=== PATIENT | male | born 1950 | race Caucasian/White ===

== ENCOUNTER → 2022-10-07 08:53 | Outpatient (BNVA) | payer MEDICARE, SELFPAY | PROVIDERS: PCP Internal Medicine; Visit Provider Orthopaedic Surgery | DX: M54.50 Low back pain, unspecified (principal) | CPT/HCPCS: 99212 ==

== ENCOUNTER 2022-11-15 12:48 | Outpatient (AMB) | payer MEDICARE, SELFPAY ==
--- NOTE | 2022-11-15 13:08 | HO.SPINEOV ---
Intake Intake Visit Reasons: leg pain Intake Note: Mr. Thompson is here today c/o leg pain. MRI done @ [facility]. Supervisor Glycerin Required: No Allergies No Known Allergies Allergy (Verified 10/07/22 09:07) Assessment & Plan Assessment & Plan (1) Low back pain: Code(s): M54.50 - Low back pain, unspecified Plan Dear Dr Gutierres, Thank you for referring Mr Thompson to our office today. This is a very nice 72-year-old diabetic gentleman with heart transplant, complicated medical history including recent surgery on a nonhealing ulcer on his left foot with partial osteotomy, recent DVT on Eliquis who had a previous L4-5 decompression with Coflex device [place] [address] Mckeon. He had reasonably good results for about a year or more until in the last year so he started to develop progressive back pain going down both legs, left greater than right with standing and walking. He has an overlapping diagnosis of severe neuropathy both axonal and sensory in his upper lower extremities any has baseline bilateral footdrop as well as diffuse weakness of the legs. The pain that he gets going down his legs is distinctly different than his neuropathy and only occurs when he is standing and walking. A follow-up MRI showed that he has recurrent stenosis at L4-5 with spondylolisthesis and progression of/worsening of facet arthropathy at L4-5 despite the CoFlex device. He came today to see us for evaluation. The patient also reports numbness and neuropathy in his hands. He had a previous history of anterior cervical fusion done many years ago. He is also reporting worsening of the numbness of his hands as well as increased balance issues. PMH: As outlined above he is a fairly extensive history mostly relating to his diabetes, his A1c is currently around 9. He had recent debridement of nonhealing left foot ulcer which was infected. He was in the hospital on IV antibiotics for a few weeks, had the surgery and was subsequently discharged. He is no longer on antibiotics. He was diagnosed with a DVT in the left lower extremity back in August and remains on Eliquis for this. He has peripheral vascular disease and had an angioplasty back in August of 2022 as well. He had a previous history of coronary bypasses and heart attacks and that left him with significant dysfunction which ultimately led to his heart transplant at the [facility]. As mentioned he has had back surgery and neck surgery. He also has a history of hypertension. Social hx: Quit smoking in 1997 Medications: Amlodipine, Eliquis, duloxetine, fludrocortisone, gabapentin, insulin, lorazepam, mycophenolate, pantoprazole, prednisone, rosuvastatin, sucralfate, tack really miss and trazodone Allergies: None Physical exam: He has extensive weakness in his bilateral lower extremities. His left iliopsoas is about a 2/5, right iliopsoas is 3/5. Quadriceps are 4-5. He has no discernible function of his tibialis source gastrocnemius. Reflexes diffusely absent lower extremities. In his upper extremities he also has diffuse weakness in the proximal muscle groups in significant hand weakness which I would rate is 3/5 with atrophy of his hands. Imaging review: He has a lumbar MRI done at [facility] showing postoperative changes at L4-5 with significant facet arthropathy and degenerative spondylolisthesis with moderate to severe central canal stenosis. Impression: 72-year-old gentleman with complicated medical history including uncontrolled diabetes, heart transplant, significant diabetic neuropathies in the upper and lower extremities, previous L4-5 decompression with a Coflex device which appears to be failing and headache in their direction of instability based on the MRI showing increased facet arthropathy with ongoing spondylolisthesis with a patient who is demonstrating significant back pain going down both legs, left greater than right with standing and walking. His situation is difficult because of his medical issues. The nonhealing ulcer which was recently debrided is a concern given that any surgery we would consider would likely involve spinal fusion with instrumentation. He was recently in the hospital on IV antibiotics for this so we would like to give this some time to heal up before we consider offering surgery. He would also need to have some kind of medical clearance from his cardiac team at the [facility]. Also, he is complaining of some myelopathic symptoms and has significant weakness of his hands with a new feelings of gait imbalance. He has a previous history of ACDF so would like to get a cervical MRI to rule out that there is any residual stenosis. We will see him back in about 6 weeks to re-evaluate after the MRI is done. I will also get standing flexion-extension x-rays. Dr. Copeland saw the patient and agrees with the plan as outlined above. Thank you for allowing us to care for your patient. The total time spent with this visit with this patient was 60 minutes reviewing history, physical exam, lumbar MRI imaging review, and implementation of treatment plan or further diagnostic testing Abraham Copeland MD,PhD [facility] Orders: Orders XR lumbar spine 4V min Today M54.50 - Low back pain, unspecified Coding Level of Care Code New Pt Level 5 (50697) Diagnoses Low back pain M54.50
== END 2022-11-15 13:59 | disposition home or self-care (01) ==
PROVIDERS: PCP Internal Medicine; Visit Provider Physician Assistant
DX: M54.50 Low back pain, unspecified (principal)
CPT/HCPCS: 99205

== ENCOUNTER 2022-11-15 12:48 | Outpatient (REF) | payer MEDICARE, SELFPAY ==
--- NOTE | ~2022-11-15 | XR_ITS ---
EXAMINATION: XR LUMBOSACRAL SPINE WITH OBLIQUES CLINICAL INFORMATION: Low back pain COMPARISON: None available. TECHNIQUE: AP, and lateral views of the lumbar spine, flexion and extension. FINDINGS: Patient is status post placement of fixation device between spinal processes of L4 on L5. There is straightening of lumbar lordosis with grade 1 anterior listhesis of L4 over L5 and narrowing of T12-L1. On flexion and extension views there is no instability. Pedicles are preserved. Soft tissues are unremarkable. XR/XR lumbar spine 4V min IMPRESSION: Postsurgical changes at the level of L4-L5 with grade 1 anterolisthesis of L4 over L5.
== END 2022-11-15 12:49 | disposition home or self-care (01) ==
LOC: HO.HOSX 12:48
PROVIDERS: PCP Internal Medicine; Visit Provider Physician Assistant
DX: M54.50 Low back pain, unspecified (principal)
CPT/HCPCS: 72110; 99202

== ENCOUNTER 2022-12-23 13:41 | Outpatient (REF) | payer MEDICARE, SELFPAY ==
--- NOTE | ~2022-12-23 | MR_ITS ---
EXAMINATION: MR CERVICAL SPINE WITHOUT AND WITH CONTRAST CLINICAL INFORMATION: Neuropathy in hands and legs, neck cracks, symptoms for couple of years. COMPARISON: None available. TECHNIQUE: MRI of the cervical spine was obtained using routine sequences with and without contrast. Intravenous contrast: Gadavist 10 mL. FINDINGS: The visualized posterior fossa is unremarkable. Preservation of the normal cervical lordosis. Trace retrolisthesis at C6-C7 and minimal grade 1 anterolisthesis at C4-C5. Sequelae of anterior spinal fixation at C3-C4 with associated susceptibility artifact slightly limiting evaluation. No abnormal bone marrow signal or enhancement. The remaining vertebral body heights are preserved. Multilevel disc desiccation without significant disc height loss. The spinal cord is normal in caliber. No abnormal cord signal. No intramedullary enhancement. C2-C3: Disc osteophyte complex and bilateral facet arthrosis. No significant spinal canal or neural foraminal narrowing. C3-C4: Disc osteophyte complex, bilateral uncovertebral hypertrophy, and bilateral facet arthrosis. Mild left neural foraminal narrowing. Patent spinal canal. C4-C5: Disc osteophyte complex, bilateral uncovertebral hypertrophy, and bilateral facet arthrosis. No significant spinal canal stenosis. Mild right neural foraminal narrowing. C5-C6: Disc osteophyte complex with superimposed central disc protrusion with mass effect on the cord. No significant spinal canal stenosis or neural foraminal narrowing. C6-C7: Disc osteophyte complex, bilateral uncovertebral hypertrophy, and bilateral facet arthrosis. No significant spinal canal stenosis. Mild left neural foraminal narrowing. C7-T1: No significant spinal canal or neural foraminal narrowing. The paravertebral soft tissues are unremarkable. The visualized lung apices are clear. MR/MR cervical spine wo/w con IMPRESSION: Sequelae of C3-C4 ACDF with patent spinal canal at this level. There is a disc osteophyte complex at C5-C6 with central disc protrusion causing mass effect on the cord at this level. Mild neural foraminal narrowing is identified at C3-C4 and the left, C4-C5 on the right, and C6-C7 on the left.
[2022-12-23] MEDS: gadobutroL 10 ML VIAL IVPUSH (15:18)
== END 2022-12-23 13:42 | disposition home or self-care (01) ==
LOC: HO.MRI 13:41
PROVIDERS: PCP Internal Medicine; Visit Provider Physician Assistant
DX: G95.9 Disease of spinal cord, unspecified (principal)
CPT/HCPCS: 72156; A9585

== ENCOUNTER 2022-12-27 13:27 | Outpatient (AMB) | payer MEDICARE, SELFPAY ==
--- NOTE | 2022-12-27 13:34 | A.SPINEOV_ITS ---
Intake Intake Visit Reasons: 6 weeks f/up MRI Intake Note: Mr. Thompson is here today for a 6wk follow up and discuss MRI results. Allergist Required: No Allergies No Known Allergies Allergy (Verified 10/07/22 09:07) Assessment & Plan Assessment & Plan (1) Low back pain: Code(s): M54.50 - Low back pain, unspecified (2) Lumbar stenosis: Code(s): M48.061 - Spinal stenosis, lumbar region without neurogenic claudication Plan Mr Thompson is here in follow-up today. Please see my previous note for the specifics of his problem. He underwent a cervical MRI and this is not show any residual spinal cord compression so we have ruled out myelopathy. In terms of his gait and difficulty standing and walking with neurogenic symptoms going down his legs, we have established that he has residual stenosis at L4-5 despite the CoFlex device and his x-ray shows suggestions of instability with standing. Typically this is a patient that Dr. Copeland would offer intervention, usually L4-5 OLIF versus trans Kambin approach. However, I have reservations about his medical history. Since the last time we met, he tells me that he has been cleared from the vascular surgery standpoint with the nonhealing ulcer on his left foot. I looked at it today and it does look for the part most part healed. There are no signs of infection, redness or any pain around the area. With regard to the DVT and the Eliquis, he tells me that his PCP Dr. Chen has taken him off Eliquis because he has been treated for 3 months for the DVT. The only blood thinner he is currently on his Plavix, and he is on that for preventative purposes for his peripheral vascular disease. He did have an angioplasty back in August but did not have a stent. I told him that in order for us to do surgery he would have to be off that 7-10 days as well as a period of time after surgery. Obviously, we would keep him on his heart transplant medicines, so this would potentially increase his risk for infection. I will need to discuss the situation with Dr. Copeland again to see if he is willing to take on this case given all the peripheral medical issues. Once I hear back from Dr. Copeland and have a chance to review the films I will call the patient to finalize a plan. Total amount of time spent in this visit was 20 minutes in discussion of symptoms, lumbar imaging results and subsequent plan of care Abraham Copeland MD,PhD [facility] Coding Level of Care Code Est Pt Level 3 (80343) Diagnoses Low back pain M54.50 Lumbar stenosis M48.061
== END 2022-12-27 14:46 | disposition home or self-care (01) ==
PROVIDERS: PCP Internal Medicine; Visit Provider Physician Assistant
DX: M54.50 Low back pain, unspecified (principal); M48.061 Spinal stenosis, lumbar region without neurogenic claudication
CPT/HCPCS: 99213

== ENCOUNTER → 2022-12-27 13:27 | Outpatient (BNVA) | payer MEDICARE, SELFPAY | PROVIDERS: PCP Internal Medicine; Visit Provider Physician Assistant | DX: M48.061 Spinal stenosis, lumbar region without neurogenic claudication (principal); M54.50 Low back pain, unspecified | CPT/HCPCS: 99212 ==

== ENCOUNTER 2023-01-06 10:58 | Outpatient (REF) | payer MEDICARE, SELFPAY ==
[2023-01-06 12:15] LABS: Estimated Average Glucose 137 mg/dL; Hemoglobin A1C 129.8015 umol/L; Hemoglobin A1c % 6.4 % (<6.0)
== END 2023-01-06 10:59 | disposition home or self-care (01) ==
LOC: HO.LAB 10:58
PROVIDERS: PCP Internal Medicine; Visit Provider Physician Assistant
DX: E11.9 Type 2 diabetes mellitus without complications (principal)
CPT/HCPCS: 36415; 83036

== ENCOUNTER 2023-01-27 07:35 | Outpatient (AMB) | payer MEDICARE, SELFPAY ==
--- NOTE | 2023-01-27 07:49 | MHC.OFFVIS ---
Intake Intake Visit Reasons: Pre-Rt Shld Intake Note: Mr. Thompson presents with complaints of progressively worsening right shoulder pain. He describes his pain as sharp in nature. He denies any weakness. Most of the pain is along the lateral and superior aspects of his shoulder. His pain has gotten worse over the last few years in spite of continued non operative treatments. He has done physical therapy for 12 weeks over the last 6 months which aggravated his pain. He has also tried Tylenol which gives him minimal relief. He is not able to take anti-inflammatory medicines. He has had injections which gave him only temporary relief. Allergies No Known Allergies Allergy (Verified 10/07/22 09:07) Medication List - Last Reconciled 01/27/23 by Nirmal Gutierres MD amlodipine 5 mg PO DAILY apixaban (Eliquis) 5 mg PO BID duloxetine 20 mg PO BID fludrocortisone 0.1 mg PO DAILY gabapentin 300 mg PO TID insulin lispro (Humalog U-100 Insulin) subcut lorazepam (Ativan) 1 mg PO TID PRN mycophenolate sodium 720 mg PO BID pantoprazole 40 mg PO BID pen needle, diabetic (BD Ultra-Fine Short Pen Needle) As directed prednisone 5 mg PO DAILY rosuvastatin 20 mg PO BEDTIME sucralfate 1 g PO BID tacrolimus 2 mg PO BID trazodone 200 mg PO BEDTIME PRN PFSH Medical History (Updated 01/27/23 @ 07:49 by Nirmal Gutierres MD) Hx of deep venous thrombosis Immune disorder High cholesterol High blood pressure Acid reflux Surgical History (Updated 10/07/22 @ 09:10 by PEARL Bates) Hx of heart transplant Social History (Updated 10/07/22 @ 09:11 by PEARL Bates) Current occupational status: disabled 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 Physical Exam Const Other: Well-nourished well-developed very friendly male awake alert and oriented x3 in no acute distress Lungs - clear to auscultation bilaterally with symmetric expansion Cardiovascular exam - regular rate and rhythm Abdominal exam - soft nontender nondistended Extrem Other: Bilateral upper extremity examination shows good capillary refill, no skin lesions noted, normal sensation light touch Right shoulder examination shows decreased range of motion when compared to his left shoulder, 4+ out of 5 strength with supraspinatus testing, positive impingement signs, tenderness over his acromioclavicular joint, no instability Results Reviewed Results Reviewed: X-rays of the patient's right shoulder show severe acromioclavicular joint narrowing, a type 3 acromion, no acute bony abnormalities MRI of the patient's right shoulder show severe acromioclavicular joint narrowing, a type 3 acromion, signal change within the supraspinatus tendon due to rotator cuff tendinosis versus a small full-thickness tear Assessment & Plan Assessment & Plan (1) Impingement of right shoulder: Code(s): M25.811 - Other specified joint disorders, right shoulder Plan Mr. Thompson presents with right shoulder pain due to impingement syndrome, acromioclavicular joint arthritis and rotator cuff tendinosis versus a small tear. I had a lengthy discussion with the patient regarding the treatment options. At this point he has failed continued non operative treatments. The risks and benefits of right shoulder surgery were discussed at length with the patient. The patient wishes to proceed with surgery. Surgery will most likely involve right shoulder diagnostic arthroscopy with distal clavicle excision and acromioplasty. The patient will be given a prescription for pain medicine at the time of his surgery. He will follow-up as instructed. Feel free to call me at any time should questions regarding his orthopedic management arise. I spent 22 minutes in reviewing the patient's records and imaging studies, seeing the patient and documenting in the medical record. Coding Level of Care Code Est Pt Level 2 (85909) Diagnoses Impingement of right shoulder M25.811
== END 2023-01-27 08:01 | disposition home or self-care (01) ==
PROVIDERS: PCP Internal Medicine; Visit Provider Orthopaedic Surgery
DX: M25.811 Other specified joint disorders, right shoulder (principal)
CPT/HCPCS: 99212

== ENCOUNTER → 2023-01-27 07:35 | Outpatient (BNVA) | payer MEDICARE, SELFPAY | PROVIDERS: PCP Internal Medicine; Visit Provider Orthopaedic Surgery | DX: M25.811 Other specified joint disorders, right shoulder (principal) | CPT/HCPCS: 99212 ==

== ENCOUNTER 2023-02-13 06:07 | Day surgery (SDC) | payer MEDICARE, SELFPAY ==
[2023-02-07 11:25] VITALS: BMI 33.2
--- NOTE | 2023-02-07 13:27 | P.CONAN_ITS ---
Documented by User: Maribell Nielsen NP 02/08/23 13:15 HPI - Anesthesia Eval Consult details Narrative: 72yo M for Right Shoulder Arthroscopy,distal clavical excision,acromialplasty,capsular release manipulation Heart transplant 2012 for ischemic cardiomyopathy. Cardiac optimized. Prednisone 5mg daily, prograf, myfortid for immunsuppression. Last cardiology office visit 11/2022. Cardiac stable. Low Mg, started on supplement. Follows vascular for LLE DVT and bilat LE wounds. Per , DVT resolved and off eliquis and LE wounds healed. Plavix for hx LLE DVT 08/2022 - ok to hold per cardiology Case reviewed with Dr Jordan and Dr Arreguin Anesthesia Pre-Procedure Meds Is the patient on any of the following meds?: Dulaglutide (Trulicity) (Last dose 02/05/23) PMFSH Active Problems Active Problems: All Active Problems (Updated 02/07/23 @ 11:41 by Alicia Donato RN) Impingement of right shoulder (Acute) Diabetes (Acute) Lumbar stenosis (Acute) Low back pain (Acute) Past Medical History Medical History (Updated 02/08/23 @ 13:14 by Maribell Nielsen NP) Cataract Amputation of toe Hx of thrombosis History of positive PPD Erosive gastropathy Colon polyp Erectile dysfunction Microscopic hematuria Immunosuppressed status Unsteady gait Ischemic cardiomyopathy DAY (generalized anxiety disorder) Dyslipidemia CHD (congenital heart disease) Amputated toe of left foot Chronic kidney disease Sleep apnea Headache Left foot drop Back pain Depression Osteopenia Dry eye Tremor Dysautonomia Insomnia Neck pain Presbyesophagus Esophageal dysmotility BPH (benign prostatic hyperplasia) Hyperparathyroidism Guillain-Kyburz syndrome Leukopenia Back pain Neuropathy PVD (peripheral vascular disease) Myocardial infarction Cellulitis History of COVID-19 Hx MRSA infection Diabetes Hx of deep venous thrombosis Immune disorder High cholesterol High blood pressure Acid reflux Surgical History Surgical History (Updated 02/08/23 @ 13:14 by Maribell Nielsen NP) Hx of squamous cell carcinoma excision Hx of cataract surgery Status post arterial stent History of esophagogastroduodenoscopy (EGD) H/O angioplasty AICD (automatic cardioverter/defibrillator) present History of lumbar fusion Hx of cervical spine surgery History of left ventricular assist device (LVAD) Hx of CABG Hx of heart transplant Social History Social History (Updated 10/07/22 @ 09:11 by PEARL Bates) Are you a primary rn progressive care unit to a significant other at home: No Do you presently have visiting nurse or other home services: No Patient Tobacco Use Status: Never used Tobacco Use of substances other than those prescribed or required for medical reasons: No Have you been hit, kicked, punched, or otherwise hurt by someone within the past year? 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 Meds Allergies Allergy/AdvReac Type Severity Reaction Status Date / Time No Known Allergies Allergy Verified 10/07/22 09:07 Active Medications: Current Medications Cefazolin Sodium/Dextrose (Ancef) 2 gm in 50 mls @ 100 mls/hr IV PREOP ONE Stop: 02/10/23 00:30 Home Medications Medication Instructions Recorded Confirmed Last Taken Type amlodipine 5 mg tablet 10 mg PO DAILY 10/07/22 02/07/23 02/13/23 History duloxetine 20 mg capsule,delayed 40 mg PO BEDTIME 10/07/22 02/07/23 Unknown History release fludrocortisone 0.1 mg tablet 0.1 mg PO DAILY 10/07/22 02/07/23 02/13/23 History gabapentin 300 mg capsule 300 mg PO TID 10/07/22 02/07/23 02/13/23 History insulin lispro 100 unit/mL subcut TID 10/07/22 01/27/23 Unknown History subcutaneous cartridge (Humalog U-100 Insulin) mycophenolate sodium 360 mg 360 mg PO BID 10/07/22 02/07/23 02/13/23 History tablet,delayed release pantoprazole 40 mg tablet,delayed 40 mg PO BID 10/07/22 02/07/23 02/13/23 History release pen needle, diabetic 31 gauge x #1,200 ea 10/07/22 01/27/23 Unknown History /16 (BD Ultra-Fine Short Pen Needle) prednisone 5 mg tablet 5 mg PO DAILY 10/07/22 02/07/23 02/13/23 History rosuvastatin 20 mg tablet 20 mg PO BEDTIME 10/07/22 02/07/23 Unknown History tacrolimus 1 mg capsule, 2 mg PO BID 10/07/22 02/07/23 Unknown History immediate-release trazodone 100 mg tablet 200 mg PO BEDTIME PRN Insomnia 10/07/22 02/07/23 Unknown History aspirin 81 mg tablet,delayed 81 mg PO DAILY 02/07/23 02/07/23 Unknown History release clopidogrel 75 mg tablet 75 mg PO DAILY 02/07/23 02/07/23 02/12/23 History dulaglutide 1.5 mg/0.5 mL 1.5 mg subcut QWEEK 02/07/23 02/07/23 02/05/23 History subcutaneous pen injector (Trulicity) insulin degludec 200 unit/mL (3 40 unit subcut BID 02/07/23 02/07/23 Unknown History mL) subcutaneous pen (Tresiba FlexTouch U-200 insulin) tacrolimus 0.5 mg capsule, 0.5 mg PO BEDTIME 02/07/23 02/07/23 02/13/23 History immediate-release valsartan 02/13/23 02/13/23 History Exam Exam Date and Time: February 07, 2023 1327 Height,Weight and Vital Signs: Height 5 ft 9 in Weight 102.058 kg Pertinent Lab Results Pertinent Lab Results: Labs from outside facility 11/28/22 Na 144 K 3.6 Cl 101 CO2 31 Bun 20 Creat 1.23 (H) Mg 1.5 (L) WBC 6.58 Hgb 11.6 (L) Hct 36.4 (L) Plt 151 A1C 6.6 on 01/16/23 per Endocrine office visit note Narrative Narrative: ECHO 12/2022 Nml LV size and systolic function. LVEF 60% Nml RV size and systolic function Unable to estimate PASP d/t insufficient tricuspid regurg EKG 11/2022 NSR @ 91 RBBB No significant change c/w 05/2022 Cardiac cath 2020 No significant angiographic epicardial coronary disease Mild paucity of LAD tertiary vessels with dimished flow velocity in the LAD during coronary angiography. There were transient ST segment elevations during the left coronary injections without any patient complaints of chest or back discomfort nor change in heart rate or blood pressure. Assessment and Plan Assessment Anesthesia Assessment: Chart Reviewed Documented by User: Kamar Diaz MD 02/13/23 09:33 HPI - Anesthesia Eval Anesthesia Pre-Procedure Meds If Yes to any meds - educate patient: Pt education - increased risk of aspiration PMFSH Past Medical History Medical History (Updated 02/08/23 @ 13:14 by Maribell Nielsen NP) Cataract Amputation of toe Hx of thrombosis History of positive PPD Erosive gastropathy Colon polyp Erectile dysfunction Microscopic hematuria Immunosuppressed status Unsteady gait Ischemic cardiomyopathy DAY (generalized anxiety disorder) Dyslipidemia CHD (congenital heart disease) Amputated toe of left foot Chronic kidney disease Sleep apnea Headache Left foot drop Back pain Depression Osteopenia Dry eye Tremor Dysautonomia Insomnia Neck pain Presbyesophagus Esophageal dysmotility BPH (benign prostatic hyperplasia) Hyperparathyroidism Guillain-Kyburz syndrome Leukopenia Back pain Neuropathy PVD (peripheral vascular disease) Myocardial infarction Cellulitis History of COVID-19 Hx MRSA infection Diabetes Hx of deep venous thrombosis Immune disorder High cholesterol High blood pressure Acid reflux Family History Family history of problems with anesthesia: No Surgical History Surgical History (Updated 02/08/23 @ 13:14 by Maribell Nielsen NP) Hx of squamous cell carcinoma excision Hx of cataract surgery Status post arterial stent History of esophagogastroduodenoscopy (EGD) H/O angioplasty AICD (automatic cardioverter/defibrillator) present History of lumbar fusion Hx of cervical spine surgery History of left ventricular assist device (LVAD) Hx of CABG Hx of heart transplant History of Problems with Anesthesia: No Social History Social History (Updated 10/07/22 @ 09:11 by PEARL Bates) Are you a primary rn progressive care unit to a significant other at home: No Do you presently have visiting nurse or other home services: No Patient Tobacco Use Status: Never used Tobacco Use of substances other than those prescribed or required for medical reasons: No Have you been hit, kicked, punched, or otherwise hurt by someone within the past year? 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 Meds Allergies Allergy/AdvReac Type Severity Reaction Status Date / Time No Known Allergies Allergy Verified 10/07/22 09:07 Home Medications Medication Instructions Recorded Confirmed Last Taken Type amlodipine 5 mg tablet 10 mg PO DAILY 10/07/22 02/07/23 02/13/23 History duloxetine 20 mg capsule,delayed 40 mg PO BEDTIME 10/07/22 02/07/23 Unknown History release fludrocortisone 0.1 mg tablet 0.1 mg PO DAILY 10/07/22 02/07/23 02/13/23 History gabapentin 300 mg capsule 300 mg PO TID 10/07/22 02/07/23 02/13/23 History insulin lispro 100 unit/mL subcut TID 10/07/22 01/27/23 Unknown History subcutaneous cartridge (Humalog U-100 Insulin) mycophenolate sodium 360 mg 360 mg PO BID 10/07/22 02/07/23 02/13/23 History tablet,delayed release pantoprazole 40 mg tablet,delayed 40 mg PO BID 10/07/22 02/07/23 02/13/23 History release pen needle, diabetic 31 gauge x #1,200 ea 10/07/22 01/27/23 Unknown History 5/16 (BD Ultra-Fine Short Pen Needle) prednisone 5 mg tablet 5 mg PO DAILY 10/07/22 02/07/23 02/13/23 History rosuvastatin 20 mg tablet 20 mg PO BEDTIME 10/07/22 02/07/23 Unknown History tacrolimus 1 mg capsule, 2 mg PO BID 10/07/22 02/07/23 Unknown History immediate-release trazodone 100 mg tablet 200 mg PO BEDTIME PRN Insomnia 10/07/22 02/07/23 Unknown History aspirin 81 mg tablet,delayed 81 mg PO DAILY 02/07/23 02/07/23 Unknown History release clopidogrel 75 mg tablet 75 mg PO DAILY 02/07/23 02/07/23 02/12/23 History dulaglutide 1.5 mg/0.5 mL 1.5 mg subcut QWEEK 1002/07/23 02/05/23 History subcutaneous pen injector (Trulicity) insulin degludec 200 unit/mL (3 40 unit subcut BID 02/07/23 02/07/23 Unknown History mL) subcutaneous pen (Tresiba FlexTouch U-200 insulin) tacrolimus 0.5 mg capsule, 0.5 mg PO BEDTIME 02/07/23 02/07/23 02/13/23 History immediate-release valsartan 02/13/23 02/13/23 History Exam Airway Mallampati Class: II TM Dist: <=3cm Neck ROM: Full Denture: Upper and Lower Heart: ok. see above Lungs: ok Assessment and Plan Assessment Anesthesia Assessment: Anesthesia Plan Discussed Final Anesthetic Review Family History of Problems with Anesthesia: No History of Problems with Anesthesia: No NPO: Yes ASA Class: IV Final Preanesthetic Review: No Changes in Pt Med Stat, Meds/Allgs Chart Reviewed, Consent Obtained/Reviewed and Anes Risks/Benef Reviewed Patient Risk: High Procedure Risk: Intermediate Anesthetic Plan Anesthetic Plan: GA, Regional Block and Agree w/ Assess. and Plan Disposition: Standard PACU
[2023-02-13] VITALS (13 sets, daily range): BP systolic 109–156; BP diastolic 58–88; PULSE 84–96; RESP 15–18; TEMP 36.2–37.1; O2SAT 92–98
[2023-02-13 06:33] LABS: Hematocrit 39.4 % (42.0-52.0); Hemoglobin 12.5 g/dl (14.0-18.0); Mean Corpuscular HGB Conc 31.7 g/dl (31.0-36.0); Mean Corpuscular Hemoglobin 26.5 pg (27.0-33.0); Mean Corpuscular Volume 83.5 fL (80.0-98.0); Mean Platelet Volume 9.2 fL (9.4-12.4); Platelet Count 149 X10*3/uL (160-400); Red Blood Count 4.72 X10*6/uL (4.60-5.80); Red Cell Distribution Width 15.7 % (11.0-16.0); White Blood Count 6.3 X10*3/uL (4.8-10.8)
[2023-02-13 06:51] LABS: Anion Gap 15 (12-20); Blood Urea Nitrogen 17 mg/dL (9-16); Calcium 9.1 mg/dL (8.4-10.2); Carbon Dioxide 31 mmol/L (22-29); Chloride 102 mmol/L (96-108); Creatinine Clr Calc Pharmacy 68.7; Estimated Glomerular Filt Rate > 60; Glucose Fasting 118 mg/dL (60-99); Potassium 3.3 mmol/L (3.3-5.1); Sodium 145 mmol/L (135-145)
[2023-02-13] MEDS: Lactated Ringers 1,000 ML 100 ML IVCONT (06:51)
--- NOTE | 2023-02-13 09:46 | P.BOP_ITS ---
Brief Operative Note Date of Service: 02/13/23 Pre-op diagnosis: Right shoulder acromioclavicular joint arthritis, right shoulder impingement syndrome, right shoulder adhesive capsulitis Post-op diagnosis: same Procedure: Right shoulder diagnostic arthroscopy with right shoulder arthroscopic distal clavicle excision, right shoulder arthroscopic acromioplasty, right shoulder arthroscopic anterior capsular release, right shoulder manipulation under anesthesia Implants: none Surgeon: Nirmal Gutierres MD Anesthesia: GLMA and regional Was an Destination Specialist used for this Procedure?: No Estimated blood loss (mL): 10 Pathology: none sent Condition: stable Disposition: PACU
--- NOTE | 2023-02-13 09:48 | P.OP_ITS ---
Operative Note Operative Note Date of Service: 02/13/23 Narrative: After the patient was identified as Tony Thompson and their right shoulder was initialed by myself the patient was brought to the holding area where a right shoulder interscalene regional block was performed by the anesthesiologist in routine fashion. The patient was then brought to the operating room where general anesthesia was induced by the anesthesiologist in routine fashion. The patient was given 2 g of IV Ancef preoperatively for infection prophylaxis. Examination under anesthesia of the patient's right shoulder showed decreased passive range of motion when compared to the left shoulder. The patient's right shoulder had passive forward flexion to 110 degrees compared to 170 degrees, external rotation to 30 degrees compared to 60 degrees, and internal rotation to 40 degrees compared to 50 degrees. The patient was gently positioned in the beach chair position with all bony prominences well padded. The patient's right shoulder region and upper extremity were prepped and draped in sterile fashion. A formal time-out was completed. A #11 scalpel blade was used to make a posterior portal 2 cm inferior and 1 cm medial to the posterolateral corner of the acromion. Blunt trocar technique was used to enter the glenohumeral joint in routine fashion. An anterior portal was made just lateral to the coracoid process after proper positioning was confirmed using a spinal needle. Diagnostic arthroscopy showed minimal degenerative changes of the glenoid and humeral head articular surfaces. There was no evidence of rotator cuff tearing. There was no evidence of injury to the biceps tendon or its insertion onto the glenoid. There was inflammation of the anterior joint capsule consistent with adhesive capsulitis. The ArthroCare Wand was then used to perform an anterior capsular release between the inferior border of the biceps tendon and the superior border of the subscapularis tendon. The arthroscope was then placed from the posterior portal into the subacromial space. A lateral portal was made 2 fingerbreadths lateral to the anterior lateral corner of the acromion. The ArthroCare Wand was used to ablate soft tissues along the undersurface of the acromion as well as to excise the coracoacromial ligament. There was a sharp spur along the undersurface of the acromion which was removed using the hooded bur. The arthroscope was then placed into the lateral portal and the acromiop lasty was completed with the bur in the posterior portal using the posterior aspect of the acromion as a cutting block. The ArthroCare Wand was then brought in through the anterior portal and was used to ablate soft tissues along the acromioclavicular joint and distal clavicle. The posterior and superior ligamentous structures were left intact. A distal clavicle excision of 8 mm was performed using the fluted bur. Any remaining bursal tissue was removed using the arthroscopic shaver. The subacromial space was irrigated and then drained. All arthroscopic instruments were removed. A gentle manipulation under anesthesia was then performed. Full passive range of motion was easily obtained. The 3 portals were closed with 3-0 nylon interrupted suture. The subacromial space was injected with Marcaine. Dry sterile dressing was placed over all incisions. The patient's right upper extremity was placed into a sling. The patient was awoken and extubated in the operating room. The patient was transferred to the recovery room in stable condition.
[2023-02-13] MEDS: cefTRIAXone sodium 1 GM in 0.9 % Sodium Chloride 50 ML IV (10:58)
== END 2023-02-13 13:58 | disposition home or self-care (01) ==
PROVIDERS: Anesthesiology; PCP Internal Medicine; Visit Provider Orthopaedic Surgery
PROC: (CPT 29805; principal; 2023-02-13 07:30)
DX: M75.01 Adhesive capsulitis of right shoulder (principal); M19.011 Primary osteoarthritis, right shoulder; M75.41 Impingement syndrome of right shoulder; E11.22 Type 2 diabetes mellitus with diabetic chronic kidney disease; I13.0 Hypertensive heart and chronic kidney disease with heart failure and stage 1 through stage 4 chronic kidney disease, or unspecified chronic kidney disease; N18.30 Chronic kidney disease, stage 3 unspecified; I50.9 Heart failure, unspecified; E78.5 Hyperlipidemia, unspecified; G47.30 Sleep apnea, unspecified; K21.9 Gastro-esophageal reflux disease without esophagitis; I25.2 Old myocardial infarction; Z95.1 Presence of aortocoronary bypass graft; Z95.810 Presence of automatic (implantable) cardiac defibrillator; Z86.718 Personal history of other venous thrombosis and embolism; Z86.14 Personal history of Methicillin resistant Staphylococcus aureus infection; Z79.01 Long term (current) use of anticoagulants; Z79.4 Long term (current) use of insulin; Z79.899 Other long term (current) drug therapy; Z79.82 Long term (current) use of aspirin
CPT/HCPCS: 29824; 29825; 29826; 36415; 80048; 85027; J0171; J0690; J0696; J2371; J2795; J3010

== ENCOUNTER → 2023-02-13 06:07 | Outpatient (BNV) | payer MEDICARE, SELFPAY | PROVIDERS: PCP Internal Medicine; Visit Provider Orthopaedic Surgery | DX: M75.41 Impingement syndrome of right shoulder (principal) | CPT/HCPCS: 29824; 29825; 29826 ==

== ENCOUNTER 2023-02-23 11:57 | Outpatient (REF) | payer MEDICARE, SELFPAY ==
--- NOTE | ~2023-02-23 | XR_ITS ---
EXAMINATION: XR SHOULDER, RIGHT CLINICAL INFORMATION: Pain in right shoulder COMPARISON: None available. TECHNIQUE: AP and transscapular Y views only of the right shoulder. FINDINGS: Widening of the acromioclavicular interval measuring 15 mm. There are is mild hypertrophic change at the acromioclavicular joint. Glenohumeral alignment is preserved. Faint calcification lateral to the acromion. Dextroscoliosis in the imaged upper thoracic spine with degenerative changes. 2 punctate radiodensities in the upper right paramediastinal region, possibly external to the patient of indeterminate etiology. Dedicated views of the chest recommended for further evaluation. XR/XR shoulder RT min 2V IMPRESSION: Degenerative changes right shoulder. 2 punctate radiodensities in the upper right paramediastinal region, possibly external to the patient of indeterminate etiology. Dedicated views of the chest recommended for further evaluation.
== END 2023-02-23 11:58 | disposition home or self-care (01) ==
LOC: HO.HOSX 11:57
PROVIDERS: Visit Provider Orthopaedic Surgery
DX: M25.511 Pain in right shoulder (principal); Z47.89 Encounter for other orthopedic aftercare; Z79.899 Other long term (current) drug therapy; Z98.890 Other specified postprocedural states
CPT/HCPCS: 73030; 99212

== ENCOUNTER 2023-02-23 12:51 | Outpatient (AMB) | payer MEDICARE, SELFPAY ==
--- NOTE | 2023-02-23 12:55 | MHC.OFFVIS ---
Intake Intake Visit Reasons: PO-Rt Shld 02/13 DR Intake Note: Tony 72 yr old male presents today for his P/O visit for his right shoulder from DOS 02/[address] Gutierres. States he has mild pain and discomfort. He denies any fevers or chills. He continues with his range of motion exercises. Allergies No Known Allergies Allergy (Verified 02/23/23 13:04) Medication List - Last Reconciled 02/23/23 by Nirmal Gutierres MD amlodipine 10 mg PO DAILY aspirin 81 mg PO DAILY clopidogrel 75 mg PO DAILY dulaglutide (Trulicity) 1.5 mg subcut QWEEK duloxetine 40 mg PO BEDTIME fludrocortisone 0.1 mg PO DAILY gabapentin 300 mg PO TID insulin degludec (Tresiba FlexTouch U-200 insulin) 40 units subcut BID insulin lispro (Humalog U-100 Insulin) subcut TID morphine ER (MS Contin) 15 mg PO Q12H mycophenolate sodium 360 mg PO BID oxycodone 10 mg (2 x 5 mg) PO Q4H PRN pantoprazole 40 mg PO BID pen needle, diabetic (BD Ultra-Fine Short Pen Needle) As directed prednisone 5 mg PO DAILY rosuvastatin 20 mg PO BEDTIME tacrolimus 0.5 mg PO BEDTIME tacrolimus 2 mg PO BID trazodone 200 mg PO BEDTIME PRN [valsartan ] PFSH Medical History Cataract Amputation of toe Hx of thrombosis History of positive PPD Erosive gastropathy Colon polyp Erectile dysfunction Microscopic hematuria Immunosuppressed status Unsteady gait Ischemic cardiomyopathy DAY (generalized anxiety disorder) Dyslipidemia CHD (congenital heart disease) Amputated toe of left foot Chronic kidney disease Sleep apnea Headache Left foot drop Back pain Depression Osteopenia Dry eye Tremor Dysautonomia Insomnia Neck pain Presbyesophagus Esophageal dysmotility BPH (benign prostatic hyperplasia) Hyperparathyroidism Guillain-Hernando syndrome Leukopenia Back pain Neuropathy PVD (peripheral vascular disease) Myocardial infarction Cellulitis History of COVID-19 Hx MRSA infection Diabetes Hx of deep venous thrombosis Immune disorder High cholesterol High blood pressure Acid reflux Surgical History Hx of squamous cell carcinoma excision Hx of cataract surgery Status post arterial stent History of esophagogastroduodenoscopy (EGD) H/O angioplasty AICD (automatic cardioverter/defibrillator) present History of lumbar fusion Hx of cervical spine surgery History of left ventricular assist device (LVAD) Hx of CABG Hx of heart transplant Social History Are you a primary career and guidance counselor to a significant other at home: No Do you presently have visiting nurse or other home services: No Patient Tobacco Use Status: Never used Tobacco Current occupational status: disabled 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 Thompson is doing well after undergoing right shoulder arthroscopic surgery on 02/13/2023. His sutures were removed and Steri-Strips placed over his incisions. He will continue with his home stretching program. He does not wish to go to formal physical therapy. The do's and don'ts of lifting were discussed at length with the patient. He will contact me prior to his follow-up appointment in 6 weeks should any questions or concerns arise. Feel free to call me at any time should questions regarding his orthopedic management arise. Plan Mr. Thompson Orders: Orders XR shoulder RT min 2V Today M25.511 - Pain in right shoulder Coding Level of Care Code Global (06559) Diagnoses Right shoulder pain M25.511
== END 2023-02-23 13:24 | disposition home or self-care (01) ==
PROVIDERS: PCP Internal Medicine; Visit Provider Orthopaedic Surgery
DX: M25.511 Pain in right shoulder (principal)
CPT/HCPCS: 99024

== ENCOUNTER 2023-04-03 12:21 | Outpatient (AMB) | payer MEDICARE, SELFPAY ==
--- NOTE | 2023-04-03 12:27 | MHC.OFFVIS ---
Intake Intake Visit Reasons: PO-Right Shld 02/13 with Xray Intake Note: Tony 72 yr old male presents today for his P/O visit for his right shoulder from DOS 02/[address] Gutierres. He reports moderate discomfort in his right shoulder. He denies any fevers or chills. He states that approximately 1 week ago he was reaching for an object with his right arm when he had increased discomfort along the superior aspect of his shoulder. He denies any fevers or chills. Allergies No Known Allergies Allergy (Verified 04/03/23 12:32) Medication List - Last Reconciled 04/03/23 by Nirmal Gutierres MD amlodipine 10 mg PO DAILY aspirin 81 mg PO DAILY clopidogrel 75 mg PO DAILY dulaglutide (Trulicity) 1.5 mg subcut QWEEK duloxetine 40 mg PO BEDTIME fludrocortisone 0.1 mg PO DAILY gabapentin 300 mg PO TID insulin degludec (Tresiba FlexTouch U-200 insulin) 25 units subcut BID insulin lispro (Humalog U-100 Insulin) 10 - 20 units subcut TIDAC mycophenolate sodium 360 mg PO BID oxycodone 10 mg (2 x 5 mg) PO Q4H PRN pantoprazole 40 mg PO BID pen needle, diabetic (BD Ultra-Fine Short Pen Needle) As directed prednisone 5 mg PO DAILY rosuvastatin 20 mg PO BEDTIME tacrolimus 0.5 mg PO BEDTIME tacrolimus 2 mg PO BID trazodone 200 mg PO BEDTIME PRN valsartan 160 mg PO DAILY PFSH Medical History (Updated 02/27/23 @ 11:53 by Brandi Scott RN) Cataract Amputation of toe Hx of thrombosis History of positive PPD Erosive gastropathy Colon polyp Erectile dysfunction Microscopic hematuria Immunosuppressed status Unsteady gait Ischemic cardiomyopathy ADY (generalized anxiety disorder) Dyslipidemia CHD (congenital heart disease) Chronic kidney disease Sleep apnea Headache Left foot drop Back pain Depression Osteopenia Dry eye Tremor Dysautonomia Insomnia Neck pain Presbyesophagus Esophageal dysmotility BPH (benign prostatic hyperplasia) Hyperparathyroidism Guillain-[place] syndrome Leukopenia Neuropathy PVD (peripheral vascular disease) Myocardial infarction Cellulitis History of COVID-19 Hx MRSA infection Diabetes Hx of deep venous thrombosis Immune disorder High cholesterol High blood pressure Acid reflux Surgical History (Updated 02/27/23 @ 11:40 by Brandi Scott RN) Hx of shoulder surgery Hx of squamous cell carcinoma excision Hx of cataract surgery Status post arterial stent History of esophagogastroduodenoscopy (EGD) H/O angioplasty AICD (automatic cardioverter/defibrillator) present History of lumbar fusion Hx of cervical spine surgery History of left ventricular assist device (LVAD) Hx of CABG Hx of heart transplant Social History Are you a primary healthcare recruiter to a significant other at home: No Do you presently have visiting nurse or other home services: No Patient Tobacco Use Status: Former Tobacco user Quit Date: 1997 Tobacco use type: Cigarette Current occupational status: disabled 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 Thompson continues to do fairly well after undergoing right shoulder arthroscopic surgery on 02/13/2023. He does remain somewhat stiff. He will continue with his home physical therapy exercises. I discussed with the patient the fact that his discomfort should continue to improve over the next few months. He will contact me prior to his follow-up appointment in 2 months should any questions or concerns arise. Feel free to call me at any time should questions regarding his orthopedic management arise. The Coding Level of Care Code Global (98569) Diagnoses Right shoulder pain M25.511
== END 2023-04-03 13:01 | disposition home or self-care (01) ==
PROVIDERS: PCP Internal Medicine; Visit Provider Orthopaedic Surgery
DX: M25.511 Pain in right shoulder (principal)
CPT/HCPCS: 99024

== ENCOUNTER → 2023-04-03 12:21 | Outpatient (BNVA) | payer MEDICARE, SELFPAY | PROVIDERS: PCP Internal Medicine; Visit Provider Orthopaedic Surgery | DX: M25.511 Pain in right shoulder (principal) | CPT/HCPCS: 99212 ==

== ENCOUNTER 2023-05-15 08:38 | Inpatient (IN) | payer MEDICARE, SELFPAY ==
[2023-02-27 11:47] VITALS: BP 124/62; PULSE 92; RESP 20; O2SAT 98; BMI 34.0
--- NOTE | 2023-02-27 12:03 | HO.ANESPROP2 ---
HPI - Anesthesia Eval Consult details Narrative: Rescheduled to 04/2022 72yo M for?L4-5, OLIF (Transkambin Lumbar Interbody Fusion) s/p Right Shoulder Arthroscopy, etc 01/2023 with GA-ETT and block Heart transplant 2012 for ischemic cardiomyopathy. Cardiac optimized. Prednisone 5mg daily, prograf, myfortid for immunsuppression. Last cardiology office visit 11/2022. Cardiac stable. Low Mg, started on supplement. Follows vascular for LLE DVT and bilat LE wounds. DVT resolved and off eliquis and LE wounds healed. Plavix for hx LLE DVT 08/2022 - ok to hold per cardiology Slight congestion with rare cough No CP/SOB with very minimal activity d/t LE pain FBS ~ 100 ARNULFO but pt denies Anesthesia Pre-Procedure Meds Is the patient on any of the following meds?: Dulaglutide (Trulicity) (Planned last dose 03/05/23) If Yes to any meds - educate patient: Pt education - increased risk of aspiration and Pt education - possibility of cancelled proc at provider's discretion PMFSH Active Problems Active Problems: All Active Problems (Updated 02/27/23 @ 11:53 by Brandi Scott RN) Right shoulder pain (Acute) Impingement of right shoulder (Acute) Diabetes (Acute) Lumbar stenosis (Acute) Low back pain (Acute) Past Medical History Medical History (Updated 02/27/23 @ 11:53 by Brandi Scott RN) Cataract Amputation of toe Hx of thrombosis History of positive PPD Erosive gastropathy Colon polyp Erectile dysfunction Microscopic hematuria Immunosuppressed status Unsteady gait Ischemic cardiomyopathy DAY (generalized anxiety disorder) Dyslipidemia CHD (congenital heart disease) Chronic kidney disease Sleep apnea Headache Left foot drop Back pain Depression Osteopenia Dry eye Tremor Dysautonomia Insomnia Neck pain Presbyesophagus Esophageal dysmotility BPH (benign prostatic hyperplasia) Hyperparathyroidism Guillain-[place] syndrome Leukopenia Neuropathy PVD (peripheral vascular disease) Myocardial infarction Cellulitis History of COVID-19 Hx MRSA infection Diabetes Hx of deep venous thrombosis Immune disorder High cholesterol High blood pressure Acid reflux Family History Family history of problems with anesthesia: No Surgical History Surgical History (Updated 02/27/23 @ 11:40 by Brandi Scott RN) Hx of shoulder surgery Hx of squamous cell carcinoma excision Hx of cataract surgery Status post arterial stent History of esophagogastroduodenoscopy (EGD) H/O angioplasty AICD (automatic cardioverter/defibrillator) present History of lumbar fusion Hx of cervical spine surgery History of left ventricular assist device (LVAD) Hx of CABG Hx of heart transplant History of Problems with Anesthesia: No Social History Are you a primary career technical supervisor to a significant other at home: No Do you presently have visiting nurse or other home services: No Patient Tobacco Use Status: Former Tobacco user Quit Date: 1997 Tobacco use type: Cigarette Use of substances other than those prescribed or required for medical reasons: No Have you been hit, kicked, punched, or otherwise hurt by someone within the past year? 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 Meds Allergies Allergy/AdvReac Type Severity Reaction Status Date / Time No Known Allergies Allergy Verified 02/23/23 13:04 Home Medications Medication Instructions Recorded Confirmed Last Taken Type amlodipine 5 mg tablet 10 mg PO DAILY 10/07/22 02/27/23 02/13/23 History duloxetine 20 mg capsule,delayed 40 mg PO BEDTIME 10/07/22 02/27/23 Unknown History release fludrocortisone 0.1 mg tablet 0.1 mg PO DAILY 10/07/22 02/27/23 02/13/23 History gabapentin 300 mg capsule 300 mg PO TID 10/07/22 02/27/23 02/13/23 History insulin lispro 100 unit/mL 10 - 20 unit subcut TIDAC 10/07/22 02/27/23 Unknown History subcutaneous cartridge (Humalog U-100 Insulin) mycophenolate sodium 360 mg 360 mg PO BID 10/07/22 02/27/23 02/13/23 History tablet,delayed release pantoprazole 40 mg tablet,delayed 40 mg PO BID 10/07/22 02/27/23 02/13/23 History release pen needle, diabetic 31 gauge x #1,200 ea 10/07/22 02/23/23 Unknown History 5/16 (BD Ultra-Fine Short Pen Needle) prednisone 5 mg tablet 5 mg PO DAILY 10/07/22 02/27/23 02/13/23 History rosuvastatin 20 mg tablet 20 mg PO BEDTIME 10/07/22 02/27/23 Unknown History tacrolimus 1 mg capsule, 2 mg PO BID 10/07/22 02/27/23 Unknown History immediate-release trazodone 100 mg tablet 200 mg PO BEDTIME PRN Insomnia 10/07/22 02/27/23 Unknown History aspirin 81 mg tablet,delayed 81 mg PO DAILY 02/07/23 02/27/23 Unknown History release clopidogrel 75 mg tablet 75 mg PO DAILY 02/07/23 02/27/23 02/12/23 History dulaglutide 1.5 mg/0.5 mL 1.5 mg subcut QWEEK 02/07/23 02/27/23 02/05/23 History subcutaneous pen injector (Trulicity) insulin degludec 200 unit/mL (3 25 unit subcut BID 02/07/23 02/27/23 Unknown History mL) subcutaneous pen (Tresiba FlexTouch U-200 insulin) tacrolimus 0.5 mg capsule, 0.5 mg PO BEDTIME 02/07/23 02/27/23 02/13/23 History immediate-release valsartan 160 mg tablet 160 mg PO DAILY 02/27/23 02/27/23 Unknown History Exam Exam Date and Time: February 27, 2023 1203 Height,Weight and Vital Signs: Height 5 ft 9 in Weight 104.326 kg Last Vital Signs Pulse 92 02/27/23 11:47 Resp 20 02/27/23 11:47 BP 124/62 02/27/23 11:47 Pulse Ox 98 02/27/23 11:47 O2 Del Method Room Air 02/27/23 11:47 Pertinent Lab Results Pertinent Lab Results: Laboratory Tests 02/13/23 06:28 WBC 6.3 Hgb 12.5 L Hct 39.4 L Plt Count 149 L Sodium 145 Potassium 3.3 Chloride 102 Carbon Dioxide 31 H BUN 17 H Creatinine 1.16 Narrative Narrative: ECHO 12/2022 Nml LV size and systolic function. LVEF 60% Nml RV size and systolic function Unable to estimate PASP d/t insufficient tricuspid regurg EKG 11/2022 NSR @ 91 RBBB No significant change c/w 05/2022 Cardiac cath 2020 No significant angiographic epicardial coronary disease Mild paucity of LAD tertiary vessels with dimished flow velocity in the LAD during coronary angiography. There were transient ST segment elevations during the left coronary injections without any patient complaints of chest or back discomfort nor change in heart rate or blood pressure. Airway Mallampati Class: II TM Dist: <=3cm Neck ROM: Full Denture: Upper and Lower Heart: RRR Lungs: CTAB Assessment and Plan Final Anesthetic Review Family History of Problems with Anesthesia: No History of Problems with Anesthesia: No
[2023-05-01 12:57] VITALS: BP 137/65; PULSE 89; RESP 20; O2SAT 97; BMI 32.3
--- NOTE | 2023-05-01 13:09 | P.CONAN_ITS ---
Documented by User: Maribell Nielsen NP 05/12/23 09:48 HPI - Anesthesia Eval Consult details Narrative: 72yo M for?L4-5, OLIF (Transkambin Lumbar Interbody Fusion), 05/15/23 Previously rescheduled d/t pna. Hospitalized at [facility] for 3 days followed by 10 days at [facility]. Repeat CXR at [facility] is WNL s/p Right Shoulder Arthroscopy, etc 01/2023 with GA-ETT and block Heart transplant 2012 for ischemic cardiomyopathy. Cardiac optimized. Prednisone 5mg daily, prograf, myfortid for immunsuppression. Last cardiology office visit 11/2022. Cardiac stable. Low Mg, started on supplement. Follows vascular for LLE DVT and bilat LE wounds. DVT resolved and off eliquis and LE wounds healed. Plavix for hx LLE DVT 08/2022 - ok to hold per cardiology Slight congestion with rare cough No CP/SOB with very minimal activity d/t LE pain FBS ~ 100 ARNULFO but pt denies Anesthesia Pre-Procedure Meds Is the patient on any of the following meds?: Dulaglutide (Trulicity) (Planned last dose 05/07/22) If Yes to any meds - educate patient: Pt education - increased risk of aspiration and Pt education - possibility of cancelled proc at provider's discretion PMFSH Active Problems Active Problems: All Active Problems (Updated 05/01/23 @ 13:05 by Brandi Scott RN) Right shoulder pain (Acute) Impingement of right shoulder (Acute) Diabetes (Acute) Lumbar stenosis (Acute) Low back pain (Acute) Past Medical History Medical History Pneumonia Cataract Amputation of toe Hx of thrombosis History of positive PPD Erosive gastropathy Colon polyp Erectile dysfunction Microscopic hematuria Immunosuppressed status Unsteady gait Ischemic cardiomyopathy DAY (generalized anxiety disorder) Dyslipidemia CHD (congenital heart disease) Chronic kidney disease Sleep apnea Headache Left foot drop Back pain Depression Osteopenia Dry eye Tremor Dysautonomia Insomnia Neck pain Presbyesophagus Esophageal dysmotility BPH (benign prostatic hyperplasia) Hyperparathyroidism Guillain-[place] syndrome Leukopenia Neuropathy PVD (peripheral vascular disease) Myocardial infarction Cellulitis History of COVID-19 Hx MRSA infection Diabetes Hx of deep venous thrombosis Immune disorder High cholesterol High blood pressure Acid reflux Family History Family history of problems with anesthesia: No Surgical History Surgical History Hx of shoulder surgery Hx of squamous cell carcinoma excision Hx of cataract surgery Status post arterial stent History of esophagogastroduodenoscopy (EGD) H/O angioplasty AICD (automatic cardioverter/defibrillator) present History of lumbar fusion Hx of cervical spine surgery History of left ventricular assist device (LVAD) Hx of CABG Hx of heart transplant History of Problems with Anesthesia: No Social History Social History Are you a primary acute care nursing assistant to a significant other at home: No Do you presently have visiting nurse or other home services: No Comment: neuropathy/back pain-uses walker Patient Tobacco Use Status: Former Tobacco user Quit Date: 1997 Tobacco use type: Cigarette Years Smoked: 20 Use of substances other than those prescribed or required for medical reasons: No Have you been hit, kicked, punched, or otherwise hurt by someone within the past year? 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 Meds Allergies Allergy/AdvReac Type Severity Reaction Status Date / Time No Known Allergies Allergy Verified 05/15/23 08:45 Home Medications Medication Instructions Recorded Confirmed Last Taken Type amlodipine 5 mg tablet 10 mg PO QAM 10/07/22 05/15/23 05/15/23 History duloxetine 20 mg capsule,delayed 40 mg PO BEDTIME 10/07/22 05/15/23 Unknown History release fludrocortisone 0.1 mg tablet 0.1 mg PO QAM 10/07/22 05/15/23 05/15/23 History gabapentin 300 mg capsule 300 mg PO TID 10/07/22 05/15/23 02/13/23 History insulin lispro 100 unit/mL 10 - 20 unit subcut TIDAC 10/07/22 05/15/23 05/14/23 10:00 History subcutaneous cartridge (Humalog 8 units U-100 Insulin) mycophenolate sodium 360 mg 360 mg PO BID 10/07/22 05/15/23 05/15/23 History tablet,delayed release pantoprazole 40 mg tablet,delayed 40 mg PO BID 10/07/22 05/15/23 05/15/23 History release pen needle, diabetic 31 gauge x #1,200 ea 10/07/22 05/01/23 Unknown History 08/30 (BD Ultra-Fine Short Pen Needle) prednisone 5 mg tablet 5 mg PO QAM 10/07/22 05/15/23 05/15/23 History rosuvastatin 20 mg tablet 20 mg PO BEDTIME 10/07/22 05/15/23 Unknown History tacrolimus 1 mg capsule, 2 mg PO BID 10/07/22 05/15/23 Unknown History immediate-release trazodone 100 mg tablet 200 mg PO BEDTIME PRN Insomnia 10/07/22 05/15/23 Unknown History aspirin 81 mg tablet,delayed 81 mg PO QAM 02/07/23 05/15/23 05/14/23 History release clopidogrel 75 mg tablet 75 mg PO QAM 02/07/23 05/15/23 05/07/23 History dulaglutide 1.5 mg/0.5 mL 1.5 mg subcut QWEEK 02/07/23 05/15/23 05/07/23 History subcutaneous pen injector (Trulicity) insulin degludec 200 unit/mL (3 25 unit subcut QAM 02/07/23 05/15/23 05/14/23 History mL) subcutaneous pen (Tresiba FlexTouch U-200 insulin) tacrolimus 0.5 mg capsule, 0.5 mg PO BEDTIME 02/07/23 05/15/23 05/15/23 History immediate-release valsartan 160 mg tablet 160 mg PO QAM 02/27/23 05/15/23 Unknown History cholecalciferol (vitamin D3) 25 25 mcg PO QAM 05/01/23 05/15/23 Unknown History mcg (1,000 unit) capsule (Vitamin D3) cyanocobalamin (vitamin B-12) 1,000 mcg PO QAM 05/01/23 05/15/23 Unknown History 1,000 mcg tablet (Vitamin B-12) insulin degludec 200 unit/mL (3 20 unit subcut BEDTIME 05/01/23 05/15/23 05/14/23 22:00 History mL) subcutaneous pen (Tresiba 20 units FlexTouch U-200 insulin) magnesium oxide 400 mg (241.3 mg 400 mg PO BID 05/01/23 05/15/23 Unknown History magnesium) tablet Exam Exam Date and Time: February 27, 2023 1203 Height,Weight and Vital Signs: Height 5 ft 9 in Weight 99.337 kg Last Vital Signs Pulse 89 05/01/23 12:57 Resp 20 05/01/23 12:57 BP 137/65 05/01/23 12:57 Pulse Ox 97 05/01/23 12:57 O2 Del Method Room Air 05/01/23 12:57 Pertinent Lab Results Pertinent Lab Results: Laboratory Tests 02/27/23 12:36 Blood Type A Positive Antibody Screen NEGATIVE Laboratory Tests 02/13/23 06:28 WBC 6.3 Hgb 12.5 L Hct 39.4 L Plt Count 149 L Sodium 145 Potassium 3.3 Chloride 102 Carbon Dioxide 31 H BUN 17 H Creatinine 1.16 Narrative Narrative: CXR 04/2023 FINDINGS: The patient is status post median sternotomy. The lungs are well expanded. There are interstitial increased interstitial markings without focal consolidation. No pleural effusion. The cardiomediastinal silhouette is within normal limits. Calcification of the thoracic aorta is indicative of atherosclerotic disease. Multilevel degenerative changes of the thoracic spine are seen. XR/XR chest 2V IMPRESSION: No acute cardiopulmonary disease. ECHO 12/2022 Nml LV size and systolic function. LVEF 60% Nml RV size and systolic function Unable to estimate PASP d/t insufficient tricuspid regurg EKG 11/2022 NSR @ 91 RBBB No significant change c/w 05/2022 Cardiac cath 2020 No significant angiographic epicardial coronary disease Mild paucity of LAD tertiary vessels with dimished flow velocity in the LAD during coronary angiography. There were transient ST segment elevations during the left coronary injections without any patient complaints of chest or back discomfort nor change in heart rate or blood pressure. Airway Mallampati Class: II TM Dist: <=3cm Neck ROM: Full Denture: Upper and Lower Heart: RRR Lungs: CTAB Assessment and Plan Assessment Anesthesia Assessment: Chart Reviewed (Seen in PAT prior to reschedule) Final Anesthetic Review Family History of Problems with Anesthesia: No History of Problems with Anesthesia: No Documented by User: Maddie Shukla MD 05/15/23 09:59 PMFSH Past Medical History Medical History Pneumonia Cataract Amputation of toe Hx of thrombosis History of positive PPD Erosive gastropathy Colon polyp Erectile dysfunction Microscopic hematuria Immunosuppressed status Unsteady gait Ischemic cardiomyopathy DAY (generalized anxiety disorder) Dyslipidemia CHD (congenital heart disease) Chronic kidney disease Sleep apnea Headache Left foot drop Back pain Depression Osteopenia Dry eye Tremor Dysautonomia Insomnia Neck pain Presbyesophagus Esophageal dysmotility BPH (benign prostatic hyperplasia) Hyperparathyroidism Guillain-[place] syndrome Leukopenia Neuropathy PVD (peripheral vascular disease) Myocardial infarction Cellulitis History of COVID-19 Hx MRSA infection Diabetes Hx of deep venous thrombosis Immune disorder High cholesterol High blood pressure Acid reflux Surgical History Surgical History Hx of shoulder surgery Hx of squamous cell carcinoma excision Hx of cataract surgery Status post arterial stent History of esophagogastroduodenoscopy (EGD) H/O angioplasty AICD (automatic cardioverter/defibrillator) present History of lumbar fusion Hx of cervical spine surgery History of left ventricular assist device (LVAD) Hx of CABG Hx of heart transplant Social History Social History Are you a primary acute care nursing assistant to a significant other at home: No Do you presently have visiting nurse or other home services: No Comment: neuropathy/back pain-uses walker Patient Tobacco Use Status: Former Tobacco user Quit Date: 1997 Tobacco use type: Cigarette Years Smoked: 20 Use of substances other than those prescribed or required for medical reasons: No Have you been hit, kicked, punched, or otherwise hurt by someone within the past year? 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 Meds Allergies Allergy/AdvReac Type Severity Reaction Status Date / Time No Known Allergies Allergy Verified 05/15/23 08:45 Home Medications Medication Instructions Recorded Confirmed Last Taken Type amlodipine 5 mg tablet 10 mg PO QAM 10/07/22 05/15/23 05/15/23 History duloxetine 20 mg capsule,delayed 40 mg PO BEDTIME 10/07/22 05/15/23 Unknown History release fludrocortisone 0.1 mg tablet 0.1 mg PO QAM 10/07/22 05/15/23 05/15/23 History gabapentin 300 mg capsule 300 mg PO TID 10/07/22 05/15/23 02/13/23 History insulin lispro 100 unit/mL 10 - 20 unit subcut TIDAC 10/07/22 05/15/23 05/14/23 10:00 History subcutaneous cartridge (Humalog 8 units U-100 Insulin) mycophenolate sodium 360 mg 360 mg PO BID 10/07/22 05/15/23 05/15/23 History tablet,delayed release pantoprazole 40 mg tablet,delayed 40 mg PO BID 10/07/22 05/15/23 05/15/23 History release pen needle, diabetic 31 gauge x #1,200 ea 10/07/22 05/01/23 Unknown History 5/16 (BD Ultra-Fine Short Pen Needle) prednisone 5 mg tablet 5 mg PO QAM 10/07/22 05/15/23 05/15/23 History rosuvastatin 20 mg tablet 20 mg PO BEDTIME 10/07/22 05/15/23 Unknown History tacrolimus 1 mg capsule, 2 mg PO BID 10/07/22 05/15/23 Unknown History immediate-release trazodone 100 mg tablet 200 mg PO BEDTIME PRN Insomnia 10/07/22 05/15/23 Unknown History aspirin 81 mg tablet,delayed 81 mg PO QAM 02/07/23 05/15/23 05/14/23 History release clopidogrel 75 mg tablet 75 mg PO QAM 02/07/23 05/15/23 05/07/23 History dulaglutide 1.5 mg/0.5 mL 1.5 mg subcut QWEEK 02/07/23 05/15/23 05/07/23 History subcutaneous pen injector (Trulicity) insulin degludec 200 unit/mL (3 25 unit subcut QAM 02/07/23 05/15/23 05/14/23 History mL) subcutaneous pen (Tresiba FlexTouch U-200 insulin) tacrolimus 0.5 mg capsule, 0.5 mg PO BEDTIME 02/07/23 05/15/23 05/15/23 History immediate-release valsartan 160 mg tablet 160 mg PO QAM 02/27/23 05/15/23 Unknown History cholecalciferol (vitamin D3) 25 25 mcg PO QAM 05/01/23 05/15/23 Unknown History mcg (1,000 unit) capsule (Vitamin D3) cyanocobalamin (vitamin B-12) 1,000 mcg PO QAM 05/01/23 05/15/23 Unknown History 1,000 mcg tablet (Vitamin B-12) insulin degludec 200 unit/mL (3 20 unit subcut BEDTIME 05/01/23 05/15/23 05/14/23 22:00 History mL) subcutaneous pen (Tresiba 20 units FlexTouch U-200 insulin) magnesium oxide 400 mg (241.3 mg 400 mg PO BID 05/01/23 05/15/23 Unknown History magnesium) tablet Assessment and Plan Assessment Anesthesia Assessment: Anesthesia Plan Discussed Final Anesthetic Review ASA Class: III Final Preanesthetic Review: No Changes in Pt Med Stat, Meds/Allgs Chart Reviewed, Consent Obtained/Reviewed and Anes Risks/Benef Reviewed Patient Risk: Intermediate Procedure Risk: Intermediate Anesthetic Plan Anesthetic Plan: GA Disposition: Standard PACU
[2023-05-15] VITALS (10 sets, daily range): BP systolic 120–178; BP diastolic 55–88; PULSE 81–94; RESP 14–20; TEMP 36.1–36.4; O2SAT 94–98; BMI 33.1
--- NOTE | ~2023-05-15 | FL_ITS ---
EXAMINATION: XR FLUOROSCOPY WITH IMAGES CLINICAL INFORMATION: OLIF. COMPARISON: Lumbosacral spine radiographs dated 11/15/2022. TECHNIQUE: Fluoroscopy Supervised By: Dr. Last Copeland. Fluoroscopy Time: 1.0. Cumulative Dose: 95.2 mGy. DAP: 24.17 Gycm2. Images: 5. FINDINGS: The submitted images show placement posterior fixator rods, pedicular screws and a disc spacer at L4-L5. An interspinous fixator device at the L4-L5 level is unchanged in position from 11/15/2022. FL/FL guidance in OR IMPRESSION: Intraoperative fluoroscopic guidance is provided during L4-L5 posterior fusion and discectomies. Please see the patient's Operative Report for full procedural details.
--- NOTE | ~2023-05-15 | XR_ITS ---
EXAMINATION: XR CHEST CLINICAL INFORMATION: Pneumonia COMPARISON: None available. TECHNIQUE: 2 views of the chest were obtained. FINDINGS: The patient is status post median sternotomy. The lungs are well expanded. There are interstitial increased interstitial markings without focal consolidation. No pleural effusion. The cardiomediastinal silhouette is within normal limits. Calcification of the thoracic aorta is indicative of atherosclerotic disease. Multilevel degenerative changes of the thoracic spine are seen. XR/XR chest 2V IMPRESSION: No acute cardiopulmonary disease.
--- NOTE | 2023-05-15 07:25 | P.HPSUR_ITS ---
Pre-Procedural Eval Section A - 24 Hr Update-Section A only Date of Service: 05/15/23 The patient is an INPATIENT: No Changes since office visit: No Cold of Flu in the past 2 weeks, No New Medical Problems, No Changes in Medication and No Patient answered all questions The patient has been examined within 24 hours of the surgical procedure. The History & Physical has been completed within 30 days and I have reviewed it.: No Section B - Complete if H&P > 30 days Chief Complaint: Spinal stenosis, lumbar region without neurogenic Allergies: Allergies Allergy/AdvReac Type Severity Reaction Status Date / Time No Known Allergies Allergy Verified 04/03/23 12:32 Review of Systems Sugical H&P ROS: Negative: Constitution, Cardiovascular, Respiratory, Neurological, Psychiatric, Hem-Onc, Allergic/Immunologic, Gastrointestinal, Genitourinary, Musculoskeletal, Integumentary, Endocrine and Eyes/Ears/Nose/Thro at Exam Surgical H&P Exam: Not Evaluated: HEENT, Not Evaluated: Heart, Not Evaluated: Lungs, Not Evaluated: Extremities, Not Evaluated: Abdomen, Not Evaluated: Skin and Not Evaluated: Neurological Plan Diagnosis/Plan: Unchanged L4-5 Oblique lumbar interbody fusion Time Spent With Patient Time: Total time managing care of this patient today _7___ minutes.
--- OUTSIDE RECORDS SUMMARY | 2023-05-15 08:50 | XMS_ITS | Continuity of Care Document ---
Author Name Unknown Organization [facility] Address [address] [place] [address]- Care Team Providers Care Paleobotanist Name Role Phone Not on Staff, PCP Primary Care Physician Unavail able Encounter [facility] Date(s): 08/25/21 - 09/24/21 [facility] [address] [place] [id number] Allergies, Adverse Reactions, Alerts Substance Reaction Severity Status lisinopril Active Immunizations Given and Recorded Vaccine Date Status Refusal Reason SARS-CoV-2 (COVID-19) mRNA BNT-162b2 vac 01/15/21 Recorded SARS-CoV-2 (COVID-19) mRNA BNT-162b2 vac 06/13/20 Recorded SARS-CoV-2 (COVID-19) mRNA BNT-162b2 vac 05/17/20 Recorded influenza virus vaccine, inactivated 02/12/14 Quinn rded influenza virus vaccine, inactivated 01/17/10 Give n influenza virus vaccine, inactivated 1 02/21/08 Gi randi Influenza Virus Vaccine (oldterm) 2 01/24/06 Given Influenza Inactive (IM) (oldterm) 02/17/05 Given Pneumococcal Vacc (oldterm) 3 07/14/04 Given 1Result Comment: Lot # [id number] Exp. #) SEP 23 2Admin Note: Pt states he received this seasons flu vaccine at [place]. 3Admin Note: Patient states he received pneumovax in 2004 at [place]. Medications aspirin 81 mg oral delayed release tablet 81 mg, 1, tablet, By Mouth, Daily, # 30 tablet, Refills 0, Tot. Refills 0, Maintenance, 06/08/21 11:45:00 EST, Route to Pharmacy Electronically, [facility]/pharmacy #[id number], Partial fill upon patient request if the prescription is for a schedule II opioid drug... Start Date: 06/08/21 Stop Date: 07/08/21 Status: Ordered gabapentin 600 mg oral tablet TAKE 1 TABLET BY MOUTH 3 TIMES DAILY FOR 90 DAYS. Start Date: 06/01/21 Status: Ordered HumaLOG Cartridge 100 units/mL injectable solution See Instructions, Insert cartridge into Inpen device, inject 16 units subq 3x a day with meals, Maxdaily dose 48 units, E11.65, # 30 mL, 6 Refills, Maintenance, 08/03/21 10:25:00 EDT, [facility], 175, cm, 07/26/21 8:27:00 EDT, Height, 75, k... Start Date: 08/03/21 Status: Ordered mycophenolic acid 360 mg oral delayed release tablet 1 tablet = 360 mg, By Mouth, 2 times a day Start Date: 06/22/21 Status: Ordered pantoprazole 40 mg oral delayed release tablet 1 tablet = 40 mg, By Mouth, Daily, # 90 tablet, 0 Refills, Maintenance, 06/08/21 11:47:00 EST, CR Tablet, 175, cm, 06/08/21 7:53:00 EST, Height, 75, kg, 06/01/21 21:45:00 EST, Dry Weight Start Date: 06/08/21 Stop Date: 09/06/21 Status: Ordered predniSONE 5 mg oral tablet 1 tablet = 5 mg, By Mouth, Daily, 0 Refills, Maintenance, 04/07/17 12:50:00 Start Date: 04/07/17 Status: Ordered rosuvastatin 20 mg oral tablet 1 tablet = 20 mg, By Mouth, Daily, 0 Refills, Maintenance, 04/07/17 12:49:42 Start Date: 04/07/17 Status: Ordered tacrolimus 1 mg oral capsule 2.5 capsule = 2.5 mg, By Mouth, 2 times a day, 3 in the AM & 3 in the Evening, Maintenance, 06/22/21 15:17:00 EST, ; Start Date: 06/22/21 Status: Ordered traZODone 100 mg oral tablet 200 mg, 2, tablet, By Mouth, Daily at bedtime, PRN, # 60 tablet, Refills 5, Tot. Refills 5, Maintenance, Insomnia, 05/27/19 16:08:00 EST, Route to Pharmacy Electronically, [facility]/pharmacy #[id number], 175, cm, 12/05/18 15:23:00 EDT, Height, 84.5, kg, 05/22/18... Start Date: 05/27/19 Stop Date: 11/23/19 Status: Ordered Tresiba 100 units/mL subcutaneous solution = 100 units, Subcutaneous Infusion, Daily, 0 Refills, Maintenance, 07/26/21 8:47:00 EDT, Partial fill upon patient request if the prescription is for a schedule II opioid drug. Start Date: 07/26/21 Status: Ordered Problem List Condition Effective Dates Status Health Status Inform ant Adjustment Disorder with Mix ed Anxiety and Depressed Mood(Confirmed) Active Coronary artery disease(Confirmed) Active Diabetes mellitus(Confirmed) Active GERD (gastroesophageal reflu x disease)(Confirmed) Active DAY (generalized anxiety disorder)(Confirmed) Active Heart transplant status(Confirmed) Active Immunosuppressed status(Confirmed) Active Ischemic cardiomyopathy(Confirmed) Active Peripheral neuropathy(Confirmed) Active Mild somatic symptom disorde r with predominant pain(Confirmed) Active Social History Social History Type Response Smoking Status Former smoker, quit more than 30 days ago entered on: 06/01/21 Sex
--- OUTSIDE RECORDS SUMMARY | 2023-05-15 08:50 | XMS_ITS | Continuity of Care Document ---
Author Name Unknown Organization [facility] Address [address] [place] [address]- Care Team Providers Care Hothouse Worker Name Role Phone Dung Chen MD Primary Care Physician Encounter [facility] Date(s): 02/02/23 - 03/04/23 [facility] [address] [place], [place] [address] Allergies, Adverse Reactions, Alerts Substance Reaction Severity Status lisinopril Active Immunizations Given and Recorded Vaccine Date Status Refusal Reason influenza virus vaccine, inactivated 02/06/23 Quinn rded influenza virus vaccine, inactivated 02/02/22 Quinn rded influenza virus vaccine, inactivated 01/07/21 Quinn rded influenza virus vaccine, inactivated 01/13/20 Quinn rded influenza virus vaccine, inactivated 02/06/19 Quinn rded influenza virus vaccine, inactivated 01/14/16 Quinn rded influenza virus vaccine, inactivated 12/31/14 Quinn rded influenza virus vaccine, inactivated 02/12/14 Quinn rded influenza virus vaccine, inactivated 01/24/14 Quinn rded influenza virus vaccine, inactivated 03/27/12 Quinn rded influenza virus vaccine, inactivated 05/04/11 Quinn rded influenza virus vaccine, inactivated 01/22/10 Quinn rded influenza virus vaccine, inactivated 01/17/10 Give n influenza virus vaccine, inactivated 1 02/21/08 Gi randi influenza virus vaccine, inactivated 01/22/07 Quinn rded influenza virus vaccine, inactivated 03/07/06 Quinn rded SARS-CoV-2(COVID-19)mRNA-LNP vac([id number]) 02/06/23 Recorded tetanus/diphtheria/pertussis, acel(Tdap) 2 12/08/22 Given tetanus/diphtheria/pertussis, acel(Tdap) 03/27/12 Recorded pneumococcal 20-valent conjugate vaccine 3 12/08/22 Given [id number] 12y+ bivalent booster vax 04/15/22 Recorded SARS-CoV-2 mRNA ([id number]) vax 07/18/21 Recorded SARS-CoV-2 (COVID-19) mRNA BNT-162b2 vac 01/15/21 Recorded SARS-CoV-2 (COVID-19) mRNA BNT-162b2 vac 06/13/20 Recorded SARS-CoV-2 (COVID-19) mRNA BNT-162b2 vac 05/17/20 Recorded hepatitis B adult vaccine 03/27/12 Recorded Hepatitis A Adult Vaccine 03/27/12 Recorded pneumococcal 23-valent vaccine 01/24/12 Recorded pneumococcal 23-valent vaccine 03/02/04 Recorded Influenza Virus Vaccine (oldterm) 4 01/24/06 Given Influenza Inactive (IM) (oldterm) 02/17/05 Given tetanus-diphtheria toxoids (Td) 08/31/04 Recorded Pneumococcal Vacc (oldterm) 5 07/14/04 Given 1Result Comment: Lot # [id number] Exp. #) SEP 23 2Result Comment: [facility] [id number] 3Result Comment: [facility] [id number] 4Admin Note: Pt states he received this seasons flu vaccine at [place]. 5Admin Note: Patient states he received pneumovax in 2004 at [place]. Medications amLODIPine 10 mg oral tablet 10 mg, 1, tablet, By Mouth, Daily, # 90 tablet, Refills 3, Tot. Refills 3, Maintenance, 11/03/22 11:30:00 EDT, Route to Pharmacy Electronically, [facility] ([facility] ), Partial fill upon patient request if the prescription is for... Start Date: 11/03/22 Status: Ordered aspirin 81 mg oral delayed release tablet 81 mg, 1, tablet, By Mouth, Daily, # 30 tablet, Refills 0, Tot. Refills 0, Maintenance, 06/08/21 11:45:00 EST, Route to Pharmacy Electronically, [facility]/pharmacy #[id number], Partial fill upon patient request if the prescription is for a schedule II opioid drug... Start Date: 06/08/21 Stop Date: 07/08/21 Status: Ordered duloxetine 20 mg oral enteric coated capsule 2 capsule = 40 mg, By Mouth, Daily at bedtime, 0 Refills, Maintenance, 09/27/21 10:35:00 EDT, [facility], Partial fill upon patient request if the prescription is for a schedule II opioid drug. Start Date: 09/27/21 Status: Ordered fludrocortisone 0.1 mg oral tablet 0 Refills, Maintenance, 09/25/21 10:17:00 EDT, Partial fill upon patient request if the prescription is for a schedule II opioid drug. Start Date: 09/25/21 Status: Ordered fluticasone 50 mcg/inh nasal spray 1 sprays, Nares, Both, Daily, # 3 each, 3 Refills, Maintenance, 01/19/23 18:26:00 EDT, [facility] [place],[facility], Partial fill upon patient request if the prescription is for a schedule II opioid drug., 1 sprays Nares, Both Daily, 173, cm, 10/0... Start Date: 01/19/23 Status: Ordered gabapentin 600 mg oral tablet 1 tablet = 600 mg, By Mouth, 3 times a day, # 270 tablet, 0 Refills, Maintenance, 11/03/22 11:28:00EDT, Tablet, Partial fill upon patient request if the prescription is for a schedule II opioid drug. Start Date: 11/03/22 Status: Ordered Humalog Cartridge 100 units/mL subcutaneous injection See Instructions, INSERT CARTRIDGE INTO INPEN DEVICE AND INJECT SUBCUTANEOUSLY 16 UNITS 3 TIMES DAILY WITH MEALS - MAX DAILY DOSE: 48 UNITS, # 45 mL, 3 Refills, Maintenance, 08/23/22 12:58:00 EDT, [facility] ([facility]), 176, cm... Start Date: 08/23/22 Status: Ordered insulin degludec (concentrated) 200 units/mL subcutaneous solution See Instructions, 30 units in the AM and 30 units in the PM 30 days supply, # 75 mL, 3 Refills, Maintenance, 10/15/22 10:03:00 EDT, [facility], Partial fill upon patient request if the prescription is for a schedule II opioid drug., 173... Start Date: 10/15/22 Status: Ordered mycophenolic acid 360 mg oral delayed release tablet See Instructions, 2 tablet By Mouth 2 times a day Start Date: 06/22/21 Status: Ordered oxyCODONE 5 mg oral capsule 1 capsule = 5 mg, By Mouth, Every 4 hours, PRN for pain, 0 Refills, Maintenance, 03/03/23 12:56:00 EST, Capsule, Partial fill upon patient request if the prescription is for a schedule II opioid drug. Start Date: 03/03/23 Status: Ordered pantoprazole 40 mg oral delayed release tablet 1 tablet, By Mouth, 2 times a day, # 180 tablet, 3 Refills, Maintenance, 08/17/22 7:40:00 EDT, 176,cm, 07/19/22 11:16:00 EDT, Height, 101.1, kg, 05/02/22 16:03:00 EST, Dry Weight Start Date: 08/17/22 Status: Ordered Plavix 75 mg oral tablet 75 mg, 1, tablet, By Mouth, Daily, Refills 0, Maintenance, 01/12/23 14:56:00 EDT, Partial fill uponpatient request if the prescription is for a schedule II opioid drug. Start Date: 01/12/23 Status: Ordered predniSONE 5 mg oral tablet [...] Status: Ordered traZODone 100 mg oral tablet 2, tablet, By Mouth, Daily at bedtime, PRN, # 180 tablet, Refills 3, Maintenance, NEEDED FOR INSOMNIA, 10/12/22 22:48:00 EDT, Route to Pharmacy Electronically, [facility]), 173, cm, 10/12/22 19:31:00 EDT, Height, 106.... Start Date: 10/12/22 Status: Ordered Trulicity Pen 0.75 mg/0.5 mL subcutaneous solution 0.5 mL = 0.75 mg, Subcutaneous Injection, Every week, rotate injection sites, # 6 mL, 0 Refills, Maintenance, 12/08/22 11:17:00 EDT, Solution, [facility] ([facility]), Partial fillupon patient request if the prescription is for a s... Start Date: 12/08/22 Status: Ordered valsartan 160 mg oral tablet 160 mg, 1, tablet, By Mouth, Daily, # 90 tablet, Refills 0, Tot. Refills 0, Maintenance, 02/12/23 22:19:00 EDT, Route to Pharmacy Electronically, [facility]/pharmacy #[id number], Partial fill upon patient requestif the prescription is for a schedule II opioid eran. Start Date: 02/12/23 Status: Ordered Problem List Condition Confirmation Course Effective Dates Status Health Status Informant Unsteady gait Confirmed Active Amputated toe of left foot Confirmed Active AICD (automatic cardioverter/defibrillato r) present Confirmed 06/21/05 Active BPH - [facility] Confirmed 03/14/21 Active Chronic kidney disease stage 3 Confirmed 05/17/11 Active CAD; s/p CABG 1997, [place] 2006 w/stent; heart transplant 04/30 Confirmed Active DVT, lower extremity Confirmed Active Diabetes mellitus with PVD; stents; [facility] [place] [facility] Confirmed Active Diabetes mellitus with cataract Confirmed Active Dysautonomia Confirmed 10/19/18 Active Dry eyes Confirmed 11/18/16 Active Erectile dysfunction Confirmed 06/21/05 Active Erosive gastropathy - 08/05 EGD; normal EGD 12/06 Confirmed 07/29/20 Active Esophageal dysmotility Confirmed 07/21/20 Active Diabetic foot ulcer; Dr Ralph Confirmed Active Gastroesophageal reflux disease Confirmed 06/21/05 Active DAY (generalized anxiety disorder) Confirmed Active Glaucoma suspect Confirmed 07/15/13 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 Active History of depression Confirmed 12/17/15 Active Heart transplant status 1 Confirmed Active Headache Confirmed 01/24/14 Active History of SCC in situ; [facility] Confirmed 11/06/20 Active History of venous thrombosis - R IJ complete, partial on L; AC x3mo Confirmed 05/13/13 Active Hyperparathyroidism Confirmed 06/07/21 Active Hypertension Confirmed Active Immunosuppressed status Confirmed Active Insomnia Confirmed 07/17/19 Active Ischemic cardiomyopathy Confirmed Active Left foot drop Confirmed 08/25/14 Active Leukopenia Confirmed 07/10/21 Active Low back pain Confirmed 06/15/15 Active Microscopic hematuria; [facility] Confirmed Active Neck pain Confirmed 08/29/19 Active Neuropathy due to diabetes mellitus Confirmed 10/11/10 Active Nonproliferative diabetic retinopathy Confirmed Active H/o positive PPD, s/p 9mo INH Confirmed 03/07/06 Active Obese class I Confirmed Active Obstructive sleep apnea syndrome Confirmed 09/08/11 Active Osteopenia - minimal, on DXA 08/01 Confirmed 08/08/16 Active Peripheral neuropathy Confirmed Active Colon polyp Confirmed Active Presbyesophagus Confirmed 07/21/20 Active Pure hypercholesterolemia Confirmed 06/21/05 Active Tremor - Neurology at [facility] Confirmed 02/07/18 Active Type 2 DM with renal manifestations; [facility] Confirmed 05/04/16 Active 1EF 20-25% prior to transplant Social History Social History Type Response Smoking Status Former smoker, quit more than 30 days ago entered on: 10/24/22 Sex Patient Care team information Care Team Personnel Name: Nenita Song Position: [facility] RN Supv Member Role: Primary Care Nurse Name: Sherice Mariscal RN Position: [facility] RN Member Role: Primary Care Nurse Name: Najma Michael RN Position: [facility] RN Member Role: Primary Care Nurse Name: Mallory Masterson NP Position: Reference Physician Member Role: Primary Care Nurse Address: Address: [address] [place] [address]- Name: Scarlet Rosenthal RN Position: [facility] SN RN Member Role: Primary Care Nurse Name: Dung Chen MD Position: [facility] Physician - Primary Care Member Role: PCP Address: Address: [address] [place] [address]- Name: Heydi Oviedo RN Position: [facility] Hospital Hunter Guide Member Role: Primary Care Nurse Name: Sandra Cat Position: [facility] Outreach Member Role: Lifetime Consulting Physician Name: Nicki Garcia RN Position: [facility] RN Member Role: Primary Care Nurse Name: Vane Davalos RN Position: [facility] RN Member Role: Primary Care Nurse Name: Belinda Stevenson RN Position: [facility] SN RN Member Role: Primary Care Nurse Name: Luis Peters MD Position: [facility] Renal MD Member Role: Lifetime Consulting Physician Address: Address: [address] [facility] [place] [address]- [place] Name: Zulma Martinez MD Position: [facility] Cardiology MD Member Role: Lifetime Consulting Physician Address: Address: [address] [facility] [address] [place] [address]- [place] Name: Evelyn Jean-Baptiste RN Position: S RN Member Role: Primary Care Nurse Name: Hilda Mcdonald RN Position: [facility] RN Member Role: Primary Care Nurse Care Team Related Persons Name: LUCIA BATEMAN Address: home [address] [place] [address]
--- OUTSIDE RECORDS SUMMARY | 2023-05-15 08:50 | XMS_ITS | Continuity of Care Document ---
Author Name Unknown Organization [facility] Address [address] [place] [address]- Care Team Providers Care Manager Field Name Role Phone Dung Chen MD Primary Care Physician Encounter [facility] Date(s): 11/03/22 - 11/10/22 [facility] [address] [place], [place] [address] Attending Physician: Dung Chen MD Allergies, Adverse Reactions, Alerts Substance Reaction Severity Status lisinopril Active Immunizations Given and Recorded Vaccine Date Status Refusal Reason SARS-CoV-2 mRNA ([id number]) vax 07/18/21 Recorded SARS-CoV-2 (COVID-19) mRNA BNT-162b2 vac 01/15/21 Recorded SARS-CoV-2 (COVID-19) mRNA BNT-162b2 vac 06/13/20 Recorded SARS-CoV-2 (COVID-19) mRNA BNT-162b2 vac 05/17/20 Recorded influenza virus vaccine, inactivated 01/07/21 Quinn rded [...] influenza virus vaccine, inactivated 03/07/06 Quinn rded hepatitis B adult vaccine 03/27/12 Recorded Hepatitis A Adult Vaccine 03/27/12 Recorded tetanus/diphtheria/pertussis, acel(Tdap) 03/27/12 Recorded pneumococcal 23-valent vaccine 01/24/12 Recorded pneumococcal 23-valent vaccine 03/02/04 Recorded Influenza Virus Vaccine (oldterm) 2 01/24/06 Given Influenza Inactive (IM) (oldterm) 02/17/05 Given tetanus-diphtheria toxoids (Td) 08/31/04 Recorded Pneumococcal Vacc (oldterm) 3 07/14/04 Given 1Result Comment: Lot # [id number] Exp. #) SEP 23 2Admin Note: Pt states he received this seasons flu vaccine at [place]. 3Admin Note: Patient states he received pneumovax in 2004 at [place]. Medications amLODIPine 10 mg oral tablet 10 mg, 1, tablet, By Mouth, Daily, # 90 tablet, Refills 3, Tot. Refills 3, Maintenance, 11/03/22 11:30:00 EDT, Route to Pharmacy Electronically, [facility] ([facility] Partial fill upon patient request if the prescription is for... Start Date: 11/03/22 Status: Ordered apixaban Starter Pack 5 mg oral tablet = 10 mg, By Mouth, 2 times a day, first dose on 10/15 at 2100, # 1 pack/packet, 0 Refills, Maintenance, 10/15/22 10:04:00 EDT, Tablet, [facility], Partial fill upon patient request if theprescription is for a schedule II opioid drug., 173... Start Date: 10/15/22 Status: Ordered aspirin 81 mg oral delayed release tablet 81 mg, 1, tablet, By Mouth, Daily, # 30 tablet, Refills 0, Tot. Refills 0, Maintenance, 06/08/21 11:45:00 EST, Route to Pharmacy Electronically, [facility]/pharmacy #[id number], Partial fill upon patient request if the prescription is for a schedule II opioid drug... Start Date: 06/08/21 Stop Date: 07/08/21 Status: Ordered Basic Metabolic Panel Basic Metabolic Panel, See Instructions, # 1 each, Refills 0, Tot. Refills 0, Maintenance, Please send results to Dr. Dung Chen ICD: N18.30 please obtain within 1 week of 09/12/22, 09/12/22 13:25:00 EDT, Supply Start Date: 09/12/22 Status: Ordered duloxetine 20 mg oral enteric coated capsule 1 capsule = 20 mg, By Mouth, 2 times a day, # 60 capsule, 0 Refills, Maintenance, 09/27/21 10:35:00EDT, EC Capsule, Partial fill upon patient request if the prescription is for a schedule II opioid drug. Start Date: 09/27/21 Status: Ordered Fioricet oral capsule 1 capsule, By Mouth, Every 6 hours, PRN Headache, # 24 capsule, 0 Refills, Maintenance, 04/12/22 19:33:00 EST, Capsule, [facility]/pharmacy #[id number], Partial fill upon patient request if the prescription is for a schedule II opioid drug., 1 capsule By Mouth Natasha... Start Date: 04/12/22 Status: Ordered fludrocortisone 0.1 mg oral tablet 0 Refills, Maintenance, 09/25/21 10:17:00 EDT, Partial fill upon patient request if the prescription is for a schedule II opioid drug. Start Date: 09/25/21 Status: Ordered fluticasone 50 mcg/inh nasal spray 0 Refills, Maintenance, 09/25/21 10:17:00 EDT, Partial fill upon patient request if the prescription is for a schedule II opioid drug. Start Date: 09/25/21 Status: Ordered Freestyle Nona 2 [place] Freestyle Nona 2 [place], See Instructions, # 1 each, Refills 0, Tot. Refills 0, Maintenance, Use to monitor blood glucose, scan sensor upon waking, before meals and at bedtime. E11.65, 10/25/22 9:50:00 EDT, Supply Start Date: 10/25/22 Status: Ordered Freestyle Nona 2 Sensors Freestyle Nona 2 Sensors, See Instructions, # 2 each, Refills 11, Tot. Refills 11, Maintenance, Use to monitor blood glucose, scan sensor upon waking, before meals and at bedtime. E11.65, 10/25/22 9:49:00 EDT, Supply, 173, cm, 10/24/22 17:27:00 EDT,... Start Date: 10/25/22 Status: Ordered Freestyle Nona Monitor Freestyle Nona Monitor, See Instructions, # 1 each, Refills 0, Tot. Refills 0, Maintenance, Use with Freestyle 14 day Sensor to monitor Blood Glucose. E11.65, 06/21/21 13:57:00 EST, Supply, 175, cm,06/08/21 7:53:00 EST, Height, 75, kg, 06/01/21 21:... Start Date: 06/21/21 Status: Ordered Freestyle Nona Sensor See Instructions, # 2 each, Refills 13, Tot. Refills 13, Maintenance, e11.65, use with freestyle nona 14 day reader for frequent glucose monitoring, change every 14 days, 28 day supply, 03/11/22 13:56:00 EST, Supply, 175.3, cm, 01/03/22 13:47:00 EDT,... Start Date: 03/11/22 Status: Ordered gabapentin 600 mg oral tablet [...] Maintenance, 08/23/22 12:58:00 EDT, [facility] ([facility]), 176, cm... Start Date: 08/23/22 Status: Ordered insulin degludec (concentrated) 200 units/mL subcutaneous solution See Instructions, 20 units in the AM and 30 units in the PM 30 days supply, # 75 mL, 3 Refills, Maintenance, 10/15/22 10:03:00 EDT, [facility], Partial fill upon patient request if the prescription is for a schedule II opioid drug., 173... Start Date: 10/15/22 Status: Ordered mycophenolic acid 360 mg oral delayed release tablet 2 tablet = 720 mg, By Mouth, 2 times a day Start Date: 06/22/21 Status: Ordered pantoprazole 40 mg oral delayed release tablet 1 tablet, By Mouth, 2 times a day, # 180 tablet, 3 Refills, Maintenance, 08/17/22 7:40:00 EDT, 176,cm, 07/19/22 11:16:00 EDT, Height, 101.1, kg, 05/02/22 16:03:00 EST, Dry Weight Start Date: 08/17/22 Status: Ordered Pen [place], 31 G x 8 mm BD Ultra Fine III See Instructions, # 300 each, Refills 6, Tot. Refills 6, Maintenance, use as directed for Type 2 Diabetes Mellitus for 5 injections per day E11.9, 12/09/21 9:52:00 EDT, Supply, 175.3, cm, 12/06/21 7:36:00 EDT, Height, 95.3, kg, 12/06/21 7:36:00 EDT... Start Date: 12/09/21 Stop Date: 08/31/23 Status: Ordered Pen [place], 32 G x 4 mm BD Ultra Fine III Maintenance, 09/25/21 10:18:00 EDT, Supply Start Date: 09/25/21 Status: Ordered predniSONE 5 mg oral tablet 1 tablet = 5 mg, By Mouth, Daily, 0 Refills, Maintenance, 04/07/17 12:50:00 Start Date: 04/07/17 Status: Ordered rosuvastatin 20 mg oral tablet 1 tablet = 20 mg, By Mouth, Daily, 0 Refills, Maintenance, 04/07/17 12:49:42 Start Date: 04/07/17 Status: Ordered Rx: Physical Therapy Rx: Physical Therapy, See Instructions, # 1 each, Refills 0, Tot. Refills 0, Maintenance, Rx: Physical Therapy Dx: Frequent falls, deconditioning, 06/08/22 9:25:00 EST, Supply Start Date: 06/08/22 Status: Ordered tacrolimus 1 mg oral capsule [...] 10/12/22 22:48:00 EDT, Route to Pharmacy Electronically, [facility] ([facility]), 173, cm, 10/12/22 19:31:00 EDT, Height, 106.... Start Date: 10/12/22 Status: Ordered Vitamin D3 50,000 intl units oral capsule 1 capsule = 1,250 mcg, By Mouth, Every week, # 8 capsule, 0 Refills, Maintenance, 06/08/22 12:19:00EST, Capsule, [id number], Partial fill upon patient request if the prescription is for a schedule II opioid drug., 176, cm, 06/08/22 12:04:00 E... Start Date: 06/08/22 Stop Date: 08/03/22 Status: Ordered Problem List Condition Confirmation Course Effective Dates Status Health Status Informant Unsteady gait Confirmed Active AICD (automatic cardioverter/defibrillato r) present Confirmed 06/21/05 Active BPH - [facility] Confirmed 03/14/21 Active BMI 33.0-33.9,adult Confirmed Active Chronic kidney disease stage 3 Confirmed 05/17/11 Active CAD; s/p CABG 1997, [place] 2006 w/stent; heart transplant 04/30 Confirmed Active DVT, lower extremity Confirmed Active Diabetes mellitus with PVD; stents; [facility] [place] [facility] Confirmed Active Diabetes mellitus with cataract Confirmed Active Dysautonomia Confirmed 10/19/18 Active Dry eyes Confirmed 11/18/16 Active Erectile dysfunction Confirmed 06/21/05 Active Erosive gastropathy - 08/05 EGD; normal EGD 12/06 Confirmed 07/29/20 Active Esophageal dysmotility Confirmed 07/21/20 Active Gastroesophageal reflux disease Confirmed 06/21/05 Active [...] Confirmed 05/13/13 Active Hyperparathyroidism Confirmed 06/07/21 Active Immunosuppressed status Confirmed Active Insomnia Confirmed 07/17/19 Active Ischemic cardiomyopathy Confirmed Active Left foot drop Confirmed 08/25/14 Active Leukopenia Confirmed 07/10/21 Active Low back pain Confirmed 06/15/15 Active Microscopic hematuria; [facility] Confirmed Active Neck pain Confirmed 08/29/19 Active Neuropathy due to diabetes mellitus Confirmed 10/11/10 Active H/o positive PPD, 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 INH Confirmed 03/07/06 Active Obese class I Confirmed Active Obstructive sleep apnea syndrome Confirmed 09/08/11 Active Osteopenia - minimal, on DXA 08/01 Confirmed 08/08/16 Active Peripheral neuropathy Confirmed Active Colon polyp Confirmed Active Presbyesophagus Confirmed 07/21/20 Active Pure hypercholesterolemia Confirmed 06/21/05 Active Tremor - Neurology at [facility] Confirmed 02/07/18 Active Type 2 DM with renal manifestations; [facility] Confirmed 05/04/16 Active 1EF 20-25% prior to transplant Vital Signs Most recent to oldest [Reference Range]: 1 Height 173 cm (11/03/22 10:31 AM) Weight 104.6 kg (11/03/22 10:31 AM) Oxygen Saturation [94-100 %] 99 % (11/03/22 10:31 AM) Pulse Rate [55-90 bpm] 103 bpm *H* (11/03/22 10:31 AM) Body Mass Index [18.5-24.99 kg/m2] 34.95 kg/m2 *>HHI* (11/03/22 10:31 AM) Blood Pressure [90-138/55-84 mm Hg] 129/ 73mm Hg (11/03/22 10:31 AM) Blood pressure sites Arm, right (11/03/22 10:31 AM) Social History Social History Type Response Smoking Status Former smoker, quit more than 30 days ago entered on: 10/24/22 Sex Patient Care team information Care Team Personnel Name: Siri Franklin Position: S RN Member Role: Primary Care Nurse Name: Nenita Song Position: S RN Supv Member Role: Primary Care Nurse Name: Sherice Mariscal RN Position: S RN Member Role: Primary Care Nurse Name: Najma Michael RN Position: S RN Member Role: Primary Care Nurse Name: Mallory Masterson NP Position: Reference Physician Member Role: Primary Care Nurse Address: Address: [address] [place] [phone]- [place] Name: Scarlet Rosenthal RN Position: [facility] SN RN Member Role: Primary Care Nurse Name: Khurram Hansen RN Position: [facility] RN Member Role: Primary Care Nurse Name: Dung Chen MD Position: [facility] Physician - Primary Care Member Role: PCP Address: Address: [address] [place] [phone]- [place] Name: Heydi Oviedo RN Position: [facility] Hospital Staffing Coordinator Member Role: Primary Care Nurse Name: Sandra Cat Position: [facility] Outreach Member Role: Lifetime Consulting Physician Name: Nicki Garcia RN Position: [facility] RN Member Role: Primary Care Nurse Name: Vane Davalos RN Position: [facility] RN Member Role: Primary Care Nurse Name: Luis Peters MD Position: [facility] Renal MD Member Role: Lifetime Consulting Physician Address: Address: [address] [facility], [place] [address]- [place] Name: Zulma Martinez MD Position: [facility] Cardiology MD Member Role: Lifetime Consulting Physician Address: Address: [address] [place] [address] [place] [phone]- [place] Name: Evelyn Jean-Baptiste RN Position: [facility] RN Member Role: Primary Care Nurse Name: Hilda Mcdonald RN Position: [facility] RN Member Role: Primary Care Nurse Care Team Related Persons Name: LUCIA BATEMAN Address: [address] [place] [address]
--- OUTSIDE RECORDS SUMMARY | 2023-05-15 08:50 | XMS_ITS | Continuity of Care Document ---
Author Name Unknown Organization [facility] Address [address] [place] [address]- Care Team Providers Care Mailing Machine Assistant Name Role Phone Dung Chen MD Primary Care Physician Encounter [facility] [place] Date(s): 01/08/20 - 02/07/20 [facility] [address] [place] [phone] [facility] Allergies, Adverse Reactions, Alerts Substance Reaction Severity Status lisinopril Active Immunizations Given and Recorded Vaccine Date Status Refusal Reason influenza virus vaccine, inactivated 02/12/14 Quinn rded influenza virus vaccine, inactivated 01/17/10 Give n influenza virus vaccine, inactivated 1 02/21/08 Gi randi Influenza Virus Vaccine (oldterm) 2 01/24/06 Given Influenza Inactive (IM) (oldterm) 02/17/05 Given Pneumococcal Vacc (oldterm) 3 07/14/04 Given 1Result Comment: Lot # [id number] Exp. #) SEP 23 2Admin Note: Pt states he received this seasons flu vaccine at [place]. 3Admin Note: Patient states he received pneumovax in 2004 at [place]. Medications aspirin 81 mg oral tablet 1 tablet = 81 mg, By Mouth, Daily, # 30 tablet, 0 Refills, Maintenance, 04/07/17 12:54:17, Tablet Start Date: 04/07/17 Status: Ordered Calcium And Vitamin D Combination By Mouth, 2 times a day, 0 Refills, Maintenance, 04/07/17 12:53:55 Start Date: 04/07/17 Status: Ordered diabetic shoes diabetic shoes, See Instructions, # 2 each, Refills 0, Tot. Refills 0, Maintenance, please include shoe inserts, 08/09/17 14:44:27 EDT, Compound Start Date: 08/09/17 Status: Ordered duloxetine 60 mg oral enteric coated capsule 1 capsule = 60 mg, By Mouth, 2 times a day, # 60 capsule, 5 Refills, Maintenance, 06/09/19 9:51:00 EST, EC Capsule, [facility] #[id number], 175, cm, 12/05/18 15:23:00 EDT, Height, 84.5, kg, 05/22/18 9:29:00 EST, Dry Weight Start Date: 06/09/19 Stop Date: 12/06/19 Status: Ordered Freestyle amalia 14-day reader Freestyle amalia 14-day reader, See Instructions, # 1 each, Refills 1, Tot. Refills 1, Maintenance, Used to test SM BG up to 4 times daily. Use with freestyle amalia sensors. For T2 DM/T11, 05/22/18 10:40:38 EST, Compound Start Date: 05/22/18 Status: Ordered Freestyle amalia 14-day sensors Freestyle amalia 14-day sensors, See Instructions, # 2 each, Refills 11, Tot. Refills 11, Maintenance, Used to test SM BG up to 5 times daily. Change sensor every 14 days. For T2 DM/T11., 05/22/18 10:40:42 EST, Compound Start Date: 05/22/18 Status: Ordered Freestyle Precision luis antonio-test strips Freestyle Precision luis antonio-test strips, See Instructions, # 150 each, Refills 11, Tot. Refills 11, Maintenance, Used to test SM BG up to 5 times daily. For T2 DM/e11, 05/22/18 10:40:45 EST, Compound Start Date: 05/22/18 Status: Ordered Humalog Kwik Pen 100 units/mL subcutaneous injection See Instructions, 10-22 units , subcutaneous infusion, 3 times a day before meals, 0 Refills, Maintenance, 04/07/17 12:50:16 EST Start Date: 04/07/17 Status: Ordered magnesium oxide 400 mg oral tablet TAKE 1 TABLET BY MOUTH TWICE A DAY Start Date: 04/07/17 Status: Ordered mycophenolic acid 360 mg oral delayed release tablet 2 tablet = 720 mg, By Mouth, 2 times a day, # 120 tablet, 0 Refills, Maintenance, 04/07/17 12:49:56, EC Tablet Start Date: 04/07/17 Status: Ordered OneTouch Verio Test Strips See Instructions, # 300 each, Refills 3, Tot. Refills 11, Maintenance, use to test blood sugar 3x day for T2DM E11.9. 90 day supply, 10/15/18 12:55:17 EDT, Compound Start Date: 10/15/18 Status: Ordered Plavix 75 mg oral tablet 75 mg, 1, tablet, By Mouth, Daily, # 90 tablet, Refills 3, Tot. Refills 3, Maintenance, 01/28/20 14:36:00 EDT, Route to Pharmacy Electronically, [facility]/pharm[facility] #[id number], 176, cm, 01/06/20 19:56:00 EDT, Height, 94.72, kg, 10/09/19 14:08:00 EDT, Dry Weight Start Date: 01/28/20 Stop Date: 01/22/21 Status: Ordered predniSONE 5 mg oral tablet 1 tablet = 5 mg, By Mouth, Daily, 0 Refills, Maintenance, 04/07/17 12:50:00 Start Date: 04/07/17 Status: Ordered rosuvastatin 20 mg oral tablet 1 tablet = 20 mg, By Mouth, Daily, 0 Refills, Maintenance, 04/07/17 12:49:42 Start Date: 04/07/17 Status: Ordered tacrolimus 1 mg oral capsule 3 capsule = 3 mg, By Mouth, Every 12 hours, # 180 capsule, 0 Refills, Maintenance, 12/05/18 15:24:26 EDT, Capsule Start Date: 12/05/18 Status: Ordered traZODone 100 mg oral tablet 200 mg, 2, tablet, By Mouth, Daily at bedtime, PRN, # 60 tablet, Refills 5, Tot. Refills 5, Maintenance, Insomnia, 05/27/19 16:08:00 EST, Route to Pharmacy Electronically, [facility]/pharmacy #[id number], 175, cm, 12/05/18 15:23:00 EDT, Height, 84.5, kg, 05/22/18... Start Date: 05/27/19 Stop Date: 11/23/19 Status: Ordered Problem List Condition Effective Dates Status Health Status Inform ant Adjustment Disorder with Mix ed Anxiety and Depressed Mood(Confirmed) Active Coronary artery disease(Confirmed) Active Hypercalcemia(Confirmed) Active Ischemic cardiomyopathy(Confirmed) Active Mild somatic symptom disorde r with predominant pain(Confirmed) Active Social History Social History Type Response Smoking Status Former smoker; [employer] user in household: No; Other: Quit 1997; entered on: 03/08/17 Sex
--- OUTSIDE RECORDS SUMMARY | 2023-05-15 08:50 | XMS_ITS | Patient Health Record ---
Author Name Unknown [facility] Address [address] [place] [address] Care Team Providers Care Kiln Placer Name Role Phone Dung Chen MD Primary Care Provider Unavail able Magdy Gutiérrez Unavailable [phone] ALLERGIES Allergen (clinical drug ingredient) Drug/Non Drug Allergy documented on EMR Reaction Allergy Type Onset Date Status lisinopril Lisinopril cough Drug Allergy Activ e RESULTS Component Value Reference Range Notes HEMOGLOBIN A1C (GLYCOHEMOGLO BIN) Reviewed date:09/22/2022 02:49:54 PM Interpretation: Performing Lab: Notes/Report: TOTAL HEMOGLOBIN (HGBA1C) HEMOGLOBIN A1C (HH) HEMOGLOBIN A1C % (HH) 7 ESTIMATED AVG GLUCOSE REASON FOR REFERRAL No Information MEDICATIONS Medication SIG (Take, Route, Frequency, Duration) Notes Start Date End Date Status Extra Depth Orthopedic Shoes (1 Pair) with Customized Heat Molded Multidensity Innersoles (3 Pair) as directed Dx: IDDM/Polyneuropathy (E10.42), Hammertoe Foot Deformity (M20.41,M20.42), Preulcerative Skin Lesion(s) (L85.1) 09/22/2022 Active Losartan Potassium 50 MG Active Calcium + D 600-200 MG-UNIT 1 tablet with food Orally Once a day Active Vitamin D 82265 1 tablet Orally Once a day Active Aspirin 81 MG 1 tablet Orally Once a day for 30 day(s) Active Vitamin C 500 MG 1 tablet Orally twic e a day Active Tacrolimus 9 Orally Twice a day Active predniSONE 5 MG 1 tablet with food o r milk Orally Once a day Active Omeprazole 20 MG 1 capsule Orally Onc e a day for 30 day(s) Active NovoLOG Active Primidone Not-Taking Multivitamins Orally Active Plavix Not-Taking Lantus 100 UNIT/ML 0.02 ml Subcutaneous Once a day for 30 day(s) Active Klor-Con Not-Taking Cilostazol Active Crestor 20 MG 1 tablet Orally Once a day Active Iodosorb 0.9 % as directed External ly Apply to ulceration daily with dry sterile dressing for 30 days 05/05/2022 Active CellCept 1500 Orally Twice a day Active Vitamin E 400 UNIT 1 capsule Orally twi ce a day Active IMMUNIZATIONS Vaccine Route Administration Date Status Comme nts COVID-19 Pfizer BioNTech Vaccine Unknown 05/17/2020 Adm inistered COVID-19 Pfizer BioNTech Vaccine Unknown 06/13/2020 Adm inistered Influenza Unknown 02/03/2015 Administered Influenza Unknown 03/01/2016 Administered Influenza Unknown 03/02/2017 Administered Influenza Unknown 03/02/2017 Refused Influenza Unknown 02/13/2018 Administered Influenza Unknown 02/01/2019 Administered Pneumococcal Unknown 02/03/2015 Administered Pneumococcal Unknown 04/24/2016 Administered SOCIAL HISTORY Tobacco Use: Social History Observation Description Date Details (start date - stop date) Former Smoker NA - 08/30/1997 Sex Assigned At : Social History Observation Description Sex Assigned At Unknown Tobacco Use/Smoking Question Answer Notes Are you a: former smoker When did you stop smoking? 08/30/1997 Additional Findings: Tobacco Non-User Ex-cigaret te smoker amount unknown Alcohol Screen Question Answer Notes Did you have a drink containing alcohol in the p ast year? No Points 0 Interpretation Negative Tobacco use other than smoking: Question Answer Notes Are you an other tobacco user? 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) Active confirmed Chronic ulcer o f foot (699155896) Problem Type 1 diabetes mellitus with diabetic peripheral angiopathy without gangrene (E10.51) Active confirmed 06653491 Problem Ulcer of left foot with fat layer exposed (L97.522) Active confirmed 155880157 VITAL SIGNS Height 5ft 9in in 09/22/2022 Weight 220 lbs 09/22/2022 BMI 32.48 kg/m2 09/22/2022 PROCEDURES Procedure Date Ordered Date Performed Result Body Sit e 99599-OVAKMHP NAIL, 6 OR MORE 09/22/2022 N/A 82353-BOJM SKIN LESIONS, 2 TO 4 09/22/2022 N/A Encounters Encounter Location Date Provider Diagnosis [address] [address] [facility] [address] [address] [facility] [address] [address] 09/22/[facility]22 Magdy Gutiérrez Type 1 diabetes mellitus with diabetic polyneuropathy E10.42 ; Tinea unguium B35.1 ; Non-pressure chronic ulcer of right heel and 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 L97.412 ; Type 1 diabetes mellitus with diabetic peripheral angiopathy without gangrene E10.51 ; Other hammer toe(s) (acquired), right foot M20.41 ; Other hammer toe(s) (acquired), left foot M20.42 and Ulcer of left foot with fat layer exposed L97.[address] [address] 12/20/2022 [facility] [address] [address] 12/22/2022 Magdy Gutiérrez ASSESSMENTS Encounter Date Diagnosis Assessment Notes Treatment Notes Treatment Clinical Notes 09/22/2022 Type 1 diabetes mellitus with diabetic polyneuropathy (ICD-10 - E10.42) 09/22/2022 Tinea unguium (ICD-1 0 - B35.1) 09/22/2022 Non-pressure chronic ulcer of right heel and 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 (ICD-10 - L97.412) 09/22/2022 Type 1 diabetes mellitus with diabetic peripheral angiopathy without gangrene (ICD-10 - E10.51) 09/22/2022 Other hammer toe(s) (acquired), right foot (ICD-10 - M20.41) Patient Educated with: DIABETIC FOOT CARE INSTRUCTIONS.pdf (DIABETIC FOOT CARE INSTRUCTIONS.pdf ) 09/22/2022 Other hammer toe(s) (acquired), left foot (ICD-10 - M20.42) 09/22/2022 Ulcer of left foot with fat layer exposed (ICD-10 - L97.522) PLAN OF TREATMENT Pending Test Test Name Order Date Hemoglobin A1c 12/03/2014 61227-WRZBIAF NAIL, 6 OR MORE 12/03/2014 42819-WUPPRCQ NAIL, 6 OR MORE 05/26/2014 52159-IGIBOCC NAIL, 6 OR MORE 09/10/2014 64035-JHDSOHG NAIL, 6 OR MORE 06/13/2013 21687-OHKABZN NAIL, 6 OR MORE 09/11/2013 33774-WNTKQLX NAIL, 6 OR MORE 12/04/2013 80700-QHOOICF NAIL, 6 OR MORE 03/05/2014 98522-ZEFOFGZ NAIL, 6 OR MORE 03/04/2015 50464-EGHBVIF NAIL, 6 OR MORE 05/28/2015 46538-ZOQVREA NAIL, 6 OR MORE 08/27/2015 83895-CHVUTIP NAIL, 6 OR MORE 11/26/2015 99303-ZVAGJSF NAIL, 6 OR MORE 02/25/2016 94451-HJOJXSI NAIL, 6 OR MORE 06/01/2016 76828-NCBHCLC NAIL, 6 OR MORE 08/31/2016 71759-IJSOHHD NAIL, 6 OR MORE 12/01/2016 40404-FLHGCNF NAIL, 6 OR MORE 03/02/2017 22081-GLKUETZ NAIL, 6 OR MORE 06/01/2017 91597-ZWFNENH NAIL, 6 OR MORE 08/31/2017 10339-KRCNULL NAIL, 6 OR MORE 11/30/2017 15448-ANFLTSY NAIL, 6 OR MORE 03/12/2018 87474-TLPRFYH NAIL, 6 OR MORE 06/11/2018 02017-UNAZNBF NAIL, 6 OR MORE 09/05/2018 40947-EDJWFAK NAIL, 6 OR MORE 11/26/2018 92261-FNUUJYI NAIL, 6 OR MORE 02/25/2019 34719-WXVMXML NAIL, 6 OR MORE 05/27/2019 74718-AFCDOGE NAIL, 6 OR MORE 08/26/2019 92160-VUHKIST NAIL, 6 OR MORE 11/25/2019 52934-AYJGKNN NAIL, 6 OR MORE 02/27/2020 10769-BHVZQUO NAIL, 6 OR MORE 05/28/2020 48778-HBLQGDZ NAIL, 6 OR MORE 08/27/2020 55225-IZAVPGY NAIL, 6 OR MORE 12/03/2020 59402-PMACQLI NAIL, 6 OR MORE 03/04/2021 06490-QPBBMJU NAIL, 6 OR MORE 07/26/2021 85245-ZYVTRCQ NAIL, 6 OR MORE 11/04/2021 33666-TAPALOP NAIL, 6 OR MORE 02/03/2022 62170-AGUMFHE NAIL, 6 OR MORE 05/05/2022 34431-TZNFIEW NAIL, 6 OR MORE 09/22/2022 84344-FOLELJY NAIL, 6 OR MORE 03/21/2013 34503-Ghyfsvrm Plate 03/21/2013 00961-Pskdxxlc Plate Each Additional 08/2012 24298-CZAD SKIN LESIONS, 2 TO 4 11/25/19 93864-MQDI SKIN LESIONS, 2 TO 4 09/23/19 23 04874-VUHW SKIN LESIONS, 2 TO 4 03/21/20 46127-RRWA SKIN LESIONS, 2 TO 4 05/05/19 23 29047-HHZD SKIN LESIONS, 2 TO 4 02/04/20 97382-OOPP SKIN LESIONS, 2 TO 4 11/05/19 84716-KYHL SKIN LESIONS, 2 TO 4 07/27/19 43869-UCME SKIN LESIONS, 2 TO 4 03/04/20 92837-EWEG SKIN LESIONS, 2 TO 4 12/04/19 10892-LXGK SKIN LESIONS, 2 TO 4 08/28/19 87395-BTWW SKIN LESIONS, 2 TO 4 05/28/19 81514-FEMU SKIN LESIONS, 2 TO 4 02/27/20 53208-TGUI SKIN LESIONS, 2 TO 4 08/26/19 12597-OVNA SKIN LESIONS, 2 TO 4 05/27/19 83325-YBXR SKIN LESIONS, 2 TO 4 11/11/20 19 47577-VIJP SKIN LESIONS, 2 TO 4 11/27/19 19 97348-BTGK SKIN LESIONS, 2 TO 4 09/06/19 19 42876-OSGI SKIN LESIONS, 2 TO 4 06/11/19 19 81377-GSNO SKIN LESIONS, 2 TO 4 03/12/20 18 25765-OBLS SKIN LESIONS, 2 TO 4 12/01/19 18 50018-NTYA SKIN LESIONS, 2 TO 4 09/01/19 18 23910-AXBY SKIN LESIONS, 2 TO 4 06/01/19 18 48780-KFMU SKIN LESIONS, 2 TO 4 03/02/20 17 64824-LXQD SKIN LESIONS, 2 TO 4 12/02/19 17 05053-ZPFX SKIN LESIONS, 2 TO 4 06/01/19 17 73347-FPPU SKIN LESIONS, 2 TO 4 09/01/19 17 78962-RNKB SKIN LESIONS, 2 TO 4 02/25/20 16 03454-ZJAS SKIN LESIONS, 2 TO 4 11/26/19 16 96258-NIIN SKIN LESIONS, 2 TO 4 08/27/19 16 94135-GLFN SKIN LESIONS, 2 TO 4 05/28/19 16 98663-VJCF SKIN LESIONS, 2 TO 4 03/05/20 14 22142-RHKY SKIN LESIONS, 2 TO 4 12/05/19 14 70031-VXID SKIN LESIONS, 2 TO 4 09/12/19 14 14441-JZSD SKIN LESIONS, 2 TO 4 06/13/19 14 13263-GIJZ SKIN LESIONS, 2 TO 4 09/11/19 15 07013-JYMN SKIN LESIONS, 2 TO 4 05/26/19 15 98219-UWMZ SKIN LESIONS, 2 TO 4 12/04/19 15 79039-AQEN SKIN LESIONS, 2 TO 4 03/04/20 15 47417-Rtxs. Subungual Hematoma 0 Insurance Providers Payer Name Payer Address Payer Phone Subscriber Number Group Number Insured Name Patient Relationship to Insured Coverage Start Date Coverage End Date Medicare National [employer] [address] [place] [address] [id number] Tony Thompson Self - patient is the insured 5 [employer] Secondary to Medicare [address] [place] [address] [id number] Tony Thompson Self - patient is the insured MEDICAL (GENERAL) HISTORY Medical History History ICD Code angina cholesterol diabetic heart disease chicken pox vascular grafts transfusions reflux covid-19 Surgical History Surgery Date(Month/Year) tripple by pass 08/1997 LVAD 01/2012 Heart transplant 03/2013 cataract surgery 09/2014,12/2014 heart surgery unspecified 04/19/15 Stent left knee 07/2018 neck surgery 11/2019 Stent left knee 12/10/19 back surgery 09/21/20 Hospitalization History Reason Date(Month/Year) [facility]- dehydrated, passed out, blood clot in leg 08/2022 [facility], Fell 04/30/22 [facility] in [place] for 8 days 07/03/21 [facility] [place], Covid relate d issues 06/24/21 [facility] [place]id 06/08 [facility], Covid 04/26/21 [facility], ENG 07/2020 [facility] Issues with Diabetes 2020 [facility] stent left knee 12/10/19 [facility] Neck surgery 11/2019 [facility] F[facility] 05/2019 [facility], stent left knee 07/2018 [facility] lower back and leg pain 11/22/17 Colonoscopy 09/2016 Heart transplant in [place] 04/19/15 [facility] -heart transplant 04/16-05/10/13 [facility] blood clots in the pump for 10 day stay 01/2013
--- OUTSIDE RECORDS SUMMARY | 2023-05-15 08:50 | XMS_ITS | Continuity of Care Document ---
Author Name Unknown Organization [facility] Address [address] [place] [address]- Care Team Providers Care Grocery Stocker Name Role Phone Dung Chen MD Primary Care Physician Encounter [facility] Date(s): 06/11/19 - 06/21/19 [facility] [address] [place] [address]- [facility] Attending Physician: Scott Mcintosh Admitting Physician: AdmtrScott Referring Physician: [id number] Allergies, Adverse Reactions, Alerts Substance Reaction Severity [...] he received this seasons flu vaccine at [place]. 3Admin Note: Patient states he received pneumovax in 2004 at [place]. Medications aspirin 81 mg oral tablet 1 [...] Refills, Maintenance, 06/09/19 9:51:00 EST, EC Capsule, [facility]/pharmacy #[id number], 175, cm, 12/05/18 15:23:00 EDT, Height, [...] Pen 100 units/mL subcutaneous injection See Instructions, Inject up to 30 units SC 3 times daily with meals.for T2DM/E11. 90 days, # 75 mL,3 Refills, Maintenance, 05/22/18 10:02:30 EST, Solution Start Date: 05/22/18 Status: Ordered Humalog Kwik Pen 100 units/mL subcutaneous injection See Instructions, 20-22 units , subcutaneous infusion, 3 times a day before meals, 0 Refills, Maintenance, 04/07/17 12:50:16 Start Date: 04/07/17 Status: Ordered Lantus Inj Subcutaneous Infusion, 0 Refills, Maintenance, 12/05/18 15:24:03 EDT Start Date: 12/05/18 Status: Ordered magnesium oxide 400 mg oral [...] EDT, Compound Start Date: 10/15/18 Status: Ordered predniSONE 5 mg oral tablet 1 tablet = 5 mg, By Mouth, Daily, 0 Refills, Maintenance, 04/07/17 12:50:00 Start Date: 04/07/17 Status: Ordered Prograf 1 mg oral capsule See Instructions, 3.5 BID Start Date: 04/07/17 Status: Ordered rosuvastatin 20 [...] 05/27/19 16:08:00 EST, Route to Pharmacy Electronically, [facility]/pharmacy #[id number], 175, cm, 12/05/18 15:23:00 EDT, Height, [...]
--- OUTSIDE RECORDS SUMMARY | 2023-05-15 08:50 | XMS_ITS | Continuity of Care Document ---
Author Name Unknown Organization [facility] Address [address] [place] [address]- Care Team Providers Care Edge Cutting Machine Operator Name Role Phone Dung Chen MD Primary Care Physician [phone] Encounter [facility] Date(s): 03/13/23 - 04/12/23 [facility] [address] [place], [place] [address] Allergies, Adverse Reactions, Alerts [...] virus vaccine, inactivated 03/07/06 Quinn rded SARS-CoV-2(COVID-19)mRNA-LNP vac([id number]) 02/06/23 Recorded tetanus/diphtheria/pertussis, acel(Tdap) 2 12/08/22 Given tetanus/diphtheria/pertussis, acel(Tdap) 03/27/12 Recorded pneumococcal 20-valent conjugate vaccine 3 12/08/22 Given NMVI-[id number] 12y+ bivalent booster vax 04/15/22 Recorded SARS-CoV-2 mRNA (ihdevtm-isbp-vjsvy) vax 07/18/21 Recorded SARS-CoV-2 (COVID-19) mRNA BNT-162b2 [...] 2795CA Exp. #) SEP 23 2Result Comment: [facility] [id number] 3Result Comment: [facility] [id number] 4Admin Note: Pt states he received this seasons flu vaccine at [place]. 5Admin Note: Patient states he received pneumovax in 2004 at [place]. Medications Albuterol 0.083% inhalation roger Refills 0, Maintenance, 03/20/23 8:54:00 EST Start Date: 03/20/23 Status: Ordered amLODIPine 10 mg oral tablet 10 mg, 1, tablet, By Mouth, Daily, # 90 tablet, Refills 3, Tot. Refills 3, Maintenance, 11/03/22 11:30:00 EDT, Route to Pharmacy Electronically, [facility] ([facility] ), Partial fill upon patient request if the prescription is for... Start Date: 11/03/22 Status: Ordered Anoro Ellipta 62.5 mcg-25 mcg/inh inhalation powder INHALE 1 PUFF INTO THE LUNGS DAILY Start Date: 03/20/23 Status: Ordered aspirin 81 mg oral delayed release tablet 81 mg, 1, tablet, By Mouth, Daily, # 30 tablet, Refills 0, Tot. Refills 0, Maintenance, 06/08/21 11:45:00 EST, Route to Pharmacy Electronically, [facility]/pharmacy #[id number], Partial fill upon patient request if the prescription is for a schedule II opioid drug... Start Date: 06/08/21 Stop Date: 07/08/21 Status: Ordered benzonatate 100 mg oral capsule TAKE 1 CAPSULE BY MOUTH 3 TIMES A DAY FOR 10 DAYS Start Date: 03/20/23 Status: Ordered duloxetine 20 mg oral enteric [...] 3 Refills, Maintenance, 01/19/23 18:26:00 EDT, [facility] [place],[facility], Partial fill upon patient request [...] opioid drug. Start Date: 11/03/22 Status: Ordered insulin lispro 100 u/ml subcutaneous injection 2-10 units, Subcutaneous Injection, 3 times a day before meals, << Sliding Scale Comments >> 150 - 199 2 units Call if less than 70 200 - 249 4 units 250 - 299 6 units 300 - 349 8 units 350 - 399 10 units Call if greater than 400 <<... Start Date: 03/06/23 Status: Ordered magnesium oxide 400 mg oral tablet 1 tablet = 400 mg, By Mouth, 2 times a day, 0 Refills, Maintenance, 03/20/23 9:12:00 EST, Partial fill upon patient request if the prescription is for a schedule II opioid drug. Start Date: 03/20/23 Status: Ordered mycophenolic acid 360 mg oral delayed release tablet 1 tablet = 360 mg, By Mouth, 2 times a day, Maintenance, 03/06/23 14:46:00 EST, EC Tablet Start Date: 03/06/23 Status: Ordered oxyCODONE 5 mg oral capsule [...] 2, tablet, By Mouth, Daily at bedtime, Maintenance, 03/06/23 14:41:00 EST Start Date: 03/06/23 Status: Ordered Tresiba FlexTouch 200 units/mL subcutaneous solution 0 Refills, Maintenance, 03/20/23 8:54:00 EST, Partial fill upon patient request if the prescriptionis for a schedule II opioid drug. Start Date: 03/20/23 Status: Ordered Trulicity Pen 0.75 mg/0.5 mL subcutaneous solution 0.5 mL = 0.75 mg, Subcutaneous Injection, Every week, rotate injection sites, # 6 mL, 0 Refills, Maintenance, 12/08/22 11:17:00 EDT, Solution, [facility] ([facility]), Partial fillupon patient request if the prescription is for a s... Start Date: 12/08/22 Status: Ordered valsartan 160 mg oral tablet 160 mg, 1, tablet, By Mouth, Daily, # 90 tablet, Refills 0, Tot. Refills 0, Maintenance, 03/12/23 21:14:00 EST, Route to Pharmacy Electronically, [facility], Partial fill upon patient request if the prescription is for a schedule II opioid Start Date: 03/12/23 Status: Ordered Problem List Condition Confirmation Course Effective Dates Status Health Status Informant Unsteady gait Confirmed Active Amputated toe of left foot Confirmed Active Weakness generalized Confirmed Active AICD (automatic cardioverter/defibrillato r) present Confirmed 06/21/05 Active BPH - [facility] Confirmed 03/14/21 Active Chronic kidney disease stage 3 Confirmed 05/17/11 Active CAD; s/p CABG 1997, [place] 2006 w/stent; heart transplant 04/30 Confirmed Active Diabetes mellitus with PVD; stents; [facility] Confirmed Active Diabetes mellitus with cataract Confirmed Active Rhinovirus infection Confirmed Active Dysautonomia Confirmed 10/19/18 Active Dry eyes Confirmed 11/18/16 Active Erectile dysfunction Confirmed 06/21/05 Active Esophageal dysmotility Confirmed 07/21/20 Active Diabetic foot ulcer; Dr Ralph Confirmed Active Gastroesophageal reflux disease Confirmed 06/21/05 Active DAY (generalized anxiety disorder) Confirmed Active Glaucoma suspect Confirmed 07/15/13 Active History of depression Confirmed 12/17/15 Active Heart transplant status 1 Confirmed Active History of DVT of lower extremity Confirmed Active History of venous thrombosis - R IJ complete, partial on L; AC x3mo Confirmed 05/13/13 Active Hyperparathyroidism Confirmed 06/07/21 Active Hypertension Confirmed Active Hypokalemia Confirmed Active Hypomagnesemia Confirmed Active Immunosuppressed status Confirmed Active Insomnia Confirmed 07/17/19 Active Ischemic cardiomyopathy Confirmed Active Left foot drop Confirmed 08/25/14 Active Leukopenia Confirmed 07/10/21 Active Low back pain Confirmed 06/15/15 Active Microscopic hematuria; [facility] Confirmed Active Neck pain Confirmed 08/29/19 Active Large fiber neuropathy Confirmed Active Neuropathy due to diabetes mellitus Confirmed 10/11/10 Active Nonproliferative diabetic retinopathy Confirmed Active H/o positive PPD, s/p 9mo INH Confirmed 03/07/06 Active Obese class I Confirmed Active Obstructive sleep apnea syndrome Confirmed 09/08/11 Active Osteopenia - minimal, on DXA 08/01 Confirmed 08/08/16 Active Peripheral neuropathy Confirmed Active Pneumonia Confirmed Active Colon polyp Confirmed Active Presbyesophagus Confirmed 07/21/20 Active Pure hypercholesterolemia Confirmed 06/21/05 Active Diabetic nephropathy associated with type 2 diabetes mellitus Confirmed Active Low serum vitamin B12 Confirmed Active Tremor - Neurology at [facility] Confirmed 02/07/18 Active Type 2 DM with renal manifestations; [facility] Confirmed 05/04/16 Active Vitamin D deficiency Confirmed Active 1EF 20-25% prior to transplant Social History Social History Type Response Smoking Status Former smoker, quit more than 30 days ago entered on: 10/24/22 Sex Patient Care team information Care Team Personnel Name: Nenita Song Position: [facility] RN Supv Member Role: Primary Care Nurse Name: Sherice Mariscal RN Position: [facility] RN Member Role: Primary Care Nurse Name: Najma Michael RN Position: [facility] RN Member Role: Primary Care Nurse Name: Mallory Masterson NP Position: Reference Physician Member Role: Primary Care Nurse Address: Address: [address] [place] [phone] [place] Name: Scarlet Rosenthal RN Position: [facility] SN RN Member Role: Primary Care Nurse Name: Dung Chen MD Position: [facility] Physician - Primary Care Member Role: PCP Address: Address: [address] [place] [phone]- [place] Name: Heydi Oviedo RN Position: [facility] Hospital Phosphatic Fertilizer Supervisor Member Role: Primary Care Nurse Name: Mercy Veliz RN Position: [facility] RN Member Role: Primary Care Nurse Name: Sandra Cta Position: [facility] Outreach Member Role: Lifetime Consulting Physician Name: Nicki Garcia RN Position: [facility] RN Member Role: Primary Care Nurse Name: Vane Davalos RN Position: [facility] RN Member Role: Primary Care Nurse Name: Belinda Stevenson RN Position: [facility] SN RN Member Role: Primary Care Nurse Name: Luis Peters MD Position: [facility] Renal MD Member Role: Lifetime Consulting Physician Address: Address: [address] [facility], [place] [address]- Name: Zulma Martinez MD Position: [facility] Cardiology MD Member Role: Lifetime Consulting Physician Address: Address: [address] [place] [address]- Name: Evelyn Jean-Baptiste RN Position: [facility] RN Member Role: Primary Care Nurse Name: Hilda Mcdonald RN Position: [facility] RN Member Role: Primary Care Nurse Care Team Related Persons Name: LUCIA BATEMAN Address: home [address] [place] [address]
--- OUTSIDE RECORDS SUMMARY | 2023-05-15 08:50 | XMS_ITS | Continuity of Care Document ---
Author Name Unknown Organization [facility] Address [address] [place] [address]- Care Team Providers Care Mechanical Cad Drafter Name Role Phone Dung Chen MD Primary Care Physician Encounter [facility] Date(s): 02/03/23 - 03/05/23 [facility] [address] [place], [place] [address] Allergies, Adverse Reactions, Alerts Substance Reaction [...] virus vaccine, inactivated 03/07/06 Quinn rded SARS-CoV-2(COVID-19)mRNA-LNP vac([id number]) 02/06/23 Recorded tetanus/diphtheria/pertussis, acel(Tdap) 2 12/08/22 Given tetanus/diphtheria/pertussis, acel(Tdap) 03/27/12 Recorded pneumococcal 20-valent conjugate vaccine 3 12/08/22 Given [id number] 12y+ bivalent booster vax 04/15/22 Recorded SARS-CoV-2 mRNA ([id number]) vax 07/18/21 Recorded SARS-CoV-2 (COVID-19) mRNA BNT-162b2 [...] [id number] Exp. #) SEP 23 2Result Comment: [facility] [id number] 3Result Comment: [facility] [id number] 4Admin Note: Pt states he received this seasons flu vaccine at [facility]. 5Admin Note: Patient states he received pneumovax in 2004 at [facility]. Medications amLODIPine 10 mg oral tablet 10 [...] 06/08/21 11:45:00 EST, Route to Pharmacy Electronically, [facility]/pharmacy #[id number], Partial fill upon patient request if the [...] 3 Refills, Maintenance, 01/19/23 18:26:00 EDT, [facility], Partial fill upon patient request [...] Maintenance, 08/23/22 12:58:00 EDT, [facility] ([facility]), 176, cm... Start Date: 08/23/22 Status: Ordered insulin degludec (concentrated) 200 units/mL subcutaneous solution See Instructions, 30 units in the AM and 30 units in the PM 30 days supply, # 75 mL, 3 Refills, Maintenance, 10/15/22 10:03:00 EDT, [facility], Partial fill upon patient request [...] 10/12/22 22:48:00 EDT, Route to Pharmacy Electronically, [facility] ([facility]), 173, cm, 10/12/22 19:31:00 EDT, Height, 106.... Start Date: 10/12/22 Status: Ordered Trulicity Pen 0.75 mg/0.5 mL subcutaneous solution 0.5 mL = 0.75 mg, Subcutaneous Injection, Every week, rotate injection sites, # 6 mL, 0 Refills, Maintenance, 12/08/22 11:17:00 EDT, Solution, [facility] ([facility]), Partial fillupon patient request if the prescription is for a s... Start Date: 12/08/22 Status: Ordered valsartan 160 mg oral tablet 160 mg, 1, tablet, By Mouth, Daily, # 90 tablet, Refills 0, Tot. Refills 0, Maintenance, 02/12/23 22:19:00 EDT, Route to Pharmacy Electronically, [facility]/pharmacy #[id number], Partial fill upon patient requestif the prescription is for a schedule II opioid channing.Erik. Start Date: 02/12/23 Status: Ordered Problem List Condition Confirmation Course Effective Dates Status Health Status Informant Unsteady gait Confirmed Active Amputated toe of left foot Confirmed Active AICD (automatic cardioverter/defibrillato r) present Confirmed 06/21/05 Active BPH - [facility] Confirmed 03/14/21 Active Chronic kidney disease stage 3 Confirmed 05/17/11 Active CAD; s/p CABG 1997, [place] 2006 w/stent; heart transplant 04/30 Confirmed Active Diabetes mellitus with PVD; stents; [facility] Confirmed Active Diabetes mellitus with [...] transplant status 1 Confirmed Active History of venous thrombosis - R IJ complete, partial on L; AC x3mo Confirmed 05/13/13 Active Hyperparathyroidism Confirmed 06/07/21 Active Hypertension Confirmed Active Immunosuppressed status Confirmed Active Insomnia Confirmed 07/17/19 Active Ischemic cardiomyopathy Confirmed Active Left foot drop Confirmed 08/25/14 Active Leukopenia Confirmed 07/10/21 Active Low back pain Confirmed 06/15/15 Active Microscopic hematuria; [facility] Confirmed Active Neck pain Confirmed 08/29/19 Active Neuropathy due to diabetes mellitus Confirmed 6/27/11 Active Nonproliferative diabetic retinopathy Confirmed Active H/o positive PPD, s/p 9mo INH Confirmed 03/07/06 Active Obese class I Confirmed Active Obstructive sleep apnea syndrome Confirmed 09/08/11 Active Osteopenia - minimal, on DXA 08/01 Confirmed 08/08/16 Active Peripheral neuropathy Confirmed Active Colon polyp Confirmed Active Presbyesophagus Confirmed 07/21/20 Active Pure hypercholesterolemia Confirmed 06/21/05 Active Tremor - Neurology at [facility] Confirmed 02/07/18 Active Type 2 DM with renal manifestations; [facility] Confirmed 05/04/16 Active 1EF 20-25% prior to transplant Social History Social History Type Response Smoking Status Former smoker, quit more than 30 days ago entered on: 10/24/22 Sex Patient Care team information Care Team Personnel Name: Nenita Song Position: [facility] RN Supv Member Role: Primary Care Nurse Name: Sherice Mariscal RN Position: [facility] RN Member Role: Primary Care Nurse Name: Najma Michael RN Position: [facility] RN Member Role: Primary Care Nurse Name: Mallory Masterson NP Position: Reference Physician Member Role: Primary Care Nurse Address: Address: [address] [place] [address]- [place] Name: Scarlet Rosenthal RN Position: [facility] SN RN Member Role: Primary Care Nurse Name: Dung Chen MD Position: [facility] Physician - Primary Care Member Role: PCP Address: Address: [address] [address]- [place] Name: Heydi Oviedo RN Position: [facility] Hospital Bonding Equipment Operator Member Role: Primary Care Nurse Name: Mercy Veliz RN Position: [facility] RN Member Role: Primary Care Nurse Name: Sandra Cat Position: [facility] Outreach Member Role: Lifetime Consulting Physician Name: Nicki Garcia RN Position: [facility] RN Member Role: Primary Care Nurse Name: Vane Davalos RN Position: [facility] RN Member Role: Primary Care Nurse Name: Belinda Stevenson RN Position: [facility] SN RN Member Role: Primary Care Nurse Name: Luis Peters MD Position: [facility] Renal MD Member Role: Lifetime Consulting Physician Address: Address: [address] [facility] [address] [facility] [place] [address]- [place] Name: Zulma Martinez MD Position: [facility] Cardiology MD Member Role: Lifetime Consulting Physician Address: Address: [address] [place] [address]- Name: Evelyn Jean-Baptiste RN Position: [facility] RN Member Role: Primary Care Nurse Name: Hilda Mcdonald RN Position: [facility] RN Member Role: Primary Care Nurse Care Team Related Persons Name: LUCIA BATEMAN Address: [place] [address]
--- OUTSIDE RECORDS SUMMARY | 2023-05-15 08:51 | XMS_ITS | Continuity of Care Document ---
Author Name Unknown Organization [facility] Address [address] [place] [address]- Care Team Providers Care Director Radio News Name Role Phone Dung Chen MD Primary Care Physician [phone] Encounter [facility] Date(s): 05/24/22 - 06/23/22 [facility] [address] [place] [address] Allergies, Adverse Reactions, Alerts Substance Reaction Severity Status lisinopril Active Immunizations Given and Recorded Vaccine Date Status Refusal Reason SARS-CoV-2 mRNA ([id number]) vax 07/18/21 Recorded SARS-CoV-2 (COVID-19) mRNA BNT-162b2 [...] he received this seasons flu vaccine at [facility]. 3Admin Note: Patient states he received pneumovax in 2004 at [facility]. Medications amLODIPine 5 mg oral tablet 5 mg, 1, tablet, By Mouth, Daily, # 90 tablet, Refills 1, Tot. Refills 1, Maintenance, 05/12/22 11:54:00 EST, Route to Pharmacy Electronically, [facility] ([facility] ), Partial fill upon patient request if the prescription is for a... Start Date: 05/12/22 Status: Ordered aspirin 81 mg oral delayed release tablet 81 mg, 1, tablet, By Mouth, Daily, # 30 tablet, Refills 0, Tot. Refills 0, Maintenance, 06/08/21 11:45:00 EST, Route to Pharmacy Electronically, [facility]/pharmacy #[id number], Partial fill upon patient request if the prescription is for a schedule II opioid drug... Start Date: 06/08/21 Stop Date: 07/08/21 Status: Ordered doxycycline monohydrate 100 mg oral tablet 1 tablet = 100 mg, By Mouth, 2 times a day, for 7 days, as needed for cellulitis, # 14 tablet, 0 Refills, Acute 06/24/22 10:57:00 EST, 06/17/22 10:57:00 EST, [facility]/pharmacy #[id number], Partial fill upon patient request if the prescription is for a schedule I... Start Date: 06/17/22 Stop Date: 06/24/22 Status: Ordered duloxetine 20 mg oral enteric [...] 0 Refills, Maintenance, 04/12/22 19:33:00 EST, Capsule, [id number], Partial fill upon patient [...] Start Date: 09/25/21 Status: Ordered Freestyle Nona Monitor Freestyle Nona [...] EDT,... Start Date: 03/11/22 Status: Ordered gabapentin 300 mg oral capsule 1, capsule, By Mouth, 3 times a day, # 270 capsule, Refills 5, Tot. Refills 5, 02/03/22 9:07:00 EDT, Route to Pharmacy Electronically, [facility] ([facility]), 175.3, cm, 01/03/22 13:47:00 EDT, Height, 95.3, kg, 12/06/21 7:36:00 ED... Start Date: 02/03/22 Status: Ordered Humalog Kwik Pen 100 units/mL subcutaneous injection See Instructions, e11.65, use as back up to failed inpen device. following sliding scale, up to 16 units subcutaneously three times a day with meals. max daily dose 48 units, # 15 mL, 1 Refills, Acute 10/17/22 15:26:00 EDT, 04/19/22 15:24:00 EST, [facility]... Start Date: 04/19/22 Stop Date: 10/17/22 Status: Ordered insulin degludec (concentrated) 200 units/mL subcutaneous solution See Instructions, 42 units in the AM and 52 units in the PM 90 days supply, # 75 mL, 3 Refills, Maintenance, 05/24/22 12:19:00 EST, [facility] ([facility] ), Partial fill upon patient request if the prescription is for a schedule II... Start Date: 05/24/22 Status: Ordered mycophenolic acid 360 mg oral delayed release tablet 2 tablet = 720 mg, By Mouth, 2 times a day Start Date: 06/22/21 Status: Ordered pantoprazole 40 mg oral delayed release tablet 1 tablet = 40 mg, By Mouth, 2 times a day, # 180 tablet, 1 Refills, Maintenance, 04/03/22 17:37:00 EST, 175.3, cm, 01/03/22 13:47:00 EDT, Height, 95.3, kg, 12/06/21 7:36:00 EDT, Dry Weight Start Date: 04/03/22 Status: Ordered Pen Morenci, 31 G x 8 mm BD Ultra Fine III See Instructions, # 300 each, Refills 6, Tot. Refills 6, Maintenance, use as directed for Type 2 Diabetes Mellitus for 5 injections per day E11.9, 12/09/21 9:52:00 EDT, Supply, 175.3, cm, 12/06/21 7:36:00 EDT, Height, 95.3, kg, 12/06/21 7:36:00 EDT... Start Date: 12/09/21 Stop Date: 08/31/23 Status: Ordered Pen Morenci, 32 G x 4 mm BD Ultra [...] at bedtime, PRN, # 180 tablet, Refills 1, Tot. Refills 1, Maintenance, Insomnia, 05/12/22 11:54:00 EST, Route to Pharmacy Electronically, [facility] ([facility] ), 175, cm, 05/12/22 11:49:00 EST, H... Start Date: 05/12/22 Status: Ordered Vitamin D3 50,000 intl units oral capsule 1 capsule = 1,250 mcg, By Mouth, Every week, # 8 capsule, 0 Refills, Maintenance, 06/08/22 12:19:00EST, Capsule, [facility]/pharmacy #[id number], Partial fill upon patient request if the prescription is for a schedule II opioid drug., 176, cm, 06/08/22 12:04:00 E... Start Date: 06/08/22 Stop Date: 08/03/22 Status: Ordered Problem List Condition Confirmation Course Effective Dates Status Health Status Informant AICD (automatic cardioverter/defibrillato r) present Confirmed 06/21/05 Active BPH - [facility] Confirmed 03/14/21 Active Chronic kidney disease stage 3 Confirmed 05/17/11 Active CAD; s/p CABG 1997, [place] 2006 w/stent; heart transplant 04/30 Confirmed Active Diabetes mellitus with PVD; stents; [facility] Confirmed Active Diabetes mellitus with cataract Confirmed [...] back pain Confirmed 06/15/15 Active Microscopic hematuria; [facility] Confirmed Active Neck pain Confirmed 08/29/19 [...] Confirmed 06/21/05 Active Tremor - Neurology at [facility] Confirmed 02/07/18 Active Type 2 DM with renal manifestations; [facility] Confirmed 05/04/16 Active 1EF 20-25% prior to transplant Social History Social History Type Response Smoking Status Former smoker, quit more than 30 days ago entered on: 06/01/21 Sex Patient Care team information Care Team Personnel Name: Nenita Song Position: [facility] RN Supv Member Role: Primary Care Nurse Name: Najma Michael RN Position: [facility] RN Member Role: Primary Care Nurse Name: Mallory Masterson NP Position: Reference Physician Member Role: Primary Care Nurse Address: Address: [address] [place] [address]- [place] Name: Scarlet Rosenthal RN Position: [facility] RN Member Role: Primary Care Nurse Name: Dung Chen MD Position: [facility] Primary Care Physician Member Role: PCP Address: Address: [address] [address]- [place] Name: Heydi Oviedo RN Position: [facility] Hospital Concrete Engineer Member Role: Primary Care Nurse Name: Sandra Cat Position: [facility] Outreach Member Role: Lifetime Consulting Physician Name: Luis Peters MD Position: [facility] Renal MD Member Role: Lifetime Consulting Physician Address: Address: [address] [facility] [address] [facility] [place] [address]- [place] Name: Zulma Martinez MD Position: [facility] Cardiology MD Member Role: Lifetime Consulting Physician Address: Address: [address] [facility] [address] [place] [address]- [place] Name: Evelyn Jean-Baptiste RN Position: [facility] RN Member Role: Primary Care Nurse Name: Hilda Mcdonald RN Position: [facility] RN Member Role: Primary Care Nurse Care Team Related Persons Name: LUCIA BATEMAN Address: home [address] [place] [address]
--- OUTSIDE RECORDS SUMMARY | 2023-05-15 08:51 | XMS_ITS | Continuity of Care Document ---
Author Name Unknown Organization [facility] Address [address] [place] [address]- Care Team Providers Care Economic Geographer Name Role Phone Dung Chen MD Primary Care Physician Encounter [facility] [place] Date(s): 01/05/23 - 02/04/23 [facility] [address] [place], [place] [address] Allergies, Adverse Reactions, Alerts Substance Reaction Severity Status lisinopril Active Immunizations Given and Recorded Vaccine Date Status Refusal Reason tetanus/diphtheria/pertussis, acel(Tdap) 1 12/08/22 Given tetanus/diphtheria/pertussis, acel(Tdap) 03/27/12 Recorded pneumococcal 20-valent conjugate vaccine 2 12/08/22 Given [id number] 12y+ bivalent booster vax 04/15/22 Recorded influenza virus vaccine, inactivated 02/02/22 Quinn rded [...] 01/17/10 Give n influenza virus vaccine, inactivated 3 02/21/08 Gi randi influenza virus vaccine, inactivated 01/22/07 Quinn rded influenza virus vaccine, inactivated 03/07/06 Quinn rded SARS-CoV-2 mRNA ([id number]) vax 07/18/21 Recorded SARS-CoV-2 (COVID-19) mRNA BNT-162b2 [...] Vacc (oldterm) 5 07/14/04 Given 1Result Comment: [facility] [id number] 2Result Comment: [facility] [id number] 3Result Comment: Lot # [id number] Exp. #) SEP 23 4Admin Note: Pt states he received this seasons flu vaccine at [place]. 5Admin Note: Patient states he received pneumovax in 2004 at [place]. Medications amLODIPine 10 mg oral tablet 10 mg, 1, tablet, By Mouth, Daily, # 90 tablet, Refills 3, Tot. Refills 3, Maintenance, 11/03/22 11:30:00 EDT, Route to Pharmacy Electronically, [facility] ([facility] ), Partial fill upon patient request if the prescription is for... Start Date: 11/03/22 Status: Ordered aspirin 81 mg oral delayed release tablet 81 mg, 1, tablet, By Mouth, Daily, # 30 tablet, Refills 0, Tot. Refills 0, Maintenance, 06/08/21 11:45:00 EST, Route to Pharmacy Electronically, [facility]/pharmacy #[id number], Partial fill upon patient request if the [...] 3 Refills, Maintenance, 01/19/23 18:26:00 EDT, Nasal [place],[facility], Partial fill upon patient request if the prescription is for a schedule II opioid drug., 1 sprays Nares, Both Daily, 173, cm, 100... Start Date: 01/19/23 Status: Ordered Freestyle Nona 2 [place] Freestyle Nona 2 [place], See Instructions, # 1 each, Refills 0, Tot. Refills 0, Maintenance, Use to monitor blood glucose, scan sensor upon waking, before meals and at bedtime. E11, 10/25/22 9:50:00 EDT, Supply Start Date: 10/25/22 Status: Ordered Freestyle Nona 2 Sensors Freestyle Nona 2 Sensors, See Instructions, # 2 each, Refills 11, Tot. Refills 11, Maintenance, Use to monitor blood glucose, scan sensor upon waking, before meals and at bedtime. E11, 10/25/22 9:49:00 EDT, Supply, 173, cm, 10/24/22 17:27:00 EDT,... Start Date: 10/25/22 Status: Ordered Freestyle Nona Monitor Freestyle Nona Monitor, See Instructions, # 1 each, Refills 0, Tot. Refills 0, Maintenance, Use with Freestyle 14 day Sensor to monitor Blood Glucose. E1165, 06/21/21 13:57:00 EST, Supply, 175, cm,06/08/21 7:53:00 [...] Maintenance, 08/23/22 12:58:00 EDT, [facility] ([facility]), 176, cm... Start Date: 08/23/22 Status: Ordered insulin degludec (concentrated) 200 units/mL subcutaneous solution See Instructions, 30 units in the AM and 30 units in the PM 30 days supply, # 75 mL, 3 Refills, Maintenance, 10/15/22 10:03:00 EDT, [facility], Partial fill upon patient request if the prescription is for a schedule II opioid drug., 173... Start Date: 10/15/22 Status: Ordered magnesium oxide 400 mg oral tablet 1 tablet = 400 mg, By Mouth, 2 times a day, 0 Refills, Maintenance, 12/08/22 10:48:00 EDT, Partial fill upon patient request if the prescription is for a schedule II opioid drug. Start Date: 12/08/22 Status: Ordered mycophenolic acid 360 mg oral [...] Weight Start Date: 08/17/22 Status: Ordered Pen [place], 31 G x 8 mm BD Ultra Fine III See Instructions, # 300 each, Refills 6, Tot. Refills 6, Maintenance, use as directed for Type 2 Diabetes Mellitus for 5 injections per day E11.9, 12/09/21 9:52:00 EDT, Supply, 175.3, cm, 12/06/21 7:36:00 EDT, Height, 95.3, kg, 12/06/21 7:36:00 EDT... Start Date: 12/09/21 Stop Date: 08/31/23 Status: Ordered Pen [place], 32 G x 4 mm BD Ultra Fine III Maintenance, 09/25/21 10:18:00 EDT, Supply Start Date: 09/25/21 Status: Ordered Plavix 75 mg oral tablet [...] Route to Pharmacy Electronically, [facility] ([facility]), 173, cm, 10/12/22 19:31:00 EDT, Height, 106.... Start Date: 10/12/22 Status: Ordered Trulicity Pen 0.75 mg/0.5 mL subcutaneous solution 0.5 mL = 0.75 mg, Subcutaneous Injection, Every week, rotate injection sites, # 6 mL, 0 Refills, Maintenance, 12/08/22 11:17:00 EDT, Solution, [facility] ([facility]), Partial fillupon patient request if the prescription is for a s... Start Date: 12/08/22 Status: Ordered Trulicity Pen 1.5 mg/0.5 mL subcutaneous solution 0.5 mL = 1.5 mg, Subcutaneous Injection, Every week, rotate injection sites, # 6 mL, 3 Refills, Maintenance, 01/16/23 8:02:00 EDT, Solution, [facility], Partial fill upon patient request if the prescription is for a schedule II opioid drug.,... Start Date: 01/16/23 Status: Ordered valsartan 80 mg oral tablet 80 mg, 1, tablet, By Mouth, Daily, # 90 tablet, Refills 0, Tot. Refills 0, Maintenance, 01/08/23 10:37:00 EDT, Route to Pharmacy Electronically, [facility], Partial fill upon patient requestif the prescription is for a schedule II opioid channing... Start Date: 01/08/23 Status: Ordered Vitamin D3 50,000 intl units oral capsule 1 capsule = 1,250 mcg, By Mouth, Every week, # 8 capsule, 0 Refills, Maintenance, 06/08/22 12:19:00EST, Capsule, [facility]/pharmacy #[id number], Partial fill upon patient request if the prescription is for a schedule II opioid drug., 176, cm, 06/08/22 12:04:00 E... Start Date: 06/08/22 Stop Date: 08/03/22 Status: Ordered Problem List Condition Confirmation Course Effective Dates Status Health Status Informant Unsteady gait Confirmed Active Amputated toe of left foot Confirmed Active AICD (automatic cardioverter/defibrillato r) present Confirmed 06/21/05 Active BPH - [facility] Confirmed 03/14/21 Active Chronic kidney disease stage 3 Confirmed 05/17/11 Active CAD; s/p CABG 1997, [place] 2006 w/stent; heart transplant 04/30 Confirmed Active DVT, lower extremity Confirmed Active Diabetes mellitus with PVD; stents; [facility] [place] [facility] Confirmed Active Diabetes mellitus [...] 01/24/14 Active History of SCC in situ; [place] [facility] Confirmed 11/06/20 Active History of venous thrombosis - R IJ complete, partial on L; AC x3mo Confirmed 05/13/13 Active Hyperparathyroidism Confirmed 06/07/21 Active Hypertension Confirmed Active Immunosuppressed status Confirmed Active Insomnia Confirmed 07/17/19 Active Ischemic cardiomyopathy Confirmed Active Left foot drop Confirmed 08/25/14 Active Leukopenia Confirmed 07/10/21 Active Low back pain Confirmed 06/15/15 Active Microscopic hematuria; [facility] Confirmed Active Neck pain Confirmed 08/29/19 Active Neuropathy due to diabetes mellitus Confirmed 10/11/10 Active Nonproliferative diabetic retinopathy Confirmed Active H/o positive PPD, s/p 9mo INH Confirmed 03/07/06 Active Obstructive sleep apnea syndrome Confirmed 09/08/11 Active Osteopenia - minimal, on DXA 08/01 Confirmed 08/08/16 Active Peripheral neuropathy Confirmed Active Colon polyp Confirmed Active Presbyesophagus Confirmed 07/21/20 Active Pure hypercholesterolemia Confirmed 06/21/05 Active Severe obesity (BMI 35.0-39.9) with comorbidity Confirmed Active Tremor - Neurology at [facility] Confirmed 02/07/18 Active Type 2 DM with renal manifestations; [facility] Confirmed 05/04/16 Active 1EF 20-25% prior to transplant Social History Social History Type Response Smoking Status Former smoker, quit more than 30 days ago entered on: 10/24/22 Sex Patient Care team information Care Team Personnel Name: Nenita Song Position: [facility] RN Supv Member Role: Primary Care Nurse Name: Sherice Mariscal RN Position: S RN Member Role: Primary Care Nurse Name: Najma Michael RN Position: [facility] RN Member Role: Primary Care Nurse Name: Mallory Masterson NP Position: Reference Physician Member Role: Primary Care Nurse Address: Address: [address] [place] [address]- [place] Name: Scarlet Rosenthal RN Position: [facility] SN RN Member Role: Primary Care Nurse Name: Dung Chen MD Position: [facility] Physician - Primary Care Member Role: PCP Address: Address: [address] [address]- [place] Name: Heydi Oviedo RN Position: [facility] Risk Management Manager Member Role: Primary Care Nurse Name: Sandra Cat Position: [facility] Outreach Member Role: Lifetime Consulting Physician Name: Nicki Garcia RN Position: [facility] RN Member Role: Primary Care Nurse Name: Vane Davalos RN Position: [facility] RN Member Role: Primary Care Nurse Name: Belinda Stevenson RN Position: [facility] SN RN Member Role: Primary Care Nurse Name: Luis Peters MD Position: [facility] Renal MD Member Role: Lifetime Consulting Physician Address: Address: [address] [facility] [place] [address]- [place] Name: Zulma Martinez MD Position: [facility] Cardiology MD Member Role: Lifetime Consulting Physician Address: Address: [address] [address]- [place] Name: Evelyn Jean-Baptiste RN Position: [facility] RN Member Role: Primary Care Nurse Name: Hilda Mcdonald RN Position: [facility] RN Member Role: Primary Care Nurse Care Team Related Persons Name: LUCIA BATEMAN Address: home [address] [place] [address]
--- OUTSIDE RECORDS SUMMARY | 2023-05-15 08:51 | XMS_ITS | Continuity of Care Document ---
Author Name Unknown Organization [facility] Address [address] [place] [address]- Care Team Providers Care Rehabilitation Manager Name Role Phone Gustavo CALLOWAY, Dung Primary Care Physician Encounter [facility] [place] Date(s): 07/06/20 - 07/13/20 [facility] [address] [place] [id number] Attending Physician: Tavon VIDES, Alicia Whitley Admitting Physician: Tavon VIDES, Alicia Whitley Referring Physician: Dung Chen MD Allergies, Adverse Reactions, [...] he received this seasons flu vaccine at [place]. 3Admin Note: Patient states he received pneumovax in 2004 at [place]. Medications aspirin 81 mg oral tablet 1 [...] Refills, Maintenance, 06/09/19 9:51:00 EST, EC Capsule, [facility]/pharmacy #[id number], 175, cm, 12/05/18 15:23:00 EDT, Height, [...] sensor every 14 days. For T2 DM/T11., 06/08/20 10:59:00 EST, Compound, 176, cm, 04/01/20 11:26:00 ES... Start Date: 06/08/20 Status: Ordered Freestyle Precision luis antonio-test strips Freestyle Precision luis antonio-test strips, See Instructions, # 150 each, Refills 11, Tot. Refills 11, Maintenance, Used to test SM BG up to 5 times daily. For T2 DM/e11, 05/22/18 10:40:45 EST, Compound Start Date: 05/22/18 Status: Ordered gabapentin 300 mg oral capsule 300 mg, 1, capsule, By Mouth, 3 times a day, # 90 capsule, Refills 5, Tot. Refills 5, Maintenance, 05/19/20 10:59:00 EST, Route to Pharmacy Electronically, [facility]/pharmacy #[id number], Partial fill upon patient request if the prescription is for a schedule II... Start Date: 05/19/20 Status: Ordered Humalog Kwik Pen 100 units/mL [...] 01/28/20 14:36:00 EDT, Route to Pharmacy Electronically, [facility]/pharmacy #[id number], 176, cm, 01/06/20 19:56:00 EDT, Height, [...] 05/27/19 16:08:00 EST, Route to Pharmacy Electronically, [facility]/pharmacy #[id number], 175, cm, 12/05/18 15:23:00 EDT, Height, [...]
--- OUTSIDE RECORDS SUMMARY | 2023-05-15 08:51 | XMS_ITS | Continuity of Care Document ---
Author Name Unknown Organization [facility] Address [address] [place] [address]- Care Team Providers Care Local Hazmat Driver Name Role Phone Dung Chen MD Primary Care Physician Encounter [facility] Date(s): 02/08/23 - 03/10/23 [facility] [address] [place] [id number] Allergies, Adverse Reactions, Alerts [...] virus vaccine, inactivated 03/07/06 Quinn rded SARS-CoV-2(COVID-19)mRNA-LNP vac([id number]) 02/06/23 Recorded tetanus/diphtheria/pertussis, acel(Tdap) 2 12/08/22 Given tetanus/diphtheria/pertussis, acel(Tdap) 03/27/12 Recorded pneumococcal 20-valent conjugate vaccine 3 12/08/22 Given [id number] 12y+ bivalent booster vax 04/15/22 Recorded SARS-CoV-2 mRNA (rbmroiv-[id number]) vax 07/18/21 Recorded SARS-CoV-2 (COVID-19) mRNA BNT-162b2 [...] [id number] Exp. #) SEP 23 2Result Comment: [facility] [id number] 3Result Comment: [facility] [id number] 4Admin Note: Pt states he received this seasons flu vaccine at [place]. 5Admin Note: Patient states he received pneumovax in 2004 at [place]. Medications amLODIPine 10 mg oral tablet 10 [...] 11:45:00 EST, Route to Pharmacy Electronically, [facility]/pharmacy #[id number], Partial fill upon patient request if the [...] 3 Refills, Maintenance, 01/19/23 18:26:00 EDT, Nasal [place],[facility], Partial fill upon patient request [...] 400 <<... Start Date: 03/06/23 Status: Ordered mycophenolic acid 360 mg oral [...] 14:41:00 EST Start Date: 03/06/23 Status: Ordered Trulicity Pen 0.75 mg/0.5 mL subcutaneous solution 0.5 mL = 0.75 mg, Subcutaneous Injection, Every week, rotate injection sites, # 6 mL, 0 Refills, Maintenance, 12/08/22 11:17:00 EDT, Solution, [facility] ([facility]), Partial fillupon patient request if the prescription is for a s... Start Date: 12/08/22 Status: Ordered valsartan 160 mg oral tablet 160 mg, 1, tablet, By Mouth, Daily, # 90 tablet, Refills 0, Tot. Refills 0, Maintenance, 02/12/23 22:19:00 EDT, Route to Pharmacy Electronically, [facility]/pharmacy #[id number], Partial fill upon patient requestif the prescription is for a schedule II opioid channing... Start Date: 02/12/23 Status: Ordered Problem List Condition Confirmation Course Effective Dates Status Health Status Informant Unsteady gait Confirmed Active Amputated toe of left foot Confirmed Active Weakness generalized Confirmed Active AICD (automatic cardioverter/defibrillato r) present Confirmed 06/21/05 Active BPH - [facility] Confirmed 03/14/21 Active Chronic kidney disease stage 3 Confirmed 05/17/11 Active CAD; s/p CABG 1997, [place] 2006 w/stent; heart transplant 04/30 Confirmed Active Diabetes mellitus with PVD; stents; [facility] [place] [facility] Confirmed Active Diabetes mellitus with [...] back pain Confirmed 06/15/15 Active Microscopic hematuria; [facility] Confirmed Active Neck pain [...] B12 Confirmed Active Tremor - Neurology at [facility] Confirmed 02/07/18 Active Type 2 DM with renal manifestations; [facility] Confirmed 05/04/16 Active Vitamin D deficiency Confirmed Active 1EF 20-25% prior to transplant Social History Social History Type Response Smoking Status Former smoker, quit more than 30 days ago entered on: 10/24/22 Sex Patient Care team information Care Team Personnel Name: Nenita Song Position: [facility] RN Supv Member Role: Primary Care Nurse Name: Sherice Mariscal RN Position: [facility] RN Member Role: Primary Care Nurse Name: Najma Michael RN Position: [facility] RN Member Role: Primary Care Nurse Name: Aleja STORAGE BATTERY CHARGERMallory Position: Reference Physician Member Role: Primary Care Nurse Address: Address: [address] [place] [address]- [place] Name: Scarlet Rosenthal RN Position: [facility] SN RN Member Role: Primary Care Nurse Name: Dung Chen MD Position: [facility] Physician - Primary Care Member Role: PCP Address: Address: [address], [place] [address]- [place] Name: Heydi Oviedo RN Position: [facility] Oil Well Shooter Member Role: Primary Care Nurse Name: Mercy Veliz RN Position: [facility] RN Member Role: Primary Care Nurse Name: Sandra Cat Position: [facility] Outreach Member Role: Lifetime Consulting Physician Name: Nicki Garcia RN Position: [facility] RN Member Role: Primary Care Nurse Name: Vane Davalos RN Position: [facility] RN Member Role: Primary Care Nurse Name: Belinda Stevenson RN Position: [facility] SN RN Member Role: Primary Care Nurse Name: Luis Peters MD Position: [facility] Renal MD Member Role: Lifetime Consulting Physician Address: Address: [address] [facility] [place] [address]- [place] Name: Zulma Martinez MD Position: [facility] Cardiology MD Member Role: Lifetime Consulting Physician Address: Address: [address] [facility] [address] [place] [address]- [place] Name: Evelyn Jean-Baptiste RN Position: [facility] RN Member Role: Primary Care Nurse Name: Hilda Mcdonald RN Position: [facility] RN Member Role: Primary Care Nurse Care Team Related Persons Name: LUCIA BATEMAN Address: home [address] [place] [id number]
--- OUTSIDE RECORDS SUMMARY | 2023-05-15 08:51 | XMS_ITS | Continuity of Care Document ---
Author Name Unknown Organization [facility] Address [address] [place] [address]- Care Team Providers Care Operator Assistant I Cementing Name Role Phone Dung Chen MD Primary Care Physician [place] [facility] [place] 12[place]21 [facility] [address] [place] [phone]- [place] Allergies, Adverse Reactions, Alerts Substance Reaction Severity Status lisinopril Active Immunizations Given and Recorded Vaccine Date Status Refusal Reason SARS-CoV-2 mRNA (weyitib-adnj-taqfs) vax 07/18/21 Recorded SARS-CoV-2 (COVID-19) mRNA BNT-162b2 [...] he received this seasons flu vaccine at [place]. 3Admin Note: Patient states he received pneumovax in 2004 at [place]. Medications aspirin 81 mg oral delayed release tablet 81 mg, 1, tablet, By Mouth, Daily, # 30 tablet, Refills 0, Tot. Refills 0, Maintenance, 06/08/21 11:45:00 EST, Route to Pharmacy Electronically, [facility]/pharmacy #[id number], Partial fill upon patient request if the [...] opioid drug. Start Date: 09/25/21 Status: Ordered gabapentin 300 mg oral capsule 1, capsule, By Mouth, 3 times a day, # 270 capsule, Refills 0, Route to Pharmacy Electronically, [facility], 175.3, cm, 09/27/21 10:36:00 EDT, Height, 86.2, kg, 08/26/21 12:59:00 EDT, Dry Weight Start Date: 11/10/21 Status: Ordered HumaLOG Cartridge 100 units/mL injectable [...] 2 times a day, # 180 tablet, 2 Refills, Maintenance, 11/11/21 12:54:00 EDT, CR Tablet, 175.3, cm, 09/27/21 10:36:00 EDT, Height, 86.2, kg, 08/26/21 12:59:00 EDT, Dry Weight Start Date: 11/11/21 Stop Date: 08/08/22 Status: Ordered Pen [place], 31 G x 8 mm BD Ultra Fine III See Instructions, # 300 each, Refills 6, Tot. Refills 6, Maintenance, use as directed for Type 2 Diabetes Mellitus for 5 injections per day E11.9, 12/09/21 9:52:00 EDT, Supply, 175.3, cm, 12/06/21 7:36:00 EDT, Height, 95.3, kg, 12/06/21 7:36:00 EDT... Start Date: 12/09/21 Stop Date: 08/31/23 Status: Ordered Pen [place], 32 G x 4 mm BD Ultra [...] Refills 1, Tot. Refills 1, Maintenance, Insomnia, 09/27/21 11:24:00 EDT, Route to Pharmacy Electronically, [facility]/pharmacy #[id number], 175.3,cm, 09/27/21 10:36:00 EDT, Height, 86.2, kg, ... Start Date: 09/27/21 Stop Date: 03/26/22 Status: Ordered Tresiba 100 units/mL subcutaneous solution = 100 units, Subcutaneous Infusion, Daily, 0 Refills, Maintenance, 07/26/21 8:47:00 EDT, Partial fill upon patient request if the prescription is for a schedule II opioid drug. Start Date: 07/26/21 Status: Ordered Problem List Condition Effective Dates Status Health Status Inform ant AICD (automatic cardioverter/defibrillator) present(Confirmed) 06/21/05 Active BPH - [facility](Confirmed) 03/14/21 Active Chronic kidney disease stage 3(Confirmed) 05/17/11 Active CAD; s/p CABG 1997, [place] 2006 w/stent; heart transplant 04/30(Confirmed) Active Diabetes mellitus(Confirmed) Active Diabetes mellitus with PVD; stents; [facility](Confirmed) Active Diabetes mellitus with cataract(Confirmed) Active Dysautonomia(Confirmed) 10/19/18 Active Dry eyes(Confirmed) 11/18/16 Active Erectile dysfunction(Confirmed) 06/21/05 Active Erosive gastropathy - 08/05 E GD; normal EGD 12/06(Confirmed) 07/29/20 Active Esophageal dysmotility(Confirmed) 07/21/20 Active Gastroesophageal reflux disease(Confirmed) 06/21/05 Active DAY (generalized anxiety disorder)(Confirmed) Active Glaucoma suspect(Confirmed) 07/15/13 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 Active History of depression(Confirmed) 12/17/15 Active Heart transplant status(Confirmed) 1 Active Headache(Confirmed) 01/24/14 Active History of SCC in situ; [place] [facility](Confirmed) 11/06/20 Active History of venous thrombosis - R IJ complete, partial on L; AC x3mo(Confirmed) 05/13/13 Active Hyperparathyroidism(Confirmed) 06/07/21 Active Immunosuppressed status(Confirmed) Active Insomnia(Confirmed) 07/17/19 Active Ischemic cardiomyopathy(Confirmed) Active Left foot drop(Confirmed) 08/25/14 Active Leukopenia(Confirmed) 07/10/21 Active Low back pain(Confirmed) 06/15/15 Active Neck pain(Confirmed) 08/29/19 Active 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) 10/11/10 Active H/o positive PPD, 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 INH(Confirmed) 03/07/06 Active Obese class I(Confirmed) Active Obstructive sleep apnea syndrome(Confirmed) 09/08/11 Active Osteopenia - minimal, on DXA 08/01(Confirmed) 08/08/16 Active Peripheral neuropathy(Confirmed) Active Colon polyp(Confirmed) Active Presbyesophagus(Confirmed) 07/21/20 Active Pure hypercholesterolemia(Confirmed) 06/21/05 Active Tremor - Neurology at [facility](Confirmed) 02/07/18 Active Type 2 DM with renal manifes tations; [facility](Confirmed) 05/04/16 Active 1EF 20-25% prior to transplant Social History Social History Type Response Smoking Status Former smoker, quit more than 30 days ago entered on: 06/01/21 Sex Care Team Personnel Name: Dung Chen MD Address: [id number]
--- OUTSIDE RECORDS SUMMARY | 2023-05-15 08:51 | XMS_ITS | Continuity of Care Document ---
Author Name Unknown Organization [facility] ter Address [address] [place] [address]- Care Team Providers Care Rrts Name Role Phone Dung Chen MD Primary Care Physician Encounter [facility] Date(s): 04/15/21 - 05/15/[address] [address] Attending Physician: Admtr, Scott Admitting Physician: AdmtrScott Referring Physician: Admtr, Ar8 Allergies, Adverse Reactions, Alerts Substance Reaction Severity [...] he received this seasons flu vaccine at [place]. 3Admin Note: Patient states he received pneumovax in 2004 at [place]. Medications aspirin 81 mg oral tablet 1 tablet = 81 mg, By Mouth, Daily, # 30 tablet, 0 Refills, Maintenance, 04/07/17 12:54:17, Tablet Start Date: 04/07/17 Status: Ordered Ativan 1 mg oral tablet See Instructions, 1 tablet By Mouth 30 minutes before MRI. May repeat once at time of test., # 2 tablet, 0 Refills, Maintenance, 08/17/20 17:02:00 EDT, [facility]/pharmacy #[id number], Partial fill upon patient request if the prescription is for a schedule II opio... Start Date: 08/17/20 Status: Ordered Calcium And Vitamin D Combination [...] Maintenance, 06/09/19 9:51:00 EST, EC Capsule, [facility]/pharmacy #[id number], 175, cm, 12/05/18 15:23:00 EDT, [...] sensors, See Instructions, # 2 each, Refills 2, Tot. Refills 2, Maintenance,Used to test SM BG up to 5 times daily. Change sensor every 14 days. For T2 DM/T11., 02/26/21 7:59:00 EST, Compound, 176, cm, 08/17/20 16:06:00 EDT,... Start Date: 02/26/21 Status: Ordered Freestyle Precision luis antonio-test strips Freestyle Precision luis antonio-test strips, See Instructions, # 150 each, Refills 11, Tot. Refills 11, Maintenance, Used to test SM BG up to 5 times daily. For T2 DM/e11, 05/22/18 10:40:45 EST, Compound Start Date: 05/22/18 Status: Ordered gabapentin 300 mg oral capsule 1, capsule, By Mouth, 3 times a day, # 90 capsule, Refills 3, Tot. Refills 3, 04/13/21 9:50:00 EST,Route to Pharmacy Electronically, [facility]/pharmacy #[id number], 176, cm, 03/30/21 10:45:00 EST, Height, 94.72, kg, 10/09/19 14:08:00 EDT, Dry Weight Start Date: 04/13/21 Status: Ordered HumaLOG Cartridge 100 units/mL injectable solution See Instructions, Use 3 times daily before meals. E11.65.; for use with InPen. 90-day supply., # 90mL, 3 Refills, Maintenance, 04/15/21 19:46:00 EST, Solution, [facility], Humalog [facility]: [id number] (cartridges), 176, cm, 03/30/21 10:45:00 E... Start Date: 04/15/21 Status: Ordered In Pen- Humalog, Blue In Pen- Humalog, Blue, See Instructions, # 1 each, Refills 1, Tot. Refills 1, Maintenance, Use to administer Humalog 3 times daily before meals. E11.65., 04/15/21 19:48:00 EST, Humalog Blue: [id number], Supply, 176, cm, 03/30/21 10:45:00 EST, Height... Start Date: 04/15/21 Status: Ordered magnesium oxide 400 mg oral [...] EDT, Compound Start Date: 10/15/18 Status: Ordered Pen [place], 31 G x 5 mm BD Ultra Fine III See Instructions, # 120 each, Refills 6, Tot. Refills 6, Maintenance, injects 4 times a day E11.65,08/24/20 9:11:00 EDT, fax [phone], Compound, 176, cm, 08/17/20 16:06:00 EDT, Height, 94.72, kg, 10/09/19 14:08:00 EDT, Dry Weight Start Date: 08/24/20 Status: Ordered Plavix 75 mg oral tablet 75 mg, 1, tablet, By Mouth, Daily, # 90 tablet, Refills 3, Tot. Refills 3, Maintenance, 01/28/20 14:36:00 EDT, Route to Pharmacy Electronically, [facility]/pharmacy #[id number], 176, cm, 01/06/20 19:56:00 EDT, [...] 16:08:00 EST, Route to Pharmacy Electronically, [facility]/pharmacy #[id number], 175, cm, 12/05/18 15:23:00 EDT, Height, 84.5, kg, 05/22/18... Start Date: 05/27/19 Stop Date: 11/23/19 Status: Ordered Tresiba FlexTouch 200 units/mL subcutaneous solution See Instructions, Take 100 units once daily. E11.65. 90-day supply., # 54 mL, 5 Refills, Maintenance, 04/15/21 19:44:00 EST, Solution, [facility], Partial fill upon patient request if the prescription is for a schedule II opioid drug., 176,... Start Date: 04/15/21 Status: Ordered Problem List Condition Effective Dates [...]
--- OUTSIDE RECORDS SUMMARY | 2023-05-15 08:51 | XMS_ITS | Continuity of Care Document ---
Author Name Unknown Organization [facility] Address [address] [place] [address]- Care Team Providers Care Sterilization Specialist Name Role Phone Dung Chen MD Primary Care Physician Encounter [facility] Date(s): 07/11/19 - 07/21/19 [facility] [address] [place] [address]- [facility] Attending Physician: Scott Mcintosh Admitting Physician: AdmScott simmons Referring Physician: AdmtrScott Allergies, Adverse Reactions, Alerts Substance Reaction Severity [...] he received this seasons flu vaccine at [place]. 3Admin Note: Patient states he received pneumovax in 2004 at [place]. Medications aspirin 81 mg oral tablet 1 [...] Refills, Maintenance, 06/09/19 9:51:00 EST, EC Capsule, [facility]/pharmacy #[id number], 175, cm, 12/05/18 15:23:00 EDT, Height, [...] EC Tablet Start Date: 04/07/17 Status: Ordered ExpanTouch Verio Test Strips See Instructions, # 300 [...] 05/27/19 16:08:00 EST, Route to Pharmacy Electronically, [facility]/pharmacy #[id number], 175, cm, 12/05/18 15:23:00 EDT, Height, [...]
--- OUTSIDE RECORDS SUMMARY | 2023-05-15 08:51 | XMS_ITS | Continuity of Care Document ---
Author Name Unknown Organization [facility] ter Address [address] [place] [address]- Care Team Providers Care Lockstitch Pocket Setter Name Role Phone Dung Chen MD Primary Care Physician Encounter [facility] [place] Date(s): 04/08/21 - 07/10/[address] [address] Attending Physician: Cecy Benoit MD Admitting Physician: Cecy Benoit MD Referring Physician: Dung Chen MD Allergies, Adverse [...] he received this seasons flu vaccine at [place]. 3Admin Note: Patient states he received pneumovax in 2004 at [place]. Medications aspirin 81 mg oral delayed release tablet 81 mg, 1, tablet, By Mouth, Daily, # 30 tablet, Refills 0, Tot. Refills 0, Maintenance, 06/08/21 11:45:00 EST, Route to Pharmacy Electronically, [facility]/pharmacy #[id number], Partial fill upon patient request if the prescription is for a schedule II opioid drug... Start Date: 06/08/21 Stop Date: 07/08/21 Status: Ordered Carafate 1 gm oral tablet 2 Gm, 2, tablet, By Mouth, 4 times a day, # 240 tablet, Refills 0, Tot. Refills 0, Maintenance, 06/08/21 11:45:00 EST, Route to Pharmacy Electronically, [facility]/pharmacy #[id number], Partial fill upon patient request if the prescription is for a schedule II opi... Start Date: 06/08/21 Status: Ordered gabapentin 600 mg oral tablet TAKE 1 TABLET BY MOUTH 3 TIMES DAILY FOR 90 DAYS. Start Date: 06/01/21 Status: Ordered mycophenolic acid 360 mg oral delayed release tablet 2 tablet = 720 mg, By Mouth, 2 times a day Start Date: 06/22/21 Status: Ordered pantoprazole 40 mg oral delayed release tablet 1 tablet = 40 mg, By Mouth, 2 times a day, # 180 tablet, 0 Refills, Maintenance, 06/08/21 11:47:00 EST, [...] 3 capsule = 3 mg, By Mouth, 2 times a day, 3 in the AM & 3 in the Evening, Maintenance, 06/22/21 15:17:00 EST, ; Start Date: 06/22/21 Status: Ordered traZODone 100 mg oral tablet 200 mg, 2, tablet, By Mouth, Daily at bedtime, PRN, # 60 tablet, Refills 5, Tot. Refills 5, Maintenance, Insomnia, 05/27/19 16:08:00 EST, Route to Pharmacy Electronically, [facility]/pharmacy #[id number], 175, cm, 12/05/18 15:23:00 EDT, Height, [...]
--- OUTSIDE RECORDS SUMMARY | 2023-05-15 08:51 | XMS_ITS | Continuity of Care Document ---
Author Name Unknown Organization [facility] Address [address] [place] [phone]- Care Team Providers Care Boat Canvas Installer Name Role Phone Dung Chen MD Primary Care Physician Encounter [facility] Date(s): 06/11/20 - 07/11/20 [facility] [address] [place] [address] Allergies, Adverse Reactions, Alerts Substance Reaction Severity [...] he received this seasons flu vaccine at [place]. 3Admin Note: Patient states he received pneumovax in 2004 at [place]. Medications aspirin 81 mg oral tablet 1 [...] Refills, Maintenance, 06/09/19 9:51:00 EST, EC Capsule, [facility]/pharmacy #[id number], 175, cm, 12/05/18 15:23:00 EDT, [...] 05/19/20 10:59:00 EST, Route to Pharmacy Electronically, [facility]/pharmacy #[id number], Partial fill [...] EC Tablet Start Date: 04/07/17 Status: Ordered Metallkraft AS Verio Test Strips See Instructions, # 300 [...] 01/28/20 14:36:00 EDT, Route to Pharmacy Electronically, [facility]/pharmacy #[id number], 176, cm, 01/06/20 19:56:00 EDT, Height, [...] 05/27/19 16:08:00 EST, Route to Pharmacy Electronically, [facility]/pharmacy #[id number], 175, cm, 12/05/18 15:23:00 EDT, Height, [...]
--- OUTSIDE RECORDS SUMMARY | 2023-05-15 08:51 | XMS_ITS | Continuity of Care Document ---
Author Name Unknown Organization [facility] Address [address] [place] [address]- Care Team Providers Care Proof Inspector Name Role Phone Dung Chen MD Primary Care Physician [phone] Encounter [facility] [id number] Date(s): 03/15/21 - 04/14/21 [facility] [address] [place] [address]- Attending Physician: Scott Mcintosh Admitting Physician: AdmtrScott Referring Physician: Admtr, Ar8 [...] he received this seasons flu vaccine at [place]. 3Admin Note: Patient states he received pneumovax in 2004 at [place]. Medications aspirin 81 mg oral tablet 1 tablet = 81 mg, By Mouth, Daily, # 30 tablet, 0 Refills, Maintenance, 04/07/17 12:54:17, Tablet Start Date: 04/07/17 Status: Ordered Ativan 1 mg oral tablet See Instructions, 1 tablet By Mouth 30 minutes before MRI. May repeat once at time of test., # 2 tablet, 0 Refills, Maintenance, 08/17/20 17:02:00 EDT, [facility]/pharmacy #[id number], Partial fill upon patient request if the [...] Refills, Maintenance, 06/09/19 9:51:00 EST, EC Capsule, [facility]/pharmacy #[id number], 175, cm, 12/05/18 15:23:00 EDT, [...] 3, 04/13/21 9:50:00 EST,Route to Pharmacy Electronically, [facility]/pharmacy #[id number], 176, cm, 03/30/21 10:45:00 EST, Height, 94.72, kg, 10/09/19 14:08:00 EDT, Dry Weight Start Date: 04/13/21 Status: Ordered Lantus Solostar Pen 100 units/mL subcutaneous solution = 70 units, Subcutaneous Injection, Daily, = 70 units, Subcutaneous Injectin, Daily. E11.65. 90 daysupply rotate injection sites, # 90 mL, 3 Refills, Maintenance, 09/25/20 10:26:00 EDT, Solution, [facility], , 176, cm... Start Date: 09/25/20 Status: Ordered magnesium oxide 400 mg oral [...] Compound Start Date: 10/15/18 Status: Ordered Pen [place], 31 G x 5 mm BD Ultra Fine III See Instructions, # 120 each, Refills 6, Tot. Refills 6, Maintenance, injects 4 times a day E11.65,08/24/20 9:11:00 EDT, fax [phone], Compound, 176, cm, 08/17/20 16:06:00 EDT, Height, 94.72, kg, 10/09/19 14:08:00 EDT, Dry Weight Start Date: 08/24/20 Status: Ordered Plavix 75 mg oral tablet 75 mg, 1, tablet, By Mouth, Daily, # 90 tablet, Refills 3, Tot. Refills 3, Maintenance, 01/28/20 14:36:00 EDT, Route to Pharmacy Electronically, [facility]/pharmacy #[id number], 176, cm, 01/06/20 19:56:00 EDT, Height, [...] 05/27/19 16:08:00 EST, Route to Pharmacy Electronically, [facility]/pharmacy #[id number], 175, cm, 12/05/18 15:23:00 EDT, [...]
--- OUTSIDE RECORDS SUMMARY | 2023-05-15 08:51 | XMS_ITS | Continuity of Care Document ---
Author Name Unknown Organization [facility] Address [address] [place] [address]- Care Team Providers Care Customer Experience Consultant Name Role Phone Dung Chen MD Primary Care Physician Encounter [facility] Date(s): 04/12/22 - 05/12/22 [facility] [address] [place], [place] [address] Allergies, Adverse Reactions, Alerts Substance Reaction Severity Status lisinopril Active Immunizations Given and Recorded Vaccine Date Status Refusal Reason SARS-CoV-2 mRNA ([id number]) vax 07/18/21 Recorded SARS-CoV-2 (COVID-19) mRNA BNT-162b2 [...] he received this seasons flu vaccine at [place]. 3Admin Note: Patient states he received pneumovax in 2004 at [place]. Medications amLODIPine 5 mg oral tablet 5 mg, 1, tablet, By Mouth, Daily, # 90 tablet, Refills 1, Tot. Refills 1, Maintenance, 05/12/22 11:54:00 EST, Route to Pharmacy Electronically, [facility] ([facility] ), Partial fill upon patient request if the prescription is for a... Start Date: 05/12/22 Status: Ordered aspirin 81 mg oral delayed release tablet 81 mg, 1, tablet, By Mouth, Daily, # 30 tablet, Refills 0, Tot. Refills 0, Maintenance, 06/08/21 11:45:00 EST, Route to Pharmacy Electronically, [facility]/pharmacy #[id number], Partial fill upon patient request if the prescription is for a schedule II opioid drug... Start Date: 06/08/21 Stop Date: 07/08/21 Status: Ordered cephalexin monohydrate 500 mg oral capsule 1 capsule = 500 mg, By Mouth, 4 times a day, for 12 days, # 48 capsule, 0 Refills, Acute 05/15/22 10:08:00 EST, 05/03/22 10:08:00 EST, Capsule, [facility]/pharmacy #[id number], Partial fill upon patient request if the prescription is for a schedule II opioid drug.... Start Date: 05/03/22 Stop Date: 05/15/22 Status: Ordered duloxetine 20 mg oral enteric [...] 02/03/22 9:07:00 EDT, Route to Pharmacy Electronically, [facility] ([facility]), 175.3, cm, 01/03/22 13:47:00 EDT, Height, 95.3, kg, 12/06/21 7:36:00 ED... Start Date: 02/03/22 Status: Ordered HumaLOG Cartridge 100 units/mL injectable solution See Instructions, Insert cartridge into Inpen device, inject 16 units subq 3x a day with meals, Maxdaily dose 48 units, E11.65, # 30 mL, 6 Refills, Maintenance, 08/03/21 10:25:00 EDT, [facility], 175, cm, 07/26/21 8:27:00 EDT, Height, 75, k... Start Date: 08/03/21 Status: Ordered Humalog Kwik Pen 100 units/mL subcutaneous injection See Instructions, e11.65, use as back up to failed inpen device. following sliding scale, up to 16 units subcutaneously three times a day with meals. max daily dose 48 units, # 15 mL, 1 Refills, Acute 10/17/22 15:26:00 EDT, 04/19/22 15:24:00 EST, [facility]... Start Date: 04/19/22 Stop Date: 10/17/22 Status: Ordered mycophenolic acid 360 mg oral [...] Weight Start Date: 04/03/22 Status: Ordered Pen [place], 31 G x 8 mm BD Ultra Fine III See Instructions, # 300 each, Refills 6, Tot. Refills 6, Maintenance, use as directed for Type 2 Diabetes Mellitus for 5 injections per day E11.9, 12/09/21 9:52:00 EDT, Supply, 175.3, cm, 12/06/21 7:36:00 EDT, Height, 95.3, kg, 12/06/21 7:36:00 EDT... Start Date: 12/09/21 Stop Date: 08/31/23 Status: Ordered Pen [place], 32 G x 4 mm BD Ultra [...] 05/12/22 11:54:00 EST, Route to Pharmacy Electronically, [facility] ([facility] ), 175, cm, 05/12/22 11:49:00 EST, H... Start Date: 05/12/22 Status: Ordered Tresiba 100 units/mL subcutaneous solution = 100 units, Subcutaneous Infusion, Daily, 0 Refills, Maintenance, 07/26/21 8:47:00 EDT, Partial fill upon patient request if the prescription is for a schedule II opioid drug. Start Date: 07/26/21 Status: Ordered Problem List Condition Confirmation Course Effective Dates Status Health Status Informant AICD (automatic cardioverter/defibrillato r) present Confirmed 06/21/05 Active BPH - [facility] Confirmed 03/14/21 Active Chronic kidney disease stage 3 Confirmed 05/17/11 Active CAD; s/p CABG 1997, CT 2006 w/stent; heart transplant 04/30 Confirmed Active Diabetes mellitus with PVD; stents; [facility] Confirmed Active Diabetes mellitus with cataract Confirmed Active Dysautonomia Confirmed 10/19/18 Active Dry eyes Confirmed 11/18/16 Active Erectile dysfunction Confirmed 3/7/06 Active Erosive gastropathy - 08/05 EGD; normal [...] back pain Confirmed 06/15/15 Active Microscopic hematuria; [facility] Confirmed Active Neck pain [...] Confirmed 06/21/05 Active Tremor - Neurology at [facility] Confirmed 02/07/18 Active Type 2 DM with renal manifestations; [facility] Confirmed 05/04/16 Active 1EF 20-25% prior to transplant Social History Social History Type Response Smoking Status Former smoker, quit more than 30 days ago entered on: 06/01/21 Sex Patient Care team information Care Team Personnel Name: Nenita Song Position: [facility] RN Supv Member Role: Primary Care Nurse Name: Najma Michael RN Position: [facility] RN Member Role: Primary Care Nurse Name: Mallory Masterson NP Position: [facility] PCO Associate Professional Member Role: Primary Care Nurse Name: Scarlet Rosenthal RN Position: [facility] RN Member Role: Primary Care Nurse Name: Dung Chen MD Position: [facility] Primary Care Physician Member Role: PCP Address: Address: [facility] [place] [address]- [place] Name: Ivelisse WARREN, Heydi Ontiveros Position: [facility] Hospital Buyer Planner Member Role: Primary Care Nurse Name: Sandra Cat Position: [facility] Outreach Member Role: Lifetime Consulting Physician Name: Belinda Stevenson RN Position: [facility] RN Member Role: Primary Care Nurse Name: Luis Peters MD Position: [facility] Renal MD Member Role: Lifetime Consulting Physician Address: Address: [address] [facility] [place] [address]- [place] Name: Zulma Martinez MD Position: [facility] Cardiology MD Member Role: Lifetime Consulting Physician Address: Address: [address] [place] [address] [place] [address]- [place] Name: Hilda Mcdonald RN Position: [facility] RN Member Role: Primary Care Nurse Care Team Related Persons Name: BHAVANA LUCIA Address: [address] [place] [address]
--- OUTSIDE RECORDS SUMMARY | 2023-05-15 08:51 | XMS_ITS | Continuity of Care Document ---
Author Name Unknown Organization [facility] Address [address] [place] [id number]- Care Team Providers Care Car Body Inspector Name Role Phone Dung Chen MD Primary Care Physician Encounter [facility] [place] [place] ACCT R [id number] Date(s): 10/24/22 - 10/31/22 [facility] [address] [place], [place] [address] Attending Physician: Vitaliy Phelps MD Admitting Physician: Vitaliy Phelps MD Referring Physician: Dung Chen MD Allergies, Adverse Reactions, Alerts Substance Reaction Severity Status lisinopril Active Immunizations Given and Recorded Vaccine Date Status Refusal Reason SARS-CoV-2 mRNA (tgcwllh-twnd-dstih) vax 07/18/21 Recorded SARS-CoV-2 (COVID-19) mRNA BNT-162b2 [...] he received this seasons flu vaccine at [place]. 3Admin Note: Patient states he received pneumovax in 2004 at [place]. Medications amLODIPine 5 mg oral tablet 1 tablet, By Mouth, Daily, # 90 tablet, 3 Refills, Maintenance, 10/27/22 10:09:00 EDT, [facility] ([facility]), 173, cm, 10/25/22 10:42:00 EDT, Height, 106.3, kg, 10/11/22 8:40:00 EDT, Dry Weight Start Date: 10/27/22 Status: Ordered apixaban Starter Pack 5 mg oral tablet = 10 mg, By Mouth, 2 times a day, first dose on 10/15 at 2100, # 1 pack/packet, 0 Refills, Maintenance, 10/15/22 10:04:00 EDT, Tablet, [facility], Partial fill upon patient request if theprescription is for a schedule II opioid drug., 173... Start Date: 10/15/22 Status: Ordered aspirin 81 mg oral delayed release tablet 81 mg, 1, tablet, By Mouth, Daily, # 30 tablet, Refills 0, Tot. Refills 0, Maintenance, 06/08/21 11:45:00 EST, Route to Pharmacy Electronically, [facility]/pharmacy #[id number], Partial fill upon patient request if the [...] 0 Refills, Maintenance, 04/12/22 19:33:00 EST, Capsule, [facility]/pharmacy #[id number], Partial fill upon patient request [...] Date: 09/25/21 Status: Ordered Freestyle Nona 2 [place] Freestyle Nona 2 [place], See Instructions, # 1 each, Refills 0, [...] 02/03/22 9:07:00 EDT, Route to Pharmacy Electronically, [facility] ([facility]), 175.3, cm, 01/03/22 13:47:00 EDT, Height, 95.3, kg, 12/06/21 7:36:00 ED... Start Date: 02/03/22 Status: Ordered Humalog Cartridge 100 units/mL subcutaneous injection See Instructions, INSERT CARTRIDGE INTO INPEN DEVICE AND INJECT SUBCUTANEOUSLY 16 UNITS 3 TIMES DAILY WITH MEALS - MAX DAILY DOSE: 48 UNITS, # 45 mL, 3 Refills, Maintenance, 08/23/22 12:58:00 EDT, [facility] ([facility]), 176, cm... Start Date: 08/23/22 Status: Ordered insulin degludec (concentrated) 200 units/mL subcutaneous solution See Instructions, 20 units in the AM and 30 units in the PM 30 days supply, # 75 mL, 3 Refills, Maintenance, 10/15/22 10:03:00 EDT, [facility], Partial fill upon patient request if [...] Weight Start Date: 08/17/22 Status: Ordered Pen [place], 31 G x 8 mm BD Ultra Fine III See Instructions, # 300 each, Refills 6, Tot. Refills 6, Maintenance, use as directed for Type 2 Diabetes Mellitus for 5 injections per day E11.9, 12/09/21 9:52:00 EDT, Supply, 175.3, cm, 12/06/21 7:36:00 EDT, Height, 95.3, kg, 12/06/21 7:36:00 EDT... Start Date: 12/09/21 Stop Date: 08/31/23 Status: Ordered Pen [place], 32 G x 4 mm BD Ultra [...] Route to Pharmacy Electronically, [facility] ([facility]), 173, cm, 10/12/22 19:31:00 EDT, Height, 106.... Start Date: 10/12/22 Status: Ordered Vitamin D3 50,000 intl units oral capsule 1 capsule = 1,250 mcg, By Mouth, Every week, # 8 capsule, 0 Refills, Maintenance, 06/08/22 12:19:00EST, Capsule, [facility]/pharmacy #[id number], Partial fill upon patient request if the prescription is for a schedule II opioid drug., 176, cm, 06/08/22 12:04:00 E... Start Date: 06/08/22 Stop Date: 08/03/22 Status: Ordered Problem List Condition Confirmation Course Effective Dates Status Health Status Informant Unsteady gait Confirmed Active AICD (automatic cardioverter/defibrillato r) present Confirmed 06/21/05 Active BPH - [facility] Confirmed 03/14/21 Active BMI 33.0-33.9,adult Confirmed Active Chronic kidney disease stage 3 Confirmed 05/17/11 Active CAD; s/p CABG 1997, [place] 2006 w/stent; heart transplant 04/30 Confirmed Active DVT, lower extremity Confirmed Active Diabetes mellitus with PVD; stents; [facility] [place] [facility] Confirmed Active Diabetes mellitus with [...] back pain Confirmed 06/15/15 Active Microscopic hematuria; [facility] Confirmed Active Neck pain Confirmed [...] Confirmed 06/21/05 Active Tremor - Neurology at [facility] Confirmed 02/07/18 Active Type 2 DM with renal manifestations; [facility] Confirmed 05/04/16 Active 1EF 20-25% prior to transplant Vital Signs Most recent to oldest [Reference Range]: 1 Height 173 cm (10/24/22 1:11 PM) Weight 103.18 kg (10/24/22 1:11 PM) Oxygen Saturation [94-100 %] 96 % (10/24/22 1:11 PM) Pulse Rate [55-90 bpm] 66 bpm (10/24/22 1:11 PM) Body Mass Index [18.5-24.99 kg/m2] 34.47 kg/m2 *>HHI* (10/24/22 1:11 PM) Blood Pressure [90-138/55-84 mm Hg] 126/ 70mm Hg (10/24/22 1:11 PM) Mode of Delivery (Oxygen) Room air (10/24/22 1:11 PM) Blood pressure sites Arm, left (10/24/22 1:11 PM) Weight Obtained Via Patient/family state d (10/24/22 1:11 PM) Social History Social History Type Response Smoking Status Former smoker, quit more than 30 days ago entered on: 10/24/22 Sex Note * Rikki Marvin: PERFORM, SIGN, VERIFY Event Display: Patient Education/Instruction Authored Date: [id number] [facility] *[facility] [address] Clinical Summary Name REJI BATEMAN Age 72 Years 1950 PCP Dung Chen MD PCP Visit Date 10/24/2022 12:42:00 Additional Instructions: Scheduled Appointments?? Future Appointments ?*[facility]??ID ?[id number]??[place],??[place],??[address] ?Phone:??--?Fax:??-- ?Appt. Date:??10/24/2022?4:20 PM ?Scheduled Provider:??Vanessa Swanson MD ?Diabetic??[facility] ?Phone:??--?Fax:??-- ?Appt. Date:??10/25/2022?9:00 AM ?Scheduled Provider:??Herb RN, [place] ?*[facility] ?[address]??[place],??[place],??[address] ?Phone:??--?Fax:??-- ?Appt. Date:??11/03/2022?10:30 AM ?Scheduled Provider:??Dung Chen MD ?[facility] ?Phone:??--?Fax:??-- ?Appt. Date:??11/08/2022?7:30 AM ?Scheduled Provider:??Jarrell Zacarias MD ?*[facility] ?[address],??[place],??[address] ?Phone:??--?Fax:??-- ?Appt. Date:??12/08/2022?10:30 AM ?Scheduled Provider:??Dung Chen MD Follow-Up Instructions ?? Diagnosis Medications: Please continue your medications until treatment is completed or stopped by your provider. Discuss any questions related to medications with your provider. Medications to Continue with No Changes These medications were not printed or sent to your pharmacy Acetaminophen/Butalbital/Caffeine (Fioricet oral capsule) 1 capsule Oral every 6 hours as needed Headache. Refills: 0. Next Dose: Amlodipine (amLODIPine 10 mg oral tablet) 1 tab(s) Oral Daily for 30 Days. Refills: 0. Next Dose: apixaban (apixaban Starter Pack 5 mg oral tablet) 10 Milligram Oral twice a day. first dose on 7/1 at 2100. Refills: 0. Next Dose: Aspirin (aspirin 81 mg oral delayed release tablet) 1 tab(s) Oral Daily for 30 Days. Refills: 0. Next Dose: Cholecalciferol (Vitamin D3 50,000 intl units oral capsule) 1 capsule Oral every week for 8 week(s). Refills: 0. Next Dose: Doxycycline (doxycycline hyclate 100 mg oral tablet) 1 tab(s) Oral twice a day for 13 Days. Refills: 0. Next Dose: Duloxetine (duloxetine 20 mg oral enteric coated capsule) 1 capsule Oral twice a day. Next Dose: Durable Medical Equipment (Freestyle Nona Monitor) Use with Freestyle 14 day Sensor to monitor Blood Glucose. E11.65. Refills: 0. Next Dose: Durable Medical Equipment (Freestyle Nona Sensor) e11.65, use with freestyle nona 14 day reader for frequent glucose monitoring, change every 14 days, 28 day supply. Refills: 13. Next Dose: Durable Medical Equipment (Pen [place], 31 G x 8 mm BD Ultra Fine III) use as directed for Type 2 Diabetes Mellitus for 5 injections per day E11.9. Refills: 6. Next Dose: Durable Medical Equipment (Pen [place], 32 G x 4 mm BD Ultra Fine III) Next Dose: Fludrocortisone (fludrocortisone 0.1 mg oral tablet) Next Dose: Fluticasone Nasal (fluticasone 50 mcg/inh nasal spray) Next Dose: Gabapentin (gabapentin 300 mg oral capsule) 1 capsule Oral 3 times a day. Refills: 5. Next Dose: insulin degludec (insulin degludec (concentrated) 200 units/mL subcutaneous solution) 20 units in the AM and 30 units in the PM 30 days supply. Refills: 3. Next Dose: Insulin Lispro (Humalog Cartridge 100 units/mL subcutaneous injection) INSERT CARTRIDGE INTO INPEN DEVICE AND INJECT SUBCUTANEOUSLY 16 UNITS 3 TIMES DAILY WITH MEALS - MAX DAILY DOSE: 48 UNITS. Refills: 3. Next Dose: Miscellaneous Rx (Basic Metabolic Panel) Please send results to Dr. Dung Chen ICD: N18.30 please obtain within 1 week of 09/12/22. Refills: 0. Next Dose: Miscellaneous Rx (Rx: Physical Therapy) Rx: Physical Therapy Dx: Frequent falls, deconditioning. Refills: 0. Next Dose: Mycophenolate Sodium (mycophenolic acid 360 mg oral delayed release tablet) 2 tab(s) Oral twice a day. Next Dose: Pantoprazole (pantoprazole 40 mg oral delayed release tablet) 1 tab(s) Oral twice a day. Refills: 3. Next Dose: PredniSONE (predniSONE 5 mg oral tablet) 1 tab(s) Oral Daily. Next Dose: Rosuvastatin (rosuvastatin 20 mg oral tablet) 1 tab(s) Oral Daily. Next Dose: Tacrolimus (tacrolimus 1 mg oral capsule) 2.5 capsule Oral twice a day. 3 in the AM & 3 in the Evening. Next Dose: Trazodone (traZODone 100 mg oral tablet) 2 tab(s) Oral Daily at Bedtime as needed NEEDED FOR INSOMNIA. Refills: 3. Next Dose: Allergy Info:?? lisinopril Medications Given This Visit Future Orders ?No future orders Vital Signs Height 173 cm Weight 103.18 kg BMI 34.47 kg/m2 Blood Pressure 126 mm Hg/70 mm Hg Temperature Pulse Rate 66 bpm Respiratory Rate 02 Sat Mode of Delivery 96 %/Room air You can now view a summary of your hospital visit from the comfort of your home through a free online portal called [employer]. [employer] is a website that allows you to securely view your medical information including discharge summary, medications and follow-up visits. ??You can alsosend a secure electronic message to your doctor???s office to request appointments, renew medications or just ask a question. You can enroll at [email or web address] or register during your next office visit. Disclaimer:?? The information provided is of a general nature and is intended to be used in conjunction with the recommendations and advice of your health care practitioner. ??Every effort has been made to ensure that the information provided is accurate and complete at the time it is provided to you however, as your needs change, or, as new ??information becomes available, different or additional instructions may be required. If you have questions, please consult with your primary care provider or pharmacist, as appropriate. ??This information is not intended to serve as substitution for assessment and evaluation by a qualified health care provider. If you do not have a primary care provider, you may find a [facility] provider by calling [facility] [employer] Link at [phone]. For information about the plan of care including goals and instructions for your diagnosis, please see the patient education orders section of this document. Patient Education Materials?? The content of this educational material or handout may have been modified, supplemented, or adapted from its original content and format to support your individualized medical care. Patient Care team information Care Team Personnel Name: Siri Franklin Position: [facility] RN Member Role: Primary Care Nurse Name: Nenita Song Position: [facility] RN Supv Member Role: Primary Care Nurse Name: Sherice Mariscal RN Position: [facility] RN Member Role: Primary Care Nurse Name: Najma Mihcael RN Position: [facility] RN Member Role: Primary Care Nurse Name: Mallory Masterson NP Position: Reference Physician Member Role: Primary Care Nurse Address: Address: [address] [place] [id number]- [place] Name: Scarlet Rosenthal RN Position: [facility] SN RN Member Role: Primary Care Nurse Name: Khurram Hansen RN Position: [facility] RN Member Role: Primary Care Nurse Name: Dung Chen MD Position: [facility] Physician - Primary Care Member Role: PCP Address: Address: [address] [place] [phone]- [place] Name: Heydi Oviedo RN Position: [facility] [employer] Supervisor Member Role: Primary Care Nurse Name: Sandra Cat Position: [facility] Outreach Member Role: Lifetime Consulting Physician Name: Nicki Garcia RN Position: [facility] RN Member Role: Primary Care Nurse Name: Vane Davalos RN Position: [facility] RN Member Role: Primary Care Nurse Name: Luis Peters MD Position: [facility] Renal MD Member Role: Lifetime Consulting Physician Address: Address: [address] [place] [address] [address] [facility] [place] [address]- [place] Name: Zulma Martinez MD Position: [facility] Cardiology MD Member Role: Lifetime Consulting Physician Address: Address: [address] [place] [address]- [place] Name: Evelyn Jean-Baptiste RN Position: [facility] RN Member Role: Primary Care Nurse Name: Hilda Mcdonald RN Position: [facility] RN Member Role: Primary Care Nurse Care Team Related Persons Name: LUCIA BATEMAN Address: home [address] [place] [address]
--- OUTSIDE RECORDS SUMMARY | 2023-05-15 08:51 | XMS_ITS | Continuity of Care Document ---
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 Name Role Phone Dung Chen MD Primary Care Physician [phone] Encounter [facility] [place] [place] Date(s): 06/25/22 - 10/23/22 [facility] [address] [place] [address] Attending Physician: Toshia Barr MD Admitting Physician: Toshia Barr MD Referring Physician: Dung Chen MD Allergies, Adverse Reactions, Alerts Substance Reaction Severity Status lisinopril Active Immunizations Given and Recorded Vaccine Date Status Refusal Reason SARS-CoV-2 mRNA (ufjieuy-nkcj-fofyg) vax 07/18/21 Recorded SARS-CoV-2 (COVID-19) mRNA BNT-162b2 [...] 01/17/10 Give n influenza virus vaccine, inactivated 02/21/08 Gi randi influenza virus vaccine, inactivated [...] he received this seasons flu vaccine at [place]. 3Admin Note: Patient states he received pneumovax in 2004 at [place]. Medications amLODIPine 10 mg oral tablet 10 mg, 1, tablet, By Mouth, Daily, # 30 tablet, Refills 0, Tot. Refills 0, Maintenance, 10/15/22 10:03:00 EDT, Route to Pharmacy Electronically, [facility] 3, Partial fill upon patient request if the prescription is for a schedule II opioi... Start Date: 10/15/22 Stop Date: 11/14/22 Status: Ordered apixaban Starter Pack 5 mg oral tablet = 10 mg, By Mouth, 2 times a day, first dose on 10/15 at 2100, # 1 pack/packet, 0 Refills, Maintenance, 10/15/22 10:04:00 EDT, Tablet, [facility] 3, Partial fill upon patient request if theprescription is for a schedule II opioid drug., 173... Start Date: 10/15/22 Status: Ordered aspirin 81 mg oral delayed release tablet 81 mg, 1, tablet, By Mouth, Daily, # 30 tablet, Refills 0, Tot. Refills 0, Maintenance, 06/08/21 11:45:00 EST, [id number] Partial fill upon patient request if the [...] EDT, Supply Start Date: 09/12/22 Status: Ordered doxycycline hyclate 100 mg oral tablet 1 tablet = 100 mg, By Mouth, 2 times a day, for 13 days, # 26 tablet, 0 Refills, Acute 10/28/22 10:05:00 EDT, 10/15/22 10:05:00 EDT, Tablet, [facility], Partial fill upon patient request if the prescription is for a schedule II opioid drErik.. Start Date: 10/15/22 Stop Date: 10/28/22 Status: Ordered duloxetine 20 mg oral enteric [...] 0 Refills, Maintenance, 04/12/22 19:33:00 EST, Capsule, [facility]/pharmacy #[id number], Partial fill upon patient request [...] 02/03/22 9:07:00 EDT, Route to Pharmacy Electronically, [facility]), 175.3, cm, 01/03/22 13:47:00 EDT, Height, 95.3, kg, 12/06/21 7:36:00 ED... Start Date: 02/03/22 Status: Ordered Humalog Cartridge 100 units/mL subcutaneous injection See Instructions, INSERT CARTRIDGE INTO INPEN DEVICE AND INJECT SUBCUTANEOUSLY 16 UNITS 3 TIMES DAILY WITH MEALS - MAX DAILY DOSE: 48 UNITS, # 45 mL, 3 Refills, Maintenance, 08/23/22 12:58:00 EDT, [facility] ([facility]), 176, cm... Start Date: 08/23/22 Status: Ordered insulin degludec (concentrated) 200 units/mL subcutaneous solution See Instructions, 20 units in the AM and 30 units in the PM 30 days supply, # 75 mL, 3 Refills, Maintenance, 10/15/22 10:03:00 EDT, [facility], Partial fill upon patient [...] Weight Start Date: 08/17/22 Status: Ordered Pen [place], 31 G x 8 mm BD Ultra Fine III See Instructions, # 300 each, Refills 6, Tot. Refills 6, Maintenance, use as directed for Type 2 Diabetes Mellitus for 5 injections per day E11.9, 12/09/21 9:52:00 EDT, Supply, 175.3, cm, 12/06/21 7:36:00 EDT, Height, 95.3, kg, 12/06/21 7:36:00 EDT... Start Date: 12/09/21 Stop Date: 08/31/23 Status: Ordered Pen [place], 32 G x 4 mm BD Ultra [...] tablet, Refills 3, Maintenance, NEEDED FOR INSOMNIA, 06/28/23 22:48:00 EDT, Route to Pharmacy Electronically, [facility]), 173, cm, 10/12/22 19:31:00 EDT, Height, 106.... Start Date: 10/12/22 Status: Ordered Vitamin D3 50,000 intl units oral capsule 1 capsule = 1,250 mcg, By Mouth, Every week, # 8 capsule, 0 Refills, Maintenance, 06/08/22 12:19:00EST, Capsule, [facility]/pharmacy #[id number], Partial fill upon patient request if the prescription is for a schedule II opioid drug., 176, cm, 06/08/22 12:04:00 E... Start Date: 06/08/22 Stop Date: 08/03/22 Status: Ordered Problem List Condition Confirmation Course Effective Dates Status Health Status Informant Unsteady gait Confirmed Active AICD (automatic cardioverter/defibrillato r) present Confirmed 06/21/05 Active BPH - [facility] [place] [facility] Confirmed 03/14/21 Active BMI 33.0-33.9,adult Confirmed Active Chronic kidney disease stage 3 Confirmed 05/17/11 Active CAD; s/p CABG 1997, [place] 2006 w/stent; heart transplant 04/30 Confirmed Active DVT, lower extremity Confirmed Active Diabetes mellitus with PVD; stents; [facility] [place] [facility] Confirmed Active Diabetes mellitus [...] back pain Confirmed 06/15/15 Active Microscopic hematuria; [facility] Confirmed Active Neck pain Confirmed 08/29/19 [...] comorbidity Confirmed Active Tremor - Neurology at [facility] Confirmed 02/07/18 Active Type 2 DM with renal manifestations; [facility] Confirmed 05/04/16 Active 1EF 20-25% prior to transplant Social History Social History Type Response Smoking Status Former smoker; Tob[employer] user in household: No; Other: Quit 1997; entered on: 03/08/17 Sex Patient Care team information Care Team Personnel Name: Siri Franklin Position: [facility] RN Member Role: Primary Care Nurse Name: Nenita Song Position: [facility] RN Supv Member Role: Primary Care Nurse Name: Sherice Mariscal RN Position: [facility] RN Member Role: Primary Care Nurse Name: Najma Michael RN Position: [facility] RN Member Role: Primary Care Nurse Name: Mallory Masterson NP Position: Reference Physician Member Role: Primary Care Nurse Address: Address: [address] [place] [address]- Name: Scarlet Rosenthal RN Position: [facility] SN RN Member Role: Primary Care Nurse Name: Khurram Hansen RN Position: [facility] RN Member Role: Primary Care Nurse Name: Dung Chen MD Position: [facility] Physician - Primary Care Member Role: PCP Address: Address: [address] [place] [address]- Name: Heydi Oviedo RN Position: [facility] Hospital Cylinder Machine Operator Member Role: Primary Care Nurse Name: Sandra Cat Position: [facility] Outreach Member Role: Lifetime Consulting Physician Name: Nicki Garcia RN Position: [facility] RN Member Role: Primary Care Nurse Name: Vane Davalos RN Position: S RN Member Role: Primary Care Nurse Name: Luis Peters MD Position: [facility] Renal MD Member Role: Lifetime Consulting Physician Address: Address: [address] [facility] [place] [address]- Name: Zulma Martinez MD Position: [facility] Cardiology MD Member Role: Lifetime Consulting Physician Address: Address: [address] [place] [address] [place] [address]- Name: Evelyn Jean-Baptiste RN Position: S RN Member Role: Primary Care Nurse Name: Hilda Mcdonald RN Position: S RN Member Role: Primary Care Nurse Care Team Related Persons Name: LUCIA BATEMAN Address: home [address] [place] [address]
--- OUTSIDE RECORDS SUMMARY | 2023-05-15 08:51 | XMS_ITS | Continuity of Care Document ---
Author Name Unknown Organization [facility] Address [address] [place] [address]- Care Team Providers Care Director Telecommunications Name Role Phone Dung Chen MD Primary Care Physician Encounter [facility] [place] Date(s): 12/26/19 - 01/25/20 [facility] [address] [place] [phone]- [facility] Attending Physician: Admtr, Ar8 Admitting Physician: Admtr, Ar8 Referring Physician: Admtr, Ar8 Allergies, Adverse Reactions, [...] he received this seasons flu vaccine at [place]. 3Admin Note: Patient states he received pneumovax in 2004 at [place]. Medications aspirin 81 mg oral tablet 1 [...] Refills, Maintenance, 06/09/19 9:51:00 EST, EC Capsule, [facility]/pharmacy #[id number], 175, cm, 12/05/18 [...] mg, 1, tablet, By Mouth, Daily, # 44 tablet, Refills 0, Tot. Refills 0, Maintenance, 01/07/20 9:00:00 EDT, Route to Pharmacy Electronically, [facility]/pharmacy #[id number], 176, cm, 01/06/20 10:35:00 EDT, Height, 94.72, kg, 10/09/19 14:08:00 EDT, Dry Weight Start Date: 01/07/20 Stop Date: 02/20/20 Status: Ordered predniSONE 5 mg oral tablet [...] 05/27/19 16:08:00 EST, Route to Pharmacy Electronically, [facility]/pharmacy #[id number], 175, cm, 12/05/18 [...]
--- OUTSIDE RECORDS SUMMARY | 2023-05-15 08:51 | XMS_ITS | Continuity of Care Document ---
Author Name Unknown Organization [facility] Address [address] [place] [id number]- Care Team Providers Care Scuba Dive Training Instructor Name Role Phone Dung Chen MD Primary Care Physician [phone] [place] [facility] [id number] Date(s): 11/30/22 - 12/07/22 [facility] [address] [place] [id number] Attending Physician: Vitaliy Phelps MD Admitting Physician: Vitaliy Phelps MD Referring Physician: Dung Chen MD Allergies, Adverse Reactions, Alerts Substance Reaction Severity Status lisinopril Active Immunizations Given and Recorded Vaccine Date Status Refusal Reason [id number] 12y+ bivalent booster vax 04/15/22 Recorded influenza [...] vaccine, inactivated 03/07/06 Quinn rded SARS-CoV-2 mRNA ([id number]-[id number]) vax 07/18/21 Recorded SARS-CoV-2 (COVID-19) mRNA BNT-162b2 [...] he received this seasons flu vaccine at [place]. 3Admin Note: Patient states he received pneumovax in 2004 at [place]. Medications amLODIPine 10 mg oral tablet 10 mg, 1, tablet, By Mouth, Daily, # 90 tablet, Refills 3, Tot. Refills 3, Maintenance, 11/03/22 11:30:00 EDT, Route to Pharmacy Electronically, [facility] ([facility] ), Partial fill upon patient request if the prescription is for... Start Date: 11/03/22 Status: Ordered apixaban Starter Pack 5 mg oral tablet = 10 mg, By Mouth, 2 times a day, first dose on 10/15 at 2100, # 1 pack/packet, 0 Refills, Maintenance, 10/15/22 10:04:00 EDT, Tablet, [facility], Partial fill upon patient request if theprescription is for a schedule II opioid drug., 173... Start Date: 10/15/22 Status: Ordered aspirin 81 mg oral delayed release tablet 81 mg, 1, tablet, By Mouth, Daily, # 30 tablet, Refills 0, Tot. Refills 0, Maintenance, 06/08/21 11:45:00 EST, Route to Pharmacy Electronically, [id number], Partial fill upon patient request if the prescription is for a schedule II opioid drug... Start Date: 06/08/21 Stop Date: 07/08/21 Status: Ordered Basic Metabolic Panel Basic Metabolic Panel, See Instructions, # 1 each, Refills 0, Tot. Refills 0, Maintenance, Please send results to Dr. Dnug Chen ICD: N18.30 please obtain within 1 [...] 0 Refills, Maintenance, 04/12/22 19:33:00 EST, Capsule, [facility]/pharmacy #[id number], Partial fill upon patient request if [...] Date: 09/25/21 Status: Ordered Freestyle Nona 2 [place] Freestyle Nona 2 [place], See Instructions, # 1 each, Refills 0, [...] Maintenance, 08/23/22 12:58:00 EDT, [facility] ([facility]), 176, cm... Start Date: 08/23/22 Status: Ordered insulin degludec (concentrated) 200 units/mL subcutaneous solution See Instructions, 20 units in the AM and 30 units in the PM 30 days supply, # 75 mL, 3 Refills, Maintenance, 10/15/22 10:03:00 EDT, [facility], Partial fill upon patient request if [...] Weight Start Date: 08/17/22 Status: Ordered Pen [place], 31 G x 8 mm BD Ultra Fine III See Instructions, # 300 each, Refills 6, Tot. Refills 6, Maintenance, use as directed for Type 2 Diabetes Mellitus for 5 injections per day E11.9, 12/09/21 9:52:00 EDT, Supply, 175.3, cm, 12/06/21 7:36:00 EDT, Height, 95.3, kg, 12/06/21 7:36:00 EDT... Start Date: 12/09/21 Stop Date: 08/31/23 Status: Ordered Pen [place], 32 G x 4 mm BD Ultra [...] Route to Pharmacy Electronically, [facility] ([facility]), 173, cm, 10/12/22 19:31:00 EDT, Height, 106.... Start Date: 10/12/22 Status: Ordered Vitamin D3 50,000 intl units oral capsule 1 capsule = 1,250 mcg, By Mouth, Every week, # 8 capsule, 0 Refills, Maintenance, 06/08/22 12:19:00EST, Capsule, [facility]/pharmacy #[id number], Partial fill upon patient request if the prescription is for a schedule II opioid drug., 176, cm, 06/08/22 12:04:00 E... Start Date: 06/08/22 Stop Date: 08/03/22 Status: Ordered Problem List Condition Confirmation Course Effective Dates Status Health Status Informant Unsteady gait Confirmed Active Amputated toe of left foot Confirmed Active AICD (automatic cardioverter/defibrillato r) present Confirmed 06/21/05 Active BPH - [facility] Confirmed 03/14/21 Active Chronic kidney disease stage 3 Confirmed 05/17/11 Active CAD; s/p CABG 1997, [place] 2006 w/stent; heart transplant 04/30 Confirmed Active DVT, lower extremity Confirmed Active Diabetes mellitus with PVD; stents; [facility] [place] [facility] Confirmed Active Diabetes mellitus with [...] back pain Confirmed 06/15/15 Active Microscopic hematuria; [facility] Confirmed Active Neck pain [...] Confirmed 06/21/05 Active Tremor - Neurology at [facility] Confirmed 02/07/18 Active Type 2 DM with renal manifestations; [facility] Confirmed 05/04/16 Active 1EF 20-25% prior to transplant Vital Signs Most recent to oldest [Reference Range]: 1 Height 173 cm (11/30/22 7:59 AM) Weight 104.5 kg (11/30/22 7:59 AM) Oxygen Saturation [94-100 %] 99 % (11/30/22 7:59 AM) Pulse Rate [55-90 bpm] 94 bpm *H* (11/30/22 7:59 AM) Body Mass Index [18.5-24.99 kg/m2] 34.92 kg/m2 *>HHI* (11/30/22 7:59 AM) Blood Pressure [90-138/55-84 mm Hg] 126/ 70mm Hg (11/30/22 7:59 AM) Mode of Delivery (Oxygen) Room air (11/30/22 7:59 AM) Blood pressure sites Arm, right (11/30/22 7:59 AM) Weight Obtained Via Patient/family state d (11/30/22 7:59 AM) Social History Social History Type Response Smoking Status Former smoker, quit more than 30 days ago entered on: 10/24/22 Sex Note * Jarrell Singer: PERFORM, SIGN, VERIFY Event Display: Patient Education/Instruction Authored Date: [id number] [facility] *[facility] [address] Clinical Summary Name REJI BATEMAN Age 72 Years 1950 PCP Dung Chen MD [id number] Visit Date 11/30/2022 07:57:00 Additional Instructions: Scheduled Appointments?? Future Appointments ?*No??[facility]ult??Ped ?[address]??[place],??[place],??[address] ?Phone:??--?Fax:??-- ?Appt. Date:??12/08/2022?10:30 AM ?Scheduled Provider:??Dung Chen MD ?Diabetic??[facility] ?Phone:??--?Fax:??-- ?Appt. Date:??12/22/2022?2:00 PM ?Scheduled Provider:??Herb RN, [place] ?*[facility]??Lab??[address] ?Phone:??--?Fax:??-- ?Appt. Date:??01/09/2023?10:00 AM ?Scheduled Provider:??PVR 2 ?*BVS??Lab??[address] ?Phone:??--?Fax:??-- ?Appt. Date:??01/09/2023?10:30 AM ?Scheduled Provider:??Ultrasound Room 3 [facility] ?*BVS[address]??[place],??[place],??[address] ?Phone:??--?Fax:??-- ?Appt. Date:??01/12/2023?3:00 PM ?Scheduled Provider:??Agapito ER PHYSICIAN , Pooja B ?*[facility] ?[address]??[place],??[place],??[address] ?Phone:??--?Fax:??-- ?Appt. Date:??01/16/2023?7:45 AM ?Scheduled Provider:??Carlos Alberto Stanford MD Follow-Up Instructions ?? With: Address: When: Vitaliy Phelps MD Within 4 to 5 weeks Comments: F/U 4-6 weeks with SYDNEE and left leg arterial duplex Diagnosis Medications: Please continue your medications until [...] 10 mg oral tablet) 1 tab(s) Oral Daily. Refills: 3. Next Dose: apixaban (apixaban Starter Pack 5 mg oral tablet) 10 Milligram Oral twice a day. first dose on 10/15 at 2100. Refills: 0. Next Dose: Aspirin (aspirin 81 mg oral delayed release tablet) 1 tab(s) Oral Daily for 30 Days. Refills: 0. Next Dose: Cholecalciferol (Vitamin D3 50,000 intl units oral capsule) 1 capsule Oral every week for 8 week(s). Refills: 0. Next Dose: Duloxetine (duloxetine 20 mg oral enteric coated capsule) 1 capsule Oral twice a day. Next Dose: Durable Medical Equipment (Freestyle Nona 2 [place]) Use to monitor blood glucose, scan sensor uponwaking, before meals and at bedtime. E11.65. Refills: 0. Next Dose: Durable Medical Equipment (Freestyle Nona 2 Sensors) Use to monitor blood glucose, scan sensor upon waking, before meals and at bedtime. E11.65. Refills: 11. Next Dose: Durable Medical Equipment (Freestyle Nona Monitor) Use with Freestyle 14 day Sensor to monitor Blood Glucose. E11.65. Refills: 0. Next Dose: Durable Medical Equipment (Freestyle Nona Sensor) e11.65, use with freestyle nona 14 day reader for frequent glucose monitoring, change every 14 days, 28 day supply. Refills: 13. Next Dose: Durable Medical Equipment (Pen [place], 31 G x 8 mm BD Ultra Fine III) use as directed for Type 2 Diabetes Mellitus for 5 injections per day E11.9. Refills: 6. Next Dose: Durable Medical Equipment ([place], 32 G x 4 mm BD Ultra Fine III) Next Dose: Fludrocortisone (fludrocortisone 0.1 mg oral tablet) Next Dose: Fluticasone Nasal (fluticasone 50 mcg/inh nasal spray) Next Dose: Gabapentin (gabapentin 600 mg oral tablet) 1 tab(s) Oral 3 times a day. Next Dose: insulin degludec (insulin degludec (concentrated) [...] lisinopril Medications Given This Visit Future Orders ?VL Arterial Duplex Left Scan? Order Date:11/30/22?- Complete by?11/30/22 ?VL Ankle Brachial Indices? Order Date:11/30/22?- Complete by?11/30/22 Vital Signs Height Weight BMI Blood Pressure / Temperature Pulse Rate Respiratory Rate 02 Sat Mode of Delivery / You can now view a summary of your hospital visit from the comfort of your home through a free online portal called [employer]. [employer] is a website that allows you to securely view your medical information including discharge summary, medications and follow-up visits. ??You can alsosend a secure electronic message to your doctor???s office to request appointments, renew medications or just ask a question. You can enroll at [email or web address] or register during your next office [...] primary care provider, you may find a [facility] provider by calling [facility] at [phone]. For information about the plan of care [...] Care Team Personnel Name: Nenita Song Position: [facility] RN Supv Member Role: Primary Care Nurse Name: Sherice Mariscal RN Position: [facility] RN Member Role: Primary Care Nurse Name: Najma Michael RN Position: [facility] RN Member Role: Primary Care Nurse Name: Mallory Masterson NP Position: Reference Physician Member Role: Primary Care Nurse Address: Address: [address] [place] [id number]- Name: Scralet Rosenthal RN Position: [facility] RN Member Role: Primary Care Nurse Name: Khurram Hansen RN Position: [facility] RN Member Role: Primary Care Nurse Name: Dung Chen MD Position: [facility] Physician - Primary Care Member Role: PCP Address: Address: [address] [facility] [place] [place] [address]- [place] Name: Heydi Oviedo RN Position: [facility] Hospital Supervisor [place] Member Role: Primary Care Nurse Name: Sandra Cat Position: [facility] Outreach Member Role: Lifetime Consulting Physician Name: Nicki Garcia RN Position: [facility] RN Member Role: Primary Care Nurse Name: Vane Davalos RN Position: [facility] RN Member Role: Primary Care Nurse Name: Belinda Stevenson RN Position: [facility] SN RN Member Role: Primary Care Nurse Name: Luis Peters MD Position: [facility] Renal MD Member Role: Lifetime Consulting Physician Address: Address: [address] [facility] [place] [address]- [place] Name: Zulma Martinez MD Position: [facility] Cardiology MD Member Role: Lifetime Consulting Physician Address: Address: [address] [place] [address] [place] [id number]- [place] Name: Evelyn Jean-Baptiste RN Position: [facility] RN Member Role: Primary Care Nurse Name: Hilda Mcdonald RN Position: [facility] RN Member Role: Primary Care Nurse Care Team Related Persons Name: LUCIA BATEMAN Address: home [address] [place] [address]
--- OUTSIDE RECORDS SUMMARY | 2023-05-15 08:51 | XMS_ITS | Continuity of Care Document ---
Author Name Unknown Organization [facility] Address [address] [place] [address]- Care Team Providers Care Squeegeer And Former Name Role Phone Dung Chen MD Primary Care Physician [place] [facility] [place](s): 04/24/22 - 05/24/22 [facility] [address] [place], [place] [address] Allergies, Adverse Reactions, Alerts Substance Reaction Severity Status lisinopril Active Immunizations Given and Recorded Vaccine Date Status Refusal Reason SARS-CoV-2 mRNA ([id number]) vax 07/18/21 Recorded SARS-CoV-2 (COVID-19) mRNA BNT-162b2 [...] he received this seasons flu vaccine at [place]. 3Admin Note: Patient states he received pneumovax in 2004 at [place]. Medications amLODIPine 5 mg oral tablet 5 mg, 1, tablet, By Mouth, Daily, # 90 tablet, Refills 1, Tot. Refills 1, Maintenance, 05/12/22 11:54:00 EST, Route to Pharmacy Electronically, [facility] ), Partial fill upon patient request if the prescription is for a... Start Date: 05/12/22 Status: Ordered aspirin 81 mg oral delayed release tablet 81 mg, 1, tablet, By Mouth, Daily, # 30 tablet, Refills 0, Tot. Refills 0, Maintenance, 06/08/21 11:45:00 EST, Route to Pharmacy Electronically, [facility]/pharmacy #[id number], Partial fill upon patient [...] 0 Refills, Maintenance, 04/12/22 19:33:00 EST, Capsule, [facility]/pharmacy #[id number], Partial fill upon patient [...] 02/03/22 9:07:00 EDT, Route to Pharmacy Electronically, [facility] ([facility]), 175.3, cm, 01/03/22 13:47:00 EDT, [...] Maintenance, 05/24/22 12:19:00 EST, [facility] ([facility] ), [...] Weight Start Date: 04/03/22 Status: Ordered Pen [place], 31 G x 8 mm BD Ultra Fine III See Instructions, # 300 each, Refills 6, Tot. Refills 6, Maintenance, use as directed for Type 2 Diabetes Mellitus for 5 injections per day E11.9, 12/09/21 9:52:00 EDT, Supply, 175.3, cm, 12/06/21 7:36:00 EDT, Height, 95.3, kg, 12/06/21 7:36:00 EDT... Start Date: 12/09/21 Stop Date: 08/31/23 Status: Ordered Pen [place], 32 G x 4 mm BD Ultra [...] 05/12/22 11:54:00 EST, Route to Pharmacy Electronically, [facility] ([facility] ), 175, cm, 05/12/22 11:49:00 EST, H... Start Date: 05/12/22 Status: Ordered Problem List Condition Confirmation Course Effective Dates Status Health Status Informant AICD (automatic cardioverter/defibrillato r) present Confirmed 06/21/05 Active BPH - [facility] Confirmed 03/14/21 Active Chronic kidney disease stage 3 Confirmed 05/17/11 Active CAD; s/p CABG 1997, [place] 2006 w/stent; heart transplant 04/30 Confirmed Active Diabetes mellitus with PVD; stents; [facility] Confirmed Active Diabetes mellitus with cataract Confirmed [...] back pain Confirmed 06/15/15 Active Microscopic hematuria; [facility] Confirmed Active Neck pain Confirmed 08/29/19 [...] Confirmed 06/21/05 Active Tremor - Neurology at [facility] Confirmed 02/07/18 Active Type 2 DM with renal manifestations; [facility] Confirmed 05/04/16 Active 1EF 20-25% prior to transplant Social History Social History Type Response Smoking Status Former smoker, quit more than 30 days ago entered on: 06/01/21 Sex Patient Care team information Care Team Personnel Name: Nenita Song Position: [facility] RN Supv Member Role: Primary Care Nurse Name: Najma Michael RN Position: [facility] RN Member Role: Primary Care Nurse Name: Mallory Masterson NP Position: [facility] PCO Associate Professional Member Role: Primary Care Nurse Name: Scarlet Rosenthal RN Position: [facility] RN Member Role: Primary Care Nurse Name: Dung Chen MD Position: [facility] Primary Care Physician Member Role: PCP Address: Address: [address] [place] [id number] Name: Heydi Oviedo RN Position: [facility] Hospital Electrical Accessories I Assembler Member Role: Primary Care Nurse Name: Sandra Cat Position: [facility] Outreach Member Role: Lifetime Consulting Physician Name: Belinda Stevenson RN Position: [facility] RN Member Role: Primary Care Nurse Name: Luis Peters MD Position: [facility] Renal MD Member Role: Lifetime Consulting Physician Address: Address: [address] [facility] [address] [facility] [place] [address]- Name: Zulma Martinez MD Position: [facility] Cardiology MD Member Role: Lifetime Consulting Physician Address: Address: [address] [facility] [address] [place] [address]- [place] Name: Hilda Mcdonald RN Position: S RN Member Role: Primary Care Nurse Care Team Related Persons Name: LUCIA BATEMAN Address: home [address] [place] [address]
--- OUTSIDE RECORDS SUMMARY | 2023-05-15 08:51 | XMS_ITS | Continuity of Care Document ---
Author Name Unknown Organization [facility] ter Address [address] [place] [id number]- Care Team Providers Care Terrazzo Worker Name Role Phone Dung Chen MD Primary Care Physician [phone] [place] [facility] [place] [id number] Date(s): 07/22/21 - 08/21/[address] [address]- Attending Physician: Admtr, Ar8 Admitting Physician: Admtr, [...] he received this seasons flu vaccine at [place]. 3Admin Note: Patient states he received pneumovax in 2004 at [place]. Medications aspirin 81 mg oral delayed release tablet 81 mg, 1, tablet, By Mouth, Daily, # 30 tablet, Refills 0, Tot. Refills 0, Maintenance, 06/08/21 11:45:00 EST, Route to Pharmacy Electronically, [facility]/pharmacy #[id number], Partial fill upon patient request if the prescription is for a schedule II opioid drug... Start Date: 06/08/21 Stop Date: 07/08/21 Status: Ordered Carafate 1 gm oral tablet 2 Gm, 2, tablet, By Mouth, 4 times a day, # 240 tablet, Refills 0, Tot. Refills 0, Maintenance, 06/08/21 11:45:00 EST, [id number], Partial fill upon patient request if [...] 16:08:00 EST, Route to Pharmacy Electronically, [facility]/pharmacy #[id number], 175, cm, 12/05/18 15:23:00 EDT, [...]
--- OUTSIDE RECORDS SUMMARY | 2023-05-15 08:52 | XMS_ITS | Continuity of Care Document ---
Author Name Unknown Organization [facility] Address [address] [place] [id number]- Care Team Providers Care Inspector And Adjuster Golf Club Head Name Role Phone Dung Chen MD Primary Care Physician En[place] [facility] [place](s): 01/22/20 - 02/21/20 [facility] [address] [place] [id number] Attending Physician: AdmtrScott Admitting Physician: [id number] Referring Physician: Admtr, Ar8 Allergies, Adverse Reactions, [...] he received this seasons flu vaccine at [place]. 3Admin Note: Patient states he received pneumovax in 2004 at [place]. Medications aspirin 81 mg oral tablet 1 [...] Refills, Maintenance, 06/09/19 9:51:00 EST, EC Capsule, [facility]/pharmacy #[id number], 175, cm, 12/05/18 15:23:00 EDT, [...] 01/28/20 14:36:00 EDT, Route to Pharmacy Electronically, [facility]/pharmacy #[id number], 176, cm, 01/06/20 19:56:00 EDT, [...] 16:08:00 EST, Route to Pharmacy Electronically, [facility]/pharmacy #[id number], 175, cm, 12/05/18 15:23:00 EDT, [...]
--- OUTSIDE RECORDS SUMMARY | 2023-05-15 08:52 | XMS_ITS | Continuity of Care Document ---
Author Name Unknown Organization [facility] Address [address] [place] [address]- Care Team Providers Care Fine Grade Bulldozer Operator Name Role Phone Dung Chen MD Primary Care Physician [phone] [facility]counter [facility] Date(s): 09/27/21 - 10/27/21 [facility] [address] [place], [place] [address] Attending Physician: Scott Mcintosh Admitting Physician: Scott Mcintosh Referring Physician: Scott Mcintosh Referring Physician: María Pacheco Allergies, Adverse Reactions, Alerts Substance Reaction Severity Status lisinopril Active Immunizations Given and Recorded Vaccine Date Status Refusal Reason SARS-CoV-2 mRNA (vdkzylj-ylok-ryjbd) vax 07/18/21 Recorded SARS-CoV-2 (COVID-19) mRNA BNT-162b2 [...] he received this seasons flu vaccine at [place]. 3Admin Note: Patient states he received pneumovax in 2004 at [place]. Medications aspirin 81 mg oral delayed release tablet 81 mg, 1, tablet, By Mouth, Daily, # 30 tablet, Refills 0, Tot. Refills 0, Maintenance, 06/08/21 11:45:00 EST, Route to Pharmacy Electronically, [facility]/pharmacy #[id number], Partial fill upon patient request if the [...] opioid drug. Start Date: 09/25/21 Status: Ordered furosemide 20 mg oral tablet 20 mg, 1, tablet, By Mouth, Daily, Refills 0, Maintenance, 09/25/21 10:18:00 EDT, Partial fill uponpatient request if the prescription is for a schedule II opioid drug. Start Date: 09/25/21 Status: Ordered gabapentin 600 mg oral tablet 1 tablet = 600 mg, By Mouth, 3 times a day, TAKE 1 TABLET BY MOUTH 3 TIMES DAILY FOR 90 DAYS., # 270 tablet, 2 Refills, Maintenance, 09/27/21 11:24:00 EDT, Tablet, [facility]/pharmacy #[id number], Partial fill upon patient request if the prescription is for a sche... Start Date: 09/27/21 Status: Ordered HumaLOG Cartridge 100 units/mL injectable [...] mg, By Mouth, Daily, # 90 tablet, 2 Refills, Maintenance, 09/27/21 11:24:00 EDT, CR Tablet, 175.3, cm, 09/27/21 10:36:00 EDT, Height, 86.2, kg, 08/26/21 12:59:00 EDT, Dry Weight Start Date: 09/27/21 Stop Date: 06/24/22 Status: Ordered Pen [place], 32 G x 4 mm BD Ultra [...] 04/07/17 12:49:42 Start Date: 04/07/17 Status: Ordered saccharomyces cindi lyo 250 mg oral capsule 1 capsule = 250 mg, By Mouth, 2 times a day, 0 Refills, Maintenance, 09/25/21 10:17:00 EDT, Partialfill upon patient request if the prescription is for a schedule II opioid drug. Start Date: 09/25/21 Status: Ordered sucralfate 1 gm oral tablet TAKE 2 TABLETS BY MOUTH 4 TIMES A DAY Start Date: 09/25/21 Status: Ordered tacrolimus 1 mg oral capsule [...] 11:24:00 EDT, Route to Pharmacy Electronically, [facility]/pharmacy #[id number], 175.3,cm, 09/27/21 10:36:00 EDT, Height, 86.2, [...] (automatic cardioverter/defibrillator) present(Confirmed) 06/21/05 Active BPH - [facility](Confirmed) 03/14/21 Active Chronic kidney disease stage 3(Confirmed) 05/17/11 Active CAD; s/p CABG 1997, [place] 2006 w/stent; heart transplant 04/30(Confirmed) Active Diabetes mellitus(Confirmed) Active Diabetes mellitus with PVD; stents; [facility](Confirmed) Active Diabetes mellitus with cataract(Confirmed) Active Dysautonomia(Confirmed) 10/19/18 Active Dry eyes(Confirmed) 11/18/16 Active Erectile dysfunction(Confirmed) 06/21/05 Active Erosive gastropathy - 08/05 EGD(Confirmed) 07/29/20 Active Esophageal dysmotility(Confirmed) 07/21/20 Active Gastroesophageal [...] positive PPD, s/p 9mo INH(Confirmed) 03/07/06 Active Obstructive sleep apnea syndrome(Confirmed) 09/08/11 Active Osteopenia - minimal, on DXA 08/01(Confirmed) 08/08/16 Active Peripheral neuropathy(Confirmed) Active Colon polyp(Confirmed) Active Presbyesophagus(Confirmed) 07/21/20 Active Pure hypercholesterolemia(Confirmed) 06/21/05 Active Tremor - Neurology at [facility](Confirmed) 02/07/18 Active 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
--- OUTSIDE RECORDS SUMMARY | 2023-05-15 08:52 | XMS_ITS | Continuity of Care Document ---
Author Name Unknown Organization [facility] [place] Address [address] [place] [address]- Care Team Providers Care Heel Sprayer Name Role Phone Dung Chen MD Primary Care Physician [phone] Encounter [facility] Date(s): 04/03/20 - 06/21/20 [facility] [place] [address] [place], [place] [address] Attending Physician: Kaycee CALLOWAY, [place] Referring Physician: Dung Chen MD Allergies, Adverse [...] he received this seasons flu vaccine at [place]. 3Admin Note: Patient states he received pneumovax in 2004 at [place]. Medications aspirin 81 mg oral tablet 1 [...] Refills 0, Maintenance, please include shoe inserts, 04/25/18 14:44:27 EDT, Compound Start Date: 08/09/17 Status: Ordered duloxetine 60 mg oral enteric coated capsule 1 capsule = 60 mg, By Mouth, 2 times a day, # 60 capsule, 5 Refills, Maintenance, 06/09/19 9:51:00 EST, EC Capsule, [facility]/pharmacy #[id number], 175, cm, 12/05/18 15:23:00 EDT, [...] 05/19/20 10:59:00 EST, Route to Pharmacy Electronically, [facility]/pharmacy #[id number], Partial fill upon patient request [...] 01/28/20 14:36:00 EDT, Route to Pharmacy Electronically, [facility]/pharmacy #[id number], 176, cm, 01/06/20 19:56:00 EDT, [...] 05/27/19 16:08:00 EST, Route to Pharmacy Electronically, [facility]/pharmacy #[id number], 175, cm, 12/05/18 15:23:00 EDT, [...]
--- OUTSIDE RECORDS SUMMARY | 2023-05-15 08:52 | XMS_ITS | Continuity of Care Document ---
Author Name Unknown Organization [facility] Address [address] [place] [address]- Care Team Providers Care Belt Cleaner Name Role Phone Not on Staff, PCP Primary Care Physician Unavail able [facility] Date[facility]s): 08/24/21 - 09/23/21 [facility] [address] [place], [place] [address] Allergies, Adverse Reactions, [...] he received this seasons flu vaccine at [place]. 3Admin Note: Patient states he received pneumovax in 2004 at [place]. Medications aspirin 81 mg oral delayed release tablet 81 mg, 1, tablet, By Mouth, Daily, # 30 tablet, Refills 0, Tot. Refills 0, Maintenance, 06/08/21 11:45:00 EST, Route to Pharmacy Electronically, [facility]/pharmacy #[id number], Partial fill upon patient request if the [...] 05/27/19 16:08:00 EST, Route to Pharmacy Electronically, [facility]/pharmacy #[id number], 175, cm, 12/05/18 15:23:00 EDT, Height, [...]
--- OUTSIDE RECORDS SUMMARY | 2023-05-15 08:52 | XMS_ITS | Continuity of Care Document ---
Author Name Unknown Organization [facility] Address [address] [place] [address]- Care Team Providers Care Functional Consultant Name Role Phone Dung Chen MD Primary Care Physician [phone] Encounter [facility] Date(s): 10/17/19 - 11/16/19 [facility] [address] [place] [address]- [facility] Allergies, Adverse Reactions, Alerts Substance Reaction Severity [...] he received this seasons flu vaccine at [place]. 3Admin Note: Patient states he received pneumovax in 2004 at [place]. Medications aspirin 81 mg oral tablet 1 [...] Refills, Maintenance, 06/09/19 9:51:00 EST, EC Capsule, [facility]/pharmacy #[id number], 175, cm, 12/05/18 15:23:00 [...] 05/27/19 16:08:00 EST, Route to Pharmacy Electronically, [facility]/pharmacy #[id number], 175, cm, 12/05/18 15:23:00 [...]
--- OUTSIDE RECORDS SUMMARY | 2023-05-15 08:52 | XMS_ITS | Continuity of Care Document ---
Author Name Unknown Organization [facility] Address [address] [place] [address]- Care Team Providers Care Roof Tiler Name Role Phone Dung Chen MD Primary Care Physician [facility] Date[facility] 05/22/20 - 06/21/20 [facility] [address] [place] [id number] Attending Physician: Admtr, Ar8 Admitting Physician: Admtr, [...] he received this seasons flu vaccine at [place]. 3Admin Note: Patient states he received pneumovax in 2004 at [place]. Medications aspirin 81 mg oral tablet 1 [...] Refills, Maintenance, 06/09/19 9:51:00 EST, EC Capsule, [facility]/pharmacy #[id number], 175, cm, 12/05/18 15:23:00 EDT, [...] 05/19/20 10:59:00 EST, Route to Pharmacy Electronically, [facility]/pharmacy #[id number], Partial fill upon patient request [...] 01/28/20 14:36:00 EDT, Route to Pharmacy Electronically, [facility]/pharmacy #[id number], 176, cm, 01/06/20 19:56:00 EDT, [...] 05/27/19 16:08:00 EST, Route to Pharmacy Electronically, [facility]/pharmacy #[id number], 175, cm, 12/05/18 15:23:00 EDT, Height, 84.5, kg, 05/22/18... Start Date: 05/27/19 Stop Date: 11/23/19 Status: Ordered Problem List Condition Effective Dates Status Health Status Inform ant Adjustment Disorder with Mix ed Anxiety and Depressed Mood(Confirmed) Active Coronary artery disease(Confirmed) Active Hypercalcemia(Confirmed) Active Ischemic cardiomyopathy(Confirmed) Active Mild somatic symptom disorde r with predominant pain(Confirmed) Active Vital Signs Most recent to oldest [Reference Range]: 1 Height 172.80 cm (06/14/10 4:24 PM) Weight 107.720 kg (06/14/10 4:24 PM) Pulse Rate [55-90 bpm] 72 bpm (06/14/10 4:24 PM) Body Mass Index [18.50-24.99] 36.08 *>HHI* (06/14/10 4:24 PM) Blood Pressure [90-138/55-84 mm Hg] 110/ 68mm Hg (06/14/10 4:24 PM) Blood pressure sites Arm, left (06/14/10 4:24 PM) Social History Social History Type Response Smoking Status Former smoker; Tobac [employer] user in household: No; Other: Quit 1997; entered on: 03/08/17 Sex
--- OUTSIDE RECORDS SUMMARY | 2023-05-15 08:52 | XMS_ITS | Continuity of Care Document ---
Author Name Unknown Organization [facility] Address [address] [place] [address]- Care Team Providers Care Reaming Machine Tender Name Role Phone Dung Chen MD Primary Care Physician [phone] Encounter [facility] Date(s): 03/22/23 - 04/21/23 [facility] [address] [place], [place] [address] Allergies, Adverse Reactions, [...] virus vaccine, inactivated 03/07/06 Quinn rded SARS-CoV-2(COVID-19)mRNA-LNP vac([id number]) 02/06/23 Recorded tetanus/diphtheria/pertussis, acel(Tdap) 2 12/08/22 Given tetanus/diphtheria/pertussis, acel(Tdap) 03/27/12 Recorded pneumococcal 20-valent conjugate vaccine 3 12/08/22 Given [id number] 12y+ bivalent booster vax 04/15/22 Recorded SARS-CoV-2 mRNA (dloxxai-qqld-abuqj) vax 07/18/21 Recorded SARS-CoV-2 (COVID-19) mRNA BNT-162b2 [...] 2795CA Exp. #) SEP 23 2Result Comment: [facility] [id number] 3Result Comment: [facility] [id number] 4Admin Note: Pt states he received this seasons flu vaccine at [place]. 5Admin Note: Patient states he received pneumovax in 2004 at [place]. Medications Albuterol 0.083% inhalation roger Refills 0, Maintenance, 03/20/23 8:54:00 EST Start Date: 03/20/23 Status: Ordered amLODIPine 10 mg oral tablet 10 mg, 1, tablet, By Mouth, Daily, # 90 tablet, Refills 3, Tot. Refills 3, Maintenance, 11/03/22 11:30:00 EDT, Route to Pharmacy Electronically, [facility] ([facility] ), Partial fill upon patient [...] EST, Route to Pharmacy Electronically, [facility]/pharmacy #[id number], Partial fill upon patient [...] 3 Refills, Maintenance, 01/19/23 18:26:00 EDT, [place] [place],[facility], Partial fill upon patient request if the prescription is for a schedule II opioid drug., 1 sprays Nares, Both Daily, 173, cm, 10/0... Start Date: 01/19/23 Status: Ordered gabapentin 600 mg oral tablet 1 tablet = 600 mg, By Mouth, 3 times a day, # 270 tablet, 2 Refills, Maintenance, 04/15/23 11:36:00EST, Tablet, [facility], Partial fill upon patient request if the prescription is for a schedule II opioid drug., 173, cm, 03/20/23 8:55:00 ES... Start Date: 04/15/23 Status: Ordered insulin lispro 100 u/ml subcutaneous [...] 12/08/22 11:17:00 EDT, Solution, [facility] ([facility]), Partial fillupon patient request if [...] r) present Confirmed 06/21/05 Active BPH - [facility] Confirmed 03/14/21 Active Chronic kidney disease stage 3 Confirmed 05/17/11 Active CAD; s/p CABG 1997, [place] 2006 w/stent; heart transplant 04/30 Confirmed Active Diabetes mellitus with PVD; stents; [facility] Confirmed Active Diabetes mellitus with [...] back pain Confirmed 06/15/15 Active Microscopic hematuria; [facility] Confirmed Active Neck pain Confirmed [...] B12 Confirmed Active Tremor - Neurology at [facility] Confirmed 02/07/18 Active Type 2 DM with renal manifestations; [facility] Confirmed 05/04/16 Active Vitamin D deficiency Confirmed Active 1EF 20-25% prior to transplant Social History Social History Type Response Smoking Status Former smoker, quit more than 30 days ago entered on: 10/24/22 Sex Patient Care team information Care Team Personnel Name: Nenita Song Position: [facility] RN Supv Member Role: Primary Care Nurse Name: Sherice Mariscal RN Position: [facility] RN Member Role: Primary Care Nurse Name: Najma Michael RN Position: [facility] RN Member Role: Primary Care Nurse Name: Mallory Masterson NP Position: Reference Physician Member Role: Primary Care Nurse Address: Address: [address] [place] [address]- Name: Scarlet Rosenthal RN Position: [facility] RN Member Role: Primary Care Nurse Name: Dung Chen MD Position: [facility] Physician - Primary Care Member Role: PCP Address: Address: [address] [place] [address]- Name: Heydi Oviedo RN Position: [facility] Hospital Construction Laborer Member Role: Primary Care Nurse Name: Mercy Veliz RN Position: [facility] RN Member Role: Primary Care Nurse Name: Sandra Cat Position: [facility] Outreach Member Role: Lifetime Consulting Physician Name: Nicki Garcia RN Position: [facility] RN Member Role: Primary Care Nurse Name: Vane Davalos RN Position: [facility] RN Member Role: Primary Care Nurse Name: Belinda Stevenson RN Position: [facility] SN RN Member Role: Primary Care Nurse Name: Luis Peters MD Position: [facility] Renal MD Member Role: Lifetime Consulting Physician Address: Address: [address] [place] [address] [address] [facility], [place] [address]- [place] Name: Zulma Martinez MD Position: [facility] Cardiology MD Member Role: Lifetime Consulting Physician Address: Address: [address] [place] [address]- Name: Evelyn Jean-Baptiste RN Position: [facility] RN Member Role: Primary Care Nurse Name: Hilda Mcdonald RN Position: [facility] RN Member Role: Primary Care Nurse Care Team Related Persons Name: BATEMAN LUCIA Address: home [address] [place] [id number]
--- OUTSIDE RECORDS SUMMARY | 2023-05-15 08:52 | XMS_ITS | Continuity of Care Document ---
Author Name Unknown Organization [facility] Address [address] [place] [address]- Care Team Providers Care Pole Shaver Helper Name Role Phone Dung Chen MD Primary Care Physician [facility] Date(s): 04/26/22 - 05/26/22 [facility] [address] [place], [place] [address] Allergies, Adverse Reactions, Alerts Substance Reaction Severity Status lisinopril Active Immunizations Given and Recorded Vaccine Date Status Refusal Reason SARS-CoV-2 mRNA (anpvmvq-kflc-cgsjh) vax 07/18/21 Recorded SARS-CoV-2 (COVID-19) mRNA BNT-162b2 [...] he received this seasons flu vaccine at [place]. 3Admin Note: Patient states he received pneumovax in 2004 at [place]. Medications amLODIPine 5 mg oral tablet 5 mg, 1, tablet, By Mouth, Daily, # 90 tablet, Refills 1, Tot. Refills 1, Maintenance, 05/12/22 11:54:00 EST, Route to Pharmacy Electronically, [facility] ([facility] ), Partial fill upon patient request if the prescription is for a... Start Date: 05/12/22 Status: Ordered aspirin 81 mg oral delayed release tablet 81 mg, 1, tablet, By Mouth, Daily, # 30 tablet, Refills 0, Tot. Refills 0, Maintenance, 06/08/21 11:45:00 EST, Route to Pharmacy Electronically, [facility]/pharmacy #[id number], Partial fill upon patient request if [...] 02/03/22 9:07:00 EDT, Route to Pharmacy Electronically, [facility] ([facility]), 175.3, cm, 01/03/22 13:47:00 EDT, [...] Maintenance, 05/24/22 12:19:00 EST, [facility] ([facility] ), Partial fill upon patient [...] Weight Start Date: 04/03/22 Status: Ordered Pen [place], 31 G x 8 mm BD Ultra Fine III See Instructions, # 300 each, Refills 6, Tot. Refills 6, Maintenance, use as directed for Type 2 Diabetes Mellitus for 5 injections per day E11.9, 12/09/21 9:52:00 EDT, Supply, 175.3, cm, 12/06/21 7:36:00 EDT, Height, 95.3, kg, 12/06/21 7:36:00 EDT... Start Date: 12/09/21 Stop Date: 08/31/23 Status: Ordered Pen [place], 32 G x 4 mm BD Ultra [...] 05/12/22 11:54:00 EST, Route to Pharmacy Electronically, [facility] ([facility] ), 175, cm, 05/12/22 11:49:00 EST, H... Start Date: 05/12/22 Status: Ordered Problem List Condition Confirmation Course Effective Dates Status Health Status Informant AICD (automatic cardioverter/defibrillato r) present Confirmed 06/21/05 Active BPH - [facility] Confirmed 03/14/21 Active Chronic kidney disease stage 3 Confirmed 05/17/11 Active CAD; s/p CABG 1997, [place] 2006 w/stent; heart transplant 04/30 Confirmed Active Diabetes mellitus with PVD; stents; [facility] Confirmed Active Diabetes mellitus with cataract [...] back pain Confirmed 06/15/15 Active Microscopic hematuria; [facility] Confirmed Active Neck pain Confirmed [...] Confirmed 06/21/05 Active Tremor - Neurology at [facility] Confirmed 02/07/18 Active Type 2 DM with renal manifestations; [facility] Confirmed 05/04/16 Active 1EF 20-25% prior to transplant Social History Social History Type Response Smoking Status Former smoker, quit more than 30 days ago entered on: 06/01/21 Sex Patient Care team information Care Team Personnel Name: Nenita Song Position: [facility] RN Supv Member Role: Primary Care Nurse Name: Najma Michael RN Position: [facility] RN Member Role: Primary Care Nurse Name: Mallory Masterson NP Position: [facility] PCO Associate Professional Member Role: Primary Care Nurse Name: Scarlet Rosenthal RN Position: [facility] RN Member Role: Primary Care Nurse Name: Dung Chen MD Position: [facility] Primary Care Physician Member Role: PCP Address: Address: [address] [place] [id number] Name: Heydi Oviedo RN Position: [facility] Hospital Machine Deicer Element Winder Member Role: Primary Care Nurse Name: Sandra Cat Position: [facility] Outreach Member Role: Lifetime Consulting Physician Name: Belinda Stevenson RN Position: [facility] RN Member Role: Primary Care Nurse Name: Luis Peters MD Position: [facility] Renal MD Member Role: Lifetime Consulting Physician Address: Address: [address] [facility] [place] [address]- Name: Zulma Martinez MD Position: [facility] Cardiology MD Member Role: Lifetime Consulting Physician Address: Address: [address] [facility] [address] [place] [address]- [place] Name: Hilda Mcdonald RN Position: [facility] RN Member Role: Primary Care Nurse Care Team Related Persons Name: BHAVANA LUCIA Address: home [address] [place] [address]
--- OUTSIDE RECORDS SUMMARY | 2023-05-15 08:52 | XMS_ITS | Continuity of Care Document ---
Author Name Unknown Organization [facility] Address [address] [place] [address]- Care Team Providers Care Packing Floor Worker Name Role Phone Dung Chen MD Primary Care Physician Encounter [facility] Date(s): 05/25/22 - 06/24/22 [facility] [address] [place] [address] Allergies, Adverse Reactions, Alerts Substance Reaction Severity Status lisinopril Active Immunizations Given and Recorded Vaccine Date Status Refusal Reason SARS-CoV-2 mRNA (pulazss-vrkg-dehsz) vax 07/18/21 Recorded SARS-CoV-2 (COVID-19) mRNA BNT-162b2 [...] he received this seasons flu vaccine at [place]. 3Admin Note: Patient states he received pneumovax in 2004 at [place]. Medications amLODIPine 5 mg oral tablet 5 mg, 1, tablet, By Mouth, Daily, # 90 tablet, Refills 1, Tot. Refills 1, Maintenance, 05/12/22 11:54:00 EST, Route to Pharmacy Electronically, [facility] ([facility] ), Partial fill upon patient request if the prescription is for a... Start Date: 05/12/22 Status: Ordered aspirin 81 mg oral delayed release tablet 81 mg, 1, tablet, By Mouth, Daily, # 30 tablet, Refills 0, Tot. Refills 0, Maintenance, 06/08/21 11:45:00 EST, Route to Pharmacy Electronically, [facility]/pharmacy #[id number], Partial fill upon patient request if [...] 0 Refills, Maintenance, 04/12/22 19:33:00 EST, Capsule, [facility]/pharmacy #[id number], Partial fill upon patient request if [...] 02/03/22 9:07:00 EDT, Route to Pharmacy Electronically, [facility] ([facility]), 175.3, cm, 01/03/22 13:47:00 EDT, [...] Maintenance, 05/24/22 12:19:00 EST, [facility] ([facility] ), Partial fill upon patient [...] Weight Start Date: 04/03/22 Status: Ordered Pen [place], 31 G x 8 mm BD Ultra Fine III See Instructions, # 300 each, Refills 6, Tot. Refills 6, Maintenance, use as directed for Type 2 Diabetes Mellitus for 5 injections per day E11.9, 12/09/21 9:52:00 EDT, Supply, 175.3, cm, 12/06/21 7:36:00 EDT, Height, 95.3, kg, 12/06/21 7:36:00 EDT... Start Date: 12/09/21 Stop Date: 08/31/23 Status: Ordered Pen [place], 32 G x 4 mm BD Ultra [...] Route to Pharmacy Electronically, [facility] ([facility] ), 175, cm, 05/12/22 11:49:00 EST, H... Start Date: 05/12/22 Status: Ordered Vitamin D3 50,000 intl units oral capsule 1 capsule = 1,250 mcg, By Mouth, Every week, # 8 capsule, 0 Refills, Maintenance, 06/08/22 12:19:00EST, Capsule, [facility]/pharmacy #[id number], Partial fill upon patient request if the prescription is for a schedule II opioid drug., 176, cm, 06/08/22 12:04:00 E... Start Date: 06/08/22 Stop Date: 08/03/22 Status: Ordered Problem List Condition Confirmation Course Effective Dates Status Health Status Informant AICD (automatic cardioverter/defibrillato r) present Confirmed 06/21/05 Active BPH - [facility] Confirmed 03/14/21 Active Chronic kidney disease stage 3 Confirmed 05/17/11 Active CAD; s/p CABG 1997, [place] 2006 w/stent; heart transplant 04/30 Confirmed Active Diabetes mellitus with PVD; stents; [facility] Confirmed Active Diabetes mellitus with cataract Confirmed [...] back pain Confirmed 06/15/15 Active Microscopic hematuria; [facility] Confirmed Active Neck pain Confirmed [...] Confirmed 06/21/05 Active Tremor - Neurology at [facility] Confirmed 02/07/18 Active Type 2 DM with renal manifestations; [facility] Confirmed 05/04/16 Active 1EF 20-25% prior to transplant Social History Social History Type Response Smoking Status Former smoker, quit more than 30 days ago entered on: 06/01/21 Sex Note * Len Barros: PERFORM Event Display: Discharge/Transfer Note Hospital Authored Date: [id number] Nursing Discharge Note Entered On: 06/08/2022 14:23 EST Performed On: 06/08/2022 14:20 EST by Len Barros Nursing Discharge Note 2 Discharge Time : 06/08/2022 14:15 EST Discharge Level of Care at Discharge : Home/Penitentiary/Foster Care Patient Left Unit Via : Wheelchair Patient Accompanied Off Unit with : Significant other DC Instructions Provided & Signed by Pt : Yes Patient Understands D/C Instructions : Yes Patient Instructions Discharge Signed : Yes Did Pt have Specialty Bed or Wound Vac : No Len Barros - 06/08/2022 14:20 EST Patient Care team information Care Team Personnel Name: Duncan , Nenita Position: [facility] RN Supv Member Role: Primary Care Nurse Name: Najma Michael RN Position: S RN Member Role: Primary Care Nurse Name: Aleja TRANSFER CAR OPERATORMallory Position: Reference Physician Member Role: Primary Care Nurse Address: Address: [address] [place] [address]- [place] Name: Scarlet Rosenthal RN Position: [facility] RN Member Role: Primary Care Nurse Name: Dung Chen MD Position: [facility] Primary Care Physician Member Role: PCP Address: Address: [address] [place] [address]- Name: Heydi Oviedo RN Position: [facility] Hospital Associate Dean Member Role: Primary Care Nurse Name: Sandra Cat Position: [facility] Outreach Member Role: Lifetime Consulting Physician Name: Luis Peetrs MD Position: [facility] Renal MD Member Role: Lifetime Consulting Physician Address: Address: [address] [facility] [address] [facility] [place] [address]- [place] Name: Zulma Martinez MD Position: [facility] Cardiology MD Member Role: Lifetime Consulting Physician Address: Address: [address] [place] [address]- [place] Name: Evelyn Jean-Baptiste RN Position: [facility] RN Member Role: Primary Care Nurse Name: Hilda Mcdonald RN Position: [facility] RN Member Role: Primary Care Nurse Care Team Related Persons Name: LUCIA BATEMAN Address: home [address] [place] [address]
--- OUTSIDE RECORDS SUMMARY | 2023-05-15 08:52 | XMS_ITS | Continuity of Care Document ---
Author Name Unknown Organization [facility] [place] Address [address] [place] [address]- Care Team Providers Care Gluing Pressman Name Role Phone Dung Chen MD Primary Care Physician Encounter [facility] Date(s): 02/27/20 - 06/21/20 [facility] [place] [address] [place], [place] [address] Attending Physician: Kaycee CALLOWAY, Ibitoro Referring Physician: [...] he received this seasons flu vaccine at [place]. 3Admin Note: Patient states he received pneumovax in 2004 at [place]. Medications aspirin 81 mg oral tablet 1 [...] Refills, Maintenance, 06/09/19 9:51:00 EST, EC Capsule, [facility]/pharmacy #[id number], 175, cm, 12/05/18 15:23:00 EDT, [...] 05/19/20 10:59:00 EST, Route to Pharmacy Electronically, [facility]/pharmacy #[id number], Partial fill upon patient request [...] 01/28/20 14:36:00 EDT, Route to Pharmacy Electronically, [facility]/pharmacy #[id number], 176, cm, 01/06/20 19:56:00 EDT, [...] 05/27/19 16:08:00 EST, Route to Pharmacy Electronically, [facility]/pharmacy #[id number], 175, cm, 12/05/18 15:23:00 EDT, [...]
--- OUTSIDE RECORDS SUMMARY | 2023-05-15 08:52 | XMS_ITS | Continuity of Care Document ---
Author Name Unknown Organization [facility] Address [address] [place] [address]- Care Team Providers Care Railroad Construction Director Name Role Phone Dung Chen MD Primary Care Physician Encounter [facility] Date(s): 04/24/22 - 05/24/22 [facility] [address] [place], [place] [address] Allergies, Adverse Reactions, Alerts Substance Reaction Severity Status lisinopril Active Immunizations Given and Recorded Vaccine Date Status Refusal Reason SARS-CoV-2 mRNA (ysxnnos-uszc-nlnqp) vax 07/18/21 Recorded SARS-CoV-2 (COVID-19) mRNA BNT-162b2 [...] he received this seasons flu vaccine at [place]. 3Admin Note: Patient states he received pneumovax in 2004 at [place]. Medications amLODIPine 5 mg oral tablet 5 mg, 1, tablet, By Mouth, Daily, # 90 tablet, Refills 1, Tot. Refills 1, Maintenance, 05/12/22 11:54:00 EST, Route to Pharmacy Electronically, [facility] ([facility] ), Partial fill upon patient request if the prescription is for a... Start Date: 05/12/22 Status: Ordered aspirin 81 mg oral delayed release tablet 81 mg, 1, tablet, By Mouth, Daily, # 30 tablet, Refills 0, Tot. Refills 0, Maintenance, 06/08/21 11:45:00 EST, Route to Pharmacy Electronically, [facility]/pharmacy #[id number], Partial fill upon patient [...] 0 Refills, Maintenance, 04/12/22 19:33:00 EST, Capsule, [facility]/pharmacy #[id number], Partial fill upon patient [...] 02/03/22 9:07:00 EDT, Route to Pharmacy Electronically, [facility] ([facility]), 175.3, cm, 01/03/22 13:47:00 EDT, [...] Weight Start Date: 04/03/22 Status: Ordered Pen [place], 31 G x 8 mm BD Ultra Fine III See Instructions, # 300 each, Refills 6, Tot. Refills 6, Maintenance, use as directed for Type 2 Diabetes Mellitus for 5 injections per day E11.9, 12/09/21 9:52:00 EDT, Supply, 175.3, cm, 12/06/21 7:36:00 EDT, Height, 95.3, kg, 12/06/21 7:36:00 EDT... Start Date: 12/09/21 Stop Date: 08/31/23 Status: Ordered Pen [place], 32 G x 4 mm BD Ultra [...] 05/12/22 11:54:00 EST, Route to Pharmacy Electronically, [facility] ([facility] ), 175, cm, 05/12/22 11:49:00 EST, H... Start Date: 05/12/22 Status: Ordered Problem List Condition Confirmation Course Effective Dates Status Health Status Informant AICD (automatic cardioverter/defibrillato r) present Confirmed 06/21/05 Active BPH - [facility] Confirmed 03/14/21 Active Chronic kidney disease stage 3 Confirmed 05/17/11 Active CAD; s/p CABG 1997, [place] 2006 w/stent; heart transplant 04/30 Confirmed Active Diabetes mellitus with PVD; stents; [facility] Confirmed Active Diabetes mellitus with cataract [...] back pain Confirmed 06/15/15 Active Microscopic hematuria; [facility] Confirmed Active Neck pain [...] Confirmed 06/21/05 Active Tremor - Neurology at [facility] Confirmed 02/07/18 Active Type 2 DM with renal manifestations; [facility] Confirmed 05/04/16 Active 1EF 20-25% prior to transplant Social History Social History Type Response Smoking Status Former smoker, quit more than 30 days ago entered on: 06/01/21 Sex Patient Care team information Care Team Personnel Name: Nenita Song Position: [facility] RN Supv Member Role: Primary Care Nurse Name: Najma Michael RN Position: [facility] RN Member Role: Primary Care Nurse Name: Mallory Masterson NP Position: [facility] PCO Associate Professional Member Role: Primary Care Nurse Name: Scarlet Rosenthal RN Position: [facility] RN Member Role: Primary Care Nurse Name: Dung Chen MD Position: [facility] Primary Care Physician Member Role: PCP Address: Address: [address] [place] [id number] Name: Heydi Oviedo RN Position: [facility] Hospital Assembler Lay Ups Member Role: Primary Care Nurse Name: Sandra Cat Position: [facility] Outreach Member Role: Lifetime Consulting Physician Name: Belinda Stevenson RN Position: [facility] RN Member Role: Primary Care Nurse Name: Luis Peters MD Position: [facility] Renal MD Member Role: Lifetime Consulting Physician Address: Address: [address] [facility] [address] [facility] [place] [address]- Name: Zulma Martinez MD Position: [facility] Cardiology MD Member Role: Lifetime Consulting Physician Address: Address: [address] [facility] [address] [place] [address]- [place] Name: Hilda Mcdonald RN Position: S RN Member Role: Primary Care Nurse Care Team Related Persons Name: LUCIA BATEMAN Address: home [address] [place] [address]
--- OUTSIDE RECORDS SUMMARY | 2023-05-15 08:52 | XMS_ITS | Continuity of Care Document ---
Author Name Unknown Organization [facility] Address [address] [place] [address]- Care Team Providers Care Stretch Press Operator Name Role Phone Dung Chen MD Primary Care Physician [place] [facility] [place](s): 04/01/20 - 04/08/20 [facility] [address] [place] [address] Attending Physician: Felix Duque MD Admitting Physician: Felix Duque MD Referring Physician: Dung Chen MD Allergies, [...] he received this seasons flu vaccine at [place]. 3Admin Note: Patient states he received pneumovax in 2004 at [place]. Medications aspirin 81 mg oral tablet 1 [...] Refills, Maintenance, 06/09/19 9:51:00 EST, EC Capsule, [facility]/pharmacy #[id number], 175, cm, 12/05/18 [...] 01/28/20 14:36:00 EDT, Route to Pharmacy Electronically, [facility]/pharmacy #[id number], 176, cm, 01/06/20 19:56:00 EDT, [...] 05/27/19 16:08:00 EST, Route to Pharmacy Electronically, [facility]/pharmacy #[id number], 175, cm, 12/05/18 [...] recent to oldest [Reference Range]: 1 Height 176 cm (04/01/20 11:26 AM) Weight 90.72 kg (04/01/20 11:26 AM) Body Mass Index [18.5-24.99] 29.29 *H* (04/01/20 11:26 AM) Blood Pressure [90-138/55-84 mm Hg] 128/ 68mm Hg (04/01/20 11:26 AM) Blood pressure sites Arm, right (04/01/20 11:26 AM) Social History Social History Type Response Smoking Status Former smoker; Tob[employer] user in household: No; Other: Quit 1997; entered on: 03/08/17 Sex
--- OUTSIDE RECORDS SUMMARY | 2023-05-15 08:52 | XMS_ITS | Continuity of Care Document ---
Author Name Unknown Organization [facility] Address [address] [place] [address]- Care Team Providers Care Oracle Database Consultant Name Role Phone Dung Chen MD Primary Care Physician Encounter [facility] Date(s): 03/22/23 - 04/21/23 [facility] [address] [place], [place] [address] Allergies, Adverse Reactions, [...] Quinn rded influenza virus vaccine, inactivated 01/22/10 Qiunn rded influenza virus vaccine, inactivated 01/17/10 Give n influenza virus vaccine, inactivated 1 02/21/08 Gi randi influenza virus vaccine, inactivated 01/22/07 Quinn rded influenza virus vaccine, inactivated 03/07/06 Quinn rded SARS-CoV-2(COVID-19)mRNA-LNP vac([id number]) 02/06/23 Recorded tetanus/diphtheria/pertussis, acel(Tdap) 2 12/08/22 Given tetanus/diphtheria/pertussis, acel(Tdap) 03/27/12 Recorded pneumococcal 20-valent conjugate vaccine 3 12/08/22 Given [id number] 12y+ bivalent booster vax 04/15/22 Recorded SARS-CoV-2 mRNA (ymczlao-ygtp-ygulr) vax 07/18/21 Recorded SARS-CoV-2 (COVID-19) mRNA BNT-162b2 [...] 2795CA Exp. #) SEP 23 2Result Comment: [facility] [id number] 3Result Comment: [facility] [id number] 4Admin Note: Pt states he received this seasons flu vaccine at [place]. 5Admin Note: Patient states he received pneumovax in 2004 at [place]. Medications Albuterol 0.083% inhalation roger Refills 0, Maintenance, 03/20/23 8:54:00 EST Start Date: 03/20/23 Status: Ordered amLODIPine 10 mg oral tablet 10 mg, 1, tablet, By Mouth, Daily, # 90 tablet, Refills 3, Tot. Refills 3, Maintenance, 11/03/22 11:30:00 EDT, Route to Pharmacy Electronically, [facility] ([facility] ), Partial fill upon patient [...] EST, Route to Pharmacy Electronically, [facility]/pharmacy #[id number], Partial fill upon patient [...] 3 Refills, Maintenance, 01/19/23 18:26:00 EDT, Nasal [place],[facility], Partial fill upon patient request [...] 12/08/22 11:17:00 EDT, Solution, [facility] ([facility]), Partial fillupon patient request if [...] r) present Confirmed 06/21/05 Active BPH - [facility] Confirmed 03/14/21 Active Chronic kidney disease stage 3 Confirmed 05/17/11 Active CAD; s/p CABG 1997, [place] 2006 w/stent; heart transplant 04/30 Confirmed Active Diabetes mellitus with PVD; stents; [facility] Confirmed Active Diabetes mellitus with [...] back pain Confirmed 06/15/15 Active Microscopic hematuria; [facility] Confirmed Active Neck pain Confirmed 08/29/19 [...] B12 Confirmed Active Tremor - Neurology at [facility] Confirmed 02/07/18 Active Type 2 DM with renal manifestations; [facility] Confirmed 05/04/16 Active Vitamin D deficiency Confirmed Active 1EF 20-25% prior to transplant Social History Social History Type Response Smoking Status Former smoker, quit more than 30 days ago entered on: 10/24/22 Sex Patient Care team information Care Team Personnel Name: Nenita Song Position: [facility] RN Supv Member Role: Primary Care Nurse Name: Sherice Mariscal RN Position: [facility] RN Member Role: Primary Care Nurse Name: Najma Michael RN Position: [facility] RN Member Role: Primary Care Nurse Name: Mallory Masterson NP Position: Reference Physician Member Role: Primary Care Nurse Address: Address: [address] [place] [address]- Name: Scarlet Rosenthal RN Position: [facility] RN Member Role: Primary Care Nurse Name: Dung Chen MD Position: [facility] Physician - Primary Care Member Role: PCP Address: Address: [address] [place] [address]- Name: Heydi Oviedo RN Position: [facility] Hospital Strap Stitcher Member Role: Primary Care Nurse Name: Mercy Veliz RN Position: [facility] RN Member Role: Primary Care Nurse Name: Sandra Cat Position: [facility] Outreach Member Role: Lifetime Consulting Physician Name: Nicki Garcia RN Position: [facility] RN Member Role: Primary Care Nurse Name: Vane Davalos RN Position: [facility] RN Member Role: Primary Care Nurse Name: Belinda Stevenson RN Position: [facility] SN RN Member Role: Primary Care Nurse Name: Luis Peters MD Position: [facility] Renal MD Member Role: Lifetime Consulting Physician Address: Address: [address] [place] [address] [address] [facility] [place] [address]- [place] Name: Zulma Martinez MD Position: [facility] Cardiology MD Member Role: Lifetime Consulting Physician Address: Address: [address] [place] [address]- Name: Evelyn Jean-Baptiste RN Position: [facility] RN Member Role: Primary Care Nurse Name: Hilda Mcdonald RN Position: [facility] RN Member Role: Primary Care Nurse Care Team Related Persons Name: BATEMAN LUCIA Address: home [address] [place] [address]
--- OUTSIDE RECORDS SUMMARY | 2023-05-15 08:52 | XMS_ITS | Continuity of Care Document ---
Author Name Unknown Organization [facility] Address [address] [place] [address]- Care Team Providers Care Taxi Driver Supervisor Name Role Phone Not on Staff, PCP Primary Care Physician Unavail able Encounter [facility] Date(s): 09/27/21 - 10/04/21 [facility] [address] [place] [address]- Encounter Diagnosis Peripheral neuropathy(Discharge Diagnosis) - 09/27/21 Diabetes mellitus(Discharge Diagnosis) - 09/27/21 Diarrhea(Discharge Diagnosis) - 09/28/21 History of COVID-19(Discharge Diagnosis) - 09/28/21 Heart transplant status - [facility](Discharge Diagnosis) - 09/27/21 Attending Physician: Dung Chen MD Allergies, Adverse Reactions, Alerts Substance Reaction Severity Status lisinopril Active Immunizations Given and Recorded Vaccine Date Status Refusal Reason SARS-CoV-2 mRNA (bkjjgpp-ilfr-jzjyt) vax 07/18/21 Recorded SARS-CoV-2 (COVID-19) mRNA BNT-162b2 [...] he received this seasons flu vaccine at [place]. 3Admin Note: Patient states he received pneumovax in 2004 at [place]. Medications aspirin 81 mg oral delayed release tablet 81 mg, 1, tablet, By Mouth, Daily, # 30 tablet, Refills 0, Tot. Refills 0, Maintenance, 06/08/21 11:45:00 EST, Route to Pharmacy Electronically, [facility]/pharmacy #[id number], Partial fill upon patient request if the [...] 2 Refills, Maintenance, 09/27/21 11:24:00 EDT, Tablet, [facility]/pharmacy #[id number], Partial fill upon patient request if [...] 09/27/21 Stop Date: 06/24/22 Status: Ordered Pen [place], 32 G x 4 mm BD Ultra [...] 04/07/17 12:49:42 Start Date: 04/07/17 Status: Ordered neva puente lyo 250 mg oral capsule 1 capsule [...] 09/27/21 11:24:00 EDT, Route to Pharmacy Electronically, [facility]/pharmacy #[id number], 175.3,cm, 09/27/21 10:36:00 EDT, Height, 86.2, kg, 08/26/... Start Date: 09/27/21 Stop Date: 03/26/22 Status: Ordered Tresiba 100 units/mL subcutaneous solution = 100 units, Subcutaneous Infusion, Daily, 0 Refills, Maintenance, 07/26/21 8:47:00 EDT, Partial fill upon patient request if the prescription is for a schedule II opioid drug. Start Date: 07/26/21 Status: Ordered Problem List Condition Effective Dates Status Health Status Inform ant AICD (automatic cardioverter/defibrillator) present(Confirmed) 06/21/05 Active BPH - [facility](Confirmed) 03/14/21 Active Chronic kidney disease stage 3(Confirmed) 05/17/11 Active CAD; s/p CABG 1997, [place] 2006 w/stent; heart transplant 04/30(Confirmed) Active Diabetes mellitus(Confirmed) Active Diabetes mellitus with PVD; stents; [facility](Confirmed) Active Diabetes mellitus with cataract(Confirmed) Active [...] hypercholesterolemia(Confirmed) 06/21/05 Active Tremor - Neurology at [facility](Confirmed) 02/07/18 Active Type 2 DM with renal manifes tations; [facility](Confirmed) 05/04/16 Active 1EF 20-25% prior to transplant Diagnosis Diagnosis Type Effective Dates Health Status Clinical Service Informant Peripheral neuropathy Discharge Diagnosis 09/27/21 Diabetes mellitus Discharge Diagnosis 09/27/21 Heart transplant status - [facility] Discharge Diagnosis 09/27/21 Non-Specified History of COVID-19 Discharge Diagnosis 09/28/21 Diarrhea Discharge Diagnosis 09/28/21 Procedures Procedure Date Related Diagnosis Body Site Status Operation on lumbar spine 09/21/20 Completed Surgical procedure on cervical spine 12/10/19 Completed Insertion of popliteal artery stent 2018 Completed Insertion of popliteal artery stent 2017 Completed Cataract surgery - R 09/18/14 Comp leted LVAD - Implantation of left ventricular assist device 2011 Completed CABG - Coronary artery bypass graft 1997 Completed Excision of squamous cell carcinoma Completed Vital Signs Most recent to oldest [Reference Range]: 1 Height 175.3 cm (09/27/21 10:36 AM) Social History Social History Type Response Smoking Status Former smoker, quit more than 30 days ago entered on: 06/01/21 Sex
--- OUTSIDE RECORDS SUMMARY | 2023-05-15 08:52 | XMS_ITS | Continuity of Care Document ---
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 Name Role Phone Dung Chen MD Primary Care Physician [phone] [place] [facility] [place] - 06/08/[address] [address] Discharge Disposition: A-D/C Home Attending Physician: Gautam CALLOWAY, Sarah Vivar Admitting Physician: Steffen Cerda MD Referring Physician: Not on Staff, Referring MD Allergies, Adverse Reactions, Alerts Substance Reaction Severity Status lisinopril Active Immunizations Given and Recorded Vaccine Date Status Refusal Reason SARS-CoV-2 mRNA ([id number]) vax 07/18/21 Recorded SARS-CoV-2 (COVID-19) mRNA BNT-162b2 vac 01/15/21 Recorded SARS-CoV-2 (COVID-19) mRNA BNT-162b2 vac 06/13/20 Recorded SARS-CoV-2 (COVID-19) mRNA BNT-162b2 vac 05/17/20 Recorded influenza virus vaccine, inactivated 01/07/21 Quinn rded influenza virus vaccine, inactivated 01/13/20 Quinn rded influenza virus vaccine, inactivated 02/06/19 Qunin rded influenza virus vaccine, inactivated 01/14/16 Quinn [...] he received this seasons flu vaccine at [facility]. 3Admin Note: Patient states he received pneumovax in 2004 at [facility]. Medications amLODIPine 5 mg oral tablet 5 mg, Tablet, By Mouth, 06/08/22 9:00:00 EST Start Date: 06/08/22 Stop Date: 06/08/22 Status: Completed amLODIPine 5 mg oral tablet 5 mg, 1, tablet, By Mouth, Daily, # 90 tablet, Refills 1, Tot. Refills 1, Maintenance, 05/12/22 11:54:00 EST, Route to Pharmacy Electronically, [facility] ([facility] ), Partial fill upon patient request if the prescription is for a... Start Date: 05/12/22 Status: Ordered aspirin 81 mg oral delayed release tablet 81 mg, 1, tablet, By Mouth, Daily, # 30 tablet, Refills 0, Tot. Refills 0, Maintenance, 06/08/21 11:45:00 EST, Route to Pharmacy Electronically, [facility]/pharmacy #[id number], Partial fill upon patient request if the prescription is for a schedule II opioid drug... Start Date: 06/08/21 Stop Date: 07/08/21 Status: Ordered cephalexin monohydrate 500 mg oral capsule 1 capsule = 500 mg, By Mouth, 4 times a day, for 6 days, # 24 capsule, 0 Refills, Acute 06/14/22 12:16:00 EST, 06/08/22 12:16:00 EST, Capsule, [facility]/pharmacy #[id number], Partial fill upon patient request ifthe prescription is for a schedule II opioid drug.,... Start Date: 06/08/22 Stop Date: 06/14/22 Status: Ordered duloxetine 20 mg oral enteric [...] 0 Refills, Maintenance, 04/12/22 19:33:00 EST, Capsule, [facility]/pharmacy #[id number], Partial fill upon [...] gabapentin 300 mg oral capsule 300 mg, Capsule, By Mouth, 06/08/22 9:00:00 EST Start Date: 06/08/22 Stop Date: 06/08/22 Status: Completed gabapentin 300 mg oral capsule 1, capsule, By Mouth, 3 times a day, # 270 capsule, Refills 5, Tot. Refills 5, 02/03/22 9:07:00 EDT, Route to Pharmacy Electronically, [facility] ([facility]), 175.3, cm, [...] Maintenance, 05/24/22 12:19:00 EST, [facility] ([facility] Partial fill upon patient request if the prescription is for a schedule II... Start Date: 05/24/22 Status: Ordered mycophenolic acid 360 mg oral delayed release tablet 2 tablet = 720 mg, By Mouth, 2 times a day Start Date: 06/22/21 Status: Ordered oxyCODONE 5 mg oral tablet 5 mg, 1, tablet, By Mouth, Every 6 hours, PRN, for 5 days, # 12 tablet, Refills 0, Tot. Refills 0, Acute 06/13/22 12:17:00 EST, Pain , Severe, 06/08/22 12:17:00 EST, Route to Pharmacy Electronically,[facility]/pharmacy #[id number], Partial fill upon patient reque... Start Date: 06/08/22 Stop Date: 06/13/22 Status: Ordered pantoprazole 40 mg oral delayed release tablet 1 tablet = 40 mg, By Mouth, 2 times a day, # 180 tablet, 1 Refills, Maintenance, 04/03/22 17:37:00 EST, 175.3, cm, 01/03/22 13:47:00 EDT, Height, 95.3, kg, 12/06/21 7:36:00 EDT, Dry Weight Start Date: 04/03/22 Status: Ordered Pen Brick, 31 G x 8 mm BD Ultra Fine III See Instructions, # 300 each, Refills 6, Tot. Refills 6, Maintenance, use as directed for Type 2 Diabetes Mellitus for 5 injections per day E11.9, 12/09/21 9:52:00 EDT, Supply, 175.3, cm, 12/06/21 7:36:00 EDT, Height, 95.3, kg, 12/06/21 7:36:00 EDT... Start Date: 12/09/21 Stop Date: 08/31/23 Status: Ordered Pen Brick, 32 G x 4 mm BD Ultra [...] Route to Pharmacy Electronically, [facility] ([facility] ), 175, cm, 05/12/22 11:49:00 [...] r) present Confirmed 06/21/05 Active BPH - [facility] Confirmed 03/14/21 Active Chronic kidney disease stage 3 Confirmed 05/17/11 Active CAD; s/p CABG 1997, [place] 2006 w/stent; heart transplant 04/30 Confirmed Active Diabetes mellitus with PVD; stents; [facility] Confirmed Active Diabetes mellitus with cataract [...] back pain Confirmed 06/15/15 Active Microscopic hematuria; [facility] Confirmed Active Neck pain [...] Confirmed 06/21/05 Active Tremor - Neurology at [facility] Confirmed 02/07/18 Active Type 2 DM with renal manifestations; [facility] Confirmed 05/04/16 Active 1EF 20-25% prior to transplant Results Orders for Microbiology Reports Name Date Blood Culture 06/05/22 Blood Culture #2 06/05/22 Microbiology Reports TEST:Blood Culture, Second Order STATUS:Unauthenticated BODY SITE: SOURCE:Blood COLLECTED DATE/TIME:06/05/22 4:18 PM Blood Culture, Second Order SPECIMEN DESCRIPTION : BLOOD NO SITE SPECIAL REQUESTS : NONE CULTURE : NO GROWTH 3 DAYS REPORT STATUS : PRELIMINARY REPORT TEST:Blood Culture STATUS:Unauthenticated BODY SITE: SOURCE:Blood COLLECTED DATE/TIME:06/05/22 2:43 PM Blood Culture SPECIMEN DESCRIPTION : BLOOD L AC SPECIAL REQUESTS : NONE CULTURE : NO GROWTH 3 DAYS REPORT STATUS : PRELIMINARY REPORT Radiology Reports * Exam Date Time Procedure Performing Provider Status 06/06/22 7:03 AM Foot Min 3 Views Right Edwina Ny; Auth (Verified) Notes: (Foot Min 3 Views Right) Reason For Exam: infection;Pain RESULT: Foot Min 3 Views Right Right foot 3 views dated June 06, 2022. No prior studies are available. HISTORY: Pain. Infection. FINDINGS: This examination shows no evidence of fracture or dislocation. There is loss of joint space in the interphalangeal joints with osteophyte formation most prominent in the great toe. A minimal plantar calcaneal bone spur is noted and minimal calcification is present at the insertion of the Achilles tendon. No radiopaque foreign body or soft tissue gas is noted. Some arterial calcifications are present. IMPRESSION: Degenerative changes. No evidence of fracture or dislocation. Examination [id number]. Thank you for allowing me to participate in the care of this patient. WSN: [id number] Ordering Physician: Karmen Paul Dictated By: Chad Ulrich MD Dictated Date/Time: 06/06/22 8:19 am Reviewed By: Chad Ulrich MD Signed By: Chad Ulrich MD Signed Date/Time: 06/06/22 8:19 am Transcribed By: MAVIS Transcribed Date/Time: 06/06/22 8:18 am * Exam Date Time Procedure Performing Provider Status 06/05/22 3:16 PM US Doppler Ext Lower Venous Right Claudia Rivera; Auth (Verified) Notes: (US Doppler Ext Lower Venous Right) Reason For Exam: Pain in limb;Other: RESULT: US Doppler Ext Lower Venous Right US Doppler Ext Lower Venous Right Hx of Present Illness: Leg pain; Reason: Other:; Pain in limb; Clinical Question(s): Thrombus COMPARISON: 05/01/2022. IMAGING TECHNIQUE: Ultrasound of the veins from the groin through the calf was performed using grayscale, color, and spectral Doppler ultrasound assessing for complete compressibility and normal flowcharacteristics. FINDINGS: Common femoral vein: Patent. No thrombosis. Femoral vein: Patent. No thrombosis. Popliteal vein: Patent. No thrombosis. Gastrocnemius veins: The visualized portions are patent without evidence of thrombosis. Peroneal veins: The visualized portions are patent without evidence of thrombosis. Posterior tibial veins: The visualized portions are patent without evidence of thrombosis. Contralateral common femoral vein: Patent. No thrombosis. OTHER FINDINGS: IMPRESSION: No evidence of deep venous thrombosis. WSN: [id number] Ordering Physician: Alan Loyola Dictated By: Levi Meza MD Dictated Date/Time: 06/05/22 3:21 pm Reviewed By: Levi Meza MD Signed By: Levi Meza MD Signed Date/Time: 06/05/22 3:21 pm Transcribed By: MAVIS Transcribed Date/Time: 06/05/22 3:20 pm * Exam Date Time Procedure Performing Provider Status 06/05/22 1:14 PM Ankle Min 3 Views Right Dolly Garcia sa; Auth (Verified) Notes: (Ankle Min 3 Views Right) Reason For Exam: Pain RESULT: Ankle Min 3 Views Right Tibia/Fibula 2 Views Right, Ankle Min 3 Views Right Hx of Present Illness: Leg pain; Reason: Pain; Clinical Question(s): Fracture COMPARISON: None. FINDINGS: No fractures or bone lesions. Visualized knee joint is normal. The ankle joints appear normal. Ankle mortise intact. No significant arthritic changes. Small enthesophyte at the quadriceps insertion on the patella. [place] along the medial knee and calf probably related to vein harvesting. Vascular calcifications. IMPRESSION: No acute fracture or malalignment. WSN: [id number] Ordering Physician: Charlotte Coates Dictated By: Mian Hudson MD Dictated Date/Time: 06/05/22 1:26 pm Reviewed By: Mian Hudson MD Signed By: Mian Hudson MD Signed Date/Time: 06/05/22 1:26 pm Transcribed By: MAVIS Transcribed Date/Time: 06/05/22 1:23 pm * Exam Date Time Procedure Performing Provider Status 06/05/22 1:14 PM Tibia/Fibula 2 Views Right Jose , Me barbie; Auth (Verified) Notes: (Tibia/Fibula 2 Views Right) Reason For Exam: Pain RESULT: Tibia/Fibula 2 Views Right Tibia/Fibula 2 Views Right, Ankle Min 3 Views Right Hx of Present Illness: Leg pain; Reason: Pain; Clinical Question(s): Fracture COMPARISON: None. FINDINGS: No fractures or bone lesions. Visualized knee joint is normal. The ankle joints appear normal. Ankle mortise intact. No significant arthritic changes. Small enthesophyte at the quadriceps insertion on the patella. [place] along the medial knee and calf probably related to vein harvesting. Vascular calcifications. IMPRESSION: No acute fracture or malalignment. WSN: [id number] Ordering Physician: Charlotte Coates Dictated By: Mian Hudson MD Dictated Date/Time: 06/05/22 1:26 pm Reviewed By: Mian Hudson MD Signed By: Mian Hudson MD Signed Date/Time: 06/05/22 1:26 pm Transcribed By: MAVIS Transcribed Date/Time: 06/05/22 1:23 pm * Exam Date Time Procedure Performing Provider Status 06/05/22 1:14 PM Chest 2 Views Frontal and Lat Jose , Claudia; Auth (Verified) Notes: (Chest 2 Views Frontal and Lat) Reason For Exam: Chest Pain;Other: RESULT: Chest 2 Views Frontal and Lat Chest 2 Views Frontal and Lat Hx of Present Illness: Leg pain; Reason: Other:; Chest Pain; Clinical Question(s): Other: COMPARISON: 05/02/2022 chest radiograph. FINDINGS: LINES AND TUBES: None. LUNGS AND PLEURA: Clear lungs. Normal pulmonary vascularity. No pleural effusion. No pneumothorax. HEART, MEDIASTINUM AND AIDA: Heart is normal in size. Normal mediastinal and hilar contour. Prior CABG. BONES AND SOFT TISSUES: No acute abnormality. Prior median sternotomy. IMPRESSION: No acute abnormality. WSN: [id number] Ordering Physician: Charlotte Coates Dictated By: Mian Hudson MD Dictated Date/Time: 06/05/22 1:23 pm Reviewed By: Mian Hudson MD Signed By: Mian Hudson MD Signed Date/Time: 06/05/22 1:23 pm Transcribed By: MAVIS Transcribed Date/Time: 06/05/22 1:21 pm Vital Signs Most recent to oldest [Reference Range]: 1 2 3 Height 176 cm (06/08/22 12:04 PM) 176 cm (06/08/22 8:12 AM) 176 cm (06/08/22 4:50 AM) Oxygen Saturation [94-100 %] 100 % (06/08/22 12:04 PM) 100 % (06/08/22 8:12 AM) 96 % (06/08/22 4:50 AM) Pulse Rate [55-90 bpm] 94 bpm *H* (06/08/22 12:04 PM) 86 bpm (06/08/22 8:12 AM) 79 bpm (06/08/22 4:50 AM) Blood Pressure [90-138/55-84 mm Hg] 145/93mm Hg *H* (06/08/22 12:04 PM) 163/93mm Hg *H* (06/08/22 8:37 AM) 163/93mm Hg *H* (06/08/22 8:12 AM) Respiratory Rate [16-30 br/min] 18 br/min (06/08/22 12:04 PM) 18 br/min (06/08/22 8:36 AM) 18 br/min (06/08/22 8:12 AM) Temperature [96.8-100.4 DegF] 97.9 DegF (06/08/22 12:04 PM) 97.4 DegF (06/08/22 8:12 AM) 97.5 DegF (06/08/22 4:50 AM) Mode of Delivery (Oxygen) Room air (06/08/22 12:04 PM) Room air (06/08/22 8:12 AM) Room air (06/08/22 4:50 AM) Blood pressure sites Arm, right (06/08/22 12:04 PM) Arm, right (06/08/22 8:12 AM) Arm, left (06/08/22 4:50 AM) Temperature Route Oral (06/08/22 12:04 PM) Oral (06/08/22 8:12 AM) Oral (06/08/22 4:50 AM) Social History Social History Type Response Smoking Status Former smoker, quit more than 30 days ago entered on: 06/01/21 Sex Admission evaluation note * Steffen Cerda MD D: PERFORM, MODIFY Event Display: Admission Note Authored Date: Patient: ??REJI BATEMAN ? Age:??71 Years?Sex:??Male?:??1950?? History of Present Illness 71 year old gentleman with history of type 2 DM, hyperparathyroidism, CAD s/p CABG, heart transplant in 2013??on chronic immunosuppressive therapy, chronic kidney disease stage 3,??type 2 diabetes insulin-dependent, peripheral neuropathy, ARNULFO, hypercholesterolemia??recent hospitalization and discharge in May 03, 2022 for right lower extremity cellulitis on p.o. antibiotics??presented back to the ED at [facility] with chief complaint of right lower extremity swelling and redness??for last 2 days. As per patient he was in his usual state of health until??Monday evening when he noticed some swelling??of the right lower extremity which got worse on Monday morning along with some redness??and warmth, he has??right??foot heel ulcer/blister which opened up??4 to 5 weeks ago and he is following up with wound care center at [facility]??every week and his last appointment was 1??week ago on Monday.?? He denied any fever,??generalized weakness. In the ED patient was found to have redness and swelling of the right lower extremity underwent Ultrasound of the right lower extremity??which was negative for any DVT, x-ray of the right foot revealed no evidence of any underlying fracture or??bony erosions.?? Patient was given 1 dose of IV vancomycin and hospitalist team was called for further management. Review of Systems No complains of headache, dizziness, rhinorrhea, cold, congestion, no complaints of any??chest pain, palpitations or shortness of breath,??no abdominal pain nausea vomiting, no dysuria urgency frequency or diarrhea,??complains of redness and swelling of the right lower extremity without any abnormal discharge, rest review of other systems are negative. Objective Vital Signs?? Temperature: 98.1 DegF (06/06/22 11:52:00) Temperature Route: Oral (06/06/22 11:52:00) Pulse Rate:??95 bpm??High (06/06/22 11:52:00) Respiratory Rate: 18 br/min (06/06/22 11:52:00) Systolic Blood Pressure: 137 mm Hg (06/06/22 11:52:00) Diastolic Blood Pressure: 78 mm Hg (06/06/22 11:52:00) Blood pressure sites: Arm, left (06/06/22 11:52:00) Mean Arterial Pressure: 98 mm Hg (06/06/22 11:52:00) Pulse Pressure: 59 mm Hg (06/06/22 11:52:00) Oxygen Saturation: 97 % (06/06/22 11:52:00) Mode of Delivery (Oxygen): Room air (06/06/22 11:52:00) Early Warning Score: 3 (06/06/22 11:53:09) ? [place] Coma Scale [place] Coma Score: 15 (06/05/22 12:06:00) Motor Response-Adult: Obeys commands (06/05/22 12:06:00) Response Eye Opening: Spontaneously (06/05/22 12:06:00) Verbal Response-Adult: Oriented and converses (06/05/22 12:06:00) ? Physical Exam General/SLEEVE BOTTOM FELLER: Awake, alert, oriented to time, place, person, following commands, not in any acute distress, sustained bilateral upper and lower extremity 5/5, sensations are intact HEENT: Moist oral nasal mucosa, no pallor, no icterus, no JVD CVs: S1-S2 present, regular rate and rhythm, no murmurs Chest:??Bilateral air entry present, clear to auscultation, no wheeze, no rhonchi Abdomen: Soft, nontender, nondistended, no organomegaly, bowel sounds are present Extremity/skin:??1-2 positive pitting edema present right lower extremity, 1 positive pitting edemaleft lower extremity, redness??and warmth to touch of the right lower extremity, right foot heel ulcer??with some discharge is present Assessment/Plan ?? 71 year old gentleman with history of type 2 DM, hyperparathyroidism, CAD s/p CABG, heart transplant in 2013??on chronic immunosuppressive therapy, chronic kidney disease stage 3,??type 2 diabetes insulin-dependent, peripheral neuropathy, ARNULFO, hypercholesterolemia??recent hospitalization and discharge in May 03, 2022 for right lower extremity cellulitis on p.o. antibiotics??presented back to the ED at [facility] with chief complaint of right lower extremity swelling and redness: ?? Problem list: ??? Right lower extremity cellulitis without abscess??or sepsis ??? Right heel ulcer ?Elevated troponin/NSTEMI type II/demand ischemia myocardium ?History of coronary artery status post CABG and heart transplant in 2013 currently on chronic immunosuppressive therapy ??? History of chronic kidney disease stage III ?History of type 2 diabetes insulin-dependent ??? History of peripheral neuropathy ?History of hyperparathyroidism ??? History of ARNULFO ??? History of hyperlipidemia ?? Management plan: 1.?? Right lower extremity cellulitis: ??? No signs of any sepsis ?Right lower extremity ultrasound ruled out any evidence of DVT ?Patient is otherwise functional at baseline ?Patient has right heel ulcer??which initially started as a blister??and opened approximately 4to 5 weeks ago and is following up with??wound care center at [facility], the likely etiology of the patient recurrent cellulitis??is??this open ulcer ?Patient received??dose of vancomycin as well as Zosyn ?During recent hospitalization patient was treated with IV Ancef and was discharged on p.o. Keflex??so we will treat the patient again with IV Ancef for now ??? I told the patient that??there is no signs of any systemic infection??surface swelling and redness is getting better tomorrow he can be switched to p.o. Keflex for 7-day course of antibiotics andcan be discharged home ??? I will also place the wound care consultation, he needs close follow-up with wound care clinic at??[facility] for better wound care management??to avoid any recurrent cellulitis ???Patient also has right lower extremity swelling to positive??he otherwise does not appears to bein any congestive heart failure exacerbation no JVD??S1 positive pitting edema of left lower extremity currently patient is not on any diuretics??I will leave the decision on primary cardiology team??to recommend??further diuresis ?? 2.?? Elevated troponin/demand??ischemia myocardium: This patient denies any chest pain ??? Patient also has elevated proBNP??and lower extremity edema but does not have elevated JVP though hard to assess in the setting of morbid obesity ?I will leave the decision of starting the patient on diuretics with the cardiology??3. ??Chronic kidney disease stage III: ??? Kidney functions are currently stable ?? 3. ??History of type 2 diabetes insulin-dependent: As per patient he takes insulin Toujeo 50 units twice a day along with sliding scale insulin at home ???Continue insulin Levemir 50 units twice daily for now, current fingerstick is running around 350s ?? 4.?? History of peripheral neuropathy: ??? Continue??gabapentin 300 mg 3 times daily ?? 5. ??History of??coronary artery status post CABG and heart transplant in 2014: ??? Continue the patient on home??dose of prednisone, mycophenolate??and tacrolimus ?? 6.?? History of??essential hypertension: ??? Patient is on amlodipine 5 mg daily ?It should be considered to be discontinued as patient has lower extremity edema ?? 7. ??DVT prophylaxis:??Heparin subcutaneous ?? Full code ?? Low-sodium carbohydrate consistent diet ?? Place under observation ?? Total time spent in the care of patient is more than 75 minutes, more??than 50% of the time was spent [id number] with the patient.?? Plan was thoroughly explained to the patient and he agrees with it. Histories Allergies Allergies ?(Active and Proposed Allergies Only) lisinopril? (Severity: Unknown severity, Onset: Unknown) ? 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 INH Headache Heart transplant status History of depression History of SCC in situ; [facility] History of venous thrombosis - R IJ complete, partial on L; AC x3mo Hyperparathyroidism Immunosuppressed status Insomnia Ischemic cardiomyopathy Left foot drop Leukopenia Low back pain Microscopic hematuria; [facility] Neck pain Neuropathy due to diabetes mellitus Obese class I Obstructive sleep apnea syndrome Osteopenia - minimal, on DXA 08/01 Peripheral neuropathy Presbyesophagus Pure hypercholesterolemia Tremor - Neurology at [facility] Type 2 DM with renal manifestations; [facility] ? Social History Alcohol Details:??Use: Never. Details:??Use: Past. Employment/School Details:??Status: Retired. Home/Environment Details:??Living situation: Home/Independent. ??Lives with: Spouse. Nutrition/Health Details:??Diet: Regular. Sexual Details:??Gender identity: Identifies as male. Substance Abuse Details:??Use: Never. Tobacco Details:??Use: Former smoker, quit more than 30 days ago. Details:??Former smoker, Tobacco user in household: No. ??Other: Quit 1997. Electronic Cigarette/Vaping Details:??Electronic Cigarette Use: Never. ? Psychosocial History ? Family History Mother (): Cancer; Cataract; Macular degeneration of both eyes Father (): Cancer Brother: Cancer of prostate ? Medications Home Medications Acetaminophen/Butalbital/Caffeine (Fioricet oral capsule)?1?capsule?By Mouth?Every 6 hours?as needed?Headache Amlodipine (amLODIPine 5 mg oral tablet)?5?Milligram?1?tablet?By Mouth?Daily Aspirin (aspirin 81 mg oral delayed release tablet)?81?Milligram?1?tablet?By Mouth?Daily?for 30?Days Duloxetine (duloxetine 20 mg oral enteric coated capsule)?1?capsule?20?Milligram?By Mouth?2 times a day Durable Medical Equipment (Freestyle Nona Monitor)?See Instructions?Use with Freestyle 14 day Sensor to monitor Blood Glucose. ??E11.65 Durable Medical Equipment (Pen Brick, 31 G x 8 mm BD Ultra Fine III)?See Instructions?for 90?Days?use as directed for Type 2 Diabetes Mellitus for 5 injections per dayE11.9 Durable Medical Equipment (Freestyle Nona Sensor)?See Instructions?e11.65, use with freestyle nona 14 day reader for frequent glucose monitoring, change every 14 days, 28 day supply Gabapentin (gabapentin 300 mg oral capsule)?1?capsule?By Mouth?3 times a day insulin degludec (insulin degludec (concentrated) 200 units/mL subcutaneous solution)?See Instructions?42 units in the AM and 52 units in the PM 90 days supply Insulin Lispro (HumaLOG Cartridge 100 units/mL injectable solution)?See Instructions?Insert cartridge into Inpen device, inject 16 units subq 3x a day with meals, Max daily dose 48 units, E11.65 Insulin Lispro (Humalog Kwik Pen 100 units/mL subcutaneous injection)?See Instructions?e11.65, use as back up to failed inpen device. following sliding scale, up to 16 units subcutaneously three times a day with meals. max daily dose 48 units Mycophenolate Sodium (mycophenolic acid 360 mg oral delayed release tablet)?2?tab(s)?720?Milligram?By Mouth?2 times a day Pantoprazole (pantoprazole 40 mg oral delayed release tablet)?1?tab(s)?40?Milligram?By Mouth?2 times a day PredniSONE (predniSONE 5 mg oral tablet)?1?tab(s)?5?Milligram?By Mouth?Daily Rosuvastatin (rosuvastatin 20 mg oral tablet)?1?tab(s)?20?Milligram?By Mouth?Daily Tacrolimus (tacrolimus 1 mg oral capsule)?2.5?capsule?2.5?Milligram?By Mouth?2 times a day?3 in the AM & 3 in the Evening Trazodone (traZODone 100 mg oral tablet)?200?Milligram?2?tablet?By Mouth?Daily atbedtime?as needed?Insomnia ? Inpatient Medications Medications (11) Active SCHEDULED: (3) Insulin Lispro 100 units/mL Inj (3mL) (Insulin LISPRO Sliding Scale) ??2-10 units, Subcutaneous Injection, 3 times a day before meals NaCl 0.9% Flush 3ml (NaCL 0.9% Flush) ??3 mL, IV Push, Every 8 hours Vancomycin 1500 mg Inj (Vancomycin IVPB) ??1,500 mg, IVPB, Every 24 hours CONTINUOUS: (0) PRN: (8) Acetaminophen 325 mg Tablet (Acetaminophen Tablet) ??650 mg, By Mouth, Every 4 hours Dextromethorphan-Guaifenesin 20 mg-200 mg/10 mL Liqu UD (Robitussin DM Liquid) ??10 mL, By Mouth, Every 4 hours Melatonin 3 mg Tablet (Melatonin Tablet) ??3 mg, By Mouth, Daily at bedtime MorPHINE 4 mg Inj Syringe (MorPHINE Inj) ??4 mg, IV Push Slowly, Every 4 hours NaCl 0.9% Flush 3ml (NaCL 0.9% Flush) ??3 mL, IV Push, Every 8 hours Polyethylene Glycol 17 Gm Powder (MiraLax Powder) ??17 Gm 1 pack/packet, By Mouth, Daily Senna 8.6 mg / Docusate 50 mg tablet (Docusate/Senna Tablet) ??1 tablet, By Mouth, 2 times a day Simethicone 80 mg Chewable Tablet (Simethicone Tablet) ??80 mg, Chew, 3 times a day ? 72 Hour Antibiotic History Stopped Antibiotics Stop Date/Time Last Administered First Administered Piperacillin-Tazobactam??3.375 Gm, 25 mL/hr, IVPB, Once 06/06/2022 06:01 06/06/2022 06:00 06/06/2022 06:00 Vancomycin??1,500 mg, 166.67 mL/hr, IVPB, Once 06/05/2022 16:11 06/05/2022 16:11 06/05/2022 16:11 ? Vaccinations and Immunoprophylaxis Hepatitis A Adult Vaccine: 1 Unknown (03/27/12 07:00:00) hepatitis B adult vaccine: 1 Unknown (03/27/12 07:00:00) influenza virus vaccine, inactivated: 0.5 Unknown (01/07/21 08:00:00) influenza virus vaccine, inactivated: 0 Unknown (01/13/20 08:00:00) influenza virus vaccine, inactivated: 0.5 Unknown (02/06/19 08:00:00) influenza virus vaccine, inactivated: 0.5 Unknown (01/14/16 08:00:00) influenza virus vaccine, inactivated: 0.5 Unknown (12/31/14 08:00:00) influenza virus vaccine, inactivated: 0 Unknown (02/12/14 00:00:00) influenza virus vaccine, inactivated: 0.5 Unknown (01/24/14 08:00:00) influenza virus vaccine, inactivated: 0.5 Unknown (03/27/12 07:00:00) influenza virus vaccine, inactivated: 0.5 Unknown (05/04/11 07:00:00) influenza virus vaccine, inactivated: 0.5 Unknown (01/22/10 08:00:00) influenza virus vaccine, inactivated: 0.5 mL (01/17/10 08:50:00) influenza virus vaccine, inactivated: 0.5 mL (02/21/08 09:58:00) influenza virus vaccine, inactivated: 0.5 Unknown (01/22/07 08:00:00) influenza virus vaccine, inactivated: 0.5 Unknown (03/07/06 07:00:00) pneumococcal 23-valent vaccine: 0.5 Unknown (01/24/12 08:00:00) pneumococcal 23-valent vaccine: 0 Unknown (03/02/04 07:00:00) SARS-CoV-2 (COVID-19) mRNA BNT-162b2 vac: 0.3 Unknown (01/15/21 08:00:00) SARS-CoV-2 (COVID-19) mRNA BNT-162b2 vac: 0.3 Unknown (06/13/20 07:00:00) SARS-CoV-2 (COVID-19) mRNA BNT-162b2 vac: 0.3 Unknown (05/17/20 07:00:00) SARS-CoV-2 mRNA (sesipnr-aupo-ryczf) vax: 0.3 Unknown (07/18/21 08:00:00) tetanus/diphtheria/pertussis, acel(Tdap): 0.5 Unknown (03/27/12 07:00:00) tetanus-diphtheria toxoids (Td): 0 Unknown (08/31/04 08:00:00) Influenza Inactive (IM) (oldterm): 0.5 mL (02/17/05 10:49:00) Influenza Virus Vaccine (oldterm): 0.5 mL (01/24/06 10:20:00) Pneumococcal Vacc (oldterm): 0.5 % of Normal (07/14/04 10:20:00) ? Durable Medical Equipment Discharge Medical Equipment Companies: Franny cameron (06/08/21) Name of Agency #1: [facility] (06/08/21) Agency Casing Cleaner #1: intake (06/08/21) Service Categories #1: Occupational Therapy, Physical Therapy, Long-Term, Other: lab draw (06/08/21) Service Comments #1: Patient is active with [facility]. [facility] will call to schedule a home visit; if you dont hear from them please call them directly (06/08/21) [facility] (06/08/21) Service Categories #2: Walker (06/08/21) Service Comments #2: [employer] has provided walker. (06/08/21) Ambulatory devices needed: Cane, Walker (06/06/22) ? Results Recent Labs BLOOD COUNT & DIFF WBC 8.2 k/mm3 ()?? 06/05/2022 12:18 RBC 4.34 m/mm3 (Low)?? 06/05/2022 12:18 Hgb 12.0 Gm/dL (Low)?? 06/05/2022 12:18 Hct 38.4 % (Low)?? 06/05/2022 12:18 MCV 88.5 femtoliters ()?? 06/05/2022 12:18 MCH 27.6 pg ()?? 06/05/2022 12:18 MCHC 31.3 g/dL (Low)?? 06/05/2022 12:18 Platelet Count 108 k/mm3 (Low)?? 06/05/2022 12:18 RDW-SD 52.1 femtoliters (High)?? 06/05/2022 12:18 MPV 9.5 femtoliters ()?? 06/05/2022 12:18 Nucleated RBC (Automated) 0.0 #/100 WBC'S ()?? 06/05/2022 12:18 Abs. NRBC 0.0 k/mm3 ()?? 06/05/2022 12:18 Abs. Neut 7.4 k/mm3 (High)?? 06/05/2022 12:18 Abs. Lymph 0.3 k/mm3 (Low)?? 06/05/2022 12:18 Abs. Nelson 0.4 k/mm3 ()?? 06/05/2022 12:18 Abs. Eo 0.1 k/mm3 ()?? 06/05/2022 12:18 Abs. Baso 0.0 k/mm3 ()?? 06/05/2022 12:18 Neut % 90.0 % (High)?? 06/05/2022 12:18 Lymph % 3.2 % (Low)?? 06/05/2022 12:18 Nelson % 4.7 % ()?? 06/05/2022 12:18 Eos % 1.5 % ()?? 06/05/2022 12:18 Baso % 0.1 % ()?? 06/05/2022 12:18 Imm Gran 0.5 % ()?? 06/05/2022 12:18 Abs. Imm Gran 0.0 k/mm3 ()?? 06/05/2022 12:18 ?? CARDIAC Nt-Probnp 914 pg/mL (High)?? 06/05/2022 12:18 High Sensitivity Troponin (HSTnT) 52 ng/L (High)?? 06/05/2022 14:14 ?? CHEM GENERAL Sodium 140 mmol/L ()?? 06/05/2022 12:18 Potassium 4.3 mmol/L ()?? 06/05/2022 12:18 Chloride 101 mmol/L ()?? 06/05/2022 12:18 Bicarbonate Level 30 mmol/L (High)?? 06/05/2022 12:18 Anion Gap 9 ()?? 06/05/2022 12:18 Glucose Level 290 mg/dL (High)?? 06/05/2022 12:18 Glucose, POC 232 mg/dL (High)?? 06/06/2022 08:26 BUN 19 mg/dL ()?? 06/05/2022 12:18 Creatinine-Blood 1.3 mg/dL (High)?? 06/05/2022 12:18 Estimated GFR Creatinine 61 ML/MIN/1.73 M2 ()?? 06/05/2022 12:18 Calcium 8.1 mg/dL (Low)?? 06/05/2022 12:18 ?? COAG D-Dimer 0.44 mg/L FEU ()?? 06/05/2022 14:43 ?? HEME OTHER Hold Blue Top SPECIMEN DISCARDED AFTER 4 HOURS. ()?? 06/05/2022 12:18 ?? VIROLOGY COVID-19 POC Result NEGATIVE ()?? 06/05/2022 11:55 ? Abnormal Labs ?? BLOOD COUNT & DIFF ??Abs. Imm Gran ??0.0 k/mm3 () ??06/05/2022 12:18 ??Abs. Lymph ??0.3 k/mm3 (Low) ??06/05/2022 12:18 ??Abs. NRBC ??0.0 k/mm3 () ??06/05/2022 12:18 ??Abs. Neut ??7.4 k/mm3 (High) ??06/05/2022 12:18 ??Hct ??38.4 % (Low) ??06/05/2022 12:18 ??Hgb ??12.0 Gm/dL (Low) ??06/05/2022 12:18 ??Imm Gran ??0.5 % () ??06/05/2022 12:18 ??Lymph % ??3.2 % (Low) ??06/05/2022 12:18 ??MCHC ??31.3 g/dL (Low) ??06/05/2022 12:18 ??Neut % ??90.0 % (High) ??06/05/2022 12:18 ??Nucleated RBC (Automated) ??0.0 #/100 WBC'S () ??06/05/2022 12:18 ??Platelet Count ??108 k/mm3 (Low) ??06/05/2022 12:18 ??RBC ??4.34 m/mm3 (Low) ??06/05/2022 12:18 ??RDW-SD ??52.1 femtoliters (High) ??06/05/2022 12:18 ? CARDIAC ??High Sensitivity Troponin (HSTnT) ??52 ng/L (High) ??06/05/2022 14:14 ??Nt-Probnp ??914 pg/mL (High) ??06/05/2022 12:18 ? CHEM GENERAL ??Bicarbonate Level ??30 mmol/L (High) ??06/05/2022 12:18 ??Calcium ??8.1 mg/dL (Low) ??06/05/2022 12:18 ??Creatinine-Blood ??1.3 mg/dL (High) ??06/05/2022 12:18 ??Estimated GFR Creatinine ??61 ML/MIN/1.73 M2 () ??06/05/2022 12:18 ??Glucose Level ??290 mg/dL (High) ??06/05/2022 12:18 ??Glucose, POC ??232 mg/dL (High) ??06/06/2022 08:26 ? COAG ??D-Dimer ??0.44 mg/L FEU () ??06/05/2022 14:43 ? HEME OTHER ??Hold Blue Top ??SPECIMEN DISCARDED AFTER 4 HOURS. () ??06/05/2022 12:18 ? Note: Critical results are displayed in red. ? Blood Glucose Trend Glucose Level:??290 mg/dL??High (06/05/22 12:18:00) Glucose, POC:??232 mg/dL??High (06/06/22 08:26:00) ? CBC, CBC w/Diff?? CBC?? Differential?? WBC: 8.2 k/mm3 (12:18) Abs. Neut:??7.4 k/mm3??High (12:18) RBC:??4.34 m/mm3??Low (12:18) Abs. Lymph:??0.3 k/mm3??Low (12:18) Hct:??38.4 %??Low (12:18) Abs. Nelson: 0.4 k/mm3 (12:18) RDW-SD:??52.1 femtoliters??High (12:18) Abs. Eo: 0.1 k/mm3 (12:18) Nucleated RBC (Automated): 0 #/100 WBC'S (12:18) Abs. Baso: 0 k/mm3 (12:18) Abs. NRBC: 0 k/mm3 (12:18) Neut %:??90 %??High (12:18) ?? Lymph %:??3.2 %??Low (12:18) ?? Nelson %: 4.7 % (12:18) ?? Eos %: 1.5 % (12:18) ?? Baso %: 0.1 % (12:18) ?? Imm Gran: 0.5 % (12:18) ?? Abs. Imm Gran: 0 k/mm3 (12:18) ? BMP, Mg, and Phos Anion Gap: 9 (12:18) Bicarbonate Level:??30 mmol/L??High (12:18) BUN: 19 mg/dL (12:18) Calcium:??8.1 mg/dL??Low (12:18) Chloride: 101 mmol/L (12:18) Creatinine-Blood:??1.3 mg/dL??High (12:18) Estimated GFR Creatinine: 61 ML/MIN/1.73 M2 (12:18) Glucose Level:??290 mg/dL??High (12:18) Potassium: 4.3 mmol/L (12:18) Sodium: 140 mmol/L (12:18) ?? Coagulation Profile D-Dimer: 0.44 mg/L FEU (14:43) ?? LFT?? No qualifying data available. ?? Urinalysis?? No qualifying data available. ? Cardiology Labs Nt-Probnp:??914 pg/mL??High (06/05/22 12:18:00) High Sensitivity Troponin (HSTnT):??52 ng/L??High (06/05/22 14:14:00) High Sensitivity Troponin (HSTnT):??61 ng/L??Critical (06/05/22 12:18:00) ?? Blood Gases?? No qualifying data available. ?? Uric/LDH?? No qualifying data available. ? Hospital Progress note * Sylvester Coles RN: PERFORM, SIGN, VERIFY Event Display: Progress Note Hospital Authored Date: [id number] Patient: REJI BATEMAN Age: 71 years Sex: Male : 1950 Associated Diagnoses: None Author: Sylvester Coles RN Findings Narrative/Incidental A/Ox3, VSS, ambulates with walker, c/o pain in his RLE, morphine was given x1 with good effect. CDIdressing in his right heel, otherwise pt has no other complaint, safety measures maintained, will continue to monitor.. * Sarah Florez MD: PERFORM Event Display: Progress Note Hospital Authored Date: [id number] Patient: ??REJI BATEMAN ? Age:??71 Years?Sex:??Male?:??1950?? Subjective The patient was seen and examined today. He stated that right leg pain is better today but he continues to have redness and leg swelling. Denies any chest pain but he has chronic SOB on exertion. No nausea, vomiting or abdominal pain. Review of Systems ROS as noted in the subjective. Objective ?? Physical Exam General Appearance: Pleasant, adult male. NAD. Cardiovascular: RRR S1 and S2 heard with no M/R/G. Respiratory: ??Breath sounds clear to auscultation bilaterally. No wheezing or crackles. GI: Soft. Nontender and nondistended. BS are present. MS:?Redness present in bilateral LE. Right leg is more swollen than the left. Neuro: ??No slurred speech. ??Patient seen moving their upper and lower extremities independently. Psych: Alert and oriented x3. Appropriate and pleasant. Lines: Peripheral IV in place.?? _ Inpatient Medications Medications (23) Active SCHEDULED: (14) Amlodipine 5 mg Tablet (amLODIPine 5 mg oral tablet) ??5 mg, By Mouth, Daily Aspirin 81 mg EC Tablet (aspirin 81 mg oral delayed release tablet) ??81 mg, By Mouth, Daily CeFAZolin 2 Gm Inj (ceFAZolin IVPB) ??2 Gm, IV Push, Every 8 hours Duloxetine 20 mg Capsule (DULoxetine Capsule) ??20 mg, By Mouth, 2 times a day Fludrocortisone 0.1 mg Tablet (fludrocortisone 0.1 mg oral tablet) ??0.1 mg, By Mouth, Daily Gabapentin 300 mg Capsule (gabapentin 300 mg oral capsule) ??300 mg, By Mouth, 3 times a day Insulin Detemir 100 units/mL Inj (Levemir Inj) ??50 units 0.5 mL, Subcutaneous Injection, 2 times aday Insulin Lispro 100 units/mL Inj (3mL) (Insulin LISPRO Scale) ??3-15 units, Subcutaneous Injection, 3 times a day before meals Mycophenolate Sodium 360 mg ER Tablet (mycophenolic acid 360 mg oral delayed release tablet) ??720 mg, By Mouth, 2 times a day NaCl 0.9% Flush 3ml (NaCL 0.9% Flush) ??3 mL, IV Push, Every 8 hours Pantoprazole 40 mg EC Tablet (pantoprazole 40 mg oral delayed release tablet) ??40 mg, By Mouth, Daily PredniSONE 5 mg Tablet (predniSONE 5 mg oral tablet) ??5 mg, By Mouth, Daily Rosuvastatin 20 mg Tablet (rosuvastatin 20 mg oral tablet) ??20 mg, By Mouth, Daily Tacrolimus 0.5 mg Capsule (Tacrolimus) ??2.5 mg, By Mouth, 2 times a day CONTINUOUS: (0) PRN: (9) Acetaminophen 325 mg Tablet (Acetaminophen Tablet) ??650 mg, By Mouth, Every 4 hours Dextromethorphan-Guaifenesin 20 mg-200 mg/10 mL Liqu UD (Robitussin DM Liquid) ??10 mL, By Mouth, Every 4 hours Melatonin 3 mg Tablet (Melatonin Tablet) ??3 mg, By Mouth, Daily at bedtime MorPHINE 4 mg Inj Syringe (MorPHINE Inj) ??4 mg, IV Push Slowly, Every 4 hours NaCl 0.9% Flush 3ml (NaCL 0.9% Flush) ??3 mL, IV Push, Every 8 hours Polyethylene Glycol 17 Gm Powder (MiraLax Powder) ??17 Gm 1 pack/packet, By Mouth, Daily Senna 8.6 mg / Docusate 50 mg tablet (Docusate/Senna Tablet) ??1 tablet, By Mouth, 2 times a day Simethicone 80 mg Chewable Tablet (Simethicone Tablet) ??80 mg, Chew, 3 times a day Trazodone 50 mg Tablet (traZODone 50 mg oral tablet) ??200 mg, By Mouth, Daily at bedtime ? 72 Hour Antibiotic History Active Antibiotics Calendar Day Last Administered First Administered ceFAZolin??2 Gm, IV Push, Every 8 hours ?1 06/07/2022 08:18 06/07/2022 08:18 ? Stopped Antibiotics Stop Date/Time Last Administered First Administered Piperacillin-Tazobactam??3.375 Gm, 25 mL/hr, IVPB, Once 06/06/2022 06:01 06/06/2022 06:00 06/06/2022 06:00 Vancomycin??1,500 mg, 166.67 mL/hr, IVPB, Once 06/05/2022 16:11 06/05/2022 16:11 06/05/2022 16:11 ? Assessment/Plan ?? 71 year old gentleman with history of type 2 DM, hyperparathyroidism, CAD s/p CABG, heart transplant in 2013??on chronic immunosuppressive therapy, chronic kidney disease stage 3,??type 2 diabetes insulin-dependent, peripheral neuropathy, ARNULFO, hypercholesterolemia??recent hospitalization and discharge in May 03, 2022 for right lower extremity cellulitis on p.o. antibiotics??presented back to the ED at [facility] with chief complaint of right lower extremity swelling and redness: ?? Right lower extremity cellulitis: -??No signs of any sepsis -??Right lower extremity ultrasound ruled out any evidence of DVT -??Patient is otherwise functional at baseline -??Patient has right heel ulcer??which initially started as a blister??and opened approximately 4 to 5 weeks ago and is following up with??wound care center at [facility], the likely etiology of the patient recurrent cellulitis??is??this open ulcer -??Patient received??dose of vancomycin as well as Zosyn - During recent hospitalization patient was treated with IV Ancef and was discharged on p.o. Keflex??so we will treat the patient again with IV Ancef for now - 06/07: RLE pain is improving but still has swelling and redness - Plan: Will give 1 dose of IV Lasix 20 mg today (but will likely leave decision for further oral diuresis to primary veneer layer/transplant team. He has an appointment next week) Continue IV cefazolin (Day 2) ?? Elevated troponin/demand??ischemia myocardium: - This patient denies any chest pain - HS troponin 61->52 -??Patient also has elevated proBNP??and lower extremity edema but does not have elevated JVP though hard to assess in the setting of morbid obesity -??Kidney functions are currently stable Will give 1 dose of IV Lasix 20 mg today (but will likely leave decision for further oral diuresis to primary veneer layer/transplant team. He has an appointment next week) ?? History of type 2 diabetes insulin-dependent: - As per patient he takes insulin Toujeo 50 units twice a day along with sliding scale insulin at home Continue insulin Levemir 50 units twice daily for now ?? History of peripheral neuropathy: Continue??gabapentin 300 mg 3 times daily ?? History of??coronary artery status post CABG and heart transplant in 2014: Continue the patient on home??dose of prednisone, mycophenolate??and tacrolimus ?? History of??essential hypertension: - Patient is on amlodipine 5 mg daily (recently started) - May need to increase BP meds if BP continues to be high, but might need to consider an alternative BP meds with LE edema ?? Miscellaneous DVT prophylaxis:??Heparin subcutaneous Code: Full Diet: Low-sodium carbohydrate consistent diet ?? OMN: Pending improvement in RLE swelling. Note * Sarah Florez MD: PERFORM, MODIFY Event Display: Discharge/Transfer Note Hospital Authored Date: [id number] Patient: ??REJI BATEMAN ? Age:??71 Years?Sex:??Male?:??1950?? Patient Information Discharge Location: [facility] Primary Care Physician: Dung Chen MD Admit Date/Time: 06/07/22 13:35 Discharge Disposition Discharge Disposition: Home: No Services Discharge Diagnosis Right lower extremity cellulitis Elevated troponin/demand??ischemia myocardium History of type 2 diabetes insulin-dependent History of peripheral neuropathy History of??coronary artery status post CABG and heart transplant in 2014 History of??essential hypertension _ Discharge Medications Acetaminophen/Butalbital/Caffeine (Fioricet oral capsule)?1?capsule?By Mouth?Every 6 hours?as needed?Headache Amlodipine (amLODIPine 5 mg oral tablet)?5?Milligram?1?tablet?By Mouth?Daily Aspirin (aspirin 81 mg oral delayed release tablet)?81?Milligram?1?tablet?By Mouth?Daily?for 30?Days Cephalexin (cephalexin monohydrate 500 mg oral capsule)?1?capsule?500?Milligram?By Mouth?4 times a day?for 6?Days Cholecalciferol (Vitamin D3 50,000 intl units oral capsule)?1?capsule?1,250?Microgram?By Mouth?Every week?for 8?week(s) Duloxetine (duloxetine 20 mg oral enteric coated capsule)?1?capsule?20?Milligram?By Mouth?2 times a day Durable Medical Equipment (Freestyle Nona Monitor)?See Instructions?Use with Freestyle 14 day Sensor to monitor Blood Glucose. ??E11.65 Durable Medical Equipment (Pen Brick, 31 G x 8 mm BD Ultra Fine III)?See Instructions?for 90?Days?use as directed for Type 2 Diabetes Mellitus for 5 injections per dayE11.9 Durable Medical Equipment (Freestyle Nona Sensor)?See Instructions?e11.65, use with freestyle nona 14 day reader for frequent glucose monitoring, change every 14 days, 28 day supply Gabapentin (gabapentin 300 mg oral capsule)?1?capsule?By Mouth?3 times a day insulin degludec (insulin degludec (concentrated) 200 units/mL subcutaneous solution)?See Instructions?42 units in the AM and 52 units in the PM 90 days supply Insulin Lispro (Humalog Kwik Pen 100 units/mL subcutaneous injection)?See Instructions?e11.65, use as back up to failed inpen device. following sliding scale, up to 16 units subcutaneously three times a day with meals. max daily dose 48 units Miscellaneous Rx (Rx: Physical Therapy)?See Instructions?Rx: Physical TherapyDx: Frequent falls, deconditioning Mycophenolate Sodium (mycophenolic acid 360 mg oral delayed release tablet)?2?tab(s)?720?Milligram?By Mouth?2 times a day Oxycodone (oxyCODONE 5 mg oral tablet)?5?Milligram?1?tablet?By Mouth?Every 6 hours?as needed?for 5?Days?Pain , Severe Pantoprazole (pantoprazole 40 mg oral delayed release tablet)?1?tab(s)?40?Milligram?By Mouth?2 times a day PredniSONE (predniSONE 5 mg oral tablet)?1?tab(s)?5?Milligram?By Mouth?Daily Rosuvastatin (rosuvastatin 20 mg oral tablet)?1?tab(s)?20?Milligram?By Mouth?Daily Tacrolimus (tacrolimus 1 mg oral capsule)?2.5?capsule?2.5?Milligram?By Mouth?2 times a day?3 in the AM & 3 in the Evening Trazodone (traZODone 100 mg oral tablet)?200?Milligram?2?tablet?By Mouth?Daily atbedtime?as needed?Insomnia ? Medications Started Keflex vitamin D oxycodone PRN Medications Discontinued None Doses Changed None Allergies Allergies ?(Active and Proposed Allergies Only) lisinopril? (Severity: Unknown severity, Onset: Unknown) ? Future Appointments Monday 8:25 AM EST ?? With: Preet CALLOWAY, Sada Where: [facility] [address] [place] [address]- Monday 11:00 AM EDT ?? With: Dung Chen MD Where: [facility] [address] [place] [address]- Hospital Course 71 year old gentleman with history of type 2 DM, hyperparathyroidism, CAD s/p CABG, heart transplant in 2013??on chronic immunosuppressive therapy, chronic kidney disease stage 3,??type 2 diabetes insulin-dependent, peripheral neuropathy, ARNULFO, hypercholesterolemia??recent hospitalization and discharge in May 03, 2022 for right lower extremity cellulitis on p.o. antibiotics??presented back to the ED at [facility] with chief complaint of right lower extremity swelling and redness: ?? Right lower extremity cellulitis: -??No signs of any sepsis -??Right lower extremity ultrasound ruled out any evidence of DVT -??Patient is otherwise functional at baseline -??Patient has right heel ulcer??which initially started as a blister??and opened approximately 4 to 5 weeks ago and is following up with??wound care center at [facility], the likely etiology of the patient recurrent cellulitis??is??this open ulcer -??Patient received??dose of vancomycin as well as Zosyn - During recent hospitalization patient was treated with IV Ancef and was discharged on p.o. Keflex??so we will treat the patient again with IV Ancef for now - 06/08: RLE pain improving, swelling also improved a little - Plan: No fever, leucocytosis Will discharge on oral Keflex to complete 7 days of antibiotics Wound care for RLE wound, his usually does dressing changes and he has an appointment with wound care clinic??next week ?? Elevated troponin/demand??ischemia myocardium: - This patient denies any chest pain - HS troponin 61->52 -??Patient also has elevated proBNP??and lower extremity edema but does not have elevated JVP though hard to assess in the setting of morbid obesity, S/P IV Lasix 20 mg once given. Will defer PO maintenance Lasix to patient's transplant veneer layer/primary veneer layer, he has an appointment next week -??Kidney functions are currently stable ?? History of type 2 diabetes insulin-dependent: - Continue home insulin on discharge. ?? History of peripheral neuropathy: Continue??gabapentin 300 mg 3 times daily ?? History of??coronary artery status post CABG and heart transplant in 2013: Continue the patient on home??dose of prednisone, mycophenolate??and tacrolimus ?? History of??essential hypertension: - Patient is on amlodipine 5 mg daily (recently started), continue on discharge ?? Upon assessment today, patient is doing well. No chest pain, palpitations or SOB. No nausea, vomiting or abdominal pain. He will be discharged home today. Medications and plan of care explained to the patient in detail prior to discharge. Objective . Physical Exam General Appearance: Pleasant, adult male. NAD. Cardiovascular: RRR S1 and S2 heard with no M/R/G. Respiratory: ??Breath sounds clear to auscultation bilaterally. No wheezing or crackles. GI: Soft. Nontender and nondistended. BS are present. MS:?Redness present in bilateral LE. Right leg is more swollen than the left, slightly less swollen compared with yesterday. RLE wound does not look infected. Neuro: ??No slurred speech. ??Patient seen moving their upper and lower extremities independently. Psych: Alert and oriented x3. Appropriate and pleasant. Lines: Peripheral IV in place.?? Patient Education Titles Oxycodone Oral Tablet?? Cephalexin Oral Capsule?? ED Induction Discharge Instructions?? Zones Cellulitis?? Vitamin D (ergocalciferol) Oral Tablet?? Follow-Up Appointments Added Follow Up ?Time Frame ?Comments Dung Chen MD?1 to 2 weeks?Please call to follow up with your primary care physician in 1-2 weeks after discharge. Patient Instructions You were admitted to and treated at [facility] for ?? Right Leg swelling, pain and redness - It is likely due to cellulitis of your right leg. - We did US of right lower leg and it did not show acute blood clot. - We treated you with IV antibiotics. - You current do not have any fever or elevated WBC. We will switch you to oral antibiotics to take6 more days on discharge. - Please watch out for any increased swelling, pain, fever or chills. If any of these occurs, please come back to the hospital. ?? Vitamin D deficiency Falls - You were given prescription for outpatient physical therapy. - You were prescribed with Vitamin D replacement for 8 weeks. Please recheck your vitamin D level after you complete 8 weeks of replacement. Post Discharge Care Diet: Cardiac diet Activity: Ambulate with assistance ??3 times a day ??unless otherwise specified Wound Care: Wound Site: R Heel ??Cleanse with Vashe. Pat dry. Apply Iodosorb to the wound bed. Cover with Mepilex dressing or DSD. Change every other day. ??every other day ??Yes Code Status: ?? Full Resuscitation Discharge ?06/08/22 13:14:00 EST Discharge Prescriptions ?ePrescribed, ??06/08/22 13:14:00 EST 33 minutes spent on discharge * Len Barros: PERFORM Event Display: Patient Education/Instruction Authored Date: [id number] Inpatient Adult Discharge Instructions [address] [id number] Name: REJI BATEMAN : 1950 Visit: 06/07/2022 13:35:00 Current Date: 06/08/2022 13:48 Account: [id number] Inpatient Adult Discharge Instructions We would like to thank you for allowing us to assist you with your healthcare needs. The following includes patient education materials and information regarding your injury/illness. Our entire staffstrives to provide an excellent experience for our patients and their families. PLEASE ENSURE YOU FOLLOW-UP PER THE INSTRUCTIONS BELOW! ?? YOUR OPINION IS IMPORTANT TO US! Please complete the survey you may receive by mail or email. Your feedback will be used to make improvements to the healthcare experiences of our patients and their families. Surveys are administered by [employer] ?? If further treatment with your primary care physician or another doctor is recommended, it is important for you to keep the appointment. Call your primary care physician or return to the Emergency Department immediately if your condition worsens, fails to improve, or new symptoms develop. If you need to find a doctor, you can call [facility] for a referral at [phone] or toll free at [phone] ([phone]) or log in to [email or web address].. ?? You can view and manage your care through the patient portal or by using a health care laurent of your choosing. [employer] is a website that allows you to securely view your medical information including your hospital discharge summary, office visit summaries, medications and follow-up visits. You can also request appointments, renew medications, and request access to your medical information using a health care laurent of your choosing, or just ask a question. You can enroll at [email or web address] or register during your next office visit. You have been discharged from [facility], Patient Care Unit: D3B. If you have any questions regarding these instructions after you leave, please call us and we will be happy to assist you. [facility] Your Care Team Attending Physician Sarah Florez MD Consulting Providers Steffen Cerda MD Discharging Providers Sarah Florez MD Reason for Admission Edema Your Diagnosis Cellulitis Tests Performed Below is a partial list of the tests performed during your hospitalization. You may have had other tests and procedures not included in this list. Please discuss all test results with your provider. 25OH VITAMIN D B Type Natriuretic Peptide Basic Metabolic Panel BUN CBC w/ Differential COVID-19 RNA POC CREATININE D Dimer ELECTROLYTES GLUCOSE POC High??Sensitivity??Troponin T Hold Blue Top Tube MAGNESIUM TACROLIMUS Troponin T, High Sensitivity US Doppler Ext Lower Venous Right XR Ankle Min 3 Views Right XR Chest 2 Views Frontal and Lat XR Foot Min 3 Views Right XR Tibia/Fibula 2 Views Right Primary Care Provider Dung Chen MD Advance Directive Health Care Proxy on File Yes - Health Care Proxy Yes - MOLST Discharge Vitals Temperature: 97.9 DegF Height: 176 cm Pulse Rate:??94 bpm??High ?? Respiratory Rate: 18 br/min ?? Systolic Blood Pressure:??145 mm Hg??High ?? Diastolic Blood Pressure:??93 mm Hg??High ?? Oxygen Saturation: 100 % ?? Studies Pending All tests and labs ordered during this hospital stay have been completed unless listed below. Please discuss all pending results with your provider listed above in these instructions. ?? Add On Lab Order Blood Culture Blood Culture #2 Tacrolimus Level What to do next Instructions From Your Doctor You were admitted to and treated at [facility] for ?? Right Leg swelling, pain and redness - It is likely due to cellulitis of your right leg. - We did US of right lower leg and it did not show acute blood clot. - We treated you with IV antibiotics. - You current do not have any fever or elevated WBC. We will switch you to oral antibiotics to take6 more days on discharge. - Please watch out for any increased swelling, pain, fever or chills. If any of these occurs, please come back to the hospital. ?? Vitamin D deficiency Falls - You were given prescription for outpatient physical therapy. - You were prescribed with Vitamin D replacement for 8 weeks. Please recheck your vitamin D level after you complete 8 weeks of replacement. Discharge Orders Diet:??Cardiac diet Activity:??Ambulate with assistance 3 times a day unless otherwise specified Wound Care:??Wound Site: R Heel Cleanse with Vashe. Pat dry. Apply Iodosorb to the wound bed. Coverwith Mepilex dressing or DSD. Change every other day. every other day Yes Code Status:?? Full Resuscitation Scheduled Follow-Up Appointments Monday 8:25 AM EST ?? With: Preet CALLOWAY, Sada Where: [facility] [address] [place] [id number]- Monday 11:00 AM EDT ?? With: Dung Chen MD Where: [facility] [address] [place] [address]- You Need to Schedule the Following Appointments Follow Up with??Dung Chen MD When??Within 1 to 2 weeks Why: Please call to follow up with your primary care physician in 1-2 weeks after discharge. Where: [address] [place] [address]- Discharge Medications REJI BATEMAN :1950 Visit Date:06/07/2022 Medications: Please continue your medications until treatment is completed or stopped by your provider. Medications not listed below should be discontinued. Discuss any questions related to medications with your provider. What How Much When Instructions Next Dose New Cephalexin (cephalexin monohydrate 500 mg oral capsule) 1 capsule Oral 4 times a day Duration: 6 Days Pickup at [facility]/pharmacy #[id number] 06/08/22 3PM New Cholecalciferol (Vitamin D3 50,000 intl units oral capsule) 1 capsule Oral Every week Duration: 8 week(s) Pickup at [facility]/pharmacy #[id number] As Prescribed New Miscellaneous Rx (Rx: Physical Therapy) See instructions Rx: Physical Therapy Dx: Frequent falls, deconditioning ?? Printed Prescription New Oxycodone (oxyCODONE 5 mg oral tablet) 1 tab(s) Oral Every 6 hours as needed for Pain , Severe Duration: 5 Days Pickup at [facility]/pharmacy #[id number] As Needed Changed Insulin Lispro (Humalog Kwik Pen 100 units/ mL subcutaneous injection) See instructions e11.65, use as back up to failed inpen device. following sliding scale, up to 16 units subcutaneously three times a day with meals. max daily dose 48 units ?? With Meals Unchanged Acetaminophen/ Butalbital/ Caffeine (Fioricet oral capsule) 1 capsule Oral Every 6 hours as needed for Headache As Needed Unchanged Amlodipine (amLODIPine 5 mg oral tablet) 1 tab(s) Oral Daily 06/09/22 AM Unchanged Aspirin (aspirin 81 mg oral delayed release tablet) 1 tab(s) Oral Daily Duration: 30 Days 06/09/22 AM Unchanged Duloxetine (duloxetine 20 mg oral enteric coated capsule) 1 capsule Oral Twice a day 06/08/22 PM Unchanged Durable Medical Equipment (Freestyle Nona Monitor) See instructions Use with Freestyle 14 day Sensor to monitor Blood Glucose. ??E11.65 ?? Unchanged Durable Medical Equipment (Freestyle Nona Sensor) See instructions e11.65, use with freestyle nona 14 day reader for frequent glucose monitoring, change every 14 days, 28 day supply ?? Unchanged Durable Medical Equipment (Pen Brick, 31 G x 8 mm BD Ultra Fine III) See instructions Duration: 90 Days use as directed for Type 2 Diabetes Mellitus for 5 injections per day ?? E11.9 ?? Unchanged Durable Medical Equipment (Pen Brick, 32 G x 4 mm BD Ultra Fine III) Unchanged Fludrocortisone (fludrocortisone 0.1 mg oral tablet) 06/09/22 AM Unchanged Fluticasone Nasal (fluticasone 50 mcg/ inh nasal spray) 06/09/22 AM Unchanged Gabapentin (gabapentin 300 mg oral capsule) 1 capsule Oral 3 times a day 06/08/22 3PM Unchanged insulin degludec (insulin degludec (concentrated) 200 units/ mL subcutaneous solution) See instructions 42 units in the AM and 52 units in the PM 90 days supply ?? 06/09/22 PM Unchanged Mycophenolate Sodium (mycophenolic acid 360 mg oral delayed release tablet) 2 tab(s) Oral Twice a day 06/08/22 PM Unchanged Pantoprazole (pantoprazole 40 mg oral delayed release tablet) 1 tab(s) Oral Twice a day 06/08/22 PM Unchanged PredniSONE (predniSONE 5 mg oral tablet) 1 tab(s) Oral Daily 06/09/22 AM Unchanged Rosuvastatin (rosuvastatin 20 mg oral tablet) 1 tab(s) Oral Daily 06/09/22 AM Unchanged Tacrolimus (tacrolimus 1 mg oral capsule) 2.5 capsule Oral Twice a day 3 in the AM & 3 in the Evening ?? 06/08/22 3PM Unchanged Trazodone (traZODone 100 mg oral tablet) 2 tab(s) Oral Daily at Bedtime as needed for Insomnia As Needed Pharmacy Information [facility]/pharmacy #[id number]: [address] [place], [place] [id number] [phone] Test Results Below is a partial list of the most recent Laboratory test results done prior to this discharge. You may have had other tests and procedures not included in this list. Please discuss all test resultswith your provider. 25OH VITAMIN D (06/08/2022) ???25 OH-Vitamin D Level - 9.3 ng/mL B Type Natriuretic Peptide (06/05/2022) ???Nt-Probnp - 914 pg/mL Basic Metabolic Panel (06/07/2022) ???Sodium - 142 mmol/L???Potassium - 3.8 mmol/L???Chloride - 103 mmol/L???Bicarbonate Level - 26 mmol/L???Anion Gap - 13???Glucose Level - 94 mg/dL???BUN - 21 mg/dL???Creatinine-Blood - 1.0 mg/dL???Estimated GFR Creatinine - 79 ML/MIN/1.73 M2???Calcium - 8.9 mg/dL BUN (06/08/2022) ???BUN - 24 mg/dL CBC w/ Differential (06/07/2022) ???WBC - 5.8 k/mm3???RBC - 4.67 m/mm3???Hgb - 13.1 Gm/dL???Hct - 40.5 %???MCV - 86.7 femtoliters???MCH - 28.1 pg???MCHC - 32.3 g/dL???Platelet Count - 139 k/mm3???RDW-SD - 50.1 femtoliters???MPV - 9.1 femtoliters???Nucleated RBC (Automated) - 0.0 #/100 WBC'S???Abs. NRBC - 0.0 k/mm3???Abs. Neut - 4.7 k/mm3???Abs. Lymph - 0.5 k/mm3???Abs. Nelson - 0.3 k/mm3???Abs. Eo - 0.2 k/mm3???Abs. Baso - 0.0 k/mm3???Neut % - 82.4 %???Lymph % - 8.5 %???Nelson % - 5.6 %???Eos % - 3.0 %???Baso % - 0.2 %???Imm Gran - 0.3 %???Abs. Imm Gran - 0.0 k/mm3 COVID-19 RNA POC (06/05/2022) ???COVID-19 POC Result - NEGATIVE CREATININE (06/08/2022) ???Creatinine-Blood - 1.2 mg/dL???Estimated GFR Creatinine - 66 ML/MIN/1.73 M2 D Dimer (06/05/2022) ???D-Dimer - 0.44 mg/L FEU ELECTROLYTES (06/08/2022) ???Sodium - 144 mmol/L???Potassium - 3.2 mmol/L???Chloride - 103 mmol/L???Bicarbonate Level - 30 mmol/L???Anion Gap - 11 GLUCOSE POC (06/08/2022) ???Glucose, POC - 109 mg/dL High??Sensitivity??Troponin T (06/05/2022) ???High Sensitivity Troponin (HSTnT) - 61 ng/L Hold Blue Top Tube (06/05/2022) ???Hold Blue Top - SPECIMEN DISCARDED AFTER 4 HOURS. MAGNESIUM (06/08/2022) ???Magnesium - 1.7 mg/dL TACROLIMUS (06/08/2022) ???Tacrolimus Level - 9.3 ng/mL Troponin T, High Sensitivity (06/05/2022) ???High Sensitivity Troponin (HSTnT) - 52 ng/L Allergies (NKA means No Known Allergies) lisinopril Problems Active Problems??(44) AICD (automatic cardioverter/defibrillator) present?? BPH - [facility]?? CAD; s/p CABG 1997, [place] 2006 w/stent; heart transplant 04/30?? CHD?? Chronic kidney disease stage 3?? Colon polyp?? Diabetes mellitus with cataract?? Diabetes mellitus with PVD; stents; BWH?? DM 2?? Dry eyes?? Dysautonomia?? Dyslipidemia?? Erectile dysfunction?? Erosive gastropathy - 08/05 EGD; normal EGD 12/06?? Esophageal dysmotility?? DAY (generalized anxiety disorder)?? Gastroesophageal reflux disease?? Glaucoma suspect?? 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 H/o positive PPD, s/p 9mo INH?? Headache?? Heart transplant status?? History of depression?? History of SCC in situ; [facility]?? History of venous thrombosis - R IJ complete, partial on L; AC x3mo?? Hyperparathyroidism?? ICD implanted?? Immunosuppressed status?? Insomnia?? Ischemic cardiomyopathy?? Left foot drop?? Leukopenia?? Low back pain?? Microscopic hematuria; [facility]?? Neck pain?? Neuropathy due to diabetes mellitus?? Obese class I?? Obstructive sleep apnea syndrome?? Osteopenia - minimal, on DXA 08/01?? Peripheral neuropathy?? Presbyesophagus?? Pure hypercholesterolemia?? Tremor - Neurology at [facility]?? Type 2 DM with renal manifestations; [facility]?? Education Materials Below is the list of Educational Leaflet Providered with your Discharge Instructions. Cephalexin Oral Capsule?? ED Induction Discharge Instructions?? Zones Cellulitis?? Vitamin D (ergocalciferol) Oral Tablet?? Valuables and Belongings I fully understand and agree that [facility] accepts no responsibility for all my personal property including clothing, toilet articles, radios, jewelry, dentures, hearing aids, rings, money, or any other property that is in my possession or is brought to me after admission. I understand certain valuables may be placed in a hospital safe for a short period of time. I understand that the hospital is not liable for loss or damage due to accident, fire, or other natural occurrence while said property is in the safe. I accept full responsibility for any personal property that I keep with me, and will not hold the hospital responsible in case of loss or disappearance. I acknowledge that i have been encouraged to send valuables and belongings home. ?? Date for Pt to Sign Valuables/Belongings: 06/06/22 08:41:00 ?? Other Discharge Information ?? Wound Assessment?? Wound Assessment?? Wound Location I: Heel, right ? Pulmonary Rehab Status?? Pulmonary Rehab Discharge Status?? Respiratory Rate: 18 br/min ? Common Emergency Awareness Tips IS IT A STROKE? Act FAST and Check for these signs: FACE Does the face look uneven? ARM Does one arm drift down? SPEECH Does their speech sound strange? TIME Call at any sign of stroke ?? Heart Attack Signs Chest discomfort: Most heart attacks involve discomfort in the center of the chest and lasts more than a few minutes, or goes away and comes back. It can feel like uncomfortable pressure, squeezing, fullness or pain. Discomfort in upper body: Symptoms can include pain or discomfort in one or both arms, back, neck, jaw or stomach. Shortness of breath: With or without discomfort. Other signs: Breaking out in a cold sweat, nausea, or lightheaded. Remember, MINUTES DO MATTER. If you experience any of these heart attack warning signs, call to get immediate medical attention! ?? Smoking can increase your chances of developing chronic health problems and can cause harmful effects to other family members in your house. If you smoke, you are strongly encouraged to quit. Please call [facility] at [phone] or [phone] ([phone]) or log in to [email or web address] for referrals to smoking cessation programs. ?? The National Suicide Prevention Hotline is available 07/11 if you or someone you know needs to find a reason to keep living. By calling 6-770-632-[facility] (9106) you'll be connected to a skilled, trained counselor at a crisis center in your area. INPATIENT DISCHARGE INSTRUCTIONS SIGNATURE PAGE REJI BATEMAN Location:[facility] Registration Date and Time:06/07/2022 13:35 EST Primary Care Physician: Gustavo CALLOWAY, Dung, I REJI BATEMAN, have received the above patient education materials/instructions and have verbalized understanding. If ambulance or transport services are being used I further acknowledge being givena choice of service. ?? If you need to contact me, please call me at this number: . Patient/Ludlow Machine Operator Name: Patient/Ludlow Machine Operator Signature: Relationship to Patient: Witness Name/Signature: Date: * Sarah Florez MD: PERFORM Event Display: Patient Education Leaflets Authored Date: [id number] Oxycodone Oral Tablet ?? [id number] Oxycodone Oral Tablet Brands: Roxicodone Uses For pain. ?? Instructions This medicine may be taken with or without food. Swallow with a full glass (8 oz) of water unless your doctor gives you different instructions. Store at room temperature away from heat, light, and moisture. Do not keep in the bathroom. Please ask your doctor, nurse, or pharmacist how to discard unused medicines safely. To reduce constipation, eat high fiber foods, drink plenty of water and exercise. Avoid grapefruit juice while on this medicine. Drug interactions can change how medicines work or increase risk for side effects. Tell your healthcare providers about all medicines taken. Include prescription and rbaz-fxv-[id number] medicines, vitamins, and herbal medicines. Speak with your doctor or pharmacist before starting or stopping any medicine. Tell your doctor if symptoms do not get better or if they get worse. ?? Cautions This medicine has an opioid. Opioids help many people but may cause addiction, especially if used for a long time. The addiction risk is higher if you have a substance use disorder (overuse of or addiction to drugs or alcohol). Ask your doctor about the benefits and risks. Ask your doctor or pharmacist if you should have naloxone on hand to treat opioid overdose. Teach your family or household members about the signs of an opioid overdose and how to treat it. If you stop this medicine suddenly after using it for a long time, you may have withdrawal. Your doctor may slowly lower your dose before stopping it. Tell your doctor right away if you have symptoms, such as unusual sweating, watering eyes, runny nose, chills, diarrhea, yawning, muscle aches, restlessness, anxiety, trouble sleeping, or thoughts of suicide. Tell your doctor and pharmacist if you ever had an allergic reaction to a medicine. Do not use the medication any more than instructed. This medicine may cause dizziness or fainting, especially after exercising or in hot weather. Be very careful when standing or sitting up quickly. If possible, avoid using with marijuana or other medicines that can cause dizziness or drowsiness. These include allergy/cold products, muscle relaxers, sleep aids, and pain relievers. Your ability to stay alert or to react quickly may be impaired by this medicine. Do not drive or operate machinery until you know how this medicine will affect you. Do not drink beverages with alcohol while on this medicine. This medicine passes into breast milk. Ask your doctor before . This medicine can hurt a new baby in the womb. If you become while on this medicine, tell your doctor immediately. Your doctor may switch you to a different medicine. This medicine should be used with caution in patients with breathing difficulties. Call your doctor right away if you notice slow or shallow breathing. Do not share this medicine with anyone who has not been prescribed this medicine. Some patients have serious side effects from this medicine. Ask your pharmacist to show you the information from the Food and Drug Administration (FDA) and discuss it with you. ?? Side Effects The following is a list of some common side effects from this medicine. Please speak with your doctor about what you should do if you experience these or other side effects. ??? decreased appetite ??? constipation ??? dizziness or drowsiness ??? lightheadedness ??? nausea and vomiting If you have any of the following side effects, you may be getting too much medicine. Please contactyour doctor to let them know about these side effects. ??? confusion ??? fainting ??? unusual or unexplained tiredness or weakness ??? difficulty or discomfort urinating Call your doctor or get medical help right away if you notice any of these more serious side effects: ??? agitated feeling or trouble sleeping ??? decreased awareness or responsiveness ??? breathing interruption during sleep ??? shallow, irregular breathing ??? hallucinations (unusual thoughts, seeing or hearing things that are not real) ??? seizures ??? severe stomach or bowel pain ??? weight loss A few people may have an allergic reaction to this medicine. Symptoms can include difficulty breathing, skin rash, itching, swelling, or severe dizziness. If you notice any of these symptoms, seek medical help quickly. ?? Extra Please speak with your doctor, nurse, or pharmacist if you have any questions about this medicine. ?? [email or web address] IMPORTANT NOTE: This document tells you briefly how to take your medicine, but it does not tell youall there is to know about it. Your doctor or pharmacist may give you other documents about your medicine. Please talk to them if you have any questions. Always follow their advice. There is a more complete description of this medicine available in Indonesian. Scan this code on your smartphone or tablet or use the web address below. You can also ask your pharmacist for a printout. If you have any questions, please ask your pharmacist. The display and use of this drug information is subject to Terms of Use. Copyright(c) 2022 [employer]. ?? The [employer]. All rights reserved. This information is not intended as a substitute for professional medical care. Always follow your healthcare professional's instructions. ?? * Gautam CALLOWAY, Sarah Vivar: PERFORM Event Display: Patient Education Leaflets Authored Date: [id number] Cephalexin Oral Capsule ?? 9898-11 Cephalexin Oral Capsule Brands: Keflex Uses For treating bacterial infection. ?? Instructions This medicine may be taken with or without food. Keep the medicine at room temperature. Avoid heat and direct light. If you forget to take a dose on time, take it as soon as you remember. If it is almost time for thenext dose, do not take the missed dose. Return to your normal schedule. Do not take 2 doses at one time. Tell your doctor and pharmacist about all your medicines. Include prescription and wcav-yyu-nincznhvifppzsxg, vitamins, and herbal medicines. Keep using this medicine for the full number of days that it is prescribed. Do not stop the medicine even if you start to feel better. If you have diabetes and use urine glucose tests, this medicine may cause incorrect results. Pleasecheck with your doctor before making any changes to your diabetes treatment plan. ?? Cautions Tell your doctor and pharmacist if you ever had an allergic reaction to a medicine. Do not use the medication any more than instructed. Please tell your doctor if you have moderate to severe diarrhea while on this medicine. Do not treat the diarrhea with fhqq-nna-mqvczoz diarrhea medicine. Tell the doctor or pharmacist if you are , planning to be , or . Do not start or stop any other medicines without first speaking to your doctor or pharmacist. Do not share this medicine with anyone who has not been prescribed this medicine. ?? Side Effects The following is a list of some common side effects from this medicine. Please speak with your doctor about what you should do if you experience these or other side effects. ??? diarrhea ??? nausea and vomiting ??? stomach upset or abdominal pain ??? yeast infection of mouth ??? vaginal itching or yeast infection Call your doctor or get medical help right away if you notice any of these more serious side effects: ??? severe, watery or bloody diarrhea A few people may have an allergic reaction to this medicine. Symptoms can include difficulty breathing, skin rash, itching, swelling, or severe dizziness. If you notice any of these symptoms, seek medical help quickly. ?? Extra Please speak with your doctor, nurse, or pharmacist if you have any questions about this medicine. ?? [email or web address] IMPORTANT NOTE: This document tells you briefly how to take your medicine, but it does not tell youall there is to know about it. Your doctor or pharmacist may give you other documents about your medicine. Please talk to them if you have any questions. Always follow their advice. There is a more complete description of this medicine available in Indonesian. Scan this code on your smartphone or tablet or use the web address below. You can also ask your pharmacist for a printout. If you have any questions, please ask your pharmacist. The display and use of this drug information is subject to Terms of Use. Copyright(c) 2022 [employer]. ?? The [employer]. All rights reserved. This information is not intended as a substitute for professional medical care. Always follow your healthcare professional's instructions. ?? * Gautam CALLOWAY, Sarah Vivar: PERFORM Event Display: Patient Education Leaflets Authored Date: ED Induction Discharge Instructions ?? 119 ED Induction Discharge Instructions ?? GENERAL INFORMATION You were evaluated in the Emergency Department and treated for Opioid Use Disorder. Opioid Use Disorder is a medical illness; by agreeing to start medication, buprenorphine, you have taken a big steptoward getting better. Below is information about opioid use disorder and buprenorphine. ?? Opioid Use Disorder: Opioids change the chemistry of the brain, making it nearly impossible to live and work without constantly feeling the urge to use opioids. Our goal is to help you recover and be able to live and work normally. Buprenorphine is an important medication in the treatment of Opioid Use Disorder. In addition to helping to normalize your brain chemistry and reduce the urge to use opioids, buprenorphine can also help reduce the harm and danger of using heroin or pain pills. ?? Buprenorphine: Buprenorphine is medicine for people who have chronic pain or addiction to opioids (heroin or pain pills). Many people know it by brand names like Suboxone?? and Subutex??. Buprenorphine helps get rid of cravings and withdrawal, without making you feel high. People live longer and have fewer overdoses when they take buprenorphine. It is a safe medicine that has been in use for 30 years. Taking buprenorphine is not substituting one drug for another??? it is a medicine that you may need to stay healthy. ?? How to Take Buprenorphine? Buprenorphine or Suboxone, whether the pill or film, must be dissolved under the tongue for 10 minutes. DO NOT SWALLOW OR CHEW the buprenorphine, because it will not work. You should start to feel the effects of the buprenorphine within 30 minutes ?? Please Return to the Emergency Department: If you have continued craving for opioids even though you are taking buprenorphine. If you have relapsed on heroin or pain pills ??? relapse is part of recovery, we will work to help you to get better and back on track. ?? Follow Up: We will call you in 1-3 days to ask how you are feeling and work to connect you with a long-term clinic to continue your treatment. ? ED INDUCTION DISCHARGE INSTRUCTIONS ?? You have been started on Buprenorphine (Suboxone) in the Emergency Department. Please follow the instructions below. ?? In the Emergency Department, you were started on buprenorphine (dose ___ mg) Your dose of Buprenorphine Tomorrow (DAY 2) ?? Day 2 Dosing (Provider unga the pathway) ? If you were given 4mg or 8mg on day 1 and felt good, start with 8mg (one full film) on day 2. Remember to dissolve the buprenorphine under your tongue for 10 minutes. ??? Wait 4 hours ??? If you still feel bad, you can take another 4mg for a total of 12mg on day 2 ?? If you were given 12mg on day 1, start with 16mg on day 2. Remember to dissolve the buprenorphine under your tongue for 10 minutes. ? Day 3 Dosing and beyond ?? If your day 2 dose was 4mg or 8mg and you feel good, take 8mg (one full film) on day 3 and beyond. ?? If you needed 12mg or 16mg on day 2, start with 16mg (two full films) on day 3 and beyond. ?? QUESTIONS If you have any questions about how to take buprenorphine, or believe you are still feeling cravings to use heroin or other opioids or are experiencing withdrawal symptoms, please call the emergency department at the following numbers. Between 9:00am-4:00pm call [phone] to speak to the Follow Up Nurse. From 4:00pm-9:00am call [phone] to speak to an emergency department district sales representative. ?? RESOURCES TO TREAT OPIOID USE DISORDER ?? [facility] If you are not ready to stop using injection drugs, [facility] provides unused needles, Narcan, and education on how to prevent overdose and infection. ?? [facility] [address] [place], [place] ?? [facility] [address] [facility] Phone: extension 1 ?? [facility] that offer Suboxone If you have a primary doctor in any of the following locations, they will be able to help you continue buprenorphine (Suboxone) ??[facility] [address] [place] [address] ?? [facility] [address] [place] [address] ?? [facility] [address] [place] [address] Direct Line: [phone] ?? [facility] [address] [place] [address] ?? [facility] [address] [place] [address] ?? [facility] [address] [place] [address] ?? RESOURCES TO TREAT OPIOID USE DISORDER ?? Suboxone Clinics Standalone Private clinics willing to accept new patients. Of note, the Suboxone clinics below usually require a photo ID and Insurance ?? [facility] [address] [facility] [address] P: [phone] ?? [facility] [address] [place] [address] ?? [facility] [address] [facility] [address] [address] Central Line: [phone] ?? [facility] [address] [place] [address] ?? [facility] [address] [place] [address] ?? [facility] [address] [place] [address] ?? [facility] [address] [place] [address] ?? ED BUPRENORPHINE DISCHARGE INSTRUCTIONS ?? Safe Handling of Buprenorphine Buprenorphine-containing products can be harmful to children not only when a whole tablet or film is swallowed, but also when they are licked or placed in the mouth. ?? Keep medication out of sight and out of re ach of children. ?? Use a locked box, bag, or cabinet for safe storage of medication. ?? Always keep medication in its original, labeled prescription container, with child-resistant closure when appropriate. ?? Do not place tablets or films on counters, sinks, dressers, or nightstands for later use. ?? Discard used buprenorphine film??wrapping immediately by folding the package together, placing it in the trash, and securing the trash. Buprenorphine bottles and film wrapping can contain enough leftover medicine to cause problems for young children. ?? Do not store medication in your pocket, bag, purse, backpack, or other carrying case. ?? Avoid leaving medication in the bathroom, car, or any publicly accessible space. ?? ADDITIONAL RESOURCES ?? Transportation If transportation is a challenge for you, there may be options available at low or no cost. Some organizations, like [employer],help people with transportation through their case management teams. If you are on [facility], you are eligible to have PT-1 transportation to your medical appointments at clinics or doctors??? offices. Call your primary care provider or clinic to ask for help with transportation as soon as possible. ?? Insurance [place] Medicaid (Yabbly) will pay for a Suboxone prescription. Eligibility for Yabbly depends on your income and assets. ?? Applying for Yabbly. [facility] [address] [facility], [place] [address] ?? Enrollment Hotline: Formore information or to enroll online: [email or web address]://www.[employer].[email or web address]/[email or web address].[email or web address] may pay for some or all of your prescription, depending on the Medicare plan you are signed up for. To be eligible you must be over 65 or have a permanent disability. Medicare Part A/B will cover buprenorphine given in a facility such as a detox or early stabilization program. Medicare Part C/D may have copays that range depending on the plan. For advice and information, speak with a CHLOE counselor at your local elder services organization or by calling . ?? [address], [address] [place], [place]. ?? If you have Private Health Insurance,, you should call the hotline number on the back of your insurance card for more information on coverage and co-pays. ?? If you need to obtain a Photo ID or are having difficulty obtaining Insurance ?? [facility] Financial Services (insurance) Can assist with applying for?? insurance [facility] [address] [facility], [place], [place] [facility] (To obtain a PhotoID) [address] [place] [address] ? ADDITIONAL RESOURCES ?? Counseling and Recovery?? Detox Even if you start buprenorphine from the emergency department, it may be beneficial to go into a formal detox program. For more information on detox placement, please reach out to the [facility] Emergency Department Assembly Stock Supervisor at [phone]. ?? Outpatient Counseling Resources ?? [facility] ([facility]) - [phone]?? ([phone]) [email or web address] Locations: [place], [place], [place], [facility], [place], [place] *Languages: Indonesian, Azerbaijani, Nigerien, and Ivorian * Outreach therapy available * ?? Clinical Support Options (FIRE CODE INSPECTOR) - [phone] [email or web address] Locations: [place], [place], [place], [place], [place] *Has walk-in appointments* ?? [facility] ([facility]) - [phone] [email or web address]/ Locations: [place] (multiple locations), [facility], [place], [place] * Azerbaijani-language * Walk-in appointments available * Outreach therapy available * ?? [facility] - [phone] [email or web address] Locations: [facility] *Azerbaijani-language * Outreach therapy available * ?? ADDITIONAL RESOURCES ?? Recovery Coaching Programs Recovery Coaches are peer-lead programs where you meet with someone in the community to help you navigate and plan your recovery. Recoverycoaches are free and do not require insurance. ?? [facility] Recovery and Peer Support [address] [place], [place] [phone]; [phone] [email or web address] ?? [facility] [address] [place] [address] ; [phone] [email or web address] ?? [facility] Coaching and Case Management Services -Dorothy Priest [address] [place] [address] 1 -[phone] ?? The RECOVER Project - Laila Funes [address] [place] [address] [email or web address] ?? Hope for [facility] Support [place] ?? - Mai Anderson [address] [place] [address] [email or web address] ?? [facility]. [address] [place], [place] [phone]; [email or web address] ?? [facility] - Marnie Elizabeth???s [facility] [address] [facility], [place], [place] Open Monday and Monday 1:00-4:00 [facility] ?? ADDITIONAL RESOURCES ?? Intensive Outpatient Programs Programs that have scheduled meetings, sessions and workshops. Allows patients to still work and complete in daily home activities while also participating in treatment ?? [facility] [place] [address] [place]. [address] [place], [place] [phone] [email or web address] ?? [facility] SOAP Program - Bella Gallegos [address] [place], [place] [phone] [email or web address] ?? [facility] [address] [place] [address] [email or web address] ?? [facility] [address] [place], [place] [phone] www.[email or web address] ?? [facility] Intensive Outpatient Program [address] [facility], [place], [place] [phone] [email or web address] ?? [facility] [address] [place], [place] [phone] [email or web address] ?? Clinical Support Options [email or web address] [address], [place], [place] [phone] [address] [place], [place] [phone] ? Tips to Stay Healthy for People who Inject Drugs .?? You have been seen at the [facility] Emergency Department for aproblem related to Injection Drug Use. Risks of injecting drugs include: ? Damage to blood vessels ??? Painful skin infections like cellulitis and abscesses ??? Dangerous bloodstream infections that can damage your organs, including your heart and spinal cord ??? Becoming infected with a virusincluding Hepatitis C and HIV (the virus that causes AIDS)? Overdose and ?? The best wayto lower the risks of injecting drugs is to begin treatment with medications like Buprenorphine (Suboxone), Methadone or Naltrexone. If you are interested in treatment, we have phone numbers of medical operations supervisor that can help you start or continue treatment (below).? However , if you are not yet ready to stop injecting drugs, there are things you can do to keep yourself healthy. Below aretips to help you stay healthy and decrease the dangers of injecting drugs. ?? 1)? Try to use a new needle every time you inject. NEVER share needles. Viruses like Hepatitis can live on used needles for hours to days. Reusing the same needle will dull the needle tip, leading to trauma to the blood vessels and more painful injecting.? Never share needles ??? Try to use a new, unused needle every time you inject You can get free unused needles at [facility] Sites Many drug stores, like [employer] and [employer], sell unused insulin needles . Do not sharpen an old needle ??? it creates barbs that can damage your skin and blood vessels. If you must share a needle, cleaning it beforeuse may reduce the risk of infection. Flush it with sterile water. If you don???t have sterile water, use cold tap water. Fill the syringe with household bleach. Shake for 2 minutes. If you don???t have bleach, you can use rubbing alcohol or hydrogen peroxide Flush it with water again ?? 2)? Usesterile water to mix your drugs. Tap water contains bacteria that can cause an infection when injected. Use sterile water or sterile saline if possible. You can get sterile water at [facility] Services Sites Many drug stores, like [employer], sell sterile water. If you do not have sterile water, you can boil water for 10 minutes. Let the water cool before injecting. ?? 3)? Wipe your skin with an alcohol pad before you inject Even with unused needles and sterile water, bacteria on your skin can be pushed into your blood when injecting. Wash your hands with soap and water beforeinjecting. When you are ready to inject, rub your skin with an alcohol wipe to kill the bacteria onyour skin. ?? 4)? Rotate Injection Sites Using the same site many times can cause scarring, bruising and infection. Rotate injection sites, using different sides and different veins. If you are using the same vein, inject at least one inch away from the previous site. Avoid the veins in your neck, groin and feet. ? 5)? Reduce your risk of overdose Most heroin contains fentanyl, a powerful drug that causes many deaths. Here are best practices you can do to reduce your risk of dying from an overdose Whenever possible, use with a trusted friend or partner. Take turns injecting Narcan can save your life if you overdose. Have Naloxone (Narcan) at arm???s reach when you inject. Make sure your partner knows where the Narcan is and how to use it in case of an overdose You can get Narcanfor free at [facility] Sites Drug stores, like [employer] and [employer], provide Narcan without a prescription Do not mix heroin with alcohol or other drugs. If you have not used drugs in a long time, or if you are buying from a new dealer, your body may not be used to the strength of the drug. You should: Start with a lower dose. Consider using a ???israel shot?? , injecting a small amount first to make sure the drug is not too strong, before you inject your regular dose . If you must use alone, find a place where someone would see you if you had an overdose. Do not use in a locked bathroom. ?? 6)? If you see an overdose: Call 911! Signs of overdose include slow breathing, blue face or lips, or if you are unable to wake the person. If you suspect an overdose CALL 911 immediately! Give Narcan if you have it DO NOT try to inject salt water, inject stimulant drugs, or put the victim in a cold-water bath. ? [facility] Service Sites are an important resource ?[employer] provides free supplies for people who inject drugs, including: Naloxone (NARCAN), unused needles, sterile water, alcohol pads, cookers and tourniquets. ? They will help teach you howto inject safely to reduce the risk of complications ? They can help you find treatment, support and resources to improve your life. ?? [employer] Syringe Service Sites in [facility] ?? [address] [place], [place] [address] [facility] extension1 ?? [facility] Emergency Department can help! The Emergency Department at [facility] has physicians, social workers, nurses, mental health and financial counselors with experience in treating patients with opioid use disorder. ?? Between 9:00am-4:00pm call [phone] to speak to the Follow Up Nurse. From 4:00pm-9:00am call [phone] to speak to an emergency department district sales representative. If you feel unsafe, are ready for treatment immediately, or have any emergency, we are available 07/11 to help you. ? * KEVIN Garcia S: Mian Cortes MD: VERIFY Event Display: Result: Authored Date: [id number] Chest 2 Views Frontal and Lat Hx of Present Illness: Leg pain; Reason: Other:; Chest Pain; Clinical Question(s): Other: COMPARISON: 05/02/2022 chest radiograph. FINDINGS: LINES AND TUBES: None. LUNGS AND PLEURA: Clear lungs. Normal pulmonary vascularity. No pleural effusion. No pneumothorax. HEART, MEDIASTINUM AND AIDA: Heart is normal in size. Normal mediastinal and hilar contour. Prior CABG. BONES AND SOFT TISSUES: No acute abnormality. Prior median sternotomy. IMPRESSION: No acute abnormality. WSN: [id number] Ordering Physician: Charlotte Coates Dictated By: Mian Hudson MD Dictated Date/Time: 06/05/22 1:23 pm Reviewed By: Mian Hudson MD Signed By: Mian Hudson MD Signed Date/Time: 06/05/22 1:23 pm Transcribed By: MAVIS Transcribed Date/Time: 06/05/22 1:21 pm * KEVIN Garcia S: Levi Renteria MD: VERIFY Event Display: Result: Authored Date: [id number] US Doppler Ext Lower Venous Right Hx of Present Illness: Leg pain; Reason: Other:; Pain in limb; Clinical Question(s): Thrombus COMPARISON: 05/01/2022. IMAGING TECHNIQUE: Ultrasound of the veins from the groin through the calf was performed using grayscale, color, and spectral Doppler ultrasound assessing for complete compressibility and normal flowcharacteristics. FINDINGS: Common femoral vein: Patent. No thrombosis. Femoral vein: Patent. No thrombosis. Popliteal vein: Patent. No thrombosis. Gastrocnemius veins: The visualized portions are patent without evidence of thrombosis. Peroneal veins: The visualized portions are patent without evidence of thrombosis. Posterior tibial veins: The visualized portions are patent without evidence of thrombosis. Contralateral common femoral vein: Patent. No thrombosis. OTHER FINDINGS: IMPRESSION: No evidence of deep venous thrombosis. WSN: [id number] Ordering Physician: Alan Loyola Dictated By: Levi Meza MD Dictated Date/Time: 06/05/22 3:21 pm Reviewed By: Levi Meza MD Signed By: Levi Meza MD Signed Date/Time: 06/05/22 3:21 pm Transcribed By: MAVIS Transcribed Date/Time: 06/05/22 3:20 pm XR Ankle - right GE 3 Views * BHSPowerscribe , CIS S: TRANSCRIBE Mian Hudson MD: VERIFY Event Display: Result: Authored Date: [id number] Tibia/Fibula 2 Views Right, Ankle Min 3 Views Right Hx of Present Illness: Leg pain; Reason: Pain; Clinical Question(s): Fracture COMPARISON: None. FINDINGS: No fractures or bone lesions. Visualized knee joint is normal. The ankle joints appear normal. Ankle mortise intact. No significant arthritic changes. Small enthesophyte at the quadriceps insertion on the patella. [place]icho along the medial knee and calf probably related to vein harvesting. Vascular calcifications. IMPRESSION: No acute fracture or malalignment. WSN: [id number] Ordering Physician: Charlotte Coates Dictated By: Mian Hudson MD Dictated Date/Time: 06/05/22 1:26 pm Reviewed By: Mian Hudson MD Signed By: Mian Hudson MD Signed Date/Time: 06/05/22 1:26 pm Transcribed By: MAVIS Transcribed Date/Time: 06/05/22 1:23 pm XR Tibia and Fibula - right 2 Views * XOCHITLSPowerscribe , CIS S: TRANSCRIMian Bertrand MD: VERIFY Event Display: Result: Authored Date: [id number] Tibia/Fibula 2 Views Right, Ankle Min 3 Views Right Hx of Present Illness: Leg pain; Reason: Pain; Clinical Question(s): Fracture COMPARISON: None. FINDINGS: No fractures or bone lesions. Visualized knee joint is normal. The ankle joints appear normal. Ankle mortise intact. No significant arthritic changes. Small enthesophyte at the quadriceps insertion on the patella. [place]on along the medial knee and calf probably related to vein harvesting. Vascular calcifications. IMPRESSION: No acute fracture or malalignment. WSN: [id number] Ordering Physician: Charlotte Coates Dictated By: Mian Hudson MD Dictated Date/Time: 06/05/22 1:26 pm Reviewed By: Mian Hudson MD Signed By: Mian Hudson MD Signed Date/Time: 06/05/22 1:26 pm Transcribed By: MAVIS Transcribed Date/Time: 06/05/22 1:23 pm XR Foot - right GE 3 Views * KEVIN Chaves S: TRANSCRIChad Diallo MD: VERIFY Event Display: Result: Authored Date: [id number] Right foot 3 views dated June 06, 2022. No prior studies are available. HISTORY: Pain. Infection. FINDINGS: This examination shows no evidence of fracture or dislocation. There is loss of joint space in the interphalangeal joints with osteophyte formation most prominent in the great toe. A minimal plantar calcaneal bone spur is noted and minimal calcification is present at the insertion of the Achilles tendon. No radiopaque foreign body or soft tissue gas is noted. Some arterial calcifications are present. IMPRESSION: Degenerative changes. No evidence of fracture or dislocation. Examination 63495. Thank you for allowing me to participate in the care of this patient. WSN: [id number] Ordering Physician: Karmen Paul Dictated By: Chad Ulrich MD Dictated Date/Time: 06/06/22 8:19 am Reviewed By: Chad Ulrich MD Signed By: Chad Ulrich MD Signed Date/Time: 06/06/22 8:19 am Transcribed By: CSB Transcribed Date/Time: 06/06/22 8:18 am Patient Care team information Care Team Personnel Name: Duncan Nenita Position: [facility] RN Supv Member Role: Primary Care Nurse Name: Najma Michael RN Position: [facility] RN Member Role: Primary Care Nurse Name: Mallory Masterson NP Position: Reference Physician Member Role: Primary Care Nurse Address: Address: [address] [place] [address]- [place] Name: Scarlet Rosenthal RN Position: [facility] RN Member Role: Primary Care Nurse Name: Dung Chen MD Position: [facility] Primary Care Physician Member Role: PCP Address: Address: [address] [place] [phone]- [place] Name: Heydi Oviedo RN Position: [facility] Coke Burner Member Role: Primary Care Nurse Name: Sandra Cat Position: [facility] Outreach Member Role: Lifetime Consulting Physician Name: Belinda Stevenson RN Position: [facility] RN Member Role: Primary Care Nurse Name: Luis Peters MD Position: [facility] Renal MD Member Role: Lifetime Consulting Physician Address: Address: [address] [facility], [place] [address]- [place] Name: Zulma Martinez MD Position: [facility] Cardiology MD Member Role: Lifetime Consulting Physician Address: Address: [address] [place] [address]- [place] Name: Evelyn Jean-Baptiste RN Position: [facility] RN Member Role: Primary Care Nurse Name: Hilda Mcdonald RN Position: [facility] RN Member Role: Primary Care Nurse Name: Zafar DOMINGUEZ Attending Position: [facility] ED Medicine MD Name: Gabriele Caceres Position: [facility] ED TA [facility] Member Role: Patient Care Provider Name: Gogo Torres RN Position: [facility] ED RN W/OE and Tasks Member Role: Patient Care Provider Care Team Related Persons Name: LUCIA BATEMAN Address: home [address] [place] [address]
--- OUTSIDE RECORDS SUMMARY | 2023-05-15 08:53 | XMS_ITS | Continuity of Care Document ---
Author Name Unknown Organization [facility] ter Address [address] [place] [address]- Care Team Providers Care House Coordinator Name Role Phone Dung Chen MD Primary Care Physician [phone] Encounter [facility] [place] Date(s): 06/02/21 - 06/08/[address] [address] Encounter Diagnosis Hypokalemia(Final) - 06/01/21 Hypomagnesemia(Final) - 06/01/21 Hypokalemia(Final) - 06/01/21 Hypomagnesemia(Final) - 06/01/21 Discharge Disposition: A-D/C Home Attending Physician: Carrol De Anda MD Admitting Physician: Verna Suh MD Referring Physician: Not on Staff, Referring [...] he received this seasons flu vaccine at [place]. 3Admin Note: Patient states he received pneumovax in 2004 at [place]. Medications aspirin 81 mg oral delayed release tablet 81 mg, 1, tablet, By Mouth, Daily, # 30 tablet, Refills 0, Tot. Refills 0, Maintenance, 06/08/21 11:45:00 EST, Route to Pharmacy Electronically, [facility]/pharmacy #[id number], Partial fill upon patient request if the prescription is for a schedule II opioid drug... Start Date: 06/08/21 Stop Date: 07/08/21 Status: Ordered Carafate 1 gm oral tablet 2 Gm, 2, tablet, By Mouth, 4 times a day, # 240 tablet, Refills 0, Tot. Refills 0, Maintenance, 06/08/21 11:45:00 EST, Route to Pharmacy Electronically, [facility]/pharmacy #[id number], Partial fill upon patient request if the prescription is for a schedule II opi... Start Date: 06/08/21 Status: Ordered fluconazole 200 mg oral tablet 1 tablet = 200 mg, By Mouth, Daily, for 8 days, # 8 tablet, 0 Refills, Acute 06/16/21 11:48:00 EST,06/08/21 11:48:00 EST, Tablet, [id number], Partial fill upon patient request if the prescription is for a schedule II opioid drug., 175, cm, 02... Start Date: 06/08/21 Stop Date: 06/16/21 Status: Ordered fludrocortisone 0.1 mg oral tablet 1 tablet = 0.1 mg, By Mouth, Daily, # 30 tablet, 0 Refills, Maintenance, 06/01/21 20:11:00 EST, Tablet, Partial fill upon patient request if the prescription is for a schedule II opioid drug. Start Date: 06/01/21 Status: Ordered gabapentin 300 mg oral capsule 600 mg, Capsule, By Mouth, 06/08/21 9:00:00 EST Start Date: 06/08/21 Stop Date: 06/08/21 Status: Completed gabapentin 600 mg oral tablet TAKE 1 TABLET BY MOUTH 3 TIMES DAILY FOR 90 DAYS. Start Date: 06/01/21 Status: Ordered Lasix 20 mg oral tablet 20 mg, 1, tablet, By Mouth, Daily, # 30 tablet, Refills 0, Tot. Refills 0, Soft Stop, 06/08/21 11:54:00 EST, Route to Pharmacy Electronically, [facility]/pharmacy #[id number], Partial fill upon patient request ifthe prescription is for a schedule II opioid drug.,... Start Date: 06/08/21 Stop Date: 07/08/21 Status: Ordered LORazepam 0.5 mg oral tablet TAKE 1 TABLET BY MOUTH EVERY 8 HOURS NEEDED FOR ANXIETY Start Date: 06/01/21 Status: Ordered magnesium oxide 400 mg oral tablet 1 tablet = 400 mg, By Mouth, 2 times a day, for 21 days, # 42 tablet, 0 Refills, Acute 06/29/21 11:50:00 EDT, 06/08/21 11:50:00 EST, Tablet, [facility]/pharmacy #[id number], Partial fill upon patient request if the prescription is for a schedule II opioid drug., 1... Start Date: 06/08/21 Stop Date: 06/29/21 Status: Ordered Melatonin 3 mg oral tablet TAKE 1 TABLET BY MOUTH AT BEDTIME Start Date: 06/01/21 Status: Ordered mycophenolic acid 360 mg oral delayed release tablet See Instructions, Take 1 tablet twice daily for one week. After one week take 2 tablets twice daily., # 98 tablet, 0 Refills, Maintenance, 06/08/21 11:40:00 EST, ER Tablet, [facility]/pharmacy #[id number], Partial fill upon patient request if the prescription is f... Start Date: 06/08/21 Status: Ordered pantoprazole 40 mg oral delayed [...] 12:49:42 Start Date: 04/07/17 Status: Ordered tacrolimus 0.5 mg oral capsule See Instructions, Take 2 capsules (1mg total) by mouth in the morning, one capsule (0.5mg total) bymouth in the evening., # 90 capsule, 0 Refills, Maintenance, 06/08/21 11:44:00 EST, Capsule, [facility]/pharmacy #[id number], Partial fill upon patient request if t... Start Date: 06/08/21 Status: Ordered traZODone 100 mg oral tablet 200 mg, 2, tablet, By Mouth, Daily at bedtime, PRN, # 60 tablet, Refills 5, Tot. Refills 5, Maintenance, Insomnia, 05/27/19 16:08:00 EST, [id number] 175, cm, 12/05/18 15:23:00 EDT, Height, [...] symptom disorde r with predominant pain(Confirmed) Active Results Orders for Microbiology Reports Name Date Stool Culture 06/05/21 Blood Culture #2 06/01/21 Blood Culture 06/01/21 Microbiology Reports TEST:Stool Culture STATUS:Auth (Verified) BODY SITE: SOURCE:STOOL COLLECTED DATE/TIME:06/05/21 12:25 PM Stool Culture SPECIMEN DESCRIPTION : STOOL IN DENIS SONIA PRESERVATIVE SPECIAL REQUESTS : NONE CULTURE : SHIGA TOXIN 1 AND 2 NOT DETECTED NO SALMONELLA, SHIGELLA, CAMPYLOBACTER OR AEROMONAS ISOLATED REPORT STATUS : FINAL 06/07/2021 TEST:Blood Culture, Second Order STATUS:Auth (Verified) BODY SITE: SOURCE:Blood COLLECTED DATE/TIME:06/01/21 10:55 AM Blood Culture, Second Order SPECIMEN DESCRIPTION : BLOOD L AC SPECIAL REQUESTS : NONE CULTURE : NO GROWTH 5 DAYS. REPORT STATUS : FINAL 06/06/2021 TEST:Blood Culture STATUS:Auth (Verified) BODY SITE: SOURCE:Blood COLLECTED DATE/TIME:06/01/21 10:35 AM Blood Culture SPECIMEN DESCRIPTION : BLOOD L AC SPECIAL REQUESTS : NONE CULTURE : NO GROWTH 5 DAYS. REPORT STATUS : FINAL 06/06/2021 Vital Signs Most recent to oldest [Reference Range]: 1 2 3 Height 175 cm (06/08/21 7:53 AM) 175 cm (06/08/21 2:45 AM) 175 cm (06/07/21 8:32 PM) Weight 75.2 kg (06/07/21 6:23 AM) 75.5 kg (06/06/21 6:49 AM) 75.1 kg (06/04/21 6:51 AM) Oxygen Saturation [94-100 %] 100 % (06/08/21 7:53 AM) 98 % (06/08/21 2:45 AM) 98 % (06/07/21 8:32 PM) Pulse Rate [55-90 bpm] 100 bpm *H* (06/08/21 7:53 AM) 90 bpm (06/08/21 2:45 AM) 87 bpm (06/07/21 8:32 PM) Body Mass Index [18.5-24.99] 24.59 (06/03/21 10:54 AM) 24.36 (06/01/21 9:45 PM) Blood Pressure [90-138/55-84 mm Hg] 94/76mm Hg (06/08/21 7:53 AM) 113/70mm Hg (06/08/21 2:45 AM) 107/67mm Hg (06/07/21 8:32 PM) Respiratory Rate [16-30 br/min] 18 br/min (06/08/21 10:04 AM) 18 br/min (06/08/21 9:04 AM) 18 br/min (06/08/21 7:53 AM) Temperature [96.8-100.4 DegF] 97.6 DegF (06/08/21 7:53 AM) 97.2 DegF (06/08/21 2:45 AM) 97.6 DegF (06/07/21 8:32 PM) Mode of Delivery (Oxygen) Room air (06/08/21 7:53 AM) Room air (06/08/21 2:45 AM) Room air (06/07/21 8:32 PM) Blood pressure sites Arm, right (06/08/21 7:53 AM) Arm, right (06/08/21 2:45 AM) Arm, right (06/07/21 8:32 PM) Temperature Route Temporal (06/08/21 7:53 AM) Temporal (06/08/21 2:45 AM) Temporal (06/07/21 8:32 PM) Dry Weight 75 kg (06/01/21 9:45 PM) Weight Obtained Via Bed scale (06/07/21 6:23 AM) Bed scale (06/06/21 6:49 AM) Bed scale (06/04/21 6:51 AM) Social History Social History Type Response Smoking Status Former smoker, quit more than 30 days ago entered on: 06/01/21 Sex
--- OUTSIDE RECORDS SUMMARY | 2023-05-15 08:53 | XMS_ITS | Continuity of Care Document ---
Author Name Unknown Organization [facility] ter Address [address] [place] [id number]- Care Team Providers Care Convertible Power Shovel Operator Name Role Phone Dung Chen MD Primary Care Physician [place] [facility] [id number] Date(s): 12/22/22 - 02/19/[address] [address] Attending Physician: Toshia Fuller MD Admitting Physician: Toshia Fuller MD Referring Physician: Dung Chen MD Allergies, Adverse Reactions, Alerts Substance Reaction Severity Status lisinopril Active Immunizations Given and Recorded Vaccine Date Status Refusal Reason tetanus/diphtheria/pertussis, acel(Tdap) 1 12/08/22 Given tetanus/diphtheria/pertussis, acel(Tdap) 03/27/12 Recorded pneumococcal 20-valent conjugate vaccine 2 12/08/22 Given [id number] 12y+ bivalent booster vax 04/15/22 Recorded influenza [...] vaccine, inactivated 03/07/06 Quinn rded SARS-CoV-2 mRNA ([id number]) vax 07/18/21 Recorded SARS-CoV-2 (COVID-19) mRNA BNT-162b2 [...] Vacc (oldterm) 5 07/14/04 Given 1Result Comment: [facility] [place] [id number] 2Result Comment: [facility] [place] [id number] 3Result Comment: Lot # [id number] Exp. #) SEP 23 4Admin Note: Pt states he received this seasons flu vaccine at [place]. 5Admin Note: Patient states he received pneumovax in 2004 at [place]. Medications amLODIPine 10 mg oral tablet 10 mg, 1, tablet, By Mouth, Daily, # 90 tablet, Refills 3, Tot. Refills 3, Maintenance, 11/03/22 11:30:00 EDT, Route to Pharmacy Electronically, [facility] ), Partial fill upon patient request if the prescription is for... Start Date: 11/03/22 Status: Ordered aspirin 81 mg oral delayed release tablet 81 mg, 1, tablet, By Mouth, Daily, # 30 tablet, Refills 0, Tot. Refills 0, Maintenance, 06/08/21 11:45:00 EST, Route to Pharmacy Electronically, [facility]/pharmacy #[id number], Partial fill upon patient request if the [...] 3 Refills, Maintenance, 01/19/23 18:26:00 EDT, [facility] [place],[facility], Partial fill upon patient request if the prescription is for a schedule II opioid drug., 1 sprays Nares, Both Daily, 173, cm, 10/0... Start Date: 01/19/23 Status: Ordered Freestyle Nona 2 [place] Freestyle Nona 2 [place], See Instructions, # 1 each, Refills 0, Tot. Refills 0, Maintenance, Use to monitor blood glucose, scan sensor upon waking, before meals and at bedtime. E11., 10/25/22 9:50:00 EDT, Supply Start Date: 10/25/22 [...] Maintenance, 08/23/22 12:58:00 EDT, [facility] ([facility]), 176, cm... Start Date: 08/23/22 Status: Ordered insulin degludec (concentrated) 200 units/mL subcutaneous solution See Instructions, 30 units in the AM and 30 units in the PM 30 days supply, # 75 mL, 3 Refills, Maintenance, 10/15/22 10:03:00 EDT, [facility], Partial fill upon patient request if [...] Weight Start Date: 08/17/22 Status: Ordered Pen [place], 31 G x 8 mm BD Ultra Fine III See Instructions, # 300 each, Refills 6, Tot. Refills 6, Maintenance, use as directed for Type 2 Diabetes Mellitus for 5 injections per day E11.9, 02/08/23 16:10:00 EDT, Supply, 173, cm, 01/16/23 7:41:00 EDT, Height, 104.5, kg, 11/07/22 14:22:00 ED... Start Date: 02/08/23 Stop Date: 10/30/24 Status: Ordered Plavix 75 mg oral tablet [...] Route to Pharmacy Electronically, [facility] ([facility]), 173, cm, 10/12/22 19:31:00 EDT, [...] drug.,... Start Date: 01/16/23 Status: Ordered valsartan 160 mg oral tablet 160 mg, 1, tablet, By Mouth, Daily, # 90 tablet, Refills 0, Tot. Refills 0, Maintenance, 02/12/23 22:19:00 EDT, Route to Pharmacy Electronically, [facility]/pharmacy #[id number], Partial fill upon patient requestif the prescription is for a schedule II opioid channing... Start Date: 02/12/23 Status: Ordered Vitamin D3 50,000 intl units oral capsule 1 capsule = 1,250 mcg, By Mouth, Every week, # 8 capsule, 0 Refills, Maintenance, 06/08/22 12:19:00EST, Capsule, [facility]/pharmacy #[id number], Partial fill upon patient request if the prescription is for a schedule II opioid drug., 176, cm, 06/08/22 12:04:00 E... Start Date: 06/08/22 Stop Date: 08/03/22 Status: Ordered Problem List Condition Confirmation Course Effective Dates Status Health Status Informant Unsteady gait Confirmed Active Amputated toe of left foot Confirmed Active AICD (automatic cardioverter/defibrillato r) present Confirmed 06/21/05 Active BPH - [facility] Confirmed 03/14/21 Active Chronic kidney disease stage 3 Confirmed 05/17/11 Active CAD; s/p CABG 1997, [place] 2006 w/stent; heart transplant 04/30 Confirmed Active DVT, lower extremity Confirmed Active Diabetes mellitus with PVD; stents; [facility] [place] [facility] Confirmed Active Diabetes mellitus with [...] back pain Confirmed 06/15/15 Active Microscopic hematuria; [facility] Confirmed Active Neck pain Confirmed [...] comorbidity Confirmed Active Tremor - Neurology at [facility] Confirmed 02/07/18 Active Type 2 DM with renal manifestations; [facility] Confirmed 05/04/16 Active 1EF 20-25% prior to transplant Social History Social History Type Response Smoking Status Former smoker, quit more than 30 days ago entered on: 10/24/22 Sex Patient Care team information Care Team Personnel Name: Nenita Song Position: [facility] Supv Member Role: Primary Care Nurse Name: Sherice Mariscal RN Position: [facility] RN Member Role: Primary Care Nurse Name: Najma Michael RN Position: [facility] RN Member Role: Primary Care Nurse Name: Mallory Masterson NP Position: Reference Physician Member Role: Primary Care Nurse Address: Address: [address] [place] [address]- [place] Name: Scarlet Rosenthal RN Position: [facility] SN RN Member Role: Primary Care Nurse Name: Dung Chen MD Position: [facility] Physician - Primary Care Member Role: PCP Address: Address: [address] [address]- [place] Name: Heydi Oviedo RN Position: [facility] Hospital Real Estate Investor Member Role: Primary Care Nurse Name: Sandra Cat Position: [facility] Outreach Member Role: Lifetime Consulting Physician Name: Nicki Garcia RN Position: [facility] RN Member Role: Primary Care Nurse Name: Vane Davalos RN Position: [facility] RN Member Role: Primary Care Nurse Name: Belinda Stevenson RN Position: [facility] SN RN Member Role: Primary Care Nurse Name: Luis Peters MD Position: [facility] Renal MD Member Role: Lifetime Consulting Physician Address: Address: [address] [facility] [place] [address]- [place] Name: Zulma Martinez MD Position: [facility] Cardiology MD Member Role: Lifetime Consulting Physician Address: Address: [address] [facility] [address] [place] [address]- [place] Name: Evelyn Jean-Baptiste RN Position: [facility] RN Member Role: Primary Care Nurse Name: Hilda Mcdonald RN Position: [facility] RN Member Role: Primary Care Nurse Care Team Related Persons Name: LUCIA BATEMAN Address: home [address] [place] [address]
--- OUTSIDE RECORDS SUMMARY | 2023-05-15 08:53 | XMS_ITS | Continuity of Care Document ---
Author Name Unknown Organization [facility] Address [address], [address], [address] [place] [address]- Care Team Providers Care Home Health Clinician Name Role Phone Dung Chen MD Primary Care Physician [phone] Encounter [facility] Date(s): 08/17/20 - 09/16/20 [facility] [address], [address], [address] [place] [address] Attending Physician: Scott Mcintosh Admitting Physician: Scott Mcintosh Referring Physician: AdmtrScott Allergies, Adverse Reactions, Alerts [...] he received this seasons flu vaccine at [place]. 3Admin Note: Patient states he received pneumovax in 2004 at [place]. Medications aspirin 81 mg oral tablet 1 tablet = 81 mg, By Mouth, Daily, # 30 tablet, 0 Refills, Maintenance, 04/07/17 12:54:17, Tablet Start Date: 04/07/17 Status: Ordered Ativan 1 mg oral tablet See Instructions, 1 tablet By Mouth 30 minutes before MRI. May repeat once at time of test., # 2 tablet, 0 Refills, Maintenance, 08/17/20 17:02:00 EDT, [facility]/pharmacy #[id number], Partial fill upon patient request if the [...] Refills, Maintenance, 06/09/19 9:51:00 EST, EC Capsule, [facility]/pharmacy #[id number], 175, cm, 12/05/18 15:23:00 [...] 05/19/20 10:59:00 EST, Route to Pharmacy Electronically, [facility]/pharmacy #[id number], Partial fill upon patient [...] Compound Start Date: 10/15/18 Status: Ordered Pen [place], 31 G x 5 mm BD Ultra Fine III See Instructions, # 120 each, Refills 6, Tot. Refills 6, Maintenance, injects 4 times a day E11.65,08/24/20 9:11:00 EDT, fax [phone], Compound, 176, cm, 08/17/20 16:06:00 EDT, Height, 94.72, kg, 10/09/19 14:08:00 EDT, Dry Weight Start Date: 08/24/20 Status: Ordered Plavix 75 mg oral tablet 75 mg, 1, tablet, By Mouth, Daily, # 90 tablet, Refills 3, Tot. Refills 3, Maintenance, 01/28/20 14:36:00 EDT, Route to Pharmacy Electronically, [facility]/pharmacy #[id number], 176, cm, 01/06/20 19:56:00 [...] 05/27/19 16:08:00 EST, Route to Pharmacy Electronically, [facility]/pharmacy #[id number], 175, cm, 12/05/18 15:23:00 [...]
--- OUTSIDE RECORDS SUMMARY | 2023-05-15 08:53 | XMS_ITS | Continuity of Care Document ---
Author Name Unknown Organization [facility] Address [address] [place] [address]- Care Team Providers Care Piping Blocker Name Role Phone Dung Chen MD Primary Care Physician Encounter [facility] [place] Date(s): 10/24/22 - 11/23/22 [facility] [address] [place] [id number] Attending Physician: Admtr, Ar8 Admitting Physician: Admtr, Ar8 Referring Physician: Admtr, Ar8 Allergies, Adverse Reactions, Alerts Substance Reaction Severity Status lisinopril Active Immunizations Given and Recorded Vaccine Date Status Refusal Reason SARS-CoV-2 mRNA ([id number]) vax 07/18/21 Recorded SARS-CoV-2 (COVID-19) mRNA BNT-162b2 [...] Quinn rded influenza virus vaccine, inactivated 01/24/14 Qunin rded influenza virus vaccine, inactivated 03/27/12 Quinn [...] he received this seasons flu vaccine at [place]. 3Admin Note: Patient states he received pneumovax in 2004 at [place]. Medications amLODIPine 10 mg oral tablet 10 mg, 1, tablet, By Mouth, Daily, # 90 tablet, Refills 3, Tot. Refills 3, Maintenance, 11/03/22 11:30:00 EDT, Route to Pharmacy Electronically, [facility] ), Partial fill upon patient request if the prescription is for... Start Date: 11/03/22 Status: Ordered apixaban Starter Pack 5 mg oral tablet = 10 mg, By Mouth, 2 times a day, first dose on 10/15 at 2100, # 1 pack/packet, 0 Refills, Maintenance, 10/15/22 10:04:00 EDT, Tablet, [facility], Partial fill upon patient request if theprescription is for a schedule II opioid drug., 173... Start Date: 10/15/22 Status: Ordered aspirin 81 mg oral delayed release tablet 81 mg, 1, tablet, By Mouth, Daily, # 30 tablet, Refills 0, Tot. Refills 0, Maintenance, 06/08/21 11:45:00 EST, Route to Pharmacy Electronically, [facility]/pharmacy #[id number], Partial fill upon patient request if the [...] Date: 09/25/21 Status: Ordered Freestyle Nona 2 [place] Freestyle Nona 2 [place], See Instructions, # 1 each, Refills 0, [...] Maintenance, 08/23/22 12:58:00 EDT, [facility] 176, cm... Start Date: 08/23/22 Status: Ordered insulin degludec (concentrated) 200 units/mL subcutaneous solution See Instructions, 20 units in the AM and 30 units in the PM 30 days supply, # 75 mL, 3 Refills, Maintenance, 10/15/22 10:03:00 EDT, [facility], Partial fill upon patient [...] Weight Start Date: 08/17/22 Status: Ordered Pen [place], 31 G x 8 mm BD Ultra Fine III See Instructions, # 300 each, Refills 6, Tot. Refills 6, Maintenance, use as directed for Type 2 Diabetes Mellitus for 5 injections per day E11.9, 12/09/21 9:52:00 EDT, Supply, 175.3, cm, 12/06/21 7:36:00 EDT, Height, 95.3, kg, 12/06/21 7:36:00 EDT... Start Date: 12/09/21 Stop Date: 08/31/23 Status: Ordered Pen [place], 32 G x 4 mm BD Ultra [...] Route to Pharmacy Electronically, [facility]), 173, cm, 10/12/22 19:31:00 EDT, [...] r) present Confirmed 06/21/05 Active BPH - [facility] Confirmed 03/14/21 Active Chronic kidney disease stage 3 Confirmed 05/17/11 Active CAD; s/p CABG 1997, [place] 2006 w/stent; heart transplant 04/30 Confirmed Active DVT, lower extremity Confirmed Active Diabetes mellitus with PVD; [facility]; [facility] [place] [facility] Confirmed Active Diabetes mellitus with [...] back pain Confirmed 06/15/15 Active Microscopic hematuria; [facility] Confirmed Active Neck pain [...] Confirmed 06/21/05 Active [facility] Confirmed 02/07/18 Active Type 2 DM with renal manifestations; [facility] Confirmed 05/04/16 Active 1EF 20-25% prior to transplant Social History Social History Type Response Smoking Status Former smoker, quit more than 30 days ago entered on: 10/24/22 Sex Patient Care team information Care Team Personnel Name: Nenita Song Position: [facility] RN Supv Member Role: Primary Care Nurse Name: Sherice Mariscal RN Position: [facility] RN Member Role: Primary Care Nurse Name: Najma Michael RN Position: [facility] RN Member Role: Primary Care Nurse Name: Mallory Masterson NP Position: Reference Physician Member Role: Primary Care Nurse Address: Address: [address] [place] [address]- Name: Scarlet Rosenthal RN Position: [facility] RN Member Role: Primary Care Nurse Name: Khurram Hansen RN Position: [facility] RN Member Role: Primary Care Nurse Name: Dung Chen MD Position: [facility] Physician - Primary Care Member Role: PCP Address: Address: [address] [place] [address]- [place] Name: Heydi Oviedo RN Position: [facility] Hospital Hand Candle Molder Member Role: Primary Care Nurse Name: Sandra Cat Position: [facility] Outreach Member Role: Lifetime Consulting Physician Name: Nicki Garcia RN Position: [facility] RN Member Role: Primary Care Nurse Name: Vane Davalos RN Position: [facility] RN Member Role: Primary Care Nurse Name: Luis Peters MD Position: [facility] Renal MD Member Role: Lifetime Consulting Physician Address: Address: [address] [facility] [place] [address]- [place] Name: Zulma Martinez MD Position: [facility] Cardiology MD Member Role: Lifetime Consulting Physician Address: Address: [address] [facility] [address] [place] [address]- [place] Name: Evelyn Jean-Baptiste RN Position: S RN Member Role: Primary Care Nurse Name: Hilda Mcdonald RN Position: [facility] RN Member Role: Primary Care Nurse Care Team Related Persons Name: BATEMANLUCIA Address: home [address] [place] [address]
--- OUTSIDE RECORDS SUMMARY | 2023-05-15 08:53 | XMS_ITS | Continuity of Care Document ---
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 Name Role Phone Dung Chen MD Primary Care Physician [phone] Encounter [facility] Date(s): 03/02/23 - 03/06/[address] [address] Discharge Disposition: Disch/Trans to IP Rehab or unit w/in Hos Attending Physician: Jena Mcfadden MD Admitting Physician: Raina CALLOWAY, Julian Dumont Referring Physician: Not on Staff, Referring MD [...] virus vaccine, inactivated 03/07/06 Quinn rded SARS-CoV-2(COVID-19)mRNA-LNP vac([id number]) 02/06/23 Recorded tetanus/diphtheria/pertussis, acel(Tdap) 2 12/08/22 Given tetanus/diphtheria/pertussis, acel(Tdap) 03/27/12 Recorded pneumococcal 20-valent conjugate vaccine 3 12/08/22 Given [id number] 12y+ bivalent booster vax 04/15/22 Recorded SARS-CoV-2 mRNA ([id number]) vax 07/18/21 Recorded SARS-CoV-2 (COVID-19) mRNA BNT-162b2 [...] Exp. #) SEP 23 2Result Comment: [facility] [id number] 3Result Comment: [facility] [id number] 4Admin Note: Pt states he received this seasons flu vaccine at [place]. 5Admin Note: Patient states he received pneumovax in 2004 at [place]. Medications amLODIPine 10 mg oral tablet 10 mg, 1, tablet, By Mouth, Daily, # 90 tablet, Refills 3, Tot. Refills 3, Maintenance, 11/03/22 11:30:00 EDT, Route to Pharmacy Electronically, [facility] ([facility] ), Partial fill upon patient request if the prescription is for... Start Date: 11/03/22 Status: Ordered aspirin 81 mg oral delayed release tablet 81 mg, 1, tablet, By Mouth, Daily, # 30 tablet, Refills 0, Tot. Refills 0, Maintenance, 06/08/21 11:45:00 EST, Route to Pharmacy Electronically, [facility]/pharmacy #[id number], Partial fill upon patient request if the prescription is for a schedule II opioid drug... Start Date: 06/08/21 Stop Date: 07/08/21 Status: Ordered cefpodoxime 200 mg oral tablet = 200 mg, By Mouth, Every 12 hours, # 7 tablet, 0 Refills, Acute 03/10/23 0:01:00 EST, 03/06/23 21:00:00 EST, Tablet, . Start Date: 03/06/23 Stop Date: 03/10/23 Status: Ordered duloxetine 20 mg oral enteric [...] 3 Refills, Maintenance, 01/19/23 18:26:00 EDT, [facility] [place],[facility], Partial fill upon patient request if the prescription is for a schedule II opioid drug., 1 sprays Nares, Both Daily, 173, cm, 10/0... Start Date: 01/19/23 Status: Ordered gabapentin 300 mg oral capsule 300 mg, Capsule, By Mouth, 03/06/23 9:00:00 EST Start Date: 03/06/23 Stop Date: 03/06/23 Status: Completed gabapentin 300 mg oral capsule 300 mg, Capsule, By Mouth, 03/06/23 15:00:00 EST Start Date: 03/06/23 Stop Date: 03/06/23 Status: Completed gabapentin 600 mg oral tablet 1 tablet [...] 400 <<... Start Date: 03/06/23 Status: Ordered losartan 50 mg oral tablet 50 mg, Tablet, By Mouth, TANO, 03/06/23 14:41:00 EST Start Date: 03/06/23 Stop Date: 03/06/23 Status: Completed mycophenolic acid 360 mg oral delayed release [...] opioid drug. Start Date: 03/03/23 Status: Ordered oxyCODONE 5 mg oral tablet 5 mg, Tablet, By Mouth, Every 6 hours, PRN for Pain , Severe, Routine, 03/03/23 10:50:00 EST Start Date: 03/03/23 Stop Date: 03/07/23 Status: Discontinued pantoprazole 40 mg oral delayed release tablet [...] 12/08/22 11:17:00 EDT, Solution, [facility] ([facility]), Partial fillupon patient request if the prescription is for a s... Start Date: 12/08/22 Status: Ordered valsartan 160 mg oral tablet 160 mg, 1, tablet, By Mouth, Daily, # 90 tablet, Refills 0, Tot. Refills 0, Maintenance, 02/12/23 22:19:00 EDT, Route to Pharmacy Electronically, [facility]/pharmacy #[id number], Partial fill upon patient requestif the prescription is for a schedule II opioid channing... Start Date: 02/12/23 Status: Ordered Problem List Condition Confirmation Course Effective Dates Status Health Status Informant Unsteady gait Confirmed Active Amputated toe of left foot Confirmed Active Weakness generalized Confirmed Active AICD (automatic cardioverter/defibrillato r) present Confirmed 06/21/05 Active BPH - [facility] Confirmed 03/14/21 Active Chronic kidney disease stage 3 Confirmed 05/17/11 Active CAD; s/p CABG 1997, [place] 2006 w/stent; heart transplant 04/30 Confirmed Active Diabetes mellitus with PVD; stents; [facility] Confirmed Active Diabetes mellitus with [...] back pain Confirmed 06/15/15 Active Microscopic hematuria; [facility] Confirmed Active Neck pain Confirmed [...] B12 Confirmed Active Tremor - Neurology at [facility] Confirmed 02/07/18 Active Type 2 DM with renal manifestations; [facility] Confirmed 05/04/16 Active Vitamin D deficiency Confirmed Active 1EF 20-25% prior to transplant Results Orders for Microbiology Reports Name Date Blood Culture #2 03/02/23 Blood Culture 03/02/23 Microbiology Reports TEST:Blood Culture, Second Order STATUS:Unauthenticated BODY SITE: SOURCE:Blood COLLECTED DATE/TIME:03/02/23 9:33 PM Blood Culture, Second Order SPECIMEN DESCRIPTION : BLOOD r arm SPECIAL REQUESTS : NONE CULTURE : NO GROWTH 3 DAYS REPORT STATUS : PRELIMINARY REPORT TEST:Blood Culture STATUS:Unauthenticated BODY SITE: SOURCE:Blood COLLECTED DATE/TIME:03/02/23 8:44 PM Blood Culture SPECIMEN DESCRIPTION : BLOOD LAC SPECIAL REQUESTS : NONE CULTURE : NO GROWTH 4 DAYS REPORT STATUS : PRELIMINARY REPORT Radiology Reports * Exam Date Time Procedure Performing Provider Status 03/02/23 6:09 PM Chest 2 Views Frontal and Lat Nilsa Gambino; Auth (Verified) Notes: (Chest 2 Views Frontal and Lat) Reason For Exam: Chest Pain;Other: RESULT: Chest 2 Views Frontal and Lat Chest 2 Views Frontal and Lat Hx of Present Illness: pt c o cough x 4 days, weakness, poor PO intake, chest pain u[on coughing. Hx heart transplant. Seen at urgent care and sent here for concerns of dehydration; Reason: Other:; Chest Pain; Clinical Question(s): Other: COMPARISON: 09/02/2022. FINDINGS: LINES AND TUBES: None. LUNGS AND PLEURA: The lungs are hypoexpanded. Left lung base opacity. Questionable hazy opacity in the right lung base. No pleural effusion. No pneumothorax. HEART, MEDIASTINUM AND AIDA: The cardiomediastinal silhouette is enlarged. BONES AND SOFT TISSUES: No acute abnormality. IMPRESSION: 1. Left lung base opacity concerning for airspace disease. 2. Hazy opacity in the right lung base which may represent dependent change. 3. Enlarged cardiomediastinal silhouette. WSN: [id number] Ordering Physician: Bernardino Suazo Dictated By: Kayli Sprague MD Dictated Date/Time: 03/02/23 6:11 pm Reviewed By: Kayli Sprague MD Signed By: Kayli Sprague MD Signed Date/Time: 03/02/23 6:11 pm Transcribed By: MAVIS Transcribed Date/Time: 03/02/23 6:10 pm Vital Signs Most recent to oldest [Reference Range]: 1 2 3 4 Height 173 cm (03/06/23 7:33 AM) 173 cm (03/06/23 5:38 AM) 173 cm (03/05/23 7:43 PM) Weight 102.6 kg (03/03/23 3:33 PM) 102.6 kg (03/02/23 5:32 PM) Oxygen Saturation [94-100 %] 99 % (03/06/23 7:33 AM) 92 % *L* (03/06/23 5:38 AM) 100 % (03/05/23 7:43 PM) Pulse Rate [55-90 bpm] 91 bpm *H* (03/06/23 7:33 AM) 88 bpm (03/06/23 5:38 AM) 96 bpm *H* (03/05/23 7:43 PM) Body Mass Index [18.5-24.99 kg/m2] 34.28 kg/m2 *>HHI* (03/03/23 3:33 PM) Blood Pressure [90-138/55-84 mm Hg] 159/99mm Hg *H* (03/06/23 2:52 PM) 157/78mm Hg *H* (03/06/23 7:33 AM) 160/74mm Hg *H* (03/06/23 5:38 AM) Respiratory Rate [16-30 br/min] 18 br/min (03/06/23 2:52 PM) 18 br/min (03/06/23 2:52 PM) 18 br/min (03/06/23 8:40 AM) 18 br/min (03/06/23 8:40 AM) Temperature [96.8-100.4 DegF] 98.1 DegF (03/06/23 7:33 AM) 97.7 DegF (03/06/23 5:38 AM) 97.7 DegF (03/05/23 7:43 PM) Liters per Minute 2 L/min (03/03/23 10:15 AM) 2 L/min (03/03/23 4:26 AM) Mode of Delivery (Oxygen) Room air (03/06/23 7:33 AM) Room air (03/06/23 5:38 AM) Room air (03/05/23 7:43 PM) Blood pressure sites Arm, right (03/06/23 7:33 AM) Arm, right (03/06/23 5:38 AM) Arm, left (03/05/23 7:43 PM) Temperature Route Oral (03/06/23 7:33 AM) Oral (03/06/23 5:38 AM) Oral (03/05/23 7:43 PM) Dry Weight 102.6 kg (03/03/23 3:33 PM) 102.6 kg (03/02/23 5:32 PM) Dry Weight Obtained Via Standing scale (03/02/23 5:32 PM) Social History Social History Type Response Smoking Status Former smoker, quit more than 30 days ago entered on: 10/24/22 Sex Admission evaluation note * Julian Paris MD, I: PERFORM, MODIFY, MODIFY, MODIFY, MODIFY Event Display: Admission Note Authored Date: [id number] Patient: ??REJI BATEMAN ? Age:??72 Years?Sex:??Male?:??1950?? History of Present Illness Patient is a 72-year-old male history of heart transplant 2014 at [facility] on tacrolimus and mycophenolate, lower extremity infections, hypertension hyperlipidemia DM2 hyperparathyroidism presenting today for shortness of breath and cough worsening over the last about a week butvery severe over the last 3 days unable to get out of bed not eating or drinking unable to walk dueto shortness of breath. ??No chest pain no increased lower extremity edema. ??No measured fevers. ??No nausea vomiting. ??In the emergency room patient was afebrile, tachycardic, normotensive.?? Lab work remarkable for leukocytosis??and acute kidney injury.?? Chest x-ray showed??left??base infiltrate.?? Patient received ceftriaxone and doxycycline for presumed community-acquired pneumonia.?? Emergency room physician contacted [facility] transplant team.?? They felt comfortable keeping patient at [facility]??for treatment of pneumonia.?? At the time of my exam patient looks comfortable.?? He is coughing a lot. ??Denies chest pain. Review of Systems Constitutional:??No weight loss, fever, chills, weakness or fatigue. Allergy/Immune: Denies any??Eczema or hives Eyes:??No visual loss, blurred vision, double vision or yellow sclera ENT:??No hearing loss, sneezing, congestion, runny nose or sore throat. Respiratory:??Cough??productive of whitish phlegm Cardiovascular:??No chest pain, chest pressure or chest discomfort. No palpitations or pedal edema. Gastrointestinal:??No anorexia, nausea, vomiting or diarrhea. No abdominal pain or blood in stool. Genitourinary:??No burning micturition. No urinary frequency or incontinence. Neurologic:??No headache, dizziness, syncope, unilateral weakness, ataxia, numbness or tingling in the extremities. No change in bowel or bladder control. Musculoskeletal:??No muscle pain, back pain, joint pain or stiffness. Hematologic/Lymphatics:??No bleeding or bruising. No painful lymph nodes. Skin:??No rash or itching. Endocrine:??No reports of sweating. No cold or heat intolerance. No polyuria or polydipsia. Psychiatric:??No depression or anxiety. Objective Measurements?? Height: 173 cm (03/02/23) Weight: 102.6 kg (03/02/23) Dry Weight: 102.6 kg (03/02/23) ? Vital Signs?? Temperature: 97.6 DegF (03/02/23 16:03:00) Temperature Route: Temporal (03/02/23 16:03:00) Pulse Rate:??100 bpm??High (03/02/23 17:32:00) Respiratory Rate: 22 br/min (03/02/23 17:32:00) Systolic Blood Pressure: 134 mm Hg (03/02/23 17:32:00) Diastolic Blood Pressure: 66 mm Hg (03/02/23 17:32:00) Blood pressure sites: Arm, left (03/02/23 17:32:00) Mean Arterial Pressure: 89 mm Hg (03/02/23 17:32:00) Pulse Pressure: 68 mm Hg (03/02/23 17:32:00) Oxygen Saturation:??92 %??Low (03/02/23 17:32:00) Mode of Delivery (Oxygen): Room air (03/02/23 17:32:00) ? Pain Scores 1 - 10 Pain Scale Score: 6 (17:32) ? Intake/Output? No Data Available ? Physical Exam Constitutional: Alert, in no distress. Mental Status: Oriented to person, place and time. Head: Normocephalic. Eyes: Pupils are equal, round and reactive to light. Extraocular muscles intact. Ear, Nose and Throat: Oropharynx clear, mucous membranes moist. Ears and nose without masses, lesions or deformities. Trachea midline. Neck: Supple, Full range of motion. Respiratory: Bilateral rhonchi. Cardiovascular: S1 S2 regular. No murmurs, rubs or gallops. Gastrointestinal: Abdomen soft, non-tender, non-distended. Normal bowel sounds. No pulsatile mass. No hepatosplenomegaly. Genitourinary: No costovertebral angle tenderness. Neurologic: Cranial nerves II-XII grossly intact. No focal neurological deficits. Flexor plantar response. Moves all extremities spontaneously. Sensation intact bilaterally. Skin: No rashes or lesions. No petechiae or purpura.?? Musculoskeletal: No cyanosis or clubbing. No gross deformities. Normal range of motion. Heme/Lymphatics/Immun: Palpation of neck reveals no swelling or tenderness of neck nodes. Palpationof groin reveals no swelling or tenderness of groin nodes. Psychiatric: Normal mood and affect Assessment/Plan ?? Patient is a 72-year-old male history of heart transplant 2014 at [facility] on tacrolimus and mycophenolate, lower extremity infections, hypertension hyperlipidemia DM2 hyperparathyroidism presenting today for shortness of breath and cough worsening over the last about a week butvery severe over the last 3 days unable to get out of bed not eating or drinking unable to walk dueto shortness of breath. ??No chest pain no increased lower extremity edema. ??No measured fevers. ??No nausea vomiting. ??In the emergency room patient was afebrile, tachycardic, normotensive.?? Lab work remarkable for leukocytosis??and acute kidney injury.?? Chest x-ray showed??left??base infiltrate.?? Patient received ceftriaxone and doxycycline for presumed community-acquired pneumonia.?? Emergency room physician contacted [facility] transplant team.?? They felt comfortable keeping patient at [facility]??for treatment of pneumonia.?? At the time of my exam patient looks comfortable.?? He is coughing a lot. ??Denies chest pain. ?? 1. ??Shortness of breath??cough productive of whitish phlegm,??left base infiltrate on chest x-ray. ??Leukocytosis.?? Community-acquired pneumonia is likely diagnosis.?? We will continue ceftriaxone and doxycycline.?? Patient tachycardic??but blood pressure is stable.?? Lactate is normal.?? Received 3 days of IV fluids.?? Repeat basic metabolic panel and CBC tomorrow.?? We will give Robitussinas needed. ?? 2.?? Cardiac transplant 11 years ago.?? Seems to be stable.?? Emergency room physician discussed management with [facility] transplant team.?? They felt comfortable keeping patient at [facility].?? We will continue tacrolimus 2 mg in the morning, 2.5 mg at bedtime,??Myfortic??360 mg twice a day, prednisone 5 mg once a day.?? We will check tacrolimus level in the morning.?? Contact [facility] transplant team as needed.??High-sensitivity troponin??elevated but there is no delta.?? Same range as??before.?? Patient denies chest pain. ??EKG with right bundle branch block, no changes. Continu e??clopidogrel,??aspirin,??rosuvastatin. ? 3.?? Type 2 diabetes.?? Substitute long-acting insulin with Lantus 25 units in the morning, 20??units at bedtime. ??Will cover with insulin sliding scale. ?? 4.?? Acute kidney injury. ??Likely related to active infection and wound depletion.?? Hold valsartan.?? Patient received 3 L of IV fluids.?? Repeat basic metabolic panel tomorrow.?? We will continue Trulicity after discharge. ?? 5.?? Hypertension.?? Continue amlodipine. ??Hold??valsartan??n in the view of acute kidney injury.?? Patient is on fluticasone 0.1 mg once a day. ?? 6.?? Depression.?? Continue duloxetine??40 mg at bedtime.?? Mood is stable. ?? 7.?? DVT prophylaxis with Lovenox 40 mg once a day. ?? 8. ??CODE STATUS: Full resuscitation. Histories Allergies Allergies ?(Active and Proposed Allergies Only) lisinopril? (Severity: Unknown severity, Onset: Unknown) ? Past Medical History/Problem List Active Problems??(46) AICD (automatic cardioverter/defibrillator) present Amputated toe of left foot BPH - [facility] CAD; s/p CABG 1997, [place] 2006 w/stent; heart transplant 04/30 Chronic kidney disease stage 3 Colon polyp Diabetes mellitus with cataract Diabetes mellitus with PVD; stents; [facility] Diabetic foot ulcer; Dr Ralph Dry eyes DVT, lower extremity Dysautonomia Erectile dysfunction Erosive gastropathy - 08/05 EGD; normal EGD 12/06 Esophageal dysmotility DAY (generalized anxiety disorder) Gastroesophageal reflux disease Glaucoma 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9) with comorbidity Tremor - Neurology at [facility] Type 2 DM with renal manifestations; [facility] [place] Unsteady gait ? Past Surgical History Procedure on shoulder, R: 02/13/23 Amputation of toe, L 5th: 09/2022 Angioplasty RLE: 08/2022 Esophagogastroduodenoscopy with biopsy & esophageal dilation: 12/06/21 Operation on lumbar spine: 09/21/20 Surgical procedure on cervical spine: 12/10/19 Insertion of popliteal artery stent: 2018 Insertion of popliteal artery stent: 2017 Cataract surgery - R: 09/18/14 Heart transplant: 04/17/13 LVAD - Implantation of left ventricular assist device: 2011 CABG - Coronary artery bypass graft: 1997 Excision of squamous cell carcinoma ? Social History Alcohol Details:??Use: Past. Employment/School Details:??Status: Retired. Home/Environment Details:??Living situation: Home/Independent. ??Lives with: Spouse. Nutrition/Health Details:??Diet: Regular. Sexual Details:??Gender identity: Identifies as male. Substance Abuse Details:??Use: Never. Tobacco Details:??Use: Former smoker, quit more than 30 days ago. Details:??Former smoker, Tobacco user in household: No. ??Other: Quit 1997. Electronic Cigarette/Vaping Details:??Electronic Cigarette Use: Never. ? Family History Mother (): Cancer; Cataract; Macular degeneration of both eyes Father (): Cancer Brother: Cancer of prostate ? Medications Home Medications Amlodipine (amLODIPine 10 mg oral tablet)?10?Milligram?1?tablet?By Mouth?Daily Aspirin (aspirin 81 mg oral delayed release tablet)?81?Milligram?1?tablet?By Mouth?Daily?for 30?Days Cholecalciferol (Vitamin D3 50,000 intl units oral capsule)?1?capsule?1,250?Microgram?By Mouth?Every week?for 8?week(s) Clopidogrel (Plavix 75 mg oral tablet)?75?Milligram?1?tablet?By Mouth?Daily dulaglutide (Trulicity Pen 0.75 mg/0.5 mL subcutaneous solution)?0.5?Milliliter?0.75?Milligram?Subcutaneous Injection?Every week?rotate injection sites dulaglutide (Trulicity Pen 1.5 mg/0.5 mL subcutaneous solution)?0.5?Milliliter?1.5?Milligram?Subcutaneous Injection?Every week?rotate injection sites Duloxetine (duloxetine 20 mg oral enteric coated capsule)?1?capsule?20?Milligram?By Mouth?2 times a day Durable Medical Equipment (Freestyle Nona Monitor)?See Instructions?Use with Freestyle 14 day Sensor to monitor Blood Glucose. ??E11.65 Durable Medical Equipment (Freestyle Nona Sensor)?See Instructions?e11.65, use with freestyle nona 14 day reader for frequent glucose monitoring, change every 14 days, 28 day supply Durable Medical Equipment (Freestyle Nona 2 Sensors)?See Instructions?Use to monitor blood glucose, scan sensor upon waking, before meals and at bedtime. E11.65 Durable Medical Equipment (Freestyle Nona 2 [place])?See Instructions?Use to monitor blood glucose, scan sensor upon waking, before meals and at bedtime. E11.65 Durable Medical Equipment ([place], 31 G x 8 mm BD Ultra Fine III)?See Instructions?for 90?Days?use as directed for Type 2 Diabetes Mellitus for 5 injections per dayE11.9 Fluticasone Nasal (fluticasone 50 mcg/inh nasal spray)?1?spray(s)?Nares, Both?Daily Gabapentin (gabapentin 600 mg oral tablet)?1?tab(s)?600?Milligram?By Mouth?3 times a day insulin degludec (insulin degludec (concentrated) 200 units/mL subcutaneous solution)?See Instructions?30 ??units in the AM and 30 units in the PM 30 days supply Insulin Lispro (Humalog Cartridge 100 units/mL subcutaneous injection)?See Instructions?INSERT CARTRIDGE INTO INPEN DEVICE AND INJECT ??SUBCUTANEOUSLY 16 UNITS 3 ??TIMES DAILY WITH MEALS - ??MAX DAILY DOSE: 48 UNITS Magnesium Oxide (magnesium oxide 400 mg oral tablet)?1?tab(s)?400?Milligram?By Mouth?2 times a day Mycophenolate Sodium (mycophenolic acid 360 mg oral delayed release tablet)?2?tab(s)?720?Milligram?By Mouth?2 times a day Pantoprazole (pantoprazole 40 mg oral delayed release tablet)?1?tab(s)?By Mouth?2 timesa day PredniSONE (predniSONE 5 mg oral tablet)?1?tab(s)?5?Milligram?By Mouth?Daily Rosuvastatin (rosuvastatin 20 mg oral tablet)?1?tab(s)?20?Milligram?By Mouth?Daily Tacrolimus (tacrolimus 1 mg oral capsule)?2.5?capsule?2.5?Milligram?By Mouth?2 times a day?3 in the AM & 3 in the Evening Trazodone (traZODone 100 mg oral tablet)?2?tablet?By Mouth?Daily at bedtime?as needed? NEEDED FOR INSOMNIA Valsartan (valsartan 160 mg oral tablet)?160?Milligram?1?tablet?By Mouth?Daily ? Inpatient Medications Medications (27) Active SCHEDULED: (18) Amlodipine 10 mg Tablet (amLODIPine 10 mg oral tablet) ??10 mg, By Mouth, Daily Aspirin 81 mg EC Tablet (aspirin 81 mg oral delayed release tablet) ??81 mg, By Mouth, Daily Clopidogrel 75 mg Tablet (Plavix 75 mg oral tablet) ??75 mg, By Mouth, Daily Doxycycline 100 mg Inj (Doxycycline IVPB) ??100 mg, IVPB, Once Duloxetine 20 mg Capsule (DULoxetine Capsule) ??40 mg, By Mouth, Daily at bedtime Enoxaparin 40 mg Inj (Enoxaparin Inj) ??40 mg 0.4 mL, Subcutaneous Injection, Every 24 hours Fludrocortisone 0.1 mg Tablet (fludrocortisone 0.1 mg oral tablet) ??0.1 mg, By Mouth, Daily Gabapentin 300 mg Capsule (gabapentin 300 mg oral capsule) ??600 mg, By Mouth, 3 times a day Insulin Glargine 100 units/mL Inj (Lantus Inj) ??25 units 0.25 mL, Subcutaneous Injection, Daily before breakfast Insulin Glargine 100 units/mL Inj (Lantus Inj) ??20 units 0.2 mL, Subcutaneous Injection, Daily at bedtime Insulin Lispro 100 units/mL Inj (3mL) (Insulin LISPRO Sliding Scale) ??2-10 units, Subcutaneous Injection, 3 times a day before meals Mycophenolate Sodium 360 mg ER Tablet (Myfortic 360 mg oral delayed release tablet) ??360 mg, By Mouth, 2 times a day NaCl 0.9% Flush 3ml (NaCL 0.9% Flush) ??3 mL, IV Push, Every 8 hours Pantoprazole 40 mg EC Tablet (pantoprazole 40 mg oral delayed release tablet) ??40 mg, By Mouth, 2 times a day PredniSONE 5 mg Tablet (predniSONE 5 mg oral tablet) ??5 mg, By Mouth, Daily Rosuvastatin 20 mg Tablet (rosuvastatin 20 mg oral tablet) ??20 mg, By Mouth, Daily Tacrolimus 0.5 mg Capsule (tacrolimus 1 mg oral capsule) ??2.5 mg, By Mouth, Daily at bedtime Tacrolimus 1 mg Capsule (tacrolimus 1 mg oral capsule) ??2 mg, By Mouth, Daily before breakfast CONTINUOUS: (0) PRN: (9) Acetaminophen 325 mg Tablet (Acetaminophen Tablet) ??650 mg, By Mouth, Every 4 hours Dextromethorphan-Guaifenesin 20 mg-200 mg/10 mL Liqu UD (Robitussin DM Liquid) ??10 mL, By Mouth, Every 4 hours Docusate Sodium 100 mg Capsule (Docusate Sodium Capsule) ??100 mg 1 capsule, By Mouth, 2 times a day Melatonin 3 mg Tablet (Melatonin Tablet) ??3 mg, By Mouth, Daily at bedtime NaCl 0.9% Flush 3ml (NaCL 0.9% Flush) ??3 mL, IV Push, Every 8 hours Polyethylene Glycol 17 Gm Powder (MiraLax Powder) ??17 Gm 1 pack/packet, By Mouth, Daily Senna Tablet ??8.6 mg 1 tablet, By Mouth, 2 times a day Simethicone 80 mg Chewable Tablet (Simethicone Tablet) ??80 mg, Chew, 3 times a day Trazodone 50 mg Tablet (traZODone 50 mg oral tablet) ??200 mg, By Mouth, Daily at bedtime ? Results Recent Labs BLOOD COUNT & DIFF WBC 12.2 k/mm3 (High)?? 03/02/2023 17:53 RBC 4.06 m/mm3 (Low)?? 03/02/2023 17:53 Hgb 10.8 Gm/dL (Low)?? 03/02/2023 17:53 Hct 34.1 % (Low)?? 03/02/2023 17:53 MCV 84.0 femtoliters ()?? 03/02/2023 17:53 MCH 26.6 pg (Low)?? 03/02/2023 17:53 MCHC 31.7 g/dL (Low)?? 03/02/2023 17:53 Platelet Count 160 k/mm3 ()?? 03/02/2023 17:53 RDW-SD 50.6 femtoliters (High)?? 03/02/2023 17:53 MPV 9.2 femtoliters (Low)?? 03/02/2023 17:53 Nucleated RBC (Automated) 0.0 #/100 WBC'S ()?? 03/02/2023 17:53 Abs. NRBC 0.0 k/mm3 ()?? 03/02/2023 17:53 Abs. Neut 11.2 k/mm3 (High)?? 03/02/2023 17:53 Abs. Lymph 0.3 k/mm3 (Low)?? 03/02/2023 17:53 Abs. [place] 0.5 k/mm3 ()?? 03/02/2023 17:53 Abs. Eo 0.1 k/mm3 ()?? 03/02/2023 17:53 Abs. Baso 0.0 k/mm3 ()?? 03/02/2023 17:53 Neut % 92.0 % (High)?? 03/02/2023 17:53 Lymph % 2.5 % (Low)?? 03/02/2023 17:53 [place] % 4.4 % (Low)?? 03/02/2023 17:53 Eos % 0.5 % ()?? 03/02/2023 17:53 Baso % 0.2 % ()?? 03/02/2023 17:53 Imm Gran 0.4 % ()?? 03/02/2023 17:53 Abs. Imm Gran 0.1 k/mm3 ()?? 03/02/2023 17:53 ?? CARDIAC Nt-Probnp 756 pg/mL (High)?? 03/02/2023 17:53 High Sensitivity Troponin (HSTnT) 68 ng/L (Critical)?? 03/02/2023 21:05 ?? CHEM GENERAL Sodium 138 mmol/L ()?? 03/02/2023 17:53 Potassium 4.1 mmol/L ()?? 03/02/2023 17:53 Chloride 98 mmol/L ()?? 03/02/2023 17:53 Bicarbonate Level 26 mmol/L ()?? 03/02/2023 17:53 Anion Gap 14 ()?? 03/02/2023 17:53 Glucose Level 196 mg/dL (High)?? 03/02/2023 17:53 BUN 32 mg/dL (High)?? 03/02/2023 17:53 Creatinine-Blood 1.5 mg/dL (High)?? 03/02/2023 17:53 Estimated GFR Creatinine 49 ML/MIN/1.73 M2 ()?? 03/02/2023 17:53 Calcium 8.7 mg/dL ()?? 03/02/2023 17:53 Lactate 1.2 mmol/L ()?? 03/02/2023 21:32 ?? HEME OTHER Hold Blue Top SPECIMEN DISCARDED AFTER 4 HOURS. ()?? 03/02/2023 17:53 ?? MISC. CHEMISTRY Hold Miller Top SPECIMEN DISCARDED AFTER 1 WEEK ()?? 03/02/2023 17:53 ?? URINE OTHER Est Creatinine Clearance 43.86 mL/min ()?? 03/02/2023 18:48 ? EKG study * Event Display: ECG 12-Lead Authored Date: Please click on pdf link to open report * Event Display: ECG 12-Lead Authored Date: Ventricular Rate: 103 BPM Atrial Rate: 103 BPM P-R Interval: 136 ms QRS Duration: 124 ms Q-T Interval: 366 ms QTC Calculation(Bazett): 479 ms P [place]: 3 degrees R Sen[place]: 35 degrees T [place]: -7 degrees Sinus tachycardia Right bundle branch block Abnormal ECG When compared with ECG of 14-OCT-2022 16:37, No significant change was found Confirmed by HAYDER LEONE MD ([id number]) on 03/03/2023 8:32:31 PM Byfield: VASU CALLOWAY,[facility] Progress note * Isi Cameron RN: VERIFY, PERFORM, SIGN Event Display: Progress Note Hospital Authored Date: Patient: REJI BATEMAN Age: 72 years Sex: Male : 1950 Associated Diagnoses: None Author: Isi Cameron RN Findings Problem Related to Alteration in Respiratory Function (new) : Alteration in Respiratory Function/new 03/06/2023 9:00 EST Alteration in Resp Status Related to Pneumonia Goals & Outcomes, Respiratory Pt will maintain/resume baseline physical assessment, Pt will maintain adequate nutritional intake, Pt will maintain/resume normal fluid/electrolyte balance, Pt willnot develop complications r/t immobility, Pt will demonstrate proper technique w/self care procedures Interventions, Respiratory Assess for and report S&S of respiratory distress, Position for comfort & optimal oxygenation BH Goals/Interventions, Respiratory Yes Respiratory, Problem Start 03/03/2023 15:51 Reviewed Plan with, Respiratory Patient Patient Progression, Respiratory Patient progressing according to plan . Nursing Data Vital Signs : VITAL SIGNS SECTION 03/06/2023 7:33 EST Temperature 98.1 DegF Temperature Route Oral Pulse Rate 91 bpm H Respiratory Rate 18 br/min Systolic Blood Pressure 157 mm Hg H Diastolic Blood Pressure 78 mm Hg Blood pressure sites Arm, right Mean Arterial Pressure 104 mm Hg Pulse Pressure 79 mm Hg Oxygen Saturation 99 % Mode of Delivery (Oxygen) Room air . Narrative/Incidental Patient is AAOX4. Remains on room air, incentive spirometer at bedside, using appropriately with encouragement. PRN oxycodone given for pain control with good effect. 1A with walker for safety, pt endorses generalized weakness and fatigue. Fall precautions in place and discussed with pt. Call lightwithin reach, pt calling appropriately. Pending discharge to [facility]. . * Mercy Veliz RN: VERIFY, PERFORM, SIGN Event Display: Progress Note Hospital Authored Date: Patient: REJI BATEMAN Age: 72 years Sex: Male : 1950 Associated Diagnoses: None Author: [place] RN, Mercy Findings Problem Related to Alteration in Respiratory Function (new) : Alteration in Respiratory Function/new 03/05/2023 23:00 EST Alteration in Resp Status Related to Pneumonia Goals & Outcomes, Respiratory Pt will maintain/resume baseline physical assessment, Pt will maintain adequate nutritional intake, Pt will maintain/resume normal fluid/electrolyte balance, Pt willnot develop complications r/t immobility, Pt will demonstrate proper technique w/self care procedures Interventions, Respiratory Assess for and report S&S of respiratory distress BH Goals/Interventions, Respiratory Yes Respiratory, Problem Start 03/03/2023 15:51 Reviewed Plan with, Respiratory Patient Patient Progression, Respiratory Patient progressing according to plan Comment: Respiratory Status see pn . Nursing Data Vital Signs : VITAL SIGNS SECTION 03/05/2023 19:43 EST Early Warning Score 2.00 03/05/2023 19:43 EST Temperature 97.7 DegF Temperature Route Oral Pulse Rate 96 bpm H Respiratory Rate 18 br/min Systolic Blood Pressure 148 mm Hg H Diastolic Blood Pressure 83 mm Hg Blood pressure sites Arm, left Mean Arterial Pressure 105 mm Hg Pulse Pressure 65 mm Hg Oxygen Saturation 100 % Mode of Delivery (Oxygen) Room air . Evaluation Patient has no c/o nausea, dyspnea or pain at this time. Callbell within reach. Bed alarm on. Q1 hour rounding in place. Safety and comfort maintained. . Discharge Information Rehabilitation Discharge : Rehab Discharge Index 03/05/2023 11:28 EST Comments on treatment indicated MOBILITY DECARESED FORM BASELEIN INDEPENDENT WITH RW. SKILLED PT INDICTAED. GIVEN CURRNET LEVEL OF FNX, FEEL REFERRAL TO STR FOR PT/OT ALSO INDICATED AND PATIENT/SPOUSE EDUCTAED IN THIS BUT THEY FEEL D/C TO HOME WITH SERVCIES ARE BEST OPTION FOR HIM. IT Walker: distance 10-20 Distance pt will ambulate >/= 25' Full chart review completed Yes Hospital course IN ER TESTING INCL ECG THATW + FOR SINUS TACHYCARDIA, R BBB, CXR WAS + FOR B LUNG BASEOPACITY,ENLARGED CARDIOMEDIASTINAL SILHOUETTE-PER REPORTS. PATEINT WAS AMD TO HOSPITAL WITH DXOF COUGH Other findings PATIENT AGREEABLE TO THERAPY THIS AM. BED MOB WITH CG-MIN A X 1. STATIC SITTING EOB IS STEADY, SUP X 1. SIT<>STAND WITH RW AND MOD A X 1 TO INITIATE, MIN TO COMPLETE. STATIC STANDING WITH WITH ROCKING TO IMPROVE MOMENTUM WHICH HE STATES HE ALWAYS DOES Plan of care PT Gait training, Transfer training, Therapeutic exercise, Functional Activities, Balance training, Neuromuscular education * Brandon Lewis RN: MODIFY, PERFORM, VERIFY, MODIFY, SIGN Event Display: Progress Note Hospital Authored Date: [id number] Patient: REJI BATEMAN Age: 72 years Sex: Male : 1950 Associated Diagnoses: None Author: Brandon Lewis RN Findings Problem Related to Alteration in Respiratory Function (new) : Alteration in Respiratory Function/new 03/05/2023 9:00 EST Alteration in Resp Status Related to Pneumonia Goals & Outcomes, Respiratory Pt will maintain/resume baseline physical assessment, Pt will maintain adequate nutritional intake, Pt will maintain/resume normal fluid/electrolyte balance, Pt willnot develop complications r/t immobility, Pt will demonstrate proper technique w/self care procedures Interventions, Respiratory Assess for and report S&S of respiratory distress, Position for comfort & optimal oxygenation, Monitor sputum color & consistency. Report changes to MD, Teach/encourage use of incentive spirometer Goals/Interventions, Respiratory Yes Respiratory, Problem Start 03/03/2023 15:51 Reviewed Plan with, Respiratory Patient Patient Progression, Respiratory Patient progressing according to plan . Alteration in Safety : Alteration in Safety/new 03/05/2023 9:00 EST Alteration in Safety Related to Other: High Fall Risk Goals & Outcomes, Safety Psychosocial support will be provided to Pt/S.O. as needed, Pt/caregiver will state understanding of plan/goals of care, Pt will remain safe & injury free, Pt/caregiver will be offered appropriate resources & support Interventions, Safety Provide teaching as needed, Discuss unsafe practices & situations with pt/S.O., Instruct pt on maintaining a safe environment, Talk to patient regarding concerns Goals/Interventions, Safety Yes Safety, Problem Start 03/03/2023 22:00 Reviewed plan with, Safety Patient Patient Progression, Safety Pt progressing according to plan . Nursing Data Vital Signs : VITAL SIGNS SECTION 03/05/2023 7:34 EST Early Warning Score 0.00 03/05/2023 7:34 EST Temperature 98.6 DegF Temperature Route Oral Pulse Rate 94 bpm H Respiratory Rate 18 br/min Respiratory Rate 18 br/min Systolic Blood Pressure 116 mm Hg Diastolic Blood Pressure 73 mm Hg Blood pressure sites Arm, right Mean Arterial Pressure 87 mm Hg Pulse Pressure 43 mm Hg Oxygen Saturation 98 % Mode of Delivery (Oxygen) Room air . Evaluation A/OX4, pleasant and cooperative. Pt denied chest pain. No edemal noted. Non- labored breathing on room air, nonproductive cough noted. LS rale and dim at bases encourage use of incentive spirometer. PRN cough med given with some positive relief. Pt denied N/V/D, POC checked and medicated with insulin per order. Pt c/o headache 09/24 and PRN oxy given with positive effect. Tremor noted at both hands. Pt OOB and ambulates in hallway with walker and one assist. gait unsteady. Void with urinal, occasional incont. noted, Received IV ABx with no adverse effect. Call ortiz within reach. safety maintained, hourly round made. . Note * Isi Cameron RN: PERFORM Event Display: Discharge/Transfer Note Hospital Authored Date: [id number] Nursing Discharge Note Entered On: 03/06/2023 15:49 EST Performed On: 03/06/2023 15:48 EST by Isi Cameron RN Nursing Discharge Note 2 Discharge Time : 03/06/2023 15:45 EST Discharge Level of Care at Discharge : Inpatient Rehab Facility/Unit Discharge Nursing Homes/Rehab Facilities : [facility] Patient Left Unit Via : Wheelchair Patient Accompanied Off Unit with : Other: spouse DC Instructions Provided & Signed by Pt : Yes Patient Understands D/C Instructions : Yes Patient Instructions Discharge Signed : Yes Did Pt have Specialty Bed or Wound Vac : No Isi Cameron RN - 03/06/2023 15:48 EST * Bogdan CALLOWAY Jena D: PERFORM, MODIFY, MODIFY Event Display: Discharge/Transfer Note Hospital Authored Date: [id number] Patient: ??BHAVANA, REJI ? Age:??72 Years?Sex:??Male?:??1950?? Patient Information Discharge Location: Med Surg Primary Care Physician: Dung Chen MD Admit Date/Time: 11/16/23 22:04 Discharge Disposition Discharge Disposition: Intermediate Facility/Rehab Discharge Diagnosis Rhinovirus infection (B34.8) Pneumonia (J18.9) Hypertension (I10) Hypokalemia (E87.6) Hypomagnesemia (E83.42) Immunosuppressed status (D84.9) CAD; s/p CABG 1997, [place] 2006 w/stent; heart transplant??03/29 Heart transplant status (Z94.1) AICD (automatic cardioverter/defibrillator) present (Z95.810) Chronic kidney disease stage 3 (N18.30) Diabetic nephropathy associated with type 2 diabetes mellitus (E11.21) Large fiber neuropathy (G62.9) Diabetes mellitus with PVD; stents; [facility] [place] [facility] (E11.51) Obesity, Class I, BMI 30.0-34.9 (see actual BMI) (E66.9) Vitamin D deficiency (E55.9) History of DVT of lower extremity (Z86.718) Low serum vitamin B12 (E53.8) Weakness generalized (R53.1) _ Discharge Medications Amlodipine (amLODIPine 10 mg oral tablet)?10?Milligram?1?tablet?By Mouth?Daily Aspirin (aspirin 81 mg oral delayed release tablet)?81?Milligram?1?tablet?By Mouth?Daily?for 30?Days Cefpodoxime (cefpodoxime 200 mg oral tablet)?200?Milligram?By Mouth?Every 12 hours Clopidogrel (Plavix 75 mg oral tablet)?75?Milligram?1?tablet?By Mouth?Daily dulaglutide (Trulicity Pen 0.75 mg/0.5 mL subcutaneous solution)?0.5?Milliliter?0.75?Milligram?Subcutaneous Injection?Every week?rotate injection sites Duloxetine (duloxetine 20 mg oral enteric coated capsule)?2?capsule?40?Milligram?By Mouth?Daily at bedtime Fluticasone Nasal (fluticasone 50 mcg/inh nasal spray)?1?spray(s)?Nares, Both?Daily Gabapentin (gabapentin 600 mg oral tablet)?1?tab(s)?600?Milligram?By Mouth?3 times a day Insulin Lispro (insulin lispro 100 u/ml subcutaneous injection)?2-10 units?Subcutaneous Injection?3 times a day before meals?<< Sliding Scale Comments >>150 - 199 ?? 2 units Call if less than [phone] - 249 ?? 4 units 250 - 299 ?? 6 units 300 - 349 ?? 8 units 350 - 399 ?? 10 units Call if greater than 400<< Sliding Scale Comments >> Mycophenolate Sodium (mycophenolic acid 360 mg oral delayed release tablet)?1?tab(s)?360?Milligram?By Mouth?2 times a day Oxycodone (oxyCODONE 5 mg oral capsule)?1?capsule?5?Milligram?By Mouth?Every 4 hours?as needed?for pain Pantoprazole (pantoprazole 40 mg oral delayed release tablet)?1?tab(s)?By Mouth?2 timesa day PredniSONE (predniSONE 5 mg oral tablet)?1?tab(s)?5?Milligram?By Mouth?Daily Rosuvastatin (rosuvastatin 20 mg oral tablet)?1?tab(s)?20?Milligram?By Mouth?Daily Tacrolimus (tacrolimus 1 mg oral capsule)?2.5?capsule?2.5?Milligram?By Mouth?2 times a day?3 in the AM & 3 in the Evening Trazodone (traZODone 100 mg oral tablet)?200?Milligram?2?tablet?By Mouth?Daily atbedtime Valsartan (valsartan 160 mg oral tablet)?160?Milligram?1?tablet?By Mouth?Daily ?? Vccinations and Immunoprophylaxis Hepatitis A Adult Vaccine: 1 Unknown (03/27/12 07:00:00) hepatitis B adult vaccine: 1 Unknown (03/27/12 07:00:00) influenza virus vaccine, inactivated: 0.5 Unknown (02/06/23 08:00:00) pneumococcal 20-valent conjugate vaccine: 0.5 mL (12/08/22 11:22:00) pneumococcal 23-valent vaccine: 0.5 Unknown (01/24/12 08:00:00) pneumococcal 23-valent vaccine: 0 Unknown (03/02/04 07:00:00) SARS-CoV-2 (COVID-19) mRNA BNT-162b2 vac: 0.3 Unknown (01/15/21 08:00:00) SARS-CoV-2 (COVID-19) mRNA BNT-162b2 vac: 0.3 Unknown (06/13/20 07:00:00) SARS-CoV-2 (COVID-19) mRNA BNT-162b2 vac: 0.3 Unknown (05/17/20 07:00:00) SARS-CoV-2 mRNA ([id number]) vax: 0.3 Unknown (07/18/21 08:00:00) SARS-CoV-2(COVID-19)mRNA-LNP vac(pvg206): 0.5 Unknown (02/06/23 08:00:00) [id number] 12y+ bivalent booster vax: 0.3 Unknown (04/15/22 07:00:00) tetanus/diphtheria/pertussis, acel(Tdap): 0.5 mL (12/08/22 11:22:00) ?? Durable Medical Equipment Discharge recommendations: Rehab (03/05/23) Name of Agency #1: [facility] (03/06/23) Agency [employer] Technician #1: intake (03/06/23) Service Categories #1: Physical Therapy (03/06/23) Service Comments #1: [facility] [place] visiting nurse will call you within 24-48 hours to set up a first visit (10/15/22) Ambulatory devices needed: None (03/06/23) ? Future Appointments Monday 1:40 PM EST ?? With: Dung Chen MD Where: [facility] [address] [place] [address]- Status: Pending Monday 11:45 AM EST ?? With: Katy Dupree Where: [facility] [place] [facility] [address] [place] [address]- Status: Pending Hospital Course History of Present Illness?? 03/02/23 Patient is a 72-year-old male history of heart transplant 2014 at [facility] on tacrolimus and mycophenolate, lower extremity infections, hypertension hyperlipidemia DM2 hyperparathyroidism presenting today for shortness of breath and cough worsening over the last about a week butvery severe over the last 3 days unable to get out of bed not eating or drinking unable to walk dueto shortness of breath. ??No chest pain no increased lower extremity edema. ??No measured fevers. ??No nausea vomiting. ??In the emergency room patient was afebrile, tachycardic, normotensive.?? Lab work remarkable for leukocytosis??and acute kidney injury.?? Chest x-ray showed??left??base infiltrate.?? Patient received ceftriaxone and doxycycline for presumed community-acquired pneumonia.?? Emergency room physician contacted [facility] transplant team.?? They felt comfortable keeping patient at [facility]??for treatment of pneumonia.?? At the time of my exam patient looks comfortable.?? He is coughing a lot. ??Denies chest pain. ?? Hospital Course Patient??was initially treated with ceftriaxone and doxycycline which were discontinued once Rhinovirus/Enterovirus returned positive.?? Generalized weakness likely multifactorial, including LATOYA, hypomagnesemia and hypokalemia. He has gradually improved and will be going to [facility] for acute rehab. ?? Objective Assessment and Plan Rhinovirus infection (B34.8)?? Pneumonia (J18.9) Pneumonia likely viral. Completing a course of antibiotic due to chronic immunosuppression. ?? Hypertension (I10):??BP mildly elevated, continued on usual medications ?? Hypokalemia (E87.6):??Repleted ?? Hypomagnesemia (E83.42):??Repleted ?? Immunosuppressed status (D84.9):??Continue usual anti-rejection regimen ?? AICD (automatic cardioverter/defibrillator) present (Z95.810):??Noted ?? Chronic kidney disease stage 3 (N18.30):??Acute worsening at admission has resolved ?? Diabetic nephropathy associated with type 2 diabetes mellitus (E11.21) Large fiber neuropathy (G62.9)?? Diabetes mellitus with PVD; stents; [place] [place] [facility] (E11.51) Good underlying control with A1C 6.6%. Continue current regimen, including insulin. Continue ASA and Plavix for PVD ?? Obesity, Class I, BMI 30.0-34.9 (see actual BMI) (E66.9):??Noted ?? Vitamin D deficiency (E55.9):??Start supplementation ?? History of DVT of lower extremity (Z86.718):?? Noted ?? Low serum vitamin B12 (E53.8):??Supplement started. Methylmalonic acid level pending to confirm. ?? Weakness generalized (R53.1):??Will be discharged to acute rehab ? Code Status:??Full ?? Vital Signs?? Temperature: 98.1 DegF (03/06/23 07:33:00) Temperature Route: Oral (03/06/23 07:33:00) Pulse Rate:??91 bpm??High (03/06/23 07:33:00) Respiratory Rate: 18 br/min (03/06/23 08:40:00) Respiratory Rate: 18 br/min (03/06/23 08:40:00) Systolic Blood Pressure:??157 mm Hg??High (03/06/23 07:33:00) Diastolic Blood Pressure: 78 mm Hg (03/06/23 07:33:00) Blood pressure sites: Arm, right (03/06/23 07:33:00) Mean Arterial Pressure: 104 mm Hg (03/06/23 07:33:00) Pulse Pressure: 79 mm Hg (03/06/23 07:33:00) Oxygen Saturation: 99 % (03/06/23 07:33:00) Mode of Delivery (Oxygen): Room air (03/06/23 07:33:00) Early Warning Score: 0 (03/06/23 11:34:19) ?? Therapeutic Activity Therapeutic Activities/Mobility/Balance Comments on treatment indicated: MOBILITY DECARESED FORM BASELEIN INDEPENDENT WITH RW. SKILLED PT INDICTAED. GIVEN CURRNET LEVEL OF FNX, FEEL REFERRAL TO STR FOR PT/OT ALSO INDICATED AND PATIENT/SPOUSE EDUCTAED IN THIS BUT THEY FEEL D/C TO HOME WITH SERVCIES ARE BEST OPTION FOR HIM. IT (03/05/23 11:28:00) Plan of care PT: Gait training, Transfer training, Therapeutic exercise, Functional Activities, Balance training, Neuromuscular education (03/05/23:28:00) Problems PT: Impaired strength/ROM, Impaired functional mobility, Impaired balance, Impaired safety, Difficulty walking, Abnormal gait (03/05/23:28:) Treatment Indicated-PT: Yes (03/05/23::) Discharge recommendations: Rehab (03/05/23:28:00) Distance pt will ambulate: >/= 25' (03/05/23 11:28:00) Ambulation, ??PT Plan: Supervision (03/05/23::) Barriers to goal achievement: Decreased function at baseline, Multiple medical problems (03/05/23 11:28:00) Bed mobility: PT Plan: Supervision (03/05/23:28:00) Equipment PT: Walker (03/05/23:28:00) Facilitators to goal achievement: Motivated, Supportive family, Previously Independent (03/05/23:28:00) Goals Patient/Family: TO GO HOME (03/05/23 11:28:00) oysterman PT goals: At baseline for functional mobility, Independent functional mobility (03/05/23 11:28:00) Plan Discussed w/Pt,Family/Agreed Upon: No (03/05/23 11:28:00) Plan discussed with care team PT: RNMD, concierge manager (03/05/23 11:28:00) Plan not discussed ? ??Why?: AGREE TO [facility] PT, HOME PT/OT BUT NOT INTERESTED IN STR THIS TIME(03/05/23 11:28:00) PT Duration: 2 weeks (03/05/23 11:28:00) Rehab potential: Excellent (03/05/23 11:28:00) Stairs (PT): 3 WITH RAIL (03/05/23 11:28:00) Transfer bed to chair PT Plan: Supervision (03/05/23 11:28:00) Transfer Sit to Stand, PT Plan: Supervision (03/05/23 11:28:00) ?? . Physical Exam Alert Lungs: Few crackles at L base, otherwise clear to auscultation Heart: Regular rhythm, no murmur Abdomen: Soft, non-tender Extremities: 1+ ankle edema bilaterally Skin: Scattered eschars over both lower legs (from bumping into things) w/o evidence of infection Pending Results Methylmalonic Acid ordered on 03/04/2023 Follow-Up Appointments Added Follow Up ?Time Frame ?Comments Dung Chen MD?At discharge from rehab Results Discharge Labs BLOOD COUNT & DIFF WBC 8.5 k/mm3 ()?? 03/03/2023 05:14 RBC 3.64 m/mm3 (Low)?? 03/03/2023 05:14 Hgb 9.7 Gm/dL (Low)?? 03/03/2023 05:14 Hct 30.4 % (Low)?? 03/03/2023 05:14 MCV 83.5 femtoliters ()?? 03/03/2023 05:14 MCH 26.6 pg (Low)?? 03/03/2023 05:14 MCHC 31.9 g/dL (Low)?? 03/03/2023 05:14 Platelet Count 157 k/mm3 ()?? 03/03/2023 05:14 RDW-SD 49.9 femtoliters (High)?? 03/03/2023 05:14 MPV 9.7 femtoliters ()?? 03/03/2023 05:14 ?? CARDIAC Nt-Probnp 756 pg/mL (High)?? 03/02/2023 17:53 High Sensitivity Troponin (HSTnT) 68 ng/L (Critical)?? 03/02/2023 21:05 ?? CHEM GENERAL Sodium 139 mmol/L ()?? 03/06/2023 08:34 Potassium 3.2 mmol/L (Low)?? 03/06/2023 08:34 Chloride 102 mmol/L ()?? 03/06/2023 08:34 Bicarbonate Level 25 mmol/L ()?? 03/06/2023 08:34 Anion Gap 12 ()?? 03/06/2023 08:34 Glucose Level 196 mg/dL (High)?? 03/02/2023 17:53 Glucose, POC 176 mg/dL (High)?? 03/06/2023 11:32 BUN 30 mg/dL (High)?? 03/03/2023 05:14 Creatinine-Blood 1.1 mg/dL ()?? 03/05/2023 05:12 Estimated??Creatinine Clearance 59.81 mL/min?? 03/05/2023 05:12 Calcium 8.7 mg/dL ()?? 03/02/2023 17:53 Phosphorus 2.7 mg/dL ()?? 03/03/2023 05:14 Magnesium 1.5 mg/dL (Low)?? 03/06/2023 08:34 Albumin 3.2 Gm/dL (Low)?? 03/03/2023 05:14 Vitamin B12 Level 273 pg/mL ()?? 03/03/2023 05:14 Lactate 1.2 mmol/L ()?? 03/02/2023 21:32 Iron Level 23 mcg/dL (Low)?? 03/03/2023 05:14 Iron Binding Capacity, Unsaturated 193 mcg/dL ()?? 03/03/2023 05:14 Iron Binding Capacity, Estimated Total 216 mcg/dL ()?? 03/03/2023 05:14 % Iron Saturation 11 % (Low)?? 03/03/2023 05:14 Ferritin Level 176 ng/mL ()?? 03/03/2023 05:14 ? ENDOCRINE/TUMOR MARKER TSH 1.00 uIU/mL ()?? 03/03/2023 05:14 PTH, Intact 67 pg/mL (High)?? 03/04/2023 05:23 ?? MISC. CHEMISTRY 25 OH-Vitamin D Level 8.1 ng/mL (Low)?? 03/04/2023 05:23 ? TOXICOLOGY/TDM Tacrolimus Level 4.1 ng/mL (Low)?? 03/03/2023 05:14 ? UA/URINALYSIS Appear/Color, Urine YELLOW ()?? 03/02/2023 23:55 Clarity CLEAR ()?? 03/02/2023 23:55 Specific [place], Urine >1.030 (High)?? 03/02/2023 23:55 pH, Urine 5.5 ()?? 03/02/2023 23:55 Albumin, Urine 2+ (Abnormal)?? 03/02/2023 23:55 Glucose, Urine 1+ (Abnormal)?? 03/02/2023 23:55 Ketones, Urine 1+ (Abnormal)?? 03/02/2023 23:55 Bilirubin, Urine NEGATIVE ()?? 03/02/2023 23:55 Hemoglobin, Urine 1+ (Abnormal)?? 03/02/2023 23:55 Nitrite, Urine NEGATIVE ()?? 03/02/2023 23:55 Leukocyte, Urine NEGATIVE ()?? 03/02/2023 23:55 Urobilinogen 2 mg/dL (Abnormal)?? 03/02/2023 23:55 WBC's, Urine 2 /HPF ()?? 03/02/2023 23:55 RBC's, Urine 2 /HPF ()?? 03/02/2023 23:55 Hyaline Cast 1 LPF ()?? 03/02/2023 23:55 Mucus SLIGHT /LPF ()?? 03/02/2023 23:55 ? VIROLOGY Influenza A PCR NEGATIVE ()?? 03/02/2023 23:07 Influenza B PCR NEGATIVE ()?? 03/02/2023 23:07 RSV PCR NEGATIVE ()?? 03/02/2023 23:07 Adenovirus by PCR NEGATIVE ()?? 03/04/2023 15:39 Coronavirus 229E by PCR (not COVID-19) NEGATIVE ()?? 03/04/2023 15:39 Coronavirus HKU1 by PCR (not COVID-19) NEGATIVE ()?? 03/04/2023 15:39 Coronavirus NL63 by PCR (not COVID-19) NEGATIVE ()?? 03/04/2023 15:39 Coronavirus OC43 by PCR (not COVID-19) NEGATIVE ()?? 03/04/2023 15:39 Human Metapneumovirus by PCR NEGATIVE ()?? 03/04/2023 15:39 Rhinovirus/Enterovirus by PCR POSITIVE (Abnormal)?? 03/04/2023 15:39 Influenza A by PCR NEGATIVE ()?? 03/04/2023 15:39 Influenza B by PCR NEGATIVE ()?? 03/04/2023 15:39 Parainfluenza 1 by PCR NEGATIVE ()?? 03/04/2023 15:39 Parainfluenza 2 by PCR NEGATIVE ()?? 03/04/2023 15:39 Parainfluenza 3 by PCR NEGATIVE ()?? 03/04/2023 15:39 Parainfluenza 4 by PCR NEGATIVE ()?? 03/04/2023 15:39 RSV by PCR NEGATIVE ()?? 03/04/2023 15:39 Bordetella Pertussis by PCR NEGATIVE ()?? 03/04/2023 15:39 Chlamydophila Pneumoniae by PCR NEGATIVE ()?? 03/04/2023 15:39 Mycoplasma Pneumoniae by PCR NEGATIVE ()?? 03/04/2023 15:39 COVID-19 PCR Specimen Source NASAL ()?? 03/02/2023 23:07 COVID-19 PCR Result NEGATIVE ()?? 03/02/2023 23:07 COVID-19 (SARS-CoV-2) by PCR NEGATIVE ()?? 03/04/2023 15:39 Bordetella Parapertussis by PCR NEGATIVE ()?? 03/04/2023 15:39 ?? Test Name Test Result Date/Time WBC 12.2 k/mm3 03/02/2023 17:53 EST Hgb 10.8 Gm/dL 03/02/2023 17:53 EST Platelet Count 160 k/mm3 03/02/2023 17:53 EST Sodium 138 mmol/L 03/02/2023 17:53 EST Potassium 3.2 mmol/L 03/06/2023 08:34 EST Potassium 3.5 mmol/L 03/05/2023 05:12 EST Potassium 3.0 mmol/L 03/04/2023 10:02 EST Potassium 3.2 mmol/L 03/03/2023 05:14 EST Potassium 4.1 mmol/L 03/02/2023 17:53 EST Chloride 98 mmol/L 03/02/2023 17:53 EST Bicarbonate Level 26 mmol/L 03/02/2023 17:53 EST Glucose Level 196 mg/dL 03/02/2023 17:53 EST Glucose, POC 176 mg/dL 03/06/2023 11:32 EST Glucose, POC 98 mg/dL 03/06/2023 07:39 EST Glucose, POC 138 mg/dL 03/05/2023 20:25 EST Glucose, POC 165 mg/dL 03/05/2023 16:12 EST Glucose, POC 173 mg/dL 03/05/2023 11:29 EST Glucose, POC 135 mg/dL 03/05/2023 07:42 EST BUN 32 mg/dL 03/02/2023 17:53 EST Creatinine-Blood 1.1 mg/dL 03/05/2023 05:12 EST Creatinine-Blood 1.2 mg/dL 03/03/2023 05:14 EST Creatinine-Blood 1.5 mg/dL 03/02/2023 17:53 EST Magnesium 1.5 mg/dL 03/06/2023 08:34 EST Magnesium 2.1 mg/dL 03/05/2023 05:12 EST Magnesium 1.2 mg/dL 03/04/2023 10:02 EST Magnesium 1.4 mg/dL 03/03/2023 05:14 EST Lactate 1.2 mmol/L 03/02/2023 21:32 EST Lactate 1.8 mmol/L 03/02/2023 17:53 EST ?? Imaging(s) Chest 2 Views Frontal and Lat ?? 03/02/2023 IMPRESSION: 1. Left lung base opacity concerning for airspace disease. 2. Hazy opacity in the right lung base which may represent dependent change. 3. Enlarged cardiomediastinal silhouette. ?? ECG 12-Lead ?? 03/02/2023 QTC Calculation(Bazett): 479 ms Sinus tachycardia Right bundle branch block Abnormal ECG When compared with ECG of 14-OCT-2022 16:37, No significant change was found ?? 45??minutes spent on discharge * Margarita Sullivan RN: PERFORM, SIGN, VERIFY Event Display: Case Management Discharge Plan Authored Date: [id number] Patient: REJI BATEMAN Age: 72 years Sex: Male : 1950 Associated Diagnoses: None Author: Margarita Sullivan RN Discharge Plan Case Management Discharge Plan : Case Management Discharge Plan Data 03/06/2023 11:38 EST Discharge Level of Care at Discharge Inpatient Rehab Facility/Unit Discharge Nursing Homes/Rehab Facilities [facility] Name of Agency [facility]1 [facility] [employer] Technician #1 intake Service Categories #1 Physical Therapy * Canelo WARREN, [place]: PERFORM Event Display: Patient Education/Instruction Authored Date: [id number] Inpatient Adult Discharge Instructions [address] [id number] Name: REJI BATEMAN : 1950 Visit: 03/02/2023 22:04:00 Current Date: 03/06/2023 15:20 Account: [id number] Inpatient Adult Discharge Instructions We would like [...] and their families. Surveys are administered by [employer] ?? If further treatment with your primary care physician or another doctor is recommended, it is important for you to keep the appointment. Call your primary care physician or return to the Emergency Department immediately if your condition worsens, fails to improve, or new symptoms develop. If you need to find a doctor, you can call [facility] [employer] Link for a referral at [phone] or toll free at [phone]) or log in to [email or web address].. ?? [facility], in keeping with [facility] guidance, no longer requires face masks for staff, patientsor visitors in most situations. Similiar to time spent indoors at other locations, there is the chance that you were exposed to repiratory viruses during your time with us (such as flu or COVID-19). If you develop symptoms concerning for a viral respiratory infection, please seek testing (and treatment if indicated) from your medical provider or home test kit. ?? You can view and manage your care through the patient portal or by using a health care laurent of your choosing. [employer] is a website that allows you to securely view your medical information including your hospital discharge summary, office visit summaries, medications and follow-up visits. You can also request appointments, renew medications, and request access to your medical information using a health care laurent of your choosing, or just ask a question. You can enroll at [email or web address] or register during your next office visit. You have been discharged from [facility], Patient Care Unit: Med Surg. If you have any questions regarding these instructions after you leave, please call us and we will be happy to assist you. [facility] Your Care Team Attending Physician Jena Mcfadden MD Discharging Providers Jena Mcfadden MD Reason for Admission COUGH Your Diagnosis Pneumonia Rhinovirus infection AICD (automatic cardioverter/defibrillator) present Chronic kidney disease stage 3 Diabetes mellitus with PVD; stents; [facility] History of DVT of lower extremity Heart transplant status Hypertension Immunosuppressed status Obesity, Class I, BMI 30.0-34.9 (see actual BMI) Large fiber neuropathy Diabetic nephropathy associated with type 2 diabetes mellitus Vitamin D deficiency Hypokalemia Hypomagnesemia Weakness generalized Low serum vitamin B12 Tests Performed Below is a partial list of the tests performed during your hospitalization. You may have had other tests and procedures not included in this list. Please discuss all test results with your provider. ALBUMIN B Type Natriuretic Peptide Basic Metabolic Panel BUN CBC w/ Differential COVID-19, RSV, and Flu A/B, Rapid PCR CREATININE FERRITIN GLUCOSE POC High??Sensitivity??Troponin T Hold Blue Top Tube HOLD GEL TUBE HOLD MILLER TUBE HOLD GREEN TUBE HOLD LAVENDER TUBE IRON & TIBC Lactate Level LACTIC ACID Lytes Magnesium Level PHOSPHORUS PTH Intact Respiratory Pathogen PCR with COVID-19 Tacrolimus Level Troponin T, High Sensitivity TSH Urinalysis w/hold for Urine Culture URINE MICROSCOPIC VITAMIN B12 Vitamin D 25 Hydroxy Level XR Chest 2 Views Frontal and Lat Primary Care Provider Dung Chen MD Advance Directive Health Care Proxy on File Yes - Health Care Proxy Yes - MOLST Discharge Vitals Temperature: 98.1 DegF Height: 173 cm Pulse Rate:??91 bpm??High Weight: 102.6 kg Respiratory Rate: 18 br/min Body Mass Index:??34.28 kg/m2??Critical Respiratory Rate: 18 br/min Body surface area: 2.22 Systolic Blood Pressure:??159 mm Hg??High ?? Diastolic Blood Pressure:??99 mm Hg??High ?? Oxygen Saturation: 99 % ?? Studies Pending All tests and labs ordered during this hospital stay have been completed unless listed below. Please discuss all pending results with your provider listed above in these instructions. ?? Blood Culture Blood Culture #2 Methylmalonic Acid What to do next Instructions From Your Doctor Discharge Orders Scheduled Follow-Up Appointments Monday 1:40 PM EST ?? With: Dung Chen MD Where: [facility] [address] [place] [address]- Status: Pending Monday 11:45 AM EST ?? With: Katy Dupree Where: [facility] [address] [place] [address]- Status: Pending You Need to Schedule the Following Appointments Follow Up with??Dung Chen MD Why: At discharge from rehab Where: [address] [place] [phone]- Discharge Medications BATEMANREJI :1950 Visit Date:03/02/2023 Medications: Please continue your medications until treatment is completed or stopped by your provider. Medications not listed below should be discontinued. Discuss any questions related to medications with your provider. What How Much When Instructions Next Dose New Cefpodoxime (cefpodoxime 200 mg oral tablet) 200 Milligram Oral Every 12 hours Tonight 21:00 Changed Duloxetine (duloxetine 20 mg oral enteric coated capsule) 2 capsule Oral Daily at Bedtime Tonight 21:00 Changed Insulin Lispro (insulin lispro 100 u/ ml subcutaneous injection) 2-10 units Subcutaneous Injection 3 times a day before meals << Sliding Scale Comments >> 150 - 199 ?? 2 units Call if less than 70 200 - 249 ?? 4 units 250 - 299 ?? 6 units 300 - 349 ?? 8 units 350 - 399 ?? 10 units Call if greater than 400 << Sliding Scale Comments >> ?? Today 16:00 Changed Mycophenolate Sodium (mycophenolic acid 360 mg oral delayed release tablet) 1 tab(s) Oral Twice a day Tonight 21:00 Changed Trazodone (traZODone 100 mg oral tablet) 2 tab(s) Oral Daily at Bedtime Tonight 21:00 Changed dulaglutide (Trulicity Pen 0.75 mg/ 0.5 mL subcutaneous solution) 0.5 Milliliter Subcutaneous Injection Every week rotate injection sites ?? Home schedule Unchanged Amlodipine (amLODIPine 10 mg oral tablet) 1 tab(s) Oral Daily Tomorrow AM ?? Unchanged Aspirin (aspirin 81 mg oral delayed release tablet) 1 tab(s) Oral Daily Duration: 30 Days Tomorrow AM Unchanged Clopidogrel (Plavix 75 mg oral tablet) 1 tab(s) Oral Daily Tomorrow AM Unchanged Fludrocortisone (fludrocortisone 0.1 mg oral tablet) Tomorrow AM Unchanged Fluticasone Nasal (fluticasone 50 mcg/ inh nasal spray) 1 spray(s) Nares, Both Daily Tomorrow AM Unchanged Gabapentin (gabapentin 600 mg oral tablet) 1 tab(s) Oral 3 times a day Tonight 21:00 Unchanged Oxycodone (oxyCODONE 5 mg oral capsule) 1 capsule Oral Every 4 hours as needed for for pain Unchanged Pantoprazole (pantoprazole 40 mg oral delayed release tablet) 1 tab(s) Oral Twice a day Tonight 21:00 Unchanged PredniSONE (predniSONE 5 mg oral tablet) 1 tab(s) Oral Daily Tomorrow AM Unchanged Rosuvastatin (rosuvastatin 20 mg oral tablet) 1 tab(s) Oral Daily Tomorrow AM Unchanged Tacrolimus (tacrolimus 1 mg oral capsule) 2.5 capsule Oral Twice a day 3 in the AM & 3 in the Evening ?? Tonight 21:00 Unchanged Valsartan (valsartan 160 mg oral tablet) 1 tab(s) Oral Daily Tomorrow Am ?? What How Much When Comments Stop Taking insulin degludec (insulin degludec (concentrated) 200 units/ mL subcutaneous solution) See instructions 30 ??units in the AM and 30 units in the PM 30 days supply ?? Stop Taking Magnesium Oxide (magnesium oxide 400 mg oral tablet) 1 tab(s) Oral Twice a day Test Results Below is a partial list of the most recent Laboratory test results done prior to this discharge. You may have had other tests and procedures not included in this list. Please discuss all test resultswith your provider. Est Creatinine Clearance - 59.81 mL/min (03/05/2023) ALBUMIN (03/03/2023) ???Albumin - 3.2 Gm/dL B Type Natriuretic Peptide (03/02/2023) ???Nt-Probnp - 756 pg/mL Basic Metabolic Panel (03/02/2023) ???Sodium - 138 mmol/L???Potassium - 4.1 mmol/L???Chloride - 98 mmol/L???Bicarbonate Level - 26 mmol/L???Anion Gap - 14???Glucose Level - 196 mg/dL???BUN - 32 mg/dL???Creatinine-Blood - 1.5 mg/dL???Estimated GFR Creatinine - 49 ML/MIN/1.73 M2???Calcium - 8.7 mg/dL BUN (03/03/2023) ???BUN - 30 mg/dL CBC w/ Differential (03/03/2023) ???WBC - 8.5 k/mm3???RBC - 3.64 m/mm3???Hgb - 9.7 Gm/dL???Hct - 30.4 %???MCV - 83.5 femtoliters???MCH - 26.6 pg???MCHC - 31.9 g/dL???Platelet Count - 157 k/mm3???RDW-SD - 49.9 femtoliters???MPV - 9.7femtoliters???Nucleated RBC (Automated) - 0.0 #/100 WBC'S???Abs. NRBC - 0.0 k/mm3???Abs. Neut - 7.4 k/mm3???Abs. Lymph - 0.5 k/mm3???Abs. [place] - 0.4 k/mm3???Abs. Eo - 0.1 k/mm3???Abs. Baso - 0.0 k/mm3???Neut % - 87.6 %???Lymph % - 5.7 %???[place] % - 4.7 %???Eos % - 1.1 %???Baso % - 0.1 %???Imm Gran -0.8 %???Abs. Imm Gran - 0.1 k/mm3 COVID-19, RSV, and Flu A/B, Rapid PCR (03/02/2023) ???Influenza A PCR - NEGATIVE???Influenza B PCR - NEGATIVE???RSV PCR - NEGATIVE???COVID-19 PCR Specimen Source - NASAL???COVID-19 PCR Result - NEGATIVE CREATININE (03/05/2023) ???Creatinine-Blood - 1.1 mg/dL???Estimated GFR Creatinine - 72 ML/MIN/1.73 M2 FERRITIN (03/03/2023) ???Ferritin Level - 176 ng/mL GLUCOSE POC (03/06/2023) ???Glucose, POC - 176 mg/dL High??Sensitivity??Troponin T (03/02/2023) ???High Sensitivity Troponin (HSTnT) - 74 ng/L Hold Blue Top Tube (03/02/2023) ???Hold Blue Top - SPECIMEN DISCARDED AFTER 4 HOURS. HOLD GEL TUBE (03/03/2023) ???Hold Gel Top - SPECIMEN DISCARDED AFTER 1 WEEK HOLD MILLER TUBE (03/02/2023) ???Hold Miller Top - SPECIMEN DISCARDED AFTER 1 WEEK HOLD GREEN TUBE (03/04/2023) ???Hold Green Top - SPECIMEN DISCARDED AFTER 1 WEEK HOLD LAVENDER TUBE (03/06/2023) ???Hold Lavender Top - SPECIMEN DISCARDED AFTER 24 HOURS. IRON & TIBC (03/03/2023) ???Iron Level - 23 mcg/dL???Iron Binding Capacity, Unsaturated - 193 mcg/dL???Iron Binding Capacity, Estimated Total - 216 mcg/dL???% Iron Saturation - 11 % Lactate Level (03/02/2023) ???Lactate - 1.2 mmol/L LACTIC ACID (03/02/2023) ???Lactate - 1.8 mmol/L Lytes (03/06/2023) ???Sodium - 139 mmol/L???Potassium - 3.2 mmol/L???Chloride - 102 mmol/L???Bicarbonate Level - 25 mmol/L???Anion Gap - 12 Magnesium Level (03/06/2023) ???Magnesium - 1.5 mg/dL PHOSPHORUS (03/03/2023) ???Phosphorus - 2.7 mg/dL PTH Intact (03/04/2023) ???PTH, Intact - 67 pg/mL Respiratory Pathogen PCR with COVID-19 (03/04/2023) ???Adenovirus by PCR - NEGATIVE???Coronavirus 229E by PCR (not COVID-19) - NEGATIVE???Coronavirus HKU1 by PCR (not COVID-19) - NEGATIVE???Coronavirus NL63 by PCR (not COVID-19) - NEGATIVE???Coronavirus OC43 by PCR (not COVID-19) - NEGATIVE???Human Metapneumovirus by PCR - NEGATIVE???Rhinovirus/Enterovirus by PCR - POSITIVE???Influenza A by PCR - NEGATIVE???Influenza B by PCR - NEGATIVE???Parainfluenza 1 by PCR - NEGATIVE???Parainfluenza 2 by PCR - NEGATIVE???Parainfluenza 3 by PCR - NEGATIVE???Parainfluenza 4 by PCR - NEGATIVE???RSV by PCR - NEGATIVE???Bordetella Pertussis by PCR - NEGATIVE??? Chlamydophila Pneumoniae by PCR - NEGATIVE???Mycoplasma Pneumoniae by PCR - NEGATIVE???COVID-19 (SARS-CoV-2) by PCR - NEGATIVE???Bordetella Parapertussis by PCR - NEGATIVE Tacrolimus Level (03/03/2023) ???Tacrolimus Level - 4.1 ng/mL Troponin T, High Sensitivity (03/02/2023) ???High Sensitivity Troponin (HSTnT) - 68 ng/L TSH (03/03/2023) ???TSH - 1.00 uIU/mL Urinalysis w/hold for Urine Culture (03/02/2023) ? ?Appear/Color, Urine - YELLOW? ?Clarity - CLEAR? ?Specific [place], Urine - >1.030? ?pH, Urine- 5.5???Albumin, Urine - 2+???Glucose, Urine - 1+???Ketones, Urine - 1+???Bilirubin, Urine - NEGATIVE???Hemoglobin, Urine - 1+???Nitrite, Urine - NEGATIVE???Leukocyte, Urine - NEGATIVE???Urobilinogen- 2 mg/dL???Hold Urine Culture - Testing available 48 hours from time of collection. URINE MICROSCOPIC (03/02/2023) ???WBC's, Urine - 2 /HPF???RBC's, Urine - 2 /HPF???Hyaline Cast - 1 LPF???Mucus - SLIGHT VITAMIN B12 (03/03/2023) ???Vitamin B12 Level - 273 pg/mL Vitamin D 25 Hydroxy Level (03/04/2023) ???25 OH-Vitamin D Level - 8.1 ng/mL Allergies (NKA means No Known Allergies) lisinopril Problems Active Problems??(51) AICD (automatic cardioverter/defibrillator) present?? Amputated toe of left foot?? BPH - [facility]?? CAD; s/p CABG 1997, [place] 2006 w/stent; heart transplant 04/30?? Chronic kidney disease stage 3?? Colon polyp?? Diabetes mellitus with cataract?? Diabetes mellitus with PVD; stents; [facility]?? Diabetic foot ulcer; Dr Ralph?? Diabetic nephropathy associated with type 2 diabetes mellitus?? Dry eyes?? Dysautonomia?? Erectile dysfunction?? Esophageal dysmotility?? DAY (generalized anxiety disorder)?? Gastroesophageal reflux disease?? Glaucoma suspect?? H/o positive PPD, s/p 9mo INH?? Heart transplant status?? History of depression?? History of DVT of lower extremity?? History of venous thrombosis - R IJ complete, partial on L; AC x3mo?? Hyperparathyroidism?? Hypertension?? Hypokalemia?? Hypomagnesemia?? Immunosuppressed status?? Insomnia?? Ischemic cardiomyopathy?? Large fiber neuropathy?? Left foot drop?? Leukopenia?? Low back pain?? Low serum vitamin B12?? Microscopic hematuria; [facility]?? Neck pain?? Neuropathy due to diabetes mellitus?? Nonproliferative diabetic retinopathy?? Obese class I?? Obstructive sleep apnea syndrome?? Osteopenia - minimal, on DXA 08/01?? Peripheral neuropathy?? Pneumonia?? Presbyesophagus?? Pure hypercholesterolemia?? Rhinovirus infection?? Tremor - Neurology at [facility]?? Type 2 DM with renal manifestations; [facility]?? Unsteady gait?? Vitamin D deficiency?? Weakness generalized?? Education Materials Below is the list of Educational Leaflet Providered with your Discharge Instructions. Valuables and Belongings I fully understand and agree that [facility] accepts no responsibility for all my [...] to send valuables and belongings home. ?? Review of Valuable and Belonging List: With patient Date for Pt to Sign Valuables/Belongings: 03/03/23 14:51:00 ?? Other Discharge Information ? Case Management Discharge Plan?? Discharge Plan?? Discharge Agency Information?? Discharge Level of Care at Discharge: Inpatient Rehab Facility/Unit [facility] of Agency [facility]1: [facility]: [facility] [employer] Technician #1: intake ?? Service Categories #1: Physical Therapy ?? Pulmonary Rehab Status?? Pulmonary Rehab Discharge Status?? Respiratory Rate: 18 br/min Respiratory Rate: 18 br/min ? Common Emergency [...] are strongly encouraged to quit. Please call [facility] [employer] Link at [phone] or [phone] or log in to [email or web address] for referrals to smoking cessation programs. ?? 144 Suicide & Crisis Lifeline is available 07/11 if you or someone you know needs to find a reason to keep living. By calling 524 you'll be connected to a skilled, trained counselor at a crisis center in your area. INPATIENT DISCHARGE INSTRUCTIONS SIGNATURE PAGE REJI BATEMAN Location:[facility] Registration Date and Time:03/02/2023 22:04 [facility] Primary Care Physician: Dung Chen MD, Attending Physician: Jena Mcfadden MD, I REJI BATEMAN, have received the above patient education materials/instructions and have verbalized understanding. If ambulance or transport services are being used I further acknowledge being givena choice of service. ?? If you need to contact me, please call me at this number: . Patient/Storage Administrator Name: Patient/Storage Administrator Signature: Relationship to Patient: Witness Name/Signature: Date: Patient Care team information Care Team Personnel Name: Nenita Song Position: [facility] RN Supv Member Role: Primary Care Nurse Name: Sherice Mariscal RN Position: [facility] RN Member Role: Primary Care Nurse Name: Najma Michael RN Position: [facility] RN Member Role: Primary Care Nurse Name: Mallory Masterson NP Position: Reference Physician Member Role: Primary Care Nurse Address: Address: [address] [place] [address]- Name: Scarlet Rosenthal RN Position: [facility] SN RN Member Role: Primary Care Nurse Name: Dung Chen MD Position: [facility] Physician - Primary Care Member Role: PCP Address: Address: [address] [place] [address]- [place] Name: Heydi Oviedo RN Position: [facility] Hospital Quick Service Technician Member Role: Primary Care Nurse Name: Mercy Veliz RN Position: [facility] RN Member Role: Primary Care Nurse Name: Sandra Cat Position: [facility] Outreach Member Role: Lifetime Consulting Physician Name: Nicki Garcia RN Position: [facility] RN Member Role: Primary Care Nurse Name: Vane Davalos RN Position: [facility] RN Member Role: Primary Care Nurse Name: Belinda Stevenson RN Position: [facility] SN RN Member Role: Primary Care Nurse Name: Luis Peters MD Position: [facility] Renal MD Member Role: Lifetime Consulting Physician Address: Address[address] [facility] [place] [address]- [place] Name: Zulma Martinez MD Position: [facility] Cardiology MD Member Role: Lifetime Consulting Physician Address: Address: [address] [place] [address]- [place] Name: Evelyn Jean-Baptiste RN Position: [facility] RN Member Role: Primary Care Nurse Name: Hilda Mcdonald RN Position: [facility] RN Member Role: Primary Care Nurse Name: Zafar DOMINGUEZ Attending Position: [facility] ED Medicine MD Name: Oralia Crowe Position: [facility] ED OA Charge Member Role: ED Associate Name: Delia Harley Position: [facility] ED TA [facility] Member Role: Celebrity Chef Entrepreneur Media Personality Care Team Related Persons Name: LUCIA BATEMAN Address: home [address] [place] [address]
--- OUTSIDE RECORDS SUMMARY | 2023-05-15 08:53 | XMS_ITS | Continuity of Care Document ---
Author Name Unknown Organization [facility] Address [address] [place] [address]- Care Team Providers Care Hoof And Shoe Inspector Name Role Phone Dung Chen MD Primary Care Physician Encounter [facility] Date(s): 03/18/20 - 03/25/20 [facility] [address] [place] [address] Attending Physician: Felix Duque MD Admitting Physician: Dunia CALLOWAY, Felix Tinajero Allergies, Adverse Reactions, Alerts Substance Reaction Severity [...] he received this seasons flu vaccine at [facility]. 3Admin Note: Patient states he received pneumovax in 2004 at [facility]. Medications aspirin 81 mg oral tablet 1 [...] Maintenance, 06/09/19 9:51:00 EST, EC Capsule, [facility]/pharmacy #[id number], 175, cm, 12/05/18 15:23:00 EDT, Height, [...] 14:36:00 EDT, Route to Pharmacy Electronically, [facility]/pharmacy #[id number], 176, cm, 01/06/20 19:56:00 EDT, Height, [...] 16:08:00 EST, Route to Pharmacy Electronically, [facility]/pharmacy #[id number], 175, cm, 12/05/18 15:23:00 EDT, Height, [...]
--- OUTSIDE RECORDS SUMMARY | 2023-05-15 08:53 | XMS_ITS | Continuity of Care Document ---
Author Name Unknown Organization [facility] Address [address] [place] [address]- Care Team Providers Care Rotary Drier Operator Name Role Phone Dung Chen MD Primary Care Physician [facility]counter [facility] Date(s): 12/09/21 - 01/08/22 [facility] Diabetes [address] [place] [address] Allergies, Adverse Reactions, Alerts Substance Reaction Severity Status lisinopril Active Immunizations Given and Recorded Vaccine Date Status Refusal Reason SARS-CoV-2 mRNA ([id number]) vax 07/18/21 Recorded SARS-CoV-2 (COVID-19) mRNA BNT-162b2 [...] Gi randi influenza virus vaccine, inactivated 01/22/07 Uqinn rded influenza virus vaccine, inactivated 03/07/06 Quinn [...] he received this seasons flu vaccine at [place]. 3Admin Note: Patient states he received pneumovax in 2004 at [place]. Medications aspirin 81 mg oral delayed release tablet 81 mg, 1, tablet, By Mouth, Daily, # 30 tablet, Refills 0, Tot. Refills 0, Maintenance, 06/08/21 11:45:00 EST, Route to Pharmacy Electronically, [facility]/pharmacy #[id number], Partial fill upon patient request if the [...] 06/01/21 21:... Start Date: 06/21/21 Status: Ordered gabapentin 300 mg oral capsule 1, capsule, By Mouth, 3 times a day, # 270 capsule, Refills 0, Route to Pharmacy Electronically, [facility], 175.3, cm, 09/27/21 10:36:00 EDT, Height, 86.2, kg, 08/26/21 12:59:00 EDT, Dry Weight Start Date: 11/10/21 Status: Ordered HumaLOG Cartridge 100 units/mL injectable solution See Instructions, Insert cartridge into Inpen device, inject 16 units subq 3x a day with meals, Maxdaily dose 48 units, E11.65, # 30 mL, 6 Refills, Maintenance, 08/03/21 10:25:00 EDT, [facility], 175, cm, 07/26/21 8:27:00 EDT, [...] 11/11/21 Stop Date: 08/08/22 Status: Ordered Pen [place], 31 G x 8 mm BD Ultra Fine III See Instructions, # 300 each, Refills 6, Tot. Refills 6, Maintenance, use as directed for Type 2 Diabetes Mellitus for 5 injections per day E11.9, 12/09/21 9:52:00 EDT, Supply, 175.3, cm, 12/06/21 7:36:00 EDT, Height, 95.3, kg, 12/06/21 7:36:00 EDT... Start Date: 12/09/21 Stop Date: 08/31/23 Status: Ordered Pen [place], 32 G x 4 mm BD Ultra [...] 09/27/21 11:24:00 EDT, Route to Pharmacy Electronically, [facility]/pharmacy #[id number], 175.3,cm, 09/27/21 10:36:00 EDT, Height, 86.2, [...] (automatic cardioverter/defibrillator) present(Confirmed) 06/21/05 Active BPH - [facility](Confirmed) 03/14/21 Active Chronic kidney disease stage 3(Confirmed) 05/17/11 Active CAD; s/p CABG 1997, [place] 2006 w/stent; heart transplant 04/30(Confirmed) Active Diabetes mellitus(Confirmed) Active Diabetes mellitus with PVD; stents; [facility](Confirmed) Active Diabetes mellitus with cataract(Confirmed) Active Dysautonomia(Confirmed) [...] hypercholesterolemia(Confirmed) 06/21/05 Active Tremor - Neurology at [facility](Confirmed) 02/07/18 Active Type 2 DM with renal manifes tations; [facility](Confirmed) 05/04/16 Active 1EF 20-25% prior to transplant Social History Social History Type Response Smoking Status Former smoker, quit more than 30 days ago entered on: 06/01/21 Sex Care Team Personnel Name: Dung Chen MD Address: [address] [place], [place] [address]
--- OUTSIDE RECORDS SUMMARY | 2023-05-15 08:53 | XMS_ITS | Continuity of Care Document ---
Author Name Unknown Organization [facility] Address [address] [place] [address]- Care Team Providers Care Junior Technical Writer Name Role Phone Dung Chen MD Primary Care Physician [phone] Encounter [facility] ACCT R [id number] Date(s): 01/19/21 - 02/18/21 [facility] [address] [place] [phone]- Attending Physician: Scott Mcintosh Admitting Physician: AdmtrScott [...] he received this seasons flu vaccine at [place]. 3Admin Note: Patient states he received pneumovax in 2004 at [place]. Medications aspirin 81 mg oral tablet 1 tablet = 81 mg, By Mouth, Daily, # 30 tablet, 0 Refills, Maintenance, 04/07/17 12:54:17, Tablet Start Date: 04/07/17 Status: Ordered Ativan 1 mg oral tablet See Instructions, 1 tablet By Mouth 30 minutes before MRI. May repeat once at time of test., # 2 tablet, 0 Refills, Maintenance, 08/17/20 17:02:00 EDT, [facility]/pharmacy #[id number], Partial fill upon patient request if the [...] Maintenance, 06/09/19 9:51:00 EST, EC Capsule, [facility]/pharmacy #[id number], 175, cm, 12/05/18 15:23:00 EDT, Height, [...] By Mouth, 3 times a day, # 180 capsule, Refills 5, Tot. Refills 0, Maintenance, 11/02/20 13:16:00 EDT, Route to Pharmacy Electronically, [facility], 176, cm, 08/17/20 16:06:00 EDT, Height, 94.72, kg, 10/09/19 14:08:00 EDT, Dry We... Start Date: 11/02/20 Status: Ordered Lantus Solostar Pen 100 units/mL subcutaneous solution = 70 units, Subcutaneous Injection, Daily, = 70 units, Subcutaneous Injectin, Daily. E11.65. 90 daysupply rotate injection sites, # 90 mL, 3 Refills, Maintenance, 09/25/20 10:26:00 EDT, Solution, [facility], , 176, cm... Start Date: [...] Compound Start Date: 10/15/18 Status: Ordered Pen [place], 31 G x 5 mm BD Ultra Fine III See Instructions, # 120 each, Refills 6, Tot. Refills 6, Maintenance, injects 4 times a day E11.65,08/24/20 9:11:00 EDT, fax [phone], Compound, 176, cm, 08/17/20 16:06:00 EDT, Height, 94.72, kg, 10/09/19 14:08:00 EDT, Dry Weight Start Date: 08/24/20 Status: Ordered Plavix 75 mg oral tablet 75 mg, 1, tablet, By Mouth, Daily, # 90 tablet, Refills 3, Tot. Refills 3, Maintenance, 01/28/20 14:36:00 EDT, Route to Pharmacy Electronically, [facility]/pharmacy #[id number], 176, cm, 01/06/20 19:56:00 EDT, Height, [...] 16:08:00 EST, Route to Pharmacy Electronically, [facility]/pharmacy #[id number], 175, cm, 12/05/18 15:23:00 EDT, Height, [...]
--- OUTSIDE RECORDS SUMMARY | 2023-05-15 08:53 | XMS_ITS | Continuity of Care Document ---
Author Name Unknown Organization [facility] Address [address] [place] [address]- Care Team Providers Care Jazz Musician Name Role Phone Dung Chen MD Primary Care Physician En[place] [facility] Date(s): 08/23/22 - 09/22/22 [facility] Diabetes [address] [place] [address]- Allergies, Adverse Reactions, Alerts Substance Reaction Severity Status lisinopril Active Immunizations Given and Recorded Vaccine Date Status Refusal Reason SARS-CoV-2 mRNA (xdsbewz-[id number]) vax 07/18/21 Recorded SARS-CoV-2 (COVID-19) mRNA BNT-162b2 [...] he received this seasons flu vaccine at [place]. 3Admin Note: Patient states he received pneumovax in 2004 at [place]. Medications amLODIPine 5 mg oral tablet 5 mg, 1, tablet, By Mouth, Daily, # 90 tablet, Refills 1, Tot. Refills 1, Maintenance, 05/12/22 11:54:00 EST, Route to Pharmacy Electronically, [facility] ([facility] ), Partial fill upon patient request if the prescription is for a... Start Date: 05/12/22 Status: Ordered apixaban Starter Pack 5 mg oral tablet 2 tablet = 10 mg, By Mouth, 2 times a day, Please take 10mg twice a day for 6 days (through 09/18/22)and then take 5mg twice a day starting 09/19/22, # 120 tablet, 0 Refills, Maintenance, 09/12/22 12:42:00 EDT, Tablet, [facility]/pharmacy #[id number], Partial fill up... Start Date: 09/12/22 Status: Ordered aspirin 81 mg oral delayed release tablet 81 mg, 1, tablet, By Mouth, Daily, # 30 tablet, Refills 0, Tot. Refills 0, Maintenance, 06/08/21 11:45:00 EST, Route to Pharmacy Electronically, [facility]/pharmacy #[id number], Partial fill upon patient [...] 02/03/22 9:07:00 EDT, Route to Pharmacy Electronically, [facility] ([facility]), 175.3, cm, 01/03/22 13:47:00 EDT, Height, 95.3, kg, 12/06/21 7:36:00 ED... Start Date: 02/03/22 Status: Ordered Humalog Cartridge 100 units/mL subcutaneous injection See Instructions, INSERT CARTRIDGE INTO INPEN DEVICE AND INJECT SUBCUTANEOUSLY 16 UNITS 3 TIMES DAILY WITH MEALS - MAX DAILY DOSE: 48 UNITS, # 45 mL, 3 Refills, Maintenance, 08/23/22 12:58:00 EDT, [facility] ([facility]), 176, cm... Start Date: 08/23/22 Status: Ordered insulin degludec (concentrated) 200 units/mL subcutaneous solution See Instructions, 42 units in the AM and 52 units in the PM 90 days supply, # 75 mL, 3 Refills, Maintenance, 05/24/22 12:19:00 EST, [facility] ([facility] ), Partial fill upon patient [...] Weight Start Date: 08/17/22 Status: Ordered Pen [place], 31 G x 8 mm BD Ultra Fine III See Instructions, # 300 each, Refills 6, Tot. Refills 6, Maintenance, use as directed for Type 2 Diabetes Mellitus for 5 injections per day E11.9, 12/09/21 9:52:00 EDT, Supply, 175.3, cm, 12/06/21 7:36:00 EDT, Height, 95.3, kg, 12/06/21 7:36:00 EDT... Start Date: 12/09/21 Stop Date: 08/31/23 Status: Ordered Pen [place], 32 G x 4 mm BD Ultra [...] EST, Supply Start Date: 06/08/22 Status: Ordered sucralfate 1 gm oral tablet 1 Gm, 1, tablet, By Mouth, 2 times a day, # 60 tablet, Refills 0, Tot. Refills 0, Maintenance, 09/01/22 13:19:00 EDT, Route to Pharmacy Electronically, [facility]/pharmacy #[id number], Partial fill upon patient request if the prescription is for a schedule II opio... Start Date: 09/01/22 Status: Ordered tacrolimus 1 mg oral capsule [...] Route to Pharmacy Electronically, [facility] ([facility] ), 175, cm, 05/12/22 [...] r) present Confirmed 06/21/05 Active BPH - [facility] Confirmed 03/14/21 Active BMI 33.0-33.9,adult Confirmed Active Chronic kidney disease stage 3 Confirmed 05/17/11 Active CAD; s/p CABG 1997, [place] 2006 w/stent; heart transplant 04/30 Confirmed Active DVT, lower extremity Confirmed Active Diabetes mellitus with PVD; stents; [facility] Confirmed Active Diabetes mellitus with cataract [...] back pain Confirmed 06/15/15 Active Microscopic hematuria; [facility] Confirmed Active Neck pain Confirmed [...] Confirmed 06/21/05 Active Tremor - Neurology at [facility] Confirmed 02/07/18 Active Type 2 DM with renal manifestations; [facility] Confirmed 05/04/16 Active 1EF 20-25% prior to transplant Social History Social History Type Response Smoking Status Former smoker, quit more than 30 days ago entered on: 06/01/21 Sex Patient Care team information Care Team Personnel Name: Siri Franklin Position: [facility] RN Member Role: Primary Care Nurse Name: Nenita Song Position: [facility] RN Supv Member Role: Primary Care Nurse Name: Najma Michael RN Position: [facility] RN Member Role: Primary Care Nurse Name: Mallory Masterson NP Position: Reference Physician Member Role: Primary Care Nurse Address: Address: [address] [place] [address]- [place] Name: Scarlet Rosenthal RN Position: [facility] SN RN Member Role: Primary Care Nurse Name: Dung Chen MD Position: [facility] Physician - Primary Care Member Role: PCP Address: Address: [address] [place] [address]- [place] Name: Heydi Oviedo RN Position: [facility] Hospital Test Director Member Role: Primary Care Nurse Name: Sandra Cat Position: [facility] Outreach Member Role: Lifetime Consulting Physician Name: Nicki Garcia RN Position: [facility] RN Member Role: Primary Care Nurse Name: Luis Peters MD Position: [facility] Renal MD Member Role: Lifetime Consulting Physician Address: Address: [address] [facility] [address] [facility] [place] [address]- [place] Name: Zulma Martinez MD Position: [facility] Cardiology MD Member Role: Lifetime Consulting Physician Address: Address: [address] [place] [address] [place] [address]- [place] Name: Evelyn Jean-Baptiste RN Position: [facility] RN Member Role: Primary Care Nurse Name: Hilda Mcdonald RN Position: [facility] RN Member Role: Primary Care Nurse Care Team Related Persons Name: LUCIA BATEMAN Address: [address] [address]
--- OUTSIDE RECORDS SUMMARY | 2023-05-15 08:53 | XMS_ITS | Continuity of Care Document ---
Author Name Unknown Organization [facility] Address [address] [place] [address]- Care Team Providers Care Sandblasting Supervisor Name Role Phone Dung Chen MD Primary Care Physician Encounter [facility] Date(s): 03/20/23 - 03/27/23 [facility] [address] [place], [place] [address] Encounter Diagnosis Viral syndrome(Discharge Diagnosis) - 03/20/23 Arm mass(Discharge Diagnosis) - 03/20/23 Attending Physician: Dung Chen MD Allergies, Adverse [...] virus vaccine, inactivated 03/07/06 Quinn rded SARS-CoV-2(COVID-19)mRNA-LNP vac([id number]) 02/06/23 Recorded tetanus/diphtheria/pertussis, acel(Tdap) 2 12/08/22 Given tetanus/diphtheria/pertussis, acel(Tdap) 03/27/12 Recorded pneumococcal 20-valent conjugate vaccine 3 12/08/22 Given [id number] 12y+ bivalent booster vax 04/15/22 Recorded SARS-CoV-2 mRNA (wtwwmjo-cdhz-yrwoe) vax 07/18/21 Recorded SARS-CoV-2 (COVID-19) mRNA BNT-162b2 [...] Exp. #) SEP 23 2Result Comment: [facility] [phone] 3Result Comment: [facility] [phone] 4Admin Note: Pt states he received this seasons flu vaccine at [place]. 5Admin Note: Patient states he received pneumovax in 2004 at [place]. Medications Albuterol 0.083% inhalation roger Refills 0, Maintenance, 03/20/23 8:54:00 EST Start Date: 03/20/23 Status: Ordered amLODIPine 10 mg oral tablet 10 mg, 1, tablet, By Mouth, Daily, # 90 tablet, Refills 3, Tot. Refills 3, Maintenance, 11/03/22 11:30:00 EDT, Route to Pharmacy Electronically, [facility] ([facility] ), Partial fill upon patient [...] 06/08/21 11:45:00 EST, Route to Pharmacy Electronically, [facility]/pharmacy #[id number], Partial fill upon patient request if the [...] 3 Refills, Maintenance, 01/19/23 18:26:00 EDT, [facility] [place],[facility], Partial fill upon patient request [...] 12/08/22 11:17:00 EDT, Solution, [facility] ([facility]), Partial fillupon patient request if [...] r) present Confirmed 06/21/05 Active BPH - [facility] Confirmed 03/14/21 Active Chronic kidney disease stage 3 Confirmed 05/17/11 Active CAD; s/p CABG 1997, [place] 2006 w/stent; heart transplant 04/30 Confirmed Active Diabetes mellitus with PVD; stents; [facility] [place] [facility] Confirmed Active Diabetes mellitus with [...] back pain Confirmed 06/15/15 Active Microscopic hematuria; [facility] Confirmed Active Neck pain [...] B12 Confirmed Active Tremor - Neurology at [facility] Confirmed 02/07/18 Active Type 2 DM with renal manifestations; [facility] Confirmed 05/04/16 Active Vitamin D deficiency Confirmed Active 1EF 20-25% prior to transplant Diagnosis Diagnosis Type Effective Dates Health Status Cl inical Service Informant Viral syndrome Discharge Diagnosis 03/20/23 Arm mass Discharge Diagnosis 03/20/23 Vital Signs Most recent to oldest [Reference Range]: 1 Height 173 cm (03/20/23 8:55 AM) Weight 102.5 kg (03/20/23 8:55 AM) Oxygen Saturation [94-100 %] 100 % (03/20/23 8:55 AM) Pulse Rate [55-90 bpm] 98 bpm *H* (03/20/23 8:55 AM) Body Mass Index [18.5-24.99 kg/m2] 34.25 kg/m2 *>HHI* (03/20/23 8:55 AM) Blood Pressure [90-138/55-84 mm Hg] 136/ 79mm Hg (03/20/23 8:55 AM) Blood pressure sites Arm, left (03/20/23 8:55 AM) Social History Social History Type Response Smoking Status Former smoker, quit more than 30 days ago entered on: 10/24/22 Sex Patient Care team information Care Team Personnel Name: [place] , Nenita Position: [facility] RN Supv Member Role: Primary Care Nurse Name: Sherice Mariscal RN Position: S RN Member Role: Primary Care Nurse Name: Najma Michael RN Position: [facility] RN Member Role: Primary Care Nurse Name: Aleja CAN FILLING MACHINE OPERATORMallory Position: Reference Physician Member Role: Primary Care Nurse Address: Address: [address] [place] [address]- [place] Name: Scarlet Rosenthal RN Position: [facility] SN RN Member Role: Primary Care Nurse Name: Dung Chen MD Position: [facility] Physician - Primary Care Member Role: PCP Address: Address: [address], [place] [address]- [place] Name: Heydi Oviedo RN Position: [facility] Electric Motor And Generator Assembler Member Role: Primary Care Nurse Name: Mercy Veliz RN Position: [facility] RN Member Role: Primary Care Nurse Name: Sandra Cat Position: [facility] Outreach Member Role: Lifetime Consulting Physician Name: Nicki Garcia RN Position: [facility] RN Member Role: Primary Care Nurse Name: Vane Davalos RN Position: [facility] RN Member Role: Primary Care Nurse Name: Belinda Stevenson RN Position: [facility] SN RN Member Role: Primary Care Nurse Name: Luis Peters MD Position: [facility] Renal MD Member Role: Lifetime Consulting Physician Address: Address: [address] [facility] [facility] [address] [facility] [place] [address]- [place] Name: Zulma Martinez MD Position: [facility] Cardiology MD Member Role: Lifetime Consulting Physician Address: Address: [address] [facility] [address] [place] [address]- [place] Name: Evelyn Jean-Baptiste RN Position: [facility] RN Member Role: Primary Care Nurse Name: Hilda Mcdonald RN Position: [facility] RN Member Role: Primary Care Nurse Care Team Related Persons Name: LUCIA BATEMAN Address: home [address] [place] [address]
--- OUTSIDE RECORDS SUMMARY | 2023-05-15 08:53 | XMS_ITS | Continuity of Care Document ---
Author Name Unknown Organization [facility] Address [address] [place] [address]- Care Team Providers Care Work Manager Name Role Phone Dung Chen MD Primary Care Physician [facility]counter [facility] Date(s): 02/14/22 - 03/16/22 [facility] [address] [place] [address] Allergies, Adverse Reactions, Alerts Substance Reaction Severity Status lisinopril Active Immunizations Given and Recorded Vaccine Date Status Refusal Reason SARS-CoV-2 mRNA (zwjyoxx-[id number]) vax 07/18/21 Recorded SARS-CoV-2 (COVID-19) mRNA BNT-162b2 [...] he received this seasons flu vaccine at [place]. 3Admin Note: Patient states he received pneumovax in 2004 at [place]. Medications aspirin 81 mg oral delayed release tablet 81 mg, 1, tablet, By Mouth, Daily, # 30 tablet, Refills 0, Tot. Refills 0, Maintenance, 06/08/21 11:45:00 EST, Route to Pharmacy Electronically, [facility]/pharmacy #[id number], Partial fill upon patient request if the [...] 02/03/22 9:07:00 EDT, Route to Pharmacy Electronically, [facility] ([facility]), 175.3, cm, 01/03/22 13:47:00 EDT, Height, 95.3, kg, 12/06/21 7:36:00 ED... Start Date: 02/03/22 Status: Ordered HumaLOG Cartridge 100 units/mL injectable solution See Instructions, Insert cartridge into Inpen device, inject 16 units subq 3x a day with meals, Maxdaily dose 48 units, E11.65, # 30 mL, 6 Refills, Maintenance, 08/03/21 10:25:00 EDT, [facility], 175, cm, 07/26/21 8:27:00 EDT, [...] 11/11/21 Stop Date: 08/08/22 Status: Ordered Pen [place], 31 G x 8 mm BD Ultra Fine III See Instructions, # 300 each, Refills 6, Tot. Refills 6, Maintenance, use as directed for Type 2 Diabetes Mellitus for 5 injections per day E11.9, 12/09/21 9:52:00 EDT, Supply, 175.3, cm, 12/06/21 7:36:00 EDT, Height, 95.3, kg, 12/06/21 7:36:00 EDT... Start Date: 12/09/21 Stop Date: 08/31/23 Status: Ordered Pen [place], 32 G x 4 mm BD Ultra [...] 09/27/21 11:24:00 EDT, Route to Pharmacy Electronically, [facility]/pharmacy #[id number], 175.3,cm, 09/27/21 10:36:00 EDT, Height, 86.2, [...] r) present Confirmed 06/21/05 Active BPH - [facility] Confirmed 03/14/21 Active Chronic kidney disease stage 3 Confirmed 05/17/11 Active CAD; s/p CABG 1997, [place] 2006 w/stent; heart transplant 04/30 Confirmed Active Diabetes mellitus Confirmed Active Diabetes mellitus with PVD; stents; [facility] Confirmed Active Diabetes mellitus with cataract [...] back pain Confirmed 06/15/15 Active Microscopic hematuria; [facility] Confirmed Active Neck pain Confirmed [...] Confirmed 06/21/05 Active Tremor - Neurology at [facility] Confirmed 02/07/18 Active Type 2 DM with renal manifestations; [facility] Confirmed 05/04/16 Active 1EF 20-25% prior to transplant Social History Social History Type Response Smoking Status Former smoker, quit more than 30 days ago entered on: 06/01/21 Sex Patient Care team information Care Team Personnel Name: Najma Michael RN Position: [facility] RN Member Role: Primary Care Nurse Name: Mallory Masterson NP Position: [facility] PCO Associate Professional Member Role: Primary Care Nurse Name: Dung Chen MD Position: [facility] Primary Care Physician Member Role: PCP Address: Address: [address] [place] [address]- Name: Ivelisse WARREN, Heydi Ontiveros Position: [facility] Hospital Gut Snatcher Member Role: Primary Care Nurse Name: Sandra Cat Position: [facility] Outreach Member Role: Lifetime Consulting Physician Name: Belinda Stevenson RN Position: [facility] RN Member Role: Primary Care Nurse Name: Luis Peters MD Position: [facility] Renal MD Member Role: Lifetime Consulting Physician Address: Address: [address] [facility] [address] [facility] [facility] [place] [address]- [place] Name: Zulma Martinez MD Position: [facility] Cardiology MD Member Role: Lifetime Consulting Physician Address: Address: [address] [place] [address]- [place] Name: Hilda Mcdonald RN Position: [facility] RN Member Role: Primary Care Nurse Care Team Related Persons Name: LUCIA BATEMAN Address: home [address] [place] [address]
--- OUTSIDE RECORDS SUMMARY | 2023-05-15 08:53 | XMS_ITS | Continuity of Care Document ---
Author Name Unknown Organization [facility] Address [address] [place] [address]- Care Team Providers Care Well Reactivator Operator Name Role Phone Dung Chen MD Primary Care Physician [facility] [id number] Date(s): 01/12/23 - 01/19/23 [facility] [address] [place] [address] Attending Physician: Pooja Altman NP Admitting Physician: Pooja Altman NP Referring Physician: Dung Chen MD Allergies, Adverse Reactions, Alerts Substance Reaction Severity Status lisinopril Active Immunizations Given and Recorded Vaccine Date Status Refusal Reason tetanus/diphtheria/pertussis, acel(Tdap) 1 12/08/22 Given tetanus/diphtheria/pertussis, acel(Tdap) 03/27/12 Recorded pneumococcal 20-valent conjugate vaccine 2 12/08/22 Given [id number] 12y+ bivalent booster vax 04/15/22 Recorded influenza [...] vaccine, inactivated 03/07/06 Quinn rded SARS-CoV-2 mRNA ([id number]) vax 07/18/21 Recorded SARS-CoV-2 (COVID-19) mRNA BNT-162b2 [...] Vacc (oldterm) 5 07/14/04 Given 1Result Comment: [facility] [id number] 2Result Comment: [facility] [phone] 3Result Comment: Lot # [id number] Exp. #) SEP 23 4Admin Note: Pt states he received this seasons flu vaccine at [place]. 5Admin Note: Patient states he received pneumovax in 2004 at [place]. Medications amLODIPine 10 mg oral tablet 10 mg, 1, tablet, By Mouth, Daily, # 90 tablet, Refills 3, Tot. Refills 3, Maintenance, 11/03/22 11:30:00 EDT, Route to Pharmacy Electronically, [facility] ([facility] ), Partial fill upon patient request if the prescription is for... Start Date: 11/03/22 Status: Ordered aspirin 81 mg oral delayed release tablet 81 mg, 1, tablet, By Mouth, Daily, # 30 tablet, Refills 0, Tot. Refills 0, Maintenance, 06/08/21 11:45:00 EST, Route to Pharmacy Electronically, [facility]/pharmacy #[id number], Partial fill upon patient request if the [...] 3 Refills, Maintenance, 01/19/23 18:26:00 EDT, [facility] [place],[facility], Partial fill upon patient request if the prescription is for a schedule II opioid drug., 1 sprays Nares, Both Daily, 173, cm, 100... Start Date: 01/19/23 Status: Ordered Freestyle Nona 2 Falconer Freestyle Nona 2 Falconer, See Instructions, # 1 each, Refills 0, [...] mL, 3 Refills, Maintenance, 08/23/22 12:58:00 EDT, [facility] ([facility]), 176, cm... Start Date: 08/23/22 Status: Ordered insulin degludec (concentrated) 200 units/mL subcutaneous solution See Instructions, 30 units in the AM and 30 units in the PM 30 days supply, # 75 mL, 3 Refills, Maintenance, 10/15/22 10:03:00 EDT, [facility], Partial fill upon patient request if [...] Weight Start Date: 08/17/22 Status: Ordered Pen [place], 31 G x 8 mm BD Ultra Fine III See Instructions, # 300 each, Refills 6, Tot. Refills 6, Maintenance, use as directed for Type 2 Diabetes Mellitus for 5 injections per day E11.9, 12/09/21 9:52:00 EDT, Supply, 175.3, cm, 12/06/21 7:36:00 EDT, Height, 95.3, kg, 12/06/21 7:36:00 EDT... Start Date: 12/09/21 Stop Date: 08/31/23 Status: Ordered Pen [place], 32 G x 4 mm BD Ultra [...] Route to Pharmacy Electronically, [facility] ([facility]), 173, cm, 10/12/22 19:31:00 EDT, Height, 106.... Start Date: 10/12/22 Status: Ordered Trulicity Pen 0.75 mg/0.5 mL subcutaneous solution 0.5 mL = 0.75 mg, Subcutaneous Injection, Every week, rotate injection sites, # 6 mL, 0 Refills, Maintenance, 12/08/22 11:17:00 EDT, Solution, [facility] ([facility]), Partial fillupon patient request if [...] capsule, 0 Refills, Maintenance, 06/08/22 12:19:00EST, Capsule, [facility]/pharmacy #[id number], Partial fill upon [...] r) present Confirmed 06/21/05 Active BPH - [facility] Confirmed 03/14/21 Active Chronic kidney disease stage 3 Confirmed 05/17/11 Active CAD; s/p CABG 1997, [place] 2006 w/stent; heart transplant 04/30 Confirmed Active DVT, lower extremity Confirmed Active Diabetes mellitus with PVD; stents; [facility] Confirmed Active Diabetes mellitus with [...] back pain Confirmed 06/15/15 Active Microscopic hematuria; [facility] Confirmed Active Neck pain [...] comorbidity Confirmed Active Tremor - Neurology at [facility] Confirmed 02/07/18 Active Type 2 DM with renal manifestations; [facility] Confirmed 05/04/16 Active 1EF 20-25% prior to transplant Vital Signs Most recent to oldest [Reference Range]: 1 Height 173 cm (01/12/23 2:56 PM) Weight 104.40 kg (01/12/23 2:56 PM) Oxygen Saturation [94-100 %] 98 % (01/12/23 2:56 PM) Pulse Rate [55-90 bpm] 98 bpm *H* (01/12/23 2:56 PM) Body Mass Index [18.5-24.99 kg/m2] 34.88 kg/m2 *>HHI* (01/12/23 2:56 PM) Blood Pressure [90-138/55-84 mm Hg] 100/ 58mm Hg (01/12/23 2:56 PM) Blood pressure sites Arm, left (01/12/23 2:56 PM) Weight Obtained Via Patient/family state d (01/12/23 2:56 PM) Social History Social History Type Response Smoking Status Former smoker, quit more than 30 days ago entered on: 10/24/22 Sex Note * Diann Maravilla: PERFORM, SIGN, VERIFY Event Display: Patient Education/Instruction Authored Date: [id number] [facility] *[facility] [address] Clinical Summary Name REJI BATEMAN Age 72 Years 1950 PCP Dung Chen MD PCP Visit Date 01/12/2023 14:44:00 Additional Instructions: Scheduled Appointments?? Future Appointments ?*[facility] ?[address]??[place],??[place],??[address] ?Phone:??--?Fax:??-- ?Appt. Date:??01/16/2023?7:45 AM ?Scheduled Provider:??Hien CALLOWAY, Carlos Alberto Follow-Up Instructions ?? With: Address: When: Pooja Altman NP 09/15/2022 12:00 AM Comments: Office visit here 6 months SYDNEE with great toe pressures Diagnosis Medications: Please continue your medications until treatment is completed or stopped by your provider. Discuss any questions related to medications with your provider. Medications to Continue with No Changes These medications were not printed or sent to your pharmacy Amlodipine (amLODIPine 10 mg oral tablet) 1 tab(s) Oral Daily. Refills: 3. Next Dose: Aspirin (aspirin 81 mg oral delayed release tablet) 1 tab(s) Oral Daily for 30 Days. Refills: 0. Next Dose: Cholecalciferol (Vitamin D3 50,000 intl units oral capsule) 1 capsule Oral every week for 8 week(s). Refills: 0. Next Dose: Clopidogrel (Plavix 75 mg oral tablet) 1 tab(s) Oral Daily. Next Dose: dulaglutide (Trulicity Pen 0.75 mg/0.5 mL subcutaneous solution) 0.5 Milliliter Subcutaneous Injection every week. rotate injection sites. Refills: 0. Next Dose: Duloxetine (duloxetine 20 mg oral enteric coated capsule) 1 capsule Oral twice a day. Next Dose: Durable Medical Equipment (Freestyle Nona 2 Falconer) Use to monitor blood glucose, scan sensor uponwaking, before meals and at bedtime. E11.65. Refills: 0. Next Dose: Durable Medical Equipment (Freestyle Nona 2 Sensors) Use to monitor blood glucose, scan sensor upon waking, before meals and at bedtime. E11.65. Refills: 11. Next Dose: Durable Medical Equipment (Freestyle Nona Monitor) Use with Freestyle 14 day Sensor to monitor Blood Glucose. E1165. Refills: 0. Next Dose: Durable Medical Equipment (Freestyle Nona Sensor) e11.65, use with freestyle nona 14 day reader for frequent glucose monitoring, change every 14 days, 28 day supply. Refills: 13. Next Dose: Durable Medical Equipment (Pen [place], 31 G x 8 mm BD Ultra Fine III) use as directed for Type 2 Diabetes Mellitus for 5 injections per day E11.9. Refills: 6. Next Dose: Durable Medical Equipment (Pen [place], 32 G x 4 mm BD Ultra Fine III) Next Dose: Fludrocortisone (fludrocortisone 0.1 mg oral tablet) Next Dose: Fluticasone Nasal (fluticasone 50 mcg/inh nasal spray) Next Dose: Gabapentin (gabapentin 600 mg oral tablet) 1 tab(s) Oral 3 times a day. Next Dose: insulin degludec (insulin degludec (concentrated) 200 units/mL subcutaneous solution) 30 units in the AM and 30 units in the PM 30 days supply. Refills: 3. Next Dose: Insulin Lispro (Humalog Cartridge 100 units/mL subcutaneous injection) INSERT CARTRIDGE INTO INPEN DEVICE AND INJECT SUBCUTANEOUSLY 16 UNITS 3 TIMES DAILY WITH MEALS - MAX DAILY DOSE: 48 UNITS. Refills: 3. Next Dose: Magnesium Oxide (magnesium oxide 400 mg oral tablet) 1 tab(s) Oral twice a day. Next Dose: Mycophenolate Sodium (mycophenolic acid 360 [...] NEEDED FOR INSOMNIA. Refills: 3. Next Dose: Valsartan (valsartan 80 mg oral tablet) 1 tab(s) Oral Daily. Refills: 0. Next Dose: Allergy Info:?? lisinopril Medications Given This Visit Future Orders ?VL Ankle Brachial Indices? Order Date:01/12/23?- Complete within?6 months Vital Signs Height 173 cm Weight 104.40 kg BMI 34.88 kg/m2 Blood Pressure 100 mm Hg/58 mm Hg Temperature Pulse Rate 98 bpm Respiratory Rate 02 Sat Mode of Delivery 98 %/ You can now view a summary of your hospital visit from the comfort of your home through a free online portal called [employer] is a website that allows you to securely view your medical information including discharge summary, medications and follow-up visits. ??You can alsosend a secure electronic message to your doctor???s office to request appointments, renew medications or just ask a question. You can enroll at [email or web address] or register during your next office visit. [...] care provider, you may find a [facility] provider by calling [facility] [employer] Link at [phone]. [facility], in keeping with [facility] guidance, no longer requires face masks for staff, patientsor visitors in most situations. Similar to time spent indoors at other locations, there is the chance that you were exposed to respiratory viruses during your time with us (such as flu or COVID-19).? If you develop symptoms concerning for a viral respiratory infection, please seek testing (and treatment if indicated) from your medical provider or home test kit. For information about the plan of care [...] Member Role: Primary Care Nurse Address: Address: [address] [place] [address]- [place] Name: Scarlet Rosenthal RN Position: [facility] RN Member Role: Primary Care Nurse Name: Dung Chen MD Position: [facility] Physician - Primary Care Member Role: PCP Address: Address: [address] [facility] [place] [address]- [place] Name: Heydi Oviedo RN Position: [facility] [place] Tender Member Role: Primary Care Nurse Name: Sandra Cat Position: [facility] Outreach Member Role: [...] [facility] [place] [address]- [place] Name: Zulma Martinez MD Position: [facility] Cardiology MD Member Role: Lifetime Consulting Physician Address: Address: [address] [place] [address] [address] [place] [address]- [place] Name: Evelyn Jean-Baptiste RN Position: [facility] RN Member Role: Primary Care Nurse Name: Hilda Mcdonald RN Position: [facility] RN Member Role: Primary Care Nurse Care Team Related Persons Name: LUCIA BATEMAN Address: home [address] [place] [address]
--- OUTSIDE RECORDS SUMMARY | 2023-05-15 08:53 | XMS_ITS | Continuity of Care Document ---
Author Name Unknown Organization [facility] Address [address] [place] [address]- Care Team Providers Care Mule Developer Name Role Phone Dung Chen MD Primary Care Phys[id number] Date(s): 10/23/19 - 10/30/19 [facility] [address] [place] [address]- [facility] Attending Physician: Felix Duque MD Admitting Physician: [...] he received this seasons flu vaccine at [place]. 3Admin Note: Patient states he received pneumovax in 2004 at [place]. Medications aspirin 81 mg oral tablet 1 [...] Refills, Maintenance, 06/09/19 9:51:00 EST, EC Capsule, [facility]/pharmacy #[id number], 175, cm, 12/05/18 15:23:00 [...] 05/27/19 16:08:00 EST, Route to Pharmacy Electronically, [facility]/pharmacy #[id number], 175, cm, 12/05/18 15:23:00 EDT, Height, 84.5, [...] recent to oldest [Reference Range]: 1 Height 175 cm (10/22/19 2:41 PM) Weight 92 kg (10/22/19 2:41 PM) Body Mass Index [18.5-24.99] 30.04 *>HHI* (10/22/19 2:41 PM) Weight Obtained Via Patient/family state d (10/22/19 2:41 PM) Social History Social History Type Response Smoking Status Former smoker; Tobac co user in household: No; Other: Quit 1997; entered on: 03/08/17 Sex
--- OUTSIDE RECORDS SUMMARY | 2023-05-15 08:53 | XMS_ITS | Continuity of Care Document ---
Author Name Unknown Organization [facility] ter Address [address] [place] [address]- Care Team Providers Care Four Slide Operator Name Role Phone Dung Chen MD Primary Care Physician [place] [facility] [place](s[place] 05/06/21 - 05/07/[address] [address]- Encounter Diagnosis COVID-19(Final) - 05/06/21 Precordial chest pain(Final) - 05/06/21 Heart transplant status(Final) - 05/06/21 Discharge Disposition: A-Transfer SNF Attending Physician: Viviane Brand MD Admitting Physician: Viviane Brand MD Referring Physician: Not on Staff, Referring [...] he received this seasons flu vaccine at [place]. 3Admin Note: Patient states he received pneumovax in 2004 at [place]. Medications aspirin 81 mg oral tablet 1 tablet = 81 mg, By Mouth, Daily, # 30 tablet, 0 Refills, Maintenance, 04/07/17 12:54:17, Tablet Start Date: 04/07/17 Status: Ordered Ativan 1 mg oral tablet See Instructions, 1 tablet By Mouth 30 minutes before MRI. May repeat once at time of test., # 2 tablet, 0 Refills, Maintenance, 08/17/20 17:02:00 EDT, [facility]/pharmacy #[id number], Partial fill upon patient [...] Refills, Maintenance, 06/09/19 9:51:00 EST, EC Capsule, [facility]/pharmacy #[id number], 175, cm, 12/05/18 15:23:00 [...] 3, 04/13/21 9:50:00 EST,Route to Pharmacy Electronically, [facility]/pharmacy #[id number], 176, cm, 03/30/21 10:45:00 EST, Height, 94.72, kg, 10/09/19 14:08:00 EDT, Dry Weight Start Date: 04/13/21 Status: Ordered HumaLOG Cartridge 100 units/mL injectable solution See Instructions, Use 3 times daily before meals. E11.65.; for use with InPen. 90-day supply., # 90mL, 3 Refills, Maintenance, 04/15/21 19:46:00 EST, Solution, [facility], Humalog [facility]: [id number] (cartridges), 176, cm, 03/30/21 10:45:00 E... Start Date: 04/15/21 Status: Ordered In Pen- Humalog, Blue In Pen- Humalog, Blue, See Instructions, # 1 each, Refills 1, Tot. Refills 1, Maintenance, Use to administer Humalog 3 times daily before meals. E11.65., 04/15/21 19:48:00 EST, Humalog Blue: [id number], Supply, 176, cm, 03/30/21 10:45:00 EST, Height... [...] Compound Start Date: 10/15/18 Status: Ordered Pen [place], 31 G x 5 mm BD Ultra Fine III See Instructions, # 120 each, Refills 6, Tot. Refills 6, Maintenance, injects 4 times a day E11.65,08/24/20 9:11:00 EDT, fax [phone], Compound, 176, cm, 08/17/20 16:06:00 EDT, Height, 94.72, kg, 10/09/19 14:08:00 EDT, Dry Weight Start Date: 08/24/20 Status: Ordered Plavix 75 mg oral tablet 75 mg, 1, tablet, By Mouth, Daily, # 90 tablet, Refills 3, Tot. Refills 3, Maintenance, 01/28/20 14:36:00 EDT, Route to Pharmacy Electronically, [facility]/pharmacy #[id number], 176, cm, 01/06/20 19:56:00 [...] 05/27/19 16:08:00 EST, Route to Pharmacy Electronically, [facility]/pharmacy #[id number], 175, cm, 12/05/18 15:23:00 [...] disorde r with predominant pain(Confirmed) Active Results Radiology Reports * Exam Date Time Procedure Performing Provider Status 05/06/21 3:41 PM Chest Portable Stefany Bagley; Auth (V erified) Notes: (Chest Portable) Reason For Exam: cp cough;Other: RESULT: Chest Portable Chest Portable Hx of Present Illness: 7 10 substernal chest pain pain radiating to back. Pt received 2 nitro by EMS, now 5 10. Pt covid positive on 1 10; Reason: Other:; cp cough; Clinical Question(s): Other:; pna chf covid COMPARISON: 11/15/2011 FINDINGS: LINES AND TUBES: None. LUNGS AND PLEURA: Central vascular markings are prominent, accentuated by low lung volumes. There is mild perihilar interstitial opacity which is nonspecific in the setting of colon with infection and could be due to pulmonary edema or pneumonia. No pleural effusion. No pneumothorax. HEART, MEDIASTINUM AND AIDA: Status post median sternotomy. Heart is normal in size. Aorta is calcified. BONES AND SOFT TISSUES: No acute abnormality. IMPRESSION: Prominent indistinct central vascular markings and perihilar interstitial opacity. These findings are nonspecific and could be seen with pulmonary edema as well as viral pneumonia. WSN: [id number] Ordering Physician: Marco Redding Dictated By: Lior Calhoun MD Dictated Date/Time: 05/06/21 3:43 pm Reviewed By: Lior Calhoun MD Signed By: Lior Calhoun MD Signed Date/Time: 05/06/21 3:43 pm Transcribed By: MAVIS Transcribed Date/Time: 05/06/21 3:42 pm Vital Signs Most recent to oldest [Reference Range]: 1 2 3 Oxygen Saturation [94-100 %] 96 % (05/07/21 3:27 AM) 97 % (05/07/21 12:46 AM) 96 % (05/06/21 8:59 PM) Pulse Rate [55-90 bpm] 93 bpm *H* (05/07/21 3:27 AM) 86 bpm (05/07/21 12:46 AM) 90 bpm (05/06/21 8:59 PM) Blood Pressure [90-138/55-84 mm Hg] 148/93mm Hg *H* (05/07/21 3:27 AM) 160/85mm Hg *H* (05/07/21 12:46 AM) 145/81mm Hg *H* (05/06/21 8:59 PM) Respiratory Rate [16-30 br/min] 18 br/min (05/07/21 3:27 AM) 22 br/min (05/07/21 12:46 AM) 21 br/min (05/06/21 8:59 PM) Temperature [96.8-100.4 DegF] 98.3 DegF (05/07/21 3:27 AM) 98.3 DegF (05/06/21 3:10 PM) Mode of Delivery (Oxygen) Room air (05/07/21 3:27 AM) Room air (05/06/21 6:00 PM) Room air (05/06/21 4:30 PM) Blood pressure sites Arm, left (05/06/21 6:00 PM) Arm, left (05/06/21 4:30 PM) Arm, left (05/06/21 4:00 PM) Temperature Route Oral (05/07/21 3:27 AM) Oral (05/06/21 3:10 PM) Social History Social History Type Response Smoking Status Former smoker; Tobac co user in household: No; Other: Quit 1997; entered on: 03/08/17 Sex
--- OUTSIDE RECORDS SUMMARY | 2023-05-15 08:54 | XMS_ITS | Continuity of Care Document ---
Author Name Unknown Organization [facility] ter Address [address] [place] [id number] Care Team Providers Care Inside Upholsterer Name Role Phone Dung Chen MD Primary Care Physician Encounter [facility] Date(s): 04/30/22 - 05/03/[address] [id number] Encounter Diagnosis Cellulitis of right leg(Final) - 04/30/22 Discharge Disposition: A-D/C Home Attending Physician: Rigoberto Narvaez MD Admitting Physician: Vlad De La Garza MD Referring Physician: Not on Staff, Referring MD Allergies, Adverse Reactions, Alerts Substance Reaction Severity Status lisinopril Active Immunizations Given and Recorded Vaccine Date Status Refusal Reason SARS-CoV-2 mRNA ([id number]) vax 07/18/21 Recorded SARS-CoV-2 (COVID-19) mRNA BNT-162b2 vac 01/15/21 Recorded SARS-CoV-2 (COVID-19) mRNA BNT-162b2 vac 06/13/20 Recorded SARS-CoV-2 (COVID-19) mRNA BNT-162b2 vac 05/17/20 Recorded influenza virus vaccine, inactivated 01/07/21 Quinn rded influenza virus vaccine, inactivated 01/13/20 Uqinn rded influenza virus vaccine, inactivated 02/06/19 Quinn [...] he received this seasons flu vaccine at [facility]. 3Admin Note: Patient states he received pneumovax in [address] [facility] [place]. Medications amLODIPine 5 mg oral tablet 5 mg, Tablet, By Mouth, 05/03/22 9:00:00 EST Start Date: 05/03/22 Stop Date: 05/03/22 Status: Completed amLODIPine 5 mg oral tablet 5 mg, 1, tablet, By Mouth, Daily, # 30 tablet, Refills 0, Tot. Refills 0, Maintenance, 05/03/22 10:03:00 EST, Route to Pharmacy Electronically, [facility]/pharmacy #[id number], Partial fill upon patient request if the prescription is for a schedule II opioid drug.... Start Date: 05/03/22 Status: Ordered aspirin 81 mg oral delayed [...] 05/15/22 10:08:00 EST, 05/03/22 10:08:00 EST, Capsule, [facility][id number], Partial fill upon [...] oral capsule 300 mg, Capsule, By Mouth, 05/03/22 9:00:00 EST Start Date: 05/03/22 Stop Date: 05/03/22 Status: Completed gabapentin 300 mg oral capsule 1, capsule, By Mouth, 3 times a day, # 270 capsule, Refills 5, Tot. Refills 5, 02/03/22 9:07:00 EDT, Route to Pharmacy Electronically, [facility] ([facility]), 175.3, cm, 01/03/22 13:47:00 EDT, Height, 95.3, kg, 12/06/21 7:36:00 ED... Start Date: 02/03/22 Status: Ordered HumaLOG Cartridge 100 units/mL injectable solution See Instructions, Insert cartridge into Inpen device, inject 16 units subq 3x a day with meals, Maxdaily dose 48 units, E11.65, # 30 mL, 6 Refills, Maintenance, 08/03/21 10:25:00 EDT, [facility], 175, cm, 07/26/21 8:27:00 EDT, [...] Weight Start Date: 04/03/22 Status: Ordered Pen Hamilton, 31 G x 8 mm BD Ultra Fine III See Instructions, # 300 each, Refills 6, Tot. Refills 6, Maintenance, use as directed for Type 2 Diabetes Mellitus for 5 injections per day E11.9, 12/09/21 9:52:00 EDT, Supply, 175.3, cm, 12/06/21 7:36:00 EDT, Height, 95.3, kg, 12/06/21 7:36:00 EDT... Start Date: 12/09/21 Stop Date: 08/31/23 Status: Ordered Pen Hamilton, 32 G x 4 mm BD Ultra [...] 09/27/21 11:24:00 EDT, Route to Pharmacy Electronically, [facility]/pharmacy #[id number], 175.3,cm, 09/27/21 10:36:00 EDT, Height, [...] r) present Confirmed 06/21/05 Active BPH - [facility] Confirmed 03/14/21 Active Chronic kidney disease stage 3 Confirmed 05/17/11 Active CAD; s/p CABG 1997, [place] 2006 w/stent; heart transplant 04/30 Confirmed Active Diabetes mellitus with PVD; stents; [facility] Confirmed Active Diabetes mellitus with cataract [...] back pain Confirmed 06/15/15 Active Microscopic hematuria; [facility] Confirmed Active Neck pain [...] Confirmed 06/21/05 Active Tremor - Neurology at [facility] Confirmed 02/07/18 Active Type 2 DM with renal manifestations; [facility] Confirmed 05/04/16 Active 1EF 20-25% prior to transplant Results Orders for Microbiology Reports Name Date Blood Culture 04/30/22 Blood Culture #2 04/30/22 Microbiology Reports TEST:Blood Culture STATUS:Unauthenticated BODY SITE: SOURCE:Blood COLLECTED DATE/TIME:04/30/22 3:40 PM Blood Culture SPECIMEN DESCRIPTION : BLOOD SPECIAL REQUESTS : NONE CULTURE : NO GROWTH 3 DAYS REPORT STATUS : PRELIMINARY REPORT TEST:Blood Culture, Second Order STATUS:Unauthenticated BODY SITE: SOURCE:Blood COLLECTED DATE/TIME:04/30/22 3:30 PM Blood Culture, Second Order SPECIMEN DESCRIPTION : BLOOD SPECIAL REQUESTS : NONE CULTURE : NO GROWTH 3 DAYS REPORT STATUS : PRELIMINARY REPORT Radiology Reports * Exam Date Time Procedure Performing Provider Status 05/02/22 7:11 AM Chest Portable Greenberg , Frank; Auth (Gale ified) Notes: (Chest Portable) Reason For Exam: Reported falling prior to arrival, new onset pain L side;Pleuritic Pain RESULT: Chest Portable Chest Portable Reason: Pleuritic Pain; Reported falling prior to arrival, new onset pain L side; Clinical Question(s): Trauma COMPARISON: 06/22/2021 FINDINGS: LINES AND TUBES: None. LUNGS AND PLEURA: Clear lungs. Normal pulmonary vascularity. No pleural effusion. No pneumothorax. HEART, MEDIASTINUM AND AIDA: Heart is normal in size. Evidence of median sternotomy and CABG surgery. Normal mediastinal and hilar contour. BONES AND SOFT TISSUES: No acute abnormality. IMPRESSION: No acute abnormality. WSN: [id number] Ordering Physician: Becky Zhou Dictated By: Vilma Rowe MD, I Dictated Date/Time: 05/02/22 12:53 p Reviewed By: Vilma Rowe MD, I Signed By: Vilma Rowe MD, I Signed Date/Time: 05/02/22 12:53 pm Transcribed By: MAVIS Transcribed Date/Time: 05/02/22 12:52 pm * Exam Date Time Procedure Performing Provider Status 05/02/22 7:11 AM Shoulder Min 2 Views Left Greenberg , Frank ; Auth (Verified) Notes: (Shoulder Min 2 Views Left) Reason For Exam: Pt reports fall prior to arrival; new onset pain in shoulder;Pain RESULT: Shoulder Min 2 Views Left Shoulder Min 2 Views Left, 2 views Reason: Pain; Pt reports fall prior to arrival; new onset pain in shoulder; Clinical Question(s): Fracture COMPARISON: None. FINDINGS: No fracture or dislocation. No arthritic change of the glenohumeral joint. Moderate degenerative changes of the AC joint. The portion of the clavicle included on the exam is intact. No calcification of the rotator cuff. IMPRESSION: Degenerative changes, no acute fracture or dislocation involving bones or joints of the left shoulder WSN: [id number] Ordering Physician: Becky Zhou Dictated By: Vilma Rowe MD, I Dictated Date/Time: 05/02/22 12:52 p Reviewed By: Vilma Rowe MD, I Signed By: Vilma Rowe MD, I Signed Date/Time: 05/02/22 12:52 pm Transcribed By: MAVIS Transcribed Date/Time: 05/02/22 12:50 pm * Exam Date Time Procedure Performing Provider Status 05/01/22 5:05 PM US Extremity Non-Vas cular Right Limited Diann Castellanos; Auth (Verified) Notes: (US Extremity Non-Vascular Right Limited) Reason For Exam: Right heel- blood blister vs abscess; ?dranagable;Abscess RESULT: US Extremity Non-Vascular Right Limited US Extremity Non-Vascular Right Limited Reason: Abscess; Right heel- blood blister vs abscess; ?drainable; Clinical Question(s): Abscess COMPARISON: None. FINDINGS: High-resolution, linear array imaging of the superficial soft tissues of the right medial heel was performed in the area of the patient's symptoms. There is no sonographically apparent mass or fluid collection. There is soft tissue edema and mild hyperemia. IMPRESSION: Cellulitis without evidence of an abscess. WSN: [id number] Ordering Physician: Rigoberto Narvaez Dictated By: Mar Yin MD Dictated Date/Time: 05/01/22 11:19 p Reviewed By: Mar Yin MD Signed By: Mar Yin MD Signed Date/Time: 05/01/22 11:19 pm Transcribed By: MAVIS Transcribed Date/Time: 05/01/22 11:18 pm * Exam Date Time Procedure Performing Provider Status 05/01/22 4:12 AM US Doppler Ext Lower Venous Right Charlotte Simmons; Auth (Verified) Notes: (US Doppler Ext Lower Venous Right) Reason For Exam: Cellulitis RESULT: US Doppler Ext Lower Venous Right US Doppler Ext Lower Venous Right Reason: Cellulitis; Clinical Question(s): Thrombus COMPARISON: None IMAGING TECHNIQUE: Ultrasound of the veins from [...] femoral vein: Patent. No thrombosis. OTHER FINDINGS: There is diffuse calf edema. IMPRESSION: No evidence of deep venous thrombosis. WSN: [id number] Ordering Physician: Clark Noel Dictated By: Lior Gottlieb MD Dictated Date/Time: 05/01/22 9:23 am Reviewed By: Lior Gottlieb MD Signed By: Lior Gottlieb MD Signed Date/Time: 05/01/22 9:23 am Transcribed By: MAVIS Transcribed Date/Time: 05/01/22 9:23 am * Exam Date Time Procedure Performing Provider Status 05/01/22 4:32 AM Tibia/Fibula 2 Views Right Hunter Jaramillo ra (Verified) Notes: (Tibia/Fibula 2 Views Right) Reason For Exam: Infection RESULT: Tibia/Fibula 2 Views Right Ankle 2 Views Right, Tibia/Fibula 2 Views Right REASON: Infection; Clinical Question(s): Osteomyelitis COMPARISON: None. FINDINGS: No evidence of acute or healing fracture or bone lesion. Intact ankle mortise and talar dome. No arthritic changes. Surgical clips in the medial leg. There are atherosclerotic vascular calcifications. IMPRESSION: No evidence of acute osseous abnormality. WSN: [id number] Ordering Physician: Clark Noel Dictated By: Lior Ogden MD Dictated Date/Time: 05/01/22 8:22 am Reviewed By: Lior Ogden MD Signed By: Lior Ogden MD Signed Date/Time: 05/01/22 8:22 am Transcribed By: MAVIS Transcribed Date/Time: 05/01/22 8:21 am * Exam Date Time Procedure Performing Provider Status 05/01/22 4:32 AM Ankle 2 Views Right Adriel Joseph ruthie; Auth (Verified) Notes: (Ankle 2 Views Right) Reason For Exam: Infection RESULT: Ankle 2 Views Right Ankle 2 Views Right, Tibia/Fibula 2 Views Right REASON: Infection; Clinical Question(s): Osteomyelitis COMPARISON: None. FINDINGS: No evidence of acute or healing fracture or bone lesion. Intact ankle mortise and talar dome. No arthritic changes. Surgical clips in the medial leg. There are atherosclerotic vascular calcifications. IMPRESSION: No evidence of acute osseous abnormality. WSN: [id number] Ordering Physician: Clark Noel Dictated By: Lior Ogden MD Dictated Date/Time: 05/01/22 8:22 am Reviewed By: Lior Ogden MD Signed By: Lior Ogden MD Signed Date/Time: 05/01/22 8:22 am Transcribed By: MAVIS Transcribed Date/Time: 05/01/22 8:21 am Vital Signs Most recent to oldest [Reference Range]: 1 2 3 Height 175 cm (05/03/22 8:12 AM) 175 cm (05/02/22 4:02 PM) 175 cm (05/02/22 3:59 PM) Weight 101.1 kg (05/02/22 4:02 PM) 101.1 kg (05/02/22 3:59 PM) 103.9 kg (05/02/22 3:04 PM) Oxygen Saturation [94-100 %] 97 % (05/03/22 8:12 AM) 95 % (05/03/22 2:00 AM) 99 % (05/02/22 8:00 PM) Pulse Rate [55-90 bpm] 92 bpm *H* (05/03/22 8:12 AM) 89 bpm (05/03/22 2:00 AM) 95 bpm *H* (05/02/22 8:00 PM) Body Mass Index [18.5-24.99 kg/m2] 33.01 kg/m2 *>HHI* (05/02/22 4:02 PM) 33.01 kg/m2 *>HHI* (05/02/22 3:59 PM) 33.93 kg/m2 *>HHI* (05/02/22 3:04 PM) Blood Pressure [90-138/55-84 mm Hg] 150/77mm Hg *H* (05/03/22 9:10 AM) 150/77mm Hg *H* (05/03/22 8:12 AM) 128/80mm Hg (05/03/22 2:00 AM) Respiratory Rate [16-30 br/min] 18 br/min (05/03/22 10:10 AM) 18 br/min (05/03/22 9:10 AM) 18 br/min (05/03/22 8:12 AM) Temperature [96.8-100.4 DegF] 97.8 DegF (05/03/22 8:12 AM) 97.9 DegF (05/03/22 2:00 AM) 97.8 DegF (05/02/22 8:00 PM) Mode of Delivery (Oxygen) Room air (05/03/22 8:12 AM) Room air (05/03/22 2:00 AM) Room air (05/02/22 8:00 PM) Blood pressure sites Arm, right (05/03/22 8:12 AM) Arm, right (05/03/22 2:00 AM) Arm, right (05/02/22 8:00 PM) Temperature Route Oral (05/03/22 8:12 AM) Oral (05/03/22 2:00 AM) Oral (05/02/22 8:00 PM) Dry Weight 101.1 kg (05/02/22 4:02 PM) 103.9 kg (05/02/22 3:04 PM) 103.9 kg (05/02/22 8:30 AM) Weight Obtained Via Bed scale (05/02/22 3:59 PM) Patient/family stated (04/30/22 7:29 PM) Dry Weight Obtained Via Patient/family stated (04/30/22 7:29 PM) Social History Social History Type Response Smoking Status Former smoker, quit more than 30 days ago entered on: 06/01/21 Sex Admission evaluation note * Clark Noel MD: PERFORM, MODIFY Event Display: Admission Note Authored Date: [id number] Patient: ??REJI BATEMAN ? Age:??71 Years?Sex:??Male?:??1950?? History of Present Illness 71 year old gentleman with history of type 2 DM, hyperparathyroidism, CAD s/p CABG, heart transplant in 2013, chronic kidney disease stage 3, neuropathy, ARNULFO, hypercholesterolemia, presented to the emergency room for redness and swelling of his leg with wound to the right anterior jason and right heel. States that the symptoms started on 04/28 with some burning sensation as well that has since resolved. Patient is not sure where exactly his wounds on his legs came from but endorses getting multiple scratches on doors and by his dog. He also had a fall last week preceding the development of the redness, was not sure which day it was though. He denies any discharge from the scarred over wounds. States that he came to the emergency room because he noticed a darker spot on his heel that was painful to walk on. Denies fevers, chills, skin sluffing, bilateral lower extremity edema. Does note that his left leg has chronically poor sensation and he has trouble moving it due to diabeticpolyneuropathy. ?? In the emergency room he was noted to be afebrile, tachycardic to 101, hypertensive to 187/88 and saturating well on room air. Initial lab work significant for thrombocytopenia, normal WBC count (although patient is on chronic immunosuppression) with neutrophilic predominance, alkalemia to 30, hy perglycemia to 202. Lactate 2.1, downtrended to 1.8 without intervention. Patient's redness was demarcated by Ed providers earlier in their shift (prior to 7:00PM 04/30 and there was no redness expanded beyond these soto at the time of my evaluation at 3AM. Review of Systems General:??Denies fevers or chills, changes in appetite HEENT: Denies headache, acute vision changes, difficulty swallowing?? Cardiovascular:??Denies any chest pain or palpitations. Pulmonary:??Denies any shortness of breath or cough. GI:??Denies any abdominal pain, nausea, vomiting, diarrhea or constipation, blood in stool or melena :??Denies any urinary retention, burning with urination, increased frequency, blood in urine MSK:??Denies joint pain or myalgias. See above for other positives. NEURO:??+ chronic numbness in left leg at the level of the foot. PSYCH:??Denies depression,??anxiety Objective Measurements?? Height: 175 cm (04/30/22) Weight: 103.9 kg (04/30/22) Dry Weight: 103.9 kg (04/30/22) Body Mass Index:??33.93 kg/m2??Critical (04/30/22) ? Vital Signs?? Temperature: 98.4 DegF (04/30/22 19:29:00) Temperature Route: Oral (04/30/22 19:29:00) Pulse Rate:??103 bpm??High (04/30/22 20:59:00) Respiratory Rate: 19 br/min (04/30/22 20:59:00) Systolic Blood Pressure:??176 mm Hg??High (04/30/22 19:29:00) Diastolic Blood Pressure:??93 mm Hg??High (04/30/22 19:29:00) Blood pressure sites: Arm, left (04/30/22 19:29:00) Mean Arterial Pressure: 121 mm Hg (04/30/22 19:29:00) Pulse Pressure: 83 mm Hg (04/30/22 19:29:00) Oxygen Saturation: 95 % (04/30/22 20:59:00) Mode of Delivery (Oxygen): Room air (04/30/22 20:59:00) Early Warning Score: 6 (04/30/22 20:59:44) ? Intake/Output? 04/30 18:55 05/01 07:00 04/30 07:00 04/29 07:00 04/28 07:00 ?? 05/01 03:35 05/01 03:35 05/01 06:59 04/30 06:59 04/29 06:59 Intake ?200.0 ?0 ?200.0 ?0 ?0 Output ?0 ?0 ?0 ?0 ?0 Net Total ?200.0 ?0 ?200.0 ?0 ?0 ? Physical Exam Recent Vital Signs Temperature: 98.4 DegF (04/30/22 19:29:00) Pulse Rate:??103 bpm??High (04/30/22 20:59:00) Respiratory Rate: 19 br/min (04/30/22 20:59:00) Systolic Blood Pressure:??176 mm Hg??High (04/30/22 19:29:00) Diastolic Blood Pressure:??93 mm Hg??High (04/30/22 19:29:00) Oxygen Saturation: 95 % (04/30/22 20:59:00)? General Appearance:??NAD, lying in bed. Cardiovascular: RRR S1 and S2 heard with no M/R/G. No JVD. Respiratory: ??Breath sounds clear to auscultation bilaterally. No wheezing. Good air movement throughout both lungs. GI: Soft. Nontender and nondistended. Normal bowel sounds present throughout abdomen.??Obese abdomen. MS:?Bright erythematous right leg throughout majority of jason and circling to the back of leg. Warm to touch with some pitting but not tender.??NO expressible drainage. ??Darkened right heel. Dry skin overlying both legs with multiple scars from previous wounds. Neuro: ??No slurred speech. ??Patient seen moving their upper and lower extremities independently except at left foot where patient had difficulty dorsiflexing and plantarflexing the foot. Psych: Alert and oriented x3. Appropriate and pleasant. Lines: Peripheral IV in place.?? Assessment/Plan Diagnoses Cellulitis of right leg ??(L03.115) ?? Assessment:? 81 year old male with 71 year old gentleman with history of type 2 DM, hyperparathyroidism, CAD s/p CABG, heart transplant in 2014, chronic kidney disease stage 3, neuropathy, ARNULFO, hypercholesterolemia, presented to the emergency room for redness and swelling of his leg with wound to the right an terior jason and right heel consistent with cellulitis. Patient admitted for monitoring of infectionand IV antibiotics given immunosuppression. ?? Right lower extremity purulent cellulitis - Symptoms started about 4-5 days prior to presentation, after a fall. Patient also has multiple old scabs that might be nidus of infection - Warm to touch without drainage or significant tenderness - Blackened heel and pain with walking due make me concerned for potential osteomyelitis given immunosuppression and type 2 diabetes - No open wounds to attempt probing to bone. - S/p 1 dose of IV vancomycin - No history of blood clots or immobility ?? Plan: - Continue vancomycin - If worsening, spreads beyond skin markings would add on Zosyn for better GA strep coverage - If drainage present would wound culture - XR right tib/fib and??ankle to look for signs of osteomyelitis - Follow up blood cultures, ESR, CRP ?? Hypertension Tachycardia s/p heart transplant 2014 -??Elevated Blood pressures and tachycardia likely in the setting of acute infection. ?? Plan: ??- Continue to monitor while on therapy for infection - Continue home mycophenolate, tacrolimus and prednisone - Cardiology aware of patient given history of heart transplant, will place consult??with team in AM for help with transplant medication management - If acutely worsens, would reach out to transplant team at [facility] ?? Type 2 diabetes mellitus Plan: - POC qACHS + SSI - Converted home degludec to insulin glargine - Hypoglycemia measures ordered ?? Thrombocytopenia - May be in the setting of infection although usually see a reactive thrombocytosis - No signs of acute bruising ?? Plan: ??- Continue to monitor ?? Chronic stable conditions: ??- s/p heart transplant: Continue home tacrolimus, prednisone, mycophenolate, touch base with cardiac transplant team at [facility] if acutely worsening ??- CAD/HLD: continue rosuvastatin, ASA 81 - CKD stage IIb: Avoid nephrotoxic agents as much as possible, daily BUN/Cr while on vancomycin ?? Quality Measures Diet: Cardiac, diabetic DVT Prophylaxis: Lovenox BID Code Status:Full Code ? Patient was seen and discussed with attending physician ??Prashant ?? Clark Noel MD PGY-2 Medicine-Pediatrics Pager [phone] ?? Histories Allergies Allergies ?(Active and Proposed Allergies Only) lisinopril? (Severity: Unknown severity, Onset: Unknown) ? Past Medical History/Problem List Active Problems??(41) AICD (automatic cardioverter/defibrillator) present BPH - [facility] CAD; s/p CABG 1997, [place] w/stent; heart transplant 04/30 Cellulitis of right leg Chronic kidney disease stage 3 Colon polyp Diabetes mellitus with cataract Diabetes mellitus with PVD; stents; [facility] Dry eyes Dysautonomia Erectile dysfunction Erosive [...] drop Leukopenia Low back pain Microscopic hematuria; [facility] Neck pain Neuropathy due to diabetes mellitus Obese class I Obstructive sleep apnea syndrome Osteopenia - minimal, on DXA 08/01 Peripheral neuropathy Presbyesophagus Pure hypercholesterolemia Tremor - Neurology at [facility] Type 2 DM with renal manifestations; [facility] ? Past Surgical History Esophagogastroduodenoscopy with biopsy & esophageal dilation: 12/06/21 Operation on lumbar spine: 09/21/20 Surgical procedure on cervical spine: 12/10/19 Insertion of popliteal artery stent: 2019 Insertion of popliteal artery stent: 2018 Cataract surgery - R: 09/18/14 Heart transplant: 04/17/13 LVAD - Implantation of left ventricular assist device: 2011 CABG - Coronary artery bypass graft: 1997 Excision of squamous cell carcinoma ? Social History Alcohol Details:??Use: Never. Details:??Use: [...] (Fioricet oral capsule)?1?capsule?By Mouth?Every 6 hours?as needed?Headache Aspirin (aspirin 81 mg oral delayed release tablet)?81?Milligram?1?tablet?By Mouth?Daily?for 30?Days Duloxetine (duloxetine 20 mg oral enteric coated capsule)?1?capsule?20?Milligram?By Mouth?2 times a day Durable Medical Equipment (Freestyle Nona Monitor)?See Instructions?Use with Freestyle 14 day Sensor to monitor Blood Glucose. ??E11.65 Durable Medical Equipment (Pen Hamilton, 31 G x 8 mm BD Ultra Fine III)?See Instructions?for 90?Days?use as directed for Type 2 Diabetes Mellitus for 5 injections per dayE11.9 Durable Medical Equipment (Freestyle Nona Sensor)?See Instructions?e11.65, use with freestyle nona 14 day reader for frequent glucose monitoring, change every 14 days, 28 day supply Gabapentin (gabapentin 300 mg oral capsule)?1?capsule?By Mouth?3 times a day insulin degludec (Tresiba 100 units/mL subcutaneous solution)?100?unit(s)?Subcutaneous Infusion?Daily Insulin Lispro (HumaLOG Cartridge 100 units/mL injectable [...] mg oral tablet)?200?Milligram?2?tablet?By Mouth?Daily atbedtime?as needed?Insomnia ? 72 Hour Antibiotic History Stopped Antibiotics Stop Date/Time Last Administered First Administered Vancomycin??1 Gm, 200 mL, 200 mL/hr, IVPB, Once 04/30/2022 18:57 04/30/2022 18:56 04/30/2022 18:56 ? Results Recent Labs BLOOD COUNT & DIFF WBC 7.5 k/mm3 ()?? 04/30/2022 15:40 RBC 5.27 m/mm3 ()?? 04/30/2022 15:40 Hgb 14.2 Gm/dL ()?? 04/30/2022 15:40 Hct 44.7 % ()?? 04/30/2022 15:40 MCV 84.8 femtoliters ()?? 04/30/2022 15:40 MCH 26.9 pg (Low)?? 04/30/2022 15:40 MCHC 31.8 g/dL (Low)?? 04/30/2022 15:40 Platelet Count 118 k/mm3 (Low)?? 04/30/2022 15:40 RDW-SD 47.3 femtoliters (High)?? 04/30/2022 15:40 MPV 9.6 femtoliters ()?? 04/30/2022 15:40 Nucleated RBC (Automated) 0.0 #/100 WBC'S ()?? 04/30/2022 15:40 Abs. NRBC 0.0 k/mm3 ()?? 04/30/2022 15:40 Abs. Neut 6.3 k/mm3 ()?? 04/30/2022 15:40 Abs. Lymph 0.5 k/mm3 (Low)?? 04/30/2022 15:40 Abs. Shoshone 0.5 k/mm3 ()?? 04/30/2022 15:40 Abs. Eo 0.1 k/mm3 ()?? 04/30/2022 15:40 Abs. Baso 0.0 k/mm3 ()?? 04/30/2022 15:40 Neut % 84.5 % (High)?? 04/30/2022 15:40 Lymph % 6.4 % (Low)?? 04/30/2022 15:40 Shoshone % 6.9 % ()?? 04/30/2022 15:40 Eos % 1.5 % ()?? 04/30/2022 15:40 Baso % 0.3 % ()?? 04/30/2022 15:40 Imm Gran 0.4 % ()?? 04/30/2022 15:40 Abs. Imm Gran 0.0 k/mm3 ()?? 04/30/2022 15:40 ?? CHEM GENERAL Sodium 141 mmol/L ()?? 04/30/2022 15:40 Potassium 3.9 mmol/L ()?? 04/30/2022 15:40 Chloride 99 mmol/L ()?? 04/30/2022 15:40 Bicarbonate Level 30 mmol/L (High)?? 04/30/2022 15:40 Anion Gap 12 ()?? 04/30/2022 15:40 Glucose Level 202 mg/dL (High)?? 04/30/2022 15:40 Glucose, POC 157 mg/dL (High)?? 04/30/2022 19:36 BUN 18 mg/dL ()?? 04/30/2022 15:40 Creatinine-Blood 1.0 mg/dL ()?? 04/30/2022 15:40 Estimated GFR Creatinine 86 ML/MIN/1.73 M2 ()?? 04/30/2022 15:40 Calcium 9.1 mg/dL ()?? 04/30/2022 15:40 Protein, Total 6.3 Gm/dL ()?? 04/30/2022 15:40 Albumin 4.1 Gm/dL ()?? 04/30/2022 15:40 AG Ratio 1.9 ()?? 04/30/2022 15:40 Alkaline Phosphatase 105 units/L ()?? 04/30/2022 15:40 AST (SGOT) 19 units/L ()?? 04/30/2022 15:40 ALT (SGPT) 22 units/L ()?? 04/30/2022 15:40 Bilirubin, Total 0.5 mg/dL ()?? 04/30/2022 15:40 Lactate 1.8 mmol/L ()?? 04/30/2022 19:29 ?? MISC. CHEMISTRY Hold Gel Top SPECIMEN DISCARDED AFTER 1 WEEK ()?? 04/30/2022 19:29 ?? UA/URINALYSIS Appear/Color, Urine YELLOW ()?? 04/30/2022 18:53 Specific Lucas, Urine 1.027 ()?? 04/30/2022 18:53 pH, Urine 6.5 ()?? 04/30/2022 18:53 Albumin, Urine 3+ (Abnormal)?? 04/30/2022 18:53 Glucose, Urine 3+ (Abnormal)?? 04/30/2022 18:53 Ketones, Urine 1+ (Abnormal)?? 04/30/2022 18:53 Bilirubin, Urine NEGATIVE ()?? 04/30/2022 18:53 Hemoglobin, Urine 1+ (Abnormal)?? 04/30/2022 18:53 Nitrite, Urine NEGATIVE ()?? 04/30/2022 18:53 Leukocyte, Urine NEGATIVE ()?? 04/30/2022 18:53 Urobilinogen 2 mg/dL (Abnormal)?? 04/30/2022 18:53 WBC's, Urine 1 /HPF ()?? 04/30/2022 18:53 RBC's, Urine 4 /HPF (High)?? 04/30/2022 18:53 Hold Urine Culture Testing available 48 hours from time of collection. ()?? 04/30/2022 18:53 ?? VIROLOGY COVID-19 by RT-PCR NEGATIVE ()?? 04/30/2022 18:40 ? * Godfrey Cerda MD: PERFORM Event Display: Admission Note Authored Date: [id number] ?? Attending Attestation: I have seen and evaluated this patient.?? I have discussed the case and its management with the resident and agree with the findings and gretel documented in the resident's note.?? I?? will continue to provide care to this patient till 7 AMof the admitting date.?71-year-old male with a past medical history of?? heart failure with reduced ejection fraction secondary to ischemic cardiomyopathy, status post allograft transplantation 2013 on mycophenolic acid, prednisone and tacrolimus, diabetes mellitus type 2 with autonomic neuropathy, peripheral neuropathy ,, peripheral vascular disease being [facility] by [facility].?? Concern of purulent cellulitis of right leg.?? We will continue with vancomycin.?? We will follow-up with cardiology team for the management of immunosuppressive treatment.?? We will touch with his transplant cardiology team for further assistance as needed.?? Will get tacrolimus, mycophenolate level.?? If there could be a sign of decompensation then will consider regular dosing.?? As per the patient his swelling and redness got better.?? We will get a ultrasound of the right legto rule out DVT. Hospital Progress note * Liss WARREN, Laila Altamirano: PERFORM, SIGN, VERIFY Event Display: Progress Note Hospital Authored Date: [id number] Patient: REJI BATEMAN Age: 71 years Sex: Male : 1950 Associated Diagnoses: None Author: Liss WARREN, Laila Altamirano Findings Evaluation (Pt awake and alert ox3. Pt denies c/p or sob. Pt has cellulites of r lower leg. Pt has a blister on r heel. Pt oob with walker. IV abx given. VSS will continue to monitor and report any changes.) * Nenita Song: PERFORM, SIGN, VERIFY Event Display: Progress Note Hospital Authored Date: [id number] Patient: REJI BATEMAN Age: 71 years Sex: Male : 1950 Associated Diagnoses: None Author: Nenita Song Findings Evaluation Alert and oriented x3. Not on tele, verified on day shift no need for tele order. Denies chest pain, shortness of breath, dizziness. LS clear. Bs present. 1 assist? Weak. Receiving iv abx q 8 hrs perorders.Has b/l lower extremity edema. Right heel blister. Has wounds on left leg open to air.. Pending plan for discharge. Patient able to make needs known. Call ortiz in reach, bed in lowest locked position * Rigoberto Narvaez MD: PERFORM Event Display: Progress Note Hospital Authored Date: [id number] Patient: ??REJI BAETMAN ? Age:??71 Years?Sex:??Male?:??1950?? Subjective Patient is seen and examined at bedside. ??Overnight events reviewed. He feels like the swelling??and redness is improving. Denies any chest pain, nausea, vomiting, dysuria. Plan to change to PO ab if improving cellulitis tomorrow as recommended by ID. Review of Systems A full review of systems was completed and is otherwise negative except as mentioned above. Objective Measurements?? Height: 175 cm (05/02/22) Weight: 103.9 kg (05/02/22) Dry Weight: 103.9 kg (05/02/22) Body Mass Index:??33.93 kg/m2??Critical (05/02/22) ? Vital Signs?? Temperature: 97.6 DegF (05/02/22 08:30:00) Temperature Route: Oral (05/02/22 08:30:00) Pulse Rate:??95 bpm??High (05/02/22 08:30:00) Respiratory Rate: 18 br/min (05/02/22 08:33:00) Systolic Blood Pressure:??173 mm Hg??High (05/02/22 08:30:00) Diastolic Blood Pressure:??86 mm Hg??High (05/02/22 08:30:00) Blood pressure sites: Arm, left (05/02/22 08:30:00) Mean Arterial Pressure: 115 mm Hg (05/02/22 08:30:00) Pulse Pressure: 87 mm Hg (05/02/22 08:30:00) Oxygen Saturation: 96 % (05/02/22 08:30:00) Mode of Delivery (Oxygen): Room air (05/02/22 08:30:00) Early Warning Score: 5 (05/02/22 09:44:42) ? Physical Exam General Appearance:??NAD, lying in bed. Cardiovascular: RRR S1 and S2 heard with no M/R/G. No JVD. Respiratory: ??Breath sounds clear to auscultation bilaterally. No wheezing. Good air movement throughout both lungs. GI: Soft. Nontender and nondistended. Normal bowel sounds present throughout abdomen.??Obese abdomen. MS:?Bright erythematous right leg throughout majority of jason and circling to the back of leg. Warm to touch with some pitting but not tender.??NO expressible drainage. ??Darkened right heel. Dry skin overlying both legs with multiple scars from previous wounds. Neuro: ??No slurred speech. ??Patient seen moving their upper and lower extremities independently except at left foot where patient had difficulty dorsiflexing and plantarflexing the foot. _ Inpatient Medications Medications (22) Active SCHEDULED: (14) Aspirin 81 mg EC Tablet (aspirin 81 mg oral delayed release tablet) ??81 mg, By Mouth, Daily CeFAZolin 2 Gm Inj (ceFAZolin Inj) ??2 Gm, IV Push, Every 8 hours Duloxetine 20 mg Capsule (DULoxetine Capsule) ??20 mg, By Mouth, 2 times a day Enoxaparin 40 mg Inj (Enoxaparin Inj) ??40 mg 0.4 mL, Subcutaneous Injection, 2 times a day Gabapentin 300 mg Capsule (gabapentin 300 mg oral capsule) ??300 mg, By Mouth, 3 times a day Insulin Glargine 100 units/mL Inj (Insulin Glargine Inj) ??40 units 0.4 mL, Subcutaneous Injection,2 times a day Insulin Lispro 100 units/mL Inj (3mL) (Insulin [...] oral tablet) ??20 mg, By Mouth, Daily at bedtime Tacrolimus 0.5 mg Capsule (tacrolimus 0.5 mg oral capsule) ??0.5 mg, By Mouth, 2 times a day Tacrolimus 1 mg Capsule (tacrolimus 1 mg oral capsule) ??2 mg, By Mouth, 2 times a day CONTINUOUS: (0) PRN: (8) Acetaminophen 325 mg [...] Gm, IV Push, Every 8 hours ?1 05/02/2022 08:33 05/02/2022 08:33 ? Stopped Antibiotics Stop Date/Time Last Administered First Administered Vancomycin??1 Gm, 200 mL, 200 mL/hr, IVPB, Once 04/30/2022 18:57 04/30/2022 18:56 04/30/2022 18:56 ? Results Recent Labs BLOOD COUNT & DIFF WBC 7.0 k/mm3 ()?? 05/01/2022 05:35 RBC 5.22 m/mm3 ()?? 05/01/2022 05:35 Hgb 14.3 Gm/dL ()?? 05/01/2022 05:35 Hct 45.1 % ()?? 05/01/2022 05:35 MCV 86.4 femtoliters ()?? 05/01/2022 05:35 MCH 27.4 pg ()?? 05/01/2022 05:35 MCHC 31.7 g/dL (Low)?? 05/01/2022 05:35 Platelet Count 128 k/mm3 (Low)?? 05/01/2022 05:35 RDW-SD 48.4 femtoliters (High)?? 05/01/2022 05:35 MPV 9.3 femtoliters (Low)?? 05/01/2022 05:35 Nucleated RBC (Automated) 0.0 #/100 WBC'S ()?? 05/01/2022 05:35 Abs. NRBC 0.0 k/mm3 ()?? 05/01/2022 05:35 ?? CHEM GENERAL Sodium 141 mmol/L ()?? 05/01/2022 05:35 Potassium 3.9 mmol/L ()?? 05/01/2022 05:35 Chloride 100 mmol/L ()?? 05/01/2022 05:35 Bicarbonate Level 36 mmol/L (High)?? 05/01/2022 05:35 Anion Gap 5 ()?? 05/01/2022 05:35 Glucose Level 121 mg/dL (High)?? 05/01/2022 05:35 Glucose, POC 88 mg/dL ()?? 05/02/2022 09:43 BUN 19 mg/dL ()?? 05/01/2022 05:35 Creatinine-Blood 1.0 mg/dL ()?? 05/01/2022 05:35 Estimated GFR Creatinine 82 ML/MIN/1.73 M2 ()?? 05/01/2022 05:35 Calcium 9.1 mg/dL ()?? 05/01/2022 05:35 ?? HEME OTHER Hold Blue Top SPECIMEN DISCARDED AFTER 4 HOURS. ()?? 05/01/2022 05:35 ?? MISC. CHEMISTRY Hold Green Top SPECIMEN DISCARDED AFTER 1 WEEK ()?? 05/01/2022 05:35 ?? TOXICOLOGY/TDM Tacrolimus Level 3.7 ng/mL (Low)?? 05/01/2022 05:35 Mycophenolate Level 0.5 ??g/mL (Low)?? 05/01/2022 05:35 ? Assessment/Plan 71 year old gentleman with history of type 2 DM, hyperparathyroidism, CAD s/p CABG, heart transplant in 2013, chronic kidney disease stage 3, neuropathy, ARNULFO, hypercholesterolemia, presented to the emergency room for redness and swelling of his leg with wound to the right anterior jason and right heel consistent with cellulitis. Patient admitted for monitoring of infection and IV antibiotics givenimmunosuppression. ?? Right lower extremity non-purulent cellulitis - Symptoms started about 4-5 days prior to presentation, after a fall. Patient also has multiple old scabs that might be nidus of infection - Warm to touch without drainage or significant tenderness - Blackened heel and pain with walking due make me concerned for potential osteomyelitis given immunosuppression and type 2 diabetes - No open wounds to attempt probing to bone. - S/p 1 dose of IV vancomycin - No history of blood clots or immobility - -US- Cellulitis without evidence of an abscess. - ID eval done. Plan: - cefazolin 2g IV every 8 hours -->If improving, tomorrow??can transition to cephalexin 500mg POQID for total 14 days - Follow up blood cultures ? Hypertension Tachycardia s/p heart transplant 2013 -??Elevated Blood pressures and tachycardia likely in the setting of acute infection. Plan: ??- Continue to monitor while on therapy for infection - Continue home mycophenolate, tacrolimus and prednisone - - Dr Sanabria F/u done-??recommended to?continue same dose immunosuppressive therapies.?? -Added amlodipine 5mg PO daily ?? Type 2 diabetes mellitus Plan: - POC qACHS + SSI - Converted home degludec to insulin glargine - Hypoglycemia measures ordered ?? Thrombocytopenia - May be in the setting of infection although usually see a reactive thrombocytosis - No signs of acute bruising ?? Plan: ??- Continue to monitor ?? Chronic stable conditions: ??- s/p heart transplant: Continue home tacrolimus, prednisone, mycophenolate, touch base with cardiac transplant team at [facility] if acutely worsening ??- CAD/HLD: continue rosuvastatin, ASA 81 - CKD stage IIb: Avoid nephrotoxic agents as much as possible, daily BUN/Cr while on vancomycin ?? Quality Measures Diet: Cardiac, diabetic DVT Prophylaxis: Lovenox BID Code Status:Full Code? DC tomorrow if blood culture remains negative and improving cellulitis on PO antibiotics.?? Note * Laila Leija RN: PERFORM Event Display: Discharge/Transfer Note Hospital Authored Date: [id number] Nursing Discharge Note Entered On: 05/03/2022 11:55 EST Performed On: 05/03/2022 11:53 EST by Laila Leija RN Nursing Discharge Note 2 Discharge Time : 05/03/2022 11:30 EST Discharge Level of Care at Discharge : Home/Chcf/Foster Care Patient Left Unit Via : Wheelchair Patient Accompanied Off Unit with : Responsible adult DC Instructions Provided & Signed by Pt : Yes Patient Understands D/C Instructions : Yes Patient Instructions Discharge Signed : Yes Discharge Comments : IV removed. Pt awake and alert ox3. Pt denies c/p or sob. Pt d/c home with instructions explined to pt and . Scripts available at his pharmacy. Did Pt have Specialty Bed or Wound Vac : No Liss WARREN, Laila Altamirano - 05/03/2022 11:53 EST * Solange CALLOWAY, Rigoberto: PERFORM Event Display: Discharge/Transfer Note Hospital Authored Date: [id number] Patient: ??BATEMAN, REJI ? Age:??71 Years?Sex:??Male?:??1950?? Patient Information Discharge Location: Primary Care Physician: Dung Chen MD Admit Date/Time: 04/30/22 18:55 Discharge Disposition Discharge Disposition: Home Discharge Diagnosis Cellulitis of right leg (L03.115) CAD; s/p CABG 1997, [place] 2006 w/stent; heart transplant 04/30 ?? _ Discharge Medications Acetaminophen/Butalbital/Caffeine (Fioricet oral capsule)?1?capsule?By Mouth?Every 6 hours?as needed?Headache Amlodipine (amLODIPine 5 mg oral tablet)?5?Milligram?1?tablet?By Mouth?Daily Aspirin (aspirin 81 mg oral delayed release tablet)?81?Milligram?1?tablet?By Mouth?Daily?for 30?Days Cephalexin (cephalexin monohydrate 500 mg oral capsule)?1?capsule?500?Milligram?By Mouth?4 times a day?for 12?Days Duloxetine (duloxetine 20 mg oral enteric coated capsule)?1?capsule?20?Milligram?By Mouth?2 times a day Durable Medical Equipment (Freestyle Nona Monitor)?See Instructions?Use with Freestyle 14 day Sensor to monitor Blood Glucose. ??E11.65 Durable Medical Equipment (Pen Hamilton, 31 G x 8 mm BD Ultra Fine III)?See Instructions?for 90?Days?use as directed for Type 2 Diabetes Mellitus for 5 injections per dayE11.9 Durable Medical Equipment (Freestyle Nona Sensor)?See Instructions?e11.65, use with freestyle nona 14 day reader for frequent glucose monitoring, change every 14 days, 28 day supply Gabapentin (gabapentin 300 mg oral capsule)?1?capsule?By Mouth?3 times a day insulin degludec (Tresiba 100 units/mL subcutaneous solution)?100?unit(s)?Subcutaneous Infusion?Daily Insulin Lispro (HumaLOG Cartridge 100 units/mL injectable [...] mg oral tablet)?200?Milligram?2?tablet?By Mouth?Daily atbedtime?as needed?Insomnia ? Allergies Allergies ?(Active and Proposed Allergies Only) lisinopril? (Severity: Unknown severity, Onset: Unknown) ? Future Appointments 2022 10:30 AM EST ?? With: Gustavo CALLOWAY Dung Where: [facility] [address] [place] [address]- Monday 8:25 AM EST ?? With: Preet CALLOWAY, [facility] Where: [facility] [address] [place] [address]- Hospital Course 71 year old gentleman with history of type 2 DM, hyperparathyroidism, CAD s/p CABG, heart transplant in 2013, chronic kidney disease stage 3, neuropathy, ARNULFO, hypercholesterolemia, presented to the emergency room for redness and swelling of his leg with wound to the right anterior jason and right heel consistent with cellulitis. Patient admitted for monitoring of infection and IV antibiotics givenimmunosuppression. US done and shows??Cellulitis without evidence of an abscess. ID eval done recommend a 14-day course due to his immunocompromised status. His blood cultures remains negative. The redness seem to be improving. He is advised to f/u closely with PCP on discharge. All questions wee answered. ?? Assesment and plan while in the hospital: ?? Right lower extremity non-purulent cellulitis - Symptoms started about 4-5 days prior to presentation, after a fall. Patient also has multiple old scabs that might be nidus of infection - No open wounds to attempt probing to bone. - S/p 1 dose of IV vancomycin - No history of blood clots or immobility - US- Cellulitis without evidence of an abscess. - ID eval done. Plan: - cefazolin 2g IV every 8 hours -->as improving, transition to cephalexin 500mg PO QID for total14 days - Follow up blood cultures so far negative ? Hypertension s/p heart transplant 2013 -??Elevated Blood pressures and tachycardia likely in the setting of acute infection. Plan: ??- Continue to monitor while on therapy for infection - Continue home mycophenolate, tacrolimus and prednisone - - Dr Sanabria F/u done-??recommended to?continue same dose immunosuppressive therapies.?? -Added amlodipine 5mg PO daily -F/u with PCP ?? Type 2 diabetes mellitus Plan: -resume home med on discharge. ?? Thrombocytopenia - May be in the setting of infection although usually see a reactive thrombocytosis - No signs of acute bruising ?? Plan: ??- Continue to monitor ?? Chronic stable conditions: ??- s/p heart transplant: Continue home tacrolimus, prednisone, mycophenolate, touch base with cardiac transplant team at [facility] if acutely worsening ??- CAD/HLD: continue rosuvastatin, ASA 81 - CKD stage IIb: Avoid nephrotoxic agents as much as possible, daily BUN/Cr while on vancomycin Objective Vital Signs?? Temperature: 97.8 DegF (05/03/22 08:12:00) Temperature Route: Oral (05/03/22 08:12:00) Pulse Rate:??92 bpm??High (05/03/22 08:12:00) Respiratory Rate: 18 br/min (05/03/22 09:10:00) Systolic Blood Pressure:??150 mm Hg??High (05/03/22 09:10:00) Diastolic Blood Pressure: 77 mm Hg (05/03/22 09:10:00) Blood pressure sites: Arm, right (05/03/22 08:12:00) Mean Arterial Pressure: 101 mm Hg (05/03/22 08:12:00) Pulse Pressure: 73 mm Hg (05/03/22 08:12:00) Oxygen Saturation: 97 % (05/03/22 08:12:00) Mode of Delivery (Oxygen): Room air (05/03/22 08:12:00) Early Warning Score: 2 (05/03/22 09:28:25) ? . Physical Exam General Appearance:??NAD, lying in bed. Cardiovascular: RRR S1 and S2 heard with no M/R/G. No JVD. Respiratory: ??Breath sounds clear to auscultation bilaterally. No wheezing. Good air movement throughout both lungs. GI: Soft. Nontender and nondistended. Normal bowel sounds present throughout abdomen.??Obese abdomen. MS:?Improving erythematous right leg throughout majority of jason and circling to the back of leg.??Blister in right heel. Dry skin overlying both legs with multiple scars from previous wounds. Neuro: ??No slurred speech. ??Patient seen moving their upper and lower extremities independently except at left foot where patient had difficulty dorsiflexing and plantarflexing the foot. Pending Results Add On Lab Order ordered on 05/01/2022 Add On Lab Order ordered on 05/01/2022 BUN ordered on 05/02/2022 Blood Culture ordered on 04/30/2022 Blood Culture #2 ordered on 04/30/2022 Calcium Level ordered on 05/02/2022 Creatinine ordered on 05/02/2022 Electrolytes ordered on 05/02/2022 Glucose Level ordered on 05/02/2022 Magnesium Level ordered on 05/02/2022 Phosphorus Level ordered on 05/02/2022 Patient Education Titles Discharge Instructions for Cellulitis?? Follow-Up Appointments Added Follow Up ?Time Frame ?Comments Dung Chen MD?1 week: call to discuss follow up visit Post Discharge Care Diet: Cardiac diet Activity: Ambulate with assistance ??3 times a day ??unless otherwise specified Code Status: ?? Full Resuscitation Prognosis: Fair Discharge ?05/03/22 9:58:00 EST Discharge Prescriptions ?ePrescribed, ??05/03/22 9:58:00 EST Home Health Face to Face ^HomeHealthFTF Results Discharge Labs BLOOD COUNT & DIFF WBC 7.0 k/mm3 ()?? 05/01/2022 05:35 RBC 5.22 m/mm3 ()?? 05/01/2022 05:35 Hgb 14.3 Gm/dL ()?? 05/01/2022 05:35 Hct 45.1 % ()?? 05/01/2022 05:35 MCV 86.4 femtoliters ()?? 05/01/2022 05:35 MCH 27.4 pg ()?? 05/01/2022 05:35 MCHC 31.7 g/dL (Low)?? 05/01/2022 05:35 Platelet Count 128 k/mm3 (Low)?? 05/01/2022 05:35 RDW-SD 48.4 femtoliters (High)?? 05/01/2022 05:35 MPV 9.3 femtoliters (Low)?? 05/01/2022 05:35 Nucleated RBC (Automated) 0.0 #/100 WBC'S ()?? 05/01/2022 05:35 Abs. NRBC 0.0 k/mm3 ()?? 05/01/2022 05:35 Abs. Neut 6.3 k/mm3 ()?? 04/30/2022 15:40 Abs. Lymph 0.5 k/mm3 (Low)?? 04/30/2022 15:40 Abs. Shoshone 0.5 k/mm3 ()?? 04/30/2022 15:40 Abs. Eo 0.1 k/mm3 ()?? 04/30/2022 15:40 Abs. Baso 0.0 k/mm3 ()?? 04/30/2022 15:40 Neut % 84.5 % (High)?? 04/30/2022 15:40 Lymph % 6.4 % (Low)?? 04/30/2022 15:40 Shoshone % 6.9 % ()?? 04/30/2022 15:40 Eos % 1.5 % ()?? 04/30/2022 15:40 Baso % 0.3 % ()?? 04/30/2022 15:40 Imm Gran 0.4 % ()?? 04/30/2022 15:40 Abs. Imm Gran 0.0 k/mm3 ()?? 04/30/2022 15:40 ?? CHEM GENERAL Sodium 141 mmol/L ()?? 05/01/2022 05:35 Potassium 3.9 mmol/L ()?? 05/01/2022 05:35 Chloride 100 mmol/L ()?? 05/01/2022 05:35 Bicarbonate Level 36 mmol/L (High)?? 05/01/2022 05:35 Anion Gap 5 ()?? 05/01/2022 05:35 Glucose Level 121 mg/dL (High)?? 05/01/2022 05:35 Glucose, POC 63 mg/dL (Low)?? 05/03/2022 08:13 BUN 19 mg/dL ()?? 05/01/2022 05:35 Creatinine-Blood 1.0 mg/dL ()?? 05/01/2022 05:35 Estimated GFR Creatinine 82 ML/MIN/1.73 M2 ()?? 05/01/2022 05:35 Calcium 9.1 mg/dL ()?? 05/01/2022 05:35 Protein, Total 6.3 Gm/dL ()?? 04/30/2022 15:40 Albumin 4.1 Gm/dL ()?? 04/30/2022 15:40 AG Ratio 1.9 ()?? 04/30/2022 15:40 Alkaline Phosphatase 105 units/L ()?? 04/30/2022 15:40 AST (SGOT) 19 units/L ()?? 04/30/2022 15:40 ALT (SGPT) 22 units/L ()?? 04/30/2022 15:40 Bilirubin, Total 0.5 mg/dL ()?? 04/30/2022 15:40 Lactate 1.8 mmol/L ()?? 04/30/2022 19:29 C-Reactive Protein 6.7 mg/dL (High)?? 04/30/2022 15:40 ?? HEME OTHER Sed Rate 24 mm/hr (High)?? 04/30/2022 15:40 Hold Blue Top SPECIMEN DISCARDED AFTER 4 HOURS. ()?? 05/01/2022 05:35 ?? MISC. CHEMISTRY Hold Green Top SPECIMEN DISCARDED AFTER 1 WEEK ()?? 05/01/2022 05:35 Hold Gel Top SPECIMEN DISCARDED AFTER 1 WEEK ()?? 04/30/2022 19:29 ?? TOXICOLOGY/TDM Tacrolimus Level 3.7 ng/mL (Low)?? 05/01/2022 05:35 Mycophenolate Level 0.5 ??g/mL (Low)?? 05/01/2022 05:35 ?? UA/URINALYSIS Appear/Color, Urine YELLOW ()?? 04/30/2022 18:53 Specific Lucas, Urine 1.027 ()?? 04/30/2022 18:53 pH, Urine 6.5 ()?? 04/30/2022 18:53 Albumin, Urine 3+ (Abnormal)?? 04/30/2022 18:53 Glucose, Urine 3+ (Abnormal)?? 04/30/2022 18:53 Ketones, Urine 1+ (Abnormal)?? 04/30/2022 18:53 Bilirubin, Urine NEGATIVE ()?? 04/30/2022 18:53 Hemoglobin, Urine 1+ (Abnormal)?? 04/30/2022 18:53 Nitrite, Urine NEGATIVE ()?? 04/30/2022 18:53 Leukocyte, Urine NEGATIVE ()?? 04/30/2022 18:53 Urobilinogen 2 mg/dL (Abnormal)?? 04/30/2022 18:53 WBC's, Urine 1 /HPF ()?? 04/30/2022 18:53 RBC's, Urine 4 /HPF (High)?? 04/30/2022 18:53 Hold Urine Culture Testing available 48 hours from time of collection. ()?? 04/30/2022 18:53 ?? VIROLOGY COVID-19 by RT-PCR NEGATIVE ()?? 04/30/2022 18:40 COVID-19 PCR Specimen Source NASAL ()?? 05/02/2022 05:01 COVID-19 PCR Result NEGATIVE ()?? 05/02/2022 05:01 ? Imaging(s) ?Chest Portable ?? 05/02/2022 07:11??by Jae CALLOWAY, Vilma I ?No acute abnormality. ?Ankle 2 Views Right ?? 05/01/2022 04:32??by Lior Ogden MD ?No evidence of acute osseous abnormality. ?Shoulder Min 2 Views Left ?? 05/02/2022 07:11??by Vilma Rowe MD, I ?Degenerative changes, no acute fracture or dislocation involving bones or joints of theleft shoulder ?Tibia/Fibula 2 Views Right ?? 05/01/2022 04:32??by Lior Ogden MD ?No evidence of acute osseous abnormality. ?US Doppler Ext Lower Venous Right ?? 05/01/2022 04:12??by Lior Gottlieb MD ?No evidence of deep venous thrombosis. ?US Extremity Non-Vascular Right Limited ?? 05/01/2022 17:05??by Annamaria CALLOWAY, Devrikofi ? Cellulitis without evidence of an abscess. ? 32??minutes spent on discharge * Liss WARREN, Laila Altamirano: PERFORM Event Display: Patient Education/Instruction Authored Date: [id number] Inpatient Adult Discharge Instructions [address] [id number] Name: REJI BATEMAN : 1950 Visit: 04/30/2022 18:55:00 Current Date: 05/03/2022 10:40 Account: [id number] Inpatient Adult Discharge Instructions We would like [...] and their families. Surveys are administered by [employer] ?? If further treatment with your primary care physician or another doctor is recommended, it is important for you to keep the appointment. Call your primary care physician or return to the Emergency Department immediately if your condition worsens, fails to improve, or new symptoms develop. If you need to find a doctor, you can call [facility] [employer] for a referral at [phone] or toll free at [phone] or log in to [email or web address].. ?? You can view and manage your care through the patient portal or by using a health care laurent of your choosing. [employer] is a website that allows you to securely view your medical information including your hospital discharge summary, office visit summaries, medications and follow-up visits. You can also request appointments, renew medications, and request access to your medical information using a health care laurent of your choosing, or just ask a question. You can enroll at [email or web address] or register during your next office visit. You have been discharged from [facility], Patient Care Unit: M5. If you have any questions regarding these instructions after you leave, please call us and we will be happy to assist you. [facility] Your Care Team Attending Physician Solange CALLOWAY, Rigoberto Consulting Providers Sunday CALLOWAY, Jarrell Chapin; Rosalind Sanabria DO, MD, Sanchez Rodriguez Discharging Providers Solange CALLOWAY, Rigoberto Reason for Admission General medical Your Diagnosis Cellulitis of right leg Tests Performed Below is a partial list of the tests performed during your hospitalization. You may have had other tests and procedures not included in this list. Please discuss all test results with your provider. Basic Metabolic Panel C-REACTIVE PROTEIN CBC CBC w/ Differential Comprehensive Metabolic Panel COVID-19 (2019 Novel Coronavirus) PCR COVID-19 (Novel Coronavirus), Rapid PCR GLUCOSE POC HOLD BLUE TUBE HOLD GEL TUBE HOLD GREEN TUBE Lactate Level LACTIC ACID MYCOPHENOLATE SEDIMENTATION RATE,AUTOMATED TACROLIMUS Urinalysis w/hold for Urine Culture CXR Portable Doppler Ext Lower Venous Right (US) Shoulder Min 2 Views Left US Extremity Non-Vascular Right Limited XR Ankle 2 Views Right XR Tibia/Fibula 2 Views Right Primary Care Provider Dung Chen MD Advance Directive Health Care Proxy on File Yes - Health Care Proxy Yes - [facility] No qualifying data available. Discharge Vitals Temperature: 97.8 DegF Height: 175 cm Pulse Rate:??92 bpm??High Weight: 101.1 kg Respiratory Rate: 18 br/min Body Mass Index:??33.01 kg/m2??Critical Systolic Blood Pressure:??150 mm Hg??High Body surface area: 2.22 Diastolic Blood Pressure: 77 mm Hg ?? Oxygen Saturation: 97 % ?? Studies Pending All tests and labs ordered during this hospital stay have been completed unless listed below. Please discuss all pending results with your provider listed above in these instructions. ?? Add On Lab Order BUN Blood Culture Blood Culture #2 Calcium Level Creatinine Electrolytes Glucose Level Magnesium Level (Mg Level) Phosphorus Level What to do next Instructions From Your Doctor Discharge Orders Diet:??Cardiac diet Activity:??Ambulate with assistance 3 times a day unless otherwise specified Code Status:?? Full Resuscitation Prognosis:??Fair Scheduled Follow-Up Appointments 2022 10:30 AM EST ?? With: Dung Chen MD Where: [facility] [address] [place] [address]- Monday 8:25 AM EST ?? With: Preet CALLOWAY, Iss Where: [facility] [place] [address]- You Need to Schedule the Following Appointments Follow Up with??Dung Chen MD When??Within 1 week: call to discuss follow up visit Where: ?? Discharge Medications REJI BATEMAN :1950 Visit Date:04/30/2022 Medications: Please continue your medications until treatment is completed or stopped by your provider. Medications not listed below should be discontinued. Discuss any questions related to medications with your provider. What How Much When Instructions Next Dose New Amlodipine (amLODIPine 5 mg oral tablet) 1 tab(s) Oral Daily Pickup at [facility]/pharmacy #[id number] Tomorrow New Cephalexin (cephalexin monohydrate 500 mg oral capsule) 1 capsule Oral 4 times a day Duration: 12 Days Pickup at [facility]/pharmacy #[id number] Tonight Unchanged Acetaminophen/ Butalbital/ Caffeine (Fioricet oral capsule) 1 capsule Oral Every 6 hours as needed for Headache as needed Unchanged Aspirin (aspirin 81 mg oral delayed release tablet) 1 tab(s) Oral Daily Duration: 30 Days Tomorrow Unchanged Duloxetine (duloxetine 20 mg oral enteric coated capsule) 1 capsule Oral Twice a day Tonight Unchanged Durable Medical Equipment (Freestyle Nona Monitor) See instructions Use with Freestyle 14 day Sensor to monitor Blood Glucose. ??E11.65 ?? Unchanged Durable Medical Equipment (Freestyle Nona Sensor) See instructions e11.65, use with freestyle nona 14 day reader for frequent glucose monitoring, change every 14 days, 28 day supply ?? Unchanged Durable Medical Equipment (Pen Hamilton, 31 G x 8 mm BD Ultra Fine III) See instructions Duration: 90 Days use as directed for Type 2 Diabetes Mellitus for 5 injections per day ?? E11.9 ?? Unchanged Durable Medical Equipment (Pen Hamilton, 32 G x 4 mm BD Ultra Fine III) Unchanged Fludrocortisone (fludrocortisone 0.1 mg oral tablet) resume Unchanged Fluticasone Nasal (fluticasone 50 mcg/ inh nasal spray) resume Unchanged Gabapentin (gabapentin 300 mg oral capsule) 1 capsule Oral 3 times a day resume Unchanged Insulin Lispro (HumaLOG Cartridge 100 units/ mL injectable solution) See instructions Insert cartridge into Inpen device, inject 16 units subq 3x a day with meals, Max daily dose 48 units, E11.65 ?? resume Unchanged Insulin Lispro (Humalog Kwik Pen 100 units/ mL subcutaneous injection) See instructions e11.65, use as back up to failed inpen device. following sliding scale, up to 16 units subcutaneously three times a day with meals. max daily dose 48 units ?? resume Unchanged Mycophenolate Sodium (mycophenolic acid 360 mg oral delayed release tablet) 2 tab(s) Oral Twice a day tonight Unchanged Pantoprazole (pantoprazole 40 mg oral delayed release tablet) 1 tab(s) Oral Twice a day tonight Unchanged PredniSONE (predniSONE 5 mg oral tablet) 1 tab(s) Oral Daily tomorrow Unchanged Rosuvastatin (rosuvastatin 20 mg oral tablet) 1 tab(s) Oral Daily resume Unchanged Tacrolimus (tacrolimus 1 mg oral capsule) 2.5 capsule Oral Twice a day 3 in the AM & 3 in the Evening ?? tonight Unchanged Trazodone (traZODone 100 mg oral tablet) 2 tab(s) Oral Daily at Bedtime as needed for Insomnia as needed Pharmacy Information [facility]/pharmacy #[id number]: [address] [facility], [place] [id number] [phone] Test Results Below is a partial list of the most recent Laboratory test results done prior to this discharge. You may have had other tests and procedures not included in this list. Please discuss all test resultswith your provider. Basic Metabolic Panel (05/01/2022) ???Sodium - 141 mmol/L???Potassium - 3.9 mmol/L???Chloride - 100 mmol/L???Bicarbonate Level - 36 mmol/L???Anion Gap - 5???Glucose Level - 121 mg/dL???BUN - 19 mg/dL???Creatinine-Blood - 1.0 mg/dL???Estimated GFR Creatinine - 82 ML/MIN/1.73 M2???Calcium - 9.1 mg/dL C-REACTIVE PROTEIN (04/30/2022) ???C-Reactive Protein - 6.7 mg/dL CBC (05/01/2022) ???WBC - 7.0 k/mm3???RBC - 5.22 m/mm3???Hgb - 14.3 Gm/dL???Hct - 45.1 %???MCV - 86.4 femtoliters???MCH - 27.4 pg???MCHC - 31.7 g/dL???Platelet Count - 128 k/mm3???RDW-SD - 48.4 femtoliters???MPV - 9.3 femtoliters???Nucleated RBC (Automated) - 0.0 #/100 WBC'S???Abs. NRBC - 0.0 k/mm3 CBC w/ Differential (04/30/2022) ???WBC - 7.5 k/mm3???RBC - 5.27 m/mm3???Hgb - 14.2 Gm/dL???Hct - 44.7 %???MCV - 84.8 femtoliters???MCH - 26.9 pg???MCHC - 31.8 g/dL???Platelet Count - 118 k/mm3???RDW-SD - 47.3 femtoliters???MPV - 9.6 femtoliters???Nucleated RBC (Automated) - 0.0 #/100 WBC'S???Abs. NRBC - 0.0 k/mm3???Abs. Neut - 6.3 k/mm3???Abs. Lymph - 0.5 k/mm3???Abs. Shoshone - 0.5 k/mm3???Abs. Eo - 0.1 k/mm3???Abs. Baso - 0.0 k/mm3???Neut % - 84.5 %???Lymph % - 6.4 %???Shoshone % - 6.9 %???Eos % - 1.5 %???Baso % - 0.3 %???Imm Gran - 0.4 %???Abs. Imm Gran - 0.0 k/mm3 Comprehensive Metabolic Panel (04/30/2022) ???Sodium - 141 mmol/L???Potassium - 3.9 mmol/L???Chloride - 99 mmol/L???Bicarbonate Level - 30 mmol/L???Anion Gap - 12???Glucose Level - 202 mg/dL???BUN - 18 mg/dL???Creatinine-Blood - 1.0 mg/dL???Estimated GFR Creatinine - 86 ML/MIN/1.73 M2???Calcium - 9.1 mg/dL???Protein, Total - 6.3 Gm/dL???Albumin - 4.1 Gm/dL???AG Ratio - 1.9???Alkaline Phosphatase - 105 units/L???AST (SGOT) - 19 units/L???ALT (SGPT) - 22 units/L???Bilirubin, Total - 0.5 mg/dL COVID-19 (2019 Novel Coronavirus) PCR (05/02/2022) ???COVID-19 PCR Specimen Source - NASAL???COVID-19 PCR Result - NEGATIVE COVID-19 (Novel Coronavirus), Rapid PCR (04/30/2022) ???COVID-19 by RT-PCR - NEGATIVE GLUCOSE POC (05/03/2022) ???Glucose, POC - 63 mg/dL HOLD BLUE TUBE (05/01/2022) ???Hold Blue Top - SPECIMEN DISCARDED AFTER 4 HOURS. HOLD GEL TUBE (04/30/2022) ???Hold Gel Top - SPECIMEN DISCARDED AFTER 1 WEEK HOLD GREEN TUBE (05/01/2022) ???Hold Green Top - SPECIMEN DISCARDED AFTER 1 WEEK Lactate Level (04/30/2022) ???Lactate - 1.8 mmol/L LACTIC ACID (04/30/2022) ???Lactate - 2.1 mmol/L MYCOPHENOLATE (05/01/2022) ???Mycophenolate Level - 0.5 ??g/mL SEDIMENTATION RATE,AUTOMATED (04/30/2022) ???Sed Rate - 24 mm/hr TACROLIMUS (05/01/2022) ???Tacrolimus Level - 3.7 ng/mL Urinalysis w/hold for Urine Culture (04/30/2022) ???Appear/Color, Urine - YELLOW???Specific Lucas, Urine - 1.027???pH, Urine - 6.5???Albumin, Urine - 3+???Glucose, Urine - 3+???Ketones, Urine - 1+???Bilirubin, Urine - NEGATIVE???Hemoglobin, Urine- 1+???Nitrite, Urine - NEGATIVE???Leukocyte, Urine - NEGATIVE???Urobilinogen - 2 mg/dL???WBC's, Urine - 1 /HPF???RBC's, Urine - 4 /HPF???Hold Urine Culture - Testing available 48 hours from time of collection. Allergies (NKA means No Known Allergies) lisinopril Problems Active Problems??(45) AICD (automatic cardioverter/defibrillator) present?? BPH - [facility]?? CAD; s/p CABG 1997, [place] 2006 w/stent; heart transplant 04/30?? Cellulitis of right leg?? CHD?? Chronic kidney disease stage 3?? Colon [...] drop?? Leukopenia?? Low back pain?? Microscopic hematuria; [facility]?? Neck pain?? Neuropathy due to diabetes mellitus?? Obese class I?? Obstructive sleep apnea syndrome?? Osteopenia - minimal, on DXA 08/01?? Peripheral neuropathy?? Presbyesophagus?? Pure hypercholesterolemia?? Tremor - Neurology at [facility]?? Type 2 DM with renal manifestations; [facility]?? Education Materials Below is the list of Educational Leaflet Providered with your Discharge Instructions. Discharge Instructions for Cellulitis?? Valuables and Belongings I fully understand and agree that [facility] accepts no responsibility for all my personal [...] to send valuables and belongings home. ?? No Valuables/Belongings: No valuables/belongings present Review of Valuable and Belonging List: With patient Date for Pt to Sign Valuables/Belongings: 05/02/22 16:01:00 ?? Other Discharge Information ?? Wound Assessment?? Wound Assessment?? Wound Location I: right heel blood blioster Wound Type I: Other: venous, diabetic ulcer, scabbing, MARLEE Wound I, Present on Admission: Yes ? Pulmonary Rehab Status?? Pulmonary Rehab Discharge [...] are strongly encouraged to quit. Please call [facility] at [phone] or 1-007-469Citizen.VC ([phone]) or log in to [email or web address] for referrals to smoking cessation programs. ?? The National Suicide Prevention Hotline is available 07/11 if you or someone you know needs to find a reason to keep living. By calling 2-387-831-Geogoer (8818) you'll be connected to a skilled, trained counselor at a crisis center in your area. INPATIENT DISCHARGE INSTRUCTIONS SIGNATURE PAGE REJI BATEMAN Location:[facility] Registration Date and Time:04/30/2022 18:55 EST Primary Care Physician: Gustavo CALLOWAY, Dung, I REJI BATEMAN, have received the above patient education materials/instructions and have verbalized understanding. If ambulance or transport services are being used I further acknowledge being givena choice of service. ?? If you need to contact me, please call me at this number: . Patient/Fire Chief Deputy Name: Patient/Fire Chief Deputy Signature: Relationship to Patient: Witness Name/Signature: Date: * Rigoberto Narvaez MD: PERFORM Event Display: Patient Education Leaflets Authored Date: [id number] Discharge Instructions for Cellulitis ?? [id number] Discharge Instructions for Cellulitis You have been diagnosed with cellulitis. This is an infection in the deepest layers of the skin. The infection may even spread to the muscle in some cases. Cellulitis is caused by bacteria. The bacteria can??enter the body through broken skin. This can happen with a cut, scratch, animal bite, or aninsect bite that has been scratched. You may have been treated in the hospital with antibiotics andfluids. You will likely be given a prescription for antibiotics to take at home. This sheet will help you take care of yourself at home. Home care When you are home: ??? Take the prescribed antibiotic medicine you are given as directed until it is gone. Take it even if you feel better. It treats the infection and stops it from returning. Not taking all the medicine can make future infections hard to treat. ??? Keep the infected area clean. Follow all wound careinstructions from your healthcare provider. ??? When possible, raise the infected area above the level of your heart. This helps keep swelling down. ??? Domenico the boundary of the infected area so you can tell if it is growing. ??? Talk with your healthcare provider if you are in pain. Ask what kind of utyz-rpl-jiehsow medicine you can take for pain. ??? Apply clean bandages as advised. Dispose of dirty bandages in a plastic bag that is tied at the top. ??? Wash your hands often to prevent spreading the infection. Always wash your hands before and after cleaning the area. If anyone helps you with your care, have them do the same. ??? Take your temperature once a day for a week. In the future, wash your hands before and after you touch cuts, scratches, or bandages. This will help prevent infection.? When to call your healthcare provider Call your healthcare provider right away if you have any of the following: ??? The infection does not get better within 1 to 2 days after treatment starts ??? Trouble or pain when moving the joints above or below the infected area ??? Discharge or pus draining from the area ??? Fever??of??100.4??F (38??C) or higher, or as directed by your healthcare provider ??? Pain that gets worse in or around the infected? Redness that gets worse in or around the infected area,??particularly if the areaof redness expands to a wider area ??? Shaking chills ??? Swelling of the infected area ??? Vomiting ?? Last Reviewed Date: 2021 ?? 3857-9047 [employer]. All rights reserved. This information is not intended as a substitute for professional medical care. Always follow your healthcare professional's instructions. ?? * BHSPowerscribe , CIS S: TRANSCRIBE Mar Yin MD: VERIFY Event Display: Result: Authored Date: [id number] US Extremity Non-Vascular Right Limited Reason: Abscess; Right heel- blood blister vs abscess; ?drainable; Clinical Question(s): Abscess COMPARISON: None. FINDINGS: High-resolution, linear array imaging of the superficial soft tissues of the right medial heel was performed in the area of the patient's symptoms. There is no sonographically apparent mass or fluid collection. There is soft tissue edema and mild hyperemia. IMPRESSION: Cellulitis without evidence of an abscess. WSN: [id number] Ordering Physician: Rigoberto Narvaez Dictated By: Mar Yin MD Dictated Date/Time: 05/01/22 11:19 p Reviewed By: Mar Yin MD Signed By: Mar Yin MD Signed Date/Time: 05/01/22 11:19 pm Transcribed By: MAVIS Transcribed Date/Time: 05/01/22 11:18 pm * KEVIN Garcia S: Lior Hylton MD: VERIFY Event Display: Result: Authored Date: [id number] US Doppler Ext Lower Venous Right Reason: Cellulitis; Clinical Question(s): Thrombus COMPARISON: None IMAGING TECHNIQUE: Ultrasound of the veins from [...] femoral vein: Patent. No thrombosis. OTHER FINDINGS: There is diffuse calf edema. IMPRESSION: No evidence of deep venous thrombosis. WSN: [id number] Ordering Physician: Clark Noel Dictated By: Lior Gottlieb MD Dictated Date/Time: 05/01/22 9:23 am Reviewed By: Lior Gottlieb MD Signed By: Lior Gottlieb MD Signed Date/Time: 05/01/22 9:23 am Transcribed By: MAVIS Transcribed Date/Time: 05/01/22 9:23 am XR Shoulder - left GE 2 Views * KEVIN Garcia S: Vilma Aguillon MD, I: VERIFY Event Display: Result: Authored Date: [id number] Shoulder Min 2 Views Left, 2 views Reason: Pain; Pt reports fall prior to arrival; new onset pain in shoulder; Clinical Question(s): Fracture COMPARISON: None. FINDINGS: No fracture or dislocation. No arthritic change of the glenohumeral joint. Moderate degenerative changes of the AC joint. The portion of the clavicle included on the exam is intact. No calcification of the rotator cuff. IMPRESSION: Degenerative changes, no acute fracture or dislocation involving bones or joints of the left shoulder WSN: [id number] Ordering Physician: Becky Zhou Dictated By: Vilma Rowe MD, I Dictated Date/Time: 05/02/22 12:52 p Reviewed By: Vilma Rowe MD, I Signed By: Vilma Rowe MD, I Signed Date/Time: 05/02/22 12:52 pm Transcribed By: MAVIS Transcribed Date/Time: 05/02/22 12:50 pm Portable XR Chest Views * ProMedSPowerscribe , CIS S: TRANSCRIBE Vilma Rowe MD, I: VERIFY Event Display: Result: Authored Date: [id number] Chest Portable Reason: Pleuritic Pain; Reported falling prior to arrival, new onset pain L side; Clinical Question(s): Trauma COMPARISON: 06/22/2021 FINDINGS: LINES AND TUBES: None. LUNGS AND PLEURA: Clear lungs. Normal pulmonary vascularity. No pleural effusion. No pneumothorax. HEART, MEDIASTINUM AND AIDA: Heart is normal in size. Evidence of median sternotomy and CABG surgery. Normal mediastinal and hilar contour. BONES AND SOFT TISSUES: No acute abnormality. IMPRESSION: No acute abnormality. WSN: [id number] Ordering Physician: Becky Zhou Dictated By: Vilma Rowe MD, I Dictated Date/Time: 05/02/22 12:53 p Reviewed By: Vilma Rowe MD, I Signed By: Vilma Rowe MD, I Signed Date/Time: 05/02/22 12:53 pm Transcribed By: MAVIS Transcribed Date/Time: 05/02/22 12:52 pm XR Tibia and Fibula - right 2 Views * [employer] , CIS S: TRANSCRIBE Lior Ogden MD S: VERIFY Event Display: Result: Authored Date: [id number] Ankle 2 Views Right, Tibia/Fibula 2 Views Right REASON: Infection; Clinical Question(s): Osteomyelitis COMPARISON: None. FINDINGS: No evidence of acute or healing fracture or bone lesion. Intact ankle mortise and talar dome. No arthritic changes. Surgical clips in the medial leg. There are atherosclerotic vascular calcifications. IMPRESSION: No evidence of acute osseous abnormality. WSN: [id number] Ordering Physician: Clark Noel Dictated By: Lior Ogden MD Dictated Date/Time: 05/01/22 8:22 am Reviewed By: Lior Ogden MD Signed By: Lior Ogden MD Signed Date/Time: 05/01/22 8:22 am Transcribed By: MAVIS Transcribed Date/Time: 05/01/22 8:21 am XR Ankle - right 2 Views * BHSPowerscribe , CIS S: TRANSCRIBE Lior Ogden MD: VERIFY Event Display: Result: Authored Date: [id number] Ankle 2 Views Right, Tibia/Fibula 2 Views Right REASON: Infection; Clinical Question(s): Osteomyelitis COMPARISON: None. FINDINGS: No evidence of acute or healing fracture or bone lesion. Intact ankle mortise and talar dome. No arthritic changes. Surgical clips in the medial leg. There are atherosclerotic vascular calcifications. IMPRESSION: No evidence of acute osseous abnormality. WSN: [id number] Ordering Physician: Clark Noel Dictated By: Lior Ogden MD Dictated Date/Time: 05/01/22 8:22 am Reviewed By: Lior Ogden MD Signed By: Lior Ogden MD Signed Date/Time: 05/01/22 8:22 am Transcribed By: MAVIS Transcribed Date/Time: 05/01/22 8:21 am Patient Care team information Care Team Personnel Name: Nenita Song Position: [facility] RN Supv Member Role: Primary Care Nurse Name: Najma Michael RN Position: [facility] RN Member Role: Primary Care Nurse Name: Mallory Masterson NP Position: [facility] PCO Associate Professional Member Role: Primary Care Nurse Name: Scarlet Rosenthal RN Position: [facility] RN Member Role: Primary Care Nurse Name: Dung Chen MD Position: [facility] Primary Care Physician Member Role: PCP Address: Address: [address] [place] [address] Name: Heydi Oviedo RN Position: [facility] Hospital Customer Complaint Service Supervisor Member Role: Primary Care Nurse Name: Sandra Cat Position: [facility] Outreach Member Role: Lifetime Consulting Physician Name: Belinda Stevenson RN Position: [facility] RN Member Role: Primary Care Nurse Name: Luis Peters MD Position: [facility] Renal MD Member Role: Lifetime Consulting Physician Address: Address: [address] [facility] [place] [address]- Name: Zulma Martinez MD Position: [facility] Cardiology MD Member Role: Lifetime Consulting Physician Address: Address: [address] [facility] [address] [place] [address]- [place] Name: Hilda Mcdonald RN Position: [facility] RN Member Role: Primary Care Nurse Name: Zafar DOMINGUEZ Attending Position: [facility] ED Medicine Name: Scarlet Leija Position: [facility] ED TA [facility] Member Role: Field Assessor Name: Jarod Horowitz Position: [facility] ED TA [facility] Member Role: Field Assessor Name: Suzanne Jones RN Position: [facility] ED RN W/OE and Tasks Member Role: Patient Care Provider Care Team Related Persons Name: LUCIA BATEMAN Address: home [address] [place] [address]
--- OUTSIDE RECORDS SUMMARY | 2023-05-15 08:54 | XMS_ITS | Continuity of Care Document ---
Author Name Unknown Organization [facility] Address [address] [place] [address]- Care Team Providers Care Knockdown Man Name Role Phone Not on Staff, PCP Primary Care Physician Unavail able Encounter [facility] Date(s): 08/29/21 - 09/28/21 [facility] [address] [place] [address]- [place] Allergies, Adverse Reactions, Alerts Substance Reaction Severity Status lisinopril Active Immunizations Given and Recorded Vaccine Date Status Refusal Reason SARS-CoV-2 mRNA (hfwswkr-[id number]) vax 07/18/21 Recorded SARS-CoV-2 (COVID-19) mRNA BNT-162b2 [...] he received this seasons flu vaccine at [place]. 3Admin Note: Patient states he received pneumovax in 2004 at [place]. Medications aspirin 81 mg oral delayed release tablet 81 mg, 1, tablet, By Mouth, Daily, # 30 tablet, Refills 0, Tot. Refills 0, Maintenance, 06/08/21 11:45:00 EST, Route to Pharmacy Electronically, [facility]/pharmacy #[id number], Partial fill upon patient request if the [...] 2 Refills, Maintenance, 09/27/21 11:24:00 EDT, Tablet, [id number], Partial fill upon patient request if the [...] 09/27/21 Stop Date: 06/24/22 Status: Ordered Pen [place], 32 G x 4 mm BD Ultra [...] 12:49:42 Start Date: 04/07/17 Status: Ordered saccharomyces boulardii lyo 250 mg oral capsule 1 capsule [...] 09/27/21 11:24:00 EDT, Route to Pharmacy Electronically, [facility]/pharmacy #[id number], 175.3,cm, 09/27/21 10:36:00 [...]
--- OUTSIDE RECORDS SUMMARY | 2023-05-15 08:54 | XMS_ITS | Continuity of Care Document ---
Author Name Unknown Organization [facility] Address [address] [place] [address]- Care Team Providers Care Fire Sprinkler Inspector Name Role Phone Dung Chen MD Primary Care Physician [phone] Encounter [facility] Date(s): 03/10/20 - 04/09/20 [facility] [address] [place] [address] Attending Physician: Scott Mcintosh Admitting Physician: AdmtrScott [...] he received this seasons flu vaccine at [place]. 3Admin Note: Patient states he received pneumovax in 2004 at [place]. Medications aspirin 81 mg oral tablet 1 [...] Refills, Maintenance, 06/09/19 9:51:00 EST, EC Capsule, [facility]/pharmacy #[id number], 175, cm, 12/05/18 [...] 01/28/20 14:36:00 EDT, Route to Pharmacy Electronically, [facility]/pharmacy #[id number], 176, cm, 01/06/20 19:56:00 EDT, Height, 94.72, [...] 05/27/19 16:08:00 EST, Route to Pharmacy Electronically, [facility]/pharmacy #[id number], 175, cm, 12/05/18 15:23:00 EDT, Height, 84.5, [...]
--- OUTSIDE RECORDS SUMMARY | 2023-05-15 08:54 | XMS_ITS | Continuity of Care Document ---
Author Name Unknown Organization [facility] [place] Address [address] [place] [address]- Care Team Providers Care Analytical Data Miner Name Role Phone Dung Chen MD Primary Care Physician Encounter [facility] Date(s): 06/21/21 - 07/21/21 [facility] [place] [address] [place], [place] [address] Allergies, Adverse Reactions, Alerts Substance [...] received this seasons flu vaccine at [place]. 3Admin Note: Patient states he received pneumovax in 2004 at [place]. Medications aspirin 81 mg oral delayed release tablet 81 mg, 1, tablet, By Mouth, Daily, # 30 tablet, Refills 0, Tot. Refills 0, Maintenance, 06/08/21 11:45:00 EST, Route to Pharmacy Electronically, [facility]/pharmacy #[id number], Partial fill upon patient request if the prescription is for a schedule II opioid drug... Start Date: 06/08/21 Stop Date: 07/08/21 Status: Ordered Carafate 1 gm oral tablet 2 Gm, 2, tablet, By Mouth, 4 times a day, # 240 tablet, Refills 0, Tot. Refills 0, Maintenance, 06/08/21 11:45:00 EST, Route to Pharmacy Electronically, [facility]/pharmacy #[id number], Partial fill upon patient request [...] 05/27/19 16:08:00 EST, Route to Pharmacy Electronically, [facility]/pharmacy #[id number], 175, cm, 12/05/18 15:23:00 EDT, [...]
--- OUTSIDE RECORDS SUMMARY | 2023-05-15 08:54 | XMS_ITS | Continuity of Care Document ---
Author Name Unknown Organization [facility] Address [address] [place] [address]- Care Team Providers Care Lead Pony Rider Name Role Phone Dung Chen MD Primary Care Physician [phone] Encounter [facility] Date(s): 03/02/23 - 03/09/23 [facility] [address] [place] [address]- Encounter Diagnosis Cough(Discharge Diagnosis) - 03/02/23 Heart transplant status(Discharge Diagnosis) - 03/02/23 Diabetes mellitus with PVD; stents; [facility](Discharge Diagnosis) - 03/02/23 Attending Physician: Margaret Blake MD Referring Physician: Dung Chen MD Allergies, [...] virus vaccine, inactivated 03/07/06 Quinn rded SARS-CoV-2(COVID-19)mRNA-LNP vac([id number]) 02/06/23 Recorded tetanus/diphtheria/pertussis, acel(Tdap) 2 12/08/22 Given tetanus/diphtheria/pertussis, acel(Tdap) 03/27/12 Recorded pneumococcal 20-valent conjugate vaccine 3 12/08/22 Given [id number] 12y+ bivalent booster vax 04/15/22 Recorded SARS-CoV-2 mRNA ([id number]) vax 07/18/21 Recorded SARS-CoV-2 (COVID-19) mRNA BNT-162b2 [...] 23 2Result Comment: [facility] [id number] 3Result Comment: [facility] [id number] 4Admin Note: Pt states he received this seasons flu vaccine at [place]. 5Admin Note: Patient states he received pneumovax in 2004 at [place]. Medications amLODIPine 10 mg oral tablet 10 mg, 1, tablet, By Mouth, Daily, # 90 tablet, Refills 3, Tot. Refills 3, Maintenance, 11/03/22 11:30:00 EDT, Route to Pharmacy Electronically, [facility] ([facility] ), Partial fill upon patient request if the prescription is for... Start Date: 11/03/22 Status: Ordered aspirin 81 mg oral delayed release tablet 81 mg, 1, tablet, By Mouth, Daily, # 30 tablet, Refills 0, Tot. Refills 0, Maintenance, 06/08/21 11:45:00 EST, Route to Pharmacy Electronically, [facility]/pharmacy #[id number], Partial fill upon patient [...] 3 Refills, Maintenance, 01/19/23 18:26:00 EDT, [place],[facility], Partial fill upon patient request [...] 12/08/22 11:17:00 EDT, Solution, [facility] ([facility]), Partial fillupon patient request if the prescription is for a s... Start Date: 12/08/22 Status: Ordered valsartan 160 mg oral tablet 160 mg, 1, tablet, By Mouth, Daily, # 90 tablet, Refills 0, Tot. Refills 0, Maintenance, 02/12/23 22:19:00 EDT, Route to Pharmacy Electronically, [facility]/pharmacy #[id number], Partial fill upon patient requestif the prescription is for a schedule II opioid channing... Start Date: 02/12/23 Status: Ordered Problem List Condition Confirmation Course Effective Dates Status Health Status Informant Unsteady gait Confirmed Active Amputated toe of left foot Confirmed Active Weakness generalized Confirmed Active AICD (automatic cardioverter/defibrillato r) present Confirmed 06/21/05 Active BPH - [facility] Confirmed 03/14/21 Active Chronic kidney disease stage 3 Confirmed 05/17/11 Active CAD; s/p CABG 1997, [place] 2006 w/stent; heart transplant 04/30 Confirmed Active Diabetes mellitus with PVD; stents; [facility] Confirmed Active Diabetes mellitus with [...] pain Confirmed 06/15/15 Active Microscopic hematuria; [facility] Confirmed Active Neck pain Confirmed 08/29/19 [...] B12 Confirmed Active Tremor - Neurology at [facility] Confirmed 02/07/18 Active Type 2 DM with renal manifestations; [facility] Confirmed 05/04/16 Active Vitamin D deficiency Confirmed Active 1EF 20-25% prior to transplant Diagnosis Diagnosis Type Effective Dates Health Status Clinical Service Informant Cough Discharge Diagnosis 03/02/23 Heart transplant status Discharge Diagnosis 03/02/23 Diabetes mellitus with PVD; stents; [facility] Discharge Diagnosis 03/02/23 Vital Signs Most recent to oldest [Reference Range]: 1 2 Height 173 cm (03/02/23 4:33 PM) 173 cm (03/02/23 4:03 PM) Oxygen Saturation [94-100 %] 94 % (03/02/23 4:33 PM) 92 % *L* (03/02/23 4:03 PM) Pulse Rate [55-90 bpm] 110 bpm *H* (03/02/23 4:03 PM) Blood Pressure [90-138/55-84 mm Hg] 128/ 70mm Hg (03/02/23 4:03 PM) Respiratory Rate [16-30 br/min] 24 br/mi n (03/02/23 4:03 PM) Temperature [96.8-100.4 DegF] 97.6 DegF (03/02/23 4:03 PM) Mode of Delivery (Oxygen) Room air (03/02/23 4:33 PM) Room air (03/02/23 4:03 PM) Blood pressure sites Arm, left (03/02/23 4:03 PM) Temperature Route Temporal (03/02/23 4:03 PM) Social History Social History Type Response Smoking Status Former smoker, quit more than 30 days ago entered on: 10/24/22 Sex Note * Riaz Alberto: PERFORM, SIGN, VERIFY Event Display: Patient Education/Instruction Authored Date: [id number] [facility] *[facility] Clinical Summary Name REJI BATEMAN Age 72 Years 1950 PCP [facility]ung [id number] Visit Date 03/02/2023 15:58:00 Additional Instructions: Scheduled Appointments?? Future Appointments ?*[facility] ?[address],??[place],??[address] ?Phone:??--?Fax:??-- ?Appt. Date:??04/19/2023?1:40 PM ?Scheduled Provider:??Dung Chen MD ?*[facility] ?[address],??[place],??[address] ?Phone:??--?Fax:??-- ?Appt. Date:??05/02/2023?11:45 AM ?Scheduled Provider:??Katy Dupree Follow-Up Instructions ?? Diagnosis Type 2 diabetes mellitus with diabetic peripheral angiopathy without gangrene; Heart transplant status; Cough, unspecified Medications: Please continue your medications until treatment [...] rotate injection sites. Refills: 0. Next Dose: dulaglutide (Trulicity Pen 1.5 mg/0.5 mL subcutaneous solution) 0.5 Milliliter Subcutaneous Injection every week. rotate injection sites. Refills: 3. Next Dose: Duloxetine (duloxetine 20 mg oral enteric coated capsule) 1 capsule Oral twice a day. Next Dose: Durable Medical Equipment (Freestyle Nona 2 Latty) Use to monitor blood glucose, scan sensor uponwaking, before meals and at bedtime. . Refills: 0. Next Dose: Durable Medical Equipment (Freestyle Nona 2 Sensors) Use to monitor blood glucose, scan sensor upon waking, before meals and at bedtime. . Refills: 11. Next Dose: Durable Medical Equipment (Freestyle Nona Monitor) Use with Freestyle 14 day Sensor to monitor Blood Glucose. . Refills: 0. Next Dose: Durable Medical Equipment (Freestyle Nona Sensor) e11, use with freestyle nona 14 day reader for frequent glucose monitoring, change every 14 days, 28 day supply. Refills: 13. Next Dose: Durable Medical Equipment (Pen [place], 31 G x 8 mm BD Ultra Fine III) use as directed for Type 2 Diabetes Mellitus for 5 injections per day E11.9. Refills: 6. Next Dose: Fludrocortisone (fludrocortisone 0.1 mg oral tablet) Next Dose: Fluticasone Nasal (fluticasone 50 mcg/inh nasal spray) 1 spray(s) Nares, Both Daily. Refills: 3. Next Dose: Gabapentin (gabapentin 600 mg oral [...] INSOMNIA. Refills: 3. Next Dose: Valsartan (valsartan 160 mg oral tablet) 1 tab(s) Oral Daily. Refills: 0. Next Dose: Allergy Info:?? lisinopril Medications Given This Visit Future Orders ?No future orders Vital Signs Height 173 cm Weight BMI Blood Pressure 128 mm Hg/70 mm Hg Temperature 97.6 DegF Pulse Rate 110 bpm Respiratory Rate 24 br/min 02 Sat Mode of Delivery 94 %/Room air You can now view a summary of your hospital visit from the comfort of your home through a free online portal called [employer]. [employer] is a website that allows you to securely view your medical information including discharge summary, medications and follow-up visits. ??You can alsosend a secure electronic message to your doctor???s office to request appointments, renew medications or just ask a question. You can enroll at [email or web address] or register during your next office visit. [...] primary care provider, you may find a [facility] provider by calling [facility] at [phone]. [facility], in keeping with [facility] guidance, no longer requires face [...] format to support your individualized medical care. * Riaz Alberto: PERFORM, SIGN, VERIFY Event Display: Patient Education/Instruction Authored Date: [id number] [facility] *[facility] Clinical Summary Name REJI BATEMAN Age 72 Years 1950 PCP Dung Chen MD PCP Visit Date 03/02/2023 15:58:00 Additional Instructions: Scheduled Appointments?? Future Appointments ?*No??[facility] ?[address],??[place],??[address] ?Phone:??--?Fax:??-- ?Appt. Date:??04/19/2023?1:40 PM ?Scheduled Provider:??Dung Chen MD ?*[facility] ?[address],??[place],??[address] ?Phone:??--?Fax:??-- ?Appt. Date:??05/02/2023?11:45 AM ?Scheduled Provider:??Daniel SIMONS, Katy Whitley Follow-Up Instructions ?? Diagnosis Medications: Please continue [...] rotate injection sites. Refills: 0. Next Dose: dulaglutide (Trulicity Pen 1.5 mg/0.5 mL subcutaneous solution) 0.5 Milliliter Subcutaneous Injection every week. rotate injection sites. Refills: 3. Next Dose: Duloxetine (duloxetine 20 mg oral enteric coated capsule) 1 capsule Oral twice a day. Next Dose: Durable Medical Equipment (Freestyle Nona 2 Latty) Use to monitor blood glucose, scan sensor uponwaking, before meals and at bedtime. E11.65. Refills: 0. Next Dose: Durable Medical Equipment (Freestyle Nona 2 Sensors) Use to monitor blood glucose, scan sensor upon waking, before meals and at bedtime. E11.65. Refills: 11. Next Dose: Durable Medical Equipment (Freestyle [place] Monitor) Use with Freestyle 14 day Sensor to monitor Blood Glucose. E11.65. Refills: 0. Next Dose: Durable Medical Equipment (Freestyle Nona Sensor) e11.65, use with freestyle nona 14 day reader for frequent glucose monitoring, change every 14 days, 28 day supply. Refills: 13. Next Dose: Durable Medical Equipment (Pen [place], 31 G x 8 mm BD Ultra Fine III) use as directed for Type 2 Diabetes Mellitus for 5 injections per day E11.9. Refills: 6. Next Dose: Fludrocortisone (fludrocortisone 0.1 mg oral tablet) Next Dose: Fluticasone Nasal (fluticasone 50 mcg/inh nasal spray) 1 spray(s) Nares, Both Daily. Refills: 3. Next Dose: Gabapentin (gabapentin 600 mg oral [...] INSOMNIA. Refills: 3. Next Dose: Valsartan (valsartan 160 mg oral tablet) 1 tab(s) Oral Daily. Refills: 0. Next Dose: Allergy Info:?? lisinopril Medications Given This Visit Future Orders ?No future orders Vital Signs Height Weight BMI Blood Pressure / Temperature Pulse Rate Respiratory Rate 02 Sat Mode of Delivery / You can now view a summary of your hospital visit from the comfort of your home through a free online portal called [employer]. [employer] is a website that allows you to securely view your medical information including discharge summary, medications and follow-up visits. ??You can alsosend a secure electronic message to your doctor???s office to request appointments, renew medications or just ask a question. You can enroll at [email or web address] or register during your next office [...] primary care provider, you may find a [facility] provider by calling [facility] at [phone]. [facility], in keeping with [facility] guidance, no longer requires face [...] Care Team Personnel Name: Nenita Song Position: [facility] RN Supv Member Role: Primary Care Nurse Name: Sherice Mariscal RN Position: [facility] RN Member Role: Primary Care Nurse Name: Najma Michael RN Position: [facility] RN Member Role: Primary Care Nurse Name: Mallory Masterson NP Position: Reference Physician Member Role: Primary Care Nurse Address: Address: [address] [place] [address]- [place] Name: Scarlet Rosenthal RN Position: [facility] SN RN Member Role: Primary Care Nurse Name: Dung Chen MD Position: [facility] Physician - Primary Care Member Role: PCP Address: Address: [address], [place] [address]- [place] Name: Heydi Oviedo RN Position: [facility] Liquefaction Plant Operator Member Role: Primary Care Nurse Name: Mercy Veliz RN Position: [facility] RN Member Role: Primary Care Nurse Name: Sandra Cat Position: [facility] Outreach Member Role: Lifetime Consulting Physician Name: Nicki Garcia RN Position: [facility] RN Member Role: Primary Care Nurse Name: Vane Davalos RN Position: [facility] RN Member Role: Primary Care Nurse Name: Belinda Stevenson RN Position: [facility] SN RN Member Role: Primary Care Nurse Name: Luis Peters MD Position: [facility] Renal MD Member Role: Lifetime Consulting Physician Address: Address: [address] [facility], [place] [address]- [place] Name: Zulma Martinez MD Position: [facility] Cardiology MD Member Role: Lifetime Consulting Physician Address: Address: [address] [place] [address] Name: Evelyn Jean-Baptiste RN Position: [facility] RN Member Role: Primary Care Nurse Name: Hilda Mcdonald RN Position: S RN Member Role: Primary Care Nurse Care Team Related Persons Name: LUCIA BATEMAN Address: [place] [address]
--- OUTSIDE RECORDS SUMMARY | 2023-05-15 08:54 | XMS_ITS | Continuity of Care Document ---
Author Name Unknown Organization [facility] Address [address] [place] [address]- Care Team Providers Care Embossed Or Impressed Lettering Painter Name Role Phone Dung Chen MD Primary Care Physician [place] [facility] [place]): [place]20[place]22 - 06/19/22 [facility] [address] [place] [address] [id number] Allergies, Adverse Reactions, Alerts Substance Reaction Severity Status lisinopril Active Immunizations Given and Recorded Vaccine Date Status Refusal Reason SARS-CoV-2 mRNA ([id number]) vax 07/18/21 Recorded SARS-CoV-2 (COVID-19) mRNA BNT-162b2 [...] he received this seasons flu vaccine at [place]. 3Admin Note: Patient states he received pneumovax in 2004 at [place]. Medications amLODIPine 5 mg oral tablet 5 mg, 1, tablet, By Mouth, Daily, # 90 tablet, Refills 1, Tot. Refills 1, Maintenance, 05/12/22 11:54:00 EST, Route to Pharmacy Electronically, [facility] ([facility] ), Partial fill upon patient request if the prescription is for a... Start Date: 05/12/22 Status: Ordered aspirin 81 mg oral delayed release tablet 81 mg, 1, tablet, By Mouth, Daily, # 30 tablet, Refills 0, Tot. Refills 0, Maintenance, 06/08/21 11:45:00 EST, Route to Pharmacy Electronically, [facility]/pharmacy #[id number], Partial fill upon patient request if the prescription is for a schedule II opioid drug... Start Date: 06/08/21 Stop Date: 07/08/21 Status: Ordered doxycycline monohydrate 100 mg oral tablet 1 tablet = 100 mg, By Mouth, 2 times a day, for 7 days, as needed for cellulitis, # 14 tablet, 0 Refills, Acute 06/24/22 10:57:00 EST, 06/17/22 10:57:00 EST, [facility]/pharmacy #[id number], Partial fill upon [...] Maintenance, 05/24/22 12:19:00 EST, [facility] ([facility] ), Partial fill upon patient [...] Weight Start Date: 04/03/22 Status: Ordered Pen [place], 31 G x 8 mm BD Ultra Fine III See Instructions, # 300 each, Refills 6, Tot. Refills 6, Maintenance, use as directed for Type 2 Diabetes Mellitus for 5 injections per day E11.9, 12/09/21 9:52:00 EDT, Supply, 175.3, cm, 12/06/21 7:36:00 EDT, Height, 95.3, kg, 12/06/21 7:36:00 EDT... Start Date: 12/09/21 Stop Date: 08/31/23 Status: Ordered Pen [place], 32 G x 4 mm BD Ultra [...] Route to Pharmacy Electronically, [facility] ([facility] ), 175, cm, 05/12/22 11:49:00 [...] r) present Confirmed 06/21/05 Active BPH - [facility] Confirmed 03/14/21 Active Chronic kidney disease stage 3 Confirmed 05/17/11 Active CAD; s/p CABG 1997, [place] 2006 w/stent; heart transplant 04/30 Confirmed Active Diabetes mellitus with PVD; stents; [facility] Confirmed Active Diabetes mellitus with cataract [...] back pain Confirmed 06/15/15 Active Microscopic hematuria; [facility] Confirmed Active Neck pain Confirmed 08/29/19 [...] Confirmed 06/21/05 Active Tremor - Neurology at [facility] Confirmed 02/07/18 Active Type 2 DM with renal manifestations; [facility] Confirmed 05/04/16 Active 1EF 20-25% prior to transplant Social History Social History Type Response Smoking Status Former smoker, quit more than 30 days ago entered on: 06/01/21 Sex Patient Care team information Care Team Personnel Name: Nenita Song Position: [facility] RN Supv Member Role: Primary Care Nurse Name: Najma Michael RN Position: [facility] RN Member Role: Primary Care Nurse Name: Mallory Masterson NP Position: Reference Physician Member Role: Primary Care Nurse Address: Address: [address] [place] [address]- [place] Name: Scarlet Rosenthal RN Position: [facility] RN Member Role: Primary Care Nurse Name: Dung Chen MD Position: [facility] Primary Care Physician Member Role: PCP Address: Address: [address] [address]- [place] Name: Heydi Oviedo RN Position: [facility] Hospital Payroll Associate Member Role: Primary Care Nurse Name: Sandra Cat Position: [facility] Outreach Member Role: Lifetime Consulting Physician Name: Luis Peters MD Position: [facility] Renal MD Member Role: Lifetime Consulting Physician Address: Address: [address] [facility] [address] [facility] [place] [address]- [place] Name: Zulma Martinez MD Position: [facility] Cardiology MD Member Role: Lifetime Consulting Physician Address: Address: [address] [facility] [address] [place] [address]- [place] Name: Evelyn Jean-Baptiste RN Position: [facility] RN Member Role: Primary Care Nurse Name: Hilda Mcdonald RN Position: [facility] RN Member Role: Primary Care Nurse Care Team Related Persons Name: BATEMAN LUCIA Address: home [address] [place] [address]
--- OUTSIDE RECORDS SUMMARY | 2023-05-15 08:54 | XMS_ITS | Continuity of Care Document ---
Author Name Unknown Organization [facility] [place] Address [address] [place] [address]- Care Team Providers Care Sports Management Professor Name Role Phone Dung Chen MD Primary Care Physician [phone] Encounter [facility] Date(s): 03/17/20 - 04/16/20 [facility] [address] [address] Allergies, Adverse Reactions, Alerts [...] he received this seasons flu vaccine at [place]. 3Admin Note: Patient states he received pneumovax in 2004 at [place]. Medications aspirin 81 mg oral tablet [...] Refills, Maintenance, 06/09/19 9:51:00 EST, EC Capsule, [facility]/pharmacy #[id number], 175, cm, 12/05/18 15:23:00 [...] 01/28/20 14:36:00 EDT, Route to Pharmacy Electronically, [facility]/pharmacy #[id number], 176, cm, 01/06/20 19:56:00 [...] 05/27/19 16:08:00 EST, Route to Pharmacy Electronically, [facility]/pharmacy #[id number], 175, cm, 12/05/18 15:23:00 [...]
--- OUTSIDE RECORDS SUMMARY | 2023-05-15 08:54 | XMS_ITS | Continuity of Care Document ---
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 3Admin Note: Patient states he received pneumovax in 2004 at [place]. Medications amLODIPine 5 mg oral tablet 5 mg, 1, tablet, By Mouth, Daily, # 90 tablet, Refills 1, Tot. Refills 1, Maintenance, 05/12/22 11:54:00 EST, Route to Pharmacy Electronically, [facility] ([facility] ), Partial fill upon patient request if the prescription is for a... Start Date: 05/12/22 Status: Ordered aspirin 81 mg oral delayed release tablet 81 mg, 1, tablet, By Mouth, Daily, # 30 tablet, Refills 0, Tot. Refills 0, Maintenance, 06/08/21 11:45:00 EST, Route to Pharmacy Electronically, [facility]/pharmacy #[id number], Partial fill upon patient request if the [...] 02/03/22 9:07:00 EDT, Route to Pharmacy Electronically, [facility] ([facility]), 175.3, cm, [...] Maintenance, 05/24/22 12:19:00 EST, [facility] ([facility] ), Partial fill upon patient [...] Weight Start Date: 04/03/22 Status: Ordered Pen [place], 31 G x 8 mm BD Ultra Fine III See Instructions, # 300 each, Refills 6, Tot. Refills 6, Maintenance, use as directed for Type 2 Diabetes Mellitus for 5 injections per day E11.9, 12/09/21 9:52:00 EDT, Supply, 175.3, cm, 12/06/21 7:36:00 EDT, Height, 95.3, kg, 12/06/21 7:36:00 EDT... Start Date: 12/09/21 Stop Date: 08/31/23 Status: Ordered Pen [place], 32 G x 4 mm BD Ultra [...] 05/12/22 11:54:00 EST, Route to Pharmacy Electronically, [facility] ([facility] ), 175, cm, 05/12/22 11:49:00 EST, H... Start Date: 05/12/22 Status: Ordered Vitamin D3 50,000 intl units oral capsule 1 capsule = 1,250 mcg, By Mouth, Every week, # 8 capsule, 0 Refills, Maintenance, 06/08/22 12:19:00EST, Capsule, [facility]/pharmacy #[id number], Partial fill upon patient request if the prescription is for a schedule II opioid drug., 176, cm, 06/08/22 12:04:00 E... Start Date: 06/08/22 Stop Date: 08/03/22 Status: Ordered Problem List Condition Confirmation Course Effective Dates Status Health Status Informant Unsteady gait Confirmed Active AICD (automatic cardioverter/defibrillato r) present Confirmed 06/21/05 Active BPH - [facility] Confirmed 03/14/21 Active Chronic kidney disease stage 3 Confirmed 05/17/11 Active CAD; s/p CABG 1997, [place] 2006 w/stent; heart transplant 04/30 Confirmed Active Diabetes mellitus with PVD; stents; [facility] Confirmed Active Diabetes mellitus with cataract Confirmed [...] back pain Confirmed 06/15/15 Active Microscopic hematuria; [facility] Confirmed Active Neck pain Confirmed [...] Confirmed 06/21/05 Active Tremor - Neurology at [facility] Confirmed 02/07/18 Active Type 2 DM with renal manifestations; [facility] Confirmed 05/04/16 Active 1EF 20-25% prior to transplant Diagnosis Diagnosis Type Effective Dates Health Status Clinical Service Informant Unsteady gait Discharge Diagnosis 07/19/22 Neuropathy due to diabetes mellitus Discharge Diagnosis 07/19/22 Noncompressible blood vessels of extremity Discharge Diagnosis 07/19/22 Vital Signs Most recent to oldest [Reference Range]: 1 Height 176 cm (07/19/22 11:16 AM) Weight 102.7 kg (07/19/22 11:16 AM) Oxygen Saturation [94-100 %] 99 % (07/19/22 11:16 AM) Pulse Rate [55-90 bpm] 96 bpm *H* (07/19/22 11:16 AM) Body Mass Index [18.5-24.99 kg/m2] 33.15 kg/m2 *>HHI* (07/19/22 11:16 AM) Blood Pressure [90-138/55-84 mm Hg] 126/ 68mm Hg (07/19/22 11:16 AM) Blood pressure sites Arm, left (07/19/22 11:16 AM) Social History Social History Type Response Smoking Status Former smoker, quit more than 30 days ago entered on: 06/01/21 Sex Note * Najma Tran: PERFORM, SIGN, VERIFY Event Display: Patient Education/Instruction Authored Date: [id number] [facility] *No Edge Adult Ped Clinical Summary Name REJI BATEMAN Age 71 Years 1950 PCP [facility]ung [id number] Visit Date 07/19/2022 10:59:00 Additional Instructions: Scheduled Appointments?? Future Appointments ?*[facility]Endocrine ?[address]??[place],??[place],??[address] ?Phone:??--?Fax:??-- ?Appt. Date:??09/23/2022?11:15 AM ?Scheduled Provider:??Deandre VIDES, [place] Follow-Up Instructions ?? Diagnosis Type 2 diabetes mellitus with diabetic neuropathy, unspecified; Unsteadiness on feet; Other disorder of circulatory system Medications: Please continue your medications until treatment is completed or stopped by your provider. Discuss any questions related to medications with your provider. Medications to Continue with No Changes These medications were not printed or sent to your pharmacy Acetaminophen/Butalbital/Caffeine (Fioricet oral capsule) 1 capsule Oral every 6 hours as needed Headache. Refills: 0. Next Dose: Amlodipine (amLODIPine 5 mg oral tablet) 1 tab(s) Oral Daily. Refills: 1. Next Dose: Aspirin (aspirin 81 mg oral [...] 13. Next Dose: Durable Medical Equipment (Pen [place], 31 G x 8 mm BD Ultra Fine III) use as directed for Type 2 Diabetes Mellitus for 5 injections per day E11.9. Refills: 6. Next Dose: Durable Medical Equipment (Pen [place], 32 G x 4 mm BD Ultra Fine III) Next Dose: Fludrocortisone (fludrocortisone 0.1 mg oral tablet) Next Dose: Fluticasone Nasal (fluticasone 50 mcg/inh nasal spray) Next Dose: Gabapentin (gabapentin 300 mg oral capsule) 1 capsule Oral 3 times a day. Refills: 5. Next Dose: insulin degludec (insulin degludec (concentrated) 200 units/mL subcutaneous solution) 42 units in the AM and 52 units in the PM 90 days supply. Refills: 3. Next Dose: Insulin Lispro (Humalog Kwik Pen 100 units/mL subcutaneous injection) e11.65, use as back up to failed inpen device. following sliding scale, up to 16 units subcutaneously three times a day with meals. max daily dose 48 units. Refills: 1. Next Dose: Miscellaneous Rx (Rx: Physical Therapy) Rx: Physical Therapy Dx: Frequent falls, deconditioning. Refills: 0. Next Dose: Mycophenolate Sodium (mycophenolic acid 360 mg oral delayed release tablet) 2 tab(s) Oral twice a day. Next Dose: Pantoprazole (pantoprazole 40 mg oral delayed release tablet) 1 tab(s) Oral twice a day. Refills: 1. Next Dose: PredniSONE (predniSONE 5 mg oral tablet) 1 tab(s) Oral Daily. Next Dose: Rosuvastatin (rosuvastatin 20 mg oral tablet) 1 tab(s) Oral Daily. Next Dose: Tacrolimus (tacrolimus 1 mg oral capsule) 2.5 capsule Oral twice a day. 3 in the AM & 3 in the Evening. Next Dose: Trazodone (traZODone 100 mg oral tablet) 2 tab(s) Oral Daily at Bedtime as needed Insomnia. Refills: 1. Next Dose: Allergy Info:?? lisinopril Medications Given This Visit Future Orders ?No future orders Vital Signs Height 176 cm Weight 102.7 kg BMI 33.15 kg/m2 Blood Pressure 126 mm Hg/68 mm Hg Temperature Pulse Rate 96 bpm Respiratory Rate 02 Sat Mode of Delivery 99 %/ You can now view a summary of your hospital visit from the comfort of your home through a free online portal called [employer]. [employer] is a website that allows you to securely view your medical information including discharge summary, medications and follow-up visits. ??You can alsosend a secure electronic message to your doctor???s office to request appointments, renew medications or just ask a question. You can enroll at [email or web address] or register during your next office [...] primary care provider, you may find a [facility] provider by calling [facility] Context app Link at [phone]. For information about the plan of care [...] Care Team Personnel Name: Nenita Song Position: [facility] RN Supv Member Role: Primary Care Nurse Name: Najma Michael RN Position: [facility] RN Member Role: Primary Care Nurse Name: Aleja RESPIRATORY THERAPY MANAGERMallory Position: Reference Physician Member Role: Primary Care Nurse Address: Address: [address] [place] [address]- [place] Name: Scarlet Rosenthal RN Position: [facility] SN RN Member Role: Primary Care Nurse Name: Dung Chen MD Position: [facility] Primary Care Physician Member Role: PCP Address: Address: [address] [place] [address]- [place] Name: Heydi Oviedo RN Position: [facility] Hospital Exhibition Specialist Member Role: Primary Care Nurse Name: Sandra Cat Position: [facility] Outreach Member Role: Lifetime Consulting Physician Name: Luis Peters MD Position: [facility] Renal MD Member Role: Lifetime Consulting Physician Address: Address: [address] [facility] [address] [facility] [place] [address]- [place] Name: Zulma Martinez MD Position: [facility] Cardiology MD Member Role: Lifetime Consulting Physician Address: Address: [address] [place] [address] [place] [address]- [place] Name: Evelyn Jean-Baptiste RN Position: [facility] RN Member Role: Primary Care Nurse Name: Hilda Mcdonald RN Position: [facility] RN Member Role: Primary Care Nurse Care Team Related Persons Name: BHAVANA LUCIA Address: home [address] [place] [address]
--- OUTSIDE RECORDS SUMMARY | 2023-05-15 08:54 | XMS_ITS | Continuity of Care Document ---
Author Name Unknown Organization [facility] Address [address] [place] [address]- Care Team Providers Care Picking Tech Name Role Phone Dung Chen MD Primary Care Physician [phone] Encounter [facility] Date(s): 05/20/22 - 06/19/22 [facility] [address] [place] [address] Allergies, Adverse Reactions, Alerts Substance Reaction Severity Status lisinopril Active Immunizations Given and Recorded Vaccine Date Status Refusal Reason SARS-CoV-2 mRNA (hzhxdpp-iwky-eevkp) vax 07/18/21 Recorded SARS-CoV-2 (COVID-19) mRNA BNT-162b2 [...] he received this seasons flu vaccine at [place]. 3Admin Note: Patient states he received pneumovax in 2004 at [place]. Medications amLODIPine 5 mg oral tablet 5 mg, 1, tablet, By Mouth, Daily, # 90 tablet, Refills 1, Tot. Refills 1, Maintenance, 05/12/22 11:54:00 EST, Route to Pharmacy Electronically, [facility] ([facility] ), Partial fill upon patient request if the prescription is for a... Start Date: 05/12/22 Status: Ordered aspirin 81 mg oral delayed release tablet 81 mg, 1, tablet, By Mouth, Daily, # 30 tablet, Refills 0, Tot. Refills 0, Maintenance, 06/08/21 11:45:00 EST, Route to Pharmacy Electronically, [facility]/pharmacy #[id number], Partial fill [...] Acute 06/24/22 10:57:00 EST, 06/17/22 10:57:00 EST, [facility]/pharmacy #[id number], Partial fill [...] Maintenance, 05/24/22 12:19:00 EST, [facility] ([facility] ), Partial fill upon patient [...] Weight Start Date: 04/03/22 Status: Ordered Pen [place], 31 G x [...] Route to Pharmacy Electronically, [facility] ([facility] ), 175, cm, 05/12/22 11:49:00 [...] r) present Confirmed 06/21/05 Active BPH - [facility]rology Confirmed 03/14/21 Active Chronic kidney disease stage 3 Confirmed 05/17/11 Active CAD; s/p CABG 1997, [place] 2006 w/stent; heart transplant 04/30 Confirmed Active Diabetes mellitus with PVD; stents; [facility] Confirmed Active Diabetes mellitus with cataract [...] back pain Confirmed 06/15/15 Active Microscopic hematuria; [facility] Confirmed Active Neck pain [...] Confirmed 06/21/05 Active Tremor - Neurology at [facility] Confirmed 02/07/18 Active Type 2 DM with renal manifestations; [facility] Confirmed 05/04/16 Active 1EF 20-25% prior to transplant Social History Social History Type Response Smoking Status Former smoker, quit more than 30 days ago entered on: 06/01/21 Sex Patient Care team information Care Team Personnel Name: Nenita Song Position: [facility] RN Supv Member Role: Primary Care Nurse Name: Najma Michael RN Position: [facility] RN Member Role: Primary Care Nurse Name: Mallory Masterson NP Position: Reference Physician Member Role: Primary Care Nurse Address: Address: [address] [place] [address]- [place] Name: Scarlet Rosenthal RN Position: [facility] RN Member Role: Primary Care Nurse Name: Dung Chen MD Position: [facility] Primary Care Physician Member Role: PCP Address: Address: [address] [address]- [place] Name: Heydi Oviedo RN Position: [facility] Hospital Canvas Goods Supervisor Member Role: Primary Care Nurse Name: Sandra Cat Position: [facility] Outreach Member Role: Lifetime Consulting Physician Name: Luis Peters MD Position: [facility] Renal MD Member Role: Lifetime Consulting Physician Address: Address: [address] [facility] [address] [facility] [place] [address]- [place] Name: Zulma Martinez MD Position: [facility] Cardiology MD Member Role: Lifetime Consulting Physician Address: Address: [address] [facility] [address] [place] [address]- [place] Name: Evelyn Jean-Baptiste RN Position: [facility] RN Member Role: Primary Care Nurse Name: Hilda Mcdonald RN Position: [facility] RN Member Role: Primary Care Nurse Care Team Related Persons Name: BATEMAN LUCIA Address: home [address] [place] [address]
--- OUTSIDE RECORDS SUMMARY | 2023-05-15 08:54 | XMS_ITS | Continuity of Care Document ---
Author Name Unknown Organization [facility] Address [address] [place] [address]- Care Team Providers Care Life Guard Name Role Phone Dung Chen MD Primary Care Physician Encounter [facility] Date(s): 03/15/23 - 04/19/23 [facility] [address] [place], [place] [address] Attending Physician: Margarita Bai NP Allergies, Adverse Reactions, Alerts Substance Reaction Severity [...] virus vaccine, inactivated 03/07/06 Quinn rded SARS-CoV-2(COVID-19)mRNA-LNP vac([id number]) 02/06/23 Recorded tetanus/diphtheria/pertussis, acel(Tdap) 2 12/08/22 Given tetanus/diphtheria/pertussis, acel(Tdap) 03/27/12 Recorded pneumococcal 20-valent conjugate vaccine 3 12/08/22 Given [id number] 12y+ bivalent booster vax 04/15/22 Recorded SARS-CoV-2 mRNA (kiptifl-zhgt-vvzhw) vax 07/18/21 Recorded SARS-CoV-2 (COVID-19) mRNA BNT-162b2 [...] 2795CA Exp. #) SEP 23 2Result Comment: [facility] [id number] 3Result Comment: [facility] [id number] 4Admin Note: Pt states he received this seasons flu vaccine at [place]. 5Admin Note: Patient states he received pneumovax in 2004 at [place]. Medications Albuterol 0.083% inhalation roger Refills 0, Maintenance, 03/20/23 8:54:00 EST Start Date: 03/20/23 Status: Ordered amLODIPine 10 mg oral tablet 10 mg, 1, tablet, By Mouth, Daily, # 90 tablet, Refills 3, Tot. Refills 3, Maintenance, 11/03/22 11:30:00 EDT, Route to Pharmacy Electronically, [facility] ([facility] ), Partial fill upon patient [...] 06/08/21 11:45:00 EST, Route to Pharmacy Electronically, [facility]/pharmacy #[id number], Partial fill upon patient request if the [...] 3 Refills, Maintenance, 01/19/23 18:26:00 EDT, Nasal [place],[facility], Partial fill upon patient request [...] 12/08/22 11:17:00 EDT, Solution, [facility] ([facility]), Partial fillupon patient request if [...] r) present Confirmed 06/21/05 Active BPH - [facility]rology Confirmed 03/14/21 Active Chronic kidney disease stage 3 Confirmed 05/17/11 Active CAD; s/p CABG 1997, [place] 2006 w/stent; heart transplant 04/30 Confirmed Active Diabetes mellitus with PVD; stents; [facility] Confirmed Active Diabetes mellitus with [...] back pain Confirmed 06/15/15 Active Microscopic hematuria; [facility] Confirmed Active Neck pain [...] B12 Confirmed Active Tremor - Neurology at [facility] Confirmed 02/07/18 Active Type 2 DM with renal manifestations; [facility] Confirmed 05/04/16 Active Vitamin D deficiency Confirmed Active 1EF 20-25% prior to transplant Social History Social History Type Response Smoking Status Former smoker, quit more than 30 days ago entered on: 10/24/22 Sex Patient Care team information Care Team Personnel Name: Nenita Song Position: [facility] [place] Supv Member Role: Primary Care Nurse Name: Sherice Mariscal RN Position: [facility] RN Member Role: Primary Care Nurse Name: Najma Michael RN Position: [facility] RN Member Role: Primary Care Nurse Name: Mallory Masterson NP Position: Reference Physician Member Role: Primary Care Nurse Address: Address: [address] [place] [address]- Name: Scarlet Rosenthal RN Position: [facility] RN Member Role: Primary Care Nurse Name: Dung Chen MD Position: [facility] Physician - Primary Care Member Role: PCP Address: Address: [address] [place] [address]- Name: Heydi Oviedo RN Position: [facility] Hospital Dining Server Member Role: Primary Care Nurse Name: Mercy Veliz RN Position: [facility] RN Member Role: Primary Care Nurse Name: Sandra Cat Position: [facility] Outreach Member Role: Lifetime Consulting Physician Name: Nicki Garcia RN Position: [facility] RN Member Role: Primary Care Nurse Name: Vane Davalos RN Position: [facility] RN Member Role: Primary Care Nurse Name: Belinda Stevenson RN Position: [facility] SN RN Member Role: Primary Care Nurse Name: Luis Peters MD Position: [facility] Renal MD Member Role: Lifetime Consulting Physician Address: Address: [address] [place] [address] [address] [facility], [place] [address]- Name: Zulma Martinez MD Position: [facility] Cardiology MD Member Role: Lifetime Consulting Physician Address: Address: [address] [place] [address] [place] [address]- Name: Evelyn Jean-Baptiste RN Position: [facility] RN Member Role: Primary Care Nurse Name: Hilda Mcdonald RN Position: [facility] RN Member Role: Primary Care Nurse Care Team Related Persons Name: LUCIA BATEMAN Address: home [address] [place] [address]
--- OUTSIDE RECORDS SUMMARY | 2023-05-15 08:54 | XMS_ITS | Continuity of Care Document ---
Author Name Unknown Organization [facility] Address [address] [place] [address]- Care Team Providers Care Quill Stripper Name Role Phone Dung Chen MD Primary Care Physician [place] [facility] Date(s): 03/26/21 - 04/29/21 [facility] Diabetes [address] [place] [address] Attending Physician: Sada Oviedo MD Admitting Physician: Sada Oviedo MD Allergies, Adverse Reactions, Alerts Substance Reaction [...] he received this seasons flu vaccine at [place]. 3Admin Note: Patient states he received pneumovax in 2004 at [place]. Medications aspirin 81 mg oral tablet 1 tablet = 81 mg, By Mouth, Daily, # 30 tablet, 0 Refills, Maintenance, 04/07/17 12:54:17, Tablet Start Date: 04/07/17 Status: Ordered Ativan 1 mg oral tablet See Instructions, 1 tablet By Mouth 30 minutes before MRI. May repeat once at time of test., # 2 tablet, 0 Refills, Maintenance, 08/17/20 17:02:00 EDT, [facility]/pharmacy #[id number], Partial fill upon patient request if the [...] Refills, Maintenance, 06/09/19 9:51:00 EST, EC Capsule, [facility]/pharmacy #[id number], 175, cm, 12/05/18 15:23:00 EDT, [...] 3, 04/13/21 9:50:00 EST,Route to Pharmacy Electronically, [facility]/pharmacy #[id number], 176, cm, 03/30/21 10:45:00 EST, Height, 94.72, kg, 10/09/19 14:08:00 EDT, Dry Weight Start Date: 04/13/21 Status: Ordered HumaLOG Cartridge 100 units/mL injectable solution See Instructions, Use 3 times daily before meals. E11.65.; for use with InPen. 90-day supply., # 90mL, 3 Refills, Maintenance, 04/15/21 19:46:00 EST, Solution, [facility], Humalog [facility]: [id number] (cartridges), 176, cm, 03/30/21 10:45:00 E... Start Date: 04/15/21 Status: Ordered In Pen- Humalog, Blue In Pen- Humalog, Blue, See Instructions, # 1 each, Refills 1, Tot. Refills 1, Maintenance, Use to administer Humalog 3 times daily before meals. E11.65., 04/15/21 19:48:00 EST, Humalog Blue: [id number], Supply, 176, cm, 03/30/21 10:45:00 EST, Height... [...] Compound Start Date: 10/15/18 Status: Ordered Pen [place], 31 G x 5 mm BD Ultra Fine III See Instructions, # 120 each, Refills 6, Tot. Refills 6, Maintenance, injects 4 times a day E11.65,08/24/20 9:11:00 EDT, fax [phone], Compound, 176, cm, 08/17/20 16:06:00 EDT, Height, 94.72, kg, 10/09/19 14:08:00 EDT, Dry Weight Start Date: 08/24/20 Status: Ordered Plavix 75 mg oral tablet 75 mg, 1, tablet, By Mouth, Daily, # 90 tablet, Refills 3, Tot. Refills 3, Maintenance, 01/28/20 14:36:00 EDT, Route to Pharmacy Electronically, [facility]/pharmacy #[id number], 176, cm, 01/06/20 19:56:00 EDT, [...] 05/27/19 16:08:00 EST, Route to Pharmacy Electronically, [facility]/pharmacy #[id number], 175, cm, 12/05/18 15:23:00 EDT, [...]
--- OUTSIDE RECORDS SUMMARY | 2023-05-15 08:54 | XMS_ITS | Continuity of Care Document ---
Author Name Unknown Organization [facility] Address [address] [place] [address]- Care Team Providers Care Desktop Engineer Name Role Phone Dung Chen MD Primary Care Physician Encounter [facility] [place] Date(s): 08/06/20 - 09/05/20 [facility] [address] [address]- Attending Physician: Scott Mcintosh Admitting Physician: Scott [...] he received this seasons flu vaccine at [place]. 3Admin Note: Patient states he received pneumovax in 2004 at [place]. Medications aspirin 81 mg oral tablet 1 tablet = 81 mg, By Mouth, Daily, # 30 tablet, 0 Refills, Maintenance, 04/07/17 12:54:17, Tablet Start Date: 04/07/17 Status: Ordered Ativan 1 mg oral tablet See Instructions, 1 tablet By Mouth 30 minutes before MRI. May repeat once at time of test., # 2 tablet, 0 Refills, Maintenance, 08/17/20 17:02:00 EDT, [facility]/pharmacy #[id number], Partial fill upon patient request if the [...] Refills, Maintenance, 06/09/19 9:51:00 EST, EC Capsule, [facility]/pharmacy #[id number], 175, cm, 12/05/18 15:23:00 EDT, [...] 05/19/20 10:59:00 EST, Route to Pharmacy Electronically, [facility]/pharmacy #[id number], Partial fill upon patient request if the prescription is for a schedule II... Start Date: 05/19/20 Status: Ordered Humalog Kwik Pen 100 units/mL subcutaneous injection See Instructions, 10- units , subcutaneous infusion, 3 times a [...] Compound Start Date: 10/15/18 Status: Ordered Pen Samson, 31 G x 5 mm BD Ultra Fine III See Instructions, # 120 each, Refills 6, Tot. Refills 6, Maintenance, injects 4 times a day E11.65,08/24/20 9:11:00 EDT, fax [phone], Compound, 176, cm, 08/17/20 16:06:00 EDT, Height, 94.72, kg, 10/09/19 14:08:00 EDT, Dry Weight Start Date: 08/24/20 Status: Ordered Plavix 75 mg oral tablet 75 mg, 1, tablet, By Mouth, Daily, # 90 tablet, Refills 3, Tot. Refills 3, Maintenance, 01/28/20 14:36:00 EDT, Route to Pharmacy Electronically, [facility]/pharmacy #[id number], 176, cm, 01/06/20 19:56:00 EDT, [...] 05/27/19 16:08:00 EST, Route to Pharmacy Electronically, [facility]/pharmacy #[id number], 175, cm, 12/05/18 15:23:00 EDT, [...]
--- OUTSIDE RECORDS SUMMARY | 2023-05-15 08:54 | XMS_ITS | Continuity of Care Document ---
Author Name Unknown Organization [facility] Address [address] [place] [address]- Care Team Providers Care Wardrobe Manager Name Role Phone Dung Chen MD Primary Care Physician Encounter [place] Date(s): 04/29/19 - 05/06/[address] [address]- [facility] Attending Physician: Emilee ASSOCIATE CURATOR , Magalys Szymanski Allergies, Adverse Reactions, Alerts Substance Reaction Severity [...] he received this seasons flu vaccine at [place]. 3Admin Note: Patient states he received pneumovax in 2004 at [place]. Medications aspirin 81 mg oral tablet 1 [...] Date: 06/09/19 Stop Date: 12/06/19 Status: Ordered duloxetine 60 mg oral enteric coated capsule 1 capsule = 60 mg, By Mouth, 2 times a day, for 30 days, # 60 capsule, 5 Refills, Hard Stop 06/09/19 9:51:00 EST, 12/11/18 9:51:00 EDT, EC Capsule, [facility]/pharmacy #[id number] Start Date: 12/11/18 Stop Date: 06/09/19 Status: Ordered Freestyle amalia 14-day reader Freestyle [...] EC Tablet Start Date: 04/07/17 Status: Ordered Mistral SolutionsTouch Verio Test Strips See Instructions, # 300 [...] Date: 05/27/19 Stop Date: 11/23/19 Status: Ordered traZODone 100 mg oral tablet 200 mg, 2, tablet, By Mouth, Daily at bedtime, PRN, for 30 days, # 60 tablet, Refills 5, Tot. Refills 5, Hard Stop 05/27/19 16:08:11 EST, Insomnia, 11/28/18 16:08:11 EDT, Route to Pharmacy Electronically, [facility]/pharmacy #[id number] Start Date: 11/28/18 Stop Date: 05/27/19 Status: Ordered Problem List Condition Effective Dates [...]
--- OUTSIDE RECORDS SUMMARY | 2023-05-15 08:54 | XMS_ITS | Continuity of Care Document ---
Author Name Unknown Organization [facility] Address [address] [place] [phone]- Care Team Providers Care Director Of Outreach Name Role Phone Dung Chen MD Primary Care Physician Encounter [facility] Date(s): 02/17/22 - 03/19/22 [facility] [address] [place] [id number] Allergies, Adverse Reactions, Alerts Substance Reaction Severity Status lisinopril Active Immunizations Given and Recorded Vaccine Date Status Refusal Reason SARS-CoV-2 mRNA ([id number]) vax 07/18/21 Recorded SARS-CoV-2 (COVID-19) mRNA BNT-162b2 [...] he received this seasons flu vaccine at [place]. 3Admin Note: Patient states he received pneumovax in 2004 at [place]. Medications aspirin 81 mg oral delayed release tablet 81 mg, 1, tablet, By Mouth, Daily, # 30 tablet, Refills 0, Tot. Refills 0, Maintenance, 06/08/21 11:45:00 EST, Route to Pharmacy Electronically, [facility]/pharmacy #[id number], Partial fill upon patient request if the [...] 02/03/22 9:07:00 EDT, Route to Pharmacy Electronically, [facility] ([facility]), 175.3, cm, 01/03/22 13:47:00 EDT, Height, 95.3, kg, 12/06/21 7:36:00 ED... Start Date: 02/03/22 Status: Ordered HumaLOG Cartridge 100 units/mL injectable solution See Instructions, Insert cartridge into Inpen device, inject 16 units subq 3x a day with meals, Maxdaily dose 48 units, E11.65, # 30 mL, 6 Refills, Maintenance, 08/03/21 10:25:00 EDT, [facility], 175, cm, 07/26/21 8:27:00 EDT, [...] 11/11/21 Stop Date: 08/08/22 Status: Ordered Pen Buxton, 31 G x 8 mm BD Ultra Fine III See Instructions, # 300 each, Refills 6, Tot. Refills 6, Maintenance, use as directed for Type 2 Diabetes Mellitus for 5 injections per day E11.9, 12/09/21 9:52:00 EDT, Supply, 175.3, cm, 12/06/21 7:36:00 EDT, Height, 95.3, kg, 12/06/21 7:36:00 EDT... Start Date: 12/09/21 Stop Date: 08/31/23 Status: Ordered Pen Buxton, 32 G x 4 mm BD Ultra [...] 11:24:00 EDT, Route to Pharmacy Electronically, [facility]/pharmacy #[id number], 175.3,cm, 09/27/21 10:36:00 EDT, Height, [...] r) present Confirmed 06/21/05 Active BPH - [facility] Confirmed 03/14/21 Active Chronic kidney disease stage 3 Confirmed 05/17/11 Active CAD; s/p CABG 1997, [place] 2006 w/stent; heart transplant 04/30 Confirmed Active Diabetes mellitus Confirmed Active Diabetes mellitus with PVD; stents; [facility] Confirmed Active Diabetes mellitus with [...] back pain Confirmed 06/15/15 Active Microscopic hematuria; [facility] Confirmed Active Neck pain [...] Confirmed 06/21/05 Active Tremor - Neurology at [facility] Confirmed 02/07/18 Active Type 2 DM with renal manifestations; [facility] Confirmed 05/04/16 Active 1EF 20-25% prior to transplant Social History Social History Type Response Smoking Status Former smoker, quit more than 30 days ago entered on: 06/01/21 Sex Patient Care team information Care Team Personnel Name: Najma Michael RN Position: [facility] RN Member Role: Primary Care Nurse Name: Mallory Masterson NP Position: [facility] PCO Associate Professional Member Role: Primary Care Nurse Name: Dung Chen MD Position: [facility] Primary Care Physician Member Role: PCP Address: Address: [address] [place] [address]- Name: Ivelisse WARREN, Heydi Ontiveros Position: [facility] Hospital Manager Personnel Selection Member Role: Primary Care Nurse Name: Sandra Cat Position: [facility] Outreach Member Role: Lifetime Consulting Physician Name: Belinda Stevenson RN Position: [facility] RN Member Role: Primary Care Nurse Name: Luis Peters MD Position: [facility] Renal MD Member Role: Lifetime Consulting Physician Address: Address: [address] [facility] [facility] [address] [facility] [place] [address]- Name: Zulma Martinez MD Position: [facility] Cardiology MD Member Role: Lifetime Consulting Physician Address: Address: [address] [place] [address]- [place] Name: Hilda Mcdonald RN Position: [facility] RN Member Role: Primary Care Nurse Care Team Related Persons Name: LUCIA BATEMAN Address: home [address] [place] [address]
--- OUTSIDE RECORDS SUMMARY | 2023-05-15 08:55 | XMS_ITS | Continuity of Care Document ---
Author Name Unknown Organization [facility] Address [address] [place] [address]- Care Team Providers Care Survey Research Associate Name Role Phone Dung Chen MD Primary Care Physician [place] [facility] [place] 09/07/22 - 10/07/22 [facility] [address] [place], [place] [address] Allergies, Adverse Reactions, Alerts Substance Reaction Severity Status lisinopril Active Immunizations Given and Recorded Vaccine Date Status Refusal Reason SARS-CoV-2 mRNA (ovbrudm-koqe-oewox) vax 07/18/21 Recorded SARS-CoV-2 (COVID-19) mRNA BNT-162b2 [...] he received this seasons flu vaccine at [place]. 3Admin Note: Patient states he received pneumovax in 2004 at [place]. Medications amLODIPine 5 mg oral tablet 5 mg, 1, tablet, By Mouth, Daily, # 90 tablet, Refills 1, Tot. Refills 1, Maintenance, 05/12/22 11:54:00 EST, Route to Pharmacy Electronically, [facility] ([facility] ), Partial fill upon patient [...] 0 Refills, Maintenance, 09/12/22 12:42:00 EDT, Tablet, [facility]/pharmacy #[id number], Partial fill up... Start Date: 09/12/22 Status: Ordered aspirin 81 mg oral delayed release tablet 81 mg, 1, tablet, By Mouth, Daily, # 30 tablet, Refills 0, Tot. Refills 0, Maintenance, 06/08/21 11:45:00 EST, Route to Pharmacy Electronically, [facility]/pharmacy #[id number], Partial fill upon patient [...] 02/03/22 9:07:00 EDT, Route to Pharmacy Electronically, [facility] ([facility]), 175.3, cm, 01/03/22 13:47:00 EDT, Height, 95.3, kg, 12/06/21 7:36:00 ED... Start Date: 02/03/22 Status: Ordered Humalog Cartridge 100 units/mL subcutaneous injection See Instructions, INSERT CARTRIDGE INTO INPEN DEVICE AND INJECT SUBCUTANEOUSLY 16 UNITS 3 TIMES DAILY WITH MEALS - MAX DAILY DOSE: 48 UNITS, # 45 mL, 3 Refills, Maintenance, 08/23/22 12:58:00 EDT, [facility] ([facility]), 176, cm... Start Date: 08/23/22 Status: Ordered insulin degludec (concentrated) 200 units/mL subcutaneous solution See Instructions, 42 units in the AM and 52 units in the PM 90 days supply, # 75 mL, 3 Refills, Maintenance, 05/24/22 12:19:00 EST, [facility] ([facility] ), Partial fill upon patient [...] Weight Start Date: 08/17/22 Status: Ordered Pen Chicago, 31 G x 8 mm BD Ultra Fine III See Instructions, # 300 each, Refills 6, Tot. Refills 6, Maintenance, use as directed for Type 2 Diabetes Mellitus for 5 injections per day E11.9, 12/09/21 9:52:00 EDT, Supply, 175.3, cm, 12/06/21 7:36:00 EDT, Height, 95.3, kg, 12/06/21 7:36:00 EDT... Start Date: 12/09/21 Stop Date: 08/31/23 Status: Ordered Pen [place], 32 G x 4 mm BD Ultra [...] 09/01/22 13:19:00 EDT, Route to Pharmacy Electronically, [facility]/pharmacy #[id number], Partial fill upon patient request if the [...] Route to Pharmacy Electronically, [facility] ([facility] ), 175, cm, 05/12/22 11:49:00 [...] present Confirmed 06/21/05 Active BPH - [facility] Confirmed 03/14/21 Active BMI 33.0-33.9,adult Confirmed Active Chronic kidney disease stage 3 Confirmed 05/17/11 Active CAD; s/p CABG 1997, [place] 2006 w/stent; heart transplant 04/30 Confirmed Active DVT, lower extremity Confirmed Active Diabetes mellitus with PVD; stents; [facility] Confirmed Active Diabetes mellitus with cataract [...] pain Confirmed 06/15/15 Active Microscopic hematuria; [facility] Confirmed Active Neck pain [...] Confirmed 06/21/05 Active Tremor - Neurology at [facility] Confirmed 02/07/18 Active Type 2 DM with renal manifestations; [facility] Confirmed 05/04/16 Active 1EF 20-25% prior to transplant Social History Social History Type Response Smoking Status Former smoker, quit more than 30 days ago entered on: 06/01/21 Sex Patient Care team information Care Team Personnel Name: Siri Franklin Position: [facility] RN Member Role: Primary Care Nurse Name: Nenita Song Position: [facility] RN Supv Member Role: Primary Care Nurse Name: Najma Michael RN Position: [facility] RN Member Role: Primary Care Nurse Name: Mallory Masterson NP Position: Reference Physician Member Role: Primary Care Nurse Address: Address: [address] [place] [address]- [place] Name: Scarlet Rosenthal RN Position: [facility] SN RN Member Role: Primary Care Nurse Name: Dung Chen MD Position: [facility] Physician - Primary Care Member Role: PCP Address: Address: [address] [address]- Name: Heydi Oviedo RN Position: [facility] Hospital Package Sealer Member Role: Primary Care Nurse Name: Sandra Cat Position: [facility] Outreach Member Role: Lifetime Consulting Physician Name: Nicki Garcia RN Position: [facility] RN Member Role: Primary Care Nurse Name: Luis Peters MD Position: [facility] Renal MD Member Role: Lifetime Consulting Physician Address: Address: [address] [facility] [address] [facility] [place] [address]- [place] Name: Zulma Martinez MD Position: [facility] Cardiology MD Member Role: Lifetime Consulting Physician Address: Address: [address] [place] [address] [place] [address]- [place] Name: Evelyn Jean-Baptiste RN Position: [facility] RN Member Role: Primary Care Nurse Name: Hilda Mcdonald RN Position: [facility] RN Member Role: Primary Care Nurse Care Team Related Persons Name: LUCIA BATEMAN Address: [place] [id number]
--- OUTSIDE RECORDS SUMMARY | 2023-05-15 08:55 | XMS_ITS | Continuity of Care Document ---
Author Name Unknown Organization [facility] Address [address] [place] [address]- Care Team Providers Care Refinery Operator Helper Name Role Phone Dung Chen MD Primary Care Physician Encounter [facility] [place] Date(s): 06/14/22 - 07/14/22 [facility] [address] [place], [place] [address] Allergies, Adverse Reactions, Alerts Substance Reaction Severity Status lisinopril Active Immunizations Given and Recorded Vaccine Date Status Refusal Reason SARS-CoV-2 mRNA (stzbvqb-rsav-mfzsh) vax 07/18/21 Recorded SARS-CoV-2 (COVID-19) mRNA BNT-162b2 [...] he received this seasons flu vaccine at [place]. 3Admin Note: Patient states he received pneumovax in 2004 at [place]. Medications amLODIPine 5 mg oral tablet 5 mg, 1, tablet, By Mouth, Daily, # 90 tablet, Refills 1, Tot. Refills 1, Maintenance, 05/12/22 11:54:00 EST, Route to Pharmacy Electronically, [facility] ([facility] ), Partial fill upon patient request if the prescription is for a... Start Date: 05/12/22 Status: Ordered aspirin 81 mg oral delayed release tablet 81 mg, 1, tablet, By Mouth, Daily, # 30 tablet, Refills 0, Tot. Refills 0, Maintenance, 06/08/21 11:45:00 EST, Route to Pharmacy Electronically, [facility]/pharmacy #[id number], Partial fill upon patient [...] Refills, Maintenance, 04/12/22 19:33:00 EST, Capsule, [facility]/pharmacy #[id number], Partial fill upon patient [...] 02/03/22 9:07:00 EDT, Route to Pharmacy Electronically, [facility] ([facility]), 175.3, cm, 01/03/22 13:47:00 EDT, [...] Maintenance, 05/24/22 12:19:00 EST, [facility] ([facility] ), Partial fill upon patient [...] Weight Start Date: 04/03/22 Status: Ordered Pen Howard, 31 G x 8 mm BD Ultra Fine III See Instructions, # 300 each, Refills 6, Tot. Refills 6, Maintenance, use as directed for Type 2 Diabetes Mellitus for 5 injections per day E11.9, 12/09/21 9:52:00 EDT, Supply, 175.3, cm, 12/06/21 7:36:00 EDT, Height, 95.3, kg, 12/06/21 7:36:00 EDT... Start Date: 12/09/21 Stop Date: 08/31/23 Status: Ordered Pen Howard, 32 G x 4 mm BD Ultra [...] 05/12/22 11:54:00 EST, Route to Pharmacy Electronically, [facility] ([facility] ), 175, cm, 05/12/22 11:49:00 EST, H... Start Date: 05/12/22 Status: Ordered Vitamin D3 50,000 intl units oral capsule 1 capsule = 1,250 mcg, By Mouth, Every week, # 8 capsule, 0 Refills, Maintenance, 06/08/22 12:19:00EST, Capsule, [facility]/pharmacy #[id number], Partial fill upon patient request if the prescription is for a schedule II opioid drug., 176, cm, 06/08/22 12:04:00 E... Start Date: 06/08/22 Stop Date: 08/03/22 Status: Ordered Problem List Condition Confirmation Course Effective Dates Status Health Status Informant AICD (automatic cardioverter/defibrillato r) present Confirmed 06/21/05 Active BPH - [facility] Confirmed 03/14/21 Active Chronic kidney disease stage 3 Confirmed 05/17/11 Active CAD; s/p CABG 1997, [place] 2006 w/stent; heart transplant 04/30 Confirmed Active Diabetes mellitus with PVD; stents; [facility] Confirmed Active Diabetes mellitus with cataract [...] back pain Confirmed 06/15/15 Active Microscopic hematuria; [facility] Confirmed Active Neck pain [...] Confirmed 06/21/05 Active Tremor - Neurology at [facility] Confirmed 02/07/18 Active Type 2 DM with renal manifestations; [facility] Confirmed 05/04/16 Active 1EF 20-25% prior to transplant Social History Social History Type Response Smoking Status Former smoker, quit more than 30 days ago entered on: 06/01/21 Sex Patient Care team information Care Team Personnel Name: Nenita Song Position: [facility] RN Supv Member Role: Primary Care Nurse Name: Najma Michael RN Position: [facility] RN Member Role: Primary Care Nurse Name: Mallory Masterson NP Position: Reference Physician Member Role: Primary Care Nurse Address: Address: [address] [place] [id number] Name: Scarlet Rosenthal RN Position: [facility] RN Member Role: Primary Care Nurse Name: Dung Chen MD Position: [facility] Primary Care Physician Member Role: PCP Address: Address: [address] [facility] [place] [address]- [place] Name: Ivelisse WARREN, Heydi Ontiveros Position: [facility] Hospital Tennis Coach Member Role: Primary Care Nurse Name: Sandra Cat Position: [facility] Outreach Member Role: Lifetime Consulting Physician Name: Luis Peters MD Position: [facility] Renal MD Member Role: Lifetime Consulting Physician Address: Address: [address] [facility] [place] [address]- Name: Zulma Martinez MD Position: [facility] Cardiology MD Member Role: Lifetime Consulting Physician Address: Address: [address] [facility] [address] [place] [address]- [place] Name: Evelyn Jean-Baptiste RN Position: [facility] RN Member Role: Primary Care Nurse Name: Hilda Mcdonald RN Position: [facility] RN Member Role: Primary Care Nurse Care Team Related Persons Name: LUCIA BATEMAN Address: [address] [place] [address]
--- OUTSIDE RECORDS SUMMARY | 2023-05-15 08:55 | XMS_ITS | Continuity of Care Document ---
Author Name Unknown Organization [facility] Address [address] [place] [id number]- Care Team Providers Care Gas Appliance Repairer Name Role Phone Dung Chen MD Primary Care Physician [phone] Encounter [facility] Date(s): 02/17/22 - 03/19/22 [facility] Diabetes [address] [place] [address] [[email or web address]] Allergies, Adverse Reactions, Alerts Substance Reaction Severity Status lisinopril Active Immunizations Given and Recorded Vaccine Date Status Refusal Reason SARS-CoV-2 mRNA ([id number]-[id number]) vax 07/18/21 Recorded SARS-CoV-2 (COVID-19) mRNA BNT-162b2 [...] he received this seasons flu vaccine at [place]. 3Admin Note: Patient states he received pneumovax in 2004 at [place]. Medications aspirin 81 mg oral delayed release tablet 81 mg, 1, tablet, By Mouth, Daily, # 30 tablet, Refills 0, Tot. Refills 0, Maintenance, 06/08/21 11:45:00 EST, Route to Pharmacy Electronically, [facility]/pharmacy #[id number], Partial fill upon patient request if the [...] 02/03/22 9:07:00 EDT, Route to Pharmacy Electronically, [facility] ([facility]), 175.3, cm, 01/03/22 13:47:00 EDT, Height, 95.3, kg, 12/06/21 7:36:00 ED... Start Date: 02/03/22 Status: Ordered HumaLOG Cartridge 100 units/mL injectable solution See Instructions, Insert cartridge into Inpen device, inject 16 units subq 3x a day with meals, Maxdaily dose 48 units, E11.65, # 30 mL, 6 Refills, Maintenance, 08/03/21 10:25:00 EDT, [facility], 175, cm, 07/26/21 8:27:00 EDT, [...] 11/11/21 Stop Date: 08/08/22 Status: Ordered Pen [place], 31 G x 8 mm BD Ultra Fine III See Instructions, # 300 each, Refills 6, Tot. Refills 6, Maintenance, use as directed for Type 2 Diabetes Mellitus for 5 injections per day E11.9, 12/09/21 9:52:00 EDT, Supply, 175.3, cm, 12/06/21 7:36:00 EDT, Height, 95.3, kg, 12/06/21 7:36:00 EDT... Start Date: 12/09/21 Stop Date: 08/31/23 Status: Ordered Pen [place], 32 G x 4 mm BD [...] 09/27/21 11:24:00 EDT, Route to Pharmacy Electronically, [facility]/pharmacy #[id number], 175.3,cm, 09/27/21 10:36:00 [...] r) present Confirmed 06/21/05 Active BPH - [facility] Confirmed 03/14/21 Active Chronic kidney disease stage 3 Confirmed 05/17/11 Active CAD; s/p CABG 1997, [place] 2006 w/stent; heart transplant 04/30 Confirmed Active Diabetes mellitus Confirmed Active Diabetes mellitus with PVD; stents; [facility] Confirmed Active Diabetes mellitus with cataract [...] back pain Confirmed 06/15/15 Active Microscopic hematuria; [facility] Confirmed Active Neck pain [...] Confirmed 06/21/05 Active Tremor - Neurology at [facility] Confirmed 02/07/18 Active Type 2 DM with renal manifestations; [facility] Confirmed 05/04/16 Active 1EF 20-25% prior to transplant Social History Social History Type Response Smoking Status Former smoker, quit more than 30 days ago entered on: 06/01/21 Sex Patient Care team information Care Team Personnel Name: Najma Michael RN Position: [facility] RN Member Role: Primary Care Nurse Name: Mallory Masterson NP Position: [facility] PCO Associate Professional Member Role: Primary Care Nurse Name: Dung Chen MD Position: [facility] Primary Care Physician Member Role: PCP Address: Address: [address] [place] [id number]- Name: Ivelisse WARREN, Heydi Ontiveros Position: [facility] Hospital Slitter Service And Setter Member Role: Primary Care Nurse Name: Sandra Cat Position: [facility] Outreach Member Role: Lifetime Consulting Physician Name: Belinda Stevenson RN Position: [facility] RN Member Role: Primary Care Nurse Name: Luis Peters MD Position: [facility] Renal MD Member Role: Lifetime Consulting Physician Address: Address: [address] [facility] [facility] [address] [facility] [place] [address]- Name: Zulma Martinez MD Position: [facility] Cardiology MD Member Role: Lifetime Consulting Physician Address: Address: [address] [place] [address]- [place] Name: Hilda Mcdonald RN Position: [facility] RN Member Role: Primary Care Nurse Care Team Related Persons Name: LUCIA BATEMAN Address: home [address] [place] [address]
--- OUTSIDE RECORDS SUMMARY | 2023-05-15 08:55 | XMS_ITS | Continuity of Care Document ---
Author Name Unknown Organization [facility] Address [address] [place] [address]- Care Team Providers Care Isotope Technician Name Role Phone Dung Chen MD Primary Care Physician [phone] Encounter [facility] ACCT R [id number] Date(s): 07/04/22 - 08/03/22 [facility] [address] [place], [place] [address] Attending Physician: AdmScott simmons Admitting Physician: Admtr, Ar8 Referring Physician: Admtr, Ar8 Allergies, Adverse Reactions, Alerts Substance Reaction Severity Status lisinopril Active Immunizations Given and Recorded Vaccine Date Status Refusal Reason SARS-CoV-2 mRNA (aluqxby-tbfd-unioh) vax 07/18/21 Recorded SARS-CoV-2 (COVID-19) mRNA BNT-162b2 [...] he received this seasons flu vaccine at [place]. 3Admin Note: Patient states he received pneumovax in 2004 at [place]. Medications amLODIPine 5 mg oral tablet 5 mg, 1, tablet, By Mouth, Daily, # 90 tablet, Refills 1, Tot. Refills 1, Maintenance, 05/12/22 11:54:00 EST, Route to Pharmacy Electronically, [facility] ([facility] ), Partial fill upon patient request if the prescription is for a... Start Date: 05/12/22 Status: Ordered aspirin 81 mg oral delayed release tablet 81 mg, 1, tablet, By Mouth, Daily, # 30 tablet, Refills 0, Tot. Refills 0, Maintenance, 06/08/21 11:45:00 EST, Route to Pharmacy Electronically, [facility]/pharmacy #[id number], Partial fill upon [...] 02/03/22 9:07:00 EDT, Route to Pharmacy Electronically, [facility] ([facility]), 175.3, cm, 01/03/22 13:47:00 EDT, [...] Maintenance, 05/24/22 12:19:00 EST, [facility] ([facility] ), Partial fill upon patient [...] Weight Start Date: 04/03/22 Status: Ordered Pen [place], 31 G x 8 mm BD Ultra Fine III See Instructions, # 300 each, Refills 6, Tot. Refills 6, Maintenance, use as directed for Type 2 Diabetes Mellitus for 5 injections per day E11.9, 12/09/21 9:52:00 EDT, Supply, 175.3, cm, 12/06/21 7:36:00 EDT, Height, 95.3, kg, 12/06/21 7:36:00 EDT... Start Date: 12/09/21 Stop Date: 08/31/23 Status: Ordered Pen [place], 32 G x 4 mm BD Ultra [...] 05/12/22 11:54:00 EST, Route to Pharmacy Electronically, [facility] ([facility] ), 175, cm, 05/12/22 11:49:00 EST, H... Start Date: 05/12/22 Status: Ordered Vitamin D3 50,000 intl units oral capsule 1 capsule = 1,250 mcg, By Mouth, Every week, # 8 capsule, 0 Refills, Maintenance, 06/08/22 12:19:00EST, Capsule, [facility]/pharmacy #[id number], Partial fill upon patient request if the prescription is for a schedule II opioid drug., 176, cm, 06/08/22 12:04:00 E... Start Date: 06/08/22 Stop Date: 08/03/22 Status: Ordered Problem List Condition Confirmation Course Effective Dates Status Health Status Informant Unsteady gait Confirmed Active AICD (automatic cardioverter/defibrillato r) present Confirmed 06/21/05 Active BPH - [facility] Confirmed 03/14/21 Active Chronic kidney disease stage 3 Confirmed 05/17/11 Active CAD; s/p CABG 1997, [place] 2006 w/stent; heart transplant 04/30 Confirmed Active Diabetes mellitus with PVD; stents; [facility] Confirmed Active Diabetes mellitus with cataract [...] back pain Confirmed 06/15/15 Active Microscopic hematuria; [facility] Confirmed Active Neck [...] Confirmed 06/21/05 Active Tremor - Neurology at [facility] Confirmed 02/07/18 Active Type 2 DM with renal manifestations; [facility] Confirmed 05/04/16 Active 1EF 20-25% prior to transplant Social History Social History Type Response Smoking Status Former smoker, quit more than 30 days ago entered on: 06/01/21 Sex Patient Care team information Care Team Personnel Name: Nenita Song Position: [facility] Supprasanna Member Role: Primary Care Nurse Name: Najma Michael RN Position: [facility] RN Member Role: Primary Care Nurse Name: Mallory Masterson NP Position: Reference Physician Member Role: Primary Care Nurse Address: Address: [address] [place] [address]- [place] Name: Scarlet Rosenthal RN Position: [facility] SN RN Member Role: Primary Care Nurse Name: Dung Chen MD Position: [facility] Primary Care Physician Member Role: PCP Address: Address: [address], [place] [address]- [place] Name: Heydi Oviedo RN Position: [facility] Hospital Municipal Firefighter Member Role: Primary Care Nurse Name: Sandra Cat Position: [facility] Outreach Member Role: Lifetime Consulting Physician Name: Luis Peters MD Position: [facility] Renal MD Member Role: Lifetime Consulting Physician Address: Address: [address] [facility] [place] [address]- [place] Name: Zulma Martinez MD Position: [facility] Cardiology MD Member Role: Lifetime Consulting Physician Address: Address: [address] [facility] [address] [place] [address]- [place] Name: Evelyn Jean-Baptiste RN Position: [facility] RN Member Role: Primary Care Nurse Name: Hilda Mcdonald RN Position: [facility] RN Member Role: Primary Care Nurse Care Team Related Persons Name: LUCIA BATEMAN Address: home [address] [place] [address]
--- OUTSIDE RECORDS SUMMARY | 2023-05-15 08:55 | XMS_ITS | Continuity of Care Document ---
Author Name Unknown Organization [facility] Address [address] [place] [address]- Care Team Providers Care Fiscal Services Director Name Role Phone Dung Chen MD Primary Care Physician [phone] Encounter [facility] Date(s): 03/02/23 - 04/01/23 [facility] [address] [place], [place] [address] Allergies, Adverse Reactions, Alerts Substance Reaction [...] virus vaccine, inactivated 03/07/06 Quinn rded SARS-CoV-2(COVID-19)mRNA-LNP vac([id number]) 02/06/23 Recorded tetanus/diphtheria/pertussis, acel(Tdap) 2 12/08/22 Given tetanus/diphtheria/pertussis, acel(Tdap) 03/27/12 Recorded pneumococcal 20-valent conjugate vaccine 3 12/08/22 Given [id number] 12y+ bivalent booster vax 04/15/22 Recorded SARS-CoV-2 mRNA (vzfastx-qxin-ajfgc) vax 07/18/21 Recorded SARS-CoV-2 (COVID-19) mRNA BNT-162b2 [...] 2795CA Exp. #) SEP 23 2Result Comment: [facility] [id number] 3Result Comment: [facility] [id number] 4Admin Note: Pt states he received this seasons flu vaccine at [place]. 5Admin Note: Patient states he received pneumovax in 2004 at [place]. Medications Albuterol 0.083% inhalation roger Refills 0, Maintenance, 03/20/23 8:54:00 EST Start Date: 03/20/23 Status: Ordered amLODIPine 10 mg oral tablet 10 mg, 1, tablet, By Mouth, Daily, # 90 tablet, Refills 3, Tot. Refills 3, Maintenance, 11/03/22 11:30:00 EDT, Route to Pharmacy Electronically, [facility] ([facility] ), Partial fill upon patient [...] 06/08/21 11:45:00 EST, Route to Pharmacy Electronically, [facility]/pharmacy [...] 3 Refills, Maintenance, 01/19/23 18:26:00 EDT, [facility]al [place],[facility], Partial fill upon patient request [...] 12/08/22 11:17:00 EDT, Solution, [facility] ([facility]), Partial fillupon patient request if [...] Confirmed Active Diabetes mellitus with PVD; stents; [facility] Confirmed Active Diabetes mellitus [...] B12 Confirmed Active Tremor - Neurology at [facility] Confirmed 02/07/18 Active Type 2 DM with renal manifestations; [facility] Confirmed 05/04/16 Active Vitamin D deficiency Confirmed Active 1EF 20-25% prior to transplant Social History Social History Type Response Smoking Status Former smoker, quit more than 30 days ago entered on: 10/24/22 Sex Patient Care team information Care Team Personnel Name: Nenita Song Position: [facility] RN Supv Member Role: Primary Care Nurse Name: Sherice Mariscal RN Position: [facility] RN Member Role: Primary Care Nurse Name: Najma Michael RN Position: [facility] RN Member Role: Primary Care Nurse Name: Mallory Masterson NP Position: Reference Physician Member Role: Primary Care Nurse Address: Address: [address] [place] [address]- [place] Name: Scarlet Rosenthal RN Position: [facility] SN RN Member Role: Primary Care Nurse Name: Dung Chen MD Position: [facility] Physician - Primary Care Member Role: PCP Address: Address: [address] [place] [address]- [place] Name: Heydi Oviedo RN Position: [facility] Hospital Plastic Bubble Packer Member Role: Primary Care Nurse Name: Mercy Veliz RN Position: [facility] RN Member Role: Primary Care Nurse Name: Sandra Cat Position: [facility] Outreach Member Role: Lifetime Consulting Physician Name: Nicki Garcia RN Position: [facility] RN Member Role: Primary Care Nurse Name: Vane Davalos RN Position: [facility] RN Member Role: Primary Care Nurse Name: Belinda Stevenson RN Position: [facility] SN RN Member Role: Primary Care Nurse Name: Luis Peters MD Position: [facility] Renal MD Member Role: Lifetime Consulting Physician Address: Address: [address] [facility] [address] [facility] [place] [address]- Name: Zulma Martinez MD Position: [facility] Cardiology MD Member Role: Lifetime Consulting Physician Address: Address: [address] [place] [address]- Name: Evelyn Jean-Baptiste RN Position: [facility] RN Member Role: Primary Care Nurse Name: Hilda Mcdonald RN Position: [facility] RN Member Role: Primary Care Nurse Care Team Related Persons Name: LUCIA ABTEMAN Address: home [address] [place] [address]
--- OUTSIDE RECORDS SUMMARY | 2023-05-15 08:55 | XMS_ITS | Continuity of Care Document ---
Author Name Unknown Organization [facility] Address [address] [place] [address]- Care Team Providers Care Parking Worker Name Role Phone Dung Chen MD Primary Care Physician Encounter [facility] Date(s): 11/15/21 - 12/15/21 [facility] [address] [place] [address]- Attending Physician: Admtr, Scott Admitting Physician: Admtr, Ar8 Referring Physician: Admtr, Ar8 Allergies, Adverse Reactions, Alerts Substance Reaction Severity Status lisinopril Active Immunizations Given and Recorded Vaccine Date Status Refusal Reason SARS-CoV-2 mRNA ([id number]-ebedc) vax 07/18/21 Recorded SARS-CoV-2 (COVID-19) mRNA BNT-162b2 [...] he received this seasons flu vaccine at [place]. 3Admin Note: Patient states he received pneumovax in 2004 at [place]. Medications aspirin 81 mg oral delayed release tablet 81 mg, 1, tablet, By Mouth, Daily, # 30 tablet, Refills 0, Tot. Refills 0, Maintenance, 06/08/21 11:45:00 EST, Route to Pharmacy Electronically, [facility]/pharmacy #[id number], Partial fill upon patient request if the [...] capsule, Refills 0, Route to Pharmacy Electronically, [facility], 175.3, cm, 09/27/21 10:36:00 EDT, Height, 86.2, kg, 08/26/21 12:59:00 EDT, Dry Weight Start Date: 11/10/21 Status: Ordered HumaLOG Cartridge 100 units/mL injectable solution See Instructions, Insert cartridge into Inpen device, inject 16 units subq 3x a day with meals, Maxdaily dose 48 units, E11.65, # 30 mL, 6 Refills, Maintenance, 08/03/21 10:25:00 EDT, [facility], 175, cm, 07/26/21 8:27:00 EDT, [...] 11/11/21 Stop Date: 08/08/22 Status: Ordered Pen [place], 31 G x 8 mm BD Ultra Fine III See Instructions, # 300 each, Refills 6, Tot. Refills 6, Maintenance, use as directed for Type 2 Diabetes Mellitus for 5 injections per day E11.9, 12/09/21 9:52:00 EDT, Supply, 175.3, cm, 12/06/21 7:36:00 EDT, Height, 95.3, kg, 12/06/21 7:36:00 EDT... Start Date: 12/09/21 Stop Date: 08/31/23 Status: Ordered Pen [place], 32 G x 4 mm BD Ultra [...] 09/27/21 11:24:00 EDT, Route to Pharmacy Electronically, [facility]/pharmacy #[id number], 175.3,cm, 09/27/21 10:36:00 EDT, Height, [...] (automatic cardioverter/defibrillator) present(Confirmed) 06/21/05 Active BPH - [facility](Confirmed) 03/14/21 Active Chronic kidney disease stage 3(Confirmed) 05/17/11 Active CAD; s/p CABG 1997, [place] 2006 w/stent; heart transplant 04/30(Confirmed) Active Diabetes [...] hypercholesterolemia(Confirmed) 06/21/05 Active Tremor - Neurology at [facility](Confirmed) 02/07/18 Active Type 2 DM with renal manifes tations; [facility](Confirmed) 05/04/16 Active 1EF 20-25% prior to transplant Social History Social History Type Response Smoking Status Former smoker, quit more than 30 days ago entered on: 06/01/21 Sex Care Team Personnel Name: Dung Chen MD Address: [address] [place], [place] [address]
--- OUTSIDE RECORDS SUMMARY | 2023-05-15 08:55 | XMS_ITS | Continuity of Care Document ---
Author Name Unknown Organization [facility] Address [address] [place] [address]- Care Team Providers Care Market Development Director Name Role Phone Dung Chen MD Primary Care Physician Encounter [facility] ACCT R [id number] Date(s): 11/30/22 - 02/17/23 [facility] [address] [place] [address] Attending Physician: Bonilla Miguel NP Admitting Physician: Bonilla Miguel NP Referring Physician: Sandi CALLOWAY, Sheldon Rowland Allergies, Adverse Reactions, Alerts Substance Reaction Severity Status lisinopril Active Immunizations Given and Recorded Vaccine Date Status Refusal Reason tetanus/diphtheria/pertussis, acel(Tdap) 1 12/08/22 Given tetanus/diphtheria/pertussis, acel(Tdap) 03/27/12 Recorded pneumococcal 20-valent conjugate vaccine 2 12/08/22 Given [id number] 12y+ bivalent booster vax 04/15/22 Recorded influenza [...] vaccine, inactivated 03/07/06 Quinn rded SARS-CoV-2 mRNA ([id number]) vax 07/18/21 Recorded SARS-CoV-2 (COVID-19) mRNA BNT-162b2 [...] Vacc (oldterm) 5 07/14/04 Given 1Result Comment: [facility] [id number] 2Result Comment: [facility] [id number] 3Result Comment: Lot # [id number] Exp. #) SEP 23 4Admin Note: Pt states he received this seasons flu vaccine at [place]. 5Admin Note: Patient states he received pneumovax in 2004 at [place]. Medications amLODIPine 10 mg oral tablet 10 mg, 1, tablet, By Mouth, Daily, # 90 tablet, Refills 3, Tot. Refills 3, Maintenance, 11/03/22 11:30:00 EDT, Route to Pharmacy Electronically, [facility] ([facility] ), Partial fill upon patient request if the prescription is for... Start Date: 11/03/22 Status: Ordered aspirin 81 mg oral delayed release tablet 81 mg, 1, tablet, By Mouth, Daily, # 30 tablet, Refills 0, Tot. Refills 0, Maintenance, 06/08/21 11:45:00 EST, Route to Pharmacy Electronically, [facility]/pharmacy #[id number], Partial fill upon patient request if the [...] 3 Refills, Maintenance, 01/19/23 18:26:00 EDT, [facility]al [place],[facility], Partial fill upon patient request if the prescription is for a schedule II opioid drug., 1 sprays Nares, Both Daily, 173, cm, 100... Start Date: 01/19/23 Status: Ordered Freestyle Nona 2 [place] Freestyle Nona 2 [place], See Instructions, # 1 each, Refills 0, [...] mL, 3 Refills, Maintenance, 08/23/22 12:58:00 EDT, [facility] ([facility]), 176, cm... Start Date: 08/23/22 Status: Ordered insulin degludec (concentrated) 200 units/mL subcutaneous solution See Instructions, 30 units in the AM and 30 units in the PM 30 days supply, # 75 mL, 3 Refills, Maintenance, 10/15/22 10:03:00 EDT, [facility] 3, Partial fill upon patient request [...] Weight Start Date: 08/17/22 Status: Ordered Pen [place], 31 G x 8 mm BD Ultra [...] Route to Pharmacy Electronically, [facility] ([facility]), 173, cm, 10/12/22 19:31:00 EDT, Height, 106.... Start Date: 10/12/22 Status: Ordered Trulicity Pen 0.75 mg/0.5 mL subcutaneous solution 0.5 mL = 0.75 mg, Subcutaneous Injection, Every week, rotate injection sites, # 6 mL, 0 Refills, Maintenance, 12/08/22 11:17:00 EDT, Solution, [facility] ([facility]), Partial fillupon patient request if [...] 02/12/23 22:19:00 EDT, Route to Pharmacy Electronically, [facility]/pharmacy #[id number], Partial fill upon patient requestif the [...] r) present Confirmed 06/21/05 Active BPH - [facility] Confirmed 03/14/21 Active Chronic kidney disease stage 3 Confirmed 05/17/11 Active CAD; s/p CABG 1997, [place] 2006 w/stent; heart transplant 04/30 Confirmed Active DVT, lower extremity Confirmed Active Diabetes mellitus with PVD; stents; [facility] Confirmed Active Diabetes mellitus with [...] back pain Confirmed 06/15/15 Active Microscopic hematuria; [facility] Confirmed Active Neck pain Confirmed [...] comorbidity Confirmed Active Tremor - Neurology at [facility] Confirmed 02/07/18 Active Type 2 DM with renal manifestations; [facility] Confirmed 05/04/16 Active 1EF 20-25% prior to transplant Social History Social History Type Response Smoking Status Former smoker, quit more than 30 days ago entered on: 10/24/22 Sex Patient Care team information Care Team Personnel Name: Nenita Song Position: S RN Supv Member Role: Primary Care Nurse Name: Sherice Mariscal RN Position: S RN Member Role: Primary Care Nurse Name: Najma Michael RN Position: [facility] RN Member Role: Primary Care Nurse Name: Mallory Masterson NP Position: Reference Physician Member Role: Primary Care Nurse Address: Address: [address] [place] [address]- [place] Name: Scarlet Rosenthal RN Position: [facility] SN RN Member Role: Primary Care Nurse Name: Dung Chen MD Position: [facility] Physician - Primary Care Member Role: PCP Address: Address: [address] [place] [address]- [place] Name: Heydi Oviedo RN Position: [facility] Hospital Clinical Services Assistant Member Role: Primary Care Nurse Name: Sandra Cat Position: [facility] Outreach Member Role: Lifetime Consulting Physician Name: Nicki Garcia RN Position: [facility] RN Member Role: Primary Care Nurse Name: Vane Davalos RN Position: [facility] RN Member Role: Primary Care Nurse Name: Belinda Stveenson RN Position: [facility] SN RN Member Role: Primary Care Nurse Name: Luis Peters MD Position: [facility] Renal MD Member Role: Lifetime Consulting Physician Address: Address: [address] [facility] [address] [facility] [place] [address]- [place] Name: Zulma Martinez MD Position: [facility] Cardiology MD Member Role: Lifetime Consulting Physician Address: Address: [address] [address]- [place] Name: Evelyn Jean-Baptiste RN Position: [facility] RN Member Role: Primary Care Nurse Name: Hilda Mdconald RN Position: [facility] RN Member Role: Primary Care Nurse Care Team Related Persons Name: LUCIA BATEMAN Address: home [address] [place] [address]
--- OUTSIDE RECORDS SUMMARY | 2023-05-15 08:55 | XMS_ITS | Continuity of Care Document ---
Author Name Unknown Organization [facility] Address [address] [place] [address]- Care Team Providers Care Small Products I Assembler Name Role Phone Gustavo CALLOWAY, Dung Primary Care Physician En[facility] Date(s): 11/05/19 - 12/14/19 [facility] [address] [place] [address]- [facility] Attending Physician: Tavon VIDES, Alicia Whitley Admitting Physician: Tavon VIDES, Alicia Whitley Allergies, Adverse Reactions, Alerts Substance Reaction Severity [...] he received this seasons flu vaccine at [place]. 3Admin Note: Patient states he received pneumovax in 2004 at [place]. Medications aspirin 81 mg oral tablet 1 [...] Refills, Maintenance, 06/09/19 9:51:00 EST, EC Capsule, [facility]/pharmacy #[id number], 175, cm, 12/05/18 15:23:00 EDT, Height, [...] 05/27/19 16:08:00 EST, Route to Pharmacy Electronically, [facility]/pharmacy #[id number], 175, cm, 12/05/18 15:23:00 EDT, Height, [...]
--- OUTSIDE RECORDS SUMMARY | 2023-05-15 08:55 | XMS_ITS | Continuity of Care Document ---
Author Name Unknown Organization [facility] Address [address] [facility], [address] Floor, [address] [place] [address]- Care Team Providers Care Ecommerce Marketing Manager Name Role Phone Dung Chen MD Primary Care Physician Encounter [facility] Date(s): 07/06/20 - 08/05/20 [facility] [address], [address] Floor, [address] [place] [address]- Allergies, Adverse Reactions, Alerts Substance Reaction Severity [...] he received this seasons flu vaccine at [place]. 3Admin Note: Patient states he received pneumovax in 2004 at [place]. Medications aspirin 81 mg oral tablet 1 [...] Refills, Maintenance, 06/09/19 9:51:00 EST, EC Capsule, [facility]/pharmacy #[id number], 175, cm, 12/05/18 15:23:00 EDT, Height, [...] 05/19/20 10:59:00 EST, Route to Pharmacy Electronically, [facility]/pharmacy #[id number], Partial fill upon [...] EC Tablet Start Date: 04/07/17 Status: Ordered HealPayTouch Verio Test Strips See Instructions, # 300 [...] 01/28/20 14:36:00 EDT, Route to Pharmacy Electronically, [facility]/pharmacy #[id number], 176, cm, 01/06/20 19:56:00 EDT, Height, [...] 05/27/19 16:08:00 EST, Route to Pharmacy Electronically, [facility]/pharmacy #[id number], 175, cm, 12/05/18 15:23:00 EDT, Height, [...]
--- OUTSIDE RECORDS SUMMARY | 2023-05-15 08:55 | XMS_ITS | Continuity of Care Document ---
Author Name Unknown Organization [facility] Address [address] [place] [address]- Care Team Providers Care High Worker Name Role Phone Dung Chen MD Primary Care Physician Encounter [facility] Date(s): 10/08/20 - 02/05/21 [facility] [address] [place] [address] Attending Physician: Tavon VIDES, Alicia Whitley Admitting Physician: Alicia Montes De Oca NP Referring Physician: Alicia Montes De Oca NP Allergies, Adverse Reactions, Alerts Substance Reaction [...] he received this seasons flu vaccine at [place]. 3Admin Note: Patient states he received pneumovax in 2004 at [place]. Medications aspirin 81 mg oral tablet 1 tablet = 81 mg, By Mouth, Daily, # 30 tablet, 0 Refills, Maintenance, 04/07/17 12:54:17, Tablet Start Date: 04/07/17 Status: Ordered Ativan 1 mg oral tablet See Instructions, 1 tablet By Mouth 30 minutes before MRI. May repeat once at time of test., # 2 tablet, 0 Refills, Maintenance, 08/17/20 17:02:00 EDT, [id number], Partial fill upon patient request if the [...] Refills, Maintenance, 06/09/19 9:51:00 EST, EC Capsule, [facility]/pharmacy #[id number], 175, cm, 12/05/18 15:23:00 EDT, [...] 11/02/20 13:16:00 EDT, Route to Pharmacy Electronically, [facility], 176, cm, 08/17/20 16:06:00 EDT, Height, 94.72, kg, 10/09/19 14:08:00 EDT, Dry We... Start Date: 11/02/20 Status: Ordered Lantus Solostar Pen 100 units/mL subcutaneous solution = 70 units, Subcutaneous Injection, Daily, = 70 units, Subcutaneous Injectin, Daily. E11.65. 90 daysupply rotate injection sites, # 90 mL, 3 Refills, Maintenance, 09/25/20 10:26:00 EDT, Solution, [facility], , 176, cm... Start Date: [...] Compound Start Date: 10/15/18 Status: Ordered Pen [place], 31 G x 5 mm BD Ultra Fine III See Instructions, # 120 each, Refills 6, Tot. Refills 6, Maintenance, injects 4 times a day E11.65,08/24/20 9:11:00 EDT, fax [phone], Compound, 176, cm, 08/17/20 16:06:00 EDT, Height, 94.72, kg, 10/09/19 14:08:00 EDT, Dry Weight Start Date: 08/24/20 Status: Ordered Plavix 75 mg oral tablet 75 mg, 1, tablet, By Mouth, Daily, # 90 tablet, Refills 3, Tot. Refills 3, Maintenance, 01/28/20 14:36:00 EDT, Route to Pharmacy Electronically, [facility]/pharmacy #[id number], 176, cm, 01/06/20 19:56:00 EDT, [...] EST, Route to Pharmacy Electronically, [facility]/pharmacy #[id number], 175, cm, 12/05/18 15:23:00 EDT, [...]
--- OUTSIDE RECORDS SUMMARY | 2023-05-15 08:55 | XMS_ITS | Continuity of Care Document ---
Author Name Unknown Organization [facility] ter Address [address] [place] [address]- Care Team Providers Care Drag Seiner Name Role Phone Dung Chen MD Primary Care Physician Encounter [facility] Date(s): 06/22/21 - 06/23/[address] [address]- Encounter Diagnosis COVID-19(Final) - 06/22/21 Altered mental state(Final) - 06/22/21 Hypokalemia(Final) - 06/22/21 Discharge Disposition: A-D/C Home Attending Physician: Steffen Cerda MD Admitting Physician: Steffen Cerda MD Referring Physician: [...] he received this seasons flu vaccine at [place]. 3Admin Note: Patient states he received pneumovax in 2004 at [place]. Medications Acetaminophen IVPB 1,000 mg, Injection, IVPB, (Infuse over 15 minutes), 06/23/21 2:00:00 EST, Stop date 06/23/21 2:00:00 EST Start Date: 06/23/21 Stop Date: 06/23/21 Status: Completed aspirin 81 mg oral delayed release tablet 81 mg, 1, tablet, By Mouth, Daily, # 30 tablet, Refills 0, Tot. Refills 0, Maintenance, 06/08/21 11:45:00 EST, Route to Pharmacy Electronically, [facility]/pharmacy #[id number], Partial fill [...] Pharmacy Electronically, [facility]/pharmacy #[id number], Partial fill upon patient request if the prescription is for a schedule II opi... Start Date: 06/08/21 Status: Ordered gabapentin 300 mg oral capsule 600 mg, Capsule, By Mouth, 06/22/21 21:00:00 EST Start Date: 06/22/21 Stop Date: 06/22/21 Status: Completed gabapentin 600 mg oral tablet [...] 16:08:00 EST, Route to Pharmacy Electronically, [facility]/pharmacy #[id number], 175, cm, 12/05/18 15:23:00 [...] for Microbiology Reports Name Date Blood Culture 06/22/21 Blood Culture #2 06/22/21 Microbiology Reports TEST:Blood Culture, Second Order STATUS:Unauthenticated BODY SITE: SOURCE:Blood COLLECTED DATE/TIME:06/22/21 8:54 AM Blood Culture, Second Order SPECIMEN DESCRIPTION : BLOOD LEFTHAND SPECIAL REQUESTS : NONE CULTURE : NO GROWTH AFTER 24 HOURS REPORT STATUS : PRELIMINARY REPORT TEST:Blood Culture STATUS:Unauthenticated BODY SITE: SOURCE:Blood COLLECTED DATE/TIME:06/22/21 8:53 AM Blood Culture SPECIMEN DESCRIPTION : BLOOD RAC SPECIAL REQUESTS : NONE CULTURE : NO GROWTH AFTER 24 HOURS REPORT STATUS : PRELIMINARY REPORT Radiology Reports * Exam Date Time Procedure Performing Provider Status 06/22/21 9:04 AM Chest 2 Views Frontal and Lat Brandi Escudero; Kiley (Verified) Notes: (Chest 2 Views Frontal and Lat) Reason For Exam: Shortness of Breath, Fever;Other: RESULT: Chest 2 Views Frontal and Lat Examination: Chest performed on 06/22/2021. History: Shortness of breath. Fever. Findings: Frontal and lateral views of the chest are compared to a prior study dated 05/06/2021. Sternotomy wires are intact. The cardiac and mediastinal silhouettes are within normal limits. There is improvement in the left lower lobe airspace disease with residual demonstrated. The osseous andsoft tissue structures are unremarkable. Impression: Improvement in left lower lobe airspace disease, likely representing resolving pneumonia. Follow-upto complete radiographic resolution is recommended. WSN: [id number] Ordering Physician: Joseph Tolentino Dictated By: Sylvia Snell MD Dictated Date/Time: 06/22/21 9:08 am Reviewed By: Sylvia Snell MD Signed By: Sylvia Snell MD Signed Date/Time: 06/22/21 9:08 am Transcribed By: MAVIS Transcribed Date/Time: 06/22/21 9:08 am Vital Signs Most recent to oldest [Reference Range]: 1 2 3 Height 175 cm (06/23/21 2:36 AM) 175 cm (06/22/21 7:41 PM) 175 cm (06/22/21 6:35 PM) Oxygen Saturation [94-100 %] 97 % (06/23/21 2:36 AM) 97 % (06/22/21 7:41 PM) 18 % *L* (06/22/21 6:21 PM) Pulse Rate [55-90 bpm] 82 bpm (06/23/21 2:36 AM) 93 bpm *H* (06/22/21 7:41 PM) 103 bpm *H* (06/22/21 6:21 PM) Blood Pressure [90-138/55-84 mm Hg] 106/55mm Hg (06/23/21 2:36 AM) 110/57mm Hg (06/22/21 7:41 PM) 173/79mm Hg *H* (06/22/21 6:21 PM) Respiratory Rate [16-30 br/min] 18 br/min (06/23/21 4:55 AM) 20 br/min (06/23/21 2:36 AM) 18 br/min (06/22/21 10:49 PM) Temperature [96.8-100.4 DegF] 99.5 DegF (06/23/21 2:36 AM) 100.6 DegF *H* (06/22/21 8:56 PM) 101.2 DegF *H* (06/22/21 7:41 PM) Liters per Minute 0 L/min (06/22/21 8:25 AM) Mode of Delivery (Oxygen) Room air (06/23/21 2:36 AM) Room air (06/22/21 7:41 PM) Room air (06/22/21 2:47 PM) Blood pressure sites Arm, left (06/23/21 2:36 AM) Arm, left (06/22/21 7:41 PM) Arm, right (06/22/21 6:21 PM) Temperature Route Temporal (06/23/21 2:36 AM) Oral (06/22/21 7:41 PM) Oral (06/22/21 6:21 PM) Dry Weight 75 kg (06/22/21 8:17 AM) Dry Weight Obtained Via Patient/family s tated (06/22/21 8:17 AM) Social History Social History Type Response Smoking Status Former smoker, quit more than 30 days ago entered on: 06/01/21 Sex
--- OUTSIDE RECORDS SUMMARY | 2023-05-15 08:55 | XMS_ITS | Continuity of Care Document ---
Author Name Unknown Organization [facility] ter Address [address] [place] [address]- Care Team Providers Care Neurology Director Name Role Phone Dung Chen MD Primary Care Physician Encounter [facility] Date(s): 04/29/19 - 05/06/[address] [address]- [facility] Attending Physician: Not on Staff, Attending MD Allergies, Adverse Reactions, Alerts Substance Reaction [...] he received this seasons flu vaccine at [place]. 3Admin Note: Patient states he received pneumovax in 2004 at [place]. Medications aspirin 81 mg oral tablet 1 [...] 9:51:00 EST, 12/11/18 9:51:00 EDT, EC Capsule, [facility]/pharmacy #[id number] Start Date: 12/11/18 Stop Date: 06/09/19 [...] 11/28/18 16:08:11 EDT, Route to Pharmacy Electronically, [facility]/pharmacy #[id number] Start Date: 11/28/18 Stop Date: 05/27/19 [...]
--- OUTSIDE RECORDS SUMMARY | 2023-05-15 08:55 | XMS_ITS | Continuity of Care Document ---
Author Name Unknown Organization [facility] Address [address] [place] [address]- Care Team Providers Care Drafter Automotive Design Layout Name Role Phone Dung Chen MD Primary Care Physician Encounter [facility] Date(s): 04/03/22 - 05/03/22 [facility] [address] [place], [place] [address] Allergies, Adverse Reactions, Alerts Substance Reaction Severity Status lisinopril Active Immunizations Given and Recorded Vaccine Date Status Refusal Reason SARS-CoV-2 mRNA (zctipyb-lnby-faduj) vax 07/18/21 Recorded SARS-CoV-2 (COVID-19) mRNA BNT-162b2 [...] he received this seasons flu vaccine at [place]. 3Admin Note: Patient states he received pneumovax in 2004 at [place]. Medications amLODIPine 5 mg oral tablet 5 mg, 1, tablet, By Mouth, Daily, # 30 tablet, Refills 0, Tot. Refills 0, Maintenance, 05/03/22 10:03:00 EST, Route to Pharmacy Electronically, [facility]/pharmacy #[id number], Partial fill upon patient request if the prescription is for a schedule II opioid drug.... Start Date: 05/03/22 Status: Ordered aspirin 81 mg oral delayed release tablet 81 mg, 1, tablet, By Mouth, Daily, # 30 tablet, Refills 0, Tot. Refills 0, Maintenance, 06/08/21 11:45:00 EST, Route to Pharmacy Electronically, [facility]/pharmacy #[id number], Partial fill [...] Weight Start Date: 04/03/22 Status: Ordered Pen [place], 31 G x 8 mm BD Ultra Fine III See Instructions, # 300 each, Refills 6, Tot. Refills 6, Maintenance, use as directed for Type 2 Diabetes Mellitus for 5 injections per day E11.9, 12/09/21 9:52:00 EDT, Supply, 175.3, cm, 12/06/21 7:36:00 EDT, Height, 95.3, kg, 12/06/21 7:36:00 EDT... Start Date: 12/09/21 Stop Date: 08/31/23 Status: Ordered Pen [place], 32 G x 4 mm BD Ultra [...] r) present Confirmed 06/21/05 Active BPH - [facility] Confirmed 03/14/21 Active Chronic kidney disease stage 3 Confirmed 05/17/11 Active CAD; s/p CABG 1997, [place] 2006 w/stent; heart transplant 04/30 Confirmed Active Diabetes mellitus with PVD; stents; [facility] Confirmed Active Diabetes mellitus with cataract [...] back pain Confirmed 06/15/15 Active Microscopic hematuria; [facility] Confirmed Active Neck pain [...] Confirmed 06/21/05 Active Tremor - Neurology at [facility] Confirmed 02/07/18 Active Type 2 DM with renal manifestations; [facility] Confirmed 05/04/16 Active 1EF 20-25% prior to transplant Social History Social History Type Response Smoking Status Former smoker, quit more than 30 days ago entered on: 06/01/21 Sex Patient Care team information Care Team Personnel Name: Nenita Song Position: [facility] RN Supv Member Role: Primary Care Nurse Name: Najma Michael RN Position: S RN Member Role: Primary Care Nurse Name: Mallory Masterson NP Position: [facility] PCO Associate Professional Member Role: Primary Care Nurse Name: Scarlet Rosenthal RN Position: [facility] RN Member Role: Primary Care Nurse Name: Dung Chen MD Position: [facility] Primary Care Physician Member Role: PCP Address: Address: [address] [facility] [place] [address]- [place] Name: Heydi Oviedo RN Position: [facility] Hospital Food Beverage Manager Member Role: Primary Care Nurse Name: Sandra Cat Position: [facility] Outreach Member Role: Lifetime Consulting Physician Name: Belinda Stevenson RN Position: [facility] RN Member Role: Primary Care Nurse Name: Luis Peters MD Position: [facility] Renal MD Member Role: Lifetime Consulting Physician Address: Address: [address] [facility] [place] [address]- [place] Name: Zulma Martinez MD Position: [facility] Cardiology MD Member Role: Lifetime Consulting Physician Address: Address: [address] [facility] [address] [place] [address]- Name: Hilda Mcdonald RN Position: [facility] RN Member Role: Primary Care Nurse Care Team Related Persons Name: LUCIA BATEMAN Address: home [address] [place] [address]
--- OUTSIDE RECORDS SUMMARY | 2023-05-15 08:55 | XMS_ITS | Continuity of Care Document ---
Author Name Unknown Organization [facility] Address [address] [place] [address]- Care Team Providers Care Wheat Inspector Name Role Phone Dung Chen MD Primary Care Physician Encounter [facility] Date(s): 02/27/20 - 06/21/20 [facility] [address] [place] [address] Attending Physician: Margarito Ewing MD Admitting Physician: Margarito Ewing MD Referring Physician: Dung Chen MD Allergies, [...] he received this seasons flu vaccine at [place]. 3Admin Note: Patient states he received pneumovax in 2004 at [place]. Medications aspirin 81 mg oral tablet 1 [...] Refills, Maintenance, 06/09/19 9:51:00 EST, EC Capsule, [facility]/pharmacy #[id number], 175, cm, [...] 05/19/20 10:59:00 EST, Route to Pharmacy Electronically, [facility]/pharmacy #[id number], Partial fill upon patient [...] 01/28/20 14:36:00 EDT, Route to Pharmacy Electronically, [facility]/pharmacy #[id number], 176, cm, 01/06/20 19:56:00 EDT, [...] 05/27/19 16:08:00 EST, Route to Pharmacy Electronically, [facility]/pharmacy #[id number], 175, cm, [...]
--- OUTSIDE RECORDS SUMMARY | 2023-05-15 08:56 | XMS_ITS | Continuity of Care Document ---
Author Name Unknown Organization [facility] Address [address] [place] [address]- Care Team Providers Care Dyer And Washer Name Role Phone Dung Chen MD Primary Care Physician Encounter [facility] Date(s): 10/09/19 - 02/07/20 [facility] [address] [place] [address]- [facility] Attending Physician: Kaycee CALLOWAY, Ibitoro Referring Physician: [...] he received this seasons flu vaccine at [place]. 3Admin Note: Patient states he received pneumovax in 2004 at [place]. Medications aspirin 81 mg oral tablet 1 [...] 01/28/20 14:36:00 EDT, Route to Pharmacy Electronically, [facility]/pharmacy #[id number], 176, cm, 01/06/20 19:56:00 [...] Route to Pharmacy Electronically, [facility]/pharmacy #[id number], 175, cm, 12/05/18 [...]
--- OUTSIDE RECORDS SUMMARY | 2023-05-15 08:56 | XMS_ITS | Continuity of Care Document ---
Author Name Unknown Organization [facility] Address [address] [place] [address]- Care Team Providers Care Director Cloud Transformation Name Role Phone Dung Chen MD Primary Care Physician Encounter [facility] Date(s): 11/04/19 - 12/04/19 [facility] [address] [place] [id number]- [facility] Attending Physician: AdmScott simmons Admitting Physician: AdmtrScott Referring Physician: Admtr, [id number] [...] he received this seasons flu vaccine at [place]. 3Admin Note: Patient states he received pneumovax in 2004 at [place]. Medications aspirin 81 mg oral tablet 1 [...] Maintenance, 06/09/19 9:51:00 EST, EC Capsule, [facility]/pharmacy #[id number], 175, cm, 12/05/18 15:23:00 EDT, Height, [...] 16:08:00 EST, Route to Pharmacy Electronically, [facility]/pharmacy #[id number], 175, cm, 12/05/18 15:23:00 EDT, Height, [...]
--- OUTSIDE RECORDS SUMMARY | 2023-05-15 08:56 | XMS_ITS | Continuity of Care Document ---
Author Name Unknown Organization [facility] Address [address] [place] [address]- Care Team Providers Care Yarn Hauler Name Role Phone Dung Chen MD Primary Care Physician [place] [facility] [place]s): 06/23/22 - 07/23/22 [facility] [address] [place] [id number] Allergies, Adverse Reactions, Alerts Substance Reaction Severity Status lisinopril Active Immunizations Given and Recorded Vaccine Date Status Refusal Reason SARS-CoV-2 mRNA ([id number]-xnnth) vax 07/18/21 Recorded SARS-CoV-2 (COVID-19) mRNA BNT-162b2 [...] he received this seasons flu vaccine at [place]. 3Admin Note: Patient states he received pneumovax in 2004 at [place]. Medications amLODIPine 5 mg oral tablet 5 mg, 1, tablet, By Mouth, Daily, # 90 tablet, Refills 1, Tot. Refills 1, Maintenance, 05/12/22 11:54:00 EST, Route to Pharmacy Electronically, [facility] ([facility] ), Partial fill upon patient [...] 0 Refills, Maintenance, 04/12/22 19:33:00 EST, Capsule, [facility]/pharmacy #[id number], Partial [...] 02/03/22 9:07:00 EDT, Route to Pharmacy Electronically, [facility] ([facility]), 175.3, cm, 01/03/22 13:47:00 EDT, [...] Maintenance, 05/24/22 12:19:00 EST, [facility] ([facility] ), Partial fill upon patient [...] Weight Start Date: 04/03/22 Status: Ordered [place], 31 G x 8 mm BD Ultra Fine III See Instructions, # 300 each, Refills 6, Tot. Refills 6, Maintenance, use as directed for Type 2 Diabetes Mellitus for 5 injections per day E11.9, 12/09/21 9:52:00 EDT, Supply, 175.3, cm, 12/06/21 7:36:00 EDT, Height, 95.3, kg, 12/06/21 7:36:00 EDT... Start Date: 12/09/21 Stop Date: 08/31/23 Status: Ordered Pen [place], 32 G x 4 mm BD Ultra [...] Route to Pharmacy Electronically, [facility] ([facility] ), 175, cm, 05/12/22 11:49:00 [...] r) present Confirmed 06/21/05 Active BPH - [facility] Confirmed 03/14/21 Active Chronic kidney disease stage 3 Confirmed 05/17/11 Active CAD; s/p CABG 1997, [place] 2006 w/stent; heart transplant 04/30 Confirmed Active Diabetes mellitus with PVD; stents; [facility] Confirmed Active Diabetes mellitus with [...] back pain Confirmed 06/15/15 Active Microscopic hematuria; [facility] Confirmed Active Neck pain Confirmed [...] Confirmed 06/21/05 Active Tremor - Neurology at [facility] Confirmed 02/07/18 Active Type 2 DM with renal manifestations; [facility] Confirmed 05/04/16 Active 1EF 20-25% prior to transplant Social History Social History Type Response Smoking Status Former smoker, quit more than 30 days ago entered on: 06/01/21 Sex Patient Care team information Care Team Personnel Name: Nenita Song Position: [facility] RN Supv Member Role: Primary Care Nurse Name: Najma Michael RN Position: [facility] RN Member Role: Primary Care Nurse Name: Mallory Masterson NP Position: Reference Physician Member Role: Primary Care Nurse Address: Address: [address] [place] [address]- Name: Scarlet Rosenthal RN Position: [facility] RN Member Role: Primary Care Nurse Name: Dung Chen MD Position: [facility] Primary Care Physician Member Role: PCP Address: Address: [address] [facility] [place] [address]- [place] Name: Ivelisse WARREN, Heydi Ontiveros Position: [facility] Hospital Trial Consultant Member Role: Primary Care Nurse Name: Sandra Cat Position: [facility] Outreach Member Role: Lifetime Consulting Physician Name: Luis Peters MD Position: [facility] Renal MD Member Role: Lifetime Consulting Physician Address: Address: [address] [facility] [place] [address]- Name: Zulma Martinez MD Position: [facility] Cardiology MD Member Role: Lifetime Consulting Physician Address: Address: [address] [facility] [address] [place] [address]- Name: Evelyn Jean-Baptiste RN Position: [facility] RN Member Role: Primary Care Nurse Name: Hilda Mcdonald RN Position: [facility] RN Member Role: Primary Care Nurse Care Team Related Persons Name: LUCIA BATEMAN Address: home [address] [place] [address]
--- OUTSIDE RECORDS SUMMARY | 2023-05-15 08:56 | XMS_ITS | Continuity of Care Document ---
Author Name Unknown Organization [facility] Address [address], [address], [address] [place] [address]- Care Team Providers Care Substitute School Nurse Name Role Phone Dung Chen MD Primary Care Physician Encounter [facility] Date(s): 05/27/20 - 06/26/20 [facility] [address], [address], [address] [place] [id number] Allergies, Adverse Reactions, [...] he received this seasons flu vaccine at [place]. 3Admin Note: Patient states he received pneumovax in 2004 at [place]. Medications aspirin 81 mg oral tablet 1 [...] Refills, Maintenance, 06/09/19 9:51:00 EST, EC Capsule, [facility]/pharmacy #[id number], 175, cm, 12/05/18 [...] 05/19/20 10:59:00 EST, Route to Pharmacy Electronically, [facility]/pharmacy #[id number], Partial fill upon [...] EC Tablet Start Date: 04/07/17 Status: Ordered [employer] Verio Test Strips See Instructions, # 300 [...] 01/28/20 14:36:00 EDT, Route to Pharmacy Electronically, [facility]/pharmacy #[id number], 176, cm, 01/06/20 [...]
--- OUTSIDE RECORDS SUMMARY | 2023-05-15 08:56 | XMS_ITS | Continuity of Care Document ---
Author Name Unknown Organization [facility] ter Address [address] [place] [id number] Care Team Providers Care Propulsion Engineer Name Role Phone Dung Chen MD Primary Care Physician Encounter [facility] Date(s): 10/08/22 - 10/15/[address] [id number] Discharge Disposition: A-D/C Home Attending Physician: Verna Lion MD Admitting Physician: Elmira Gutierrez MD Referring Physician: Not on Staff, Referring MD Allergies, Adverse Reactions, Alerts Substance Reaction Severity Status lisinopril Active Immunizations Given and Recorded Vaccine Date Status Refusal Reason SARS-CoV-2 mRNA ([id number]) vax 07/18/21 Recorded SARS-CoV-2 (COVID-19) mRNA BNT-162b2 [...] he received this seasons flu vaccine at [facility]. 3Admin Note: Patient states he received pneumovax in 2004 at [facility]. Medications amLODIPine 10 mg oral tablet 10 mg, 1, tablet, By Mouth, Daily, # 30 tablet, Refills 0, Tot. Refills 0, Maintenance, 10/15/22 10:03:00 EDT, Route to Pharmacy Electronically, [facility], Partial fill upon patient request if the prescription is for a schedule II opioi... Start Date: 10/15/22 Stop Date: 11/14/22 Status: Ordered apixaban Starter Pack 5 mg oral tablet = 10 mg, By Mouth, 2 times a day, first dose on 10/15 at 2100, # 1 pack/packet, 0 Refills, Maintenance, 10/15/22 10:04:00 EDT, Tablet, [facility], Partial fill upon patient request if theprescription is for a schedule II opioid drug., 173... Start Date: 10/15/22 Status: Ordered aspirin 81 mg oral delayed release tablet 81 mg, 1, tablet, By Mouth, Daily, # 30 tablet, Refills 0, Tot. Refills 0, Maintenance, 06/08/21 11:45:00 EST, [id number], Partial fill upon patient request if the [...] 10/28/22 10:05:00 EDT, 10/15/22 10:05:00 EDT, Tablet, [facility], Partial fill upon patient request if [...] 0 Refills, Maintenance, 04/12/22 19:33:00 EST, Capsule, [facility]/pharmacy #[id number], Partial fill upon patient request [...] oral capsule 300 mg, Capsule, By Mouth, 10/15/22 9:00:00 EDT Start Date: 10/15/22 Stop Date: 10/15/22 Status: Completed gabapentin 300 mg oral capsule 1, capsule, By Mouth, 3 times a day, # 270 capsule, Refills 5, Tot. Refills 5, 02/03/22 9:07:00 EDT, Route to Pharmacy Electronically, [facility] ([facility]), 175.3, cm, 01/03/22 13:47:00 EDT, Height, 95.3, kg, 12/06/21 7:36:00 ED... Start Date: 02/03/22 Status: Ordered Humalog Cartridge 100 units/mL subcutaneous injection See Instructions, INSERT CARTRIDGE INTO INPEN DEVICE AND INJECT SUBCUTANEOUSLY 16 UNITS 3 TIMES DAILY WITH MEALS - MAX DAILY DOSE: 48 UNITS, # 45 mL, 3 Refills, Maintenance, 08/23/22 12:58:00 EDT, [facility] ([facility]), 176, cm... Start Date: 08/23/22 Status: Ordered insulin degludec (concentrated) 200 units/mL subcutaneous solution See Instructions, 20 units in the AM and 30 units in the PM 30 days supply, # 75 mL, 3 Refills, Maintenance, 10/15/22 10:03:00 EDT, [facility], Partial fill upon patient request if the prescription is for a schedule II opioid drug., 173... Start Date: 10/15/22 Status: Ordered mycophenolic acid 360 mg oral delayed release tablet 2 tablet = 720 mg, By Mouth, 2 times a day Start Date: 06/22/21 Status: Ordered oxyCODONE 5 mg oral tablet 5 mg, By Mouth, Every 6 hours, PRN, for 7 days, # 24 tablet, Refills 0, Tot. Refills 0, Acute 10/22/22 10:02:00 EDT, Pain , Severe, 10/15/22 10:02:00 EDT, Route to Pharmacy Electronically, [facility], Partial fill upon patient request if... Start Date: 10/15/22 Stop Date: 10/22/22 Status: Ordered pantoprazole 40 mg oral delayed release tablet 1 tablet, By Mouth, 2 times a day, # 180 tablet, 3 Refills, Maintenance, 08/17/22 7:40:00 EDT, 176,cm, 07/19/22 11:16:00 EDT, Height, 101.1, kg, 05/02/22 16:03:00 EST, Dry Weight Start Date: 08/17/22 Status: Ordered [place], 31 G x 8 mm BD Ultra Fine III See Instructions, # 300 each, Refills 6, Tot. Refills 6, Maintenance, use as directed for Type 2 Diabetes Mellitus for 5 injections per day E11.9, 12/09/21 9:52:00 EDT, Supply, 175.3, cm, 12/06/21 7:36:00 EDT, Height, 95.3, kg, 12/06/21 7:36:00 EDT... Start Date: 12/09/21 Stop Date: 08/31/23 Status: Ordered Pen [place], 32 G x 4 mm BD Ultra [...] 09/01/22 13:19:00 EDT, Route to Pharmacy Electronically, [facility]acy #[id number], Partial fill upon patient request [...] Route to Pharmacy Electronically, [facility] ([facility]), 173, cm, 10/12/22 19:31:00 EDT, Height, 106.... Start Date: 10/12/22 Status: Ordered Vitamin D3 50,000 intl units oral capsule 1 capsule = 1,250 mcg, By Mouth, Every week, # 8 capsule, 0 Refills, Maintenance, 06/08/22 12:19:00EST, Capsule, [facility]acy #[id number], Partial fill upon patient request if the prescription is for a schedule II opioid drug., 176, cm, 06/08/22 12:04:00 E... Start Date: 06/08/22 Stop Date: 08/03/22 Status: Ordered Problem List Condition Confirmation Course Effective Dates Status Health Status Informant Unsteady gait Confirmed Active AICD (automatic cardioverter/defibrillato r) present Confirmed 06/21/05 Active BPH - [facility] Confirmed 03/14/21 Active BMI 33.0-33.9,adult Confirmed Active Chronic kidney disease stage 3 Confirmed 1/31/12 Active CAD; s/p CABG 1997, [place] w/stent; heart transplant 04/30 Confirmed Active [...] back pain Confirmed 06/15/15 Active Microscopic hematuria; [facility] Confirmed Active Neck pain Confirmed [...] comorbidity Confirmed Active Tremor - Neurology at [facility] Confirmed 02/07/18 Active Type 2 DM with renal manifestations; [facility] Confirmed 05/04/16 Active 1EF 20-25% prior to transplant Results Orders for Microbiology Reports Name Date Anaerobic Culture (ANAEROBIC CULTURE) Fungal Culture, Nonrespiratory (FUNGAL C ULT,NON-RESPIRATORY) 10/11/22 Tissue Culture w/ Gram Smear (TISSUE/BIO PSY CULT.) 10/11/22 Blood Culture 10/08/22 Blood Culture #2 10/08/22 Microbiology Reports TEST:Anaerobic Culture STATUS:Auth (Verified) BODY SITE: SOURCE:TISSUE1 COLLECTED DATE/TIME:10/11/22 12:15 PM Anaerobic Culture SPECIMEN DESCRIPTION : TISSUE LEFT FOOT SPECIAL REQUESTS : NONE CULTURE : NO ANAEROBES ISOLATED REPORT STATUS : FINAL 10/13/2022 TEST:Tissue/Biopsy Culture STATUS:Modified/Amended/Corrected BODY SITE: SOURCE:TISSUE1 COLLECTED DATE/TIME:10/11/22 12:15 PM Tissue/Biopsy Culture SPECIMEN DESCRIPTION : TISSUE LEFT FOOT SPECIAL REQUESTS : NONE GRAM STAIN : 1+ WHITE BLOOD CELLS NO ORGANISMS SEEN CULTURE : 2+ STAPHYLOCOCCUS AUREUS, METHICILLIN RESISTANT. METHICILLIN RESISTANT STAPH AUREUS SHOULD BE CONSIDERED CLINICALLY RESISTANT TO ALL BETA-LACTAMS. Result reported to the [facility]. This isolate was identified using Maldi-TOF system These AST results were performed on the [employer] Pharmac[employer] ID and AST system REPORT STATUS : FINAL 10/14/2022 ORGANISM 2+ STAPHYLOCOCCUS AUREUS, METHICILLIN RESISTANT. METHICILLIN RESISTANT STAPH AUREUS SHOULD BE CONSIDERED CLINICALLY RESISTANT TO ALL BETA-LACTAMS. Result reported to the [facility]. This isolate was identified using Maldi-TOF system These AST results were performed on the [employer] Pharmac[employer] ID and AST system METHOD MIN. INHIB. CONC. (MCG/ML) CIPROFLOXACIN SUSCEPTIBLE CLINDAMYCIN RESISTANT ERYTHROMYCIN SUSCEPTIBLE INDUCIBLE CLINDAMYCI NEGATIVE LEVOFLOXACIN SUSCEPTIBLE LINEZOLID SUSCEPTIBLE OXACILLIN RESISTANT RIFAMPIN SUSCEPTIBLE RIFAMPIN RIFAMPIN SHOULD NOT BE USED ALONE FOR ANTIMICROBIAL RIFAMPIN THERAPY. TETRACYCLINE SUSCEPTIBLE TRIMETH/SULFAMETHOX SUSCEPTIBLE VANCOMYCIN SUSCEPTIBLE TEST:Fungal Culture, Non-Respiratory STATUS:Unauthenticated BODY SITE: SOURCE:TISSUE1 COLLECTED DATE/TIME:10/11/22 12:15 PM Fungal Culture, Non-Respiratory SPECIMEN DESCRIPTION : TISSUE LEFT FOOT SPECIAL REQUESTS : NONE DIRECT EXAM : NO FUNGAL ELEMENTS OBSERVED CULTURE : NO FUNGI ISOLATED AFTER 2 DAYS REPORT STATUS : PRELIMINARY REPORT TEST:Blood Culture, Second Order STATUS:Auth (Verified) BODY SITE: SOURCE:Blood COLLECTED DATE/TIME:10/08/22 7:00 PM Blood Culture, Second Order SPECIMEN DESCRIPTION : BLOOD ARM L SPECIAL REQUESTS : NONE CULTURE : NO GROWTH 5 DAYS. REPORT STATUS : FINAL 10/13/2022 TEST:Blood Culture STATUS:Auth (Verified) BODY SITE: SOURCE:Blood COLLECTED DATE/TIME:10/08/22 2:32 PM Blood Culture SPECIMEN DESCRIPTION : BLOOD RA SPECIAL REQUESTS : NONE CULTURE : NO GROWTH 5 DAYS. REPORT STATUS : FINAL 10/13/2022 Radiology Reports * Exam Date Time Procedure Performing Provider Status 10/11/22 2:45 AM MRI Ext Lower W+W/O Contrast Left Mallory Pastrana; Auth (Verified) Notes: (MRI Ext Lower W+W/O Contrast Left) Reason For Exam: Infection;Infection RESULT: MRI Ext Lower W+W/O Contrast Left MR EXTREMITY LOWER WITH AND WITHOUT CONTRAST LEFT HISTORY: Evaluate for osteomyelitis. TECHNIQUE: Multiplanar multisequence MRI of the foot. Sequences obtained before and after the intravenous administration of 23 mL Clariscan. FINDINGS: Images are degraded by motion artifact. Marrow edema in the fifth metatarsal head and fifth proximal phalanx. No confluent low T1 marrow signal replacement Diffuse edema within the intrinsic foot musculature. Diffuse subcutaneous fat stranding and edema. IMPRESSION: Images are degraded by motion artifact No evidence of osteomyelitis at this time. Marrow edema within the fifth metatarsal head and fifth proximal phalanx may be reactive at this time as there is no confluent low T1 marrow signal replacement to suggest osteomyelitis WSN: [id number] Ordering Physician: Verna Palmer Dictated By: Abraham Viera MD Dictated Date/Time: 10/11/22 8:24 am Reviewed By: Abraham Viera MD Signed By: Abraham Viera MD Signed Date/Time: 10/11/22 8:24 am Transcribed By: MAVIS Transcribed Date/Time: 10/11/22 8:15 am * Exam Date Time Procedure Performing Provider Status 10/08/22 7:54 PM Foot Min 3 Views Left Bethel Farris n; Auth (Verified) Notes: (Foot Min 3 Views Left) Reason For Exam: with Pain;Infection RESULT: Foot Min 3 Views Left Foot Min 3 Views Left, 3 views HX OF PRESENT ILLNESS: ? Cellulitis L foot COMPARISON: None. FINDINGS: No fractures or bone lesions. Moderate distal interphalangeal and intertarsal degenerative changes. Dorsal calcaneal bone spur. Vascular calcifications. IMPRESSION: No acute process or evidence of cortical erosion to suggest osteomyelitis. An MRI with contrast would be more sensitive for detection of osteomyelitis if needed. I have personally reviewed the images and I agree with this report. WSN: [id number] Ordering Physician: Yan Sauceda Dictated By: Verna Warren MD Dictated Date/Time: 10/08/22 8:19 pm Reviewed By: Vipul Espinoza MD Signed By: Vipul Espinoza MD Signed Date/Time: 10/08/22 8:24 pm Transcribed By: MAVIS Transcribed Date/Time: 10/08/22 8:12 pm Vital Signs Most recent to oldest [Reference Range]: 1 2 3 Height 173 cm (10/15/22 10:19 AM) 173 cm (10/15/22 8:20 AM) 173 cm (10/15/22 5:33 AM) Weight 105 kg (10/13/22 8:52 AM) 105 kg (10/13/22 4:36 AM) 106.3 kg (10/11/22 8:06 AM) Oxygen Saturation [94-100 %] 100 % (10/15/22 8:20 AM) 98 % (10/15/22 5:33 AM) 97 % (10/14/22 10:48 PM) Pulse Rate [55-90 bpm] 59 bpm (10/15/22 10:19 AM) 77 bpm (10/15/22 8:20 AM) 83 bpm (10/15/22 5:33 AM) Body Mass Index [18.5-24.99 kg/m2] 35.08 kg/m2 *>HHI* (10/13/22 8:52 AM) 35.08 kg/m2 *>HHI* (10/13/22 4:36 AM) 35.52 kg/m2 *>HHI* (10/11/22 8:06 AM) Blood Pressure [90-138/55-84 mm Hg] 134/72mm Hg (10/15/22 10:19 AM) 175/83mm Hg *H* (10/15/22 8:20 AM) 162/66mm Hg *H* (10/15/22 5:33 AM) Respiratory Rate [16-30 br/min] 18 br/min (10/15/22 9:09 AM) 19 br/min (10/15/22 8:20 AM) 18 br/min (10/15/22 8:09 AM) Temperature [96.8-100.4 DegF] 97.5 DegF (10/15/22 8:20 AM) 97.6 DegF (10/15/22 5:33 AM) 97.9 DegF (10/14/22 10:48 PM) Liters per Minute 5 L/min (10/13/22 10:30 AM) 3 L/min (10/11/22 12:45 PM) 5 L/min (10/11/22 12:30 PM) Mode of Delivery (Oxygen) Room air (10/15/22 8:20 AM) Room air (10/15/22 5:33 AM) Room air (10/14/22 10:48 PM) Blood pressure sites Arm, left (10/15/22 10:19 AM) Arm, left (10/15/22 8:20 AM) Arm, left (10/15/22 5:33 AM) Temperature Route Oral (10/15/22 8:20 AM) Oral (10/15/22 5:33 AM) Oral (10/14/22 10:48 PM) Dry Weight 106.3 kg (10/11/22 8:06 AM) 106.3 kg (10/08/22 11:11 PM) Weight Obtained Via Bed scale (10/13/22 4:36 AM) Bed scale (10/08/22 11:11 PM) Dry Weight Obtained Via Bed scale (10/08/22 11:11 PM) Social History Social History Type Response Smoking Status Former smoker, quit more than 30 days ago entered on: 06/01/21 Sex History and physical note * Event Display: History and Physical Hospital Authored Date: Admission evaluation note * Spencer CALLOWAY, Verna A: MODIFY, PERFORM Event Display: Admission Note Authored Date: Patient: ??JEREMY THOMPSONALD ? Age:??72 Years?Sex:??Male?:??1950?? Chief Complaint/Reason for Consultation Diabetic foot infection History of Present Illness ?? 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 He was admitted to our facility a month ago for DVT and was started on systemic anticoagulation with Eliquis.?? Upon presentation to the hospital, he was hemodynamically stable blood pressure 152/77, afebrile, tach saturation at 95% on room air.?? Initial blood work was notable for anemia with hemoglobin of 11.5 (baseline), slightly hypokalemic with potassium of 3.4, and elevated inflammatory marker CRP at 2.1 and ESR of 27.?? X-ray of the left foot without osteomyelitis.?? Given 1 dose of IV antibiotics and admission was requested for further management upon myevaluation he was lying comfortably in the stretcher without any signs of distress complaining only3 out of 10 pain of the left lower leg.?? He denies fever, chills, shortness of breath, chest pain,??nausea, vomiting, or abdominal pain. Review of Systems Constitutional:?No weight loss, fever, chills, weakness or fatigue. Cardiovascular:No chest pain,pressure or discomfort. No palpitations or pedal edema. Respiratory:No shortness of breath, cough or sputum production. Gastrointestinal:?No anorexia, nausea, vomiting or diarrhea. No abdominal pain or blood in stool. Genitourinary: No burning micturition. No urinary frequency or incontinence. Neurologic: No headache, dizziness, syncope, unilateral weakness, ataxia, numbness or tingling in the extremities. No change in bowel or bladder control. Musculoskeletal: Left lower extremity pain and swelling Hematologic: No bleeding or bruising. Lymphatics: No enlarged lymph nodes. Psychiatric: No depression or anxiety. Endocrine: No reports of sweating. No cold or heat intolerance. No polyuria or polydipsia. All other systems were reviewed and are negative. ?? Objective Measurements?? Height: 173 cm (10/08/22) ?? Vital Signs?? Temperature: 98.1 DegF (10/08/22 17:30:00) Temperature Route: Oral (10/08/22 17:30:00) Pulse Rate:??91 bpm??High (10/08/22 17:30:00) Respiratory Rate: 18 br/min (10/08/22 17:30:00) Systolic Blood Pressure:??140 mm Hg??High (10/08/22 17:30:00) Diastolic Blood Pressure: 71 mm Hg (10/08/22 17:30:00) Blood pressure sites: Arm, left (10/08/22 17:30:00) Mean Arterial Pressure: 102 mm Hg (10/08/22 16:04:00) Pulse Pressure: 69 mm Hg (10/08/22 17:30:00) Oxygen Saturation: 98 % (10/08/22 17:30:00) Mode of Delivery (Oxygen): Room air (10/08/22 17:30:00) ? Intake/Output? 10/08 21:18 10/08 07:00 10/07 07:00 10/06 07:00 10/05 07:00 ?? 10/08 22:02 10/08 22:02 10/08 06:59 10/07 06:59 10/06 06:59 Intake ?200.0 ?200.0 ?0 ?0 ?0 Output ?0 ?0 ?0 ?0 ?0 Net Total ?200.0 ?200.0 ?0 ?0 ?0 ? Physical Exam ?? Constitutional: Alert, in no acute distress. ?? Head: Normocephalic. ?? Eyes: Pupils are equal, round and reactive to light. Extraocular muscles intact. No pallor or scleral icterus ?? Ear, Nose and Throat: mucous membranes moist. Ears and nose - no obvious deformities. Trachea midline. ?? Neck: Supple, Full range of motion.No JVD or bruits. ?? Respiratory:??Clear to auscultation. No wheezing or rhonchi.??No use of accessory muscles. No tactile fremitus.? Cardiovascular:??PMI not visible. S1 S2 regular. No murmurs, rubs or gallops. ?? Gastrointestinal:??Abdomen soft, non-tender, non-distended. Normal bowel sounds. No pulsatile mass.No hepatosplenomegaly. ?? Genitourinary:??No costovertebral angle tenderness. ?? Extremities: No lower extremity pitting edema. No cyanosis or clubbing. ?? Neurologic:??AAOx3, Cranial nerves II-XII grossly intact. Speech normal, no facial droop. No focal neurological deficits. Moves all extremities spontaneously. Sensation intact bilaterally.??Flexor plantar response ?? Skin:??No rash.? Musculoskeletal:??Left lower extremity??redness, warm to touch??from mid leg distally.?? Infected wound on the??base of the left fifth??toe ?? Heme/Lymphatics:??Palpation of neck reveals no swelling or tenderness of neck nodes.? Psychiatric: Normal mood and affect. ? Assessment/Plan Diagnoses ? 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 Left lower extremity cellulitis: Concern for left??lower extremity??osteomyelitis: Left lower extremity wound??infection: Diabetic foot infection: Presents with??pain and swelling of the left lower extremity for the past??2 days. Reported??past??discharge from the the wound on the base of the left??fifth toe. Denied fever, chills or any other systemic symptoms. X-ray of the left foot without evidence of osteomyelitis. Elevated inflammatory markers. No leukocytosis noted on CBC. Given history of diabetic infection we will do??broad-spectrum antibiotics (vancomycin and Zosyn). Follow blood and wound cultures. Obtain MRI of??left lower extremity??to assess for??osteomyelitis. Vascular surgery consultation??after the MRI results wound care consultation. ?? DVT of the left lower extremity: Recent diagnosis of left lower extremity DVT. Currently on apixaban. Continue apixaban.?? Consider??bridging with heparin drip??in case??there is an evidence of osteomyelitis and he needs some sort of procedure. ?? Diabetes mellitus type 2: Insulin-dependent. Uncontrolled. A1c recently was 9.2 On high-dose degludec 2 times a day and short-acting. We will do Lantus and insulin sliding scale. POC 3 times a day Hypoglycemia protocol on board ?? Essential hypertension: Continue amlodipine 5 mg ?? Ischemic cardiomyopathy s/p left heart transplant: Stable. Euvolemic. Continue prednisone, tacrolimus, mycophenolate. ?? Dyslipidemia: Continue rosuvastatin 20 mg. ?? Depression/anxiety/insomnia: Continue trazodone ?? Quality metrics: CODE STATUS: Full resuscitation. DVT prophylaxis on apixaban. ?? Histories Allergies Allergies ?(Active and Proposed Allergies Only) lisinopril? (Severity: Unknown severity, Onset: Unknown) ? 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 Past Surgical History Esophagogastroduodenoscopy with biopsy [...] Amlodipine (amLODIPine 5 mg oral tablet)?5?Milligram?1?tablet?By Mouth?Daily apixaban (apixaban Starter Pack 5 mg oral tablet)?2?tab(s)?10?Milligram?By Mouth?2 times a day?Please take 10mg twice a day for 6 days (through 09/18/22) and then take 5mg twice a day starting 09/19/22 Aspirin (aspirin 81 mg oral delayed release tablet)?81?Milligram?1?tablet?By Mouth?Daily?for 30?Days Cholecalciferol (Vitamin D3 50,000 intl units oral capsule)?1?capsule?1,250?Microgram?By Mouth?Every week?for 8?week(s) Duloxetine (duloxetine 20 mg oral enteric coated capsule)?1?capsule?20?Milligram?By Mouth?2 times a day Durable Medical Equipment (Freestyle Nona Monitor)?See Instructions?Use with Freestyle 14 day Sensor to monitor Blood Glucose. ??E11.65 Durable Medical Equipment ([place], 31 G x 8 mm BD Ultra [...] PM 90 days supply Insulin Lispro (Humalog Cartridge 100 units/mL subcutaneous injection)?See Instructions?INSERT CARTRIDGE INTO INPEN DEVICE AND INJECT ??SUBCUTANEOUSLY 16 UNITS 3 ??TIMES DAILY WITH MEALS - ??MAX DAILY DOSE: 48 UNITS Miscellaneous Rx (Rx: Physical Therapy)?See Instructions?Rx: Physical TherapyDx: Frequent falls, deconditioning Miscellaneous Rx (Basic Metabolic Panel)?See Instructions?Please send results to Dr. Dung Bains: N18.30please obtain within 1 week of 09/12/22 Mycophenolate Sodium (mycophenolic acid 360 mg oral delayed release tablet)?2?tab(s)?720?Milligram?By Mouth?2 times a day Pantoprazole (pantoprazole 40 mg oral delayed release tablet)?1?tab(s)?By Mouth?2 timesa day PredniSONE (predniSONE 5 mg oral tablet)?1?tab(s)?5?Milligram?By Mouth?Daily Rosuvastatin (rosuvastatin 20 mg oral tablet)?1?tab(s)?20?Milligram?By Mouth?Daily Sucralfate (sucralfate 1 gm oral tablet)?1?gram?1?tablet?By Mouth?2 times a day Tacrolimus (tacrolimus 1 mg oral capsule)?2.5?capsule?2.5?Milligram?By Mouth?2 times a day?3 in the AM & 3 in the Evening Trazodone (traZODone 100 mg oral tablet)?200?Milligram?2?tablet?By Mouth?Daily atbedtime?as needed?Insomnia ? Results Recent Labs BLOOD COUNT & DIFF WBC 7.5 k/mm3 ()?? 10/08/2022 14:32 RBC 4.24 m/mm3 (Low)?? 10/08/2022 14:32 Hgb 11.5 Gm/dL (Low)?? 10/08/2022 14:32 Hct 37.0 % (Low)?? 10/08/2022 14:32 MCV 87.3 femtoliters ()?? 10/08/2022 14:32 MCH 27.1 pg ()?? 10/08/2022 14:32 MCHC 31.1 g/dL (Low)?? 10/08/2022 14:32 Platelet Count 120 k/mm3 (Low)?? 10/08/2022 14:32 RDW-SD 49.2 femtoliters (High)?? 10/08/2022 14:32 MPV 9.7 femtoliters ()?? 10/08/2022 14:32 Nucleated RBC (Automated) 0.0 #/100 WBC'S ()?? 10/08/2022 14:32 Abs. NRBC 0.0 k/mm3 ()?? 10/08/2022 14:32 Abs. Neut 6.5 k/mm3 ()?? 10/08/2022 14:32 Abs. Lymph 0.4 k/mm3 (Low)?? 10/08/2022 14:32 Abs. [place] 0.5 k/mm3 ()?? 10/08/2022 14:32 Abs. Eo 0.1 k/mm3 ()?? 10/08/2022 14:32 Abs. Baso 0.0 k/mm3 ()?? 10/08/2022 14:32 Neut % 86.4 % (High)?? 10/08/2022 14:32 Lymph % 4.9 % (Low)?? 10/08/2022 14:32 [place] % 7.2 % ()?? 10/08/2022 14:32 Eos % 0.7 % ()?? 10/08/2022 14:32 Baso % 0.1 % ()?? 10/08/2022 14:32 Imm Gran 0.7 % ()?? 10/08/2022 14:32 Abs. Imm Gran 0.1 k/mm3 ()?? 10/08/2022 14:32 ?? CHEM GENERAL Sodium 142 mmol/L ()?? 10/08/2022 14:32 Potassium 3.4 mmol/L (Low)?? 10/08/2022 14:32 Chloride 100 mmol/L ()?? 10/08/2022 14:32 Bicarbonate Level 28 mmol/L ()?? 10/08/2022 14:32 Anion Gap 14 ()?? 10/08/2022 14:32 Glucose Level 153 mg/dL (High)?? 10/08/2022 14:32 BUN 16 mg/dL ()?? 10/08/2022 14:32 Creatinine-Blood 1.2 mg/dL ()?? 10/08/2022 14:32 Estimated GFR Creatinine 68 ML/MIN/1.73 M2 ()?? 10/08/2022 14:32 Calcium 8.1 mg/dL (Low)?? 10/08/2022 14:32 Lactate 1.5 mmol/L ()?? 10/08/2022 14:32 C-Reactive Protein 2.1 mg/dL (High)?? 10/08/2022 14:32 ?? HEME OTHER Sed Rate 27 mm/hr (High)?? 10/08/2022 14:32 ?? VIROLOGY COVID-19 by RT-PCR NEGATIVE ()?? 10/08/2022 17:53 ? Cardiology * Event Display: Cardiac Rhythm Strips Authored Date: * Event Display: VL Ankle/Brachial Indices Authored Date: Demographics Procedure Information Patient name: BHAVANA MENDOZA Procedure date: 10/10/2022 10:18 AM Corporate Proc. sub type: Extremities Arteries: Lower Arterial Plethysmography, PVR Limited Single Gender: Male Level. Date of : 1950 Accession No: [id number] Age: 72 year(s) Account No: [id number] Patient status: TANO Procedure Staff Admit Status: Inpatient Ordering physician: Priest Robert Marino NP Facility: [facility] Referring Physician: Priest Robert Marino NP Study location: [facility] [place] Vascular Lab Admitting Physician: Matt Miranda MD Procedure consent obtained: Attending Physician: Spencer Rodriguez MD No Cafe Operator: Jillian Mann RDMS Interpreting physician: Belkis Ovalle MD Indications PVD/Peripheral Vascular Disease. Lower Extremity Findings Right Left Location Pressure (mmHg) Ratio Pressure (mmHg) Ratio Brachial 137 [employer] 220 1.61 220 1.61 DPA 220 1.61 220 1.61 Great Toe 68 0.5 Right SYDNEE: 1.61 Left SYDNEE: 1.61 Right TBI: 0.5 Physician Conclusions Summary: Right side: Indeterminate SYDNEE's secondary to noncompressible vessels. The Toe/ Brachial Index is 0.50 . Left side: Indeterminate SYDNEE's secondary to noncompressible vessels. Unable to obtain the Toe/ Brachial Index due to flat waveform. PVR waveform analysis indicates the presence of small vessel arteriopathy in the left foot. Snapshots * Event Display: VL Ankle/Brachial Indices Authored Date: * Event Display: VL Arterial Duplex Scan Left Authored Date: Demographics Procedure Information Patient name: BHAVANA MENDOZA Procedure date: 10/10/2022 10:23 AM Corporate Proc. sub type: Extremities Arteries: Lower Extremities Arterial Duplex, Arterial Gender: Male Duplex Scan Lower Extremity Left. Date of : 1950 Accession No: [id number] Age: 72 year(s) Account No: [id number] Patient status: TANO Procedure Staff Admit Status: Inpatient Ordering physician: Priest Robert Marino NP Probe: L 2-9 Referring Physician: Priest Robert Marino NP Technical quality: Limited visualization Admitting Physician: Matt Miranda MD Limitation reason: Calcific shadowing Attending Physician: Spencer Rodriguez MD Facility: [facility] Cafe Operator: Jillian Mann RDMS Study location: [facility] [place] Vascular Lab Interpreting physician: Belkis Ovalle MD Procedure consent obtained: No Indications PVD/Peripheral Vascular Disease. LE Arterial Duplex Findings Left Location PSV (cm/s) EDV (cm/s) Ratio Plaque Characteristics Wave Description Dist EIA 138.8 Multiphasic Common Femoral 130 Multiphasic Prox PFA 121.3 Multiphasic Prox SFA 130 Monophasic Mid SFA 137.3 1.06 Monophasic Dist SFA 182.6 1.33 Monophasic Prox Popliteal 129.3 0.71 Monophasic Mid Popliteal 160.7 1.24 Monophasic Dist Popliteal 188.9 1.18 Monophasic Prox [employer] 141.2 0.75 Monophasic Mid [employer] 205.4 1.45 Monophasic Dist [employer] 101.7 0.5 Monophasic Prox JOANN 134.4 0.71 Monophasic Mid JOANN 164.8 1.23 Monophasic Dist JOANN 113.1 0.69 Monophasic Prox Peroneal 116.8 0.83 Monophasic Mid Peroneal 214.5 1.84 Monophasic Physician Conclusions Summary: Left side: Monophasic waveforms are detected throughout the extremity as detailed above, previously multiphasic throughout. The Popliteal Artery stent is not well delineated but appears patent. Calcifications in the artery may obscure higher velocities. Elevated velocities are detected in the Posterior Tibial (previously 43.6 cm/s) and Peroneal (previously 37.3 cm/s) Arteries as detailed above. This study is compared to prior ultrasound imaging dated 02/01/21 . * Event Display: VL Arterial Duplex Scan Left Authored Date: [id number] Hospital Progress note * Ayad CALLOWAY, [facility]: PERFORM Event Display: Progress Note Hospital Authored Date: [id number] Patient: ??REJI THOMPSON ? Age:??72 Years?Sex:??Male?:??1950?? Subjective Patient seen at bedside Kidney function slightly up today Seen by ID, discontinued Zosyn per recommendations Switching heparin drip to Lovenox Review of Systems All review of systems negative except above Objective Measurements?? Height: 173 cm (10/14/22) Weight: 105 kg (10/13/22) Dry Weight: 106.3 kg (10/11/22) Body Mass Index:??35.08 kg/m2??Critical (10/13/22) ? Vital Signs?? Temperature: 98.4 DegF (10/14/22 12:28:00) Temperature Route: Oral (10/14/22 12:28:00) Pulse Rate: 87 bpm (10/14/22 12:28:00) Respiratory Rate: 18 br/min (10/14/22 14:56:00) Systolic Blood Pressure:??140 mm Hg??High (10/14/22 12:28:00) Diastolic Blood Pressure: 70 mm Hg (10/14/22 12:28:00) Blood pressure sites: Arm, left (10/14/22 12:28:00) Mean Arterial Pressure: 93 mm Hg (10/14/22 12:28:00) Pulse Pressure: 70 mm Hg (10/14/22 12:28:00) Oxygen Saturation: 100 % (10/14/22 12:28:00) Mode of Delivery (Oxygen): Room air (10/14/22 12:28:00) Early Warning Score: 6 (10/14/22 14:56:28) ? Intake/Output? 10/08 21:18 10/14 07:00 10/13 07:00 10/12 07:00 10/11 07:00 ?? 10/14 15:56 10/14 15:56 10/14 06:59 10/13 06:59 10/12 06:59 Intake ? 2022.9 ?0 ?565.3 ?169.1 ?0 Output ? 4800 ?650 ? 1949 ?0 ? 1200 Net Total ?-2777.1 ? -650 ?-1384.7 ?169.1 ?-1200 ? Urine Count ?1 ?0 ?0 ?1 ?0 ? Physical Exam General?NAD, AAO HEENT?PERRLA, oropharynx clear, moist mucus membranes Pulm?CTA bilaterally, no wheezes/rhonchi/rales CV?RRR, +S1/S2, no murmurs/rubs GI?Soft, nontender, nondistended, no organomegaly, bowel sounds are present Neuro?Moves all extremities MS?no obvious deformity Psych?Mood appropriate to situation? Left foot on??clean dressing _ Inpatient Medications Medications (36) Active SCHEDULED: (18) Acetaminophen 325 mg Tablet (Acetaminophen Tablet) ??975 mg, By Mouth, Every 8 hours Amlodipine 10 mg Tablet (amLODIPine 10 mg oral tablet) ??10 mg, By Mouth, Daily Aspirin 81 mg EC Tablet (aspirin 81 mg oral delayed release tablet) ??81 mg, By Mouth, Daily Duloxetine 20 mg Capsule (DULoxetine Capsule) ??20 mg, By Mouth, 2 times a day Gabapentin 300 mg Capsule (gabapentin 300 mg oral capsule) ??300 mg, By Mouth, 3 times a day Insulin Glargine 100 units/mL Inj (Lantus Inj) ??20 units 0.2 mL, Subcutaneous Injection, Daily in AM Insulin Glargine 100 units/mL Inj (Lantus Inj) ??30 units 0.3 mL, Subcutaneous Injection, Daily at bedtime Insulin [...] oral tablet) ??20 mg, By Mouth, Daily Silver dressing gel (44.4mL) (SilvaSorb) ??1 application, Topically, Every other day Tacrolimus 0.5 mg Capsule (tacrolimus 0.5 mg oral capsule) ??2.5 mg, By Mouth, Daily at bedtime Tacrolimus 1 mg Capsule (tacrolimus 1 mg oral capsule) ??2 mg, By Mouth, Daily in AM Vancomycin 1500 mg Inj (Vancomycin IVPB) ??1,500 mg, IVPB, Every 24 hours Vashe Wound Care Emollient/Cleanser (Vashe Topical Solution) ??475 mL, Topically, Every other day CONTINUOUS: (2) Heparin 25,000 units / 250 mL D5W premix 25,000 units [14 units/kg/hr] + D5%W Premixed IV 250 mL (Heparin 25,000 units in 250 mL Premix 25,000 units [14 units/kg/hr] + D5%W Premixed IV 250 mL) ??250 mL, IV Infusion, 14.88 mL/hr NaCL 0.9% (1000 mL) Cont IV 1,000 mL (NaCL 0.9% 1,000 mL) ??1,000 mL, IV Infusion, 100 mL/hr PRN: (16) Dextromethorphan-Guaifenesin 20 mg-200 mg/10 mL Liqu UD (Robitussin DM Liquid) ??10 mL, By Mouth, Every 4 hours Dextrose Inj Syringe (Dextrose 50% Inj Syringe (25Gm)) ??12.5 Gm, IV Push Slowly, Every 20 minutes Dextrose Inj Syringe (Dextrose 50% Inj Syringe (25Gm)) ??25 Gm, IV Push Slowly, Every 15 minutes Glucagon 1 mg Inj (Glucagon Inj) ??1 mg, Intramuscular, Once Glucose 40% Gel (15 Gm) (Glucose Gel) ??15 Gm, By Mouth, Every 20 minutes Glucose 40% Gel (15 Gm) (Glucose Gel) ??30 Gm, By Mouth, Every 20 minutes Heparin 5000 units/mL Inj (1 mL) (Heparin Inj) ??8,500 units 1.7 mL, IV Push, Every 6 hours Heparin 5000 units/mL Inj (1 mL) (Heparin Inj) ??4,500 units 0.9 mL, IV Push, Every 6 hours HYDROmorphone 0.5 mg/0.5 mL Inj Syringe (Dilaudid Inj) ??0.2 mg 0.2 mL, IV Push Slowly, Every 4 hours Melatonin 3 mg Tablet (Melatonin Tablet) ??3 mg, By Mouth, Daily at bedtime NaCl 0.9% Flush 3ml (NaCL 0.9% Flush) ??3 mL, IV Push, Every 8 hours OxyCODONE 5 mg IR Tablet (oxyCODONE 5 mg oral tablet) ??5 mg, By Mouth, Every 6 hours Polyethylene Glycol 17 Gm Powder (MiraLax [...] Antibiotics Calendar Day Last Administered First Administered Vancomycin??1,500 mg, 166.67 mL/hr, IVPB, Every 24 hours ?3 10/14/2022 01:12 10/12/2022 20:52 ? Stopped Antibiotics Stop Date/Time Last Administered First Administered Piperacillin-Tazobactam??3.375 Gm, 25 mL/hr, IVPB, Every 8 hours 10/14/2022 15:55 10/14/2022 14:55 10/09/2022 05:37 Vancomycin??1,500 mg, 166.67 mL/hr, IVPB, Every 24 hours 10/12/2022 07:12 10/11/2022 21:00 10/09/2022 21:05 ? Results Abnormal Labs ?? BLOOD COUNT & DIFF ??Abs. NRBC ??0.0 k/mm3 () ??10/14/2022 02:11 ??Hct ??30.7 % (Low) ??10/14/2022 02:11 ??Hgb ??9.5 Gm/dL (Low) ??10/14/2022 02:11 ??MCH ??26.7 pg (Low) ??10/14/2022 02:11 ??MCHC ??30.9 g/dL (Low) ??10/14/2022 02:11 ??MPV ??8.7 femtoliters (Low) ??10/14/2022 02:11 ??Nucleated RBC (Automated) ??0.0 #/100 WBC'S () ??10/14/2022 02:11 ??Platelet Count ??105 k/mm3 (Low) ??10/14/2022 02:11 ??RBC ??3.56 m/mm3 (Low) ??10/14/2022 02:11 ??RDW-SD ??47.5 femtoliters (High) ??10/14/2022 02:11 ??WBC ??3.4 k/mm3 (Low) ??10/14/2022 02:11 ? CHEM GENERAL ??Calcium ??8.2 mg/dL (Low) ??10/14/2022 02:11 ??Creatinine-Blood ??1.3 mg/dL (High) ??10/14/2022 02:11 ??Estimated GFR Creatinine ??57 ML/MIN/1.73 M2 () ??10/14/2022 02:11 ??Glucose Level ??163 mg/dL (High) ??10/14/2022 02:11 ??Glucose, POC ??143 mg/dL (High) ??10/14/2022 11:44 ? COAG ??APTT ??54.1 seconds (High) ??10/14/2022 13:36 ? MISC. CHEMISTRY ??Hold Gel Top ??SPECIMEN DISCARDED AFTER 1 WEEK () ??10/14/2022 08:18 ? Note: Critical results are displayed in red. ? Assessment/Plan 72-year-old male k/c of??CAD, ischemic cardiomyopathy s/p heart transplant at [facility] woman currently on mycophenolate, tacrolimus, prednisone, HTN, HLD, DM2??and hyperparathyroidism who presented with worsening redness and swelling of that left lower extremity, admitted for cellulitis of left foot.??Patient was seen by vascular surgery during hospital stay status post left fifth metatarsal head amputation on 10/11 and left lower extremity angiogram on 10/13??showed no??significant stenosis.? Left lower extremity cellulitis/soft tissue infection MRI left foot was negative for acute osteomyelitis, x-ray without any signs of osteomyelitis Patient did have elevated inflammatory markers, no leukocytosis Treated with Vanco/Zosyn Vascular surgery on board-status post left fifth metatarsal head amputation on 10/11, underwent angiography of left lower extremity in the OR on 10/13,??intraoperative cultures??grew??staph, sensitivities pending ?? -Seen by ID, discontinue Zosyn, continue Vanco and discharge on Doxy -Continue??pain control with Tylenol/oxycodone, Dilaudid-escalating dosage -Vascular is satisfied with his improvements and has signed off, follow-up as outpatient ? Recent DVT of left lower extremity Was on Eliquis at home, Eliquis co-pay around $120 per month, family had requested for Xarelto his co-pay was comes around $140 Currently on heparin drip, continue heparin for now -Switching heparin drip to Lovenox,??ongoing discussion about??angiography on discharge -Watch Lovenox??dose closely with patient?? kidney function falctuates ?? Ischemic cardiomyopathy s/p left heart transplant Follows up in [facility]. Tacrolimus level??previously??within normal range and mycophenolate level low at 1 -??Continue prednisone, tacrolimus, mycophenolate, adjust as needed ?? Hypomagnesemia: -Monitor and replete as needed ?? DM2: A1c 9.2, At home on Tresiba 45 units 2 times a day and lispro sliding scale. Inpatient Lantus 20 units in the morning and 30 units at bedtime, lispro sliding scale HTN: Continue with increased doses of amlodipine 10 mg daily Dyslipidemia: Continue rosuvastatin Depression/anxiety/insomnia: Continue trazodone ? * Michelle CALLOWAY, [facility]: PERFORM Event Display: Progress Note Hospital Authored Date: Patient: ??REJI THOMPSON ? Age:??72 Years?Sex:??Male?:??1950?? Subjective 10/13: Accepted patient under my care at 7AM. Chart reviewed, saw and examined patient.?? Patient taken to the OR for??angiography which revealed no significant stenosis.?? Vascular surgery is happy with??his progress and has signed off.?? He continues on IV antibiotics, cultures pending. ??ID was co nsulted for??recommendations about his antibiotic care plan.?? PT also consulted??to assess his discharge needs. ?? Review of Systems Constitutional:??denies F/C Cardiovascular:?no CP or palpitations Respiratory:??no SOB or significant cough Gastrointestinal:??no N/V/D :??no complaints Objective Measurements?? Height: 173 cm (10/13/22) Weight: 105 kg (10/13/22) Dry Weight: 106.3 kg (10/11/22) Body Mass Index:??35.08 kg/m2??Critical (10/13/22) ? Vital Signs?? Temperature: 97.5 DegF (10/13/22 11:49:00) Temperature Route: Oral (10/13/22 11:49:00) Normothermic Measures: Warming blanket (10/13/22 11:15:00) Pulse Rate: 88 bpm (10/13/22 11:49:00) Heart Rate Monitored: 86 bpm (10/13/22 11:30:00) Respiratory Rate: 18 br/min (10/13/22 12:15:00) Systolic Blood Pressure:??144 mm Hg??High (10/13/22 11:49:00) Diastolic Blood Pressure: 74 mm Hg (10/13/22 11:49:00) Blood pressure sites: Arm, left (10/13/22 11:49:00) Mean Arterial Pressure: 97 mm Hg (10/13/22 11:49:00) Pulse Pressure: 70 mm Hg (10/13/22 11:49:00) Oxygen Saturation: 94 % (10/13/22 11:49:00) Liters per Minute: 5 L/min (10/13/22 10:30:00) Mode of Delivery (Oxygen): Room air (10/13/22 11:49:00) Early Warning Score:??10??Critical (10/13/22 12:51:39) ? Pain Scores 1 - 10 Pain Scale Score: 7 (12:00) ? Intake/Output? 10/08 21:18 10/13 07:00 10/12 07:00 10/11 07:00 10/10 07:00 ?? 10/13 16:27 10/13 16:27 10/13 06:59 10/12 06:59 10/11 06:59 Intake ? 1487.6 ? 30 ?169.1 ?0 ? 1088.5 Output ? 3550 ? 1350 ?0 ? 1200 ?700 Net Total ?-2062.4 ?-1320 ?169.1 ?-1200 ?388.5 ? Urine Count ?1 ?0 ?1 ?0 ?0 ? Physical Exam Constitutional: Alert, in no acute distress. Head EENT: PERRL.??NCAT. Neck: Supple. No obvious LAD. Respiratory: CTAB. No use of accessory muscles. Cardiovascular: S1S2 present. No obvious JVD. Gastrointestinal: Abdomen soft, non-tender, non-distended. Bowel sounds present. Genitourinary: No CVA tenderness. Genital exam deferred. Extremities: No lower extremity pitting??edema. No cyanosis or clubbing BLE dressings in place, intact. Neurologic: Alert, generally appropriate. Speech normal. No gross focal neurological deficits. ?? _ Inpatient Medications Medications (36) Active SCHEDULED: (18) Acetaminophen 325 mg Tablet (Acetaminophen Tablet) ??975 mg, By Mouth, Every 8 hours Amlodipine 10 mg Tablet (amLODIPine 10 mg oral tablet) ??10 mg, By Mouth, Daily Aspirin 81 mg EC Tablet (aspirin 81 mg oral delayed release tablet) ??81 mg, By Mouth, Daily Duloxetine 20 mg Capsule (DULoxetine Capsule) ??20 mg, By Mouth, 2 times a day Gabapentin 300 mg Capsule (gabapentin 300 mg oral capsule) ??300 mg, By Mouth, 3 times a day Insulin Glargine 100 units/mL Inj (Lantus Inj) ??20 units 0.2 mL, Subcutaneous Injection, Daily in AM Insulin Glargine 100 units/mL Inj (Lantus Inj) ??30 units 0.3 mL, Subcutaneous Injection, Daily at bedtime Insulin Lispro 100 units/mL Inj (3mL) (Insulin LISPRO Scale) ??3-15 units, Subcutaneous Injection, 3 times a day before meals Magnesium Sulfate 1 Gm/ 100 mL D5W (Magnesium Sulfate IVPB) ??1 Gm 100 mL, IVPB, Once Mycophenolate Sodium 360 mg ER Tablet (mycophenolic acid 360 mg oral delayed release tablet) ??720 mg, By Mouth, 2 times a day NaCl 0.9% Flush 3ml (NaCL 0.9% Flush) ??3 mL, IV Push, Every 8 hours Pantoprazole 40 mg EC Tablet (pantoprazole 40 mg oral delayed release tablet) ??40 mg, By Mouth, 2 times a day Piperacillin/Tazobactam 3.375 Gm Inj (Zosyn Extended IVPB) ??3.375 Gm, IVPB, Every 8 hours PredniSONE 5 mg Tablet (predniSONE 5 mg oral tablet) ??5 mg, By Mouth, Daily Rosuvastatin 20 mg Tablet (rosuvastatin 20 mg oral tablet) ??20 mg, By Mouth, Daily Tacrolimus 0.5 mg Capsule (tacrolimus 0.5 mg oral capsule) ??2.5 mg, By Mouth, Daily at bedtime Tacrolimus 1 mg Capsule (tacrolimus 1 mg oral capsule) ??2 mg, By Mouth, Daily in AM Vancomycin 1500 mg Inj (Vancomycin IVPB) ??1,500 mg, IVPB, Every 24 hours CONTINUOUS: (2) Heparin 25,000 units / 250 mL D5W premix 25,000 units [16 units/kg/hr] + D5%W Premixed IV 250 mL (Heparin 25,000 units in 250 mL Premix 25,000 units [16 units/kg/hr] + D5%W Premixed IV 250 mL) ??250 mL, IV Infusion, 17.01 mL/hr NaCL 0.9% (1000 mL) Cont IV 1,000 mL (NaCL 0.9% 1,000 mL) ??1,000 mL, IV Infusion, 100 mL/hr PRN: (16) Dextromethorphan-Guaifenesin 20 mg-200 mg/10 mL Liqu UD (Robitussin DM Liquid) ??10 mL, By Mouth, Every 4 hours Dextrose Inj Syringe (Dextrose 50% Inj Syringe (25Gm)) ??12.5 Gm, IV Push Slowly, Every 20 minutes Dextrose Inj Syringe (Dextrose 50% Inj Syringe (25Gm)) ??25 Gm, IV Push Slowly, Every 15 minutes Glucagon 1 mg Inj (Glucagon Inj) ??1 mg, Intramuscular, Once Glucose 40% Gel (15 Gm) (Glucose Gel) ??15 Gm, By Mouth, Every 20 minutes Glucose 40% Gel (15 Gm) (Glucose Gel) ??30 Gm, By Mouth, Every 20 minutes Heparin 5000 units/mL Inj (1 mL) (Heparin Inj) ??8,500 units 1.7 mL, IV Push, Every 6 hours Heparin 5000 units/mL Inj (1 mL) (Heparin Inj) ??4,500 units 0.9 mL, IV Push, Every 6 hours HYDROmorphone 0.5 mg/0.5 mL Inj Syringe (Dilaudid Inj) ??0.2 mg 0.2 mL, IV Push Slowly, Every 4 hours Melatonin 3 mg Tablet (Melatonin Tablet) ??3 mg, By Mouth, Daily at bedtime NaCl 0.9% Flush 3ml (NaCL 0.9% Flush) ??3 mL, IV Push, Every 8 hours OxyCODONE 5 mg IR Tablet (oxyCODONE 5 mg oral tablet) ??5 mg, By Mouth, Every 6 hours Polyethylene Glycol 17 Gm Powder (MiraLax [...] mg, By Mouth, Daily at bedtime ? IV Titrations (Last 24 hrs) Most Recent Infusions (Max of 3)? 10/13 13:53 10/12 20:40 ?? Heparin 25,000 units in 250 mL Premix 25,000 units [16 units/kg/hr] + D5%W Premixed IV 250 mL 16 units/kg/hr 16 units/kg/hr ? 72 Hour Antibiotic History Active Antibiotics Calendar Day Last Administered First Administered Piperacillin-Tazobactam??3.375 Gm, 25 mL/hr, IVPB, Every 8 hours ?5 10/12/2022 23:41 10/09/2022 05:37 Vancomycin??1,500 mg, 166.67 mL/hr, IVPB, Every 24 hours ?2 10/12/2022 20:52 10/12/2022 20:52 ? Stopped Antibiotics Stop Date/Time Last Administered First Administered Vancomycin??1,500 mg, 166.67 mL/hr, IVPB, Every 24 hours 10/12/2022 07:12 10/11/2022 21:00 10/09/2022 21:05 ? Results Recent Labs BLOOD COUNT & DIFF WBC 3.8 k/mm3 (Low)?? 10/13/2022 05:32 RBC 4.07 m/mm3 (Low)?? 10/13/2022 05:32 Hgb 11.0 Gm/dL (Low)?? 10/13/2022 05:32 Hct 35.6 % (Low)?? 10/13/2022 05:32 MCV 87.5 femtoliters ()?? 10/13/2022 05:32 MCH 27.0 pg ()?? 10/13/2022 05:32 MCHC 30.9 g/dL (Low)?? 10/13/2022 05:32 Platelet Count 126 k/mm3 (Low)?? 10/13/2022 05:32 RDW-SD 48.0 femtoliters (High)?? 10/13/2022 05:32 MPV 9.0 femtoliters (Low)?? 10/13/2022 05:32 Nucleated RBC (Automated) 0.0 #/100 WBC'S ()?? 10/13/2022 05:32 Abs. NRBC 0.0 k/mm3 ()?? 10/13/2022 05:32 Abs. Neut 2.9 k/mm3 ()?? 10/13/2022 05:32 Abs. Lymph 0.5 k/mm3 (Low)?? 10/13/2022 05:32 Abs. [place] 0.2 k/mm3 (Low)?? 10/13/2022 05:32 Abs. Eo 0.1 k/mm3 ()?? 10/13/2022 05:32 Abs. Baso 0.0 k/mm3 ()?? 10/13/2022 05:32 Neut % 77.7 % (High)?? 10/13/2022 05:32 Lymph % 13.2 % (Low)?? 10/13/2022 05:32 [place] % 5.6 % ()?? 10/13/2022 05:32 Eos % 2.1 % ()?? 10/13/2022 05:32 Baso % 0.3 % ()?? 10/13/2022 05:32 Imm Gran 1.1 % ()?? 10/13/2022 05:32 Abs. Imm Gran 0.0 k/mm3 ()?? 10/13/2022 05:32 ?? CHEM GENERAL Sodium 141 mmol/L ()?? 10/13/2022 05:32 Potassium 3.8 mmol/L ()?? 10/13/2022 05:32 Chloride 103 mmol/L ()?? 10/13/2022 05:32 Bicarbonate Level 29 mmol/L ()?? 10/13/2022 05:32 Anion Gap 9 ()?? 10/13/2022 05:32 Glucose Level 97 mg/dL ()?? 10/13/2022 05:32 Glucose, POC 71 mg/dL ()?? 10/13/2022 12:50 BUN 16 mg/dL ()?? 10/13/2022 05:32 Creatinine-Blood 1.1 mg/dL ()?? 10/13/2022 05:32 Estimated GFR Creatinine 74 ML/MIN/1.73 M2 ()?? 10/13/2022 05:32 Calcium 8.6 mg/dL ()?? 10/13/2022 05:32 Phosphorus 3.1 mg/dL ()?? 10/12/2022 03:47 Magnesium 1.7 mg/dL ()?? 10/13/2022 05:32 Protein, Total 5.7 Gm/dL (Low)?? 10/13/2022 05:32 Albumin 3.3 Gm/dL (Low)?? 10/13/2022 05:32 AG Ratio 1.4 ()?? 10/13/2022 05:32 Alkaline Phosphatase 62 units/L ()?? 10/13/2022 05:32 AST (SGOT) 17 units/L ()?? 10/13/2022 05:32 ALT (SGPT) 15 units/L ()?? 10/13/2022 05:32 Bilirubin, Total 0.3 mg/dL ()?? 10/13/2022 05:32 ?? COAG APTT 78.6 seconds (High)?? 10/13/2022 05:32 ?? URINE OTHER Est Creatinine Clearance 59.81 mL/min ()?? 10/12/2022 05:05 ? Assessment/Plan Diagnoses ?? No diagnosis data available. ?? Assessment:??72-year-old male patient with a past medical history of diabetes mellitus, essential hypertension, coronary artery disease with ischemic cardiomyopathy s/p heart transplant at [facility] currently on mycophenolate, tacrolimus, prednisone, and hyperparathyroidism who presents to the emergency room for evaluation of worsening redness and swelling of that left lower extremity, admitted for cellulitis of left foot. MRI left foot was negative for osteomyelitis. Patient was seen by vascular surgery during hospital stay status post left fifth metatarsal head amputation on 10/11. Vascular surgery planning on left lower extremity angiogram in the OR on 10/13??which was performed??revealing no??significant stenosis. Currently patient is on vancomycin/Zosyn. ?? Left lower extremity cellulitis/soft tissue infection MRI left foot was negative for acute osteomyelitis, x-ray without any signs of osteomyelitis Patient did have elevated inflammatory markers, no leukocytosis Treated with Vanco/Zosyn Vascular surgery on board-status post left fifth metatarsal head amputation on 10/11, underwent angiography of left lower extremity in the OR on 10/13,??intraoperative cultures??grew??staph, sensitivities pending ?? -Continue inpatient care -Continue??pain control with Tylenol/oxycodone, Dilaudid-escalating dosage -ID consulted for antibiotic recommendations -Continue current antibiotics for now, modify as per ID -Vascular is satisfied with his improvements and has signed off, follow-up as outpatient ?? Hypomagnesemia -Monitor and replete as needed ? Recent DVT of left lower extremity Was on Eliquis at home, Eliquis co-pay around $120 per month, family had requested for Xarelto his co-pay was comes around $140 Currently on heparin drip, continue heparin for now -Would discuss AC plan with family in the morning ?? Insulin-dependent diabetes mellitus type 2 Recent glycohemoglobin of 9.2, uncontrolled diabetes mellitus At home on Tresiba 45 units 2 times a day and lispro sliding scale. -Inpatient Lantus 20 units in the morning and 30 units at bedtime, lispro sliding scale, POCT AC/atbedtime, continue hypoglycemia protocol -Continue to monitor, adjust as needed ?? Essential hypertension -Continue with increased doses of amlodipine 10 mg daily ?? Ischemic cardiomyopathy status post left heart transplant Follows up in [facility]. Tacrolimus level??previously??within normal range and mycophenolate level low at 1, adjusted per prior doc -??Continue prednisone, tacrolimus, mycophenolate, adjust as needed ?? Dyslipidemia -Continue rosuvastatin ?? Depression/anxiety/insomnia -Continue trazodone ? Please note, dictation software ([employer]) may have been used in the preparation of this note, and may have generated unintentional errors in speech recognition. If there are any questions going forward, please reach out for clarification. ?? Discharge Planning:?? Continues on IV antibiotics, follow-up final cultures, follow-up ID consult, follow up PT consult, possible discharge tomorrow or the next day. ?? * Maribell Adhikari MD: PERFORM Maribell Adhikari MD: PERFORM, MODIFY Maribell Adhikari MD: MODIFY, MODIFY Maribell Adhikari MD: MODIFY, MODIFY, MODIFY Event Display: Progress Note Hospital Authored Date: [id number] Patient: ??REJI THOMPSON ? Age:??72 Years?Sex:??Male?:??1950?? Subjective Patient seen postop from??diagnostic angio of the left??lower extremity via the right groin.?? Reports 7/10 rest pain in left leg, decreases to 2/10 when in dependent position off side of bed. Tolerating diet and PO fluids. Voiding independently.??Has not been out of bed. Review of Systems A 10-point review of systems was negative except as documented in the HPI.?? Physical Exam Vitals & Measurements T:??97.5?F?? HR:??88??(Peripheral)?? RR:??18?? BP:??144/74?? SpO2:??94%?? HT:??173??cm?? WT:??105??kg?? BMI:??35.08?? General: no acute distress, alert, awake Eyes: extraocular movement intact Nose: no epistaxis, no deformity Chest: symmetric, no deformity Heart: regular rate and rhythm Lungs: no respiratory distress, normal work of breathing Skin: right groin dressing in place with a 0.5cm??area of sanguineous staining on the dressing Extremities: right??groin is soft and appropriately tender, no hematoma, +1 edema left leg, bilateral foot dressings in place with some strike through over the L5 met head resection site Neurologic: alert &??answering questions appropriately, moves all extremities spontaneously, neuropathy with minimal sensation in the bilateral feet Vascular:??palpable AT, triphasic x2 (left) Assessment/Plan Reji Thompson is a 72-year-old man with a history of DM, HTN, CAD/ischemic cardiomyopathy s/p LVAD and CABG, prior heart transplant on immunosuppression, and PVD s/p SFA plasty, who was admitted to themedical service on 09/30 with a diabetic left??foot wound with cellulitis.?? ABIs were noncompressible, but TBIs was 0.5 with a flat waveform and Duplex showed monophasic flow through the lower leg.??Although MRI was not convincing for osteomyelitis,??he is diabetic and immunocompromised with decreased peripheral perfusion, so he was brought to the OR on 10/11 ([facility]) for debridement of his leftlateral foot wound and left fifth metatarsal head resection.?? He also underwent diagnostic angiogram today with Dr. Ovalle, which showed non-occlusive plaque in the proximal left popliteal artery, but brisk 3-vessel runoff to the foot. ?? Plan Ok for diet Pain control as needed Antibiotics per medicine Daily iodoform packing to the left lateral foot wound, then DSD and Kerlix roll Bedrest x4h Heel weight bearing as tolerated Right groin dressing to be removed on POD2 PT evaluation Tight glycemic control Remainder of care per primary medical team Outpatient follow-up in the Vascular Surgery office in 2-3 weeks. ?? We will sign off; [place] [phone] with any questions or concerns. ?? Note prepared with assistance from Gaurang Johnson MS4 Berny Hooker. Intake and Output Intake and Output Results?? This visit (24 hour periods starting at 07:00 EDT)? 10/13/22 *?? 10/12/22?? 10/11/22?? Total Summary?Intake mL?? 30?? 169.07?? --?Output mL?? 1,350?? --?? 1,200?Fluid Balance ?? -1,320?? 169.07?? -1,200?? Intake (3)?Heparin 25,000 units [16 units/kg/hr] + Dextrose 5% in Water 250 mL mL?? --?? 119.07?? --?Magnesium Sulfate mL?? --?? 50?? --?Oral Fluids mL?? 30?? --?? --?Total?? 30?? 169.07?? --?? Output (1)?Urine Voided mL?? 1,350?? --?? 1,200?Total?? 1,350?? --?? 1,200?? Counts (3)?Oral Fluids mL?? 30?? --?? --?Urine Count ?? --?? 1?? --?Urine Voided mL?? 1,350?? --?? 1,200? * This column has not completed the indicated time period.?? Labs Last 24 Hours BLOOD COUNT & DIFF ? Event Name?? Event Result?? Date/Time?? WBC 3.8 k/mm3??Low 10/13/22 05:32:00 RBC 4.07 m/mm3??Low 10/13/22 05:32:00 Hgb 11 Gm/dL??Low 10/13/22 05:32:00 Hct 35.6 %??Low 10/13/22 05:32:00 MCV 87.5 femtoliters 10/13/22 05:32:00 MCH 27 pg 10/13/22 05:32:00 MCHC 30.9 g/dL??Low 10/13/22 05:32:00 Platelet Count 126 k/mm3??Low 10/13/22 05:32:00 MPV 9 femtoliters??Low 10/13/22 05:32:00 Nucleated RBC (Automated) 0 #/100 WBC'S 10/13/22 05:32:00 ? COAG ? Event Name?? Event Result?? Date/Time?? APTT 78.6 seconds??High 10/13/22 05:32:00 ? CHEM GENERAL ? Event Name?? Event Result?? Date/Time?? Sodium 141 mmol/L 10/13/22 05:32:00 Chloride 103 mmol/L 10/13/22 05:32:00 Bicarbonate Level 29 mmol/L 10/13/22 05:32:00 Anion Gap 9 10/13/22 05:32:00 Glucose Level 97 mg/dL 10/13/22 05:32:00 BUN 16 mg/dL 10/13/22 05:32:00 Creatinine-Blood 1.1 mg/dL 10/13/22 05:32:00 Magnesium 1.7 mg/dL 10/13/22 05:32:00 Alkaline Phosphatase 62 units/L 10/13/22 05:32:00 AST (SGOT) 17 units/L 10/13/22 05:32:00 ALT (SGPT) 15 units/L 10/13/22 05:32:00 Bilirubin, Total 0.3 mg/dL 10/13/22 05:32:00 ? Note * Eden Bullock RN: PERFORM Event Display: Discharge/Transfer Note Hospital Authored Date: Nursing Discharge Note Entered On: 10/15/2022 12:42 EDT Performed On: 10/15/2022 12:42 EDT by Eden Bullock RN Nursing Discharge Note 2 Discharge Time : 10/15/2022 12:20 EDT Discharge Level of Care at Discharge : Homehealth/VNA Patient Left Unit Via : Wheelchair Patient Accompanied Off Unit with : Significant other DC Instructions Provided & Signed by Pt : Yes Patient Understands D/C Instructions : Yes Patient Instructions Discharge Signed : Yes Did Pt have Specialty Bed or Wound Vac : No Eden Bullock RN - 10/15/2022 12:42 EDT * Ayad CALLOWAY, Verna: MODIFY, MODIFY, MODIFY, MODIFY, MODIFY, PERFORM, MODIFY Event Display: Discharge/Transfer Note Hospital Authored Date: [id number] Patient: ??THOMPSON, REJI ? Age:??72 Years?Sex:??Male?:??1950?? Patient Information Discharge Location: Primary Care Physician: Dung Chen MD Admit Date/Time: 10/08/22 21:18 Discharge Disposition Discharge Disposition: ?? Discharge Diagnosis ??Left lower extremity cellulitis/soft tissue infection _ Discharge Medications Acetaminophen/Butalbital/Caffeine (Fioricet oral capsule)?1?capsule?By Mouth?Every 6 hours?as needed?Headache Amlodipine (amLODIPine 10 mg oral tablet)?10?Milligram?1?tablet?By Mouth?Daily?for 30?Days apixaban (apixaban Starter Pack 5 mg oral tablet)?10?Milligram?By Mouth?2 times a day?first dose on 10/15 at 2100 Aspirin (aspirin 81 mg oral delayed release tablet)?81?Milligram?1?tablet?By Mouth?Daily?for 30?Days Cholecalciferol (Vitamin D3 50,000 intl units oral capsule)?1?capsule?1,250?Microgram?By Mouth?Every week?for 8?week(s) Doxycycline (doxycycline hyclate 100 mg oral tablet)?1?tab(s)?100?Milligram?By Mouth?2 times a day?for 13?Days Duloxetine (duloxetine 20 mg oral enteric coated capsule)?1?capsule?20?Milligram?By Mouth?2 times a day Gabapentin (gabapentin 300 mg oral capsule)?1?capsule?By Mouth?3 times a day insulin degludec (insulin degludec (concentrated) 200 units/mL subcutaneous solution)?See Instructions?20 ??units in the AM and 30 units in the PM 30 days supply Insulin Lispro (Humalog Cartridge 100 units/mL subcutaneous injection)?See Instructions?INSERT CARTRIDGE INTO INPEN DEVICE AND INJECT ??SUBCUTANEOUSLY 16 UNITS 3 ??TIMES DAILY WITH MEALS - ??MAX DAILY DOSE: 48 UNITS Miscellaneous Rx (Rx: Physical Therapy)?See Instructions?Rx: Physical TherapyDx: Frequent falls, deconditioning Miscellaneous Rx (Basic Metabolic Panel)?See Instructions?Please send results to Dr. Dung Bains: N18.30please obtain within 1 week of 09/12/22 Mycophenolate Sodium (mycophenolic acid 360 mg oral delayed release tablet)?2?tab(s)?720?Milligram?By Mouth?2 times a day Oxycodone (oxyCODONE 5 mg oral tablet)?5?Milligram?By Mouth?Every 6 hours?as needed?for 7?Days?Pain , Severe Pantoprazole (pantoprazole 40 mg oral delayed release tablet)?1?tab(s)?By Mouth?2 timesa day PredniSONE (predniSONE 5 mg oral tablet)?1?tab(s)?5?Milligram?By Mouth?Daily Rosuvastatin (rosuvastatin 20 mg oral tablet)?1?tab(s)?20?Milligram?By Mouth?Daily Sucralfate (sucralfate 1 gm oral tablet)?1?gram?1?tablet?By Mouth?2 times a day Tacrolimus (tacrolimus 1 mg oral capsule)?2.5?capsule?2.5?Milligram?By Mouth?2 times a day?3 in the AM & 3 in the Evening Trazodone (traZODone 100 mg oral tablet)?2?tablet?By Mouth?Daily at bedtime?as needed? NEEDED FOR INSOMNIA Continue fludocortisone nasal spray ? Medications Started Doxycycline (doxycycline hyclate 100 mg oral tablet)?1?tab(s)?100?Milligram?By Mouth?2 times a day?for 13?Days Oxycodone Medications Discontinued None Doses Changed Decreased insulin Allergies Allergies ?(Active and Proposed Allergies Only) lisinopril? (Severity: Unknown severity, Onset: Unknown) ? PCP Follow-Up/Heads-Up Increased amlodipine and decreased??insulin doses. ??Please follow-up??blood pressure and??further management of diabetes outpatient Future Appointments Monday 9:00 AM EDT ?? With: Herb WARREN, July Where: Diabetic Teaching Status: Pending Monday 3:30 PM EDT ?? With: Becky Lopez NP Where: [facility] [address] [place] [address]- Status: Pending Monday 7:30 AM EDT ?? Where: [facility] Status: Pending 2022 10:30 AM EDT ?? With: Dung Chen MD Where: [facility] [address] [place] [address]- Status: Pending Hospital Course ? 72-year-old male k/c of??CAD, ischemic cardiomyopathy s/p heart transplant at [facility] woman currently on mycophenolate, tacrolimus, prednisone, HTN, HLD, DM2??and hyperparathyroidism who presented with worsening redness and swelling of that left lower extremity, admitted for cellulitis of left foot.??Patient was seen by vascular surgery during hospital stay status post left fifth metatarsal head amputation on 10/11 and left lower extremity angiogram on 10/13??showed no??significant stenosis.?Patient has been stable, seen by physical therapy??and recommended home. ?? 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 Susceptible to tetracycline ?? -Seen by ID, discharge on Doxy continue 2 w -Vascular follow-up as outpatient ? Recent DVT of left lower extremity Was on Eliquis at home, Eliquis co-pay around $120 per month, family had requested for Xarelto his co-pay was comes around $140 -Discussed with family and final decision to??continue Eliquis ?? Ischemic cardiomyopathy s/p left heart transplant Follows up in [facility]. Tacrolimus level??previously??within normal range and mycophenolate level low at 1 -??Continue prednisone, tacrolimus, mycophenolate, adjust as needed ?? Hypomagnesemia: -Monitor and replete as needed ?? DM2: A1c 9.2, At home on Tresiba 45 units 2 times a day and lispro sliding scale. ??Decrease insulin to 20??a.m. and 30??p.m. HTN: Continue with increased doses of amlodipine 10 mg daily Dyslipidemia: Continue rosuvastatin Depression/anxiety/insomnia: Continue trazodone Objective Vital Signs?? Temperature: 97.5 DegF (10/15/22 08:20:00) Temperature Route: Oral (10/15/22 08:20:00) Pulse Rate: 77 bpm (10/15/22 08:20:00) Respiratory Rate: 19 br/min (10/15/22 08:20:00) Systolic Blood Pressure:??175 mm Hg??High (10/15/22 08:20:00) Diastolic Blood Pressure: 83 mm Hg (10/15/22 08:20:00) Blood pressure sites: Arm, left (10/15/22 08:20:00) Mean Arterial Pressure: 114 mm Hg (10/15/22 08:20:00) Pulse Pressure: 92 mm Hg (10/15/22 08:20:00) Oxygen Saturation: 100 % (10/15/22 08:20:00) Mode of Delivery (Oxygen): Room air (10/15/22 08:20:00) Early Warning Score: 8 (10/15/22 08:51:39) ? . Physical Exam ?General?NAD, AAO HEENT?PERRLA, oropharynx clear, moist mucus membranes Pulm?CTA bilaterally, no wheezes/rhonchi/rales CV?RRR, +S1/S2, no murmurs/rubs GI?Soft, nontender, nondistended, no organomegaly, bowel sounds are present Neuro?Moves all extremities MS?no obvious deformity Psych?Mood appropriate to situation? Left foot on??clean dressing _ Surgical Procedures Resection Metatarsal Head 10/11/2022 11:58 Pending Results Anaerobic Culture ordered on 10/11/2022 CBC ordered on 10/10/2022 CBC ordered on 10/11/2022 Fungal Culture, Nonrespiratory ordered on 10/11/2022 Fungal Culture, Nonrespiratory ordered on 10/11/2022 Hold Gel Top Tube ordered on 10/10/2022 PTT ordered on 10/15/2022 Pathology Tissue Request ordered on 10/11/2022 Wound Deep Culture w/ Gram Smear ordered on 10/11/2022 Home Health Face to Face I certify that this patient is under my care and that I had a [id number] encounter with the patient? The encounter with the patient was in whole, or in part, for the following medical condition, whichis the primary reason for home health care:?? multiple comorbidities ? Wound care orders: right heel Vashe wash soak for 10 mins every other day and apply silvasorb gel to wound. Left 5th toe amp??iodoform packing with DSD daily ?? Nursing: Medication management (reconciliation, teaching), Chronic disease management.?? Wound dressing (surgery) Physical Therapy: Home exercise program to strengthen, increase ROM.?? Physician Signature: Ayad Gillespie. ?? Results Discharge Labs BLOOD COUNT & DIFF WBC 3.5 k/mm3 (Low)?? 10/15/2022 00:47 RBC 3.51 m/mm3 (Low)?? 10/15/2022 00:47 Hgb 9.4 Gm/dL (Low)?? 10/15/2022 00:47 Hct 30.5 % (Low)?? 10/15/2022 00:47 MCV 86.9 femtoliters ()?? 10/15/2022 00:47 MCH 26.8 pg (Low)?? 10/15/2022 00:47 MCHC 30.8 g/dL (Low)?? 10/15/2022 00:47 Platelet Count 116 k/mm3 (Low)?? 10/15/2022 00:47 RDW-SD 47.6 femtoliters (High)?? 10/15/2022 00:47 MPV 9.0 femtoliters (Low)?? 10/15/2022 00:47 Nucleated RBC (Automated) 0.0 #/100 WBC'S ()?? 10/15/2022 00:47 Abs. NRBC 0.0 k/mm3 ()?? 10/15/2022 00:47 Abs. Neut 2.6 k/mm3 ()?? 10/15/2022 00:47 Abs. Lymph 0.6 k/mm3 (Low)?? 10/15/2022 00:47 Abs. [place] 0.2 k/mm3 (Low)?? 10/15/2022 00:47 Abs. Eo 0.1 k/mm3 ()?? 10/15/2022 00:47 Abs. Baso 0.0 k/mm3 ()?? 10/15/2022 00:47 Neut % 74.2 % ()?? 10/15/2022 00:47 Lymph % 16.1 % ()?? 10/15/2022 00:47 [place] % 6.0 % ()?? 10/15/2022 00:47 Eos % 2.0 % ()?? 10/15/2022 00:47 Baso % 0.3 % ()?? 10/15/2022 00:47 Imm Gran 1.4 % ()?? 10/15/2022 00:47 Abs. Imm Gran 0.1 k/mm3 ()?? 10/15/2022 00:47 ?? CHEM GENERAL Sodium 143 mmol/L ()?? 10/15/2022 00:47 Potassium 3.9 mmol/L ()?? 10/15/2022 00:47 Chloride 105 mmol/L ()?? 10/15/2022 00:47 Bicarbonate Level 28 mmol/L ()?? 10/15/2022 00:47 Anion Gap 10 ()?? 10/15/2022 00:47 Glucose Level 178 mg/dL (High)?? 10/15/2022 00:47 Glucose, POC 122 mg/dL (High)?? 10/15/2022 08:20 BUN 17 mg/dL ()?? 10/15/2022 00:47 Creatinine-Blood 1.2 mg/dL ()?? 10/15/2022 00:47 Estimated GFR Creatinine 63 ML/MIN/1.73 M2 ()?? 10/15/2022 00:47 Calcium 8.4 mg/dL (Low)?? 10/15/2022 00:47 Phosphorus 3.1 mg/dL ()?? 10/12/2022 03:47 Magnesium 1.8 mg/dL ()?? 10/14/2022 02:11 Protein, Total 5.7 Gm/dL (Low)?? 10/13/2022 05:32 Albumin 3.3 Gm/dL (Low)?? 10/13/2022 05:32 AG Ratio 1.4 ()?? 10/13/2022 05:32 Alkaline Phosphatase 62 units/L ()?? 10/13/2022 05:32 AST (SGOT) 17 units/L ()?? 10/13/2022 05:32 ALT (SGPT) 15 units/L ()?? 10/13/2022 05:32 Bilirubin, Total 0.3 mg/dL ()?? 10/13/2022 05:32 Lactate 1.5 mmol/L ()?? 10/08/2022 14:32 C-Reactive Protein 2.1 mg/dL (High)?? 10/08/2022 14:32 ?? COAG APTT 34.4 seconds (High)?? 10/15/2022 00:47 ? HEME OTHER Sed Rate 27 mm/hr (High)?? 10/08/2022 14:32 ? MISC. CHEMISTRY Hold Gel Top SPECIMEN DISCARDED AFTER 1 WEEK ()?? 10/14/2022 08:18 ? TOXICOLOGY/TDM Tacrolimus Level 13.7 ng/mL ()?? 10/10/2022 05:33 Mycophenolate Level 1.0 ??g/mL (Low)?? 10/10/2022 05:33 Vancomycin Level, Trough 12.3 mg/L ()?? 10/13/2022 20:33 ? UA/URINALYSIS Appear/Color, Urine YELLOW ()?? 10/09/2022 06:51 Specific [place], Urine 1.022 ()?? 10/09/2022 06:51 pH, Urine 6.0 ()?? 10/09/2022 06:51 Albumin, Urine 3+ (Abnormal)?? 10/09/2022 06:51 Glucose, Urine 4+ (Abnormal)?? 10/09/2022 06:51 Ketones, Urine NEGATIVE ()?? 10/09/2022 06:51 Bilirubin, Urine NEGATIVE ()?? 10/09/2022 06:51 Hemoglobin, Urine TRACE (Abnormal)?? 10/09/2022 06:51 Nitrite, Urine NEGATIVE ()?? 10/09/2022 06:51 Leukocyte, Urine NEGATIVE ()?? 10/09/2022 06:51 Urobilinogen NORMAL mg/dL ()?? 10/09/2022 06:51 WBC's, Urine 4 /HPF ()?? 10/09/2022 06:51 RBC's, Urine 4 /HPF (High)?? 10/09/2022 06:51 Bacteria SLIGHT HPF (Abnormal)?? 10/09/2022 06:51 Hyaline Cast 2 LPF ()?? 10/09/2022 06:51 Mucus SLIGHT /LPF ()?? 10/09/2022 06:51 Hold Urine Culture Testing available 48 hours from time of collection. ()?? 10/09/2022 06:51 ? URINE OTHER Est Creatinine Clearance 54.83 mL/min ()?? 10/15/2022 02:38 ? VIROLOGY COVID-19 by RT-PCR NEGATIVE ()?? 10/08/2022 17:53 ? Microbiology ?? Blood Culture?? Completed?? Source: Blood Body Site: ?? Collected Dt/Tm: 10/08/2022 14:25 Last Updated Dt/Tm: 10/08/2022 14:26 ?SPECIMEN DESCRIPTION : BLOOD RASPECIAL REQUESTS : NONECULTURE : NO GROWTH 5 DAYS.REPORT STATUS : FINAL 10/13/2022 Blood Culture #2?? Completed?? Source: Blood Body Site: ?? Collected Dt/Tm: 10/08/2022 14:25 Last Updated Dt/Tm: 10/08/2022 20:27 ?SPECIMEN DESCRIPTION : BLOOD ARM LSPECIAL REQUESTS : NONECULTURE : NO GROWTH 5 DAYS.REPORT STATUS : FINAL 10/13/2022 COVID-19 (Novel Coronavirus), Rapid PCR?? Completed?? Source: Nasal Body Site: Nose Collected Dt/Tm: 10/08/2022 17:50 Last Updated Dt/Tm: 10/08/2022 19:16 ? Vancomycin Level, Trough: 12.3 mg/L Vancomycin Level, Trough:??30.9 mg/L??Critical ?? >35??minutes spent on discharge * Eden Bullock RN: PERFORM, MODIFY, MODIFY Event Display: Patient Education/Instruction Authored Date: [id number] Inpatient Adult Discharge Instructions [address] [address] Name: REJI THOMPSON : 1950 Visit: 10/08/2022 21:18:00 Current Date: 10/15/2022 10:57 Account: [id number] Inpatient Adult Discharge Instructions We would like [...] and their families. Surveys are administered by [employer] ?? If further treatment with your primary care physician or another doctor is recommended, it is important for you to keep the appointment. Call your primary care physician or return to the Emergency Department immediately if your condition worsens, fails to improve, or new symptoms develop. If you need to find a doctor, you can call [facility] [employer] for a referral at [phone] or toll free at [phone]) or log in to [email or web address].. ?? You can view and manage your care through the patient portal or by using a health care laurent of your choosing. [employer] is a website that allows you to securely view your medical information including your hospital discharge summary, office visit summaries, medications and follow-up visits. You can also request appointments, renew medications, and request access to your medical information using a health care laurent of your choosing, or just ask a question. You can enroll at [email or web address] or register during your next office visit. You have been discharged from [facility], Patient Care Unit: M6. If you have any questions regarding these instructions after you leave, please call us and we will be happy to assist you. [facility] Your Care Team Attending Physician Ayad CALLOWAY, Verna Consulting Providers Yamile CALLOWAY, Belkis Costello; Mattie CALLOWAY, Vitaliy Valenzuela; Jean Claude Franco DO; Esther Maravilla MD, Sanchez Rodriguez; Marietta CALLOWAY, Vicki Sanders Discharging Providers Ayad CALLOWAY, Verna Reason for Admission Cellulitis Your Diagnosis LLE cellulitis, DM foot wound Tests Performed Below is a partial list of the tests performed during your hospitalization. You may have had other tests and procedures not included in this list. Please discuss all test results with your provider. Basic Metabolic Panel BUN CBC CBC w/ Differential COMPREHENSIVE METABOLIC PANL COVID-19 (Novel Coronavirus), Rapid PCR Creatinine CRP Electrolytes ESR GLUCOSE POC HOLD GEL TUBE Lactate Level Magnesium Level Mycophenolate Level Phosphorus Level Tacrolimus Level Urinalysis w/hold for Urine Culture Vancomycin Trough MRI Ext Lower W+W/O Contrast Left XR Foot Min 3 Views Left Primary Care Provider Dung Chen MD Advance Directive Health Care Proxy on File Yes - Health Care Proxy Yes - [facility] Discharge Vitals Temperature: 97.5 DegF Height: 173 cm Pulse Rate: 59 bpm Weight: 105 kg Respiratory Rate: 18 br/min Body Mass Index:??35.08 kg/m2??Critical Systolic Blood Pressure: 134 mm Hg Body surface area: 2.25 Diastolic Blood Pressure: 72 mm Hg ?? Oxygen Saturation: 100 % ?? Studies Pending All tests and labs ordered during this hospital stay have been completed unless listed below. Please discuss all pending results with your provider listed above in these instructions. ?? Anaerobic Culture CBC Fungal Culture, Nonrespiratory (FUNGAL CULT,NON-RESPIRATORY) Hold Gel Top Tube (HOLD GEL TUBE) PTT Pathology Tissue Request () Wound Deep Culture w/ Gram Smear (Deep Wound Culture w/ Gram Smear) What to do next Instructions From Your Doctor Discharge Orders Scheduled Follow-Up Appointments Monday 9:00 AM EDT ?? With: Herb WARREN, July Where: Diabetic Teaching Status: Pending Monday 3:30 PM EDT ?? With: Becky Lopez NP Where: [facility] [address] [place] [address]- Status: Pending Monday 7:30 AM EDT ?? Where: [facility] Status: Pending 2022 10:30 AM EDT ?? With: Dung Chen MD Where: [facility] [address] [place] [address]- Status: Pending You Need to Schedule the Following Appointments Follow Up with??Sandra CALLOWAY, Sanchez Rodriguez When:??Within Within two weeks, only if needed Why: call to discuss if follow up is needed Where: [address] [place] [address]- Discharge Medications REJI THOMPSON :1950 Visit Date:10/08/2022 Medications: Please continue your medications until treatment is completed or stopped by your provider. Medications not listed below should be discontinued. Discuss any questions related to medications with your provider. What How Much When Why Instructions Next Dose New Doxycycline (doxycycline hyclate 100 mg oral tablet) 1 tab(s) Oral Twice a day Duration: 13 Days Pickup at [place] [address] start tonight bedtime New Oxycodone (oxyCODONE 5 mg oral tablet) 5 Milligram Oral Every 6 hours as needed for Pain , Severe Duration: 7 Days Pickup at [place] [address] available anytime today as needed Changed Amlodipine (amLODIPine 10 mg oral tablet) 1 tab(s) Oral Daily Duration: 30 Days Pickup at [place] [address] tomorrow morning Changed Trazodone (traZODone 100 mg oral tablet) 2 tab(s) Oral Daily at Bedtime as needed for NEEDED FOR INSOMNIA as needed Changed apixaban (apixaban Starter Pack 5 mg oral tablet) 10 Milligram Oral Twice a day first dose on 10/15 at 2100 ?? Pickup at [place] [address] tonight 9 pm Changed insulin degludec (insulin degludec (concentrated) 200 units/ mL subcutaneous solution) See instructions 20 ??units in the AM and 30 units in the PM 30 days supply ?? Pickup at [facility] tonight bedtime Unchanged Acetaminophen/ Butalbital/ Caffeine (Fioricet oral capsule) 1 capsule Oral Every 6 hours as needed for Headache as needed Unchanged Aspirin (aspirin 81 mg oral delayed release tablet) 1 tab(s) Oral Daily Duration: 30 Days tomorrow morning Unchanged Cholecalciferol (Vitamin D3 50,000 intl units oral capsule) 1 capsule Oral Every week Duration: 8 week(s) follow home schedule Unchanged Duloxetine (duloxetine 20 mg oral enteric coated capsule) 1 capsule Oral Twice a day tonight bedtime Unchanged Durable Medical Equipment (Freestyle Nona Monitor) See instructions Use with Freestyle 14 day Sensor to monitor Blood Glucose. ??E11.65 ?? Unchanged Durable Medical Equipment (Freestyle Nona Sensor) See instructions e11.65, use with freestyle nona 14 day reader for frequent glucose monitoring, change every 14 days, 28 day supply ?? Unchanged Durable Medical Equipment ([place], 31 G x 8 mm BD Ultra Fine III) See instructions Duration: 90 Days use as directed for Type 2 Diabetes Mellitus for 5 injections per day ?? E11.9 ?? Unchanged Durable Medical Equipment ([place], 32 G x 4 mm BD Ultra Fine III) Unchanged Fludrocortisone (fludrocortisone 0.1 mg oral tablet) follow home schedule Unchanged Fluticasone Nasal (fluticasone 50 mcg/ inh nasal spray) follow home schedule Unchanged Gabapentin (gabapentin 300 mg oral capsule) 1 capsule Oral 3 times a day 3 pm today Unchanged Insulin Lispro (Humalog Cartridge 100 units/ mL subcutaneous injection) See instructions INSERT CARTRIDGE INTO INPEN DEVICE AND INJECT ??SUBCUTANEOUSLY 16 UNITS 3 ??TIMES DAILY WITH MEALS - ??MAX DAILY DOSE: 48 UNITS ?? with meals Unchanged Miscellaneous Rx (Rx: Physical Therapy) See instructions Rx: Physical Therapy Dx: Frequent falls, deconditioning ?? Unchanged Mycophenolate Sodium (mycophenolic acid 360 mg oral delayed release tablet) 2 tab(s) Oral Twice a day tonight bedtime Unchanged Pantoprazole (pantoprazole 40 mg oral delayed release tablet) 1 tab(s) Oral Twice a day tonight bedtime Unchanged PredniSONE (predniSONE 5 mg oral tablet) 1 tab(s) Oral Daily tomorrow morning Unchanged Rosuvastatin (rosuvastatin 20 mg oral tablet) 1 tab(s) Oral Daily tomorrow morning Unchanged Sucralfate (sucralfate 1 gm oral tablet) 1 tab(s) Oral Twice a day tonight bedtime Unchanged Tacrolimus (tacrolimus 1 mg oral capsule) 2.5 capsule Oral Twice a day 3 in the AM & 3 in the Evening ?? follow home schedule [facility]: [address], [place] [id number] [phone] Test Results Below is a partial list of the most recent Laboratory test results done prior to this discharge. You may have had other tests and procedures not included in this list. Please discuss all test resultswith your provider. Est Creatinine Clearance - 54.83 mL/min (10/15/2022) Basic Metabolic Panel (10/15/2022) ???Sodium - 143 mmol/L???Potassium - 3.9 mmol/L???Chloride - 105 mmol/L???Bicarbonate Level - 28 mmol/L???Anion Gap - 10???Glucose Level - 178 mg/dL???BUN - 17 mg/dL???Creatinine-Blood - 1.2 mg/dL???Estimated GFR Creatinine - 63 ML/MIN/1.73 M2???Calcium - 8.4 mg/dL BUN (10/12/2022) ???BUN - 17 mg/dL CBC (10/14/2022) ???WBC - 3.4 k/mm3???RBC - 3.56 m/mm3???Hgb - 9.5 Gm/dL???Hct - 30.7 %???MCV - 86.2 femtoliters???MCH - 26.7 pg???MCHC - 30.9 g/dL???Platelet Count - 105 k/mm3???RDW-SD - 47.5 femtoliters???MPV - 8.7femtoliters???Nucleated RBC (Automated) - 0.0 #/100 WBC'S???Abs. NRBC - 0.0 k/mm3 CBC w/ Differential (10/15/2022) ???WBC - 3.5 k/mm3???RBC - 3.51 m/mm3???Hgb - 9.4 Gm/dL???Hct - 30.5 %???MCV - 86.9 femtoliters???MCH - 26.8 pg???MCHC - 30.8 g/dL???Platelet Count - 116 k/mm3???RDW-SD - 47.6 femtoliters???MPV - 9.0femtoliters???Nucleated RBC (Automated) - 0.0 #/100 WBC'S???Abs. NRBC - 0.0 k/mm3???Abs. Neut - 2.6 k/mm3???Abs. Lymph - 0.6 k/mm3???Abs. [place] - 0.2 k/mm3???Abs. Eo - 0.1 k/mm3???Abs. Baso - 0.0 k/mm3???Neut % - 74.2 %???Lymph % - 16.1 %???[place] % - 6.0 %???Eos % - 2.0 %???Baso % - 0.3 %???Imm Gran - 1.4 %???Abs. Imm Gran - 0.1 k/mm3 COMPREHENSIVE METABOLIC PANL (10/13/2022) ???Sodium - 141 mmol/L???Potassium - 3.8 mmol/L???Chloride - 103 mmol/L???Bicarbonate Level - 29 mmol/L???Anion Gap - 9???Glucose Level - 97 mg/dL???BUN - 16 mg/dL???Creatinine-Blood - 1.1 mg/dL???Estimated GFR Creatinine - 74 ML/MIN/1.73 M2???Calcium - 8.6 mg/dL???Protein, Total - 5.7 Gm/dL???Albumin - 3.3 Gm/dL???AG Ratio - 1.4???Alkaline Phosphatase - 62 units/L???AST (SGOT) - 17 units/L???ALT(SGPT) - 15 units/L???Bilirubin, Total - 0.3 mg/dL COVID-19 (Novel Coronavirus), Rapid PCR (10/08/2022) ???COVID-19 by RT-PCR - NEGATIVE Creatinine (10/12/2022) ???Creatinine-Blood - 1.1 mg/dL???Estimated GFR Creatinine - 70 ML/MIN/1.73 M2 CRP (10/08/2022) ???C-Reactive Protein - 2.1 mg/dL Electrolytes (10/12/2022) ???Sodium - 142 mmol/L???Potassium - 3.7 mmol/L???Chloride - 103 mmol/L???Bicarbonate Level - 28 mmol/L???Anion Gap - 11 ESR (10/08/2022) ???Sed Rate - 27 mm/hr GLUCOSE POC (10/15/2022) ???Glucose, POC - 122 mg/dL HOLD GEL TUBE (10/14/2022) ???Hold Gel Top - SPECIMEN DISCARDED AFTER 1 WEEK Lactate Level (10/08/2022) ???Lactate - 1.5 mmol/L Magnesium Level (10/14/2022) ???Magnesium - 1.8 mg/dL Mycophenolate Level (10/10/2022) ???Mycophenolate Level - 1.0 ??g/mL Phosphorus Level (10/12/2022) ???Phosphorus - 3.1 mg/dL Tacrolimus Level (10/10/2022) ???Tacrolimus Level - 13.7 ng/mL Urinalysis w/hold for Urine Culture (10/09/2022) ???Appear/Color, Urine - YELLOW???Specific [place], Urine - 1.022???pH, Urine - 6.0???Albumin, Urine - 3+???Glucose, Urine - 4+???Ketones, Urine - NEGATIVE???Bilirubin, Urine - NEGATIVE???Hemoglobin,Urine - TRACE???Nitrite, Urine - NEGATIVE???Leukocyte, Urine - NEGATIVE???Urobilinogen - NORMAL???WBC's, Urine - 4 /HPF???RBC's, Urine - 4 /HPF???Bacteria - SLIGHT???Hyaline Cast - 2 LPF???Mucus - SLIGHT???Hold Urine Culture - Testing available 48 hours from time of collection. Vancomycin Trough (10/13/2022) ???Vancomycin Level, Trough - 12.3 mg/L Allergies (NKA means No Known Allergies) lisinopril Problems Active Problems??(47) AICD (automatic cardioverter/defibrillator) present?? BMI 33.0-33.9,adult?? BPH - [facility]?? CAD; s/p CABG 1997, [place] 2006 w/stent; heart transplant 04/30?? CHD?? Chronic kidney disease stage 3?? Colon polyp?? Diabetes mellitus with cataract?? Diabetes mellitus with PVD; stents; [facility]?? DM 2?? Dry eyes?? DVT, lower extremity?? Dysautonomia?? Dyslipidemia?? Erectile dysfunction?? Erosive gastropathy - [...] drop?? Leukopenia?? Low back pain?? Microscopic hematuria; [facility]?? Neck pain?? Neuropathy due to diabetes mellitus?? Obstructive sleep apnea syndrome?? Osteopenia - minimal, on DXA 08/01?? Peripheral neuropathy?? Presbyesophagus?? Pure hypercholesterolemia?? Severe obesity (BMI 35.0-39.9) with comorbidity?? Tremor - Neurology at [facility]?? Type 2 DM with renal manifestations; [facility]?? Unsteady gait?? Education Materials Below is the list of Educational Leaflet Providered with your Discharge Instructions. Apixaban Oral Tablet?? Doxycycline Oral Tablet?? BVS-Toe and ??partial foot Amp?? Valuables and Belongings I fully understand and agree that [facility] accepts no responsibility for all my personal [...] Review of Valuable and Belonging List: With patient, With family, With witness Possessions released to: dentures with family Date for Pt to Sign Valuables/Belongings: 10/11/22 08:55:00 ?? Valuables & Belongings ?? Clothes Electronic devices Jewelry Monetary Items Personal devices Miscellaneous Medications (Valuables) Valuables at Bedside Pants, Shirt, Shoes, Other: hat Cell phone, Other: ipad and coffee maker servicer ? Valuables Sent Home ? Valuables Sent to Security ? Other Discharge Information ?? Wound Assessment?? Wound Assessment?? Wound Location I: Heel, right Wound Type I: Diabetic foot ulcer Wound I, Present on Admission: Yes Wound Location II: Foot, left Wound Type II: Vasculitic Wound II, Present on Admission: Yes Wound Location III: Second toe, right Wound Type III: Diabetic foot ulcer Wound III, Present on Admission: Yes ? Case Management Discharge Plan?? Discharge Plan?? Discharge Agency Information?? Discharge Level of Care at Discharge: Homehealth/VNA Name of Agency #1: [facility] ?? Service Categories #1: Dressing Supplies, Physical Therapy, Fpc, Wound Care ?? Service Comments #1: [facility] visiting nurse will call you within 24-48 hours to set up a first visit ?? Pulmonary Rehab Status?? Pulmonary Rehab Discharge [...] are strongly encouraged to quit. Please call [facility] [employer] at [phone] or [phone] ([phone]) or log in to [email or web address] for referrals to smoking cessation programs. ?? 005 Suicide & Crisis Lifeline is available 07/11 if you or someone you know needs to find a reason to keep living. By calling 599 you'll be connected to a skilled, trained counselor at a crisis center in your area. INPATIENT DISCHARGE INSTRUCTIONS SIGNATURE REJI ANGELES Location:[facility] Registration Date and Time:10/08/2022 21:18 EDT Primary Care Physician: Dung Chen MD, Attending Physician: Ayad CALLOWAY, [facility], I REJI THOMPSON, have received the above patient education materials/instructions and have verbalized understanding. If ambulance or transport services are being used I further acknowledge being givena choice of service. ?? If you need to contact me, please call me at this number: . Patient/Induction Coordination Power Engineer Name: Patient/Induction Coordination Power Engineer Signature: Relationship to Patient: Witness Name/Signature: Date: * Eden Bullock RN: PERFORM Event Display: Patient Education Leaflets Authored Date: [id number] Apixaban Oral Tablet ?? [id number] Apixaban Oral Tablet Brands: Eliquis Uses This medicine is used for the following purposes: ??? blood disorder ??? prevent blood clots ??? treatment of blood clots ??? blood clot ?? Instructions This medicine may be taken with or without food. This medicine will work best if you take it at about the same time every day. Store at room temperature away from heat, light, and moisture. Do not keep in the bathroom. It is important that you keep taking each dose of this medicine on time even if you are feeling well. If you forget to take a dose on time, take it as soon as you remember. If it is almost time for thenext dose, do not take the missed dose. Return to your normal schedule. Do not take 2 doses at one time. Drug interactions can change how medicines work or increase risk for side effects. Tell your healthcare providers about all medicines taken. Include prescription and kthr-aen-ftixpfo medicines, vitamins, and herbal medicines. Speak with your doctor or pharmacist before starting or stopping any medicine. Talk to your doctor before taking other medicines, including aspirins and ibuprofen containing products. Speak to your doctor about which medicines are safe to use while you are on this medicine. It is very important that you follow your doctor's instructions for all blood tests. ?? Cautions This medicine may cause serious bleeding problems in patients taking blood thinner medications. Follow your doctor's instructions carefully to monitor your blood lab tests if you are on blood thinners. Tell your doctor and pharmacist if you ever had an allergic reaction to a medicine. This medicine may cause serious bleeding from the stomach or bowels. Stop this medicine and call your doctor immediately if you see any signs of bleeding. Bleeding can cause pain in the stomach, vomiting up liquid that looks like coffee grounds, and red or dark tarry stools. There is an increased risk of bleeding while on this medicine, please tell your doctor or nurse if you notice any excessive bleeding or bruising. Do not use the medication any more than instructed. Please check with your doctor before drinking alcohol while on this medicine. Do not breastfeed while on this medicine. This medicine can hurt a new baby in the womb. If you become while on this medicine, tell your doctor immediately. Your doctor may switch you to a different medicine. Do not take [place]'s wort while on this medicine. Do not share this medicine with anyone who has not been prescribed this medicine. Some patients have serious side effects from this medicine. Ask your pharmacist to show you the information from the Food and Drug Administration (FDA) and discuss it with you. Always refill this medicine before it runs out. ?? Side Effects The following is a list of some common side effects from this medicine. Please speak with your doctor about what you should do if you experience these or other side effects. ??? nosebleeds Call your doctor or get medical help right away if you notice any of these more serious side effects: ??? bleeding or bruising ??? coughing up blood or vomit that looks like coffee grounds ??? fainting??? numbness or tingling in hands and feet ??? severe or persistent headache ??? sudden leg pain, swelling, warmth or redness ??? loss of movement anywhere on the body ??? shortness of breath ??? bloody or dark, tarry stools ??? symptoms of stroke (such as one-sided weakness, slurred speech, confusion) ??? difficulty swallowing ??? unusual or unexplained tiredness or weakness ??? blood in urine ??? blurring or changes of vision A few people may have an allergic reaction to this medicine. Symptoms can include difficulty breathing, skin rash, itching, swelling, or severe dizziness. If you notice any of these symptoms, seek medical help quickly. ?? Extra Please speak with your doctor, nurse, or pharmacist if you have any questions about this medicine. ?? [email or web address] IMPORTANT NOTE: This document tells you briefly how to take your medicine, but it does not tell youall there is to know about it. Your doctor or pharmacist may give you other documents about your medicine. Please talk to them if you have any questions. Always follow their advice. There is a more complete description of this medicine available in [place]. Scan this code on your smartphone or tablet or use the web address below. You can also ask your pharmacist for a printout. If you have any questions, please ask your pharmacist. The display and use of this drug information is subject to Terms of Use. Copyright(c) 2022 [employer]. ?? [employer]. All rights reserved. This information is not intended as a substitute for professional medical care. Always follow your healthcare professional's instructions. ?? * Eden Bullock RN: PERFORM Event Display: Patient Education Leaflets Authored Date: [id number] Doxycycline Oral Tablet ?? [id number] Doxycycline Oral Tablet Uses For treating bacterial infection. ?? Instructions Take the medicine with 250 mL (1 cup) of water. Take on empty stomach - 1 hour before or 2 hours after eating. Sit or stand upright for 30 minutes after taking the medicine. Do not lie down. Keep the medicine at room temperature. Avoid heat and direct light. Do not take any antacid or vitamins with magnesium, calcium, aluminum, or iron for 2 hours before and 2 hours after taking this medicine. This medicine can make you sensitive to the sun. Use sunscreen or protective clothing when in sun. If you forget to take a dose on time, take it as soon as you remember. If it is almost time for thenext dose, do not take the missed dose. Return to your normal schedule. Do not take 2 doses at one time. Drug interactions can change how medicines work or increase risk for side effects. Tell your healthcare providers about all medicines taken. Include prescription and bvuk-xaq-kmcaosj medicines, vitamins, and herbal medicines. Speak with your doctor or pharmacist before starting or stopping any medicine. Keep using this medicine for the full number of days that it is prescribed. Do not stop the medicine even if you start to feel better. This medicine can cause permanent change in teeth color in children. ?? Cautions Tell your doctor and pharmacist if you ever had an allergic reaction to a medicine. Do not use the medication any more than instructed. Contact your doctor if you notice a change in the amount or darkening of your urine. Please tell your doctor if you have moderate to severe diarrhea while on this medicine. Do not treat the diarrhea with hvnm-zmf-oadaovx diarrhea medicine. This medicine passes into breast milk. Ask your doctor before . This medicine can hurt a new baby in the womb. If you become while on this medicine, tell your doctor immediately. Your doctor may switch you to a different medicine. Do not share this medicine with anyone [...] of these more serious side effects: ??? swelling in the neck or throat ??? difficulty swallowing ??? blurring or changes of vision A few people may have an allergic reaction to this medicine. Symptoms can include difficulty breathing, skin rash, itching, swelling, or severe dizziness. If you notice any of these symptoms, seek medical help quickly. ?? Extra Please speak with your doctor, nurse, or pharmacist if you have any questions about this medicine. ?? [email or web address] IMPORTANT NOTE: This document tells you briefly how to take your medicine, but it does not tell youall there is to know about it. Your doctor or pharmacist may give you other documents about your medicine. Please talk to them if you have any questions. Always follow their advice. There is a more complete description of this medicine available in [place]. Scan this code on your smartphone or tablet or use the web address below. You can also ask your pharmacist for a printout. If you have any questions, please ask your pharmacist. The display and use of this drug information is subject to Terms of Use. Copyright(c) 2022 [employer]. ?? [employer]. All rights reserved. This information is not intended as a substitute for professional medical care. Always follow your healthcare professional's instructions. ?? * Eden Bullock RN: PERFORM Event Display: Patient Education Leaflets Authored Date: [id number] BVS-Toe and partial foot Amp ?? 61 Toe/Partial Foot Amputation Post Operative Discharge Instructions ?? You are being discharged from the hospital.?? Here is information related to your condition to helpyou when you get home.?? In addition, you may have been given the [facility] heart and vascular patient education book.?? This book provides written information and instruction for you to review at home with your family.? Special Instructions Post Operative Discharge Care Instructions Bathing ??? No showering or tub baths until cleared by vascular surgeon. ?? Incision Care ??? Keep your incision clean and dry.?? Use only soap and water to cleanse the area around the incision.?? Once the incision is healed you may wash over the incision with a soft wash cloth and soap and water.? Do not use perfumed soaps or body washes, lotions, creams, oils or ointments on your incision. This may irritate your incision and put you at risk for an infection. ??? Check your incision daily fordrainage, redness, increased tenderness or edges pulling apart.?? Some bruising and discoloration is normal in the first week following surgery. ??? If your incision is still draining, you will learn how to apply dry clean dressings.? If you have steri strips on your incision, remove them on Post-Op Day #5. ?? Limb Elevation ??? You may experience some limb swelling following surgery. ??? Itis important that you are not sitting for long periods of time with your limb down.?? Elevate your limb as much as possible. ??? If you notice swelling, elevate your limb at or above heart level while seated.?? If swelling continues or worsens call the vascular surgery office. ?? Activity ??? When appropriate physical therapy will be ordered.? You may need a post-operative shoe, your vascular surgeon will order if necessary.? It is important to continue to do the coughing and deep breathing exercises to help prevent breathing complications. ?? Driving ??? No driving until cleared byyour surgeon. ??? Always wear a seat belt. ?? Sexual Relations ??? You may resume sexual activity as soon as you feel comfortable. ?? Emotions ??? It is common for people to feel more emotional or have difficulty concentrating or remembering after major surgery.?? These emotions may be the result of anesthesia, medications, not knowing whatto expect and difficulty doing simple tasks without becoming tired.? Pain ??? You may have some muscle or incision discomfort during activity. You will be given prescription medication for the pain and use it if you need it.? Call the Vascular SURGEON ? For any incision redness, swelling, tenderness, drainage, or odor. ??? For a temperature of 101.5 degrees F or greater. ??? For unusual or severe limb pain, loss of sensation or movement, coldness or discoloration of the limb, and any skin breakdown of the limb. ?? Seek care IMMEDIATELY if? You have increased or unusual pain or numbness of limb, or sudden loss of movement in your limb. ??? Your limb becomes very cold, or turns pale or blue ??? You have trouble breathing all of a sudden ??? Your stitches or srinivas come apart or separate ??? Your incision suddenly starts bleeding and/or your dressing becomes soaked with blood ?You have signs of a heart attack:?? CALL 911 right away. You may need an ambulance to take you to the hospital. Do not drive yourself or wait for your doctor to call you back.?? Signs of a heart attack may be: o Chest pain or discomfort, including squeezing, crushing, pressure, tightness or heaviness in the chest. o Pain or discomfort in your arms , shoulders, neck, back or jaw. o Indigestion, such as heartburn and upset stomach. o Nausea (feel sick to your stomach) and vomiting (throwing up). o Pain in your abdomen (stomach). o Shortness of breath. o Sweating, weakness or fainting (passing out). Follow-up ??? A follow up appointment should be made with your surgeon for 1 to 2 weeks following discharge.?? If you do not have an appointment scheduled already, make an appointment when you get home.?? Follow up care is important; it is strongly encouraged for you to keep your appointment. You may have more than one appointment, one with your surgeon and one with your primary care doctor. ??? Be sure tosee your primary care physician 1-2 weeks after hospital discharge. ??? Ask your doctor when you can return to work. ??? If you have any questions, please call the vascular surgeons at [phone]. ?? Heart and Vascular Healthy Living You can make style changes that can help lower your risk for heart and vascular disease.?? The following information can help you get started or maintain your current lifestyle. Diet ??? Eat a low fat, low cholesterol diet. ??? Eating 3 to 4 small meals daily maybe better tolerated than 1-2 large meals daily ??? Limit caffeine and alcohol use ??? Limit the amount of salt in your diet Exercise ??? Routine regular or prescribed exercise is strongly encouraged. ??? Avoid strenuous exercise after meals Smoking ??? If you smoke, you are strongly encouraged to quit.? Smoking can increases blood pressure, decrease exercise tolerance and increase the tendency for blood to clot, decrease HDL (good) cholesterol and creates a higher risk for having a heart at tack, stroke or other vascular events.? If you are ready to quit, please let us know; Referrals to smoking cessation programs are available. Lowering your cholesterol ??? Talk to your doctor about taking medicine for high cholesterol. Diet and exercise may not loweryour cholesterol enough. Cholesterol medicines may help prevent further cholesterol build up in thearteries. High blood pressure and diabetes ??? If you have high blood pressure or diabetes, continue with your prescribed treatments.?? These health problems if not controlled can put you at risk for having a heart attack, stroke or other vascular events. ?? Stress ??? Stress may slow healing and cause illness later. Since it is hard to avoid stress, learn to control it. Learn new ways to relax (deep breathing, relaxing muscles, meditation, or biofeedback). Talk to your caregiver about things that upset you. ?? Medication Information Take all your medicationsas prescribed.?? Many medications have more than one name. Be sure you know the name of your medication.?? Call your physician if you have any questions after you get home.?? Keep a written list (Pathfulmedication card) of what medicines you take and when and why you take them. Bring the list of your medicines or the pill bottles when you see your caregivers. Learn why you take each medicine. Ask your caregiver for information about your medicine. Depending on your condition, you may have other medicines prescribed as part of your discharge plan of care.?? Some may include: ??? Pain Medication :?? Pain medications may be prescribed after surgery.?? Controlling your pain is important to help you heal and increase your activity level.?? One of the side effects of pain medication is constipation.?? If you are taking pain medication on a regular basis, it is important to also take a stool softener that is prescribed. Also, adding high fiber foods, fiber medicines and prune juice may help.? Antibiotics :?? You may be prescribed antibiotics following surgery.?? This medicine may be given to help you fight infection. It is important for you to finish the prescription. ??? SHANTEL inhibitors : These are medicines that keep your blood vessels relaxed and open. They help keep oxygen-rich blood flowing into your heart. These medicines may be used to treat high blood pressure and prevent your heart muscle from weakening. ??? Aldosterone Inhibitors : These medicines prevent scar tissue from forming in your heart.?? It also helps with eliminating extra salt and water. ??? Angiotensin Receptor Blockers (ARB): These medicines lower blood pressure and prevent your heart muscle from weakening. These medicines are used for patients who can not tolerate SHANTEL Inhibitors. ??? Beta-blockers : These medicines keep your heart pumping strongly and regularly and may also lower your blood pressure. Beta blockers lower blood pressure, prevent chest pain and irregular heart beats. ??? Digoxin: This medicine keeps your heart rate slow if your heart is in an irregular rhythm.?? Digoxin may improveactivity tolerance as well.? Diuretics: ?? These medicines help the heart work better by decrea sing the extra fluid in your body.?? Getting rid of the extra fluid will help your heart to not work so hard.?? These medicines may need to be adjusted by your doctor. ??? Vasodilators : These medicines decrease the pressure in your arteries, especially in the vessels around your heart. ??? Anti-coagulants: These medicines help keep the blood from clotting in an artery, vein or the heart. Clots can block the blood flow to your heart muscle and cause a heart attack.?? Clots can also block blood flow to your brain, causing a stroke. ??? Anti-platelets : Anti-platelet medicines, such as aspirin,keep platelets from sticking to a damaged part of your artery. Sticky platelets may cause a blockage in your artery and keep blood from going to your heart muscle. ??? Blood pressure (Anti-hypertensives): These medicines may be given to lower your blood pressure. Keeping your blood pressure under control protects your heart, lungs, brain, kidneys, and other organs. ??? Cholesterol lowering medicines: These help to lower cholesterol that causes coronary (heart) artery disease. ??? Diabetes medicines : These may be given to control the amount of sugar in your blood. It helps your body move the sugar from the blood to your cells, where it is needed for energy. ??? Nitroglycerin: This medicine may also be called nitro. Nitroglycerin opens the arteries to your heart so the heart gets more oxygen. Nitroglycerin can be given in an IV, by mouth, or put on your body as a patch or paste. ? * Event Display: Provider Clarification Note Please click on pdf link to open report Consult note * Sanchez Flores MD: PERFORM, MODIFY, SIGN, VERIFY Event Display: Consultation Note Authored Date: Patient: REJI THOMPSON Age: 72 years Sex: Male : 1950 Associated Diagnoses: None Author: Sanchez Flores MD INFECTIOUS DISEASES CONSULTATION NOTE Requesting Attending/Provider: Dr. Martinez Reason for Consult: Left diabetic foot infection Source of Information: CIS, patient History of Present Illness ([id number]: HPI ???4): This is a quite pleasant 72-year-old man with congestive heart failure s/p transplant in 2013 at the [facility]. Patient presents to the hospital with complaints of left foot swelling and pain. It seems that the patient developed a wound over this area about a month or so ago and has been followed at the wound care clinic for ongoing treatment has been taking place. However about a week or so ago he noted that his foot was starting to get swollen and redness started to spread throughout the entire foot. Because of increasing swelling and starting to note pain despite his diabetic neuropathy, the patient presented to the hospital for further management. Here he was admittedand started on broad-spectrum antibiotic therapy with vancomycin and Zosyn. Was seen by vascular surgery referred that further increase with x-ray and MRI were being done since the wound was drainingpurulent material, and attempt to gauge how extensive surgery will need to be since the patient would need at the bare minimum debridement. MRI was unrevealing be on soft tissue infection and patientwas taken to the OR on 10/11/2022. There they found a small abscess cavity just on the plantar surface of the fifth metatarsal head. Because of this, after debriding all the devitalized tissue and muscle, the metatarsal head was evaluated it would appear the periosteum appeared intact but given proximity to the abscess there was concern about infection reason for which was decided to perform the fifth metatarsal head removal. Culture samples were sent and patient continue on broad-spectrum antibiotic therapy. He did undergo angiogram to ensure proper vascularity did not show any significant obstructions or require urgent intervention. Patient consulted to provide further recommendations regarding management. He mentions that after surgery he has been doing fairly well although the bandagesdo get soaked fairly quick. The patient and his mention that is usually bright red blood without any significant odor Past Medical and Surgical History: As noted above patient with CAD with associated ischemic cardiomyopathy for which he did have extensive management including CABG and LVAD placement with subsequent heart transplantation in April 2013 at the [facility]. Presently on mycophenolate, tacrolimus, and prednisone 5 mg daily. Patient does have significant diabetes type 2 with associated neuropathy and peripheral vascular disease for which she has undergone angiography since stenting. Also associated to the patient's diabetes he does have chronic kidney disease stage III. Last month the patient was admitted after he had a syncopal episode and found with a left leg DVT. Previous issues with lower extremity cellulitis receiving several courses of cephalexin's over the past few years. Relating to his skin also has been noted previously with squamous cell carcinoma withcomplete removal by [facility]. 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 Only other surgical intervention seems to have been cataract surgery in some lumbar and cervical spine surgeries. Recent Antimicrobials: -Presently on vancomycin and Zosyn Medications: Reviewed Antimicrobial Allergies: No known antimicrobial allergies. Family History: Notable for cancer and heart disease Social History: Previous use of cigarettes but quit in 1997. No heavy alcohol or substance use. Review of Systems Denies any fever, chills, visual disturbance, oral problems, hearing issues, chest pain, palpitations, shortness of breath, nausea, vomiting, diarrhea, problems with urination, decreased sensation orstrength in any extremities, easy bruising or swollen lymph nodes, joint pains, muscle aches, or any changes in weight or sensation of temperature. Left foot bloody drainage as noted in HPI Physical Examination (63008: 2-7 organ systems or comprehensive single system exam; 03218/07203: 8 organ systems or comprehensive single system exam) .VitalsTemperature 97.6 (07:41) Systolic Blood Pressure 159 (08:20) Diastolic Blood Pressure 73 (08:20) Pulse 79 (07:42) SpO2 99 (07:41) Respiratory Rate 18 (11:18) GENERAL: In no acute distress HEENT: Anicteric, no subconjunctival petechiae, moist oral mucosa without lesions or thrush NECK: Neck supple, without cervical lymphadenopathy CARDIOVASCULAR: Not able to appreciate any murmurs, rubs, or gallops RESPIRATORY: Lungs clear to auscultation GASTROINTESTINAL: Non-distended, normoactive bowel sounds, non-tender GENITOURINARY: No CVAT MUSCULOSKELETAL: Without joint effusions, no tenderness over spine. Evaluation of the left foot noted it was draped in surgical bandages which we removed. The foot itself looked somewhat swollen compared to contralateral side there is some pink discoloration which was blanching and fairly similar to contralateral foot. Surgical incision over the lateral aspect of the foot at the base of the fifth toe noted with the most distal aspect open with what appeared to be wick coming from it. The bandages were saturated with blood in the wound itself was filled with block 2. I probed the wound with a Q-tip which barely went in half a centimeter and no contact with any bone. A fairly large clot that I did not remove. The only odor I was able to filler picker was the typical metallic smell of blood. On the right foot the patient has a small superficial wound over the medial aspect of the heel without any concerning findings. Patient does have some several scabbed lesions over the shins bilaterally without any other infectious concerns SKIN: No diffuse rash present, no stigmata of infective endocarditis NEUROLOGICAL/PSYCH: A&Ox3, significant diminished sensation of the lower extremities Results Review General results All Labs : LABORATORY 10/14/2022 2:11 EDT WBC 3.4 k/mm3 L RBC 3.56 m/mm3 L Hgb 9.5 Gm/dL L Hct 30.7 % L MCV 86.2 femtoliters MCH 26.7 pg L MCHC 30.9 g/dL L Platelet Count 105 k/mm3 L Sodium 141 mmol/L Potassium 3.9 mmol/L Chloride 103 mmol/L Bicarbonate Level 25 mmol/L Anion Gap 13 Glucose Level 163 mg/dL H BUN 17 mg/dL Creatinine-Blood 1.3 mg/dL H 10/13/2022 5:32 EDT WBC 3.8 k/mm3 L 10/12/2022 3:47 EDT WBC 4.0 k/mm3 10/10/2022 5:33 EDT WBC 5.4 k/mm3 Result type: MRI Ext Lower W+W/O Contrast Left Result date: October 11, 2022 2:45 EDT Result status: Auth (Verified) Result title: MRI Ext Lower W+W/O Contrast Left Performed by: Abraham Viera MD on October 11, 2022 8:24 EDT Verified by: Abraham Viera MD on October 11, 2022 8:24 EDT Encounter info: [id number], [facility], Inpatient, 10/08/2022 - * Final Report * Reason For Exam Infection;Infection RESULT: MRI Ext Lower W+W/O Contrast Left MR EXTREMITY LOWER WITH AND WITHOUT CONTRAST LEFT HISTORY: Evaluate for osteomyelitis. TECHNIQUE: Multiplanar multisequence MRI of the foot. Sequences obtained before and after the intravenous administration of 23 mL Clariscan. FINDINGS: Images are degraded by motion artifact. Marrow edema in the fifth metatarsal head and fifth proximal phalanx. No confluent low T1 marrow signal replacement Diffuse edema within the intrinsic foot musculature. Diffuse subcutaneous fat stranding and edema. IMPRESSION: Images are degraded by motion artifact No evidence of osteomyelitis at this time. Marrow edema within the fifth metatarsal head and fifth proximal phalanx may be reactive at this time as there is no confluent low T1 marrow signal replacement to suggest osteomyelitis Microbiology: Culture/Event_id: Tissue/Biopsy Culture/[id number] Collect date: 10/11/22 12:15 Result Status: Auth (Verified) Result Date: 10/14/22 10:35 SPECIMEN DESCRIPTION : TISSUE LEFT FOOT SPECIAL REQUESTS : NONE GRAM STAIN : 1+ WHITE BLOOD CELLS NO ORGANISMS SEEN CULTURE : 2+ STAPHYLOCOCCUS AUREUS, METHICILLIN RESISTANT. METHICILLIN RESISTANT STAPH AUREUS SHOULD BE CONSIDERED CLINICALLY RESISTANT TO ALL BETA-LACTAMS. Result reported to the [facility]. This isolate was identified using Maldi-TOF system These AST results were performed on the Microscan ID and AST system REPORT STATUS : FINAL 10/14/2022 Culture/Event_id: Blood Culture, Second Order/[id number] Collect date: 10/08/22 19:00 Result Status: Auth (Verified) Result Date: 10/13/22 23:00 SPECIMEN DESCRIPTION : BLOOD ARM L SPECIAL REQUESTS : NONE CULTURE : NO GROWTH 5 DAYS. REPORT STATUS : FINAL 10/13/2022 Culture/Event_id: Blood Culture/[id number] Collect date: 10/08/22 14:32 Result Status: Auth (Verified) Result Date: 10/13/22 23:00 SPECIMEN DESCRIPTION : BLOOD RA SPECIAL REQUESTS : NONE CULTURE : NO GROWTH 5 DAYS. REPORT STATUS : FINAL 10/13/2022 Impression and Plan Impression: This is a 72-year-old man with above-mentioned problems and comorbidities. Patient being evaluated because of left diabetic foot infection. It seems that the patient has been on broad-spectrum antibiotic therapy and already underwent extensive debridement, which is the ideal scenario. Although previous cultures that showed a completely susceptible MSSA, sensitive even to plain all penicillin, most recent culture seems to indicate presence of MRSA. Thankfully organism fairly susceptible and can transition to doxycycline once ready for discharge. For now can discontinue Zosyn and just continue therapy with vancomycin. Taking into account that the MRI only shows soft tissue involvement with no bony involvement and even evaluation by surgery seems to indicate that the bone did not appear to be part of the infection but extraction done given proximity and the patient's immunosuppressive status, possible that we might be able to treat this patient for the fairly short course of antibiotics. I would argue in favor of treating it as a complicated soft tissue infection for at the very least 2 weeks. At that time would repeat ESR and CRP and if they are essentially normalized, perhaps no further antibiotic therapymight be needed. If therapy improved but still somewhat elevated and the wound is perhaps not healing as quickly as 1 might expect, may extend therapy for an additional 2 weeks but do not believe patient requires full-blown osteomyelitis treatment given absence of objective findings for this diagnosis. Recommendations: -Discontinue Zosyn but continue vancomycin -Can transition to oral doxycycline once ready for discharge -Ongoing wound management as per surgical teams -Patient did have some significant bleeding from the wound, likely associated to heparin he is receiving. Defer further management to primary team/wound care Thank you for the consultation. Infectious Diseases will sign-off, please call with any questions or concerns. Disclaimer: This dictation was accomplished with use of [employer] voice recognition software, prone tomedical word misidentifications and grammatical errors. The physician does strive to identify and correct these, but some could still be present. Please do not hesitate to contact physician for clarifications. * Joana Appiah RN: PERFORM, SIGN, VERIFY Event Display: Consultation Note Authored Date: [id number] Patient: REJI THOMPSON Age: 72 years Sex: Male : 1950 Associated Diagnoses: None Author: Joana Appiah RN History of Presenting Problem Date of Service 10/14/2022 Reason for referral Wound: Description right medial heel diabetic foot wound full thickness skin loss Measures 1.4cm x 0.4cm x 0.4cm wound bed with 75% yellow slough and 25% red, viable tissue scant amount of yellow thin drainage without odor Edges regular; defined; attached; epibole Periwound with Betaine stained callus and desquamation No induration or fluctuance noted. +PP; toes cool/foot warm; +CMS denies pain due to neuropathy . right medial heel Received wound RN consult to assess right heel wound and provide appropriate topical wound care recommendations. Patient recently admitted to [facility] with c/o left foot pain and swelling. Taken to the ORon 10/11 for left foot wound debridement and 5th metatarsal head resection. Also underwent angiogramon 10/13. He has a PMH significant for ischemic cardiomyopathy with CHF, s/p heart transplant, DM, peripheral neuropathy, PVD and HTN Upon entry into patient's room, he is found lying in bed, alert and oriented x 3. His is present as well. Role of wound RN is explained and they are amenable to continuing with consult and photodocumentation. Report that wound started off as a blister that exploded back in April 2022 . He has been following with Dr Allred (seed cone picker) every other week. Currently applying Medihoney every other day at home ( performs). Existing dressing (dated 10/12/22) was removed so that his right heel wound could be visualized and is described as above. Spoke with patient and direct care RN regarding recommendations. Cortext message sent to Dr Lion. Of note, this is a chronic and dry wound. Would recommend changing topical wound care to cleansing with Vashe which will aid in removing microorganisms and debris from chronic wound. Topical Silvasorb gel will donate moisture and provide antimicrobial action. Described to patient and and they are agreeable with plan of care. Aware to follow up with Dr Allred upon hospital discharge. Recommendations: 1. Right heel- Apply Vashe moistened gauze to wound bed. Leave in place x 10 minutes. Remove gauze and pat dry. Apply Silvasorb gel to wound bed. Cover with dry gauze, wrap with horacio and secure withtape. Change every other day. 2. Continue to provide optimal nutritional support Please reconsult wound RN for deterioration in wound/skin status. Plan Recommendations Nutrition Plan Consult [employer] Melt Supervisor Maximize nutritional support Mobility Harish Score : Harish Score 10/13/2022 9:00 EDT Harish Score 19 10/12/2022 10:24 EDT Harish Score 18 Patient Teaching Discussed plan of care with patient Discussed plan of care with RN Time spent 31-45 minutes * Priest VIDES, Robert Marino: MODIFY, MODIFY, PERFORM Event Display: Consultation Note Authored Date: Patient: ??REJI THOMPSON ? Age:??72 Years?Sex:??Male?:??1950?? Chief Complaint/Reason for Consult Requesting Physician: Dr Mcmanus Consulted Physician: Dr Ovalle Reason for Consult: Left Diabetic Foot Infection History of Present Illness Reji Thompson is a 72 year old male with PMH significant for BPH, CAD s/p CABG, CO, ICM s/p heart transplant (04/2013, [facility]), CKD III, DM, GBS, glauoma, DAY, venous thrombosis and LLE DVT (on Eliquis), SCC, ARNULFO and??tremor who presented to the ED for left??diabetic foot infection.?? Pt??reports that he developed pain and redness the day prior to presented.?? He then noted pus from around his left fifth toe.?? He denies any fever or chills nor any trauma to his foot.?? X-ray was negative for osteomyelitis and MRI is pending.?? He recently had right SFA angioplasty on 08/15/[address] Hopkins.?? Given these results, a vascular surgery consult was requested.?? Review of Systems Constitutional:??No weight loss, fever, chills, weakness or fatigue. Allergy/Immune: Denies any??Eczema or hives Eyes:??No visual loss, blurred vision, double vision or yellow sclera ENT:??No hearing loss, sneezing, congestion, runny nose or sore throat. Respiratory:??No shortness of breath, cough or sputum production. Cardiovascular:??No chest pain, chest pressure or chest discomfort. No palpitations or pedal edema. Gastrointestinal:??No anorexia, nausea, vomiting or diarrhea. No abdominal pain or blood in stool. Genitourinary:??No burning micturition. No urinary frequency or incontinence. Neurologic:??No headache, dizziness, syncope, unilateral weakness, ataxia, numbness or tingling in the extremities. Musculoskeletal:??No muscle pain, back pain, joint pain or stiffness. Hematologic/Lymphatics:??No bleeding or bruising. No painful lymph nodes. Skin:??No rash or itching. Endocrine:??No reports of sweating. No cold or heat intolerance. No polyuria or polydipsia. Psychiatric:??No depression or anxiety. Physical Exam Vitals & Measurements T:??98.3?F?? HR:??84??(Peripheral)?? RR:??16?? BP:??140/70?? SpO2:??95%?? HT:??173??cm?? WT:??106.3??kg?? BMI:??35.52?? General appearance: No apparent distress, appears stated age, well developed. Head: Normocephalic, atraumatic. Cardiac: RRR, no murmurs or gallops. Respiratory: Clear to auscultation bilaterally. Abdomen: Soft, nontender, nondistended. No guarding or rebound. No palpable mass. Skin: Right heel with medial fissure, healing.?? Left lateral 5th MTP joint with pus draining, no fluctuance or crepitus.?? Extremities: Able to move all extremities without difficulty. Warm and well perfused. Neurologic status: Alert and oriented x 3. No focal deficits. Psych: Mood and affect normal. Vascular:??Palpable femorals, BP AT/PT and MP DP bilaterally.?? Assessment/Plan Reji Thompson is a 72 year old male with worsening left diabetic foot infection.?? X-ray negative forosteomyelitis and MRI pending.?? Given pus that is draining, he will need at minimum a debridement.?? He will also need LLE angiogram.?? He has been afebrile with no leukocytosis.? Recommendations: - No acute surgical intervention - Hold Eliquis - Tight glycemic control - DSD and Kerlix wrap to bilateral feet - SYDNEE and LLE arterial duplex (ordered) - Follow up MRI - Rest of care as per primary team ?? Thank you for this consult.?? Vascular will follow.?? Recs conveyed via Cortext.?? [id number] ?? Discussed with Dr Ovalle ? Problem List/Past Medical History Ongoing AICD (automatic cardioverter/defibrillator) present BMI 33.0-33.9,adult BPH - [facility] CAD; s/p CABG 1997, [place] 2006 w/stent; heart transplant 04/30 Chronic kidney disease stage 3 Colon polyp Diabetes mellitus with cataract Diabetes mellitus with PVD; stents; [facility] Dry eyes DVT, lower extremity Dysautonomia Erectile [...] drop Leukopenia Low back pain Microscopic hematuria; [facility] Neck pain Neuropathy due to diabetes mellitus Obstructive sleep apnea syndrome Osteopenia - minimal, on DXA 08/01 Peripheral neuropathy Presbyesophagus Pure hypercholesterolemia Severe obesity (BMI 35.0-39.9) with comorbidity Tremor - Neurology at [facility] Type 2 DM with renal manifestations; [facility] Unsteady gait Procedure/Surgical History Esophagogastroduodenoscopy with biopsy & esophageal dilation: 12/06/21 Operation on lumbar spine: 09/21/20 Surgical procedure on cervical spine: 12/10/19 Insertion of popliteal artery stent: 2019 Insertion of popliteal artery stent: 2017 Cataract surgery - R: 09/18/14 Heart transplant: 04/17/13 LVAD - Implantation of left ventricular assist device: 2011 CABG - Coronary artery bypass graft: 1997 Excision of squamous cell carcinoma Home Medications Acetaminophen/Butalbital/Caffeine: 1 capsule, By Mouth, Every 6 hours, PRN (Headache) Amlodipine: 5 mg = 1 tablet, By Mouth, Daily apixaban: 10 mg = 2 tablet, By Mouth, 2 times a day, Please take 10mg twice a day for 6 days (through 09/18/22) and then take 5mg twice a day starting 09/19/22 Aspirin: 81 mg = 1 tablet, By Mouth, Daily Cholecalciferol: 1,250 mcg = 1 capsule, By Mouth, Every week Duloxetine: 20 mg = 1 capsule, By Mouth, 2 times a day Durable Medical Equipment (Freestyle Nona Monitor): See Instructions, Use with Freestyle 14 day Sensor to monitor Blood Glucose. ??E11.65 Durable Medical Equipment Durable Medical Equipment: See Instructions, use as directed for Type 2 Diabetes Mellitus for 5 injections per dayE11.9 Durable Medical Equipment: See Instructions, e11.65, use with freestyle nona 14 day reader for frequent glucose monitoring, change every 14 days, 28 day supply Fludrocortisone Fluticasone Nasal Gabapentin: 1 capsule, By Mouth, 3 times a day insulin degludec: See Instructions, 42 units in the AM and 52 units in the PM 90 days supply Insulin Lispro: See Instructions, INSERT CARTRIDGE INTO INPEN DEVICE AND INJECT ??SUBCUTANEOUSLY 16UNITS 3 ??TIMES DAILY WITH MEALS - ??MAX DAILY DOSE: 48 UNITS Miscellaneous Rx (Rx: Physical Therapy): See Instructions, Rx: Physical TherapyDx: Frequent falls, deconditioning Miscellaneous Rx (Basic Metabolic Panel): See Instructions, Please send results to Dr. Dung Bains: N18.30please obtain within 1 week of 09/12/22 Mycophenolate Sodium: 720 mg = 2 tablet, By Mouth, 2 times a day Pantoprazole: 1 tablet, By Mouth, 2 times a day PredniSONE: 5 mg = 1 tablet, By Mouth, Daily Rosuvastatin: 20 mg = 1 tablet, By Mouth, Daily Sucralfate: 1 Gm = 1 tablet, By Mouth, 2 times a day Tacrolimus: 2.5 mg = 2.5 capsule, By Mouth, 2 times a day, 3 in the AM & 3 in the Evening Trazodone: 200 mg = 2 tablet, By Mouth, Daily at bedtime, PRN (Insomnia) Allergies lisinopril Social History Alcohol Use: Never. Electronic Cigarette/Vaping Electronic Cigarette Use: Never. Employment/School Status: Retired. Home/Environment Living situation: Home/Independent. Lives with: Spouse. Nutrition/Health Diet: Regular. Sexual Gender identity: Identifies as male. Substance Abuse Use: Never. Tobacco Use: Former smoker, quit more than 30 days ago. Family History Mother (): Cancer; Cataract; Macular degeneration of both eyes Father (): Cancer Brother: Cancer of prostate Lab Results Labs Last 24 Hours BLOOD COUNT & DIFF ? Event Name?? Event Result?? Date/Time?? WBC 5.4 k/mm3 10/10/22 05:33:00 RBC 4.15 m/mm3??Low 10/10/22 05:33:00 Hgb 11.3 Gm/dL??Low 10/10/22 05:33:00 Hct 36.2 %??Low 10/10/22 05:33:00 MCV 87.2 femtoliters 10/10/22 05:33:00 MCH 27.2 pg 10/10/22 05:33:00 MCHC 31.2 g/dL??Low 10/10/22 05:33:00 Platelet Count 105 k/mm3??Low 10/10/22 05:33:00 MPV 10.1 femtoliters 10/10/22 05:33:00 Nucleated RBC (Automated) 0 #/100 WBC'S 10/10/22 05:33:00 ? CHEM GENERAL ? Event Name?? Event Result?? Date/Time?? Sodium 142 mmol/L 10/10/22 05:33:00 Chloride 102 mmol/L 10/10/22 05:33:00 Bicarbonate Level 26 mmol/L 10/10/22 05:33:00 Anion Gap 14 10/10/22 05:33:00 BUN 22 mg/dL 10/10/22 05:33:00 Creatinine-Blood 1.2 mg/dL 10/10/22 05:33:00 Phosphorus 3.2 mg/dL 10/10/22 05:33:00 Magnesium 1.6 mg/dL 10/10/22 05:33:00 ? Radiology * Event Display: HV IR Angiogram Lower Extremity Artery Authored Date: [id number] Peripheral Diagnostic Report Demographics Patient Name BHAVANA MENDOZA Gender Male [employer] Room Number M610 Height 68.11 inches Date of 1950 Weight 231.49 pounds Age 72 year(s) BSA 2.18 m2 Accession Number [id number] BMI 35.08 kg/m2 Referring Physician Belkis Ovalle MD Date of Study 10/13/2022 Performing Physician Belkis Ovalle MD Fellow Interventional Physician Belkis Ovalle MD Procedure Procedure Type Peripheral Cath Diagnostic Procedure:Arteriography, Extremity Angiography Lower Extremity , Left LE Miscellaneous:ULTRASOUND GUIDANCE Indications Additional Indications: wounds Clinical History Procedure Data Procedure Date Date: 10/13/2022Start: 09:05End: 10:25 The procedure was explained in detail to the patient. Risks, complications and alternative treatments were reviewed. Written consent was obtained. Entry Locations - Percutaneous access was performed through the Right Femoral artery. A 4 Fr sheath was inserted. This was exchanged for a 5 Fr sheath. Hemostasis was successfully obtained using Mynx closure device. Procedure Medications - Lidocaine 1% S.C. Right groin 5 ml. Sedation: A separate physician or qualified healthcare provider administered the sedation services. Refer to separate documentation in patient's record. Contrast Material - Omnipaque 34 ml Diagnostic Catheters - [id number] .038 SOFT-VU OMNI FLUSH CATHETERwas advancedto theAorta. Fluoroscopy Time: Diagnostic: 5:18 minutes. Total: 5:18 minutes. Fluoroscopy Dose: Diagnostic: 153 mGy. Total: 153 mGy. Dose Area Product:Diagnostic: 39281 mGy/cm2. Total: 74546 mGy/cm2. Dose Area Product:Diagnostic: 6549.1 ??Gy/m2. Total: 6549.1 ??Gy/m2. Procedure Narrative Indication: 72-year-old male with peripheral vascular disease and a left diabetic foot infection. Procedure: The patient was brought back to the endovascular suite and placed on the table in the supine position. He was prepped and draped in standard sterile fashion using chlorhexidine prep and full barrier precautions. A time out was completed. Ultrasound was used to identify the right common femoral artery. Lidocaine was injected into the skin and subcutaneous tissues. Using ultrasound guidance, the micropuncture needle was used to access the femoral artery retrograde. The Frontier wire was placed and the transitional sheath was advanced over the Frontier wire. I dosed the patient with 5000 units of heparin IV. The Versacore wire was then placed into the transitional sheath and advanced into the abdominal aorta. The transitional sheath was removed and a short 4F sheath was placed. The Omniflush catheter was then placed into the abdominal aorta and an aortogram was completed. Following the aortogram, the left iliac artery was selected with the Omniflush and glide wire and the Omniflush was advanced into the distal external iliac artery where an angiogram was completed of the left leg. Findings: 1. Patent distal abdominal aorta, bilateral common iliac arteries, and bilateral internal and external iliac arteries. 2. Patent left common femoral artery, profunda femoris artery, and superficial femoral artery. 3. There is nonocclusive plaque noted in the proximal popliteal artery on the left leg. He has evidence of prior stent placement in the mid popliteal artery which is patent with recurrent/residual stenosis of approximately 20 to 30%. 4. Three-vessel runoff to the left foot. Blood flow to the left foot was brisk and popliteal atherosclerosis did not inhibit flow. No intervention was completed. I upsized to a 5 Dutch sheath in the right common femoral artery and closed the arteriotomy with a Mynx device. A sterile dressing was applied and the patient was brought to recovery in satisfactory condition. Hemodynamics Condition: Rest O2 Consumption: Estimated: 294.30 Shunts Oxygen Values O2 Consumption 294.3 Conclusions Signatures * Event Display: HV IR Angiogram Lower Extremity Artery Authored Date: [id number] Patient Care team information Care Team Personnel Name: Franklin Siri Position: [facility] RN Member Role: Primary Care Nurse Name: Nenita Song Position: [facility] RN Supv Member Role: Primary Care Nurse Name: Sherice Mariscal RN Position: [facility] RN Member Role: Primary Care Nurse Name: Najma Michael RN Position: [facility] RN Member Role: Primary Care Nurse Name: Mallory Masterson NP Position: Reference Physician Member Role: Primary Care Nurse Address: Address: [address] [place] [address]- [place] Name: Scarlet Rosenthal RN Position: [facility] SN RN Member Role: Primary Care Nurse Name: Khurram Hansen RN Position: [facility] RN Member Role: Primary Care Nurse Name: Dung Chen MD Position: [facility] Physician - Primary Care Member Role: PCP Address: Address: [address] [place] [address]- [place] Name: Heydi Oviedo RN Position: [facility] Dairy Frozen Manager Member Role: Primary Care Nurse Name: Sandra Cat Position: [facility] Outreach Member Role: Lifetime Consulting Physician Name: Nicki Garcia RN Position: [facility] RN Member Role: Primary Care Nurse Name: Vane Davalos RN Position: [facility] RN Member Role: Primary Care Nurse Name: Luis Peters MD Position: [facility] Renal MD Member Role: Lifetime Consulting Physician Address: Address: [address] [place] [address] [address] [facility] [place] [address]- [place] Name: Zulma Martinez MD Position: [facility] Cardiology MD Member Role: Lifetime Consulting Physician Address: Address: [address] [place] [address]- [place] Name: Evelyn Jean-Baptiste RN Position: [facility] RN Member Role: Primary Care Nurse Name: Hilda Mcdonald RN Position: [facility] RN Member Role: Primary Care Nurse Name: Levi Clement RN Position: [facility] ED RN W/OE and Tasks Member Role: Patient Care Provider Name: Concepcion Jackson Position: [facility] ED OA Charge Member Role: ED Magnetic Tape Composer Operator Name: Lea Irving MD Position: [facility] Resident Member Role: ED Resident Address: Address: [address] [place] [address] Name: Kenton Singer Position: [facility] ED TA [facility] Member Role: Patch Setter Name: Vitaliy Schmitt DO Position: [facility] ED Medicine MD Member Role: ED Physician Address: Address: [address] [place] [address]- Care Team Related Persons Name: LUCIA THOMPSON Address: [place] [address]
--- OUTSIDE RECORDS SUMMARY | 2023-05-15 08:56 | XMS_ITS | Continuity of Care Document ---
Author Name Unknown Organization [facility] Address [address] [place] [address]- Care Team Providers Care Night Time Babysitter Name Role Phone Gustavo CALLOWAY, Dung Primary Care Physician Encounter [facility] [place] Date(s): 02/04/21 - 02/11/21 [facility] [address] [place] [address] Attending Physician: Tavon VIDES, Alciia Whitley Admitting Physician: Tavon VIDES, Alicia Whitley [...] received this seasons flu vaccine at [place]. 3Admin Note: Patient states he received pneumovax in 2004 at [place]. Medications aspirin 81 mg oral tablet 1 tablet = 81 mg, By Mouth, Daily, # 30 tablet, 0 Refills, Maintenance, 04/07/17 12:54:17, Tablet Start Date: 04/07/17 Status: Ordered Ativan 1 mg oral tablet See Instructions, 1 tablet By Mouth 30 minutes before MRI. May repeat once at time of test., # 2 tablet, 0 Refills, Maintenance, 08/17/20 17:02:00 EDT, [id number], Partial fill upon patient request if the [...] Refills, Maintenance, 06/09/19 9:51:00 EST, EC Capsule, [facility]/pharmacy #[id number], 175, cm, 12/05/18 [...] 11/02/20 13:16:00 EDT, Route to Pharmacy Electronically, [facility], 176, cm, 08/17/20 16:06:00 EDT, Height, 94.72, kg, 10/09/19 14:08:00 EDT, Dry We... Start Date: 11/02/20 Status: Ordered Lantus Solostar Pen 100 units/mL subcutaneous solution = 70 units, Subcutaneous Injection, Daily, = 70 units, Subcutaneous Injectin, Daily. E11.65. 90 daysupply rotate injection sites, # 90 mL, 3 Refills, Maintenance, 09/25/20 10:26:00 EDT, Solution, [facility], , 176, cm... Start Date: [...] Compound Start Date: 10/15/18 Status: Ordered Pen [place], 31 G x 5 mm BD Ultra Fine III See Instructions, # 120 each, Refills 6, Tot. Refills 6, Maintenance, injects 4 times a day E11.65,08/24/20 9:11:00 EDT, fax [phone], Compound, 176, cm, 08/17/20 16:06:00 EDT, Height, 94.72, kg, 10/09/19 14:08:00 EDT, Dry Weight Start Date: 08/24/20 Status: Ordered Plavix 75 mg oral tablet 75 mg, 1, tablet, By Mouth, Daily, # 90 tablet, Refills 3, Tot. Refills 3, Maintenance, 01/28/20 14:36:00 EDT, Route to Pharmacy Electronically, [facility]/pharmacy #[id number], 176, cm, 01/06/20 [...] 05/27/19 16:08:00 EST, Route to Pharmacy Electronically, [facility]/pharmacy #[id number], 175, cm, 12/05/18 [...]
--- OUTSIDE RECORDS SUMMARY | 2023-05-15 08:56 | XMS_ITS | Continuity of Care Document ---
Author Name Unknown Organization [facility] Address [address] [place] [address]- Care Team Providers Care Survey Chief Name Role Phone Dung Chen MD Primary Care Physician Encounter [facility] Date(s): 06/24/20 - 07/01/20 [facility] [address] [place] [id number] Attending Physician: Tavon VIDES, Alicia Whitley Admitting [...] received this seasons flu vaccine at [place]. 3Admin Note: Patient states he received pneumovax in 2004 at [place]. Medications aspirin 81 mg oral tablet 1 [...] 05/19/20 10:59:00 EST, Route to Pharmacy Electronically, [facility]/pharmacy #[id number], [...] 01/28/20 14:36:00 EDT, Route to Pharmacy Electronically, [facility]/pharmacy #[id number], 176, cm, 01/06/20 19:56:00 EDT, Height, [...] oldest [Reference Range]: 1 Height 176 cm (06/24/20 2:19 PM) Weight 90.0 kg (06/24/20 2:19 PM) Pulse Rate [55-90 bpm] 80 bpm (06/24/20 2:19 PM) Body Mass Index [18.5-24.99] 29.05 *H* (06/24/20 2:19 PM) Blood Pressure [90-138/55-84 mm Hg] 130/ 74mm Hg (06/24/20 2:19 PM) Blood pressure sites Arm, right (06/24/20 2:19 PM) Social History Social History Type Response Smoking Status Former smoker; Tobac co user in household: No; Other: Quit 1997; entered on: 03/08/17 Sex
--- OUTSIDE RECORDS SUMMARY | 2023-05-15 08:56 | XMS_ITS | Continuity of Care Document ---
Author Name Unknown Organization [facility] Address [address] [place] [address]- Care Team Providers Care Army Manager Name Role Phone Dung Chen MD Primary Care Physician [place] [facility] [place]11[place] 07/18/19 [facility] [address] [place] [address]- [facility] Attending Physician: Felix Duque MD Admitting Physician: Felix Duque MD Referring Physician: Magdy Gutiérrez MD, V Allergies, Adverse Reactions, Alerts Substance Reaction Severity [...] he received this seasons flu vaccine at [place]. 3Admin Note: Patient states he received pneumovax in 2004 at [place]. Medications aspirin 81 mg oral tablet 1 [...] Maintenance, 06/09/19 9:51:00 EST, EC Capsule, [facility]/pharmacy #[id number], 175, cm, 12/05/18 [...] 16:08:00 EST, Route to Pharmacy Electronically, [facility]/pharmacy #[id number], 175, cm, 12/05/18 15:23:00 EDT, Height, 84.5, [...] oldest [Reference Range]: 1 Height 175 cm (07/11/19 4:30 PM) Weight 92.0 kg (07/11/19 4:30 PM) Pulse Rate [55-90 bpm] 88 bpm (07/11/19 4:30 PM) Body Mass Index [18.5-24.99] 30.04 *>HHI* (07/11/19 4:30 PM) Blood Pressure [90-138/55-84 mm Hg] 150/ 82mm Hg *H* (07/11/19 4:30 PM) Blood pressure sites Arm, right (07/11/19 4:30 PM) Weight Obtained Via Patient/family state d (07/11/19 4:30 PM) Social History Social History Type Response Smoking Status Former smoker; Tobac co user in household: No; Other: Quit 1997; entered on: 03/08/17 Sex
--- OUTSIDE RECORDS SUMMARY | 2023-05-15 08:56 | XMS_ITS | Continuity of Care Document ---
Author Name Unknown Organization [facility] Address [address] [place] [address]- Care Team Providers Care Power Plant Electrician Name Role Phone Dung Chen MD Primary Care Physician Encounter [facility] [place] Date(s): 06/09/21 - 07/09/21 [facility] [address] [place] [id number] Allergies, Adverse Reactions, Alerts Substance [...] he received this seasons flu vaccine at [place]. 3Admin Note: Patient states he received pneumovax in 2004 at [place]. Medications aspirin 81 mg oral delayed release tablet 81 mg, 1, tablet, By Mouth, Daily, # 30 tablet, Refills 0, Tot. Refills 0, Maintenance, 06/08/21 11:45:00 EST, Route to Pharmacy Electronically, [facility]/pharmacy #[id number], Partial fill upon patient request if the prescription is for a schedule II opioid drug... Start Date: 06/08/21 Stop Date: 07/08/21 Status: Ordered Carafate 1 gm oral tablet 2 Gm, 2, tablet, By Mouth, 4 times a day, # 240 tablet, Refills 0, Tot. Refills 0, Maintenance, 06/08/21 11:45:00 EST, Route to Pharmacy Electronically, [facility]/pharmacy #[id number], Partial fill upon patient request if [...] 16:08:00 EST, Route to Pharmacy Electronically, [facility]/pharmacy #[id number], 175, cm, 12/05/18 15:23:00 EDT, Height, [...]
--- OUTSIDE RECORDS SUMMARY | 2023-05-15 08:56 | XMS_ITS | Continuity of Care Document ---
Author Name Unknown Organization [facility] Address [address] [place] [address]- Care Team Providers Care Pest Management Supervisor Name Role Phone Dung Chen MD Primary Care Physician [phone] Encounter [facility] [place] Date(s): 06/11/21 - 07/11/21 [facility] [address] [place] [address]- [place] Allergies, Adverse Reactions, Alerts Substance Reaction [...] he received this seasons flu vaccine at [place]. 3Admin Note: Patient states he received pneumovax in 2004 at [place]. Medications aspirin 81 mg oral delayed release tablet 81 mg, 1, tablet, By Mouth, Daily, # 30 tablet, Refills 0, Tot. Refills 0, Maintenance, 06/08/21 11:45:00 EST, Route to Pharmacy Electronically, [facility]/pharmacy #[id number], Partial fill upon patient request if the [...] 05/27/19 16:08:00 EST, Route to Pharmacy Electronically, [facility]/pharmacy #[id number], 175, cm, 12/05/18 [...]
--- OUTSIDE RECORDS SUMMARY | 2023-05-15 08:56 | XMS_ITS | Continuity of Care Document ---
Author Name Unknown Organization [facility] Address [address] [place] [address]- Care Team Providers Care Chemical Plant Technical Director Name Role Phone Dung Chen MD Primary Care Physician Encounter [facility] [place] [place] Date(s): 01/05/23 - 02/04/[address] [address] Attending Physician: AdmScott simmons Admitting Physician: Admtr, Scott Referring Physician: Admtr, Ar8 Allergies, Adverse Reactions, Alerts Substance Reaction Severity Status lisinopril Active Immunizations Given and Recorded Vaccine Date Status Refusal Reason tetanus/diphtheria/pertussis, acel(Tdap) 1 12/08/22 Given tetanus/diphtheria/pertussis, acel(Tdap) 03/27/12 Recorded pneumococcal 20-valent conjugate vaccine 2 12/08/22 Given [id number] 12y+ bivalent booster vax 04/15/22 Recorded influenza [...] vaccine, inactivated 03/07/06 Quinn rded SARS-CoV-2 mRNA ([id number]) vax 07/18/21 Recorded SARS-CoV-2 (COVID-19) mRNA BNT-162b2 [...] Vacc (oldterm) 5 07/14/04 Given 1Result Comment: [facility] [id number] 2Result Comment: [facility] [id number] 3Result Comment: Lot # [id number] Exp. #) SEP 23 4Admin Note: Pt states he received this seasons flu vaccine at [place]. 5Admin Note: Patient states he received pneumovax in 2004 at [place]. Medications amLODIPine 10 mg oral tablet 10 mg, 1, tablet, By Mouth, Daily, # 90 tablet, Refills 3, Tot. Refills 3, Maintenance, 11/03/22 11:30:00 EDT, Route to Pharmacy Electronically, [facility] Partial fill upon patient request if the prescription is for... Start Date: 11/03/22 Status: Ordered aspirin 81 mg oral delayed release tablet 81 mg, 1, tablet, By Mouth, Daily, # 30 tablet, Refills 0, Tot. Refills 0, Maintenance, 06/08/21 11:45:00 EST, Route to Pharmacy Electronically, [facility]/pharmacy #[id number], Partial fill upon patient request if the [...] 3 Refills, Maintenance, 01/19/23 18:26:00 EDT, [facility] [place],[facility], Partial fill upon patient request if the prescription is for a schedule II opioid drug., 1 sprays Nares, Both Daily, 173, cm, 100... Start Date: 01/19/23 Status: Ordered Freestyle Nona 2 [place] Freestyle Nona 2 [place], See Instructions, # 1 each, Refills 0, [...] Tot. Refills 13, Maintenance, e11.65, use with Mevvystyle nona 14 day reader for frequent glucose [...] Maintenance, 08/23/22 12:58:00 EDT, [facility] ([facility]), 176, cm... Start Date: 08/23/22 Status: Ordered insulin degludec (concentrated) 200 units/mL subcutaneous solution See Instructions, 30 units in the AM and 30 units in the PM 30 days supply, # 75 mL, 3 Refills, Maintenance, 10/15/22 10:03:00 EDT, [facility], Partial fill upon patient request if [...] Weight Start Date: 08/17/22 Status: Ordered Pen [place], 31 G x 8 mm BD Ultra Fine III See Instructions, # 300 each, Refills 6, Tot. Refills 6, Maintenance, use as directed for Type 2 Diabetes Mellitus for 5 injections per day E11.9, 12/09/21 9:52:00 EDT, Supply, 175.3, cm, 12/06/21 7:36:00 EDT, Height, 95.3, kg, 12/06/21 7:36:00 EDT... Start Date: 12/09/21 Stop Date: 08/31/23 Status: Ordered Pen [place], 32 G x 4 mm BD Ultra [...] Route to Pharmacy Electronically, [facility] ([facility]), 173, cm, 10/12/22 19:31:00 EDT, Height, 106.... Start Date: 10/12/22 Status: Ordered Trulicity Pen 0.75 mg/0.5 mL subcutaneous solution 0.5 mL = 0.75 mg, Subcutaneous Injection, Every week, rotate injection sites, # 6 mL, 0 Refills, Maintenance, 12/08/22 11:17:00 EDT, Solution, [facility] ([facility]), Partial fillupon patient request [...] capsule, 0 Refills, Maintenance, 06/08/22 12:19:00EST, Capsule, [facility]/pharmacy #[id number], Partial fill upon patient [...] Active Diabetes mellitus with PVD; stents; [facility] [place] [facility] Confirmed Active Diabetes mellitus [...] 01/24/14 Active History of SCC in situ; [place] [facility] Confirmed 11/06/20 Active History of venous [...] Confirmed Active Tremor - Neurology at [facility] Confirmed 02/07/18 Active Type 2 DM with renal manifestations; [facility] Confirmed 05/04/16 Active 1EF 20-25% prior to transplant Social History Social History Type Response Smoking Status Former smoker, quit more than 30 days ago entered on: 10/24/22 Sex Patient Care team information Care Team Personnel Name: Nenita Song Position: [facility] RN Supv Member Role: Primary Care Nurse Name: Sherice Mariscal RN Position: [facility] RN Member Role: Primary Care Nurse Name: Najma Michael RN Position: [facility] RN Member Role: Primary Care Nurse Name: Mallory Masterson NP Position: Reference Physician Member Role: Primary Care Nurse Address: Address: [address] [place] [address]- [place] Name: Scarlet Rosenthal RN Position: [facility] SN RN Member Role: Primary Care Nurse Name: Dung Chen MD Position: [facility] Physician - Primary Care Member Role: PCP Address: Address: [address] [address]- [place] Name: Heydi Oviedo RN Position: [facility] Hospital 2Nd Grade Teacher Member Role: Primary Care Nurse Name: Sandra Cat Position: [facility] Outreach Member Role: Lifetime Consulting Physician Name: Nicki Garcia RN Position: [facility] RN Member Role: Primary Care Nurse Name: Vane Davalos RN Position: [facility] RN Member Role: Primary Care Nurse Name: Beilnda Stevenson RN Position: [facility] SN RN Member Role: Primary Care Nurse Name: Luis Peters MD Position: [facility] Renal MD Member Role: Lifetime Consulting Physician Address: Address: [address] [facility] [address] [facility] [place] [address]- [place] Name: Zulma Martinez MD Position: [facility] Cardiology MD Member Role: Lifetime Consulting Physician Address: Address: [address] [place] [address] [place] [address]- [place] Name: Evelyn Jean-Baptiste RN Position: [facility] RN Member Role: Primary Care Nurse Name: Hilda Mcdonald RN Position: [facility] RN Member Role: Primary Care Nurse Care Team Related Persons Name: BATEMAN LUCIA Address: home [address] [place] [address]
--- OUTSIDE RECORDS SUMMARY | 2023-05-15 08:56 | XMS_ITS | Continuity of Care Document ---
Author Name Unknown Organization [facility] [place] Address [address] [place] [address]- Care Team Providers Care Senior Cyber Security Analyst Name Role Phone Dung Chen MD Primary Care Physician [phone] Encounter [facility] Date(s): 10/30/19 - 11/29/19 [facility] [place] [address] [place] [address]- [facility] Allergies, Adverse Reactions, Alerts Substance Reaction Severity [...] he received this seasons flu vaccine at [place]. 3Admin Note: Patient states he received pneumovax in 2004 at [place]. Medications aspirin 81 mg oral tablet 1 [...] Maintenance, 06/09/19 9:51:00 EST, EC Capsule, [facility]/pharmacy #[id number], 175, cm, 12/05/18 15:23:00 [...] EC Tablet Start Date: 04/07/17 Status: Ordered Yek MobileTouch Verio Test Strips See Instructions, # 300 [...] 16:08:00 EST, Route to Pharmacy Electronically, [facility]/pharmacy #[id number], 175, cm, 12/05/18 15:23:00 [...]
--- OUTSIDE RECORDS SUMMARY | 2023-05-15 08:56 | XMS_ITS | Continuity of Care Document ---
Author Name Unknown Organization [facility] Address [address] [place] [address]- Care Team Providers Care Car Wash Supervisor Name Role Phone Dung Chen MD [phone] 05/12/22 - 05/19/22 [facility] [address] [place], [place] [address] Encounter Diagnosis History of cellulitis(Discharge Diagnosis) - 05/14/22 Headache(Discharge Diagnosis) - 05/14/22 Heart transplant status(Discharge Diagnosis) - 05/14/22 Attending Physician: Dung Chen MD Allergies, Adverse Reactions, Alerts Substance Reaction Severity Status lisinopril Active Immunizations Given and Recorded Vaccine Date Status Refusal Reason SARS-CoV-2 mRNA (agldkec-yqmo-udfxj) vax 07/18/21 Recorded SARS-CoV-2 (COVID-19) mRNA BNT-162b2 [...] he received this seasons flu vaccine at [place]. 3Admin Note: Patient states he received pneumovax in 2004 at [place]. Medications amLODIPine 5 mg oral tablet 5 mg, 1, tablet, By Mouth, Daily, # 90 tablet, Refills 1, Tot. Refills 1, Maintenance, 05/12/22 11:54:00 EST, Route to Pharmacy Electronically, [facility] ([facility] ), Partial fill upon patient request if the prescription is for a... Start Date: 05/12/22 Status: Ordered aspirin 81 mg oral delayed release tablet 81 mg, 1, tablet, By Mouth, Daily, # 30 tablet, Refills 0, Tot. Refills 0, Maintenance, 06/08/21 11:45:00 EST, Route to Pharmacy Electronically, [facility]/pharmacy #[id number], Partial fill upon patient request if the [...] 02/03/22 9:07:00 EDT, Route to Pharmacy Electronically, [facility] ([facility]), 175.3, cm, 01/03/22 13:47:00 EDT, [...] Weight Start Date: 04/03/22 Status: Ordered Pen Ketchum, 31 G x 8 mm BD Ultra Fine III See Instructions, # 300 each, Refills 6, Tot. Refills 6, Maintenance, use as directed for Type 2 Diabetes Mellitus for 5 injections per day E11.9, 12/09/21 9:52:00 EDT, Supply, 175.3, cm, 12/06/21 7:36:00 EDT, Height, 95.3, kg, 12/06/21 7:36:00 EDT... Start Date: 12/09/21 Stop Date: 08/31/23 Status: Ordered Pen [place]etchum, 32 G x 4 mm BD Ultra [...] 05/12/22 11:54:00 EST, Route to Pharmacy Electronically, [facility] ([facility] ), 175, cm, 05/12/22 11:49:00 [...] r) present Confirmed 06/21/05 Active BPH - [facility]rology Confirmed 03/14/21 Active Chronic kidney disease stage 3 Confirmed 05/17/11 Active CAD; s/p CABG 1997, [place] 2006 w/stent; heart transplant 04/30 Confirmed Active Diabetes mellitus with PVD; stents; [facility] Confirmed Active Diabetes mellitus with cataract [...] back pain Confirmed 06/15/15 Active Microscopic hematuria; [facility] Confirmed Active Neck pain Confirmed [...] Confirmed 06/21/05 Active Tremor - Neurology at [facility] Confirmed 02/07/18 Active Type 2 DM with renal manifestations; [facility] Confirmed 05/04/16 Active 1EF 20-25% prior to transplant Diagnosis Diagnosis Type Effective Dates Health Status Clinical Service Informant History of cellulitis Discharge Diagnosis 05/14/22 Headache Discharge Diagnosis 05/14/22 Heart transplant status Discharge Diagnosis 05/14/22 Vital Signs Most recent to oldest [Reference Range]: 1 2 Height 175 cm (05/12/22 11:49 AM) 175 cm (05/12/22 11:05 AM) Weight 104.1 kg (05/12/22 11:05 AM) Oxygen Saturation [94-100 %] 97 % (05/12/22 11:05 AM) Pulse Rate [55-90 bpm] 93 bpm *H* (05/12/22 11:05 AM) Body Mass Index [18.5-24.99 kg/m2] 33.99 kg/m2 *>HHI* (05/12/22 11:05 AM) Blood Pressure [90-138/55-84 mm Hg] 110/ 70mm Hg (05/12/22 11:49 AM) 134/72mm Hg (05/12/22 11:05 AM) Blood pressure sites Arm, right (05/12/22 11:05 AM) Social History Social History Type Response Smoking Status Former smoker, quit more than 30 days ago entered on: 06/01/21 Sex Note * Jacqueline Navas: PERFORM, SIGN, VERIFY Event Display: Patient Education/Instruction Authored Date: [id number] [facility] Clinical Summary Name REJI BATEMAN Age 71 Years 1950 PCP Dung Chen MD PCP Visit Date 05/12/2022 10:26:00 Additional Instructions: Scheduled Appointments?? Future Appointments ?*[facility]??Endocrine ?[address]??[place],??[place],??[address] ?Phone:??--?Fax:??-- ?Appt. Date:??06/21/2022?8:25 AM ?Scheduled Provider:??Sada Oviedo MD ?*[facility]Ped ?[address]??[place],??[place],??[address] ?Phone:??--?Fax:??-- ?Appt. Date:??07/19/2022?11:00 AM ?Scheduled Provider:??Dung Chen MD Follow-Up Instructions ?? Diagnosis Medications: Please continue your medications until treatment is completed or stopped by your provider. Discuss any questions related to medications with your provider. New Medications [facility] ([facility] ), [address] [place], [place] [id number], [phone] Amlodipine (amLODIPine 5 mg oral tablet) 1 tab(s) Oral Daily. Refills: 1. Next Dose: Trazodone (traZODone 100 mg oral tablet) 2 tab(s) Oral Daily at Bedtime as needed Insomnia. Refills: 1. Next Dose: Medications to Continue with No Changes These medications were not printed or sent to your pharmacy Acetaminophen/Butalbital/Caffeine (Fioricet oral capsule) 1 capsule Oral every 6 hours as needed Headache. Refills: 0. Next Dose: Aspirin (aspirin 81 mg oral delayed release tablet) 1 tab(s) Oral Daily for 30 Days. Refills: 0. Next Dose: Cephalexin (cephalexin monohydrate 500 mg oral capsule) 1 capsule Oral 4 times a day for 12 Days. Refills: 0. Next Dose: Duloxetine (duloxetine [...] 13. Next Dose: Durable Medical Equipment (Pen Ketchum, 31 G x 8 mm BD Ultra Fine III) use as directed for Type 2 Diabetes Mellitus for 5 injections per day E11.9. Refills: 6. Next Dose: Durable Medical Equipment (Pen Ketchum, 32 G x 4 mm BD Ultra Fine III) Next Dose: Fludrocortisone (fludrocortisone 0.1 mg oral tablet) Next Dose: Fluticasone Nasal (fluticasone 50 mcg/inh nasal spray) Next Dose: Gabapentin (gabapentin 300 mg oral capsule) 1 capsule Oral 3 times a day. Refills: 5. Next Dose: insulin degludec (Tresiba 100 units/mL subcutaneous solution) 100 unit(s) Subcutaneous Infusion Daily. Next Dose: Insulin Lispro (HumaLOG Cartridge 100 units/mL injectable solution) Insert cartridge into Inpen device, inject 16 units subq 3x a day with meals, Max daily dose 48 units, E11.65. Refills: 6. Next Dose: Insulin Lispro (Humalog Kwik Pen 100 units/mL subcutaneous injection) e11.65, use as back up to failed inpen device. following sliding scale, up to 16 units subcutaneously three times a day with meals. max daily dose 48 units. Refills: 1. Next Dose: Mycophenolate Sodium (mycophenolic acid 360 [...] & 3 in the Evening. Next Dose: Allergy Info:?? lisinopril Medications Given This Visit Future Orders ?No future orders Vital Signs Height 175 cm Weight 104.1 kg BMI 33.99 kg/m2 Blood Pressure 110 mm Hg/70 mm Hg Temperature Pulse Rate 93 bpm Respiratory Rate 02 Sat Mode of Delivery 97 %/ You can now view a summary of your hospital visit from the comfort of your home through a free online portal called [employer]. [employer] is a website that allows you to securely view your medical information including discharge summary, medications and follow-up visits. ??You can alsosend a secure electronic message to your doctor???s office to request appointments, renew medications or just ask a question. You can enroll at [email or web address] or register during your next office visit. [...] primary care provider, you may find a [facility] provider by calling [facility] at [phone]. For information about the plan of care [...] Care Physician Member Role: PCP Address: Address: [address] [place] [address]- Name: Heydi Oviedo RN Position: [facility] Hospital Draw Off Worker Member Role: Primary Care Nurse Name: Sandra Cat Position: [facility] Outreach Member Role: Lifetime Consulting Physician Name: Belinda Stevenson RN Position: [facility] RN Member Role: Primary Care Nurse Name: Lius Peters MD Position: [facility] Renal MD Member Role: Lifetime Consulting Physician Address: Address: [address] [facility], [place] [address]- Name: Zulma Martinez MD Position: [facility] Cardiology MD Member Role: Lifetime Consulting Physician Address: Address: [address] [place] [address] [place] [address]- [place] Name: Hilda Mcdonald RN Position: [facility] RN Member Role: Primary Care Nurse Care Team Related Persons Name: LUCIA BATEMAN Address: home [address] [place] [address]
--- OUTSIDE RECORDS SUMMARY | 2023-05-15 08:56 | XMS_ITS | Continuity of Care Document ---
Author Name Unknown Organization [facility] Address [address] [place] [address]- Care Team Providers Care Knife Setter Name Role Phone Dung Chen MD Primary Care Physician Encounter 10/16/22 - 12/09/22 [facility] [address] [place] [address] Discharge Disposition: CLIENT NO LONGER REQUIRES SKILLED CARE Allergies, Adverse Reactions, Alerts Substance Reaction Severity Status lisinopril Active Immunizations Given and Recorded Vaccine Date Status Refusal Reason tetanus/diphtheria/pertussis, acel(Tdap) 1 12/08/22 Given tetanus/diphtheria/pertussis, acel(Tdap) 03/27/12 Recorded pneumococcal 20-valent conjugate vaccine 2 12/08/22 Given [id number] 12y+ bivalent booster vax 04/15/22 Recorded influenza [...] vaccine, inactivated 03/07/06 Quinn rded SARS-CoV-2 mRNA (gansaot-sovo-yhdot) vax 07/18/21 Recorded SARS-CoV-2 (COVID-19) mRNA BNT-162b2 [...] Vacc (oldterm) 5 07/14/04 Given 1Result Comment: [facility] [id number] 2Result Comment: [facility] [id number] 3Result Comment: Lot # [id number] Exp. #) SEP 23 4Admin Note: Pt states he received this seasons flu vaccine at [place]. 5Admin Note: Patient states he received pneumovax in 2004 at [place]. Medications amLODIPine 10 mg oral tablet 10 mg, 1, tablet, By Mouth, Daily, # 90 tablet, Refills 3, Tot. Refills 3, Maintenance, 11/03/22 11:30:00 EDT, Route to Pharmacy Electronically, [facility] ), Partial fill upon patient request if the prescription is for... Start Date: 11/03/22 Status: Ordered aspirin 81 mg oral delayed release tablet 81 mg, 1, tablet, By Mouth, Daily, # 30 tablet, Refills 0, Tot. Refills 0, Maintenance, 06/08/21 11:45:00 EST, Route to Pharmacy Electronically, [facility]/pharmacy #[id number], Partial fill upon patient request if the [...] Date: 09/25/21 Status: Ordered Freestyle Nona 2 [place] Freestyle Nona 2 [place], See Instructions, # 1 each, Refills 0, Tot. Refills 0, Maintenance, Use to monitor blood glucose, scan sensor upon waking, before meals and at bedtime. E1165, 10/25/22 9:50:00 EDT, Supply Start Date: 10/25/22 [...] Maintenance, 08/23/22 12:58:00 EDT, [facility] ([facility]), 176, cm... Start Date: 08/23/22 Status: Ordered insulin degludec (concentrated) 200 units/mL subcutaneous solution See Instructions, 30 units in the AM and 30 units in the PM 30 days supply, # 75 mL, 3 Refills, Maintenance, 10/15/22 10:03:00 EDT, [facility], Partial fill upon patient request [...] Weight Start Date: 08/17/22 Status: Ordered Pen [place], 31 G x 8 mm BD Ultra Fine III See Instructions, # 300 each, Refills 6, Tot. Refills 6, Maintenance, use as directed for Type 2 Diabetes Mellitus for 5 injections per day E11.9, 12/09/21 9:52:00 EDT, Supply, 175.3, cm, 12/06/21 7:36:00 EDT, Height, 95.3, kg, 12/06/21 7:36:00 EDT... Start Date: 12/09/21 Stop Date: 08/31/23 Status: Ordered Pen [place], 32 G x 4 mm BD Ultra [...] Route to Pharmacy Electronically, [facility] ([facility]), 173, cm, 10/12/22 19:31:00 EDT, Height, 106.... Start Date: 10/12/22 Status: Ordered Trulicity Pen 0.75 mg/0.5 mL subcutaneous solution 0.5 mL = 0.75 mg, Subcutaneous Injection, Every week, rotate injection sites, # 6 mL, 0 Refills, Maintenance, 12/08/22 11:17:00 EDT, Solution, [facility] ([facility]), Partial fillupon patient request if the prescription is for a s... Start Date: 12/08/22 Status: Ordered Vitamin D3 50,000 intl units [...] r) present Confirmed 06/21/05 Active BPH - [facility] Urology Confirmed 03/14/21 Active Chronic kidney disease stage 3 Confirmed 05/17/11 Active CAD; s/p CABG 1997, [place] 2006 w/stent; heart transplant 04/30 Confirmed Active DVT, lower extremity Confirmed Active Diabetes mellitus with PVD; stents; [facility] Confirmed Active Diabetes mellitus [...] back pain Confirmed 06/15/15 Active Microscopic hematuria; [facility] Confirmed Active Neck pain Confirmed [...] comorbidity Confirmed Active Tremor - Neurology at [facility] Confirmed 02/07/18 Active Type 2 DM with renal manifestations; [facility] Confirmed 05/04/16 Active 1EF 20-25% prior to transplant Social History Social History Type Response Smoking Status Former smoker, quit more than 30 days ago entered on: 10/24/22 Sex Patient Care team information Care Team Personnel Name: Nenita Song Position: [facility] RN Supv Member Role: Primary Care Nurse Name: Sherice Mariscal RN Position: [facility] RN Member Role: Primary Care Nurse Name: Najma Michael RN Position: [facility] RN Member Role: Primary Care Nurse Name: Mallory Masterson NP Position: Reference Physician Member Role: Primary Care Nurse Address: Address: [address] [place] [address]- Name: Scarlet Rosenthal RN Position: [facility] SN RN Member Role: Primary Care Nurse Name: Dung Chen MD Position: [facility] Physician - Primary Care Member Role: PCP Address: Address: [address] [address]- Name: Heydi Oviedo RN Position: [facility] Hospital Addictions Recovery Specialist Member Role: Primary Care Nurse Name: Sandra Cat Position: [facility] Outreach Member Role: Lifetime Consulting Physician Name: Nicki Garcia RN Position: [facility] RN Member Role: Primary Care Nurse Name: Vane Davalos RN Position: [facility] RN Member Role: Primary Care Nurse Name: Belinda Stevesnon RN Position: [facility] SN RN Member Role: Primary Care Nurse Name: Luis Peters MD Position: [facility] Renal MD Member Role: Lifetime Consulting Physician Address: Address: [address] [facility] [address] [facility], [place] [address]- [place] Name: Zulma Martinez MD Position: [facility] Cardiology MD Member Role: Lifetime Consulting Physician Address: Address: [address] [place] [address]- [place] Name: Evelyn Jean-Baptiste RN Position: S RN Member Role: Primary Care Nurse Name: Hilda Mcdonald RN Position: S RN Member Role: Primary Care Nurse Care Team Related Persons Name: LUCIA BATEMAN Address: home [address] [place] [id number]
--- OUTSIDE RECORDS SUMMARY | 2023-05-15 08:57 | XMS_ITS | Continuity of Care Document ---
Author Name Unknown Organization [facility] Address [address] [place] [address]- Care Team Providers Care Rn Neonatal Name Role Phone Dung Chen MD Primary Care Physician [place] [facility] Date(s): 05/24/22 - 06/23/22 [facility] [address] [place], [place] [address] Allergies, Adverse Reactions, Alerts Substance Reaction Severity Status lisinopril Active Immunizations Given and Recorded Vaccine Date Status Refusal Reason SARS-CoV-2 mRNA (ajdsgzz-onhv-jdalc) vax 07/18/21 Recorded SARS-CoV-2 (COVID-19) mRNA BNT-162b2 [...] he received this seasons flu vaccine at [place]. 3Admin Note: Patient states he received pneumovax in 2004 at [place]. Medications amLODIPine 5 mg oral tablet 5 mg, 1, tablet, By Mouth, Daily, # 90 tablet, Refills 1, Tot. Refills 1, Maintenance, 05/12/22 11:54:00 EST, Route to Pharmacy Electronically, [facility] ), Partial fill upon patient request if the prescription is for a... Start Date: 05/12/22 Status: Ordered aspirin 81 mg oral delayed release tablet 81 mg, 1, tablet, By Mouth, Daily, # 30 tablet, Refills 0, Tot. Refills 0, Maintenance, 06/08/21 11:45:00 EST, Route to Pharmacy Electronically, [facility]/pharmacy #[id number], Partial fill upon patient request if the prescription is for a schedule II opioid drug... Start Date: 06/08/21 Stop Date: 07/08/21 Status: Ordered doxycycline monohydrate 100 mg oral tablet 1 tablet = 100 mg, By Mouth, 2 times a day, for 7 days, as needed for cellulitis, # 14 tablet, 0 Refills, Acute 06/24/22 10:57:00 EST, 06/17/22 10:57:00 EST, [facility]/pharmacy #[id number], Partial fill upon patient request [...] 0 Refills, Maintenance, 04/12/22 19:33:00 EST, Capsule, [facility]/pharmacy #[id number], Partial fill upon patient request [...] Maintenance, 05/24/22 12:19:00 EST, [facility] ), Partial fill upon patient [...] Weight Start Date: 04/03/22 Status: Ordered Pen [place], 31 G x 8 mm BD Ultra Fine III See Instructions, # 300 each, Refills 6, Tot. Refills 6, Maintenance, use as directed for Type 2 Diabetes Mellitus for 5 injections per day E11.9, 12/09/21 9:52:00 EDT, Supply, 175.3, cm, 12/06/21 7:36:00 EDT, Height, 95.3, kg, 12/06/21 7:36:00 EDT... Start Date: 12/09/21 Stop Date: 08/31/23 Status: Ordered Pen [place], 32 G x 4 mm BD Ultra [...] Route to Pharmacy Electronically, [facility] ([facility] ), 175, cm, 05/12/22 11:49:00 EST, H... Start Date: 05/12/22 Status: Ordered Vitamin D3 50,000 intl units oral capsule 1 capsule = 1,250 mcg, By Mouth, Every week, # 8 capsule, 0 Refills, Maintenance, 06/08/22 12:19:00EST, Capsule, [facility]/pharmacy #[id number], Partial fill upon patient request if the prescription is for a schedule II opioid drug., 176, cm, 06/08/22 12:04:00 E... Start Date: 06/08/22 Stop Date: 08/03/22 Status: Ordered Problem List Condition Confirmation Course Effective Dates Status Health Status Informant AICD (automatic cardioverter/defibrillato r) present Confirmed 06/21/05 Active BPH - [facility] Confirmed 03/14/21 Active Chronic kidney disease stage 3 Confirmed 05/17/11 Active CAD; s/p CABG 1997, [place] 2006 w/stent; heart transplant 04/30 Confirmed Active Diabetes mellitus with PVD; stents; [facility] Confirmed Active Diabetes mellitus with cataract [...] back pain Confirmed 06/15/15 Active Microscopic hematuria; [facility] Confirmed Active Neck pain [...] Confirmed 06/21/05 Active Tremor - Neurology at [facility] Confirmed 02/07/18 Active Type 2 DM with renal manifestations; [facility] Confirmed 05/04/16 Active 1EF 20-25% prior to transplant Social History Social History Type Response Smoking Status Former smoker, quit more than 30 days ago entered on: 06/01/21 Sex Patient Care team information Care Team Personnel Name: Nenita Song Position: [facility] RN Supv Member Role: Primary Care Nurse Name: Najma Michael RN Position: [facility] RN Member Role: Primary Care Nurse Name: Mallory Masterson NP Position: Reference Physician Member Role: Primary Care Nurse Address: Address: [address] [place] [address]- [place] Name: Scarlet Rosenthal RN Position: [facility] RN Member Role: Primary Care Nurse Name: Dung Chen MD Position: [facility] Primary Care Physician Member Role: PCP Address: Address: [address] [place] [address]- [place] Name: Heydi Oviedo RN Position: [facility] Hospital Personal Security Specialist Member Role: Primary Care Nurse Name: Sandra aCt Position: [facility] Outreach Member Role: Lifetime Consulting Physician Name: Luis Peters MD Position: [facility] Renal MD Member Role: Lifetime Consulting Physician Address: Address: [address] [facility] [address] [facility] [place] [address]- [place] Name: Zulma Martinez MD Position: [facility] Cardiology MD Member Role: Lifetime Consulting Physician Address: Address: [address] [facility] [address] [place] [address]- [place] Name: Evelyn Jean-Baptiste RN Position: [facility] RN Member Role: Primary Care Nurse Name: Hilda Mcdonald RN Position: [facility] RN Member Role: Primary Care Nurse Care Team Related Persons Name: LUCIA BATEMAN Address: home [address] [place] [address]
--- OUTSIDE RECORDS SUMMARY | 2023-05-15 08:57 | XMS_ITS | Continuity of Care Document ---
Author Name Unknown Organization [facility] Address [address] [place] [address]- Care Team Providers Care Visual Design Lead Name Role Phone Dung Chen MD Primary Care Physician Encounter [facility] Date(s): 01/19/23 - 02/18/23 [facility] [address] [place], [place] [address] Allergies, Adverse Reactions, Alerts Substance Reaction Severity Status lisinopril Active Immunizations Given and Recorded Vaccine Date Status Refusal Reason tetanus/diphtheria/pertussis, acel(Tdap) 1 12/08/22 Given tetanus/diphtheria/pertussis, acel(Tdap) 03/27/12 Recorded pneumococcal 20-valent conjugate vaccine 2 12/08/22 Given [id number] 12y+ bivalent booster vax 04/15/22 Recorded influenza [...] vaccine, inactivated 03/07/06 Quinn rded SARS-CoV-2 mRNA ([id number]-yakf-qlfak) vax 07/18/21 Recorded SARS-CoV-2 (COVID-19) mRNA BNT-162b2 [...] Vacc (oldterm) 5 07/14/04 Given 1Result Comment: [facility] [id number] 2Result Comment: [facility] [phone] 3Result Comment: Lot # [id number] Exp. #) SEP 23 4Admin Note: Pt states he received this seasons flu vaccine at [place]. 5Admin Note: Patient states he received pneumovax in 2004 at [place]. Medications amLODIPine 10 mg oral tablet 10 [...] Route to Pharmacy Electronically, [facility]/pharmacy #[id number], Partial fill upon patient request if the [...] 3 Refills, Maintenance, 01/19/23 18:26:00 EDT, Nasal [place],[facility], Partial fill upon patient request if the prescription is for a schedule II opioid drug., 1 sprays Nares, Both Daily, 173, cm, 100... Start Date: 01/19/23 Status: Ordered Freestyle Nona 2 [place] Freestyle Nona 2 [place], See Instructions, # 1 each, Refills 0, [...] Maintenance, 08/23/22 12:58:00 EDT, [facility] ([facility]), 176, cm... Start Date: 08/23/22 Status: Ordered insulin degludec (concentrated) 200 units/mL subcutaneous solution See Instructions, 30 units in the AM and 30 units in the PM 30 days supply, # 75 mL, 3 Refills, Maintenance, 10/15/22 10:03:00 EDT, [facility], Partial fill upon patient [...] Weight Start Date: 08/17/22 Status: Ordered Pen [place], 31 G x 8 mm BD Ultra [...] Route to Pharmacy Electronically, [facility] ([facility]), 173, cm, 10/12/22 19:31:00 EDT, [...] 02/12/23 22:19:00 EDT, Route to Pharmacy Electronically, [facility]/pharmacy #[id number], Partial fill upon patient requestif the [...] present Confirmed 06/21/05 Active BPH - [facility] Confirmed 03/14/21 Active Chronic kidney disease stage 3 Confirmed 05/17/11 Active CAD; s/p CABG 1997, [place] 2006 w/stent; heart transplant 04/30 Confirmed Active DVT, lower extremity Confirmed Active Diabetes mellitus with PVD; stents; [facility] Confirmed Active Diabetes mellitus with [...] pain Confirmed 06/15/15 Active Microscopic hematuria; [facility] Confirmed Active Neck pain Confirmed [...] comorbidity Confirmed Active Tremor - Neurology at [facility] Confirmed 02/07/18 Active Type 2 DM with renal manifestations; [facility] Confirmed 05/04/16 Active 1EF 20-25% prior [...] Role: Primary Care Nurse Address: Address: [address] [place] [address]- [place] Name: Scarlet Rosenthal RN Position: [facility] SN RN Member Role: Primary Care Nurse Name: Dung Chen MD Position: [facility] Physician - Primary Care Member Role: PCP Address: Address: [address] [place] [address]- [place] Name: Heydi Oviedo RN Position: [facility] Hospital Medical Librarian Member Role: Primary Care Nurse Name: Sandra Cat Position: [facility] Outreach Member Role: Lifetime Consulting Physician Name: Nicki Garcia RN Position: [facility] RN Member Role: Primary Care Nurse Name: Vane Davalos RN Position: [facility] RN Member Role: Primary Care Nurse Name: Belinda Stevenson RN Position: [facility] SN RN Member Role: Primary Care Nurse Name: Luis Peters MD Position: [facility] Renal MD Member Role: Lifetime Consulting Physician Address: Address: [address] [facility] [place] [address]- [place] Name: Zulma Martinez MD Position: [facility] Cardiology MD Member Role: Lifetime Consulting Physician Address: Address: [address] [facility] [address] [place] [address]- [place] Name: Evelyn Jean-Baptiste RN Position: [facility] RN Member Role: Primary Care Nurse Name: Hilda Mcdonald RN Position: [facility] RN Member Role: Primary Care Nurse Care Team Related Persons Name: LUCIA BATEMAN Address: home [address] [place] [address]
--- OUTSIDE RECORDS SUMMARY | 2023-05-15 08:57 | XMS_ITS | Continuity of Care Document ---
Author Name Unknown Organization [facility] Address [address] [place] [address]- Care Team Providers Care Flotation Tank Operator Name Role Phone Dung Chen MD Primary Care Physician Encounter [facility] Date(s): 07/23/20 - 11/20/20 [facility] [address] [place] [id number] Attending Physician: Felix Duque MD Admitting [...] he received this seasons flu vaccine at [place]. 3Admin Note: Patient states he received pneumovax in 2004 at [place]. Medications aspirin 81 mg oral tablet 1 tablet = 81 mg, By Mouth, Daily, # 30 tablet, 0 Refills, Maintenance, 04/07/17 12:54:17, Tablet Start Date: 04/07/17 Status: Ordered Ativan 1 mg oral tablet See Instructions, 1 tablet By Mouth 30 minutes before MRI. May repeat once at time of test., # 2 tablet, 0 Refills, Maintenance, 08/17/20 17:02:00 EDT, [id number], Partial fill upon patient request if the [...] Refills, Maintenance, 06/09/19 9:51:00 EST, EC Capsule, [facility]/pharmacy #[id number], 175, cm, 12/05/18 15:23:00 EDT, [...] 11/02/20 13:16:00 EDT, Route to Pharmacy Electronically, [facility], 176, cm, 08/17/20 16:06:00 EDT, [...] Compound Start Date: 10/15/18 Status: Ordered Pen [place], 31 G x 5 mm BD Ultra Fine III See Instructions, # 120 each, Refills 6, Tot. Refills 6, Maintenance, injects 4 times a day E11.65,08/24/20 9:11:00 EDT, fax [phone], Compound, 176, cm, 08/17/20 16:06:00 EDT, Height, 94.72, kg, 10/09/19 14:08:00 EDT, Dry Weight Start Date: 08/24/20 Status: Ordered Plavix 75 mg oral tablet 75 mg, 1, tablet, By Mouth, Daily, # 90 tablet, Refills 3, Tot. Refills 3, Maintenance, 01/28/20 14:36:00 EDT, Route to Pharmacy Electronically, [facility]/pharmacy #[id number], 176, cm, 01/06/20 19:56:00 EDT, [...] 05/27/19 16:08:00 EST, Route to Pharmacy Electronically, [facility]/pharmacy #[id number], 175, cm, 12/05/18 15:23:00 EDT, [...]
--- OUTSIDE RECORDS SUMMARY | 2023-05-15 08:57 | XMS_ITS | Continuity of Care Document ---
Author Name Unknown Organization [facility] Address [address] [place] [address]- Care Team Providers Care Tax Intern Name Role Phone Dung Chne MD Primary Care Physician Encounter 03/17/23 - 04/20/23 [facility] [address] [place], [place] [address] Discharge Disposition: [facility] Allergies, Adverse Reactions, Alerts Substance Reaction Severity [...] virus vaccine, inactivated 03/07/06 Quinn rded SARS-CoV-2(COVID-19)mRNA-LNP vac([id number]) 02/06/23 Recorded tetanus/diphtheria/pertussis, acel(Tdap) 2 12/08/22 Given tetanus/diphtheria/pertussis, acel(Tdap) 03/27/12 Recorded pneumococcal 20-valent conjugate vaccine 3 12/08/22 Given [id number] 12y+ bivalent booster vax 04/15/22 Recorded SARS-CoV-2 mRNA (kagkjzd-ryny-vljtb) vax 07/18/21 Recorded SARS-CoV-2 (COVID-19) mRNA BNT-162b2 [...] SEP 23 2Result Comment: [facility] [id number] 3Result Comment: [facility] [phone] 4Admin Note: Pt states he received this seasons flu vaccine at [place]. 5Admin Note: Patient states he received pneumovax in 2004 at [place]. Medications Albuterol 0.083% inhalation roger Refills 0, Maintenance, 03/20/23 8:54:00 EST Start Date: 03/20/23 Status: Ordered amLODIPine 10 mg oral tablet 10 mg, 1, tablet, By Mouth, Daily, # 90 tablet, Refills 3, Tot. Refills 3, Maintenance, 11/03/22 11:30:00 EDT, Route to Pharmacy Electronically, [facility] ([facility] ), Partial fill upon patient [...] 06/08/21 11:45:00 EST, Route to Pharmacy Electronically, [facility]/pharmacy #[id number], Partial fill upon patient request [...] 3 Refills, Maintenance, 01/19/23 18:26:00 EDT, Nasal [place],[facility], Partial fill upon patient request [...] 12/08/22 11:17:00 EDT, Solution, [facility] ([facility]), Partial fillupon patient request if [...] r) present Confirmed 06/21/05 Active BPH - [facility] Confirmed 03/14/21 Active Chronic kidney disease stage 3 Confirmed 05/17/11 Active CAD; s/p CABG 1997, [place] 2006 w/stent; heart transplant 04/30 Confirmed Active Diabetes mellitus with PVD; stents; [facility] [place] [facility] Confirmed Active Diabetes mellitus with [...] back pain Confirmed 06/15/15 Active Microscopic hematuria; [facility] Confirmed Active Neck pain [...] B12 Confirmed Active Tremor - Neurology at [facility] Confirmed 02/07/18 Active Type 2 DM with renal manifestations; [facility] Confirmed 05/04/16 Active Vitamin D deficiency [...] Member Role: Primary Care Nurse Address: Address: [address] [place] [address]- [place] Name: Scarlet Rosenthal RN Position: [facility] RN Member Role: Primary Care Nurse Name: Dung Chen MD Position: [facility] Physician - Primary Care Member Role: PCP Address: Address: [address] [place] [address]- Name: Heydi Oviedo RN Position: [facility] Hospital License Inspector Member Role: Primary Care Nurse Name: [facility] [...] Member Role: Lifetime Consulting Physician Address: Address: [address] [place] [address] [address] [facility] [place] [address]- Name: Zulma Martinez MD Position: [facility] Cardiology MD Member Role: Lifetime Consulting Physician Address: Address: [address] [place] [address]- Name: Evelyn Jean-Baptiste RN Position: [facility] RN Member Role: Primary Care Nurse Name: Hilda Mcdonald RN Position: [facility] RN Member Role: Primary Care Nurse Care Team Related Persons Name: LUCIA BATEMAN Address: home [address] [place] [address]
--- OUTSIDE RECORDS SUMMARY | 2023-05-15 08:57 | XMS_ITS | Continuity of Care Document ---
Author Name Unknown Organization [facility] Address [address] [place] [address]- Care Team Providers Care Woodworking Machine Operator Name Role Phone Dung Chen MD Primary Care Physician [phone] Encounter [facility] Date(s): 11/24/22 - 01/21/[address] [address] Attending Physician: Toshia Fuller MD Admitting Physician: Toshia Fuller MD Referring Physician: Dung Chen MD Allergies, Adverse Reactions, Alerts Substance Reaction Severity Status lisinopril Active Immunizations Given and Recorded Vaccine Date Status Refusal Reason tetanus/diphtheria/pertussis, acel(Tdap) 1 12/08/22 Given tetanus/diphtheria/pertussis, acel(Tdap) 03/27/12 Recorded pneumococcal 20-valent conjugate vaccine 2 12/08/22 Given [id number] 12y+ bivalent booster vax 04/15/22 Recorded influenza [...] vaccine, inactivated 03/07/06 Quinn rded SARS-CoV-2 mRNA (cgcumnc-xocp-yzagm) vax 07/18/21 Recorded SARS-CoV-2 (COVID-19) mRNA BNT-162b2 [...] Vacc (oldterm) 5 07/14/04 Given 1Result Comment: [facility] [phone] 2Result Comment: [facility] [phone] 3Result Comment: Lot # [id number] Exp. #) SEP 23 4Admin Note: Pt states he received this seasons flu vaccine at [place]. 5Admin Note: Patient states he received pneumovax in 2004 at [place]. Medications amLODIPine 10 mg oral tablet 10 mg, 1, tablet, By Mouth, Daily, # 90 tablet, Refills 3, Tot. Refills 3, Maintenance, 11/03/22 11:30:00 EDT, Route to Pharmacy Electronically, [facility] ([facility] ), Partial fill upon patient request if the prescription is for... Start Date: 11/03/22 Status: Ordered aspirin 81 mg oral delayed release tablet 81 mg, 1, tablet, By Mouth, Daily, # 30 tablet, Refills 0, Tot. Refills 0, Maintenance, 06/08/21 11:45:00 EST, Route to Pharmacy Electronically, [facility]/pharmacy #[id number], Partial fill upon patient request if the [...] 3 Refills, Maintenance, 01/19/23 18:26:00 EDT, Nasal [place],[facility], Partial fill upon patient request if the prescription is for a schedule II opioid drug., 1 sprays Nares, Both Daily, 173, cm, 10/0... Start Date: 01/19/23 Status: Ordered Freestyle Nona 2 [place] Freestyle Nona 2 [place], See Instructions, # 1 each, Refills 0, [...] Maintenance, 08/23/22 12:58:00 EDT, [facility] ([facility]), 176, cm... Start Date: 08/23/22 Status: Ordered insulin degludec (concentrated) 200 units/mL subcutaneous solution See Instructions, 30 units in the AM and 30 units in the PM 30 days supply, # 75 mL, 3 Refills, Maintenance, 10/15/22 10:03:00 EDT, [facility] 3, Partial fill upon patient request if [...] Weight Start Date: 08/17/22 Status: Ordered Pen [place], 31 G x 8 mm BD Ultra Fine III See Instructions, # 300 each, Refills 6, Tot. Refills 6, Maintenance, use as directed for Type 2 Diabetes Mellitus for 5 injections per day E11.9, 12/09/21 9:52:00 EDT, Supply, 175.3, cm, 12/06/21 7:36:00 EDT, Height, 95.3, kg, 12/06/21 7:36:00 EDT... Start Date: 12/09/21 Stop Date: 08/31/23 Status: Ordered Pen [place], 32 G x 4 mm BD Ultra [...] Route to Pharmacy Electronically, [facility] ([facility]), 173, cm, 10/12/22 19:31:00 [...] capsule, 0 Refills, Maintenance, 06/08/22 12:19:00EST, Capsule, [facility]/pharmacy #[id number], Partial fill [...] r) present Confirmed 06/21/05 Active BPH - [facility] Confirmed 03/14/21 Active Chronic kidney disease stage 3 Confirmed 05/17/11 Active CAD; s/p CABG 1997, [place] 2006 w/stent; heart transplant 04/30 Confirmed Active DVT, lower extremity Confirmed Active Diabetes mellitus with PVD; stents; [facility] Confirmed Active Diabetes [...] 01/24/14 Active History of SCC in situ; [facility] Confirmed 11/06/20 Active History of venous thrombosis - R IJ complete, partial on L; AC x3mo Confirmed 05/13/13 Active Hyperparathyroidism Confirmed 06/07/21 Active Hypertension Confirmed Active Immunosuppressed status Confirmed Active Insomnia Confirmed 07/17/19 Active Ischemic cardiomyopathy Confirmed Active Left foot drop Confirmed 08/25/14 Active Leukopenia Confirmed 07/10/21 Active Low back pain Confirmed 06/15/15 Active Microscopic hematuria; [facility] Confirmed Active Neck pain [...] comorbidity Confirmed Active Tremor - Neurology at [facility] Confirmed 02/07/18 Active Type 2 DM with renal manifestations; [facility] Confirmed 05/04/16 Active 1EF 20-25% prior to transplant Social History Social History Type Response Smoking Status Former smoker, quit more than 30 days ago entered on: 10/24/22 Sex Patient Care team information Care Team Personnel Name: Nenita Song Position: [facility] RN Supv Member Role: Primary Care Nurse Name: Sherice Mariscal RN Position: [facility] RN Member Role: Primary Care Nurse Name: Najma Michael RN Position: [facility] RN Member Role: Primary Care Nurse Name: Mallory Masterson NP Position: Reference Physician Member Role: Primary Care Nurse Address: Address: [address] [place] [address]- [place] Name: Scarlet Rosenthal RN Position: [facility] SN RN Member Role: Primary Care Nurse Name: Dung Chen MD Position: [facility] Physician - Primary Care Member Role: PCP Address: Address: [address] [address]- [place] Name: Heydi Oviedo RN Position: [facility] Hospital Postbed Stitcher Member Role: Primary Care Nurse Name: Sandra Cat Position: [facility] Outreach Member Role: Lifetime Consulting Physician Name: Nicki Garcia RN Position: [facility] RN Member Role: Primary Care Nurse Name: Vane Davalos RN Position: [facility] RN Member Role: Primary Care Nurse Name: Belinda Stevenson RN Position: [facility] SN RN Member Role: Primary Care Nurse Name: Luis Peters MD Position: [facility] Renal MD Member Role: Lifetime Consulting Physician Address: Address: [address] [facility] [address] [facility] [place] [address]- [place] Name: Zulma Martinez MD Position: [facility] Cardiology MD Member Role: Lifetime Consulting Physician Address: Address: [address] [facility] [address] [place] [address]- [place] Name: Evelyn Jean-Baptiste RN Position: [facility] RN Member Role: Primary Care Nurse Name: Hilda Mcdonald RN Position: [facility] RN Member Role: Primary Care Nurse Care Team Related Persons Name: LUCIA BATEMAN Address: home [address] [place] [address]
--- OUTSIDE RECORDS SUMMARY | 2023-05-15 08:57 | XMS_ITS | Continuity of Care Document ---
Author Name Unknown Organization [facility] Address [address] [place] [address]- Care Team Providers Care New Home Sales Consultant Name Role Phone Dung Chen MD Primary Care Physician Encounter [facility] Date(s): 11/11/19 - 12/11/19 [facility] [address] [place] [address]- [facility] Allergies, Adverse Reactions, Alerts Substance Reaction Severity [...] he received this seasons flu vaccine at [place]. 3Admin Note: Patient states he received pneumovax in 2004 at [place]. Medications aspirin 81 mg oral tablet [...] Refills, Maintenance, 06/09/19 9:51:00 EST, EC Capsule, [facility]/pharmacy #[id number], 175, cm, 12/05/18 15:23:00 EDT, [...] 05/27/19 16:08:00 EST, Route to Pharmacy Electronically, [facility]/pharmacy #[id number], 175, cm, 12/05/18 15:23:00 EDT, [...]
--- OUTSIDE RECORDS SUMMARY | 2023-05-15 08:57 | XMS_ITS | Continuity of Care Document ---
Author Name Unknown Organization [facility] Address [address] [place] [address]- Care Team Providers Care Prosthetist Name Role Phone Dung Chen MD Primary Care Physician Encounter [facility] Date(s): 02/04/21 - 04/30/21 [facility] [address] [place] [address] Attending Physician: Felix Duque MD [...] he received this seasons flu vaccine at [place]. 3Admin Note: Patient states he received pneumovax in [address] [place]. Medications aspirin 81 mg oral tablet 1 tablet = 81 mg, By Mouth, Daily, # 30 tablet, 0 Refills, Maintenance, 04/07/17 12:54:17, Tablet Start Date: 04/07/17 Status: Ordered Ativan 1 mg oral tablet See Instructions, 1 tablet By Mouth 30 minutes before MRI. May repeat once at time of test., # 2 tablet, 0 Refills, Maintenance, 08/17/20 17:02:00 EDT, [facility]/pharmacy #[id number], Partial fill upon patient request if the [...] Refills, Maintenance, 06/09/19 9:51:00 EST, EC Capsule, [facility]/pharmacy #[id number], 175, cm, 12/05/18 15:23:00 EDT, Height, [...] 3, 04/13/21 9:50:00 EST,Route to Pharmacy Electronically, [facility]/pharmacy #[id number], 176, cm, 03/30/21 10:45:00 EST, Height, 94.72, kg, 10/09/19 14:08:00 EDT, Dry Weight Start Date: 04/13/21 Status: Ordered HumaLOG Cartridge 100 units/mL injectable solution See Instructions, Use 3 times daily before meals. E11.65.; for use with InPen. 90-day supply., # 90mL, 3 Refills, Maintenance, 04/15/21 19:46:00 EST, Solution, [facility], Humalog [facility]: [id number] (cartridges), 176, cm, 03/30/21 10:45:00 E... Start Date: 04/15/21 Status: Ordered In Pen- Humalog, Blue In Pen- Humalog, Blue, See Instructions, # 1 each, Refills 1, Tot. Refills 1, Maintenance, Use to administer Humalog 3 times daily before meals. E11.65., 04/15/21 19:48:00 EST, Humalog Blue: [id number], Supply, 176, cm, 03/30/21 10:45:00 EST, Height... [...] Compound Start Date: 10/15/18 Status: Ordered Pen [place], 31 G x 5 mm BD Ultra Fine III See Instructions, # 120 each, Refills 6, Tot. Refills 6, Maintenance, injects 4 times a day E11.65,08/24/20 9:11:00 EDT, fax [phone], Compound, 176, cm, 08/17/20 16:06:00 EDT, Height, 94.72, kg, 10/09/19 14:08:00 EDT, Dry Weight Start Date: 08/24/20 Status: Ordered Plavix 75 mg oral tablet 75 mg, 1, tablet, By Mouth, Daily, # 90 tablet, Refills 3, Tot. Refills 3, Maintenance, 01/28/20 14:36:00 EDT, Route to Pharmacy Electronically, [facility]/pharmacy #[id number], 176, cm, 01/06/20 19:56:00 EDT, Height, 94.72, [...] EST, Route to Pharmacy Electronically, [facility]/pharmacy #[id number], 175, cm, 12/05/18 15:23:00 EDT, Height, 84.5, [...]
--- OUTSIDE RECORDS SUMMARY | 2023-05-15 08:57 | XMS_ITS | Continuity of Care Document ---
Author Name Unknown Organization [facility] [place] Address [address] [place] [address]- Care Team Providers Care Coreroom Foundry Laborer Name Role Phone Dung Chen MD Primary Care Physician Encounter [facility] Date(s): 09/25/20 - 10/25/20 [facility] [place] [address] [place], [place] [address] Allergies, Adverse Reactions, Alerts [...] he received this seasons flu vaccine at [place]. 3Admin Note: Patient states he received pneumovax in 2004 at [place]. Medications aspirin 81 mg oral tablet 1 tablet = 81 mg, By Mouth, Daily, # 30 tablet, 0 Refills, Maintenance, 04/07/17 12:54:17, Tablet Start Date: 04/07/17 Status: Ordered Ativan 1 mg oral tablet See Instructions, 1 tablet By Mouth 30 minutes before MRI. May repeat once at time of test., # 2 tablet, 0 Refills, Maintenance, 08/17/20 17:02:00 EDT, [facility]/pharmacy #[id number], Partial fill upon patient request if the [...] Refills, Maintenance, 06/09/19 9:51:00 EST, EC Capsule, [facility]/pharmacy #[id number], 175, cm, 12/05/18 [...] 05/19/20 10:59:00 EST, Route to Pharmacy Electronically, [facility]/pharmacy #[id number], Partial fill upon patient request if the prescription is for a schedule II... Start Date: 05/19/20 Status: Ordered Lantus Solostar Pen 100 units/mL [...] Compound Start Date: 10/15/18 Status: Ordered Pen [place], 31 G x 5 mm BD Ultra Fine III See Instructions, # 120 each, Refills 6, Tot. Refills 6, Maintenance, injects 4 times a day E11.65,08/24/20 9:11:00 EDT, fax [phone], Compound, 176, cm, 08/17/20 16:06:00 EDT, Height, 94.72, kg, 10/09/19 14:08:00 EDT, Dry Weight Start Date: 08/24/20 Status: Ordered Plavix 75 mg oral tablet 75 mg, 1, tablet, By Mouth, Daily, # 90 tablet, Refills 3, Tot. Refills 3, Maintenance, 01/28/20 14:36:00 EDT, Route to Pharmacy Electronically, [facility]/pharmacy #[id number], 176, cm, 01/06/20 19:56:00 EDT, [...]
--- OUTSIDE RECORDS SUMMARY | 2023-05-15 08:57 | XMS_ITS | Continuity of Care Document ---
Author Name Unknown Organization [facility] ter Address [address] [place] [address]- Care Team Providers Care Program Evaluation Consultant Name Role Phone Dung Chen MD Primary Care Physician Encounter [facility] [place] Date(s): 04/29/19 - 05/06/[address] [address]- [facility] Attending Physician: Margarito Ewing MD Allergies, Adverse Reactions, Alerts Substance Reaction [...] he received this seasons flu vaccine at [place]. 3Admin Note: Patient states he received pneumovax in 2004 at [place]. Medications aspirin 81 mg oral tablet 1 [...] 9:51:00 EST, 12/11/18 9:51:00 EDT, EC Capsule, [facility]/pharmacy #[id number] Start Date: 12/11/18 Stop Date: [...] 11/28/18 16:08:11 EDT, Route to Pharmacy Electronically, [facility]/pharmacy #[id number] Start Date: 11/28/18 Stop Date: [...]
--- OUTSIDE RECORDS SUMMARY | 2023-05-15 08:57 | XMS_ITS | Continuity of Care Document ---
Author Name Unknown Organization [facility] ter Address [address] [place] [address]- Care Team Providers Care Steam Cleaner Name Role Phone Dung Chen MD Primary Care Physician [phone] [facility] Date(s): 04/29/19 - 05/06/[address] [address]- [facility] Attending Physician: Not on Staff, Attending MD [...] he received this seasons flu vaccine at [place]. 3Admin Note: Patient states he received pneumovax in 2004 at [place]. Medications aspirin 81 mg oral tablet 1 [...] Maintenance, 06/09/19 9:51:00 EST, EC Capsule, [facility]/pharmacy #[id number], 175, cm, 12/05/18 15:23:00 EDT, Height, 84.5, kg, 05/22/18 9:29:00 EST, Dry Weight Start Date: 06/09/19 Stop Date: 12/06/19 Status: Ordered duloxetine 60 mg oral enteric coated capsule 1 capsule = 60 mg, By Mouth, 2 times a day, for 30 days, # 60 capsule, 5 Refills, Hard Stop 06/09/19 9:51:00 EST, 12/11/18 9:51:00 EDT, EC Capsule, [facility]/pharmacy #[id number] Start Date: 12/11/18 Stop Date: 06/09/19 [...] 16:08:00 EST, Route to Pharmacy Electronically, [facility]/pharmacy #[id number], 175, cm, 12/05/18 15:23:00 EDT, Height, 84.5, kg, 05/22/18... Start Date: 05/27/19 Stop Date: 11/23/19 Status: Ordered traZODone 100 mg oral tablet 200 mg, 2, tablet, By Mouth, Daily at bedtime, PRN, for 30 days, # 60 tablet, Refills 5, Tot. Refills 5, Hard Stop 05/27/19 16:08:11 EST, Insomnia, 11/28/18 16:08:11 EDT, Route to Pharmacy Electronically, [facility]/pharmacy #[id number] Start Date: 11/28/18 Stop Date: 05/27/19 [...]
--- OUTSIDE RECORDS SUMMARY | 2023-05-15 08:57 | XMS_ITS | Continuity of Care Document ---
Author Name Unknown Organization [facility] Address [address] [place] [address]- Care Team Providers Care Plastic Surgeon Name Role Phone Dung Chen MD Primary Care Physician [phone] Encounter [facility] [place] Date(s): 02/01/21 - 03/03/21 [facility] [address] [place], [place] [address] Attending Physician: Scott Mcintosh Admitting Physician: AdmtrScott [...] he received this seasons flu vaccine at [place]. 3Admin Note: Patient states he received pneumovax in 2004 at [place]. Medications aspirin 81 mg oral tablet 1 tablet = 81 mg, By Mouth, Daily, # 30 tablet, 0 Refills, Maintenance, 04/07/17 12:54:17, Tablet Start Date: 04/07/17 Status: Ordered Ativan 1 mg oral tablet See Instructions, 1 tablet By Mouth 30 minutes before MRI. May repeat once at time of test., # 2 tablet, 0 Refills, Maintenance, 08/17/20 17:02:00 EDT, [facility]/pharmacy #[id number], Partial fill upon patient request if the [...] Refills, Maintenance, 06/09/19 9:51:00 EST, EC Capsule, [facility]/pharmacy #[id number], 175, cm, 12/05/18 15:23:00 EDT, Height, [...] 11/02/20 13:16:00 EDT, Route to Pharmacy Electronically, [facility], 176, cm, 08/17/20 16:06:00 EDT, [...] Compound Start Date: 10/15/18 Status: Ordered Pen [place], 31 G x 5 mm BD Ultra Fine III See Instructions, # 120 each, Refills 6, Tot. Refills 6, Maintenance, injects 4 times a day E11.65,08/24/20 9:11:00 EDT, fax [phone], Compound, 176, cm, 08/17/20 16:06:00 EDT, Height, 94.72, kg, 10/09/19 14:08:00 EDT, Dry Weight Start Date: 08/24/20 Status: Ordered Plavix 75 mg oral tablet 75 mg, 1, tablet, By Mouth, Daily, # 90 tablet, Refills 3, Tot. Refills 3, Maintenance, 01/28/20 14:36:00 EDT, Route to Pharmacy Electronically, [facility]/pharmacy #[id number], 176, cm, 01/06/20 19:56:00 EDT, Height, [...] 05/27/19 16:08:00 EST, Route to Pharmacy Electronically, [facility]/pharmacy #[id number], 175, cm, 12/05/18 15:23:00 EDT, Height, [...]
--- OUTSIDE RECORDS SUMMARY | 2023-05-15 08:57 | XMS_ITS | Continuity of Care Document ---
Author Name Unknown Organization [facility] Address [address] [place] [address]- Care Team Providers Care Orthotist Prosthetist Name Role Phone Dung Chen MD Primary Care Physician Encounter [facility] [id number] Date(s): 11/30/22 - 02/05/23 [facility] [address] [place] [address] [place] Attending Physician: Vitaliy Phelps MD Admitting Physician: Vitaliy Phelps MD Referring Physician: Vitaliy Phelps MD Allergies, Adverse Reactions, Alerts Substance Reaction Severity Status lisinopril Active Immunizations Given and Recorded Vaccine Date Status Refusal Reason tetanus/diphtheria/pertussis, acel(Tdap) 1 12/08/22 Given tetanus/diphtheria/pertussis, acel(Tdap) 03/27/12 Recorded pneumococcal 20-valent conjugate vaccine 2 12/08/22 Given [id number] 12y+ bivalent booster vax 04/15/22 Recorded influenza [...] vaccine, inactivated 03/07/06 Quinn rded SARS-CoV-2 mRNA ([id number]) vax 07/18/21 Recorded SARS-CoV-2 (COVID-19) mRNA BNT-162b2 [...] Vacc (oldterm) 5 07/14/04 Given 1Result Comment: [facility] [id number] 2Result Comment: [facility] [id number] 3Result Comment: Lot # [id number] Exp. #) SEP 23 4Admin Note: Pt states he received this seasons flu vaccine at [place]. 5Admin Note: Patient states he received pneumovax in 2004 at [place]. Medications amLODIPine 10 mg oral tablet 10 mg, 1, tablet, By Mouth, Daily, # 90 tablet, Refills 3, Tot. Refills 3, Maintenance, 11/03/22 11:30:00 EDT, Route to Pharmacy Electronically, [facility] ([facility] ), Partial fill upon patient request if the prescription is for... Start Date: 11/03/22 Status: Ordered aspirin 81 mg oral delayed release tablet 81 mg, 1, tablet, By Mouth, Daily, # 30 tablet, Refills 0, Tot. Refills 0, Maintenance, 06/08/21 11:45:00 EST, Route to Pharmacy Electronically, [facility]/pharmacy #[id number], Partial fill upon patient request if the [...] 3 Refills, Maintenance, 01/19/23 18:26:00 EDT, Nasal [place],[facility], Partial fill upon patient request if the prescription is for a schedule II opioid drug., 1 sprays Nares, Both Daily, 173, cm, 10/0... Start Date: 01/19/23 Status: Ordered Freestyle Nona 2 [place] Freestyle Nona 2 [place], See Instructions, # 1 each, Refills 0, [...] 14 day Sensor to monitor Blood Glucose. E11, 06/21/21 13:57:00 EST, Supply, 175, cm,06/08/21 7:53:00 [...] Maintenance, 08/23/22 12:58:00 EDT, [facility] ([facility]), 176, cm... Start Date: 08/23/22 Status: Ordered insulin degludec (concentrated) 200 units/mL subcutaneous solution See Instructions, 30 units in the AM and 30 units in the PM 30 days supply, # 75 mL, 3 Refills, Maintenance, 10/15/22 10:03:00 EDT, [facility], Partial fill upon patient request [...] Weight Start Date: 08/17/22 Status: Ordered Pen [place], 31 G x 8 mm BD Ultra Fine III See Instructions, # 300 each, Refills 6, Tot. Refills 6, Maintenance, use as directed for Type 2 Diabetes Mellitus for 5 injections per day E11.9, 12/09/21 9:52:00 EDT, Supply, 175.3, cm, 12/06/21 7:36:00 EDT, Height, 95.3, kg, 12/06/21 7:36:00 EDT... Start Date: 12/09/21 Stop Date: 08/31/23 Status: Ordered Pen [place], 32 G x 4 mm BD [...] Route to Pharmacy Electronically, [facility] ([facility]), 173, cm, 10/12/22 19:31:00 EDT, Height, 106.... Start Date: 10/12/22 Status: Ordered Trulicity Pen 0.75 mg/0.5 mL subcutaneous solution 0.5 mL = 0.75 mg, Subcutaneous Injection, Every week, rotate injection sites, # 6 mL, 0 Refills, Maintenance, 12/08/22 11:17:00 EDT, Solution, [facility] ([facility]), Partial fillupon patient request if [...] capsule, 0 Refills, Maintenance, 06/08/22 12:19:00EST, Capsule, [facility]/pharmacy #[id number], Partial fill upon [...] Confirmed Active Diabetes mellitus with PVD; stents; [facility] [place] [facility] Confirmed Active Diabetes mellitus [...] 01/24/14 Active History of SCC in situ; [facility] Confirmed 11/06/20 Active History of venous [...] comorbidity Confirmed Active Tremor - Neurology at [facility] Confirmed 02/07/18 Active Type 2 DM with renal manifestations; [facility] Confirmed 05/04/16 Active 1EF 20-25% prior to transplant Social History Social History Type Response Smoking Status Former smoker, quit more than 30 days ago entered on: 10/24/22 Sex Patient Care team information Care Team Personnel Name: Nenita Song Position: [facility] RN Supv Member Role: Primary Care Nurse Name: Sherice Mariscal RN Position: [facility] RN Member Role: Primary Care Nurse Name: Najma Michael RN Position: [facility] RN Member Role: Primary Care Nurse Name: Mallory Masterson NP Position: Reference Physician Member Role: Primary Care Nurse Address: Address: [address] [place] [address]- [place] Name: Scarlet Rosenthal RN Position: [facility] SN RN Member Role: Primary Care Nurse Name: Dung Chen MD Position: [facility] Physician - Primary Care Member Role: PCP Address: Address: [address] [address]- [place] Name: Heydi Oviedo RN Position: [facility] Hospital Stock Crane Operator Member Role: Primary Care Nurse Name: Sandra Cat Position: [facility] Outreach Member Role: Lifetime Consulting Physician Name: Nicki Garcia RN Position: [facility] RN Member Role: Primary Care Nurse Name: Vane Davalos RN Position: [facility] RN Member Role: Primary Care Nurse Name: Belinda Stevenson RN Position: [facility] SN RN Member Role: Primary Care Nurse Name: Luis Peters MD Position: [facility] Renal MD Member Role: Lifetime Consulting Physician Address: Address: [address] [facility] [address] [facility], [place] [address]- [place] Name: Zulma Martinez MD Position: [facility] Cardiology MD Member Role: Lifetime Consulting Physician Address: Address: [address] [facility] [address] [place] [address]- [place] Name: Evelyn Jean-Baptiste RN Position: [facility] RN Member Role: Primary Care Nurse Name: Hilda Mcdonald RN Position: [facility] RN Member Role: Primary Care Nurse Care Team Related Persons Name: BATEMAN LUCIA Address: home [address] [place] [address]
--- OUTSIDE RECORDS SUMMARY | 2023-05-15 08:57 | XMS_ITS | Continuity of Care Document ---
Author Name Unknown Organization [facility] [place] Address [address] [place] [address]- Care Team Providers Care Parking Enforcement Officer Name Role Phone Dung Chen MD Primary Care Physician Encounter [facility] Date(s): 05/22/20 - 06/21/20 [facility] End[facility] and Diabetes [address] [address] Attending Physician: Admtr, [id number] Admitting Physician: [id number] Referring Physician: Admtr, [id number] [...] he received this seasons flu vaccine at [place]. 3Admin Note: Patient states he received pneumovax in 2004 at [place]. Medications aspirin 81 mg oral tablet 1 [...] 06/09/19 9:51:00 EST, EC Capsule, [facility]/pharmacy #[id number], 175, cm, 12/05/18 15:23:00 EDT, [...] 05/19/20 10:59:00 EST, Route to Pharmacy Electronically, [facility]/pharmacy #[id number], Partial fill upon patient request [...] 14:36:00 EDT, Route to Pharmacy Electronically, [facility]/pharmacy #[id number], 176, cm, 01/06/20 19:56:00 EDT, [...] EST, Route to Pharmacy Electronically, [facility]/pharmacy #[id number], 175, cm, 12/05/18 15:23:00 EDT, [...]
--- OUTSIDE RECORDS SUMMARY | 2023-05-15 08:57 | XMS_ITS | Continuity of Care Document ---
Author Name Unknown Organization [facility] Address [address] [place] [address]- Care Team Providers Care Preschool Associate Teacher Name Role Phone Dung Chen MD Primary Care Physician Encounter [facility] Date(s): 10/24/22 - 11/23/22 [facility] [address] [place], [place] [address] Allergies, Adverse Reactions, Alerts Substance Reaction Severity Status lisinopril Active Immunizations Given and Recorded Vaccine Date Status Refusal Reason SARS-CoV-2 mRNA (cjfjpun-tfim-gxhnh) vax 07/18/21 Recorded SARS-CoV-2 (COVID-19) mRNA BNT-162b2 [...] he received this seasons flu vaccine at [place]. 3Admin Note: Patient states he received pneumovax in 2004 at [place]. Medications amLODIPine 10 mg oral tablet 10 mg, 1, tablet, By Mouth, Daily, # 90 tablet, Refills 3, Tot. Refills 3, Maintenance, 11/03/22 11:30:00 EDT, Route to Pharmacy Electronically, [facility] ([facility] ), Partial fill upon patient request if the prescription is for... Start Date: 11/03/22 Status: Ordered apixaban Starter Pack 5 mg oral tablet = 10 mg, By Mouth, 2 times a day, first dose on 10/15 at 2100, # 1 pack/packet, 0 Refills, Maintenance, 10/15/22 10:04:00 EDT, Tablet, [facility], Partial fill upon patient request if theprescription is for a schedule II opioid drug., 173... Start Date: 10/15/22 Status: Ordered aspirin 81 mg oral delayed release tablet 81 mg, 1, tablet, By Mouth, Daily, # 30 tablet, Refills 0, Tot. Refills 0, Maintenance, 06/08/21 11:45:00 EST, Route to Pharmacy Electronically, [facility]/pharmacy #[id number], Partial fill upon patient request if the [...] Date: 09/25/21 Status: Ordered Freestyle Nona 2 [place] Freestyle Nona 2 [place], See Instructions, # 1 each, Refills 0, [...] Maintenance, 08/23/22 12:58:00 EDT, [facility] ([facility]), 176, cm... Start Date: 08/23/22 Status: Ordered insulin degludec (concentrated) 200 units/mL subcutaneous solution See Instructions, 20 units in the AM and 30 units in the PM 30 days supply, # 75 mL, 3 Refills, Maintenance, 10/15/22 10:03:00 EDT, [facility], Partial fill upon patient [...] Weight Start Date: 08/17/22 Status: Ordered Pen [place], 31 G x 8 mm BD Ultra Fine III See Instructions, # 300 each, Refills 6, Tot. Refills 6, Maintenance, use as directed for Type 2 Diabetes Mellitus for 5 injections per day E11.9, 12/09/21 9:52:00 EDT, Supply, 175.3, cm, 12/06/21 7:36:00 EDT, Height, 95.3, kg, 12/06/21 7:36:00 EDT... Start Date: 12/09/21 Stop Date: 08/31/23 Status: Ordered Pen [place], 32 G x 4 mm BD Ultra [...] Route to Pharmacy Electronically, [facility] ([facility]), 173, cm, 10/12/22 19:31:00 EDT, Height, 106.... Start Date: 10/12/22 Status: Ordered Vitamin D3 50,000 intl units oral capsule 1 capsule = 1,250 mcg, By Mouth, Every week, # 8 capsule, 0 Refills, Maintenance, 06/08/22 12:19:00EST, Capsule, [facility]/pharmacy #[id number], Partial fill upon patient request [...] Confirmed Active Diabetes mellitus with PVD; stents; [facility] [place] [facility] Confirmed Active Diabetes mellitus with [...] Confirmed 06/21/05 Active Tremor - Neurology at [facility] Confirmed 02/07/18 Active Type 2 DM with renal manifestations; [facility] Confirmed 05/04/16 Active 1EF 20-25% prior to transplant Social History Social History Type Response Smoking Status Former smoker, quit more than 30 days ago entered on: 10/24/22 Sex Patient Care team information Care Team Personnel Name: Nenita Song Position: [facility] RN Supv Member Role: Primary Care Nurse Name: Sherice Mariscal RN Position: [facility] RN Member Role: Primary Care Nurse Name: Najma Michael RN Position: [facility] RN Member Role: Primary Care Nurse Name: Aleja CUSTOMER SOLUT[employer] TEAMMATEMallory Position: Reference Physician Member Role: Primary Care Nurse Address: Address: [address] [place] [address]- Name: Scarlet Rosenthal RN Position: [facility] SN RN Member Role: Primary Care Nurse Name: Khurram Hansen RN Position: [facility] RN Member Role: Primary Care Nurse Name: Dung Chen MD Position: [facility] Physician - Primary Care Member Role: PCP Address: Address: [address] [place] [address]- [place] Name: Heydi Oviedo RN Position: [facility] Hospital Information Clerk [employer]obile Club Member Role: Primary Care Nurse Name: Sandra Cat Position: [facility] Outreach Member Role: Lifetime Consulting Physician Name: Nicki Garcia RN Position: [facility] RN Member Role: Primary Care Nurse Name: Vane Davalos RN Position: [facility] RN Member Role: Primary Care Nurse Name: Luis Peters MD Position: [facility] Renal MD Member Role: Lifetime Consulting Physician Address: Address: [address] [facility] [place] [address]- [place] Name: Zulma Martinez MD Position: [facility] Cardiology MD Member Role: Lifetime Consulting Physician Address: Address: [address] [facility] [address] [place] [address]- Name: Evelyn Jean-Baptiste RN Position: S RN Member Role: Primary Care Nurse Name: Hilda Mcdonald RN Position: S RN Member Role: Primary Care Nurse Care Team Related Persons Name: LUCIA BATEMAN Address: home [address] [place] [address]
--- OUTSIDE RECORDS SUMMARY | 2023-05-15 08:57 | XMS_ITS | Continuity of Care Document ---
Author Name Unknown Organization [facility] ter Address [address] [place] [address]- Care Team Providers Care Hvac Journeyman Name Role Phone Dung Chen MD Primary Care Physician Encounter [facility] [place] [place] Date(s): 08/26/21 - 08/26/[address] [address] Discharge Disposition: A-D/C Home Attending Physician: Faisal Rowe Jr, MD Admitting Physician: Faisal Roew Jr, MD Referring Physician: Faisal Rowe Jr, MD Allergies, Adverse Reactions, Alerts Substance Reaction [...] he received this seasons flu vaccine at [place]. 3Admin Note: Patient states he received pneumovax in 2004 at [place]. Medications aspirin 81 mg oral delayed release tablet 81 mg, 1, tablet, By Mouth, Daily, # 30 tablet, Refills 0, Tot. Refills 0, Maintenance, 06/08/21 11:45:00 EST, Route to Pharmacy Electronically, [facility]/pharmacy #[id number], Partial fill upon patient request if the [...] 05/27/19 16:08:00 EST, Route to Pharmacy Electronically, [facility]/pharmacy #[id number], 175, cm, 12/05/18 15:23:00 [...] oldest [Reference Range]: 1 2 3 Height 175.3 cm (08/26/21 12:59 PM) Oxygen Saturation [94-100 %] 100 % (08/26/21 2:13 PM) 100 % (08/26/21 2:02 PM) 100 % (08/26/21 12:59 PM) Pulse Rate [55-90 bpm] 88 bpm (08/26/21 12:59 PM) Blood Pressure [90-138/55-84 mm Hg] 127/71mm Hg (08/26/21 2:13 PM) 134/73mm Hg (08/26/21 2:02 PM) 149/75mm Hg *H* (08/26/21 12:59 PM) Respiratory Rate [16-30 br/min] 16 br/min (08/26/21 2:13 PM) 15 br/min *L* (08/26/21 2:02 PM) 18 br/min (08/26/21 12:59 PM) Temperature [96.8-100.4 DegF] 98 DegF (08/26/21 12:59 PM) Liters per Minute 4 L/min (08/26/21 2:02 PM) Mode of Delivery (Oxygen) Shovel mask (08/26/21 2:02 PM) Room air (08/26/21 12:59 PM) Blood pressure sites Arm, left (08/26/21 2:13 PM) Arm, left (08/26/21 2:02 PM) Arm, left (08/26/21 12:59 PM) Temperature Route Temporal (08/26/21 12:59 PM) Dry Weight 86.2 kg (08/26/21 12:59 PM) Dry Weight Obtained Via Patient/family s tated (08/26/21 12:59 PM) Social History Social History Type Response Smoking Status Former smoker, quit more than 30 days ago entered on: 06/01/21 Sex
--- OUTSIDE RECORDS SUMMARY | 2023-05-15 08:57 | XMS_ITS | Continuity of Care Document ---
Author Name Unknown Organization [facility] ter Address [address] [place] [address]- Care Team Providers Care Hand Bulldozer Name Role Phone Dung Chen MD Primary Care Physician [phone] Encounter [facility] Date(s): 09/06/22 - 12/03/[address] [address] Attending Physician: Jarrell Zacarias MD Admitting Physician: Jarrell Zacarias MD Allergies, Adverse Reactions, Alerts Substance Reaction Severity Status lisinopril Active Immunizations Given and Recorded Vaccine Date Status Refusal Reason [id number] 12y+ bivalent booster vax 04/15/22 Recorded influenza [...] vaccine, inactivated 03/07/06 Quinn rded SARS-CoV-2 mRNA (vlxozlk-zbrt-bgnhj) vax 07/18/21 Recorded SARS-CoV-2 (COVID-19) mRNA BNT-162b2 [...] he received this seasons flu vaccine at [place]. 3Admin Note: Patient states he received pneumovax in 2004 at [place]. Medications amLODIPine 10 mg oral tablet 10 mg, 1, tablet, By Mouth, Daily, # 90 tablet, Refills 3, Tot. Refills 3, Maintenance, 11/03/22 11:30:00 EDT, Route to Pharmacy Electronically, [facility] ([facility] ), Partial fill upon patient request if the prescription is for... Start Date: 11/03/22 Status: Ordered apixaban Starter Pack 5 mg oral tablet = 10 mg, By Mouth, 2 times a day, first dose on 10/15 at 2100, # 1 pack/packet, 0 Refills, Maintenance, 10/15/22 10:04:00 EDT, Tablet, [facility], Partial fill upon patient request if theprescription is for a schedule II opioid drug., 173... Start Date: 10/15/22 Status: Ordered aspirin 81 mg oral delayed release tablet 81 mg, 1, tablet, By Mouth, Daily, # 30 tablet, Refills 0, Tot. Refills 0, Maintenance, 06/08/21 11:45:00 EST, Route to Pharmacy Electronically, [facility]/pharmacy #[id number], Partial fill upon patient request if the [...] Date: 09/25/21 Status: Ordered Freestyle [place] 2 Tutor [place] Freestyle [place] 2 Tutor [place], See Instructions, # 1 each, Refills 0, [...] Maintenance, 08/23/22 12:58:00 EDT, [facility] ([facility]), 176, cm... Start Date: 08/23/22 Status: Ordered insulin degludec (concentrated) 200 units/mL subcutaneous solution See Instructions, 20 units in the AM and 30 units in the PM 30 days supply, # 75 mL, 3 Refills, Maintenance, 10/15/22 10:03:00 EDT, [facility], Partial fill upon patient request if [...] Weight Start Date: 08/17/22 Status: Ordered Pen [place], 31 G x 8 mm BD Ultra Fine III See Instructions, # 300 each, Refills 6, Tot. Refills 6, Maintenance, use as directed for Type 2 Diabetes Mellitus for 5 injections per day E11.9, 12/09/21 9:52:00 EDT, Supply, 175.3, cm, 12/06/21 7:36:00 EDT, Height, 95.3, kg, 12/06/21 7:36:00 EDT... Start Date: 12/09/21 Stop Date: 08/31/23 Status: Ordered Pen [place], 32 G x 4 mm BD Ultra [...] Route to Pharmacy Electronically, [facility] ([facility]), 173, cm, 10/12/22 19:31:00 [...] present Confirmed 06/21/05 Active BPH - [facility] Confirmed 03/14/21 Active Chronic kidney disease stage 3 Confirmed 05/17/11 Active CAD; s/p CABG 1997, [place] 2006 w/stent; heart transplant 04/30 Confirmed Active DVT, lower extremity Confirmed Active Diabetes mellitus with PVD; stents; [facility] [place] [facility] Confirmed Active Diabetes mellitus with [...] complete, partial on L; AC x3mo Confirmed 1/27/14 Active Hyperparathyroidism Confirmed 06/07/21 Active Hypertension Confirmed Active Immunosuppressed status Confirmed Active Insomnia Confirmed 07/17/19 Active Ischemic cardiomyopathy Confirmed Active Left foot drop Confirmed 08/25/14 Active Leukopenia Confirmed 07/10/21 Active Low back pain Confirmed 06/15/15 Active Microscopic hematuria; [facility] Confirmed Active Neck pain [...] Confirmed 06/21/05 Active Tremor - Neurology at [facility] Confirmed 02/07/18 Active Type 2 DM with renal manifestations; [facility] Confirmed 05/04/16 Active 1EF 20-25% prior to transplant Social History Social History Type Response Smoking Status Former smoker, quit more than 30 days ago entered on: 10/24/22 Sex Patient Care team information Care Team Personnel Name: Nenita Song Position: [facility] RN Supv Member Role: Primary Care Nurse Name: Sherice Mariscal RN Position: [facility] RN Member Role: Primary Care Nurse Name: Najma Michael RN Position: [facility] RN Member Role: Primary Care Nurse Name: Mallory Masterson NP Position: Reference Physician Member Role: Primary Care Nurse Address: Address: [address] [place] [address]- Name: Scarlet Rosenthal RN Position: [facility] SN RN Member Role: Primary Care Nurse Name: Khurram Hansen RN Position: [facility] RN Member Role: Primary Care Nurse Name: Dung Chen MD Position: [facility] Physician - Primary Care Member Role: PCP Address: Address: [address] [place] [address]- Name: Heydi Oviedo RN Position: [facility] Hospital Patient Scheduler Member Role: Primary Care Nurse Name: Sandra Cat Position: [facility] Outreach Member Role: Lifetime Consulting Physician Name: Nicki Garcia RN Position: [facility] RN Member Role: Primary Care Nurse Name: Vane Davalos RN Position: S RN Member Role: Primary Care Nurse Name: Luis Peters MD Position: [facility] Renal MD Member Role: Lifetime Consulting Physician Address: Address: [address] [facility], [place] [address]- Name: Zulma Martinez MD Position: [facility] Cardiology MD Member Role: Lifetime Consulting Physician Address: Address: [address] [place] [address]- Name: Evelyn Jean-Baptiste RN Position: S RN Member Role: Primary Care Nurse Name: Hilda Mcdonald RN Position: S RN Member Role: Primary Care Nurse Care Team Related Persons Name: LUCIA BATEMAN Address: home [address] [place] [address]
--- OUTSIDE RECORDS SUMMARY | 2023-05-15 08:57 | XMS_ITS | Continuity of Care Document ---
Author Name Unknown Organization [facility] ter Address [address] [place] [address]- Care Team Providers Care Pulpwood Cutter Name Role Phone Dung Chen MD Primary Care Physician Encounter [facility] Date(s): 06/21/22 - 07/28/[address] [address] Attending Physician: Toshia Barr MD Admitting Physician: Toshia Barr MD Referring Physician: Dung Chen MD Allergies, Adverse Reactions, Alerts Substance Reaction Severity Status lisinopril Active Immunizations Given and Recorded Vaccine Date Status Refusal Reason SARS-CoV-2 mRNA (hkmjsfa-vosa-fhele) vax 07/18/21 Recorded SARS-CoV-2 (COVID-19) mRNA BNT-162b2 [...] he received this seasons flu vaccine at [place]. 3Admin Note: Patient states he received pneumovax in 2004 at [place]. Medications amLODIPine 5 mg oral tablet 5 mg, 1, tablet, By Mouth, Daily, # 90 tablet, Refills 1, Tot. Refills 1, Maintenance, 05/12/22 11:54:00 EST, Route to Pharmacy Electronically, [facility] ([facility] ), Partial fill upon patient [...] 02/03/22 9:07:00 EDT, Route to Pharmacy Electronically, [facility] ([facility]), 175.3, cm, 01/03/22 13:47:00 EDT, [...] Maintenance, 05/24/22 12:19:00 EST, [facility] ([facility] ), Partial fill upon patient [...] Weight Start Date: 04/03/22 Status: Ordered Pen [place], 31 G x 8 mm BD Ultra Fine III See Instructions, # 300 each, Refills 6, Tot. Refills 6, Maintenance, use as directed for Type 2 Diabetes Mellitus for 5 injections per day E11.9, 12/09/21 9:52:00 EDT, Supply, 175.3, cm, 12/06/21 7:36:00 EDT, Height, 95.3, kg, 12/06/21 7:36:00 EDT... Start Date: 12/09/21 Stop Date: 08/31/23 Status: Ordered Pen [place], 32 G x 4 mm BD [...] 05/12/22 11:54:00 EST, Route to Pharmacy Electronically, [facility] ([facility] ), 175, cm, 05/12/22 11:49:00 EST, H... Start Date: 05/12/22 Status: Ordered Vitamin D3 50,000 intl units oral capsule 1 capsule = 1,250 mcg, By Mouth, Every week, # 8 capsule, 0 Refills, Maintenance, 06/08/22 12:19:00EST, Capsule, [facility] #[id number], Partial fill upon patient request if the prescription is for a schedule II opioid drug., 176, cm, 06/08/22 12:04:00 E... Start Date: 06/08/22 Stop Date: 08/03/22 Status: Ordered Problem List Condition Confirmation Course Effective Dates Status Health Status Informant Unsteady gait Confirmed Active AICD (automatic cardioverter/defibrillato r) present Confirmed 06/21/05 Active BPH - [facility] Confirmed 03/14/21 Active Chronic kidney disease stage 3 Confirmed 05/17/11 Active CAD; s/p CABG 1997, [place] 2006 w/stent; heart transplant 04/30 Confirmed Active Diabetes mellitus with PVD; stents; [facility] Confirmed Active Diabetes mellitus with cataract Confirmed [...] pain Confirmed 06/15/15 Active Microscopic hematuria; [facility] Confirmed Active Neck pain [...] Confirmed 06/21/05 Active Tremor - Neurology at [facility] Confirmed 02/07/18 Active Type 2 DM with renal manifestations; [facility] Confirmed 05/04/16 Active 1EF 20-25% prior to [...] Member Role: Primary Care Nurse Address: Address: [address] [place] [address]- [place] Name: Scarlet Rosenthal RN Position: [facility] SN RN Member Role: Primary Care Nurse Name: Dung Chen MD Position: [facility] Primary Care Physician Member Role: PCP Address: Address: [address] [address]- [place] Name: Heydi Oviedo RN Position: [facility] Hospital People Manager Member Role: Primary Care Nurse Name: Sandra Cat Position: [facility] Outreach Member Role: Lifetime Consulting Physician Name: Luis Peters MD Position: [facility] Renal MD Member Role: Lifetime Consulting Physician Address: Address: [address] [facility] [place] [address]- [place] Name: Zulma Martinez MD Position: [facility] Cardiology MD Member Role: Lifetime Consulting Physician Address: Address: [address] [facility] [address] [place] [address]- [place] Name: Evelyn Jean-Baptiste RN Position: [facility] RN Member Role: Primary Care Nurse Name: Hilda Mcdonald RN Position: [facility] RN Member Role: Primary Care Nurse Care Team Related Persons Name: LUCIA BATEMAN Address: home [address] [place] [address]
--- OUTSIDE RECORDS SUMMARY | 2023-05-15 08:58 | XMS_ITS | Continuity of Care Document ---
Author Name Unknown Organization [facility] Address [address] [place] [address]- Care Team Providers Care Studio Producer Name Role Phone Dung Chen MD Primary Care Physician Encounter [facility] Date(s): 11/11/19 - 12/11/19 [facility] [address] [place] [address]- [facility] Allergies, Adverse Reactions, Alerts Substance Reaction Severity [...] he received this seasons flu vaccine at [place]. 3Admin Note: Patient states he received pneumovax in 2004 at [place]. Medications aspirin 81 mg oral tablet 1 [...] Maintenance, 06/09/19 9:51:00 EST, EC Capsule, [facility]/pharmacy #[id number], 175, cm, 12/05/18 15:23:00 EDT, [...] 16:08:00 EST, Route to Pharmacy Electronically, [facility]/pharmacy #[id number], 175, cm, 12/05/18 15:23:00 EDT, [...]
--- OUTSIDE RECORDS SUMMARY | 2023-05-15 08:58 | XMS_ITS | Continuity of Care Document ---
Author Name Unknown Organization [facility] Address [address] [facility], [address] Floor, [address] [place] [address]- Care Team Providers Care Blocker And Polisher Gold Wheel Name Role Phone Dung Chen MD Primary Care Physician Encounter [facility] Date(s): 05/19/20 - 06/18/20 [facility] [address], [address] Floor, [address] [place] [address] Attending Physician: Scott Mcintosh Admitting Physician: AdmScott [...] he received this seasons flu vaccine at [place]. 3Admin Note: Patient states he received pneumovax in 2004 at [place]. Medications aspirin 81 mg oral tablet 1 [...] 05/19/20 10:59:00 EST, Route to Pharmacy Electronically, [facility]/pharmacy #[id number], Partial fill upon patient [...] 01/28/20 14:36:00 EDT, Route to Pharmacy Electronically, [facility]/pharmacy #[id number], 176, cm, 01/06/20 19:56:00 [...]
--- OUTSIDE RECORDS SUMMARY | 2023-05-15 08:58 | XMS_ITS | Continuity of Care Document ---
Author Name Unknown Organization [facility] Address [address] [place] [address]- Care Team Providers Care Supervisor Game Farm Name Role Phone Dung Chen MD Primary Care Physician [phone] [facility] R [id number] Date(s): 04/12/22 - 04/19/22 [facility] [address] [place], [place] [address] Encounter Diagnosis Headache(Discharge Diagnosis) - 04/12/22 Chest pain, atypical(Discharge Diagnosis) - 04/12/22 Type 2 DM with renal manifestations; [facility](Discharge Diagnosis) - 04/12/22 Attending Physician: Dung Chen MD Allergies, Adverse Reactions, Alerts Substance Reaction Severity Status lisinopril Active Immunizations Given and Recorded Vaccine Date Status Refusal Reason SARS-CoV-2 mRNA ([id number]-pycv-vvscd) vax 07/18/21 Recorded SARS-CoV-2 (COVID-19) mRNA BNT-162b2 [...] he received this seasons flu vaccine at [place]. 3Admin Note: Patient states he received pneumovax in 2004 at [place]. Medications aspirin 81 mg oral delayed release [...] 02/03/22 9:07:00 EDT, Route to Pharmacy Electronically, [facility] ([facility]), 175.3, cm, 01/03/22 13:47:00 EDT, Height, 95.3, kg, 12/06/21 7:36:00 ED... Start Date: 02/03/22 Status: Ordered HumaLOG Cartridge 100 units/mL injectable solution See Instructions, Insert cartridge into Inpen device, inject 16 units subq 3x a day with meals, Maxdaily dose 48 units, E11.65, # 30 mL, 6 Refills, Maintenance, 08/03/21 10:25:00 EDT, [facility], 175, cm, 07/26/21 8:27:00 EDT, [...] Weight Start Date: 04/03/22 Status: Ordered Pen [place], 31 G x 8 mm BD Ultra Fine III See Instructions, # 300 each, Refills 6, Tot. Refills 6, Maintenance, use as directed for Type 2 Diabetes Mellitus for 5 injections per day E11.9, 12/09/21 9:52:00 EDT, Supply, 175.3, cm, 12/06/21 7:36:00 EDT, Height, 95.3, kg, 12/06/21 7:36:00 EDT... Start Date: 12/09/21 Stop Date: 08/31/23 Status: Ordered Pen [place], 32 G x 4 mm BD Ultra [...] r) present Confirmed 06/21/05 Active BPH - [facility] Confirmed 03/14/21 Active Chronic kidney disease stage 3 Confirmed 05/17/11 Active CAD; s/p CABG 1997, [place] 2006 w/stent; heart transplant 04/30 Confirmed Active Diabetes mellitus with PVD; stents; [facility] Confirmed Active Diabetes mellitus with [...] back pain Confirmed 06/15/15 Active Microscopic hematuria; [facility] Confirmed Active Neck pain Confirmed [...] Confirmed 06/21/05 Active Tremor - Neurology at [facility] Confirmed 02/07/18 Active Type 2 DM with renal manifestations; [facility] Confirmed 05/04/16 Active 1EF 20-25% prior to transplant Diagnosis Diagnosis Type Effective Dates Health Status Cl inical Service Informant Headache Discharge Diagnosis 04/12/22 Chest pain, atypical Discharge Diagnosis 04/12/22 Type 2 DM with renal manifestations; [facility] Discharge Diagnosis 04/12/22 Vital Signs Most recent to oldest [Reference Range]: 1 Height 175.3 cm (04/12/22 11:17 AM) Weight 102 kg (04/12/22 11:17 AM) Oxygen Saturation [94-100 %] 100 % (04/12/22 11:17 AM) Pulse Rate [55-90 bpm] 100 bpm *H* (04/12/22 11:17 AM) Body Mass Index [18.5-24.99 kg/m2] 33.19 kg/m2 *>HHI* (04/12/22 11:17 AM) Blood Pressure [90-138/55-84 mm Hg] 146/ 78mm Hg *H* (04/12/22 11:17 AM) Mode of Delivery (Oxygen) Room air (04/12/22 11:17 AM) Blood pressure sites Arm, left (04/12/22 11:17 AM) Weight Obtained Via Standing scale (04/12/22 11:17 AM) Social History Social History Type Response Smoking Status Former smoker, quit more than 30 days ago entered on: 06/01/21 Sex EKG study * Event Display: ECG 12-Lead Authored Date: Please click on pdf link to open report * Event Display: ECG 12-Lead Authored Date: Ventricular Rate: 100 BPM Atrial Rate: 100 BPM P-R Interval: 132 ms QRS Duration: 122 ms Q-T Interval: 390 ms QTC Calculation(Bazett): 503 ms P Drummond: 12 degrees R Drummond: 48 degrees T Drummond: -1 degrees Normal sinus rhythm Right bundle branch block Abnormal ECG When compared with ECG of 22-JUN-2021 08:24, Minimal criteria for Inferior infarct are no longer Present Confirmed by GERONIMO HOLDER MD ([id number]) on 04/13/2022 8:45:10 AM [place]: GERONIMO HOLDER MD Note * Jacqueline Navas: PERFORM, SIGN, VERIFY Event Display: Patient Education/Instruction Authored Date: [facility] *[facility] Adult [facility] Clinical Summary Name RJEI BATEMAN Age 71 Years 1950 PCP Dung Chen MD PCP Visit Date 04/12/2022 10:50:00 Additional Instructions: Scheduled Appointments?? Future Appointments ?[address],??[place],??[address] ?Phone:??[phone]?Fax:??-- ?Appt. Date:??04/12/2022?2:45 PM ?Scheduled Provider:??[address] ?*[facility] [address]??[place],??[address] ?Phone:??--?Fax:??-- ?Appt. Date:??06/21/2022?8:25 AM ?Scheduled Provider:??Sada Oviedo MD Follow-Up Instructions ?? Diagnosis Heart transplant status; Headache, unspecified; Type 2 diabetes mellitus with other diabetic kidneycomplication; Other chest pain Medications: Please continue your medications until treatment is completed or stopped by your provider. Discuss any questions related to medications with your provider. Medications to Continue with No Changes These medications were not printed or sent to your pharmacy Aspirin (aspirin 81 mg oral delayed release tablet) 1 tab(s) Oral Daily for 30 Days. Refills: 0. Next Dose: Duloxetine (duloxetine [...] 13. Next Dose: Durable Medical Equipment (Pen [place], 31 G x 8 mm BD Ultra Fine III) use as directed for Type 2 Diabetes Mellitus for 5 injections per day E11.9. Refills: 6. Next Dose: Durable Medical Equipment (Pen [place], 32 G x 4 mm BD Ultra [...] 48 units, E11.65. Refills: 6. Next Dose: Mycophenolate Sodium (mycophenolic acid 360 [...] lisinopril Medications Given This Visit Future Orders ?CT Head/Brain W/O Contrast? Order Date:04/12/22?- Complete on or after?04/12/22 Vital Signs Height 175.3 cm Weight 102 kg BMI 33.19 kg/m2 Blood Pressure 146 mm Hg/78 mm Hg Temperature Pulse Rate 100 bpm Respiratory Rate 02 Sat Mode of Delivery 100 %/Room air You can now view a summary of your hospital visit from the comfort of your home through a free online portal called [employer]. [employer] is a website that allows you to securely view your medical information including discharge summary, medications and follow-up visits. ??You can alsosend a secure electronic message to your doctor???s office to request appointments, renew medications or just ask a question. You can enroll at [email or web address] or register during your next [...] primary care provider, you may find a [facility] provider by calling [facility] [employer] at [phone]. For information about the plan of care [...] Team Personnel Name: Najma Michael RN Position: [facility] RN Member Role: Primary Care Nurse Name: Mallory Masterson NP Position: [facility] PCO Associate Professional Member Role: Primary Care Nurse Name: Dung Chen MD Position: [facility] Primary Care Physician Member Role: PCP Address: Address: [address] [place] [address]- Name: Ivelisse WARREN, Heydi Ontiveros Position: [facility] Hospital Pipe Line Inspector Member Role: Primary Care Nurse Name: Sandra Cat Position: [facility] Outreach Member Role: Lifetime Consulting Physician Name: Belinda Stevenson RN Position: [facility] RN Member Role: Primary Care Nurse Name: Luis Peters MD Position: [facility] Renal MD Member Role: Lifetime Consulting Physician Address: Address: [address] [place] [address] [address] [facility] [place] [place] [address]- Name: Zulma Martinez MD Position: [facility] Cardiology MD Member Role: Lifetime Consulting Physician Address: Address: [address] [place] [address]- Name: Hilda Mcdonald RN Position: [facility] RN Member Role: Primary Care Nurse Care Team Related Persons Name: BATEMAN LUCIA Address: home [address] [place] [address]
--- OUTSIDE RECORDS SUMMARY | 2023-05-15 08:58 | XMS_ITS | Continuity of Care Document ---
Author Name Unknown Organization [facility] Address [address] [place] [address]- Care Team Providers Care Proposal Analyst Name Role Phone Dung Chen MD Primary Care Physician [place] [facility] [place] - 05/[place]/22 [facility] [address] [place], [place] [address] Allergies, Adverse Reactions, Alerts Substance Reaction Severity Status lisinopril Active Immunizations Given and Recorded Vaccine Date Status Refusal Reason SARS-CoV-2 mRNA (hocayft-cfhq-wmcvy) vax 07/18/21 Recorded SARS-CoV-2 (COVID-19) mRNA BNT-162b2 [...] he received this seasons flu vaccine at [place]. 3Admin Note: Patient states he received pneumovax in 2004 at [place]. Medications amLODIPine 5 mg oral tablet 5 mg, 1, tablet, By Mouth, Daily, # 90 tablet, Refills 1, Tot. Refills 1, Maintenance, 05/12/22 11:54:00 EST, Route to Pharmacy Electronically, [facility] ([facility] ), Partial fill upon patient request if the prescription is for a... Start Date: 05/12/22 Status: Ordered aspirin 81 mg oral delayed release tablet 81 mg, 1, tablet, By Mouth, Daily, # 30 tablet, Refills 0, Tot. Refills 0, Maintenance, 06/08/21 11:45:00 EST, Route to Pharmacy Electronically, [facility]/pharmacy #[id number], Partial fill upon patient request if the prescription is for a schedule II opioid drug... Start Date: 06/08/21 Stop Date: 07/08/21 Status: Ordered cephalexin monohydrate 500 mg oral capsule 1 capsule = 500 mg, By Mouth, 4 times a day, for 12 days, # 48 capsule, 0 Refills, Acute 05/15/22 10:08:00 EST, 05/03/22 10:08:00 EST, Capsule, [facility]/pharmacy #[id number], Partial fill upon patient request [...] Weight Start Date: 04/03/22 Status: Ordered Pen [place]ullinger, 31 G x 8 mm BD Ultra Fine III See Instructions, # 300 each, Refills 6, Tot. Refills 6, Maintenance, use as directed for Type 2 Diabetes Mellitus for 5 injections per day E11.9, 12/09/21 9:52:00 EDT, Supply, 175.3, cm, 12/06/21 7:36:00 EDT, Height, 95.3, kg, 12/06/21 7:36:00 EDT... Start Date: 12/09/21 Stop Date: 08/31/23 Status: Ordered Pen Zullinger, 32 G x 4 mm BD Ultra [...] 05/12/22 11:54:00 EST, Route to Pharmacy Electronically, [facility] ([facility] ), 175, cm, 05/12/22 [...] r) present Confirmed 06/21/05 Active BPH - [facility] Confirmed 03/14/21 Active Chronic kidney disease stage 3 Confirmed 05/17/11 Active CAD; s/p CABG 1997, [place] 2006 w/stent; heart transplant 04/30 Confirmed Active [...] back pain Confirmed 06/15/15 Active Microscopic hematuria; [facility] Confirmed Active Neck pain [...] Care Team Personnel Name: Nenita Song Position: [facility] RN Supv Member Role: Primary Care Nurse Name: Najma Michael RN Position: [facility] RN Member Role: Primary Care Nurse Name: Mallory Masterson NP Position: [facility] PCO Associate Professional Member Role: Primary Care Nurse Name: Scarlet Rosenthal RN Position: [facility] RN Member Role: Primary Care Nurse Name: Dung Chen MD Position: [facility] Primary Care Physician Member Role: PCP Address: Address: [facility] [facility] [place] [address]- [place] Name: Ivelisse WARREN, Heydi Ontiveros Position: [facility] Hospital Military Communications Specialist Member Role: Primary Care Nurse Name: Sandra Cat Position: [facility] Outreach Member Role: Lifetime Consulting Physician Name: Belinda Stevenson RN Position: [facility] RN Member Role: Primary Care Nurse Name: Luis Peters MD Position: [facility] Renal MD Member Role: Lifetime Consulting Physician Address: Address: [address] [facility] [place] [address]- [place] Name: Zulma Martinez MD Position: [facility] Cardiology MD Member Role: Lifetime Consulting Physician Address: Address: [address] [place] [address] [place] [address]- [place] Name: Hilda Mcdonald RN Position: [facility] RN Member Role: Primary Care Nurse Care Team Related Persons Name: BHAVANA LUCIA Address: [address] [place] [address]
--- OUTSIDE RECORDS SUMMARY | 2023-05-15 08:58 | XMS_ITS | Continuity of Care Document ---
Author Name Unknown Organization [facility] Address [address] [place] [address]- Care Team Providers Care Wire Worker Name Role Phone Dung Chen MD Primary Care Physician [place] [facility] [place] 12[place]07[place]21 - 01/06/22 [facility] [address] [place] [phone]- [place] Allergies, Adverse Reactions, Alerts Substance Reaction Severity Status lisinopril Active Immunizations Given and Recorded Vaccine Date Status Refusal Reason SARS-CoV-2 mRNA (tcagjjr-dole-czabl) vax 07/18/21 Recorded SARS-CoV-2 (COVID-19) mRNA BNT-162b2 [...] he received this seasons flu vaccine at [place]. 3Admin Note: Patient states he received pneumovax in 2004 at [place]. Medications aspirin 81 mg oral delayed release tablet 81 mg, 1, tablet, By Mouth, Daily, # 30 tablet, Refills 0, Tot. Refills 0, Maintenance, 06/08/21 11:45:00 EST, Route to Pharmacy Electronically, [facility]/pharmacy #[id number], Partial fill upon patient request if the [...] capsule, Refills 0, Route to Pharmacy Electronically, [facility], 175.3, cm, 09/27/21 10:36:00 EDT, Height, 86.2, kg, 08/26/21 12:59:00 EDT, Dry Weight Start Date: 11/10/21 Status: Ordered HumaLOG Cartridge 100 units/mL injectable solution See Instructions, Insert cartridge into Inpen device, inject 16 units subq 3x a day with meals, Maxdaily dose 48 units, E11.65, # 30 mL, 6 Refills, Maintenance, 08/03/21 10:25:00 EDT, [email or web address], 175, cm, 07/26/21 8:27:00 EDT, [...] 11/11/21 Stop Date: 08/08/22 Status: Ordered Pen [place], 31 G x 8 mm BD Ultra Fine III See Instructions, # 300 each, Refills 6, Tot. Refills 6, Maintenance, use as directed for Type 2 Diabetes Mellitus for 5 injections per day E11.9, 12/09/21 9:52:00 EDT, Supply, 175.3, cm, 12/06/21 7:36:00 EDT, Height, 95.3, kg, 12/06/21 7:36:00 EDT... Start Date: 12/09/21 Stop Date: 08/31/23 Status: Ordered Pen [place], 32 G x 4 mm BD Ultra [...] 09/27/21 11:24:00 EDT, Route to Pharmacy Electronically, [facility]/pharmacy #[id number], 175.3,cm, 09/27/21 10:36:00 [...] (automatic cardioverter/defibrillator) present(Confirmed) 06/21/05 Active BPH - [facility](Confirmed) 03/14/21 Active Chronic kidney disease stage 3(Confirmed) 05/17/11 Active CAD; s/p CABG 1997, [place] 2006 w/stent; heart transplant 04/30(Confirmed) Active Diabetes mellitus(Confirmed) Active Diabetes mellitus with PVD; stents; [facility](Confirmed) Active Diabetes mellitus with cataract(Confirmed) Active [...] hypercholesterolemia(Confirmed) 06/21/05 Active Tremor - Neurology at [facility](Confirmed) 02/07/18 Active Type 2 DM with renal manifes tations; [facility](Confirmed) 05/04/16 Active 1EF 20-25% prior to transplant Social History Social History Type Response Smoking Status Former smoker, quit more than 30 days ago entered on: 06/01/21 Sex Care Team Personnel Name: Dung Chen MD Address: [address]
--- OUTSIDE RECORDS SUMMARY | 2023-05-15 08:58 | XMS_ITS | Continuity of Care Document ---
Author Name Unknown Organization [facility] Address [address] [place] [address]- Care Team Providers Care Cook Supervisor Name Role Phone Dung Chen MD Primary Care Physician Encounter [facility] Date(s): 02/08/23 - 03/10/23 [facility] [address] [place] [id number] Allergies, Adverse Reactions, Alerts Substance Reaction [...] virus vaccine, inactivated 03/07/06 Quinn rded SARS-CoV-2(COVID-19)mRNA-LNP vac([id number]) 02/06/23 Recorded tetanus/diphtheria/pertussis, acel(Tdap) 2 12/08/22 Given tetanus/diphtheria/pertussis, acel(Tdap) 03/27/12 Recorded pneumococcal 20-valent conjugate vaccine 3 12/08/22 Given [id number] 12y+ bivalent booster vax 04/15/22 Recorded SARS-CoV-2 mRNA (tjxtxsc-hrsu-ukycr) vax 07/18/21 Recorded SARS-CoV-2 (COVID-19) mRNA BNT-162b2 [...] Exp. #) SEP 23 2Result Comment: [facility] [id number] 3Result Comment: [facility] [id number] 4Admin Note: Pt states he received this seasons flu vaccine at [place]. 5Admin Note: Patient states he received pneumovax in 2004 at [place]. Medications amLODIPine 10 mg oral tablet 10 [...] 06/08/21 11:45:00 EST, Route to Pharmacy Electronically, [facility]/pharmacy #[id number], Partial fill upon patient request if the [...] 3 Refills, Maintenance, 01/19/23 18:26:00 EDT, [facility]al [place],[facility], Partial fill upon patient request [...] 12/08/22 11:17:00 EDT, Solution, [facility] ([facility]), Partial fillupon patient request if the prescription is for a s... Start Date: 12/08/22 Status: Ordered valsartan 160 mg oral tablet 160 mg, 1, tablet, By Mouth, Daily, # 90 tablet, Refills 0, Tot. Refills 0, Maintenance, 02/12/23 22:19:00 EDT, Route to Pharmacy Electronically, [facility]/pharmacy #[id number], Partial fill upon patient requestif the prescription is for a schedule II opioid channing... Start Date: 02/12/23 Status: Ordered Problem List Condition Confirmation Course Effective Dates Status Health Status Informant Unsteady gait Confirmed Active Amputated toe of left foot Confirmed Active Weakness generalized Confirmed Active AICD (automatic cardioverter/defibrillato r) present Confirmed 06/21/05 Active BPH - [facility] Confirmed 03/14/21 Active Chronic kidney disease stage 3 Confirmed 05/17/11 Active CAD; s/p CABG 1997, [place] 2006 w/stent; heart transplant 04/30 Confirmed Active Diabetes mellitus with PVD; stents; [facility] [place] [facility] Confirmed Active Diabetes mellitus with [...] back pain Confirmed 06/15/15 Active Microscopic hematuria; [facility] Confirmed Active Neck [...] B12 Confirmed Active Tremor - Neurology at [facility] Confirmed 02/07/18 Active Type 2 DM with renal manifestations; [facility] Confirmed 05/04/16 Active Vitamin D deficiency Confirmed Active 1EF 20-25% prior to transplant Social History Social History Type Response Smoking Status Former smoker, quit more than 30 days ago entered on: 10/24/22 Sex Patient Care team information Care Team Personnel Name: Nenita Song Position: [facility] RN Supv Member Role: Primary Care Nurse Name: Sherice Mariscal RN Position: [facility] RN Member Role: Primary Care Nurse Name: Najma Michael RN Position: [facility] RN Member Role: Primary Care Nurse Name: Aleja PATTERN MAKER PROGRAMERMallory Position: Reference Physician Member Role: Primary Care Nurse Address: Address: [address] [place] [address]- [place] Name: Scarlet Rosenthal RN Position: [facility] SN RN Member Role: Primary Care Nurse Name: Dung Chen MD Position: [facility] Physician - Primary Care Member Role: PCP Address: Address: [address] [address]- [place] Name: Heydi Oviedo RN Position: [facility] Manager Clinical Research Member Role: Primary Care Nurse Name: Mercy Veliz RN Position: [facility] RN Member Role: Primary Care Nurse Name: Sandra Cat Position: [facility] Outreach Member Role: Lifetime Consulting Physician Name: Nicki Garcia RN Position: [facility] RN Member Role: Primary Care Nurse Name: Vane Davalos RN Position: [facility] RN Member Role: Primary Care Nurse Name: Belinda Stevenson RN Position: [facility] SN RN Member Role: Primary Care Nurse Name: Luis Peters MD Position: [facility] Renal MD Member Role: Lifetime Consulting Physician Address: Address: [address] [facility] [address] [facility] [place] [address]- [place] Name: Zulma Martinez MD Position: [facility] Cardiology MD Member Role: Lifetime Consulting Physician Address: Address: [address] [facility] [address] [place] [address]- [place] Name: Evelyn Jean-Baptiste RN Position: [facility] RN Member Role: Primary Care Nurse Name: Hilda Mcdonald RN Position: [facility] RN Member Role: Primary Care Nurse Care Team Related Persons Name: LUCIA BATEMAN Address: home [address] [place] [address]
--- OUTSIDE RECORDS SUMMARY | 2023-05-15 08:58 | XMS_ITS | Continuity of Care Document ---
Author Name Unknown Organization [facility] Address [address] [place] [address]- Care Team Providers Care Trim Machine Operator Name Role Phone Dung Chen MD Primary Care Physician [phone] [place] [facility] [place] [facility] [address] [place] [id number] Attending Physician: Admtr, [id number] Admitting Physician: [...] he received this seasons flu vaccine at [place]. 3Admin Note: Patient states he received pneumovax in 2004 at [place]. Medications aspirin 81 mg oral delayed release tablet 81 mg, 1, tablet, By Mouth, Daily, # 30 tablet, Refills 0, Tot. Refills 0, Maintenance, 06/08/21 11:45:00 EST, Route to Pharmacy Electronically, [facility]/pharmacy #[id number], Partial fill upon patient request if the prescription is for a schedule II opioid drug... Start Date: 06/08/21 Stop Date: 07/08/21 Status: Ordered Carafate 1 gm oral tablet 2 Gm, 2, tablet, By Mouth, 4 times a day, # 240 tablet, Refills 0, Tot. Refills 0, Maintenance, 06/08/21 11:45:00 EST, Route to Pharmacy Electronically, [facility]/pharmacy #[id number], Partial fill upon patient request if [...] 05/27/19 16:08:00 EST, Route to Pharmacy Electronically, [facility]/pharmacy #[id number], 175, cm, 12/05/18 15:23:00 EDT, Height, [...]
--- OUTSIDE RECORDS SUMMARY | 2023-05-15 08:58 | XMS_ITS | Continuity of Care Document ---
Author Name Unknown Organization [facility] Address [address] [place] [address]- Care Team Providers Care Associate Financial Planner Name Role Phone Gustavo CALLOWAY, Dung Primary Care Physician En[place] [facility] [place] [id number] Date(s): 10/13/22 - 12/04/22 [facility] [address] [place] [id number] Attending Physician: Dugn Chen MD Admitting Physician: Dung Chen MD Referring Physician: Belkis Ovalle MD Allergies, Adverse Reactions, Alerts Substance Reaction Severity Status lisinopril Active Immunizations Given and Recorded Vaccine Date Status Refusal Reason [id number] 12y+ bivalent booster vax 04/15/22 Recorded influenza [...] vaccine, inactivated 03/07/06 Quinn rded SARS-CoV-2 mRNA ([id number]-[id number]-pjpbs) vax 07/18/21 Recorded SARS-CoV-2 (COVID-19) mRNA BNT-162b2 [...] he received this seasons flu vaccine at [place]. 3Admin Note: Patient states he received pneumovax in 2004 at [place]. Medications amLODIPine 10 mg oral tablet 10 mg, 1, tablet, By Mouth, Daily, # 90 tablet, Refills 3, Tot. Refills 3, Maintenance, 11/03/22 11:30:00 EDT, Route to Pharmacy Electronically, [facility] ([facility] ), Partial fill upon patient request if the prescription is for... Start Date: 11/03/22 Status: Ordered apixaban Starter Pack 5 mg oral tablet = 10 mg, By Mouth, 2 times a day, first dose on 10/15 at 2100, # 1 pack/packet, 0 Refills, Maintenance, 10/15/22 10:04:00 EDT, Tablet, [facility], Partial fill upon patient request if theprescription is for a schedule II opioid drug., 173... Start Date: 10/15/22 Status: Ordered aspirin 81 mg oral delayed release tablet 81 mg, 1, tablet, By Mouth, Daily, # 30 tablet, Refills 0, Tot. Refills 0, Maintenance, 06/08/21 11:45:00 EST, Route to Pharmacy Electronically, [facility]/pharmacy #[id number], Partial fill upon patient request if the [...] 0 Refills, Maintenance, 04/12/22 19:33:00 EST, Capsule, [facility]/pharmacy #[id number], Partial fill upon patient request [...] Date: 09/25/21 Status: Ordered Freestyle [place] 2 [place] Freestyle Nona 2 [place], See Instructions, # 1 each, Refills [...] Maintenance, 08/23/22 12:58:00 EDT, [facility] ([facility]), 176, cm... Start Date: 08/23/22 Status: Ordered insulin degludec (concentrated) 200 units/mL subcutaneous solution See Instructions, 20 units in the AM and 30 units in the PM 30 days supply, # 75 mL, 3 Refills, Maintenance, 10/15/22 10:03:00 EDT, [facility] 3, Partial fill upon patient request [...] Weight Start Date: 08/17/22 Status: Ordered Pen [place], 31 G x 8 mm BD Ultra Fine III See Instructions, # 300 each, Refills 6, Tot. Refills 6, Maintenance, use as directed for Type 2 Diabetes Mellitus for 5 injections per day E11.9, 12/09/21 9:52:00 EDT, Supply, 175.3, cm, 12/06/21 7:36:00 EDT, Height, 95.3, kg, 12/06/21 7:36:00 EDT... Start Date: 12/09/21 Stop Date: 08/31/23 Status: Ordered Pen [place], 32 G x 4 mm BD Ultra [...] Route to Pharmacy Electronically, [facility] ([facility]), 173, cm, 10/12/22 19:31:00 EDT, Height, 106.... Start Date: 10/12/22 Status: Ordered Vitamin D3 50,000 intl units oral capsule 1 capsule = 1,250 mcg, By Mouth, Every week, # 8 capsule, 0 Refills, Maintenance, 06/08/22 12:19:00EST, Capsule, [facility]/pharmacy #[id number], Partial fill upon patient request if the prescription is for a schedule II opioid drug., 176, cm, 06/08/22 12:04:00 E... Start Date: 06/08/22 Stop Date: 08/03/22 Status: Ordered Problem List Condition Confirmation Course Effective Dates Status Health Status Informant Unsteady gait Confirmed Active Amputated toe of left foot Confirmed Active AICD (automatic cardioverter/defibrillato r) present Confirmed 06/21/05 Active BPH - [facility] Confirmed 03/14/21 Active Chronic kidney disease stage 3 Confirmed 05/17/11 Active CAD; s/p CABG 1997, [place] 2006 w/stent; heart transplant 04/30 Confirmed Active DVT, lower extremity Confirmed Active Diabetes mellitus with PVD; stents; [facility] [place] [facility] Confirmed Active Diabetes [...] back pain Confirmed 06/15/15 Active Microscopic hematuria; [facility] Confirmed Active Neck pain [...] Confirmed 06/21/05 Active Tremor - Neurology at [facility] Confirmed 02/07/18 Active Type 2 DM with renal manifestations; [facility] Confirmed 05/04/16 Active 1EF 20-25% prior to transplant Social History Social History Type Response Smoking Status Former smoker, quit more than 30 days ago entered on: 10/24/22 Sex Patient Care team information Care Team Personnel Name: Nenita Song Position: [facility] RN Supv Member Role: Primary Care Nurse Name: Sherice Mariscal RN Position: [facility] RN Member Role: Primary Care Nurse Name: Najma Michael RN Position: [facility] RN Member Role: Primary Care Nurse Name: Aleja BATCH OR CONTINUOUS STILL OPERATORMallory Position: Reference Physician Member Role: Primary Care Nurse Address: Address: [address] [place] [address]- Name: Scarlet Rosenthal RN Position: [facility] SN RN Member Role: Primary Care Nurse Name: Jade WARREN, Khurram Position: [facility] RN Member Role: Primary Care Nurse Name: Dung Chen MD Position: [facility] Physician - Primary Care Member Role: PCP Address: Address: [address] [place] [address]- [place] Name: Heydi Oviedo RN Position: [facility] Hospital Sap Security Consultant Member Role: Primary Care Nurse Name: Sandra Cat Position: [facility] Outreach Member Role: Lifetime Consulting Physician Name: Nicki Garcia RN Position: S RN Member Role: Primary Care Nurse Name: Vane Davalos RN Position: S RN Member Role: Primary Care Nurse Name: Luis Peters MD Position: [facility] Renal MD Member Role: Lifetime Consulting Physician Address: Address: [address] [facility] [address] [facility] [place] [address]- Name: Zulma Martinez MD Position: [facility] Cardiology MD Member Role: Lifetime Consulting Physician Address: Address: [address] [place] [address] [place] [address]- Name: Evelyn Jean-Baptiste RN Position: S RN Member Role: Primary Care Nurse Name: Hilda Mcdonald RN Position: S RN Member Role: Primary Care Nurse Care Team Related Persons Name: BHAVANA LUCIA Address: home [address] [place] [id number]
--- OUTSIDE RECORDS SUMMARY | 2023-05-15 08:58 | XMS_ITS | Continuity of Care Document ---
Author Name Unknown Organization [facility] Address [address] [place] [address]- Care Team Providers Care Coding Assistant Name Role Phone Dung Chen MD Primary Care Physician Encounter [facility] Date(s): 09/30/22 - 10/30/22 [facility] [address] [place] [address] Attending Physician: Admtr, Ar8 Admitting Physician: Admtr, Ar8 Referring Physician: Admtr, Ar8 Allergies, Adverse Reactions, Alerts Substance Reaction Severity Status lisinopril Active Immunizations Given and Recorded Vaccine Date Status Refusal Reason SARS-CoV-2 mRNA (jkzzfmf-ycxv-ldwru) vax 07/18/21 Recorded SARS-CoV-2 (COVID-19) mRNA BNT-162b2 [...] he received this seasons flu vaccine at [facility]. 3Admin Note: Patient states he received pneumovax in 2004 at [place]. Medications amLODIPine 5 mg oral tablet 1 [...] 0 Refills, Maintenance, 10/15/22 10:04:00 EDT, Tablet, [facility], Partial fill upon patient request if theprescription is for a schedule II opioid drug., 173... Start Date: 10/15/22 Status: Ordered aspirin 81 mg oral delayed release tablet 81 mg, 1, tablet, By Mouth, Daily, # 30 tablet, Refills 0, Tot. Refills 0, Maintenance, 06/08/21 11:45:00 EST, Route to Pharmacy Electronically, [facility]/pharmacy #[id number], Partial fill upon patient request if the [...] Date: 09/25/21 Status: Ordered Freestyle [place] 2 [place] Freestyle Nona 2 [place], See Instructions, # 1 each, Refills 0, [...] E11.65, 10/25/22 9:49:00 EDT, Supply, 173, cm, 07/10/23 17:27:00 EDT,... Start Date: 10/25/22 Status: Ordered [...] 02/03/22 9:07:00 EDT, Route to Pharmacy Electronically, [facility] ([facility]), 175.3, cm, 01/03/22 13:47:00 EDT, Height, 95.3, kg, 12/06/21 7:36:00 ED... Start Date: 02/03/22 Status: Ordered Humalog Cartridge 100 units/mL subcutaneous injection See Instructions, INSERT CARTRIDGE INTO INPEN DEVICE AND INJECT SUBCUTANEOUSLY 16 UNITS 3 TIMES DAILY WITH MEALS - MAX DAILY DOSE: 48 UNITS, # 45 mL, 3 Refills, Maintenance, 08/23/22 12:58:00 EDT, [facility] ([facility]), 176, cm... Start Date: 08/23/22 Status: Ordered insulin degludec (concentrated) 200 units/mL subcutaneous solution See Instructions, 20 units in the AM and 30 units in the PM 30 days supply, # 75 mL, 3 Refills, Maintenance, 10/15/22 10:03:00 EDT, [facility], Partial fill upon patient [...] Weight Start Date: 08/17/22 Status: Ordered Pen [place], 31 G x 8 mm BD Ultra Fine III See Instructions, # 300 each, Refills 6, Tot. Refills 6, Maintenance, use as directed for Type 2 Diabetes Mellitus for 5 injections per day E11.9, 12/09/21 9:52:00 EDT, Supply, 175.3, cm, 12/06/21 7:36:00 EDT, Height, 95.3, kg, 12/06/21 7:36:00 EDT... Start Date: 12/09/21 Stop Date: 08/31/23 Status: Ordered Pen [place], 32 G x 4 mm BD Ultra [...] Route to Pharmacy Electronically, [facility] ([facility]), 173, cm, 10/12/22 19:31:00 EDT, [...] r) present Confirmed 06/21/05 Active BPH - [facility] Confirmed 03/14/21 Active BMI 33.0-33.9,adult Confirmed Active Chronic kidney disease stage 3 Confirmed 05/17/11 Active CAD; s/p CABG 1997, [place] 2006 w/stent; heart transplant 04/30 Confirmed Active DVT, lower extremity Confirmed Active Diabetes mellitus with PVD; stents; [facility] [place] [facility] Confirmed Active Diabetes mellitus with [...] back pain Confirmed 06/15/15 Active Microscopic hematuria; [facility] Confirmed Active Neck [...] Confirmed 06/21/05 Active Tremor - Neurology at [facility] Confirmed 02/07/18 Active Type 2 DM with renal manifestations; [facility] Confirmed 05/04/16 Active 1EF 20-25% prior [...] 30 days ago entered on: 10/24/22 Sex Laboratory * Event Display: Non BH Lab Results Authored Date: * Event Display: Non BH Lab Results Authored Date: Cardiology Outpatient Note * Yanci Vale: PERFORM Event Display: Cardiology Note Office Authored Date: Radiology * Yanci Vale: PERFORM Event Display: Radiology Results Scanned Authored Date: [id number] Patient Care team information Care Team Personnel Name: Rigoberto Siri Position: [facility] RN Member Role: Primary Care Nurse Name: Nenita Song Position: [facility] RN Supv Member Role: Primary Care Nurse Name: Sherice Mariscal RN Position: [facility] RN Member Role: Primary Care Nurse Name: Najma Michael RN Position: [facility] RN Member Role: Primary Care Nurse Name: Aleja DEVELOPMENTAL TRAINING COUNSELORMallory Position: Reference Physician Member Role: Primary Care Nurse Address: Address: [address] [place] [address]- [place] Name: Scarlet Rosenthal RN Position: [facility] SN RN Member Role: Primary Care Nurse Name: Khurram Hansen RN Position: [facility] RN Member Role: Primary Care Nurse Name: Dung Chen MD Position: [facility] Physician - Primary Care Member Role: PCP Address: Address: [address] [place] [address]- [place] Name: Heydi Oviedo RN Position: [facility] Gas Pumping Station Helper Member Role: Primary Care Nurse Name: Sandra Cat Position: [facility] Outreach Member Role: Lifetime Consulting Physician Name: Nicki Garcia RN Position: [facility] RN Member Role: Primary Care Nurse Name: Vane Davalos RN Position: [facility] RN Member Role: Primary Care Nurse Name: Luis Peters MD Position: [facility] Renal MD Member Role: Lifetime Consulting Physician Address: Address: [address] [facility] [address] [facility], [place] [address]- [place] Name: Zulma Martinez MD Position: [facility] Cardiology MD Member Role: Lifetime Consulting Physician Address: Address: [address] [facility] [address] [place] [address]- [place] Name: Evelyn Jean-Baptiste RN Position: [facility] RN Member Role: Primary Care Nurse Name: Hilda Mcdonald RN Position: [facility] RN Member Role: Primary Care Nurse Care Team Related Persons Name: LUCIA BATEMAN Address: home [address] [place] [address]
--- OUTSIDE RECORDS SUMMARY | 2023-05-15 08:58 | XMS_ITS | Continuity of Care Document ---
Author Name Unknown Organization [facility] ter Address [address] [place] [address]- Care Team Providers Care Knowledge Engineer Name Role Phone Dung Chen MD Primary Care Physician Encounter [facility] Date(s): 10/15/22 - 11/14/[address] [address] Attending Physician: Not on Staff, Attending MD Admitting Physician: Not on Staff, Admitting MD Referring Physician: Not on Staff, Referring MD Allergies, Adverse Reactions, Alerts Substance Reaction Severity Status lisinopril Active Immunizations Given and Recorded Vaccine Date Status Refusal Reason SARS-CoV-2 mRNA (xjjfrbq-aflc-noiiy) vax 07/18/21 Recorded SARS-CoV-2 (COVID-19) mRNA BNT-162b2 [...] he received this seasons flu vaccine at [place]. 3Admin Note: Patient states he received pneumovax in 2004 at [place]. Medications amLODIPine 10 mg oral tablet 10 mg, 1, tablet, By Mouth, Daily, # 90 tablet, Refills 3, Tot. Refills 3, Maintenance, 11/03/22 11:30:00 EDT, Route to Pharmacy Electronically, [facility] ([facility] ), Partial fill upon patient request if the prescription is for... Start Date: 11/03/22 Status: Ordered apixaban Starter Pack 5 mg oral tablet = 10 mg, By Mouth, 2 times a day, first dose on 10/15 at 2100, # 1 pack/packet, 0 Refills, Maintenance, 10/15/22 10:04:00 EDT, Tablet, [facility], Partial fill upon patient request if theprescription is for a schedule II opioid drug., 173... Start Date: 10/15/22 Status: Ordered aspirin 81 mg oral delayed release tablet 81 mg, 1, tablet, By Mouth, Daily, # 30 tablet, Refills 0, Tot. Refills 0, Maintenance, 06/08/21 11:45:00 EST, Route to Pharmacy Electronically, [facility]/pharmacy #[id number], Partial fill upon patient request if the [...] Date: 09/25/21 Status: Ordered Freestyle Nona 2 [place] Freestyle Nona 2 [place], See Instructions, # 1 each, Refills 0, [...] Maintenance, 08/23/22 12:58:00 EDT, [facility] ([facility]), 176, cm... Start Date: 08/23/22 Status: Ordered insulin degludec (concentrated) 200 units/mL subcutaneous solution See Instructions, 20 units in the AM and 30 units in the PM 30 days supply, # 75 mL, 3 Refills, Maintenance, 10/15/22 10:03:00 EDT, [facility], Partial fill upon patient [...] Weight Start Date: 08/17/22 Status: Ordered Pen [place], 31 G x 8 mm BD Ultra Fine III See Instructions, # 300 each, Refills 6, Tot. Refills 6, Maintenance, use as directed for Type 2 Diabetes Mellitus for 5 injections per day E11.9, 12/09/21 9:52:00 EDT, Supply, 175.3, cm, 12/06/21 7:36:00 EDT, Height, 95.3, kg, 12/06/21 7:36:00 EDT... Start Date: 12/09/21 Stop Date: 08/31/23 Status: Ordered Pen [place], 32 G x 4 mm BD Ultra [...] Route to Pharmacy Electronically, [facility] ([facility]), 173, cm, 10/12/22 19:31:00 EDT, [...] r) present Confirmed 06/21/05 Active BPH - [facility] Confirmed 03/14/21 Active BMI 33.0-33.9,adult Confirmed Active Chronic kidney disease stage 3 Confirmed 05/17/11 Active CAD; s/p CABG 1997, [place] 2006 w/stent; heart transplant 04/30 Confirmed Active DVT, lower extremity Confirmed Active Diabetes mellitus with PVD; stents; [facility] [place] [facility] Confirmed Active Diabetes mellitus with [...] back pain Confirmed 06/15/15 Active Microscopic hematuria; [facility] Confirmed Active Neck pain [...] Confirmed 06/21/05 Active Tremor - Neurology at [facility] Confirmed 02/07/18 Active Type 2 DM with renal manifestations; [facility] Confirmed 05/04/16 Active 1EF 20-25% prior to transplant Social History Social History Type Response Smoking Status Former smoker, quit more than 30 days ago entered on: 10/24/22 Sex Patient Care team information Care Team Personnel Name: Nenita Song Position: [facility] RN Supv Member Role: Primary Care Nurse Name: Sherice Mariscal RN Position: [facility] RN Member Role: Primary Care Nurse Name: Najma Michael RN Position: [facility] RN Member Role: Primary Care Nurse Name: Mallory Masterson NP Position: Reference Physician Member Role: Primary Care Nurse Address: Address: [address] [place] [address]- Name: Scarlet Rosenthal RN Position: [facility] RN Member Role: Primary Care Nurse Name: Khurram Hansen RN Position: [facility] RN Member Role: Primary Care Nurse Name: Dung Chen MD Position: [facility] Physician - Primary Care Member Role: PCP Address: Address: [address] [place] [address]- Name: Heydi Oviedo RN Position: [facility] Hospital Case Fitter Member Role: Primary Care Nurse Name: Sandra Cat Position: [facility] Outreach Member Role: Lifetime Consulting Physician Name: Nicki Garcia RN Position: [facility] RN Member Role: Primary Care Nurse Name: Vane Davalos RN Position: [facility] RN Member Role: Primary Care Nurse Name: Luis Peters MD Position: [facility] Renal MD Member Role: Lifetime Consulting Physician Address: Address: [address] [facility] [place] [address]- [place] Name: Zulma Martinez MD Position: [facility] Cardiology MD Member Role: Lifetime Consulting Physician Address: Address: [address] [facility] [address] [place] [address]- [place] Name: Evelyn Jean-Baptiste RN Position: S RN Member Role: Primary Care Nurse Name: Hilda Mcdonald RN Position: [facility] RN Member Role: Primary Care Nurse Care Team Related Persons Name: LUCIA BATEMAN Address: home [address] [place] [address]
--- OUTSIDE RECORDS SUMMARY | 2023-05-15 08:58 | XMS_ITS | Continuity of Care Document ---
Author Name Unknown Organization [facility] Address [address] [place] [address]- Care Team Providers Care Continuous Wave Operator Name Role Phone Dung Chen MD Primary Care Physician [phone] Encounter [facility] Date(s): 09/15/22 - 10/15/22 [facility] [address] [place] [address]- [place] Allergies, Adverse Reactions, Alerts Substance Reaction Severity Status lisinopril Active Immunizations Given and Recorded Vaccine Date Status Refusal Reason SARS-CoV-2 mRNA (qcwpgbk-cdsl-dahhu) vax 07/18/21 Recorded SARS-CoV-2 (COVID-19) mRNA BNT-162b2 [...] he received this seasons flu vaccine at [place]. 3Admin Note: Patient states he received pneumovax in 2004 at [place]. Medications amLODIPine 10 mg oral tablet 10 mg, 1, tablet, By Mouth, Daily, # 30 tablet, Refills 0, Tot. Refills 0, Maintenance, 10/15/22 10:03:00 EDT, Route to Pharmacy Electronically, [facility], Partial fill upon patient request if the prescription is for a schedule II opioi... Start Date: 10/15/22 Stop Date: 11/14/22 Status: Ordered apixaban Starter Pack 5 mg oral tablet = 10 mg, By Mouth, 2 times a day, first dose on 10/15 at 2100, # 1 pack/packet, 0 Refills, Maintenance, 10/15/22 10:04:00 EDT, Tablet, [facility], Partial fill upon patient request if theprescription is for a schedule II opioid drug., 173... Start Date: 10/15/22 Status: Ordered aspirin 81 mg oral delayed release tablet 81 mg, 1, tablet, By Mouth, Daily, # 30 tablet, Refills 0, Tot. Refills 0, Maintenance, 06/08/21 11:45:00 EST, Route to Pharmacy Electronically, [facility]/pharmacy #[id number], Partial fill upon patient request [...] 10/28/22 10:05:00 EDT, 10/15/22 10:05:00 EDT, Tablet, [facility], Partial fill upon patient request if [...] 0 Refills, Maintenance, 04/12/22 19:33:00 EST, Capsule, [facility]/pharmacy #[id number], Partial fill upon patient request [...] 02/03/22 9:07:00 EDT, Route to Pharmacy Electronically, [facility] ([facility]), 175.3, cm, 01/03/22 13:47:00 EDT, Height, 95.3, kg, 12/06/21 7:36:00 ED... Start Date: 02/03/22 Status: Ordered Humalog Cartridge 100 units/mL subcutaneous injection See Instructions, INSERT CARTRIDGE INTO INPEN DEVICE AND INJECT SUBCUTANEOUSLY 16 UNITS 3 TIMES DAILY WITH MEALS - MAX DAILY DOSE: 48 UNITS, # 45 mL, 3 Refills, Maintenance, 08/23/22 12:58:00 EDT, [facility] ([facility]), 176, cm... Start Date: 08/23/22 Status: Ordered insulin degludec (concentrated) 200 units/mL subcutaneous solution See Instructions, 20 units in the AM and 30 units in the PM 30 days supply, # 75 mL, 3 Refills, Maintenance, 10/15/22 10:03:00 EDT, [facility], Partial fill upon patient [...] 10/15/22 10:02:00 EDT, Route to Pharmacy Electronically, [facility], Partial fill upon patient request if... Start Date: 10/15/22 Stop Date: 10/22/22 Status: Ordered pantoprazole 40 mg oral delayed release tablet 1 tablet, By Mouth, 2 times a day, # 180 tablet, 3 Refills, Maintenance, 08/17/22 7:40:00 EDT, 176,cm, 07/19/22 11:16:00 EDT, Height, 101.1, kg, 05/02/22 16:03:00 EST, Dry Weight Start Date: 08/17/22 Status: Ordered Pen [place], 31 G x 8 mm BD Ultra Fine III See Instructions, # 300 each, Refills 6, Tot. Refills 6, Maintenance, use as directed for Type 2 Diabetes Mellitus for 5 injections per day E11.9, 12/09/21 9:52:00 EDT, Supply, 175.3, cm, 12/06/21 7:36:00 EDT, Height, 95.3, kg, 12/06/21 7:36:00 EDT... Start Date: 12/09/21 Stop Date: 08/31/23 Status: Ordered Pen [place], 32 G x 4 mm BD Ultra [...] 09/01/22 13:19:00 EDT, Route to Pharmacy Electronically, [id number], Partial fill upon patient request [...] Route to Pharmacy Electronically, [facility] ([facility]), 173, cm, 10/12/22 19:31:00 EDT, [...] r) present Confirmed 06/21/05 Active BPH - [facility] Confirmed 03/14/21 Active BMI 33.0-33.9,adult Confirmed Active Chronic kidney disease stage 3 Confirmed 05/17/11 Active CAD; s/p CABG 1997, [place] 2006 w/stent; heart transplant 04/30 Confirmed Active DVT, lower extremity Confirmed Active Diabetes mellitus with PVD; stents; [facility] Confirmed Active Diabetes mellitus with cataract [...] back pain Confirmed 06/15/15 Active Microscopic hematuria; [facility] Confirmed Active Neck pain [...] comorbidity Confirmed Active Tremor - Neurology at [facility] Confirmed 02/07/18 Active Type 2 DM with renal manifestations; [facility] Confirmed 05/04/16 Active 1EF 20-25% prior [...] Member Role: Primary Care Nurse Address: Address: [address] [place] [address]- [place] Name: Scarlet Rosenthal RN Position: [facility] SN RN Member Role: Primary Care Nurse Name: Khurram Hansen RN Position: [facility] RN Member Role: Primary Care Nurse Name: Dung Chen MD Position: [facility] Physician - Primary Care Member Role: PCP Address: Address: [address], [place] [address]- [place] Name: Heydi Oviedo RN Position: [facility] Hospital Travel Accommodation Inspector Member Role: Primary Care Nurse Name: Sandra Cat Position: [facility] Outreach Member Role: Lifetime Consulting Physician Name: Nicki Garcia RN Position: [facility] RN Member Role: Primary Care Nurse Name: Vane Davalos RN Position: [facility] RN Member Role: Primary Care Nurse Name: Luis Peters MD Position: [facility] Renal MD Member Role: Lifetime Consulting Physician Address: [facility] [address] [facility] [address] [facility] [place] [address]- [place] Name: Zulma Martinez MD Position: [facility] Cardiology MD Member Role: Lifetime Consulting Physician Address: Address: [address] [place] [address] [place] [address]- [place] Name: Evelyn Jean-Baptiste RN Position: [facility] RN Member Role: Primary Care Nurse Name: Hilda Mcdonald RN Position: [facility] RN Member Role: Primary Care Nurse Care Team Related Persons Name: LUCIA BATEMAN Address: home [address] [place] [address]
--- OUTSIDE RECORDS SUMMARY | 2023-05-15 08:58 | XMS_ITS | Continuity of Care Document ---
Author Name Unknown Organization [facility] Address [address] [place] [address]- Care Team Providers Care Resource Specialist Name Role Phone Dung Chen MD Primary Care Physician [phone] Encounter [facility] Date(s): 04/19/22 - 05/19/22 [facility] Diabetes [address] [place] [id number] Allergies, Adverse Reactions, Alerts Substance Reaction Severity Status lisinopril Active Immunizations Given and Recorded Vaccine Date Status Refusal Reason SARS-CoV-2 mRNA (pcqohrb-ejmk-gqvoc) vax 07/18/21 Recorded SARS-CoV-2 (COVID-19) mRNA BNT-162b2 [...] he received this seasons flu vaccine at [place]. 3Admin Note: Patient states he received pneumovax in 2004 at [place]. Medications amLODIPine 5 mg oral tablet 5 mg, 1, tablet, By Mouth, Daily, # 90 tablet, Refills 1, Tot. Refills 1, Maintenance, 05/12/22 11:54:00 EST, Route to Pharmacy Electronically, [facility] ([facility] ), Partial fill upon patient [...] 02/03/22 9:07:00 EDT, Route to Pharmacy Electronically, [facility] ([facility]), 175.3, cm, 01/03/22 13:47:00 EDT, [...] Weight Start Date: 04/03/22 Status: Ordered Pen [place], 31 G x 8 mm BD Ultra Fine III See Instructions, # 300 each, Refills 6, Tot. Refills 6, Maintenance, use as directed for Type 2 Diabetes Mellitus for 5 injections per day E11.9, 12/09/21 9:52:00 EDT, Supply, 175.3, cm, 12/06/21 7:36:00 EDT, Height, 95.3, kg, 12/06/21 7:36:00 EDT... Start Date: 12/09/21 Stop Date: 08/31/23 Status: Ordered Pen [place], 32 G x 4 mm BD Ultra [...] 05/12/22 11:54:00 EST, Route to Pharmacy Electronically, [facility] ([facility] ), 175, cm, 05/12/22 11:49:00 [...] r) present Confirmed 06/21/05 Active BPH - [facility] Confirmed 03/14/21 Active Chronic kidney disease stage 3 Confirmed 05/17/11 Active CAD; s/p CABG 1997, [place] 2006 w/stent; heart transplant 04/30 Confirmed Active Diabetes mellitus with PVD; stents; [facility] Confirmed Active Diabetes mellitus with cataract [...] back pain Confirmed 06/15/15 Active Microscopic hematuria; [facility] Confirmed Active Neck pain Confirmed [...] Active Type 2 DM with renal manifestations; [facility] Confirmed 05/04/16 Active 1EF 20-25% prior to transplant Social History Social History Type Response Smoking Status Former smoker, quit more than 30 days ago entered on: 06/01/21 Sex Patient Care team information Care Team Personnel Name: Nenita Song Position: [facility] RN Supv Member Role: Primary Care Nurse Name: Najma Michael RN Position: [facility] RN Member Role: Primary Care Nurse Name: Mallory Masterson NP Position: [facility] PCO Associate Professional Member Role: Primary Care Nurse Name: Scarlet Rosenthal RN Position: [facility] RN Member Role: Primary Care Nurse Name: Dung Chen MD Position: [facility] Primary Care Physician Member Role: PCP Address: Address: [address] [place] [address] Name: eHydi Oviedo RN Position: [facility] Hospital Houseperson Member Role: Primary Care Nurse Name: Sandra Cat Position: [facility] Outreach Member Role: Lifetime Consulting Physician Name: Belinda Stevenson RN Position: [facility] RN Member Role: Primary Care Nurse Name: Luis Peters MD Position: [facility] Renal MD Member Role: Lifetime Consulting Physician Address: Address: [address] [facility] [place] [address]- [place] Name: Zulma Martinez MD Position: [facility] Cardiology MD Member Role: Lifetime Consulting Physician Address: Address: [address] [facility] [address] [place] [address]- Name: Hilda Mcdonald RN Position: [facility] RN Member Role: Primary Care Nurse Care Team Related Persons Name: LUCIA BATEMAN Address: home [address] [place] [address]
--- OUTSIDE RECORDS SUMMARY | 2023-05-15 08:58 | XMS_ITS | Continuity of Care Document ---
Author Name Unknown Organization [facility] [place] Address [address] [place] [address]- Care Team Providers Care Air Brush Operator Name Role Phone Dung Chen MD Primary Care Physician Encounter [facility] Date(s): 08/02/19 - 11/30/19 [facility] [place] [address] [place] [address]- [facility] Attending Physician: Margarito Ewing MD Allergies, Adverse [...] he received this seasons flu vaccine at [place]. 3Admin Note: Patient states he received pneumovax in 2004 at [place]. Medications aspirin 81 mg oral tablet 1 [...] Refills, Maintenance, 06/09/19 9:51:00 EST, EC Capsule, [facility]/pharmacy #[id number], 175, cm, 12/05/18 15:23:00 EDT, Height, [...] EC Tablet Start Date: 04/07/17 Status: Ordered [employer]™ [employer] Verio Test Strips See Instructions, # 300 [...] EST, Route to Pharmacy Electronically, [facility]/pharmacy #[id number], 175, cm, 12/05/18 15:23:00 EDT, Height, [...]
--- OUTSIDE RECORDS SUMMARY | 2023-05-15 08:58 | XMS_ITS | Continuity of Care Document ---
Author Name Unknown Organization [facility] Address [address] [place] [address]- Care Team Providers Care Rice Drier Operator Name Role Phone Dung Chen MD Primary Care Physician Encounter [facility] [place] Date(s): 04/12/22 - 05/12/22 [facility] [address] [place], [place] [address] Allergies, Adverse Reactions, Alerts Substance Reaction Severity Status lisinopril Active Immunizations Given and Recorded Vaccine Date Status Refusal Reason SARS-CoV-2 mRNA (zuxenzw-[id number]) vax 07/18/21 Recorded SARS-CoV-2 (COVID-19) mRNA BNT-162b2 vac 01/15/21 Recorded SARS-CoV-2 (COVID-19) mRNA BNT-162b2 vac 06/13/20 Recorded SARS-CoV-2 (COVID-19) mRNA BNT-162b2 vac 05/17/20 Recorded influenza virus vaccine, inactivated 01/07/21 Quinn rded influenza virus vaccine, inactivated 01/13/20 Qunin rded influenza virus vaccine, inactivated 02/06/19 Quinn [...] he received this seasons flu vaccine at [place]. 3Admin Note: Patient states he received pneumovax in 2004 at [place]. Medications amLODIPine 5 mg oral tablet 5 mg, 1, tablet, By Mouth, Daily, # 90 tablet, Refills 1, Tot. Refills 1, Maintenance, 05/12/22 11:54:00 EST, Route to Pharmacy Electronically, [facility] ([facility] ), Partial fill upon patient request if the prescription is for a... Start Date: 05/12/22 Status: Ordered aspirin 81 mg oral delayed release tablet 81 mg, 1, tablet, By Mouth, Daily, # 30 tablet, Refills 0, Tot. Refills 0, Maintenance, 06/08/21 11:45:00 EST, Route to Pharmacy Electronically, [facility]/pharmacy #[id number], Partial fill upon patient request if the prescription is for a schedule II opioid drug... Start Date: 06/08/21 Stop Date: 07/08/21 Status: Ordered cephalexin monohydrate 500 mg oral capsule 1 capsule = 500 mg, By Mouth, 4 times a day, for 12 days, # 48 capsule, 0 Refills, Acute 05/15/22 10:08:00 EST, 05/03/22 10:08:00 EST, Capsule, [facility]/pharmacy #[id number], Partial fill upon [...] Weight Start Date: 04/03/22 Status: Ordered Pen [place], 31 G x 8 mm BD Ultra Fine III See Instructions, # 300 each, Refills 6, Tot. Refills 6, Maintenance, use as directed for Type 2 Diabetes Mellitus for 5 injections per day E11.9, 12/09/21 9:52:00 EDT, Supply, 175.3, cm, 12/06/21 7:36:00 EDT, Height, 95.3, kg, 12/06/21 7:36:00 EDT... Start Date: 12/09/21 Stop Date: 08/31/23 Status: Ordered Pen [place], 32 G x 4 mm BD Ultra [...] 05/12/22 11:54:00 EST, Route to Pharmacy Electronically, [facility] ([facility] ), 175, cm, 05/12/22 11:49:00 [...] r) present Confirmed 06/21/05 Active BPH - [facility] Confirmed 03/14/21 Active Chronic kidney disease stage 3 Confirmed 05/17/11 Active CAD; s/p CABG 1997, [place] 2006 w/stent; heart transplant 04/30 Confirmed Active Diabetes mellitus with PVD; stents; [facility] Confirmed Active Diabetes mellitus with cataract [...] back pain Confirmed 06/15/15 Active Microscopic hematuria; [facility] Confirmed Active Neck pain Confirmed [...] Confirmed 06/21/05 Active Tremor - Neurology at [facility] Confirmed 02/07/18 Active Type 2 DM with renal manifestations; [facility] Confirmed 05/04/16 Active 1EF 20-25% prior to transplant Social History Social History Type Response Smoking Status Former smoker, quit more than 30 days ago entered on: 06/01/21 Sex Patient Care team information Care Team Personnel Name: Nenita Song Position: [facility] RN Supv Member Role: Primary Care Nurse Name: Najma Michael RN Position: [facility] RN Member Role: Primary Care Nurse Name: Mallory Masterson NP Position: [facility] PCO Associate Professional Member Role: Primary Care Nurse Name: Scarlet Rosenthal RN Position: [facility] RN Member Role: Primary Care Nurse Name: Dung Chen MD Position: [facility] Primary Care Physician Member Role: PCP Address: Address: [facility] [facility] [place] [address]- [place] Name: Ivelisse WARREN, Heydi Ontiveros Position: [facility] Hospital Cracker Dough Mixer Member Role: Primary Care Nurse Name: Sandra Cat Position: [facility] Outreach Member Role: Lifetime Consulting Physician Name: Belinda Stevenson RN Position: [facility] RN Member Role: Primary Care Nurse Name: Luis Peters MD Position: [facility] Renal MD Member Role: Lifetime Consulting Physician Address: Address: [address] [facility] [place] [address]- [place] Name: Zulma Martinez MD Position: [facility] Cardiology MD Member Role: Lifetime Consulting Physician Address: Address: [address] [place] [address] [place] [address]- [place] Name: Hilda Mcdonald RN Position: [facility] RN Member Role: Primary Care Nurse Care Team Related Persons Name: BHAVANA LUCIA Address: [address] [place] [address]
--- OUTSIDE RECORDS SUMMARY | 2023-05-15 08:58 | XMS_ITS | Continuity of Care Document ---
Author Name Unknown Organization [facility] Address [address] [facility], [address] Floor, [address] [place] [address]- Care Team Providers Care Professor Of Pathology Name Role Phone Dung Chen MD Primary Care Physician Encounter [facility] [place] Date(s): 08/24/20 - 09/23/20 [facility] [address], [address], [address] [place] [id number] Allergies, Adverse Reactions, Alerts Substance Reaction [...] he received this seasons flu vaccine at [place]. 3Admin Note: Patient states he received pneumovax in 2004 at [place]. Medications aspirin 81 mg oral tablet 1 tablet = 81 mg, By Mouth, Daily, # 30 tablet, 0 Refills, Maintenance, 04/07/17 12:54:17, Tablet Start Date: 04/07/17 Status: Ordered Ativan 1 mg oral tablet See Instructions, 1 tablet By Mouth 30 minutes before MRI. May repeat once at time of test., # 2 tablet, 0 Refills, Maintenance, 08/17/20 17:02:00 EDT, [facility]/pharmacy #[id number], Partial fill upon patient request if the [...] 06/09/19 9:51:00 EST, EC Capsule, [facility]/pharmacy #[id number], 175, cm, 12/05/18 15:23:00 EDT, [...] EST, Route to Pharmacy Electronically, [facility]/pharmacy #[id number], Partial fill upon patient request [...] Compound Start Date: 10/15/18 Status: Ordered Pen [place], 31 G x 5 mm BD Ultra Fine III See Instructions, # 120 each, Refills 6, Tot. Refills 6, Maintenance, injects 4 times a day E11.65,08/24/20 9:11:00 EDT, fax [phone], Compound, 176, cm, 08/17/20 16:06:00 EDT, Height, 94.72, kg, 10/09/19 14:08:00 EDT, Dry Weight Start Date: 08/24/20 Status: Ordered Plavix 75 mg oral tablet 75 mg, 1, tablet, By Mouth, Daily, # 90 tablet, Refills 3, Tot. Refills 3, Maintenance, 01/28/20 14:36:00 EDT, Route to Pharmacy Electronically, [facility]/pharmacy #[id number], 176, cm, 01/06/20 19:56:00 EDT, [...] EST, Route to Pharmacy Electronically, [facility]/pharmacy #[id number], 175, cm, 12/05/18 15:23:00 EDT, [...]
--- OUTSIDE RECORDS SUMMARY | 2023-05-15 08:58 | XMS_ITS | Continuity of Care Document ---
Author Name Unknown Organization [facility] ter Address [address] [place] [address]- Care Team Providers Care Rehab Physician Name Role Phone Dung Chen MD Primary Care Physician Encounter [facility] [place] Date(s): 12/06/21 - 12/06/[address] [id number] Discharge Disposition: A-D/C Home Attending Physician: Jarrell Zacarias MD Admitting Physician: Jarrell Zacarias MD Referring Physician: Jarrell Zacarias MD Allergies, Adverse Reactions, Alerts Substance Reaction Severity Status lisinopril Active Immunizations Given and Recorded Vaccine Date Status Refusal Reason SARS-CoV-2 mRNA (mmjeuak-zwun-ijzyz) vax 07/18/21 Recorded SARS-CoV-2 (COVID-19) mRNA BNT-162b2 [...] Quinn rded influenza virus vaccine, inactivated 05/04/11 Qunin rded influenza virus vaccine, inactivated 01/22/10 Quinn [...] he received this seasons flu vaccine at [place]. 3Admin Note: Patient states he received pneumovax in 2004 at [place]. Medications aspirin 81 mg oral delayed release tablet 81 mg, 1, tablet, By Mouth, Daily, # 30 tablet, Refills 0, Tot. Refills 0, Maintenance, 06/08/21 11:45:00 EST, Route to Pharmacy Electronically, [facility]/pharmacy #[id number], Partial fill upon patient request if the [...] capsule, Refills 0, Route to Pharmacy Electronically, [facility], 175.3, cm, 09/27/21 10:36:00 EDT, Height, 86.2, kg, 08/26/21 12:59:00 EDT, Dry Weight Start Date: 11/10/21 Status: Ordered HumaLOG Cartridge 100 units/mL injectable solution See Instructions, Insert cartridge into Inpen device, inject 16 units subq 3x a day with meals, Maxdaily dose 48 units, E11.65, # 30 mL, 6 Refills, Maintenance, 08/03/21 10:25:00 EDT, [facility], 175, cm, 07/26/21 8:27:00 EDT, [...] 11/11/21 Stop Date: 08/08/22 Status: Ordered Pen [place], 31 G x 8 mm BD Ultra Fine III See Instructions, # 300 each, Refills 6, Tot. Refills 6, Maintenance, use as directed for Type 2 Diabetes Mellitus for 5 injections per day E11.9, 12/01/21 10:18:00 EDT, Supply, 175.3, cm, 12/01/21 9:43:00 EDT, Height, 86.2, kg, 08/26/21 12:59:00 E... Start Date: 12/01/21 Stop Date: 08/23/23 Status: Ordered Pen [place], 32 G x 4 mm BD Ultra [...] (automatic cardioverter/defibrillator) present(Confirmed) 06/21/05 Active BPH - [facility](Confirmed) 03/14/21 Active Chronic kidney disease stage 3(Confirmed) 05/17/11 Active CAD; s/p CABG 1997, [place] 2006 w/stent; heart transplant 04/30(Confirmed) Active Diabetes mellitus(Confirmed) Active Diabetes mellitus with PVD; stents; [facility](Confirmed) Active Diabetes mellitus with cataract(Confirmed) Active [...] hypercholesterolemia(Confirmed) 06/21/05 Active Tremor - Neurology at [facility](Confirmed) 02/07/18 Active Type 2 DM with renal manifes tations; [facility](Confirmed) 05/04/16 Active 1EF 20-25% prior to transplant Procedures Procedure Date Related Diagnosis Body Site Status Esophagogastroduodenoscopy w ith biopsy & esophageal dilation 12/06/21 Completed Vital Signs Most recent to oldest [Reference Range]: 1 2 3 Height 175.3 cm (12/06/21 7:36 AM) Oxygen Saturation [94-100 %] 98 % (12/06/21 9:02 AM) 97 % (12/06/21 8:54 AM) 100 % (12/06/21 8:43 AM) Pulse Rate [55-90 bpm] 79 bpm (12/06/21 9:02 AM) 79 bpm (12/06/21 8:54 AM) 80 bpm (12/06/21 8:43 AM) Blood Pressure [90-138/55-84 mm Hg] 133/59mm Hg (12/06/21 9:02 AM) 133/77mm Hg (12/06/21 8:54 AM) 153/82mm Hg *H* (12/06/21 8:43 AM) Respiratory Rate [16-30 br/min] 23 br/min (12/06/21 9:02 AM) 20 br/min (12/06/21 8:54 AM) 16 br/min (12/06/21 8:43 AM) Temperature [96.8-100.4 DegF] 97.8 DegF (12/06/21 7:36 AM) Liters per Minute 4 L/min (12/06/21 8:43 AM) Mode of Delivery (Oxygen) Room air (12/06/21 9:02 AM) Room air (12/06/21 8:54 AM) Simple face mask (12/06/21 8:43 AM) Blood pressure sites Arm, left (12/06/21 9:02 AM) Arm, left (12/06/21 8:54 AM) Arm, left (12/06/21 8:43 AM) Temperature Route Temporal (12/06/21 7:36 AM) Dry Weight 95.3 kg (12/06/21 7:36 AM) Dry Weight Obtained Via Patient/family s tated (12/06/21 7:36 AM) Social History Social History Type Response Smoking Status Former smoker, quit more than 30 days ago entered on: 06/01/21 Sex
--- OUTSIDE RECORDS SUMMARY | 2023-05-15 08:59 | XMS_ITS | Continuity of Care Document ---
Author Name Unknown Organization [facility] Address [address] [place] [address]- Care Team Providers Care Veterinarian Helper Name Role Phone Dung Chen MD Primary Care Physician Encounter [facility] [place] Date(s): 03/31/21 - 07/29/21 [facility] [address] [place] [id number] Attending Physician: Sada Oviedo MD Admitting Physician: Sada Oviedo MD Referring Physician: Dung Chen MD Allergies, [...] he received this seasons flu vaccine at [place]. 3Admin Note: Patient states he received pneumovax in 2004 at [place]. Medications aspirin 81 mg oral delayed release tablet 81 mg, 1, tablet, By Mouth, Daily, # 30 tablet, Refills 0, Tot. Refills 0, Maintenance, 06/08/21 11:45:00 EST, Route to Pharmacy Electronically, [facility]/pharmacy #[id number], Partial fill upon patient request if the prescription is for a schedule II opioid drug... Start Date: 06/08/21 Stop Date: 07/08/21 Status: Ordered Carafate 1 gm oral tablet 2 Gm, 2, tablet, By Mouth, 4 times a day, # 240 tablet, Refills 0, Tot. Refills 0, Maintenance, 06/08/21 11:45:00 EST, Route to Pharmacy Electronically, [facility]/pharmacy #[id number], Partial fill upon patient request if [...] 3x a day with meals, Maxdaily dose 50 units, E11.65, # 30 mL, 6 Refills, Maintenance, 07/22/21 18:13:00 EDT, [facility], Partial fill upon patient request if the pre... Start Date: 07/22/21 Status: Ordered mycophenolic acid 360 mg oral [...] EST, Route to Pharmacy Electronically, [facility]/pharmacy #[id number], 175, cm, 12/05/18 15:23:00 EDT, Height, [...]
--- OUTSIDE RECORDS SUMMARY | 2023-05-15 08:59 | XMS_ITS | Continuity of Care Document ---
Author Name Unknown Organization [facility] ter Address [address] [place] [address]- Care Team Providers Care Railroad Police Officer Name Role Phone Dung Chen MD Primary Care Physician [facility] [facility] [place] 01/06/20 - 01/06/[address] [address]- [facility] Discharge Disposition: A-D/C Home Attending Physician: Felix Duque MD Admitting Physician: Felix Duque MD Referring Physician: Felix Duque MD Allergies, Adverse Reactions, Alerts Substance Reaction [...] he received this seasons flu vaccine at [place]. 3Admin Note: Patient states he received pneumovax in 2004 at [place]. Medications aspirin 81 mg oral tablet 1 [...] 01/07/20 9:00:00 EDT, Route to Pharmacy Electronically, [facility]/pharmacy #[id number], 176, cm, 01/06/20 [...] to Pharmacy Electronically, [facility]/pharmacy #[id number], 175, cm, [...] [Reference Range]: 1 2 3 4 Height 176 cm (01/06/20 7:56 PM) 176 cm (01/06/20 5:38 PM) 176 cm (01/06/20 10:01 AM) 176 cm (01/06/20 10:01 AM) Weight 89.4 kg (01/06/20 10:01 AM) 89.4 kg (01/06/20 10:01 AM) Oxygen Saturation [94-100 %] 96 % (01/06/20 7:56 PM) 100 % (01/06/20 5:38 PM) 99 % (01/06/20 5:24 PM) Pulse Rate [55-90 bpm] 89 bpm (01/06/20 7:56 PM) 84 bpm (01/06/20 5:38 PM) 94 bpm *H* (01/06/20 10:01 AM) Body Mass Index [18.5-24.99] 28.86 *H* (01/06/20 10:01 AM) Blood Pressure [90-138/55-84 mm Hg] 145/85mm Hg *H* (01/06/20 7:56 PM) 136/86mm Hg (01/06/20 5:38 PM) 140/78mm Hg *H* (01/06/20 5:24 PM) Respiratory Rate [16-30 br/min] 18 br/min (01/06/20 7:56 PM) 18 br/min (01/06/20 5:38 PM) 18 br/min (01/06/20 5:24 PM) Temperature [96.8-100.4 DegF] 97.3 DegF (01/06/20 7:56 PM) 97.5 DegF (01/06/20 5:38 PM) 96.7 DegF *L* (01/06/20 2:00 PM) Mode of Delivery (Oxygen) Room air (01/06/20 7:56 PM) Room air (01/06/20 5:38 PM) Room air (01/06/20 5:24 PM) Blood pressure sites Arm, right (01/06/20 7:56 PM) Arm, left (01/06/20 5:24 PM) Arm, left (01/06/20 5:00 PM) Temperature Route Oral (01/06/20 7:56 PM) Oral (01/06/20 5:38 PM) Temporal (01/06/20 2:00 PM) Weight Obtained Via Standing scale (01/06/20 10:01 AM) Social History Social History Type Response Smoking Status Former smoker; [employer] user in household: No; Other: Quit 1997; entered on: 03/08/17 Sex
--- OUTSIDE RECORDS SUMMARY | 2023-05-15 08:59 | XMS_ITS | Continuity of Care Document ---
Author Name Unknown Organization [facility] Address [address] [place] [address]- Care Team Providers Care Systems Analyst Engineer Name Role Phone Not on Staff, PCP Primary Care Physician Unavail able Encounter [facility] Date(s): 09/02/21 - 10/02/21 [facility] [address] [place], [place] [address] Allergies, Adverse Reactions, Alerts Substance Reaction Severity Status lisinopril Active Immunizations Given and Recorded Vaccine Date Status Refusal Reason SARS-CoV-2 mRNA (kftkcto-vzny-arnxg) vax 07/18/21 Recorded SARS-CoV-2 (COVID-19) mRNA BNT-162b2 [...] he received this seasons flu vaccine at [place]. 3Admin Note: Patient states he received pneumovax in 2004 at [place]. Medications aspirin 81 mg oral delayed release tablet 81 mg, 1, tablet, By Mouth, Daily, # 30 tablet, Refills 0, Tot. Refills 0, Maintenance, 06/08/21 11:45:00 EST, Route to Pharmacy Electronically, [facility]/pharmacy #[id number], Partial fill upon patient request if the [...] 2 Refills, Maintenance, 09/27/21 11:24:00 EDT, Tablet, [facility]/pharmacy #[id number], Partial fill upon patient request if [...] 09/27/21 Stop Date: 06/24/22 Status: Ordered Pen [place], 32 G x 4 mm BD Ultra [...] 09/27/21 11:24:00 EDT, Route to Pharmacy Electronically, [facility]/pharmacy #[id number], 175.3,cm, 09/27/21 10:36:00 EDT, Height, [...] (automatic cardioverter/defibrillator) present(Confirmed) 06/21/05 Active BPH - [facility](Confirmed) 03/14/21 Active Chronic kidney disease stage 3(Confirmed) 05/17/11 Active CAD; s/p CABG 1997, [place] 2006 w/stent; heart transplant 04/30(Confirmed) Active Diabetes mellitus(Confirmed) Active Diabetes mellitus with PVD; stents; [facility](Confirmed) Active Diabetes mellitus with cataract(Confirmed) [...] hypercholesterolemia(Confirmed) 06/21/05 Active Tremor - Neurology at [facility](Confirmed) 02/07/18 Active 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
--- OUTSIDE RECORDS SUMMARY | 2023-05-15 08:59 | XMS_ITS | Continuity of Care Document ---
Author Name Unknown Organization [facility] ter Address [address] [place] [id number]- Care Team Providers Care Compliance Investigator Name Role Phone Dung Chne MD Primary Care Physician Encounter [facility] [place] Date(s): 05/28/19 - 05/28/[address] [address]- [facility] Attending Physician: Not on Staff, Attending MD [...] he received this seasons flu vaccine at [place]. 3Admin Note: Patient states he received pneumovax in 2004 at [place]. Medications aspirin 81 mg oral tablet 1 [...] Refills, Maintenance, 06/09/19 9:51:00 EST, EC Capsule, [facility]/pharmacy #[id number], 175, cm, 12/05/18 15:23:00 EDT, Height, 84.5, kg, 05/22/18 9:29:00 EST, Dry Weight Start Date: 06/09/19 Stop Date: 12/06/19 Status: Ordered duloxetine 60 mg oral enteric coated capsule 1 capsule = 60 mg, By Mouth, 2 times a day, for 30 days, # 60 capsule, 5 Refills, Hard Stop 06/09/19 9:51:00 EST, 12/11/18 9:51:00 EDT, EC Capsule, [facility]/pharmacy #[id number] Start Date: 12/11/18 Stop Date: [...] 05/27/19 16:08:00 EST, Route to Pharmacy Electronically, [facility]/pharmacy #[id number], 175, cm, 12/05/18 15:23:00 EDT, [...]
--- OUTSIDE RECORDS SUMMARY | 2023-05-15 08:59 | XMS_ITS | Continuity of Care Document ---
Author Name Unknown Organization [facility] Address [address] [place] [address]- Care Team Providers Care Television Mechanic Name Role Phone Dung Chen MD Primary Care Physician [facility] Date(s): 05/05/22 - 06/04/22 [facility] [address] [place], [place] [address] Allergies, Adverse Reactions, Alerts Substance Reaction Severity Status lisinopril Active Immunizations Given and Recorded Vaccine Date Status Refusal Reason SARS-CoV-2 mRNA (iujjjdv-uldr-cscbl) vax 07/18/21 Recorded SARS-CoV-2 (COVID-19) mRNA BNT-162b2 [...] 03/07/06 Quinn rded hepatitis B adult vaccine 12/11/12 Recorded Hepatitis A Adult Vaccine 03/27/12 Recorded [...] he received this seasons flu vaccine at [place]. 3Admin Note: Patient states he received pneumovax in 2004 at [place]. Medications amLODIPine 5 mg oral tablet 5 mg, 1, tablet, By Mouth, Daily, # 90 tablet, Refills 1, Tot. Refills 1, Maintenance, 05/12/22 11:54:00 EST, Route to Pharmacy Electronically, [facility] ([facility] ), Partial fill upon patient request if the prescription is for a... Start Date: 05/12/22 Status: Ordered aspirin 81 mg oral delayed release tablet 81 mg, 1, tablet, By Mouth, Daily, # 30 tablet, Refills 0, Tot. Refills 0, Maintenance, 06/08/21 11:45:00 EST, Route to Pharmacy Electronically, [facility]/pharmacy #[id number], Partial fill upon patient [...] 02/03/22 9:07:00 EDT, Route to Pharmacy Electronically, [facility]), 175.3, cm, 01/03/22 13:47:00 EDT, [...] Maintenance, 05/24/22 12:19:00 EST, [facility] ([facility] ), Partial fill upon patient [...] Weight Start Date: 04/03/22 Status: Ordered Pen [place], 31 G x 8 mm BD Ultra Fine III See Instructions, # 300 each, Refills 6, Tot. Refills 6, Maintenance, use as directed for Type 2 Diabetes Mellitus for 5 injections per day E11.9, 12/09/21 9:52:00 EDT, Supply, 175.3, cm, 12/06/21 7:36:00 EDT, Height, 95.3, kg, 12/06/21 7:36:00 EDT... Start Date: 12/09/21 Stop Date: 08/31/23 Status: Ordered Pen [place], 32 G x 4 mm BD Ultra [...] 05/12/22 11:54:00 EST, Route to Pharmacy Electronically, [facility] ([facility] ), 175, cm, 05/12/22 11:49:00 EST, H... Start Date: 05/12/22 Status: Ordered Problem List Condition Confirmation Course Effective Dates Status Health Status Informant AICD (automatic cardioverter/defibrillato r) present Confirmed 06/21/05 Active BPH - [facility] Confirmed 03/14/21 Active Chronic kidney disease stage 3 Confirmed 05/17/11 Active CAD; s/p CABG 1997, [place] 2006 w/stent; heart transplant 04/30 Confirmed Active Diabetes mellitus with PVD; stents; [facility] Confirmed Active Diabetes mellitus with cataract Confirmed [...] back pain Confirmed 06/15/15 Active Microscopic hematuria; [facility] Confirmed Active Neck pain Confirmed [...] Confirmed 06/21/05 Active Tremor - Neurology at [facility] Confirmed 02/07/18 Active Type 2 DM with renal manifestations; [facility] Confirmed 05/04/16 Active 1EF 20-25% prior to transplant Social History Social History Type Response Smoking Status Former smoker, quit more than 30 days ago entered on: 06/01/21 Sex Patient Care team information Care Team Personnel Name: Nenita Song Position: [facility] RN Supv Member Role: Primary Care Nurse Name: Najma Michael RN Position: [facility] RN Member Role: Primary Care Nurse Name: Mallory Masterson NP Position: Reference Physician Member Role: Primary Care Nurse Address: Address: [address] [place] [address]- [place] Name: Scarlet Rosenthal RN Position: [facility] RN Member Role: Primary Care Nurse Name: Dung Chen MD Position: [facility] Primary Care Physician Member Role: PCP Address: Address: [address] [place] [address]- Name: Heydi Oviedo RN Position: [facility] Hospital Tax Compliance Officer Member Role: Primary Care Nurse Name: Sandra Cat Position: [facility] Outreach Member Role: Lifetime Consulting Physician Name: Belinda Stevenson RN Position: S RN Member Role: Primary Care Nurse Name: Luis Peters MD Position: [facility] Renal MD Member Role: Lifetime Consulting Physician Address: Address: [address] [facility] [place] [address]- Name: Zulma Martinez MD Position: [facility] Cardiology MD Member Role: Lifetime Consulting Physician Address: Address: [address] [place] [address] [place] [address]- Name: Hilda Mcdonald RN Position: S RN Member Role: Primary Care Nurse Care Team Related Persons Name: LUCIA BATEMAN Address: home [address] [place] [address]
--- OUTSIDE RECORDS SUMMARY | 2023-05-15 08:59 | XMS_ITS | Continuity of Care Document ---
Author Name Unknown Organization [facility] Address [address] [place] [address]- Care Team Providers Care Assistant Associate Full Professor Name Role Phone Dung Chen MD Primary Care Physician Encounter [facility] Date(s): 04/05/21 - 05/05/[address] [address] Attending Physician: AdmScott simmons Admitting Physician: AdmtrScott [...] he received this seasons flu vaccine at [place]. 3Admin Note: Patient states he received pneumovax in 2004 at [place]. Medications aspirin 81 mg oral tablet 1 tablet = 81 mg, By Mouth, Daily, # 30 tablet, 0 Refills, Maintenance, 04/07/17 12:54:17, Tablet Start Date: 04/07/17 Status: Ordered Ativan 1 mg oral tablet See Instructions, 1 tablet By Mouth 30 minutes before MRI. May repeat once at time of test., # 2 tablet, 0 Refills, Maintenance, 08/17/20 17:02:00 EDT, [facility]/pharmacy #[id number], Partial fill upon patient request if the [...] Refills, Maintenance, 06/09/19 9:51:00 EST, EC Capsule, [facility]/pharmacy #[id number], 175, cm, 12/05/18 15:23:00 [...] 3, 04/13/21 9:50:00 EST,Route to Pharmacy Electronically, [facility]/pharmacy #[id number], 176, cm, 03/30/21 10:45:00 EST, Height, 94.72, kg, 10/09/19 14:08:00 EDT, Dry Weight Start Date: 04/13/21 Status: Ordered HumaLOG Cartridge 100 units/mL injectable solution See Instructions, Use 3 times daily before meals. E11.65.; for use with InPen. 90-day supply., # 90mL, 3 Refills, Maintenance, 04/15/21 19:46:00 EST, Solution, [facility], Humalog [facility]: [id number] (cartridges), 176, cm, 03/30/21 10:45:00 E... Start Date: 04/15/21 Status: Ordered In Pen- Humalog, Blue In Pen- Humalog, Blue, See Instructions, # 1 each, Refills 1, Tot. Refills 1, Maintenance, Use to administer Humalog 3 times daily before meals. E11.65., 04/15/21 19:48:00 EST, Humalog Blue: [id number], Supply, 176, cm, 03/30/21 10:45:00 EST, Height... [...] Compound Start Date: 10/15/18 Status: Ordered Pen [place], 31 G x 5 mm BD Ultra Fine III See Instructions, # 120 each, Refills 6, Tot. Refills 6, Maintenance, injects 4 times a day E11.65,08/24/20 9:11:00 EDT, fax [phone], Compound, 176, cm, 08/17/20 16:06:00 EDT, Height, 94.72, kg, 10/09/19 14:08:00 EDT, Dry Weight Start Date: 08/24/20 Status: Ordered Plavix 75 mg oral tablet 75 mg, 1, tablet, By Mouth, Daily, # 90 tablet, Refills 3, Tot. Refills 3, Maintenance, 01/28/20 14:36:00 EDT, Route to Pharmacy Electronically, [facility]/pharmacy #[id number], 176, cm, 01/06/20 19:56:00 [...] 05/27/19 16:08:00 EST, Route to Pharmacy Electronically, [facility]/pharmacy #[id number], 175, cm, 12/05/18 15:23:00 [...]
--- OUTSIDE RECORDS SUMMARY | 2023-05-15 08:59 | XMS_ITS | Continuity of Care Document ---
Author Name Unknown Organization [facility] Address [address] [place] [address]- Care Team Providers Care Carton Folder Name Role Phone Dung Chen MD Primary Care Physician [phone] [place] [facility] Date(s): 04/12/22 - 05/12/22 [facility] [address] [place], [place] [address] Allergies, Adverse Reactions, Alerts Substance Reaction Severity Status lisinopril Active Immunizations Given and Recorded Vaccine Date Status Refusal Reason SARS-CoV-2 mRNA (lbabjmq-oapm-jubhb) vax 07/18/21 Recorded SARS-CoV-2 (COVID-19) mRNA BNT-162b2 [...] he received this seasons flu vaccine at [place]. 3Admin Note: Patient states he received pneumovax in 2004 at [place]. Medications amLODIPine 5 mg oral tablet 5 mg, 1, tablet, By Mouth, Daily, # 90 tablet, Refills 1, Tot. Refills 1, Maintenance, 05/12/22 11:54:00 EST, Route to Pharmacy Electronically, [facility] ), Partial fill upon patient [...] 05/15/22 10:08:00 EST, 05/03/22 10:08:00 EST, Capsule, [facility]/pharmacy #[id number], Partial fill [...] 0 Refills, Maintenance, 04/12/22 19:33:00 EST, Capsule, [facility]/pharmacy #[id number], Partial fill [...] Weight Start Date: 04/03/22 Status: Ordered Pen [place], 31 G x 8 mm BD Ultra Fine III See Instructions, # 300 each, Refills 6, Tot. Refills 6, Maintenance, use as directed for Type 2 Diabetes Mellitus for 5 injections per day E11.9, 12/09/21 9:52:00 EDT, Supply, 175.3, cm, 12/06/21 7:36:00 EDT, Height, 95.3, kg, 12/06/21 7:36:00 EDT... Start Date: 12/09/21 Stop Date: 08/31/23 Status: Ordered Pen [place], 32 G x 4 mm BD Ultra [...] 05/12/22 11:54:00 EST, Route to Pharmacy Electronically, [facility] ([facility] ), 175, cm, 05/12/22 11:49:00 [...] present Confirmed 06/21/05 Active BPH - [facility] Confirmed 03/14/21 Active Chronic kidney disease stage 3 Confirmed 05/17/11 Active CAD; s/p CABG 1997, [place] 2006 w/stent; heart transplant 04/30 Confirmed Active Diabetes mellitus with PVD; stents; [facility] Confirmed Active Diabetes mellitus with [...] pain Confirmed 06/15/15 Active Microscopic hematuria; [facility] Confirmed Active Neck pain Confirmed [...] Confirmed 06/21/05 Active Tremor - Neurology at [facility] Confirmed 02/07/18 Active Type 2 DM with renal manifestations; [facility] Confirmed 05/04/16 Active 1EF 20-25% prior to transplant Social History Social History Type Response Smoking Status Former smoker, quit more than 30 days ago entered on: 06/01/21 Sex Patient Care team information Care Team Personnel Name: Nenita Song Position: [facility] RN Supv Member Role: Primary Care Nurse Name: Najma Michael RN Position: [facility] RN Member Role: Primary Care Nurse Name: Mallory Masterson NP Position: [facility] PCO Associate Professional Member Role: Primary Care Nurse Name: Scarlet Rosenthal RN Position: [facility] RN Member Role: Primary Care Nurse Name: Dung Chen MD Position: [facility] Primary Care Physician Member Role: PCP Address: Address: [address] [facility] [place] [address]- [place] Name: Ivelisse WARREN, Heydi Ontiveros Position: [facility] Hospital Yield Engineer Member Role: Primary Care Nurse Name: Sandra Cat Position: [facility] Outreach Member Role: Lifetime Consulting Physician Name: Belinda Stevenson RN Position: [facility] RN Member Role: Primary Care Nurse Name: Luis Peters MD Position: [facility] Renal MD Member Role: Lifetime Consulting Physician Address: Address: [address] [facility] [place] [address]- [place] Name: Zulma Martinez MD Position: [facility] Cardiology MD Member Role: Lifetime Consulting Physician Address: Address: [address] [facility] [address] [place] [address]- [place] Name: Hilda Mcdonald RN Position: [facility] RN Member Role: Primary Care Nurse Care Team Related Persons Name: LUCIA BATEMAN Address: home [address] [place] [address]
--- OUTSIDE RECORDS SUMMARY | 2023-05-15 08:59 | XMS_ITS | Continuity of Care Document ---
Author Name Unknown Organization [facility] Address [address] [place] [address]- Care Team Providers Care Hr Payroll Coordinator Name Role Phone Dung Chen MD Primary Care Physician [facility]counter [facility] Date(s): 03/29/23 - 04/28/23 [facility] [address] [place] [address]- [place] Allergies, Adverse Reactions, Alerts Substance Reaction [...] virus vaccine, inactivated 03/07/06 Quinn rded SARS-CoV-2(COVID-19)mRNA-LNP vac([id number]) 02/06/23 Recorded tetanus/diphtheria/pertussis, acel(Tdap) 2 12/08/22 Given tetanus/diphtheria/pertussis, acel(Tdap) 03/27/12 Recorded pneumococcal 20-valent conjugate vaccine 3 12/08/22 Given [id number] 12y+ bivalent booster vax 04/15/22 Recorded SARS-CoV-2 mRNA (kugwual-nofy-kkfiy) vax 07/18/21 Recorded SARS-CoV-2 (COVID-19) mRNA BNT-162b2 [...] 23 2Result Comment: [facility] [id number] 3Result Comment: [facility] [id number] 4Admin Note: Pt states he received this seasons flu vaccine at [place]. 5Admin Note: Patient states he received pneumovax in 2004 at [place]. Medications Albuterol 0.083% inhalation roger Refills 0, Maintenance, 03/20/23 8:54:00 EST Start Date: 03/20/23 Status: Ordered amLODIPine 10 mg oral tablet 10 mg, 1, tablet, By Mouth, Daily, # 90 tablet, Refills 3, Tot. Refills 3, Maintenance, 11/03/22 11:30:00 EDT, Route to Pharmacy Electronically, [facility] ), Partial fill upon patient [...] to Pharmacy Electronically, [facility]/pharmacy #[id number], Partial fill upon patient request if the [...] 3 Refills, Maintenance, 01/19/23 18:26:00 EDT, [facility] [place], Partial fill upon patient request [...] 12/08/22 11:17:00 EDT, Solution, [facility] ([facility]), Partial fillupon patient request if [...] r) present Confirmed 06/21/05 Active BPH - [facility] Confirmed 03/14/21 Active Chronic kidney disease stage 3 Confirmed 05/17/11 Active CAD; s/p CABG 1997, [place] 2006 w/stent; heart transplant 04/30 Confirmed Active Diabetes mellitus with PVD; stents; [facility] Confirmed Active Diabetes mellitus with [...] back pain Confirmed 06/15/15 Active Microscopic hematuria; [facility] Confirmed Active Neck pain Confirmed [...] Active Tremor - Neurology at [facility] Confirmed 02/07/18 Active Type 2 DM with renal manifestations; [facility] Confirmed 05/04/16 Active Vitamin D deficiency Confirmed Active 1EF 20-25% prior to transplant Social History Social History Type Response Smoking Status Former smoker, quit more than 30 days ago entered on: 10/24/22 Sex Patient Care team information Care Team Personnel Name: Nenita Song Position: [facility] RN Supv Member Role: Primary Care Nurse Name: Sherice Mariscal RN Position: [facility] RN Member Role: Primary Care Nurse Name: Najma Michael RN Position: [facility] RN Member Role: Primary Care Nurse Name: Mallory Masterson NP Position: Reference Physician Member Role: Primary Care Nurse Address: Address: [address] [place] [address]- [place] Name: Scarlet Rosenthal RN Position: [facility] SN RN Member Role: Primary Care Nurse Name: Dung Chen MD Position: [facility] Physician - Primary Care Member Role: PCP Address: Address: [address] [place] [address]- [place] Name: Heydi Oviedo RN Position: [facility] Hospital Palm Gatherer Member Role: Primary Care Nurse Name: Mercy Veliz RN Position: [facility] RN Member Role: Primary Care Nurse Name: Sandra Cat Position: S Outreach Member Role: Lifetime Consulting Physician Name: Nicki Garcia RN Position: [facility] RN Member Role: Primary Care Nurse Name: Vane Davalos RN Position: [facility] RN Member Role: Primary Care Nurse Name: Belinda Stevenson RN Position: [facility] SN RN Member Role: Primary Care Nurse Name: Luis Peters MD Position: [facility] Renal MD Member Role: Lifetime Consulting Physician Address: Address: [address] [facility] [address] [facility] [place] [address]- Name: Zulma Martinez MD Position: [facility] Cardiology MD Member Role: Lifetime Consulting Physician Address: Address: [address] [place] [address]- Name: Evelyn Jean-Baptiste RN Position: [facility] RN Member Role: Primary Care Nurse Name: Hilda Mcdonald RN Position: [facility] RN Member Role: Primary Care Nurse Care Team Related Persons Name: LUCIA BATEMAN Address: [address] [address]
--- OUTSIDE RECORDS SUMMARY | 2023-05-15 08:59 | XMS_ITS | Continuity of Care Document ---
Author Name Unknown Organization [facility] Address [address] [place] [address]- Care Team Providers Care Material Yard Clerk Name Role Phone Dung Chen MD Primary Care Physician [phone] Encounter [facility] R [id number] Date(s): 12/04/19 - 12/11/19 [facility] [address] [place] [address] [facility] Attending Physician: Felix Duque MD Admitting Physician: [...] he received this seasons flu vaccine at [place]. 3Admin Note: Patient states he received pneumovax in 2004 at [place]. Medications aspirin 81 mg oral tablet [...] Maintenance, 06/09/19 9:51:00 EST, EC Capsule, [facility]/pharmacy #[id number], 175, cm, 12/05/18 15:23:00 EDT, [...] 16:08:00 EST, Route to Pharmacy Electronically, [facility]/pharmacy #[id number], 175, cm, 12/05/18 15:23:00 EDT, [...] oldest [Reference Range]: 1 Height 175 cm (12/04/19 10:19 AM) Oxygen Saturation [94-100 %] 99 % (12/04/19 10:19 AM) Pulse Rate [55-90 bpm] 95 bpm *H* (12/04/19 10:19 AM) Blood Pressure [90-138/55-84 mm Hg] 130/ 80mm Hg (12/04/19 10:19 AM) Blood pressure sites Arm, left (12/04/19 10:19 AM) Social History Social History Type Response Smoking Status Former smoker; [employer] user in household: No; Other: Quit 1997; entered on: 03/08/17 Sex
--- OUTSIDE RECORDS SUMMARY | 2023-05-15 08:59 | XMS_ITS | Continuity of Care Document ---
Author Name Unknown Organization [facility] Address [address] [place] [address]- Care Team Providers Care Fur Dry Cleaner Hand Name Role Phone Gustavo CALLOWAY, Dung Primary Care Physician Encounter [facility] Date(s): 10/15/20 - 02/12/21 [facility] [address] [place] [address] Attending Physician: Tavon VIDES, Alicia Whitley [...] he received this seasons flu vaccine at [place]. 3Admin Note: Patient states he received pneumovax in 2004 at [place]. Medications aspirin 81 mg oral tablet 1 tablet = 81 mg, By Mouth, Daily, # 30 tablet, 0 Refills, Maintenance, 04/07/17 12:54:17, Tablet Start Date: 04/07/17 Status: Ordered Ativan 1 mg oral tablet See Instructions, 1 tablet By Mouth 30 minutes before MRI. May repeat once at time of test., # 2 tablet, 0 Refills, Maintenance, 08/17/20 17:02:00 EDT, [id number], Partial fill upon patient request if the [...] Maintenance, 06/09/19 9:51:00 EST, EC Capsule, [facility]/pharmacy #[id number], 175, cm, 12/05/18 15:23:00 EDT, Height, [...] 11/02/20 13:16:00 EDT, Route to Pharmacy Electronically, [facility], 176, cm, 08/17/20 16:06:00 EDT, Height, 94.72, kg, 10/09/19 14:08:00 EDT, Dry We... Start Date: 11/02/20 Status: Ordered Lantus Solostar Pen 100 units/mL subcutaneous solution = 70 units, Subcutaneous Injection, Daily, = 70 units, Subcutaneous Injectin, Daily. E11.65. 90 daysupply rotate injection sites, # 90 mL, 3 Refills, Maintenance, 09/25/20 10:26:00 EDT, Solution, [facility], , 176, cm... Start Date: [...] Compound Start Date: 10/15/18 Status: Ordered Pen [place], 31 G x 5 mm BD Ultra Fine III See Instructions, # 120 each, Refills 6, Tot. Refills 6, Maintenance, injects 4 times a day E11.65,08/24/20 9:11:00 EDT, fax [phone], Compound, 176, cm, 08/17/20 16:06:00 EDT, Height, 94.72, kg, 10/09/19 14:08:00 EDT, Dry Weight Start Date: 08/24/20 Status: Ordered Plavix 75 mg oral tablet 75 mg, 1, tablet, By Mouth, Daily, # 90 tablet, Refills 3, Tot. Refills 3, Maintenance, 01/28/20 14:36:00 EDT, Route to Pharmacy Electronically, [facility]/pharmacy #[id number], 176, cm, 01/06/20 19:56:00 EDT, Height, [...] 16:08:00 EST, Route to Pharmacy Electronically, [facility]/pharmacy #[id number], 175, cm, 12/05/18 15:23:00 EDT, Height, [...]
--- OUTSIDE RECORDS SUMMARY | 2023-05-15 08:59 | XMS_ITS | Continuity of Care Document ---
Author Name Unknown Organization [facility] Address [address] [place] [address]- Care Team Providers Care Dehorner Name Role Phone Dung Chen MD Primary Care Physician [phone] Encounter [facility] Date(s): 01/05/23 - 02/04/23 [facility] [address] [place], [place] [address] Allergies, Adverse Reactions, Alerts Substance Reaction Severity Status lisinopril Active Immunizations Given and Recorded Vaccine Date Status Refusal Reason tetanus/diphtheria/pertussis, acel(Tdap) 1 12/08/22 Given tetanus/diphtheria/pertussis, acel(Tdap) 03/27/12 Recorded pneumococcal 20-valent conjugate vaccine 2 12/08/22 Given [id number] 12y+ bivalent booster vax 04/15/22 Recorded influenza [...] vaccine, inactivated 03/07/06 Quinn rded SARS-CoV-2 mRNA ([id number]) vax 07/18/21 Recorded SARS-CoV-2 (COVID-19) mRNA BNT-162b2 [...] Vacc (oldterm) 5 07/14/04 Given 1Result Comment: [facility] [id number] 2Result Comment: [facility] [id number] 3Result Comment: Lot # [id number] Exp. #) SEP 23 4Admin Note: Pt states he received this seasons flu vaccine at [place]. 5Admin Note: Patient states he received pneumovax in 2004 at [place]. Medications amLODIPine 10 mg oral tablet 10 mg, 1, tablet, By Mouth, Daily, # 90 tablet, Refills 3, Tot. Refills 3, Maintenance, 11/03/22 11:30:00 EDT, Route to Pharmacy Electronically, [facility] ([facility] ), Partial fill upon patient request if the prescription is for... Start Date: 11/03/22 Status: Ordered aspirin 81 mg oral delayed release tablet 81 mg, 1, tablet, By Mouth, Daily, # 30 tablet, Refills 0, Tot. Refills 0, Maintenance, 06/08/21 11:45:00 EST, Route to Pharmacy Electronically, [facility]/pharmacy #[id number], Partial fill upon patient request if the [...] 3 Refills, Maintenance, 01/19/23 18:26:00 EDT, [place] [place],[facility], Partial fill upon patient request if the prescription is for a schedule II opioid drug., 1 sprays Nares, Both Daily, 173, cm, 100... Start Date: 01/19/23 Status: Ordered Freestyle [place]an 2 Stanley Freestyle Nona 2 [place], See Instructions, # 1 each, Refills 0, [...] Maintenance, 08/23/22 12:58:00 EDT, [facility] ([facility]), 176, cm... Start Date: 08/23/22 Status: Ordered insulin degludec (concentrated) 200 units/mL subcutaneous solution See Instructions, 30 units in the AM and 30 units in the PM 30 days supply, # 75 mL, 3 Refills, Maintenance, 10/15/22 10:03:00 EDT, [facility], Partial fill upon patient [...] Weight Start Date: 08/17/22 Status: Ordered Pen [place], 31 G x 8 mm BD Ultra Fine III See Instructions, # 300 each, Refills 6, Tot. Refills 6, Maintenance, use as directed for Type 2 Diabetes Mellitus for 5 injections per day E11.9, 12/09/21 9:52:00 EDT, Supply, 175.3, cm, 12/06/21 7:36:00 EDT, Height, 95.3, kg, 12/06/21 7:36:00 EDT... Start Date: 12/09/21 Stop Date: 08/31/23 Status: Ordered Pen [place], 32 G x 4 mm BD Ultra [...] Route to Pharmacy Electronically, [facility] ([facility]), 173, cm, 10/12/22 19:31:00 EDT, [...] capsule, 0 Refills, Maintenance, 06/08/22 12:19:00EST, Capsule, [facility]/pharmacy #[id number], Partial fill upon patient request if the prescription is for a schedule II opioid drug., 176, cm, 06/08/22 12:04:00 E... Start Date: 06/08/22 Stop Date: 08/03/22 Status: Ordered Problem List Condition Confirmation Course Effective Dates Status Health Status Informant Unsteady gait Confirmed Active Amputated toe of left foot Confirmed Active AICD (automatic cardioverter/defibrillato r) present Confirmed 06/21/05 Active BPH - [facility] Confirmed 03/14/21 Active Chronic kidney disease stage 3 Confirmed 05/17/11 Active CAD; s/p CABG 1997, [place] 2006 w/stent; heart transplant 04/30 Confirmed Active DVT, lower extremity Confirmed Active Diabetes mellitus with PVD; stents; [facility] [place] [facility] Confirmed Active Diabetes mellitus with [...] 01/24/14 Active History of SCC in situ; [facility] Confirmed 11/06/20 Active History of venous thrombosis - R IJ complete, partial on L; AC x3mo Confirmed 05/13/13 Active Hyperparathyroidism Confirmed 06/07/21 Active Hypertension Confirmed Active Immunosuppressed status Confirmed Active Insomnia Confirmed 07/17/19 Active Ischemic cardiomyopathy Confirmed Active Left foot drop Confirmed 08/25/14 Active Leukopenia Confirmed 07/10/21 Active Low back pain Confirmed 06/15/15 Active Microscopic hematuria; [facility] Confirmed Active Neck pain Confirmed [...] comorbidity Confirmed Active [facility] - [facility] [...] Care Nurse Name: Najma Michael RN Position: [facility] RN Member Role: Primary Care Nurse Name: Mallory Masterson NP Position: Reference Physician Member Role: Primary Care Nurse Address: Address: [address] [place] [address]- [place] Name: Scarlet Rosenthal RN Position: [facility] SN RN Member Role: Primary Care Nurse Name: Dung Chen MD Position: [facility] Physician - Primary Care Member Role: PCP Address: Address: [address] [address]- [place] Name: Heydi Oviedo RN Position: [facility] Tubing Mill Setter Member Role: Primary Care Nurse Name: Sandra Cat Position: [facility] Outreach Member Role: Lifetime Consulting Physician Name: Nicki Garcia RN Position: [facility] RN Member Role: Primary Care Nurse Name: Vane Davalos RN Position: [facility] RN Member Role: Primary Care Nurse Name: Belinda Stevenson RN Position: [facility] SN RN Member Role: Primary Care Nurse Name: Luis Peters MD Position: [facility] Renal MD Member Role: Lifetime Consulting Physician Address: Address: [address] [facility] [place] [address]- [place] Name: Zulma Martinez MD Position: [facility] Cardiology MD Member Role: Lifetime Consulting Physician Address: Address: [address] [address]- [place] Name: Evelyn Jean-Baptiste RN Position: [facility] RN Member Role: Primary Care Nurse Name: Hilda Mcdonald RN Position: [facility] RN Member Role: Primary Care Nurse Care Team Related Persons Name: LUCIA BATEMAN Address: home [address] [place] [address]
--- OUTSIDE RECORDS SUMMARY | 2023-05-15 08:59 | XMS_ITS | Continuity of Care Document ---
Author Name Unknown Organization [facility] Address [address] [place] [address]- Care Team Providers Care Chemist Instrumentation Name Role Phone Dung Chen MD Primary Care Physician Encounter [facility] Date(s): 03/17/21 - 04/28/21 [facility] [address] [place] [id number] Attending Physician: Sada Oviedo MD Admitting [...] he received this seasons flu vaccine at [place]. 3Admin Note: Patient states he received pneumovax in 2004 at [place]. Medications aspirin 81 mg oral tablet 1 tablet = 81 mg, By Mouth, Daily, # 30 tablet, 0 Refills, Maintenance, 04/07/17 12:54:17, Tablet Start Date: 04/07/17 Status: Ordered Ativan 1 mg oral tablet See Instructions, 1 tablet By Mouth 30 minutes before MRI. May repeat once at time of test., # 2 tablet, 0 Refills, Maintenance, 08/17/20 17:02:00 EDT, [facility]/pharmacy #[id number], Partial fill upon patient request if the [...] Refills, Maintenance, 06/09/19 9:51:00 EST, EC Capsule, [facility]/pharmacy #[id number], 175, cm, 12/05/18 [...] 3, 04/13/21 9:50:00 EST,Route to Pharmacy Electronically, [facility]/pharmacy #[id number], 176, cm, 03/30/21 10:45:00 EST, Height, 94.72, kg, 10/09/19 14:08:00 EDT, Dry Weight Start Date: 04/13/21 Status: Ordered HumaLOG Cartridge 100 units/mL injectable solution See Instructions, Use 3 times daily before meals. E11.65.; for use with InPen. 90-day supply., # 90mL, 3 Refills, Maintenance, 04/15/21 19:46:00 EST, Solution, [facility], Humalog [facility]: [id number] (cartridges), 176, cm, 03/30/21 10:45:00 E... Start Date: 04/15/21 Status: Ordered In Pen- Humalog, Blue In Pen- Humalog, Blue, See Instructions, # 1 each, Refills 1, Tot. Refills 1, Maintenance, Use to administer Humalog 3 times daily before meals. E11.65., 04/15/21 19:48:00 EST, Humalog Blue: [id number], Supply, 176, cm, 03/30/21 10:45:00 EST, Height... [...] Compound Start Date: 10/15/18 Status: Ordered Pen [place], 31 G x 5 mm BD Ultra Fine III See Instructions, # 120 each, Refills 6, Tot. Refills 6, Maintenance, injects 4 times a day E11.65,08/24/20 9:11:00 EDT, fax [phone], Compound, 176, cm, 08/17/20 16:06:00 EDT, Height, 94.72, kg, 10/09/19 14:08:00 EDT, Dry Weight Start Date: 08/24/20 Status: Ordered Plavix 75 mg oral tablet 75 mg, 1, tablet, By Mouth, Daily, # 90 tablet, Refills 3, Tot. Refills 3, Maintenance, 01/28/20 14:36:00 EDT, Route to Pharmacy Electronically, [facility]/pharmacy #[id number], 176, cm, 01/06/20 [...] 05/27/19 16:08:00 EST, Route to Pharmacy Electronically, [facility]/pharmacy #[id number], 175, cm, 12/05/18 [...]
--- OUTSIDE RECORDS SUMMARY | 2023-05-15 08:59 | XMS_ITS | Continuity of Care Document ---
Author Name Unknown Organization [facility] Address [address] [place] [address]- Care Team Providers Care Vegetable Farm Manager Name Role Phone Dung Chen MD Primary Care Physician [phone] [facility] Date(s): 10/17/22 - 11/16/22 [facility] [address] [place], [place] [address] Allergies, Adverse Reactions, Alerts Substance Reaction Severity Status lisinopril Active Immunizations Given and Recorded Vaccine Date Status Refusal Reason SARS-CoV-2 mRNA (xhkphbj-nlpo-[id number]) vax 07/18/21 Recorded SARS-CoV-2 (COVID-19) mRNA BNT-162b2 [...] he received this seasons flu vaccine at [place]. 3Admin Note: Patient states he received pneumovax in 2004 at [place]. Medications amLODIPine 10 mg oral tablet 10 mg, 1, tablet, By Mouth, Daily, # 90 tablet, Refills 3, Tot. Refills 3, Maintenance, 11/03/22 11:30:00 EDT, Route to Pharmacy Electronically, [facility] ([facility] ), Partial fill upon patient request if the prescription is for... Start Date: 11/03/22 Status: Ordered apixaban Starter Pack 5 mg oral tablet = 10 mg, By Mouth, 2 times a day, first dose on 10/15 at 2100, # 1 pack/packet, 0 Refills, Maintenance, 10/15/22 10:04:00 EDT, Tablet, [facility], Partial fill upon patient request if theprescription is for a schedule II opioid drug., 173... Start Date: 10/15/22 Status: Ordered aspirin 81 mg oral delayed release tablet 81 mg, 1, tablet, By Mouth, Daily, # 30 tablet, Refills 0, Tot. Refills 0, Maintenance, 06/08/21 11:45:00 EST, Route to Pharmacy Electronically, [facility]/pharmacy #[id number], Partial fill upon patient request if the [...] Date: 09/25/21 Status: Ordered Freestyle Nona 2 [place] Freestyle Nona 2 [place], See Instructions, # 1 each, Refills 0, [...] Maintenance, 08/23/22 12:58:00 EDT, [facility] ([facility]), 176, cm... Start Date: 08/23/22 Status: Ordered insulin degludec (concentrated) 200 units/mL subcutaneous solution See Instructions, 20 units in the AM and 30 units in the PM 30 days supply, # 75 mL, 3 Refills, Maintenance, 10/15/22 10:03:00 EDT, [facility], Partial fill upon patient [...] Weight Start Date: 08/17/22 Status: Ordered Pen [place], 31 G x 8 mm BD Ultra Fine III See Instructions, # 300 each, Refills 6, Tot. Refills 6, Maintenance, use as directed for Type 2 Diabetes Mellitus for 5 injections per day E11.9, 12/09/21 9:52:00 EDT, Supply, 175.3, cm, 12/06/21 7:36:00 EDT, Height, 95.3, kg, 12/06/21 7:36:00 EDT... Start Date: 12/09/21 Stop Date: 08/31/23 Status: Ordered Pen [place], 32 G x 4 mm BD Ultra [...] Route to Pharmacy Electronically, [facility] ([facility]), 173, cm, 10/12/22 19:31:00 EDT, Height, 106.... Start Date: 10/12/22 Status: Ordered Vitamin D3 50,000 intl units oral capsule 1 capsule = 1,250 mcg, By Mouth, Every week, # 8 capsule, 0 Refills, Maintenance, 06/08/22 12:19:00EST, Capsule, [facility]/pharmacy #[id number], Partial fill upon patient request if the prescription is for a schedule II opioid drug., 176, cm, 06/08/22 12:04:00 E... Start Date: 06/08/22 Stop Date: 08/03/22 Status: Ordered Problem List Condition Confirmation Course Effective Dates Status Health Status Informant Unsteady gait Confirmed Active AICD (automatic cardioverter/defibrillato r) present Confirmed 06/21/05 Active BPH - [facility] Confirmed 03/14/21 Active BMI 33.0-33.9,adult Confirmed Active Chronic kidney disease stage 3 Confirmed 05/17/11 Active CAD; s/p CABG 1997, [place] 2006 w/stent; heart transplant 04/30 Confirmed Active DVT, lower extremity Confirmed Active Diabetes mellitus with PVD; stents; [facility] [place] [facility] Confirmed Active Diabetes mellitus with [...] pain Confirmed 06/15/15 Active Microscopic hematuria; [facility] Confirmed Active Neck pain Confirmed [...] Confirmed 06/21/05 Active Tremor - Neurology at [facility] Confirmed 02/07/18 Active Type 2 DM with renal manifestations; [facility] Confirmed 05/04/16 Active 1EF 20-25% prior to transplant Social History Social History Type Response Smoking Status Former smoker, quit more than 30 days ago entered on: 10/24/22 Sex Patient Care team information Care Team Personnel Name: Nenita Song Position: [facility] RN Supv Member Role: Primary Care Nurse Name: Sherice Mariscal RN Position: [facility] RN Member Role: Primary Care Nurse Name: Najma Michael RN Position: [facility] RN Member Role: Primary Care Nurse Name: Aleja HOT DIPPERMallory Position: Reference Physician Member Role: Primary Care Nurse Address: Address: [address] [place] [address]- Name: Scarlet Rosenthal RN Position: [facility] SN RN Member Role: Primary Care Nurse Name: Khurram Hansen RN Position: [facility] RN Member Role: Primary Care Nurse Name: Dung Chen MD Position: [facility] Physician - Primary Care Member Role: PCP Address: Address: [address] [place] [address]- [place] Name: Heydi Oviedo RN Position: [facility] Hospital Regional Liaison Member Role: Primary Care Nurse Name: Sandra Cat Position: [facility] Outreach Member Role: Lifetime Consulting Physician Name: Nicki Garcia RN Position: [facility] RN Member Role: Primary Care Nurse Name: Vnae Davalos RN Position: [facility] RN Member Role: Primary Care Nurse Name: Luis Peters MD Position: [facility] Renal MD Member Role: Lifetime Consulting Physician Address: Address: [address] [facility] [place] [address]- [place] Name: Zulma Martinez MD Position: [facility] Cardiology MD Member Role: Lifetime Consulting Physician Address: Address: [address] [facility] [address] [place] [address]- Name: Evelyn Jean-Baptiste RN Position: S RN Member Role: Primary Care Nurse Name: Hilda Mcdonald RN Position: S RN Member Role: Primary Care Nurse Care Team Related Persons Name: LUPIS BATEMANA Address: home [address] [place] [address]
--- OUTSIDE RECORDS SUMMARY | 2023-05-15 09:00 | XMS_ITS | Continuity of Care Document ---
Author Name Unknown Organization [facility] [place] Address [address] [place] [address]- Care Team Providers Care Cook Specialty Name Role Phone Dung Chen MD Primary Care Physician [phone] Encounter [facility] Date(s): 08/24/20 - 09/23/20 [facility] [place] [address] [place], [place] [address] Allergies, Adverse Reactions, Alerts Substance [...] received this seasons flu vaccine at [place]. 3Admin Note: Patient states he received pneumovax in 2004 at [place]. Medications aspirin 81 mg oral tablet 1 tablet = 81 mg, By Mouth, Daily, # 30 tablet, 0 Refills, Maintenance, 04/07/17 12:54:17, Tablet Start Date: 04/07/17 Status: Ordered Ativan 1 mg oral tablet See Instructions, 1 tablet By Mouth 30 minutes before MRI. May repeat once at time of test., # 2 tablet, 0 Refills, Maintenance, 08/17/20 17:02:00 EDT, [facility]/pharmacy #[id number], Partial fill upon patient request if the [...] Refills, Maintenance, 06/09/19 9:51:00 EST, EC Capsule, [facility]/pharmacy #[id number], 175, cm, 12/05/18 15:23:00 [...] 05/19/20 10:59:00 EST, Route to Pharmacy Electronically, [facility]/pharmacy #[id number], Partial fill upon patient [...] Compound Start Date: 10/15/18 Status: Ordered Pen [place], 31 G x 5 mm BD Ultra Fine III See Instructions, # 120 each, Refills 6, Tot. Refills 6, Maintenance, injects 4 times a day E11.65,08/24/20 9:11:00 EDT, fax [phone], Compound, 176, cm, 08/17/20 16:06:00 EDT, Height, 94.72, kg, 10/09/19 14:08:00 EDT, Dry Weight Start Date: 08/24/20 Status: Ordered Plavix 75 mg oral tablet 75 mg, 1, tablet, By Mouth, Daily, # 90 tablet, Refills 3, Tot. Refills 3, Maintenance, 01/28/20 14:36:00 EDT, Route to Pharmacy Electronically, [facility]/pharmacy #[id number], 176, cm, 01/06/20 19:56:00 [...] 05/27/19 16:08:00 EST, Route to Pharmacy Electronically, [facility]/pharmacy #[id number], 175, cm, 12/05/18 15:23:00 [...]
--- OUTSIDE RECORDS SUMMARY | 2023-05-15 09:00 | XMS_ITS | Continuity of Care Document ---
Author Name Unknown Organization [facility] Address [address] [place] [address]- Care Team Providers Care Maintenance Groundman Name Role Phone Dung Chen MD Primary Care Physician [facility]counter [facility] Date(s): 04/29/22 - 06/02/22 [facility] [address] [place], [place] [address] Attending Physician: Gaurang Perez MD Allergies, Adverse Reactions, Alerts Substance Reaction Severity Status lisinopril Active Immunizations Given and Recorded Vaccine Date Status Refusal Reason SARS-CoV-2 mRNA (iypfueq-adya-kunat) vax 07/18/21 Recorded SARS-CoV-2 (COVID-19) mRNA BNT-162b2 [...] he received this seasons flu vaccine at [place]. 3Admin Note: Patient states he received pneumovax in 2004 at [place]. Medications amLODIPine 5 mg oral tablet 5 mg, 1, tablet, By Mouth, Daily, # 90 tablet, Refills 1, Tot. Refills 1, Maintenance, 05/12/22 11:54:00 EST, Route to Pharmacy Electronically, [facility] ([facility] ), Partial fill upon patient request if the prescription is for a... Start Date: 05/12/22 Status: Ordered aspirin 81 mg oral delayed release tablet 81 mg, 1, tablet, By Mouth, Daily, # 30 tablet, Refills 0, Tot. Refills 0, Maintenance, 06/08/21 11:45:00 EST, Route to Pharmacy Electronically, [facility]/pharmacy #[id number], Partial fill upon patient [...] 0 Refills, Maintenance, 04/12/22 19:33:00 EST, Capsule, [facility]/pharmacy #[id number], Partial fill upon patient [...] 02/03/22 9:07:00 EDT, Route to Pharmacy Electronically, [facility]), 175.3, cm, 01/03/22 13:47:00 EDT, Height, 95.3, kg, 12/06/21 7:36:00 ED... Start Date: 02/03/22 Status: Ordered HumaLOG Cartridge 100 units/mL injectable solution See Instructions, Insert cartridge into Inpen device, inject 16 units subq 3x a day with meals, Maxdaily dose 48 units, E11.65, # 30 mL, 6 Refills, Maintenance, 04/19/22 10:25:00 EDT, [facility], 175, cm, [...] Weight Start Date: 04/03/22 Status: Ordered Pen [place], 31 G x 8 mm BD Ultra Fine III See Instructions, # 300 each, Refills 6, Tot. Refills 6, Maintenance, use as directed for Type 2 Diabetes Mellitus for 5 injections per day E11.9, 12/09/21 9:52:00 EDT, Supply, 175.3, cm, 12/06/21 7:36:00 EDT, Height, 95.3, kg, 12/06/21 7:36:00 EDT... Start Date: 12/09/21 Stop Date: 08/31/23 Status: Ordered Pen [place], 32 G x 4 mm BD Ultra [...] 05/12/22 11:54:00 EST, Route to Pharmacy Electronically, [facility] ([facility] ), 175, cm, 05/12/22 11:49:00 EST, H... Start Date: 05/12/22 Status: Ordered Problem List Condition Confirmation Course Effective Dates Status Health Status Informant AICD (automatic cardioverter/defibrillato r) present Confirmed 06/21/05 Active BPH - [facility] Confirmed 03/14/21 Active Chronic kidney disease stage 3 Confirmed 05/17/11 Active CAD; s/p CABG 1997, [place] 2006 w/stent; heart transplant 04/30 Confirmed Active Diabetes mellitus with PVD; stents; [facility] Confirmed Active Diabetes mellitus with cataract [...] back pain Confirmed 06/15/15 Active Microscopic hematuria; [facility] Confirmed Active Neck pain Confirmed [...] Confirmed 06/21/05 Active Tremor - Neurology at [facility] Confirmed 02/07/18 Active Type 2 DM with renal manifestations; [facility] Confirmed 05/04/16 Active 1EF 20-25% prior to transplant Social History Social History Type Response Smoking Status Former smoker, quit more than 30 days ago entered on: 06/01/21 Sex Patient Care team information Care Team Personnel Name: Nenita Song Position: [facility] RN Supv Member Role: Primary Care Nurse Name: Najma Michael RN Position: [facility] RN Member Role: Primary Care Nurse Name: Mallory Masterson NP Position: Reference Physician Member Role: Primary Care Nurse Address: Address: [address] [place] [address]- [place] Name: Scarlet Rosenthal RN Position: [facility] RN Member Role: Primary Care Nurse Name: Dung Chen MD Position: [facility] Primary Care Physician Member Role: PCP Address: Address: [address] [place] [address]- Name: Heydi Oviedo RN Position: [facility] Hospital Dealer Relationship Manager Member Role: Primary Care Nurse Name: Sandra Cat Position: [facility] Outreach Member Role: Lifetime Consulting Physician Name: Belinda Stevenson RN Position: S RN Member Role: Primary Care Nurse Name: Luis Peters MD Position: [facility] Renal MD Member Role: Lifetime Consulting Physician Address: Address: [address] [facility] [address] [facility] [place] [address]- Name: Zulma Martinez MD Position: [facility] Cardiology MD Member Role: Lifetime Consulting Physician Address: Address: [address] [place] [address]- Name: Hilda Mcdonald RN Position: S RN Member Role: Primary Care Nurse Care Team Related Persons Name: LUCIA BATEMAN Address: home [address] [place] [address]
--- OUTSIDE RECORDS SUMMARY | 2023-05-15 09:00 | XMS_ITS | Continuity of Care Document ---
Author Name Unknown Organization [facility] Address [address] [place] [address]- Care Team Providers Care Welder Fabricator Name Role Phone Dung Chen MD Primary Care Physician [phone] Encounter [facility] Date(s): 01/03/22 - 02/02/22 [facility] [address] [place] [id number] Attending Physician: Admtr, Ar8 Admitting Physician: Admtr, Ar8 Referring Physician: Admtr, Ar8 Allergies, Adverse Reactions, Alerts Substance Reaction Severity Status lisinopril Active Immunizations Given and Recorded Vaccine Date Status Refusal Reason SARS-CoV-2 mRNA (dtfkjld-tnet-ptnyw) vax 07/18/21 Recorded SARS-CoV-2 (COVID-19) mRNA BNT-162b2 [...] he received this seasons flu vaccine at [place]. 3Admin Note: Patient states he received pneumovax in 2004 at [place]. Medications aspirin 81 mg oral delayed release tablet 81 mg, 1, tablet, By Mouth, Daily, # 30 tablet, Refills 0, Tot. Refills 0, Maintenance, 06/08/21 11:45:00 EST, Route to Pharmacy Electronically, [facility]/pharmacy #[id number], Partial fill upon patient request if the [...] capsule, Refills 0, Route to Pharmacy Electronically, [facility], 175.3, cm, 09/27/21 10:36:00 EDT, Height, 86.2, kg, 08/26/21 12:59:00 EDT, Dry Weight Start Date: 11/10/21 Status: Ordered HumaLOG Cartridge 100 units/mL injectable solution See Instructions, Insert cartridge into Inpen device, inject 16 units subq 3x a day with meals, Maxdaily dose 48 units, E11.65, # 30 mL, 6 Refills, Maintenance, 08/03/21 10:25:00 EDT, [facility], 175, cm, 07/26/21 8:27:00 EDT, [...] 11/11/21 Stop Date: 08/08/22 Status: Ordered Pen [place], 31 G x 8 mm BD Ultra Fine III See Instructions, # 300 each, Refills 6, Tot. Refills 6, Maintenance, use as directed for Type 2 Diabetes Mellitus for 5 injections per day E11.9, 12/09/21 9:52:00 EDT, Supply, 175.3, cm, 12/06/21 7:36:00 EDT, Height, 95.3, kg, 12/06/21 7:36:00 EDT... Start Date: 12/09/21 Stop Date: 08/31/23 Status: Ordered Pen [place], 32 G x 4 mm BD Ultra [...] 09/27/21 11:24:00 EDT, Route to Pharmacy Electronically, [facility]/pharmacy #[id number], 175.3,cm, 09/27/21 10:36:00 EDT, Height, 86.2, [...] r) present Confirmed 06/21/05 Active BPH - [facility] Confirmed 03/14/21 Active Chronic [...] Active Low back pain Confirmed 06/15/15 Active Neck pain Confirmed 08/29/19 Active Neuropathy [...] on: 06/01/21 Sex Patient Care team information Personnel Name: Dung Chen MD Address: Address: [address] [place] [address]
--- OUTSIDE RECORDS SUMMARY | 2023-05-15 09:00 | XMS_ITS | Continuity of Care Document ---
Author Name Unknown Organization [facility] ter Address [address] [place] [address]- Care Team Providers Care Financial Analysis Manager Name Role Phone Dung Chen MD Primary Care Physician Encounter [facility] Date(s): 06/28/22 - 07/28/[address] [address]- Attending Physician: Admtr, Ar8 Admitting Physician: Admtr, Ar8 Referring Physician: Admtr, Ar8 Allergies, Adverse Reactions, Alerts Substance Reaction Severity Status lisinopril Active Immunizations Given and Recorded Vaccine Date Status Refusal Reason SARS-CoV-2 mRNA (jgvmvim-kmei-sgkjy) vax 07/18/21 Recorded SARS-CoV-2 (COVID-19) mRNA BNT-162b2 [...] he received this seasons flu vaccine at [place]. 3Admin Note: Patient states he received pneumovax in 2004 at [place]. Medications amLODIPine 5 mg oral tablet 5 mg, 1, tablet, By Mouth, Daily, # 90 tablet, Refills 1, Tot. Refills 1, Maintenance, 05/12/22 11:54:00 EST, Route to Pharmacy Electronically, [facility] ([facility] ), Partial fill upon patient request if the prescription is for a... Start Date: 05/12/22 Status: Ordered aspirin 81 mg oral delayed release tablet 81 mg, 1, tablet, By Mouth, Daily, # 30 tablet, Refills 0, Tot. Refills 0, Maintenance, 06/08/21 11:45:00 EST, Route to Pharmacy Electronically, [facility]/pharmacy #[id number], Partial fill upon [...] 02/03/22 9:07:00 EDT, Route to Pharmacy Electronically, [facility] ([facility]), 175.3, cm, 01/03/22 13:47:00 EDT, [...] Maintenance, 05/24/22 12:19:00 EST, [facility] ([facility] ), Partial fill upon patient [...] Start Date: 04/03/22 Status: Ordered Pen [place], 31 G x 8 mm BD Ultra Fine III See Instructions, # 300 each, Refills 6, Tot. Refills 6, Maintenance, use as directed for Type 2 Diabetes Mellitus for 5 injections per day E11.9, 12/09/21 9:52:00 EDT, Supply, 175.3, cm, 12/06/21 7:36:00 EDT, Height, 95.3, kg, 12/06/21 7:36:00 EDT... Start Date: 12/09/21 Stop Date: 08/31/23 Status: Ordered Pen [place], 32 G x 4 mm BD Ultra [...] 05/12/22 11:54:00 EST, Route to Pharmacy Electronically, [facility] ([facility] ), 175, cm, 05/12/22 11:49:00 EST, H... Start Date: 05/12/22 Status: Ordered Vitamin D3 50,000 intl units oral capsule 1 capsule = 1,250 mcg, By Mouth, Every week, # 8 capsule, 0 Refills, Maintenance, 06/08/22 12:19:00EST, Capsule, [facility]/pharmacy #[id number], Partial fill upon patient request if the prescription is for a schedule II opioid drug., 176, cm, 06/08/22 12:04:00 E... Start Date: 06/08/22 Stop Date: 08/03/22 Status: Ordered Problem List Condition Confirmation Course Effective Dates Status Health Status Informant Unsteady gait Confirmed Active AICD (automatic cardioverter/defibrillato r) present Confirmed 06/21/05 Active BPH - [facility] Confirmed 03/14/21 Active Chronic kidney disease stage 3 Confirmed 05/17/11 Active CAD; s/p CABG 1997, [place] 2006 w/stent; heart transplant 04/30 Confirmed Active Diabetes mellitus with PVD; stents; [facility] Confirmed Active Diabetes mellitus with cataract [...] Confirmed 06/21/05 Active Tremor - Neurology at [facility] Confirmed 02/07/18 Active Type 2 DM with renal manifestations; [facility] Confirmed 05/04/16 Active 1EF 20-25% prior to transplant Social History Social History Type Response Smoking Status Former smoker, quit more than 30 days ago entered on: 06/01/21 Sex Patient Care team information Care Team Personnel Name: Nenita Song Position: [facility] Supv Member Role: Primary Care Nurse Name: Najma Mcihael RN Position: [facility] RN Member Role: Primary Care Nurse Name: Mallory Masterson NP Position: Reference Physician Member Role: Primary Care Nurse Address: Address: [address] [place] [id number] Name: Scarlet Rosenthal RN Position: [facility] SN RN Member Role: Primary Care Nurse Name: Dung Chen MD Position: [facility] Primary Care Physician Member Role: PCP Address: Address: [address], [place] [address]- Name: Heydi Oviedo RN Position: [facility] Hospital Stick Puller Member Role: Primary Care Nurse Name: Sandra Cat Position: [facility] Outreach Member Role: Lifetime Consulting Physician Name: Luis Peters MD Position: [facility] Renal MD Member Role: Lifetime Consulting Physician Address: Address: [address] [facility] [place] [address]- [place] Name: Zulma Martinez MD Position: [facility] Cardiology MD Member Role: Lifetime Consulting Physician Address: Address: [address] [facility] [address] [place] [address]- Name: Evelyn Jean-Baptiste RN Position: [facility] RN Member Role: Primary Care Nurse Name: Hilda Mcdonald RN Position: [facility] RN Member Role: Primary Care Nurse Care Team Related Persons Name: LUCIA BATEMAN Address: home [address] [place] [address]
--- OUTSIDE RECORDS SUMMARY | 2023-05-15 09:00 | XMS_ITS | Continuity of Care Document ---
Author Name Unknown Organization [facility] Address [address] [facility], [address] Floor, [address] [place] [address]- Care Team Providers Care Compressor Operator Portable Name Role Phone Dung Chen MD Primary Care Physician Encounter [facility] Date(s): 08/05/20 - 09/04/20 [facility] [address], [address], [address] [place] [id number] Allergies, Adverse Reactions, Alerts Substance [...] he received this seasons flu vaccine at [place]. 3Admin Note: Patient states he received pneumovax in 2004 at [place]. Medications aspirin 81 mg oral tablet 1 tablet = 81 mg, By Mouth, Daily, # 30 tablet, 0 Refills, Maintenance, 04/07/17 12:54:17, Tablet Start Date: 04/07/17 Status: Ordered Ativan 1 mg oral tablet See Instructions, 1 tablet By Mouth 30 minutes before MRI. May repeat once at time of test., # 2 tablet, 0 Refills, Maintenance, 08/17/20 17:02:00 EDT, [facility]/pharmacy #[id number], Partial fill upon patient request if the [...] Maintenance, 06/09/19 9:51:00 EST, EC Capsule, [facility]/pharmacy #[id number], 175, [...] 05/19/20 10:59:00 EST, [facility] Compound Start Date: 10/15/18 Status: Ordered Pen [place], 31 G x 5 mm BD Ultra Fine III See Instructions, # 120 each, Refills 6, Tot. Refills 6, Maintenance, injects 4 times a day E11.65,08/24/20 9:11:00 EDT, fax [phone], Compound, 176, cm, 08/17/20 16:06:00 EDT, Height, 94.72, kg, 10/09/19 14:08:00 EDT, Dry Weight Start Date: 08/24/20 Status: Ordered Plavix 75 mg oral tablet 75 mg, 1, tablet, By Mouth, Daily, # 90 tablet, Refills 3, Tot. Refills 3, Maintenance, 01/28/20 14:36:00 EDT, Route to Pharmacy Electronically, [facility]/pharmacy #[id number], 176, cm, 01/06/20 19:56:00 EDT, Height, [...]
--- OUTSIDE RECORDS SUMMARY | 2023-05-15 09:00 | XMS_ITS | Continuity of Care Document ---
Author Name Unknown Organization [facility] Address [address] [place] [address]- Care Team Providers Care Examiner Rating Clerk Name Role Phone Dung Chen MD Primary Care Physician [phone] Encounter [facility] Date(s): 03/02/23 - 04/01/23 [facility] [address] [place], [place] [address] Attending Physician: Scott Mcintosh Admitting Physician: [...] virus vaccine, inactivated 03/07/06 Quinn rded SARS-CoV-2(COVID-19)mRNA-LNP vac([id number]) 02/06/23 Recorded tetanus/diphtheria/pertussis, acel(Tdap) 2 12/08/22 Given tetanus/diphtheria/pertussis, acel(Tdap) 03/27/12 Recorded pneumococcal 20-valent conjugate vaccine 3 12/08/22 Given [id number] 12y+ bivalent booster vax 04/15/22 Recorded SARS-CoV-2 mRNA (kwuksdl-wxtc-ldhny) vax 07/18/21 Recorded SARS-CoV-2 (COVID-19) mRNA BNT-162b2 [...] 2795CA Exp. #) SEP 23 2Result Comment: [facility] [id number] 3Result Comment: [facility] [id number] 4Admin Note: Pt states he received this seasons flu vaccine at [place]. 5Admin Note: Patient states he received pneumovax in 2004 at [place]. Medications Albuterol 0.083% inhalation roger Refills 0, Maintenance, 03/20/23 8:54:00 EST Start Date: 03/20/23 Status: Ordered amLODIPine 10 mg oral tablet 10 mg, 1, tablet, By Mouth, Daily, # 90 tablet, Refills 3, Tot. Refills 3, Maintenance, 11/03/22 11:30:00 EDT, Route to Pharmacy Electronically, [facility] ([facility] ), Partial fill upon patient [...] Pharmacy Electronically, [facility]/pharmacy #[id number], Partial fill upon patient request if the [...] 3 Refills, Maintenance, 01/19/23 18:26:00 EDT, [facility] [place],[facility], Partial fill upon patient request [...] 12/08/22 11:17:00 EDT, Solution, [facility] ([facility]), Partial fillupon patient request if [...] Confirmed 06/21/05 Active BPH - [facility] Confirmed 03/14/21 Active Chronic kidney disease stage 3 Confirmed 05/17/11 Active CAD; s/p CABG 1997, [place] 2006 w/stent; heart transplant 04/30 Confirmed Active Diabetes mellitus with PVD; stents; [facility] Confirmed Active Diabetes mellitus [...] Confirmed 06/15/15 Active Microscopic hematuria; [facility] Confirmed Active Neck pain Confirmed [...] B12 Confirmed Active Tremor - Neurology at [facility] Confirmed 02/07/18 Active Type 2 DM with renal manifestations; [facility] Confirmed 05/04/16 Active Vitamin D deficiency Confirmed Active 1EF 20-25% prior to transplant Social History Social History Type Response Smoking Status Former smoker, quit more than 30 days ago entered on: 10/24/22 Sex Patient Care team information Care Team Personnel Name: Nenita Song Position: [facility] RN Supv Member Role: Primary Care Nurse Name: Sherice Mariscal RN Position: [facility] RN Member Role: Primary Care Nurse Name: Najma Michael RN Position: [facility] RN Member Role: Primary Care Nurse Name: Mallory Masterson NP Position: Reference Physician Member Role: Primary Care Nurse Address: Address: [address] [place] [address]- Name: Scarlet Rosenthal RN Position: [facility] RN Member Role: Primary Care Nurse Name: Dung Chen MD Position: [facility] Physician - Primary Care Member Role: PCP Address: Address: [address] [place] [address]- Name: Heydi Oviedo RN Position: [facility] Hospital Wax Pumper Member Role: Primary Care Nurse Name: Mercy Veliz RN Position: [facility] RN Member Role: Primary Care Nurse Name: Sandra Cat Position: [facility] Outreach Member Role: Lifetime Consulting Physician Name: Nicki Garcia RN Position: [facility] RN Member Role: Primary Care Nurse Name: Vane Davalos RN Position: [facility] RN Member Role: Primary Care Nurse Name: Belinda Stevenson RN Position: [facility] SN RN Member Role: Primary Care Nurse Name: Luis Peters MD Position: [facility] Renal MD Member Role: Lifetime Consulting Physician Address: Address: [address] [place] [address] [address] [facility] [place] [address]- [place] Name: Zulma Martinez MD Position: [facility] Cardiology MD Member Role: Lifetime Consulting Physician Address: Address: [address] [place] [address]- [place] Name: Evelyn Jean-Baptiste RN Position: [facility] RN Member Role: Primary Care Nurse Name: Hilda Mcdonald RN Position: [facility] RN Member Role: Primary Care Nurse Care Team Related Persons Name: LUCIA BATEMAN Address: home [address] [place] [address]
--- OUTSIDE RECORDS SUMMARY | 2023-05-15 09:00 | XMS_ITS | Continuity of Care Document ---
Author Name Unknown Organization [facility] Address [address] [place] [address]- Care Team Providers Care Primer Expeditor And Drier Name Role Phone Dung Chen MD Primary Care Physician Encounter [facility] Date(s): 01/22/20 - 01/29/20 [facility] [address] [place] [address]- [facility] Attending Physician: Felix Duque MD [...] he received this seasons flu vaccine at [place]. 3Admin Note: Patient states he received pneumovax in 2004 at [place]. Medications aspirin 81 mg oral tablet 1 [...] 06/09/19 9:51:00 EST, EC Capsule, [facility]/pharmacy #[id number], 175, cm, 12/05/18 15:23:00 EDT, [...] EDT, Route to Pharmacy Electronically, [facility]/pharmacy #[id number], 176, cm, 01/06/20 19:56:00 EDT, [...] to Pharmacy Electronically, [facility]/pharmacy #[id number], 175, cm, 12/05/18 15:23:00 EDT, [...]
--- OUTSIDE RECORDS SUMMARY | 2023-05-15 09:00 | XMS_ITS | Continuity of Care Document ---
Author Name Unknown Organization [facility] Address [address] [place] [address]- Care Team Providers Care Brattice Builder Name Role Phone Dung Chen MD Primary Care Physician [place] [id number] Date(s): 09/16/22 - 11/13/22 [facility] [address] [place], [place] [address] Attending Physician: Dung Chen MD Allergies, Adverse Reactions, Alerts Substance Reaction Severity Status lisinopril Active Immunizations Given and Recorded Vaccine Date Status Refusal Reason SARS-CoV-2 mRNA (ilvqgrr-nfnx-tsmql) vax 07/18/21 Recorded SARS-CoV-2 (COVID-19) mRNA BNT-162b2 [...] he received this seasons flu vaccine at [place]. 3Admin Note: Patient states he received pneumovax in 2004 at [place]. Medications amLODIPine 10 mg oral tablet 10 mg, 1, tablet, By Mouth, Daily, # 90 tablet, Refills 3, Tot. Refills 3, Maintenance, 11/03/22 11:30:00 EDT, Route to Pharmacy Electronically, [facility] ([facility] ), Partial fill upon patient request if the prescription is for... Start Date: 11/03/22 Status: Ordered apixaban Starter Pack 5 mg oral tablet = 10 mg, By Mouth, 2 times a day, first dose on 10/15 at 2100, # 1 pack/packet, 0 Refills, Maintenance, 10/15/22 10:04:00 EDT, Tablet, [facility], Partial fill upon patient request if theprescription is for a schedule II opioid drug., 173... Start Date: 10/15/22 Status: Ordered aspirin 81 mg oral delayed release tablet 81 mg, 1, tablet, By Mouth, Daily, # 30 tablet, Refills 0, Tot. Refills 0, Maintenance, 06/08/21 11:45:00 EST, Route to Pharmacy Electronically, [facility]/pharmacy #[id number], Partial fill upon patient request if the [...] Maintenance, 04/12/22 19:33:00 EST, Capsule, [facility]/pharmacy #[id number], Partial fill upon patient request if [...] 09/25/21 Status: Ordered Freestyle [place] 2 [place] Freestyle Nona 2 [place], See Instructions, # 1 each, Refills 0, [...] Maintenance, 08/23/22 12:58:00 EDT, [facility] ([facility]), 176, cm... Start Date: 08/23/22 Status: Ordered insulin degludec (concentrated) 200 units/mL subcutaneous solution See Instructions, 20 units in the AM and 30 units in the PM 30 days supply, # 75 mL, 3 Refills, Maintenance, 10/15/22 10:03:00 EDT, [facility], Partial fill upon patient [...] Weight Start Date: 08/17/22 Status: Ordered Pen [place], 31 G x 8 mm BD Ultra Fine III See Instructions, # 300 each, Refills 6, Tot. Refills 6, Maintenance, use as directed for Type 2 Diabetes Mellitus for 5 injections per day E11.9, 12/09/21 9:52:00 EDT, Supply, 175.3, cm, 12/06/21 7:36:00 EDT, Height, 95.3, kg, 12/06/21 7:36:00 EDT... Start Date: 12/09/21 Stop Date: 08/31/23 Status: Ordered Pen [place], 32 G x 4 mm BD Ultra [...] Route to Pharmacy Electronically, [facility] ([facility]), 173, cm, 10/12/22 19:31:00 EDT, [...] r) present Confirmed 06/21/05 Active BPH - [facility] Confirmed 03/14/21 Active BMI 33.0-33.9,adult Confirmed Active Chronic kidney disease stage 3 Confirmed 05/17/11 Active CAD; s/p CABG 1997, [place] 2006 w/stent; heart transplant 04/30 Confirmed Active DVT, lower extremity Confirmed Active Diabetes mellitus with PVD; stents; [facility] Confirmed Active Diabetes mellitus [...] back pain Confirmed 06/15/15 Active Microscopic hematuria; [facility] Confirmed Active Neck pain [...] Confirmed 06/21/05 Active Tremor - Neurology at [facility] Confirmed 02/07/18 Active Type 2 DM with renal manifestations; [facility] Confirmed 05/04/16 Active 1EF 20-25% prior [...] Role: Primary Care Nurse Address: Address: [address] [place] [address]- Name: Scarlet Rosenthal RN Position: [facility] SN RN Member Role: Primary Care Nurse Name: Khurram Hansen RN Position: [facility] RN Member Role: Primary Care Nurse Name: Dung Chen MD Position: [facility] Physician - Primary Care Member Role: PCP Address: Address: [address] [place] [address]- [place] Name: Heydi Oviedo RN Position: [facility] Hospital Power Sweeper Operator Member Role: Primary Care Nurse Name: [...] Role: Lifetime Consulting Physician Address: Address: [address] [facility] [address] [facility] [place] [address]- [place] Name: Zulma Martinez MD Position: [facility] Cardiology MD Member Role: Lifetime Consulting Physician Address: Address: [address] [place] [address] [place] [address]- [place] Name: Evelyn Jean-Baptiste RN Position: S RN Member Role: Primary Care Nurse Name: Hilda Mcdonald RN Position: S RN Member Role: Primary Care Nurse Care Team Related Persons Name: LUCIA BATEMAN Address: home [address] [place] [address]
--- OUTSIDE RECORDS SUMMARY | 2023-05-15 09:00 | XMS_ITS | Continuity of Care Document ---
Author Name Unknown Organization [facility] ter Address [address] [place] [id number] Care Team Providers Care Technical Aid Name Role Phone Dung Chen MD Primary Care Physician Encounter [facility] [place] [facility] [place](s): 09/10/22 - 09/12/[address] [id number] Encounter Diagnosis Pre-syncope(Final) - 09/10/22 Discharge Disposition: A-D/C Home Attending Physician: Lior Jensen MD Admitting Physician: Noreen Mercado MD Referring Physician: Not on Staff, Referring MD Allergies, Adverse Reactions, Alerts Substance Reaction Severity Status lisinopril Active Immunizations Given and Recorded Vaccine Date Status Refusal Reason SARS-CoV-2 mRNA ([id number]) vax 07/18/21 Recorded SARS-CoV-2 (COVID-19) mRNA BNT-162b2 [...] he received this seasons flu vaccine at [place]. 3Admin Note: Patient states he received pneumovax in 2004 at [place]. Medications amLODIPine 5 mg oral tablet 5 mg, Tablet, By Mouth, 09/12/22 9:00:00 EDT Start Date: 09/12/22 Stop Date: 09/12/22 Status: Completed amLODIPine 5 mg oral tablet 5 mg, 1, tablet, By Mouth, Daily, # 90 tablet, Refills 1, Tot. Refills 1, Maintenance, 05/12/22 11:54:00 EST, Route to Pharmacy Electronically, [facility] ([facility] ), Partial fill upon patient [...] 0 Refills, Maintenance, 09/12/22 12:42:00 EDT, Tablet, [facility]/pharmacy #[id number], Partial fill up... Start Date: 09/12/22 Status: [...] oral capsule 300 mg, Capsule, By Mouth, 09/12/22 15:00:00 EDT Start Date: 09/12/22 Stop Date: 09/12/22 Status: Completed gabapentin 300 mg oral capsule 1, capsule, By Mouth, 3 times a day, # 270 capsule, Refills 5, Tot. Refills 5, 02/03/22 9:07:00 EDT, Route to Pharmacy Electronically, [facility] ([facility]), 175.3, cm, 01/03/22 13:47:00 EDT, Height, 95.3, kg, 12/06/21 7:36:00 ED... Start Date: 02/03/22 Status: Ordered Humalog Cartridge 100 units/mL subcutaneous injection See Instructions, INSERT CARTRIDGE INTO INPEN DEVICE AND INJECT SUBCUTANEOUSLY 16 UNITS 3 TIMES DAILY WITH MEALS - MAX DAILY DOSE: 48 UNITS, # 45 mL, 3 Refills, Maintenance, 08/23/22 12:58:00 EDT, [facility] ([facility]), 176, cm... Start Date: 08/23/22 Status: Ordered insulin degludec (concentrated) 200 units/mL subcutaneous solution See Instructions, 42 units in the AM and 52 units in the PM 90 days supply, # 75 mL, 3 Refills, Maintenance, 05/24/22 12:19:00 EST, [facility] ([facility] ), Partial fill upon patient [...] Weight Start Date: 08/17/22 Status: Ordered Pen Camino, 31 G x 8 mm BD Ultra Fine III See Instructions, # 300 each, Refills 6, Tot. Refills 6, Maintenance, use as directed for Type 2 Diabetes Mellitus for 5 injections per day E11.9, 12/09/21 9:52:00 EDT, Supply, 175.3, cm, 12/06/21 7:36:00 EDT, Height, 95.3, kg, 12/06/21 7:36:00 EDT... Start Date: 12/09/21 Stop Date: 08/31/23 Status: Ordered Pen Camino, 32 G x 4 mm BD Ultra [...] Pharmacy Electronically, [facility]/pharmacy #[id number], Partial fill upon patient request if the [...] Route to Pharmacy Electronically, [facility] ([facility] ), 175, cm, 05/12/22 11:49:00 [...] r) present Confirmed 06/21/05 Active BPH - [facility] Confirmed 03/14/21 Active BMI 33.0-33.9,adult Confirmed Active Chronic kidney disease stage 3 Confirmed 05/17/11 Active CAD; s/[place] CABG 1997, [place]; heart transplant 04/30 Confirmed Active DVT, lower extremity Confirmed Active Diabetes mellitus with PVD; stents; [facility] Confirmed Active Diabetes mellitus with [...] back pain Confirmed 06/15/15 Active Microscopic hematuria; [facility] Confirmed Active Neck pain [...] Confirmed 06/21/05 Active Tremor - Neurology at [facility] Confirmed 02/07/18 Active Type 2 DM with renal manifestations; [facility] Confirmed 05/04/16 Active 1EF 20-25% prior to transplant Results Radiology Reports * Exam Date Time Procedure Performing Provider Status 09/11/22 2:15 PM US Doppler Ext Lower Venous Left Belsk ie , Priya; Auth (Verified) Notes: (US Doppler Ext Lower Venous Left) Reason For Exam: Erythema RESULT: US Doppler Ext Lower Venous Left US Doppler Ext Lower Venous Left Reason: Erythema; Clinical Question(s): Occlusion COMPARISON: None IMAGING TECHNIQUE: Ultrasound of the veins from the groin through the calf was performed using grayscale, color, and spectral Doppler ultrasound assessing for complete compressibility and normal flowcharacteristics. FINDINGS: Common femoral vein: Patent. No thrombosis. Femoral vein: Patent. No thrombosis. Popliteal vein: Patent. No thrombosis. Gastrocnemius veins: The visualized portions are patent without evidence of thrombosis. Peroneal veins: Nonocclusive thrombus identified in one of 2 peroneal veins. The thrombus measures approximately 7 cm in length. The thrombus is remote from the confluence with the popliteal vein. Posterior tibial veins: The visualized portions are patent without evidence of thrombosis. Contralateral common femoral vein: Patent. No thrombosis. OTHER FINDINGS: None. IMPRESSION: Nonocclusive thrombus identified in one of 2 peroneal veins. An actionable message (Nobles) has been communicated via the [employer] system on 09/11/2022 4:03 PM, Message ID [id number]. WSN: [id number] Ordering Physician: Elo Addison Dictated By: Markel Richmond MD Dictated Date/Time: 09/11/22 4:03 pm Reviewed By: Markel Richmond MD Signed By: Markel Richmond MD Signed Date/Time: 09/11/22 4:03 pm Transcribed By: MAVIS Transcribed Date/Time: 09/11/22 4:00 pm Vital Signs Most recent to oldest [Reference Range]: 1 2 3 Weight 102 kg (09/12/22 5:27 AM) 101.7 kg (09/11/22 5:14 AM) 101.7 kg (09/10/22 7:51 PM) Oxygen Saturation [94-100 %] 100 % (09/12/22 2:04 PM) 100 % (09/12/22 7:37 AM) 95 % (09/12/22 2:04 AM) Pulse Rate [55-90 bpm] 91 bpm *H* (09/12/22 2:04 PM) 95 bpm *H* (09/12/22 7:37 AM) 89 bpm (09/12/22 2:04 AM) Blood Pressure [90-138/55-84 mm Hg] 137/82mm Hg (09/12/22 2:04 PM) 127/78mm Hg (09/12/22 9:36 AM) 127/78mm Hg (09/12/22 7:37 AM) Respiratory Rate [16-30 br/min] 18 br/min (09/12/22 3:20 PM) 18 br/min (09/12/22 2:20 PM) 18 br/min (09/12/22 2:04 PM) Temperature [96.8-100.4 DegF] 97.0 DegF (09/12/22 2:04 PM) 97.0 DegF (09/12/22 7:37 AM) 97.6 DegF (09/12/22 2:04 AM) Mode of Delivery (Oxygen) Room air (09/12/22 2:04 PM) Room air (09/12/22 7:37 AM) Room air (09/12/22 2:04 AM) Blood pressure sites Arm, right (09/12/22 2:04 PM) Arm, right (09/12/22 7:37 AM) Arm, left (09/12/22 2:04 AM) Temperature Route Temporal (09/12/22 2:04 PM) Temporal (09/12/22 7:37 AM) Temporal (09/12/22 2:04 AM) Weight Obtained Via Bed scale (09/11/22 5:14 AM) Bed scale (09/10/22 7:51 PM) Social History Social History Type Response Smoking Status Former smoker, quit more than 30 days ago entered on: 06/01/21 Sex Admission evaluation note * King CALLOWAY, Juan Maya: PERFORM, MODIFY Event Display: Admission Note Authored Date: [id number] Patient: ??REJI THOMPSON ? Age:??71 Years?Sex:??Male?:??1950?? Chief Complaint/Reason for Consultation Pt became dizzy/had near syncopal event while at granddaughter's lacrosse game. Denies SOB, denies chest pain History of Present Illness Mr. Thompson is a 71-year-old gentleman with a PMH of diabetes with continuous glucose monitor in place, hypertension CKD,?? cardiac transplant on mycophenolate, tacrolimus, prednisone, hyperparathyroidism presenting to the ED after near syncopal episode.? He was at a lacrosse game out today for a long time when he started feeling lightheaded and like hewas going to pass out. He felt a warm feeling wash over him and he needed to be helped down to the ground. Did not lose consciousness. Thinks he was dehydrated. EMS was called. ?? On arrival to the ER he had positive orthostatic vitals, was hemodynamically stable. Labs showed Labs showed Hb 12.2, K 3.4, Cr 1.6 (baseline 1.1), troponin 107 then 78, mycophenolate level 5. EKG shows sinus rhythm with PACs, no ST elevations or depressions. ? Review of Systems All systems reviewed and negative except as indicated in HPI. Objective Vital Signs?? Temperature: 97.7 DegF (09/10/22 19:39:00) Temperature Route: Temporal (09/10/22 19:39:00) Pulse Rate:??94 bpm??High (09/10/22 19:39:00) Pulse Rate, Lyin bpm (09/10/22 18:34:00) Systolic Blood Pressure, Lyin mm Hg (09/10/22 18:34:00) Diastolic Blood Pressure, Lyin mm Hg (09/10/22 18:34:00) Pulse Rate, Sittin bpm (09/10/22 18:34:00) Systolic Blood Pressure, Sittin mm Hg (09/10/22 18:34:00) Diastolic Blood Pressure, Sittin mm Hg (09/10/22 18:34:00) Pulse Rate, Standin bpm (09/10/22 18:34:00) Systolic Blood Pressure, Standin mm Hg (09/10/22 18:34:00) Diastolic Blood Pressure, Standin mm Hg (09/10/22 18:34:00) Respiratory Rate: 18 br/min (09/10/22 19:39:00) Systolic Blood Pressure: 125 mm Hg (09/10/22 19:39:00) Diastolic Blood Pressure: 67 mm Hg (09/10/22 19:39:00) Blood pressure sites: Arm, left (09/10/22 19:39:00) Mean Arterial Pressure: 86 mm Hg (09/10/22 19:39:00) Pulse Pressure: 58 mm Hg (09/10/22 19:39:00) Oxygen Saturation: 95 % (09/10/22 19:39:00) Mode of Delivery (Oxygen): Room air (09/10/22 19:39:00) Early Warning Score: 7 (09/10/22 22:06:28) ? Intake/Output? 09/10 12:43 09/10 07:00 09/09 07:00 09/08 07:00 ?? 09/10 23:59 09/10 23:59 09/10 06:59 09/09 06:59 Urine Count ?1 ?1 ?0 ?0 ? Physical Exam Constitutional: Alert, in no acute distress. Head EENT: Extraocular muscle movement intact.??Moist mucous membranes.?? Neck: Supple. No JVD. Respiratory: Clear to auscultation. No wheezing or crackles. No use of accessory muscles. Cardiovascular: S1S2 regular. No murmurs, rubs or gallops. Gastrointestinal: Abdomen soft, non-tender, non-distended. Normal bowel sounds. Genitourinary: No CVA tenderness. Extremities: No lower extremity pitting??edema. No cyanosis or clubbing. Neurologic: AAOx3, Speech normal. No focal neurological deficits. Skin: No rash. Psychiatric: Normal mood and affect Assessment/Plan Presyncope Preceded by warm feeling Orthostatic vitals positive EKG showed normal sinus rhythm with normal intervals Downtrending troponin Ddx: orthostatics vs cardiogenic 2/2 arrhythmia/ischemia/valvular disease - transplant coorindator notified, recommened 24 hour telemetry monitoring - monitor telemetry for arrhythmia - will hold off on further diagnostics as patient orthostatics positive and given history of sitting out watching a game during a hot day, likely 2/2 dehydration ?? LATOYA Baseline Cr 1.1, on admission 1.6 Likely prerenal 2/2 dehydration - IV fluids - encourage PO intake ?? Elevated troponin Likely demand ischemia 2/2 dehydration - trend to peak - EKG PRN for chest pain ?? s/p heart transplant - continue home tacrolimus, prednisone, Cellcept ?? DM II - continue SSI - goal 140-180 ?? Code status: full DVT ppx:??lovenox Diet: regular Dispo: floors ?? Total Visit Time: I personally spent a total of 80 minutes, including both [id number]-tm-[id number] and snl-zopn-cp-face time on the date of the encounter, addressing the above diagnoses. Activities performed in this time include chart review, obtaining / reviewing history, performing amedically necessary evaluation, documentation and counseling. ?? 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 INH Headache Heart transplant status History of depression History of SCC in situ; [facility] History of venous thrombosis - R IJ complete, partial on L; AC x3mo Hyperparathyroidism Immunosuppressed status Insomnia Ischemic cardiomyopathy Left foot drop Leukopenia Low back pain Microscopic hematuria; [facility] Neck pain Neuropathy due to diabetes mellitus Obese class I Obstructive sleep apnea syndrome Osteopenia - minimal, on DXA 08/01 Peripheral neuropathy Presbyesophagus Pure hypercholesterolemia Tremor - Neurology at [facility] Type 2 DM with renal manifestations; [facility] Unsteady gait ? Past Surgical History Esophagogastroduodenoscopy [...] Blood Glucose. ??E11.65 Durable Medical Equipment (Pen Camino, 31 G x 8 mm BD Ultra [...] Inpatient Medications Medications (11) Active SCHEDULED: (3) Enoxaparin 40 mg Inj (Enoxaparin Inj) ??40 mg 0.4 mL, Subcutaneous Injection, Daily Insulin Lispro 100 units/mL Inj (3mL) (Insulin LISPRO Sliding Scale) ??2-10 units, Subcutaneous Injection, 3 times a day before meals NaCl 0.9% Flush 3ml (NaCL 0.9% Flush) ??3 mL, IV Push, Every 8 hours CONTINUOUS: (1) Lactated Ringers (1000 mL) Cont IV 1,000 mL (LR 1,000 mL) ??1,000 mL, IV Infusion, 100 mL/hr PRN: (7) Acetaminophen 325 mg Tablet (Acetaminophen Tablet) ??650 [...] mg, Chew, 3 times a day ? Results Recent Labs BLOOD COUNT & DIFF WBC 7.7 k/mm3 ()?? 09/10/2022 14:01 RBC 4.38 m/mm3 (Low)?? 09/10/2022 14:01 Hgb 12.2 Gm/dL (Low)?? 09/10/2022 14:01 Hct 37.7 % (Low)?? 09/10/2022 14:01 MCV 86.1 femtoliters ()?? 09/10/2022 14:01 MCH 27.9 pg ()?? 09/10/2022 14:01 MCHC 32.4 g/dL (Low)?? 09/10/2022 14:01 Platelet Count 147 k/mm3 (Low)?? 09/10/2022 14:01 RDW-SD 48.0 femtoliters (High)?? 09/10/2022 14:01 MPV 9.2 femtoliters (Low)?? 09/10/2022 14:01 Nucleated RBC (Automated) 0.0 #/100 WBC'S ()?? 09/10/2022 14:01 Abs. NRBC 0.0 k/mm3 ()?? 09/10/2022 14:01 Abs. Neut 6.6 k/mm3 ()?? 09/10/2022 14:01 Abs. Lymph 0.5 k/mm3 (Low)?? 09/10/2022 14:01 Abs. Chase 0.5 k/mm3 ()?? 09/10/2022 14:01 Abs. Eo 0.1 k/mm3 ()?? 09/10/2022 14:01 Abs. Baso 0.0 k/mm3 ()?? 09/10/2022 14:01 Neut % 86.0 % (High)?? 09/10/2022 14:01 Lymph % 6.1 % (Low)?? 09/10/2022 14:01 Chase % 6.1 % ()?? 09/10/2022 14:01 Eos % 1.3 % ()?? 09/10/2022 14:01 Baso % 0.1 % ()?? 09/10/2022 14:01 Imm Gran 0.4 % ()?? 09/10/2022 14:01 Abs. Imm Gran 0.0 k/mm3 ()?? 09/10/2022 14:01 ?? CARDIAC High Sensitivity Troponin (HSTnT) 78 ng/L (Critical)?? 09/10/2022 16:30 ?? CHEM GENERAL Sodium 141 mmol/L ()?? 09/10/2022 14:01 Potassium 3.4 mmol/L (Low)?? 09/10/2022 14:01 Chloride 100 mmol/L ()?? 09/10/2022 14:01 Bicarbonate Level 31 mmol/L (High)?? 09/10/2022 14:01 Anion Gap 10 ()?? 09/10/2022 14:01 Glucose Level 123 mg/dL (High)?? 09/10/2022 14:01 Glucose, POC 277 mg/dL (High)?? 09/10/2022 22:04 BUN 29 mg/dL (High)?? 09/10/2022 14:01 Creatinine-Blood 1.6 mg/dL (High)?? 09/10/2022 14:01 Estimated GFR Creatinine 47 ML/MIN/1.73 M2 ()?? 09/10/2022 14:01 Calcium 8.9 mg/dL ()?? 09/10/2022 14:01 ?? HEME OTHER Hold Blue Top SPECIMEN DISCARDED AFTER 4 HOURS. ()?? 09/10/2022 14:01 ?? TOXICOLOGY/TDM Mycophenolate Level 5.0 ??g/mL (High)?? 09/10/2022 14:01 ?? VIROLOGY COVID-19 by RT-PCR NEGATIVE ()?? 09/10/2022 18:40 ? Blood Glucose Trend Glucose Level:??123 mg/dL??High (09/10/22 14:01:00) Glucose, POC:??277 mg/dL??High (09/10/22 22:04:00) ? CBC, CBC w/Diff?? CBC?? Differential?? WBC: 7.7 k/mm3 (14:01) Abs. Neut: 6.6 k/mm3 (14:01) RBC:??4.38 m/mm3??Low (14:01) Abs. Lymph:??0.5 k/mm3??Low (14:01) Hct:??37.7 %??Low (14:01) Abs. Chase: 0.5 k/mm3 (14:01) RDW-SD:??48 femtoliters??High (14:01) Abs. Eo: 0.1 k/mm3 (14:01) Nucleated RBC (Automated): 0 #/100 WBC'S (14:01) Abs. Baso: 0 k/mm3 (14:01) Abs. NRBC: 0 k/mm3 (14:01) Neut %:??86 %??High (14:01) ?? Lymph %:??6.1 %??Low (14:01) ?? Chase %: 6.1 % (14:01) ?? Eos %: 1.3 % (14:01) ?? Baso %: 0.1 % (14:01) ?? Imm Gran: 0.4 % (14:01) ?? Abs. Imm Gran: 0 k/mm3 (14:01) ? LFT?? No qualifying data available. ?? Urinalysis?? No qualifying data available. ?? Microbiology ?? COVID-19 (Novel Coronavirus), Rapid PCR?? Completed?? Source: Nasal Body Site: Nose Collected Dt/Tm: 09/10/2022 13:07 Last Updated Dt/Tm: 09/10/2022 19:44 ? Blood Gases?? No qualifying data available. ?? Cardiology * Event Display: Cardiac Rhythm Strips Authored Date: Hospital Progress note * Joana Martin RN: PERFORM, SIGN, VERIFY Event Display: Progress Note Hospital Authored Date: [id number] Patient: REJI THOMPSON Age: 71 years Sex: Male : 1950 Associated Diagnoses: None Author: Joana Martin RN Findings Problem Related to Alteration in Cardiac Function (new) : Alteration in Cardiac Function/new 09/11/2022 23:00 EDT Alteration in Cardiac Status Related to Syncope Goals & Outcomes, Cardiac Status Pt will resume/maintain adequate cardiac output, Pt will resume/maintain adequate hemodynamic status, Pt will resume/maintain adequate respiratory function, Pt will resume/maintain intact neuro function, Pt will maintain adequate GI/ function appropriate for pt, Pt/caregiver will state understanding of diagnosis Cardiac Interventions Implemented Assess/monitor cardiac status, Assess/monitor neuro status, Assess/monitor respiratory status, Document & Monitor O2 Sats; Administer O2 as ordered, Ensure adequate caloric intake, If no bowel movement in 3 days activate bowel regime, Monitor & document daily weight, Teach/encourage deep breath & cough exercises, Assess pt for shortness of breath, lightheadedness BH Goals/Interventions, Cardiac Yes Cardiac, Problem Start 09/11/2022 10:33 Reviewed Plan with, Cardiac Status Patient Patient Progression, Cardiac Status Patient progressing according to plan . Nursing Data Vital Signs : VITAL SIGNS SECTION 09/12/2022 2:04 EDT Temperature 97.6 DegF Temperature Route Temporal Pulse Rate 89 bpm Respiratory Rate 18 br/min Systolic Blood Pressure 131 mm Hg Diastolic Blood Pressure 83 mm Hg Blood pressure sites Arm, left Mean Arterial Pressure 99 mm Hg Pulse Pressure 48 mm Hg Oxygen Saturation 95 % Mode of Delivery (Oxygen) Room air . Evaluation Pt alert and oriented, vss, afebrile, tele SR. Indep. in room with walker. Denies pain/sob. LE dressings clean and dry, changed during day. Eliquis started for LE DVT. Cellcept level of 5.0 on 09/10, will draw level this am and wait for result prior to dose. Pt resting and appears comfortable. Possible d/c home today. . * Nicki Garcia RN: MODIFY, SIGN, PERFORM, SIGN, VERIFY Event Display: Progress Note Hospital Authored Date: [id number] Patient: REJI THOMPSON Age: 71 years Sex: Male : 1950 Associated Diagnoses: None Author: Nicki Garcia RN Findings Problem Related to Alteration in Cardiac Function (new) : Alteration in Cardiac Function/new 09/11/2022 9:00 EDT Alteration in Cardiac Status Related to Syncope Goals & Outcomes, Cardiac Status Pt will resume/maintain adequate cardiac output, Pt will resume/maintain adequate hemodynamic status, Pt will resume/maintain adequate respiratory function, Pt will resume/maintain intact neuro function, Pt will maintain adequate GI/ function appropriate for pt, Pt/caregiver will state understanding of diagnosis Cardiac Interventions Implemented Assess/monitor cardiac status, Assess/monitor neuro status, Assess/monitor respiratory status, Assess for tolerance of IV infusions; verify rate & dose, Call/Report variances in ECG to provider, Document & Monitor O2 Sats; Administer O2 as ordered, Ensure adequate caloric intake, If no bowel movement in 3 days activate bowel regime, Monitor & document daily weight, Monitor ECG w/administration of antiarrhythmics (CO 13.420), Teach/encourage deep breath & cough exercises, Turn & reposition Q2 hours per activity restrictions BH Goals/Interventions, Cardiac Yes Cardiac, Problem Start 09/11/2022 10:33 Reviewed Plan with, Cardiac Status Patient, Spouse/significant other Patient Progression, Cardiac Status Patient progressing according to plan . Nursing Data Vital Signs : VITAL SIGNS SECTION 09/11/2022 13:42 EDT Temperature 97.0 DegF Temperature Route Temporal Pulse Rate 93 bpm H Respiratory Rate 18 br/min Systolic Blood Pressure 144 mm Hg H Diastolic Blood Pressure 81 mm Hg Blood pressure sites Arm, right Mean Arterial Pressure 102 mm Hg Pulse Pressure 63 mm Hg Oxygen Saturation 100 % Mode of Delivery (Oxygen) Room air . Evaluation Patient is Aox4, NSR on tele, denies chest pain or SOB. Pt with multiple wounds on lower exts, pt with vascular disease. Dressings unwrapped this morning, re- dressed all wounds. Pt reports he goes [facility] as [facility]. L>R edema redness noted, US pending. Pt with complaints of occasional dizziness orthostatisc obtained and positive. Please see [facility]IS. LR discontinued by MD Gasca. Bed is locked, in the lowest position, and call ortiz is in reach. 185: US of LLE revealed nonocculsive thorombus in peroneal vein- pt to begin eliquis tonight. . * Azael CALLOWAY, Elo M: MODIFY, PERFORM Event Display: Progress Note Hospital Authored Date: Patient: ??THOMPSON, REJI ? Age:??71 Years?Sex:??Male?:??1950?? Subjective No overnight events Pt seen and evaluated at bedside No n/v Does note some worsening LLE swelling Review of Systems Pt feels at baseline today, no nauseea. vomiting, though does note some worsening swelling in RLE. Does not have sensation in legs. Objective Measurements?? Weight: 101.7 kg (09/11/22) ?? Vital Signs?? Temperature: 97 DegF (09/11/22 13:42:00) Temperature Route: Temporal (09/11/22 13:42:00) Pulse Rate:??93 bpm??High (09/11/22 13:42:00) Pulse Rate, Lyin bpm (09/11/22 09:53:00) Systolic Blood Pressure, Lyin mm Hg (09/11/22 09:53:00) Diastolic Blood Pressure, Lyin mm Hg (09/11/22 09:53:00) Pulse Rate, Sittin bpm (09/11/22 09:53:00) Systolic Blood Pressure, Sittin mm Hg (09/11/22 09:53:00) Diastolic Blood Pressure, Sittin mm Hg (09/11/22 09:53:00) Pulse Rate, Standin bpm (09/11/22 09:53:00) Systolic Blood Pressure, Standin mm Hg (09/11/22 09:53:00) Diastolic Blood Pressure, Standin mm Hg (09/11/22 09:53:00) Respiratory Rate: 17 br/min (09/11/22 17:05:00) Systolic Blood Pressure:??144 mm Hg??High (09/11/22 13:42:00) Diastolic Blood Pressure: 81 mm Hg (09/11/22 13:42:00) Blood pressure sites: Arm, right (09/11/22 13:42:00) Mean Arterial Pressure: 102 mm Hg (09/11/22 13:42:00) Pulse Pressure: 63 mm Hg (09/11/22 13:42:00) Oxygen Saturation: 100 % (09/11/22 13:42:00) Mode of Delivery (Oxygen): Room air (09/11/22 13:42:00) Early Warning Score: 5 (09/11/22 17:05:25) ? Intake/Output? 09/10 12:43 09/11 07:00 09/10 07:00 09/09 07:00 09/08 07:00 ?? 09/11 17:25 09/11 17:25 09/11 06:59 09/10 06:59 09/09 06:59 Intake ?720 ?600 ?120 ?0 ?0 Output ?750 ?750 ?0 ?0 ?0 Net Total ?-30 ? -150 ?120 ?0 ?0 ? Urine Count ?1 ?0 ?1 ?0 ?0 ? Physical Exam General: Patient in no acute distress?? HEENT: normocephalic, atraumatic.?? Respiratory: Adequate respiratory rate and effort on room air.?? CVS: regular rate and rhythm, S1 and S2 present, no murmurs, rubs or gallops. No JVD.?? Abdomen: soft, non tender, non distended, bowel sounds present, no organomegaly.?? Extremities: bilateral lower extremity erythema. RLE is colder to palpation with LLE being warmer with + edema. + excoriation on RLE. Neuro: alert and oriented x3. Cranial nerves II-XII grossly intact. Moving all extremities spontaneously. Normal tones, following simple commands.?? Derm: as in extremities Psych: Normal mood and affect?? _ Inpatient Medications Medications (21) Active SCHEDULED: (13) Amlodipine 5 mg Tablet (amLODIPine 5 mg oral tablet) ??5 mg, By Mouth, Daily Apixaban 5 mg Tablet (Apixaban Tablet) ??10 mg, By Mouth, 2 times a day Apixaban 5 mg Tablet (Apixaban Tablet) ??5 mg, By Mouth, 2 times a day Aspirin 81 mg EC Tablet (aspirin 81 mg oral delayed release tablet) ??81 mg, By Mouth, Daily Duloxetine 20 mg Capsule (DULoxetine Capsule) ??20 mg, By Mouth, 2 times a day Fludrocortisone 0.1 mg Tablet (fludrocortisone 0.1 mg oral tablet) ??0.1 mg, By Mouth, Daily Gabapentin 300 mg Capsule (gabapentin 300 mg oral capsule) ??300 mg, By Mouth, 3 times a day Insulin Lispro 100 units/mL Inj (3mL) (Insulin LISPRO Sliding Scale) ??2-10 units, Subcutaneous Injection, 3 times a day before meals Mycophenolate Sodium 360 mg ER Tablet (mycophenolic acid 360 mg oral delayed release tablet) ??720 mg, By Mouth, 2 times a day NaCl 0.9% Flush 3ml (NaCL 0.9% Flush) ??3 mL, IV Push, Every 8 hours PredniSONE 5 mg Tablet (predniSONE 5 mg oral tablet) ??5 mg, By Mouth, Daily Rosuvastatin 20 mg Tablet (rosuvastatin 20 mg oral tablet) ??20 mg, By Mouth, Daily Tacrolimus 1 mg Capsule (tacrolimus 1 mg [...] Recent Labs BLOOD COUNT & DIFF WBC 5.9 k/mm3 ()?? 09/11/2022 05:47 RBC 4.15 m/mm3 (Low)?? 09/11/2022 05:47 Hgb 11.3 Gm/dL (Low)?? 09/11/2022 05:47 Hct 35.9 % (Low)?? 09/11/2022 05:47 MCV 86.5 femtoliters ()?? 09/11/2022 05:47 MCH 27.2 pg ()?? 09/11/2022 05:47 MCHC 31.5 g/dL (Low)?? 09/11/2022 05:47 Platelet Count 136 k/mm3 (Low)?? 09/11/2022 05:47 RDW-SD 48.9 femtoliters (High)?? 09/11/2022 05:47 MPV 9.0 femtoliters (Low)?? 09/11/2022 05:47 Nucleated RBC (Automated) 0.0 #/100 WBC'S ()?? 09/11/2022 05:47 Abs. NRBC 0.0 k/mm3 ()?? 09/11/2022 05:47 Abs. Neut 4.9 k/mm3 ()?? 09/11/2022 05:47 Abs. Lymph 0.6 k/mm3 (Low)?? 09/11/2022 05:47 Abs. Chase 0.3 k/mm3 (Low)?? 09/11/2022 05:47 Abs. Eo 0.1 k/mm3 ()?? 09/11/2022 05:47 Abs. Baso 0.0 k/mm3 ()?? 09/11/2022 05:47 Neut % 81.9 % (High)?? 09/11/2022 05:47 Lymph % 9.8 % (Low)?? 09/11/2022 05:47 Chase % 5.7 % ()?? 09/11/2022 05:47 Eos % 1.7 % ()?? 09/11/2022 05:47 Baso % 0.2 % ()?? 09/11/2022 05:47 Imm Gran 0.7 % ()?? 09/11/2022 05:47 Abs. Imm Gran 0.0 k/mm3 ()?? 09/11/2022 05:47 ?? CARDIAC High Sensitivity Troponin (HSTnT) 78 ng/L (Critical)?? 09/10/2022 16:30 ?? CHEM GENERAL Sodium 141 mmol/L ()?? 09/11/2022 05:47 Potassium 3.7 mmol/L ()?? 09/11/2022 05:47 Chloride 100 mmol/L ()?? 09/11/2022 05:47 Bicarbonate Level 33 mmol/L (High)?? 09/11/2022 05:47 Anion Gap 8 ()?? 09/11/2022 05:47 Glucose Level 196 mg/dL (High)?? 09/11/2022 05:47 Glucose, POC 225 mg/dL (High)?? 09/11/2022 16:41 BUN 32 mg/dL (High)?? 09/11/2022 05:47 Creatinine-Blood 1.4 mg/dL (High)?? 09/11/2022 05:47 Estimated GFR Creatinine 54 ML/MIN/1.73 M2 ()?? 09/11/2022 05:47 Calcium 8.8 mg/dL ()?? 09/11/2022 05:47 Phosphorus 3.2 mg/dL ()?? 09/11/2022 05:47 Magnesium 1.6 mg/dL ()?? 09/11/2022 05:47 Protein, Total 6.4 Gm/dL ()?? 09/11/2022 05:47 Albumin 4.1 Gm/dL ()?? 09/11/2022 05:47 AG Ratio 1.8 ()?? 09/11/2022 05:47 Alkaline Phosphatase 74 units/L ()?? 09/11/2022 05:47 AST (SGOT) 15 units/L ()?? 09/11/2022 05:47 ALT (SGPT) 15 units/L ()?? 09/11/2022 05:47 Bilirubin, Total 0.2 mg/dL ()?? 09/11/2022 05:47 ?? HEME OTHER Hold Blue Top SPECIMEN DISCARDED AFTER 4 HOURS. ()?? 09/10/2022 14:01 ?? TOXICOLOGY/TDM Tacrolimus Level 9.0 ng/mL ()?? 09/10/2022 14:01 Mycophenolate Level 5.0 ??g/mL (High)?? 09/10/2022 14:01 ?? VIROLOGY COVID-19 by RT-PCR NEGATIVE ()?? 09/10/2022 18:40 ? Assessment/Plan ?? Assessment:??Reji Thompson is a 71-year-old gentleman with history of??diabetes, status post heart transplant??on Mycophenolate, tacrolimus, prednisone, hyperparathyroidism, chronic orthostasis on fludrocortisone, hypertension, CKD 2, who presented to the ED on 09/10 after a near syncopal event, foundto be orthostatically hypotensive.?? Continued on telemetry per [facility] cardiac transplant recommendations however was persistently orthostatic on 09/11, and found to have left lower extremity swelling secondary to peroneal DVT. [id number] ?? Orthostatic presyncope History consistent with orthostasis/vagal episode given that he had a preceding warm feeling. Orthostatic vitals positive at time of presentation as well as 09/11 On further discussion with patient family, patient is normally on fludrocortisone which was discontinued during this hospitalization. EKG: Normal sinus rhythm Telemetry today: Normal sinus rhythm ?human resources operations coordinator notified, recommended 24-hour telemetry monitoring, completed without evidence of arrhythmia ?Continued on cardiac monitoring should any arrhythmia arise ?Restart fludrocortisone ?Repeat orthostatics 09/12 AM ?? Acute kidney injury on CKD Baseline creatinine 1.1, 1.6 on admission which since downtrended. Patient received approximately 500 cc normal saline ?Continue to monitor BMP ?Avoid nephrotoxins ?Encourage p.o. intake, will hold off on further IV fluids at this time. ?? Elevated troponin Patient without any chest pain, thought to be likely secondary to demand ischemia. No tachycardia chest pain or shortness of breath to suggest pulmonary embolism. ?EKG as needed for chest pain ?? LLE Distal DVT 7cm DVT in Peroneal vein noted in LLE US Doppler - Discussed risks and benefits of starting DOAC with patient including copay (approx 140$/mo), pt at lower risk for bleeding - RLE Doppler done in 06/09 which was negative - reach out to Dr Hopkins given pt already on ASA and plavix for PAD to discuss ongoing DAPT with new DOAC.? Chronic medical conditions: Status post cardiac transplant at H: Continue home tacrolimus, prednisone, CellCept, will reach out to [facility] for further dose monitoring. ??Patient reportedly followed there and had recent labs drawn to monitor levels. ?? Type 2 diabetes: Continue SSI ?? Peripheral vascular disease: Status post ballooning of right lower extremity approximately 2 monthsago. ??On Plavix and aspirin at home. We will reach out to Dr. Hopkins vascular surgery prior to d/c to dicjames Kaufman ?? Diet:Cardiac diabetic DVT prophylaxis: Eliquis Full AC Code Status: full OMN: Ongoing orthostasis, new DVT Dispo: likely home with services on 09/12 ?? Patient case and plan discussed with ??Viet?? Elo Addison MD Internal Medicine PGY-3 Pager: [phone]? * Kelsey Llanos MD: PERFORM Event Display: Progress Note Hospital Authored Date: [id number] Attending Attestation:??I have interviewed and examined??REJI??BHAVANA??on??09/11, and reviewed the vital signs, documentation,??and lab/radiology/ancillary data in [facility]. ??I have discussed their case and management with the resident and RN and agree with the findings and plan as documented in the resident???s note.?? I have additionally discussed the workup, diagnosis, and treatment plan with the patient/career consultant. ?? Additions/corrections: Mr. Thompson states he is doing well. ??He and his ??concur that his left lower extremity is more swollen??than normal, though he reports no increased pain.?? He does have extensive??changes consistent with peripheral arterial disease, and is an active treatment. ??Will obtain ultrasound. ??Note results indicated in??resident documentation, with plan to discuss with??vascular surgery. ?? Diagnoses Pre-syncope ??(R55) 2. ??Heart transplant status ??(Z94.1) 3. ??AICD (automatic cardioverter/defibrillator) present ??(Z95.810) 4. ??Dysautonomia ??(G90.1) 5. ??Immunosuppressed status ??(D84.9) 6. ??Chronic kidney disease stage 3 ??(N18.30) 7. ??Diabetes mellitus with PVD; stents; [facility] ??(E11.51) 8. ??BMI 33.0-33.9,adult ??(Z68.33) ?? medical necessity: as outlined in progress note, ??at risk for recurrent syncope, pending discussion of ultrasound, improvement in _ clinical status, and establishment of safe discharge plan with cardiology,??vascular surgery, and transplant surgery. ?? Note * Hilda Mcdonald RN: PERFORM Event Display: Discharge/Transfer Note Hospital Authored Date: [id number] Nursing Discharge Note Entered On: 09/12/2022 17:13 EDT Performed On: 09/12/2022 17:12 EDT by Hilda Mcdonald RN Nursing Discharge Note 2 Discharge Time : 09/12/2022 17:12 EDT Discharge Level of Care at Discharge : Home/Prison/Foster Care Patient Left Unit Via : Wheelchair Patient Accompanied Off Unit with : Responsible adult DC Instructions Provided & Signed by Pt : Yes Patient Understands D/C Instructions : Yes Patient Instructions Discharge Signed : Yes Did Pt have Specialty Bed or Wound Vac : No Hilda Mcdonald RN - 09/12/2022 17:12 EDT * Tigist CALLOWAY, Ganga: MODIFY, MODIFY, PERFORM Event Display: Discharge/Transfer Note Hospital Authored Date: [id number] Patient: ??REJI THOMPSON ? Age:??71 Years?Sex:??Male?:??1950?? Patient Information Discharge Location: 7 Primary Care Physician: Dung Chen MD Admit Date/Time: 09/10/22 12:43 Discharge Date:??09/12/2022 13:20 Discharge Disposition Discharge Disposition: Home: No Services Discharge Diagnosis Heart transplant status (Z94.1) AICD (automatic cardioverter/defibrillator) present (Z95.810) Dysautonomia (G90.1) Immunosuppressed status (D84.9) Chronic kidney disease stage 3 (N18.30) Diabetes mellitus with PVD; stents; [facility] (E11.51) BMI 33.0-33.9,adult (Z68.33) Pre-syncope (R55) [facility] [place] - [facility] CAD; s/p CABG 1997, [place] w/stent; heart transplant 04/30 _ Discharge Medications Acetaminophen/Butalbital/Caffeine (Fioricet oral capsule)?1?capsule?By [...] Blood Glucose. ??E11.65 Durable Medical Equipment (Pen Camino, 31 G x 8 mm BD Ultra [...] 100 mg oral tablet)?200?Milligram?2?tablet?By Mouth?Daily atbedtime?as needed?Insomnia ?? 72 Hour Antibiotic History Stopped Antibiotics Stop Date/Time Last Administered First Administered ceFAZolin??2 Gm, IV Push Slowly, Once 09/10/2022 17:24 09/10/2022 17:24 09/10/2022 17:24 ?? Durable Medical Equipment Ambulatory devices needed: Walker (09/11/22) ?? Medications Started Apixaban Medications Discontinued Plavix Doses Changed None Allergies Allergies ?(Active and Proposed Allergies Only) lisinopril? (Severity: Unknown severity, Onset: Unknown) PCP Follow-Up/Heads-Up Patient was diagnosed with a left lower extremity DVT,??started on apixaban 10 mg twice a day, willswitch to 5 mg twice a day??on 09/19/2022.?? Plavix was held, patient instructed to speak to his vascular surgeon regarding these medication changes. -Mycophenolate level was 6.0,??attempted to reach[facility] to??discuss dosage,??however was unable to reach, patient discharged on his home dose with strict instructionsto follow-up with them -Please follow-up tacrolimus level -Outpt BMP within 1 week (Rx given to pt) Future Appointments Monday 11:15 AM EDT ?? With: Deandre VIDES, [place] Where: [facility] [address] [place] [address]- Status: Pending Monday 7:30 AM EDT ?? Where: [facility] Status: Pending 2022 10:30 AM EDT ?? With: Dung Chen MD Where: [facility] [address] [place] [id number]- Status: Pending Hospital Course Mr. Thompson is a 71-year-old gentleman with a PMH of diabetes (CGM),??HTN, CKD,??heart transplant (mycophenolate, tacrolimus, prednisone), hyperparathyroidism admitted for a syncopal episode. ??Patient was found to be??orthostatic??with his??blood pressure. Labs showed Labs showed Hb 12.2, K 3.4, Cr 1.6 (baseline 1.1), troponin 107 then 78, mycophenolate level 5. EKG shows sinus rhythm with PACs, noST elevations or depressions. ??Patient was given??some IV fluids. ??Per recommendation from [facility], patient was monitored for 24 hours on a threat monitoring analyst for any arrhythmia.?? Patientwas restarted on his home dose of fludrocortisone.?? By time of discharge she no longer had orthostatic vitals. ??He was no longer dizzy.?? Of note patient was found to have??a left lower extremity DVT that was 7 cm along the peroneal vein.?? This was discovered when he had left lower extremity swelling on second of hospitalization.?? Patient was switched from??aspirin and Plavix to aspirin and apixaban.?? No other medications were changed.?? Patient and his Mai were given??strict discharge instructions to follow-up with??their transplant rolled glass crosscutter at [facility] [place],??and the vascular surgeon??and with [facility]. ? Orthostatic presyncope History consistent with orthostasis/vagal episode given that he had a preceding warm feeling. Orthostatic vitals positive at time of presentation as well as 09/11 24-hour telemetry monitoring, completed without evidence of arrhythmia Recommendations: -Continue fludrocortisone -Adequate hydration and shade when outside? Acute kidney injury on CKD Baseline creatinine 1.1, 1.6 on admission which since downtrended to 1.4 by time of admission. Patient received approximately 500 cc normal saline Recommendations: -Outpatient BMP in 1 week, Rx given to pt ?? Elevated troponin Patient without any chest pain, thought to be likely secondary to demand ischemia. No tachycardia chest pain or shortness of breath to suggest pulmonary embolism. Recommendations: -Monitor clinically ?? LLE Distal DVT 7cm DVT in Peroneal vein noted in LLE US Doppler Recommendations: -Continue Aspirin 81mg -Pt started on apixaban 10mg BID for 7 days and then plan for switch to 5mg BID -Follow up with vascular surgery -Stop Plavix, no current indication for triple therapy? Chronic medical conditions: Status post cardiac transplant at H: Continue home tacrolimus, prednisone,??and mycophenolate. Attempted to reach out to [facility] to discuss dosing as patient did have??slightly elevated mycophenolate levels,??however unable to reach anyone.?? Encourage patient to follow-up very closely with them tomorrow. ?? Type 2 diabetes: Continue home insulin Objective Measurements?? Weight: 102 kg (09/12/22) ?? Vital Signs?? Temperature: 97 DegF (09/12/22 07:37:00) Temperature Route: Temporal (09/12/22 07:37:00) Pulse Rate:??95 bpm??High (09/12/22 07:37:00) Pulse Rate, Lyin bpm (09/12/22 11:06:00) Systolic Blood Pressure, Lyin mm Hg (09/12/22 11:06:00) Diastolic Blood Pressure, Lyin mm Hg (09/12/22 11:06:00) Pulse Rate, Sittin bpm (09/12/22 11:06:00) Systolic Blood Pressure, Sittin mm Hg (09/12/22 11:06:00) Diastolic Blood Pressure, Sittin mm Hg (09/12/22 11:06:00) Pulse Rate, Standin bpm (09/12/22 11:06:00) Systolic Blood Pressure, Standin mm Hg (09/12/22 11:06:00) Diastolic Blood Pressure, Standin mm Hg (09/12/22 11:06:00) Respiratory Rate: 18 br/min (09/12/22 10:37:00) Systolic Blood Pressure: 127 mm Hg (09/12/22 09:36:00) Diastolic Blood Pressure: 78 mm Hg (09/12/22 09:36:00) Blood pressure sites: Arm, right (09/12/22 07:37:00) Mean Arterial Pressure: 94 mm Hg (09/12/22 07:37:00) Pulse Pressure: 49 mm Hg (09/12/22 07:37:00) Oxygen Saturation: 100 % (09/12/22 07:37:00) Mode of Delivery (Oxygen): Room air (09/12/22 07:37:00) Early Warning Score: 5 (09/12/22 11:43:23) ?? Intake/Output? 09/10 12:43 09/12 07:00 09/11 07:00 09/10 07:00 09/09 07:00 ?? 09/12 13:20 09/12 13:20 09/12 06:59 09/11 06:59 09/10 06:59 Intake ? 1440 ?480 ?840 ?120 ?0 Output ?750 ?0 ?750 ?0 ?0 Net Total ?690 ?480 ? 90 ?120 ?0 ? Urine Count ?9 ?2 ?6 ?1 ?0 . Physical Exam General: Well appearing. In no distress Head: NCAT. Scalp without any lesions. Eyes: Melville conjunctiva. Anicteric sclera. Ears: Bilateral pinnae without discharge or lesions. Nose:?? No discharge or congestion. Throat/Mouth: MMM. Oral mucosa was pink and without any lesions. Cardiovascular: Physiologic S1 and S2. No murmurs, rubs or gallops could be auscultated. Respiratory: CTA bilaterally with good inspiratory effort and symmetric chest wall movement. No wheezes, rales, or rhonchi. Abdominal: No scars or lesions noted. Abdomen is flat and non-distended. Positive bowel sounds in all four quadrants. No tenderness to palpation. No rebound or guarding. Vascular: Pulses are 2+ at radial pulses bilaterally. ??Bilateral lower extremity with??chronic??scabs.?? Left lower extremity??is swollen, and erythematous.?? The toes of the left lower extremity are purple.?? No sensation to the toes or feet of the left lower extremity.?? Patient??without abilityto move the left lower extremity toes. ??Right lower extremity with limited sensation to gross touch.?? Able to wiggle right toes. Neurologic: Mental Status is alert and oriented to person, place, time, situation. ? Consultants None Pending Results Tacrolimus Level ordered on 09/12/2022 Patient Education Titles Preventing Deep Vein Thrombosis?? Deep Vein Thrombosis (DVT)?? Apixaban Oral Tablet?? Orthostatic Low Blood Pressure (Hypotension)?? Follow-Up Appointments Added Follow Up ?Time Frame ?Comments Wesley CALLOWAY, Hussein Marino?[facility] Desktop Publishing Associate Gustavo CALLOWAY, Dung?Within one week Patient Instructions You were admitted to [facility] on 09/10??for lightheadedness??and almost passing out.?? While you are here you are found to have orthostatic hypotension which is a form of hypotension orlow blood pressure that occurs??when changing position from sitting to standing.?? For this reason,you are given fluids. While you are in the emergency room you are given 1 dose of antibiotics for concern around cellulitis in your leg however,??it was soon determined that you do not in fact have cellulitis??in your left leg. ??Due to swelling in your left leg however you did receive an ultrasound??which showed??a clot??in one of the veins of your legs, but this clot is not??obstructing blood flow. ??Because of the clot you are??started on a medication called apixaban??which??you will take 10 mg??(2 tablets)??2 times a day for 6 more days??(today??through 09/18/2022)??and then you will take 5 mg??(1 tablet)??twicea day??starting on 09/19/2022.??You are stopped on a medication called clopidogrel or Plavix. Please discuss this with your vascular surgeon.?? You were also treated for a renal injury while you are admitted, for this reason you were??given a??prescription to redraw your labs??in 3 to 4 days which can follow-up with your primary care doctor,Dr. Razo.?? Oftentimes??renal injuries can occur due to dehydration,??and as in your case, thesedo resolve. ?? It is important that you continue to stay hydrated on warm days, do not spend excessive amounts of time??in??hot weather. It is important that you follow-up with your primary care doctor as well as??W cardiac surgery Is important that you continue to follow with vascular surgery??for the peripheral vascular diseasein your legs. ?? Please do not hesitate to get immediate medical attention if you begin to feel ill, have nausea, vomiting, fevers, chest pain, or any further episodes of feeling that you might faint/pass out. Post Discharge Care Activity: Ambulate with assistance ??3 times a day ??unless otherwise specified Wound Care: as managed at home Code Status: ?? Full Resuscitation Condition: good Prognosis: Fair Results Discharge Labs BLOOD COUNT & DIFF WBC 5.1 k/mm3 ()?? 09/12/2022 04:54 RBC 3.75 m/mm3 (Low)?? 09/12/2022 04:54 Hgb 10.5 Gm/dL (Low)?? 09/12/2022 04:54 Hct 32.1 % (Low)?? 09/12/2022 04:54 MCV 85.6 femtoliters ()?? 09/12/2022 04:54 MCH 28.0 pg ()?? 09/12/2022 04:54 MCHC 32.7 g/dL (Low)?? 09/12/2022 04:54 Platelet Count 131 k/mm3 (Low)?? 09/12/2022 04:54 RDW-SD 47.8 femtoliters (High)?? 09/12/2022 04:54 MPV 9.3 femtoliters (Low)?? 09/12/2022 04:54 Nucleated RBC (Automated) 0.0 #/100 WBC'S ()?? 09/12/2022 04:54 Abs. NRBC 0.0 k/mm3 ()?? 09/12/2022 04:54 Abs. Neut 4.9 k/mm3 ()?? 09/11/2022 05:47 Abs. Lymph 0.6 k/mm3 (Low)?? 09/11/2022 05:47 Abs. Chase 0.3 k/mm3 (Low)?? 09/11/2022 05:47 Abs. Eo 0.1 k/mm3 ()?? 09/11/2022 05:47 Abs. Baso 0.0 k/mm3 ()?? 09/11/2022 05:47 Neut % 81.9 % (High)?? 09/11/2022 05:47 Lymph % 9.8 % (Low)?? 09/11/2022 05:47 Chase % 5.7 % ()?? 09/11/2022 05:47 Eos % 1.7 % ()?? 09/11/2022 05:47 Baso % 0.2 % ()?? 09/11/2022 05:47 Imm Gran 0.7 % ()?? 09/11/2022 05:47 Abs. Imm Gran 0.0 k/mm3 ()?? 09/11/2022 05:47 ?? CARDIAC High Sensitivity Troponin (HSTnT) 78 ng/L (Critical)?? 09/10/2022 16:30 ? CHEM GENERAL Sodium 139 mmol/L ()?? 09/12/2022 04:54 Potassium 3.4 mmol/L (Low)?? 09/12/2022 04:54 Chloride 100 mmol/L ()?? 09/12/2022 04:54 Bicarbonate Level 27 mmol/L ()?? 09/12/2022 04:54 Anion Gap 12 ()?? 09/12/2022 04:54 Glucose Level 271 mg/dL (High)?? 09/12/2022 04:54 Glucose, POC 339 mg/dL (High)?? 09/12/2022 11:40 BUN 36 mg/dL (High)?? 09/12/2022 04:54 Creatinine-Blood 1.4 mg/dL (High)?? 09/12/2022 04:54 Estimated GFR Creatinine 52 ML/MIN/1.73 M2 ()?? 09/12/2022 04:54 Calcium 8.6 mg/dL ()?? 09/12/2022 04:54 Phosphorus 3.5 mg/dL ()?? 09/12/2022 04:54 Magnesium 1.7 mg/dL ()?? 09/12/2022 04:54 Protein, Total 6.4 Gm/dL ()?? 09/11/2022 05:47 Albumin 4.1 Gm/dL ()?? 09/11/2022 05:47 AG Ratio 1.8 ()?? 09/11/2022 05:47 Alkaline Phosphatase 74 units/L ()?? 09/11/2022 05:47 AST (SGOT) 15 units/L ()?? 09/11/2022 05:47 ALT (SGPT) 15 units/L ()?? 09/11/2022 05:47 Bilirubin, Total 0.2 mg/dL ()?? 09/11/2022 05:47 ?? HEME OTHER Hold Blue Top SPECIMEN DISCARDED AFTER 4 HOURS. ()?? 09/10/2022 14:01 ? TOXICOLOGY/TDM Tacrolimus Level 9.0 ng/mL ()?? 09/10/2022 14:01 Mycophenolate Level 6.0 ??g/mL (High)?? 09/12/2022 04:54 ?? VIROLOGY COVID-19 by RT-PCR NEGATIVE ()?? 09/10/2022 18:40 ? Microbiology ?? COVID-19 (Novel Coronavirus), Rapid PCR?? Completed?? Source: Nasal Body Site: Nose Collected Dt/Tm: 09/10/2022 13:07 Last Updated Dt/Tm: 09/10/2022 19:44 Imaging(s) ?US Doppler Ext Lower Venous Left ?? 09/11/2022 14:15??by Markel Richmond MD ?IMAGING TECHNIQUE: Ultrasound of the veins from the groin through the calf was performed using grayscale, color, and spectral Doppler ultrasound assessing for complete compressibility andnormal flow characteristics. ?? FINDINGS: ?? Common femoral vein: Patent. No thrombosis. ?? Femoral vein: Patent. No thrombosis. ?? Popliteal vein: Patent. No thrombosis. ?? Gastrocnemius veins: The visualized portions are patent without evidence of thrombosis. ?? Peroneal veins: Nonocclusive thrombus identified in one of 2 peroneal veins. The thrombus measures approximately 7 cm in length. The thrombus is remote from the confluence with the popliteal vein. ?? Posterior tibial veins: The visualized portions are patent without evidence of thrombosis. ?? Contralateral common femoral vein: Patent. No thrombosis. ?? OTHER FINDINGS: None. ?? IMPRESSION: ?? Nonocclusive thrombus identified in one of 2 peroneal veins. 30??minutes spent on discharge ?? Patient seen and discussed with Attending, Dr. Jensen ?? Ganga Escoto MD PGY-1, Internal Medicine-Pediatrics Pager [phone] ?? * Handy WARREN, Hortensia Jaramillo: PERFORM Event Display: Patient Education/Instruction Authored Date: [id number] Inpatient Adult Discharge Instructions [address] [address] Name: REJI THOMPSON : 1950 Visit: 09/10/2022 12:43:00 Current Date: 09/12/2022 16:23 Account: [id number] Inpatient Adult Discharge Instructions We would like [...] and their families. Surveys are administered by [employer] ?? If further treatment with your primary care physician or another doctor is recommended, it is important for you to keep the appointment. Call your primary care physician or return to the Emergency Department immediately if your condition worsens, fails to improve, or new symptoms develop. If you need to find a doctor, you can call [facility] for a referral at [phone] or toll free at [phone] or log in to [email or web address].. ?? You can view and manage your care through the patient portal or by using a health care laurent of your choosing. [facility] is a website that allows you to securely view your medical information including your hospital discharge summary, office visit summaries, medications and follow-up visits. You can also request appointments, renew medications, and request access to your medical information using a health care laurent of your choosing, or just ask a question. You can enroll at [email or web address] or register during your next office visit. You have been discharged from [facility], Patient Care Unit: M7. If you have any questions regarding these instructions after you leave, please call us and we will be happy to assist you. [facility] Your Care Team Attending Physician Camila CALLOWAY, Lior Discharging Providers Tigist CALLOWAY, Ganga Reason for Your Visit Pt became dizzy/had near syncopal event while at granddaughter's [employer] game. Denies SOB, denies chest pain Your Diagnosis Syncope/Near syncope Heart transplant status AICD (automatic cardioverter/defibrillator) present Dysautonomia Immunosuppressed status Chronic kidney disease stage 3 Diabetes mellitus with PVD; stents; [facility] BMI 33.0-33.9,adult Tests Performed Below is a partial list of the tests performed during your hospitalization. You may have had other tests and procedures not included in this list. Please discuss all test results with your provider. Basic Metabolic Panel CBC CBC w/ Differential Comprehensive Metabolic Panel COVID-19 (Novel Coronavirus), Rapid PCR GLUCOSE POC High??Sensitivity??Troponin T HOLD BLUE TUBE Magnesium Level Mycophenolate Level Phosphorus Level TACROLIMUS Doppler Ext Lower Venous Left (US) Primary Care Provider Dung Chen MD Advance Directive . Discharge Vitals Temperature: 97 DegF Weight: 102 kg Pulse Rate:??91 bpm??High ?? Respiratory Rate: 18 br/min ?? Systolic Blood Pressure: 137 mm Hg ?? Diastolic Blood Pressure: 82 mm Hg ?? Oxygen Saturation: 100 % ?? Studies Pending All tests and labs ordered during this hospital stay have been completed unless listed below. Please discuss all pending results with your provider listed above in these instructions. ?? Hold Lavender Tube (BB) What to do next Instructions From Your Doctor You were admitted to [facility] on 09/10??for lightheadedness??and almost passing out.?? While you are here you are found to have orthostatic hypotension which is a form of hypotension orlow blood pressure that occurs??when changing position from sitting to standing.?? For this reason,you are given fluids. While you are in the emergency room you are given 1 dose of antibiotics for concern around cellulitis in your leg however,??it was soon determined that you do not in fact have cellulitis??in your left leg. ??Due to swelling in your left leg however you did receive an ultrasound??which showed??a clot??in one of the veins of your legs, but this clot is not??obstructing blood flow. ??Because of the clot you are??started on a medication called apixaban??which??you will take 10 mg??(2 tablets)??2 times a day for 6 more days??(today??through 09/18/2022)??and then you will take 5 mg??(1 tablet)??twicea day??starting on 09/19/2022.??You are stopped on a medication called clopidogrel or Plavix. Please discuss this with your vascular surgeon.?? You were also treated for a renal injury while you are admitted, for this reason you were??given a??prescription to redraw your labs??in 3 to 4 days which can follow-up with your primary care doctor,Dr. Razo.?? Oftentimes??renal injuries can occur due to dehydration,??and as in your case, thesedo resolve. ?? It is important that you continue to stay hydrated on warm days, do not spend excessive amounts of time??in??hot weather. It is important that you follow-up with your primary care doctor as well as??[facility] cardiac surgery Is important that you continue to follow with vascular surgery??for the peripheral vascular diseasein your legs. ?? Please do not hesitate to get immediate medical attention if you begin to feel ill, have nausea, vomiting, fevers, chest pain, or any further episodes of feeling that you might faint/pass out. Discharge Orders Activity:??Ambulate with assistance 3 times a day unless otherwise specified Wound Care:??as managed at home Code Status:?? Full Resuscitation Condition:??good Prognosis:??Fair Scheduled Follow-Up Appointments Monday 11:15 AM EDT ?? With: Deandre VIDES, [place] Where: [facility] [address] [place] [address]- Status: Pending Monday 7:30 AM EDT ?? Where: [facility] Status: Pending 2022 10:30 AM EDT ?? With: Dung Chen MD Where: [facility] [address] [place] [id number]- Status: Pending You Need to Schedule the Following Appointments Follow Up with??Hussein Olson MD Why: [facility] [employer] [facility] Where: ?? Follow Up with??Dung Chen MD When:??Within Within one week Where: [facility] [address]- Discharge Medications REJI THOMPSON :1950 Visit Date:09/10/2022 Medications: Please continue your medications until treatment is completed or stopped by your provider. Medications not listed below should be discontinued. Discuss any questions related to medications with your provider. What How Much When Why Instructions Next Dose New apixaban (apixaban Starter Pack 5 mg oral tablet) 2 tab(s) Oral Twice a day Please take 10mg twice a day for 6 days (through ) and then take 5mg twice a day starting ?? Pickup at [facility]/pharmacy #[id number] today at 9pm New Miscellaneous Rx (Basic Metabolic Panel) See instructions Chronic kidney disease stage 3 Please send results to Dr. Dung Chen ICD: N18.30 please obtain within 1 week of ?? Printed Prescription N/A Unchanged Acetaminophen/ Butalbital/ Caffeine (Fioricet oral capsule) 1 capsule Oral Every 6 hours as needed for Headache as you need Unchanged Amlodipine (amLODIPine 5 mg oral tablet) 1 tab(s) Oral Daily tomorrow in am Unchanged Aspirin (aspirin 81 mg oral delayed release tablet) 1 tab(s) Oral Daily Duration: 30 Days tomorrow in am Unchanged Cholecalciferol (Vitamin D3 50,000 intl units oral capsule) 1 capsule Oral Every week Duration: 8 week(s) take as your usual schedule Unchanged Duloxetine (duloxetine 20 mg oral enteric coated capsule) 1 capsule Oral Twice a day Today at 9pm Unchanged Durable Medical Equipment (Freestyle Nona Monitor) See instructions Use with Freestyle 14 day Sensor to monitor Blood Glucose. ??E11.65 ?? N/A Unchanged Durable Medical Equipment (Freestyle Nona Sensor) See instructions e11.65, use with freestyle nona 14 day reader for frequent glucose monitoring, change every 14 days, 28 day supply ?? N/A Unchanged Durable Medical Equipment (Pen Camino, 31 G x 8 mm BD Ultra Fine III) See instructions Duration: 90 Days use as directed for Type 2 Diabetes Mellitus for 5 injections per day ?? E11.9 ?? N/A Unchanged Durable Medical Equipment (Pen Camino, 32 G x 4 mm BD Ultra Fine III) N/A Unchanged Fludrocortisone (fludrocortisone 0.1 mg oral tablet) take as your usual schedule Unchanged Fluticasone Nasal (fluticasone 50 mcg/ inh nasal spray) take as your usual schedule Unchanged Gabapentin (gabapentin 300 mg oral capsule) 1 capsule Oral 3 times a day today at bedtime Unchanged insulin degludec (insulin degludec (concentrated) 200 units/ mL subcutaneous solution) See instructions 42 units in the AM and 52 units in the PM 90 days supply ?? today at bedtime Unchanged Insulin Lispro (Humalog Cartridge 100 units/ mL subcutaneous injection) See instructions INSERT CARTRIDGE INTO INPEN DEVICE AND INJECT ??SUBCUTANEOUSLY 16 UNITS 3 ??TIMES DAILY WITH MEALS - ??MAX DAILY DOSE: 48 UNITS ?? today at dinner time Unchanged Miscellaneous Rx (Rx: Physical Therapy) See instructions Rx: Physical Therapy Dx: Frequent falls, deconditioning ?? N/A Unchanged Mycophenolate Sodium (mycophenolic acid 360 mg oral delayed release tablet) 2 tab(s) Oral Twice a day Last dose given at 14:07 today Unchanged Pantoprazole (pantoprazole 40 mg oral delayed release tablet) 1 tab(s) Oral Twice a day today at 9pm Unchanged PredniSONE (predniSONE 5 mg oral tablet) 1 tab(s) Oral Daily tomorrow in am Unchanged Rosuvastatin (rosuvastatin 20 mg oral tablet) 1 tab(s) Oral Daily today at bedtime Unchanged Sucralfate (sucralfate 1 gm oral tablet) 1 tab(s) Oral Twice a day today at dinner time Unchanged Tacrolimus (tacrolimus 1 mg oral capsule) 2.5 capsule Oral Twice a day 3 in the AM & 3 in the Evening ?? today at 7pm Unchanged Trazodone (traZODone 100 mg oral tablet) 2 tab(s) Oral Daily at Bedtime as needed for Insomnia today at bedtime Pharmacy Information [facility]/pharmacy #[id number]: [address] [place], [place] [id number] [phone] ?? What How Much When Comments Stop Taking Clopidogrel (clopidogrel 75 mg oral tablet) 1 tab(s) Oral Daily Test Results Below is a partial list of the most recent Laboratory test results done prior to this discharge. You may have had other tests and procedures not included in this list. Please discuss all test resultswith your provider. Basic Metabolic Panel (09/12/2022) ???Sodium - 139 mmol/L???Potassium - 3.4 mmol/L???Chloride - 100 mmol/L???Bicarbonate Level - 27 mmol/L???Anion Gap - 12???Glucose Level - 271 mg/dL???BUN - 36 mg/dL???Creatinine-Blood - 1.4 mg/dL???Estimated GFR Creatinine - 52 ML/MIN/1.73 M2???Calcium - 8.6 mg/dL CBC (09/12/2022) ???WBC - 5.1 k/mm3???RBC - 3.75 m/mm3???Hgb - 10.5 Gm/dL???Hct - 32.1 %???MCV - 85.6 femtoliters???MCH - 28.0 pg???MCHC - 32.7 g/dL???Platelet Count - 131 k/mm3???RDW-SD - 47.8 femtoliters???MPV - 9.3 femtoliters???Nucleated RBC (Automated) - 0.0 #/100 WBC'S???Abs. NRBC - 0.0 k/mm3 CBC w/ Differential (09/11/2022) ???WBC - 5.9 k/mm3???RBC - 4.15 m/mm3???Hgb - 11.3 Gm/dL???Hct - 35.9 %???MCV - 86.5 femtoliters???MCH - 27.2 pg???MCHC - 31.5 g/dL???Platelet Count - 136 k/mm3???RDW-SD - 48.9 femtoliters???MPV - 9.0 femtoliters???Nucleated RBC (Automated) - 0.0 #/100 WBC'S???Abs. NRBC - 0.0 k/mm3???Abs. Neut - 4.9 k/mm3???Abs. Lymph - 0.6 k/mm3???Abs. Chase - 0.3 k/mm3???Abs. Eo - 0.1 k/mm3???Abs. Baso - 0.0 k/mm3???Neut % - 81.9 %???Lymph % - 9.8 %???Chase % - 5.7 %???Eos % - 1.7 %???Baso % - 0.2 %???Imm Gran - 0.7 %???Abs. Imm Gran - 0.0 k/mm3 Comprehensive Metabolic Panel (09/11/2022) ???Sodium - 141 mmol/L???Potassium - 3.7 mmol/L???Chloride - 100 mmol/L???Bicarbonate Level - 33 mmol/L???Anion Gap - 8???Glucose Level - 196 mg/dL???BUN - 32 mg/dL???Creatinine-Blood - 1.4 mg/dL???Estimated GFR Creatinine - 54 ML/MIN/1.73 M2???Calcium - 8.8 mg/dL???Protein, Total - 6.4 Gm/dL???Albumin - 4.1 Gm/dL???AG Ratio - 1.8???Alkaline Phosphatase - 74 units/L???AST (SGOT) - 15 units/L???ALT (SGPT) - 15 units/L???Bilirubin, Total - 0.2 mg/dL COVID-19 (Novel Coronavirus), Rapid PCR (09/10/2022) ???COVID-19 by RT-PCR - NEGATIVE GLUCOSE POC (09/12/2022) ???Glucose, POC - 339 mg/dL High??Sensitivity??Troponin T (09/10/2022) ???High Sensitivity Troponin (HSTnT) - 78 ng/L HOLD BLUE TUBE (09/10/2022) ???Hold Blue Top - SPECIMEN DISCARDED AFTER 4 HOURS. Magnesium Level (09/12/2022) ???Magnesium - 1.7 mg/dL Mycophenolate Level (09/12/2022) ???Mycophenolate Level - 6.0 ??g/mL Phosphorus Level (09/12/2022) ???Phosphorus - 3.5 mg/dL TACROLIMUS (09/12/2022) ???Tacrolimus Level - 5.4 ng/mL Allergies (NKA means No Known Allergies) lisinopril Problems Active Problems??(46) AICD (automatic cardioverter/defibrillator) present?? BMI 33.0-33.9,adult?? BPH - [facility]?? CAD; s/p CABG 1997, [place] 2006 w/stent; heart transplant 04/30?? CHD?? Chronic kidney disease stage 3?? Colon polyp?? Diabetes mellitus with cataract?? Diabetes mellitus with PVD; stents; [facility]?? DM 2?? Dry eyes?? Dysautonomia?? Dyslipidemia?? Erectile [...] drop?? Leukopenia?? Low back pain?? Microscopic hematuria; [facility]?? Neck pain?? Neuropathy due to diabetes mellitus?? Obese class I?? Obstructive sleep apnea syndrome?? Osteopenia - minimal, on DXA 08/01?? Peripheral neuropathy?? Presbyesophagus?? Pure hypercholesterolemia?? Tremor - Neurology at [facility]?? Type 2 DM with renal manifestations; [facility]?? Unsteady gait?? Education Materials Below is the list of Educational Leaflet Providered with your Discharge Instructions. Amlodipine Oral Tablet?? Possible Causes of Dizziness or Fainting?? Understanding Dizziness, Balance Problems, and Fainting?? Orthostatic Low Blood Pressure (Hypotension)?? Treating Syncope: Helping Your Heart?? Treating Syncope: Prevention?? Complications of Deep Vein Thrombosis?? Zones DVT?? Discharge Instructions for Deep Vein Thrombosis (DVT)?? Preventing Deep Vein Thrombosis?? Deep Vein Thrombosis (DVT)?? Apixaban Oral Tablet?? Orthostatic Low Blood Pressure (Hypotension)?? Valuables and Belongings I fully understand and agree that [facility] accepts no responsibility for all my [...] Valuable and Belonging List: With patient, With witness Possessions released to: no personal devices Date for Pt to Sign Valuables/Belongings: 09/10/22 21:07:00 ?? Other Discharge Information ?? Wound Assessment?? Wound Assessment?? Wound Location I: Leg, left lower Wound Type I: Other: scab Wound I, Present on Admission: Yes Wound Location II: Leg, right lower Wound Type II: Shear Injury Wound II, Present on Admission: Yes Wound Location III: R heel deep open area dry unstageable Wound Type III: Shear Injury Wound III, Present on Admission: Yes Wound Location IV: Left knee Wound Type IV: Shear Injury Wound IV, Length: 2.5 cm Wound IV, Width: 2 cm Wound IV, Present on Admission: Yes Wound Location V: Foot, left Wound Type V: Other: unstageable wound Wound V, Length: 0.9 cm Wound V, Width: 1 cm Wound V, Present on Admission: Yes ? Pulmonary Rehab [...] are strongly encouraged to quit. Please call [facility] [facility] at [phone] or [phone] Driven ([phone]) or log in to [email or web address] for referrals to smoking cessation programs. ?? 531 Suicide & Crisis Lifeline is available 07/11 if you or someone you know needs to find a reason to keep living. By calling 529 you'll be connected to a skilled, trained counselor at a crisis center in your area. INPATIENT DISCHARGE INSTRUCTIONS SIGNATURE PAGE REJI THOMPSON Location:[facility] Registration Date and Time:09/10/2022 12:43 EDT Primary Care Physician: Dung Chen MD, Attending Physician: Lior Jensen MD, I REJI THOMPSON, have received the above patient education materials/instructions and have verbalized understanding. If ambulance or transport services are being used I further acknowledge being givena choice of service. ?? If you need to contact me, please call me at this number: . Patient/Call Center Agent Name: Patient/Call Center Agent Signature: Relationship to Patient: Witness Name/Signature: Date: * Handy WARREN, Hortensia Jaramillo: PERFORM Event Display: Patient Education Leaflets Authored Date: [id number] Amlodipine Oral Tablet ?? 4379-2997 Amlodipine Oral Tablet Brands: [facility] Uses This medicine is used for the following purposes: ??? angina ??? high blood pressure ??? Raynaud's disease ?? Instructions This medicine may be taken with or without food. This medicine will work best if you take it at about the same time every day. Keep the medicine at room temperature. Avoid heat and direct light. It is important that you keep taking [...] about all medicines taken. Include prescription and uhji-skz-hlsyewm medicines, vitamins, and herbal medicines. Speak with your doctor or pharmacist before starting or stopping any medicine. Tell your doctor if symptoms do not get better or if they get worse. Keep all appointments for medical exams and tests while on this medicine. ?? Cautions Tell your doctor and pharmacist [...] know how this medicine will affect you. Please check with your doctor before drinking alcohol while on this medicine. This medicine passes into breast milk. Ask your doctor before . During , this medicine should be used only when clearly needed. Talk to your doctor about the risks and benefits. Do not share this medicine with anyone who has not been prescribed this medicine. ?? Side Effects The following is a list of some common side effects from this medicine. Please speak with your doctor about what you should do if you experience these or other side effects. ??? dizziness ??? swelling of the legs, feet, and hands ??? lack of energy and tiredness ??? feeling of heat or flushing ??? low blood pressure ??? lightheadedness Call your doctor or get medical help right away if you notice any of these more serious side effects: ??? worsening chest pain or crushing feeling ??? fainting ??? fast or irregular heart beats ??? jawpain ??? shortness of breath ??? excessive or unusual sweating A few people may have an allergic reaction to this medicine. Symptoms can include difficulty breathing, skin rash, itching, swelling, or severe dizziness. If you notice any of these symptoms, seek medical help quickly. ?? Extra Please speak with your doctor, nurse, or pharmacist if you have any questions about this medicine. ?? [email or web address] IMPORTANT NOTE: This document tells you briefly how to take your medicine, but it does not tell youall there is to know about it. Your doctor or pharmacist may give you other documents about your medicine. Please talk to them if you have any questions. Always follow their advice. There is a more complete description of this medicine available in Brazilian. Scan this code on your smartphone or tablet or use the web address below. You can also ask your pharmacist for a printout. If you have any questions, please ask your pharmacist. The display and use of this drug information is subject to Terms of Use. Copyright(c) 2022 [employer]. ?? [employer]. All rights reserved. This information is not intended as a substitute for professional medical care. Always follow your healthcare professional's instructions. ?? * Handy WARREN, Hortensia Jaramillo: PERFORM Event Display: Patient Education Leaflets Authored Date: [id number] Possible Causes of Dizziness or Fainting ?? 31734 Possible Causes of Dizziness or Fainting Dizziness and fainting can have many causes. Below are some examples of??possible causes your healthcare provider will look to rule out. Benign paroxysmal positional vertigo (BPPV) BPPV results when calcium crystals inside the inner ear shift into the wrong position. BPPV causes episodes of vertigo, a spinning sensation. Episodes most often happen when you move your head in a certain way. This is more common in people age 65 and older.? Infection or inflammation The semicircular canals of the inner ear are 3 tiny tubes that loop in 3 different directions. As fluid moves in the tubes, signals are sent to the brain that help you maintain balance. These semicircular canals may become infected or inflamed. In this case, they can send the wrong balance signals.This can cause vertigo. ?? M??ni??re disease M??ni??re disease happens when there is too much fluid in the semicircular canals. This can cause vertigo. It also can cause hearing problems and buzzing or ringing in the ears (called tinnitus). Youmay also have a feeling of pressure or fullness in the ear. ?? Syncope Syncope is fainting that happens when the brain doesn???t get enough oxygen-rich blood. It can be caused by low heart rate or low blood pressure. If this occurs as part of a fear or anxiety response,it is called vasovagal syncope. It can also be caused by sitting or standing up too quickly. This is called orthostatic hypotension. Syncope may also be due to a heart valve problem, an abnormal heart rhythm, or other problems with your heart, lungs, or blood vessels. ?? Other causes Other causes include: ??? Problems with the brain. These include a stroke or bleeding (hemorrhage) in the brain. You may need certain tests to rule out these conditions. ??? Medicines. Certain medicines can cause dizziness and even fainting. In some cases, stopping a medicine too quickly can lead to withdrawal symptoms,including dizziness and fainting. ??? Anxiety. Being anxious can lead to breathing changes, such ashyperventilation. These can lead to dizziness and fainting. Other causes for dizziness and fainting also exist.??Talk with your provider for more information. ? Last Reviewed Date: 2021 ?? 5607-3448 [employer]. All rights reserved. This information is not intended as a substitute for professional medical care. Always follow your healthcare professional's instructions. ?? * Handy WARREN, Hortensia Bledsoe.: PERFORM Event Display: Patient Education Leaflets Authored Date: [id number] Understanding Dizziness, Balance Problems, and Fainting ?? 37970 Understanding Dizziness, Balance Problems, and Fainting Balance is a group effort of the eyes, inner ear, joints, and muscles. They each send signals to the brain about body position and head movement. Then the brain uses this information to achieve balance. When the brain receives conflicting signals, or when there is a problem with blood flow, dizziness or fainting can happen. The eyes, inner ear, joints, and muscles send signals to the brain to achieve balance. Vertigo Vertigo is the feeling of spinning, tilting, falling or feeling off balance that may occur with nausea or vomiting. It may happen if the brain receives conflicting balance signals. Vertigo is often caused by a problem in the inner ear. Problems include changes in inner ear structures, infection, swelling, or excess fluid. Sometimes vertigo is due to a brain problem, such as migraine, stroke, or tumor. ?? Disequilibrium Disequilibrium is the feeling of imbalance without a sense of spinning. It may happen if the signalpath between the body and brain is disrupted. There are many causes of disequilibrium, including diabetes, anemia, head injury, and aging. ?? Fainting (Syncope) Syncope is losing consciousness or fainting. The brain needs oxygen-rich blood to function. The heart pumps that blood to the brain. If there is a problem with the heart, blood flow (such as low blood pressure),??or blood vessels, you may faint. Fainting is most often due to prolonged standing, straining to pass urine or stool, , standing up suddenly, use of certain medicines, and strong emotions (such as pain or fear). Sometimes, the cause can't be found. ?? Last Reviewed Date: 2021 ?? [employer] All rights reserved. This information is not intended as a substitute for professional medical care. Always follow your healthcare professional's instructions. ?? Radiology * [facility] , CIS S: TRANSCRIBE Markel Richmond MD: VERIFY Event Display: Result: Authored Date: [id number] US Doppler Ext Lower Venous Left Reason: Erythema; Clinical Question(s): Occlusion COMPARISON: None IMAGING TECHNIQUE: Ultrasound of the veins from the groin through the calf was performed using grayscale, color, and spectral Doppler ultrasound assessing for complete compressibility and normal flowcharacteristics. FINDINGS: Common femoral vein: Patent. No thrombosis. Femoral vein: Patent. No thrombosis. Popliteal vein: Patent. No thrombosis. Gastrocnemius veins: The visualized portions are patent without evidence of thrombosis. Peroneal veins: Nonocclusive thrombus identified in one of 2 peroneal veins. The thrombus measures approximately 7 cm in length. The thrombus is remote from the confluence with the popliteal vein. Posterior tibial veins: The visualized portions are patent without evidence of thrombosis. Contralateral common femoral vein: Patent. No thrombosis. OTHER FINDINGS: None. IMPRESSION: Nonocclusive thrombus identified in one of 2 peroneal veins. An actionable message (Nobles) has been communicated via the [employer]itant system on 09/11/2022 4:03 PM, Message ID [id number]. WSN: [id number] Ordering Physician: Elo Addison Dictated By: Markel Richmond MD Dictated Date/Time: 09/11/22 4:03 pm Reviewed By: Markel Richmond MD Signed By: Markel Richmond MD Signed Date/Time: 09/11/22 4:03 pm Transcribed By: MAVIS Transcribed Date/Time: 09/11/22 4:00 pm Patient Care team information Care Team Personnel Name: Siri Franklin Position: [facility] RN Member Role: Primary Care Nurse Name: Nenita Song Position: [facility] RN Supv Member Role: Primary Care Nurse Name: Najma Michael RN Position: [facility] RN Member Role: Primary Care Nurse Name: Aleja EMBLEM MAKERMallory Position: Reference Physician Member Role: Primary Care Nurse Address: Address: [address] [place] [id number] [place] Name: Scarlet Rosenthal RN Position: [facility] SN RN Member Role: Primary Care Nurse Name: Dung Chen MD Position: [facility] Physician - Primary Care Member Role: PCP Address: Address: [address] [address]- Name: Heydi Oviedo RN Position: [facility] Hospital Laser Cutter Member Role: Primary Care Nurse Name: Sandra Cat Position: [facility] Outreach Member Role: Lifetime Consulting Physician Name: Nicki Garcia RN Position: [facility] RN Member Role: Primary Care Nurse Name: Luis Peters MD Position: [facility] Renal MD Member Role: Lifetime Consulting Physician Address: Address: [address] [facility], [place] [address]- Name: Zulma Martinez MD Position: [facility] Cardiology MD Member Role: Lifetime Consulting Physician Address: Address: [address] [place] [address]- [place] Name: Evelyn Jean-Baptiste RN Position: [facility] RN Member Role: Primary Care Nurse Name: Hilda Mcdonald RN Position: [facility] RN Member Role: Primary Care Nurse Name: Lissa Millard MD Position: [facility] ED Medicine MD Member Role: ED Attending Physician Address: Address: [address] [place] [address] [place] [address]- Name: Diann Barrios Position: [facility] ED RN W/OE and Tasks Member Role: Patient Care Provider Name: Kenton Singer Position: [facility] ED TA [facility] Name: Humaira García MD Position: [facility] Resident Member Role: ED Resident Address: Address: [address] [place] [address]- Care Team Related Persons Name: LUCIA THOMPSON Address: home [address] [place] [address]
--- OUTSIDE RECORDS SUMMARY | 2023-05-15 09:00 | XMS_ITS | Continuity of Care Document ---
Author Name Unknown Organization [facility] Address [address] [place] [address]- Care Team Providers Care Electrical Instrument Maker Name Role Phone Dung Chen MD Primary Care Physician Encounter [facility] Date(s): 06/17/22 - 07/17/22 [facility] [address] [place], [place] [address] Attending Physician: Scott Mcintosh Admitting Physician: Admtr, Scott Referring Physician: Admtr, Scott Referring Physician: María Pacheco Allergies, Adverse Reactions, Alerts Substance Reaction Severity Status lisinopril Active Immunizations Given and Recorded Vaccine Date Status Refusal Reason SARS-CoV-2 mRNA (jrqykcv-phoc-lyksp) vax 07/18/21 Recorded SARS-CoV-2 (COVID-19) mRNA BNT-162b2 [...] he received this seasons flu vaccine at [place]. 3Admin Note: Patient states he received pneumovax in 2004 at [place]. Medications amLODIPine 5 mg oral tablet 5 mg, 1, tablet, By Mouth, Daily, # 90 tablet, Refills 1, Tot. Refills 1, Maintenance, 05/12/22 11:54:00 EST, Route to Pharmacy Electronically, [facility] ([facility] ), Partial fill upon patient request if the prescription is for a... Start Date: 05/12/22 Status: Ordered aspirin 81 mg oral delayed release tablet 81 mg, 1, tablet, By Mouth, Daily, # 30 tablet, Refills 0, Tot. Refills 0, Maintenance, 06/08/21 11:45:00 EST, Route to Pharmacy Electronically, [facility]/pharmacy #[id number], Partial fill upon patient request if the [...] Maintenance, 04/12/22 19:33:00 EST, Capsule, [facility]/pharmacy #[id number], Partial fill upon patient request if [...] 02/03/22 9:07:00 EDT, Route to Pharmacy Electronically, [facility] ([facility]), 175.3, cm, 01/03/22 13:47:00 EDT, [...] Maintenance, 05/24/22 12:19:00 EST, [facility] ([facility] ), Partial fill upon patient [...] Weight Start Date: 04/03/22 Status: Ordered Pen [place], 31 G x 8 mm BD Ultra Fine III See Instructions, # 300 each, Refills 6, Tot. Refills 6, Maintenance, use as directed for Type 2 Diabetes Mellitus for 5 injections per day E11.9, 12/09/21 9:52:00 EDT, Supply, 175.3, cm, 12/06/21 7:36:00 EDT, Height, 95.3, kg, 12/06/21 7:36:00 EDT... Start Date: 12/09/21 Stop Date: 08/31/23 Status: Ordered Pen [place], 32 G x 4 mm BD Ultra [...] 05/12/22 11:54:00 EST, Route to Pharmacy Electronically, [facility] ([facility] ), 175, cm, 05/12/22 11:49:00 EST, H... Start Date: 05/12/22 Status: Ordered Vitamin D3 50,000 intl units oral capsule 1 capsule = 1,250 mcg, By Mouth, Every week, # 8 capsule, 0 Refills, Maintenance, 06/08/22 12:19:00EST, Capsule, [facility]/pharmacy #[id number], Partial fill upon patient request if [...] Confirmed Active Diabetes mellitus with PVD; stents; [facility] Confirmed Active Diabetes mellitus with [...] back pain Confirmed 06/15/15 Active Microscopic hematuria; [facility] Confirmed Active Neck pain [...] Confirmed 06/21/05 Active Tremor - Neurology at [facility] Confirmed 02/07/18 Active Type 2 DM with renal manifestations; [facility] Confirmed 05/04/16 Active 1EF 20-25% prior to transplant Social History Social History Type Response Smoking Status Former smoker, quit more than 30 days ago entered on: 06/01/21 Sex Note * Event Display: MRI Shoulder, Non- Authored Date: * Event Display: Ultrasound Lower Extremity, Non- Authored Date: * Event Display: Cardiology Office Note, Non- Authored Date: * Event Display: Non Lab Results Authored Date: * Event Display: X-Ray Chest, Non- BH Authored Date: * Event Display: IR Special Procedures, Non-BH Authored Date: * Event Display: Non BH Lab Results Authored Date: * Event Display: IR Special Procedures, Non-BH Authored Date: * Event Display: Cardiology Office Note, Non-BH Authored Date: * Event Display: X-Ray Chest, Non- BH Authored Date: * Event Display: X-Ray Spine, Non- BH Authored Date: * Event Display: Cardiology Office Note, Non-BH Authored Date: * Event Display: MRI Hip/Groin, Non- BH Authored Date: * Event Display: EKG Non BH Authored Date: * Event Display: MRI Head, Non- BH Authored Date: * Event Display: MRI Spine, Non- BH Authored Date: * Event Display: CT Scan Head, Non- BH Authored Date: * Event Display: MRI Shoulder, Non- BH Authored Date: Patient Care team information Care Team Personnel Name: Nenita Song Position: [facility] RN Supv Member Role: Primary Care Nurse Name: Najma Michael RN Position: [facility] RN Member Role: Primary Care Nurse Name: Mallory Masterson NP Position: Reference Physician Member Role: Primary Care Nurse Address: Address: [address] [place] [address]- [place] Name: Scarlet Rosenthal RN Position: [facility] RN Member Role: Primary Care Nurse Name: Dung Chen MD Position: [facility] Primary Care Physician Member Role: PCP Address: Address: [address] [place] [address]- [place] Name: Heydi Oviedo RN Position: [facility] Hospital Lead Fire Protection Engineer Member Role: Primary Care Nurse Name: Sandra Cat Position: [facility] Outreach Member Role: Lifetime Consulting Physician Name: Luis Peters MD Position: [facility] Renal MD Member Role: Lifetime Consulting Physician Address: Address: [address] [facility] [place] [address]- Name: Zulma Martinez MD Position: [facility] Cardiology MD Member Role: Lifetime Consulting Physician Address: Address: [address] [place] [address]- Name: Evelyn Jean-Baptiste RN Position: [facility] RN Member Role: Primary Care Nurse Name: Hilda Mcdonald RN Position: [facility] RN Member Role: Primary Care Nurse Care Team Related Persons Name: LUCIA BATEMAN Address: home [address] [place] [address]
--- OUTSIDE RECORDS SUMMARY | 2023-05-15 09:00 | XMS_ITS | Continuity of Care Document ---
Author Name Unknown Organization [facility] Address [address] [place] [address]- Care Team Providers Care Special Educator Name Role Phone Dung Chen MD Primary Care Physician [phone] Encounter [facility] Date(s): 03/31/21 - 04/30/21 [facility] [address] [place], [place] [address] Attending Physician: AdmScott simmons Admitting Physician: AdmtrScott [...] he received this seasons flu vaccine at [place]. 3Admin Note: Patient states he received pneumovax in 2004 at [place]. Medications aspirin 81 mg oral tablet 1 tablet = 81 mg, By Mouth, Daily, # 30 tablet, 0 Refills, Maintenance, 04/07/17 12:54:17, Tablet Start Date: 04/07/17 Status: Ordered Ativan 1 mg oral tablet See Instructions, 1 tablet By Mouth 30 minutes before MRI. May repeat once at time of test., # 2 tablet, 0 Refills, Maintenance, 08/17/20 17:02:00 EDT, [facility]/pharmacy #[id number], Partial fill upon patient request if the [...] Refills, Maintenance, 06/09/19 9:51:00 EST, EC Capsule, [facility]/pharmacy #[id number], 175, cm, 12/05/18 [...] 3, 04/13/21 9:50:00 EST,Route to Pharmacy Electronically, [facility]/pharmacy #[id number], 176, cm, 03/30/21 10:45:00 EST, Height, 94.72, kg, 10/09/19 14:08:00 EDT, Dry Weight Start Date: 04/13/21 Status: Ordered HumaLOG Cartridge 100 units/mL injectable solution See Instructions, Use 3 times daily before meals. E11.65.; for use with InPen. 90-day supply., # 90mL, 3 Refills, Maintenance, 04/15/21 19:46:00 EST, Solution, [facility], Humalog [facility]: [id number] (cartridges), 176, cm, 03/30/21 10:45:00 E... Start Date: 04/15/21 Status: Ordered In Pen- Humalog, Blue In Pen- Humalog, Blue, See Instructions, # 1 each, Refills 1, Tot. Refills 1, Maintenance, Use to administer Humalog 3 times daily before meals. E11.65., 04/15/21 19:48:00 EST, Humalog Blue: [id number], Supply, 176, cm, 03/30/21 10:45:00 EST, Height... [...] Compound Start Date: 10/15/18 Status: Ordered Pen [place], 31 G x 5 mm BD Ultra Fine III See Instructions, # 120 each, Refills 6, Tot. Refills 6, Maintenance, injects 4 times a day E11.65,08/24/20 9:11:00 EDT, fax [phone], Compound, 176, cm, 08/17/20 16:06:00 EDT, Height, 94.72, kg, 10/09/19 14:08:00 EDT, Dry Weight Start Date: 08/24/20 Status: Ordered Plavix 75 mg oral tablet 75 mg, 1, tablet, By Mouth, Daily, # 90 tablet, Refills 3, Tot. Refills 3, Maintenance, 01/28/20 14:36:00 EDT, Route to Pharmacy Electronically, [facility]/pharmacy #[id number], 176, cm, 01/06/20 [...] 05/27/19 16:08:00 EST, Route to Pharmacy Electronically, [facility]/pharmacy #[id number], 175, cm, 12/05/18 [...]
--- OUTSIDE RECORDS SUMMARY | 2023-05-15 09:00 | XMS_ITS | Continuity of Care Document ---
Author Name Unknown Organization [facility] Address [address] [place] [address]- Care Team Providers Care Rough And Truing Machine Operator Name Role Phone Dung Chen MD Primary Care Physician [phone] Encounter [facility] Date(s): 12/08/22 - 12/15/22 [facility] [address] [place] [address]- Encounter Diagnosis Hypertension(Discharge Diagnosis) - 12/08/22 Back pain(Discharge Diagnosis) - 12/08/22 Heart transplant status(Discharge Diagnosis) - 12/08/22 Diabetes mellitus with cataract(Discharge Diagnosis) - 12/08/22 Severe obesity (BMI 35.0-39.9) with comorbidity(Discharge Diagnosis) - 12/08/22 Type 2 DM with renal manifestations; [facility](Discharge Diagnosis) - 12/08/22 Attending Physician: Dung Chen MD Allergies, Adverse Reactions, Alerts Substance Reaction Severity Status lisinopril Active Immunizations Given and Recorded Vaccine Date Status Refusal Reason tetanus/diphtheria/pertussis, acel(Tdap) 1 12/08/22 Given tetanus/diphtheria/pertussis, acel(Tdap) 03/27/12 Recorded pneumococcal 20-valent conjugate vaccine 2 12/08/22 Given [id number] 12y+ bivalent booster vax 04/15/22 Recorded influenza [...] vaccine, inactivated 03/07/06 Quinn rded SARS-CoV-2 mRNA ([id number]-sugcy) vax 07/18/21 Recorded SARS-CoV-2 (COVID-19) mRNA BNT-162b2 [...] [facility] [id number] 2Result Comment: [facility] [id number] 3Result Comment: Lot # [id number] Exp. #) SEP 23 4Admin Note: Pt states he received this seasons flu vaccine at [place]. 5Admin Note: Patient states he received pneumovax in 2004 at [place]. Medications amLODIPine 10 mg oral tablet 10 mg, 1, tablet, By Mouth, Daily, # 90 tablet, Refills 3, Tot. Refills 3, Maintenance, 11/03/22 11:30:00 EDT, Route to Pharmacy Electronically, [facility] ([facility] ), Partial fill upon patient request if the prescription is for... Start Date: 11/03/22 Status: Ordered aspirin 81 mg oral delayed release tablet 81 mg, 1, tablet, By Mouth, Daily, # 30 tablet, Refills 0, Tot. Refills 0, Maintenance, 06/08/21 11:45:00 EST, Route to Pharmacy Electronically, [facility]/pharmacy #[id number], Partial fill upon patient request [...] Date: 09/25/21 Status: Ordered Freestyle [place] 2 [place] Freestyle [place], See Instructions, # 1 each, Refills 0, [...] Maintenance, 08/23/22 12:58:00 EDT, [facility] ([facility]), 176, cm... Start Date: 08/23/22 Status: Ordered insulin degludec (concentrated) 200 units/mL subcutaneous solution See Instructions, 30 units in the AM and 30 units in the PM 30 days supply, # 75 mL, 3 Refills, Maintenance, 10/15/22 10:03:00 EDT, [facility], Partial fill upon patient [...] Weight Start Date: 08/17/22 Status: Ordered Pen [place], 31 G x 8 mm BD Ultra Fine III See Instructions, # 300 each, Refills 6, Tot. Refills 6, Maintenance, use as directed for Type 2 Diabetes Mellitus for 5 injections per day E11.9, 12/09/21 9:52:00 EDT, Supply, 175.3, cm, 12/06/21 7:36:00 EDT, Height, 95.3, kg, 12/06/21 7:36:00 EDT... Start Date: 12/09/21 Stop Date: 08/31/23 Status: Ordered Pen [place], 32 G x 4 mm BD Ultra [...] Route to Pharmacy Electronically, [facility] ([facility]), 173, cm, 10/12/22 19:31:00 EDT, [...] r) present Confirmed 06/21/05 Active BPH - [facility] Confirmed 03/14/21 Active Chronic kidney disease stage 3 Confirmed 05/17/11 Active CAD; s/p CABG 1997, [place] 2006 w/stent; heart transplant 04/30 Confirmed Active DVT, lower extremity Confirmed Active Diabetes mellitus with PVD; stents; [facility] Confirmed Active Diabetes [...] AC x3mo Confirmed 05/13/13 Active Hyperparathyroidism Confirmed 2/21/22 Active Hypertension Confirmed Active Immunosuppressed status Confirmed Active Insomnia Confirmed 07/17/19 Active Ischemic cardiomyopathy Confirmed Active Left foot drop Confirmed 08/25/14 Active Leukopenia Confirmed 07/10/21 Active Low back pain Confirmed 06/15/15 Active Microscopic hematuria; [facility] Confirmed Active Neck pain Confirmed 08/29/19 [...] Confirmed Active Tremor - Neurology at [facility] Confirmed 02/07/18 Active Type 2 DM with renal manifestations; [facility] Confirmed 05/04/16 Active 1EF 20-25% prior to transplant Diagnosis Diagnosis Type Effective Dates Health Status Clinical Service Informant Hypertension Discharge Diagnosis 12/08/22 Back pain Discharge Diagnosis 12/08/22 Heart transplant status Discharge Diagnosis 12/08/22 Diabetes mellitus with cataract Discharge Diagnosis 12/08/22 Severe obesity (BMI 35.0-39.9) with comorbidity Discharge Diagnosis 12/08/22 Type 2 DM with renal manifestations; [facility] Discharge Diagnosis 12/08/22 Vital Signs Most recent to oldest [Reference Range]: 1 2 Height 173 cm (12/08/22 10:52 AM) 173 cm (12/08/22 10:48 AM) Weight 105.1 kg (12/08/22 10:48 AM) Oxygen Saturation [94-100 %] 100 % (12/08/22 10:48 AM) Pulse Rate [55-90 bpm] 95 bpm *H* (12/08/22 10:48 AM) Body Mass Index [18.5-24.99 kg/m2] 35.12 kg/m2 *>HHI* (12/08/22 10:48 AM) Blood Pressure [90-138/55-84 mm Hg] 150/ 88mm Hg *H* (12/08/22 10:52 AM) 154/90mm Hg *H* (12/08/22 10:48 AM) Blood pressure sites Arm, right (12/08/22 10:52 AM) Arm, right (12/08/22 10:48 AM) Social History Social History Type Response Smoking Status Former smoker, quit more than 30 days ago entered on: 10/24/22 Sex Note * [place] koch: PERFORM, SIGN, VERIFY Event Display: Patient Education/Instruction Authored Date: [id number] [facility] *[facility] Adult [facility] Clinical Summary Name REJI BATEMAN Age 72 Years 1950 PCP Gustavo CALLOWAY, Dung PCP Visit Date 12/08/2022 10:23:00 Additional Instructions: Scheduled Appointments?? Future Appointments ?Diabetic??[facility] ?Phone:??--?Fax:??-- ?Appt. Date:??12/22/2022?2:00 PM ?Scheduled Provider:??Herb RN, July ?*[facility] ?Phone:??--?Fax:??-- ?Appt. Date:??01/09/2023?10:00 AM ?Scheduled Provider:??PVR 2 ?*[facility]??[address] ?Phone:??--?Fax:??-- ?Appt. Date:??01/09/2023?10:30 AM ?Scheduled Provider:??Ultrasound Room 3 [facility] ?*[facility],??[place],??[address] ?Phone:??--?Fax:??-- ?Appt. Date:??01/12/2023?3:00 PM ?Scheduled Provider:??Agapito VIDES , Pooja B ?*[facility] ?[address]??[place],??[place],??[address] ?Phone:??--?Fax:??-- ?Appt. Date:??01/16/2023?7:45 AM ?Scheduled Provider:??Carlos Alberto Stanford MD Follow-Up Instructions ?? Diagnosis Medications: Please continue your medications until treatment is completed or stopped by your provider. Discuss any questions related to medications with your provider. New Medications [facility] ([facility]), [address] [phone], [phone] dulaglutide (Trulicity Pen 0.75 mg/0.5 mL subcutaneous solution) 0.5 Milliliter Subcutaneous Injection every week. rotate injection sites. Refills: 0. Next Dose: Medications to Continue Taking That Have Changed These medications were not printed or sent to your pharmacy - insulin degludec (insulin degludec (concentrated) 200 units/mL subcutaneous solution) 30 units inthe AM and 30 units in the PM 30 days supply. Refills: 3. Next Dose: Medications to Continue with No [...] Dose: Durable Medical Equipment (Freestyle [place] 2 [place]) Use to monitor blood glucose, scan sensor [...] 13. Next Dose: Durable Medical Equipment (Pen [place], 31 G x 8 mm BD Ultra Fine III) use as directed for Type 2 Diabetes Mellitus for 5 injections per day E11.9. Refills: 6. Next Dose: Durable Medical Equipment (Pen [place], 32 G x 4 mm BD Ultra Fine III) Next Dose: Fludrocortisone (fludrocortisone 0.1 mg oral tablet) Next Dose: Fluticasone Nasal (fluticasone 50 mcg/inh nasal spray) Next Dose: Gabapentin (gabapentin 600 mg oral tablet) 1 tab(s) Oral 3 times a day. Next Dose: Insulin Lispro (Humalog Cartridge 100 [...] NEEDED FOR INSOMNIA. Refills: 3. Next Dose: No Longer Take the Following Medications Acetaminophen/Butalbital/Caffeine (Fioricet oral capsule) 1 capsule Oral every 6 hours as needed Headache. Refills: 0. apixaban (apixaban Starter Pack 5 mg oral tablet) 10 Milligram Oral twice a day. first dose on 10/15 at 2100. Refills: 0. Miscellaneous Rx (Basic Metabolic Panel) Please send results to Dr. Dung Chen ICD: N18.30 please obtain within 1 week of 09/12/22. Refills: 0. Miscellaneous Rx (Rx: Physical Therapy) Rx: Physical Therapy Dx: Frequent falls, deconditioning. Refills: 0. Allergy Info:?? lisinopril Medications Given This Visit Future Orders ?No future orders Vital Signs Height 173 cm Weight 105.1 kg BMI 35.12 kg/m2 Blood Pressure 150 mm Hg/88 mm Hg Temperature Pulse Rate 95 bpm Respiratory Rate 02 Sat Mode of Delivery 100 %/ You can now view a summary of your hospital visit from the comfort of your home through a free online portal called [email or web address]. [email or web address] is a website that allows you to securely view your medical information including discharge summary, medications and follow-up visits. ??You can alsosend a secure electronic message to your doctor???s office to request appointments, renew medications or just ask a question. You can enroll at [email or web address] or register during your next office visit. [...] primary care provider, you may find a [facility] provider by calling [facility] [employer] at [phone]. For information about the plan of care [...] Team Personnel Name: Nenita Song Position: [facility] RN Supv Member Role: Primary Care Nurse Name: Sherice Mariscal RN Position: [facility] RN Member Role: Primary Care Nurse Name: Najma Michael RN Position: [facility] RN Member Role: Primary Care Nurse Name: Mallory Masterson NP Position: Reference Physician Member Role: Primary Care Nurse Address: Address: [address] [place] [address]- Name: Scarlet Rosenthal RN Position: [facility] SN RN Member Role: Primary Care Nurse Name: Dung Chen MD Position: [facility] Physician - Primary Care Member Role: PCP Address: Address: [address] [place] [address]- Name: Heydi Oviedo RN Position: [facility] Hospital Car Body Designer Member Role: Primary Care Nurse Name: Sandra Cat Position: [facility] Outreach Member Role: Lifetime Consulting Physician Name: Nicki Garcia RN Position: [facility] RN Member Role: Primary Care Nurse Name: Vane Davalos RN Position: [facility] RN Member Role: Primary Care Nurse Name: Belnida Stevenson RN Position: [facility] SN RN Member Role: Primary Care Nurse Name: Luis Peters MD Position: [facility] Renal MD Member Role: Lifetime Consulting Physician Address: Address: [address] [place] [address] [address] [facility], [place] [address]- Name: Zulma Martinez MD Position: [facility] Cardiology MD Member Role: Lifetime Consulting Physician Address: Address: [address] [place] [address]- Name: Evelyn Jean-Baptiste RN Position: S RN Member Role: Primary Care Nurse Name: Hilda Mcdonald RN Position: S RN Member Role: Primary Care Nurse Care Team Related Persons Name: LUCIA BATEMAN Address: home [address] [place] [address]
--- OUTSIDE RECORDS SUMMARY | 2023-05-15 09:00 | XMS_ITS | Continuity of Care Document ---
Author Name Unknown Organization [facility] [place] Address [address] [place] [address]- Care Team Providers Care Traffic Engineer Name Role Phone Dung Chen MD Primary Care Physician Encounter [facility] Date(s): 09/25/20 - 10/25/20 [facility] [place] [address], [place] [address] Allergies, Adverse Reactions, Alerts Substance [...] he received this seasons flu vaccine at [place]. 3Admin Note: Patient states he received pneumovax in 2004 at [place]. Medications aspirin 81 mg oral tablet 1 tablet = 81 mg, By Mouth, Daily, # 30 tablet, 0 Refills, Maintenance, 04/07/17 12:54:17, Tablet Start Date: 04/07/17 Status: Ordered Ativan 1 mg oral tablet See Instructions, 1 tablet By Mouth 30 minutes before MRI. May repeat once at time of test., # 2 tablet, 0 Refills, Maintenance, 08/17/20 17:02:00 EDT, [facility]/pharmacy #[id number], Partial fill upon patient request if the [...] 06/09/19 9:51:00 EST, EC Capsule, [facility]/pharmacy #[id number], 175, cm, [...] 10:59:00 EST, Route to Pharmacy Electronically, [facility]/pharmacy #[id number], Partial fill [...] Compound Start Date: 10/15/18 Status: Ordered Pen [place], 31 G x 5 mm BD Ultra Fine III See Instructions, # 120 each, Refills 6, Tot. Refills 6, Maintenance, injects 4 times a day E11.65,08/24/20 9:11:00 EDT, fax [phone], Compound, 176, cm, 08/17/20 16:06:00 EDT, Height, 94.72, kg, 10/09/19 14:08:00 EDT, Dry Weight Start Date: 08/24/20 Status: Ordered Plavix 75 mg oral tablet 75 mg, 1, tablet, By Mouth, Daily, # 90 tablet, Refills 3, Tot. Refills 3, Maintenance, 01/28/20 14:36:00 EDT, Route to Pharmacy Electronically, [facility]/pharmacy #[id number], 176, cm, 01/06/20 19:56:00 [...] EST, Route to Pharmacy Electronically, [facility]/pharmacy #[id number], 175, cm, [...]
--- OUTSIDE RECORDS SUMMARY | 2023-05-15 09:00 | XMS_ITS | Continuity of Care Document ---
Author Name Unknown Organization [facility] Address [address] [place] [address]- Care Team Providers Care Hide Mill Worker Name Role Phone Dung Chen MD Primary Care Physician Encounter [facility] Date(s): 11/07/22 - 11/14/22 [facility] [address] [place], [place] [address] Attending Physician: Vitaliy Phelps MD Admitting Physician: Vitaliy Phelps MD Allergies, Adverse Reactions, Alerts Substance Reaction Severity Status lisinopril Active Immunizations Given and Recorded Vaccine Date Status Refusal Reason SARS-CoV-2 mRNA ([id number]-[id number]-ditfb) vax 07/18/21 Recorded SARS-CoV-2 (COVID-19) mRNA BNT-162b2 [...] he received this seasons flu vaccine at [place]. 3Admin Note: Patient states he received pneumovax in 2004 at [place]. Medications amLODIPine 10 mg oral tablet 10 mg, 1, tablet, By Mouth, Daily, # 90 tablet, Refills 3, Tot. Refills 3, Maintenance, 11/03/22 11:30:00 EDT, Route to Pharmacy Electronically, [facility] Partial fill upon patient request if the prescription is for... Start Date: 11/03/22 Status: Ordered apixaban Starter Pack 5 mg oral tablet = 10 mg, By Mouth, 2 times a day, first dose on 10/15 at 2100, # 1 pack/packet, 0 Refills, Maintenance, 10/15/22 10:04:00 EDT, Tablet, [facility], Partial fill upon patient request if theprescription is for a schedule II opioid drug., 173... Start Date: 10/15/22 Status: Ordered aspirin 81 mg oral delayed release tablet 81 mg, 1, tablet, By Mouth, Daily, # 30 tablet, Refills 0, Tot. Refills 0, Maintenance, 06/08/21 11:45:00 EST, Route to Pharmacy Electronically, [facility]/pharmacy #[id number], Partial fill upon patient request if the [...] 0 Refills, Maintenance, 04/12/22 19:33:00 EST, Capsule, [facility]/pharmacy #[id number], Partial fill upon [...] Date: 09/25/21 Status: Ordered Freestyle Nona 2 Booker Freestyle Nona 2 Booker, See Instructions, # 1 each, Refills 0, [...] Maintenance, 08/23/22 12:58:00 EDT, [facility] ([facility]), 176, cm... Start Date: 08/23/22 Status: Ordered insulin degludec (concentrated) 200 units/mL subcutaneous solution See Instructions, 20 units in the AM and 30 units in the PM 30 days supply, # 75 mL, 3 Refills, Maintenance, 10/15/22 10:03:00 EDT, [facility], Partial fill upon patient request [...] Weight Start Date: 08/17/22 Status: Ordered Pen Mann[place], 31 G x 8 mm BD Ultra Fine III See Instructions, # 300 each, Refills 6, Tot. Refills 6, Maintenance, use as directed for Type 2 Diabetes Mellitus for 5 injections per day E11.9, 12/09/21 9:52:00 EDT, Supply, 175.3, cm, 12/06/21 7:36:00 EDT, Height, 95.3, kg, 12/06/21 7:36:00 EDT... Start Date: 12/09/21 Stop Date: 08/31/23 Status: Ordered Pen Manns Choice, 32 G x 4 mm BD Ultra [...] Route to Pharmacy Electronically, [facility] ([facility]), 173, cm, 10/12/22 19:31:00 EDT, [...] present Confirmed 06/21/05 Active BPH - [facility] Confirmed 03/14/21 Active BMI 33.0-33.9,adult Confirmed Active Chronic kidney disease stage 3 Confirmed 05/17/11 Active CAD; s/p CABG 1997, [place] 2006 w/stent; heart transplant 04/30 Confirmed Active DVT, lower extremity Confirmed Active Diabetes mellitus with PVD; stents; [facility] [place] [facility] Confirmed Active Diabetes mellitus with [...] pain Confirmed 06/15/15 Active Microscopic hematuria; [facility] Confirmed Active Neck pain Confirmed [...] Confirmed 06/21/05 Active Tremor - Neurology at [facility] Confirmed 02/07/18 Active Type 2 DM with renal manifestations; [facility] Confirmed 05/04/16 Active 1EF 20-25% prior to transplant Vital Signs Most recent to oldest [Reference Range]: 1 Height 173 cm (11/07/22 2:22 PM) Oxygen Saturation [94-100 %] 97 % (11/07/22 2:22 PM) Pulse Rate [55-90 bpm] 94 bpm *H* (11/07/22 2:22 PM) Blood Pressure [90-138/55-84 mm Hg] 110/ 70mm Hg (11/07/22 2:22 PM) Mode of Delivery (Oxygen) Room air (11/07/22 2:22 PM) Blood pressure sites Leg, right (11/07/22 2:22 PM) Dry Weight 104.5 kg (11/07/22 2:22 PM) Dry Weight Obtained Via Patient/family s tated (11/07/22 2:22 PM) Social History Social History Type Response Smoking Status Former smoker, quit more than 30 days ago entered on: 10/24/22 Sex Note * Alicia Carrera: PERFORM, SIGN, VERIFY Event Display: Patient Education/Instruction Authored Date: [id number] [facility] [address] Clinical Summary Name REJI BATEMAN Age 72 Years 1950 PCP Gustavo CALLOWAY, Dung PCP Visit Date 11/07/2022 13:55:00 Additional Instructions: Scheduled Appointments?? Future Appointments ?Diabetic??[facility] ?Phone:??--?Fax:??-- ?Appt. Date:??11/16/2022?4:00 PM ?Scheduled Provider:??Herb RN, Charlotte ?*[facility]??Lab??[address] ?Phone:??--?Fax:??-- ?Appt. Date:??11/22/2022?2:00 PM ?Scheduled Provider:??Ultrasound Room 1 [facility] ?*[facility],??[place],??[address] ?Phone:??--?Fax:??-- ?Appt. Date:??11/30/2022?8:00 AM ?Scheduled Provider:??Vitaliy Phelps MD ?*[facility]Adult??Ped ?[address]??[place],??[place],??[address] ?Phone:??--?Fax:??-- ?Appt. Date:??12/08/2022?10:30 AM ?Scheduled Provider:??Dung Chen MD Follow-Up Instructions ?? With: Address: When: Vitaliy Phelps MD Within 2 to 5 weeks Comments: F/U 3-4 weeks with Venous duplex of left leg Diagnosis Medications: Please continue your medications until [...] a day. Next Dose: Durable Medical Equipment (Shareaholic Nona 2 Booker) Use to monitor blood glucose, scan sensor [...] Dose: Durable Medical Equipment (Freestyle Nona Sensor) , use with freestyle nona 14 day reader for frequent glucose monitoring, change every 14 days, 28 day supply. Refills: 13. Next Dose: Durable Medical Equipment (Pen Manns Choice, 31 G x 8 mm BD Ultra Fine III) use as directed for Type 2 Diabetes Mellitus for 5 injections per day E11.. Refills: 6. Next Dose: Durable Medical Equipment (Pen Manns Choice, 32 G x 4 mm BD Ultra [...] Medications Given This Visit Future Orders ?VL Venous Dup Scan DVT Study LE Bilat? Order Date:11/07/22?- Complete by?11/07/22 Vital Signs Height 173 cm Weight BMI Blood Pressure 110 mm Hg/70 mm Hg Temperature Pulse Rate 94 bpm Respiratory Rate 02 Sat Mode of Delivery 97 %/Room air You can now view a summary of your hospital visit from the comfort of your home through a free online portal called [facility]. [facility] is a website that allows you to securely view your medical information including discharge summary, medications and follow-up visits. ??You can alsosend a secure electronic message to your doctor???s office to request appointments, renew medications or just ask a question. You can enroll at [email or web address] or register during your next office visit. [...] primary care provider, you may find a [facility] provider by calling [email or web address] Link at [phone]. For information about the plan of care [...] Care Nurse Name: Sherice Mariscal RN Position: [facility] RN Member Role: Primary Care Nurse Name: Najma Michael RN Position: S RN Member Role: Primary Care Nurse Name: Mallory Masterson NP Position: Reference Physician Member Role: Primary Care Nurse Address: Address: [address] [place] [address]- [place] Name: Scarlet Rosenthal RN Position: [facility] SN RN Member Role: Primary Care Nurse Name: Khurram Hansen RN Position: [facility] RN Member Role: Primary Care Nurse Name: Dung Chen MD Position: [facility] Physician - Primary Care Member Role: PCP Address: Address: [address], [place] [address]- [place] Name: Heydi Oviedo RN Position: [facility] Instructor Flying Member Role: Primary Care Nurse Name: Sandra Cat Position: [facility] Outreach Member Role: Lifetime Consulting Physician Name: Nicki Garcia RN Position: [facility] RN Member Role: Primary Care Nurse Name: Vane Davalos RN Position: [facility] RN Member Role: Primary Care Nurse Name: Luis Peters MD Position: [facility] Renal MD Member Role: Lifetime Consulting Physician Address: Address: [address] [facility] [address] [facility], [place] [address]- [place] Name: Zulma Martinez MD Position: [facility] Cardiology MD Member Role: Lifetime Consulting Physician Address: Address: [address] [facility] [address] [place] [address]- [place] Name: Evelyn Jean-Baptiste RN Position: [facility] RN Member Role: Primary Care Nurse Name: Hilda Mcdonald RN Position: [facility] RN Member Role: Primary Care Nurse Care Team Related Persons Name: LUCIA BATEMAN Address: home [address] [place] [address]
--- OUTSIDE RECORDS SUMMARY | 2023-05-15 09:01 | XMS_ITS | Summary of Care ---
Author Name Unknown Organization [facility] Address [address] [place] [address]- Care Team Providers Care Ostomy Nurse Name Role Phone Gustavo Guerrero, Dung Pagan Primary Care Physician Unavailable Encounter 03/06/23 - 03/16/[address] [address]- Discharge Disposition: 06H Home with Home Health Care Attending Physician: Piotr Rodriguez MD Admitting Physician: Piotr Rodriguez MD Referring Physician: Jena Mcfadden MD Allergies, Adverse Reactions, Alerts Substance Reaction Severity Status lisinopril Active Medications acetaminophen 325 mg oral tablet 650 mg = 2 tab, Tab, Oral, q4hr PRN, 0 Refill(s), PAIN (Scale 1-6) Start Date: 03/15/23 Status: Ordered albuterol 2.5 mg/3 mL (0.083%) inhalation solution 2.5 mg, 3 mL, Soln-Inh, NEB, q4hr PRN, 100 mL, 0 Refill(s), Shortness of breath, Route to Pharmacy Electronically, [facility]/pharmacy #[id number], 173, cm, 03/12/23 12:54:00 EST, Height/Length Dosing, 100.7, kg,03/12/23 12:54:00 EST, Weight Dosing Start Date: 03/15/23 Status: Ordered amLODIPine 10 mg = 1 tab, Tab, Oral, Start date 03/16/23 8:00:00 EST, 03/06/23 16:27:00 EST Start Date: 03/16/23 Stop Date: 03/16/23 Status: Completed amLODIPine 10 mg oral tablet 10 mg = 1 tab, Tab, Oral, Daily, 0 Refill(s) Start Date: 03/15/23 Status: Ordered Anoro Ellipta 62.5 mcg-25 mcg/inh inhalation powder 1 puff, Powder, INH, Daily RT, 1 EA, 0 Refill(s), Route to Pharmacy Electronically, [facility]/pharmacy #[id number], 173, cm, 03/12/23 12:54:00 EST, Height/Length Dosing, 100.7, kg, 03/12/23 12:54:00 EST, Weight Dosing Start Date: 03/15/23 Status: Ordered aspirin 81 mg oral delayed release tablet 81 mg, = 1 tab, Indication: Intermittent claudication Tab-EC, Oral, Daily, 0 Refill(s) Start Date: 03/15/23 Status: Ordered cholecalciferol 50 mcg (2000 intl units) oral tablet 50 mcg = 1 tab, Tab, Oral, Daily, 0 Refill(s) Start Date: 03/15/23 Status: Ordered cyanocobalamin 1000 mcg oral tablet 1,000 mcg = 1 tab, Tab, Oral, Daily, 0 Refill(s) Start Date: 03/15/23 Status: Ordered DULoxetine 20 mg oral delayed release capsule 40 mg = 2 cap, Cap-DR, Oral, QHS, 0 Refill(s) Start Date: 03/15/23 Status: Ordered fludrocortisone 0.1 mg oral tablet 0.1 mg = 1 tab, Tab, Oral, Daily, 0 Refill(s) Start Date: 03/15/23 Status: Ordered fluticasone 50 mcg/inh nasal spray 100 mcg, 2 spray, [place]-Nasal, Nasal, Daily, 0 Refill(s) Start Date: 03/15/23 Status: Ordered gabapentin 300 mg oral capsule 600 mg, = 2 cap, Indication: Neuropathic Pain - Spinal Cap, Oral, TID, 180 cap, 0 Refill(s), Route to Pharmacy Electronically, [facility]/pharmacy #[id number], 173, 03/12/23 12:54:00 EST, Height/Length Dosing, cm, 100.7, 03/12/23 12:54:00 EST, Weight Dosing, kg Start Date: 03/15/23 Status: Ordered insulin glargine 100 units/mL subcutaneous solution 20 units = 0.2 mL, Indication Hyperglycemia, Injection-Insulin (soln), Subcutaneous, Start date 03/13/23 20:00:00 EST Start Date: 03/13/23 Stop Date: 03/13/23 Status: Completed insulin glargine 100 units/mL subcutaneous solution 20 units = 0.2 mL, Indication Hyperglycemia, Injection-Insulin (soln), Subcutaneous, Start date 03/15/23 20:00:00 EST Start Date: 03/15/23 Stop Date: 03/15/23 Status: Completed insulin glargine 100 units/mL subcutaneous solution 20 units, Indication: Hyperglycemia Injection-Insulin (soln), Subcutaneous, QHS, 0 Refill(s) Start Date: 03/15/23 Status: Ordered insulin lispro 100 units/mL injectable solution Moderate, Indication: Hyperglycemia Injection-Insulin (soln), Subcutaneous, WMHS, 0 Refill(s), Givewithin 15 min after eating <60 or symptomatic Follow Hypoglycemia Protocol 61-150=0 Unit 151-200=2 Unit 201-250=4 unit 251-300=6 Unit 301-350=8... Start Date: 03/15/23 Status: Ordered losartan 100 mg = 1 tab, Tab, Oral, Start date 03/16/23 8:00:00 EST, 03/06/23 16:32:00 EST Start Date: 03/16/23 Stop Date: 03/16/23 Status: Completed magnesium oxide 400 mg oral tablet 400 mg = 1 tab, Tab, Oral, BID, 60 tab, 0 Refill(s), Dispense: 30 day, Stop date 04/14/23 9:08:00 EST, Route to Pharmacy Electronically, [facility]/pharmacy #[id number], 228, 03/12/23 12:54:00 EST, Height/Length Dosing, cm, 100.7, 03/12/23 12:54:00 EST, Weight Dos... Start Date: 03/15/23 Stop Date: 04/14/23 Status: Ordered Myfortic 360 mg oral delayed release tablet 360 mg = 1 tab, Tab-EC, Oral, BID, 0 Refill(s) Start Date: 03/15/23 Status: Ordered Os-Jose Roberto 500 + D 1 tab, Tab, Oral, BID, 0 Refill(s) Start Date: 03/15/23 Status: Ordered oxyCODONE 5 mg oral tablet 5 mg = 1 tab, Tab, Oral, q6hr PRN, 10 tab, 0 Refill(s), Partial fill upon patient request., PAIN (Scale 7-10), Route to Pharmacy Electronically, [facility]/pharmacy #[id number] 173, 03/12/23 12:54:00 EST, Height/Length Dosing, cm, 100.7, 03/12/23 12:54:00 EST, kg... Start Date: 03/15/23 Status: Ordered pantoprazole 40 mg oral granule, delayed release 40 mg = 1 EA, Oral, BID, 0 Refill(s) Start Date: 03/06/23 Status: Ordered Plavix 75 mg oral tablet 75 mg, = 1 tab, Indication: Intermittent claudication Tab, Oral, Daily, 0 Refill(s) Start Date: 03/15/23 Status: Ordered predniSONE 5 mg oral tablet 5 mg = 1 tab, Oral, Daily, 0 Refill(s) Start Date: 03/06/23 Status: Ordered rosuvastatin 20 mg oral tablet 20 mg, 1 tab, Tab, Oral, Daily, 30 tab, 0 Refill(s) Start Date: 03/06/23 Status: Ordered tacrolimus 0.5 mg oral capsule 0.5 mg = 1 cap, Cap, Oral, qPM, 180 cap, 0 Refill(s), 0.5 mg each evening with the 2mg dose for a total evening dose of 2.5mg Start Date: 03/06/23 Status: Ordered tacrolimus 1 mg oral capsule 2 mg = 2 cap, Cap, Oral, q12hr, 180 cap, 0 Refill(s), 0700; 1900 morning dose is 2 mg total eveningdose is 2.5 mg total Start Date: 03/06/23 Status: Ordered Tessalon Perles 100 mg oral capsule 100 mg = 1 cap, Cap, Oral, TID, 30 cap, 0 Refill(s), Dispense: 10 day, Stop date 03/25/23 9:08:00 EST, Route to Pharmacy Electronically, [facility]/pharmacy #[id number] 173, 03/12/23 12:54:00 EST, Height/Length Dosing, cm, 100.7, 03/12/23 12:54:00 EST, Weight Dos... Start Date: 03/15/23 Stop Date: 03/25/23 Status: Ordered Therapeutic Multiple Vitamins with Minerals oral tablet 1 tab, Tab, Oral, Daily, 0 Refill(s) Start Date: 03/15/23 Status: Ordered traZODone 100 mg oral tablet 200 mg = 2 tab, Tab, Oral, QHS, 0 Refill(s) Start Date: 03/15/23 Status: Ordered Trulicity Pen 1.5 mg/0.5 mL subcutaneous solution 1.5 mg, = 0.5 mL, Indication: Hyperglycemia Soln-Inj, Subcutaneous, qSUN, 0 Refill(s) Start Date: 03/15/23 Status: Ordered valsartan 160 mg oral tablet 160 mg, 1 tab, Tab, Oral, Daily, 30 tab, 0 Refill(s) Start Date: 03/06/23 Status: Ordered Vitamin C 500 mg oral tablet 500 mg = 1 tab, Tab, Oral, Daily, 0 Refill(s) Start Date: 03/15/23 Status: Ordered Zinc-220 oral capsule 220 mg = 1 cap, Cap, Oral, Daily, 0 Refill(s) Start Date: 03/15/23 Status: Ordered Problem List Condition Confirmation Course Effective Dates Status H ealth Status Informant Anxiety Confirmed Active At risk of venous thromboembolus 1 Confirmed 07/01/21 Active BPH - benign prostatic hyperplasia Confirmed Active CAD - Coronary artery disease Confirmed Active Cardiomyopathy Confirmed Active CHF - Congestive heart failure Confirmed Active COVID-19 Confirmed Active Depression Confirmed Active Diabetes mellitus Confirmed Active DVT - Deep vein thrombosis Confirmed Active GERD - Gastro-esophageal reflux disease Confirmed Active HLD - Hyperlipidemia Confirmed Active HTN - Hypertension Confirmed Active Neuropathy Confirmed Active PAD - Peripheral arterial disease Confirmed Active PVD - peripheral vascular disease Confirmed Active Suspected disease caused by 2019 novel coronavirus 2 Confirmed 06/30/21 - 06/30/21 Resolved 1Problem added by Discern Expert Rule: EBN_VTERISKPROB_3 2Problem added automatically by Discern Expert based on clinical documentation Results Laboratory List Name Date Glucose, POC 03/16/23 Glucose, POC 03/16/23 Glucose, POC 03/15/23 Most recent to oldest [Reference Range]: 1 2 3 Creatinine Level 1.34 mg/dL (03/14/23 11:59 AM) 1.02 mg/dL (03/08/23 5:00 PM) 1.02 mg/dL (03/07/23 5:29 PM) Estimated Creatinine Clearance 49.10 mL/min 1 (03/14/23 11:59 AM) 64.50 mL/min 2 (03/12/23 12:45 PM) 64.50 mL/min 3 (03/08/23 5:00 PM) Glucose POC RALS [74-106 mg/dL] 169 mg/dL *HI* (03/16/23 11:03 AM) 199 mg/dL *HI* (03/16/23 6:05 AM) 163 mg/dL *HI* (03/15/23 7:53 PM) Blood Glucose, Capillary [74-106 mg/dL] 163 mg/dL *HI* (03/15/23 7:58 PM) 249 mg/dL *HI* (03/14/23 9:28 PM) 239 mg/dL *HI* (03/13/23 8:30 PM) 1Result Comment: Calculated using method: Cockcroft-Gault (default) Calculated using Formula : (140-ageInYears)*IBW/(72*scrInMGperDL) Age: 72 (15817907382.0) Serum Creatinine: 1.34 mg/dL (92209855026.0) Height: 173 cm (16976062287.0) Weight: 100.7 kg (IBW = 68.654 kg) 2Result Comment: Calculated using method: Cockcroft-Gault (default) Calculated using Formula : (140-ageInYears)*IBW/(72*scrInMGperDL) Age: 72 (75932673989.0) Serum Creatinine: 1.02 mg/dL (00232946624.0) Height: 173 cm (84717580470.0) Weight: 100.7 kg (IBW = 68.654 kg) 3Result Comment: Calculated using method: Cockcroft-Gault (default) Calculated using Formula : (140-ageInYears)*IBW/(72*scrInMGperDL) Age: 72 (76404937700.0) Serum Creatinine: 1.02 mg/dL (11412803621.0) Height: 173 cm (04976496758.0) Weight: 78.9 kg (IBW = 68.654 kg) Vital Signs Most recent to oldest [Reference Range]: 1 2 3 Temperature Oral F [96.4-99.1 DegF] 97.6 DegF (03/16/23 5:39 AM) 98 DegF (03/15/23 2:57 PM) 97.8 DegF (03/15/23 12:45 PM) Peripheral Pulse Rate [60-100 bpm] 88 bpm (03/16/23 5:39 AM) 98 bpm (03/15/23 10:30 AM) 96 bpm (03/15/23 7:30 AM) Respiratory Rate [14-20 br/min] 18 br/min (03/16/23 5:39 AM) 14 br/min (03/15/23 7:30 AM) 16 br/min (03/12/23 5:10 AM) Blood Pressure [90-140/60-90 mmHg] 123/74mmHg (03/16/23 8:24 AM) 123/74mmHg (03/16/23 8:24 AM) 130/76mmHg (03/16/23 5:38 AM) Mean Arterial Pressure, Cuff 94 mmHg (03/16/23 5:38 AM) 85 mmHg (03/15/23 2:58 PM) 87 mmHg (03/15/23 10:30 AM) Extremity used to obtain blood pressure Right Arm (03/16/23 5:39 AM) Left Arm (03/15/23 2:59 PM) Left Arm (03/14/23 2:42 PM) Peripheral Pulse Rate Post [60-100 bpm] 95 bpm (03/12/23 9:00 AM) Systolic Blood Pressure Post [90-140 mmHg] 107 mmHg (03/12/23 9:00 AM) Diastolic Blood Pressure Post [60-90 mmHg] 85 mmHg (03/12/23 9:00 AM) SpO2 Post [94-100 %] 98 % (03/12/23 9:00 AM) Oxygen Therapy Post Room air (03/12/23 9:00 AM) Temperature Oral 36.4 DegC 1 (03/16/23 5:39 AM) 36.0 DegC 2 (03/15/23 2:57 PM) 36.9 DegC 3 (03/14/23 2:42 PM) 1Result Comment: Charted by SYSTEM secondary to charting of Temperature Oral F on a Vitals Monitor. Rule: VITALSLINK_CALCULATIONS_2 2Result Comment: Charted by SYSTEM secondary to charting of Temperature Oral F on a Vitals Monitor. Rule: VITALSLINK_CALCULATIONS_2 3Result Comment: Charted by SYSTEM secondary to charting of Temperature Oral F on a Vitals Monitor. Rule: VITALSLINK_CALCULATIONS_2 Social History Social History Type Response Sex Male Patient Care team information Personnel Name: Dung Chen M.D.
--- OUTSIDE RECORDS SUMMARY | 2023-05-15 09:01 | XMS_ITS | Continuity of Care Document ---
Author Name Unknown Organization [facility] [place] Address [address] [place] [address]- Care Team Providers Care Violin Mechanic Name Role Phone Dung Chen MD Primary Care Physician [phone] Encounter [facility] Date(s): 01/16/20 - 02/15/20 [facility] [place] [address] [place] [address]- [facility] Allergies, Adverse Reactions, Alerts Substance Reaction Severity [...] he received this seasons flu vaccine at [place]. 3Admin Note: Patient states he received pneumovax in 2004 at [place]. Medications aspirin 81 mg oral tablet [...]
--- OUTSIDE RECORDS SUMMARY | 2023-05-15 09:01 | XMS_ITS | Continuity of Care Document ---
Author Name Unknown Organization [facility] Address [address] [place] [address]- Care Team Providers Care Income Tax Preparer Name Role Phone Dung Chen MD Primary Care Physician [phone] Encounter [facility] [place] Date(s): 11/03/22 - 12/03/22 [facility] [address], [place] [address] Attending Physician: Scott Mcintosh Admitting Physician: Scott Mcintosh Referring Physician: Scott Mcintosh Referring Physician: María Pacheco Allergies, Adverse Reactions, Alerts Substance Reaction Severity Status lisinopril Active Immunizations Given and Recorded Vaccine Date Status Refusal Reason [id number] 12y+ bivalent booster vax 04/15/22 Recorded influenza [...] vaccine, inactivated 03/07/06 Quinn rded SARS-CoV-2 mRNA ([id number]) vax 07/18/21 Recorded SARS-CoV-2 (COVID-19) mRNA BNT-162b2 [...] he received this seasons flu vaccine at [facility]. 3Admin Note: Patient states he received pneumovax in 2004 at [facility]. Medications amLODIPine 10 mg oral tablet 10 mg, 1, tablet, By Mouth, Daily, # 90 tablet, Refills 3, Tot. Refills 3, Maintenance, 11/03/22 11:30:00 EDT, Route to Pharmacy Electronically, [facility] ([facility] ), Partial fill upon patient request if the prescription is for... Start Date: 11/03/22 Status: Ordered apixaban Starter Pack 5 mg oral tablet = 10 mg, By Mouth, 2 times a day, first dose on 10/15 at 2100, # 1 pack/packet, 0 Refills, Maintenance, 10/15/22 10:04:00 EDT, Tablet, [facility], Partial fill upon patient request if theprescription is for a schedule II opioid drug., 173... Start Date: 10/15/22 Status: Ordered aspirin 81 mg oral delayed release tablet 81 mg, 1, tablet, By Mouth, Daily, # 30 tablet, Refills 0, Tot. Refills 0, Maintenance, 06/08/21 11:45:00 EST, Route to Pharmacy Electronically, [facility]/pharmacy #[id number], Partial fill upon patient request if the [...] 0 Refills, Maintenance, 04/12/22 19:33:00 EST, Capsule, [facility]/pharmacy #[id number], Partial fill upon patient request [...] Date: 09/25/21 Status: Ordered Freestyle Nona 2 [place] Freestyle Nona 2 [place], See Instructions, # 1 each, Refills 0, [...] Maintenance, 08/23/22 12:58:00 EDT, [facility] ([facility]), 176, cm... Start Date: 08/23/22 Status: Ordered insulin degludec (concentrated) 200 units/mL subcutaneous solution See Instructions, 20 units in the AM and 30 units in the PM 30 days supply, # 75 mL, 3 Refills, Maintenance, 10/15/22 10:03:00 EDT, [facility], Partial fill upon patient request [...] Weight Start Date: 08/17/22 Status: Ordered Pen Thayer, 31 G x 8 mm BD Ultra Fine III See Instructions, # 300 each, Refills 6, Tot. Refills 6, Maintenance, use as directed for Type 2 Diabetes Mellitus for 5 injections per day E11.9, 12/09/21 9:52:00 EDT, Supply, 175.3, cm, 12/06/21 7:36:00 EDT, Height, 95.3, kg, 12/06/21 7:36:00 EDT... Start Date: 12/09/21 Stop Date: 08/31/23 Status: Ordered Pen Thayer, 32 G x 4 mm BD Ultra [...] Route to Pharmacy Electronically, [facility] ([facility]), 173, cm, 10/12/22 19:31:00 EDT, [...] r) present Confirmed 06/21/05 Active BPH - [facility] Confirmed 03/14/21 Active Chronic kidney disease stage 3 Confirmed 05/17/11 Active CAD; s/p CABG 1997, [place] 2006 w/stent; heart transplant 04/30 Confirmed Active DVT, lower extremity Confirmed Active Diabetes mellitus with PVD; stents; [facility] Confirmed Active [...] back pain Confirmed 06/15/15 Active Microscopic hematuria; [facility] Confirmed Active Neck pain [...] Confirmed 06/21/05 Active Tremor - Neurology at [facility] Confirmed 02/07/18 Active Type 2 DM with renal manifestations; [facility] Confirmed 05/04/16 Active 1EF 20-25% prior to transplant Procedures Procedure Date Related Diagnosis Body Site Status Angioplasty RLE 08/2022 Completed Social History Social History Type Response Smoking Status Former smoker, quit more than 30 days ago entered on: 10/24/22 Sex Cardiology * Event Display: Cardiology Office Note, Non-BH Authored Date: * Event Display: Cardiology Office Note, Non-BH Authored Date: * Event Display: Cardiology Office Note, Non-BH Authored Date: * Event Display: EKG Non BH Authored Date: Laboratory * Event Display: Non BH Lab Results Authored Date: * Event Display: Non BH Lab Results Authored Date: Radiology * Event Display: MRI Spine, Non- BH Authored Date: * Event Display: MRI Shoulder, Non- BH Authored Date: * Event Display: MRI Shoulder, Non- BH Authored Date: * Event Display: MRI Shoulder, Non- BH Authored Date: * Event Display: Ultrasound Lower Extremity, Non-BH Authored Date: * Event Display: X-Ray Chest, Non- BH Authored Date: * Event Display: IR Special Procedures, Non-BH Authored Date: * Event Display: IR Special Procedures, Non-BH Authored Date: * Event Display: X-Ray Chest, Non- BH Authored Date: * Event Display: X-Ray Spine, Non- BH Authored Date: * Event Display: MRI Hip/Groin, Non- BH Authored Date: * Event Display: MRI Head, Non- BH Authored Date: * Event Display: MRI Spine, Non- BH Authored Date: * Event Display: CT Scan Head, Non- BH Authored Date: US Lower extremity * Event Display: Ultrasound Lower Extremity Authored Date: Patient Care team information Care Team Personnel Name: Nenita Song Position: [facility] RN Supv Member Role: Primary Care Nurse Name: Sherice Mariscal RN Position: [facility] RN Member Role: Primary Care Nurse Name: Najma Michael RN Position: [facility] RN Member Role: Primary Care Nurse Name: Mallory Masterson NP Position: Reference Physician Member Role: Primary Care Nurse Address: Address: [address] [place] [phone]- [place] Name: Scarlet Rosenthal RN Position: [facility] SN RN Member Role: Primary Care Nurse Name: Khurram Hansen RN Position: [facility] RN Member Role: Primary Care Nurse Name: Dung Chen MD Position: [facility] Physician - Primary Care Member Role: PCP Address: Address: [address] [place] [address]- [place] Name: Heydi Oviedo RN Position: [facility] Hospital Resp Ther Member Role: Primary Care Nurse Name: Sandra Cat Position: [facility] Outreach Member Role: [employer] Consult[employer] Physician Name: Nicki Garcia RN Position: S RN Member Role: Primary Care Nurse Name: Vane Davalos RN Position: S RN Member Role: Primary Care Nurse Name: Luis Peters MD Position: [facility] Renal MD Member Role: [employer] Consult[employer] Physician Address: Address: [address] [facility] [place] [address]- Name: Zulma Martinez MD Position: [facility] Cardiology MD Member Role: [employer] Consult[employer] Physician Address: Address: [address] [place] [phone]- Name: Evelyn Jean-Baptiste RN Position: S RN Member Role: Primary Care Nurse Name: Hilda Mcdonald RN Position: S RN Member Role: Primary Care Nurse Care Team Related Persons Name: BATEMAN LUCIA Address: home [address] [place] [address]
[2023-05-15 09:35] LABS: Glucose, Whole Blood 116 mg/dL (60-115)
[2023-05-15] MEDS: methocarbamoL 750 MG TABLET PO (09:45)
[2023-05-15] MEDS: Gabapentin 300 MG CAPSULE PO ×3 (09:45→20:34)
[2023-05-15] MEDS: Lactated Ringers 1,000 ML 50 ML IVCONT (09:47)
--- NOTE | 2023-05-15 13:05 | P.OP_ITS ---
Operative Note Operative Note Date of Service: 05/15/23 Narrative: Preop Diagnosis: 1.) Lumbar spondylolisthesis L4-5; neurogenic claudication Procedure: L4-5 discectomy, arthrodesis and implantation cage through an anterolateral, retroperitoneal approach; posterior instrumented fusion L4-5; allograft Consent Informed Consent was obtained for this operation. I have explained the nature, purpose and benefits of the operation. I have discussed the risks and benefit of the operation including possible complications or adverse events with patient/family. Alternative(s) were discussed with the patient with their relative benefits and risks as well as the consequences of not accepting the operation were included in obtaining consent. Surgeon: JUAN RAMON KERNS MD, PHD Procedure Assisted By: Abraham suh Description of Procedure This 72-year-old male previously underwent a lumbar decompression and coflex placement in another institution. He presented with ongoing back pain and neurogenic claudication with the MRI showing signs of instability confirmed with a lumbar x-ray. The patient was offered an oblique lumbar interbody fusion L4- 5. The procedure complications were explained. The patient was consented. The patient was brought to the operating room and endotracheally intubated. The patient was turned in a lateral position with the left side up. Prep and drape was done followed by timeout. A small incision was made in the left lower abdominal quadrant. The muscle fascia was opened after which the 3 muscle layer was split to enter the retroperitoneal space. Dilators were docked in the anterior one third of the L4-5 disc space followed by a retractor. The retractor was opened. The L4-5 disc space was exposed. An annulotomy was done after which an elevator Marinelli was used to release the disc material from its endplates and to perforate the contralateral side. A partial discectomy was done. An 8 mm, 10 mm and 12 mm height trial implants were inserted. The discectomy was completed. The endplates were prepared. An 12 x 50 mm with 0 degree lordosis 4 web cage filled with allograft was inserted into the disc space under fluoroscopic guidance. This resulted in increase of the L4-5 disc height. The retractor was removed. Hemostasis was done. The incision was closed in 2 layers. Steri-Strips used to approximate incision. An OpSite with Tegaderm was used to cover the incision. This marked first part of the procedure. The patient was turned prone on the Wilbur spine table. 2C arms were installed for fluoroscopy. Prep and drape was done followed by a second timeout. 2 paramedian incisions were made lateral from the L4 and L5 pedicles. The muscle fascia was opened after which the muscle layer was split bluntly to expose the posterolateral gutter. The following steps were taken. A pediguard tap was used to create a transpedicular trajectory into the vertebral body. A K wire was placed. A specially designed instrument was advanced over the K wire to decorticate the posterolateral gutter in preparation for the posterolateral fusion. A pedicle screw was advanced over the K wire and the K wire was removed. The steps were done for the bilateral L4 and L5 pedicles. A total of 4 screws were placed with a diameter of 6.5 x 45 mm. Pedicle screws were connected with 45 mm paul bilaterally and locked down with locking caps. The extension towers were removed. The posterolateral gutter was filled with allograft to complete the posterolateral [] fusion Hemostasis was done and the incision was closed in 2 layers. Steri-Strips were used to approximate the incision. An OpSite were taken and was used to cover the incision. All sponge and needle counts were correct. Patient was extubated and transferred in stable is to recovery room. Anesthesia: General Estimated Blood Loss (ml): 25 ml Duration of Surgery: 90 minutes Complications: None Postoperative Plan: Admit to inpatient for observation
[2023-05-15] MEDS: fentaNYL citrate/PF 100 MCG/2 ML VIAL 25 MCG IVPUSH ×2 (13:55→14:00)
[2023-05-15] MEDS: oxyCODONE HCl Immed Release 5 MG TABLET PO (14:37)
--- NOTE | 2023-05-15 15:40 | PC.NURSE ---
Pt admitted to 369 from PACU. Pt not currently listed in Pyxis. t/w called and spoke to Najma in pharmacy. Najma stated they were currently on the phone with IT trying to resolve the issue.
[2023-05-15 16:22] LABS: Glucose, Whole Blood 177 mg/dL (60-115)
[2023-05-15] MEDS: 0.9 % Sodium Chloride 1,000 ML 75 ML IVCONT (17:02)
[2023-05-15] MEDS: Cholecalciferol (Vitamin D3) 25 MCG TABLET PO (17:03)
[2023-05-15] MEDS: Cyanocobalamin (Vitamin B-12) 1,000 MCG TABLET 1000 MCG PO (17:04)
[2023-05-15] MEDS: Valsartan 160 MG TABLET PO (17:04)
--- NOTE | 2023-05-15 17:13 | PHA.MEDREC ---
Pharmacy Consult ? Medication Reconciliation Pharmacy has reviewed the medication reconciliation compelted by nursing. Patient reporting taking gabapentin 300 mg instead of 600 mg. Flores Burgess, CherylD
[2023-05-15] MEDS: HYDROmorphone HCl 1 MG/ML SYRINGE IVPUSH ×3 (17:15→22:43)
[2023-05-15] MEDS: Insulin Lispro 100 UNIT/ML 3 ML VIAL SUBCUT ×2 (17:16→22:02)
[2023-05-15] MEDS: Aspirin Enteric Coated 81 MG TABLET.DR PO (17:22)
[2023-05-15] MEDS: ceFAZolin Sodium/Dextrose,Iso 2 GM/50 ML PIGGYBACK IV (17:43)
[2023-05-15] MEDS: Acetaminophen 1,000 MG/100 ML PIGGYBACK 400 MG IV ×2 (18:33→23:43)
[2023-05-15 20:30] LABS: Glucose, Whole Blood 189 mg/dL (60-115)
[2023-05-15 20:30] LABS: Glucose, Whole Blood 216 mg/dL (60-115)
[2023-05-15] MEDS: oxyCODONE HCl Immed Release 5 MG TABLET 10 MG PO (20:34)
[2023-05-15] MEDS: Magnesium Oxide 400 MG TABLET PO (20:34)
[2023-05-15] MEDS: Docusate Sodium 100 MG CAPSULE PO (20:35)
[2023-05-15] MEDS: DULoxetine HCl 20 MG CAPSULE.DR 40 MG PO (20:35)
[2023-05-15] MEDS: Omeprazole 20 MG CAPSULE.DR PO (20:35)
[2023-05-15] MEDS: Atorvastatin Calcium 80 MG TABLET PO (20:35)
[2023-05-15] MEDS: Tacrolimus 1 MG CAPSULE 2 MG PO (20:35)
[2023-05-15] MEDS: Mycophenolate Sodium 180 MG TABLET.DR 360 MG PO (22:00)
[2023-05-15] MEDS: Tacrolimus 0.5 MG CAPSULE PO (22:00)
[2023-05-15] MEDS: traZODone HCL 100 MG TABLET 200 MG PO (22:01)
[2023-05-16] MEDS: ceFAZolin Sodium/Dextrose,Iso 2 GM/50 ML PIGGYBACK IV ×2 (00:06→05:52)
[2023-05-16 03:20] VITALS: BP 144/70; PULSE 83; RESP 18; TEMP 36; O2SAT 93
[2023-05-16] MEDS: HYDROmorphone HCl 1 MG/ML SYRINGE IVPUSH ×3 (03:55→12:00)
[2023-05-16] MEDS: Acetaminophen 1,000 MG/100 ML PIGGYBACK 400 MG IV ×2 (05:34→11:35)
[2023-05-16] MEDS: oxyCODONE HCl Immed Release 5 MG TABLET 10 MG PO (05:36)
[2023-05-16] MEDS: 0.9 % Sodium Chloride 1,000 ML 75 ML IVCONT (05:51)
[2023-05-16 07:17] VITALS: BP 134/65; PULSE 83; RESP 18; TEMP 36.6; O2SAT 96
[2023-05-16 07:34] VITALS: BP 134/65; PULSE 83; O2SAT 96
[2023-05-16 07:59] LABS: Glucose, Whole Blood 137 mg/dL (60-115)
[2023-05-16] MEDS: Aspirin Enteric Coated 81 MG TABLET.DR PO (08:16)
--- NOTE | 2023-05-16 08:33 | HO.POSTANES ---
Post Anesthesia Evaluation Post Anesthesia Evaluation Date of Service: 05/16/23 Vital Signs: Vital Signs Temp Pulse Resp BP Pulse Ox O2 Del Method O2 Flow Rate 05/16/23 07:34 83 134/65 96 05/16/23 07:17 98 F 83 18 134/65 96 Room Air 05/16/23 03:20 96.8 F 83 18 144/70 H 93 Nasal Cannula 2 05/15/23 23:23 97.2 F 92 16 120/60 94 Nasal Cannula 2 Anesthesia: General Endotracheal-GETA Mental Status: Awake Pain Control: Satisfactory (difficulty controlling pain) Nausea/Vomiting: None Hydration: Adequate Anesthesia-Related Issues: No Anes. Related Issues
[2023-05-16] MEDS: Cholecalciferol (Vitamin D3) 25 MCG TABLET PO (08:50)
[2023-05-16] MEDS: Docusate Sodium 100 MG CAPSULE PO (08:50)
[2023-05-16] MEDS: Cyanocobalamin (Vitamin B-12) 1,000 MCG TABLET 1000 MCG PO (08:50)
[2023-05-16] MEDS: amLODIPine Besylate 10 MG TABLET PO (08:50)
[2023-05-16] MEDS: Mycophenolate Sodium 180 MG TABLET.DR 360 MG PO (08:50)
[2023-05-16] MEDS: Fludrocortisone Acetate 0.1 MG TABLET PO (08:50)
[2023-05-16] MEDS: Omeprazole 20 MG CAPSULE.DR PO (08:51)
[2023-05-16] MEDS: Gabapentin 300 MG CAPSULE PO (08:51)
[2023-05-16] MEDS: Valsartan 160 MG TABLET PO (08:51)
[2023-05-16] MEDS: Tacrolimus 1 MG CAPSULE 2 MG PO (08:51)
[2023-05-16] MEDS: Magnesium Oxide 400 MG TABLET PO (08:51)
[2023-05-16] MEDS: predniSONE 5 MG TABLET PO (08:51)
--- NOTE | 2023-05-16 09:48 | MHC.CM.PN ---
Addendum entered by Loly Colon 05/16/23 12:05: DP: PT HAS BEEN ACCEPTED AT [facility]. PT/ ACCEPT BED OFFER. RN/MD AWARE. BLS TRANSPORT SET UP FOR 2 PM VIA [facility]. CENTER UPDATED Original Note: [facility] DELIVERED PT LIVES IN A SINGLE STORY HOME WITH , HAS 4 STAIRS TO NAVIGATE. USES [facility] FOR MOBILITY. +HCP AT HOME PER , COPY REQUESTED. PCP DR. VERENA COSME. DP: P.T. REC ACUTE REHAB, [facility] IS FIRST CHOICE, REFERRAL SENT. WILL TRANSPORT VIA BLS. CM WILL CONTINUE TO FOLLOW FOR ANY CHANGE IN DC PLAN/NEEDS.
--- NOTE | 2023-05-16 10:11 | HO.NEUROPN_ITS ---
Neurosurgery Operative Note Date of Service: 05/16/23 Narrative: Postop day 1. L4-5 minimally invasive oblique lumbar interbody fusion Patient remains with back discomfort, denies any pain radiating down the legs. He has his baseline weakness and numbness of his feet from his diabetic p eripheral neuropathy but that is unchanged. He is voiding okay. He has tolerating a diet but does not have much of an appetite. Denies any chest pain, abdominal pain, nausea vomiting etc.. Afebrile, vital signs stable, blood sugars in the mid 100s, clue covered with a sliding scale. Physical exam: Patient is awake alert oriented no acute distress, motor examination reveals some limited range of motion due to pain and discomfort in his back with proximal leg movements. His right plantar and dorsiflexion are 1 to 2/5, left side is 0/5 in both plantar and dorsiflexion. He is antigravity w ith his quadriceps and again with his iliopsoas there is pain limiting movement. Abdomen is obese nondistended nontender, left lower quadrant incision is clean and dry, back dressings have a small amount of standing but no signs of hematoma. Impression: Postop day 1. L4-5 minimally invasive oblique lumbar interbody fusion, he has back discomfort as we expect, denies any leg pain, his baseline w eakness and numbness are unchanged. He is voiding on his own and tolerating a diet. The plan will have him work with PT today and see if he is ready for discharge to rehab versus home etc.. His blood sugars seem reasonably well controlled on his current regimen with sliding scale, they are mildly elevated in the mid 100s at times. Once he advanced his diet further, we can add back his home insulin. His blood pressure is stable and his vital signs are otherwise okay. Patient seen at bedside with Dr. Copeland.
[2023-05-16 11:35] LABS: Glucose, Whole Blood 195 mg/dL (60-115)
--- NOTE | 2023-05-16 11:41 | P.DS_ITS ---
DS: Providers Provider Date of Service: 05/15/23 Date of admission: 05/15/23 08:38 Date of discharge: 05/16/23 Primary care physician: Dung Chen MD Admitting clinician: Last Copeland DS: Diagnosis Discharge Diagnosis (1) Lumbar stenosis: Status: Acute (2) Low back pain: Status: Acute DS: Summary Hospital Course Hospital Course: This is a very nice 72-year-old gentleman with a history of advanced diabetes with peripheral neuropathy, history of heart transplant, history of previous L4- 5 lumbar decompression done at another institution with placement of coflex de vice. Unfortunately that procedure did not give this gentleman significant relief from his back pain or leg pain and standing x-rays done in the office in conjunction with his MRI showed signs of dynamic instability. He was given the option of an L4-5 oblique lumbar interbody fusion. He got medical clearance from his medical team, and elected to undergo the procedure. His Plavix was stopped 10 days before surgery. The patient was brought to the operating room on 05/15/2023 and underwent procedure without complication. He was brought to the PACU where he recovered from anesthesia and then subsequently brought up to the [address] [place] [address] where he began his convalescence. The patient had an uneventful 1st night. He was able to void on his own and was able to tolerate a diet. He was allowed to get out of bed walk to the bathroom. He has baseline almost near complete weakness of his dorsi and plantar flexion on both feet, this remains stable. He also has significant numbness of his feet as well from his diabetic neuropathy. There was no changes with this as expected. He did have back discomfort and we treated this with Tylenol and oxycodone. It seemed to make things manageable. He worked with physical therapy on his 1st postoperative day and was felt that he would need rehab. The plan will be to discharge him to the [facility] today. Condition on discharge, the patient is awake alert oriented no acute distress, as mentioned he has significant weakness of bilateral dorsi and plantar flexion, left greater than right. He has almost complete numbness of his feet as well. He is antigravity in his knees and has some pain related weakness of his iliopsoas. His abdomen is obese nondistended nontender, he has a left lower quadrant incision which is clean and dry. He has back dressings which are also clean and dry with no signs of hematoma just small amount of staining. The patient will be discharged out to rehab today. He does not need a brace. He is activity as tolerated. We have been covering him with a sliding scale here at the hospital, but upon discharge I would expect that he could resume his long-acting evening insulin as long as he continues to tolerate a diet well. His blood sugars have been in the mid 100s. The patient should follow up with us in the office in 3 weeks' time. I will include a discharge instructions with his paperwork. He can resume his Plavix on 05/26/2023. Please call the office with any questions area code [phone] Time Attestation Discharge coordination time: Less than 30 minutes Quality: Safe Use of Opioids Does Pt have an Active Cancer Diagnosis on the Problem List?: No Quality: Stroke Does the patient have a stroke diagnosis?: No Physical Exam Vital Signs: Vital Signs: Last Vital Signs Temp 98 F 05/16/23 07:17 Pulse 83 05/16/23 07:34 Resp 18 05/16/23 07:17 BP 134/65 05/16/23 07:34 Pulse Ox 96 05/16/23 07:34 O2 Del Method Room Air 05/16/23 07:17 O2 Flow Rate 2 05/16/23 03:20 BMI result Body Mass Index 33.1 DS: Data Data Completed and Pending Labs on day of discharge: Laboratory Results - last 24 hr 05/15/23 05/15/23 05/15/23 16:04 20:15 20:17 POC Glucose 177 H 216 H 189 H 05/16/23 05/16/23 07:15 11:31 POC Glucose 137 H 195 H Discharge Plan Discharge Anticipated Discharge Date/Time: 05/16/23 13:42 Patient Disposition: Xfer Inpatient Rehab Fac Discharge Diagnosis: Lumbar spondylolisthesis L4-5 Referrals: Dung Chen MD [Primary Care Provider] - 1 Week Discharge Medications: New oxycodone 5 mg tablet See Rx Instructions .ROUTE .COMPLEX PRN (Reason: pain) Qty: 40 0RF Rx Instructions: 1-2 tabs po q4 hours prn pain; Partial Fill upon patient request. Continued valsartan 160 mg tablet 160 mg PO QAM cyanocobalamin (vitamin B-12) [Vitamin B-12] 1,000 mcg Tablet 1,000 mcg PO QAM magnesium oxide 400 mg (241.3 mg magnesium) tablet 400 mg PO BID cholecalciferol (vitamin D3) [Vitamin D3] 25 mcg (1,000 unit) Capsule 25 mcg PO QAM insulin degludec [Tresiba FlexTouch U-200] 200 unit/mL (3 mL) Insulin Pen 20 unit SUBCUT BEDTIME tacrolimus 0.5 mg capsule 0.5 mg PO BEDTIME insulin degludec [Tresiba FlexTouch U-200] 200 unit/mL (3 mL) insulin pen 25 unit subcut QAM Trulicity 1.5 mg/0.5 mL pen injector 1.5 mg subcut QWEEK Rx Instructions: patient takes on Monday aspirin 81 mg Tablet,Delayed Release (Dr/Ec) 81 mg PO QAM tacrolimus 1 mg capsule 2 mg PO BID duloxetine 20 mg capsule,delayed release(DR/EC) 40 mg PO BEDTIME Humalog U-100 Insulin 100 unit/mL cartridge 10 - 20 unit subcut TIDAC amlodipine 5 mg tablet 10 mg PO QAM prednisone 5 mg tablet 5 mg PO QAM pantoprazole 40 mg tablet,delayed release (DR/EC) 40 mg PO BID trazodone 100 mg tablet 200 mg PO BEDTIME PRN (Reason: Insomnia) fludrocortisone 0.1 mg tablet 0.1 mg PO QAM rosuvastatin 20 mg tablet 20 mg PO BEDTIME (DME) pen needle, diabetic [BD Ultra-Fine Short Pen Needle] 31 gauge x 5/16 needle See Rx Instructions .ROUTE DIRECTED Qty: 1200 Rx Instructions: As directed gabapentin 300 mg capsule 300 mg PO TID mycophenolate sodium 360 mg tablet,delayed release (DR/EC) 360 mg PO BID Held clopidogrel 75 mg tablet 75 mg PO QAM Hold Instructions: Resume on 05/26/23. Discontinued oxycodone 5 mg tablet 5 mg PO Q8H PRN (Reason: pain) Qty: 30 0RF Rx Instructions: Partial Fill upon patient request. Discharge Orders: Discharge Order (Routine); Ordered 05/16/23 Ordered By: Abraham Colon Diet: Diabetic diet Activity on Discharge: As tolerated Stand Alone Forms: Patient Portal Discharge page Activity Restrictions/Additional Instructions: After your spinal surgery we ask you to observe the following restrictions/guidelines: Activity: It is normal to feel some discomfort as you increase your activity, but that wi ll improve with time. We ask you avoid heavy lifting or acitivities that cause pain. As a general rule, 8lbs is a safe limit for lifting right after surgery. Walk as much as you feel comfortable but not to exhaustion. You will feel extra tired the first few days after surgery. Stay well hydrated. It is OK to walk up and down stairs You may return to driving when you are off narcotics (such as vicodin, oxycodone, dilaudid, etc), and you are back to normal functional capacity. If you have any concerns please check with office before driving. Return to work is specific to each patient and each surgery, so please speak with your doctor/PA at first follow up. Please bring paperwork such as FMLA at that time if you need it filled out. Medications: The patient may resume Plavix on 05/26/2023 For optimum pain control, it is best to start with a combination of 500 mg of Tylenol every 4 hours with 600 mg of Motrin every 8 hours, and use narcotics as needed in between for breakthrough pain. We will give you a short supply of narcotics after surgery (usually one weeks worth). If you need more please call the office but do not use more than prescribed. You will need to give our office 48 hours notice if you need narcotics refilled and we do not fill narcotics on weekends or evenings. If you are on a narcotic, it is a good idea to take a stool softener such as colace or senna to avoid constipation If you take blood thinner such as aspirin, Plavix, Coumadin, Effient, Eliquis etc for conditions such as Afib, DVT, Pulmonary embolus, coronary disease, stents etc please speak with your surgeon about specific details as to when you can resume these medications. You can resume NSAIDs on post op day 1 (eg: Motrin, Naproxen, etc). Follow up: Please call the office, , after surgery to arrange a 3 week follow up for wound check. Wound Care: You may remove your dressing on the first day after surgery. ?You may ?leave open to air. Please do not remove the steri strips underneath. they will fall off on their own in one week. IT IS NORMAL FOR THE WOUND TO OOZE OR BE BLOODY FOR A FEW DAYS AFTER SURGERY. ?IF THIS HAPPENS JUST PLACE NEW DRESSING OVER IT TO AVOID STAINING CLOTHES. You may shower on post op day # 1 We ask that you do not let the water soak the wound. If it does get wet, just towel dry lightly. Please do not scrub your incision or place any type of chemical/ointment on the wound. No tub baths, pools or jacuzzis for one month. If you have any leaking or redness from your wound, or fevers, please call office Care Plan Goals: Discharge to rehab Health Concerns: None Plan of Treatment: Discharge to rehab Patient may resume Plavix on 05/26/2023 Assessment: Stable
[2023-05-16] MEDS: Insulin Lispro 100 UNIT/ML 3 ML VIAL SUBCUT (11:59)
[2023-05-16 12:00] VITALS: BP 109/55; PULSE 88; RESP 18; TEMP 36.2; O2SAT 93
== END 2023-05-16 14:17 | DRG 460 ==
LOC: HO.SSSA 08:48 → HO.S3 11:08 → HO.SSSA 11:09 → HO.S3 13:55
PROVIDERS: Admitting Provider Neurological Surgery; PCP Internal Medicine; Visit Provider Neurological Surgery
PROC: 0SG00A0 Fusion of Lumbar Vertebral Joint with Interbody Fusion Device, Anterior Approach, Anterior Column, Open Approach (ICD-10-PCS; principal; 2023-05-15 10:50)
DX: M43.16 Spondylolisthesis, lumbar region (principal); Z94.1 Heart transplant status; M48.062 Spinal stenosis, lumbar region with neurogenic claudication; E11.42 Type 2 diabetes mellitus with diabetic polyneuropathy; N40.0 Benign prostatic hyperplasia without lower urinary tract symptoms; I25.10 Atherosclerotic heart disease of native coronary artery without angina pectoris; Z95.1 Presence of aortocoronary bypass graft; Z87.891 Personal history of nicotine dependence; Z79.4 Long term (current) use of insulin; Z79.02 Long term (current) use of antithrombotics/antiplatelets; Z79.52 Long term (current) use of systemic steroids; Z79.82 Long term (current) use of aspirin; Z79.621 Long term (current) use of calcineurin inhibitor; Z79.899 Other long term (current) drug therapy
CPT/HCPCS: 71046; 82947; 86850; 86900; 86901; 97162; 99024; C1713; J0131; J0690; J1100; J1170; J1720; J2405; J2704; J3010; L8699

== ENCOUNTER → 2023-05-15 08:38 | Outpatient (BNV) | payer MEDICARE, SELFPAY | PROVIDERS: Admitting Provider Neurological Surgery; PCP Internal Medicine; Visit Provider Neurological Surgery | DX: M43.16 Spondylolisthesis, lumbar region (principal); M48.062 Spinal stenosis, lumbar region with neurogenic claudication | CPT/HCPCS: 20930; 22558; 22612; 22840; 22853; 99499 ==

== ENCOUNTER 2023-06-08 08:46 | Outpatient (AMB) | payer MEDICARE, SELFPAY ==
--- NOTE | 2023-06-08 09:07 | A.SPINEOV_ITS ---
Intake Intake Visit Reasons: 1st post op Intake Note: Mr. Thompson is here today for his 1st post-op visit. 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 He reports he is satisfied with the surgery and does feel better than he did pre-operatively. The patient reports he is up walking with his walker around and completing the majority of his ADLs. Unfortunately, Tony still reports quite a bit of pain in his low back and anterior thighs. We discussed this alongside his who is helping to manage his medication regimen. I would like Tony to be taking 1000 mg of Tylenol 3 times a day alongside his as-needed oxycodone and his scheduled gabapentin. I encouraged him that he is likely dealing with postoperative inflammation, which should resolve in the coming weeks. No new neurological deficits. Sensation grossly intact. Patient is able to ambulate well with walker, rises from a seated position with assistance. Anterior lateral and posterior incision sites are closed, well healing, with no signs of drainage. We will follow-up with the patient in 6 weeks for his 2nd postoperative visit. At that time we will get x-rays to review with the patient. Matthieu Copeland MD,PhD [facility] Coding Level of Care Code Global (11178) Diagnoses S/P lumbar fusion Z98.1
== END 2023-06-08 09:40 | disposition home or self-care (01) ==
PROVIDERS: PCP Internal Medicine; Visit Provider Physician Assistant
DX: Z98.1 Arthrodesis status (principal)
CPT/HCPCS: 99024

== ENCOUNTER → 2023-06-08 08:46 | Outpatient (BNVA) | payer MEDICARE, SELFPAY | PROVIDERS: PCP Internal Medicine; Visit Provider Physician Assistant | DX: Z47.89 Encounter for other orthopedic aftercare (principal); Z98.1 Arthrodesis status | CPT/HCPCS: 99212 ==

== ENCOUNTER 2023-07-19 09:33 | Outpatient (REF) | payer MEDICARE, SELFPAY | END 2023-07-19 09:34 | disposition home or self-care (01) | LOC: HO.HOSX 09:33 | PROVIDERS: Visit Provider Physician Assistant | DX: Z13.89 Encounter for screening for other disorder (principal) ==

== ENCOUNTER 2023-07-20 10:29 | Outpatient (AMB) | payer MEDICARE, SELFPAY ==
--- NOTE | 2023-07-20 10:40 | HO.SPINEOV ---
Intake Intake Visit Reasons: 2nd post op with xrays Allergies No Known Allergies Allergy (Verified 06/08/23 09:15) Assessment & Plan Assessment & Plan (1) S/P lumbar fusion: Code(s): Z98.1 - Arthrodesis status Plan Procedure: L4-5 OLIF Tony comes in today for his 1st postoperative visit. The patient reports that he continues to ambulate with a walker 90% of the time and has to at the very least use a cane to ambulate the rest of the time. He has done well on the regimen we started him on during his last visit (triple therapy with Tylenol, oxycodone, gabapentin). He states he is slowly feeling better, however still has quite a bit of pain in his low back. We discussed postoperative healing course, and I answered all of his questions to the best of my ability. Additionally, during this visit we reviewed the patient's x-ray imaging, which proved difficult to assess exact placement of instrumentation compared to flouroscopy, possibly due to previous surgery at this area and Coflex device placement. No new neurological deficits. The patient is able to ambulate well and rises from a seated position without difficulty. His incision sites are closed and well healed. I would like to obtain a lumbar CT scan to evalute for exact placement of instrumentation, as he continues to have low back pain and has had multiple types of instrumentation placed in his lumbar spine. As stated above this makes determination of placement compared to fluoroscopy difficult. The patient also requested to be sent to physical therapy, so I completed a referral for him. I will follow up with him after his CT scan. Matthieu Copeland MD,PhD [facility] Orders: Orders XR lumbar spine 4V min Today Z98.1 - Arthrodesis status PT Evaluation and Treatment Today Z98.1 - Arthrodesis status Coding Level of Care Code Global (62475) Diagnoses S/P lumbar fusion Z98.1
== END 2023-07-20 11:24 | disposition home or self-care (01) ==
PROVIDERS: PCP Internal Medicine; Visit Provider Physician Assistant
DX: Z98.1 Arthrodesis status (principal)
CPT/HCPCS: 99024

== ENCOUNTER → 2023-07-20 10:29 | Outpatient (BNVA) | payer MEDICARE, SELFPAY | PROVIDERS: PCP Internal Medicine; Visit Provider Physician Assistant | DX: Z98.1 Arthrodesis status (principal) ==

== ENCOUNTER 2023-07-20 10:34 | Outpatient (REF) | payer MEDICARE, SELFPAY ==
--- NOTE | ~2023-07-20 | XR_ITS ---
EXAMINATION: XR LUMBOSACRAL SPINE WITH OBLIQUES CLINICAL INFORMATION: Lumbar spine arthrodesis COMPARISON: Lumbar spine x-ray on 11/15/2022 TECHNIQUE: AP, both oblique, and lateral views of the lumbar spine. Lateral view of the lumbosacral spine in flexion and extension. FINDINGS: The visualized lumbar vertebrae show minimal anterior L4 on L5 displacement by 0.24 cm, unchanged in flexion, reduced in extension. Intervertebral disc spaces are normal. There is mild 32.2% compression collapse of L5 vertebral body. Posterior L4-L5 spinal fixation with transpedicular screws and vertical bars, L4-L5 fusion with intervertebral spacer are seen. Unchanged posterior L4-L5 spinous processes fixation device is seen. XR/XR lumbar spine 4V min IMPRESSION: 1. Unchanged minimal grade 1 L4-L5 anterolisthesis, unchanged in flexion, reduced in extension. 2. Interval development of Mild 32.2% compression collapse of L5 vertebral body. 3. Interval Posterior L4-L5 spinal fixation with transpedicular screws and vertical bars, L4-L5 fusion with intervertebral spacer in addition to previously placed L4-L5 spinous processes fixation device.
== END 2023-07-20 10:35 | disposition home or self-care (01) ==
LOC: HO.HOSX 10:34
PROVIDERS: Visit Provider Physician Assistant
DX: Z98.1 Arthrodesis status (principal)
CPT/HCPCS: 72110; 99212

== ENCOUNTER 2023-09-20 12:59 | Outpatient (REF) | payer MEDICARE, SELFPAY ==
--- NOTE | ~2023-09-20 | CT_ITS ---
EXAMINATION: CT LUMBAR SPINE WITHOUT CONTRAST CLINICAL INFORMATION: Arthrodesis status COMPARISON: Lumbar spine radiographs on 07/20/2023 TECHNIQUE: Multidetector CT acquisitions of the lumbar spine without administration of intravenous contrast. This CT examination was performed using dose optimization techniques as appropriate, variously including the following: *Automated exposure control *Adjustment of mA and/or kV according to patient size (this includes techniques or standardized protocols for targeted exams where dose is matched to indication/reason for exam; i.e. extremities or head) *Use of iterative reconstruction technique DLP; 764 mGy-cm FINDINGS: Normal alignment. Sequelae of posterior spinal fusion at L4-L5 with interbody spacer. The hardware is intact without fracture. There is a significant lucency surrounding the L4 screw on the left. Several osseous fragments are seen anterior to L5 superior endplate. The remaining vertebral body heights and disc spaces are preserved. Multilevel endplate osteophytosis. Please note that evaluation is limited in the absence of intrathecal contrast. Within these limitations, T12-L1: No significant spinal canal or neural foraminal narrowing. L1-L2: Disc bulge. No significant spinal canal or neural foraminal narrowing. L2-L3: Disc bulge. No significant spinal canal or neural foraminal narrowing. L3-L4: Disc bulge. Suggestion of mild spinal canal stenosis. No significant neural foraminal narrowing. L4-L5: Decompressed spinal canal. No significant residual neural foraminal narrowing. L5-S1: Diffuse disc bulge. Mild left neural foraminal narrowing. The paravertebral soft tissues are unremarkable. Atherosclerotic calcifications of the abdominal aorta and its branches. CT/CT lumbar spine wo IV con IMPRESSION: Sequelae of L4-L5 posterior spinal fusion and interbody spacer. Significant lucency surrounding the left L4 screw most suggestive of loosening. Multilevel degenerative changes as above.
== END 2023-09-20 13:00 | disposition home or self-care (01) ==
LOC: HO.CT 12:59
PROVIDERS: PCP Internal Medicine; Visit Provider Physician Assistant
DX: Z98.1 Arthrodesis status (principal)
CPT/HCPCS: 72132

== ENCOUNTER 2023-10-05 06:52 | Outpatient (REF) | payer MEDICARE, SELFPAY ==
--- NOTE | ~2023-10-05 | XR_ITS ---
EXAMINATION: XR SHOULDER, LEFT CLINICAL INFORMATION: Pain in left shoulder COMPARISON: None available. TECHNIQUE: AP neutral, scapular Y views of the left shoulder. FINDINGS: The bones are intact. No fracture. Glenohumeral and acromioclavicular alignment is anatomic. Limited views suboptimal for evaluation of glenohumeral joint space. No gross narrowing of the glenohumeral joint space. Moderate degenerative change of the acromioclavicular joint.. No abnormal soft tissue calcifications. The patient is status post median sternotomy. XR/XR shoulder LT min 2V IMPRESSION: 1. No acute bony abnormality. 2. Moderate degenerative change of the acromioclavicular joint.
== END 2023-10-05 06:53 | disposition home or self-care (01) ==
LOC: HO.HOSX 06:52
PROVIDERS: Visit Provider Orthopaedic Surgery
DX: M25.512 Pain in left shoulder (principal)
CPT/HCPCS: 20610; 73030; 99212; J1010

== ENCOUNTER 2023-10-05 12:52 | Outpatient (AMB) | payer MEDICARE, SELFPAY ==
[2023-10-05 13:03] VITALS: BMI 31.7
--- NOTE | 2023-10-05 13:03 | A.OFFVIS_ITS ---
Vital Signs 10/05/23 13:03 Height 5 ft 9 in Weight 215 lb BMI 31.7 Intake Visit Reasons: New Problem -Lt Shld Pain Intake Note: Tony is a 73 year old male who presents today with complaints of intermittent left shoulder pain. The patient did undergo right shoulder surgery last year. He reports minimal discomfort in his right shoulder. He describes his left shoulder pain as achy in nature. Denies any weakness. He has taken Tylenol which gives him only mild relief. He has not had a cortisone injection. He has done physical therapy exercises which aggravated his pain. Allergies No Known Allergies Allergy (Verified 10/05/23 13:04) Medication List - Last Reconciled 10/05/23 by Nirmal Gutierres MD amlodipine 10 mg PO QAM aspirin 81 mg PO QAM cholecalciferol (vitamin D3) (Vitamin D3) 25 mcg PO QAM clopidogrel 75 mg PO QAM cyanocobalamin (vitamin B-12) (Vitamin B-12) 1,000 mcg PO QAM dulaglutide (Trulicity) 1.5 mg subcut QWEEK duloxetine 40 mg PO BEDTIME fludrocortisone 0.1 mg PO QAM gabapentin 300 mg PO TID insulin degludec (Tresiba FlexTouch U-200 insulin) 25 units subcut QAM insulin degludec (Tresiba FlexTouch U-200 insulin) 20 units subcut BEDTIME insulin lispro (Humalog U-100 Insulin) 10 - 20 units subcut TIDAC magnesium oxide 400 mg PO BID mycophenolate sodium 360 mg PO BID oxycodone 5 mg PO BID PRN pantoprazole 40 mg PO BID pen needle, diabetic (BD Ultra-Fine Short Pen Needle) As directed prednisone 5 mg PO QAM rosuvastatin 20 mg PO BEDTIME tacrolimus 0.5 mg PO BEDTIME tacrolimus 2 mg PO BID trazodone 200 mg PO BEDTIME PRN valsartan 160 mg PO QAM [facility] Medical History Pneumonia Cataract Amputation of toe Hx of thrombosis History of positive PPD Erosive gastropathy Colon polyp Erectile dysfunction Microscopic hematuria Immunosuppressed status Unsteady gait Ischemic cardiomyopathy DAY (generalized anxiety disorder) Dyslipidemia CHD (congenital heart disease) Chronic kidney disease Sleep apnea Headache Left foot drop Back pain Depression Osteopenia Dry eye Tremor Dysautonomia Insomnia Neck pain Presbyesophagus Esophageal dysmotility BPH (benign prostatic hyperplasia) Hyperparathyroidism Guillain-[place] syndrome Leukopenia Neuropathy PVD (peripheral vascular disease) Myocardial infarction Cellulitis History of COVID-19 Hx MRSA infection Diabetes Hx of deep venous thrombosis Immune disorder High cholesterol High blood pressure Acid reflux Surgical History Hx of shoulder surgery Hx of squamous cell carcinoma excision Hx of cataract surgery Status post arterial stent History of esophagogastroduodenoscopy (EGD) H/O angioplasty AICD (automatic cardioverter/defibrillator) present History of lumbar fusion Hx of cervical spine surgery History of left ventricular assist device (LVAD) Hx of CABG Hx of heart transplant Social History Household Members: Spouse Housing: House Are you a primary home health care provider to a significant other at home: No Do you presently have visiting nurse or other home services: No Comment: counts correct Patient Tobacco Use Status: Former Tobacco user Tobacco use type: Cigarette Years Smoked: 20 service: No Current occupational status: disabled 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 Physical Exam Vital Signs: BMI result Body Mass Index 31.7 Const Other: Well-nourished well-developed very friendly male awake alert and oriented x3 in no acute distress Extrem Other: Bilateral upper extremity examination shows good capillary refill, no skin lesions noted, normal sensation light touch Left shoulder examination shows slightly decreased range of motion when compared to his right shoulder, 4+ out of 5 strength with supraspinatus testing, positive impingement signs, no instability Office Procedures Joint Injection/Drain Joint Injection/Drain Primary Site: left shoulder Prep: site was prepped using aseptic technique Injected: 40 mg of, DepoMedrol and 1% plain lidocaine Procedure: The patient tolerated the procedure well Coding 24494 - Large joint Procedure code (CPT) selection complete Results Reviewed Results Reviewed: X-rays of the patient's left shoulder show severe acromioclavicular joint narrowing, a type 2 acromion, no acute bony abnormalities Assessment & Plan Assessment & Plan (1) Left shoulder pain: Code(s): M25.512 - Pain in left shoulder Category: Medical Plan Mr. Thompson presents with left shoulder pain due to impingement syndrome. I had a lengthy discussion with the patient regarding the treatment options. The risks and benefits of a left shoulder cortisone injection were discussed length with the patient. The patient wished to proceed with the injection. He tolerated the injection well. Will continue with his home stretching program to prevent stiffness. The do's and don'ts of lifting were discussed at length with the patient. Will follow up with me on an as-needed basis should his symptoms not plateau at an unacceptable level over the next few months. Feel free to call me at any time should questions regarding his orthopedic management arise. I spent 22 minutes in reviewing the patient's records and imaging studies, seeing the patient and documenting in the medical record. Orders: Orders XR shoulder LT min 2V Today M25.512 - Pain in left shoulder AMB Joint Injection/Aspiration Today M25.512 - Pain in left shoulder Coding Level of Care Code Est Pt Level 3 (34723) Diagnoses Left shoulder pain M25.512 CPT Codes Coding - 71662 Large joint: 71271 - Large joint ([id number])
== END 2023-10-05 13:30 | disposition home or self-care (01) ==
PROVIDERS: PCP Internal Medicine; Visit Provider Orthopaedic Surgery
DX: M25.512 Pain in left shoulder (principal)
CPT/HCPCS: 20610; 99213

== ENCOUNTER 2023-11-03 10:55 | Outpatient (AMB) | payer MEDICARE, SELFPAY ==
--- NOTE | 2023-11-03 11:45 | HO.SPINEOV ---
Intake Visit Reasons: follow up Intake Note: Mr. Thompson is here today to follow up CT Scan. Producer Assistant Required: No Allergies No Known Allergies Allergy (Verified 10/05/23 13:04) Coding
--- NOTE | 2023-11-03 11:53 | HO.SPINEOV ---
Intake Visit Reasons: follow up Allergies No Known Allergies Allergy (Verified 10/05/23 13:04) Assessment & Plan Assessment & Plan (1) S/P lumbar fusion: Code(s): Z98.1 - Arthrodesis status Category: Medical Plan Dear colleague, On 11/03/2023, I saw for follow-up Tony Thompson. He underwent a correction of his lumbar spondylolisthesis in April 2023 for symptoms of neurogenic claudication. Unfortunately, the surgery has not improved his symptoms. In the meantime imaging shows loosening of one of the screws. Last month he fell and since that time he has severe right-sided back pain. No imaging was performed. On exam, there is palpation in the right para coccygeal area. He ambulates with a walker in a flexed position. Repeat imaging show stable L4-5 construct. No acute fractures. We we had a lengthy discussion about his ongoing back pain. This surgery never improve the symptoms and therefore I think a revision surgery is not appropriate other than to make the x-ray look good. I will follow-up with the patient in 3 months to see how the construct is behaving. Last Copeland MD, PhD Spine Fellowship Trained Neurosurgeon Director, [facility] [employer] Orders: Orders XR lumbar spine 4V min Today Z98.1 - Arthrodesis status Coding Level of Care Code Est Pt Level 3 (56225) Diagnoses S/P lumbar fusion Z98.1
== END 2023-11-03 13:00 | disposition home or self-care (01) ==
PROVIDERS: PCP Internal Medicine; Visit Provider Neurological Surgery
DX: Z98.1 Arthrodesis status (principal)
CPT/HCPCS: 99213

== ENCOUNTER 2023-11-03 10:55 | Outpatient (REF) | payer MEDICARE, SELFPAY ==
--- NOTE | ~2023-11-03 | XR_ITS ---
EXAMINATION: XR LUMBOSACRAL SPINE WITH OBLIQUES CLINICAL INFORMATION: Arthrodesis COMPARISON: CT lumbar spine September 20, 2023 and lumbar spine x-rays July 20, 2023 TECHNIQUE: 4 views of the lumbar spine were obtained. FINDINGS: Patient is status post posterior decompression and fusion of L4 and L5 with associated intravertebral disc spacer. Hardware is unremarkable. There is stable mild anterolisthesis of L4 on L5 which is unchanged with flexion and slightly less prominent with extension positioning. There is similar mild decrease of L5 vertebral body height. Vascular calcifications noted. XR/XR lumbar spine 4V min IMPRESSION: 1. Postsurgical changes of the lower lumbar spine. 2. Stable mild anterolisthesis of L4 on L5.
== END 2023-11-03 10:56 | disposition home or self-care (01) ==
LOC: HO.HOSX 10:55
PROVIDERS: PCP Internal Medicine; Visit Provider Neurological Surgery
DX: Z47.89 Encounter for other orthopedic aftercare (principal); Z98.1 Arthrodesis status
CPT/HCPCS: 72110; 99212

== ENCOUNTER 2024-02-07 13:08 | Outpatient (AMB) | payer MEDICARE, SELFPAY ==
--- NOTE | 2024-02-07 13:34 | HO.SPINEOV ---
Intake Visit Reasons: 3 month follow up Intake Note: Mr. Thompson is here today for a 3 month F/u with x-rays. Parquet Floor Layer'S Helper Required: No Allergies No Known Allergies Allergy (Verified 02/07/24 13:34) Assessment & Plan Assessment & Plan (1) Low back pain: Code(s): M54.50 - Low back pain, unspecified Category: Medical Qualifiers: Chronicity: chronic Back pain laterality: midline Sciatica presence: without sciatica Qualified Code(s): M54.50 - Low back pain, unspecified; G89.29 - Other chronic pain Plan Dear colleague, On February 07, 2024, I saw for follow-up Tony Thompson. He is status post L4-5 minimally invasive lumbar fusion in April 2023 to correct a L4-5 spondylolisthesis. This surgery did improve the pain down the legs and he can walk longer distances. However he still complains of a significant amount of back pain and on exam is very painful to palpate in the L4-5 area. I am wondering if the coflex is responsible for the ongoing back pain. I recommended removal of the coflex device. He is scheduled to undergo a vascular procedure on February 18. He will call my office if he wants to proceed. I told him to wait at least 3 months after the vascular procedure. I spent 20 minutes in his consult to review imaging and to discuss plan of care. Last Copeland MD, PhD Spine Fellowship Trained Neurosurgeon Director, [facility] Orders: Orders XR lumbar spine 4V min Today Z98.1 - Arthrodesis status Coding Level of Care Code Est Pt Level 3 (47957) Diagnoses Chronic midline low back pain without sciatica M54.50; G89.29 Chronicity: chronic Back pain laterality: midline Sciatica presence: without sciatica
== END 2024-02-07 14:06 | disposition home or self-care (01) ==
PROVIDERS: PCP Internal Medicine; Visit Provider Neurological Surgery
DX: M54.50 Low back pain, unspecified (principal); G89.29 Other chronic pain
CPT/HCPCS: 99213

== ENCOUNTER 2024-02-07 13:08 | Outpatient (REF) | payer MEDICARE, SELFPAY | END 2024-02-07 13:09 | disposition home or self-care (01) | LOC: HO.HOSX 13:08 | PROVIDERS: PCP Internal Medicine; Visit Provider Neurological Surgery | DX: M54.50 Low back pain, unspecified (principal); G89.29 Other chronic pain; Z98.1 Arthrodesis status | CPT/HCPCS: 72110; 99212 ==

== ENCOUNTER 2024-05-23 08:49 | Day surgery (SDC) | payer MEDICARE, SELFPAY ==
[2024-05-09 10:17] VITALS: BMI 30.5
[2024-05-09 10:24] VITALS: BP 103/55; PULSE 92; RESP 20; O2SAT 99
[2024-05-23] VITALS (10 sets, daily range): BP systolic 125–155; BP diastolic 64–81; PULSE 78–85; RESP 12–16; TEMP 36.3–36.7; O2SAT 94–100
--- NOTE | ~2024-05-23 | FL_ITS ---
EXAMINATION: FL GUIDANCE ONLY HISTORY: Removal of Coflex device COMPARISON: Correlation is made to plain films of the lumbar spine dated 02/07/2024. TECHNIQUE: Fluoroscopy time: Less than 1 minute. Cumulative Dose: 0.0793 mGy. DAP: 0.0216 mGym2 Images: 1. FINDINGS: A single fluoroscopic spot film of the lumbar spine in the AP projection again demonstrates posterior fusion of L4 and L5. A needle is seen projecting to the right of midline at this level. FL/FL guidance in OR IMPRESSION: Fluoroscopy during procedure. Please see procedure report for additional information. Electronically signed by: Hilario Nash MD 05/23/2024 12:56 PM [facility]
--- OUTSIDE RECORDS SUMMARY | 2024-05-23 09:07 | XMS_ITS | Clinical Summary ---
Author Organization [facility] Address [address] [place] [address] Care Team Providers Care Associate Professor Of Library Science Name Role Phone Dung Chen MD Primary Care Provider [phone] Immunizations Name Administration Dates Next Due Pfizer SARS-CoV-2 COVID-19, mRNA, LNP-S, preservative free 06/13/2020,05/17/2020 Surgical History Surgery Date Site/Laterality Comments CORONARY ARTERY BYPASS GRAFT 1997 PROCEDURE: HISTORICAL CABG OTHER SURGICAL HISTORY 10/07/2011 PROCEDURE: ---- OTHER ----; COMMENT: teeth extracted OTHER SURGICAL HISTORY 01/2012 PROCEDURE: ---- OTHER ----; COMMENT: LVAD OTHER SURGICAL HISTORY 04/17/2013 PROCEDURE: AR HEART TRANSPLANT W/WO RECIPIENT CARDIECTOMY CATARACT EXTRACTION 09/18/2014 Right PROCEDURE: HISTORICAL CATARACT REMOVAL FLEXIBLE SIGMOIDOSCOPY 05/26/2008 PROCEDURE: HISTORICAL FLEXIBLE SIGMOIDOSCOPY; COMMENT: Negative to 50 cm COLONOSCOPY 10/03/2016 PROCEDURE: HISTORICAL COLONOSCOPY; COMMENT: 5 mm right colon polyp, random biopsies: Small tubular adenoma; random biopsies normal. UPPER GASTROINTESTINAL ENDOSCOPY 10/03/2016 PROCEDURE: AR UPPER GI ENDOSCOPY PERFORMED; COMMENT: Visually normal; random duodenal biopsies: normal. OTHER SURGICAL HISTORY 08/02, 08/03 Left PROCEDURE: ---- OTHER ----; COMMENT: popliteal stent placement NECK SURGERY 12/10/2019 PROCEDURE: HISTORICAL NECK SURGERY BACK SURGERY 09/21/2020 PROCEDURE: HISTORICAL BACK SURGERY OTHER SURGICAL HISTORY PROCEDURE: HISTORICAL CA SQUAMOUS CELL CORONARY ARTERY BYPASS GRAFT PROCEDURE:CORONARY ARTERY BYPASS GRAFT HEART TRANSPLANT PROCEDURE:HEART TRANSPLANT Medical History Medical History Date Comments Coronary atherosclerosis of artery bypass graft 06/21/2005 DX:Coronary atherosclerosis of artery bypass graft Other primary cardiomyopathies 06/21/2005 D X:Other primary cardiomyopathies Cardiac pacemaker in situ 06/21/2005 DX:Car diac pacemaker in situ Pure hypercholesterolemia 06/21/2005 DX:Pur e hypercholesterolemia Psychosexual dysfunction, unspecified 06/21/2005 DX:Psychosexual dysfunction, unspecified Tuberculin test reaction 03/07/2006 DX:Tube rculin test reaction Special screening for malign ant neoplasms, colon 05/26/2008 DX:Special screening for mal ignant neoplasms, colon; COMMENT: Negative flexible sigmoidoscopy to 50 cm on 05/26/2008. Esophageal reflux 06/21/2005 DX:Esophageal reflux C. difficile diarrhea 05/24/2012 DX:C. diff icile diarrhea Glaucoma suspect 07/15/2013 DX:Glaucoma marcela pect Type 2 diabetes mellitus wit h cataract (CMS/HCC) 09/15/2014 DX:Type 2 diabetes mellitus with cataract (HCC) Diabetic neuropathy (CMS/HCC) 10/11/2010 DX :Diabetic neuropathy (HCC); COMMENT: Polyneuropathy on EMG 2009 DM (diabetes mellitus), type 2 with renal complications (CMS/HCC) 05/04/2016 DX:DM (diabetes mellitus ), type 2 with renal complications (HCC) 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 complication (CMS/HCC) 05/04/2016 DX:Type 2 diabetes m ellitus with neurologic complication (HCC) Diabetes mellitus (CMS/HCC) DX:D iabetes mellitus (HCC) Heart disease DX:Heart disease Family History Medical History Relation Name Comments Prostate cancer Brother 1 Cataracts Mother Hypertension Mother Macular degeneration Mother Blindness Neg Hx Glaucoma Neg Hx Strabismus Neg Hx Relation Name Status Comments Brother 1 Alive prostate cancer Brother 2 Alive Father Alive cancer lymphoma Mother Social History Tobacco Use Types Packs/Day Years Used Date Smoking Tobacco: Never Assessed Cigarettes 20 24.9 09/30/1972 - Alcohol Use Standard Drinks/Week Comments No 0 (1 standard drink = 0.6 oz pur e alcohol) Sex and Gender Information Value Date Recorded Sex Assigned at Not on file Gender Identity Not on file Sexual Orientation Not on file Obstetrics History Last Filed Vital Signs Vital Sign Reading Time Taken Comments Blood Pressure 134/85 07/22/2021 10:34 AM EDT Pulse 90 07/22/2021 10:34 AM EDT Temperature - - Respiratory Rate - - Oxygen Saturation - - Inhaled Oxygen Concentration - - Weight 90.7 kg (200 lb) 11/16/2021 2:21 PM EDT Height 175.3 cm (5' 9 ) 11/16/2021 2:21 PM EDT Body Mass Index 29.53 11/16/2021 2:21 PM EDT Plan of Treatment Health Maintenance Due Date Last Done Comments Diabetes: Annual GFR (Glomerular Filtration Rate) 1951 Diabetes: Annual Foot Exam 09/30/1961 Diabetes: Annual Retina Eye Exam 09/30/1961 Zoster Vaccines (1 of 2) 09/30/1970 RSV Immunization Patients 60+ Years Old (1 - Risk 60-74 years 1-dose series) 2011 Hepatitis B Vaccines (2 of 3 - 19+ 3-dose series) 04/24/2012 03/27/2012 Pneumococcal Vaccine: 65+ Years (3 of 3 - PCV) 01/23/2013 01/24/2012, 03/02/2004 COVID-19 Vaccine (3 - Pfizer risk series) 07/11/2020 06/13/2020, 05/17/2020 Abdominal Aortic Aneurysm (AAA) Screen 03/23/2022 Cholesterol Screening (Lipid Panel) 03/23/2022 Colorectal Cancer Screening: Colonoscopy 03/23/2022 Depression Screening 03/23/2022 Falls Risk Assessment 03/23/2022 Hepatitis C Screening 03/23/2022 Medicare Annual Wellness Visit 03/23/2022 Social Influencers of Health Screening 03/23/2022 DTaP,Tdap,and Td Vaccines (2 - Td or Tdap) 03/27/2022 03/27/2012 Diabetes: Annual Urine Albumin-Creatinine Ratio (uACR) 03/31/2022 Diabetes: Blood Sugar Control Test (HGBA1C) 03/31/2022 Influenza Vaccine (#1) 2023 2, 01/13/2020, 02/06/2019, Additional history exists Hepatitis A Vaccines Aged Out 03/27/2012 No long er eligible based on patient's age to complete this topic HIB Vaccines Aged Out No longer eligi ble based on patient's age to complete this topic HPV Vaccines Aged Out No longer eligi ble based on patient's age to complete this topic IPV Vaccines Aged Out No longer eligi ble based on patient's age to complete this topic MMR Vaccines Aged Out No longer eligi ble based on patient's age to complete this topic Meningococcal ACWY Vaccine Aged Out N o longer eligible based on patient's age to complete this topic RSV Immunization Patients Under 20 months Aged Out No longer eligible based on patient's age to complete this topic Varicella Vaccines Aged Out No longer eligible based on patient's age to complete this topic Advance Directives Documents on File Type Date Recorded 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 Health Care Decision (hx) 05/16/2023 HE ALTH CARE PROXY Health Care Decision (hx) 09/23/2020 AD PIERCE DIRECTIVE Health Care Decision (hx) 09/23/2020 AD PIERCE DIRECTIVE Health Care Decision (hx) 09/23/2020 AD PIERCE DIRECTIVE Health Care Decision (hx) 09/23/2020 AD PIERCE DIRECTIVE Health Care Decision (hx) 09/23/2020 AD PIERCE DIRECTIVE Health Care Decision (hx) 09/23/2020 AD PIERCE DIRECTIVE Health Care Decision (hx) 09/23/2020 AD PIERCE DIRECTIVE Health Care Decision (hx) 09/23/2020 AD PIERCE DIRECTIVE Health Care Decision (hx) 09/23/2020 AD PIERCE DIRECTIVE Health Care Decision (hx) 09/23/2020 AD PIERCE DIRECTIVE Health Care Decision (hx) 09/23/2020 AD PIERCE DIRECTIVE Health Care Decision (hx) 09/23/2020 AD PIERCE DIRECTIVE Health Care Decision (hx) 09/23/2020 AD PIERCE DIRECTIVE Health Care Decision (hx) 09/23/2020 AD PIERCE DIRECTIVE Health Care Decision (hx) 09/23/2020 AD PIERCE DIRECTIVE Health Care Decision (hx) 09/23/2020 AD PIERCE DIRECTIVE Health Care Decision (hx) 09/23/2020 AD PIERCE DIRECTIVE Health Care Decision (hx) 09/23/2020 AD PIERCE DIRECTIVE Health Care Decision (hx) 09/23/2020 AD PIERCE DIRECTIVE Health Care Decision (hx) 09/23/2020 AD PIERCE DIRECTIVE Health Care Decision (hx) 09/23/2020 AD PIERCE DIRECTIVE Health Care Decision (hx) 09/23/2020 AD PIERCE DIRECTIVE Care Teams Associate Professor Of Library Science Relationship Specialty Start Date End Date Dung Chen MD PCP - General Internal Medicine 04/11/19
--- OUTSIDE RECORDS SUMMARY | 2024-05-23 09:07 | XMS_ITS | Clinical Summary ---
Author Organization [facility], Address [address] [place] [address] [place] [address] Phone Care Team Providers Care Braided Rug Maker Name Role Phone Dung Chen MD Primary Care Provider [phone] Active Problems Problem Noted Date Diagnosed Date Coronary arteriosclerosis 06/28/2021 Generalized ischemic myocardial dysfunction 06/15 Hypokalemia 06/28/2021 Hypomagnesemia 06/28/2021 Heart transplant status 06/28/2021 Candidiasis of the esophagus 06/28/2021 Social History Tobacco Use Types Packs/Day Years Used Date Smoking Tobacco: Never Assessed Sex and Gender Information Value Date Recorded Sex Assigned at Not on file Legal Sex Male 5:03 PM EST Gender Identity Not on file Sexual Orientation Not on file Plan of Treatment Upcoming Encounters Date Type Department Care Team (Late st Contact Info) Description 06/26/2024 4:00 PM EDT Office Visit [facility], [address] [place] [address] Julian Paris MD [address] [place] [address] [place] [phone] Health Maintenance Due Date Last Done Comments Colorectal Cancer Screening: Annual FOBT 09/30/2000 Colorectal Cancer Screening: Colonoscopy 09/30/2000 Colorectal Cancer Screening: Sigmoidoscopy 09/30/2000 Pneumococcal Vaccine: 65+ Years (2 of 2 - PCV) 07/14/2005 07/14/2004 Influenza Vaccine (#1) 2023 9, 02/13/2018, 03/02/2017, Additional history exists Hepatitis B Vaccine Aged Out No longe r eligible based on patient's age to complete this topic Insurance MEDICARE [facility] MEDICARE [facility] MEDICARE [facility] Care Teams Braided Rug Maker Relationship Specialty Start Date End Date Dung Chen MD [address] [place] [address] PCP - General Internal Medicine 01/23/24
--- OUTSIDE RECORDS SUMMARY | 2024-05-23 09:07 | XMS_ITS | Encounter Summary ---
Author Organization [facility] Address [address] [place] [address] Phone Care Team Providers Care College Service Officer Name Role Phone Dung Chen MD Primary Care Provider [phone] Encounter Details Date Type Department Care Team (Late st Contact Info) Description 01/23/2024 Documentation Only [facility] [address] [place] [address] Lela Mtz [address] [place] [phone] Social History Tobacco Use Types Packs/Day Years Used Date Smoking Tobacco: Never Assessed Sex and Gender Information Value Date Recorded Sex Assigned at Not on file Legal Sex Male 5:03 PM EST Gender Identity Not on file Sexual Orientation Not on file documented as of this encounter Plan of Treatment Upcoming Encounters Date Type Department Care Team (Late st Contact Info) Description 06/26/2024 4:00 PM EDT Office [facility] [address] [place] [address] Julian Paris MD [address] [place] [address] [place] [address] documented as of this encounter Visit Diagnoses Not on filedocumented in this encounter Care Teams College Service Officer Relationship Specialty Start Date End Date Dung Chen MD [address] [place], [place] [id number] PCP - General Internal Medicine 01/23/24 documented as of this encounter
--- OUTSIDE RECORDS SUMMARY | 2024-05-23 09:07 | XMS_ITS | Clinical Summary ---
Author Organization [facility] Address [address] [place] [address] Care Team Providers Care Flamer Sealer Name Role Phone Dung Chen MD Primary Care Provider [phone] Allergies No known active allergies Medications Medication Sig Dispensed Refills Start Date End Date Status insulin glargine (LANTUS) injection 100 units/mL Inject under the skin every night at bedtime. 0 Active rosuvastatin (CRESTOR) tablet 20 mg Take 20 mg by mouth daily. 0 Active predniSONE (DELTASONE) 5 mg tablet Take by mouth. 0 Active insulin lispro (HumaLOG) injection 100 units/mL Inject under the skin 3 (three) times a day before meals. 0 Active traZODone (DESYREL) 100 MG tablet Take 100 mg by mouth every night at bedtime. 0 Active mycophenolate (MYFORTIC) 360 MG TBEC Take 360 mg by mouth 2 (two) times a day. 0 Active tacrolimus (PROGRAF) 1 MG capsule Take 1 mg by mouth 2 (two) times a day. 0 Active DULoxetine (CYMBALTA) DR capsule 30 mg Take 30 mg by mouth daily. 0 Active aspirin 81 MG chewable tablet Chew 81 mg by mouth daily. 0 Active propranolol (INDERAL) 20 MG tablet 0 04/04/2019 Active fluticasone (FLONASE) 50 MCG/ACT nasal spray 2 sprays to each nostril daily 0 06/07/2019 Active ipratropium (ATROVENT) 0.03 % nasal spray SPRAY 2 SPRAY INTO BOTH NOSTRILS THREE TIMES A DAY 0 06/25/2019 Active diazePAM (VALIUM) tablet 5 mg Take 1 tab two hours before MRI; Repeat X 1 tab thirty minutes before MRI 2 tablet 0 10/30/2019 Active Additional Information Patient not taking.Reason: Other, Reported on 03/15/2022 gabapentin (NEURONTIN) 300 MG capsule Take 300 mg by mouth 3 (three) times a day. 0 06/29/2020 Active Insulin Degludec (Tresiba) 100 UNIT/ML SOLN Inject under the skin. 0 07/22/2021 Active tamsulosin (FLOMAX) 0.4 MG CAPS Take 0.4 mg by mouth. 0 08/05/2021 Active amLODIPine (NORVASC) tablet 5 mg Take 1 tablet (5 mg total) by mouth daily. 0 05/03/2022 Active Active Problems Problem Noted Date Diagnosed Date Shoulder impingement, right 04/30/2019 Family History Medical History Relation Name Comments Hypertension Mother Relation Name Status Comments Mother Social History Tobacco Use Types Packs/Day Years Used Date Smoking Tobacco: Never Assessed Sex and Gender Information Value Date Recorded Sex Assigned at Not on file Gender Identity Not on file Sexual Orientation Not on file Job Start Date Occupation Industry Not on file Not on file Not on file Last Filed Vital Signs Vital Sign Reading Time Taken Comments Blood Pressure - - Pulse - - Temperature - - Respiratory Rate - - Oxygen Saturation - - Inhaled Oxygen Concentration - - Weight 90.7 kg (200 lb) 11/16/2021 2:21 PM EDT Height 175.3 cm (5' 9 ) 11/16/2021 2:21 PM EDT Body Mass Index 29.53 11/16/2021 2:21 PM EDT Plan of Treatment Health Maintenance Due Date Last Done Comments Hepatitis C Screening 1950 Depression Screening 1963 Preventative Health Evaluation 09/30/1969 Shingrix-Zoster Vaccine (1 of 2) 09/30/1970 Colon Cancer Screening (Colonoscopy) 09/30/1996 RSV Adult > 60+ Yrs or (1 - Risk 60-74 years 1-dose series) 2011 Pneumococcal Vaccine (3 of 3 - PCV) 01/23/2013 01/24/2012, 07/14/2004, 03/02/2004 Fall Risk Assessment 09/30/2016 DTap / Tdap / Td (2 - Td or Tdap) 03/27/2022 03/27/2012, 08/31/2004 COVID-19 Vaccine ( season) 2023 07/18/2021, 01/15/2021, 06/13/2020, Additional history exists Influenza Vaccine (#1) 2023 , 01/07/2021, 01/13/2020, Additional history exists Hepatitis B Vaccines Aged Out No long er eligible based on patient's age to complete this topic RSV Ped < 20 months Aged Out No longe r eligible based on patient's age to complete this topic Care Teams Flamer Sealer Relationship Specialty Start Date End Date Dung Chen MD [address] [place] [address] PCP - General Internal Medicine 04/11/19
[2024-05-23] MEDS: Lactated Ringers 1,000 ML 100 ML IVCONT (09:58)
[2024-05-23] MEDS: methocarbamoL 750 MG TABLET PO (10:05)
[2024-05-23] MEDS: Gabapentin 300 MG CAPSULE PO (10:05)
--- NOTE | 2024-05-23 10:15 | MHC.SHP ---
Pre-Procedural Eval Section A - 24 Hr Update-Section A only Date of Service: 05/23/24 The patient is an INPATIENT: No Section B - Complete if H&P > 30 days Chief Complaint: Low back pain, unspecified Details of Present Illness: Hardware failure Allergies: Allergies Allergy/AdvReac Type Severity Reaction Status Date / Time No Known Allergies Allergy Verified 02/07/24 13:34 Review of Systems Sugical H&P ROS: Negative: Constitution, Cardiovascular, Respiratory, Neurological, Psychiatric, Hem-Onc, Allergic/Immunologic, Gastrointestinal, Genitourinary, Musculoskeletal, Integumentary, Endocrine and Eyes/Ears/Nose/Throat Exam Surgical H&P Exam: Normal: HEENT, Normal: Heart, Normal: Lungs, Normal: Extremities, Normal: Abdomen, Normal: Skin and Normal: Neurological (Awake, alert) Plan Diagnosis/Plan: Unchanged I have reviewed the history and physical and performed a pertinent physical examination on my patient. No changes have occurred unless specified. Removal coflex device Time Spent With Patient Time: Total time managing care of this patient today __5__ minutes.
[2024-05-23 10:18] LABS: Glucose, Whole Blood 139 mg/dL (60-115)
--- NOTE | 2024-05-23 10:23 | P.CONAN_ITS ---
Documented by User: Maribell Nielsen NP 05/14/24 12:41 HPI - Anesthesia Eval Consult details Narrative: 73yo M for?Removal of Coflex Device, 05/23/24 s/p L4-5, OLIF (Transkambin Lumbar Interbody Fusion), 05/15/23 with GA-ETT 7 s/p Right Shoulder Arthroscopy, etc 01/2023 with GA-ETT 7 and block Heart transplant 2012 for ischemic cardiomyopathy. Prednisone 5mg daily, prograf, myfortic for immunsuppression. Last cardiology office visit 12/2023. Stable Plavix for s/p LLE stent 02/2024 and hx LLE DVT 08/2022 - on hold No recent illness No CP/SOB within limits of pain FBS ~ 100 ARNULFO but pt denies Anesthesia Pre-Procedure Meds Is the patient on any of the following meds?: GLP1/DPP4 PMFSH Active Problems Active Problems: All Active Problems (Updated 02/07/24 @ 14:19 by Last Copeland MD, PhD) Left shoulder pain (Acute) S/P lumbar fusion (Acute) Right shoulder pain (Acute) Impingement of right shoulder (Acute) Diabetes (Acute) Lumbar stenosis (Acute) Low back pain (Acute) Past Medical History Medical History (Updated 02/07/24 @ 14:19 by Last Copeland MD, PhD) Pneumonia Cataract Amputation of toe Hx of thrombosis History of positive PPD Erosive gastropathy Colon polyp Erectile dysfunction Microscopic hematuria Immunosuppressed status Unsteady gait Ischemic cardiomyopathy DAY (generalized anxiety disorder) Dyslipidemia CHD (congenital heart disease) Chronic kidney disease Sleep apnea Headache Left foot drop Back pain Depression Osteopenia Dry eye Tremor Dysautonomia Insomnia Neck pain Presbyesophagus Esophageal dysmotility BPH (benign prostatic hyperplasia) Hyperparathyroidism Guillain-Wynne syndrome Leukopenia Neuropathy PVD (peripheral vascular disease) Myocardial infarction Cellulitis History of COVID-19 Hx MRSA infection Diabetes Hx of deep venous thrombosis Immune disorder High cholesterol High blood pressure Acid reflux Family History Family history of problems with anesthesia: No Surgical History Surgical History (Updated 05/09/24 @ 10:42 by Brandi Scott RN) History of surgery on lower extremity Hx of shoulder surgery Hx of squamous cell carcinoma excision Hx of cataract surgery Status post arterial stent History of esophagogastroduodenoscopy (EGD) H/O angioplasty AICD (automatic cardioverter/defibrillator) present History of lumbar fusion Hx of cervical spine surgery History of left ventricular assist device (LVAD) Hx of CABG Hx of heart transplant History of Problems with Anesthesia: No Social History Social History Household Members: Spouse Housing: House Are you a primary home health caregiver to a significant other at home: No Do you presently have visiting nurse or other home services: No Comment: counts correct Patient Tobacco Use Status: Former Tobacco user Tobacco use type: Cigarette Years Smoked: 25 Use of substances other than those prescribed or required for medical reasons: No Substance Use Type Other:: gummies at bedtime-advised to hold 3-5 days pre-op Substance Use Frequency: Daily Have you been hit, kicked, punched, or otherwise hurt by someone within the past year? 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 Meds Allergies Allergy/AdvReac Type Severity Reaction Status Date / Time No Known Allergies Allergy Verified 02/07/24 13:34 Home Medications ?Medication ?Instructions ?Recorded ?Confirmed ?Last Taken ?Type amlodipine 5 mg tablet 5 mg PO QAM 10/07/22 05/09/24 05/23/24 History duloxetine 20 mg capsule,delayed 40 mg PO BEDTIME 10/07/22 05/09/24 05/22/24 History release gabapentin 300 mg capsule 600 mg PO TID 10/07/22 05/09/24 05/22/24 History insulin lispro 100 unit/mL 10 - 20 unit subcut TIDAC 10/07/22 05/09/24 05/14/23 10:00 History subcutaneous cartridge (Humalog 8 units U-100 Insulin) mycophenolate sodium 360 mg 360 mg PO BID 10/07/22 05/09/24 05/22/24 History tablet,delayed release pantoprazole 40 mg tablet,delayed 40 mg PO QAM 10/07/22 05/09/24 05/23/24 History release pen needle, diabetic 31 gauge x #1,200 ea 10/07/22 10/05/23 Unknown History 08/30 (BD Ultra-Fine Short Pen Needle) prednisone 5 mg tablet 5 mg PO QAM 10/07/22 05/09/24 05/23/24 History rosuvastatin 20 mg tablet 20 mg PO BEDTIME 10/07/22 05/09/24 05/22/24 History trazodone 100 mg tablet 200 mg PO BEDTIME PRN Insomnia 10/07/22 05/09/24 05/22/24 History aspirin 81 mg tablet,delayed 81 mg PO QAM 02/07/23 05/09/24 05/22/24 History release clopidogrel 75 mg tablet 75 mg PO QAM 02/07/23 05/09/24 05/17/24 History insulin degludec 200 unit/mL (3 4 unit subcut QAM 02/07/23 05/09/24 05/22/24 History mL) subcutaneous pen (Tresiba FlexTouch U-200 insulin) cholecalciferol (vitamin D3) 25 25 mcg PO QAM 05/01/23 05/09/24 05/22/24 History mcg (1,000 unit) capsule (Vitamin D3) cyanocobalamin (vitamin B-12) 1,000 mcg PO QAM 05/01/23 05/09/24 05/22/24 History 1,000 mcg tablet (Vitamin B-12) insulin degludec 200 unit/mL (3 4 unit subcut BEDTIME 05/01/23 05/09/24 05/22/24 History mL) subcutaneous pen (Tresiba FlexTouch U-200 insulin) carvedilol 3.125 mg tablet 3.125 mg PO BID 05/09/24 05/09/24 05/23/24 History dulaglutide 4.5 mg/0.5 mL 4.5 mg subcut QWEEK 05/09/24 05/09/24 05/15/24 History subcutaneous pen injector (Trulicity) tacrolimus 1 mg capsule, 3 mg PO BID 05/09/24 05/09/24 05/23/24 History immediate-release valsartan 320 mg tablet 320 mg PO QAM 05/09/24 05/09/24 05/22/24 History Exam Height,Weight and Vital Signs: Height 5 ft 8.11 in Weight 91.2 kg Last Vital Signs Pulse 92 05/09/24 10:24 Resp 20 05/09/24 10:24 BP 103/55 L 05/09/24 10:24 Pulse Ox 99 05/09/24 10:24 O2 Del Method Room Air 05/09/24 10:24 Pertinent Lab Results Pertinent Lab Results: CBC and BMP 01/2024 from [facility]. Slight elevated creat @ 1.57, slight low H&H 11.2&34.9 Narrative Narrative: CXR 04/2023 FINDINGS: The patient is status post median sternotomy. The lungs are well expanded. There are interstitial increased interstitial markings without focal consolidation. No pleural effusion. The cardiomediastinal silhouette is within normal limits. Calcification of the thoracic aorta is indicative of atherosclerotic disease. Multilevel degenerative changes of the thoracic spine are seen. XR/XR chest 2V IMPRESSION: No acute cardiopulmonary disease. ECHO 06/2023 Technically difficult d/t body habitus LV nml in size. Discrete upper septal hypertrophy. Nml LV sys function . LVEF 60%. No WMA. LV diastolic function parameters are indeterminate RV nml in size and function LA dilated c/w post-transplant status RA is dilated c/w post-transplant status. IVC nml in size with nml inspiratory collapse Aortic valve: tricuspid, leaflet thickening, no stenosis, mild regurg Mitral valve: valve thickening, mild MR Tricuspid valve: appears nml, trace regurg, RV sys pressure 26mmHg Pulmonic valve: appears nml, trace to mild pulmonic regurg, PA nml No pericardial effusion No signif change from prior 2022 EKG 01/2024 NSR @ 100 RBBB No change from previous Cardiac cath 2020 No significant angiographic epicardial coronary disease Mild paucity of LAD tertiary vessels with dimished flow velocity in the LAD during coronary angiography. There were transient ST segment elevations during the left coronary injections without any patient complaints of chest or back discomfort nor change in heart rate or blood pressure. Airway Mallampati Class: II TM Dist: >3cm Neck ROM: Full Denture: Upper and Lower Heart: RRR Lungs: CTAB Assessment and Plan Assessment Anesthesia Assessment: Anesthesia Plan Discussed and PAT Visit Final Anesthetic Review Family History of Problems with Anesthesia: No History of Problems with Anesthesia: No Documented by User: Becky Espinal DO 05/23/24 10:24 HPI - Anesthesia Eval Anesthesia Pre-Procedure Meds Is the patient on any of the following meds?: GLP1/DPP4 PMFSH Past Medical History Medical History (Updated 02/07/24 @ 14:19 by Last Copeland MD, PhD) Pneumonia Cataract Amputation of toe Hx of thrombosis History of positive PPD Erosive gastropathy Colon polyp Erectile dysfunction Microscopic hematuria Immunosuppressed status Unsteady gait Ischemic cardiomyopathy DAY (generalized anxiety disorder) Dyslipidemia CHD (congenital heart disease) Chronic kidney disease Sleep apnea Headache Left foot drop Back pain Depression Osteopenia Dry eye Tremor Dysautonomia Insomnia Neck pain Presbyesophagus Esophageal dysmotility BPH (benign prostatic hyperplasia) Hyperparathyroidism Guillain-Wynne syndrome Leukopenia Neuropathy PVD (peripheral vascular disease) Myocardial infarction Cellulitis History of COVID-19 Hx MRSA infection Diabetes Hx of deep venous thrombosis Immune disorder High cholesterol High blood pressure Acid reflux Family History Family history of problems with anesthesia: No Surgical History Surgical History (Updated 05/09/24 @ 10:42 by Brandi Scott RN) History of surgery on lower extremity Hx of shoulder surgery Hx of squamous cell carcinoma excision Hx of cataract surgery Status post arterial stent History of esophagogastroduodenoscopy (EGD) H/O angioplasty AICD (automatic cardioverter/defibrillator) present History of lumbar fusion Hx of cervical spine surgery History of left ventricular assist device (LVAD) Hx of CABG Hx of heart transplant History of Problems with Anesthesia: No Social History Social History Household Members: Spouse Housing: House Are you a primary home health caregiver to a significant other at home: No Do you presently have visiting nurse or other home services: No Comment: counts correct Patient Tobacco Use Status: Former Tobacco user Tobacco use type: Cigarette Years Smoked: 25 Use of substances other than those prescribed or required for medical reasons: No Substance Use Type Other:: gummies at bedtime-advised to hold 3-5 days pre-op Substance Use Frequency: Daily Have you been hit, kicked, punched, or otherwise hurt by someone within the past year? 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 Meds Allergies Allergy/AdvReac Type Severity Reaction Status Date / Time No Known Allergies Allergy Verified 02/07/24 13:34 Home Medications ?Medication ?Instructions ?Recorded ?Confirmed ?Last Taken ?Type amlodipine 5 mg tablet 5 mg PO QAM 10/07/22 05/09/24 05/23/24 History duloxetine 20 mg capsule,delayed 40 mg PO BEDTIME 10/07/22 05/09/24 05/22/24 History release gabapentin 300 mg capsule 600 mg PO TID 10/07/22 05/09/24 05/22/24 History insulin lispro 100 unit/mL 10 - 20 unit subcut TIDAC 10/07/22 05/09/24 05/14/23 10:00 History subcutaneous cartridge (Humalog 8 units U-100 Insulin) mycophenolate sodium 360 mg 360 mg PO BID 10/07/22 05/09/24 05/22/24 History tablet,delayed release pantoprazole 40 mg tablet,delayed 40 mg PO QAM 10/07/22 05/09/24 05/23/24 History release pen needle, diabetic 31 gauge x #1,200 ea 10/07/22 10/05/23 Unknown History 08/30 (BD Ultra-Fine Short Pen Needle) prednisone 5 mg tablet 5 mg PO QAM 10/07/22 05/09/24 05/23/24 History rosuvastatin 20 mg tablet 20 mg PO BEDTIME 10/07/22 05/09/24 05/22/24 History trazodone 100 mg tablet 200 mg PO BEDTIME PRN Insomnia 10/07/22 05/09/2405/22/25 History aspirin 81 mg tablet,delayed 81 mg PO QAM 02/07/23 05/09/24 05/22/24 History release clopidogrel 75 mg tablet 75 mg PO QAM 02/07/23 05/09/24 05/17/24 History insulin degludec 200 unit/mL (3 4 unit subcut QAM 02/07/23 05/09/24 05/22/24 History mL) subcutaneous pen (Tresiba FlexTouch U-200 insulin) cholecalciferol (vitamin D3) 25 25 mcg PO QAM 05/01/23 05/09/24 05/22/24 History mcg (1,000 unit) capsule (Vitamin D3) cyanocobalamin (vitamin B-12) 1,000 mcg PO QAM 05/01/23 05/09/24 05/22/24 History 1,000 mcg tablet (Vitamin B-12) insulin degludec 200 unit/mL (3 4 unit subcut BEDTIME 05/01/23 05/09/24 05/22/24 History mL) subcutaneous pen (Tresiba FlexTouch U-200 insulin) carvedilol 3.125 mg tablet 3.125 mg PO BID 05/09/24 05/09/24 05/23/24 History dulaglutide 4.5 mg/0.5 mL 4.5 mg subcut QWEEK 05/09/24 05/09/24 05/15/24 History subcutaneous pen injector (Trulicity) tacrolimus 1 mg capsule, 3 mg PO BID 05/09/24 05/09/24 05/23/24 History immediate-release valsartan 320 mg tablet 320 mg PO QAM 05/09/24 05/09/24 05/22/24 History Exam Exam Date and Time: 05/23/24 1020 Height,Weight and Vital Signs: Height 5 ft 8.11 in Weight 91.2 kg Last Vital Signs Pulse 92 05/09/24 10:24 Resp 20 05/09/24 10:24 BP 103/55 L 05/09/24 10:24 Pulse Ox 99 05/09/24 10:24 O2 Del Method Room Air 05/09/24 10:24 Vital Signs Pulse Rate 92 05/09/24 10:24 Respiratory Rate 20 05/09/24 10:24 Blood Pressure 103/55 L 05/09/24 10:24 Pulse Oximetry 99 05/09/24 10:24 Oxygen Delivery Method Room Air 05/09/24 10:24 Pulse Rate 92 05/09/24 10:24 Respiratory Rate 20 05/09/24 10:24 Blood Pressure 103/55 L 05/09/24 10:24 Pulse Oximetry 99 05/09/24 10:24 Oxygen Delivery Method Room Air 05/09/24 10:24 Airway Mallampati Class: II TM Dist: >3cm Neck ROM: Full Denture: Upper and Lower Heart: S1S2 Assessment and Plan Assessment Anesthesia Assessment: Anesthesia Plan Discussed and Chart Reviewed Final Anesthetic Review Family History of Problems with Anesthesia: No History of Problems with Anesthesia: No NPO: Yes ASA Class: III Final Preanesthetic Review: No Changes in Pt Med Stat, Meds/Allgs Chart Reviewed, Consent Obtained/Reviewed and Anes Risks/Benef Reviewed Patient Risk: Intermediate Procedure Risk: Intermediate Anesthetic Plan Anesthetic Plan: GA and Agree w/ Assess. and Plan Disposition: Standard PACU
--- NOTE | 2024-05-23 10:26 | PM.DS ---
DS: Providers Provider Date of Service: 05/23/24 <KRISTYN Awan - Last Filed: 05/23/24 10:28> Date of discharge: 05/23/24 <KRISTYN Awan - Last Filed: 05/23/24 10:28> Primary care physician: Dung Chen MD <KRISTYN Awan - Last Filed: 05/23/24 10:28> Admitting clinician: Last Copeland <KRISTYN Awan - Last Filed: 05/23/24 10:28> DS: Diagnosis Discharge Diagnosis (1) S/P lumbar fusion: Status: Acute <KRISTYN Awan - Last Filed: 05/23/24 10:28> DS: Summary Time Attestation Discharge Coordination Time (in mins): 14 <KRISTYN Gutierrez - Last Filed: 05/23/24 12:28> Quality: Safe Use of Opioids Does Pt have an Active Cancer Diagnosis on the Problem List?: No <KRISTYN Gutierrez - Last Filed: 05/23/24 12:28> Quality: Stroke Does the patient have a stroke diagnosis?: No <KRISTYN Gutierrez - Last Filed: 05/23/24 12:28> Physical Exam Vital Signs: Vital Signs: Last Vital Signs Pulse 92 05/09/24 10:24 Resp 20 05/09/24 10:24 BP 103/55 L 05/09/24 10:24 Pulse Ox 99 05/09/24 10:24 O2 Del Method Room Air 05/09/24 10:24 BMI result Body Mass Index 30.5 <KRISTYN Awan - Last Filed: 05/23/24 10:28> DS: Data Data Completed and Pending Completed studies during hospitalization [Text1]: Procedures Excision of Lumbar Vertebral Disc, Open Approach (05/15/23) Fusion of Lumbar Vertebral Joint with Interbody Fusion Device, Anterior Approach, Anterior Column, Open Approach (05/15/23) Insertion of Interspinous Process Spinal Stabilization Device into Lumbar Vertebral Joint, Open Approach (05/15/23) <KRISTYN Awan - Last Filed: 05/23/24 10:28> Labs on day of discharge: Laboratory Results - last 24 hr 05/23/24 10:15 POC Glucose 139 H <KRISTYN Awan - Last Filed: 05/23/24 10:28> Discharge Plan Discharge Patient Disposition: Home, Self-Care <KRISTYN Awan - Last Filed: 05/23/24 10:28> Referrals: Dung Chen MD [Primary Care Provider] - 1 Week <KRISTYN Awan - Last Filed: 05/23/24 10:28> Discharge Medications: New oxycodone 5 mg tablet 5 mg PO Q6H PRN (Reason: pain (scale score 7-10)) Qty: 20 0RF Rx Instructions: Partial Fill upon patient request. Continued cyanocobalamin (vitamin B-12) [Vitamin B-12] 1,000 mcg Tablet 1,000 mcg PO QAM cholecalciferol (vitamin D3) [Vitamin D3] 25 mcg (1,000 unit) Capsule 25 mcg PO QAM insulin degludec [Tresiba FlexTouch U-200] 200 unit/mL (3 mL) Insulin Pen 4 unit SUBCUT BEDTIME insulin degludec [Tresiba FlexTouch U-200] 200 unit/mL (3 mL) insulin pen 4 unit subcut QAM valsartan 320 mg tablet 320 mg PO QAM tacrolimus 1 mg capsule 3 mg PO BID Trulicity 4.5 mg/0.5 mL pen injector 4.5 mg subcut QWEEK Rx Instructions: takes on Wednesdays carvedilol 3.125 mg tablet 3.125 mg PO BID duloxetine 20 mg capsule,delayed release(DR/EC) 40 mg PO BEDTIME Humalog U-100 Insulin 100 unit/mL cartridge 10 - 20 unit subcut TIDAC amlodipine 5 mg tablet 5 mg PO QAM prednisone 5 mg tablet 5 mg PO QAM pantoprazole 40 mg tablet,delayed release (DR/EC) 40 mg PO QAM trazodone 100 mg tablet 200 mg PO BEDTIME PRN (Reason: Insomnia) rosuvastatin 20 mg tablet 20 mg PO BEDTIME (DME) pen needle, diabetic [BD Ultra-Fine Short Pen Needle] 31 gauge x 5/16 needle See Rx Instructions .ROUTE DIRECTED Qty: 1200 Rx Instructions: As directed gabapentin 300 mg capsule 600 mg PO TID mycophenolate sodium 360 mg tablet,delayed release (DR/EC) 360 mg PO BID Held aspirin 81 mg Tablet,Delayed Release (Dr/Ec) 81 mg PO QAM Hold Instructions: Resume on 05/27/24. Hold clopidogrel 75 mg tablet 75 mg PO QAM Hold Instructions: Resume on 05/28/24. you may resume plavix 5 days after surgery <KRISTYN Awan - Last Filed: 05/23/24 10:28> Discharge Orders: Discharge Order (Routine); Ordered 05/23/24 Ordered By: Matthieu Tran <KRISTYN Awan - Last Filed: 05/23/24 10:28> Diet: Advance to usual diet <KRISTYN Awan - Last Filed: 05/23/24 10:28> Advance to usual diet <KRISTYN Gutierrez - Last Filed: 05/23/24 12:28> Activity on Discharge: As tolerated <KRISTYN Awan - Last Filed: 05/23/24 10:28> As tolerated <KRISTYN Gutierrez - Last Filed: 05/23/24 12:28> Activity Restrictions/Additional Instructions: After your spinal surgery we ask you to observe the following restrictions/guidelines: Activity: It is normal to feel some discomfort as you increase your activity, but that will improve with time. We ask you avoid heavy lifting or acitivities that cause pain. As a general rule, 8lbs is a safe limit for lifting right after surgery. Walk as much as you feel comfortable but not to exhaustion. You will feel extra tired the first few days after surgery. Stay well hydrated. It is OK to walk up and down stairs You may return to driving when you are off narcotics (such as vicodin, oxycodone, dilaudid, etc), and you are back to normal functional capacity. If you have any concerns please check with office before driving. Return to work is specific to each patient and each surgery, so please speak with your doctor/PA at first follow up. Please bring paperwork such as FMLA at that time if you need it filled out. Medications: You may resume plavix 5 days after surgery, you may continue aspirin the day after surgery For optimum pain control, it is best to start with a combination of 500 mg of Tylenol every 4 hours with 600 mg of Motrin every 8 hours, and use narcotics as needed in between for breakthrough pain. We will give you a short supply of narcotics after surgery (usually one weeks worth). If you need more please call the office but do not use more than prescribed. You will need to give our office 48 hours notice if you need narcotics refilled and we do not fill narcotics on weekends or evenings. If you are on a narcotic, it is a good idea to take a stool softener such as colace or senna to avoid constipation If you take blood thinner such as aspirin, Plavix, Coumadin, Effient, Eliquis etc for conditions such as Afib, DVT, Pulmonary embolus, coronary disease, stents etc please speak with your surgeon about specific details as to when you can resume these medications. You can resume NSAIDs on post op day 1 (eg: Motrin, Naproxen, etc). Follow up: Please call the office, , after surgery to arrange a 3 week follow up for wound check. Wound Care: You may remove your dressing on the first day after surgery. ?You may ?leave open to air. Please do not remove the steri strips underneath. they will fall off on their own in one week. IT IS NORMAL FOR THE WOUND TO OOZE OR BE BLOODY FOR A FEW DAYS AFTER SURGERY. ?IF THIS HAPPENS JUST PLACE NEW DRESSING OVER IT TO AVOID STAINING CLOTHES. You may shower on post op day # 1 We ask that you do not let the water soak the wound. If it does get wet, just towel dry lightly. Please do not scrub your incision or place any type of chemical/ointment on the wound. No tub baths, pools or jacuzzis for one month. If you have any leaking or redness from your wound, or fevers, please call office <KRISTYN Awan - Last Filed: 05/23/24 10:28> Print Language: Bengali <KRISTYN Awan - Last Filed: 05/23/24 10:28>
--- NOTE | 2024-05-23 12:31 | W.PM.OPN ---
Operative Note Operative Note Date of Service: 05/23/24 Narrative: Preoperative diagnosis: Painful posterior lumbar hardware( Coflex) Postoperative diagnosis: Same Procedure: Removal nonsegmental posterior hardware (Coflex) Surgeon: Last Copeland MD, PhD Managed Care Coordinator: vikash Lamb This patient underwent interspinous lumbar decompression with CoFlex placement in another institution. We performed an L4-5 lumbar fusion and despite the fusion he has continues to complain of severe back pain in the area of the coflex. We offered him a removal of the posterior implant. The procedure complications were explained. The patient was consented. The patient was brought to the operating room and endotracheally intubated. The patient was turned in a prone position on the Wilbur spine table Prepping and draping was done followed by time-out. The previous midline incision to expose the interspinous device. The coflex device was on done from scar tissue. The clamps that were around the spinous processes were opened and then the implant could be removed in toto. Hemostasis was done. Marcaine was injected intramuscularly.The incision was closed in two layers. Steri-Strips used to approximate the incision. An op-site were taken there was used to cover the incision. All sponge and needle counts were correct. Patient was extubated and transported in stable condition to recovery room. this procedure was done with the aid of a physician assistant teaching professor who performed exposure of the interspinous device. Anesthesia: General Blood loss: 15 mL Complications: None Specimen: None Surgical time: 30 minutes Disposition: Discharge home
[2024-05-23] MEDS: oxyCODONE HCl Immed Release 5 MG TABLET PO (13:35)
[2024-05-23] MEDS: fentaNYL citrate/PF 100 MCG/2 ML VIAL 50 MCG IVPUSH ×2 (13:36→13:44)
== END 2024-05-23 15:52 | disposition home or self-care (01) ==
PROVIDERS: PCP Internal Medicine; Visit Provider Neurological Surgery
PROC: (CPT 22850; principal; 2024-05-23 12:00)
DX: T84.84XA Pain due to internal orthopedic prosthetic devices, implants and grafts, initial encounter (principal); G89.29 Other chronic pain; M54.50 Low back pain, unspecified; Y82.8 Other medical devices associated with adverse incidents; Y83.8 Other surgical procedures as the cause of abnormal reaction of the patient, or of later complication, without mention of misadventure at the time of the procedure; Y92.9 Unspecified place or not applicable
CPT/HCPCS: 22850; 82947; J0131; J0690; J1100; J2003; J2371; J2405; J2704; J3010

== ENCOUNTER → 2024-05-23 08:49 | Outpatient (BNV) | payer MEDICARE, SELFPAY | PROVIDERS: PCP Internal Medicine; Visit Provider Neurological Surgery | DX: T84.84XA Pain due to internal orthopedic prosthetic devices, implants and grafts, initial encounter (principal); M54.50 Low back pain, unspecified | CPT/HCPCS: 22850 ==

== ENCOUNTER 2024-06-11 14:04 | Outpatient (AMB) | payer MEDICARE, SELFPAY ==
--- NOTE | 2024-06-11 14:30 | MHC.OFFVIS ---
Intake Visit Reasons: Right shoulder pain, Neck pain Intake Note: Tony is a 73 year old right hand dominant male who presents with complaints of progressively worsening neck pain which radiates into his right arm as well as intermittent right shoulder pain. The patient also reports intermittent weakness in his right arm. He denies any fevers or chills. He has done physical therapy exercises which aggravated his pain. He has also tried Tylenol and anti-inflammatory medicines which gave him minimal relief. Allergies No Known Allergies Allergy (Verified 02/07/24 13:34) Medication List - Last Reconciled 06/11/24 by Nirmal Gutierres MD amlodipine 5 mg PO QAM aspirin 81 mg PO QAM carvedilol 3.125 mg PO BID cholecalciferol (vitamin D3) (Vitamin D3) 25 mcg PO QAM clopidogrel 75 mg PO QAM cyanocobalamin (vitamin B-12) (Vitamin B-12) 1,000 mcg PO QAM dulaglutide (Trulicity) 4.5 mg subcut QWEEK duloxetine 40 mg PO BEDTIME gabapentin 600 mg PO TID insulin degludec (Tresiba FlexTouch U-200 insulin) 4 units subcut QAM insulin degludec (Tresiba FlexTouch U-200 insulin) 4 units subcut BEDTIME insulin lispro (Humalog U-100 Insulin) 10 - 20 units subcut TIDAC mycophenolate sodium 360 mg PO BID oxycodone 5 mg PO Q6H PRN pantoprazole 40 mg PO QAM pen needle, diabetic (BD Ultra-Fine Short Pen Needle) As directed prednisone 5 mg PO QAM rosuvastatin 20 mg PO BEDTIME tacrolimus 3 mg PO BID trazodone 200 mg PO BEDTIME PRN valsartan 320 mg PO QAM [facility] Medical History (Updated 02/07/24 @ 14:19 by Last Copeland MD, PhD) Pneumonia Cataract Amputation of toe Hx of thrombosis History of positive PPD Erosive gastropathy Colon polyp Erectile dysfunction Microscopic hematuria Immunosuppressed status Unsteady gait Ischemic cardiomyopathy DAY (generalized anxiety disorder) Dyslipidemia CHD (congenital heart disease) Chronic kidney disease Sleep apnea Headache Left foot drop Back pain Depression Osteopenia Dry eye Tremor Dysautonomia Insomnia Neck pain Presbyesophagus Esophageal dysmotility BPH (benign prostatic hyperplasia) Hyperparathyroidism Guillain-Chancellor syndrome Leukopenia Neuropathy PVD (peripheral vascular disease) Myocardial infarction Cellulitis History of COVID-19 Hx MRSA infection Diabetes Hx of deep venous thrombosis Immune disorder High cholesterol High blood pressure Acid reflux Surgical History (Updated 05/09/24 @ 10:42 by Brandi Scott RN) History of surgery on lower extremity Hx of shoulder surgery Hx of squamous cell carcinoma excision Hx of cataract surgery Status post arterial stent History of esophagogastroduodenoscopy (EGD) H/O angioplasty AICD (automatic cardioverter/defibrillator) present History of lumbar fusion Hx of cervical spine surgery History of left ventricular assist device (LVAD) Hx of CABG Hx of heart transplant Social History Household Members: Spouse Housing: House Are you a primary transitions rn care coordinator to a significant other at home: No Do you presently have visiting nurse or other home services: No Comment: counts correct Patient Tobacco Use Status: Former Tobacco user Tobacco use type: Cigarette Years Smoked: 25 service: No Current occupational status: disabled 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 Physical Exam Const Other: Well-nourished well-developed very friendly male awake alert and oriented x3 in no acute distress Neck Other: Cervical spine examination shows pain with range of motion, right-sided paraspinal muscle tenderness, positive Spurling's test, 4/5 strength with testing of his right biceps and wrist extensors when compared to 5/5 strength on his left side Extrem Other: Right shoulder examination shows slightly decreased range of motion when compared to his left shoulder, 4+ out of 5 strength with supraspinatus testing, positive impingement signs, no instability Office Procedures AMB Joint Injection/Aspiration Joint Injection/Aspiration Primary Site: right shoulder Prep: site was prepped using aseptic technique Injected: 40 mg of, DepoMedrol and 1% plain lidocaine Procedure: The patient tolerated the procedure well Coding 57472 - Large joint Procedure code (CPT) selection complete Assessment & Plan Assessment & Plan (1) Impingement of right shoulder: Code(s): M25.811 - Other specified joint disorders, right shoulder Category: Medical (2) Right shoulder pain: Code(s): M25.511 - Pain in right shoulder Category: Medical Plan Mr. Thompson presents with right shoulder pain due to impingement syndrome. The risks and benefits of a right shoulder cortisone injection were discussed at length with the patient. The patient wished to proceed. He tolerated the injection well. He also has neck pain which radiates into his right arm as well as associated right arm weakness possibly due to cervical stenosis or a disc herniation. Thus, I will send him for an MRI of his cervical spine for further evaluation. I will contact him by phone once the MRI results are available. He will call me prior to that time should his symptoms worsen in any way. Feel free to call me at any time should questions regarding his orthopedic management arise. I spent 21 minutes in reviewing the patient's records and imaging studies, seeing the patient and documenting in the medical record. Orders: Orders AMB Joint Injection/Aspiration Today M25.811 - Other specified joint disorders, right shoulder Coding Level of Care Code Est Pt Level 3 (10839) Complex EM visit Add On G2211 Diagnoses Impingement of right shoulder M25.811 Right shoulder pain M25.511 CPT Codes Coding - 90938 Large joint: 21733 - Large joint ([id number])
--- OUTSIDE RECORDS SUMMARY | 2024-06-11 17:37 | XMS_ITS ---
Author Organization [facility] Address [address] [place] [address] Care Team Providers Care Manager Utilization Name Role Phone Gustavo CALLOWAY, Dung Primary Care Provider Unavail Magdy Villarreal Unavailable [phone] Encounters Encounter Location Date Provider Diagnosis [facility] [address] [address] 12/22/2022 Magdy Gutiérrez Plan Of Treatment No Information Progress Notes * BHAVANATony ODOB:1950 (73 yo M)Acc No.[id number]:12/22/2022 Progress Note Patient:Tony MANDEL Provider:?Magdy Gutiérrez DPM :1950???Age:72 Y???Sex:Male Robi e:12/22/2022 Address:[address] [place], [place] [address] Pcp:Dung Chen MD Subjective: * Chief Complaints: * ??? * Medical History:? Objective: * Vitals:? Assessment: Plan: * Treatment: * Images: * The named appointment provid er may or may not be the originator of this progress note, and it is not deemed complete until electronically signed by the appointment provider. Sign off status: Pending * Provider:?Magdy Gutiérrez DPM Date:?2022 Generated for Keil pandya/Brad/eTransmitting on:?06/11/2024 05:37 PM EST
--- OUTSIDE RECORDS SUMMARY | 2024-06-11 17:37 | XMS_ITS | Encounter Summary ---
Author Organization [facility] Address [address] [place] [address] Phone Care Team Providers Care Software Installation Engineer Name Role Phone Dung Chen MD Primary Care Provider [phone] Encounter Details Date Type Department Care Team (Late st Contact Info) Description 01/23/2024 Documentation Only [facility] [address] [place] [address] Lela Mtz MS [address] [place] [phone] Social History Tobacco Use Types Packs/Day Years [...] Visit [facility] [address] [place] [address] Julian Paris MD [address] [place] [address] [place] [address] documented as of this encounter Visit Diagnoses Not on filedocumented in this encounter Care Teams Software Installation Engineer Relationship Specialty Start Date End Date Dnug Chen MD [address] [place], [place] [id number] PCP - General Internal Medicine 01/23/24 documented as of this encounter
--- OUTSIDE RECORDS SUMMARY | 2024-06-11 17:37 | XMS_ITS | Clinical Summary ---
Author Organization [facility], Address [address] [place] [address] [place] [address] Phone Care Team Providers Care Collection Systems Administrator Name Role Phone Dung Chen MD Primary Care Provider [phone] Active Problems Problem Noted Date Diagnosed Date [...] Visit [facility], [address] [place] [place] [address] Julian Paris MD [address] [place] [address] [place] [address] Health Maintenance Due Date Last Done Comments Colorectal Cancer Screening: Annual FOBT 09/30/2000 Colorectal Cancer Screening: Colonoscopy 09/30/2000 Colorectal Cancer Screening: Sigmoidoscopy 09/30/2000 Pneumococcal Vaccine: 65+ Years (2 of 2 - PCV) 07/14/2005 07/14/2004 Influenza Vaccine (#1) 2023 9, 02/13/2018, 03/02/2017, Additional history exists Hepatitis B Vaccine Aged Out No longe r eligible based on patient's age to complete this topic Insurance MEDICARE [facility] MEDICARE [facility] MEDICARE [facility] Care Teams Collection Systems Administrator Relationship Specialty Start Date End Date Dung Chen MD [address] [place] [address] PCP - General Internal Medicine 01/23/24
--- OUTSIDE RECORDS SUMMARY | 2024-06-11 17:37 | XMS_ITS | Patient Health Record ---
Author Organization [facility] Address [address] [place] [address] Care Team Providers Care Acid Bleacher Name Role Phone Dung Chen MD Primary Care Provider Unavail able Magdy Gutiérrez Unavailable [phone] Allergies Allergen (clinical drug ingredient) Drug/Non Drug Allergy documented on EMR Reaction Allergy Type Onset Date Status lisinopril Lisinopril cough Drug Allergy Activ e Reason For Referral No Information Medications Medication SIG (Take, Route, Frequency, Duration) Notes Start Date End Date Status Extra Depth Orthopedic Shoes (1 Pair) with Customized Heat Molded Multidensity Innersoles (3 Pair) as directed Dx: IDDM/Polyneuropathy (E10.42), Hammertoe Foot Deformity (M20.41,M20.42), Preulcerative Skin Lesion(s) (L85.1) 09/22/2022 Active Losartan Potassium 50 MG Active Calcium + D 600-200 MG-UNIT 1 tablet with food Orally Once a day Active Vitamin D 93514 1 tablet Orally Once a day Active [...] capsule Orally twi ce a day Active Immunizations Vaccine Route Administration Date Status Comme nts COVID-19 Pfizer BioNTech Vaccine Unknown 05/17/2020 Adm inistered COVID-19 Pfizer BioNTech Vaccine Unknown 06/13/2020 Adm inistered Influenza Unknown 02/03/2015 Administered Influenza Unknown 03/01/2016 Administered Influenza Unknown 03/02/2017 Administered Influenza Unknown 03/02/2017 Refused Influenza Unknown 02/13/2018 Administered Influenza Unknown 02/01/2019 Administered Pneumococcal Unknown 02/03/2015 Administered Pneumococcal Unknown 04/24/2016 Administered Social History Tobacco Use: Social History Observation Description Date Details (start date - stop date) Former Smoker NA - 08/30/1997 Tobacco Use/Smoking Question Answer Notes Are you a: former smoker When did you stop smoking? 08/30/1997 Additional Findings: Tobacco Non-User Ex-cigaret te smoker amount unknown Alcohol Screen Question Answer Notes Did you have a drink containing alcohol in the p ast year? No Points 0 Interpretation Negative Tobacco use other than smoking: Question Answer Notes Are you an other tobacco user? No Problems Problem Type SNOMED Code ICD Code Onset Dates Problem Status W/U Status Risk Notes Problem Acquired hammer toe of right foot (3112015425054562 ) Other hammer toe(s) (acquired), right foot (M20.41) Active confirmed Problem Acquired hammer toe of left foot (4815355313450609 ) Other hammer toe(s) (acquired), left foot (M20.42) Active confirmed Problem Polyneuropathy due to diabetes mellitus type I (424980080) Type 1 diabetes mellitus with diabetic polyneuropathy (E10.42) Active confirmed Problem Chronic ulcer of foot (434044997) Non-pressure chronic ulcer of right heel and 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 (L97.412) Active confirmed Problem 14300427 Type 1 diabetes mellitus with diabetic peripheral angiopathy without gangrene (E10.51) Active confirmed Problem 389338420 Ulcer of left foot with fat layer exposed (L97.522) Active confirmed Plan Of Treatment Pending Test Test Name Order Date Hemoglobin A1c 12/03/2014 98821-SATRCVW NAIL, 6 OR MORE 12/03/2014 70344-BETTJOV NAIL, 6 OR MORE 03/04/2015 11178-VFZHNHD NAIL, 6 OR MORE 05/28/2015 01427-TCDCRSN NAIL, 6 OR MORE 08/27/2015 24766-CLVNJRF NAIL, 6 OR MORE 11/26/2015 83701-UHEMPFA NAIL, 6 OR MORE 02/25/2016 39204-BSGDMWF NAIL, 6 OR MORE 06/01/2016 79389-ZGEXJUB NAIL, 6 OR MORE 08/31/2016 76307-KTUXXMJ NAIL, 6 OR MORE 03/21/2013 42691-HMMPIPH NAIL, 6 OR MORE 06/13/2013 11078-DUJREOF NAIL, 6 OR MORE 09/11/2013 24873-MWFBUVB NAIL, 6 OR MORE 12/04/2013 07833-QDXZLWV NAIL, 6 OR MORE 03/05/2014 36901-QIJGTWM NAIL, 6 OR MORE 05/26/2014 69889-JNRUUVD NAIL, 6 OR MORE 09/10/2014 98252-OHCDFCO NAIL, 6 OR MORE 12/01/2016 24606-ZONYGGO NAIL, 6 OR MORE 03/02/2017 56991-KWZMPDL NAIL, 6 OR MORE 06/01/2017 91281-DVWOKZH NAIL, 6 OR MORE 08/31/2017 83682-PTZSSUX NAIL, 6 OR MORE 11/30/2017 98199-XRIVNGU NAIL, 6 OR MORE 03/12/2018 17837-AVEDSLR NAIL, 6 OR MORE 06/11/2018 49877-DIUURCO NAIL, 6 OR MORE 09/05/2018 88928-JPJZRSA NAIL, 6 OR MORE 11/26/2018 89820-YZBVBEB NAIL, 6 OR MORE 02/25/2019 59810-SUJANDM NAIL, 6 OR MORE 05/27/2019 32982-NFEPQQA NAIL, 6 OR MORE 08/26/2019 38144-AJFVQOU NAIL, 6 OR MORE 11/25/2019 51836-HTYXLBL NAIL, 6 OR MORE 02/27/2020 46112-BUGRCWK NAIL, 6 OR MORE 05/28/2020 56899-ZXPQDSR NAIL, 6 OR MORE 08/27/2020 65791-IQIPMZV NAIL, 6 OR MORE 12/03/2020 27416-PTIAXXE NAIL, 6 OR MORE 03/04/2021 72826-QTCFKUV NAIL, 6 OR MORE 07/26/2021 84952-HKKVEFM NAIL, 6 OR MORE 11/04/2021 75135-OKVGJYL NAIL, 6 OR MORE 02/03/2022 83759-RGWTSBO NAIL, 6 OR MORE 05/05/2022 34163-GUDHNGM NAIL, 6 OR MORE 09/22/2022 46598-Kcaaybqx Plate 03/21/2013 23727-Mcivcejz Plate Each Additional 08/2012 03347-PGZA SKIN LESIONS, 2 TO 4 03/21/20 13 35726-UNQT SKIN LESIONS, 2 TO 4 09/12/19 14 63877-OCRD SKIN LESIONS, 2 TO 4 06/13/19 14 93145-IPXY SKIN LESIONS, 2 TO 4 09/11/19 15 13101-YOQH SKIN LESIONS, 2 TO 4 05/26/19 15 92867-JJEE SKIN LESIONS, 2 TO 4 03/05/20 14 26906-IRHZ SKIN LESIONS, 2 TO 4 12/05/19 14 78683-XANU SKIN LESIONS, 2 TO 4 12/02/19 17 84430-JJKJ SKIN LESIONS, 2 TO 4 06/01/19 17 85392-KFJP SKIN LESIONS, 2 TO 4 09/01/19 17 55043-EVMR SKIN LESIONS, 2 TO 4 02/25/20 16 89319-ZTRR SKIN LESIONS, 2 TO 4 11/26/19 16 48105-CHPB SKIN LESIONS, 2 TO 4 08/27/19 16 74007-YBUW SKIN LESIONS, 2 TO 4 05/28/19 16 90191-NXQW SKIN LESIONS, 2 TO 4 12/04/19 15 68823-TXYX SKIN LESIONS, 2 TO 4 03/04/20 15 82276-PNEX SKIN LESIONS, 2 TO 4 12/04/19 21 32208-GDCM SKIN LESIONS, 2 TO 4 08/28/19 21 65175-PVXA SKIN LESIONS, 2 TO 4 05/28/19 21 87244-BYEQ SKIN LESIONS, 2 TO 4 02/27/20 20 29337-ITNO SKIN LESIONS, 2 TO 4 08/26/19 20 95708-QUMQ SKIN LESIONS, 2 TO 4 05/27/19 20 65200-YYRU SKIN LESIONS, 2 TO 4 02/26/20 19 70978-EGPQ SKIN LESIONS, 2 TO 4 11/27/19 19 72914-DLPJ SKIN LESIONS, 2 TO 4 09/06/19 19 72973-VHHS SKIN LESIONS, 2 TO 4 06/11/19 19 54322-OPMN SKIN LESIONS, 2 TO 4 03/12/20 18 34272-INDB SKIN LESIONS, 2 TO 4 12/01/19 18 56896-WOYO SKIN LESIONS, 2 TO 4 09/01/19 18 72320-TDEL SKIN LESIONS, 2 TO 4 06/01/19 18 07349-WOAS SKIN LESIONS, 2 TO 4 03/02/20 17 18857-XKOZ SKIN LESIONS, 2 TO 4 09/23/19 23 82197-ZYYV SKIN LESIONS, 2 TO 4 05/05/19 23 49036-YGXQ SKIN LESIONS, 2 TO 4 11/25/19 29694-JJFQ SKIN LESIONS, 2 TO 4 02/04/20 64817-VXSA SKIN LESIONS, 2 TO 4 11/05/19 75365-BCGF SKIN LESIONS, 2 TO 4 07/27/19 35961-QGYY SKIN LESIONS, 2 TO 4 03/04/20 15729-Xqbw. Subungual Hematoma 0 Insurance Providers Payer Name Payer Address Payer Phone Subscriber Number Group Number Insured Name Patient Relationship to Insured Coverage Start Date Coverage End Date Medicare National [employer]t [employer] [address] [place] [address] [id number] Tony Thompson Self - patient is the insured 5 [employer] Secondary to Medicare [address] [place] [id number] Tony Thompson Self - patient is the insured Medical (General) History Medical History History ICD Code angina cholesterol [...] leg 08/2022 [facility], [place] 04/30/22 [facility] in [place] for 8 days 07/03/21 [facility] [place], Covid relate d issues 06/24/21 [facility] Covid 06/08 [facility], Covid 04/26/21 [facility], ENG 07/2020 [facility] Issues with Diabetes 2020 [facility] stent left knee 12/10/19 [facility] Neck surgery 11/2019 [facility] 05/2019 [facility], stent left knee 07/2018 [facility] lower back and leg pain 11/22/17 Colonoscopy 09/2016 Heart transplant in [place] 04/19/15 [facility] -heart transplant 04/16-05/10/13 [facility] for blood clots in the pump for 10 day stay 01/2013
--- OUTSIDE RECORDS SUMMARY | 2024-06-11 17:38 | XMS_ITS | Clinical Summary ---
Author Organization [employer] [facility] Address [address] [place] [address] Care Team Providers Care Stereoptician Name Role Phone Dung Chen MD Primary Care Provider [phone] Immunizations Name Administration Dates Next Due Pfizer SARS-CoV-2 COVID-19, mRNA, LNP-S, preservative free 06/13/2020,05/17/2020 Surgical History Surgery Date Site/Laterality Comments CORONARY ARTERY BYPASS GRAFT 1997 PROCEDURE: HISTORICAL CABG OTHER SURGICAL HISTORY 10/07/2011 PROCEDURE: ---- OTHER ----; COMMENT: teeth extracted OTHER SURGICAL HISTORY 01/2012 PROCEDURE: ---- OTHER ----; COMMENT: LVAD OTHER SURGICAL HISTORY 04/17/2013 PROCEDURE: NE HEART TRANSPLANT W/WO RECIPIENT CARDIECTOMY CATARACT EXTRACTION 09/18/2014 Right PROCEDURE: HISTORICAL CATARACT REMOVAL FLEXIBLE SIGMOIDOSCOPY 05/26/2008 PROCEDURE: HISTORICAL FLEXIBLE SIGMOIDOSCOPY; COMMENT: Negative to 50 cm COLONOSCOPY 10/03/2016 PROCEDURE: HISTORICAL COLONOSCOPY; COMMENT: 5 mm right colon polyp, random biopsies: Small tubular adenoma; random biopsies normal. UPPER GASTROINTESTINAL ENDOSCOPY 10/03/2016 PROCEDURE: NE UPPER GI ENDOSCOPY PERFORMED; COMMENT: Visually normal; [...] at Not on file Legal Sex Male 7:36 PM EST Gender Identity Not on file [...] 19+ 3-dose series) 04/24/2012 03/27/2012 Pneumococcal Vaccine: 50+ Years (3 of 3 - PCV) 01/23/2013 [...] patient's age to complete this topic Meningococcal B Vacine Aged Out No lo nger eligible based on patient's age to complete this topic RSV Immunization Patients Under 20 months Aged Out No longer eligible based on patient's age to complete this topic Varicella Vaccines Aged Out No longer eligible based on patient's age to complete this topic Advance Directives Documents on File Type Date Recorded Patient Culture Manager Expl anation Health Care Decision (hx) 05/16/2023 [...] (hx) 09/23/2020 AD PIERCE DIRECTIVE Care Teams Stereoptician Relationship Specialty Start Date End Date Dung Chen MD PCP - General Internal Medicine 04/11/19
--- OUTSIDE RECORDS SUMMARY | 2024-06-11 17:38 | XMS_ITS ---
Author Organization [facility] Address [address] [place] [address] Care Team Providers Care Music Specialist Name Role Phone Dung Chen MD Primary Care Provider Unavail able Magdy Gutiérrez Unavailable [phone] REASON FOR VISIT 12/22/22 appt Encounters Encounter Location Date [facility] [address] [address] 12/20/2022 Magdy Gutiérrez Plan Of Treatment No Information Progress Notes * Tony THOMPSON ODOB:1950 (72 yo M)Acc No.[id number]:12/20/2022 Patient:?Tony Thompson :1950???Age:72 Y???Sex:Male Address:[address] [place] [address], [address] * true * Date:? Generated for Sachini ya/Brad/eTransmitting on:?06/11/2024 05:37 PM EST
--- OUTSIDE RECORDS SUMMARY | 2024-06-11 17:38 | XMS_ITS | Clinical Summary ---
Author Organization [facility] Address [address] [place] [address] Care Team Providers Care Retail Client Solutions Analyst Name Role Phone Dung Chen MD Primary Care Provider [phone] Allergies No known active allergies Medications Medication [...] age to complete this topic Care Teams Retail Client Solutions Analyst Relationship Specialty Start Date End Date Dung Chen MD [address] [facility] [place] [address] PCP - General Internal Medicine 04/11/19
== END 2024-06-11 14:59 | disposition home or self-care (01) ==
PROVIDERS: PCP Internal Medicine; Visit Provider Orthopaedic Surgery
DX: M25.811 Other specified joint disorders, right shoulder (principal); M25.511 Pain in right shoulder
CPT/HCPCS: 20610; 99213

== ENCOUNTER → 2024-06-11 14:04 | Outpatient (BNVA) | payer MEDICARE, SELFPAY | PROVIDERS: PCP Internal Medicine; Visit Provider Orthopaedic Surgery | DX: M25.811 Other specified joint disorders, right shoulder (principal); M25.511 Pain in right shoulder; M54.2 Cervicalgia | CPT/HCPCS: 20610; 99212; J1010; J2003 ==

== ENCOUNTER 2024-06-13 14:14 | Outpatient (AMB) | payer MEDICARE, SELFPAY ==
--- NOTE | 2024-06-13 14:17 | A.SPINEOV_ITS ---
Intake Visit Reasons: 1st post op Intake Note: Mr. Thompson is here today for his 1st post op. Director Market Intelligence Required: No Allergies No Known Allergies Allergy (Verified 06/13/24 14:20) Assessment & Plan Assessment & Plan (1) S/P lumbar fusion: Code(s): Z98.1 - Arthrodesis status Category: Medical Plan Mr Thompson is here in follow up, about 3 weeks out from removal of Coflex. He is not necessarily feeling any significant improvement in his back pain. He however does have an extensive lumbar spinal history. His wound is healed up beautifully. At this point he has no specific restrictions from our standpoint. He was talking about possibly getting some workup done for some cervical spine issues he is having. I told him to give me a call and I would be happy to review the MRI of the phone if it ends up getting done. Abraham Copeland MD,PhD [facility] Coding Level of Care Code Global (19649) Diagnoses S/P lumbar fusion Z98.1
--- OUTSIDE RECORDS SUMMARY | 2024-06-13 17:20 | XMS_ITS | Clinical Summary ---
Author Organization [facility], Address [address] [place] [address] [place] [address] Phone Care Team Providers Care Massage Therapist Name Role Phone Dung Chen MD Primary Care Provider [phone] Active Problems Problem Noted Date Diagnosed Date [...] Visit [facility], [address] [place] [address] Julian Paris MD [address] [place] [address] [place] [address] Health Maintenance Due Date Last Done Comments Colorectal Cancer Screening: Annual FOBT 09/30/2000 Colorectal Cancer Screening: Colonoscopy 09/30/2000 Colorectal Cancer Screening: Sigmoidoscopy 09/30/2000 Pneumococcal Vaccine: 65+ Years (2 of 2 - PCV) 07/14/2005 07/14/2004 Influenza Vaccine (#1) 2023 9, 02/13/2018, 03/02/2017, Additional history exists Hepatitis B Vaccine Aged Out No longe r eligible based on patient's age to complete this topic Insurance MEDICARE [facility] MEDICARE Member Subscriber Plan / Payer ( fective 2005-Present) Name:Tony Thompson Seth Member ID:[id number] Relation to Subscriber:Self Name:Tony Thompson Seth Subscriber ID:[id number] Payer ID:Not on file Group ID:Not on file Type:Not on file Address: [address] [place] [address] [facility] MEDICARE [facility] Care Teams Massage Therapist Relationship Specialty Start Date End Date Dung Chen MD [address] [place] [address] PCP - General Internal Medicine 01/23/24
--- OUTSIDE RECORDS SUMMARY | 2024-06-13 17:20 | XMS_ITS ---
Author Organization [facility] Address [address] [place] [address] Care Team Providers Care Pai Gow Dealer Name Role Phone Gustavo CALLOWAY, Dung Primary Care Provider Unavail Magdy Villarreal Unavailable [phone] Encounters Encounter Location Date Provider Diagnosis [facility] [address] [address] 12/22/2022 Magdy Gutiérrez Plan Of Treatment No Information Progress Notes * BHAVANATony ODOB:1950 (73 yo M)Acc No.[id number]:12/22/2022 Progress Note Patient:Tony MANDEL Provider:?Magdy Gutiérrez DPM :1950???Age:72 Y???Sex:Male Robi e:12/22/2022 Address:[address] [place], [place] [id number] Pcp:Dung Chen MD Subjective: * Chief Complaints: * ??? * Medical History:? Objective: * Vitals:? Assessment: Plan: * Treatment: * Images: * The named appointment provid er may or may not be the originator of this progress note, and it is not deemed complete until electronically signed by the appointment provider. Sign off status: Pending * Provider:?Magdy Gutiérrez DPM Date:?2022 Generated for Keli pandya/Brad/eTransmitting on:?06/13/2024 05:20 PM EST
--- OUTSIDE RECORDS SUMMARY | 2024-06-13 17:20 | XMS_ITS ---
Author Organization [facility] Address [address] [place] [address] Care Team Providers Care Belt Worker Name Role Phone Dung Chen MD Primary Care Provider Unavail able Magdy Gutiérrez Unavailable [phone] REASON FOR VISIT 12/22/22 appt Encounters Encounter [facility] Date [facility] [address] [address] 12/20/2022 Magdy Gutiérrez Plan Of Treatment No Information Progress Notes * Tony THOMPSON ODOB:1950 (72 yo M)Acc No.[id number]:12/20/2022 Patient:?Tony Thompson :1950???Age:72 Y???Sex:Male Address:[address] [place] [address], [address] * true * Date:? Generated for Sachini ya/Brad/eTransmitting on:?06/13/2024 05:20 PM EST
--- OUTSIDE RECORDS SUMMARY | 2024-06-13 17:20 | XMS_ITS | Patient Health Record ---
Author Organization [facility] Address [address] [place] [address] Care Team Providers Care Motorized Squad Lieutenant Name Role Phone Dung Chen MD Primary Care Provider Unavail able aMgdy Gutiérrez Unavailable [phone] Allergies Allergen (clinical drug ingredient) Drug/Non Drug Allergy documented on EMR Reaction Allergy Type Onset Date Status Lisinopril cough Drug Allergy Active Reason For Referral No Information Medications Medication [...] Orally Once a day Active Vitamin D 50310 1 tablet Orally Once a day Active [...] Problem Acquired hammer toe of right foot (5016128888184469 ) Other hammer toe(s) (acquired), right foot (M20.41) Active confirmed Problem Acquired hammer toe of left foot (3278434334636724 ) Other hammer toe(s) (acquired), left foot (M20.42) Active confirmed Problem Polyneuropathy due to diabetes mellitus type I (334307003) Type 1 diabetes mellitus with diabetic polyneuropathy (E10.42) Active confirmed Problem Chronic ulcer of foot (692285479) Non-pressure chronic ulcer of right heel and 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 (L97.412) Active confirmed Problem 49573975 Type 1 diabetes mellitus with diabetic peripheral angiopathy without gangrene (E10.51) Active confirmed Problem 154272225 Ulcer of left foot with fat layer exposed (L97.522) Active confirmed Plan Of Treatment Pending Test Test Name Order Date Hemoglobin A1c 12/03/2014 07486-KGUPWEV NAIL, 6 OR MORE 12/03/2014 44955-BVHZMEC NAIL, 6 OR MORE 03/04/2015 31670-VBHJTDE NAIL, 6 OR MORE 05/28/2015 58896-PPDZTNW NAIL, 6 OR MORE 08/27/2015 10391-BITXOXQ NAIL, 6 OR MORE 11/26/2015 44746-FANNHCR NAIL, 6 OR MORE 02/25/2016 41856-BGOBKEQ NAIL, 6 OR MORE 06/01/2016 68293-MOCRVKS NAIL, 6 OR MORE 08/31/2016 01454-BXAYQVW NAIL, 6 OR MORE 03/21/2013 32276-QFCLEYR NAIL, 6 OR MORE 06/13/2013 91232-BLFPXAR NAIL, 6 OR MORE 09/11/2013 02476-FOMZZXC NAIL, 6 OR MORE 12/04/2013 32916-ONMUCJL NAIL, 6 OR MORE 03/05/2014 07005-RVMMCYJ NAIL, 6 OR MORE 05/26/2014 11061-VSSYIKT NAIL, 6 OR MORE 09/10/2014 95662-BXFPHAJ NAIL, 6 OR MORE 12/01/2016 76868-JEIXQSH NAIL, 6 OR MORE 03/02/2017 05385-PUUWMQV NAIL, 6 OR MORE 06/01/2017 36400-JRCMIMU NAIL, 6 OR MORE 08/31/2017 35095-KCYYPAJ NAIL, 6 OR MORE 11/30/2017 51486-XLIMDCF NAIL, 6 OR MORE 03/12/2018 34870-KLUWCZL NAIL, 6 OR MORE 06/11/2018 21377-FJEHOCQ NAIL, 6 OR MORE 09/05/2018 79934-VZSFEHW NAIL, 6 OR MORE 11/26/2018 31058-CSAQZVV NAIL, 6 OR MORE 02/25/2019 56730-HALXOUG NAIL, 6 OR MORE 05/27/2019 31903-OIERIMQ NAIL, 6 OR MORE 08/26/2019 06399-EDLXYCW NAIL, 6 OR MORE 11/25/2019 07128-JLMBEAG NAIL, 6 OR MORE 02/27/2020 56570-TYKRKVD NAIL, 6 OR MORE 05/28/2020 46791-DQEZQGX NAIL, 6 OR MORE 08/27/2020 34835-ZBVPWRC NAIL, 6 OR MORE 12/03/2020 74022-CJJHTGM NAIL, 6 OR MORE 03/04/2021 48352-ZLEILBR NAIL, 6 OR MORE 07/26/2021 63555-SYDYTTH NAIL, 6 OR MORE 11/04/2021 26283-DYGMKUC NAIL, 6 OR MORE 02/03/2022 53167-HIHVNLR NAIL, 6 OR MORE 05/05/2022 54552-RMUHIVD NAIL, 6 OR MORE 09/22/2022 42683-Jpcgzwlb Plate 03/21/2013 01587-Bneplqzb Plate Each Additional 08/2012 11156-JPUT SKIN LESIONS, 2 TO 4 03/21/20 13 80954-JPVQ SKIN LESIONS, 2 TO 4 09/12/19 14 59682-SDMH SKIN LESIONS, 2 TO 4 06/13/19 14 96864-RBND SKIN LESIONS, 2 TO 4 09/11/19 15 94741-CRSN SKIN LESIONS, 2 TO 4 05/26/19 15 09414-KWBO SKIN LESIONS, 2 TO 4 03/05/20 14 23855-NAHC SKIN LESIONS, 2 TO 4 12/05/19 14 20351-LBFR SKIN LESIONS, 2 TO 4 12/02/19 17 17783-URZQ SKIN LESIONS, 2 TO 4 06/01/19 17 52939-HPGO SKIN LESIONS, 2 TO 4 09/01/19 17 97392-JWBD SKIN LESIONS, 2 TO 4 02/25/20 16 39880-GYZU SKIN LESIONS, 2 TO 4 11/26/19 16 82215-QYXX SKIN LESIONS, 2 TO 4 08/27/19 16 33528-IJRX SKIN LESIONS, 2 TO 4 05/28/19 16 21351-HCOB SKIN LESIONS, 2 TO 4 12/04/19 15 19343-EECH SKIN LESIONS, 2 TO 4 03/04/20 15 91237-VHVP SKIN LESIONS, 2 TO 4 12/04/19 21 98344-IEKW SKIN LESIONS, 2 TO 4 08/28/19 21 23780-EXVN SKIN LESIONS, 2 TO 4 05/28/19 21 24385-JZXD SKIN LESIONS, 2 TO 4 02/27/20 20 14709-QGVI SKIN LESIONS, 2 TO 4 08/26/19 20 37579-AARJ SKIN LESIONS, 2 TO 4 05/27/19 20 98798-MHTJ SKIN LESIONS, 2 TO 4 02/26/20 19 19625-FAUQ SKIN LESIONS, 2 TO 4 11/27/19 19 31191-MHRY SKIN LESIONS, 2 TO 4 09/06/19 19 43997-GOSN SKIN LESIONS, 2 TO 4 06/11/19 19 71306-SEBY SKIN LESIONS, 2 TO 4 03/12/20 18 32885-CTKO SKIN LESIONS, 2 TO 4 12/01/19 18 55707-EPFJ SKIN LESIONS, 2 TO 4 09/01/19 18 08184-BOTR SKIN LESIONS, 2 TO 4 06/01/19 18 90186-GGNG SKIN LESIONS, 2 TO 4 03/02/20 17 58956-AJDS SKIN LESIONS, 2 TO 4 09/23/19 23 69984-XSZX SKIN LESIONS, 2 TO 4 05/05/19 23 15188-AYYJ SKIN LESIONS, 2 TO 4 11/25/19 20 03140-SAPD SKIN LESIONS, 2 TO 4 02/04/20 75073-SZFN SKIN LESIONS, 2 TO 4 11/05/19 76235-JDBX SKIN LESIONS, 2 TO 4 07/27/19 27397-GOQV SKIN LESIONS, 2 TO 4 03/04/20 22681-Ovso. Subungual Hematoma 0 Insurance Providers Payer Name Payer Address Payer Phone Subscriber Number Group Number Insured Name Patient Relationship to Insured Coverage Start Date Coverage End Date Medicare National Govt Sv[employer] [address] [place] [address] [id number] Tony Thompson Self - patient is the insured 5 [employer] Secondary to Medicare [address] [place] [address] [id number] Tony Thompson Self - patient is the [...] leg 08/2022 [facility], Fell 04/30/22 [facility] in [place] for 8 days 07/03/21 [facility] [place], Covid relate d issues 06/24/21 [facility] Covid 06/08 [facility], Covid 04/26/21 [facility], ENG 07/2020 [facility] Issues with Diabetes 2020 [facility]2019 [facility], stent left knee 07/2018 [facility] lower back and leg pain 11/22/17 Colonoscopy 09/2016 Heart transplant in [place] 04/19/15 [facility] -heart transplant 04/16-05/10/13 [facility] for blood clots in the pump for 10 day stay 01/2013
--- OUTSIDE RECORDS SUMMARY | 2024-06-13 17:20 | XMS_ITS | Encounter Summary ---
Author Organization [facility] Address [address] [place] [address] Phone Care Team Providers Care Soil Tester Name Role Phone Dung Chen MD Primary Care Provider + [phone] Encounter Details Date Type Department Care Team (Late st Contact Info) Description 01/23/2024 Documentation Only [facility] [address] [place] [address] Lela Mtz [place] [address] [place] [phone] Social History Tobacco Use Types Packs/Day Years [...] Visit [facility] [address] [place] [address] Julian Paris MD [address] [place] [address] [place] [address] documented as of this encounter Visit Diagnoses Not on filedocumented in this encounter Care Teams Soil Tester Relationship Specialty Start Date End Date Dung Chen MD [address] [place], [place] [id number] PCP - General Internal Medicine 01/23/24 documented as of this encounter
--- OUTSIDE RECORDS SUMMARY | 2024-06-13 17:20 | XMS_ITS | Clinical Summary ---
Author Organization [facility] Address [address] [place] [address] Care Team Providers Care Batch Still Operator Name Role Phone Dung Chen MD Primary Care Provider [phone] Allergies No known active allergies Medications Medication [...] age to complete this topic Care Teams Batch Still Operator Relationship Specialty Start Date End Date Dung Chen MD [address] [facility] [place] [address] PCP - General Internal Medicine 04/11/19
--- OUTSIDE RECORDS SUMMARY | 2024-06-13 17:20 | XMS_ITS | Clinical Summary ---
Author Organization [employer] [facility] [facility] Address [address] [place] [address] Care Team Providers Care Basket Machine Operator Name Role Phone Dung Chen MD Primary Care Provider Immunizations Name Administration Dates Next Due Pfizer SARS-CoV-2 COVID-19, mRNA, LNP-S, preservative free 06/13/2020,05/17/2020 Surgical History Surgery Date Site/Laterality Comments CORONARY ARTERY BYPASS GRAFT 1997 PROCEDURE: HISTORICAL CABG OTHER SURGICAL HISTORY 10/07/2011 PROCEDURE: ---- OTHER ----; COMMENT: teeth extracted OTHER SURGICAL HISTORY 01/2012 PROCEDURE: ---- OTHER ----; COMMENT: LVAD OTHER SURGICAL HISTORY 04/17/2013 PROCEDURE: [facility] HE[facility] TRANSPLANT W/WO RECIPIENT CARDIECTOMY CATARACT EXTRACTION 09/18/2014 Right PROCEDURE: HISTORICAL CATARACT REMOVAL FLEXIBLE SIGMOIDOSCOPY 05/26/2008 PROCEDURE: HISTORICAL FLEXIBLE SIGMOIDOSCOPY; COMMENT: Negative to 50 cm COLONOSCOPY 10/03/2016 PROCEDURE: HISTORICAL COLONOSCOPY; COMMENT: 5 mm right colon polyp, random biopsies: Small tubular adenoma; random biopsies normal. UPPER GASTROINTESTINAL ENDOSCOPY 10/03/2016 PROCEDURE: WA UPPER GI ENDOSCOPY PERFORMED; COMMENT: Visually normal; [...] Documents on File Type Date Recorded Patient Scenic Arts Supervisor Expl anation Health Care Decision (hx) 05/16/2023 [...] (hx) 09/23/2020 AD PIERCE DIRECTIVE Care Teams Basket Machine Operator Relationship Specialty Start Date End Date Dung Chen MD PCP - General Internal Medicine 04/11/19
== END 2024-06-13 15:06 | disposition home or self-care (01) ==
PROVIDERS: PCP Internal Medicine; Visit Provider Physician Assistant
DX: Z98.1 Arthrodesis status (principal)
CPT/HCPCS: 99024

== ENCOUNTER → 2024-06-13 14:14 | Outpatient (BNVA) | payer MEDICARE, SELFPAY | PROVIDERS: PCP Internal Medicine; Visit Provider Physician Assistant | DX: Z47.89 Encounter for other orthopedic aftercare (principal); Z98.1 Arthrodesis status | CPT/HCPCS: 99212 ==

== ENCOUNTER 2025-03-05 10:46 | Outpatient (AMB) | payer MEDICARE, SELFPAY ==
--- NOTE | 2025-03-05 10:54 | MHC.OFFVIS ---
Intake Visit Reasons: OV - LT shoulder pain Intake Note: Tony is a 74 year old male who presents with complaints of progressively worsening left shoulder pain. He describes his pain as sharp in nature. Most of the pain is along the lateral aspect of his left shoulder. At his last visit he did have a cortisone injection given into his right shoulder. He got fairly good relief from that injection. He wishes to hold off on surgery if at all possible. Allergies No Known Allergies Allergy (Verified 03/05/25 10:59) Medication List - Last Reconciled 03/05/25 by Nirmal Gutierres MD amlodipine 5 mg PO QAM aspirin 81 mg PO QAM Held on 05/23/24. Instructions: Resume on 05/27/24. Hold carvedilol 3.125 mg PO BID cholecalciferol (vitamin D3) (Vitamin D3) 25 mcg PO QAM clopidogrel 75 mg PO QAM Held on 05/23/24. Instructions: Resume on 05/28/24. you may resume plavix 5 days after surgery cyanocobalamin (vitamin B-12) (Vitamin B-12) 1,000 mcg PO QAM dulaglutide (Trulicity) 4.5 mg subcut QWEEK duloxetine 40 mg PO BEDTIME gabapentin 600 mg PO TID insulin degludec (Tresiba FlexTouch U-200 insulin) 4 units subcut QAM insulin degludec (Tresiba FlexTouch U-200 insulin) 4 units subcut BEDTIME insulin lispro (Humalog U-100 Insulin) 10 - 20 units subcut TIDAC mycophenolate sodium 360 mg PO BID oxycodone 5 mg PO Q6H PRN pantoprazole 40 mg PO QAM pen needle, diabetic (BD Ultra-Fine Short Pen Needle) As directed prednisone 5 mg PO QAM rosuvastatin 20 mg PO BEDTIME tacrolimus 3 mg PO BID trazodone 200 mg PO BEDTIME PRN valsartan 320 mg PO QAM PFSH Medical History (Updated 03/05/25 @ 12:48 by Nirmal Gutierres MD) Pneumonia Cataract Amputation of toe Hx of thrombosis History of positive PPD Erosive gastropathy Colon polyp Erectile dysfunction Microscopic hematuria Immunosuppressed status Unsteady gait Ischemic cardiomyopathy DAY (generalized anxiety disorder) Dyslipidemia CHD (congenital heart disease) Chronic kidney disease Sleep apnea Headache Left foot drop Back pain Depression Osteopenia Dry eye Tremor Dysautonomia Insomnia Neck pain Presbyesophagus Esophageal dysmotility BPH (benign prostatic hyperplasia) Hyperparathyroidism Guillain-Hudson syndrome Leukopenia Neuropathy PVD (peripheral vascular disease) Myocardial infarction Cellulitis History of COVID-19 Hx MRSA infection Diabetes Hx of deep venous thrombosis Immune disorder High cholesterol High blood pressure Acid reflux Surgical History (Updated 05/09/24 @ 10:42 by Brandi Scott RN) History of surgery on lower extremity Hx of shoulder surgery Hx of squamous cell carcinoma excision Hx of cataract surgery Status post arterial stent History of esophagogastroduodenoscopy (EGD) H/O angioplasty AICD (automatic cardioverter/defibrillator) present History of lumbar fusion Hx of cervical spine surgery History of left ventricular assist device (LVAD) Hx of CABG Hx of heart transplant Social History Household Members: Spouse Housing: House Are you a primary client care manager to a significant other at home: No Do you presently have visiting nurse or other home services: No Comment: counts correct Patient Tobacco Use Status: Former Tobacco user Tobacco use type: Cigarette Years Smoked: 25 service: No Current occupational status: disabled 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 Physical Exam Extrem Other: Left shoulder examination shows full range of motion when compared to his right shoulder, positive impingement signs, 4+ out of 5 strength with supraspinatus testing, no instability Office Procedures AMB Joint Injection/Aspiration Joint Injection/Aspiration Primary Site: Left Shoulder Prep: site was prepped using aseptic technique Injected: 40 mg of, DepoMedrol, with 3 mL of and 1% plain Lidocaine Procedure: The patient tolerated the procedure well Coding 39173 - Large joint Procedure code (CPT) selection complete Assessment & Plan Assessment & Plan (1) Impingement syndrome of left shoulder: Code(s): M75.42 - Impingement syndrome of left shoulder Category: Medical Plan Mr. Thompson presents with left shoulder pain due to impingement syndrome. The risks and benefits of a left shoulder cortisone injection were discussed at length with the patient. The patient wished to proceed. He tolerated the injection well. He will continue with his home exercise program. The do's and don'ts of lifting were discussed at length with the patient. He will follow up with me on an as-needed basis should his symptoms not plateau at an unacceptable level over the next few months. Feel free to call me at any time should questions regarding his orthopedic management arise. I spent 20 minutes in reviewing the patient's records and imaging studies, seeing the patient and documenting in the medical record. Orders: Orders AMB Joint Injection/Aspiration Today M75.42 - Impingement syndrome of left shoulder Coding Level of Care Code Est Pt Level 3 (99234) Complex EM visit Add On G2211 Diagnoses Impingement syndrome of left shoulder M75.42 CPT Codes Coding - 62491 Large joint: 76901 - Large joint ([id number])
--- OUTSIDE RECORDS SUMMARY | 2025-03-05 21:11 | XMS_ITS | Encounter Summary ---
Author Organization [facility] Address [address] [place] [address] Phone Care Team Providers Care Buckle Frame Shaper Name Role Phone Dung Chen MD Primary Care Provider +- [phone] Tia Granda NP Unavailable [email or web address] Annita Watson MD Unavailable [phone] Carlos Alberto Stanford MD Unavailable [phone] Han Hopkins MD, MARIA L Unavailable Dung Chen MD Unavailable [phone] Norma Sanchez Unavailable [phone] Encounter Details Date Type Department Care Team (Latest Contact Info) Description 12/02/2014 Transcribe Orders [facility] EKG [address] [place] [address] [email or web address] Heart replaced by transplant (Primary Dx) Social History Tobacco Use Types Packs/Day Years Used Date Smoking Tobacco: Former Sex and Gender Information Value Date Recorded Sex Assigned at Not on file Legal Sex Male 6:47 PM EST Gender Identity Not on file Sexual Orientation Not on file documented as of this encounter Plan of Treatment Upcoming Encounters Date Type Department Care Team (Late st Contact Info) Description 01/21/2025 Procedure Pass [facility] Echocardiography [address] [place] [address] 07/17/2025 10:00 AM EDT Appointment [facility] Echocardiography [address] [place] [address] Annita Holden, JEWEL SAWYER [address] [place] [address] [email or web address] 07/17/2025 11:00 AM EDT Office Visit [facility] Cardiac Transplant [address] [place] [address] Unknown, Jeaneth, documented as of this encounter Visit Diagnoses Diagnosis Heart replaced by transplant- Primary documented in this encounter Additional Health Concerns Infection Onset Date Last Indicated Resolved Time CoV-Risk 05/27/2021 05/27/2021 06/06/2021 1:23 AM EST CoV-Risk 06/23/2021 06/23/2021 06/23/2021 4:20 PM EST COVID-19 Comment:Case Reviewed: 70 yo M with h/o 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 He was treated with prednisone no remdesivir or mAbs. pt presented to OSH with AMS, weakness, myalgias, fever, altered mental status, mild dysuria . He was found to be COVID+, transferred to [facility] for further management. Assessment: Recent swabs were negative and CT >33 with SARS CoV test Nucelopcapsid antibodies reactive and no hypoxemia. This is indicative of residual viral RNA fragments from prior infection rather than active infection. No concern for potential infectious risk at this point. Plan: Remove COVID-19 flag. Was originally infected in April; will institute CoV-Recovered flag to start from 04/24/21-07/23/21 Michelle Wilson RN 06/23/2021 06/23/2021 06/25/2021 3:[address] Assessment Noted Time PHQ-9 Depression Total Score: 1 11/21/19 15 11:24 AM EDT PHQ-2 Depression Total Score: 1 11/21/19 15 11:24 AM EDT documented as of this encounter Care Teams Buckle Frame Shaper Relationship Specialty Start Date End Date Dung Chen MD [address] [place] [address] PCP - General 08/21/14 Tia Granda [email or web address] Historical LMR Provider 08/30/14 02/21/21 Annita Watson MD [address] [place] [address] Neurosurgery 09/17/19 Carlos Alberto Stanford MD [address] [place] [address] Fire Extinguisher Charger Internal Medicine 07/10/23 07/18/24 Han Hopkins MD, MARIA L [address] [place] [address] [email or web address] Interventional Radiology 07/10/23 Dung Chen MD [address] [place] [address] Internal Medicine 07/10/23 Norma Sanchez PA [address] [place] [address] Fire Extinguisher Charger Physician Tester [employer] 07/18/24 documented as of this encounter Additional Source Comments The information contained in this document represents components of the legal health record. It is not the complete legal health record.[facility]
--- OUTSIDE RECORDS SUMMARY | 2025-03-05 21:11 | XMS_ITS | Encounter Summary ---
Author Organization [facility] Address [address] [place] [id number] Phone Care Team Providers Care Cutter Finisher Name Role Phone Dung Chen MD Primary Care Provider [phone]- [phone] Tia Granda NP Unavailable [email or web address] Annita Watson MD Unavailable [phone] Carlos Alberto Stanford MD Unavailable [phone] Han Hopkins MD, MARIA L Unavailable Dung Chen MD Unavailable [phone] Norma Sanchez Unavailable [phone] Encounter Details Date Type Department Care Team (Latest Contact Info) Description 03/17/2015 Transcribe Orders [facility] EKG [address] [place] [address] Adriel Rivera MD, MPH [address] [facility] [id number] [place] [address] [email or web address] Heart replaced by transplant (Primary Dx); Heart failure, unspecified Social History Tobacco Use Types Packs/Day Years Used Date Smoking Tobacco: Former Sex and Gender Information Value Date Recorded Sex Assigned at Not on file Legal Sex Male 6:47 PM EST Gender Identity Not on file Sexual Orientation Not on file documented as of this encounter Plan of Treatment Upcoming Encounters Date Type Department Care Team ([facility] st Contact Info) Description 01/21/2025 Procedure Pass [facility] Echocardiography [address] [place] [address] 07/17/2025 10:00 AM EDT Appointment [facility] Echocardiography [address] [place] [address] Annita Holden, IRON [address] [place] [address] [email or web address] 07/17/2025 11:00 AM EDT Office Visit [facility] Cardiac Transplant [address] [place] [address] Unknown, Unknown, documented as of this encounter Results * (ABNORMAL) TTE COMPREHENSIVE (04/13/2015 11:55 AM EST) Ejection Fraction 65.00 50 - 75 % Left Ventricular Mass 236.59 g Left Ventricle indexed to BSA 108.03 g/mL Relative Wall Thickness 0.67(A) 0.22 - 0.42 Left Ventricle E Wave Speed 63.70 cm/s Left Ventricle A Wave Speed 38.00 cm/s Left Ventricle Ea Septal Wave Speed cm/s Echo E/Ea 5.80 Left Ventricle Ea Lateral Wave Speed cm/s Raw LV EF% % Left Ventricular Apical Contribution Mitral Valve Deceleration Time ms Left Ventricle Diastolic Volume mL Left Ventricle Diastolic Volume Index mL/m2 Left Ventricle Systolic Volume mL Left Ventricle Systolic Volume Index mL/m2 Left Ventricular Outflow Tract Velocity m/s Left Ventricular Outflow Tract Gradient at Rest mmHg Left Ventricle Mid Gradient mmHg Left Ventricular Outflow Tract Gradient at Valsalva mmHg Left Ventricle Internal Diameter End Diastole 36.00(A) 42 - 58 mm Left Ventricle Internal Diameter End Systole 28.00 25.0 - 39.8 mm Interventricular Septum Thickness 2.10 cm Left Ventricular Posterior Wall Thickness 1.20 cm Pulmonary Artery Pressure mmHg Right Ventricle Estimated PA Pressure 26.21 mmHg Inferior Vena Cava Diameter 0.0 - 2.1 cm Right Ventricular Outflow Tract Stroke Volume cm3 Right Ventricle TAPSE 17 - 31 mm Right Ventricle Tricuspid Anular Systolic Motion (S') cm/s Right Ventricle Ejection Fraction 3D Equation 45 - 71 % Right Ventricle Basal Diameter 25 - 41 mm Right Ventricle Mid Diameter 19 - 35 mm Right Ventricle Longitudinal Diameter 59 - 83 mm Right Ventricular Outflow Tract PLAX Diameter 20 - 30 mm Right Ventricular Outflow Tract Proximal Diameter 21 - 35 mm Right Ventricular Outflow Tract Distal Diameter 17 - 27 mm Right Ventricle Wall Thickness Max 1 - 5 mm Right Ventricle Pulse Doppler S Wave 9.5 - 18.7 cm/s Right Ventricle Color Doppler S Wave 6 - 13.4 cm/s Right Ventricle Fractional Area Change (FAC) Right Ventricle Free Wall 2D Strain -20 - -38 % Right Ventricle Pulse Doppler MPI 0.09 - 0.43 Right Ventricle Tissue Doppler MPI 0.22 - 0.54 Left Atrium Dimension Anterior-Posterior 55.00 mm Left Atrium Dimension Superior-Inferior 2.9 - 5.3 cm Left Atrium Dimension Medial-Lateral 2.9 - 4.9 cm Left Atrial Appendage Velocity cm/s Left Atrial Volume mL Left Atrial Volume Index mL/m2 Pulmonary Vein S/D Ratio Pulmonary Venous Atrial Reverse Wave Duration msec Pulmonary Peak Systolic Velocity m/s Pulmonary Peak Diastolic Velocity m/s Right Atrium Dimension Superior-Inferior mm Right Atrium Dimension Medial-Lateral mm Mitral Valve Total Score Mitral Valve Mobility Score Mitral Valve Calcification Score Mitral Valve Thickening Score Mitral Valve Subvalvular Score Mitral Valve Peak Gradient mmHg Mitral Valve Mean Gradient mmHg Mitral Valve Gradient HR bpm Mitral Valve Gradient Cardiac Output L/min Mitral Valve Area Planimetry Equation cm2 Mitral Valve Area Pressure Half Time Eq cm2 Mitral Valve Area Continuity Equation cm2 Mitral Valve Area PISA Equation cm2 Mitral Valve Vnyquist m/s Mitral Valve Area cm2 Mitral Valve PISA Angle Correction deg Mitral Valve Regurgitant Fraction % Mitral Valve Jet Area Ratio Mitral Valve Vena Contracta cm Mitral Valve EROA cm2 Mitral Valve PISA Radius cm Mitral Valve Aliasing Velocity cm/s Mitral Valve Peak Velocity cm/s Mitral Valve Regurgitation Time Volume Integral cm Mitral Valve EROA 3D Equation cm2 Mitral Valve Regurgitant Volume PISA Equation ml Mitral Valve Regurgitant Volume Doppler ml Mitral Valve C-SEPT Mitral Valve Coaptation Length cm Mitral Valve Tenting Area cm2 Mitral Valve Tenting Volume ml Mitral Valve Anterior Leaflet Length cm Mitral Valve Anterior Leaflet Area cm2 Mitral Valve Posterior Leaflet Length cm Mitral Valve Posterior Leaflet Area cm2 Mitral Valve Anterior/Posterior Ratio Mitral Valve Annular Diameter AP Diastolic cm Mitral Valve Annular Diameter AP Systolic cm Mitral Valve Annular Diameter Commissural Diastolic cm Mitral Valve Annular Diameter Commissural Systolic cm Mitral Valve Annular Area Systolic cm2 Mitral Valve Annular Perimiter Systolic cm Aorta Mitral Angle deg Mitral Valve Annular Area Diastolic cm2 Mitral Valve Annular Perimiter Diastolic cm Mitral Valve Intertrigonal Distance Systolic cm Mitral Valve Intertrigonal Distance Diastolic cm Pulmonary Artery Systolic Pressure Estimated 17.47 mmHg Right Atrium Pressure Estimated mmHg Tricuspid Valve Peak Velocity 2.09 m/s Right Ventricle to Right Atrium Pressure Gradient mmHg Tricuspid Valve Pressure Half Time Equation cm2 Tricuspid Valve Peak Gradient 16.00 mmhg Tricuspid Valve Mean Gradient mmHg Tricuspid Valve Annulus Area cm2 Tricuspid Valve Annulus Dimension Anterior-Posterior cm Tricuspid Valve Annulus Dimension Medial Lateral cm Tricuspid Valve Anterior Leaflet Area cm2 Tricuspid Valve Posterior Leaflet Area cm2 Tricuspid Valve Septal Leaflet Area cm2 Tricuspid Valve Deceleration Time ms Tricuspid Valve E Wave Velocity Max cm/s Right Ventricle Peak Systolic Pressure 26.21 mmHg Tricuspid Valve Vena Contracta cm Tricuspid Valve Regurgitant Volume ml Tricuspid Valve Regurgitant Volume Fraction % Tricuspid Valve Vnyquist m/s Tricuspid Valve PISA Radius cm Tricuspid Valve EROA PISA Equation cm2 Aortic Valve Peak Gradient mmHg Aortic Valve Mean Gradient mmHg LVOTmvPGR1 mmHg LVOT Gradient Mid Ventricle Peak Valsalva mmHg Left Ventricular Outflow Tract Diameter cm Aortic Valve Area cm2 Aortic Valve Area Index cm2/m2 Aortic Valve Annulus Dimension 1 2.0 - 3.2 cm Aortic Sinus Diameter cm Sinotubular Junction Diameter 2.3 - 3.5 cm Ascending Aorta Diameter cm Aortic Arch Diameter cm Aortic Isthmus Diameter cm Aortic Valve Aliasing Velocity cm/s Sinus of Valsalva Index 1.3 - 2.1 cm/m2 Proximal Ascending Aorta Index 1.1 - 1.9 cm/m2 Aortic Valve Regurgitant Volume ml Aortic Valve Regurgitant Fraction % Aortic Valve Regurgitation Pressure Half Time ms Aortic Valve Vena Contracta cm Aortic Valve Vnyquist m/s Aortic Valve PISA Radius cm Aortic Regurgitation Max Velocity m/s Aortic Valve EROA cm2 Aortic Valve Deceleration Time ms Aortic Valve Jet Height to Left Vent Outflow Tract Descending Aorta Diameter cm Aortic Valve Regurgitation Time Volume Integral cm Aortic Valve Peak Diastolic Velocity cm/s Aortic Valve Annulus Area cm2 Aortic Valve Annulus Dimension 2 cm Aortic Valve Annulus Perimeter cm Aortic Valve Mean Diameter cm Aortic Valve Distance to Coronary [place] (LM) cm Aortic Valve Distance to Coronary [place] (RCA) cm Aortic Valve Left Coronary Leaflet Length cm Aortic Valve Right Coronary Leaflet Length cm Aortic Valve Peak Velocity cm/s Pulmonary Valve Peak Gradient mmHg Pulmonary Valve Mean Gradient mmHg Pulmonary Valve Peak Velocity m/s Pulmonary Valve Area cm2 Right Ventricular Outflow Tract Gradient mmHg Right Ventricular Outflow Tract Peak Velocity m/s Pulmonary Valve Annulus Dimension mm Pulmonary Artery Main - Dimension mm Pulmonary Artery Right - Dimension mm Pulmonary Artery Left - Dimension mm Right Ventricular Outflow Tract Pressure mmHg Pulmonary Artery Acceleration Time msec Pulmoary Artery Deceleration Time msec Pulmonary Artery End Diastolic Pressure mmHg Pulmonary Valve Pressure Half Time ms Patent Ductus Arteriosus Dimension mm Right Ventricular Outflow Tract Velocity Time Integral cm Pericardium Effusion Dimension 1 cm Pericardium Effusion Dimension 2 cm Pericardium Effusion Dimension 3 cm Wall Thickness Max cm Left Ventricle Aneurysm Dimension 1 cm Left Ventricle Aneurysm Dimension 2 cm Left Ventricle Aneurysm Dimension 3 cm Left Ventricle Pseudoaneurysm Dimension 1 cm Left Ventricle Pseudoaneurysm Dimension 2 cm Left Ventricle Pseudoaneurysm Dimension 3 cm Left Ventricle Thrombus Dimension 1 cm Left Ventricle Thrombus Dimension 2 cm Left Ventricle Thrombus Dimension 3 cm Left Ventricle Mass Dimension 1 cm Left Ventricle Mass Dimension 2 cm Left Ventricle Mass Dimension 3 cm Right Ventricle Linear Dimension cm Right Ventricle Thrombus Dimension 1 cm Right Ventricle Thrombus Dimension 2 cm Right Ventricle Thrombus Dimension 3 cm Ventricular Septal Defect Dimension mm Ventricular Septal Defect Dimension 2 cm Conoventricular Ventricular Septal Defect Dimension 1 mm Conoventricular Ventricular Septal Defect Dimension 2 mm Membranous Ventricular Septal Defect Dimension 1 mm Membranous Ventricular Septal Defect Dimension 2 mm Muscular Ventricular Septal Defect Dimension 1 mm Muscular Ventricular Septal Defect Dimension 2 mm Canal Type Ventricular Septal Defect Dimension 1 mm Canal Type Ventricular Septal Defect Dimension 2 mm Intraconal Ventricular Septal Defect Dimension 1 mm Intraconal Ventricular Septal Defect Dimension 2 mm Post Infarction Ventricular Septal Defect Dimension 1 mm Post Infarction Ventricular Septal Defect Dimension 2 mm Ventricular Septal Defect Peak Velocity Ventricular Septal Defect Gradient mmHg Post Operative Ventricular Septal Defect Dimension 1 mm Post Operative Ventricular Septal Defect Dimension 2 mm Echo Qp/Qs Ratio Mechanical Assist RPM 1 RPM Aortic Valve Distance to Cannula Tip cm Cannula Left Ventricle Inflow Velocity m/s Cannula Left Ventricle Outflow Velocity m/s Cannula Right Ventricle Inflow Velocity m/s Cannula Right Ventricle Outflow Velocity m/s RPM1 Tricuspid Regurgitation Velocity Max m/s RPM1 Right Ventricle Systolic Pressure mmHg RPM1 Left Ventricular Outflow Tract Velocity Time Integral cm RPM1 Mitral Valve Deceleration Time ms RPM1 Left Ventricle Inner Diameter End Diastolic mm RPM1 Left Ventricle Inner Diameter End Systolic mm RPM1 Left Ventricle End Diastolic Velocity m/s RPM1 Left Ventricle End Systolic Velocity m/s Mechanical Assist RPM 2 RPM RPM2 Left Ventricle Inner Diameter End Diastolic mm RPM2 Left Ventricle Inner Diameter End Systolic mm RPM2 Left Ventricle End Diastolic Velocity m/s RPM2 Left Ventricle End Systolic Velocity m/s RPM2 Tricuspid Regurgitation Velocity Max m/s RPM2 Right Ventricle Systolic Pressure mmHg RPM2 Left Ventricular Outflow Tract Velocity Time Integral cm RPM2 Mitral Valve Deceleration Time ms Mechanical Assist RPM 3 RPM RPM3 Left Ventricle Inner Diameter End Diastolic mm RPM3 Left Ventricle Inner Diameter End Systolic mm RPM3 Left Ventricle End Diastolic Velocity m/s RPM3 Left Ventricle End Systolic Velocity m/s RPM3 Tricuspid Regurgitation Velocity Max m/s RPM3 Right Ventricle Systolic Pressure mmHg RPM3 Left Ventricular Outflow Tract Velocity Time Integral cm RPM3 Mitral Valve Deceleration Time ms Mechanical Assist RPM 4 RPM RPM4 Left Ventricle Inner Diameter End Diastolic mm RPM4 Left Ventricle Inner Diameter End Systolic mm RPM4 Left Ventricle End Diastolic Velocity m/s RPM4 Left Ventricle End Systolic Velocity m/s RPM4 Tricuspid Regurgitation Velocity Max m/s RPM4 Right Ventricle Systolic Pressure mmHg RPM4 Left Ventricular Outflow Tract Velocity Time Integral cm RPM4 Mitral Valve Deceleration Time ms Mechanical Assist RPM 5 RPM RPM5 Left Ventricle Inner Diameter End Diastolic mm RPM5 Left Ventricle Inner Diameter End Systolic mm RPM5 Left Ventricle End Diastolic Velocity m/s RPM5 Left Ventricle End Systolic Velocity m/s RPM5 Tricuspid Regurgitation Velocity Max m/s RPM5 Right Ventricle Systolic Pressure mmHg RPM5 Left Ventricular Outflow Tract Velocity Time Integral cm RPM5 Mitral Valve Deceleration Time ms Mechanical Assist RPM 6 RPM RPM6 Left Ventricle Inner Diameter End Diastolic mm RPM6 Left Ventricle Inner Diameter End Systolic mm RPM6 Left Ventricle End Diastolic Velocity m/s RPM6 Left Ventricle End Systolic Velocity m/s RPM6 Tricuspid Regurgitation Velocity Max m/s RPM6 Right Ventricle Systolic Pressure mmHg RPM6 Left Ventricular Outflow Tract Velocity Time Integral cm RPM6 Mitral Valve Deceleration Time ms RAMP Study Optimal Setting Value Left Atrium Thrombus Dimension 1 cm Left Atrium Thrombus Dimension 2 cm Left Atrium Thrombus Dimension 3 cm Left Atrium Mass Dimension 1 cm Left Atrium Mass Dimension 2 cm Left Atrium Mass Dimension 3 cm Pulmonary Veins Peak Doppler Velocity m/s Pulmonary Veins Peak Gradient mmHg Pulmonary Veins Mean Gradient mmHg Right Atrium Thrombus Dimension 1 cm Right Atrium Thrombus Dimension 2 cm Right Atrium Thrombus Dimension 3 cm Right Atrium Mass Dimension 1 cm Right Atrium Mass Dimension 2 cm Right Atrium Mass Dimension 3 cm Body Surface Area 2.19 m2 Height 175.26 cm Weight 104.33 kg Systolic BP 144.00 mmHg Diastolic BP 81.00 mmHg Atrial Septal Defect Dimension 1 cm Atrial Septal Defect Dimension 2 cm Atrial Septal Defect Area cm2 Interatrial Septum PFO Diameter mm Interatrial Septum PFO Tunnel Length cm Interatrial Septum Maximum Excursion mm Atrial Septal Defect Gradient mmHg Aortic Valve Time Velocity Integral cm Left Ventricular Outflow Tract Stroke Volume mL Left Ventricular Outflow Tract Stroke Volume Index mL/m2 LVOT VTI REST cm Left Ventricular Outflow Tract Cross Sectional Area cm2 Aortic Valve Dimensionless Index Aortic Valve Vegetation Dimension 1 cm Aortic Valve Vegetation Dimension 2 cm Aortic Valve Vegetation Dimension 3 cm Aortic Valve Abscess Dimension 1 cm Aortic Valve Abscess Dimension 2 cm Aortic Valve Abscess Dimension 3 cm Aortic Valve Mass Dimension 1 cm Aortic Valve Mass Dimension 2 cm Aortic Valve Mass Dimension 3 cm Aortic Valve Prosthetic Peak Gradient mmHg Aortic Valve Prosthetic Mean Gradient mmHg Aortic Valve Coaptation Length cm Aortic Valve Graft Diameter cm Aortic Valve Coarctation Velocity Peak m/s Aortic Valve Coarctation Peak mmHg Aortic Valve Coarctation Mean mmHg Left Ventricular Outflow Tract Gradient Peak Dobutamine mmHg Mitral Valve Peak Gradient at A Wave mmHg Mitral Valve Vegetation Size Anterior 1 cm Mitral Valve Vegetation Size Anterior 2 cm Mitral Valve Vegetation Size Anterior 3 cm Mitral Valve Vegetation Size Posterior 1 cm Mitral Valve Vegetation Size Posterior 2 cm Mitral Valve Vegetation Size Posterior 3 cm Mitral Valve Annular Diameter AP mm Mitral Valve Annular Diameter ML mm Mitral Valve Prosthetic Peak Gradient mmHg Mitral Valve Prosthetic Mean Gradient mmHg Tricuspid Valve Vegetation Dimension 1 cm Tricuspid Valve Vegetation Dimension 2 cm Tricuspid Valve Vegetation Dimension 3 cm Tricuspid Valve Mass Dimension 1 cm Tricuspid Valve Mass Dimension 2 cm Tricuspid Valve Mass Dimension 3 cm Tricuspid Valve Annulus Dimension 1 cm Tricuspid Valve Annulus Dimension 2 cm Tricuspid Valve Annulus Dimension 3 cm Tricuspid Valve Prosthetic Peak Gradient mmHg Tricuspid Valve Prosthetic Mean Gradient mmHg Pulmonary Valve Vegetation Dimension 1 cm Pulmonary Valve Vegetation Dimension 2 cm Pulmonary Valve Vegetation Dimension 3 cm Pulmonary Valve Mass Dimension 1 cm Pulmonary Valve Mass Dimension 2 cm Pulmonic Valve Prosthetic Peak Gradient mmHg Pulmonic Valve Prosthetic Mean Gradient mmHg Pericardium Extracardiac Mass Dimension 1 cm Pericardium Extracardiac Mass Dimension 2 cm Proximal Left Coronary Artery Dimension mm Proximal Right Coronary Artery Dimension mm Dyssynchrony IVMD Patient Value ms Dyssynchrony IVMD After Optimization ms Dyssynchrony LVPEI Patient Value ms Dyssynchrony LVPEI After Optimization ms Dyssynchrony LVFT/RR Patient Value % Dyssynchrony LVFT/RR After Optimization % Dyssynchrony OPWD Patient Value ms Dyssynchrony OPWD After Optimization ms Dyssynchrony MTD Patient Value ms Dyssynchrony MTD After Optimization ms Dyssynchrony Ts-DS Patient Value ms Dyssynchrony Ts-DS After Optimization ms Dyssynchrony [place]le Strain Patient Value ms Dyssynchrony [place] Strain After Optimization ms Dyssynchrony Tm_SV Patient Value ms Dyssynchrony Tm_SV After Optimization ms Dyssychrony VVI AF Sensed AV Delay ms Dyssynchrony VVI AF Paced AV Delay ms Dyssynchrony VVI AF VV Offset ms Dyssychrony AV Optimization Sensed AV Delay ms Dyssychrony AV Optimization Paced AV Delay ms Dyssychrony AV Optimization Unchanged (time) ms Dyssychrony VV Optimization Optimized Setting ms Dyssychrony VV Optimization Unchanged (time) ms Anatomical Region Laterality Modality Heart [facility] Narrative 04/13/2015 1:09 PM EST There is left ventricular hypertrophy with an upper septal predominance. Left ventricular systolic function appears normal. The ejection fraction is 65% The right ventricular systolic function is normal. Left Ventricle The left ventricular cavity size is small. The left ventricular wall thickness is increased. There is left ventricular hypertrophy with an upper septal predominance. Left ventricular systolic function appears normal. The ejection fraction is 65% (Normal 50-75%). The left ventricular ejection fraction was measured by visual estimate. There are no segmental left ventricular wall motion abnormalities noted. Left ventricular diastolic function appears abnormal. Right Ventricle The right ventricular size is normal. The right ventricular systolic function is normal. Left Atrium The left atrium is dilated. The left atrium is enlarged due to cardiac transplant. Right Atrium The right atrium is dilated. The IVC was not well visualized. Mitral Valve There is no evidence of mitral stenosis. There is diffuse mild increased mitral valve leaflet thickening. There is trace mitral regurgitation detected by spectral and color Doppler. Tricuspid Valve The tricuspid valve appears normal. Leaflet thickness is normal. There is color and spectral Doppler evidence of trace tricuspid regurgitation. The peak detected tricuspid regurgitation velocity is 2.09 m/s, consistent with an estimated pulmonary artery systolic pressure of 17.47 mmHg plus right atrial pressure. Aortic Valve The aortic valve is tricuspid. There is mild thickening of multiple aortic leaflets. There is no evidence of valvular aortic stenosis. There is evidence of trace aortic regurgitation by color and spectral Doppler. Pulmonic Valve The pulmonary valve appears normal. There is evidence of trace pulmonary regurgitation by color and spectral Doppler. Pericardium There is no evidence of pericardial effusion. Interventricular Septum Abnormal interventricular septal motion is consistent with post-operative state. General Findings The image quality was average. Comparison Findings Compared to prior study from 04/14/2014, There are no significant changes. us Adriel Rivera MD, MPH CV ECHO ORDERABLES Final Result * Stress Test Exercise with MVO2 (04/13/2015 10:53 AM EST) Anatomical Region Laterality Modality Heart [facility] 04/13/2015 10:0 0 AM EST Narrative 04/13/2015 12:[address] Rivera, Your patient Tony Thompson, a 64 year old male with known CAD and prior transplant (04/16/2013) was referred to us for a cardiopulmonary exercise ramp cycle test for post heart transplant evaluation. His cardiopulmonary risk factors include dyslipidemia, diabetes, a family history of ischemic heart disease and obesity. The patient's resting ECG showed sinus tachycardia and incomplete RBBB. He was on the following medications at the time of testing: Aspirin, Crestor, Lantus, Novolog, Cardura, Cellcept, Prograf, Prilosec. Exercise Protocol: Mr. Thompson exercised for 5:32 minutes of a 10-watt/min ramp cycle protocol to a maximum of 54 owusu. Oxygen saturation was measured at rest and stress using a pulse-oximeter. The heart rate increased from 96 bpm at rest to a peak heart rate of 101 bpm (64% age predicted maximal heart rate), and the blood pressure increased from 116/82 mm Hg at rest to 136/82 mm Hg at peak exercise (RPP: [id number]). Oxygen saturation remained unchanged at 98% during exercise. Exercise was terminated due to leg fatigue (diabetic neuropathy). The symptomatic response to exercise was non-ischemic. The blood pressure response was normal. The ECG response to exercise indicated no significant ST-T changes. No exercise-induced arrhythmia was observed. = ANTHROPOMETRICS = Age: 64 Gender: Male Height: 68 in/173 cm Weight: 230 lb/105 kg BMI: 35.0 kg/m2 = EXERCISE CAPACITY = Exercise Protocol: 10 owusu/min Maximum [place] Achieved: 54 owusu Exercise Duration: 5:32 (min:sec) Reason to End Exercise: Leg fatigue. Predicted Measured % of Predicted Rest VO2 (mL/min) 375 AT VO2 (mL/min) >40% of Peak VO2 Peak VO2 (mL/min) 2238 905 40% Peak VO2/kg(mL/kg/min) 8.7 = CARDIOVASCULAR RESPONSE = Symptomatic Response: Non-ischemic. Blood Pressure Response: Normal. ECG Response: Indicated no significant ST-T changes. Stress Induced Arrhythmias: No exercise-induced arrhythmia was observed. Predicted Measured % of Predicted Rest Heart Rate (bpm) 96 Peak Heart Rate (bpm) 157 101 64% HR [place] (bpm) 61 HR Recovery (1 min) > 12 -1 Rest Blood Press (mm Hg) 116/82 Peak Blood Press (mm Hg) 136/82 Peak O2 Pulse (mL/beat) 14.3 9 63% VO2/WR (mL/min/watt) > 10.2 +/- 1 9.8 HR/VO2 < 50 Rest RER 0.84 Peak RER 0.95 Hemodynamic Stage Data: Intensity Heart Blood RPE Speed (Grade Rate Pressure (Scale (MPH) or [place]) (bmp) (mm Hg) of 10) BASELINE Supine 96 116/82 Standing 97 118/88 STRESS Stage 1 30 97 124/82 2 Stage 2 54 101 136/82 RECOVERY IPE Standing 101 1 Minute 102 146/90 3 Minute 101 154/94 5 Minute 98 124/88 8 Minutes 98 112/76 = VENTILATORY RESPONSE = Measured Percent VE/VCO2 ([place]) 28.83 VE @ Peak 30.7 = GAS EXCHANGE VARIABLES = Rest Peak SaO2% 98% 97% In summary, the test results were: 1. Peak VO2 8.7 mL/kg/min (2.48 METS)at RER 0.95, which is 40% of the max VO2 based on the Rajani formula. 2. Normal VE/VCO2 slope of 28.83. 3. Peak Heart Rate: 101 bpm (64% age-predicted maximal heart rate). 4. Symptomatic Response: Non-ischemic. 5. Peak Blood Pressure: 136/82 mm Hg. 6. Blood Pressure Response: Normal. 7. ECG Response: No diagnostic ST segment changes were observed at the achieved exercise workload. 8. Stress-induced Arrhythmia: None. 9. Decreased peak O2 pulse that was 63% of predicted. 10. The anaerobic threshold was not achieved. CONCLUSION: 1. Inadequate exercise effort based on RER<1.05 (RER=0.95). 2. At the achieved exercise effort, the functional capacity was severely decreased based on peak VO2 that was 40% of predicted. 3. Normal VE/VCO2 slope. 3. Non-diagnostic test for myocardial ischemia due to inadequate exercise workload (<85% age-predicted maximal heart rate). 4. Decreased O2 pulse. 5. The anaerobic threshold was not achieved. 6. Blunted chronotropic response to exercise based on 5 beat per minute increase from rest (96 bpm) to peak exercise (101 bpm). Compared to prior MVO2 study dated 04/14/2014, the peak VO2 expressed as a percent of predicted has decreased from 46% to 40%. Critical test results were communicated to Dr. Rivera at 12:52pm on 04/13/2015. Stress ECG tracings available from [facility]'s [employer]. Thank you for referring this patient to us. Sincerely yours, Jayjay Robbins M.D., Attending Physician Wu Patel M.D., Attending Physician Procedure Note Wu Patel MD - 04/13/[address] Rivera, Your patient Tony Thompson, a 64 year old male with known CAD and priortransplant (04/16/2013) was referred to us for a cardiopulmonary exerciseramp cycle test for post heart transplant evaluation. His cardiopulmonaryrisk factors include dyslipidemia, diabetes, a family history of ischemic heart disease and obesity. The patient's resting ECG showed sinus tachycardia and incomplete RBBB.He was on the following medications at the time of testing: Aspirin,Crestor, Lantus, Novolog, Cardura, Cellcept, Prograf, Prilosec. Exercise Protocol: Mr. Thompson exercised for 5:32 minutes of a 10-watt/min ramp cycle protocolto a maximum of 54 owusu. Oxygen saturation was measured at rest andstress using a pulse- oximeter. The heart rate increased from 96 bpm atrest to a peak heart rate of 101 bpm (64% age predicted maximal heart rate), and the blood pressure increasedfrom 116/82 mm Hg at rest to 136/82 mm Hg at peak exercise (RPP: [id number]).Oxygen saturation remained unchanged at 98% during exercise. Exercise was terminated due to leg fatigue (diabetic neuropathy). Thesymptomatic response to exercise was non-ischemic. The blood pressureresponse was normal. The ECG response to exercise indicated nosignificant ST-T changes. No exercise-induced arrhythmia was observed. = ANTHROPOMETRICS = Age: 64 Gender: Male Height: 68 in/173 cm Weight: 230 lb/105 kg BMI: 35.0 kg/m2 = EXERCISE CAPACITY = Exercise Protocol: 10 owusu/min Maximum Owusu Achieved: 54 owusu Exercise Duration: 5:32 (min:sec) Reason to End Exercise: Leg fatigue. Predicted Measured % of Predicted Rest VO2 (mL/min) 375 AT VO2 (mL/min) >40% of Peak VO2 Peak VO2 (mL/min) 2238 905 40% Peak VO2/kg(mL/kg/min) 8.7 = CARDIOVASCULAR RESPONSE = Symptomatic Response: Non-ischemic. Blood Pressure Response: Normal. ECG Response: Indicated no significant ST-T changes. Stress Induced Arrhythmias: No exercise-induced arrhythmia was observed. Predicted Measured % of Predicted Rest Heart Rate (bpm) 96 Peak Heart Rate (bpm) 157 101 64% HR [place] (bpm) 61 HR Recovery (1 min) > 12 -1 Rest Blood Press (mm Hg) 116/82 Peak Blood Press (mm Hg) 136/82 Peak O2 Pulse (mL/beat) 14.3 9 63% VO2/WR (mL/min/watt) > 10.2 +/- 1 9.8 HR/VO2 < 50 Rest RER 0.84 Peak RER 0.95 Hemodynamic Stage Data: Intensity Heart Blood RPE Speed (Grade Rate Pressure (Scale (MPH) or Owusu) (bmp) (mm Hg) of 10) BASELINE Supine 96 116/82 Standing 97 118/88 STRESS Stage 1 30 97 124/82 2 Stage 2 54 101 136/82 RECOVERY IPE Standing 101 1 Minute 102 146/90 3 Minute 101 154/94 5 Minute 98 124/88 8 Minutes 98 112/76 = VENTILATORY RESPONSE = Measured Percent VE/VCO2 ([place]) 28.83 VE @ Peak 30.7 = GAS EXCHANGE VARIABLES = Rest Peak SaO2% 98% 97% In summary, the test results were: 1. Peak VO2 8.7 mL/kg/min (2.48 METS)at RER 0.95, which is 40% of the maxVO2 based on the Rajani formula. 2. Normal VE/VCO2 slope of 28.83. 3. Peak Heart Rate: 101 bpm (64% age-predicted maximal heart rate). 4. Symptomatic Response: Non-ischemic. 5. Peak Blood Pressure: 136/82 mm Hg. 6. Blood Pressure Response: Normal. 7. ECG Response: No diagnostic ST segment changes were observed at theachieved exercise workload. 8. Stress-induced Arrhythmia: None. 9. Decreased peak O2 pulse that was 63% of predicted. 10. The anaerobic threshold was not achieved. CONCLUSION: 1. Inadequate exercise effort based on RER<1.05 (RER=0.95). 2. At the achieved exercise effort, the functional capacity was severelydecreased based on peak VO2 that was 40% of predicted. 3. Normal VE/VCO2 slope. 3. Non-diagnostic test for myocardial ischemia due to inadequate exerciseworkload (<85% age-predicted maximal heart rate). 4. Decreased O2 pulse. 5. The anaerobic threshold was not achieved. 6. Blunted chronotropic response to exercise based on 5 beat per minuteincrease from rest (96 bpm) to peak exercise (101 bpm). Compared to prior MVO2 study dated 04/14/2014, the peak VO2 expressed as apercent of predicted has decreased from 46% to 40%. Critical test results were communicated to Dr. Rivera at 12:52pm on04/13/2015. Stress ECG tracings available from [facility]'s [employer]. Thank you for referring this patient to us. Sincerely yours, Jayjay Robbins M.D., Attending Physician Wu Patel M.D., Attending Physician us Adriel Rivera MD, MPH CV STRESS ORDERABLES Ksenia l Result documented in this encounter Visit Diagnoses Diagnosis Heart replaced by transplant- Primary Heart failure, unspecified Heart replaced by transplant Heart failure, unspecified Heart replaced by transplant Heart failure, unspecified documented in this encounter Additional Health Concerns [...] was found to be COVID+, transferred to [facility] for further management. Assessment: Recent swabs were [...] documented as of this encounter Care Teams Cutter Finisher Relationship Specialty Start Date End Date Dung Chen MD [address] [place] [address] PCP - General 08/21/14 Tia Granda NP [email or web address] Historical LMR Provider 08/30/14 02/21/21 Annita Watson MD [address] [place] [address] Neurosurgery 09/17/19 Carlos Alberto Stanford MD [address] [place] [address] Manager Film Internal Medicine 07/10/23 07/18/24 Han Hopkins MD, MARIA L [address] [place] [address] Interventional Radiology 07/10/23 Dung Chen MD [address] [place] [address] Internal Medicine 07/10/23 Norma Sanchez PA [address] [place] [address] Manager Film Physician Loader Operator/Ground Leader 07/18/24 documented as of this encounter Additional Source Comments The information contained in this document represents components of the legal health record. It is not the complete legal health record.[facility]
--- OUTSIDE RECORDS SUMMARY | 2025-03-05 21:11 | XMS_ITS | Encounter Summary ---
Author Organization [facility] Address [address] [place] [address] Phone Care Team Providers Care Pump Machine Operator Name Role Phone Dung Chen MD Primary Care Provider +- [phone] Tia Granda NP Unavailable [email or web address] Annita Watson MD Unavailable [phone] Carlos Alberto Stanford MD Unavailable [phone] Han Hopkins MD, MARIA L Unavailable Dung Chen MD Unavailable [phone] Norma Sanchez Unavailable [phone] Encounter Details Date Type Department Care Team (Latest Contact Info) Description 03/17/2015 Transcribe Orders [facility] Cardiac Stress Lab [address] [place] [address] Adriel Rivera MD, MPH [address] [facility] [address] [place] [address] [email or web address] Heart replaced by transplant (Primary Dx); Heart [...] st Contact Info) Description 01/21/2025 Procedure Pass [facility] Echocardiography [address] [place] [address] 07/17/2025 10:00 AM EDT Appointment [facility] Echocardiography [address] [place] [address] Annita Holden, IRON [address] [place] [address] [email or web address] 07/17/2025 11:00 AM EDT Office Visit [facility] Cardiac Transplant [address] [place] [address] Unknown, Unknown, documented as of this encounter Visit Diagnoses Diagnosis Heart replaced by transplant- Primary Heart failure, unspecified documented in this encounter [...] was found to be COVID+, transferred to [facility] for further management. Assessment: Recent swabs were [...] 11:24 AM EDT PHQ-2 Depression Total Score: 11/21/19 15 11:24 AM EDT documented as of this encounter Care Teams Pump Machine Operator Relationship Specialty Start Date End Date Dung Chen MD [address] [place] [address] PCP - General 08/21/14 Tia Granda NP [email or web address] Historical LMR Provider 08/30/14 02/21/21 Annita Watson MD [address] [place] [address] Neurosurgery 09/17/19 Carlos Alberto Stanford MD [address] [place] [address] Echo Tech Internal Medicine 07/10/23 07/18/24 Han Hopkins MD, MARIA L [address] [place] [address] [email or web address] Interventional Radiology 07/10/23 Dung Chen MD [address] [place] [address] Internal Medicine 07/10/23 Norma Sanchez PA [address] [place] [address] Echo Tech Physician Intake Rn 07/18/24 documented as of this encounter Additional Source Comments The information contained in this document represents components of the legal health record. It is not the complete legal health record.[facility]
--- OUTSIDE RECORDS SUMMARY | 2025-03-05 21:12 | XMS_ITS | Clinical Summary ---
Author Organization [facility] Address [address] [place] [address] Care Team Providers Care School Crossing Guard Supervisor Name Role Phone Dung Chen MD Primary Care Provider [phone] Allergies No known active allergies Medications Medication [...] 03/27/2022 03/27/2012, 08/31/2004 COVID-19 Vaccine ( season) 2024 07/18/2021, 01/15/2021, 06/13/2020, Additional history exists Influenza Vaccine (#1) 2024 , 01/07/2021, 01/13/2020, Additional history exists Hepatitis B Vaccines Aged Out No long er eligible based on patient's age to complete this topic RSV Ped < 20 months Aged Out No longe r eligible based on patient's age to complete this topic Care Teams School Crossing Guard Supervisor Relationship Specialty Start Date End Date Dung Chen MD [address] [place] [address] PCP - General Internal Medicine 04/11/19
--- OUTSIDE RECORDS SUMMARY | 2025-03-05 21:12 | XMS_ITS | Encounter Summary ---
Author Organization [facility] Address [address] [place] [address] Phone Care Team Providers Care Battery Starter Name Role Phone Dung Chen MD Primary Care Provider [phone] Encounter Details Date Type Department Care Team (Late st Contact Info) Description 01/23/2024 Documentation Only [facility] [address] [place] [address] [place], [place] [address] [place] [id number] Social History Tobacco Use Types Packs/Day Years Used Date Smoking Tobacco: Never Assessed Sex and Gender Information Value Date Recorded Sex Assigned at Not on file Legal Sex Male 5:03 PM EST Gender Identity Not on file Sexual Orientation Not on file documented as of this encounter Plan of Treatment Upcoming Encounters Date Type Department Care Team (Late st Contact Info) Description 04/30/2025 2:00 PM EST Office [facility] [address] [place] [address] Julian Paris MD [address] [place] [address] [place] [address] documented as of this encounter Visit Diagnoses Not on filedocumented in this encounter Care Teams Battery Starter Relationship Specialty Start Date End Date Dung Chen MD [address] [place] [address] PCP - General Internal Medicine 01/23/24 documented as of this encounter
--- OUTSIDE RECORDS SUMMARY | 2025-03-05 21:12 | XMS_ITS | Encounter Summary ---
Author Organization [facility] Address [address] [address] Phone Care Team Providers Care Hydroelectric Production Manager Name Role Phone Dung Chen MD Primary Care Provider +- [phone] Annita Watson MD Unavailable [phone] Carlos Alberto Stanford MD Unavailable [phone] Han Hopkins MD, MARIA L Unavailable Dung Chen MD Unavailable [phone] Norma Sanchez Unavailable [phone] Encounter Details Date Type Department Care Team (Late st Contact Info) Description 06/23/2021 Procedure Pass [facility] [address] [place] [address] Social History Tobacco Use Types Packs/Day Years Used Date Smoking Tobacco: Former Cigarettes Q uit: 08/30/1997 Smokeless Tobacco: Never Alcohol Use Standard Drinks/Week Comments No 0 (1 standard drink = 0.6 oz pur e alcohol) Sex and Gender Information Value Date Recorded Sex Assigned at Not on file Legal Sex Male 6:47 PM EST Gender Identity Not on file Sexual Orientation Not on file documented as of this encounter Functional Status * Calculated C-SSRS Risk Score (Lifetime/Recent) Answer Date of Assessment Author No Risk Indicated 06/23/2021 12:00 PM EST Félix Menendez, RN * Turner Suicide Severity Rating Scale (Screener/Recent Self-Report) Question Answer Date of Assessment Author 1. Wish to be (Past 1 Month) No 022 12:00 PM Félix Woods, RN 2. Non-Specific Active Suici luma Thoughts (Past 1 Month) No 06/23/2021 12:00 PM Félix Woods, RN 6. Suicidal Behavior (Lifetime) No 12:00 PM Félix Woods, RN documented as of this encounter Plan of Treatment Upcoming Encounters Date Type Department Care Team (Late st Contact Info) Description 01/21/2025 Procedure Pass [facility] Echocardiography [address] [place] [address] 07/17/2025 10:00 AM EDT Appointment [facility] Echocardiography [address] [place] [address] Annita Holden, STEAM PAN SPONGER [address] [place] [address] [email or web address] 07/17/2025 11:00 AM EDT Office Visit [facility] Cardiac Transplant [address] [place], [place] [id number] Unknown, Unknown, documented as of this encounter Visit Diagnoses Not on filedocumented in this encounter Additional Health Concerns Infection Onset Date Last Indicated Resolved Time CoV-Risk 06/23/2021 06/23/2021 06/23/2021 4:20 PM EST [...] was found to be COVID+, transferred to [facility] for further management. Assessment: Recent swabs were [...] 11:24 AM EDT PHQ-2 Depression Total Score: 0 05/27/19 22 11:10 AM EST documented as of this encounter Care Teams Hydroelectric Production Manager Relationship Specialty Start Date End Date Dung Chen MD [address] [place] [address] PCP - General 08/21/14 Annita Watson MD [address] [place] [address] Neurosurgery 09/17/19 Carlos Alberto Stanford MD [address] [place] [address] Stripper Printed Circuit Boards Internal Medicine 07/10/23 07/18/24 Han Hopkins MD, MARIA L [address] [place] [address] Interventional Radiology 07/10/23 Dung Chen MD [address] [place] [address] Internal Medicine 07/10/23 Norma Sanchez PA [address] [place] [address] Stripper Printed Circuit Boards Physician Shade Hanger 07/18/24 documented as of this encounter Additional Source Comments The information contained in this document represents components of the legal health record. It is not the complete legal health record.[facility]
--- OUTSIDE RECORDS SUMMARY | 2025-03-05 21:12 | XMS_ITS ---
Author Name [facility] Organization Unknown Care Team Organization Name Specialty Phone Email Start Date End Da te [facility] VERENA COSME Primary Care 03/17/2022 12/04/2023 [facility] Termed, PROVIDER Primary Care 02/22/202211/15
--- OUTSIDE RECORDS SUMMARY | 2025-03-05 21:12 | XMS_ITS | Encounter Summary ---
Author Organization [facility] Address [address] [place] [address] Phone Care Team Providers Care Materials Assistant Name Role Phone Dung Chen MD Primary Care Provider +- [phone] Tia Granda NP Unavailable [email or web address] Annita Watson MD Unavailable [phone] Carlos Alberto Stanford MD Unavailable [phone] Han Hopkins MD, MARIA L Unavailable Dung Chen MD Unavailable [phone] Norma Sanchez Unavailable [phone] Encounter Details Date Type Department Care Team (Late st Contact Info) Description 04/26/2016 Procedure Pass [facility] Cardiac Staff Nurse Anesthetist [address] [place] [address] Social History Tobacco Use Types Packs/Day Years [...] st Contact Info) Description 01/21/2025 Procedure Pass [facility] Echocardiography [address] [place] [address] 07/17/2025 10:00 AM EDT Appointment [facility] Echocardiography [address] [place] [address] Annita Holden, OVERCOILER [address] [place] [address] [email or web address] 07/17/2025 11:00 AM EDT Office Visit [facility] Cardiac Transplant [address] [place] [address] Unknown, MD Jeaneth documented as of this encounter Visit Diagnoses [...] was found to be COVID+, transferred to [facility] for further management. Assessment: Recent swabs [...] AM EDT PHQ-2 Depression Total Score: 0 04/25/19 17 1:13 PM EST documented as of this encounter Care Teams Materials Assistant Relationship Specialty Start Date End Date Dung Chen MD [address] [place] [address] PCP - General 08/21/14 Tia Granda NP [email or web address] Historical LMR Provider 08/30/14 02/21/21 Annita Watson MD [address] [place] [address] Neurosurgery 09/17/19 Carlos Alberto Stanford MD [address] [place] [address] Precise Winder Internal Medicine 07/10/23 07/18/24 Han Hopkins MD, MARIA L [address] [place] [address] Interventional Radiology 07/10/23 Dung Chen MD [address] [place] [address] Internal Medicine 07/10/23 Norma Sanchez PA [address] [place] [address] Precise Winder Physician Comprehensive Ophthalmologist 07/18/24 documented as of this encounter Additional Source Comments The information contained in this document represents components of the legal health record. It is not the complete legal health record.[facility]
--- OUTSIDE RECORDS SUMMARY | 2025-03-05 21:12 | XMS_ITS | Encounter Summary ---
Author Organization [facility] Address [address] [place] [address] Phone Care Team Providers Care Kitchen Supervisor Name Role Phone Dung Chen MD Primary Care Provider +- [phone] Tia Granda NP Unavailable [email or web address] Annita Watson MD Unavailable [phone] Carlos Alberto Stanford MD Unavailable [phone] Han Hopkins MD, MARIA L Unavailable Dung Chen MD Unavailable [phone] Norma Sanchez Unavailable [phone] Encounter Details Date Type Department Care Team (Latest Contact Info) Description 06/05/2020 Transcribe Orders [facility] [address] [place], [place] [id number] Sharon Hodges [place] [email or web address] Heart replaced by transplant (Primary Dx) Social [...] st Contact Info) Description 01/21/2025 Procedure Pass [facility] Echocardiography [address] [place] [address] 07/17/2025 10:00 AM EDT Appointment [facility] Echocardiography [address] [place] [address] Annita Holden, COAL DRIER OPERATOR [address] [place] [address] [email or web address] 07/17/2025 11:00 AM EDT Office Visit [facility] Cardiac Transplant [address] [place] [address] Unknown, Unknown, documented as of this encounter [...] was found to be COVID+, transferred to [facility] for further management. Assessment: Recent [...] AM EDT PHQ-2 Depression Total Score: 0 11/28/19 20 11:00 AM EDT documented as of this encounter Care Teams Kitchen Supervisor Relationship Specialty Start Date End Date Dung Chen MD [address] [place] [address] PCP - General 08/21/14 Tia Granda NP [email or web address] Historical LMR Provider 08/30/14 02/21/21 Annita Watson MD [address] [place] [address] Neurosurgery 09/17/19 Carlos Alberto Stanford MD [address] [place] [address] Trades Helper Internal Medicine 07/10/23 07/18/24 Han Hopkins MD, MARIA L [address] [place] [address] [email or web address] Interventional Radiology 07/10/23 Dung Chen MD [address] [place] [address] Internal Medicine 07/10/23 Norma Sanchez PA [address] [place] [address] Trades Helper Physician Pharmacy Buyer 07/18/24 documented as of this encounter Additional Source Comments The information contained in this document represents components of the legal health record. It is not the complete legal health record.[facility]
--- OUTSIDE RECORDS SUMMARY | 2025-03-05 21:12 | XMS_ITS | Encounter Summary ---
Author Organization [facility] Address [address] [place] [address] Phone Care Team Providers Care Event Crew Technician Name Role Phone Dung Chen MD Primary Care Provider [phone] Annita Watson MD Unavailable [phone] Carlos Alberto Stanford MD Unavailable [phone] Han Hopkins MD, MARIA L Unavailable Dnug Chen MD Unavailable [phone] Norma Sanchez Unavailable [phone] Encounter Details Date Type Department Care Team (Late st Contact Info) Description 06/24/2021 Procedure Pass [facility] [address] [place] [address] Social History Tobacco Use Types Packs/Day Years [...] st Contact Info) Description 01/21/2025 Procedure Pass [facility] Echocardiography [address] [place] [address] 07/17/2025 10:00 AM EDT Appointment [facility] Echocardiography [address] [place] [address] Annita Holden, CNC MILL PROGRAMMER [address] [place] [address] [email or web address] 07/17/2025 11:00 AM EDT Office Visit [facility] Cardiac Transplant [address] [place] [address] Unknown, Unknown, documented as of this encounter Visit Diagnoses Not on filedocumented in this encounter Additional Health Concerns Infection Onset Date Last Indicated Resolved Time COVID-19 Comment:Case Reviewed: 70 yo M with [...] was found to be COVID+, transferred to [facility] for further management. Assessment: Recent swabs [...] documented as of this encounter Care Teams Event Crew Technician Relationship Specialty Start Date End Date Dung Chen MD [address] [place] [address] PCP - General 08/21/14 Annita Watson MD [address] [place] [address] Neurosurgery 09/17/19 Carlos Alberto Stanford MD [address] [place] [address] Director Long Term Care Internal Medicine 07/10/23 07/18/24 Han Hopkins MD, MARIA L [address] [place] [address] [email or web address] Interventional Radiology 07/10/23 Dung Chen MD [address] [place] [address] Internal Medicine 07/10/23 Norma Sanchez PA [address] [place] [address] Director Long Term Care Physician Equalizing Saw Operator 07/18/24 documented as of this encounter Additional Source Comments The information contained in this document represents components of the legal health record. It is not the complete legal health record.[facility]
--- OUTSIDE RECORDS SUMMARY | 2025-03-05 21:12 | XMS_ITS | Encounter Summary ---
Author Organization [facility] Address [address] [place] [address] Phone Care Team Providers Care Pipe Production Worker Name Role Phone Dung Chen MD Primary Care Provider +- [phone] Annita Watson MD Unavailable [phone] Carlos Alberto Stanford MD Unavailable [phone] Han Hopkins MD, MARIA L Unavailable Dung Chen MD Unavailable [phone] Norma Sanchez Unavailable [phone] Encounter Details Date Type Department Care Team (Late st Contact Info) Description 05/12/2023 Procedure Pass [facility] Echocardiography [address] [place] [address] Social History Tobacco Use Types Packs/Day Years Used Date Smoking Tobacco: Former Cigarettes Q uit: 08/30/1997 Smokeless Tobacco: Never Alcohol Use Standard Drinks/Week Comments No 0 (1 standard drink = 0.6 oz pur e alcohol) Education Answer Date Recorded Are you interested in more education? Not on judy e 08/12/2022 Are you concerned about learning? Not on file 08/12/2022 No 08/12/2022 No 08/12/2022 Digital Access Answer Date Recorded No 09/07/2022 No 09/07/2022 Reliable internet access at home? Not on file 09/07/2022 Device with a working camera? Not on file Sex and Gender Information Value Date Recorded Sex Assigned at Not on file Legal Sex Male 6:47 PM EST Gender Identity Not on file Sexual Orientation Not on file documented as of this encounter Plan of Treatment Upcoming Encounters Date Type Department Care Team (Late st Contact Info) Description 01/21/2025 Procedure Pass [facility] Echocardiography [address] [place] [address] 07/17/2025 10:00 AM EDT Appointment [facility] Echocardiography [address] [place] [address] Annita Holden, PREPRESS MANAGER [address] [place] [address] [email or web address] 07/17/2025 11:00 AM EDT Office Visit [facility] Cardiac Transplant [address] [place] [address] Unknown, Jeaneth, documented as of this encounter Visit Diagnoses Not on filedocumented in this encounter Additional Health Concerns Assessment Noted Time PHQ-9 Depression Total Score: 1 11/21/19 15 11:24 AM EDT PHQ-2 Depression Total Score: 0 11/30/19 22 9:36 AM EDT documented as of this encounter Care Teams Pipe Production Worker Relationship Specialty Start Date End Date Dung Chen MD [address] [place] [address] PCP - General 08/21/14 Annita Watson MD [address] [place] [address] Neurosurgery 09/17/19 Carlos Alberto Stanford MD [address] [place] [address] Embedded Software Test Engineer Internal Medicine 07/10/23 07/18/24 Han Hopkins MD, MARIA L [address] [place] [address] Interventional Radiology 07/10/23 Dung Chen MD [address] [place] [address] Internal Medicine 07/10/23 Norma Sanchez PA [facility] [address] [address] Embedded Software Test Engineer Physician Manager Cargo 07/18/24 documented as of this encounter Additional Source Comments The information contained in this document represents components of the legal health record. It is not the complete legal health record.[facility]
--- OUTSIDE RECORDS SUMMARY | 2025-03-05 21:12 | XMS_ITS | Encounter Summary ---
Author Organization [facility] Address [address] [address] Phone Care Team Providers Care Mushroom Sorter Grader Name Role Phone Dung Chen MD Primary Care Provider +- [phone] Annita Watson MD Unavailable [phone] Carlos Alberto Stanford MD Unavailable [phone] Han Hopkins MD, MARIA L Unavailable [phone] Dung Chen MD Unavailable [phone] Norma Sanchez Unavailable [phone] Encounter Details Date Type Department Care Team (Late st Contact Info) Description 06/23/2021 Procedure Pass [facility] [address] [place] [address] Social History Tobacco Use Types Packs/Day Years [...] 12:00 PM EST Félix Menendez, RN * Iron Suicide Severity Rating Scale (Screener/Recent Self-Report) Question [...] st Contact Info) Description 01/21/2025 Procedure Pass [facility] Echocardiography [address] [place] [address] 07/17/2025 10:00 AM EDT Appointment [facility] Echocardiography [address] [place] [address] Annita Holden, PRODUCT SAFETY LEAD [address] [place] [address] [email or web address] 07/17/2025 11:00 AM EDT Office Visit [facility] Cardiac Transplant [address] [place], [place] [address] Unknown, Unknown, documented as of this encounter [...] was found to be COVID+, transferred to [facility] for further management. Assessment: Recent swabs [...] documented as of this encounter Care Teams Mushroom Sorter Grader Relationship Specialty Start Date End Date Dung Chen MD [address] [place] [address] PCP - General 08/21/14 Annita Watson MD [address] [place] [address] Neurosurgery 09/17/19 Carlos Alberto Stanford MD [address] [place] [address] Insole Doubler Internal Medicine 07/10/23 07/18/24 Han Hopkins MD, MARIA L [address] [place] [address] Interventional Radiology 07/10/23 Dung Chen MD [address] [place] [address] Internal Medicine 07/10/23 Norma Sanchez PA [address] [place] [address] Insole Doubler Physician Reference Librarian 07/18/24 documented as of this encounter Additional Source Comments The information contained in this document represents components of the legal health record. It is not the complete legal health record.[facility]
--- OUTSIDE RECORDS SUMMARY | 2025-03-05 21:12 | XMS_ITS | Encounter Summary ---
Author Organization [facility] Address [address] [place] [address] Phone Care Team Providers Care Upholsterer Inside Name Role Phone Dung Chen MD Primary Care Provider +- [phone] Annita Watson MD Unavailable [phone] Carlos Alberto Stanford MD Unavailable [phone] Han Hopkins MD, MARIA L Unavailable Dung Chen MD Unavailable [phone] Norma Sanchez Unavailable [phone] Encounter Details Date Type Department Care Team (Late st Contact Info) Description 01/24/2024 Procedure Pass [facility] Echocardiography [address] [place] [address] Social History Tobacco Use Types Packs/Day Years [...] Procedure Pass [facility] Echocardiography [address] [place] [address] 07/17/2025 10:00 AM EDT Appointment [facility] Echocardiography [address] [place] [address] Annita Holden, OFFICE COORDINATOR RECEPTIONIST [address] [place] [address] [email or web address] 07/17/2025 11:00 AM EDT Office Visit [facility] Cardiac Transplant [address] [place] [address] Unknown, Jeaneth, documented as of this encounter Visit Diagnoses Not on filedocumented in this encounter Additional Health Concerns Assessment Noted Time PHQ-9 Depression Total Score: 1 11/21/19 15 11:24 AM EDT PHQ-2 Depression Total Score: 0 11/30/19 22 9:36 AM EDT documented as of this encounter Care Teams Upholsterer Inside Relationship Specialty Start Date End Date Dung Chen MD [address] [place] [address] PCP - General 08/21/14 Annita Watson MD [address] [place] [address] Neurosurgery 09/17/19 Carlos Alberto Stanford MD [address] [place] [address] Floor Covering Layer Internal Medicine 07/10/23 07/18/24 Han Hopkins MD, MARIA L [address] [place] [address] Interventional Radiology 07/10/23 Dung Chen MD [address] [place] [address] Internal Medicine 07/10/23 Norma Sanchez PA [facility] [address] [address] Floor Covering Layer Physician Intravenous Therapy Nurse 07/18/24 documented as of this encounter Additional Source Comments The information contained in this document represents components of the legal health record. It is not the complete legal health record.[facility]
--- OUTSIDE RECORDS SUMMARY | 2025-03-05 21:12 | XMS_ITS | Encounter Summary ---
Author Organization [facility] Address [address] [place] [address] Phone Care Team Providers Care Holter Scanning Technician Name Role Phone Dung Chen MD Primary Care Provider +- [phone] Tia Granda NP Unavailable [email or web address] Annita Watson MD Unavailable [phone] Carlos Alberto Stanford MD Unavailable [phone] Han Hopkins MD, MARIA L Unavailable Dung Chen MD Unavailable [phone] Norma Sanchez Unavailable [phone] Encounter Details Date Type Department Care Team (Latest Contact Info) Description 02/19/2015 Transcribe Orders [facility] Cardiac Transplant [address] [place] [address] Albina Glass [address] [place], [place] [id number] [email or web address] Congestive heart failure, unspecified (Primary Dx); Heart replaced by transplant Social History Tobacco Use Types Packs/Day Years [...] st Contact Info) Description 01/21/2025 Procedure Pass [facility] Echocardiography [address] [place] [address] 07/17/2025 10:00 AM EDT Appointment [facility] Echocardiography [address] [place] [address] Annita Holden, HEDIS COORDINATOR [address] [place] [address] [email or web address] 07/17/2025 11:00 AM EDT Office Visit [facility] Cardiac Transplant [address] [place] [address] Unknown, Unknown, documented as of this encounter Visit Diagnoses Diagnosis Congestive heart failure, unspecified- Primary Heart replaced by transplant documented in this encounter Additional Health Concerns [...] was found to be COVID+, transferred to [facility] for further management. Assessment: Recent [...] documented as of this encounter Care Teams Holter Scanning Technician Relationship Specialty Start Date End Date Dung Chen MD [address] [place] [address] PCP - General 08/21/14 Tia Granda NP [email or web address] Historical LMR Provider 08/30/14 02/21/21 Annita Watson MD 175 [place] [address] Neurosurgery 09/17/19 Carlos Alberto Stanford MD 175 [place] [address] Maintenance Manager Internal Medicine 07/10/23 07/18/24 Han Hopkins MD, MARIA L [address] [place] [address] [email or web address] Interventional Radiology 07/10/23 Dung Chen MD [address] [place] [address] Internal Medicine 07/10/23 Norma Sanchez PA [address] [place] [address] Maintenance Manager Physician Quality Assurance Lead 07/18/24 documented as of this encounter Additional Source Comments The information contained in this document represents components of the legal health record. It is not the complete legal health record.[facility]
--- OUTSIDE RECORDS SUMMARY | 2025-03-05 21:12 | XMS_ITS | Encounter Summary ---
Author Organization [facility] Address [address] [place] [address] Phone Care Team Providers Care Electronics Technician Name Role Phone Dung Chen MD Primary Care Provider +- [phone] Annita Watson MD Unavailable [phone] Carlos Alberto Stanford MD Unavailable [phone] Han Hopkins MD, MARIA L Unavailable Dung Chen MD Unavailable [phone] Norma Sanchez Unavailable [phone] Encounter Details Date Type Department Care Team (Late st Contact Info) Description 11/29/2022 Procedure Pass [facility] Echocardiography [address] [place] [address] Social History Tobacco Use Types Packs/Day Years [...] st Contact Info) Description 01/21/2025 Procedure Pass [facility] Echocardiography [address] [place] [address] 07/17/2025 10:00 AM EDT Appointment [facility] Echocardiography [address] [place] [address] Annita Holden, LAUNCH MANAGER [address] [place] [address] [email or web address] 07/17/2025 11:00 AM EDT Office Visit [facility] Cardiac Transplant [address] [place] [address] Unknown, Jeaneth, documented as of this encounter Visit Diagnoses Not on filedocumented in this encounter Additional Health Concerns Assessment Noted Time PHQ-9 Depression Total Score: 1 11/21/19 15 11:24 AM EDT PHQ-2 Depression Total Score: 0 11/30/19 22 9:36 AM EDT documented as of this encounter Care Teams Electronics Technician Relationship Specialty Start Date End Date Dung Chen MD [address] [place] [address] PCP - General 08/21/14 Annita Watson MD [address] [place] [address] Neurosurgery 09/17/19 Carlos Alberto Stanford MD [address] [place] [address] Matrix Plater Internal Medicine 07/10/23 07/18/24 Han Hopkins MD, MARIA L [address] [place] [address] Interventional Radiology 07/10/23 Dung Chen MD [address] [place] [address] Internal Medicine 07/10/[address] [facility] [address] [address] Matrix Plater Physician Crusher Feeder 07/18/24 documented as of this encounter Additional Source Comments The information contained in this document represents components of the legal health record. It is not the complete legal health record.[facility]
--- OUTSIDE RECORDS SUMMARY | 2025-03-05 21:12 | XMS_ITS | Clinical Summary ---
Author Organization [facility], Address [address] [place] [address] [place] [address] Phone Care Team Providers Care Lamp Cleaner Name Role Phone Dung Chen MD Primary Care Provider + [phone] Allergies Active Allergy Reactions Criticality Noted Date Comments Lisinopril Other (see comments) Low 08/22/2012 Cough Medications valsartan (DIOVAN) 320 MG tablet Take 1 tablet by mouth 4 Active traZODone (DESYREL) 100 MG tablet Take 200 mg by mouth in the morning. 2 Active tacrolimus (PROGRAF) 1 MG capsule Take 3 mg by mouth in the morning and 3 mg in the evening. 9 Active rosuvastatin (CRESTOR) 20 MG tablet Take 20 mg by mouth 1 (one) time each day in the evening 4 Active pantoprazole (PROTONIX) 40 MG EC tablet Take 40 mg by mouth in the morning. 2 Active oxyCODONE (OXY-IR) 5 MG immediate release capsule Take 5 mg by mouth 3 Active mycophenolate (MYFORTIC) 360 MG EC tablet Take 360 mg by mouth in the morning and 360 mg in the evening. 7 Active magnesium oxide (MAG-OX) 400 MG tablet Take 400 mg by mouth in the morning and 400 mg in the evening. 7 Active Insulin Pen Needle (BD Pen Needle Adriana U/F) 32G X 4 MM misc Use 5 needles daily 7 Active insulin lispro (HumaLOG) 200 UNIT/ML solution pen-injector injection Inject 20 Units under the skin in the morning and 20 Units in the evening. 2 Active insulin lispro (HumaLOG) 100 UNIT/ML injection See Instructions, INSERT CARTRIDGE INTO INPEN DEVICE AND INJECT SUBCUTANEOUSLY 16 UNITS 3 TIMES DAILY WITH MEALS - MAX DAILY DOSE: 48 UNITS, # 45 mL, 3 Refills, Maintenance, 06/11/24 4:12:00 PM EST, [facility], 173, cm, 05/14/24 14:25:00 EST, Height, 92.3, kg, 05/13/24 15:25:00 EST, Dry Weight 1 Active insulin degludec (TRESIBA FLEX TOUCH) 200 UNIT/ML injection Inject 5 Units under the skin 1 Active glucose blood test strip USE TO TEST BLOOD SUGAR FOUR TIMES A DAY. 7 Active gabapentin (NEURONTIN) 300 MG capsule Take 300 mg by mouth in the morning and 300 mg at noon and 300 mg in the evening. 1 Active fluticasone (FLONASE) 50 MCG/ACT nasal spray See Instructions, USE 1 SPRAY IN BOTH NOSTRILS DAILY, # 32 Gm, 0 Refills, Maintenance, 05/02/24 11:37:00 AM EST, [facility], 90, USE 1 SPRAY IN BOTH NOSTRILS DAILY, 173, cm, 02/13/24 14:23:00 EDT, Height, 102.6, kg, 03/03/23 15:33:00 EST, Dry Weight 0 Active DULoxetine (CYMBALTA) [address] capsule Take 30 mg by mouth 1 (one) time each day Active Dulaglutide (Trulicity) 4.5 MG/0.5ML solution auto-injector Inject 0.5 mL under the skin 4 Active clopidogrel (PLAVIX) 75 MG tablet Take 75 mg by mouth in the morning. 3 Active carvedilol (COREG) 3.125 MG tablet Take 1 tablet by mouth 5 Active benzonatate (TESSALON) 100 MG capsule TAKE 1 CAPSULE BY MOUTH 3 TIMES A DAY FOR 10 DAYS 3 Active aspirin (ST JAZMINE) 81 MG EC tablet Take 81 mg by mouth in the morning. 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 Overview (06/21/2024): 07/06 likely Coronary arteriosclerosis 06/28/2021 Generalized ischemic myocardial dysfunction 06/15 Hypokalemia 06/28/2021 Hypomagnesemia 06/28/2021 Heart transplant status 06/28/2021 Candidiasis of the esophagus 06/28/2021 Insomnia 07/17/2019 Osteopenia 08/08/2016 Overview (06/21/2024): Minimal, on DXA 08/01 Type 2 diabetes mellitus wit h other diabetic kidney complication 05/04/2016 Overview (06/21/2024): [facility] Depressive disorder 12/17/2015 Overview (06/21/2024): Was following with [facility]; as of 05/06, care to be transferred to PCP Hyperthyroidism 12/10/2015 Low back pain 06/15/2015 Overview (06/21/2024): NSurg at [facility]; then [facility] Diabetes mellitus 02/21/2012 Overview (06/21/2024): Diabetes mellitus; *See attached note in LMR Obstructive sleep apnea syndrome 09/08/2011 Overview (06/21/2024): Can't tolerate CPAP Chronic kidney disease stage 3 05/17/2011 Neuropathy due to diabetes mellitus 10/11/2010 Overview (06/21/2024): [facility] neurology Hypercholesterolemia 06/21/2005 Overview (06/21/2024): Hypercholesterolemia Psychosexual dysfunction 06/21/2005 Immunizations Immunization Administration Dates Next Due Influenza (IM) Preservative Free 019,02/13/2018,03/02/2017,03/01,02/03/2015 Influenza Split High Dose Pr eservative Free IM 02/06/2019 Influenza Vaccine, Quadrival ent, Adjuvanted 01/07/2021 Influenza Whole 01/24/2006,02/17/2005 Influenza, Recombinant, Quad rivalent, Pf 01/13/2020 Influenza, Unspecified 02/04/2013,01/24/2012 Pfizer SARS-COV-2 01/15/2021,06/13/2020,05/17/19 21 Pneumococcal Polysaccharide 01/24/2012, 5,03/02/2004 Td, Unspecified 08/31/2004 Tdap 12/08/2022,03/27/2012 Family History Medical History Relation Comments Cancer Brother Cancer Father Cancer Mother Cataracts Mother Macular degeneration Mother Relation Status Comments Brother Father Mother Social History Tobacco Use Types Packs/Day Years Used Date Smoking Tobacco: Former Cigarettes Smokeless Tobacco: Never Tobacco Cessation:Counseling Given: Not Answered Sex and Gender Information Value Date Recorded Sex Assigned at Not on file Legal Sex Male 5:03 PM EST Gender Identity Not on file Sexual Orientation Not on file Plan of Treatment Upcoming Encounters Date Type Department Care Team (Late st Contact Info) Description 04/30/2025 2:00 PM EST [facility] [address] [place] [address] Julian Paris MD [address] [place] [address] [place] [address] Health Maintenance Due Date Last Done Comments Colorectal Cancer Screening: Annual FOBT 09/30/2000 Colorectal Cancer Screening: Colonoscopy 09/30/2000 Colorectal Cancer Screening: Sigmoidoscopy 09/30/2000 Pneumococcal Vaccine: 50+ Years (3 of 3 - PCV) 04/24/2017 04/24/2016, 02/03/2015, 01/24/2012, Additional history exists Diabetes: Hemoglobin A1C 06/21/2024 Diabetes: Ophthalmology Exam 06/21/2024 06/26/2013, 09/20/2011, 07/22/2010, Additional history exists Diabetes: Pedal Pulse Checked 06/21/2024 Diabetes: Sensory Foot Exam 06/21/2024 Diabetes: Visual Foot Exam 06/21/2024 Influenza Vaccine (#1) 2024 , 01/13/2020, 02/06/2019, Additional history exists Pneumococcal Vaccine: Peds (0 to 5 Years) and At-Risk Patients (6 to 49 Years) Discontinued 04/24/2016, 02/03/2015, 01/24/2012, Additional history exists Hepatitis B Vaccine Aged Out No longe r eligible based on patient's age to complete this topic Insurance Medicare [facility] Medicare [facility] Medicare [facility] Care Teams Lamp Cleaner Relationship Specialty Start Date End Date Dung Chen MD [address] [place] [address] PCP - General Internal Medicine 01/23/24
--- OUTSIDE RECORDS SUMMARY | 2025-03-05 21:12 | XMS_ITS | Encounter Summary ---
Author Organization [facility] Address [address] [place] [address] Phone Care Team Providers Care Semiconductor Manufacturing Technician Name Role Phone Dung Chen MD Primary Care Provider +- [phone] Tia Granda NP Unavailable [email or web address] Annita Watson MD Unavailable [phone] Carlos Alberto Stanford MD Unavailable [phone] Han Hopkins MD, MARIA L Unavailable Dung Chen MD Unavailable [phone] Norma Sanchez Unavailable [phone] Encounter Details Date Type Department Care Team (Late Contact Info) Description 01/08/2021 Procedure Pass [facility] Echocardiography [address] [place] [address] Social History Tobacco Use Types Packs/Day Years [...] Encounters Date Type Department Care Team (Late Contact Info) Description 01/21/2025 Procedure Pass [facility] Echocardiography [address] [place] [address] 07/17/2025 10:00 AM EDT Appointment [facility] Echocardiography [address] [place] [address] Annita Holden, SEMICONDUCTOR LAB TECHNICIAN [address] [place] [address] [email or web address] 07/17/2025 11:00 AM EDT Office Visit [facility] Cardiac Transplant [address] [place] [address] Unknown, Unknown, documented as of this encounter [...] was found to be COVID+, transferred to [facility] for further management. Assessment: Recent swabs [...] EDT PHQ-2 Depression Total Score: 0 05/27/19 11:10 AM EST documented as of this encounter Care Teams Semiconductor Manufacturing Technician Relationship Specialty Start Date End Date Dung Chen MD [address] [place] [address] PCP - General 08/21/14 Tia Granda NP [email or web address] Historical LMR Provider 08/30/14 02/21/21 Annita Watson MD [address] [place] [address] Neurosurgery 09/17/19 Carlos Alberto Stanford MD [address] [place] [address] Blasting Clay Miner Internal Medicine 07/10/23 07/18/24 Han Hopkins MD, MARIA L [address] [place] [address] [email or web address] Interventional Radiology 07/10/23 Dung Chen MD [address] [place] [address] Internal Medicine 07/10/23 Norma Sanchez PA [address] [place] [address] Blasting Clay Miner Physician Porter Baggage 07/18/24 documented as of this encounter Additional Source Comments The information contained in this document represents components of the legal health record. It is not the complete legal health record.[facility]
--- OUTSIDE RECORDS SUMMARY | 2025-03-05 21:12 | XMS_ITS | Encounter Summary ---
Author Organization [facility] Address [address] [place] [address] Phone Care Team Providers Care Lap Checker Name Role Phone Dung Chen MD Primary Care Provider +- [phone] Tia Granda NP Unavailable [email or web address] Annita Watson MD Unavailable [phone] Carlos Alberto Stanford MD Unavailable [phone] Han Hopkins MD, MARIA L Unavailable Dung Chen MD Unavailable [phone] Norma Sanchez Unavailable [phone] Encounter Details Date Type Department Care Team (Latest Contact Info) Description 12/09/2015 Transcribe Orders [facility] Cardiac Transplant [address] [place] [address] Albina Glass [address] [place] [address] [email or web address] Heart replaced by transplant (Primary Dx) Social [...] st Contact Info) Description 01/21/2025 Procedure Pass [facility] Echocardiography [address] [place] [address] 07/17/2025 10:00 AM EDT Appointment [facility] Echocardiography [address] [place] [address] Annita Holden, SHIRT BANDER [address] [place] [address] [email or web address] 07/17/2025 11:00 AM EDT Office Visit [facility] Cardiac Transplant [address] [place] [address] Unknown, Unknown, Scheduled Orders Name Type Priority Associated Diagnoses Orde r Schedule ECG 12 lead ECG Routine Heart replaced by transplant Ordered: 12/09/2015 documented as of this encounter Visit Diagnoses [...] was found to be COVID+, transferred to [facility] for further management. Assessment: Recent [...] Time PHQ-9 Depression Total Score: 1 11/21/19 11:24 AM EDT PHQ-2 Depression Total Score: 1 11/21/19 11:24 AM EDT documented as of this encounter Care Teams Lap Checker Relationship Specialty Start Date End Date Dung Chen MD [address] [place] [address] PCP - General 08/21/14 Tia Granda NP [email or web address] Historical LMR Provider 08/30/14 02/21/21 Annita Watson MD [address] [place] [address] Neurosurgery 09/17/19 Carlos Alberto Stanford MD [address] [place] [address] Principal Associate Internal Medicine 07/10/23 07/18/24 Han Hopkins MD, MARIA L [address] [place] [address] [email or web address] Interventional Radiology 07/10/23 Dung Chen MD [address] [place] [address] Internal Medicine 07/10/23 Norma Sanchez PA [address] [place] [address] Principal Associate Physician Baker Biscuit 07/18/24 documented as of this encounter Additional Source Comments The information contained in this document represents components of the legal health record. It is not the complete legal health record.[facility]
--- OUTSIDE RECORDS SUMMARY | 2025-03-05 21:12 | XMS_ITS | Encounter Summary ---
Author Organization [facility] Address [address] [place] [address] Phone Care Team Providers Care Beehive Kiln Charcoal Burner Name Role Phone Dung Chen MD Primary Care Provider [phone] Annita Watson MD Unavailable +[phone] Carlos Alberto Stanford MD Unavailable [phone] Han Hopkins MD, MARIA L Unavailable Dung Chen MD Unavailable [phone] Norma Sanchez Unavailable [phone] Reason for Visit * Reason Comments Medication Refill Encounter Details Date Type Department Care Team (Late st Contact Info) Description 04/23/2021 Refill [facility] Cardiac Transplant [address] [place] [address] Tia Granda NP [email or web address] Medication Refill Social History Tobacco Use Types Packs/Day Years [...] st Contact Info) Description 01/21/2025 Procedure Pass [facility] Echocardiography [address] [place] [address] 07/17/2025 10:00 AM EDT Appointment [facility] Echocardiography [address] [place] [address] Annita Holden, FLYING SQUAD WORKER [address] [place] [address] [email or web address] 07/17/2025 11:00 AM EDT Office Visit [facility] Cardiac Transplant [address] [place] [address] Unknown, Unknown, documented as of this encounter [...] was found to be COVID+, transferred to [facility] for further management. Assessment: Recent [...] AM EDT PHQ-2 Depression Total Score: 0 01/08/20 21 10:40 AM EDT documented as of this encounter Care Teams Beehive Kiln Charcoal Burner Relationship Specialty Start Date End Date Dung Chen MD [address] [place] [address] PCP - General 08/21/14 Annita Watson MD [address] [place] [address] Neurosurgery 09/17/19 Carlos Alberto Stanford MD [address] [place] [address] Spiritual Care Coordinator Internal Medicine 07/10/23 07/18/24 Han Hopkins MD, MARIA L [address] [place] [address] [email or web address] Interventional Radiology 07/10/23 Dung Chen MD [address] [place] [address] Internal Medicine 07/10/23 Nomra Sanchez PA [address] [place] [address] Spiritual Care Coordinator Physician Rivet Passer 07/18/24 documented as of this encounter Additional Source Comments The information contained in this document represents components of the legal health record. It is not the complete legal health record.[facility]
--- OUTSIDE RECORDS SUMMARY | 2025-03-05 21:12 | XMS_ITS | Encounter Summary ---
Author Organization [facility] Address [address] [place] [address] Phone Care Team Providers Care Home Care Aide Name Role Phone Dung Chen MD Primary Care Provider [phone] Tia Granda NP Unavailable [email or web address] Annita Watson MD Unavailable [phone] Carlos Alberto Stanford MD Unavailable [phone] Han Hopkins MD, MARIA L Unavailable Dung Chen MD Unavailable [phone] Norma Sanchez Unavailable [phone] Reason for Referral * Consultation (Within 1 month) - Closed Specialty Diagnoses / Procedures Referred By Contac t Referred To Contact Neurology Diagnoses Heart failure, unspecified Heart replaced by transplant Diabetic neuropathy Adriel Rivera MD, MPH Phone: tel: fax: mailto:[email or web address] Referral ID Status Reason Start Date Expiration Date Visits Re quested Visits Authorized [id number] Closed 04/16/2015 04/16/2016 1 1 Scheduling Instructions For the e-consult question, click Yes ONLY if you have a clinical question you would like answered directly by a specialist in your In Basket. Encounter Details Date Type Department Care Team (Latest Contact Info) Description 04/16/2015 Transcribe Orders [facility] Cardiac Stress Lab [address] [place] [address] Adriel Rivera MD, MPH 75 [facility] [address] [place] [address] [email or web address] Heart failure, unspecified (Primary Dx); Heart replaced by transplant; Diabetic neuropathy Social History Tobacco Use Types Packs/Day Years [...] Contact Info) Description 01/21/2025 Procedure Pass [facility] Echocardiography [address] [place] [address] 07/17/2025 10:00 AM EDT Appointment [facility] Echocardiography [address] [place] [address] Annita Holden, SHELL FREEZING MACHINE OPERATOR [address] [place] [address] [email or web address] 07/17/2025 11:00 AM EDT Office Visit [facility] Cardiac Transplant [address] [place] [address] Unknown, Jeaneth, Scheduled Referrals Name Type Priority Associated Diagnoses Order Schedule Ambulatory referral to [facility] Neurology Outpatient Referral Routine Heart failure, unspecified Heart replaced by transplant Diabetic neuropathy Ordered: 04/16/2015 documented as of this encounter Visit Diagnoses Diagnosis Heart failure, unspecified- Primary Heart replaced by transplant Diabetic neuropathy Type II or unspecified type diabetes mellitus with neurological manifestations, not stated as uncontrolled documented in this encounter Additional Health Concerns [...] found to be COVID+, transferred to [facility] for further management. Assessment: Recent swabs [...] documented as of this encounter Care Teams Home Care Aide Relationship Specialty Start Date End Date Dung Chen MD [address] [place] [address] PCP - General 08/21/14 Tia Granda NP [email or web address] Historical LMR Provider 08/30/14 02/21/21 Annita Watson MD [address] [place] [address] Neurosurgery 09/17/19 Carlos Alberto Stanford MD [address] [place] [address] Methods Analyst Internal Medicine 07/10/23 07/18/24 Han Hopkins MD, MARIA L [address] [place] [address] [email or web address] Interventional Radiology 07/10/23 Dung Chen MD [address] [place] [address] Internal Medicine 07/10/23 [place] [address] [place] [address] Methods Analyst Physician Water Pollution Control Technician 07/18/24 documented as of this encounter Additional Source Comments The information contained in this document represents components of the legal health record. It is not the complete legal health record.[facility]
--- OUTSIDE RECORDS SUMMARY | 2025-03-05 21:12 | XMS_ITS | Encounter Summary ---
Author Organization [facility] Address [address] [place] [address] Phone Care Team Providers Care Forensic Materials Engineer Name Role Phone Dugn Chen MD Primary Care Provider +- [phone] Tia Granda NP Unavailable [email or web address] Annita Watson MD Unavailable [phone] Carlos Alberto Stanford MD Unavailable [phone] Han Hopkins MD, MARIA L Unavailable Dung Chen MD Unavailable [phone] Norma Sanchez Unavailable [phone] Encounter Details Date Type Department Care Team (Late st Contact Info) Description 02/21/2019 Ancillary Orders [facility] Cardiovascular Clinic [address] [place] [address] Dharmesh Chan MD [address] [place] [address] [email or web address] Pain Social History Tobacco Use Types Packs/Day Years [...] st Contact Info) Description 01/21/[address] [facility] Echocardiography [address] [place] [address] 07/17/2025 10:[address] [facility] Echocardiography [address] [place] [address] Annita Holdeniam, PROPELLER ENGINEER [address] [place] [address] [email or web address] 07/17/2025 11:00 AM EDT Office [address] [facility] Cardiac Transplant [address] [place] [address] Unknown, Unknown, documented as of this encounter Results * US Lower Extremity Arteries Duplex (Bilateral) (02/21/2019 2:37 PM EST) Dorsalis Pedis 100 mmHg PERCIPIO_[facility] Dorsalis Pedis Index 0.81 [facility] Arm 123 mmHg [facility] Anatomical Region Laterality Modality [facility] Narrative 02/21/2019 6:46 PM EST Right lower extremity with mid popliteal artery stenosis, velocity 378 cm/s. Left lower extremity is widely patent arterial flows, without evidence of stenosis. Lower Arterial Duplex Left EXTERNAL ILIAC ; Lower left extremity Velocities in cm/s 127 CHEMICAL MILLING PROCESSOR 106 PFA 70 SFA prox 85 SFA thigh prox 68 SFA thigh mid 79 SFA thigh dist 79 POP A AK 84 POP A prox; prox to stent 80 POP A prox; prox stent 69 POP A mid; mid stent 113 POP A dist; dist stent 109 POP A dist to stent 139 TPT 84 DIRECTOR PROCESS ENGINEERING calf dist 82 JOANN calf dist 0 JENNIFER calf dist Lower Arterial Duplex Right EXTERNAL ILIAC ; Lower right extremity Velocities in cm/s 138 CHEMICAL MILLING PROCESSOR 167 PFA 118 SFA prox 75 SFA prox thigh 69 SFA thigh mid 79 SFA thigh dist 66 POP A AK 74 POP A prox 150 POP A prox to stenosis *378 POP A mid 114 POP A mid; dist to stenosis 82 POP A dist 89 TPT region 90 DIRECTOR PROCESS ENGINEERING calf dist 59 JENNIFER calf dist 54 JOANN calf dist Comments Results were communicated and documented in ANCR. us Dharmesh Chan MD CV US VASCULAR Final Res ult documented in this encounter Visit Diagnoses Diagnosis Pain Generalized pain Pain Generalized pain documented in this encounter Additional Health Concerns [...] was found to be COVID+, transferred to [facility] for further management. Assessment: Recent [...] AM EDT PHQ-2 Depression Total Score: 0 11/09/19 19 8:52 AM EDT documented as of this encounter Care Teams Forensic Materials Engineer Relationship Specialty Start Date End Date Dung Chen MD [address] [place] [address] PCP - General 08/21/14 Tia Granda NP [email or web address] Historical LMR Provider 08/30/14 02/21/21 Annita Watson MD [address] [place] [address] Neurosurgery 09/17/19 Carlos Alberto Stanford MD [address] [place] [address] Rubber Tubing Splicer Internal Medicine 07/10/23 07/18/24 Han Hopkins MD, MARIA L [address] [place] [address] [email or web address] Interventional Radiology 07/10/23 Dung Chen MD [address] [place] [address] Internal Medicine 07/10/23 Norma Sanchez PA [address] [place] [address] [id number] Rubber Tubing Splicer Physician Clutch Operator 07/18/24 documented as of this encounter Additional Source Comments The information contained in this document represents components of the legal health record. It is not the complete legal health record.[facility]
--- OUTSIDE RECORDS SUMMARY | 2025-03-05 21:12 | XMS_ITS | Encounter Summary ---
Author Organization [facility] Address [address] [address] Phone Care Team Providers Care Membership Sales Representative Name Role Phone Dung Chen MD Primary Care Provider +- [phone] Annita Watson MD Unavailable [phone] Carlos Alberto Stanford MD Unavailable [phone] Han Hopkins MD, MARIA L Unavailable [phone] Dung Chen MD Unavailable [phone] Norma Sanchez Unavailable [phone] Encounter Details Date Type Department Care Team (Late st Contact Info) Description 06/23/2021 Procedure Pass [facility] [address] [place] [address] Social History Tobacco Use Types Packs/Day Years [...] 12:00 PM EST Félix Menendez, RN * [place] Suicide Severity Rating Scale (Screener/Recent Self-Report) Question [...] st Contact Info) Description 01/21/2025 Procedure Pass [facility] Echocardiography [address] [place] [address] 07/17/2025 10:00 AM EDT Appointment [facility] Echocardiography [address] [place] [address] Annita Holden, TRANSACTION ADVISORY SERVICES MANAGER [address] [place] [address] [email or web address] 07/17/2025 11:00 AM EDT Office Visit [facility] Cardiac Transplant [address] [place], [place] [id number] Unknown, Unknown, documented as of this encounter [...] was found to be COVID+, transferred to [facility] for further management. Assessment: Recent swabs [...] documented as of this encounter Care Teams Membership Sales Representative Relationship Specialty Start Date End Date Dung Chen MD [address] [place] [address] PCP - General 08/21/14 Annita Watson MD [address] [place] [address] Neurosurgery 09/17/19 Carlos Alberto Stanford MD [address] [place] [address] Earth Sciences Professor Internal Medicine 07/10/23 07/18/24 Han Hopkins MD, MARIA L [address] [place] [address] Interventional Radiology 07/10/23 Dung Chen MD [address] [place] [address] Internal Medicine 07/10/23 Norma Sanchez PA [address] [place] [address] Earth Sciences Professor Physician Practice Office Associate 07/18/24 documented as of this encounter Additional Source Comments The information contained in this document represents components of the legal health record. It is not the complete legal health record.[facility]
--- OUTSIDE RECORDS SUMMARY | 2025-03-05 21:12 | XMS_ITS | Encounter Summary ---
Author Organization [facility] Address [address] [place] [address] Phone Care Team Providers Care Pot Puller Name Role Phone Dung Chen MD Primary Care Provider +- [phone] Tia Granda NP Unavailable [email or web address] Annita Watson MD Unavailable [phone] Carlos Alberto Stanford MD Unavailable [phone] Han Hopkins MD, MARIA L Unavailable Dung Chen MD Unavailable [phone] Norma Sanchez Unavailable [phone] Encounter Details Date Type Department Care Team (Late Contact Info) Description 05/05/[address] [facility] Echocardiography [address] [place] [address] Social History Tobacco Use Types Packs/Day Years [...] (Late Contact Info) Description 01/21/[address] [facility] Echocardiography [address] [place] [address] 07/17/2025 10:[address] [facility] Echocardiography [address] [place] [address] Annita Holden, SALT CUTTER [address] [place] [address] [email or web address] 07/17/2025 11:00 AM EDT Office Visit [facility] Cardiac Transplant [address] [place] [address] Unknown, Unknown, documented as of this encounter [...] found to be COVID+, transferred to [facility] for further management. Assessment: Recent swabs [...] documented as of this encounter Care Teams Pot Puller Relationship Specialty Start Date End Date Dung Chen MD [address] [place] [address] PCP - General 08/21/14 Tia Granda NP [email or web address] Historical LMR Provider 08/30/14 02/21/21 Annita Watson MD [address] [place] [address] Neurosurgery 09/17/19 Carlos Alberto Stanford MD [address] [place] [address] Milling/Polishing Operator Internal Medicine 07/10/23 07/18/24 Han Hopkins MD, MARIA L [address] [place] [address] [email or web address] Interventional Radiology 07/10/23 Dung Chen MD [address] [place] [address] Internal Medicine 07/10/23 Norma Sanchez PA [address] [place] [address] Milling/Polishing Operator Physician Recreation Professor 07/18/24 documented as of this encounter Additional Source Comments The information contained in this document represents components of the legal health record. It is not the complete legal health record.[facility]
--- OUTSIDE RECORDS SUMMARY | 2025-03-05 21:12 | XMS_ITS | Encounter Summary ---
Author Organization [facility] Address [address] [address] Phone Care Team Providers Care Offshoring Manager Name Role Phone Dung Chen MD Primary Care Provider +- [phone] Annita Watson MD Unavailable [phone] Carlos Alberto Stanford MD Unavailable [phone] Han Hopkins MD, MARIA L Unavailable Dung Chen MD Unavailable [phone] Norma Sanchez Unavailable [phone] Encounter Details Date Type Department Care Team (Late st Contact Info) Description 06/23/2021 Procedure Pass [facility] [address] [place] [address] Social History Tobacco Use Types Packs/Day Years [...] 12:00 PM EST Félix Menendez, RN * [place] Suicide Severity Rating Scale (Screener/Recent Self-Report) Question Answer Date of Assessment Author 1. Wish to be (Past 1 Month) No 022 12:00 PM Félix oWods, RN 2. Non-Specific Active Suici luma Thoughts (Past 1 Month) No 06/23/2021 12:00 PM Félix Woods, RN 6. Suicidal Behavior (Lifetime) No 12:00 PM Félix Woods, RN documented as of this encounter Plan of Treatment Upcoming Encounters Date Type Department Care Team (Late st Contact Info) Description 01/21/2025 Procedure Pass [facility] Echocardiography [address] [place] [address] 07/17/2025 10:00 AM EDT Appointment [facility] Echocardiography [address] [place] [address] Annita Holden, HYDRAULIC ROCKBREAKER OPERATOR [address] [place] [address] [email or web address] 07/17/2025 11:00 AM EDT Office Visit [facility] Cardiac Transplant [address] [place], [place] [id number] Unknown, Unknown, documented as of this encounter [...] was found to be COVID+, transferred to [facility] for further management. Assessment: Recent swabs [...] documented as of this encounter Care Teams Offshoring Manager Relationship Specialty Start Date End Date Dung Chen MD [address] [place] [address] PCP - General 08/21/14 Annita Watson MD [address] [place] [address] Neurosurgery 09/17/19 Carlos Alberto Stanford MD [address] [place] [address] Mixer Attendant Internal Medicine 07/10/23 07/18/24 Han Hopkins MD, MARIA L [address] [place] [address] Interventional Radiology 07/10/23 Dung Chen MD [address] [place] [address] Internal Medicine 07/10/23 Norma Sanchez PA [address] [place] [address] Mixer Attendant Physician Roof Tiler 07/18/24 documented as of this encounter Additional Source Comments The information contained in this document represents components of the legal health record. It is not the complete legal health record.[facility]
--- OUTSIDE RECORDS SUMMARY | 2025-03-05 21:13 | XMS_ITS | Encounter Summary ---
Author Organization [facility] Address [address] [place] [address] Phone Care Team Providers Care Air Compressor Operator Name Role Phone Dung Chen MD Primary Care Provider +- [phone] Tia Granda NP Unavailable [email or web address] Annita Watson MD Unavailable [phone] Carlos Alberto Stanford MD Unavailable [phone] Han Hopkins MD, MARIA L Unavailable [phone] Dung Chen MD Unavailable [phone] Norma Sanchez Unavailable [phone] Encounter Details Date Type Department Care Team (Latest Contact Info) Description 04/04/2016 Transcribe Orders [facility] Cardiac Transplant [address] [place] [address] Albina Glass [address] [place] [address] [email or web address] post heart transplantation (Primary Dx) Social History Tobacco Use Types [...] st Contact Info) Description 01/21/2025 Procedure Pass [facility] Echocardiography [address] [place] [address] 07/17/2025 10:00 AM EDT Appointment [facility] Echocardiography [address] [place] [address] Annita Holden, TAIL WORKER [address] [place] [address] [email or web address] 07/17/2025 11:00 AM EDT Office Visit [facility] Cardiac Transplant [address] [place] [address] Unknown, Jeaneth, documented as of this encounter Results * TTE COMPREHENSIVE (04/25/2016 3:13 PM EST) Left Ventricle Internal Diameter End Diastole 38 42 - 58 mm Left Ventricle Internal Diameter End Systole 27 25 - 40 mm Raw LV EF% 50 % Ejection Fraction 59.10 50 - 75 % Left Ventricular Mass 157.32 g Left Ventricle indexed to BSA 72.83 g/mL Relative Wall Thickness 0.39 0.22 - 0.42 Body Surface Area 2.16 m2 Left Ventricle E Wave Speed 67.0 cm/s Left Ventricle Ea Septal Wave Speed 5.8 cm/s Echo E/Ea 11.55 Left Ventricle Diastolic Volume 83.20 mL Left Ventricle Systolic Volume 25.00 mL Left Ventricle Systolic Volume Index 11.57 mL/m2 Left Ventricle Diastolic Volume Index 38.52 mL/m2 Left Ventricular Outflow Tract Diameter 2.10 cm Tricuspid Valve Peak Gradient 8.00 mmhg Left Atrium Dimension Anterior-Posterior 52 15 - 40 mm Tricuspid Valve Peak Velocity 2.22 m/s Right Ventricle Peak Systolic Pressure 25 mmHg Right Ventricle Estimated PA Pressure 18.38 mmHg Left Ventricular Outflow Tract Cross Sectional Area 3.46 cm2 Right Atrium Pressure Estimated 5 mmHg Right Ventricle to Right Atrium Pressure Gradient 20 mmHg Height 175.26 cm Weight 101.15 kg Systolic BP 128.00 mmHg Diastolic BP 80.00 mmHg Ascending Aorta Diameter 34 mm Left Ventricular Posterior Wall Thickness 7 mm Interventricular Septum Thickness 17 mm Ascending Aorta Diameter 16 mm Ascending Aorta Index 16 mm Anatomical Region Laterality Modality Heart [facility] Narrative 04/25/2016 4:03 PM EST The contour of the heart reflect's the pt's prior cardiac transplant. LV and RV size and systolic function are normal without regional variability. The calculated ejection fraction is 59 %. Left Ventricle The left ventricular cavity size and wall thickness are normal. Left ventricular systolic function is normal. There are no segmental left ventricular wall motion abnormalities noted. The estimated ejection fraction is 59.1% (Normal 50-75%). The left ventricular ejection fraction was measured by the bi-plane method of discs. Left ventricular diastolic function could not be adequately assessed. Right Ventricle The right ventricular size is normal. No evidence of right ventricular hypertrophy. The right ventricular systolic function is normal. Left Atrium The left atrium is dilated. The left atrium is enlarged due to cardiac transplant. Right Atrium The right atrium is dilated. The IVC was not well visualized. Mitral Valve The mitral valve appears normal. There is no evidence of mitral stenosis. There is trace mitral regurgitation detected by spectral and color Doppler. Tricuspid Valve The tricuspid valve appears normal. There is no evidence of tricuspid stenosis. There is evidence of trace tricuspid regurgitation by color and spectral Doppler. The RV systolic pressure was estimated from the peak TV regurgitant velocity. The estimated RV systolic pressure is 25 mmHg assuming a right atrial pressure of 5 mmHg. Aortic Valve The aortic valve is tricuspid. There is mild thickening of multiple aortic leaflets. There is no evidence of valvular aortic stenosis. There is evidence of trace aortic regurgitation by color and spectral Doppler. The visualized portions of the thoracic aorta appear normal. Pulmonic Valve The pulmonary valve appears normal. There is no evidence of pulmonic stenosis. There is evidence of trace pulmonary regurgitation by color and spectral Doppler. Pericardium There is no evidence of pericardial effusion. There is a space between visceral and parietal pericardium most consistent with epicardial fat. General Findings The study was technically difficult (4). Study quality explanation: body habitus and no subcostal views. Comparison Findings Compared to a prior study from 04/13/2015, no important changes. us Hussein Olson MD CV ECHO ORDERABLES Final Re sult * XR CHEST PA AND LATERAL 2 VIEWS (04/25/2016 12:06 PM EST) Anatomical Region Laterality Modality Chest Computed Radiogr aphy 04/25/2016 12:0 6 PM EST Impressions 04/25/2016 2:07 PM EST PA and lateral chest examination. Lines and tubes: None Lungs and pleura: Moderately expanded lungs without focal consolidations. No pleural effusions and no pneumothorax. Cardiomediastinal silhouette: Stable postoperative appearance with evidence of prior median sternotomy. END IMPRESSION Narrative 04/25/2016 2:07 PM EST INDICATION: SSX: Heart failure COMPARISON: 04/13/15 Procedure Note Lori Corona MD - 04/25/2016 INDICATION: SSX: Heart failure COMPARISON: 04/13/15 IMPRESSION: PA and lateral chest examination. Lines and tubes: None Lungs and pleura: Moderately expanded lungs without focal consolidations. No pleural effusions and no pneumothorax. Cardiomediastinal silhouette: Stable postoperative appearance with evidence of prior median sternotomy. END IMPRESSION us Hussein Olson MD IMG XR CHEST Final Resul t * Stress Test Exercise with MVO2 (04/25/2016 11:41 AM EST) Anatomical Region Laterality Modality Heart [facility] 04/25/2016 11:0 0 AM EST Narrative 04/25/2016 5:[address] Olson, Your patient Tony Thompson, a 65 year old male with known CAD and prior transplant was referred to us for a cardiopulmonary exercise ramp cycle test for post heart transplant evaluation. His cardiopulmonary risk factors include hypertension, dyslipidemia and obesity. The patient's resting ECG showed normal sinus rhythm and RBBB. He was on the following medications at the time of testing: Doxazosin, Aspirin, Rosuvastatin, Insulin, Gabapentin, Cellcept, Prograf, Prednisone. Exercise Protocol: Mr. Thompson exercised for 7:53 minutes of a 10-watt/min ramp cycle protocol to a maximum of 78 owusu. Oxygen saturation was measured at rest and stress using a pulse-oximeter. The heart rate increased from 99 bpm at rest to a peak heart rate of 116 bpm (74% age predicted maximal heart rate), and the blood pressure increased from 108/74 mm Hg at rest to 148/76 mm Hg at peak exercise (RPP: 64180). Oxygen saturation remained unchanged at 98% during exercise. Exercise was terminated due to dyspnea and fatigue. The symptomatic response to exercise was non-ischemic. The blood pressure response was normal. The ECG response to exercise indicated no significant ST-T changes. No exercise-induced arrhythmia was observed. = ANTHROPOMETRICS = Age: 65 Gender: Male Height: 69 in/175 cm Weight: 230 lb/105 kg BMI: 34.0 kg/m2 Hgb: = EXERCISE CAPACITY = Exercise Protocol: 10 owusu/min Maximum [place]u Achieved: 78 owusu Exercise Duration: 7:53 (min:sec) Reason to End Exercise: Dyspnea and fatigue. Predicted Measured % of Predicted Rest VO2 (mL/min) 303 AT VO2 (mL/min) >40% of Peak VO2 924 41% Peak VO2 (mL/min) 2252 1342 60% Peak VO2/kg(mL/kg/min) 12.9 = CARDIOVASCULAR RESPONSE = Symptomatic Response: Non-ischemic. Blood Pressure Response: Normal. ECG Response: Indicated no significant ST-T changes. Stress Induced Arrhythmias: No exercise-induced arrhythmia was observed. Predicted Measured % of Predicted Rest Heart Rate (bpm) 99 Peak Heart Rate (bpm) 156 116 74% HR [place] (bpm) 57 HR Recovery (1 min) > 12 1 Rest Blood Press (mm Hg) 108/74 Peak Blood Press (mm Hg) 148/76 Peak O2 Pulse (mL/beat) 14.4 11.6 81% VO2/WR (mL/min/watt) > 10.2 +/- 1 13.3 HR/VO2 < 50 15.4 Cardiac Output (Qt) 16.1 Rest RER 0.78 Peak RER 1.15 Hemodynamic Stage Data: Intensity Heart Blood RPE Speed (Grade Rate Pressure (Scale (MPH) or [place]) (bmp) (mm Hg) of 10) BASELINE Supine 99 108/74 Sitting 100 104/74 STRESS Stage 1 30 100 122/76 Stage 2 60 106 126/76 Stage 3 78 116 148/76 RECOVERY IPE Standing 115 IPE Supine 115 1 Minute 115 144/80 3 Minute 110 94/76 5 Minute 105 106/78 8 Minutes 104 106/78 = VENTILATORY RESPONSE = Measured Percent VE/VCO2 (Valencia) 29.88 VE @ AT 30 VE @ Peak 45.4 = GAS EXCHANGE VARIABLES = Rest Peak SpO2% 98% 98% In summary, the test results were: 1. Functional Capacity: Peak VO2 is 12.9 mL/kg/min (3.7 METS), which is 60% of predicted based on the patient's body weight and sex using the Rajani formula. 2. Anaerobic Threshold: A normal anaerobic threshold was observed. 3. Peak Heart Rate: 116 bpm (74% age-predicted maximal heart rate). 4. Symptomatic Response: Non-ischemic based on the absence of cardiac angina or cardiac angina equivalents during exercise. 5. Peak Blood Pressure: 148/76 mm Hg. 6. Blood Pressure Response: Normal. 7. ECG Response: No ischemic ST segment changes were observed at the achieved exercise workload. 8. Stress-induced Arrhythmia: None. 9. VE/VCO2 Valencia: Normal VE/VCO2 slope of 29.9 (defined as < 30.0). 10. Hypoxemia: No resting or exertional hypoxemia (defined as rest O2 saturation >= 95% and peak O2 saturation >= 93%). CONCLUSION: 1. Exercise effort was adequate based on RER that was at least 1.05 (RER = 1.15). The functional capacity was moderately decreased based on peak VO2 that was 60% of predicted. 2. Negative test for myocardial ischemia at the achieved exercise workload. 3. The anaerobic threshold was normal. 4. Normal VE/VCO2 slope. 5. The blood pressure response to exercise was normal. Compared to a prior MVO2 study from 04/13/2015, the peak VO2 expressed as a percent of predicted has increased from 40% previously to 60% today (absolute peak VO2 8.7 ml/kg/min previously to 12.9 mL/kg/min today). The patient was sent with a preliminary report to his clinic appointment. Stress ECG tracings available from [facility]'s [employer] Web Applications. Thank you for referring this patient to us. Sincerely yours, Darryl Cisneros M.D., Attending Physician Procedure Note Darryl Cisneros MD - 04/25/[address] Olson, Your patient Tony Thompson, a 65 year old male with known CAD and priortransplant was referred to us for a cardiopulmonary exercise ramp cycletest for post heart transplant evaluation. His cardiopulmonary riskfactors include hypertension, dyslipidemia and obesity. The patient's resting ECG showed normal sinus rhythm and RBBB. He was onthe following medications at the time of testing: Doxazosin, Aspirin,Rosuvastatin, Insulin, Gabapentin, Cellcept, Prograf, Prednisone. Exercise Protocol: Mr. Thompson exercised for 7:53 minutes of a 10-watt/min ramp cycle protocolto a maximum of 78 owusu. Oxygen saturation was measured at rest andstress using a pulse- oximeter. The heart rate increased from 99 bpm atrest to a peak heart rate of 116 bpm (74% age predicted maximal heart rate), and the blood pressure increasedfrom 108/74 mm Hg at rest to 148/76 mm Hg at peak exercise (RPP: 94651).Oxygen saturation remained unchanged at 98% during exercise. Exercise was terminated due to dyspnea and fatigue. The symptomaticresponse to exercise was non-ischemic. The blood pressure response wasnormal. The ECG response to exercise indicated no significant ST-Tchanges. No exercise-induced arrhythmia was observed. = ANTHROPOMETRICS = Age: 65 Gender: Male Height: 69 in/175 cm Weight: 230 lb/105 kg BMI: 34.0 kg/m2 Hgb: = EXERCISE CAPACITY = Exercise Protocol: 10 owusu/min Maximum Owusu Achieved: 78 owusu Exercise Duration: 7:53 (min:sec) Reason to End Exercise: Dyspnea and fatigue. Predicted Measured % of Predicted Rest VO2 (mL/min) 303 AT VO2 (mL/min) >40% of Peak VO2 924 41% Peak VO2 (mL/min) 2252 1342 60% Peak VO2/kg(mL/kg/min) 12.9 = CARDIOVASCULAR RESPONSE = Symptomatic Response: Non-ischemic. Blood Pressure Response: Normal. ECG Response: Indicated no significant ST-T changes. Stress Induced Arrhythmias: No exercise-induced arrhythmia was observed. Predicted Measured % of Predicted Rest Heart Rate (bpm) 99 Peak Heart Rate (bpm) 156 116 74% HR [place] (bpm) 57 HR Recovery (1 min) > 12 1 Rest Blood Press (mm Hg) 108/74 Peak Blood Press (mm Hg) 148/76 Peak O2 Pulse (mL/beat) 14.4 11.6 81% VO2/WR (mL/min/watt) > 10.2 +/- 1 13.3 HR/VO2 < 50 15.4 Cardiac Output (Qt) 16.1 Rest RER 0.78 Peak RER 1.15 Hemodynamic Stage Data: Intensity Heart Blood RPE Speed (Grade Rate Pressure (Scale (MPH) or [place]) (bmp) (mm Hg) of 10) BASELINE Supine 99 108/74 Sitting 100 104/74 STRESS Stage 1 30 100 122/76 Stage 2 60 106 126/76 Stage 3 78 116 148/76 RECOVERY IPE Standing 115 IPE Supine 115 1 Minute 115 144/80 3 Minute 110 94/76 5 Minute 105 106/78 8 Minutes 104 106/78 = VENTILATORY RESPONSE = Measured Percent VE/VCO2 (Valencia) 29.88 VE @ AT 30 VE @ Peak 45.4 = GAS EXCHANGE VARIABLES = Rest Peak SpO2% 98% 98% In summary, the test results were: 1. Functional Capacity: Peak VO2 is 12.9 mL/kg/min (3.7 METS), which is60% of predicted based on the patient's body weight and sex using theWasserman formula. 2. Anaerobic Threshold: A normal anaerobic threshold was observed. 3. Peak Heart Rate: 116 bpm (74% age-predicted maximal heart rate). 4. Symptomatic Response: Non-ischemic based on the absence of cardiacangina or cardiac angina equivalents during exercise. 5. Peak Blood Pressure: 148/76 mm Hg. 6. Blood Pressure Response: Normal. 7. ECG Response: No ischemic ST segment changes were observed at theachieved exercise workload. 8. Stress-induced Arrhythmia: None. 9. VE/VCO2 Valencia: Normal VE/VCO2 slope of 29.9 (defined as < 30.0). 10. Hypoxemia: No resting or exertional hypoxemia (defined as rest [id number] >= 95% and peak O2 saturation >= 93%). CONCLUSION: 1. Exercise effort was adequate based on RER that was at least 1.05 (RER =1.15). The functional capacity was moderately decreased based on peak [id number] was 60% of predicted. 2. Negative test for myocardial ischemia at the achieved exerciseworkload. 3. The anaerobic threshold was normal. 4. Normal VE/VCO2 slope. 5. The blood pressure response to exercise was normal. Compared to a prior MVO2 study from 04/13/2015, the peak VO2 expressed asa percent of predicted has increased from 40% previously to 60% today(absolute peak VO2 8.7 ml/kg/min previously to 12.9 mL/kg/min today). The patient was sent with a preliminary report to his clinic appointment. Stress ECG tracings available from [facility]'s [employer] Web Applications. Thank you for referring this patient to us. Sincerely yours, Darryl Cisneros M.D., Attending Physician us Hussein Olson MD CV STRESS ORDERABLES Final Result documented in this encounter Visit Diagnoses Diagnosis Status post heart transplantation- Primary Heart replaced by transplant Status post heart transplantation Heart replaced by transplant Status post heart transplantation Heart replaced by transplant Status post heart transplantation Heart replaced by transplant documented in this [...] was found to be COVID+, transferred to [facility] for further management. Assessment: Recent swabs [...] AM EDT PHQ-2 Depression Total Score: 0 12/10/19 16 8:10 AM EDT documented as of this encounter Care Teams Air Compressor Operator Relationship Specialty Start Date End Date Dung Chen MD [address] [place] [address] PCP - General 08/21/14 Tia Granda NP [email or web address] Historical LMR Provider 08/30/14 02/21/21 Annita Watson MD [address] [place] [address] Neurosurgery 09/17/19 Carlos Alberto Stanford MD [address] [place] [address] Veterinary Medicine Doctor Internal Medicine 07/10/23 07/18/24 Han Hopkins MD, MARIA L [address] [place] [address] [email or web address] Interventional Radiology 07/10/23 Dung Chen MD [address] [place] [address] Internal Medicine 07/10/23 Norma Sanchez PA [address] [place] [address] Veterinary Medicine Doctor Physician Importer Or Exporter 07/18/24 documented as of this encounter Additional Source Comments The information contained in this document represents components of the legal health record. It is not the complete legal health record.[facility]
--- OUTSIDE RECORDS SUMMARY | 2025-03-05 21:13 | XMS_ITS | Encounter Summary ---
Author Organization [facility] Address [address] [place] [address] Phone Care Team Providers Care Blending Coordinator Name Role Phone Dung Chen MD Primary Care Provider [phone]- [phone] Tia Granda NP Unavailable [email or web address] Annita Watson MD Unavailable [phone] Carlos Alberto Stanford MD Unavailable [phone] Han Hopkins MD, MARIA L Unavailable Dung Chen MD Unavailable [phone] Norma Sanchez Unavailable [phone] Encounter Details Date Type Department Care Team (Late st Contact Info) Description 06/29/2017 Procedure Pass [facility] [address] [place] [address] Social History Tobacco Use Types Packs/Day Years Used Date Smoking Tobacco: Former Smokeless Tobacco: Never Sex and Gender Information Value Date Recorded Sex Assigned at Not on file Legal Sex Male 6:47 PM EST Gender Identity Not on file Sexual Orientation Not on file documented as of this encounter Plan of Treatment Upcoming Encounters Date Type Department Care Team (Late st Contact Info) Description 01/21/2025 Procedure Pass [facility] Echocardiography [address] [place] [address] 07/17/2025 10:00 AM EDT Appointment [facility] Echocardiography [address] [place] [address] Annita Holden, SALES AND LEASING CONSULTANT [address] [place], [place] [id number] [email or web address] 07/17/2025 11:00 AM EDT Office Visit [facility] Cardiac Transplant [address] [place] [address] Unknown, MD Jeaneth documented as of this [...] was found to be COVID+, transferred to [facility] for further management. Assessment: Recent swabs [...] 11:24 AM EDT PHQ-2 Depression Total Score: 4 05/04/19 18 8:26 AM EST documented as of this encounter Care Teams Blending Coordinator Relationship Specialty Start Date End Date Dung Chen MD [address] [place] [address] PCP - General 08/21/14 Tia Granda NP [email or web address] Historical LMR Provider 08/30/14 02/21/21 Anntia Watson MD [address] [place] [address] Neurosurgery 09/17/19 Carlos Alberto Stanford MD [address] [place] [address] Patternmaker Helper Internal Medicine 07/10/23 07/18/24 Han Hopkins MD, MARIA L [address] [place] [address] Interventional Radiology 07/10/23 Dung Chen MD [address] [place] [address] Internal Medicine 07/10/23 Norma Sanchez PA [address] [place] [address] Patternmaker Helper Physician Mission Analyst 07/18/24 documented as of this encounter Additional Source Comments The information contained in this document represents components of the legal health record. It is not the complete legal health record.[facility]
--- OUTSIDE RECORDS SUMMARY | 2025-03-05 21:13 | XMS_ITS | Encounter Summary ---
Author Organization [facility] Address [address] [place] [address] Phone Care Team Providers Care Substation Operator Transforming Name Role Phone Dung Chen MD Primary Care Provider [phone]- [phone] Tia Granda NP Unavailable [email or web address] Annita Watson MD Unavailable [phone] Carlos Alberto Stanford MD Unavailable [phone] Han Hopkins MD, MARIA L Unavailable Dung Chen MD Unavailable [phone] Norma Sanchez Unavailable [phone] Encounter Details Date Type Department Care Team (Late st Contact Info) Description 05/05/2017 Procedure Pass [facility] Cardiac Director Of Retail Marketing [address] [place] [address] Social History Tobacco Use Types Packs/Day Years [...] st Contact Info) Description 01/21/2025 Procedure Pass [facility] Echocardiography [address] [place] [address] 07/17/2025 10:00 AM EDT Appointment [facility] Echocardiography [address] [place] [address] Annita Holden, RESIN FILTERER [address] [place] [address] [email or web address] 07/17/2025 11:00 AM EDT Office Visit [facility] Cardiac Transplant [address] [place] [address] Unknown, MD Jeaneth documented as of this [...] was found to be COVID+, transferred to [facility] for further management. Assessment: Recent swabs [...] documented as of this encounter Care Teams Substation Operator Transforming Relationship Specialty Start Date End Date Dung Chen MD [address] [place] [address] PCP - General 08/21/14 Tia Granda NP [email or web address] Historical LMR Provider 08/30/14 02/21/21 Annita Watson MD [address] [place] [address] Neurosurgery 09/17/19 Carlos Alberto Stanford MD [address] [place] [address] Regional Medical Director Internal Medicine 07/10/23 07/18/24 Han Hopkins MD, MARIA L [address] [place] [address] [email or web address] Interventional Radiology 07/10/23 Dung Chen MD [address] [place] [address] Internal Medicine 07/10/23 Norma Sanchez PA [address] [place] [address] Regional Medical Director Physician Relay Operator 07/18/24 documented as of this encounter Additional Source Comments The information contained in this document represents components of the legal health record. It is not the complete legal health record.[facility]
--- OUTSIDE RECORDS SUMMARY | 2025-03-05 21:13 | XMS_ITS | Encounter Summary ---
Author Organization [facility] Address [address] [place] [address] Phone Care Team Providers Care Yield Analyst Name Role Phone Dung Chen MD Primary Care Provider +- [phone] Tia Granda NP Unavailable [email or web address] Annita Watson MD Unavailable [phone] Carlos Alberto Stanford MD Unavailable [phone] Han Hopkins MD, MARIA L Unavailable Dung Chen MD Unavailable [phone] Norma Sanchez Unavailable [phone] Encounter Details Date Type Department Care Team (Late st Contact Info) Description 03/20/2018 Procedure Pass [facility] Cardiac Assistant Office Manager [address] [place] [address] Social History Tobacco Use Types Packs/Day Years Used Date Smoking Tobacco: Former Cigarettes Q uit: 08/20/1997 Smokeless Tobacco: Never Alcohol Use Standard Drinks/Week [...] st Contact Info) Description 01/21/2025 Procedure Pass [facility] Echocardiography [address] [place] [address] 07/17/2025 10:00 AM EDT Appointment [facility] Echocardiography [address] [place] [address] Annita Holden, FORMAL WAITER/WAITRESS [address] [place] [address] [email or web address] 07/17/2025 11:00 AM EDT Office Visit [facility] Cardiac Transplant [address] [place] [address] Unknown, Unknown, MD documented as of this encounter Visit Diagnoses [...] was found to be COVID+, transferred to [facility] for further management. Assessment: Recent swabs [...] AM EDT PHQ-2 Depression Total Score: 0 03/19/20 18 10:50 AM EST documented as of this encounter Care Teams Yield Analyst Relationship Specialty Start Date End Date Dung Chen MD [address] [place] [address] PCP - General 08/21/14 Tia Granda NP [email or web address] Historical LMR Provider 08/30/14 02/21/21 Annita Watson MD [address] [place] [address] Neurosurgery 09/17/19 Carlos Alberto Stanford MD [address] [place] [address] Assembly Supervisor Internal Medicine 07/10/23 07/18/24 Han Hopkins MD, MARIA L [address] [place] [address] [email or web address] Interventional Radiology 07/10/23 Dung Chen MD [address] [place] [address] Internal Medicine 07/10/23 Norma Sanchez PA [address] [place] [address] Assembly Supervisor Physician Coat Joiner 07/18/24 documented as of this encounter Additional Source Comments The information contained in this document represents components of the legal health record. It is not the complete legal health record.[facility]
--- OUTSIDE RECORDS SUMMARY | 2025-03-05 21:13 | XMS_ITS | Encounter Summary ---
Author Organization [facility] Address [address] [place] [address] Phone Care Team Providers Care Funeral Driver Name Role Phone Dung Chen MD Primary Care Provider [phone] Annita Watson MD Unavailable [phone] Carlos Alberto Stanford MD Unavailable [phone] Han Hopkins MD, MARIA L Unavailable Dung Chen MD Unavailable [phone] Norma Sanchez Unavailable [phone] Reason for Referral * Outpatient Procedure - Closed Specialty Diagnoses / Procedures Referred By Gerardo vidales Referred To Contact Diagnoses Heart transplant status Procedures Adult Echo TTE Magalys Hebert NP Phone: tel: fax: mailto:[email or web address] Referral ID Status Reason Start Date Expiration Date Visits Re quested Visits Authorized [id number] Closed 12/13/2021 12/13/2022 1 1 Encounter Details Date Type Department Care Team (Latest Contact Info) Description 12/13/2021 Transcribe Orders [facility] [address] [place] [id number] Sharon Hodges [place] [email or web address] Heart transplant status Social History Tobacco Use Types Packs/Day Years [...] st Contact Info) Description 01/21/2025 Procedure Pass [facility] Echocardiography [address] [place] [address] 07/17/2025 10:00 AM EDT Appointment [facility] Echocardiography [address] [place] [id number] Annita Holden, MEDICINE MAN [address] [place] [address] [email or web address] 07/17/2025 11:00 AM EDT Office Visit [facility] Cardiac Transplant [address] [place] [address] Unknown, Unknown, documented as of this encounter Results * TTE COMPREHENSIVE (06/13/2022 9:37 AM EST) Left Ventricle Internal Diameter End Diastole 37 42 - 58 mm Left Ventricle Internal Diameter End Systole 25 25 - 40 mm Raw LV EF% 54 % Ejection Fraction 60 50 - 75 % Left Ventricular Mass 139.58 g Left Ventricle indexed to BSA 65.22 g/mL Relative Wall Thickness 0.43 0.22 - 0.42 Body Surface Area 2.14 m2 Left Ventricle E Wave Speed 67.66 cm/s Left Ventricle A Wave Speed 46.36 cm/s Mitral Valve Deceleration Time 204.05 ms Aortic Sinus Diameter 34 mm Mitral Valve Area Pressure Half Time Eq 3.72 cm2 Left Atrium Dimension Anterior-Posterior 34 15 - 40 mm Right Ventricle TAPSE 11 mm Right Ventricle Pulse Doppler S Wave 7.0 cm/s Height 173 cm Weight 102 kg Systolic BP 130 mmHg Diastolic BP 72 mmHg Ascending Aorta Diameter 39 mm Left Ventricular Posterior Wall Thickness 12 mm Interventricular Septum Thickness 15 mm Aortic Valve Sinus Index 1 16 20 - 32 mm Ascending Aorta Diameter 18 mm Aortic Sinus Index 16 mm Ascending Aorta Index 18 mm Anatomical Region Laterality Modality Heart [facility] Narrative 06/13/2022 4:25 PM EST Left Ventricle Left ventricular cavity size is normal and the left ventricular wall thickness is increased. There is left ventricular hypertrophy with an upper septal predominance. Left ventricular systolic function is normal. There are no segmental left ventricular wall motion abnormalities noted. The estimated ejection fraction is 60% (Normal 50-75%). The left ventricular ejection fraction was measured by visual estimate. Right Ventricle The right ventricular size is normal. Right ventricular systolic function is at the lower limits of normal. Left Atrium The left atrium is enlarged due to cardiac transplant. Right Atrium The right atrium is dilated. The IVC is normal in size (2.1cm or less). The IVC demonstrates normal collapse with inspiration which is consistent with normal RA pressure. Mitral Valve There is mild diffuse thickening of the mitral valve leaflet. There is mild mitral regurgitation detected by spectral and color Doppler. Tricuspid Valve The tricuspid valve appears normal. There is evidence of trace tricuspid regurgitation by color and spectral Doppler. There is an insufficient tricuspid regurgitation Doppler profile to calculate a right ventricular systolic pressure. Aortic Valve The aortic valve is tricuspid. There is mild thickening of multiple aortic leaflets. There is no evidence of valvular aortic stenosis. There is evidence of trace to mild aortic regurgitation by color and spectral Doppler. The ascending aorta is dilated. (3.9 cm). Pulmonic Valve Pulmonary valve was not well visualized. There is evidence of trace pulmonary regurgitation by color and spectral Doppler. Pericardium There is no evidence of pericardial effusion. There is evidence of epicardial fat. General Findings The image quality was fair (3). Comparison Findings Compared to a prior TTE from 05/27/2021, no important changes. Magalys Hebert NP CV ECHO ORDERABLES Final Result documented in this encounter Visit Diagnoses Diagnosis Heart transplant status Heart transplant status documented in this encounter Additional Health Concerns Assessment Noted Time PHQ-9 Depression Total Score: 1 11/21/19 15 11:24 AM EDT PHQ-2 Depression Total Score: 0 11/30/19 22 9:36 AM EDT documented as of this encounter Care Teams Funeral Driver Relationship Specialty Start Date End Date Dung Chen MD [address] [place] [address] PCP - General 08/21/14 Annita Watson MD [address] [place] [address] Neurosurgery 09/17/19 Carlos Alberto Stanford MD [address] [place] [address] Compliance Consultant Internal Medicine 07/10/23 07/18/24 Han Hopkins MD, MARIA L [address] [place] [address] [email or web address] Interventional Radiology 07/10/23 Dung Chen MD [address] [place] [address] Internal Medicine 07/10/23 Norma Sanchez PA [address] [place] [address] Compliance Consultant Physician Futures Trader 07/18/24 documented as of this encounter Additional Source Comments The information contained in this document represents components of the legal health record. It is not the complete legal health record.[facility]
--- OUTSIDE RECORDS SUMMARY | 2025-03-05 21:13 | XMS_ITS | Encounter Summary ---
Author Organization [facility] Address [address] [place] [phone] Phone Care Team Providers Care Cloth Booker Name Role Phone Dung Chen MD Primary Care Provider [phone]- [phone] Tia Granda NP Unavailable [email or web address] Annita Watson MD Unavailable [phone] Carlos Alberto Stanford MD Unavailable [phone] Han Hopkins MD, MARIA L Unavailable Dung Chen MD Unavailable [phone] Norma Sanchez Unavailable [phone] Encounter Details Date Type Department Care Team (Latest Contact Info) Description 03/08/2017 Transcribe Orders [facility] Cardiovascular Clinic [address] [place] [address] Chuyita Holly [address] [place] [phone] [email or web address] Heart replaced by transplant (Primary Dx) Social [...] st Contact Info) Description 01/21/2025 Procedure Pass [facility] Echocardiography [address] [place] [address] 07/17/2025 10:00 AM EDT Appointment [facility] Echocardiography [address] [place] [address] Annita Holden, ADVANCED PRACTICE NURSE [address] [place] [address] [email or web address] 07/17/2025 11:00 AM EDT Office Visit [facility] Cardiac Transplant [address] [place] [address] Unknown, Unknown, documented as of this encounter Results * Stress Test Exercise with MVO2 (05/04/2017 11:25 AM EST) Anatomical Region Laterality Modality Heart [facility] 05/04/2017 10:0 0 AM EST Narrative 05/05/2017 5:[address] Ghotra, Your patient Tony Thompson, a 66 year old male with known CAD and prior transplant was referred to us for a cardiopulmonary exercise ramp cycle test to assess functional capacity in the context of prior heart transplant. His cardiopulmonary risk factors include dyslipidemia and diabetes. The patient's resting ECG showed sinus tachycardia and right bundle branch block. He was on the following medications at the time of testing: Aspirin, Rosuvastatin, Insulin, Doxazosin, Prograf,gabapentin, Gabapentin, Prendis. Exercise Protocol: Mr. Thompson exercised for 6:27 minutes of a 10-watt/min ramp cycle protocol to a maximum of 64 owusu. Oxygen saturation was measured at rest and stress using a pulse-oximeter. The heart rate increased from 114 bpm at rest to a peak heart rate of 116 bpm (75% age predicted maximal heart rate), and the blood pressure remained unchanged at 132/82 mm Hg (RPP: 20759). Oxygen saturation remained unchanged at 97% during exercise. Exercise was terminated due to leg fatigue. The symptomatic response to exercise was non-ischemic. The blood pressure response was blunted. The heart rate response to exercise was blunted. The ECG response to exercise indicated no significant ST-T changes. No exercise-induced arrhythmia was observed. = ANTHROPOMETRICS = Age: 66 Gender: Male Height: 69 in/175 cm Weight: 199 lb/90 kg BMI: 29.4 kg/m2 Hgb: = EXERCISE CAPACITY = Exercise Protocol: 10 owusu/min Maximum Owusu Achieved: 64 owusu Exercise Duration: 6:27 (min:sec) Reason to End Exercise: Leg fatigue. Predicted Measured % of Predicted Rest VO2 (mL/min) 520 AT VO2 (mL/min) >40% of Peak VO2 1061 50% Peak VO2 (mL/min) 2139 1206 56% Peak VO2/kg(mL/kg/min) 13.4 = CARDIOVASCULAR RESPONSE = Symptomatic Response: Non-ischemic. Blood Pressure Response: Blunted. ECG Response: Indicated no significant ST-T changes. Stress Induced Arrhythmias: No exercise-induced arrhythmia was observed. Predicted Measured % of Predicted Rest Heart Rate (bpm) 114 Peak Heart Rate (bpm) 155 116 75% HR Bend (bpm) 41 HR Recovery (1 min) > 12 -1 Rest Blood Press (mm Hg) 132/82 Peak Blood Press (mm Hg) 132/70 Peak O2 Pulse (mL/beat) 13.8 10.4 75% VO2/WR (mL/min/watt) > 10.2 +/- 1 10.7 HR/VO2 < 50 8.7 Cardiac Output (Qt) 15.3 0% Rest RER 0.72 Peak RER 1.11 Hemodynamic Stage Data: Intensity Heart Blood RPE Speed (Grade Rate Pressure (Scale (MPH) or Owusu) (bmp) (mm Hg) of 10) BASELINE Supine 114 132/82 Sitting 110 126/80 STRESS Stage 1 30 110 126/74 Stage 2 60 114 132/70 Stage 3 64 116 RECOVERY 1 Minute 117 112/70 3 Minute 116 5 Minute 114 102/70 8 Minutes 111 102/70 = VENTILATORY RESPONSE = Measured Percent VE/VCO2 (Kidder) 36.66 VE @ AT 34 VE @ Peak 53.2 = GAS EXCHANGE VARIABLES = Rest Peak SaO2% 97% 97% In summary, the test results were: 1. Functional Capacity: Peak VO2 is 13.4 mL/kg/min (3.8 METS), which is 56% of predicted based on the patient's body weight and sex using the Rajani formula. 2. Anaerobic Threshold: A normal anaerobic threshold was observed. Oscillatory ventilation was observed, which may have affected accurate determination of the anaerobic threshold. 3. Peak Heart Rate: 116 bpm (75% age-predicted maximal heart rate). 4. Symptomatic Response: Non-ischemic based on the absence of cardiac angina or cardiac angina equivalents during exercise. 5. Peak Blood Pressure: 132/70 mm Hg. 6. Blood Pressure Response: Blunted. 7. ECG Response: No ischemic ST segment changes were observed at the achieved exercise workload. 8. Stress-induced Arrhythmia: None. Blunted heart rate response to exercise. 9. VE/VCO2 Kidder: Abnormal VE/VCO2 slope of 36.7 (defined as 35.0 - 40.0). 10. Hypoxemia: No resting or exertional hypoxemia (defined as rest O2 saturation >= 95% and peak O2 saturation >= 93%). CONCLUSION: 1. Exercise effort was adequate based on RER that was at least 1.05 (RER = 1.11). The functional capacity was moderately decreased based on peak VO2 of 13.4 mL/kg/min that was 56% of predicted. 2. The anaerobic threshold was normal. Oscillatory ventilation was observed, which may have affected accurate determination of the anaerobic threshold 3. Abnormal VE/VCO2 slope (36.7). 4. Non-diagnostic test for myocardial ischemia due to failure to achieve > 85% age-predicted maximal heart rate. 5. The blood pressure response to exercise was blunted. 6. The heart rate response to exercise was blunted. Compared to prior MVO2 study dated 04/25/2016, functional capacity is similar (prior peak VO2 was 12.9 mL/kg/min (3.7 METS), which was 60%). However, VE/VCO2 slope has increased from 29.9 to 36.7. Blood pressure response is now blunted (previously normal), resting heart rate remains elevated (previously 99 bpm), and HR response to exercise remains blunted. Results communicated to transplant ALTERATION INSPECTOR on 05/05/2017 at 5:15 pm. Stress ECG tracings available from [facility]'s [employer]. Thank you for referring this patient to us. Sincerely yours, Faisal Perez M.D., Attending Physician Procedure Note Faisal Perez MD, MPH - 05/05/[address] Ghotra, Your patient Tony Thompson, a 66 year old male with known CAD and priortransplant was referred to us for a cardiopulmonary exercise ramp cycletest to assess functional capacity in the context of prior hearttransplant. His cardiopulmonary risk factors include dyslipidemia and diabetes. The patient's resting ECG showed sinus tachycardia and right bundle branchblock. He was on the following medications at the time of testing:Aspirin, Rosuvastatin, Insulin, Doxazosin, Prograf,gabapentin, Gabapentin,Prendis. Exercise Protocol: Mr. Thompson exercised for 6:27 minutes of a 10-watt/min ramp cycle protocolto a maximum of 64 owusu. Oxygen saturation was measured at rest andstress using a pulse- oximeter. The heart rate increased from 114 bpm atrest to a peak heart rate of 116 bpm (75% age predicted maximal heart rate), and the blood pressure remainedunchanged at 132/82 mm Hg (RPP: 48327). Oxygen saturation remainedunchanged at 97% during exercise. Exercise was terminated due to leg fatigue. The symptomatic response toexercise was non-ischemic. The blood pressure response was blunted. Theheart rate response to exercise was blunted. The ECG response to exerciseindicated no significant ST-T changes. No exercise-induced arrhythmia was observed. = ANTHROPOMETRICS = Age: 66 Gender: Male Height: 69 in/175 cm Weight: 199 lb/90 kg BMI: 29.4 kg/m2 Hgb: = EXERCISE CAPACITY = Exercise Protocol: 10 owusu/min Maximum Owusu Achieved: 64 owusu Exercise Duration: 6:27 (min:sec) Reason to End Exercise: Leg fatigue. Predicted Measured % of Predicted Rest VO2 (mL/min) 520 AT VO2 (mL/min) >40% of Peak VO2 1061 50% Peak VO2 (mL/min) 2139 1206 56% Peak VO2/kg(mL/kg/min) 13.4 = CARDIOVASCULAR RESPONSE = Symptomatic Response: Non-ischemic. Blood Pressure Response: Blunted. ECG Response: Indicated no significant ST-T changes. Stress Induced Arrhythmias: No exercise-induced arrhythmia was observed. Predicted Measured % of Predicted Rest Heart Rate (bpm) 114 Peak Heart Rate (bpm) 155 116 75% HR Bend (bpm) 41 HR Recovery (1 min) > 12 -1 Rest Blood Press (mm Hg) 132/82 Peak Blood Press (mm Hg) 132/70 Peak O2 Pulse (mL/beat) 13.8 10.4 75% VO2/WR (mL/min/watt) > 10.2 +/- 1 10.7 HR/VO2 < 50 8.7 Cardiac Output (Qt) 15.3 0% Rest RER 0.72 Peak RER 1.11 Hemodynamic Stage Data: Intensity Heart Blood RPE Speed (Grade Rate Pressure (Scale (MPH) or Owusu) (bmp) (mm Hg) of 10) BASELINE Supine 114 132/82 Sitting 110 126/80 STRESS Stage 1 30 110 126/74 Stage 2 60 114 132/70 Stage 3 64 116 RECOVERY 1 Minute 117 112/70 3 Minute 116 5 Minute 114 102/70 8 Minutes 111 102/70 = VENTILATORY RESPONSE = Measured Percent VE/VCO2 (Kidder) 36.66 VE @ AT 34 VE @ Peak 53.2 = GAS EXCHANGE VARIABLES = Rest Peak SaO2% 97% 97% In summary, the test results were: 1. Functional Capacity: Peak VO2 is 13.4 mL/kg/min (3.8 METS), which is56% of predicted based on the patient's body weight and sex using theWasserman formula. 2. Anaerobic Threshold: A normal anaerobic threshold was observed.Oscillatory ventilation was observed, which may have affected accuratedetermination of the anaerobic threshold. 3. Peak Heart Rate: 116 bpm (75% age-predicted maximal heart rate). 4. Symptomatic Response: Non-ischemic based on the absence of cardiacangina or cardiac angina equivalents during exercise. 5. Peak Blood Pressure: 132/70 mm Hg. 6. Blood Pressure Response: Blunted. 7. ECG Response: No ischemic ST segment changes were observed at theachieved exercise workload. 8. Stress-induced Arrhythmia: None. Blunted heart rate response toexercise. 9. VE/VCO2 Kidder: Abnormal VE/VCO2 slope of 36.7 (defined as 35.0 -40.0). 10. Hypoxemia: No resting or exertional hypoxemia (defined as rest [id number] >= 95% and peak O2 saturation >= 93%). CONCLUSION: 1. Exercise effort was adequate based on RER that was at least 1.05 (RER =1.11). The functional capacity was moderately decreased based on peak VO2of 13.4 mL/kg/min that was 56% of predicted. 2. The anaerobic threshold was normal. Oscillatory ventilation wasobserved, which may have affected accurate determination of the anaerobicthreshold 3. Abnormal VE/VCO2 slope (36.7). 4. Non-diagnostic test for myocardial ischemia due to failure to achieve >85% age-predicted maximal heart rate. 5. The blood pressure response to exercise was blunted. 6. The heart rate response to exercise was blunted. Compared to prior MVO2 study dated 04/25/2016, functional capacity issimilar (prior peak VO2 was 12.9 mL/kg/min (3.7 METS), which was 60%).However, VE/VCO2 slope has increased from 29.9 to 36.7. Blood pressureresponse is now blunted (previously normal), resting heart rate remains elevated (previously 99 bpm), and HR responseto exercise remains blunted. Results communicated to transplant ALTERATION INSPECTOR on 05/05/2017 at 5:15 pm. Stress ECG tracings available from [facility]'s [employer]. Thank you for referring this patient to us. Sincerely yours, Faisal Perez M.D., Attending Physician Gurwinder Ghotra MD, MSc CV STRESS ORDERABLES Fin al Result * TTE COMPREHENSIVE (05/04/2017 9:59 AM EST) Left Ventricle Internal Diameter End Diastole 24 42 - 58 mm Left Ventricle Internal Diameter End Systole 18 25 - 40 mm Raw LV EF% 44 % Ejection Fraction 65 50 - 75 % Left Ventricular Mass 118.29 g Left Ventricle indexed to BSA 56.33 g/mL Relative Wall Thickness 1.20 0.22 - 0.42 Body Surface Area 2.1 m2 Aortic Sinus Diameter 31 mm Aortic Valve Regurgitation Pressure Half Time 426.67 ms Aortic Valve Deceleration Time 1,471.26 ms Aortic Regurgitation Max Velocity 3.26 m/s Tricuspid Valve Peak Gradient 18.52 mmhg Left Atrium Dimension Anterior-Posterior 41 15 - 40 mm Tricuspid Valve Peak Velocity 2.15 m/s Right Ventricle Peak Systolic Pressure 23 mmHg Right Ventricle Estimated PA Pressure 28.52 mmHg Right Atrium Pressure Estimated 5 mmHg Right Ventricle to Right Atrium Pressure Gradient 18 mmHg Height 178 cm Weight 91 kg Ascending Aorta Diameter 37 mm Left Ventricular Posterior Wall Thickness 14 mm Interventricular Septum Thickness 15 mm Aortic Valve Sinus Index 1 15 20 - 32 mm Ascending Aorta Diameter 18 mm Aortic Sinus Index 15 mm Ascending Aorta Index 18 mm Anatomical Region Laterality Modality Heart [facility] Narrative 05/04/2017 10:49 AM EST Left Ventricle The left ventricular cavity size is small. The left ventricular wall thickness is normal. Left ventricular systolic function is normal. The estimated ejection fraction is 65% (Normal 50-75%). The left ventricular ejection fraction was measured by visual estimate. Right Ventricle The right ventricular size is normal. The right ventricular systolic function is normal. Left Atrium The left atrium is dilated. The left atrium is enlarged due to cardiac transplant. Right Atrium The right atrium is normal in size. The IVC is not well visualized. Mitral Valve The mitral valve appears normal. There is no significant mitral regurgitation detected by spectral and color Doppler. Tricuspid Valve The tricuspid valve appears normal. There is evidence of trace tricuspid regurgitation by color and spectral Doppler. The RV systolic pressure was estimated from the peak TV regurgitant velocity. The estimated RV systolic pressure is 23 mmHg (exclusive of right atrial pressure). Aortic Valve The aortic valve is tricuspid. There is no evidence of valvular aortic stenosis. There is evidence of trace to mild aortic regurgitation by color and spectral Doppler. Pulmonic Valve There is evidence of trace to mild pulmonary regurgitation by color and spectral Doppler. Pericardium There is no evidence of pericardial effusion. There is evidence of epicardial fat. General Findings The patient was tachycardic throughout the examination. Comparison Findings Compared to a prior report from 12/29/2016, no important changes. Heart rate 100 - 110s bpm. Gurwinder Ghotra MD, MSc CV ECHO ORDERABLES Final Result documented in this encounter Visit Diagnoses Diagnosis Heart replaced by transplant- Primary Heart replaced by transplant Heart replaced by transplant documented in this [...] was found to be COVID+, transferred to [facility] for further management. Assessment: Recent [...] AM EDT PHQ-2 Depression Total Score: 4 12/30/19 17 8:53 AM EDT documented as of this encounter Care Teams Cloth Booker Relationship Specialty Start Date End Date Dung Chen MD [address] [place] [phone] PCP - General 08/21/14 Tia Granda [email or web address] LMR Provider 08/30/14 02/21/21 Annita Watson MD [address] [place] [phone] Neurosurgery 09/17/19 Carlos Alberto Stanford MD [address] [place] [phone] Client Solutions Director Internal Medicine 07/10/23 07/18/24 Han Hopkins MD, MARIA L [address] [place] [phone] [email or web address] Interventional Radiology 07/10/23 Dung Chen MD [address] [place] [phone] Internal Medicine 07/10/23 Norma Sanchez PA [address] [place] [phone] Client Solutions Director Physician Heat Regulator 07/18/24 documented as of this encounter Additional Source Comments The information contained in this document represents components of the legal health record. It is not the complete legal health record.[facility]
--- OUTSIDE RECORDS SUMMARY | 2025-03-05 21:13 | XMS_ITS | Encounter Summary ---
Author Organization [facility] Address [address] [place] [address] Phone Care Team Providers Care Florist Supplies Salesperson Name Role Phone Dung Chen MD Primary Care Provider [phone] Tia Granda NP Unavailable [email or web address] Annita Watson MD Unavailable [phone] Carlos Alberto Stanford MD Unavailable +[phone] Han Hopkins MD, MARIA L Unavailable Dung Chen MD Unavailable [phone] Norma Sanchez Unavailable [phone] Reason for Referral * MRI/CAT Scan - Closed Specialty Diagnoses / Procedures Referred By Gerardo vidales Referred To Contact Radiology Diagnoses Claudication Procedures MRI Angio Abdomen Chelsey Valdes MD Phone: tel: fax: Referral ID Status Reason Start Date Expiration Date Visits Re quested Visits Authorized [id number] Closed 06/29/2017 06/29/2018 1 1 Encounter Details Date Type Department Care Team (Late st Contact Info) Description 06/29/2017 Transcribe Orders [facility] [address] [place] [address] [place] [address] [email or web address] Claudication (Primary Dx) Social History Tobacco Use Types [...] Contact Info) Description 01/21/2025 Procedure Pass [facility] Echocardiography [address] [place] [address] 07/17/2025 10:00 AM EDT Appointment [facility] Echocardiography [address] [place] [address] Annita Holden, JUKEBOX OPERATOR [address], [place] [id number] [email or web address] 07/17/2025 11:00 AM EDT Office Visit [facility] Cardiac Transplant [address] [place] [address] Unknown, Unknown, documented as of this encounter Results * MRI ANGIO ABDOMEN WITH AND WITHOUT CONTRAST (06/29/2017 12:49 PM EDT) Anatomical Region Laterality Modality Abdomen Magnetic Resonan ce Angiography 06/29/2017 12:4 9 PM EDT Impressions 06/29/2017 9:03 PM EDT 1. Aortoiliac: Abdominal aorta and iliac arteries are normal in caliber. 2. Right Leg Arterial: Moderate stenosis of the distal superficial femoral artery. Severe stenosis of below knee popliteal artery. Diffuse irregular disease with areas of mild stenosis in anterior tibial and posterior tibial arteries. The tibioperoneal trunk and peroneal arteries are patent. There is three-vessel runoff. 3. Left Leg Arterial: Severe stenosis of above-knee popliteal artery. Severe stenosis at the ostium of the anterior tibial artery. Tibioperoneal trunk, peroneal artery and posterior tibial artery are patent. There is three-vessel runoff. 4. Veins: All visualized veins from the IVC through the calf veins appear patent. Critical results were communicated and documented using the Alert Notification of Critical Radiology Results (ANCR) system. I, the teaching physician, have reviewed the images and agree with the report as written. Narrative 06/29/2017 9:03 PM EDT Reason for exam (per EHR order): ;- PERIPHERAL ARTERIAL DISEASE (PAD) [KNOWN DX]; TECHNIQUE: 3.0 Christina MR Scanner. Multiplanar, multisequence MRA / MRV of the abdomen, pelvis and lower extremities was obtained prior to and following 35 mL IV gadolinium contrast. 3D angiographic post processing was performed in the form of 3D volume rendering and multiplanar reformations on a separate workstation. COMPARISON: None. FINDINGS: VASCULAR: ARTERIAL: The abdominal aorta appears normal in caliber and contour. No dissection, intramural hematoma or perivascular inflammation seen. Celiac: Normal Superior mesenteric artery: Normal Inferior mesenteric artery: Normal Renals: Normal MULTIPLANAR REFORMATION AND VOLUME RENDERING: Measurements are as follows (largest diameter short axis to the centerline): Proximal abdominal aorta: 2.6 cm Juxtarenal aorta: 1.6 cm Infrarenal aorta: 1.8 cm Right Common iliac: 1.1 cm Left Common iliac: 1.1 cm RIGHT LEG: Common iliac artery: Patent Internal iliac artery: Patent External iliac artery: Patent Common femoral artery: Mild stenosis Superficial femoral artery: Moderate stenosis of the distal superficial femoral artery Profunda femoris artery: Mild stenosis Fzstw-sjb-obwz popliteal artery: Moderate stenosis Numzm-qwz-zyyj popliteal artery: Severe stenosis of the proximal vessel. Anterior tibial artery: Diffuse irregular disease with areas of mild stenosis. Tibioperoneal trunk: Patent Peroneal artery: Patent Posterior tibial artery: Irregular disease with areas of mild stenosis LEFT LEG: Common iliac artery: Patent Internal iliac artery: Patent External iliac artery: Patent Common femoral artery: Patent Superficial femoral artery: Patent Profunda femoris artery: Patent Xohji-bts-ipgc popliteal artery: Severe stenosis Xjrnf-uli-hzcw popliteal artery: Patent Anterior tibial artery: Severe stenosis of the ostium Tibioperoneal trunk: Patent Peroneal artery: Patent Posterior tibial artery: Patent VEINS: All visualized veins from the IVC through the calf veins appear patent. ABDOMEN: There is a 1.7 cm low signal area within the spleen with peripheral nodular enhancement, likely hemangioma. Remainder of the solid abdominal viscera appears unremarkable. PELVIS: No free fluid in the pelvis. No pelvic lymphadenopathy. Procedure Note Elbert Rasmussen MD - 06/29/2017 Reason for exam (per EHR order): ;- PERIPHERAL ARTERIAL DISEASE (PAD) [KNOWN DX]; TECHNIQUE: 3.0 Christina MR Scanner. Multiplanar, multisequence MRA / MRV of the abdomen, pelvis and lower extremities was obtained prior to and following 35 mL IV gadolinium contrast. 3D angiographic post processing was performed in the form of 3D volume rendering and multiplanar reformations on a separate workstation. COMPARISON: None. FINDINGS: VASCULAR: ARTERIAL: The abdominal aorta appears normal in caliber and contour. No dissection, intramural hematoma or perivascular inflammation seen. Celiac: Normal Superior mesenteric artery: Normal Inferior mesenteric artery: Normal Renals: Normal MULTIPLANAR REFORMATION AND VOLUME RENDERING: Measurements are as follows (largest diameter short axis to the centerline): Proximal abdominal aorta: 2.6 cm Juxtarenal aorta: 1.6 cm Infrarenal aorta: 1.8 cm Right Common iliac: 1.1 cm Left Common iliac: 1.1 cm RIGHT LEG: Common iliac artery: Patent Internal iliac artery: Patent External iliac artery: Patent Common femoral artery: Mild stenosis Superficial femoral artery: Moderate stenosis of the distal superficial femoral artery Profunda femoris artery: Mild stenosis Fzaco-oui-vsdk popliteal artery: Moderate stenosis Ueild-zly-ijti popliteal artery: Severe stenosis of the proximal vessel. Anterior tibial artery: Diffuse irregular disease with areas of mild stenosis. Tibioperoneal trunk: Patent Peroneal artery: Patent Posterior tibial artery: Irregular disease with areas of mild stenosis LEFT LEG: Common iliac artery: Patent Internal iliac artery: Patent External iliac artery: Patent Common femoral artery: Patent Superficial femoral artery: Patent Profunda femoris artery: Patent Jsghh-ofi-ksep popliteal artery: Severe stenosis Zaozv-chw-bypj popliteal artery: Patent Anterior tibial artery: Severe stenosis of the ostium Tibioperoneal trunk: Patent Peroneal artery: Patent Posterior tibial artery: Patent VEINS: All visualized veins from the IVC through the calf veins appear patent. ABDOMEN: There is a 1.7 cm low signal area within the spleen with peripheral nodular enhancement, likely hemangioma. Remainder of the solid abdominal viscera appears unremarkable. PELVIS: No free fluid in the pelvis. No pelvic lymphadenopathy. IMPRESSION: 1. Aortoiliac: Abdominal aorta and iliac arteries are normal in caliber. 2. Right Leg Arterial: Moderate stenosis of the distal superficial femoral artery. Severe stenosis of below knee popliteal artery. Diffuse irregular disease with areas of mild stenosis in anterior tibial and posterior tibial arteries. The tibioperoneal trunk and peroneal arteries are patent. There is three-vessel runoff. 3. Left Leg Arterial: Severe stenosis of above-knee popliteal artery. Severe stenosis at the ostium of the anterior tibial artery. Tibioperoneal trunk, peroneal artery and posterior tibial artery are patent. There is three-vessel runoff. 4. Veins: All visualized veins from the IVC through the calf veins appear patent. Critical results were communicated and documented using the Alert Notification of Critical Radiology Results (ANCR) system. I, the teaching physician, have reviewed the images and agree with the report as written. us Chelsey Valdes MD IMG MR ABDOMEN Final Res ult documented in this encounter Visit Diagnoses Diagnosis Claudication- Primary Unspecified peripheral vascular disease Claudication Unspecified peripheral vascular disease documented in this encounter Additional Health Concerns [...] found to be COVID+, transferred to [facility] for further management. Assessment: Recent swabs [...] documented as of this encounter Care Teams Florist Supplies Salesperson Relationship Specialty Start Date End Date Dung Cehn MD [address] [place] [address] PCP - General 08/21/14 Tia Granda NP [email or web address] Historical LMR Provider 08/30/14 02/21/21 Annita Watson MD [address] [place] [address] Neurosurgery 09/17/19 Carlos Alberto Stanford MD [address] [place] [address] Agricultural Engineering Teacher Internal Medicine 07/10/23 07/18/24 Han Hopkins MD, MARIA L [address] [place] [address] Interventional Radiology 07/10/23 Dung Chen MD [address] [place] [address] Internal Medicine 07/10/23 Norma Sanchez PA [address] [place] [address] Agricultural Engineering Teacher Physician Net Wpf Developer 4/3/25 documented as of this encounter Additional Source Comments The information contained in this document represents components of the legal health record. It is not the complete legal health record.[facility]
--- OUTSIDE RECORDS SUMMARY | 2025-03-05 21:13 | XMS_ITS | Encounter Summary ---
Author Organization [facility] Address [address] [place] [address] Phone Care Team Providers Care Credit Collections Manager Name Role Phone Dung Cehn MD Primary Care Provider [phone] Tia Granda NP Unavailable [email or web address] Annita Watson MD Unavailable [phone] Carlos Alberto Stanford MD Unavailable [phone] Han Hopkins MD, MARIA L Unavailable Dung Chen MD Unavailable [phone] Norma Sanchez Unavailable [phone] Reason for Referral * Consultation (Within 2 weeks) - Closed Specialty Diagnoses / Procedures Referred By Gerardo t Referred To Contact Cardiology Diagnoses Claudication Neuropathy Magalys Hebert NP Phone: tel: fax: mailto:[email or web address] [address] [place] [address] Phone: tel: Referral ID Status Reason Start Date Expiration Date Visits Re quested Visits Authorized [id number] Closed 06/08/2017 06/08/2018 1 1 Encounter Details Date Type Department Care Team (Latest Contact Info) Description 06/08/2017 Transcribe Orders [facility] Cardiovascular Clinic [address] [place] [address] HollyChuyita villanueva [address] [place] [address] [email or web address] Claudication (Primary Dx); Neuropathy Social History Tobacco Use Types Packs/Day Years [...] st Contact Info) Description 01/21/2025 Procedure Pass [facility] Echocardiography [address] [place] [address] 07/17/2025 10:00 AM EDT Appointment [facility] Echocardiography [address] [place] [id number] Annita Holden, MEDICAL DIRECTOR OF HOSPICE [address] [place] [address] [email or web address] 07/17/2025 11:00 AM EDT Office Visit [facility] Cardiac Transplant [address] [place] [address] Unknown, Unknown, Scheduled Referrals Name Type Priority Associated Diagnoses Order Schedule Ambulatory referral to [facility] Cardiology Outpatient Referral Routine Claudication Neuropathy Ordered: 06/08/2017 documented as of this encounter Visit Diagnoses Diagnosis Claudication- Primary Unspecified peripheral vascular disease Neuropathy Mononeuritis of unspecified site documented in this encounter Additional Health Concerns [...] was found to be COVID+, transferred to [facility] for further management. Assessment: Recent [...] documented as of this encounter Care Teams Credit Collections Manager Relationship Specialty Start Date End Date Dung Chen MD [address] [place] [address] PCP - General 08/21/14 Tia Granda NP [email or web address] Historical LMR Provider 08/30/14 02/21/21 Annita Watson MD [address] [place] [address] Neurosurgery 09/17/19 Carlos Alberto Stanford MD [address] [place] [address] Therapy Aide Internal Medicine 07/10/23 07/18/24 Han Hopkins MD, MARIA L [address] [place] [address] [email or web address] Interventional Radiology 07/10/23 Dung Chen MD [address] [place] [address] Internal Medicine 07/10/23 Norma Sanchez PA [facility] [address] [address] Therapy Aide Physician Roustabout Crew Pusher 07/18/24 documented as of this encounter Additional Source Comments The information contained in this document represents components of the legal health record. It is not the complete legal health record.[facility]
--- OUTSIDE RECORDS SUMMARY | 2025-03-05 21:13 | XMS_ITS | Encounter Summary ---
Author Organization [facility] Address [address] [address] Phone Care Team Providers Care Weight Loss Physician Name Role Phone Dung Chen MD Primary Care Provider [phone] Annita Watson MD Unavailable [phone] Han Hopkins MD, MARIA L Unavailable Dung Chen MD Unavailable [phone] Norma Sanchez Unavailable [phone] Encounter Details Date Type Department Care Team (Late st Contact Info) Description 03/04/2025 Orders Only [facility] Cardiac Transplant [address] [place] [address] Shayy Gottlieb, KELVIN [address] [place] [address] [email or web address] Heart replaced by transplant (Primary Dx) Social [...] Procedure Pass [facility] Echocardiography [address] [place] [address] 07/17/2025 10:00 AM EDT Appointment [facility] Echocardiography [address] [place] [address] Annita Holden, MEDICAL COORDINATOR PESTICIDE USE [address] [place] [address] [email or web address] 07/17/2025 11:00 AM EDT Office Visit [facility] Cardiac Transplant [address] [place] [address] Unknown, Unknown, Scheduled Orders Name Type Priority Associated Diagnoses Orde r Schedule Basic Metabolic Panel (BMP) Lab Routine Heart replaced by transplant Expected: 03/11/2025, Expires: 06/04/2025 Tacrolimus Level Lab Routine Heart replaced by transplant Expected: 03/18/2025, Expires: 06/04/2025 documented as of this encounter Visit Diagnoses Diagnosis Heart replaced by transplant- Primary documented in this encounter Additional Health Concerns Assessment Noted Time PHQ-9 Depression Total Score: 1 11/21/19 15 11:24 AM EDT PHQ-2 Depression Total Score: 0 11/30/19 22 9:36 AM EDT documented as of this encounter Care Teams Weight Loss Physician Relationship Specialty Start Date End Date Dung Chen MD [address] [place] [address] PCP - General 08/21/14 Annita Watson MD [address] [place] [address] Neurosurgery 09/17/19 Han Hopkins MD, MARIA L [address] [place] [address] [email or web address] Interventional Radiology 07/10/23 Dung Chen MD [address] [place] [address] Internal Medicine 07/10/[address] [facility] [address] [address] Metal Washing Machine Operator Physician Tuber Operator 07/18/24 documented as of this encounter Additional Source Comments The information contained in this document represents components of the legal health record. It is not the complete legal health record.[facility]
--- OUTSIDE RECORDS SUMMARY | 2025-03-05 21:13 | XMS_ITS | Encounter Summary ---
Author Organization [facility] Address [address] [place] [address] Phone Care Team Providers Care Ladle Puller Name Role Phone Dung Chen MD Primary Care Provider [phone]- [phone] Tia Granda NP Unavailable [email or web address] Annita Watson MD Unavailable [phone] Carlos Alberto Stanford MD Unavailable [phone] Han Hopkins MD, MARIA L Unavailable Dung Chen MD Unavailable [phone] Norma Sanchez Unavailable [phone] Encounter Details Date Type Department Care Team (Late st Contact Info) Description 06/29/2017 Procedure Pass [facility] [address] [place] [address] Social History Tobacco Use Types Packs/Day Years [...] st Contact Info) Description 01/21/2025 Procedure Pass [facility] Echocardiography [address] [place] [address] 07/17/2025 10:00 AM EDT Appointment [facility] Echocardiography [address] [place] [address] Annita Holden, MANAGER PRODUCT SUPPORT [address] [place], [place] [phone] [email or web address] 07/17/2025 11:00 AM EDT Office Visit [facility] Cardiac Transplant [address] [place] [address] Unknown, MD Jeaneth documented as of this [...] was found to be COVID+, transferred to [facility] for further management. Assessment: Recent [...] documented as of this encounter Care Teams Ladle Puller Relationship Specialty Start Date End Date Dung Chen MD [address] [place] [address] PCP - General 08/21/14 Tia Granda NP [email or web address] Historical LMR Provider 08/30/14 02/21/21 Annita Watson MD [address] [place] [address] Neurosurgery 09/17/19 Carlos Alberto Stanford MD [address] [place] [address] Flow Nurse Internal Medicine 07/10/23 07/18/24 Han Hopkins MD, MARIA L [address] [place] [address] Interventional Radiology 07/10/23 Dung Chen MD [address] [place] [address] Internal Medicine 07/10/23 Norma Sanchez PA [address] [place] [address] Flow Nurse Physician Independent Living Instructor 07/18/24 documented as of this encounter Additional Source Comments The information contained in this document represents components of the legal health record. It is not the complete legal health record.[facility]
--- OUTSIDE RECORDS SUMMARY | 2025-03-05 21:13 | XMS_ITS | Encounter Summary ---
Author Organization [facility] Address [address] [place] [address] Phone Care Team Providers Care Public Health Teacher Name Role Phone Dung Chen MD Primary Care Provider +- [phone] Tia Granda NP Unavailable [email or web address] Annita Watson MD Unavailable [phone] Carlos Alberto Stanford MD Unavailable [phone] Han Hopkins MD, MARIA L Unavailable Dung Chen MD Unavailable [phone] Norma Sanchez Unavailable [phone] Encounter Details Date Type Department Care Team (Late st Contact Info) Description 07/26/2017 Procedure Pass [facility] Cardiac Vice President Of Talent Management [address] [place] [address] Social History Tobacco Use Types Packs/Day Years [...] st Contact Info) Description 01/21/2025 Procedure Pass [facility] Echocardiography [address] [place] [address] 07/17/2025 10:00 AM EDT Appointment [facility] Echocardiography [address] [place] [address] Annita Holden, FISH SMOKER [address] [place] [address] [email or web address] 07/17/2025 11:00 AM EDT Office Visit [facility] Cardiac Transplant [address] [place] [address] Unknown, Unknown, MD documented as of this [...] was found to be COVID+, transferred to [facility] for further management. Assessment: Recent [...] documented as of this encounter Care Teams Public Health Teacher Relationship Specialty Start Date End Date Dung Chen MD [address] [place] [address] PCP - General 08/21/14 Tia Granda NP [email or web address] Historical LMR Provider 08/30/14 02/21/21 Annita Watson MD [address] [place] [address] Neurosurgery 09/17/19 Carlos Alberto Stanford MD [address] [place] [address] Community Specialist Internal Medicine 07/10/23 07/18/24 Han Hopkins MD, MARIA L [address] [place] [address] [email or web address] Interventional Radiology 07/10/23 Dung Chen MD [address] [place] [address] Internal Medicine 07/10/23 Norma Sanchez PA [address] [place] [address] Community Specialist Physician Data Entry Specialist 07/18/24 documented as of this encounter Additional Source Comments The information contained in this document represents components of the legal health record. It is not the complete legal health record.[facility]
--- OUTSIDE RECORDS SUMMARY | 2025-03-05 21:13 | XMS_ITS | Clinical Summary ---
Author Organization [facility] Address [address] [place] [phone] Phone Care Team Providers Care Director Market Intelligence Name Role Phone Dung Chen MD Primary Care Provider [phone] Annita Watson MD Unavailable [phone] Han Hopkins MD, MARIA L Unavailable Dung Chen MD Unavailable [phone] Norma Sanchez Unavailable [phone] Allergies Active Allergy Reactions Criticality Noted Date Comments Lisinopril Cough Low 06/04/2015 Medications pantoprazole (PROTONIX) 40 MG tablet Take 40 mg by mouth daily. Active insulin degludec U-200 (TRESIBA FLEXTOUCH) 200 unit/mL (3 mL) InPn injection pen Inject 4 Units under the skin 2 (two) times a day (once in the morning and once in the afternoon). Active traZODone (DESYREL) 100 MG tablet Take 200 mg by mouth nightly at bedtime. 09/28/19 22 Active amLODIPine (NORVASC) 10 MG tablet Take 5 mg by mouth daily. 11/07/19 23 Active DULoxetine (CYMBALTA) 20 MG capsuleIndications: Diabetic polyneuropathy associated with type 2 diabetes mellitus TAKE 2 CAPSULES BY MOUTH DAILY 60 capsule 11 01/04/20 23 Active dulaglutide (TRULICITY) 4.5 mg/0.5 mL subcutaneous injection Inject 4.5 mg under the skin every 7 days. 05/09/19 24 Active clopidogrel (PLAVIX) 75 mg tablet Take 75 mg by mouth daily. 06/29/19 24 Active aspirin 81 MG EC tablet Take 81 mg by mouth daily. Active cholecalciferol, vitamin D3, (VITAMIN D3) 25 mcg (1,000 unit) capsule Take 2,000 Units by mouth daily. 60 capsule 11 01/11/20 24 Active mycophenolate sodium (MYFORTIC) [address] tabletIndications:S tatus post heart transplantation TAKE 1 TABLET BY MOUTH TWICE A DAY 180 tablet 3 05/16/19 25 Active carvedilol (COREG) 3.125 MG tablet Take 3.125 mg by mouth 2 (two) times a day with meals. Started by pcp in fall 2023 Active gabapentin (NEURONTIN) 100 MG capsule Take 6 capsules (600 mg total) by mouth 3 (three) times a day. 07/19/19 25 Active insulin lispro U-200 (HUMALOG KWIKPEN) 200 unit/mL (3 mL) InPn subcutaneous pen Inject 0-30 Units under the skin 3 (three) times a day. Sliding scale only per InPen instructions - managed by Endo 07/19/19 25 Active rosuvastatin (CRESTOR) 20 MG tabletIndications:H ypercholesterolemia ,Status post heart transplantation TAKE 1 TABLET BY MOUTH IN THE EVENING 90 tablet 3 07/23/19 25 Active predniSONE (DELTASONE) 5 MG tablet TAKE 1 TABLET BY MOUTH DAILY 90 tablet 3 11/29/19 25 Active OZEMPIC 0.25 mg or 0.5 mg (2 mg/3 mL) subcutaneous injection pen Inject 0.5 mg under the skin every 7 days. 09/16/19 25 Active carvedilol (COREG) 6.25 MG tabletIndications:H eart replaced by transplant Take 1 tablet (6.25 mg total) by mouth 2 (two) times a day with meals. 60 tablet 11 01/18/20 25 Active valsartan (DIOVAN) 160 MG tabletIndications:S tatus post heart transplantation Take 1 tablet (160 mg total) by mouth daily. 30 tablet 11 01/21/20 25 Active tacrolimus (PROGRAF) 1 MG capsuleIndications: Status post heart transplantation Take 2 capsules (2 mg total) by mouth 2 (two) times a day. 120 capsule 11 01/21/20 25 Active Active Problems Problem Noted Date Diagnosed Date Immunosuppression 07/21/2024 COVID-19 06/23/2021 Tuberculosis 12/14/2017 Peripheral arterial disease 08/28/2017 Status post orthotopic heart transplant 05/05/19 18 Obesity 12/10/2015 Hyperthyroidism 12/10/2015 Tremor 12/10/2015 Spinal stenosis, lumbar deep on, without neurogenic claudication 06/12/2015 Status post heart transplantation 11/21/2014 Assessment & Plan (05/05/2017 7:33 PM EST): S/p OHT 4 years ago. Came today for routine annual evaluation with coronary angiogram via LFA and RHC with biopsy via LIJ Patient began to ambulate postprocedure and developed a hematoma at left femoral artery access site. Compressed with good result -admit to [facility] cath service -6 hours bedrest with groin checks initially q 15 minutes then with vitals -tele overnight -continue all home medications. 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 Overview (06/07/2014): Transplanted organ rejection; 2R rejection s/p ATG 150 mg 04/26/13 (received ~75mg d/t infusion reaction, tolerated subsequent doses with slow infusion rate) and 100 mg 04/27- Uncoded CMV status 04/22/2013 Overview (06/07/2014): CMV status; D-/R- Uncoded Clostridium difficile 01/16/2013 Overview (06/07/2014): Clostridium difficile Uncoded Listed for Cardiac Transplant 03/20/12 Overview (06/07/2014): Listed for Cardiac Transplant 03/20/12 Status post coronary artery bypass graft 013 Overview (06/07/2014): S/P Coronary artery bypass graft; CABG X3 in 1988 Uncoded 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 Overview (06/07/2014): S/P Heartmate 2 LVAD; IMPLANTED ON 01/27/2012 BTT Ischemic cardiomyopathy 05/31/2012 Overview (06/07/2014): Ischemic Cardiomyopathy Hypercholesterolemia 05/31/2012 Overview (06/07/2014): Hypercholesterolemia Uncoded S/P Automatic defibrillator procedure Overview (06/07/2014): S/P Automatic defibrillator procedure; s/p SENIOR SQL DEVELOPER-D [address] [facility] Diabetes mellitus 02/21/2012 Overview (06/07/2014): Diabetes mellitus; *See attached note in LMR Diabetic neuropathy 02/21/2012 Overview (06/07/2014): Diabetic neuropathy Encounters Date Type Department Care Team Description 03/04/2025 Orders Only [facility] Cardiac Transplant [address] [place] [address] Shayy Gottlieb RN Heart replaced by transplant (Primary Dx) 01/21/2025 Orders Only [facility] Cardiac Transplant [address] [place] [address] Lien Lomeli CNP Heart replaced by transplant (Primary Dx) 01/21/2025 Telephone [facility] Cardiac Transplant [address] [place] [address] Annita Holden CNP Appointment 01/21/2025 Orders Only [facility] Cardiac Transplant [address] [place] [address] Annita Holden CNP Heart replaced by transplant (Primary Dx); Heart transplant status 01/20/2025 Refill [facility] Cardiac Transplant [address] [place] [address] Nena Ocampo, package crimper Refill 01/20/2025 Refill [facility] Cardiac Transplant [address] [place] [address] Nena Ocampo, package crimper Refill 01/17/2025 Refill [facility] Cardiac Transplant [address] [place] [address] Nena Ocampo, package crimper Refill 01/17/2025 Orders Only [facility] Cardiovascular Clinic [address] [place] [address] Kraig Barajas MD 01/16/2025 1:12 PM EDT - 01/16/2025 11:59 PM EDT Hospital Encounter [facility] Lab Main [address] [place] [address] Discharge Disposition: Home or Self Care 01/16/2025 11:45 AM EDT - 01/16/2025 1:11 PM EDT Hospital Encounter [facility] Phleb Main [address] [place] [address] Abraham Witt MD Discharge Disposition: Home or Self Care 01/16/2025 10:30 AM EDT Office Visit [facility] Cardiac Transplant [address] [place] [address] Abraham Witt MD Desai, Akshay S, MD, MPH Status post heart transplantation (Primary Dx); Cardiac dysrhythmia; Type 2 diabetes mellitus with diabetic neuropathy, with long-term current use of insulin; Diabetic polyneuropathy associated with type 2 diabetes mellitus 01/16/2025 Telephone [facility] Cardiac Transplant [address] [place] [address] Nena Ocampo, KELVIN 01/15/2025 Orders Only [facility] Cardiovascular Clinic [address] [place] [address] Adriel Rivera MD, MPH 01/14/2025 Telephone [facility] Cardiac Transplant [address] [place] [address] Lien Lomeli CNP 01/14/2025 Orders Only [facility] Cardiac Transplant [address] [place] [address] Nena Ocampo, building cleaner replaced by transplant (Primary Dx); Heart failure, unspecified HF chronicity, unspecified heart failure type 12/27/2024 Telephone [facility] Cardiac Transplant [address] [place] [address] Shayy Gottlieb RN 12/20/2024 Telephone [facility] Cardiac Transplant [address] [place] [address] Diana Loyola, KELVIN Sivan/Provider to provider 12/19/2024 Telephone [facility] Cardiac Transplant [address] [place] [address] Diana Loyola, RN from Last 3 Months Immunizations Immunization Administration Dates Next Due COVID-19 (Pre-02/06) Pfizer Vaccine, mRNA, PF 06/13/2020,05/17/2020 Hepatitis A, Adult 03/27/2012 Hepatitis B Adult 03/27/2012 INFLUENZA, SPLIT VIRUS, TRIVALENT PF ,02/13/2018,03/02/2017,03/01,02/03/2015 INFLUENZA, SPLIT VIRUS, TRIV ALENT W/ PRESERVATIVE IM 01/13/2020,01/14/2016,12/31/2014,02/12,01/24/2014,03/27/2012,05/04/2011 ,01/22/2010,01/17/2010,02/21/2008,11/2006,03/07/2006 Influenza High-Dose Quadriva lent Preservative Free IM 02/02/2022 Influenza High-Dose Trivalen t Preservative Free IM 02/06/2019 Influenza Quadrivalent Adjuv anted Preservative Free IM 01/07/2021 Influenza Recombinant Adriana valent Preservative Free IM 01/13/2020 Influenza, Unspecified Formulation 02/04/2013, Influenza, whole 01/24/2006,02/17/2005 Pneumococcal polysaccharide PPSV23 01/31(Deferred: Other),08/10/2012(Deferred: Other),01/24/2012,08/16/2011(Deferred: Other),07/14/2004,03/02/2004 Td, unspecified formulation 08/31/2004 Tdap 03/27/2012 Family History Medical History Relation Comments Coronary artery disease Father Coronary arteriosclerosis Hypertension Mother Hypertensive dis order Relation Status Comments Father Mother Social History Tobacco Use Types Packs/Day Years Used Date Smoking Tobacco: Former Cigarettes Q uit: 08/30/1997 Smokeless Tobacco: Never Tobacco Cessation:Counseling Given: Not Answered Alcohol Use Standard Drinks/Week Comments No 0 [...] on file Sexual Orientation Not on file Last Filed Vital Signs Vital Sign Reading Time Taken Comments Blood Pressure 120/62 01/16/2025 11:02 AM EDT Pulse 83 01/16/2025 11:02 AM EDT Temperature 36.5 C (97.7 F) 01/10/2022 8:52 AM EDT Respiratory Rate 16 01/10/2022 8:52 AM EDT Oxygen Saturation 99% 01/16/2025 11:02 AM EDT Inhaled Oxygen Concentration - - Weight 91.3 kg (201 lb 4.8 oz) 01/16/2025 11:02 AM EDT Height 172.7 cm (5' 8 ) 04/04/2022 2:06 PM EST Body Mass Index 30.61 04/04/2022 2:06 PM EST Plan of Treatment Upcoming Encounters Date Type Department Care Team (Late st Contact Info) Description 01/21/2025 Procedure Pass [facility] Echocardiography [address] [place] [address] 07/17/2025 10:00 AM EDT Appointment [facility] Echocardiography [address] [place] [address] Annita Holden, IRON [address] [place] [address] [email or web address] 07/17/2025 11:00 AM EDT Office Visit [facility] Cardiac Transplant [address] [place] [address] Unknown, Unknown, Health Maintenance Due Date Last Done Comments PARAM 09/30/1996 FIT TEST 09/30/1996 FOBT 09/30/1996 SIGMOIDOSCOPY 09/30/1996 VIRTUAL COLONOSCOPY 09/30/1996 DIABETIC EYE EXAM 06/26/2014 06/26/2013, , 07/22/2010, Additional history exists COLONOSCOPY 12/27/2021 12/28/2011 COLORECTAL CANCER SCREENING 12/27/2021 DEPRESSION SCREENING 11/29/2022 11/29/2021, 11/21/19 15 INFLUENZA VACCINE (#1) 2024 , 02/06/2023, 02/02/2022, Additional history exists COVID-19 VACCINE ( season) 2024 01/12/2024, 02/06/2023, 04/15/2022, Additional history exists HEMOGLOBIN A1C 01/17/2025 07/18/2024, 06/16, 06/13/2022, Additional history exists BLOOD PRESSURE 07/17/2025 01/16/2025 CREATININE LEVEL 01/16/2026 01/16/2025, 03/2025, 07/29/2024, Additional history exists POTASSIUM LEVEL 01/16/2026 01/16/2025, 12/16, 07/29/2024, Additional history exists SMOKING Hx and SMOKELESS TOBACCO SCREENING 01/16/2026 01/16/2025 Adult Td,Tdap Booster 12/08/2032 12/08/2022 , 03/27/2012, 08/31/2004 HEPATITIS C SCREENING Completed 08/15/2011 HEPATITIS A VACCINES Aged Out 03/27/2012 No long er eligible based on patient's age to complete this topic ABDOMINAL AORTIC ANEURYSM (AAA) SCREENING Completed 06/23/2021, 06/26/2018, 06/29/2017 PNEUMOCOCCAL VACCINES (50+ years) Completed 12/08/2022, 01/24/2012, 07/14/2004, Additional history exists RSV VACCINE Completed 03/22/2023 ZOSTER VACCINES Completed 11/04/2024, 02/02/2024 HIB VACCINES Aged Out No longer eligi ble based on patient's age to complete this topic IPV VACCINES Aged Out No longer eligi ble based on patient's age to complete this topic MENINGOCOCCAL VACCINES (ACWY) Aged Out No longer eligible based on patient's age to complete this topic MENINGOCOCCAL VACCINES (B) Aged Out N o longer eligible based on patient's age to complete this topic Medical Devices Implanted Type Area Stockroom Attendant Device Identifier Shelf Expiration Date Model / Serial / Lot Device Vascular Sealing 6fr - Order In Qty Of 10 Only - Angioseal Vip Plus Bx/10 - Minimum Order Of 10 Each - [id number] Implanted:Qty : 1 on 04/26/2016 by Joseph Vines MD, PhD at [facility] Closure Device [employer] 11/13/2016 [id number] / [id number] / [id number] Device Vascular Sealing 6fr - Order In Qty Of 10 Only - Angioseal Vip Plus Bx/10 - Minimum Order Of 10 Each - [id number] Implanted:Qty : 1 on 03/20/2018 by Vlad Keith MD at [facility] Closure Device Arterial [employer] [id number] 12/15/2018 [id number] / / [id number] Device Vascular Sealing 6fr Order In Qty Of 10 OnlyAngiose al Vip Plus Bx/10 Invoiced By The Each Sold In Increments Of 10 - [id number] Implanted:Qty : 1 on 04/21/2015 by Carlos Iverson MD at [facility] STANDARD [employer] [id number] 12/16/2015 [id number] / / [id number] Stent Self-Expandin g Protege Everflex .035in [id number] 120cm - [id number] Implanted:Qty : 1 on 07/19/2018 by Chelsey Valdes MD at [facility] [employer] [id number] 11/16/2020 [id number] / / [id number] Procedures Procedure Name Priority Date/Time Associated Diagnosis Comments TACROLIMUS LEVEL Routine 01/16/2025 11:4 8 AM EDT NT-PROBNP Routine 01/16/2025 11:48 AM EDT MAGNESIUM Routine 01/16/2025 11:48 AM EDT CBC AND DIFFERENTIAL Routine 01/16/2025 11:48 AM EDT BASIC METABOLIC PANEL (BMP) Routine 01/16/2025 11:48 AM EDT ECG 12-LEAD Routine 01/16/2025 10:59 AM EDT Cardiac dysrhythmia MAGNESIUM Routine 12/27/2024 9:02 AM EDT Heart transplant status TACROLIMUS LEVEL Routine 12/27/2024 9:02 AM EDT Heart transplant status COMPREHENSIVE METABOLIC PANEL (CMP) Routine 12/27/2024 9:02 AM EDT Heart transplant status HEMOGLOBIN A1C Routine 07/18/2024 9:11 AM EDT Status post heart transplantation H/O: endocrine disorder CT ABDOMEN/PELVIS WITH CONTRAST Routine 06/23/2021 6:19 PM EST ENDOSCOPY, COLON 12/28/2011 1:21 PM EDT HISTORICAL LAB Routine 08/15/2011 6:19 PM EDT from Last 3 Months or Most Recently Relevant to Health Maintenance Results * Tacrolimus level (01/16/2025 11:48 AM EDT) Only the most recent of2 resultswithin the time period is included. TACROLIMUS 4.0 3.0 - 15.0 ng/mL [facility] Comment:REFERENCE RANGE IS V ARIABLE AND DEPENDS ON CLINICAL INDICATION. CONTACT TRANSPLANT TEAM OR PHARMACY WITH ANY QUESTIONS. THIS TEST AND ITS PERFORMANCE CHARACTERISTICS WERE DETERMINED BY THE CLINICAL CHEMISTRY LAB, [facility]. IT HAS NOT BEEN CLEARED OR APPROVED BY THE U.S. FDA, WHICH HAS DETERMINED THAT SUCH CLEARANCE OR APPROVAL IS NOT NECESSARY. 01/16/2025 11:4 8 AM EDT 01/16/2025 1:12 PM EDT us Adriel Rivera MD, MPH LAB BLOOD BKR ORDERABLES Final Result [facility] [address] [place] [phone] * (ABNORMAL) CBC and differential (01/16/2025 11:48 AM EDT) WBC 7.51 4.00 - 11.00 K/uL [facility] RBC 3.78(L) 4.50 - 5.90 M/uL [facility] HGB 10.5(L) 13.5 - 17.5 g/dL [facility] HCT 33.5(L) 41.0 - 53.0 % [facility] PLT 124(L) 150 - 450 K/uL [facility] MCV 88.6 80.0 - 100.0 fL [facility] MCH 27.8 27.0 - 31.0 pg [facility] MCHC 31.3(L) 32.0 - 36.0 g/dL [facility] RDW 15.9(H) 11.5 - 14.5 % [facility] MPV 9.1 8.4 - 12.0 fL [facility] NRBC 0.00 0.00 /100 WBCs [facility] ABSOLUTE NRBC 0.00 0.00 K/uL [facility] DIFF METHOD Auto [facility] NEUTS 84.0(H) 48.0 - 76.0 % [facility] LYMPHS 6.7(L) 18.0 - 41.0 % [facility] MONOS 6.0 4.0 - 11.0 % [facility] EOS 2.5 0.0 - 5.0 % [facility] BASOS 0.3 0.0 - 1.5 % [facility] % IMMATURE GRANS 0.5 0.0 - 0.9 % [facility] ABSOLUTE NEUTS 6.31 1.92 - 7.60 K/uL [facility] Comment:1.21-5.39 cells/KL i s the reference range for individuals with the Moreno null phenotype ABSOLUTE LYMPHS 0.50(L) 0.72 - 4.10 K/uL [facility] ABSOLUTE MONOS 0.45 0.16 - 1.10 K/uL [facility] ABSOLUTE EOS 0.19 0.00 - 0.50 K/uL [facility] ABSOLUTE BASOS 0.02 0.00 - 0.15 K/uL [facility] ABS IMMATURE GRANS 0.04 0.00 - 0.09 K/uL [facility] ABSOLUTE NEUTROPHIL COUNT 6.31 1.92 - 7.60 K/uL [facility] Comment: Automated cell count. Manual ANC may differ if performed. 1.21-5.39 cells/KL is the reference range for individuals with the Moreno null phenotype 01/16/2025 11:4 8 AM EDT 01/16/2025 1:12 PM EDT us Adriel Rivera MD, MPH LAB BLOOD BKR ORDERABLES Final Result Performing Organization Address City/[facility]/ZIP Co de Phone Number [facility] [address] [place] [phone] * NT-proBNP (01/16/2025 11:48 AM EDT) NT-PROBNP 247 <900 pg/mL [facility] Comment: 01/16/2025 11:4 8 AM EDT 01/16/2025 1:12 PM EDT us Adriel Rivera MD, MPH LAB BLOOD BKR ORDERABLES Final Result Performing Organization Address [facility] Co de Phone Number [facility] [address] [place] [phone] * Magnesium (01/16/2025 11:48 AM EDT) Only the most recent of2 resultswithin the time period is included. MAGNESIUM 1.9 1.7 - 2.6 mg/dL [facility] 01/16/2025 11:4 8 AM EDT 01/16/2025 1:12 PM EDT us Adriel Rivera MD, MPH LAB BLOOD BKR ORDERABLES Final Result Performing Organization Address City/[facility]/ZIP Co de Phone Number [facility] [address] [place] [phone] * (ABNORMAL) Basic metabolic panel (01/16/2025 11:48 AM EDT) SODIUM 138 136 - 145 mmol/L [facility] POTASSIUM 4.9 3.4 - 5.1 mmol/L [facility] CHLORIDE 104 98 - 107 mmol/L [facility] CO2 25 22 - 31 mmol/L [facility] BUN 31(H) 6 - 23 mg/dL [facility] CREATININE 1.42(H) 0.50 - 1.20 mg/dL [facility] GLUCOSE 112(H) 70 - 100 mg/dL [facility] CALCIUM 8.9 8.8 - 10.7 mg/dL [facility] EGFR 52(L) >59 mL/min/1. 73m2 [facility] Comment:Estimated glomerular filtration rate calculated using the CKD-EPI refit equation. ANION GAP 9 7 - 17 mmol/L [facility] 01/16/2025 11:4 8 AM EDT 01/16/2025 1:12 PM EDT us Adriel Rivera MD, MPH LAB BLOOD BKR ORDERABLES Final Result [facility] [address] [place] [phone] * ECG 12-LEAD (01/16/2025 10:59 AM EDT) Ventricular Rate EKG/MIN 83 BPM [facility] Atrial Rate 83 BPM [facility] LA Interval 154 ms [facility] QRS Duration 124 ms [facility] QT Interval 390 ms [facility] QTC Interval 458 ms [facility] P [place] 8 degrees [facility] R Wave [place] 30 degrees [facility] T Wave [place] 22 degrees [facility] 01/16/2025 10:5 9 AM EDT Narrative [facility] - 01/23/2025 2:30 AM EDT Normal sinus rhythm Right bundle branch block Abnormal ECG When compared with ECG of 18-Jul-2024 07:47, No significant change was found Gurwinder Ghotra MD, MSc ECG ORDERABLES Final Re sult [facility] * (ABNORMAL) Comprehensive metabolic panel (12/27/2024 9:02 AM EDT) Glucose 218(H) 65 - 139 mg/dL [facility] Comment: Non-fasting reference interval Urea Nitrogen (BUN) 35(H) 7 - 25 mg/dL [facility] Creatinine 1.30(H) 0.70 - 1.28 mg/dL [facility] EGFR 58(L) > OR = 60 mL/min/1. 73m2 [facility] BUN/Creatinine Ratio 27(H) 6 - 22 (calc) [facility] Sodium 139 135 - 146 mmol/L [facility] Potassium 5.1 3.5 - 5.3 mmol/L [facility] Chloride 105 98 - 110 mmol/L [facility] Carbon Dioxide 25 20 - 32 mmol/L [facility] Calcium 8.7 8.6 - 10.3 mg/dL [facility] Protein, Total 6.4 6.1 - 8.1 g/dL [facility] Albumin 3.9 3.6 - 5.1 g/dL [facility] Globulin 2.5 1.9 - 3.7 g/dL (calc) [facility] Albumin/Globuli n Ratio 1.6 1.0 - 2.5 (calc) [facility] Bilirubin, Total 0.4 0.2 - 1.2 mg/dL [facility] Alkaline Phosphatase 69 35 - 144 U/L [facility] AST 14 10 - 35 U/L [facility] ALT 15 9 - 46 U/L [facility] Blood 12/27/2024 9:02 AM EDT 12/27/2024 9:02 AM EDT Narrative [facility] - 12/28/2024 12:04 AM EDT FASTING:NO FASTING: NO Lien Lomeli [facility] LAB BLOOD BKR ORDERABLES Final Result [facility] [address] [address], [facility] [phone] [facility] [address] [place] [address] * (ABNORMAL) Hemoglobin A1c (07/18/2024 9:11 AM EDT) HEMOGLOBIN A1C 7.2(H) 4.2 - 5.6 % [facility] Comment: HbA1c levels 5.7-6.4% represent pre-diabetes, indicating impaired glucose control and an increased risk of developing diabetes. The diagnostic HbA1c level for diabetes is 6.5% or greater. HbA1c is performed by the Cady Lissy-quant immunoassay method which does not detect (incidental) hemoglobin variants. Hemoglobin electrophoresis should be ordered in patients with suspected hemoglobinopathies. CALC MEAN BLD GLUC 160 mg/dL [facility] Comment:The Calculated Mean Blood Glucose (CMBG) represents the estimated average glucose calculated from the measured hemoglobin A1c (HbA1c). There is no established normal range for the CMBG, however a 5.6% HbA1c (upper limit of normal) represents a CMBG of 114 mg/dL. 07/18/2024 9:11 AM EDT 07/18/2024 9:52 AM EDT Lien Lomeli [facility] LAB BLOOD BKR ORDERABLES Final Result [facility] [address] [place] [phone] * CT ABDOMEN/PELVIS WITH CONTRAST (06/23/2021 6:19 PM EST) Anatomical Region Laterality Modality Abdomen, Pelvis Computed Tomogra phy 06/24/2021 8:16 AM EST Impressions 06/24/2021 9:05 AM EST 1. Mild distention and wall thickening of the rectum, may be reactive to rectal stool, or may represent early/mild proctitis. 2. Mild splenomegaly, increased since 2019, nonspecific and may be due to active COVID infection. 3. Cholelithiasis without CT findings of acute cholecystitis. The Radiologist Diagnostic Certainty Scale is a guide that conveys to patients and providers a radiologist's subjective diagnostic confidence: Most likely means very high probability Likely means high probability May represent means intermediate probability Unlikely means low probability Very unlikely means very low probability You can find out more about our efforts to improve the clarity of radiology reports for our patients and providers by visiting [email or web address] ATTESTATION: Lynda Dumont, as teaching physician have reviewed the images, if any, for this patient's exam, and if necessary, have edited the report originally created by Christiano Armstrong. Narrative 06/24/2021 9:[address] ABDOMEN/PELVIS WITH CONTRAST Review of the Electronic Medical Record reveals an additional history of: 70-year-old male history of cardiac transplant admitted for COVID infection TECHNIQUE: Multidetector-row CT of the abdomen and pelvis was performed after administration of intravenous contrast using tailored dose modulation techniques. Images were reconstructed in the axial, coronal, and sagittal planes. COMPARISON: RI PET CT SKULL BASE TO MID THIGHS FINDINGS: Lower Chest: CT chest from the same day is reported separately. Liver: Normal. No focal lesions. Biliary: Cholelithiasis (1:25). No biliary ductal dilatation. Spleen: Splenomegaly measuring 14.1 cm in craniocaudal dimension (8:46) and approximately 16.1 cm in AP dimension (1:17), increased since 2019. No focal lesions. Pancreas: Normal. No masses or ductal dilatation. Adrenal Glands: Normal. No nodules. Kidneys/Ureters: Unchanged bilateral lobulation/scarring. No solid masses, stones, or hydronephrosis. Bowel: Mild distention of the rectum up to 5.4 cm with mild wall thickening (1:88, 89, 8:48). No other distention or wall thickening. Peritoneum/Retroperitoneum: No intraperitoneal free air or free fluid. Bilateral perinephric stranding, left greater than right, similar to that shown on the distant prior PET of 2019. Lymph Nodes: Normal. No lymphadenopathy. Pelvic Organs/Bladder: Bilateral calcified vas deferens, unchanged. No mass. Vessels: No abdominal aortic aneurysm. Atherosclerotic changes of the abdominal aorta and its branches. Bones/Soft Tissues: No destructive osseous lesions. Status post L4-L5 interspinous process spacer placement (9:54). Multilevel degenerative changes of the spine. Procedure Note Lynda Pagan MD - 06/24/2021 CT ABDOMEN/PELVIS WITH CONTRAST Review of the Electronic Medical Record reveals an additional history of:70-year-old male history of cardiac transplant admitted for COVIDinfection TECHNIQUE: Multidetector-row CT of the abdomen and pelvis was performedafter administration of intravenous contrast using tailored dosemodulation techniques. Images were reconstructed in the axial, coronal,and sagittal planes. COMPARISON: RI PET CT SKULL BASE TO MID THIGHS FINDINGS: Lower Chest: CT chest from the same day is reported separately. Liver: Normal. No focal lesions. Biliary: Cholelithiasis (1:25). No biliary ductal dilatation. Spleen: Splenomegaly measuring 14.1 cm in craniocaudal dimension (8:46)and approximately 16.1 cm in AP dimension (1:17), increased since 2019. Nofocal lesions. Pancreas: Normal. No masses or ductal dilatation. Adrenal Glands: Normal. No nodules. Kidneys/Ureters: Unchanged bilateral lobulation/scarring. No solid masses,stones, or hydronephrosis. Bowel: Mild distention of the rectum up to 5.4 cm with mild wallthickening (1:88, 89, 8:48). No other distention or wall thickening. Peritoneum/Retroperitoneum: No intraperitoneal free air or free fluid.Bilateral perinephric stranding, left greater than right, similar to thatshown on the distant prior PET of 2019. Lymph Nodes: Normal. No lymphadenopathy. Pelvic Organs/Bladder: Bilateral calcified vas deferens, unchanged. [place]. Vessels: No abdominal aortic aneurysm. Atherosclerotic changes of theabdominal aorta and its branches. Bones/Soft Tissues: No destructive osseous lesions. Status post L4- Y2xkndsdyvoglp process spacer placement (9:54). Multilevel degenerativechanges of the spine. IMPRESSION: 1. Mild distention and wall thickening of the rectum, may be reactive torectal stool, or may represent early/mild proctitis. 2. Mild splenomegaly, increased since 2019, nonspecific and may be due toactive COVID infection. 3. Cholelithiasis without CT findings of acute cholecystitis. The Radiologist Diagnostic Certainty Scale is a guide that conveys topatients and providers a radiologist's subjective diagnostic confidence: Most likely means very high probability Likely means high probability May represent means intermediate probability Unlikely means low probability Very unlikely means very low probability You can find out more about our efforts to improve the clarity ofradiology reports for our patients and providers by [email or web address] ATTESTATION: Lynda Dumont, as teaching physician have reviewed theimages, if any, for this patient's exam, and if necessary, have edited thereport originally created by Christiano Armstrong. us Hussein Olson MD IMG CT ABD/PELVIS Final Res ult * ENDOSCOPY, COLON (12/28/2011 1:21 PM EDT) 12/28/2011 1:21 PM EDT Narrative 01/09/2012 4:33 PM EDT Report Number: [id number] Report Status: Signed Type: Colonoscopy Date: 12/28/2011 13:21 [facility] Gastroenterology Patient Name: Tony Thompson Procedure Date: 12/28/2011 1:21 PM Date of : 1950 Admit Type: Inpatient Age: 61 Room: 5 Gender: Male Note Status: Finalized Attending MD: JOSIAH KAISER M.D. Procedure: Colonoscopy Indications: Screening for colorectal malignant neoplasm Patient Profile: screening Providers: JOSIAH KAISER M.D., Michaela Fitzgerald RN Referring MD: Padmini Brand (Referring MD) Requesting Provider: Dung Chen Medicines: Monitored Anesthesia Care Complications: No immediate complications. Procedure: Pre-Anesthesia Assessment: - Prior to the procedure, a History and Physical was performed, and patient medications, allergies and sensitivities have been reviewed. The patient's tolerance of previous anesthesia has been reviewed. - ASA Grade Assessment: III - A patient with severe systemic disease. - The anesthesia plan was to use monitored anesthesia care (MAC). After informed consent was obtained, the scope was passed under direct vision. Throughout the procedure, the patient's blood pressure, pulse, and oxygen saturations were monitored continuously. The Colonoscope was introduced through the anus and advanced to the cecum, identified by appendiceal orifice & ileocecal valve. The colonoscopy was performed without difficulty. The patient tolerated the procedure well. The quality of the bowel preparation was good. Findings: The perianal and digital rectal examinations were normal. A sessile polyp was found in the transverse colon. The polyp was small in size. The polyp was removed with a cold snare. Resection and retrieval were complete. Estimated blood loss: none. The exam was otherwise without abnormality. Impression: - One small polyp in the transverse colon. Resected and retrieved. - The examination was otherwise normal. Recommendation: - Discharge patient to home (ambulatory). - Await pathology results. - Repeat colonoscopy for surveillance based on pathology results (likely in 5 years if adenomatous) Yolanda KEARNEY M.D. 01/09/2012 4:33 PM This report has been signed electronically. Number of Addenda: 0 Note Initiated On: 12/28/2011 1:21 PM Procedure Note Josiah Kaiser MD - 12/28/2011 1:21 PM EDT Report Number: [id number] Report Status:Signed Type: Colonoscopy Date: 12/28/2011 13:21 [facility] Gastroenterology Patient Name: Tony Thompson Procedure Date: 12/28/2011 1:21 PM Date of : 1950 Admit Type: Inpatient Age: 61 Room: 5 Gender: Male Note Status: Finalized Attending MD: JOSIAH KAISER M.D. Procedure: Colonoscopy Indications: Screening for colorectal malignant neoplasm Patient Profile: screening Providers: JOSIAH KAISER M.D., Michaela Fitzgerald RN Referring MD: Padmini Brand (Referring MD) Requesting Provider: Dung Chen Medicines: Monitored Anesthesia Care Complications: No immediate complications. Procedure: Pre-Anesthesia Assessment: - Prior to the procedure, a History and Physical was performed, and patient medications, allergies and sensitivities have been reviewed. The patient's tolerance of previous anesthesia has been reviewed. - ASA Grade Assessment: III - A patient with severe systemic disease. - The anesthesia plan was to use monitored anesthesia care (MAC). After informed consent was obtained, the scope was passed under direct vision. Throughout the procedure, the patient's blood pressure, pulse, and oxygen saturations were monitored continuously. The Colonoscope was introduced through the anus and advanced to the cecum, identified by appendiceal orifice & ileocecal valve. The colonoscopy was performed without difficulty. The patient tolerated the procedure well. The quality of the bowel preparation was good. Findings: The perianal and digital rectal examinations were normal. A sessile polyp was found in the transverse colon. The polyp was small in size. The polyp was removed with a cold snare. Resection and retrieval were complete. Estimated blood loss: none. The exam was otherwise without abnormality. Impression: - One small polyp in the transverse colon. Resected and retrieved. - The examination was otherwise normal. Recommendation: - Discharge patient to home (ambulatory). - Await pathology results. - Repeat colonoscopy for surveillance based on pathology results (likely in 5 years if adenomatous) Yolanda KEARNEY M.D. 01/09/2012 4:33 PM This report has been signed electronically. Number of Addenda: 0 Note Initiated On: 12/28/2011 1:21 PM Padmini Brand NP GI PROCEDURE ORDERABLES Final Result * Historical Lab (08/15/2011 6:19 PM EDT) B12 313 250 - 900 pg/mL [facility] FERRITIN 159 20 - 400 ug/L [facility] PREALBUMIN 26.6 20 - 40 mg/dL [facility] HAV TOTAL ANTIBODIES ANTIBODY NEGATIVE NON-REACTIVE [facility] HAV IgM NEGATIVE NEGATIVE [facility] HBsAg NEGATIVE NEGATIVE [facility] HBsAb NEGATIVE NEGATIVE [facility] HBc IgM NEGATIVE NEGATIVE [facility] HCV NEGATIVE NEGATIVE [facility] 08/15/2011 6:19 PM EDT Comment:BLOOD us Abraham Witt MD LAB BLOOD ORDERABLES Fin al Result [address] [address] from Last 3 Months or Most Recently Relevant to Health Maintenance Insurance MEDICARE PART A & B MEDICARE SUPPLEMENT MEDICARE PART A & B MEDICARE SUPPLEMENT MEDICARE PART A & B MEDICARE SUPPLEMENT MEDICARE PART A & B [facility] MEDICARE SUPPLEMENT MEDICARE PART A & B [facility] MEDICARE SUPPLEMENT MEDICARE PART A & B [facility] MEDICARE SUPPLEMENT MEDICARE PART A & B [facility] MEDICARE SUPPLEMENT MEDICARE PART A & B Member Subscriber Plan / Payer (Ef fective 2005-Present) Name:Tony Thompson Member ID:[id number] Relation to Subscriber:Self Name:Tony Thompson Subscriber ID:[id number] Payer ID:[id number] Group ID:Not on file Type:Medicare Address: [employer] [address] MEDICARE SUPPLEMENT MEDICARE PART A & B [facility] MEDICARE SUPPLEMENT Advance Directives For more information, please contact: [phone] (9AM - 5PM [place], Monday-Monday) * Full Code (Latest Code Status on File) Date Activated Date Inactivated Comments 06/23/2021 10:48 AM Question Answer Comments Code Status Confirmed With: Patient * Full Code Date Activated Date Inactivated Comments 06/09/2020 10:59 AM 06/23/2021 10:48 AM Question Answer Comments Code Status Confirmed With: Patient * Full Code (Presumed) Date Activated Date Inactivated Comments 07/19/2018 12:05 PM 07/19/2018 10:42 PM * Full Code (Presumed) Date Activated Date Inactivated Comments 07/19/2018 8:47 AM 07/19/2018 12:05 PM * Full Code (Confirmed) Date Activated Date Inactivated Comments 03/20/2018 10:19 AM 03/20/2018 6:01 PM Question Answer Comments Code Status Confirmed With: Patient Care Teams Director Market Intelligence Relationship Specialty Start Date End Date Dung Chen MD [address] [place] [address] PCP - General 08/21/14 Annita Watson MD [address] [place] [address] Neurosurgery 09/17/19 Han Hopkins MD, MARIA L [address] [place] [address] [email or web address] Interventional Radiology 07/10/23 Dung Chen MD [address] [place] [address] Internal Medicine 07/10/23 Norma Sanchez PA [address] [place] [address] Recapper Physician Dermatology Specialist 07/18/24 Additional Source Comments The information contained in this document represents components of the legal health record. It is not the complete legal health record.[facility]
--- OUTSIDE RECORDS SUMMARY | 2025-03-05 21:13 | XMS_ITS | Encounter Summary ---
Author Organization [facility] Address [address] [place] [address] Phone Care Team Providers Care Coffee Roaster Helper Name Role Phone Dung Chen MD Primary Care Provider +- [phone] Tia Granda NP Unavailable [email or web address] Annita Watson MD Unavailable [phone] Carlos Alberto Stanford MD Unavailable [phone] Han Hopkins MD, MARIA L Unavailable Dung Chen MD Unavailable [phone] Norma Sanchez Unavailable [phone] Encounter Details Date Type Department Care Team (Late st Contact Info) Description 07/04/2017 Procedure Pass [facility] Cardiac Design Painter [address] [place] [address] Social History Tobacco Use Types Packs/Day Years [...] st Contact Info) Description 01/21/2025 Procedure Pass [facility] Echocardiography [address] [place] [address] 07/17/2025 10:00 AM EDT Appointment [facility] Echocardiography [address] [place] [address] Annita Holden, CORPORATE MANAGER [address] [place] [address] [email or web address] 07/17/2025 11:00 AM EDT Office Visit [facility] Cardiac Transplant [address] [place] [address] Unknown, MD Jeaneth documented as of this [...] was found to be COVID+, transferred to [facility] for further management. Assessment: Recent swabs [...] documented as of this encounter Care Teams Coffee Roaster Helper Relationship Specialty Start Date End Date Dung Chen MD [address] [place] [address] PCP - General 08/21/14 Tia Granda NP [email or web address] Historical LMR Provider 08/30/14 02/21/21 Annita Watson MD [address] [place] [address] Neurosurgery 09/17/19 Carlos Alberto Stanford MD [address] [place] [address] Product Specialist Internal Medicine 07/10/23 07/18/24 Han Hopkins MD, MARIA L [address] [place] [address] [email or web address] Interventional Radiology 07/10/23 Dung Chen MD [address] [place] [address] Internal Medicine 07/10/23 Norma Sanchez PA [address] [place] [address] Product Specialist Physician Interior Design Assistant 07/18/24 documented as of this encounter Additional Source Comments The information contained in this document represents components of the legal health record. It is not the complete legal health record.[facility]
--- OUTSIDE RECORDS SUMMARY | 2025-03-05 21:13 | XMS_ITS | Encounter Summary ---
Author Organization [facility] Address [address] [place] [address] Phone Care Team Providers Care Intelligence Consultant Name Role Phone Dung Chen MD Primary Care Provider +- [phone] Tia Granda NP Unavailable [email or web address] Annita Watson MD Unavailable [phone] Carlos Alberto Stanford MD Unavailable [phone] Han Hopkins MD, MARIA L Unavailable Dung Chen MD Unavailable [phone] Norma Sanchez Unavailable [phone] Encounter Details Date Type Department Care Team (Late st Contact Info) Description 06/20/2017 Procedure Pass [facility] [address] [place] [address] Social History Tobacco Use Types Packs/Day Years [...] st Contact Info) Description 01/21/2025 Procedure Pass [facility] Echocardiography [address] [place] [address] 07/17/2025 10:00 AM EDT Appointment [facility] Echocardiography [address] [place] [address] Annita Holden, EDGE SANDER [address], [place] [phone] [email or web address] 07/17/2025 11:00 AM EDT Office Visit [facility] Cardiac Transplant [address] [place] [address] Unknown, MD Jeaneth documented as of this [...] was found to be COVID+, transferred to [facility] for further management. Assessment: Recent [...] documented as of this encounter Care Teams Intelligence Consultant Relationship Specialty Start Date End Date Dung Chen MD [address] [place] [address] PCP - General 08/21/14 Tia Granda NP [email or web address] Historical LMR Provider 08/30/14 02/21/21 Annita Watson MD [address] [place] [address] Neurosurgery 09/17/19 Carlos Alberto Stanford MD [address] [place] [address] Insole Reinforcer Internal Medicine 07/10/23 07/18/24 Han Hopkins MD, MARIA L [address] [place] [address] Interventional Radiology 07/10/23 Dung Chen MD [address] [place] [address] Internal Medicine 07/10/23 Norma Sanchez PA [address] [place] [address] Insole Reinforcer Physician Verification Lead 07/18/24 documented as of this encounter Additional Source Comments The information contained in this document represents components of the legal health record. It is not the complete legal health record.[facility]
--- OUTSIDE RECORDS SUMMARY | 2025-03-05 21:13 | XMS_ITS | Encounter Summary ---
Author Organization Located [facility] Address [address] [place] [address] Phone Care Team Providers Care Fund Director Name Role Phone Dung Chen MD Primary Care Provider +- [phone] Tia Granda NP Unavailable [email or web address] Annita Watson MD Unavailable [phone] Carlos Alberto Stanford MD Unavailable [phone] Han Hopkins MD, MARIA L Unavailable Dung Chen MD Unavailable [phone] Norma Sanchez Unavailable [phone] Reason for Referral * MRI/CAT Scan - Closed Specialty Diagnoses / Procedures Referred By Contac t Referred To Contact Radiology Diagnoses Claudication Heart replaced by transplant Procedures MRI Angio Pelvis Chelsey Valdes MD Phone: tel: fax: Referral ID Status Reason Start Date Expiration Date Visits Re quested Visits Authorized [id number] Closed 06/29/2017 06/29/2018 1 1 Encounter Details Date Type Department Care Team (Latest Contact Info) Description 06/29/2017 Transcribe Orders [facility] Cardiac Customs Patrol Officer [address] [place] [address] Wendy Slaughter [address] [place] [address] [email or web address] Claudication (Primary Dx); Heart replaced by transplant Social [...] st Contact Info) Description 01/21/2025 Procedure Pass [facility] Echocardiography [address] [place] [address] 07/17/2025 10:00 AM EDT Appointment [facility] Echocardiography [address] [place] [address] Annita Holden, DRIVER MANAGER [address] [place] [address] [email or web address] 07/17/2025 11:00 AM EDT Office Visit [facility] Cardiac Transplant [address] [place], [place] [id number] Unknown, Unknown, documented as of this encounter Results * MRI ANGIO PELVIS WITH AND WITHOUT CONTRAST (06/29/2017 12:49 PM EDT) Anatomical Region Laterality Modality Pelvis Magnetic Resonan ce Angiography 06/29/2017 12:4 9 [...] femoral artery Profunda femoris artery: Mild stenosis Eokrd-uvv-kbqd popliteal artery: Moderate stenosis Qilme-mwr-rbmd popliteal artery: Severe stenosis of the proximal vessel. Anterior tibial artery: Diffuse irregular disease with areas of mild stenosis. Tibioperoneal trunk: Patent Peroneal artery: Patent Posterior tibial artery: Irregular disease with areas of mild stenosis LEFT LEG: Common iliac artery: Patent Internal iliac artery: Patent External iliac artery: Patent Common femoral artery: Patent Superficial femoral artery: Patent Profunda femoris artery: Patent Vgvpo-qtp-pdnu popliteal artery: Severe stenosis Cdpbr-cad-ukjj popliteal artery: Patent Anterior tibial artery: Severe [...] femoral artery Profunda femoris artery: Mild stenosis Hripg-xgt-gatm popliteal artery: Moderate stenosis Jzvet-dvr-pkgx popliteal artery: Severe stenosis of the proximal vessel. Anterior tibial artery: Diffuse irregular disease with areas of mild stenosis. Tibioperoneal trunk: Patent Peroneal artery: Patent Posterior tibial artery: Irregular disease with areas of mild stenosis LEFT LEG: Common iliac artery: Patent Internal iliac artery: Patent External iliac artery: Patent Common femoral artery: Patent Superficial femoral artery: Patent Profunda femoris artery: Patent Xkfhs-bwa-raxr popliteal artery: Severe stenosis Ltshy-wzt-yole popliteal artery: Patent Anterior tibial artery: Severe [...] written. us Chelsey Valdes MD IMG MR PELVIS Final Res ult documented in this encounter Visit Diagnoses Diagnosis Claudication- Primary Unspecified peripheral vascular disease Heart replaced by transplant Claudication Unspecified peripheral vascular disease Heart replaced by transplant documented in this [...] was found to be COVID+, transferred to [facility] for further management. Assessment: Recent swabs [...] documented as of this encounter Care Teams Fund Director Relationship Specialty Start Date End Date Dung Chen MD [address] [place] [address] PCP - General 08/21/14 Tia Granda NP [email or web address] Historical LMR Provider 08/30/14 02/21/21 Annita Watson MD [address] [place] [address] Neurosurgery 09/17/19 Carlos Alberto Stanford MD [address] [place] [address] Client Specialist Internal Medicine 07/10/23 07/18/24 Han Hopkins MD, MARIA L [address] [place] [address] Interventional Radiology 07/10/23 Dung Chen MD [address] [place] [address] Internal Medicine 07/10/23 Norma Sanchez PA [address] [place] [address] Client Specialist Physician Pharmacy Billing Adjudicator 07/18/24 documented as of this encounter Additional Source Comments The information contained in this document represents components of the legal health record. It is not the complete legal health record.[facility]
--- OUTSIDE RECORDS SUMMARY | 2025-03-05 21:13 | XMS_ITS | Patient Health Record ---
Author Organization [facility] Address [address] [place] [address] Care Team Providers Care Mall Manager Name Role Phone Dung Chen MD Primary Care Provider Unavail able Magdy Gutiérrez Unavailable [phone] Allergies Allergen (clinical drug ingredient) Drug/Non Drug [...] Orally Once a day Active Vitamin D 47760 1 tablet Orally Once a day Active Aspirin 81 MG 1 tablet Orally Once a day; Duration: 30 day(s) Active Vitamin C 500 MG 1 tablet Orally twic e a day Active Tacrolimus 9 Orally Twice a day Active predniSONE 5 MG 1 tablet with food o r milk Orally Once a day Active Omeprazole 20 MG 1 capsule Orally Onc e a day; Duration: 30 day(s) Active NovoLOG Active Primidone Not-Taking Multivitamins Orally Active Plavix Not-Taking Lantus 100 UNIT/ML 0.02 ml Subcutaneous Once a day; Duration: 30 day(s) Active Klor-Con Not-Taking Cilostazol Active Crestor 20 MG 1 tablet Orally Once a day Active Iodosorb 0.9 % as directed External ly Apply to ulceration daily with dry sterile dressing; Duration: 30 days 05/05/2022 Active CellCept 1500 Orally Twice a day Active Vitamin E 400 UNIT 1 capsule Orally twi ce a day Active Immunizations Vaccine Route Administration Date Status Comme nts Influenza Unknown 02/03/2015 Administered Influenza Unknown 03/01/2016 Administered Influenza Unknown 03/02/2017 Administered Influenza Unknown 03/02/2017 Refused Influenza Unknown 02/13/2018 Administered Influenza Unknown 02/01/2019 Administered Pneumococcal Unknown 02/03/2015 Administered Pneumococcal Unknown 04/24/2016 Administered COVID-19 Pfizer BioNTech Vaccine Unknown 05/17/2020 Adm inistered COVID-19 Pfizer BioNTech Vaccine Unknown 06/13/2020 Adm inistered Social History Tobacco Use: Social History Observation [...] Problem Acquired hammer toe of right foot (8076807887278547 ) Other hammer toe(s) (acquired), right foot (M20.41) Active confirmed Problem Acquired hammer toe of left foot (8932785477552968 ) Other hammer toe(s) (acquired), left foot (M20.42) Active confirmed Problem Polyneuropathy due to diabetes mellitus type I (758232261) Type 1 diabetes mellitus with diabetic polyneuropathy (E10.42) Active confirmed Problem Chronic ulcer of foot (682336138) Non-pressure chronic ulcer of right heel and 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 (L97.412) Active confirmed Problem Peripheral circulatory disorder associated with type 1 diabetes mellitus (060172249) Type 1 diabetes mellitus with diabetic peripheral angiopathy without gangrene (E10.51) Active confirmed Problem Ulcer of left foot (disorder) (980921333) Ulcer of left foot with fat layer exposed (L97.522) Active confirmed Plan Of Treatment Pending Test Test Name Order Date Hemoglobin A1c 12/03/2014 04367-BLXGGTL NAIL, 6 OR MORE 12/03/2014 43090-VPBRJWB NAIL, 6 OR MORE 03/04/2015 51426-LPQDHVD NAIL, 6 OR MORE 05/28/2015 88544-AHCYBFO NAIL, 6 OR MORE 08/27/2015 92416-YNOVAKX NAIL, 6 OR MORE 11/26/2015 27656-YSQNIRU NAIL, 6 OR MORE 02/25/2016 57979-ZMDPCVJ NAIL, 6 OR MORE 06/01/2016 37917-FVDPPGY NAIL, 6 OR MORE 08/31/2016 76491-VFBDPWZ NAIL, 6 OR MORE 03/21/2013 24727-FUOGZBL NAIL, 6 OR MORE 06/13/2013 47582-VSUCOID NAIL, 6 OR MORE 09/11/2013 26354-YKFINEW NAIL, 6 OR MORE 12/04/2013 76031-EFTYKLT NAIL, 6 OR MORE 03/05/2014 58224-UPKWVMF NAIL, 6 OR MORE 05/26/2014 70299-OIJCBNL NAIL, 6 OR MORE 09/10/2014 28764-IAXZSLO NAIL, 6 OR MORE 12/01/2016 82576-HIMEDTI NAIL, 6 OR MORE 03/02/2017 78730-EUFAZAH NAIL, 6 OR MORE 06/01/2017 72897-MXFQUIO NAIL, 6 OR MORE 08/31/2017 31395-XOCNDCH NAIL, 6 OR MORE 11/30/2017 14751-DZZGDYR NAIL, 6 OR MORE 03/12/2018 41198-CMDNBKI NAIL, 6 OR MORE 06/11/2018 43943-MPHFDJL NAIL, 6 OR MORE 09/05/2018 56827-HCFWQAA NAIL, 6 OR MORE 11/26/2018 38847-KINZIBS NAIL, 6 OR MORE 02/25/2019 77376-OTXJRRG NAIL, 6 OR MORE 05/27/2019 43281-NLYDSNB NAIL, 6 OR MORE 08/26/2019 23708-RYOOFRZ NAIL, 6 OR MORE 11/25/2019 86300-BMMIMQD NAIL, 6 OR MORE 02/27/2020 47026-MVIHRYZ NAIL, 6 OR MORE 05/28/2020 57831-LBQGKOZ NAIL, 6 OR MORE 08/27/2020 07971-CCURBKG NAIL, 6 OR MORE 12/03/2020 69043-JFRKFSD NAIL, 6 OR MORE 03/04/2021 13459-CRKOFVD NAIL, 6 OR MORE 07/26/2021 97517-ENUAMQC NAIL, 6 OR MORE 11/04/2021 78604-CQHTRQF NAIL, 6 OR MORE 02/03/2022 58707-RXALDDI NAIL, 6 OR MORE 05/05/2022 93745-MXJKJNA NAIL, 6 OR MORE 09/22/2022 36007-Cepetceq Plate 03/21/2013 83746-Ylbghtmy Plate Each Additional 08/2012 41471-POWB SKIN LESIONS, 2 TO 4 03/21/20 13 55126-AVBH SKIN LESIONS, 2 TO 4 09/12/19 14 45015-ZCRF SKIN LESIONS, 2 TO 4 06/13/19 14 83411-XGIQ SKIN LESIONS, 2 TO 4 09/11/19 15 97787-JEUL SKIN LESIONS, 2 TO 4 05/26/19 15 53000-ZLGW SKIN LESIONS, 2 TO 4 03/05/20 14 01758-ISUG SKIN LESIONS, 2 TO 4 12/05/19 14 40668-SRRL SKIN LESIONS, 2 TO 4 12/02/19 17 75413-KHXO SKIN LESIONS, 2 TO 4 06/01/19 17 03146-PBZY SKIN LESIONS, 2 TO 4 09/01/19 17 14276-VHRK SKIN LESIONS, 2 TO 4 02/25/20 16 26394-RJKS SKIN LESIONS, 2 TO 4 11/26/19 16 41166-ZDLQ SKIN LESIONS, 2 TO 4 08/27/19 16 73575-RIAM SKIN LESIONS, 2 TO 4 05/28/19 16 24846-FCSR SKIN LESIONS, 2 TO 4 12/04/19 15 33332-BKIG SKIN LESIONS, 2 TO 4 03/04/20 15 16724-BRGF SKIN LESIONS, 2 TO 4 12/04/19 21 86338-CLRF SKIN LESIONS, 2 TO 4 08/28/19 21 43145-HJHE SKIN LESIONS, 2 TO 4 05/28/19 21 11229-DOGK SKIN LESIONS, 2 TO 4 02/27/20 20 01048-WYIF SKIN LESIONS, 2 TO 4 08/26/19 20 89633-FMRY SKIN LESIONS, 2 TO 4 05/27/19 20 80747-HTJR SKIN LESIONS, 2 TO 4 02/26/20 19 57164-HITL SKIN LESIONS, 2 TO 4 11/27/19 19 77693-MPKM SKIN LESIONS, 2 TO 4 09/06/19 19 11172-MIKE SKIN LESIONS, 2 TO 4 06/11/19 19 23999-UNWE SKIN LESIONS, 2 TO 4 03/12/20 18 88124-WQZC SKIN LESIONS, 2 TO 4 12/01/19 18 11258-UPNJ SKIN LESIONS, 2 TO 4 09/01/19 18 48013-XZDC SKIN LESIONS, 2 TO 4 06/01/19 18 00712-NSQB SKIN LESIONS, 2 TO 4 03/02/20 17 37468-JGPM SKIN LESIONS, 2 TO 4 09/23/19 23 67313-SAJV SKIN LESIONS, 2 TO 4 05/05/19 23 80242-OYUT SKIN LESIONS, 2 TO 4 11/25/19 66884-YRIS SKIN LESIONS, 2 TO 4 02/04/20 02508-YXYG SKIN LESIONS, 2 TO 4 11/05/19 08297-HXLJ SKIN LESIONS, 2 TO 4 07/27/19 59095-ETBP SKIN LESIONS, 2 TO 4 03/04/20 21 74080-Edfb. Subungual Hematoma 0 Insurance Providers Payer Name Payer Address Payer Phone Subscriber Number Group Number Insured Name Patient Relationship to Insured Coverage Start Date Coverage End Date Medicare National Govt Sv[employer] Inc [address] [place] [address] [id number] Tony Thompson Self - patient is the insured 5 [employer] Secondary to Medicare [address] [place] [address] [id number] Tony Thompson Self - patient is the [...] leg 08/2022 [facility], [place] 04/30/22 [facility] in [place] for 8 days 07/03/21 [facility] [place], Covid relate d issues 06/24/21 [facility] Covid 06/08 [facility], Covid 04/26/21 [facility], ENG 07/2020 [facility] [address] Issues with Diabetes 2020 [facility] stent left knee 12/10/19 [facility] Neck surgery 11/2019 [facility] Fell 05/2019 [facility], stent left knee 07/2018 [facility] lower back and leg pain 11/22/17 Colonoscopy 09/2016 Heart transplant in [place] 04/19/15 [facility] [address] -heart transplant 04/16-05/10/13 [facility] for blood clots in the pump for 10 day stay 01/2013
--- OUTSIDE RECORDS SUMMARY | 2025-03-05 21:14 | XMS_ITS | Encounter Summary ---
Author Organization [facility] Address [address] [place] [address] Phone Care Team Providers Care Out Of School Hours Care Worker Name Role Phone Dung Chen MD Primary Care Provider +- [phone] Tia Granda NP Unavailable [email or web address] Annita Watson MD Unavailable [phone] Carlos Alberto Stanford MD Unavailable +[phone] Han Hopkins MD, MARIA L Unavailable [phone] Dung Chen MD Unavailable [phone] Norma Sanchez Unavailable [phone] Reason for Visit * Reason Comments Medication Refill Encounter Details Date Type Department Care Team (Late Contact Info) Description 10/25/2017 Refill [facility] Cardiovascular Clinic [address] [place] [address] Chelsey Valdes MD [facility] [place] [address] Medication Refill Social History Tobacco Use Types [...] Contact Info) Description 01/21/2025 Procedure Pass [facility] Echocardiography [address] [place] [address] 07/17/2025 10:00 AM EDT Appointment [facility] Echocardiography [address] [place] [address] Annita Holden, SCALLOP DREDGER [address] [place] [address] [email or web address] 07/17/2025 11:00 AM EDT Office Visit [facility] Cardiac Transplant [address] [place] [address] Unknown, Unknown, documented as of this encounter [...] found to be COVID+, transferred to [facility] for further management. Assessment: Recent [...] AM EDT PHQ-2 Depression Total Score: 0 08/29/19 18 9:39 AM EDT documented as of this encounter Care Teams Out Of School Hours Care Worker Relationship Specialty Start Date End Date Dung Chen MD [address] [place] [address] PCP - General 08/21/14 Tia Granda NP [email or web address] Historical LMR Provider 08/30/14 02/21/21 Annita Watson MD [address] [place] [address] Neurosurgery 09/17/19 Carlos Alberto Stanford MD [address] [place] [address] Finance Teacher Internal Medicine 07/10/23 07/18/24 Han Hopkins MD, MARIA L [address] [place] [address] Interventional Radiology 07/10/23 Dung Chen MD [address] [place] [address] Internal Medicine 07/10/23 Norma Sanchez PA [address] [place] [address] Finance Teacher Physician Cash Application Representative 07/18/24 documented as of this encounter Additional Source Comments The information contained in this document represents components of the legal health record. It is not the complete legal health record.[facility]
--- OUTSIDE RECORDS SUMMARY | 2025-03-05 21:14 | XMS_ITS | Encounter Summary ---
Author Organization [facility] Address [address] [place] [address] Phone Care Team Providers Care Escalator Constructor Name Role Phone Dung Chen MD Primary Care Provider [phone] Annita Watson MD Unavailable +[phone] Carlos Alberto Stanford MD Unavailable [phone] Han Hopkins MD, MARIA L Unavailable Dung Chen MD Unavailable [phone] Norma Sanchez Unavailable [phone] Encounter Details Date Type Department Care Team (Late st Contact Info) Description 12/13/2021 Procedure Pass [facility] Echocardiography [address] [place] [address] Social History Tobacco Use Types Packs/Day Years [...] st Contact Info) Description 01/21/2025 Procedure Pass [facility] Echocardiography [address] [place] [address] 07/17/2025 10:00 AM EDT Appointment [facility] Echocardiography [address] [place] [address] Annita Holden, ASSOCIATE PROFESSOR OF RADIOLOGY [address] [place] [address] [email or web address] 07/17/2025 11:00 AM EDT Office Visit [facility] Cardiac Transplant [address] [place] [address] Unknown, MD Jeaneth documented as of this encounter Visit Diagnoses Not on filedocumented in this encounter Additional Health Concerns Assessment Noted Time PHQ-9 Depression Total Score: 1 11/21/19 15 11:24 AM EDT PHQ-2 Depression Total Score: 0 11/30/19 22 9:36 AM EDT documented as of this encounter Care Teams Escalator Constructor Relationship Specialty Start Date End Date Dung Chen MD [address] [place] [address] PCP - General 08/21/14 Annita Watson MD [address] [place] [address] Neurosurgery 09/17/19 Carlos Alberto Stanford MD [address] [place] [address] Cloth Measurer Internal Medicine 07/10/23 07/18/24 Han Hopkins MD, MARIA L [address] [place] [address] Interventional Radiology 07/10/23 Dung Chen MD [address] [place] [address] Internal Medicine 07/10/23 Norma Sanchez PA [address] [place] [address] Cloth Measurer Physician Manager Transmission 07/18/24 documented as of this encounter Additional Source Comments The information contained in this document represents components of the legal health record. It is not the complete legal health record.[facility]
--- OUTSIDE RECORDS SUMMARY | 2025-03-05 21:14 | XMS_ITS | Encounter Summary ---
Author Organization [facility] Address [address] [place] [address] Phone Care Team Providers Care Emergency Department Clinician Name Role Phone Dung Chen MD Primary Care Provider +- [phone] Tia Granda NP Unavailable [email or web address] Annita Watson MD Unavailable [phone] Carlos Alberto Stanford MD Unavailable [phone] Han Hopkins MD, MARIA L Unavailable Dung Chen MD Unavailable [phone] Norma Sanchez Unavailable [phone] Encounter Details Date Type Department Care Team (Late st Contact Info) Description 06/22/2018 Procedure Pass [facility] Rad[facility] [address] [place] [address] Social History Tobacco Use Types Packs/Day Years [...] Info) Description 01/21/2025 Procedure Pass [facility] Echocardiography [address] [place] [address] 07/17/2025 10:00 AM EDT Appointment [facility] Echocardiography [address] [place] [address] Annita Holden, ELECTRICAL AND RADIO AIRCRAFT MECHANIC [address] [place] [address] [email or web address] 07/17/2025 11:00 AM EDT Office Visit [facility] Cardiac Transplant [address] [place] [address] Unknown, Unknown, MD documented as of this [...] to be COVID+, transferred to [facility] for further management. Assessment: Recent [...] AM EDT PHQ-2 Depression Total Score: 0 06/23/19 10:43 AM EST documented as of this encounter Care Teams Emergency Department Clinician Relationship Specialty Start Date End Date Dung Chen MD [address] [place] [address] PCP - General 08/21/14 Tia Granda NP [email or web address] Historical LMR Provider 08/30/14 02/21/21 Annita Watson MD [address] [place] [address] Neurosurgery 09/17/19 Carlos Alberto Stanford MD [address] [place] [address] Audit Practice Intern Internal Medicine 07/10/23 07/18/24 Han Hopkins MD, MARIA L [address] [place] [address] [email or web address] Interventional Radiology 07/10/23 Dung Chen MD [address] [place] [address] Internal Medicine 07/10/23 Norma Sanchez PA [address] [place] [address] Audit Practice Intern Physician [employer] Technology Teacher 07/18/24 documented as of this encounter Additional Source Comments The information contained in this document represents components of the legal health record. It is not the complete legal health record.[facility]
--- OUTSIDE RECORDS SUMMARY | 2025-03-05 21:14 | XMS_ITS | Encounter Summary ---
Author Organization [facility] Address [address] [place] [address] Phone Care Team Providers Care Dumpman Name Role Phone Dung Chen MD Primary Care Provider +- [phone] Tia Granda NP Unavailable [email or web address] Annita Watson MD Unavailable [phone] Carlos Alberto Stanford MD Unavailable [phone] Han Hopkins MD, MARIA L Unavailable Dung Chen MD Unavailable [phone] Norma Sanchez Unavailable [phone] Encounter Details Date Type Department Care Team (Late st Contact Info) Description 03/20/[address] [facility] Vascular Lab [address] [place] [address] Tia Granda NP [email or web address] Social History Tobacco Use Types Packs/Day Years [...] Pass [facility] Echocardiography [address] [place] [address] 07/17/2025 10:[address] [facility] Echocardiography [address] [place] [address] Annita Holden, PATIENT COORDINATOR [address] [place] [address] [email or web address] 07/17/2025 11:00 AM EDT Office Visit [facility] Cardiac Transplant [address] [place] [address] Unknown, Unknown, documented as of this encounter [...] documented as of this encounter Care Teams Dumpman Relationship Specialty Start Date End Date Dung Chen MD [address] [place] [address] PCP - General 08/21/14 Tia Granda NP [email or web address] Historical LMR Provider 08/30/14 02/21/21 Annita Watson MD [address] [place] [address] Neurosurgery 09/17/19 Carlos Alberto Stanford MD [address] [place] [address] Freelance Director Internal Medicine 07/10/23 07/18/24 Han Hopkins MD, MARIA L [address] [place] [address] [email or web address] Interventional Radiology 07/10/23 Dung Chen MD [address] [place] [address] Internal Medicine 07/10/23 Nomra Sanchez PA [address] [place] [address] Freelance Director Physician Employee Placement Specialist 07/18/24 documented as of this encounter Additional Source Comments The information contained in this document represents components of the legal health record. It is not the complete legal health record.[facility]
--- OUTSIDE RECORDS SUMMARY | 2025-03-05 21:14 | XMS_ITS | Encounter Summary ---
Author Organization [facility] Address [address] [place] [address] Phone Care Team Providers Care Technical Cable Jointer Name Role Phone Dung Chen MD Primary Care Provider +- [phone] Tia Granda NP Unavailable [email or web address] Annita Watson MD Unavailable [phone] Carlos Alberto Stanford MD Unavailable [phone] Han Hopkins MD, MARIA L Unavailable [phone] Dung Chen MD Unavailable [phone] Norma Sanchez Unavailable [phone] Encounter Details Date Type Department Care Team (Latest Contact Info) Description 12/14/2017 Transcribe Orders [facility] Clinic [address] [place] [address] Chuyita Holly [address] [place] [address] [email or web address] Heart replaced by transplant (Primary Dx); Chest pain, unspecified type Social History Tobacco Use Types Packs/Day Years [...] st Contact Info) Description 01/21/2025 Procedure Pass [facility] Echocardiography [address] [place] [address] 07/17/2025 10:00 AM EDT Appointment [facility] Echocardiography [address] [place] [address] Annita Holden, UNDERGROUND ROOF BOLTER [address] [place] [address] [email or web address] 07/17/2025 11:00 AM EDT Office Visit [facility] Cardiac Transplant [address] [place] [address] Unknown, Unknown, documented as of this encounter Results * TTE COMPREHENSIVE (12/14/2017 4:36 PM EDT) Left Ventricle Internal Diameter End Diastole 38 42 - 58 mm Left Ventricle Internal Diameter End Systole 23 25 - 40 mm Raw LV EF% 63 % Ejection Fraction 60 50 - 75 % Left Ventricular Mass 179.96 g Left Ventricle indexed to BSA 85.70 g/mL Relative Wall Thickness 0.64 0.22 - 0.42 Body Surface Area 2.1 m2 Aortic Sinus Diameter 29 mm Left Atrium Dimension Anterior-Posterior 44 15 - 40 mm Tricuspid Valve Peak Velocity 2.16 m/s Right Ventricle to Right Atrium Pressure Gradient 19 mmHg Height 175 cm Weight 93 kg Systolic BP 143 mmHg Diastolic BP 88 mmHg Ascending Aorta Diameter 36 mm Left Ventricular Posterior Wall Thickness 11 mm Interventricular Septum Thickness 11 mm Aortic Valve Sinus Index 1 14 20 - 32 mm Ascending Aorta Diameter 17 mm Aortic Sinus Index 14 mm Ascending Aorta Index 17 mm Anatomical Region Laterality Modality Heart [facility] Narrative 12/14/2017 5:54 PM EDT The study was technically difficult The left ventricular cavity size and wall thickness are normal. Left ventricular systolic function is normal. There are no segmental left ventricular wall motion abnormalities noted. The estimated ejection fraction is 60% The left atrium is enlarged due to cardiac transplant. Compared to a prior study from 05/04/2017, no important changes Left Ventricle The left ventricular cavity size and wall thickness are normal. Left ventricular systolic function is normal. There are no segmental left ventricular wall motion abnormalities noted. The estimated ejection fraction is 60% (Normal 50-75%). The left ventricular ejection fraction was measured by visual estimate. There is no evidence of left ventricular thrombus. Right Ventricle The right ventricular size is normal. The right ventricular systolic function is normal. Left Atrium The left atrium is dilated. The left atrium is enlarged due to cardiac transplant. Right Atrium The right atrium is normal in size. The IVC is normal in size (2.1cm or less). The IVC demonstrates normal collapse with inspiration which is consistent with normal RA pressure. Mitral Valve There is mild diffuse thickening of both mitral valve leaflets. There is trace mitral regurgitation detected by spectral and color Doppler. Tricuspid Valve The tricuspid valve appears normal. There is evidence of trace tricuspid regurgitation by color and spectral Doppler. Aortic Valve The aortic valve is tricuspid. There is mild thickening of multiple aortic leaflets. There is no evidence of valvular aortic stenosis. There is evidence of trace to mild aortic regurgitation by color and spectral Doppler. The jet is directed eccentrically. The visualized portions of the thoracic aorta appear normal. Pulmonic Valve The pulmonary valve appears normal. There is evidence of trace pulmonary regurgitation by color and spectral Doppler. The pulmonary artery appears normal. Pericardium There is no evidence of pericardial effusion. General Findings The study was technically difficult (4). Study quality explanation: body habitus. Technically limited subcostal window. Comparison Findings Compared to a prior study from 05/04/2017, no important changes. Tia Granda NP CV ECHO ORDERABLES Final R esult documented in this encounter Visit Diagnoses Diagnosis Heart replaced by transplant- Primary Chest pain, unspecified type Heart replaced by transplant Chest pain, unspecified type documented in this encounter Additional Health Concerns [...] was found to be COVID+, transferred to [facility] for further management. Assessment: Recent [...] AM EDT PHQ-2 Depression Total Score: 0 12/15/19 18 11:03 AM EDT documented as of this encounter Care Teams Technical Cable Jointer Relationship Specialty Start Date End Date Dung Chen MD [facility] [place] [address] PCP - General 08/21/14 Tia Granda NP [email or web address] Historical LMR Provider 08/30/14 02/21/21 Annita Watson MD [address] [place] [address] Neurosurgery 09/17/19 Carlos Alberto Stanford MD [address] [place] [address] [employer] Internal Medicine 07/10/23 07/18/24 Han Hopkins MD, MARIA L [address] [place] [address] [email or web address] Interventional Radiology 07/10/23 Dung Chen MD [facility] [place] [address] Internal Medicine 07/10/23 Norma Sanchez PA [facility] [address] [address] [employer] Physician Dairy Grazer 07/18/24 documented as of this encounter Additional Source Comments The information contained in this document represents components of the legal health record. It is not the complete legal health record.[facility]
--- OUTSIDE RECORDS SUMMARY | 2025-03-05 21:14 | XMS_ITS | Encounter Summary ---
Author Organization [facility] Address [address] [place] [address] Phone Care Team Providers Care Auto Brake Technician Name Role Phone Dung Chen MD Primary Care Provider [phone]- [phone] Tia Granda NP Unavailable [email or web address] Annita Watson MD Unavailable [phone] Carlos Alberto Stanford MD Unavailable [phone] Han Hopkins MD, MARIA L Unavailable Dung Chen MD Unavailable [phone] Norma Sanchez Unavailable [phone] Encounter Details Date Type Department Care Team (Latest Contact Info) Description 11/18/2014 Transcribe Orders [facility] Cardiac Transplant [address] [place] [address] Albina Glass [address] [place], [place] [id number] [email or web address] Congestive heart failure, unspecified (Primary [...] st Contact Info) Description 01/21/2025 Procedure Pass [facility] Echocardiography [address] [place] [address] 07/17/2025 10:00 AM EDT Appointment [facility] Echocardiography [address] [place] [address] Annita Holden, ASPHALT ENGINEER [address] [place] [address] [email or web address] 07/17/2025 11:00 AM EDT Office Visit [facility] Cardiac Transplant [address] [place] [address] Unknown, Jeaneth, documented as of this encounter [...] was found to be COVID+, transferred to [facility] for further management. Assessment: Recent [...] 06/23/2021 06/23/2021 06/25/2021 3:[address] documented as of this encounter Care Teams Auto Brake Technician Relationship Specialty Start Date End Date Dung Chen MD [address] [place] [address] PCP - General 08/21/14 Tia Granda NP [email or web address] Historical LMR Provider 08/30/14 02/21/21 Annita Watson MD [address] [place] [address] Neurosurgery 09/17/19 Carlos Alberto Stanford MD [address] [place] [address] Software Solutions Architect Internal Medicine 07/10/23 07/18/24 Han Hopkins MD, MARIA L [address] [place] [address] Interventional Radiology 07/10/23 Dung Chen MD [address] [place] [address] Internal Medicine 07/10/23 Norma Sanchez PA [address] [place] [address] Software Solutions Architect Physician Easement Worker 07/18/24 documented as of this encounter Additional Source Comments The information contained in this document represents components of the legal health record. It is not the complete legal health record.[facility]
--- OUTSIDE RECORDS SUMMARY | 2025-03-05 21:14 | XMS_ITS | Clinical Summary ---
Author Organization [facility] Address [address] [place] [address] Care Team Providers Care Mailroom Supervisor Name Role Phone Dung Chen MD Primary Care Provider [phone] Immunizations Immunization Administration Dates Next Due Pfizer SARS-CoV-2 COVID-19, mRNA, LNP-S, preservative free 06/13/2020,05/17/2020 Surgical History Surgery Date Site/Laterality Comments CORONARY ARTERY BYPASS GRAFT 1997 PROCEDURE: HISTORICAL CABG OTHER SURGICAL HISTORY 10/07/2011 PROCEDURE: ---- OTHER ----; COMMENT: teeth extracted OTHER SURGICAL HISTORY 01/2012 PROCEDURE: ---- OTHER ----; COMMENT: LVAD OTHER SURGICAL HISTORY 04/17/2013 PROCEDURE: CT HEART TRANSPLANT W/WO RECIPIENT CARDIECTOMY CATARACT EXTRACTION 09/18/2014 Right PROCEDURE: HISTORICAL CATARACT REMOVAL FLEXIBLE SIGMOIDOSCOPY 05/26/2008 PROCEDURE: HISTORICAL FLEXIBLE SIGMOIDOSCOPY; COMMENT: Negative to 50 cm COLONOSCOPY 10/03/2016 PROCEDURE: HISTORICAL COLONOSCOPY; COMMENT: 5 mm right colon polyp, random biopsies: Small tubular adenoma; random biopsies normal. UPPER GASTROINTESTINAL ENDOSCOPY 10/03/2016 PROCEDURE: CT UPPER GI ENDOSCOPY PERFORMED; COMMENT: Visually normal; [...] Type 2 diabetes mellitus wit h cataract ([facility] V24, [facility] V28) 09/15/2014 DX:Type 2 diabetes mellitus with cataract (HCC) Diabetic neuropathy ([facility] V24, [facility] V28) 10/11/2010 DX:Diabetic neuropathy (HCC) ; COMMENT: Polyneuropathy on EMG 2009 DM (diabetes mellitus), type 2 with renal complications ([facility] V24, [facility] V28) 05/04/2016 DX:DM (diabetes mellitus), t ype 2 with renal complications (HCC) 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 complication ([facility] V24, [facility] V28) 05/04/2016 DX: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) Diabetes mellitus ([facility] V 24, [facility] V28) DX:Diabetes mellitus (HCC) Heart disease DX:Heart disease Family [...] Date Last Done Comments Colorectal Cancer Screening: Colonoscopy 1950 Diabetes: Annual GFR (Glomerular Filtration Rate) 1950 Diabetes: Annual Foot Exam 09/30/1961 Diabetes: Annual Retina Eye Exam 09/30/1961 Zoster Vaccines (1 of 2) 09/30/1970 RSV Immunization Adult Patients (1 - Risk 50-74 years 1-dose series) 09/30/2001 Hepatitis B Vaccines (2 of 3 - 19+ 3-dose series) 04/24/2012 03/27/2012 Pneumococcal Vaccine: 50+ Years (3 of 3 - PCV) 01/23/2013 01/24/2012, 03/02/2004 COVID-19 Vaccine (3 - Pfizer risk series) 07/11/2020 06/13/2020, 05/17/2020 Abdominal Aortic Aneurysm (AAA) Screen 03/23/2022 Cholesterol Screening (Lipid Panel) 03/23/2022 Falls Risk Assessment 03/23/2022 Hepatitis C Screening 03/23/2022 Medicare Annual Wellness Visit 03/23/2022 Social Influencers of Health Screening 03/23/2022 DTaP,Tdap,and Td Vaccines (2 - Td or Tdap) 03/27/2022 03/27/2012 Diabetes: Annual Urine Albumin-Creatinine Ratio (uACR) 03/31/2022 Diabetes: Blood Sugar Control Test (HGBA1C) 03/31/2022 Depression Screening 04/17/2024 Influenza Vaccine (#1) 2024 2, 01/13/2020, 02/06/2019, Additional history exists Hepatitis [...] age to complete this topic Meningococcal B Vaccine Aged Out No l onger eligible based on patient's age to complete this topic RSV Immunization Patients Under 20 months Aged Out No longer eligible based on patient's age to complete this topic Varicella Vaccines Aged Out No longer eligible based on patient's age to complete this topic Advance Directives Documents on File Type Date Recorded Patient Vp Corporate Development Expl anation Health Care Decision (hx) 05/16/2023 [...] (hx) 09/23/2020 AD PIERCE DIRECTIVE Care Teams Mailroom Supervisor Relationship Specialty Start Date End Date Dung Chen MD PCP - General Internal Medicine 04/11/19
--- OUTSIDE RECORDS SUMMARY | 2025-03-05 21:14 | XMS_ITS | Encounter Summary ---
Author Organization [facility] Address [address] [place] [address] Phone Care Team Providers Care Toll Line Mechanic Name Role Phone Dung Chen MD Primary Care Provider [phone]- [phone] Tia Granda NP Unavailable [email or web address] Annita Watson MD Unavailable [phone] Carlos Alberto Stanford MD Unavailable [phone] Han Hopkins MD, MARIA L Unavailable Dung Chen MD Unavailable [phone] Norma Sanchez Unavailable [phone] Encounter Details Date Type Department Care Team (Late st Contact Info) Description 01/11/2018 Procedure Pass [facility] Radiology [address] [place] [address] Social History Tobacco Use Types Packs/Day Years [...] st Contact Info) Description 01/21/2025 Procedure Pass [facility] Echocardiography [address] [place] [address] 07/17/2025 10:00 AM EDT Appointment [facility] Echocardiography [address] [place] [address] Adina Annita Viri, SHRUB GROWER [address] [place] [address] [email or web address] 07/17/2025 11:00 AM EDT Office Visit [facility] Cardiac Transplant [address] [place] [address] Unknown, Unknown, documented as of this encounter [...] was found to be COVID+, transferred to [facility] for further management. Assessment: Recent swabs [...] documented as of this encounter Care Teams Toll Line Mechanic Relationship Specialty Start Date End Date Dung Chen MD [address] [place] [address] PCP - General 08/21/14 Tia Granda NP [email or web address] Historical LMR Provider 08/30/14 02/21/21 Annita Watson MD [address] [place] [address] Neurosurgery 09/17/19 Carlos Alberto Stanford MD [address] [place] [address] Physician/Internist Internal Medicine 07/10/23 07/18/24 Han Hopkins MD, MARIA L [address] [place] [address] Interventional Radiology 07/10/23 Dung Chen MD [address] [place] [address] Internal Medicine 07/10/23 Norma Sanchez PA [address] [place] [address] Physician/Internist Physician Syrup Shed Supervisor 07/18/24 documented as of this encounter Additional Source Comments The information contained in this document represents components of the legal health record. It is not the complete legal health record.[facility]
--- OUTSIDE RECORDS SUMMARY | 2025-03-05 21:14 | XMS_ITS | Encounter Summary ---
Author Organization [facility] Address [address] [place] [address] Phone Care Team Providers Care Brick Machine Operator Name Role Phone Dung Chen MD Primary Care Provider +- [phone] Tia Granda NP Unavailable [email or web address] Annita Watosn MD Unavailable [phone] Carlos Alberto Stanford MD Unavailable [phone] Han Hopkins MD, MARIA L Unavailable [phone] Dung Chen MD Unavailable [phone] Norma Sanchez Unavailable [phone] Encounter Details Date Type Department Care Team (Late st Contact Info) Description 01/11/2018 Procedure Pass [facility] Radiology [address] [place] [address] Social History Tobacco Use Types Packs/Day Years [...] Contact Info) Description 01/21/2025 Procedure Pass [facility] Echocardiography [address] [place] [address] 07/17/2025 10:00 AM EDT Appointment [facility] Echocardiography [address] [place] [address] Adina Annita Viri, SUPPLY CHAIN PROCUREMENT MANAGER [address] [place] [address] [email or web address] 07/17/2025 11:00 AM EDT Office Visit [facility] Cardiac Transplant [address] [place] [address] Unknown, Unknown, documented as of this encounter [...] found to be COVID+, transferred to [facility] for further management. Assessment: Recent swabs [...] documented as of this encounter Care Teams Brick Machine Operator Relationship Specialty Start Date End Date Dung Chen MD [address] [place] [address] PCP - General 08/21/14 Tia Granda NP [email or web address] Historical LMR Provider 08/30/14 02/21/21 Annita Watson MD [address] [place] [address] Neurosurgery 09/17/19 Carlos Alberto Stanford MD [address] [place] [address] Motor Checker Internal Medicine 07/10/23 07/18/24 Han Hopkins MD, MARIA L [address] [place] [address] Interventional Radiology 07/10/23 Dung Chen MD [address] [place] [address] Internal Medicine 07/10/23 Norma Sanchez PA [address] [place] [address] Motor Checker Physician Client Service Executive 07/18/24 documented as of this encounter Additional Source Comments The information contained in this document represents components of the legal health record. It is not the complete legal health record.[facility]
--- OUTSIDE RECORDS SUMMARY | 2025-03-05 21:14 | XMS_ITS | Encounter Summary ---
Author Organization [facility] Address [address] [place] [address] Phone Care Team Providers Care Stone Carver Name Role Phone Dung Chen MD Primary Care Provider [phone] Tia Granda NP Unavailable [email or web address] Annita Watson MD Unavailable [phone] Carlos Alberto Stanford MD Unavailable [phone] Han Hopkins MD, MARIA L Unavailable [phone] Dung Chen MD Unavailable [phone] Norma Sanchez Unavailable [phone] Reason for Referral * Outpatient Procedure - Closed Specialty Diagnoses / Procedures Referred By Contac t Referred To Contact Diagnoses Heart replaced by transplant Procedures Adult Echo TTE Faisal Perez MD Phone: tel: fax: Referral ID Status Reason Start Date Expiration Date Visits Re quested Visits Authorized [id number] Closed 12/20/2017 12/20/2018 1 1 Encounter Details Date Type Department Care Team (Latest Contact Info) Description 12/20/2017 Transcribe Orders [facility] [address] [place] [address] Chuyita Holly [address] [place] [address] [email or web address] Heart replaced by transplant (Primary Dx) Social [...] st Contact Info) Description 01/21/2025 Procedure Pass [facility] Echocardiography [address] [place] [address] 07/17/2025 10:00 AM EDT Appointment [facility] Echocardiography [address] [place] [address] Annita Holden, COMPANY MANAGER [address] [place] [address] [email or web address] 07/17/2025 11:00 AM EDT Office Visit [facility] Cardiac Transplant [address] [place] [address] Unknown, Unknown, documented as of this encounter Results * XR CHEST PA AND LATERAL 2 VIEWS (09/17/2018 11:34 AM EDT) Anatomical Region Laterality Modality Chest Computed Radiogr aphy 09/17/2018 2:43 PM EDT Impressions 09/17/2018 2:43 PM EDT See findings. Narrative 09/17/2018 2:43 PM EDT Reason for exam (per EHR order): + HEART FAILURE (CHF) [KNOWN DX] TECHNIQUE: Frontal and lateral radiographs of the chest. COMPARISON: PA and lateral chest films dated 04/25/2016. FINDINGS: Support Devices / Implants / Lines and Tubes: None. Lungs and Pleura: The lungs are clear with no focal consolidation. No evidence of pulmonary edema. No pleural effusion. No pneumothorax or displaced rib fractures. Cardiomediastinal Silhouette: Expected post surgical changes following median sternotomy and cardiac surgery. Miscellaneous Findings: None. Procedure Note Nazanin Conte MD - 09/17/2018 Reason for exam (per EHR order): + HEART FAILURE (CHF) [KNOWN DX] TECHNIQUE: Frontal and lateral radiographs of the chest. COMPARISON: PA and lateral chest films dated 04/25/2016. FINDINGS: Support Devices / Implants / Lines and Tubes: None. Lungs and Pleura: The lungs are clear with no focal consolidation. Noevidence of pulmonary edema. No pleural effusion. No pneumothorax or displacedrib fractures. Cardiomediastinal Silhouette: Expected post surgical changes followingmedian sternotomy and cardiac surgery. Miscellaneous Findings: None. IMPRESSION: See findings. us Faisal Perez MD IMG XR CHEST Final Result * TTE COMPREHENSIVE (03/19/2018 10:23 AM EST) Left Ventricle Internal Diameter End Diastole 44 42 - 58 mm Left Ventricle Internal Diameter End Systole 30 25 - 40 mm Raw LV EF% 54 % Ejection Fraction 65 50 - 75 % Left Ventricular Mass 183.56 g Left Ventricle indexed to BSA 91.78 g/mL Relative Wall Thickness 0.49 0.22 - 0.42 Body Surface Area 2.0 m2 Aortic Sinus Diameter 31 mm Tricuspid Valve Peak Gradient 18.66 mmhg Tricuspid Valve Peak Velocity 2.16 m/s Right Ventricle Peak Systolic Pressure 24 mmHg Right Ventricle Estimated PA Pressure 27.90 mmHg Right Atrium Pressure Estimated 5 mmHg Right Ventricle to Right Atrium Pressure Gradient 19 mmHg Height 175 cm Weight 86 kg Systolic BP 108 mmHg Diastolic BP 67 mmHg Ascending Aorta Diameter 31 mm Left Ventricular Posterior Wall Thickness 11 mm Interventricular Septum Thickness 12 mm Aortic Valve Sinus Index 1 16 20 - 32 mm Ascending Aorta Diameter 16 mm Aortic Sinus Index 16 mm Ascending Aorta Index 16 mm Left Atrium Dimension Anterior-Posterior 48 15 - 40 mm Anatomical Region Laterality Modality Heart [facility] Narrative 03/19/2018 1:44 PM EST Left Ventricle The left ventricular cavity size and wall thickness are normal. Left ventricular systolic function is normal. There are no segmental left ventricular wall motion abnormalities noted. The estimated ejection fraction is 65% (Normal 50-75%). The left ventricular ejection fraction was measured by visual estimate. Right Ventricle The right ventricular size is normal. The right ventricular systolic function is normal. Left Atrium The left atrium is enlarged due to cardiac transplant. The left atrial anterior-posterior dimension measures 48 mm (normal 15-40 mm). Right Atrium The right atrium is normal in size. The IVC is normal in size (2.1cm or less). The IVC demonstrates normal collapse with inspiration which is consistent with normal RA pressure. Mitral Valve There is mild diffuse thickening of both mitral valve leaflets. There is trace to mild mitral regurgitation detected by spectral and color Doppler. Tricuspid Valve The tricuspid valve appears normal. There is evidence of trace tricuspid regurgitation by color and spectral Doppler. The RV systolic pressure was estimated from the peak TV regurgitant velocity. The estimated RV systolic pressure is 24 mmHg assuming a right atrial pressure of [...] evidence of pericardial effusion. General Findings The image quality was fair (3). Comparison Findings Compared to a prior TTE from 12/14/2017 no important changes. Faisal Perez MD CV ECHO ORDERABLES Final Resul t documented in this encounter Visit Diagnoses Diagnosis [...] was found to be COVID+, transferred to [facility] for further management. Assessment: Recent [...] documented as of this encounter Care Teams Stone Carver Relationship Specialty Start Date End Date Dung Chen MD [address] [place] [address] PCP - General 08/21/14 Tia Granda NP [email or web address] Historical LMR Provider 08/30/14 02/21/21 Annita Watson MD [address] [place] [address] Neurosurgery 09/17/19 Carlos Alberto Stanford MD [address] [place] [address] Gold Leaf Printer Internal Medicine 07/10/23 07/18/24 Han Hopkins MD, MARIA L [address] [place] [address] Interventional Radiology 07/10/23 Dung Chen MD [address] [place] [address] Internal Medicine 07/10/23 Norma Sanchez PA [address] [place] [address] Gold Leaf Printer Physician Battery Service Technician 07/18/24 documented as of this encounter Additional Source Comments The information contained in this document represents components of the legal health record. It is not the complete legal health record.[facility]
--- OUTSIDE RECORDS SUMMARY | 2025-03-05 21:14 | XMS_ITS | Encounter Summary ---
Author Organization [facility] Address [address] [place] [address] Phone Care Team Providers Care Developmental Training Counselor Name Role Phone Dung Chen MD Primary Care Provider [phone]- [phone] Tia Granda NP Unavailable [email or web address] Annita Watson MD Unavailable [phone] Carlos Alberto Stanford MD Unavailable [phone] Han Hopkins MD, MARIA L Unavailable [phone] Dung Chen MD Unavailable [phone] Norma Sanchez Unavailable [phone] Encounter Details Date Type Department Care Team (Late st Contact Info) Description 06/22/2018 Procedure Pass [facility] [address] [place] [address] Social History Tobacco Use Types Packs/Day Years [...] st Contact Info) Description 01/21/2025 Procedure Pass [facility] Echocardiography [address] [place] [address] 07/17/2025 10:00 AM EDT Appointment [facility] Echocardiography [address] [place] [address] Annita Holden, VIRTUAL ASSISTANT FOR ADVERTISERS [address] [place] [address] [email or web address] 07/17/2025 11:00 AM EDT Office Visit [facility] Cardiac Transplant [address] [place] [address] Unknown, Unknown, MD documented as of this [...] was found to be COVID+, transferred to [facility] for further management. Assessment: Recent swabs [...] documented as of this encounter Care Teams Developmental Training Counselor Relationship Specialty Start Date End Date Dung Chen MD [address] [place] [address] PCP - General 08/21/14 Tia Granda NP [email or web address] Historical LMR Provider 08/30/14 02/21/21 Annita Watson MD [address] [place] [address] Neurosurgery 09/17/19 Carlos Alberto Stanford MD [address] [place] [address] Parts Clerk Plant Maintenance Internal Medicine 07/10/23 07/18/24 Han Hopkins MD, MARIA L [address] [place] [address] [email or web address] Interventional Radiology 07/10/23 Dung Chen MD [address] [place] [address] Internal Medicine 07/10/23 Norma Sanchez PA [address] [place] [address] Parts Clerk Plant Maintenance Physician Clinical Psychiatrist 07/18/24 documented as of this encounter Additional Source Comments The information contained in this document represents components of the legal health record. It is not the complete legal health record.[facility]
--- OUTSIDE RECORDS SUMMARY | 2025-03-05 21:14 | XMS_ITS | Encounter Summary ---
Author Organization [facility] Address [address] [place] [address] Phone Care Team Providers Care Sensitizer Name Role Phone Dung Chen MD Primary Care Provider +- [phone] Tia Granda NP Unavailable [email or web address] Annita Watson MD Unavailable [phone] Carlos Alberto Stanford MD Unavailable [phone] Han Hopkins MD, MARIA L Unavailable [phone] Dung Chen MD Unavailable [phone] Norma Sanchez Unavailable [phone] Encounter Details Date Type Department Care Team (Late st Contact Info) Description 07/19/2018 Procedure Pass [facility] Cardiac Slot Floor Person [address] [place] [address] Social History Tobacco Use Types Packs/Day Years [...] st Contact Info) Description 01/21/2025 Procedure Pass [facility] Echocardiography [address] [place] [address] 07/17/2025 10:00 AM EDT Appointment [facility] Echocardiography [address] [place] [address] Annita Holden, NURSE MIDWIFE/CLINICAL INSTRUCTOR [address] [place] [address] [email or web address] 07/17/2025 11:00 AM EDT Office Visit [facility] Cardiac Transplant [address] [place] [address] Unknown, Unknown, MD documented as of this [...] was found to be COVID+, transferred to [facility] for further management. Assessment: Recent [...] EDT PHQ-2 Depression Total Score: 0 06/23/19 19 10:43 AM EST documented as of this encounter Care Teams Sensitizer Relationship Specialty Start Date End Date Dung Chen MD [address] [place] [address] PCP - General 08/21/14 Tia Granda NP [email or web address] Historical LMR Provider 08/30/14 02/21/21 Annita Watson MD [address] [place] [address] Neurosurgery 09/17/19 Carlos Alberto Stanford MD [address] [place] [address] Timber Framer Internal Medicine 07/10/23 07/18/24 Han Hopkins MD, MARIA L [address] [place] [address] [email or web address] Interventional Radiology 07/10/23 Dung Chen MD [address] [place] [address] Internal Medicine 07/10/23 Norma Sanchez PA [address] [place] [address] Timber Framer Physician Retail Event Coordinator 07/18/24 documented as of this encounter Additional Source Comments The information contained in this document represents components of the legal health record. It is not the complete legal health record.[facility]
--- OUTSIDE RECORDS SUMMARY | 2025-03-05 21:14 | XMS_ITS | Encounter Summary ---
Author Organization [facility] Address [address] [place] [address] Phone Care Team Providers Care Member Of Congress Name Role Phone Dung Chen MD Primary Care Provider +- [phone] Tia Granda NP Unavailable [email or web address] Annita Watson MD Unavailable [phone] Carlos Alberto Stanford MD Unavailable [phone] Han Hopkins MD, MARIA L Unavailable [phone] Dung Chen MD Unavailable [phone] Norma Sanchez Unavailable [phone] Encounter Details Date Type Department Care Team (Late st Contact Info) Description 08/30/2017 Telephone [facility] Cardiac A&P Technician [address] [place] [address] Chelsey Valdes MD [facility] [place] [address] Social History Tobacco Use Types Packs/Day Years [...] st Contact Info) Description 01/21/2025 Procedure Pass [facility] Echocardiography [address] [place] [address] 07/17/2025 10:00 AM EDT Appointment [facility] Echocardiography [address] [place] [address] Annita Holden, DENTAL PATIENT COORDINATOR [address] [place] [address] [email or web address] 07/17/2025 11:00 AM EDT Office Visit [facility] Cardiac Transplant [address] [place] [address] Unknown, Unknown, documented as of this encounter [...] was found to be COVID+, transferred to [facility] for further management. Assessment: Recent swabs [...] documented as of this encounter Care Teams Member Of Congress Relationship Specialty Start Date End Date Dung Chen MD [address] [place] [address] PCP - General 08/21/14 Tia Granda NP [email or web address] Historical LMR Provider 08/30/14 02/21/21 Annita Watson MD [address] [place] [address] Neurosurgery 09/17/19 Carlos Alberto Stanford MD [address] [place] [address] Hat Body Inspector Internal Medicine 07/10/23 07/18/24 Han Hopkins MD, MARIA L [address] [place] [address] [email or web address] Interventional Radiology 07/10/23 Dung Chen MD [address] [place] [address] Internal Medicine 07/10/23 Norma Sanchez PA [address] [place] [address] Hat Body Inspector Physician Cv Rn 07/18/24 documented as of this encounter Additional Source Comments The information contained in this document represents components of the legal health record. It is not the complete legal health record.[facility]
--- OUTSIDE RECORDS SUMMARY | 2025-03-05 21:14 | XMS_ITS ---
Author Organization [facility] Address [address] [address] Phone Care Team Providers Care Assessment Services Manager Name Role Phone Dnug Chen MD Primary Care Provider [phone] Annita Watson MD Unavailable Han Hopkins MD, MARIA L Unavailable Dung Chen MD Unavailable [phone] Norma Sanchez Unavailable [phone] Transplant Episode Heart Recipient [facility] ([place], [place]) - [facility] Organ Received: Heart Transplanted on 04/16/2013 Marked as Active Follow-up on 04/16/2013 Heart CoordinatorXiomara Finnegan RN Email: [email or web address] [place] Organ Diagnosis 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 Survival Rejection Treatment Biopsy Resolved 05/20/2013 34 days Transplanted organ rejection Infection History Noted Survival Infection Treatment Organism Resolved 06/23/2021 8 years 2 months COVID-19 12/14/2017 4 years 7 months Tuberculosis Donor Information Organ ABO Source Meets Risk Criteria HLA Match Mismatches Cross Match Heart Transplanted A DBD No A: B: DR: Heart Donor Serology Results Anti-CMV CMV IgG: Negative EBV IgG EBV VCA IgG: Positive Anti-HBcAb HBC Total: Negative Anti-HIV I/II HIV Ab: Negative Anti-HTLV I/II HTLV: Not Done RPR/VDRL RPR: Negative HBsAb No results on file EBNA No results on file Anti-HCV HCV Ab: Negative HBsAg HBsAg: Negative HBV DNA No results on file EBV IgM EBV VCA IgM: Negative Toxoplasma No results on file Anti-Tetan us No results on file Varicella Zoster No results on file Measles No results on file Mumps No results on file Quantiferon TB No results on file HSV 1 No results on file HSV 2 No results on file HSV RNA No results on file EBV (historical ) No results on file HCV SURENDRA No results on file HIV SURENDRA No results on file HBV SURENDRA No results on file SARS CoV-2 No results on file Care Team Name Role Phone Fax Email Xiomara Finnegan RN Testing Machine Operator [phone] [email or web address] Annita Holden CNP Nurse Practitioner [phone] [email or web address] Post-Transplant Pre-Transplant Admitted: 04/16/2013 Evaluation began: 07/20/2011 Transplanted: 04/16/2013 Committee: 01/04/2012 Discharged: 05/10/2013 Center waitlisted: 2
--- OUTSIDE RECORDS SUMMARY | 2025-03-05 21:14 | XMS_ITS | Encounter Summary ---
Author Organization [facility] Address [address] [place] [address] Phone Care Team Providers Care Customs Compliance Director Name Role Phone Dung Chen MD Primary Care Provider +- [phone] Tia Granda NP Unavailable [email or web address] Annita Watson MD Unavailable [phone] Carlos Alberto Stanford MD Unavailable [phone] Han Hopkins MD, MARIA L Unavailable Dung Chen MD Unavailable [phone] Norma Sanchez Unavailable [phone] Encounter Details Date Type Department Care Team (Late st Contact Info) Description 06/22/2018 Procedure Pass [facility] [address] [place] [address] Social History Tobacco Use Types Packs/Day Years [...] st Contact Info) Description 01/21/2025 Procedure Pass [facility] Echocardiography [address] [place] [address] 07/17/2025 10:00 AM EDT Appointment [facility] Echocardiography [address] [place] [address] Annita Holden, RECREATIONAL VEHICLE REPAIRER [address] [place] [address] [email or web address] 07/17/2025 11:00 AM EDT Office Visit [facility] Cardiac Transplant [address] [place] [address] Unknown, Unknown, MD documented as of this [...] was found to be COVID+, transferred to [facility] for further management. Assessment: Recent [...] documented as of this encounter Care Teams Customs Compliance Director Relationship Specialty Start Date End Date Dung Chen MD [address] [place] [address] PCP - General 08/21/14 Tia Granda NP [email or web address] Historical LMR Provider 08/30/14 02/21/21 Annita Watson MD [address] [place] [address] Neurosurgery 09/17/19 Carlos Alberto Stanford MD [address] [place] [address] Adjunct Mathematics Instructor Internal Medicine 07/10/23 07/18/24 Han Hopkins MD, MARIA L [address] [place] [address] [email or web address] Interventional Radiology 07/10/23 Dung Chen MD [address] [place] [address] Internal Medicine 07/10/23 Norma Sanchez PA [address] [place] [address] Adjunct Mathematics Instructor Physician Copyist 07/18/24 documented as of this encounter Additional Source Comments The information contained in this document represents components of the legal health record. It is not the complete legal health record.[facility]
== END 2025-03-05 11:19 | disposition home or self-care (01) ==
LOC: HO.HOS 10:47
PROVIDERS: PCP Internal Medicine; Visit Provider Orthopaedic Surgery
DX: M75.42 Impingement syndrome of left shoulder (principal)
CPT/HCPCS: 20610; 99213

== ENCOUNTER → 2025-03-05 10:46 | Outpatient (BNVA) | payer MEDICARE, SELFPAY | PROVIDERS: PCP Internal Medicine; Visit Provider Orthopaedic Surgery | DX: M75.42 Impingement syndrome of left shoulder (principal) | CPT/HCPCS: 20610; 99212; J1010; J2003 ==